=== PATIENT | male | born 1940 | race Caucasian/White ===

== ENCOUNTER 2023-03-20 14:28 | Outpatient (OUT) | payer MEDICARE, SELFPAY ==
[2023-03-20 14:46] LABS: Basophils Absolute Auto 0.1 10^3/uL (0.0-0.1); Basophils Percent Auto 0.7 % (0.2-2.0); Eosinophils Absolute Auto 0.4 10^3/uL (0.0-0.7); Eosinophils Percent Auto 5.5 % (0.9-7.0); Hematocrit 40.3 % (42.0-54.0); Hemoglobin 12.6 g/dL (14.0-18.0); Immature Granulocytes Abs Auto 0.02 10^3/uL (0.00-0.03); Immature Granulocytes Pct Auto 0.3 % (0.0-0.5); Lymphocytes Absolute Auto 2.4 10^3/uL (1.2-3.8); Lymphocytes Percent Auto 32.4 % (20.5-60.0); Mean Corpuscular HGB Conc 31.3 g/dL (29.9-35.2); Monocytes Absolute Auto 0.8 10^3/uL (0.3-0.8); Monocytes Percent Auto 11.2 % (1.7-12.0); Neutrophils Absolute Auto 3.7 10^3/uL (1.4-6.5); Neutrophils Percent Auto 49.9 % (43.0-75.0); Platelet Count 219 10^3/uL (150-450); Red Cell Distribution Width 14.2 % (11.0-15.0); White Blood Count 7.4 10^3/uL (4.0-11.0)
[2023-03-20 15:21] LABS: Alanine Aminotransferase 22 U/L (16-63); Alkaline Phosphatase 93 U/L (46-116); Aspartate Amino Transferase 12 U/L (15-37); BUN Creatinine Ratio 19.6; Bilirubin Total 0.3 mg/dL (0.2-1.0); Calcium 9.3 mg/dL (8.5-10.1); Chloride 105 mmol/L (98-107); Chol HDL Ratio 2.5; Cholesterol 154 mg/dL (<=200); Estimated GFR (African America 36 (>=60); Estimated GFR (Non-African Ame 30 (>=60); Globulin 4.1 g/dL; Glucose 93 mg/dL (74-106); HDL Cholesterol 61 mg/dL (40-60); Sodium 140 mmol/L (136-145); Thyroid Stimulating Hormone 2.141 uIU/mL (0.358-3.740); Total Protein 8.1 g/dL (6.4-8.2); Triglycerides 82 mg/dL (<=150); VLDL CHOLESTEROL 16.4 mg/dL
[2023-03-20 15:23] LABS: Free T4 1.01 ng/dL (0.76-1.46)
== END 2023-03-20 14:29 | disposition home or self-care (01) ==
PROVIDERS: PCP Family Medicine; Visit Provider Family Medicine
DX: K59.00 Constipation, unspecified (principal); Z91.81 History of falling; E78.5 Hyperlipidemia, unspecified; I50.30 Unspecified diastolic (congestive) heart failure; I11.0 Hypertensive heart disease with heart failure
CPT/HCPCS: 36415; 80053; 80061; 83880; 84439; 84443; 85025

== ENCOUNTER 2023-04-06 16:49 | Outpatient (OUT) | payer MEDICARE, SELFPAY ==
[2023-04-06 17:41] LABS: Anion Gap 12.9; BUN Creatinine Ratio 16.9; Calcium 9.2 mg/dL (8.5-10.1); Chloride 105 mmol/L (98-107); Estimated GFR (African America 29 (>=60); Estimated GFR (Non-African Ame 24 (>=60); Glucose 99 mg/dL (74-106); Potassium 4.9 mmol/L (3.5-5.1); Sodium 141 mmol/L (136-145)
== END 2023-04-06 16:50 | disposition home or self-care (01) ==
LOC: LAB 16:53
PROVIDERS: PCP Family Medicine; Visit Provider Family Medicine
DX: N28.9 Disorder of kidney and ureter, unspecified (principal)
CPT/HCPCS: 36415; 80048

== ENCOUNTER 2023-04-27 11:51 | Outpatient (OUT) | payer MEDICARE, SELFPAY ==
--- NOTE | 2023-04-27 12:22 | CT_ITS ---
The [address] [address] Patient Name: LEANNA NGUYỄN MRN: [id number] date: 1940 Sex: M Assigned Patient Location: LAB Current Patient Location: LAB Accession/Order Number: [id number] Exam Date: 04/27/2023 13:13 Report Date: 04/27/2023 14:56 At the request of: PIPE JEFFERS Procedure: CT abdomen wo con EXAMINATION: CT abdomen wo con HISTORY: Other Specific Disorder Of Kidney And Ureter N28.89 ; right renal mass COMPARISON: CT abdomen pelvis 07/03/2022, 06/17/2017 TECHNIQUE: Axial, Coronal, and Sagittal images were obtained without and/or with IV contrast as indicated by examination type. Dose reduction techniques were achieved by using automated exposure control and/or adjustment of mA and/or kV according to patient size and/or use of iterative reconstruction technique FINDINGS: LUNG BASES: No visible pulmonary or pleural disease. LIVER: Numerous calcifications throughout compatible with chronic granulomatous disease. BILIARY: No visible dilatation or calcification. PANCREAS: 2.3 cm mass versus complex cyst projecting from tip of tail of pancreas. SPLEEN: Numerous calcifications consistent with chronic granulomatous disease. ADRENALS: No mass or enlargement. KIDNEYS: No appreciable mass. No, obstruction or calcification. BOWEL/MESENTERY: No visible mass, obstruction, or bowel wall thickening. AORTA/VASCULAR: No aneurysm or dissection. RETROPERITONEUM: No mass or adenopathy. ABDOMINAL WALL: No mass or hernia. BONES: No bony lesion or fracture. OTHER: Negative. CT/CT abdomen wo con IMPRESSION: 1. Evaluation is limited by lack of IV contrast (patient had elevated creatinine). 2. No appreciable renal mass or urinary tract calculi. 3. Very slowly increasing size of a mass versus complex cyst arising from tip of tail of pancreas; nonspecific but this favors benign etiology (2.3 cm today, 2.2 cm 07/03/2022, 1.9 cm 06/17/2017). Electronically authenticated by: LEATHA GAVIRIA Date: 04/27/2023 14:56
[2023-04-27 12:47] LABS: Estimated GFR (African America 34 (>=60); Estimated GFR (Non-African Ame 28 (>=60)
== END 2023-04-27 11:52 | disposition home or self-care (01) ==
LOC: LAB 11:52
PROVIDERS: PCP Family Medicine; Visit Provider Family Medicine
DX: N28.89 Other specified disorders of kidney and ureter (principal); H90.41 Sensorineural hearing loss, unilateral, right ear, with unrestricted hearing on the contralateral side
CPT/HCPCS: 36415; 74150; 82565

== ENCOUNTER 2023-07-16 14:12 | Outpatient (OUT) | payer MEDICARE, SELFPAY ==
--- OUTSIDE RECORDS SUMMARY | 2023-07-16 14:19 | XMS_ITS | CCD ---
Author Name Unknown Address [address] [place] [address] Organization [facility] Care Team Providers Care Contract Negotiation Specialist Name Role Phone PHYSICIAN, DEFAULT Unavailable Unavailable PHYSICIAN, DEFAULT Unavailable Unavailable EVELIA, SUNJUK Unavailable Unavailable EVELIA, SUNJUK Unavailable Unavailable EVELIA, SUNJUK Unavailable Unavailable Pipe Hopkins~[phone] UNKNOWN Unavailable Unavailable Pipe Hopkins MD Primary Care Provider [phone] [place] Unavailable PIPE HOPKINS Primary Care Unavailable JODI BANERJEE Referring Unavailab DR PIPE Liang Consulting Unavailable FAWWAD, KAMARA H Admitting Unavailable FAWWAD, KAMARA H Attending Unavailable HODiana ., DR BETANCUR Primary Care Unavailable PAY ., DR HUDSON Consulting Unavailable MICHELLE BOO Consulting Unavailable STEPHEN ROUSE Consulting Unavailable ABIDA TOTH Consulting Unavailable KOKO ROMANO Consulting Unavailable FAWWAD, KAMARA H Consulting Unavailable BERNADETTE BEDOLLA Consulting Unavailable FAROOQ SIMPSON Consulting Unavailable AURY ., DR BETANCUR Attending Unavailable HOY ., DR BETANCUR Admitting Unavailable HOY ., DR BETANCUR Consulting Unavailable HOY ., DR BETANCUR Primary Care Unavailable ZILEONARD, DR LEATHA Workman Consulting Unavailable HOY ., DR BETANCUR Admitting Unavailable HOY ., DR BETANCUR Consulting Unavailable AURY ., DR BETANCUR Attending Unavailable HOY ., DR BETANCUR Primary Care Unavailable HOY ., DR BETANCUR Admitting Unavailable HOY ., DR BETANCUR Attending Unavailable HOY ., DR BETANCUR Consulting Unavailable AURY ., DR BETANCUR Primary Care Unavailable ZILEONARD, DR LEATHA Workman Consulting Unavailable HOY ., DR BETANCUR Attending Unavailable HOY ., DR BETANCUR Consulting Unavailable HOY ., DR BETANCUR Primary Care Unavailable HOY ., DR BETANCUR Admitting Unavailable HOY ., DR BETANCUR Attending Unavailable HOY ., DR BETANCUR Primary Care Unavailable HOY ., DR BETANCUR Admitting Unavailable HOY ., DR BETANCUR Attending Unavailable HOY ., DR BETANCUR Primary Care Unavailable HOY ., DR BETANCUR Admitting Unavailable HOY ., DR BETANCUR Attending Unavailable HOY ., DR BETANCUR Primary Care Unavailable HOY ., DR BETANCUR Admitting Unavailable Pipe Hopkins MD Primary Care Provider [phone] Gene[place] Lou Unavailable JODI BANERJEE Attending PIPE Rascon Primary Care Unavailable JODI BANERJEE Attending PIPE Rascon Primary Care Unavailable AYSE BARNES Attending Unavailable IRINEO BOSS Attending Unavailable AYSE BARNES Attending Unavailable Allergies Allergy Classification Reported Allergen(s) Allergy Type Date of Onset Reaction(s) Facility (2 sources) atorvastatin; Translations: [Lipitor] Drug Allergy [facility] Repository (5 sources) atorvastatin; Translations: [ATORVASTATIN CALCIUM] Drug Allergy 03-28-2014 [facility] (1 source) atorvastatin; Translations: [ATORVASTATIN] Drug Allergy 03-28-2014 [facility] Repository Medications Completed/Discontinued Medications Medication Drug Class(es) Dates Sig (Normalized) Sig (Original) Acetaminophen (3 sources) ACETAMINOPHEN (TYLENOL 8 HOUR ORAL) Take by mouth as needed. 0 Active Comment on above: Take by mouth as nee ded. aspirin 81 mg delayed release oral tablet (3 sources) Platelet Aggregation Inhibitor, Nonsteroidal Anti-inflammatory Drug Start: 06-02-2011 take 1 tablet by mouth once daily aspirin, enteric coated (ASPIRIN, ENTERIC COATED) 81 mg EC tablet Take 81 mg by mouth once daily. 0 06/02/2011 Active Comment on above: Take 81 mg by mouth once daily. celecoxib 100 mg oral capsule (2 sources) Nonsteroidal Anti-inflammatory Drug End: 03-23-2023 take 1 capsule by mouth once daily celecoxib (CELEBREX) 100 mg capsule Take 100 mg by mouth once daily. 0 03/23/2023 Discontinued Comment on above: Take 100 mg by mouth once daily. furosemide 20 mg oral tablet (3 sources) Loop Diuretic Start: 02-09-2019 take 1 tablet by mouth once daily furosemide (LASIX) 20 mg tablet Take 1 tablet by mouth once daily for 14 days. 14 tablet 0 02/09/2019 Active Comment on above: Take 1 tablet by shyla once daily for 14 days. levothyroxine sodium 0.1 mg oral tablet (3 sources) l-Thyroxine Start: 06-09-2011 take 1 tablet by mouth once daily levothyroxine (SYNTHROID) 100 mcg tablet Take 1 tablet by mouth once daily. 0 06/09/2011 Active Comment on above: Take 1 tablet by shyla once daily. liothyronine sodium 0.005 mg oral tablet (3 sources) l-Triiodothyronine take 1 tablet by mouth once daily liothyronine (CYTOMEL) 5 mcg tablet Take 5 mcg by mouth once daily. 0 Active Comment on above: Take 5 mcg by mouth once daily. multivitamin with minerals (MULTI-VIT 55 PLUS ORAL) (2 sources) take 1 tablet by mouth once daily multivitamin with minerals (MULTI-VIT 55 PLUS ORAL) Take 1 tablet by mouth once daily. 0 Active Comment on above: Take 1 tablet by shyla once daily. Problems Active Problems Problem Classification Problem Date Documented Da te Episodic/Chronic Cardiac dysrhythmias (4 sources) Ventricular premature depolarization; Translations: [Atrial premature depolarization] Onset: 09-22-2022 Chronic Cataract (1 source) Presence of intraocular lens; Translations: [PRESENCE OF INTRAOCULAR LENS] Onset: 07-14-2022 Chronic Chronic kidney disease (1 source) Chronic kidney disease, stage 4 (severe); Translations: [CKD STAGE 4 SEVERE] Onset: 07-14-2022 Chronic Chronic kidney disease (2 sources) Chronic kidney disease; Translations: [Chronic kidney disease, stage 3b] Onset: 12-25-2022 Congestive heart failure; nonhypertensive (5 sources) Unspecified diastolic (congestive) heart failure; Translations: [Chronic diastolic (congestive) heart failure] Onset: 06-07-2022 Chronic Coronary atherosclerosis and other heart disease (6 sources) Coronary arteriosclerosis; Translations: [Atherosclerotic heart disease of hughes coronary artery without angina pectoris] Onset: 05-27-2011 07-01-2021 Chronic Disorders of lipid metabolism (9 sources) Hyperlipidemia; Translations: [Hyperlipidemia, unspecified] Onset: 05-28-2011 Chronic Essential hypertension (9 sources) Hypertensive disorder; Translations: [Essential (primary) hypertension] Onset: 05-30-2011 Chronic Hypertension with complications and secondary hypertension (2 sources) Hypertensive chronic kidney disease with stage 1 through stage 4 chronic kidney disease, or unspecified chronic kidney disease; Translations: [Hypertensive heart disease with heart failure] Onset: 06-07-2022 Chronic Immunizations and screening for infectious disease (4 sources) Nonspecific reaction to cell mediated immunity measurement of gamma interferon antigen response without active tuberculosis; Translations: [NONSPC RXN C MED IMMU INF-G ANT RES] Onset: 10-27-2022 Episodic Nutritional deficiencies (3 sources) Vitamin D deficiency; Translations: [Vitamin D deficiency, unspecified] Onset: 06-07-2022 Chronic Occlusion or stenosis of precerebral arteries (2 sources) Occlusion and stenosis of bilateral carotid arteries; Translations: [Occlusion and stenosis of bilateral carotid arteries] Onset: 12-25-2022 Chronic Other nervous system disorders (1 source) Metabolic encephalopathy; Translations: [METABOLIC ENCEPHALOPATHY] Onset: 07-14-2022 Chronic Residual codes; unclassified (2 sources) Altered mental status; Translations: [Altered mental status, unspecified] Episodic Residual codes; unclassified (1 source) Amnesia; Translations: [Other amnesia] 03-23-2023 Episodic Thyroid disorders (4 sources) Hypothyroidism; Translations: [Hypothyroidism, unspecified] Onset: 05-28-2011 Chronic Unclassified (3 sources) SUMMARY Onset: 05-30-2011 Unclassified (1 source) CONTACT W/AND (SUSP) EXPOS COVID-19; Translations: [CONTACT W/AND (SUSP) EXPOS COVID-19] Onset: 07-14-2022 Past or Other Problems Problem Classification Problem Date Documented Date Episodic/Chronic Bacterial infection; unspecified site (2 sources) Bacteremia; Translations: [Other specified bacterial agents as the cause of diseases classified elsewhere] Onset: 07-14-2022 Episodic Coronary atherosclerosis and other heart disease (3 sources) Presence of aortocoronary bypass graft; Translations: [PRESENCE AORTOCORONARY BYPASS GRAFT] Onset: 07-14-2022 Episodic Deficiency and other anemia (1 source) Anemia, unspecified; Translations: [ANEMIA UNSPECIFIED] Onset: 06-07-2022 Episodic Diabetes mellitus without complication (1 source) Other abnormal glucose; Translations: [OTHER ABNORMAL GLUCOSE] Onset: 06-07-2022 Episodic E Codes: Fall (1 source) Unspecified fall, initial encounter; Translations: [UNSPECIFIED FALL INITIAL ENCOUNTER] Onset: 07-14-2022 Episodic E Codes: Place of occurrence (1 source) Unspecified place in unspecified non-institutional (private) residence as the place of occurrence of the external cause; Translations: [UNS PLAC UNS NON INST RES OCCUR EXT] Onset: 07-14-2022 Episodic Fluid and electrolyte disorders (1 source) Dehydration; Translations: [DEHYDRATION] Onset: 07-14-2022 Episodic Malaise and fatigue (4 sources) Weakness; Translations: [WEAKNESS] Onset: 07-08-2022 Episodic Menopausal disorders (1 source) Hormone replacement therapy; Translations: [HORMONE REPLACEMENT THERAPY] Onset: 07-14-2022 Episodic Noninfectious gastroenteritis (1 source) Noninfective gastroenteritis and colitis, unspecified; Translations: [NONINFECTIVE GE AND COLITIS UNS] Onset: 07-14-2022 Episodic Other aftercare (1 source) 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; Translations: [CORRECTION CURRENT USE OF ASPIRIN] Onset: 07-14-2022 Episodic Other aftercare (1 source) Other fdc (current) drug therapy; Translations: [OTH CORRECTION CURRENT DRUG THERAPY] Onset: 07-14-2022 Episodic Other connective tissue disease (3 sources) Rhabdomyolysis; Translations: [RHABDOMYOLYSIS] Onset: 07-01-2022 Episodic Other diseases of kidney and ureters (1 source) Disorder of kidney and ureter, unspecified; Translations: [DISORDER KIDNEY AND URETER UNS] Onset: 07-14-2022 Episodic Other eye disorders (1 source) Cataract extraction status, unspecified eye; Translations: [CATARACT EXTRACTION STATUS UNS EYE] Onset: 07-14-2022 Episodic Other injuries and conditions due to external causes (1 source) Hypothermia, initial encounter; Translations: [HYPOTHERMIA INITIAL ENCOUNTER] Onset: 07-14-2022 Episodic Other nervous system disorders (3 sources) Postoperative pain ; Translations: [Other acute postprocedural pain] Onset: 05-28-2011 Episodic Other screening for suspected conditions (not mental disorders or infectious disease) (5 sources) Cardiovascular stress test abnormal; Translations: [Abnormal result of other cardiovascular function study] Onset: 05-21-2011 07-01-2021 Episodic Residual codes; unclassified (5 sources) Altered mental status, unspecified; Translations: [Altered mental status, unspecified altered mental status type] Onset: 07-11-2022 Episodic Screening and history of mental health and substance abuse codes (1 source) Personal history of nicotine dependence; Translations: [PERSONAL HISTORY OF NICOTINE DEPEND] Onset: 07-14-2022 Episodic Results Test Name Value Interpretation Reference Range Facility Office Visiton 06-24-2023 Follow-up visit [id number] Leanna Nelson 1940 M Date Provider Department Center 06/24/2023 Jose-AYSE BARNES [facility] Family History Problem Relation Age of Onset Coronary artery disease Brother Heart attack Brother Heart failure Brother Other Brother Family Status - Relation Status Age at Brother Level of Service:47371 DE OFFICE/OUTPATIENT ESTABLISHED LOW MDM 20 MIN Normal [facility] CNOVon 03-23-2023 CNOV Office Visit (NEUSHF ) LEANNA NELSON ([id number]) 1940 M Date Time Provider Department 03/23/23 2:00 PM JODI BANERJEE During your visit today, we recorded the following information about you: Pulse Blood pressure 51/minute 151/68 Jodi Banerjee DO 03/23/2023 2:41 PM Signed [facility] [place] Follow-up visit March 23, 2023 HPI: Overall Mr. Nelson, who is accompanied by his brother and niece with his permission, states that he has been feeling I guess I'm feeling that I'm alive. He feels that his memory has better since our last encounter of 08/27/2022. He feels that this is secondary to his ability to state fact and answer questions. He notes easier time recalling older things. He still can have issues with being able to use his phone, checking messages, etc... He does not feel he has this issue. He may not answer his phone if he is doing something. He tends to flip questions back on the person asking them. Since our last encounter he has moved and low lives [facility]. He states he does not like it as he has limited input with family. His brother will come and take him out to dinner or to family events. Some of his other relatives do not come around that much. The activities they have at the facility he may take part in some things such as Bingo. They do no let him push the others in wheelchairs but he likes to help. He can play cards with some of the other residents. He himself does not feel he is forgetful. He does not feel he repeats himself, his brother states he does. He states he stays busy in some of the activities they have for him, in prayer, and some exercises. He states he is now out of therapy. He can watch traffic and others going by. His meals are provided to him and he states he eats regularly. He states he does not like the food. He has a refrigerator he can keep some things in. His protein intake. He feels he is sleeping well. He does not think he snores, gasps for air or stop breathing in his sleep he is aware of. His medications are given to him including his thyroid medication, needing to wait for them so can delay getting them until he eats. He states he is good about changing clothes on his own. He has been showering now on his own, at least twice a week. He feels he has his habit of doing things which others may think of in different ways. His niece and brother note he can be protective and likes his door locked. He has issues with security and privacy and issues with them coming in to get his garbage as he did not want to give it up. He was given money and they could not find it with question if he may have thrown out or not. They note he is very conscious of what he eats including not eating fried foods or food with sugar in them. He is dictating this to others worrying about other residents. There has been an issue with one of the resident's coming to his place and he locks the door. At times they may get in each other's faces if she did not want to do what he wants to when he wants to. They were called by management about this. He will argue much of the time with his brother with many things often thrown back at the person suggesting them, mainly his brother. He has seen by template checker in 01/2023 with suggestion that he get a hearing aide but he refuses. After his last encounter he has followed up with cardiology concerning his heart rate that was auscultated on last encounter. They checked his heart rhythm and thought it was appropriate. This was as via physician in [place]. They deny other changes to his health and/or medications except for the above since our last encounter. PAST MEDICAL HISTORY Diagnosis Date Arthritis Carotid stenosis Coronary artery disease Coronary atherosclerosis of unspecified type of vessel, hughes or graft 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 Dyslipidemia Hypertension Hypertension Hypothyroid Lumbar disc disease Unspecified hypothyroidism Hypothyroidism PAST SURGICAL HISTORY Procedure Laterality Date PAST SURGICAL HISTORY OF CABG times 6 left internal thoracic artery to the [id number] left anterior descending artery, reverse saphenous vein graft to the first diagonal artery, reverse saphenous vein graft to the first obtuse marginal artery, reverse saphenous vein graft to the second obtuse marginal artery, and inverted Y-graft to the posterolateral ventricular branch and the posterior descending artery. RMVL LENS MATERIAL PHACOFRAGMENTATION ASPIR Cataract Extraction Current Outpatient Medications on File Prior to Visit Medication Sig celecoxib (CELEBREX) 100 mg capsule Take 100 mg by mouth once daily. (Patient not taking: Reported on 08/27/2022) furosemide (LASIX) 20 mg tablet Take 1 tablet by mouth onc (more content not included)... Normal [facility] Fadia 03-23-2023 [facility] Telephone (NEUAV4) LEANNA NELSON ([id number]) 1940 [place] Date Time Provider Department 03/23/23 JODI BANERJEE4 During your visit today, we recorded the following information about you: Terri Santos 03/23/2023 3:31 PM Signed 03/23/2023 After visit Summary faxed to Dr Hopkins with confirmation received. PSS forgot to have pt complete release of information forms. This nurse has placed 2 copies in US mail for pt to complete and take to facility to release information to our office. POA was advised via voice message to send a ePrimeCarehart msg if he had any further question. Terri Santos Superintendent System Operation Allergies As of Date: 03/23/2023 Noted Allergy Reaction LIPITOR (ATORVASTATIN CALCIUM) 03/28/2014 4 - Hives Date Reviewed: 03/23/2023 Reviewed by: Terri Santos - Fully Assessed Prescriptions as of 03/23/2023 - multivitamin with minerals (MULTI-VIT 55 PLUS ORAL) Take 1 tablet by mouth once daily. - furosemide (LASIX) 20 mg tablet Take 1 tablet by mouth once daily for 14 days. - ACETAMINOPHEN (TYLENOL 8 HOUR ORAL) Take by mouth as needed. - aspirin, enteric coated (ASPIRIN, ENTERIC COATED) 81 mg EC tablet Take 81 mg by mouth once daily. - liothyronine (CYTOMEL) 5 mcg tablet Take 5 mcg by mouth once daily. - levothyroxine (SYNTHROID) 100 mcg tablet Take 1 tablet by mouth once daily. Meds Comments as of 05/27/2011: ASA LD 05/26 Problem List As Of Date 03/23/2023 Noted Resolved Abnormal cardiovascular stress test [R94.39] 05/21/2011 Pre-op testing [Z01.818] 05/27/2011 Coronary artery disease involving hughes heart *05/27/2011 Post-operative pain [G89.18] 05/28/2011 Stress hyperglycemia [R73.9] 05/28/2011 06/01/2011 Mechanically assisted ventilation [Z99.11] 05/28/2011 05/29/2011 Hypotension [I95.9] 05/28/2011 05/30/2011 Hypothyroid [E03.9] 05/28/2011 Hyperlipidemia [E78.5] 05/28/2011 SUMMARY [V999.95] 05/30/2011 Hypertension [I10] 05/30/2011 S/P CABG (coronary artery bypass graft), PARRA t*02/20/2020 Encounter Status:Closed by MARY JO SANTOSNE on 03/23/23 Normal [facility] Office Visiton 12-25-2022 Follow-up visit [id number] Leanna Nelson 1940 M Date Provider Department Center 12/25/2022 LucasAYSE BARNES [facility] Family History Problem Relation Age of Onset Coronary artery disease Brother Heart attack Brother Heart failure Brother Other Brother Family Status - Relation Status Age at Brother Level of Service:96438 DE OFFICE/OUTPATIENT ESTABLISHED MOD MDM 30-39 MIN Reason for Visit and Comments: Follow-up [584593] - 3 month follow up Normal [facility] CT CHEST WO CONon 10-27-2022 CT CHEST WO CON EXAMINATION: CT CHES T WO CON HISTORY: Cell-mediated immune reaction ; positive TB test COMPARISON: No relevant comparison available. TECHNIQUE: Axial, Coronal, and Sagittal images were created without the administration of IV contrast material. Dose reduction techniques were achieved by using automated exposure control and/or adjustment of mA and/or kV according to patient size and/or use of iterative reconstruction technique. FINDINGS: LUNGS: A few scattered calcified granulomas. No infiltrates or mass. Mild emphysematous changes. PLEURA: No mass, effusion, or pneumothorax. VASCULATURE: No abnormality. TITO: Calcified right hilar lymph nodes. MEDIASTINUM: No mass or adenopathy. CARDIAC: No enlargement or pericardial thickening. AORTA: No aneurysm or dissection. CHEST WALL: No mass or axillary adenopathy. BONES: No bone lesion or fracture. LIMITED ABDOMEN: Numerous tiny calcifications throughout the liver and spleen compatible with chronic granulomas. Limited images of the upper abdomen. OTHER: Negative. IMPRESSION: 1. No infiltrates, mass, or suspicious findings to suggest tuberculosis. 2. Chronic granulomatous disease. Electronically authenticated by: LEATHA GAVIRIA Date: 2022-10-27 10:00 Normal [facility] LIPID PROFILEon 09-24-2022 CHOL-HDL RATIO NORM SEE BELOW Normal [facility] Comment on above: Result Comment: 3.3 - 4.4 LOW RISK 4.4 - 7.1 AVERAGE RISK 7.1 - 11.0 MODERATE RISK >11.0 HIGH RISK Performed By: #### L IPID, CMP ####[facility] [id number] [place] [id number]. Aissatou Vásquez Cholesterol [Mass/Vol] 149 mg/dL Normal <=200 [facility] Comment on above: Performed By: #### L IPID, CMP ####[facility] [address] [place] [id number]. Aissatou Vásquez Cholesterol in HDL [Mass/Vol] 83 mg/dL Critically high 40-60 [facility] Comment on above: Performed By: #### L IPID, CMP ####[facility] [address] [place] [id number]. Aisstaou Vásquez Cholesterol in LDL [Mass/Vol] 58.6 mg/dL Normal [facility] Comment on above: Performed By: #### L IPID, CMP ####[facility] [address] [place] [address]Dr. Aissatou Vásquez Cholesterol.total/Cho lesterol in HDL [Mass ratio] 1.8 {ratio} Normal [facility] Comment on above: Performed By: #### L IPID, CMP ####[facility] [address] [place] [id number]. Aissatou Vásquez HDL NORMAL > or = 60 mg/dl - LO W CARDIOVASCULAR RISK <40 mg/dl - HIGH CARDIOVASCULAR RISK Normal [facility] Comment on above: Performed By: #### L IPID, CMP ####[facility] [address] [place] [address]Dr. Aissatou Vásquez LDL CALC NORMAL SEE BELOW Normal [facility] Comment on above: Result Comment: <100 mg/dl OPTIMAL 100 - 129 mg/dl NEAR OR ABOVE OPTIMAL 130 - 159 mg/dl BORDERLINE HIGH 160 - 189 mg/dl HIGH >190 mg/dl VERY HIGH Performed By: #### L IPID, CMP ####[facility] [address] [place], [place] [address]Dr. Aissatou Vásquez Triglyceride [Mass/Vol] 37 mg/dL Normal <=150 [facility] Comment on above: Performed By: #### L IPID, CMP ####[facility] [address] [place] [id number]. Aissatou Vásquez VLDL CALC 7.4 mg/dL Normal [facility] Comment on above: Performed By: #### L IPID, CMP ####[facility] [address] [place] [address]Dr. Aissatou Vásquez PROF 14(COMP METB)on 023 Albumin [Mass/Vol] 3.8 g/dL Normal 3.4-5.0 [facility] Comment on above: Performed By: #### L IPID, CMP ####[facility] [address] [place] [address]Dr. Aissatou Vásquez Albumin/Globulin [Mass ratio] 1.0 {ratio} Normal [facility] Comment on above: Performed By: #### L IPID, CMP ####[facility] [address] [place], [place] [address]Dr. Aissatou Vásquez ALP [Catalytic activity/Vol] 98 U/L Normal 46-116 [facility] Comment on above: Performed By: #### L IPID, CMP ####[facility] [address] [place], [place] [address]Dr. Aissatou Vásquez ALT [Catalytic activity/Vol] 25 U/L Normal 16-63 [facility] Comment on above: Performed By: #### L IPID, CMP ####[facility] [address] [place], [place] [address]Dr. Aissatou Vásquez Anion gap [Moles/Vol] 15.5 mmol/L Normal [facility] Comment on above: Performed By: #### L IPID, CMP ####[facility] [address] [place], [place] [address]Dr. Aissatou Vásquez AST [Catalytic activity/Vol] 21 U/L Normal 15-37 [facility] Comment on above: Performed By: #### L IPID, CMP ####[facility] [address] [place], [place] [address]Dr. Aissatou Vásquez Bilirubin [Mass/Vol] 0.5 mg/dL Normal 0.2-1.0 [facility] Comment on above: Performed By: #### L IPID, CMP ####[facility] [address] [place], [place] [address]Dr. Aissatou Vásquez Calcium [Mass/Vol] 9.5 mg/dL Normal 8.5-10.1 [facility] Comment on above: Performed By: #### L IPID, CMP ####[facility] [id number] [address]Dr. Aissatou Vásquez Chloride [Moles/Vol] 107 mmol/L Normal 98-107 [facility] Comment on above: Performed By: #### L IPID, CMP ####[facility] [id number] [address]Dr. Aissatou Vásquez CO2 [Moles/Vol] 23.0 mmol/L Normal 21.0-32.0 [facility] Comment on above: Performed By: #### L IPID, CMP ####[facility] [address] [place], [place] [address]Dr. Aissatou Vásquez Creatinine [Mass/Vol] 1.75 mg/dL Critically high 0.70-1.30 [facility] Comment on above: Performed By: #### L IPID, CMP ####[facility] [address] [place], [place] [address]Dr. Aissatou Vásquez EGFR-AF BURUNDIAN 45 mL/min/1.73m2 Critically low >=60 [facility] Comment on above: Performed By: #### L IPID, CMP ####[facility] [address] [place], [place] [address]Dr. Aissatou Vásquez EGFR-NON AF BURUNDIAN 37 mL/min/1.73m2 Critically low >=60 [facility] Comment on above: Performed By: #### L IPID, CMP ####[facility] [id number] [address]Dr. Aissatou Vásquez Globulin (S) [Mass/Vol] 3.7 g/dL Normal [facility] Comment on above: Performed By: #### L IPID, CMP ####[facility] [address] [address]Dr. Aissatou Vásquez Glucose [Mass/Vol] 83 mg/dL Normal 74-106 [facility] Comment on above: Performed By: #### L IPID, CMP ####[facility] [address] [address]Dr. Aissatou Vásquez Potassium [Moles/Vol] 4.5 mmol/L Normal 3.5-5.1 [facility] Comment on above: Performed By: #### L IPID, CMP ####[facility] [address] [address]Dr. Aissatou Vásquez Protein [Mass/Vol] 7.5 g/dL Normal 6.4-8.2 [facility] Comment on above: Performed By: #### L IPID, CMP ####[facility] [address] [address]Dr. Aissatou Vásquez Sodium [Moles/Vol] 141 mmol/L Normal 136-145 [facility] Comment on above: Performed By: #### L IPID, CMP ####[facility] [address] [address]Dr. Aissatou Vásquez Urea nitrogen [Mass/Vol] 46.0 mg/dL Critically high 7.0-18.0 [facility] Comment on above: Performed By: #### L IPID, CMP ####[facility] [address] [address]Dr. Aissatou Vásquez Urea nitrogen/Creatinine [Mass ratio] 26.3 mg/mg Normal [facility] Comment on above: Performed By: #### L IPID, CMP ####[facility] [address] [address]Dr. Aissatou Vásquez Office Visiton 09-22-2022 Follow-up visit [id number] Leanna Nelson 1940 M Date Provider Department Center 09/22/2022 Alexandrea-IRINEO BOSS [facility] No family history on file Level of Service:40767 DE OFFICE/OUTPATIENT ESTABLISHED MOD MDM 30-39 MIN Reason for Visit and Comments: office visit [Other] - brother made appt had appt with neuro thought they heard something when listening to heart. confirmed Normal [facility] 25(OH)D3 [facility]-ncon 2022 25-hydroxyvitamin D3 [Mass/Vol] 28.6 ng/mL Low 31.0-80.0 [facility] Comment on above: Order Comment: Speci men Type: BLOOD SPECIMEN Ordering Facility: [facility] Address: [address] [place] [address] Result Comment: Clas sification of 25 [place] Vitamin D status: Deficiency/Insufficiency: < or = 30 ng/ml. Sufficiency/Optimal Levels: 31-80 ng/mL Toxicity: > 100 ng/mL. Test performed by chemiluminescent immunoassay. Performed By: #### 1 989-3 #### [facility] CLIA [id number] [address] [id number] [address] [facility] CNOVon 08-27-2022 CNOV Office Visit (NEUAV4 ) LEANNA NELSON Torey ([id number]) 1940 M Date Time Provider Department 08/27/22 1:00 PM JODI BANERJEE4 During your visit today, we recorded the following information about you: Pulse Blood pressure 69/minute 156/70 Jodi Banerjee DO 08/27/2022 2:35 PM Addendum [facility] [place] New Patient Consultation August 27, 2022 HPI: Mr. Nelson, who is accompanied by his brother and niece, presents today secondary to issues of mental status changes. He states that he himself is unaware of why he is here. His brother and niece state the issue is more of forgetfulness. His birthday was last week and they told him ahead of time they would come to pick him up the next day but a few minutes after a phone call to tell him they'd get him the following day. He has had this issue over several months or longer, worse in the last few months. He calls his brother confusing replays of games versus actual games. He can have issues with being able to use his phone, checking messages, etc... He may not answer his phone if he is doing something. They note that at times it may take several hours to reach him. He himself does not feel forgetful. He does not feel he repeats himself, his brother states he does. He does not feel he has a hearing issues but has not had it tested. He lives in a care facility at the moment and they are looking at assisted living. Prior to a fall in 06/2022 he states he tripped but there was question of low heart rate and he was on the flood for several hours before they came over. They found him with his pants down in the hallway. There are no plans for him to go home. They note he was told that he could not drive after having evaluation that he failed. He continued to drive despite being told not to by his doctor. His brother would take him to the grocery store but would not get much on his own unless someone went around with him. He could call family stating he is hungry often as out of food. While he was at home on his own, last end of 06/2022. He was eating as via microwave or going out. He did not use the stove or burners. He feels he sleeps well. He does not think he snores or gasp for air or stop breathing in his sleep he is aware of. In regards to his medications he takes two tylenol twice a day. He was not taking other medications regularly but denies he was forgetting to take his thyroid medication correctly. His family question and think there was some confusion about taking his medications. He switched himself off of aspirin to Alero a fast acting aspirin. Family had concern over tylenol use and questioned he may have been taking multiple tylenol multiple times a day. He states he is good about changing clothes. He has not been showering on his own even though at the facility he is at they take him down, but he has only showered once on his own while there. They have been working with hospice social worker at the facility he is at but questioning level of care he needs. They are not aware of any memory issues they are aware of. He denies personal history of head injury, stroke, or seizures. He denies he has been on medication for memory before. He states the reason he fell in 06/2022 was that he was watching television he drank two small bottles of wine rather than one and was tipsy crossing his legs causing his fall. Afterwards he was not able to get back up on his own. PAST MEDICAL HISTORY Diagnosis Date Arthritis Carotid stenosis Coronary artery disease Coronary atherosclerosis of unspecified type of vessel, hughes or graft 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 Dyslipidemia Hypertension Hypertension Hypothyroid Lumbar disc disease Unspecified hypothyroidism Hypothyroidism PAST SURGICAL HISTORY Procedure Laterality Date PAST SURGICAL HISTORY OF CABG times 6 left internal thoracic artery to the [id number] left anterior descending artery, reverse saphenous vein graft to the first diagonal artery, reverse saphenous vein graft to the first obtuse marginal artery, reverse saphenous vein graft to the second obtuse marginal artery, and inverted Y-graft to the posterolateral ventricular branch and the posterior descending artery. RMVL LENS MATERIAL PHACOFRAGMENTATION ASPIR Cataract Extraction Current Outpatient Medications on File Prior to Visit Medication Sig ACETAMINOPHEN (TYLENOL 8 HOUR ORAL) Take by mouth as needed. aspirin, enteric coated (ASPIRIN, ENTERIC COATED) 81 mg EC tablet Take 81 mg by mouth once daily. liothyronine (CYTOMEL) 5 mcg tablet Take 5 mcg by mouth once daily. levothyroxine (SYNTHROID) 100 mcg tablet Take 1 tablet by mouth once daily. celecoxib (CELEBREX) 100 mg capsule Take 100 mg by mouth once daily. (Patient not taking: Reported on 08/07 (more content not included)... Normal [facility] Reagin and Treponema pallidu m IgG and IgM [Interp]on 08-27-2022 SYPHILIS INTERPRETATION Cannot exclude recent Treponemal infection if specimen collected within 7-10 days after appearance of suspect lesions or 2-3 weeks after an exposure. Clinical correlation is required. Normal [facility] Comment on above: Order Comment: Speci men Type: BLOOD SPECIMEN Ordering Facility: [facility] Address: [address] [place] [address] Performed By: #### 7 3752-8 #### [facility] CLIA [id number] [id number] [place] [address] [place] T. pallidum IgG+IgM IA Ql (S) Non-Reactive Normal Nonreactive [facility] Comment on above: Order Comment: Speci men Type: BLOOD SPECIMEN Ordering Facility: [facility] Address: [address] [place], [place] [id number] Performed By: #### 7 3752-8 #### [facility] CLIA [id number] [id number] [place] [address] [place] CREATININEon 07-11-2022 Creatinine [Mass/Vol] 2.09 mg/dL Critically high 0.70-1.30 [facility] Comment on above: Performed By: #### C ADAM #### [facility] [address] [address] [address] Aissatou Vásquez EGFR-AF BURUNDIAN 37 mL/min/1.73m2 Critically low >=60 [facility] Comment on above: Performed By: #### C ADAM #### [facility] [address] [address] [address] Aissatou Vásquez EGFR-NON AF BURUNDIAN 30 mL/min/1.73m2 Critically low >=60 [facility] Comment on above: Performed By: #### C ADAM #### [facility] [address] [address] [address] Aissatou Vásquez MRI BRAIN WO CONon MRI BRAIN WO CON EXAMINATION: MRI BRAIN WO CON, 07/11/2022 1:23 PM EST HISTORY: Altered mental status ; fell one week ago COMPARISON: MRI brain 04/18/2021, CT head without contrast 07/01/2022 TECHNIQUE: MRI of the brain was performed without IV contrast. FINDINGS: CEREBRUM: Increased T2 signal within the periventricular and subcortical deep white matter favoring chronic small vessel ischemic changes. No edema, hemorrhage, mass, acute infarction, or inappropriate atrophy. CEREBELLUM: No edema, hemorrhage, mass, acute infarction, or inappropriate atrophy. BRAINSTEM: No edema, hemorrhage, mass, acute infarction, or inappropriate atrophy. CSF SPACES: Ventricles, cisterns, and sulci are appropriate for age. No hydrocephalus, subarachnoid hemorrhage, or mass. SKULL: No mass or other significant visible lesion. SINUSES: Limited views demonstrate no significant mucosal thickening or fluid. ORBITS: Limited views are unremarkable. OTHER: Negative. IMPRESSION: 1. No intracranial hemorrhage, mass, or acute findings to account for patient's symptoms. 2. Age consistent atrophy and chronic small vessel ischemic changes; not significantly changed since prior MRI study. Electronically authenticated by: LEATHA GAVIRIA Date: 2022-07-11 15:11 Normal [facility] CULTURE BLOODon 07-10-2022 Microscopic examination of blood, culture Culture Observations: Pediatric bottle positive; Called BCID: Enterobacterales to Linda Flores RN Isolate 1 Pantoea agglomerans Growth of ORGANISM 1 Pantoea agglomerans ANTIBIOTIC M.I.C RX STATUS Amoxicillin/Clavulani c Acid S P Cefepime S P Ceftriaxone S P Cefuroxime I P Ciprofloxacin S P Gentamicin S P Levofloxacin S P Meropenem S P Tetracycline S P Tobramycin S P Normal [facility] Comment on above: Performed By: #### B LDCX2 ####[facility] [address] [address]Dr. Aissatou Vásquez CBC AUTO DIFFon 07-04-2022 BASO # 0.0 103/ul Normal 0.0-0.1 [facility] Comment on above: Performed By: #### L IVER, BMP, HSTROPN #### [facility] [address] [address] [address] Aissatou Vásquez Basophils/100 WBC (Bld) 0.3 % Normal 0.2-2.0 [facility] Comment on above: Performed By: #### L IVER, BMP, HSTROPN #### [facility] [address] [address] [address] Aissatou Vásquez EO # 0.0 103/ul Normal 0.0-0.7 [facility] Comment on above: Performed By: #### L IVER, BMP, HSTROPN #### [facility] [address] [address] [address] Aissatou Vásquez Eosinophils/100 WBC (Bld) 0.6 % Critically low 0.9-7.0 [facility] Comment on above: Performed By: #### L IVER, BMP, HSTROPN #### [facility] [address] [address] [address] Aissatou Vásquez Erythrocyte distribution width (RBC) [Ratio] 13.7 % Normal 11.0-15.0 [facility] Comment on above: Performed By: #### L IVER, BMP, HSTROPN #### [facility] [address] [place] [address] Dr. Aissatou Vásquez Hematocrit (Bld) [Volume fraction] 34.2 % Critically low 42.0-54.0 [facility] Comment on above: Performed By: #### L IVER, BMP, HSTROPN #### [facility] [address] [place] [address] Dr. Aissatou Vásquez Hemoglobin (Bld) [Mass/Vol] 10.7 g/dL Critically low 14.0-18.0 [facility] Comment on above: Performed By: #### L IVER, BMP, HSTROPN #### [facility] [address] [place] [address] Dr. Aissatou Vásquez IG # 0.02 10e3/ul Normal 0.00-0.03 [facility] Comment on above: Performed By: #### L IVER, BMP, HSTROPN #### [facility] [address] [place] [address] Dr. Aissatou Vásquez IG % 0.3 % Normal 0.0-0.5 [facility] Comment on above: Performed By: #### L IVER, BMP, HSTROPN #### [facility] [address] [place] [address] Dr. Aissatou Vásquez LYMPH # 1.7 103/ul Normal 1.2-3.8 [facility] Comment on above: Performed By: #### L IVER, BMP, HSTROPN #### [facility] [address] [place] [address] Dr. Aissatou Vásquez Lymphocytes/100 WBC (Bld) 25.6 % Normal 20.5-60.0 [facility] Comment on above: Performed By: #### L IVER, BMP, HSTROPN #### [facility] [address] [place] [address] Dr. Aissatou Vásquez MANUAL DIFF REQ NO Normal [facility] Comment on above: Performed By: #### L IVER, BMP, HSTROPN #### [facility] [address] [address] [address] Aissatou Vásquez MCH (RBC) [Entitic mass] 29.6 pg Normal 25.9-34.0 [facility] Comment on above: Performed By: #### L IVER, BMP, HSTROPN #### [facility] [address] [place] [address] Dr. Aissatou Vásquez MCHC (RBC) [Mass/Vol] 31.3 g/dL Normal 29.9-35.2 [facility] Comment on above: Performed By: #### L IVER, BMP, HSTROPN #### [facility] [address] [place] [address] Dr. Aissatou Vásquez MCV (RBC) [Entitic vol] 94.5 fL Critically high 80.0-94.0 [facility] Comment on above: Performed By: #### L IVER, BMP, HSTROPN #### [facility] [address] [place] [address] Dr. Aissatou Vásquez MONO # 0.7 103/ul Normal 0.3-0.8 [facility] Comment on above: Performed By: #### L IVER, BMP, HSTROPN #### [facility] [address] [place] [address] Dr. Aissatou Vásquez Monocytes/100 WBC (Bld) 11.2 % Normal 1.7-12.0 [facility] Comment on above: Performed By: #### L IVER, BMP, HSTROPN #### [facility] [address] [place] [address] Dr. Aissatou Vásquez NEUT # 4.0 103/ul Normal 1.4-6.5 [facility] Comment on above: Performed By: #### L IVER, BMP, HSTROPN #### [facility] [address] [place] [address] Dr. Aissatou Vásquez Neutrophils/100 WBC (Bld) 62.0 % Normal 43.0-75.0 [facility] Comment on above: Performed By: #### L IVER, BMP, HSTROPN #### [facility] [address] [place] [address] Dr. Aissatou Vásquez Platelet mean volume (Bld) [Entitic vol] 10.4 fL Normal 9.5-13.5 [facility] Comment on above: Performed By: #### L IVER, BMP, HSTROPN #### [facility] [address] [place] [address] Dr. Aissatou Vásquez PLT 134 103/ul Critically low 150-450 [facility] Comment on above: Performed By: #### L IVER, BMP, HSTROPN #### [facility] [address] [place] [address] Dr. Aissatou Vásquez RBC 3.62 106/ul Critically low 4.70-6.10 [facility] Comment on above: Performed By: #### L IVER, BMP, HSTROPN #### [facility] [address] [place] [address] Dr. Aissatou Vásquez WBC 6.5 103/ul Normal 4.0-11.0 [facility] Comment on above: Performed By: #### L IVFRANTZ, BMP, HSTROPN #### [facility] [address] [place] [address] Dr. Aissatou Vásquez CPKon 07-04-2022 CK [Catalytic activity/Vol] 149 U/L Normal 39-308 [facility] Comment on above: Performed By: #### L IVER, BMP, HSTROPN #### [facility] [address] [place] [address] Dr. Aissatou Vásquez MAGNESIUMon 07-04-2022 Magnesium [Mass/Vol] 1.7 mg/dL Critically low 1.8-2.4 [facility] Comment on above: Performed By: #### L IVER, BMP, HSTROPN #### [facility] [address] [place] [address] Dr. Aissatou Vásquez PHOSPHORUSon 07-04-2022 Phosphate [Mass/Vol] 3.6 mg/dL Normal 2.6-4.7 [facility] Comment on above: Performed By: #### L IVER, BMP, HSTROPN #### [facility] [address] [address] [address] Aissatou Vásquez PROF 14(COMP METB)on 022 Albumin [Mass/Vol] 2.8 g/dL Critically low 3.4-5.0 [facility] Comment on above: Performed By: #### L IVER, BMP, HSTROPN #### [facility] [address] [place] [address] Dr. Aissatou Vásquez Albumin/Globulin [Mass ratio] 0.9 {ratio} Normal [facility] Comment on above: Performed By: #### L IVER, BMP, HSTROPN #### [facility] [address] [place] [address] Dr. Aissatou Vásquez ALP [Catalytic activity/Vol] 86 U/L Normal 46-116 [facility] Comment on above: Performed By: #### L IVER, BMP, HSTROPN #### [facility] [address] [place] [address] Dr. Aissatou Vásquez ALT [Catalytic activity/Vol] 50 U/L Normal 16-63 [facility] Comment on above: Performed By: #### L IVER, BMP, HSTROPN #### [facility] [address] [place] [address] Dr. Aissatou Vásquez Anion gap [Moles/Vol] 11.6 mmol/L Normal [facility] Comment on above: Performed By: #### L IVER, BMP, HSTROPN #### [facility] [address] [place] [address] Dr. Aissatou Vásquez AST [Catalytic activity/Vol] 41 U/L Critically high 15-37 [facility] Comment on above: Performed By: #### L IVER, BMP, HSTROPN #### [facility] [address] [place] [address] Dr. Aissatou Vásquez Bilirubin [Mass/Vol] 0.4 mg/dL Normal 0.2-1.0 [facility] Comment on above: Performed By: #### L IVER, BMP, HSTROPN #### [facility] [address] [place] [address] Dr. Aissatou Vásquez Calcium [Mass/Vol] 8.7 mg/dL Normal 8.5-10.1 [facility] Comment on above: Performed By: #### L IVER, BMP, HSTROPN #### [facility] [address] [place] [address] Dr. Aissatou Vásquez Chloride [Moles/Vol] 106 mmol/L Normal 98-107 [facility] Comment on above: Performed By: #### L IVER, BMP, HSTROPN #### [facility] [address] [place] [address] Dr. Aissatou Vásquez CO2 [Moles/Vol] 27.0 mmol/L Normal 21.0-32.0 [facility] Comment on above: Performed By: #### L IVER, BMP, HSTROPN #### [facility] [address] [place] [address] Dr. Aissatou Vásquez Creatinine [Mass/Vol] 1.99 mg/dL Critically high 0.70-1.30 [facility] Comment on above: Performed By: #### L IVER, BMP, HSTROPN #### [facility] [address] [place] [address] Dr. Aissatou Vásquez EGFR-AF BURUNDIAN 39 mL/min/1.73m2 Critically low >=60 [facility] Comment on above: Performed By: #### L IVER, BMP, HSTROPN #### [facility] [address] [place] [address] Dr. Aissatou Vásquez EGFR-NON AF BURUNDIAN 32 mL/min/1.73m2 Critically low >=60 [facility] Comment on above: Performed By: #### L IVER, BMP, HSTROPN #### [facility] [address] [place] [address] Dr. Aissatou Vásquez Globulin (S) [Mass/Vol] 3.1 g/dL Normal [facility] Comment on above: Performed By: #### L IVER, BMP, HSTROPN #### [facility] [address] [address] [address] Aissatou Vásquez Glucose [Mass/Vol] 93 mg/dL Normal 74-106 [facility] Comment on above: Performed By: #### L IVER, BMP, HSTROPN #### [facility] [address] [address] [address] Aissatou Vásquez Potassium [Moles/Vol] 4.6 mmol/L Normal 3.5-5.1 [facility] Comment on above: Performed By: #### L IVER, BMP, HSTROPN #### [facility] [address] [address] [address] Aissatou Vásquez Protein [Mass/Vol] 5.9 g/dL Critically low 6.4-8.2 [facility] Comment on above: Performed By: #### L IVER, BMP, HSTROPN #### [facility] [address] [place] [address] Dr. Aissatou Vásquez Sodium [Moles/Vol] 140 mmol/L Normal 136-145 [facility] Comment on above: Performed By: #### L IVER, BMP, HSTROPN #### [facility] [address] [place] [address] Dr. Aissatou Vásquez Urea nitrogen [Mass/Vol] 50.0 mg/dL Critically high 7.0-18.0 [facility] Comment on above: Performed By: #### L IVER, BMP, HSTROPN #### [facility] [address] [address] [address] Aissatou Vásquez Urea nitrogen/Creatinine [Mass ratio] 25.1 mg/mg Normal [facility] Comment on above: Performed By: #### L IVER, BMP, HSTROPN #### [facility] [address] [place] [address] Dr. Aissatou Vásquez PROTIMEon 07-04-2022 INR Coag (PPP) [Relative time] 1.05 {INR} Normal [facility] Comment on above: Performed By: #### C ADAM #### [facility] [address] [place] [address] Dr. Aissatou Vásquez INR GUIDELINES SEE BELOW Normal [facility] [facility] Comment on above: Result Comment: ELISABETH RED INR: 2.0 - 3.0 CONDITIONS NOT LISTED BELOW 2.5 - 3.5 FOR PROSTHETIC HEART VALVE REPLACEMENT 2.5 - 3.5 RECURRENT THROMBOSIS Performed By: #### C ADAM #### [facility] [address] [place] [address] Dr. Aissatou Vásquez PT Coag (PPP) [Time] 11.3 s Normal 9.0-11.6 [facility] Comment on above: Performed By: #### C ADAM #### [facility] [address] [place] [address] Dr. Aissatou Vásquez CBC AUTO DIFFon 07-03-2022 BASO # 0.0 103/ul Normal 0.0-0.1 [facility] Comment on above: Performed By: #### L IVER, BMP, HSTROPN #### [facility] [address] [place] [address] Dr. Aissatou Vásquez Basophils/100 WBC (Bld) 0.3 % Normal 0.2-2.0 [facility] Comment on above: Performed By: #### L IVER, BMP, HSTROPN #### [facility] [address] [place] [address] Dr. Aissatou Vásquez EO # 0.0 103/ul Normal 0.0-0.7 [facility] Comment on above: Performed By: #### L IVER, BMP, HSTROPN #### [facility] [address] [place] [address] Dr. Aissatou Vásquez Eosinophils/100 WBC (Bld) 0.3 % Critically low 0.9-7.0 [facility] Comment on above: Performed By: #### L IVER, BMP, HSTROPN #### [facility] [address] [place] [address] Dr. Aissatou Vásquez Erythrocyte distribution width (RBC) [Ratio] 13.8 % Normal 11.0-15.0 [facility] Comment on above: Performed By: #### L IVER, BMP, HSTROPN #### [facility] [address] [place] [address] Dr. Aissatou Vásquez Hematocrit (Bld) [Volume fraction] 31.7 % Critically low 42.0-54.0 [facility] Comment on above: Performed By: #### L IVER, BMP, HSTROPN #### [facility] [address] [place] [address] Dr. Aissatou Vásquez Hemoglobin (Bld) [Mass/Vol] 10.2 g/dL Critically low 14.0-18.0 [facility] Comment on above: Performed By: #### L IVER, BMP, HSTROPN #### [facility] [address] [place] [address] Dr. Aissatou Vásquez IG # 0.02 10e3/ul Normal 0.00-0.03 [facility] Comment on above: Performed By: #### L IVER, BMP, HSTROPN #### [facility] [address] [place] [address] Dr. Aissatou Vásquez IG % 0.3 % Normal 0.0-0.5 [facility] Comment on above: Performed By: #### L IVER, BMP, HSTROPN #### [facility] [address] [place] [address] Dr. Aissatou Vásquez LYMPH # 1.5 103/ul Normal 1.2-3.8 [facility] Comment on above: Performed By: #### L IVER, BMP, HSTROPN #### [facility] [address] [place] [address] Dr. Aissatou Vásquez Lymphocytes/100 WBC (Bld) 20.3 % Critically low 20.5-60.0 [facility] Comment on above: Performed By: #### L IVER, BMP, HSTROPN #### [facility] [address] [place] [address] Dr. Aissatou Vásquez MANUAL DIFF REQ NO Normal [facility] Comment on above: Performed By: #### L IVER, BMP, HSTROPN #### [facility] [address] [place] [address] Dr. Aissatou Vásquez MCH (RBC) [Entitic mass] 30.3 pg Normal 25.9-34.0 [facility] Comment on above: Performed By: #### L IVER, BMP, HSTROPN #### [facility] [address] [place] [address] Dr. Aissatou Vásquez MCHC (RBC) [Mass/Vol] 32.2 g/dL Normal 29.9-35.2 [facility] Comment on above: Performed By: #### L IVER, BMP, HSTROPN #### [facility] [address] [place] [address] Dr. Aissatou Vásquez MCV (RBC) [Entitic vol] 94.1 fL Critically high 80.0-94.0 [facility] Comment on above: Performed By: #### L IVER, BMP, HSTROPN #### [facility] [address] [place] [address] Dr. Aissatou Vásquez MONO # 0.7 103/ul Normal 0.3-0.8 [facility] Comment on above: Performed By: #### L IVER, BMP, HSTROPN #### [facility] [address] [place] [address] Dr. Aissatou Vásquez Monocytes/100 WBC (Bld) 9.9 % Normal 1.7-12.0 [facility] Comment on above: Performed By: #### L IVER, BMP, HSTROPN #### [facility] [address] [place] [address] Dr. Aissatou Vásquez NEUT # 4.9 103/ul Normal 1.4-6.5 [facility] Comment on above: Performed By: #### L IVER, BMP, HSTROPN #### [facility] [address] [place] [address] Dr. Aissatou Vásquez Neutrophils/100 WBC (Bld) 68.9 % Normal 43.0-75.0 [facility] Comment on above: Performed By: #### L IVER, BMP, HSTROPN #### [facility] [address] [place] [address] Dr. Aissatou Vásquez Platelet mean volume (Bld) [Entitic vol] 10.7 fL Normal 9.5-13.5 [facility] Comment on above: Performed By: #### L IVDHARA LANDRY, HSTROPN #### [facility] [address] [address] [address] Aissatou Vásquez PLT 141 103/ul Critically low 150-450 [facility] Comment on above: Performed By: #### L IVER BMP, HSTROPN #### [facility] [address] [address] [address] Aissatou Vásquez RBC 3.37 106/ul Critically low 4.70-6.10 [facility] Comment on above: Performed By: #### L IVDHARA LANDRY, HSTROPN #### [facility] [address] [place] [address] Dr. Aissatou Vásquez WBC 7.1 103/ul Normal 4.0-11.0 [facility] Comment on above: Performed By: #### L DHARA WAITE, HSTROPN #### [facility] [address] [address] [address] Aissatou Vásquez CPKon 07-03-2022 CK [Catalytic activity/Vol] 331 U/L Critically high 39-308 [facility] Comment on above: Performed By: #### L IVDHARA LANDRY, HSTROPN #### [facility] [address] [place] [address]atou Vás[address] ABD/PELVIS WO CONon 07-03 CT ABD/PELVIS WO CON EXAMINATION: CT ABD/PELVIS WO CON, 07/03/2022, 7:00 AM EST. HISTORY: UNSPECIFIED ABDOMINAL PAIN. COMPARISON: Abdominal and pelvic CT 08/16/2021. TECHNIQUE: CT scan of the abdomen and pelvis was performed without IV contrast. CT dose reduction technique was used, including Automated Exposure Control. FINDINGS: The visualized lung bases demonstrate mild bibasilar subsegmental atelectasis. No pleural or pericardial fluid. No adrenal mass or retroperitoneal lymphadenopathy. No evidence of obstructive uropathy. There are scattered calcified granulomas throughout the liver and spleen. No evidence of biliary or pancreatic ductal dilatation. Severe aortic atherosclerosis without aneurysm. There is no evidence of bowel obstruction, pneumatosis, or pneumoperitoneum. Irregular wall thickening of the cecum extending to the level of the ileocecal valve is noted in the right lower quadrant. There is no pelvic adenopathy or ascites. Shell catheter is present in the bladder. The prostate is not significantly enlarged. IMPRESSION: 1. Irregular wall thickening of the cecum extending to the level of the ileocecal valve. CT is not a sensitive or specific modality for evaluation of bowel mucosal lesions. This could reflect artifact from stool, although more aggressive etiologies including colonic malignancy are on the differential and today's finding should be correlated with colonoscopy. There is no indication of bowel obstruction or pathologic lymphadenopathy. 2. Severe aortic atherosclerosis. 3. Bibasilar atelectasis. Electronically authenticated by: STEPHEN ROUSE Date: 2022-07-03 11:06 Normal [facility] CULTURE BLOODon 07-03-2022 Microscopic examination of blood, culture Culture Observations: NO GROWTH AT 5 DAYS. Normal [facility] Comment on above: Performed By: #### Uri [email or web address] ####[facility] [address] [address]DrBud Vásquez Microscopic examination of blood, culture Culture Observations: NO GROWTH AT 5 DAYS. Normal [facility] Comment on above: Performed By: #### Uri [email or web address] ####[facility] [address] [address]Dr. Aissatou Vásquez MAGNESIUMon 07-03-2022 Magnesium [Mass/Vol] 1.8 mg/dL Normal 1.8-2.4 [facility] Comment on above: Performed By: #### L DHARA WAITE, HSTROPN #### [facility] [address] [address] [address] Aisstaou Vásquez PHOSPHORUSon 07-03-2022 Phosphate [Mass/Vol] 4.0 mg/dL Normal 2.6-4.7 [facility] Comment on above: Performed By: #### DHARA KONG, HSTROPN #### [facility] [address] [address] [address] Aissatou Vásquez POINT OF CARE GLUCOSEon 06-06 Glucose [Mass/Vol] 77 mg/dL Normal 74-106 [facility] Comment on above: Performed By: #### C ADAM #### [facility] [address] [address] [address] Aissatou Vásuqez PROF 14(COMP METB)on 022 Albumin [Mass/Vol] 2.6 g/dL Critically low 3.4-5.0 [facility] Comment on above: Performed By: #### L IVER BMP, HSTROPN #### [facility] [address] [place] [address] Dr. Aissatou Vásquez Albumin/Globulin [Mass ratio] 0.9 {ratio} Normal [facility] Comment on above: Performed By: #### L IVFRANTZ BMP, HSTROPN #### [facility] [address] [place] [address] Dr. Aissatou Vásquez ALP [Catalytic activity/Vol] 81 U/L Normal 46-116 [facility] Comment on above: Performed By: #### L IVFRANTZ BMP, HSTROPN #### [facility] [address] [place] [address] Dr. Aissatou Vásquez ALT [Catalytic activity/Vol] 46 U/L Normal 16-63 [facility] Comment on above: Performed By: #### L IVFRANTZ BMP, HSTROPN #### [facility] [address] [place] [address] Dr. Aissatou Vásquez Anion gap [Moles/Vol] 11.9 mmol/L Normal [facility] Comment on above: Performed By: #### L IVER, BMP, HSTROPN #### [facility] [address] [place] [address] Dr. Aissatou Vásquez AST [Catalytic activity/Vol] 45 U/L Critically high 15-37 [facility] Comment on above: Performed By: #### L IVFRANTZ BMP, HSTROPN #### [facility] [address] [place] [address] Dr. Aissatou Vásquez Bilirubin [Mass/Vol] 0.2 mg/dL Normal 0.2-1.0 [facility] Comment on above: Performed By: #### L IVER, BMP, HSTROPN #### [facility] [address] [place] [address] Dr. Aissatou Vásquez Calcium [Mass/Vol] 8.5 mg/dL Normal 8.5-10.1 [facility] Comment on above: Performed By: #### L IVER, BMP, HSTROPN #### [facility] [address] [place] [address] Dr. Aissatou Vásquez Chloride [Moles/Vol] 108 mmol/L Critically high 98-107 [facility] Comment on above: Performed By: #### L IVER, BMP, HSTROPN #### [facility] [address] [place] [address] Dr. Aissatou Vásquez CO2 [Moles/Vol] 25.9 mmol/L Normal 21.0-32.0 [facility] Comment on above: Performed By: #### L IVER, BMP, HSTROPN #### [facility] [address] [place] [address] Dr. Aissatou Vásquez Creatinine [Mass/Vol] 2.34 mg/dL Critically high 0.70-1.30 [facility] Comment on above: Performed By: #### L IVER, BMP, HSTROPN #### [facility] [address] [place] [address] Dr. Aissatou Vásquez EGFR-AF BURUNDIAN 32 mL/min/1.73m2 Critically low >=60 [facility] Comment on above: Performed By: #### L IVER, BMP, HSTROPN #### [facility] [address] [place] [address] Dr. Aissatou Vásquez EGFR-NON AF BURUNDIAN 27 mL/min/1.73m2 Critically low >=60 [facility] Comment on above: Performed By: #### L IVER, BMP, HSTROPN #### [facility] [address] [place] [address] Dr. Aissatou Vásquez Globulin (S) [Mass/Vol] 3.0 g/dL Normal [facility] Comment on above: Performed By: #### L IVER, BMP, HSTROPN #### [facility] [address] [address] [address] Aissatou Vásquez Glucose [Mass/Vol] 93 mg/dL Normal 74-106 [facility] Comment on above: Performed By: #### L IVER, BMP, HSTROPN #### [facility] [address] [place] [address] Dr. Aissatou Vásquez Potassium [Moles/Vol] 4.8 mmol/L Normal 3.5-5.1 [facility] Comment on above: Performed By: #### L IVER, BMP, HSTROPN #### [facility] [address] [place] [address] Dr. Aissatou Vásquez Protein [Mass/Vol] 5.6 g/dL Critically low 6.4-8.2 [facility] Comment on above: Performed By: #### L IVER, BMP, HSTROPN #### [facility] [address] [place] [address] Dr. Aissatou Vásquez Sodium [Moles/Vol] 141 mmol/L Normal 136-145 [facility] Comment on above: Performed By: #### L IVER, BMP, HSTROPN #### [facility] [address] [place] [address] Dr. Aissatou Vásquez Urea nitrogen [Mass/Vol] 61.0 mg/dL Critically high 7.0-18.0 [facility] Comment on above: Performed By: #### L IVER, BMP, HSTROPN #### [facility] [address] [place] [address] Dr. Aissatou Vásquez Urea nitrogen/Creatinine [Mass ratio] 26.1 mg/mg Normal [facility] Comment on above: Performed By: #### L IVER, BMP, HSTROPN #### [facility] [address] [place] [address] Dr. Aissatou Vásquez PROTIMEon 07-03-2022 INR Coag (PPP) [Relative time] 1.12 {INR} Normal [facility] Comment on above: Performed By: #### C ADAM #### [facility] [address] [address] [address] Aissatou Vásquez INR GUIDELINES SEE BELOW Normal [facility] Comment on above: Result Comment: ELISABETH RED INR: 2.0 - 3.0 CONDITIONS NOT LISTED BELOW 2.5 - 3.5 FOR PROSTHETIC HEART VALVE REPLACEMENT 2.5 - 3.5 RECURRENT THROMBOSIS Performed By: #### C ADAM #### [facility] [address] [place] [address] Dr. Aissatou Vásquez PT Coag (PPP) [Time] 12.0 s Critically high 9.0-11.6 [facility] Comment on above: Performed By: #### C ADAM #### [facility] [address] [place] [address] Dr. Aissatou Vásquez CBC AUTO DIFFon 07-02-2022 BASO # 0.0 103/ul Normal 0.0-0.1 [facility] Comment on above: Performed By: #### C BC ####[facility] [address] [address]Dr. Aissatou Vásquez Basophils/100 WBC (Bld) 0.1 % Critically low 0.2-2.0 [facility] Comment on above: Performed By: #### C BC ####[facility] [address] [place], [place] [address]Dr. Aissatou Vásquez EO # 0.0 103/ul Normal 0.0-0.7 [facility] Comment on above: Performed By: #### C BC ####[facility] [address] [address]Dr. Aissatou Vásquez Eosinophils/100 WBC (Bld) 0.0 % Critically low 0.9-7.0 [facility] Comment on above: Performed By: #### C BC ####[facility] [address] [place], [place] [address]Dr. Aissatou Vásquez Erythrocyte distribution width (RBC) [Ratio] 13.4 % Normal 11.0-15.0 [facility] Comment on above: Performed By: #### C BC ####[facility] [address] [place], [place] [address]Dr. Aissatou Vásquez Hematocrit (Bld) [Volume fraction] 39.9 % Critically low 42.0-54.0 [facility] Comment on above: Performed By: #### C BC ####[facility] [address] [address]DrBud Vásquez Hemoglobin (Bld) [Mass/Vol] 12.8 g/dL Critically low 14.0-18.0 [facility] Comment on above: Performed By: #### C BC ####[facility] [address] [place], [place] [address]DrBud Vásquez IG # 0.05 10e3/ul Critically high 0.00-0.03 [facility] Comment on above: Performed By: #### C BC ####[facility] [address] [place], [place] [address]DrBud Vásquez IG % 0.4 % Normal 0.0-0.5 [facility] Comment on above: Performed By: #### C BC ####[facility] [address] [place], [place] [address]DrBud Vásquez LYMPH # 0.8 103/ul Critically low 1.2-3.8 [facility] Comment on above: Performed By: #### C BC ####[facility] [address] [place], [place] [address]DrBud Vásquez Lymphocytes/100 WBC (Bld) 7.2 % Critically low 20.5-60.0 [facility] Comment on above: Performed By: #### C BC ####[facility] [address] [place], [place] [address]DrBud Vásquez MANUAL DIFF REQ NO Normal [facility] Comment on above: Performed By: #### C BC ####[facility] [address] [place], [place] [address]DrBud Vásquez MCH (RBC) [Entitic mass] 30.0 pg Normal 25.9-34.0 [facility] Comment on above: Performed By: #### C BC ####[facility] [address] [place], [place] [address]DrBud Vásquez MCHC (RBC) [Mass/Vol] 32.1 g/dL Normal 29.9-35.2 [facility] Comment on above: Performed By: #### C BC ####[facility] [address] [address]DrBud Vásquez MCV (RBC) [Entitic vol] 93.7 fL Normal 80.0-94.0 [facility] Comment on above: Performed By: #### C BC ####[facility] [address] [place], [place] [address]DrBud Vásquez MONO # 0.8 103/ul Normal 0.3-0.8 [facility] Comment on above: Performed By: #### C BC ####[facility] [address] [place], [place] [address]DrBud Vásquez Monocytes/100 WBC (Bld) 6.8 % Normal 1.7-12.0 [facility] Comment on above: Performed By: #### C BC ####[facility] [address] [place], [place] [address]DrBud Vásquez NEUT # 9.8 103/ul Critically high 1.4-6.5 [facility] Comment on above: Performed By: #### C BC ####[facility] [address] [place], [place] [address]DrBud Vásquez Neutrophils/100 WBC (Bld) 85.5 % Critically high 43.0-75.0 [facility] Comment on above: Performed By: #### C BC ####[facility] [address] [place], [place] [address]DrBud Vásquez Platelet mean volume (Bld) [Entitic vol] 10.8 fL Normal 9.5-13.5 [facility] Comment on above: Performed By: #### C BC ####[facility] [address] [place], [place] [address]DrBud Vásquez PLT 170 103/ul Normal 150-450 [facility] Comment on above: Performed By: #### C BC ####[facility] [address] [place], [place] [address]DrBud Vásquez RBC 4.26 106/ul Critically low 4.70-6.10 [facility] Comment on above: Performed By: #### C BC ####[facility] [address] [place], [place] [address]HbBud Aissatou Fahad WBC 11.4 103/ul Critically high 4.0-11.0 [facility] Comment on above: Performed By: #### C BC ####[facility] [address] [place], [place] [address]BfBud Vásquez CKMBon 07-02-2022 CK.MB [Mass/Vol] 80.91 ng/mL Critically high <=3.60 [facility] Comment on above: Performed By: #### L IVDHARA LANDRY, HSTROPN #### [facility] [address] [place], [place] [address] Dr. Aissatou Vásquez CPKon 07-02-2022 CK [Catalytic activity/Vol] 915 U/L Critically high 39-308 [facility] Comment on above: Performed By: #### L IVER BMP, HSTROPN #### [facility] [address] [place], [place] [address] Dr. Aissatou Vásquez ECHOCARDIO M/2D COMPLETEon 1 09-02-2021 ECHOCARDIO M/2D COMPLETE Patient: LEANNA NELSON Exam Date: 07/02/2022 : 1940 Gender:M Ordering : SHAIKH Delphine RODRIGUEZ . Admission #: [id number] Family : DR PIPE HOPKINS . Order #: [id number] CLICK HERE TO VIEW EXAM ECHOCARDIOGRAM REPORT PROCEDURE: CARDIO PULMONARY ECHOCARDIO M/2D COMP INDICATIONS: Elevated CK, CKMB and TROP, hypothermia, CABG x 6, hypertension COMPARISON: None. DESCRIPTION: COMPLETE ECHOCARDIOGRAM Real-time transthoracic echocardiography with 2D, M-mode, spectral and color flow Doppler performed. QUALITY: Technical quality was good. 72 198# BP 125/57 LEFT VENTRICLE: Normal chamber size. Thickened septal wall. LV EF: Global left ventricular systolic function is normal; visually estimated ejection fraction is 55 to 60%. No significant wall motion abnormalities. DIASTOLIC: Diastolic function is indeterminate. ATRIAL SEPTUM: Visually appears intact. LEFT ATRIUM: Severe dilatation. RIGHT ATRIUM: Moderate dilatation. RIGHT VENTRICLE: Normal chamber size. Normal systolic function. TRICUSPID VALVE: Normal mobility and thickness. Mild to moderate regurgitation. Doppler studies reveal moderately (45-60) elevated right sided pressures. RVSP 54 mmHg MITRAL VALVE: Mildly thickened with normal mobility. No evidence of mitral valve stenosis. Mild mitral annular calcification. Trivial mitral regurgitation. AORTIC VALVE: Normal trileaflet appearance. Mildly calcified aortic valve. Normal leaflet mobility. No evidence of aortic valve stenosis. Trivial aortic regurgitation. AORTIC ROOT: Normal diameter and appearance. PULMONIC VALVE: Normal thickness and mobility. No stenosis. Trivial regurgitation. PERICARDIUM: No evidence of pericardial effusion. IVC: IVC is dilated (2.5 cm) with no collapse. CONCLUSION: Global left ventricular systolic function is normal; visually estimated ejection fraction is 55 to 60%. No significant wall motion abnormalities. Diastolic function is indeterminate. Biatrial enlargement. The right ventricle is normal in size and systolic function. Mild to moderate tricuspid regurgitation. Moderately elevated right-sided pressures. Adult Echocardiography Procedure Report Left Ventricle LVEDD (3.7 - 5.6 cm): 5.42 cm LVESD (2.2 - 4.0 cm): 3.83 cm LVIVS thickness (0.6 - 1.2 cm): 1.07 cm LVPW thickness (0.5 - 1.0 cm): 0.87 cm e': 0.11 m/s E - e': 6.02 LVOT Max Gradient: 4.46 mm[Hg] Peak Velocity (LVOT): 1.06 m/s Mean Velocity (LVOT): 0.72 m/s LVOT Diameter 2.30 cm Left Ventricular Ejection Fraction: 55.66 %, 55.66 % Left Atrium LA Volume Index (2D A2C): 107.37 ml, 107.37 ml Left Atrium Systolic Dimension: 3.76 cm Mitral Valve MV E to A Ratio: 0.70 Mitral Valve A-Wave Peak Velocity: 0.97 m/s Mitral Valve E-Wave Peak Velocity: 0.68 m/s Right Ventricle Aorta AO Root Diam: 3.59 cm Aortic Valve AoV Area (Peak Thien): 3.29 cm2, 3.29 cm2 AoV Area (VTI): 3.35 cm2, 3.35 cm2 Peak Velocity(Antegrade Flow): 1.34 m/s Peak Gradient(Antegrade Flow): 7.18 mm[Hg] Mean Velocity(Antegrade Flow): 0.86 m/s Mean Gradient(Antegrade Flow): 3.45 mm[Hg] Velocity Time Integral: 28.80 cm Tricuspid Valve Peak Velocity (Regurgitant Flow): 2.29 m/s, 3.11 m/s Peak Velocity: 0.37 m/s Pulmonic Valve Mean Gradient: 3.34 mm[Hg] Mean Velocity: 0.85 m/s Peak Velocity: 1.24 m/s, 1.41 m/s Peak Gradient: 7.92 mm[Hg], 6.15 mm[Hg] Right Atrium Right Atrium Systolic Pressure: 67.85 ml, 67.85 ml Dictated by: Karla Cameron M.D. on 07/08/2022 at 09:51 Approved by: Karla Cameron M.D. on 07/08/2022 at 09:55 Normal [facility] [facility] MAGNESIUMon 07-02-2022 Magnesium [Mass/Vol] 1.9 mg/dL Normal 1.8-2.4 [facility] Comment on above: Performed By: #### L DHARA WAITE, HSTROPN #### [facility] [address] [address] [address] Aissatou Vásquez MYOGLOBINon 07-02-2022 SARAH 1312 ng/mL Critically high 16-96 [facility] Comment on above: Performed By: #### L IVFRANTZ BMP, HSTROPN #### [facility] [address] [address] [address] Aissatou Vásquez PHOSPHORUSon 07-02-2022 Phosphate [Mass/Vol] 6.0 mg/dL Critically high 2.6-4.7 [facility] Comment on above: Performed By: #### L MARIANN BMP, HSTROPN #### [facility] [address] [address] [address] Aissatou Vásquez POINT OF CARE GLUCOSEon 06-06 Glucose [Mass/Vol] 78 mg/dL Normal 74-106 [facility] Comment on above: Performed By: #### C ADAM #### [facility] [address] [address] [address] Aissatou Vásquez Glucose [Mass/Vol] 104 mg/dL Normal 74-106 [facility] Comment on above: Performed By: #### P OCGLUC ####[facility] [address] [id number]. Aissatou Vásquez Glucose [Mass/Vol] 83 mg/dL Normal 74-106 [facility] Comment on above: Performed By: #### L IVER, BMP, HSTROPN #### [facility] [address] [address] [address] Aissatou Vásquez Glucose [Mass/Vol] 100 mg/dL Normal 74-106 [facility] Comment on above: Performed By: #### C ADAM #### [facility] [address] [address] [address] Aissatou Vásquez Glucose [Mass/Vol] 73 mg/dL Critically low 74-106 [facility] Comment on above: Performed By: #### P OCGLUC ####[facility] [address] [address]Dr. Aissatou Vásquez PROF 14(COMP METB)on 022 Albumin [Mass/Vol] 3.3 g/dL Critically low 3.4-5.0 [facility] Comment on above: Performed By: #### L IVER, BMP, HSTROPN #### [facility] [address] [address] [address] Aissatou Vásquez Albumin/Globulin [Mass ratio] 1.0 {ratio} Normal [facility] Comment on above: Performed By: #### L IVER, BMP, HSTROPN #### [facility] [address] [address] [address] Aissatou Vásquez ALP [Catalytic activity/Vol] 114 U/L Normal 46-116 [facility] Comment on above: Performed By: #### L IVER, BMP, HSTROPN #### [facility] [address] [address] [address] Aissatou Vásquez ALT [Catalytic activity/Vol] 48 U/L Normal 16-63 [facility] Comment on above: Performed By: #### L IVER, BMP, HSTROPN #### [facility] [address] [address] [address] Aissatou Vásquez Anion gap [Moles/Vol] 17.3 mmol/L Normal Th e [facility] Comment on above: Performed By: #### L IVER, BMP, HSTROPN #### [facility] [address] [place] [address] Dr. Aissatou Vásquez AST [Catalytic activity/Vol] 68 U/L Critically high 15-37 [facility] Comment on above: Performed By: #### L IVER, BMP, HSTROPN #### [facility] [address] [address] [address] Aissatou Vásquez Bilirubin [Mass/Vol] 0.5 mg/dL Normal 0.2-1.0 [facility] Comment on above: Performed By: #### L IVER, BMP, HSTROPN #### [facility] [address] [place] [address] Dr. Aissatou Vásquez Calcium [Mass/Vol] 8.9 mg/dL Normal 8.5-10.1 [facility] Comment on above: Performed By: #### L IVER, BMP, HSTROPN #### [facility] [address] [place] [address] Dr. Aissatou Vásquez Chloride [Moles/Vol] 109 mmol/L Critically high 98-107 [facility] Comment on above: Performed By: #### L IVER, BMP, HSTROPN #### [facility] [address] [place] [address] Dr. Aissatou Vásquez CO2 [Moles/Vol] 22.8 mmol/L Normal 21.0-32.0 [facility] Comment on above: Performed By: #### L IVER, BMP, HSTROPN #### [facility] [address] [place] [address] Dr. Aissatou Vásquez Creatinine [Mass/Vol] 1.89 mg/dL Critically high 0.70-1.30 [facility] Comment on above: Performed By: #### L IVER, BMP, HSTROPN #### [facility] [address] [address] [address] Aissatou Vásquez EGFR-AF BURUNDIAN 41 mL/min/1.73m2 Critically low >=60 [facility] Comment on above: Result Comment: Prev iously reported as: (blank) On 07/02/2022 05:50 By KD3 Performed By: #### L IVER, BMP, HSTROPN #### [facility] [address] [place] [address] Dr. Aissatou Vásquez EGFR-NON AF BURUNDIAN 34 mL/min/1.73m2 Critically low >=60 [facility] Comment on above: Result Comment: Prev iously reported as: (blank) On 07/02/2022 05:50 By KD3 Performed By: #### L IVER, BMP, HSTROPN #### [facility] [address] [place] [address] Dr. Aissatou Vásquez Globulin (S) [Mass/Vol] 3.4 g/dL Normal [facility] Comment on above: Performed By: #### L IVER, BMP, HSTROPN #### [facility] [address] [place] [address] Dr. Aissatou Vásquez Glucose [Mass/Vol] 86 mg/dL Normal 74-106 [facility] Comment on above: Performed By: #### L IVER, BMP, HSTROPN #### [facility] [address] [place] [address] Dr. Aissatou Vásquez Potassium [Moles/Vol] 5.1 mmol/L Normal 3.5-5.1 [facility] Comment on above: Performed By: #### L IVER, BMP, HSTROPN #### [facility] [address] [place] [address] Dr. Aissatou Vásquez Protein [Mass/Vol] 6.7 g/dL Normal 6.4-8.2 [facility] Comment on above: Performed By: #### L IVER, BMP, HSTROPN #### [facility] [address] [place] [address] Dr. Aissatou Vásquez Sodium [Moles/Vol] 144 mmol/L Normal 136-145 [facility] Comment on above: Performed By: #### L IVDHARA LANDRY, HSTROPN #### [facility] [address] [place] [address] Dr. Aissatou Vásquez Urea nitrogen [Mass/Vol] 55.0 mg/dL Critically high 7.0-18.0 [facility] Comment on above: Performed By: #### L IVFRANTZ BMP, HSTROPN #### [facility] [address] [place] [address] Dr. Aissatou Vásquez Urea nitrogen/Creatinine [Mass ratio] 29.1 mg/mg Normal [facility] Comment on above: Performed By: #### L DHARA WAITE, HSTROPN #### [facility] [address] [place] [address] Dr. Aissatou Vásquez PROTIMEon 07-02-2022 INR Coag (PPP) [Relative time] 1.13 {INR} Normal [facility] Comment on above: Performed By: #### L IVDHARA LANDRY, HSTROPN #### [facility] [address] [place] [address] Dr. Aissatou Vásquez INR GUIDELINES SEE BELOW Normal [facility] Comment on above: Result Comment: ELISABETH RED INR: 2.0 - 3.0 CONDITIONS NOT LISTED BELOW 2.5 - 3.5 FOR PROSTHETIC HEART VALVE REPLACEMENT 2.5 - 3.5 RECURRENT THROMBOSIS Performed By: #### L IVDHARA LANDRY, HSTROPN #### [facility] [address] [place] [address] Dr. Aissatou Vsáquez PT Coag (PPP) [Time] 12.1 s Critically high 9.0-11.6 [facility] Comment on above: Performed By: #### L IVDHARA LANDRY, HSTROPN #### [facility] [address] [place] [address] Dr. Aissaotu Vásquez BLOOD CULTURE ID PANELon A. baumannii Not detected Normal NOT DETECTED [facility] Comment on above: Performed By: #### C ADAM #### [facility] [address] [place] [address] Dr. Aissatou Vásquez Bacteriodes fragilis Not detected Normal NOT DETECTED [facility] Comment on above: Performed By: #### C ADAM #### [facility] [address] [place] [address] Dr. Aissatou PEREZD CONTROLS PASSED Normal [facility] Comment on above: Performed By: #### C ADAM #### [facility] [address] [place] [address] Dr. Aissatou PEREZDBTHD BLOOD CULTURE BOTTLE INFORMATION [facility] Comment on above: Performed By: #### C ADAM #### [facility] [address] [place] [address] Dr. Aissatou Vásquez BCIDHD1 ANTIMICROBIAL RESISTANCE GENES [facility] Comment on above: Performed By: #### C ADAM #### [facility] [address] [place] [address] Dr. Aissatou PEREZDHD2 SEE BELOW [facility] Comment on above: Result Comment: Note : Antimicrobial resitance can occur via multiple mechanisms. A Not Detected result for the [employer] antomicrobial resistance gene assays does not indicate antimicrobial susceptibility. Subculturing is required for species identification and susceptibility testing of isolates. Performed By: #### C ADAM #### [facility] [address] [place] [address] Dr. Aissatou Vásquez BCIDHD3 Positive [facility] Comment on above: Performed By: #### C ADAM #### [facility] [address] [place] [address] Dr. Aissatou Vásquez BCIDHD4 Negative [facility] Comment on above: Performed By: #### C ADAM #### [facility] [address] [place] [address] Dr. Aissatou PEREZDHD5 YEAST [facility] Comment on above: Performed By: #### C ADAM #### [facility] [address] [place] [address] Dr. Aissatou Vásquez Bottle Set: Set [address] [facility] Comment on above: Performed By: #### C ADAM #### [facility] [address] [place] [address] Dr. Aissatou Vásquez Bottle: Pediatric Normal [facility] Comment on above: Performed By: #### C ADAM #### [facility] [address] [place] [address] Dr. Aissatou Vásquez C. neoformans/gattii Not detected Normal NOT DETECTED [facility] Comment on above: Performed By: #### C ADAM #### [facility] [address] [place] [address] Dr. Aissatou Vásquez Soraya albicans Not detected Normal NOT DETECTED [facility] Comment on above: Performed By: #### C ADAM #### [facility] [address] [place] [address] Dr. Aissatou Vásquez Soraya auris Not detected Normal NOT DETECTED [facility] Comment on above: Performed By: #### C ADAM #### [facility] [address] [place] [address] Dr. Aissatou Vásquez Soraya glabrata Not detected Normal NOT DETECTED [facility] Comment on above: Performed By: #### C ADAM #### [facility] [address] [place] [address] Dr. Aissatou Vásquez Soraya Krusei Not detected Normal NOT DETECTED [facility] Comment on above: Performed By: #### C ADAM #### [facility] [address] [place] [address] Dr. Aissatou Vásquez Soraya Parapsilosis Not detected Normal NOT DETECTED [facility] Comment on above: Performed By: #### C ADAM #### [facility] [address] [place] [address] Dr. Aissatou Vásquez Soraya Tropicalis Not detected Normal NOT DETECTED [facility] Comment on above: Performed By: #### C ADAM #### [facility] [address] [place] [address] Dr. Aissatou Vásquez CTX-M Resistant Gene Not detected Normal NOT DETECTED [facility] Comment on above: Performed By: #### C ADAM #### [facility] [address] [place] [address] Dr. Aissatou Vásquez E. Cloacae complex Not detected Normal NOT DETECTED [facility] Comment on above: Performed By: #### C ADAM #### [facility] [address] [address] [address] Aissatou Vásquez E. faecalis Not detected Normal NOT DETECTED [facility] Comment on above: Performed By: #### C ADAM #### [facility] [address] [place] [address] Dr. Aissatou Vásquez E. faecium Not detected Normal NOT DETECTED [facility] Comment on above: Performed By: #### C ADAM #### [facility] [address] [place] [address] Dr. Aissatou Vásquez Enterobacteriaceae Detected Critically abnormal NOT DETECTED [facility] Comment on above: Performed By: #### C ADAM #### [facility] [address] [place] [address] Dr. Aissatou Vásquez Escherichia coli Not detected Normal NOT DETECTED [facility] Comment on above: Performed By: #### C ADAM #### [facility] [address] [place] [address] Dr. Aissatou Vásquez H. influenzae Not detected Normal NOT DETECTED [facility] Comment on above: Performed By: #### C ADAM #### [facility] [address] [place] [address] Dr. Aissatou Vásquez IMP Resistant Gene Not detected Normal NOT DETECTED [facility] Comment on above: Performed By: #### C ADAM #### [facility] [address] [place] [address] Dr. Aissatou Vásquez K. oxytoca Not detected Normal NOT DETECTED [facility] Comment on above: Performed By: #### C ADAM #### [facility] [address] [place] [address] Dr. Aissatou Vásquez K. pneumoniae Not detected Normal NOT DETECTED [facility] Comment on above: Performed By: #### C ADAM #### [facility] [address] [place] [address] Dr. Aissatou Vásquez Klebsiella aerogenes Not detected Normal NOT DETECTED [facility] Comment on above: Performed By: #### C ADAM #### [facility] [address] [place] [address] Dr. Aissatou Vásquez KPC Resistant Gene Not detected Normal NOT DETECTED [facility] Comment on above: Performed By: #### C ADAM #### [facility] [address] [place] [address] Dr. Aissatou Vásquez List. monocytogenes Not detected Normal NOT DETECTED [facility] Comment on above: Performed By: #### C ADAM #### [facility] [address] [place] [address] Dr. Aissatou Vásquez Mcr-1 Resistant Gene Not Applicable Normal NOT DETECTE D [facility] Comment on above: Performed By: #### C ADAM #### [facility] [address] [place] [address] Dr. Aissatou Vásquez mecA/C Not Applicable Normal NOT DETECTED [facility] Comment on above: Performed By: #### C ADAM #### [facility] [address] [place] [address] Dr. Aissatou Vásquez mecA/C MREJ Not Applicable Normal NOT DETECTED [facility] Comment on above: Performed By: #### C ADAM #### [facility] [address] [place] [address] Dr. Aissatou Vásquez N. meningitidis Not detected Normal NOT DETECTED [facility] Comment on above: Performed By: #### C ADAM #### [facility] [address] [place] [address] Dr. Aissatou Vásquez NDM Resistant Gene Not detected Normal NOT DETECTED [facility] Comment on above: Performed By: #### C ADAM #### [facility] [address] [place] [address] Dr. Aissatou Vásquez Oxa-48-like Not detected Normal NOT DETECTED [facility] Comment on above: Performed By: #### C ADAM #### [facility] [address] [place] [address] Dr. Aissatou Vásquez Proteus Not detected Normal NOT DETECTED [facility] Comment on above: Performed By: #### C ADAM #### [facility] [address] [place] [address] Dr. Aissatou Vásquez Pseud. aeruginosa Not detected Normal NOT DETECTED [facility] Comment on above: Performed By: #### C ADAM #### [facility] [address] [place] [address] Dr. Aissatou Vásquez S. maltophilia Not detected Normal NOT DETECTED [facility] Comment on above: Performed By: #### C ADAM #### [facility] [address] [place] [address] Dr. Aissatou Vsáquez Salmonella Not detected Normal NOT DETECTED [facility] Comment on above: Performed By: #### C ADAM #### [facility] [address] [place] [address] Dr. Aissatou Vásquez Seratia marcescens Not detected Normal NOT DETECTED [facility] Comment on above: Performed By: #### C ADAM #### [facility] [address] [place] [address] Dr. Aissatou Vásquez Site: IV Normal [facility] Comment on above: Performed By: #### C ADAM #### [facility] [address] [place] [address] Dr. Aissatou Vásquez Staph. aureus Not detected Normal NOT DETECTED [facility] Comment on above: Performed By: #### C ADAM #### [facility] [address] [place] [address] Dr. Aissatou Vásquez Staph. epidermidis Not detected Normal NOT DETECTED [facility] Comment on above: Performed By: #### C ADAM #### [facility] [address] [place] [address] Dr. Aissatou Vásquez Staph. lugdunensis Not detected Normal NOT DETECTED [facility] Comment on above: Performed By: #### C ADAM #### [facility] [address] [place] [address] Dr. Aissatou Vásquez Staphylococcus Not detected Normal NOT DETECTED [facility] Comment on above: Performed By: #### C ADAM #### [facility] [address] [place] [address] Dr. Aissatou Vásquez Strep. agalactiae Not detected Normal NOT DETECTED [facility] Comment on above: Performed By: #### C ADAM #### [facility] [address] [address] [address] Aissatou Vásquez Strep. pneumoniae Not detected Normal NOT DETECTED [facility] Comment on above: Performed By: #### C ADAM #### [facility] [address] [address] [address] Aissatou Vásquez Strep. pyogenes Not detected Normal NOT DETECTED [facility] Comment on above: Performed By: #### C ADAM #### [facility] [address] [place] [address] Dr. Aissatou Vásquez Streptococcus Not detected Normal NOT DETECTED [facility] Comment on above: Performed By: #### C ADAM #### [facility] [address] [place] [address] Dr. Aissatou Vásquez Akila/Uri Resist. Gene Not Applicable Normal NOT DETECTED [facility] Comment on above: Performed By: #### C ADAM #### [facility] [address] [address] [address] Aissatou Vásquez VIM Resistant Gene Not detected Normal NOT DETECTED [facility] Comment on above: Performed By: #### C ADAM #### [facility] [address] [place] [address] Dr. Aissatou Vásquez CBC W MANUAL DIFFon 07-01-20 22 ATYPICAL LYMPH # Normal [facility] Comment on above: Performed By: #### C BCMAN ####[facility] [address] [address]DrBud Vásquez ATYPICAL LYMPH % Normal [facility] Comment on above: Performed By: #### C BCMAN ####[facility] [address] [address]Dr. Aissatou Vásquez BAND # 0.4 103/ul Critically high 0.0-0.3 [facility] Comment on above: Performed By: #### C BCMAN ####[facility] [address] [address]Dr. Aissatou Vásquez BAND % 3 % Normal 0-5 [facility] Comment on above: Performed By: #### C BCMAN ####[facility] [address] [id number]. Aissatou Vásquez BASOM # 0.00 103/ul Normal 0.00-0.10 [facility] Comment on above: Performed By: #### C BCMAN ####[facility] [address] [id number]. Aissatou Vásquez BASOM % 0.0 % Critically low 0.2-2.0 [facility] Comment on above: Performed By: #### C BCMAN ####[facility] [address] [address]Dr. Aissatou Vásquez BLAST # Normal [facility] Comment on above: Performed By: #### C BCRITCHIE ####[facility] [address] [address]Dr. Aissatou Vásquez BLAST % Normal [facility] Comment on above: Performed By: #### C BCRITCHIE ####[facility] [address] [place], [place] [address]Dr. Aissatou Vásquez CORRECTED WBC Normal 4.0-11.0 [facility] Comment on above: Performed By: #### C BCRITCHIE ####[facility] [address] [place], [place] [address]Dr. Aissatou Vásquez EOS # 0.12 103/ul Normal 0.00-0.70 [facility] Comment on above: Performed By: #### C BCRITCHIE ####[facility] [address] [address]Dr. Aissatou Vásquez EOS% 1.0 % Normal 0.9-7.0 [facility] Comment on above: Performed By: #### C BCRITCHIE ####[facility] [address] [id number]. Aissatou Vásuqez HCT 46.0 % Normal 42.0-54.0 [facility] Comment on above: Performed By: #### C BCMAN ####[facility] [address] [place], [place] [address]Dr. Aissatou Vásquez HGB 14.6 g/dl Normal 14.0-18.0 [facility] Comment on above: Performed By: #### Soni DEL CASTILLO ####[facility] [address] [place], [place] [address]Rn. Aissatou Vásquez LYMPHM # 0.62 103/ul Critically low 1.20-3.80 [facility] Comment on above: Performed By: #### Soni DEL CASTILLO ####[facility] [address] [place], [place] [address]Rv. Aissatou Vásquez LYMPHM% 5.0 % Critically low 20.5-60.0 [facility] Comment on above: Performed By: #### Soni DEL CASTILLO ####[facility] [address] [id number]. Aissatou Vásquez MCH 29.9 pg Normal 25.9-34.0 [facility] Comment on above: Performed By: #### Soni DEL CASTILLO ####[facility] [address] [phone]. Aissatou Vásquez MCHC 31.7 g/dl Normal 29.9-35.2 [facility] Comment on above: Performed By: #### Soni DEL CASTILLO ####[facility] [address] [phone]. Aissatou Vásquez MCV 94.1 fL Critically high 80.0-94.0 [facility] Comment on above: Performed By: #### Soni DEL CASTILLO ####[facility] [address] [phone]. Aissatou Vásquez METAMYELOCYTE # Normal [facility] Comment on above: Performed By: #### Soni DEL CASTILLO ####[facility] [address] [phone]. Aissatou Vásquez METAMYELOCYTE % Normal [facility] Comment on above: Performed By: #### Soni DEL CASTILLO ####[facility] [address] [phone]. Aissatou Vásquez MONOM# 0.62 103/ul Normal 0.30-0.80 [facility] Comment on above: Performed By: #### Soni DEL CASTILLO ####[facility] [address] [phone]. Aissatou Vásquez MONOM% 5.0 % Normal 1.7-12.0 [facility] Comment on above: Performed By: #### C ABUNDIO ####[facility] [address] [phone]. Aissatou Vásquez MPV 10.4 fL Normal 9.5-13.5 [facility] Comment on above: Performed By: #### C ABUNDIO ####[facility] [address] [phone]. Aissatou Vásquez MYELOCYTE # Normal [facility] Comment on above: Performed By: #### C ABUNDIO ####[facility] [address] [phone]. Aissatou Vásquez MYELOCYTE % Normal [facility] [facility] Comment on above: Performed By: #### C ABUNDIO ####[facility] [id number] [place] [id number]. Aissatou Vásquez NRBC Normal [facility] Comment on above: Performed By: #### C ABUNDIO ####[facility] [id number] [place] [id number]. Aissatou Vásquez PLT 171 103/ul Normal 150-450 [facility] Comment on above: Performed By: #### C ABUNDIO ####[facility] [id number] [place] [id number]. Aissatou Vásquez RBC 4.89 106/ul Normal 4.70-6.10 [facility] Comment on above: Performed By: #### C ABUNDIO ####[facility] [address] [place] [id number]. Aissatou Vásquez RDW 13.4 % Normal 11.0-15.0 [facility] Comment on above: Performed By: #### C ABUNDIO ####[facility] [id number] [place] [id number]. Aissatou Vásquez SEG # 10.66 103/ul Critically high 1.40-6.50 [facility] Comment on above: Performed By: #### C ABUNDIO ####[facility] [id number] [place] [id number] Vásquez SEG % 86.0 % Critically high 43.0-75.0 [facility] Comment on above: Performed By: #### C ABUNDIO ####[facility] [id number] [place], [place] [address]Dr. Aissatou Vásquez WBC 12.4 103/ul Critically high 4.0-11.0 [facility] Comment on above: Performed By: #### C ABUNDIO ####[facility] [id number] [place], [place] [address]Dr. Aissatou Vásquez CPKon 07-01-2022 CK [Catalytic activity/Vol] 1646 U/L Critically high 39-308 [facility] Comment on above: Performed By: #### L DHARA WAITE, HSTROPN #### [facility] [address] [place], [place] [address] [address] V[address] CSPINE WO CONon 2 CT CSPINE WO CON EXAMINATION: CT CSPINE WO CON HISTORY: The patient is an 81-year-old male. Altered mental status COMPARISON: None. TECHNIQUE: CT Cervical spine without IV contrast. Coronal and sagittal reformations were performed. Dose reduction techniques were achieved by using automated exposure control and/or adjustment of mA and/or kV according to patient size and/or use of iterative reconstruction technique. FINDINGS: The axial images demonstrate no fractures or cortical discontinuities throughout the cervical spine. Incidentally noted are mural calcifications within both vertebral arteries. The coronal and sagittal reformatted images demonstrate no fractures or loss of vertebral body height throughout the cervical spine. The temporomandibular joints are maintained. There is severe disc space narrowing at all levels between C5 and T1, and there is moderate to severe narrowing of the upper cervical discs. There is bony fusion anteriorly and posteriorly across the C2-C3 level. There is advanced degenerative facet disease bilaterally within the upper cervical spine. The soft tissue images demonstrate disc osteophyte complexes at the C3-C4, C5-C6, and C6-C7 levels. These appear to contact the ventral spinal cord. If clinically necessary, the degree of central canal stenosis could be better evaluated with an MRI of the cervical spine. IMPRESSION: 1. No fractures or loss of vertebral body height throughout the cervical spine. 2. 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 Electronically authenticated by: KOKO ROMANO Date: 2022-07-01 19:22 Normal [facility] CT STROKE HEAD WOon 07-01-[address] STROKE HEAD WO NONCONTRAST CT SCAN OF THE HEAD CT STROKE HEAD WO HISTORY:: Unspecified fall in an 81-year-old male TECHNIQUE: Multiple axial images are taken from the level the vertex down to the base of the skull without the use of IV contrast. Images were then reconstructed in the sagittal and coronal planes. This exam was performed according to our departmental dose-optimization program which includes use of Automated Exposure Control, adjustment of the mA and/or kV according to patient size and/or use of iterative reconstruction technique. COMPARISON: None. FINDINGS: Brain Parenchyma: There is global, diffuse atrophy with periventricular decreased white matter attenuation. No intracranial mass. No intracranial hemorrhage. Punctate calcifications in the basal ganglia left greater than. Posterior fossa: Normal. Midline shift: None Extra-axial fluid collection: None Ventricles: Normal. Mastoid air cells: Normal. Sinuses: Minimal mucosal thickening. Cranium: No depressed skull fracture. Soft tissues: Normal. Orbits: Orbits demonstrate postoperative changes from prior cataract resection with prosthetic lens implant. IMPRESSION: 1. Chronic small vessel ischemic change. 2. Otherwise, no CT evidence for acute pathology. 3. If symptoms continue, MRI may help better delineate. Electronically authenticated by: BERNADETTE BEDOLLA Date: 2022-07-01 17:37 Normal [facility] CULTURE BLOODon 07-01-2022 Microscopic examination of blood, culture Culture Observations: NO GROWTH AT 5 DAYS. Normal [facility] Comment on above: Performed By: #### [facility] ####[facility] [id number] [place], [place] [address]Rb. Aissatou Vásquez Covid-19 PCR (CVDTB)on 06-06 SARS-CoV-2 (COVID-19) RNA HALLE+probe Ql (Unsp spec) Not detected Normal NOT DETECTED [facility] Comment on above: Result Comment: When diagnostic testing is negative, the possibility of a false negative should be considered in the context of a patient's recent exposures and the presence of clinical signs and symptoms consistent with SARS-CoV-2. This test is not yet approved or cleared by the [place] FDA. When there are no FDA-approved or cleared tests available, and other criteria are met, FDA can make tests available under an emergency access mechanism called an Emergency Use Authorization (EUA). The EUA for this test is supported by the [place] of Health and Human Service's declaration that circumstances exist to justify the emergency use of in vitro diagnostics for the detection and/or diagnosis of the virus that causes COVID-19. This EUA will remain in effect for the duration of the COVID-19 declaration justifying emergency of IVDs, unless it is terminated or revoked by the FDA (after which the test may no longer be used). Performed By: #### L IVER, BMP, HSTROPN #### [facility] [address] [place] [address] Dr. Aissatou Vásquez DRUG SCREEN RAPID (URINE)on 07-01-2022 AMP Negative Normal NEGATIVE [facility] [place] Comment on above: Performed By: #### C ADAM #### [facility] [address] [place] [address] Dr. Aissatou Vásquez BAR Negative Normal NEGATIVE [facility] Comment on above: Performed By: #### C ADAM #### [facility] [address] [place] [address] Dr. Aissatou Vásquez BUP Negative Normal NEGATIVE [facility] [place] Comment on above: Performed By: #### C ADAM #### [facility] [address] [place] [address] Dr. Aissatou Vásquez BZO Negative Normal NEGATIVE [facility] [place] Comment on above: Performed By: #### C ADAM #### [facility] [address] [place] [address] Dr. Aissatou Vásquez MARYJANE Negative Normal NEGATIVE [facility] [place] Comment on above: Performed By: #### C ADAM #### [facility] [address] [place] [address] Dr. Aissatou Vásquez CUT-OFFS SEE BELOW Normal [facility] Comment on above: Result Comment: AMP (Amphetamine): 500ng/mL, BAR (Barbituates): 200 ng/mL, BZO (Benzodiazepines): 150 ng/mL, BUP (Buprenorphine): 10 ng/mL, MARYJANE (Cocaine): 150 ng/mL, mAMP (Methamphetamine): 500 ng/mL, MTD (Methadone): 200 ng/mL, OPI (Opiates): 100 ng/mL, OXY (Oxycodone): 100 ng/mL, PCP (Phencyclidine): 25 ng/mL, PPX (Propoxyphene): 300 ng/mL, THC (Cannabinoids): 50 ng/mL, TCA (Trycyclic Antidepressants): 300 ng/mL Performed By: #### C ADAM #### [facility] [address] [place] [address] Dr. Aissatou Vásquez DRUG CUT HEADER DRUG CLASS TEST SYSTEM CUT-OFF CONCENTRATIONS ARE FOLLOWS: Normal [facility] [place] Comment on above: Performed By: #### C ADAM #### [facility] [address] [place] [address] Dr. Aissatou áVsquez mAMP Negative Normal NEGATIVE [facility] [place] Comment on above: Performed By: #### C ADAM #### [facility] [address] [place] [address] Dr. Aissatou Vásquez MTD Negative Normal NEGATIVE [facility] [place] Comment on above: Performed By: #### C ADAM #### [facility] [address] [place] [address] Dr. Aissatou Vásquez OPI Negative Normal NEGATIVE [facility] [place] Comment on above: Performed By: #### C ADAM #### [facility] [address] [place] [address] Dr. Aissatou Vásquez OXY Negative Normal NEGATIVE [facility] Comment on above: Performed By: #### C ADAM #### [facility] [address] [place] [address] Dr. Aissatou Vásquez PCP Negative Normal NEGATIVE [facility] Comment on above: Performed By: #### C ADAM #### [facility] [address] [place] [address] Dr. Aissatou Vásquez PPX Negative Normal NEGATIVE [facility] Comment on above: Performed By: #### C ADAM #### [facility] [address] [place] [address] Dr. Aissatou Vásquez TCA Negative Normal NEGATIVE [facility] Comment on above: Performed By: #### C ADAM #### [facility] [address] [place] [address] Dr. Aissatou Vásquez THC Negative Normal NEGATIVE [facility] Comment on above: Performed By: #### C ADAM #### [facility] [address] [place] [address] Dr. Aissatou Vásquez ER URINE PROFILEon 2 Bilirubin Ql (U) Negative Normal NEGATIVE [facility] Comment on above: Performed By: #### C ADAM #### [facility] [address] [place] [address] Dr. Aissatou Vásquez Clarity (U) CLEAR Normal CLEAR [facility] Comment on above: Performed By: #### C ADAM #### [facility] [address] [place] [address] Dr. Aissatou Vásquez Color (U) YELLOW Normal YELLOW [facility] Comment on above: Performed By: #### C ADAM #### [facility] [address] [place] [address] Dr. Aissatou Vásquez ERUAHD A micrscopic examination will be performed if indicated. Normal [facility] Comment on above: Performed By: #### C ADAM #### [facility] [address] [place] [address] Dr. Aissatou Vásquez Glucose Ql (U) Negative Normal NEGATIVE [facility] Comment on above: Performed By: #### C ADAM #### [facility] [address] [place] [address] Dr. Aissatou Vásquez Hemoglobin Ql (U) MODERATE Abnormal NEGATIVE [facility] Comment on above: Performed By: #### C ADAM #### [facility] [address] [place] [address] Dr. Aissatou Vásquez Ketones Ql (U) 15 mg/dl Abnormal NEGATIVE [facility] Comment on above: Performed By: #### C ADAM #### [facility] [address] [place] [address] Dr. Aissatou Vásquez LEUKOCYTES Negative Normal NEGATIVE [facility] Comment on above: Performed By: #### C ADAM #### [facility] [address] [place] [address] Dr. Aissatou Vásquez Nitrite Ql (U) Negative Normal NEGATIVE [facility] Comment on above: Performed By: #### C ADAM #### [facility] [address] [place] [address] Dr. Aissatou Vásquez pH (U) 5.0 [pH] Normal 5-9 [facility] Comment on above: Performed By: #### C ADAM #### [facility] [address] [place] [address] Dr. Aissatou Vásquez SPEC GRAVITY 1.025 Normal 1.005-<=1.025 [facility] Comment on above: Performed By: #### C ADAM #### [facility] [address] [place] [address] Dr. Aissatou Vásquez UA PROTEIN TRACE Normal NEGATIVE/ TRACE [facility] Comment on above: Performed By: #### C ADAM #### [facility] [address] [place] [address] Dr. Aissatou Vásquez UR MICRO IND INDICATED Normal [facility] Comment on above: Performed By: #### C ADAM #### [facility] [address] [place] [address] Dr. Aissatou Vásquez Urobilinogen Qn (U) 0.2 {Ilene'U}/dL Normal 0.2 - 1. 0 [facility] Comment on above: Performed By: #### C ADAM #### [facility] [address] [place] [address] Dr. Aissatou Vásquez LIVER PROFILEon 07-01-2022 Albumin [Mass/Vol] 3.7 g/dL Normal 3.4-5.0 [facility] Comment on above: Performed By: #### L IVER, BMP, HSTROPN #### [facility] [address] [place] [address] Dr. Aissatou Vásquez Albumin/Globulin [Mass ratio] 0.9 {ratio} Normal [facility] Comment on above: Performed By: #### L IVER BMP, HSTROPN #### [facility] [address] [place] [address] Dr. Aissatou Vásquez ALP [Catalytic activity/Vol] 143 U/L Critically high 46-116 [facility] Comment on above: Performed By: #### L IVER, BMP, HSTROPN #### [facility] [address] [place] [address] [address] Aissatou Vásquez ALT [Catalytic activity/Vol] 56 U/L Normal 16-63 [facility] Comment on above: Performed By: #### L IVER, BMP, HSTROPN #### [facility] [address] [place] [address] [address] Aissatou Vásquez AST [Catalytic activity/Vol] 87 U/L Critically high 15-37 [facility] Comment on above: Performed By: #### L IVER, BMP, HSTROPN #### [facility] [address] [place] [address] Dr. Aissatou Vásquez BILI, CONJUGATED 0.2 mg/dL Normal 0.0-0.2 [facility] Comment on above: Performed By: #### L IVER, BMP, HSTROPN #### [facility] [address] [place] [address] Dr. Aissatou Vásquez Bilirubin [Mass/Vol] 0.6 mg/dL Normal 0.2-1.0 [facility] Comment on above: Performed By: #### L IVER, BMP, HSTROPN #### [facility] [address] [place] [address] Dr. Aissatou Vásquez Globulin (S) [Mass/Vol] 3.9 g/dL Normal [facility] Comment on above: Performed By: #### L IVER, BMP, HSTROPN #### [facility] [address] [place] [address] Dr. Aissatou Vásquez Protein [Mass/Vol] 7.6 g/dL Normal 6.4-8.2 [facility] Comment on above: Performed By: #### L IVER, BMP, HSTROPN #### [facility] [address] [place] [address] Dr. Aissatou Vásquez MYOGLOBINon 07-01-2022 SARAH 2042 ng/mL Critically high 16-96 [facility] Comment on above: Performed By: #### L IVER, BMP, HSTROPN #### [facility] [address] [place] [address] [address] Aissatou Vásquez PROF CHEM 8 (BAS METB)on Anion gap [Moles/Vol] 18.5 mmol/L Normal [facility] Comment on above: Performed By: #### L IVER, BMP, HSTROPN #### [facility] [address] [place] [address] [address] Aissatou Vásquez Calcium [Mass/Vol] 9.8 mg/dL Normal 8.5-10.1 [facility] Comment on above: Performed By: #### L IVER, BMP, HSTROPN #### [facility] [address] [place] [address] [address] Aissatou Vásquez Chloride [Moles/Vol] 104 mmol/L Normal 98-107 [facility] Comment on above: Performed By: #### L IVER, BMP, HSTROPN #### [facility] [address] [place] [address] [address] Aissatou Vásquez CO2 [Moles/Vol] 24.3 mmol/L Normal 21.0-32.0 [facility] Comment on above: Performed By: #### L IVER, BMP, HSTROPN #### [facility] [address] [place] [address] [address] Aissatou Vásquez Creatinine [Mass/Vol] 1.74 mg/dL Critically high 0.70-1.30 [facility] Comment on above: Performed By: #### L IVER, BMP, HSTROPN #### [facility] [address] [place] [address] [address] Aissatou Vásquez EGFR-AF BURUNDIAN 46 mL/min/1.73m2 Critically low >=60 [facility] Comment on above: Performed By: #### L IVER, BMP, HSTROPN #### [facility] [address] [place] [address] [address] Aissatou Vásquez EGFR-NON AF BURUNDIAN 38 mL/min/1.73m2 Critically low >=60 [facility] Comment on above: Performed By: #### L IVER, BMP, HSTROPN #### [facility] [address] [place] [address] [address] Aissatou Vásquez Glucose [Mass/Vol] 115 mg/dL Critically high 74-106 [facility] Comment on above: Performed By: #### L IVER, BMP, HSTROPN #### [facility] [address] [place] [address] [address] Aissatou Vásquez Potassium [Moles/Vol] 4.8 mmol/L Normal 3.5-5.1 [facility] Comment on above: Performed By: #### L IVER, BMP, HSTROPN #### [facility] [address] [place] [address] Dr. Aissatou Vásquez Sodium [Moles/Vol] 142 mmol/L Normal 136-145 [facility] Comment on above: Performed By: #### L IVER, BMP, HSTROPN #### [facility] [address] [place] [address] Dr. Aissatou Vásquez Urea nitrogen [Mass/Vol] 54.0 mg/dL Critically high 7.0-18.0 [facility] Comment on above: Performed By: #### L IVER, BMP, HSTROPN #### [facility] [address] [place] [address] Dr. Aissatou Vásquez Urea nitrogen/Creatinine [Mass ratio] 31.0 mg/mg Normal [facility] Comment on above: Performed By: #### L IVER, BMP, HSTROPN #### [facility] [address] [place] [address] Dr. Aissatou Vásquez TROPONIN, HIGH SENSITIVITYon 07-01-2022 HSTROP 102.3 pg/mL Critically high 4.0-76.1 [facility] Comment on above: Result Comment: CUT- OFF POINTS HAVE BEEN ESTABLISHED BASED ON THE FOURTH UNIVERSAL DEFINITIONS OF MYOCARDIAL INFARCTION. THE UPPER REFERENCE LIMIT (URL) OF TROPONIN, DEFINED THE 99TH PERCENTILE OF cTnI DISTRIBUTION IN A REFERENCE POPULATION, HAS BEEN CONFIRMED THE DECISION THRESHOLD FOR IA DIAGNOSIS. Performed By: #### H STROPN ####[facility] [id number] [place] [address]Dr. Aissatou Vásquez HSTROP 132.4 pg/mL Critically high 4.0-76.1 [facility] Comment on above: Result Comment: CUT- OFF POINTS HAVE BEEN ESTABLISHED BASED ON THE FOURTH UNIVERSAL DEFINITIONS OF MYOCARDIAL INFARCTION. THE UPPER REFERENCE LIMIT (URL) OF TROPONIN, DEFINED THE 99TH PERCENTILE OF cTnI DISTRIBUTION IN A REFERENCE POPULATION, HAS BEEN CONFIRMED THE DECISION THRESHOLD FOR IA DIAGNOSIS. Performed By: #### L IVER, BMP, HSTROPN #### [facility] [address] [place] [address] [address] Aissatou Vásquez TSHon 07-01-2022 TSH 7.840 uIU/mL Critically high 0.358-3.740 [facility] Comment on above: Performed By: #### L IVER, BMP, HSTROPN #### [facility] [address] [place] [address] Dr. Aissatou Vásquez URINE MICROSCOPIC ONLYon BACTERIA NONE SEEN Normal NONE SEEN [facility] Comment on above: Performed By: #### C ADAM #### [facility] [address] [place] [address] Dr. Aissatou Vásquez Bacteria identified Cx Nom (U) NOT INDICATED Normal [facility] Comment on above: Performed By: #### C ADAM #### [facility] [address] [place] [address] Dr. Aissatou Vásquez CAST NONE SEEN Normal NONE SEEN [facility] Comment on above: Performed By: #### C ADAM #### [facility] [address] [place] [address] Dr. Aissatou Vásquez Crystals LM Nom (Urine sed) NONE SEEN Normal NONE SEEN [facility] Comment on above: Performed By: #### C ADAM #### [facility] [address] [place] [address] Dr. Aissatou Vásquez Epithelial cells LM Ql (Urine sed) RARE Normal NONE SEEN /RARE [facility] Comment on above: Performed By: #### C ADAM #### [facility] [address] [place] [address] Dr. Aissatou Vásquez MUCOUS TRACE Abnormal NONE SEEN [facility] Comment on above: Performed By: #### C ADAM #### [facility] [address] [place] [address] Dr. Aissatou Vásquez RBC 2-5 Abnormal 0-2 [facility] Comment on above: Performed By: #### C ADAM #### [facility] [address] [place] [address] Dr. Aissatou Vásquez WBC 2-5 Abnormal NONE SEEN [facility] Comment on above: Performed By: #### C ADAM #### [facility] [address] [place] [address] Dr. Aissatou Vásquez XR CHEST 1 Von 07-01-2022 XR CHEST 1 V ONE-VIEW CHEST RADIOGRAPH, 07/01/2022 5:31 PM EST COMPARISON: Chest, 08/09/2018. CLINICAL HISTORY: Altered mental status Findings and impression: 1. No acute pulmonary disease. 2. Evidence for old granulomatous disease with calcified granuloma in the right midlung zone and calcified right hilar lymph node redemonstrated. 3. Normal heart size with evidence of prior open heart surgery. 4. No acute osseous abnormality. Electronically authenticated by: Jhony TOTH Date: 2022-07-01 18:01 Normal [facility] AMMONIAon 06-05-2022 Ammonia (P) [Mass/Vol] ug/dL Critically low 11-32 [facility] Comment on above: Performed By: #### L IVER, BMP, HSTROPN #### [facility] [address] [place] [address] Dr. Aissatou Vásquez BNPon 06-05-2022 Natriuretic peptide B (Bld) [Mass/Vol] 672.0 pg/mL Normal <=1,800.0 [facility] Comment on above: Performed By: #### T SH, CMP, FT3, BNP, T4, LIPID #### [facility] [address] [place] [address] Dr. Aissatou Vásquez CBC AUTO DIFFon 06-05-2022 BASO # 0.0 103/ul Normal 0.0-0.1 [facility] Comment on above: Performed By: #### C ADAM #### [facility] [address] [place] [address] Dr. Aissatou Vásquez Basophils/100 WBC (Bld) 0.6 % Normal 0.2-2.0 [facility] Comment on above: Performed By: #### C ADAM #### [facility] [address] [place] [address] Dr. Aissatou Vásquez EO # 0.0 103/ul Normal 0.0-0.7 [facility] Comment on above: Performed By: #### C ADAM #### [facility] [address] [place] [address] Dr. Aissatou Vásquez Eosinophils/100 WBC (Bld) 0.6 % Critically low 0.9-7.0 [facility] Comment on above: Performed By: #### C ADAM #### [facility] [address] [place] [address] Dr. Aissatou Vásquez Erythrocyte distribution width (RBC) [Ratio] 13.7 % Normal 11.0-15.0 [facility] Comment on above: Performed By: #### C ADAM #### [facility] [address] [place] [address] Dr. Aissatou Vásquez Hematocrit (Bld) [Volume fraction] 40.7 % Critically low 42.0-54.0 [facility] Comment on above: Performed By: #### C ADAM #### [facility] [address] [place] [address] Dr. Aissatou Vásquez Hemoglobin (Bld) [Mass/Vol] 12.8 g/dL Critically low 14.0-18.0 [facility] Comment on above: Performed By: #### C ADAM #### [facility] [address] [place] [address] Dr. Aissatou Vásquez IG # 0.01 10e3/ul Normal 0.00-0.03 [facility] Comment on above: Performed By: #### C ADAM #### [facility] [address] [place] [address] Dr. Aissatou Vásquez IG % 0.2 % Normal 0.0-0.5 [facility] Comment on above: Performed By: #### C ADAM #### [facility] [address] [address] [address] Aissatou Vásquez LYMPH # 1.7 103/ul Normal 1.2-3.8 [facility] Comment on above: Performed By: #### C ADAM #### [facility] [address] [address] [address] Aissatou Vásquez Lymphocytes/100 WBC (Bld) 27.5 % Normal 20.5-60.0 [facility] Comment on above: Performed By: #### C ADAM #### [facility] [address] [address] [address] Aissatou Vásquez MANUAL DIFF REQ NO Normal [facility] Comment on above: Performed By: #### C ADAM #### [facility] [address] [place] [address] Dr. Aissatou Vásquez MCH (RBC) [Entitic mass] 30.3 pg Normal 25.9-34.0 [facility] Comment on above: Performed By: #### C ADAM #### [facility] [address] [place] [address] Dr. Aissatou Vásquez MCHC (RBC) [Mass/Vol] 31.4 g/dL Normal 29.9-35.2 [facility] Comment on above: Performed By: #### C ADAM #### [facility] [address] [address] [address] Aissatou Vásquez MCV (RBC) [Entitic vol] 96.2 fL Critically high 80.0-94.0 [facility] Comment on above: Performed By: #### C ADAM #### [facility] [address] [address] [address] Aissatou Vásquez MONO # 0.6 103/ul Normal 0.3-0.8 [facility] Comment on above: Performed By: #### C ADAM #### [facility] [address] [address] [address] Aissatou Vásquez Monocytes/100 WBC (Bld) 9.9 % Normal 1.7-12.0 [facility] Comment on above: Performed By: #### C ADAM #### [facility] [address] [address] [address] Aissatou Vásquez NEUT # 3.8 103/ul Normal 1.4-6.5 [facility] Comment on above: Performed By: #### C ADAM #### [facility] [address] [address] [address] Aissatou Vásquez Neutrophils/100 WBC (Bld) 61.2 % Normal 43.0-75.0 [facility] Comment on above: Performed By: #### C ADAM #### [facility] [address] [address] [address] Aissatou Vásquez Platelet mean volume (Bld) [Entitic vol] 9.3 fL Critically low 9.5-13.5 [facility] Comment on above: Performed By: #### C ADAM #### [facility] [address] [address] [address] Aissatou Vásquez PLT 218 103/ul Normal 150-450 [facility] Comment on above: Performed By: #### C ADAM #### [facility] [address] [address] [address] Aissatou Vásquez RBC 4.23 106/ul Critically low 4.70-6.10 [facility] Comment on above: Performed By: #### C ADAM #### [facility] [address] [address] [address] Aissatou Vásquez WBC 6.3 103/ul Normal 4.0-11.0 [facility] Comment on above: Performed By: #### C ADAM #### [facility] [address] [address] [address] Aissatou Vásquez FREE T3on 06-05-2022 FREE T3 1.80 pg/mlL Critically low 2.18-3.98 [facility] Comment on above: Performed By: #### T SH, CMP, FT3, BNP, T4, LIPID #### [facility] [address] [address] [address] Aissatou Vásquez GLYCOHEMOGLOBIN A1Con 2021 ADA RECOMMENDATION SEE BELOW Normal [facility] Comment on above: Result Comment: ADA RECOMMENDED LIMIT 4.0 - 6.0 ADA THERAPEUTIC TARGET < 7.0 ACTION SUGGESTED > 7.0 Performed By: #### L DHARA WAITE, HSTROPN #### [facility] [address] [place], [place] [address] Dr. Aissatou Vásquez Glucose [Mass/Vol] 117 mg/dL Normal [facility] Comment on above: Performed By: #### L DHARA WAITE, HSTROPN #### [facility] [address] [address] [address] Aissatou Vásquez HbA1c (Bld) [Mass fraction] 5.7 % Normal 4.5-6.2 [facility] Comment on above: Performed By: #### L DHARA WAITE, HSTROPN #### [facility] [address] [address] [address] Aissatou Vásquez IRONon 06-05-2022 Iron [Mass/Vol] 76.0 ug/dL Normal 65.0-175.0 [facility] Comment on above: Performed By: #### P SASC, VITAD, IRON, B12FOL ####[facility] [address] [address]DrBud Vásquez LIPID PROFILEon 06-05-2022 CHOL-HDL RATIO NORM SEE BELOW Normal [facility] Comment on above: Result Comment: 3.3 - 4.4 LOW RISK 4.4 - 7.1 AVERAGE RISK 7.1 - 11.0 MODERATE RISK >11.0 HIGH RISK Performed By: #### T SH, CMP, FT3, BNP, T4, LIPID ####[facility] [address] [id number] Vásquez Cholesterol [Mass/Vol] 133 mg/dL Normal <=200 [facility] Comment on above: Performed By: #### T SH, CMP, FT3, BNP, T4, LIPID ####[facility] [address] [id number] Vásquez Cholesterol in HDL [Mass/Vol] 79 mg/dL Critically high 40-60 [facility] Comment on above: Performed By: #### T SH, CMP, FT3, BNP, T4, LIPID ####[facility] [address] [address]Dr. Aissatou Vásquez Cholesterol in LDL [Mass/Vol] 43.6 mg/dL Normal [facility] Comment on above: Performed By: #### T SH, CMP, FT3, BNP, T4, LIPID ####[facility] [address] [address]Dr. Aissatou Vásquez Cholesterol.total/Cho lesterol in HDL [Mass ratio] 1.7 {ratio} Normal [facility] Comment on above: Performed By: #### T SH, CMP, FT3, BNP, T4, LIPID ####[facility] [address] [address]Dr. Aissatou Vásquez HDL NORMAL > or = 60 mg/dl - LO W CARDIOVASCULAR RISK <40 mg/dl - HIGH CARDIOVASCULAR RISK Normal [facility] Comment on above: Performed By: #### T SH, CMP, FT3, BNP, T4, LIPID ####[facility] [address] [address]Dr. Aissatou Vásquez LDL CALC NORMAL SEE BELOW Normal [facility] Comment on above: Result Comment: <100 mg/dl OPTIMAL 100 - 129 mg/dl NEAR OR ABOVE OPTIMAL 130 - 159 mg/dl BORDERLINE HIGH 160 - 189 mg/dl HIGH >190 mg/dl VERY HIGH Performed By: #### T SH, CMP, FT3, BNP, T4, LIPID ####[facility] [address] [address]Dr. Aissatou Vásquez Triglyceride [Mass/Vol] 52 mg/dL Normal <=150 [facility] Comment on above: Performed By: #### T SH, CMP, FT3, BNP, T4, LIPID ####[facility] [address] [address]Dr. Aissatou Vásquez VLDL CALC 10.4 mg/dL Normal [facility] Comment on above: Performed By: #### T SH, CMP, FT3, BNP, T4, LIPID ####[facility] [address] [address]Dr. Aissatou Vásquez PROF 14(COMP METB)on 022 Albumin [Mass/Vol] 4.0 g/dL Normal 3.4-5.0 [facility] Comment on above: Performed By: #### T SH, CMP, FT3, BNP, T4, LIPID ####[facility] [address] [address]Dr. Aissatou Vásquez Albumin/Globulin [Mass ratio] 1.1 {ratio} Normal [facility] Comment on above: Performed By: #### T SH, CMP, FT3, BNP, T4, LIPID ####[facility] [address] [address]Dr. Aissatou Vásquez ALP [Catalytic activity/Vol] 137 U/L Critically high 46-116 [facility] Comment on above: Performed By: #### T SH, CMP, FT3, BNP, T4, LIPID ####[facility] [address] [address]Dr. Aissatou Vásquez ALT [Catalytic activity/Vol] 18 U/L Normal 16-63 [facility] Comment on above: Performed By: #### T SH, CMP, FT3, BNP, T4, LIPID ####[facility] [address] [address]Dr. Aissatou Vásquez Anion gap [Moles/Vol] 11.1 mmol/L Normal [facility] Comment on above: Performed By: #### T SH, CMP, FT3, BNP, T4, LIPID ####[facility] [address] [address]Dr. Aissatou Vásquez AST [Catalytic activity/Vol] 9 U/L Critically low 15-37 [facility] Comment on above: Performed By: #### T SH, CMP, FT3, BNP, T4, LIPID ####[facility] [address] [address]Dr. Aissatou Vásquez Bilirubin [Mass/Vol] 0.3 mg/dL Normal 0.2-1.0 [facility] Comment on above: Performed By: #### T SH, CMP, FT3, BNP, T4, LIPID ####[facility] [address] [address]Dr. Aissatou Vásquez Calcium [Mass/Vol] 9.4 mg/dL Normal 8.5-10.1 [facility] Comment on above: Performed By: #### T SH, CMP, FT3, BNP, T4, LIPID ####[facility] [address] [address]Dr. Aissatou Vásquez Chloride [Moles/Vol] 102 mmol/L Normal 98-107 [facility] Comment on above: Performed By: #### T SH, CMP, FT3, BNP, T4, LIPID ####[facility] [address] [address]Dr. Aissatou Vásquez CO2 [Moles/Vol] 29.7 mmol/L Normal 21.0-32.0 [facility] Comment on above: Performed By: #### T SH, CMP, FT3, BNP, T4, LIPID ####[facility] [address] [place], [place] [address]Dr. Aissatou Vásquez Creatinine [Mass/Vol] 1.62 mg/dL Critically high 0.70-1.30 [facility] Comment on above: Performed By: #### T SH, CMP, FT3, BNP, T4, LIPID ####[facility] [address] [address]Dr. Aissatou Vásquez EGFR-AF BURUNDIAN 50 mL/min/1.73m2 Critically low >=60 [facility] Comment on above: Performed By: #### T SH, CMP, FT3, BNP, T4, LIPID ####[facility] [address] [place], [place] [address]Dr. Aissatou Vásquez EGFR-NON AF BURUNDIAN 41 mL/min/1.73m2 Critically low >=60 [facility] Comment on above: Performed By: #### T SH, CMP, FT3, BNP, T4, LIPID ####[facility] [address] [address]Dr. Aissatou Vásquez Globulin (S) [Mass/Vol] 3.8 g/dL Normal [facility] Comment on above: Performed By: #### T SH, CMP, FT3, BNP, T4, LIPID ####[facility] [address] [address]Dr. Aissatou Vásquez Glucose [Mass/Vol] 86 mg/dL Normal 74-106 [facility] Comment on above: Performed By: #### T SH, CMP, FT3, BNP, T4, LIPID ####[facility] [address] [address]Dr. Aissatou Vásquez Potassium [Moles/Vol] 4.8 mmol/L Normal 3.5-5.1 [facility] Comment on above: Performed By: #### T SH, CMP, FT3, BNP, T4, LIPID ####[facility] [address] [place], [place] [address]Dr. Aissatou Vásquez Protein [Mass/Vol] 7.8 g/dL Normal 6.4-8.2 [facility] Comment on above: Performed By: #### T SH, CMP, FT3, BNP, T4, LIPID ####[facility] [address] [place], [place] [address]Dr. Aissatou Vásquez Sodium [Moles/Vol] 138 mmol/L Normal 136-145 [facility] Comment on above: Performed By: #### T SH, CMP, FT3, BNP, T4, LIPID ####[facility] [address] [address]Dr. Aissatou Vásquez Urea nitrogen [Mass/Vol] 41.0 mg/dL Critically high 7.0-18.0 [facility] Comment on above: Performed By: #### T SH, CMP, FT3, BNP, T4, LIPID ####[facility] [address] [place], [place] [address]Dr. Aissatou Vásquez Urea nitrogen/Creatinine [Mass ratio] 25.3 mg/mg Normal [facility] Comment on above: Performed By: #### T SH, CMP, FT3, BNP, T4, LIPID ####[facility] [address] [place], [place] [address]Dr. Aissatou Vásquez T4on 06-05-2022 T4 [Mass/Vol] 9.70 ug/dL Normal 4.50-12.10 [facility] Comment on above: Performed By: #### T SH, CMP, FT3, BNP, T4, LIPID #### [facility] [address] [place], [place] [address] Dr. Aissatou Vásquez TSHon 06-05-2022 TSH 2.525 uIU/mL Normal 0.358-3.740 [facility] Comment on above: Performed By: #### T SH, CMP, FT3, BNP, T4, LIPID ####[facility] [address] [place], [place] [address]UvDr. Aissatou Vásquez VIT B12 AND FOLATEon 022 Cobalamin (Vitamin B12) [Mass/Vol] 1004.0 pg/mL Critically high 193.0-986.0 [facility] Comment on above: Performed By: #### P SASC, VITAD, IRON, B12FOL ####[facility] [address] [address]Dr. Aissatou Vásquez FOLATE 6.10 ng/mL Critically low 8.60-58.90 [facility] Comment on above: Performed By: #### P SASC, VITAD, IRON, B12FOL ####[facility] [address] [address]Dr. Aissatou Vásquez VITAMIN D 25 OHon 06-05-2022 VIT D 25-OH 31.8 ng/mL Normal [facility] Comment on above: Performed By: #### P SASC, VITAD, IRON, B12FOL ####[facility] [address] [id number]. Aissatou Vásquez VIT D RANGES SEE BELOW Normal [facility] Comment on above: Result Comment: <20 ng/mL Vit D deficient 20 - <30 ng/mL Vit D insufficient 30 - 100 ng/mL Vit D sufficient >100 ng/mL Potential Toxicity Performed By: #### P SASC, VITAD, IRON, B12FOL ####[facility] [address] [address]Dr. Aissatou Vásquez Coding Summary.on 01-23-2017 Coding Summary. CODING DATE: 01/23/2017 FINAL [facility] STATUS: Home (Routine DC) PAYOR: Medicare APC DESCRIPTION 5571 Level 1 Imaging with Contrast ADMIT DX: REASON FOR VISIT DX: K86.9 Disease of pancreas, unspecified FINAL DX: PRINCIPAL: K86.9 Disease of pancreas, unspecified SECONDARY: PYMT PROC APC STAT DESCRIPTION DOCTOR NAME DATE NOTE: The code number assigned matches the documented diagnosis and / or procedure in the patient's chart. However, the narrative phrase printed from the coding software may appear abbreviated, or result in slightly different terminology. Coded By: Gloria Blackburn Date Saved: 01/23/2017 10:07 am Normal [facility] Creatinineon 01-22-2017 Creatinine 1.0 mg/dL Normal 0.5-1.3 [facility] Comment on above: Performed By: #### 2 [id number], [id number] ####[facility] [address] [place] [address] eGFRon 01-22-2017 eGFR (black) mL/min/{1.73_m2} Normal >=59 [facility] Comment on above: Order Comment: Order added by Discern Expert. Result Comment: eGFR is race adjusted. AA=. Performed By: #### 2 [id number], [id number] ####[facility] [address] [place] [address] eGFR (non-black) mL/min/{1.73_m2} Normal >=59 [facility] Comment on above: Order Comment: Order added by Discern Expert. Result Comment: Hollock Maker matt kidney disease could be indicated at eGFR's of less than 60 mL/min/1.73m2. Kidney failure is indicated at less than 15 mL/min/1.73m2. Performed By: #### 2 [id number], [id number] ####[facility] [address] [place] [address] Vital Signs Date Time Vital Sign Value Performing Clinician Luci jacob 03-23-2023 13:55-0400 Diastolic blood pressure 68 mm[Hg] Jodi Banerjee DO Work Phone: [facility] 03-23-2023 13:55-0400 Heart rate 51 /min Jodi Banerjee DO Work Phone: [facility] 03-23-2023 13:55-0400 Systolic blood pressure 151 mm[Hg] Jodi Banerjee DO Work Phone: [facility] 08-27-2022 13:12-0500 Diastolic blood pressure 70 mm[Hg] Jodi Banerjee DO Work Phone: [facility] 08-27-2022 13:12-0500 Heart rate 69 /min Jodi Banerjee DO Work Phone: [facility] 08-27-2022 13:12-0500 Systolic blood pressure 156 mm[Hg] Jodi Banerjee DO Work Phone: [facility] Encounters Encounter Date Encounter Type Care Provider Facility Start: 06-24-2023 End: 06-24-2023 ambulatory [facility] Start: 03-23-2023 End: 03-23-2023 ambulatory JODI BANERJEE Facility:[facility] Start: 03-23-2023 End: 03-23-2023 Patient encounter procedure Jodi Banerjee DO Work Phone: Neurology Comment on above: Altered mental statu s, unspecified altered mental status type (Primary Dx); Memory loss Start: 03-23-2023 Telephone encounter uRdi Banerjee DO Work Phone: Neurology Start: 12-25-2022 End: 12-26-2022 ambulatory [facility] Start: 10-27-2022 End: 10-28-[address] PIPE HOPKINS . Facility:[facility] Start: 09-24-2022 End: 09-24-[address] PIPE HOPKINS . Facility:[facility] Start: 09-22-2022 End: 09-22-2022 ambulatory IRINEO [facility] Start: 08-27-2022 End: 08-28-2022 ambulatory PIPE HOPKINS Facility:[facility] Start: 08-27-2022 End: 08-27-2022 Patient encounter procedure Jodi Banerjee DO Work Phone: Neurology Comment on above: Altered mental statu s, unspecified altered mental status type (Primary Dx); Vitamin D deficiency, unspecified Start: 07-11-2022 End: 07-12-[address] PIPE HOPKINS . Facility: Start: 07-08-2022 End: 07-09-[address] PIPE HOPKINS . Facility: Start: 07-06-2022 End: 07-07-[address] PIPE HOPKINS . Facility: Start: 07-01-2022 End: 07-04-2022 Evaluation and management of inpatient DR PIPE HOPKINS . Facility: Start: 06-25-2022 End: 07-05-[address] PIPE HOPKINS . Facility: Start: 06-05-2022 End: 06-06-[address] PIPE HOPKINS . Facility: Start: 06-25-2017 End: 06-26-2017 Ambulatory DEFAULT PHYSICIAN Facility:[facility] Start: 01-22-2017 End: 01-23-2017 Ambulatory SHONDA ALTAMIRANO Facility[facility] Start: 05-27-2011 Patient encounter status Jodi Adameaure Work Phone: [facility] Work Phone: Procedures Date Procedure Procedure Detail Performing Clinician Start: 06-05-[address] ORTIZ HOPKINS . Comment on above: Performed By: #### P SASC, VITAD, IRON, B12FOL ####[facility] [address] [place], [place] [address]Mz. Sheysarah Vásquez Start: 02-20-2020 History of coronary artery bypass grafting S/P CABG (coronary artery bypass graft), PARRA to the LAD, SVG to D1, SVG to OM1, SVG to OM 2, inverted Y grafted PLV and posterior descending artery. Gonormanfrantz Deepaure ASHLEY Work Phone: Plan of Treatment Date Care Activity Detail Author Start: 03-06-2023 Influenza vaccination Influenza Vacc ine (#1) [facility] Start: 08-27-2022 End: 10-27-2022 25-hydroxyvitamin D3 [Mass/volume] in Serum or Plasma [facility] Work Phone: Comment on above: Expected: 08/27/2022 , Expires: 10/27/2022 Start: 08-27-2022 End: 10-27-2022 SYPHILIS TOTAL W/REFLEX [facility] Work Phone: Comment on above: Expected: 08/27/2022 , Expires: 10/27/2022 Start: 07-06-2022 ADVANCE DIRECTIVE DISCUSSION ADVANCE DIRECTIVE DISCUSSION [facility] Start: 07-06-2022 DEPRESSION ASSESSMENT DEPRESSION ASS ESSMENT [facility] Start: 03-06-2022 Influenza vaccination INFLUENZA (#1) [facility] Start: 12-17-2019 DIABETES SCREEN DIABETES SCREEN [facility] Start: 12-17-2019 Diabetes Screening Diabetes Screenin g [facility] Start: 05-21-2012 Hepatitis B surface antibody level LDL CHOLESTEROL [facility] Start: 2003 Pneumococcal Vaccine : 65+ (1 - PCV) Pneumococcal Vaccine: 65+ (1 - PCV) [facility] Start: 2003 PNEUMOCOCCAL: 65+ (1 - PCV) PNEUMOCOCCAL: 65+ (1 - PCV) [facility] Start: 1988 SHINGRIX VACCINE (1 of 2) SHINGRIX VACCINE (1 of 2) [facility] Start: 1957 Urine microalbumin profile [facility] Start: 02-18-1939 COVID-19 VACCINE (#1) COVID-19 VACCI NE (#1) [facility] Immunizations Immunization Date Immunization Notes Care Provider Jewell molina 06-18-2017 influenza virus vaccine, unspecified formulation Jodi Banerjee DO Work Phone: [facility] Payers Date Payer Category Payer Medicare [id number] 2016 Private Health Insurance [facility] AARP SUPPLEMENT [id number] 2016-Present [phone] [address] [place] [address] Indemnity [id number] 2003 Medicare MEDICARE MEDICAR E A AND B [id number] 2003-Present [phone] [place] [address] Medicare [id number] 1959 Medicaid [id number] 1959 Medicare [id number] 1959 Unknown [id number] 1938 Unknown [id number] 593 1938 Unknown [id number] 593 1938 Unknown [id number] 593 1938 Unknown [id number]. 593 1938 Unknown [id number] [id number]. 593 1938 Unknown [id number]. 593 1938 Unknown [id number] [id number]. 593 1938 Unknown [id number] 593 Unknown Social History Date Type Detail Facility Start: 08-27-2022 [facility] History of tobacco use Current smoker [facility] History of tobacco use Cigarette Smoker [facility] Start: 08-27-2022 End: 03-23-2023 Cigarettes smoked current (pack per day) - Reported 1 [facility] Start: 08-27-2022 Tobacco use and exposure Vincent workman smokeless tobacco user [facility] End: 06-02-1971 History of tobacco use User of smokeless tobacco [facility] Start: 08-27-2022 End: 03-23-2023 Alcohol intake Current drinker of alcohol (finding) [facility] Start: 08-27-2022 Tobacco Comment quit 40 yrs ago [facility] Start: 05-21-2011 Alcohol Comment He drinks 4 gl asses of red wine weekly [facility] Start: 1940 Sex Assigned At Not on file [facility] Start: 03-23-2023 Tobacco use panel [facility] National Score (1-10 0), lower number is lower risk 52 [facility] Clinical Notes 05-28-2011 to 06-24-2023 Telephone Encounter - Terri Santos - 03/23/2023 3:27 PM EDTPatient Jodi Vernon, - 03/23/2023 1:46 PM EDLynette Banerjee, DO - 08/27/2022 1:12 PM EST Note Date & Type Note Facility 06-24-2023 Note [place] [facility] Subjective Leanna Nelson is a 82 y.o. year old male patient being seen for 6 mo follow up CAD, hypertension, chronic diastolic heart failure, and carotid artery stenosis. Had routine labs in Mar 2023. Doing well from cardiac standpoint. No recurrent syncope. 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 (CMS/HCC) Chronic migraine without aura, intractable, without status migrainosus Difficulty in walking, not elsewhere classified Hallucinations, unspecified Muscle weakness (generalized) Unspecified lack of coordination Unspecified abdominal hernia without obstruction or gangrene Syncope and collapse Rhabdomyolysis Pulmonary fibrosis, unspecified (CMS/HCC) Other specified disorders of brain Other intervertebral disc degeneration, lumbosacral region CKD (chronic kidney disease) Family History Problem Relation Name Age of Onset Coronary artery disease Brother Heart attack Brother Heart failure Brother Other (mitral valve regurgitation) Brother Social History Tobacco Use Smoking status: Former Types: Cigarettes Passive exposure: Past Smokeless tobacco: Never Substance Use Topics Alcohol use: Never Drug use: Never JORDON Leanna is seen in follow-up. He is a 82-year-old man with prior history of coronary disease status post bypass surgery in 2010, hypertension, hyperlipidemia and carotid artery stenosis. He has history of chronic kidney disease stage IIIb. He was most recently seen in September 2022 in our clinic and was recommended addition of furosemide 40 mg daily due to significant lower extremity swelling. He previously was noted to have PACs on EKG. He takes aspirin 81 mg daily. He is not on statin therapy due to side effects previously. His lipid profile has been well controlled. Today he reports that he has been doing reasonably well. He denies angina. He has no shortness of breath. His leg swelling has responded to furosemide. Review of Systems Cardiovascular: Positive for leg swelling. All other systems reviewed and are negative. Objective Visit Vitals BP 124/60 (BP Location: Left arm, Patient Position: Sitting) Pulse 61 Ht 1.854 m (6' 1 ) Wt 86.2 kg (190 lb) SpO2 99% BMI 25.07 kg/m??? Smoking Status Former BSA 2.11 m??? Physical Exam Constitutional: Appearance: He is well-developed. He is not ill-appearing. HENT: Head: Normocephalic and atraumatic. Nose: Nose normal. Eyes: General: No scleral icterus. Pupils: Pupils are equal, round, and reactive to light. Neck: Thyroid: No thyromegaly. Vascular: No JVD. Cardiovascular: Rate and Rhythm: Normal rate and regular rhythm. Pulses: Radial pulses are 2+ on the right side and 2+ on the left side. Heart sounds: Normal heart sounds. No murmur heard. No friction rub. No gallop. Pulmonary: Effort: Pulmonary effort is normal. No respiratory distress. Breath sounds: Normal breath sounds. No wheezing or rales. Chest: Chest wall: No tenderness. Abdominal: General: Bowel sounds are normal. There is no distension. Palpations: Abdomen is soft. Tenderness: There is no abdominal tenderness. Musculoskeletal: General: No swelling. Cervical back: Neck supple. Right lower le+ Pitting Edema present. Left lower le+ Pitting Edema present. Skin: General: Skin is warm and dry. Neurological: General: No focal deficit present. Mental Status: He is alert and oriented to person, place, and time. Psychiatric: Mood and Affect: Mood normal. Behavior: Behavior is cooperative. Judgment: Judgment normal. Allergies Allergies Allergen Reactions Atorvastatin Hives Medications Current Outpatient Medications: acetaminophen (Tylenol) 500 mg tablet, Take 2 tablets by mouth in the morning and at bedtime., Disp: , Rfl: aspirin 81 mg EC tablet, Take 81 mg by mouth in the morning., Disp: , Rfl: b complex 0.4 mg tablet, Take 1 tablet by mouth in the morning., Disp: , Rfl: cholecalciferol (Vitamin D-3) 50 MCG (2000 UT) tablet, Take 2,000 Units by mouth., Disp: , Rfl: furosemide (Lasix) 40 mg tablet, Take 1 tablet (40 mg) by mouth in the morning., Disp: 30 tablet, Rfl: 11 levothyroxine (Synthroid, Levoxyl) 100 mcg tablet, Take 1 tablet by mouth in the morning., Disp: , Rfl: multivitamin (more content not included)... [facility] 03-23-2023 Note HNO ID: [id number] Author: Jodi Banerjee, DO Service: ? Author Type: Physician Type: Progress Notes Filed: 03/23/2023 2:41 PM Note Text: [facility] [place] Follow-up visit March 23, 2023 HPI: Overall Mr. Nelson, who is accompanied by his brother and niece with his permission, states that he has been feeling I guess I'm feeling that I'm alive. He feels that his memory has better since our last encounter of 08/27/2022. He feels that this is secondary to his ability to state fact and answer questions. He notes easier time recalling older things. He still can have issues with being able to use his phone, checking messages, etc... He does not feel he has this issue. He may not answer his phone if he is doing something. He tends to flip questions back on the person asking them. Since our last encounter he has moved and low lives [facility]. He states he does not like it as he has limited input with family. His brother will come and take him out to dinner or to family events. Some of his other relatives do not come around that much. The activities they have at the facility he may take part in some things such as Bingo. They do no let him push the others in wheelchairs but he likes to help. He can play cards with some of the other residents. He himself does not feel he is forgetful. He does not feel he repeats himself, his brother states he does. He states he stays busy in some of the activities they have for him, in prayer, and some exercises. He states he is now out of therapy. He can watch traffic and others going by. His meals are provided to him and he states he eats regularly. He states he does not like the food. He has a refrigerator he can keep some things in. His protein intake. He feels he is sleeping well. He does not think he snores, gasps for air or stop breathing in his sleep he is aware of. His medications are given to him including his thyroid medication, needing to wait for them so can delay getting them until he eats. He states he is good about changing clothes on his own. He has been showering now on his own, at least twice a week. He feels he has his habit of doing things which others may think of in different ways. His niece and brother note he can be protective and likes his door locked. He has issues with security and privacy and issues with them coming in to get his garbage as he did not want to give it up. He was given money and they could not find it with question if he may have thrown out or not. They note he is very conscious of what he eats including not eating fried foods or food with sugar in them. He is dictating this to others worrying about other residents. There has been an issue with one of the resident's coming to his place and he locks the door. At times they may get in each other's faces if she did not want to do what he wants to when he wants to. They were called by management about this. He will argue much of the time with his brother with many things often thrown back at the person suggesting them, mainly his brother. He has seen by template checker in 01/2023 with suggestion that he get a hearing aide but he refuses. After his last encounter he has followed up with cardiology concerning his heart rate that was auscultated on last encounter. They checked his heart rhythm and thought it was appropriate. This was as via physician in [place]. They deny other changes to his health and/or medications except for the above since our last encounter. PAST MEDICAL HISTORY Diagnosis Date Arthritis Carotid stenosis Coronary artery disease Coronary atherosclerosis of unspecified type of vessel, hughes or graft 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 Dyslipidemia Hypertension Hypertension Hypothyroid Lumbar disc disease Unspecified hypothyroidism Hypothyroidism PAST SURGICAL HISTORY Procedure Laterality Date PAST SURGICAL HISTORY OF CABG times 6 left internal thoracic artery to the [id number] left anterior descending artery, reverse saphenous vein graft to the first diagonal artery, reverse saphenous vein graft to the first obtuse marginal artery, reverse saphenous vein graft to the second obtuse marginal artery, and inverted Y-graft to the posterolateral ventricular branch and the posterior descending artery. RMVL LENS MATERIAL PHACOFRAGMENTATION ASPIR Cataract Extraction Current Outpatient Medications on File Prior to Visit Medication Sig celecoxib (CELEBREX) 100 mg capsule Take 100 mg by mouth once daily. (Patient not taking: Reported on 08/27/2022) furosemide (LASIX) 20 mg tablet Take 1 tablet by mouth once daily for 14 days. ACETAMINOPHEN (TYLENOL 8 HOUR ORAL) Take by mouth as needed. aspirin, enteric coated (ASPIRIN, ENTERIC COATED) 81 mg EC tablet Take 81 mg by mouth once daily. liothyronine (CYTOMEL) 5 mcg tablet Take 5 (more content not included)... [facility] 03-23-2023 Miscellaneous Notes 03/23/2023 After visit Summary faxed to Dr Hopkins with confirmation received. PSS forgot to have pt complete release of information forms. This nurse has placed 2 copies in [place] mail for pt to complete and take to facility to release information to our office. POA was advised via voice message to send a [employer] msg if he had any further question. Terri Santos Lpn documented in this encounter [facility] 03-23-2023 Instructions Jodi Banerjee DO - 03/23/2023 2:40 PM EDT Please sign records release for last blood test results. documented in this encounter [facility] 03-23-2023 History of Present illness Narrative [facility] [place] Follow-up visit March 23, 2023 HPI: Overall Mr. Nelson, who is accompanied by his brother and niece with his permission, states that he has been feeling I guess I'm feeling that I'm alive. He feels that his memory has better since our last encounter of 08/27/2022. He feels that this is secondary to his ability to state fact and answer questions. He notes easier time recalling older things. He still can have issues with being able to use his phone, checking messages, etc... He does not feel he has this issue. He may not answer his phone if he is doing something. He tends to flip questions back on the person asking them. Since our last encounter he has moved and low lives [facility]. He states he does not like it as he has limited input with family. His brother will come and take him out to dinner or to family events. Some of his other relatives do not come around that much. The activities they have at the facility he may take part in some things such as Bingo. They do no let him push the others in wheelchairs but he likes to help. He can play cards with some of the other residents. He himself does not feel he is forgetful. He does not feel he repeats himself, his brother states he does. He states he stays busy in some of the activities they have for him, in prayer, and some exercises. He states he is now out of therapy. He can watch traffic and others going by. His meals are provided to him and he states he eats regularly. He states he does not like the food. He has a refrigerator he can keep some things in. His protein intake. He feels he is sleeping well. He does not think he snores, gasps for air or stop breathing in his sleep he is aware of. His medications are given to him including his thyroid medication, needing to wait for them so can delay getting them until he eats. He states he is good about changing clothes on his own. He has been showering now on his own, at least twice a week. He feels he has his habit of doing things which others may think of in different ways. His niece and brother note he can be protective and likes his door locked. He has issues with security and privacy and issues with them coming in to get his garbage as he did not want to give it up. He was given money and they could not find it with question if he may have thrown out or not. They note he is very conscious of what he eats including not eating fried foods or food with sugar in them. He is dictating this to others worrying about other residents. There has been an issue with one of the resident's coming to his place and he locks the door. At times they may get in each other's faces if she did not want to do what he wants to when he wants to. They were called by management about this. He will argue much of the time with his brother with many things often thrown back at the person suggesting them, mainly his brother. He has seen by template checker in 01/2023 with suggestion that he get a hearing aide but he refuses. After his last encounter he has followed up with cardiology concerning his heart rate that was auscultated on last encounter. They checked his heart rhythm and thought it was appropriate. This was as via physician in [place]. They deny other changes to his health and/or medications except for the above since our last encounter. PAST MEDICAL HISTORY Diagnosis Date Arthritis Carotid stenosis Coronary artery disease Coronary atherosclerosis of unspecified type of vessel, hughes or graft 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 Dyslipidemia Hypertension Hypertension Hypothyroid Lumbar disc disease Unspecified hypothyroidism Hypothyroidism PAST SURGICAL HISTORY Procedure Laterality Date PAST SURGICAL HISTORY OF CABG times 6 left internal thoracic artery to the [id number] left anterior descending artery, reverse saphenous vein graft to the first diagonal artery, reverse saphenous vein graft to the first obtuse marginal artery, reverse saphenous vein graft to the second obtuse marginal artery, and inverted Y-graft to the posterolateral ventricular branch and the posterior descending artery. RMVL LENS MATERIAL PHACOFRAGMENTATION ASPIR Cataract Extraction Current Outpatient Medications on File Prior to Visit Medication Sig celecoxib (CELEBREX) 100 mg capsule Take 100 mg by mouth once daily. (Patient not taking: Reported on 08/27/2022) furosemide (LASIX) 20 mg tablet Take 1 tablet by mouth once daily for 14 days. ACETAMINOPHEN (TYLENOL 8 HOUR ORAL) Take by mouth as needed. aspirin, enteric coated (ASPIRIN, ENTERIC COATED) 81 mg EC tablet Take 81 mg by mouth once daily. liothyronine (CYTOMEL) 5 mcg tablet Take 5 mcg by mouth once daily. levothyroxine (SYNTHROID) 100 mcg tablet Take 1 tablet by mouth once daily. No current facility-administered medications on file prior to visit. Social History Tobacco Use Smoking status: Former Packs/day: 1.00 Years: 15.00 Additional pack years: 0.00 Total pack years: 15.00 Types: Cigarettes Smokeless tobacco: Former Quit date: 06/02/1971 Tobacco comments: quit 40 yrs ago Substance Use Topics Alcohol use: Yes Alcohol/week: 3.3 standard drinks of alcohol Types: 4 Glasses of wine per week Comment: He drinks 4 glasses of red wine weekly Drug use: No ALLERGIES Allergen Reactions Lipitor [Atorvastat* Hives Review of Systems: See HPI for pertinent positives. Physical Exam: 03/23/23 1355 BP: 151/68 BP Site: Right Arm BP Position: Sitting BP Cuff Size: Regular Adult Pulse: (!) 51 Patient is alert and in no distress. Dress is appropriate. Mood is appropriate Breathing appears regular and unstressed Neurologic examination: Cognitively intact. No deficits. CN: Pupils equal and reactive to light, extraocular movements intact with no nystagmus, face is symmetric with no facial droop, facial sensation intact bilaterally to light touch V1-3, hearing intact bilaterally, shoulder shrug is symmetric Motor exam shows 5/5 strength symmetric through the upper and lower extremities in all groups tested Sensory intact to light touch in all extremities. Deep tendon reflexes are symmetric at the biceps, brachioradialis, triceps, patella, and Achilles bilaterally Henderson's responses are both flexion. Coordination: No dysmetria on finger to nose. No tremors noted. No drift seen Gait narrow base with small short steps on left. MMSE= deferred today (last ) He is alert and oriented to person, month, year, state, season, and President. He is able to perform a complex math problem on the first attempt. +hard or hearing+ Labs/studies: Component Latest Ref Rng & Units 08/27/2022 Syphilis Screen Result Nonreactive Nonreactive Syphilis Interpretation Cannot exclude recent Treponemal infection if specimen collected within 7-10 days after appearance of suspect lesions or 2-3 weeks after an exposure. Clinical correlation is required. 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 R41.82 Altered mental status, unspecified altered mental status type Comment: See above, noting memory issues PLAN: Chart reviewed including interval progress notes, messages, recent imaging, and laboratory results. 2. Encouraged physical activity and exercise as regular exercise has been shown to help most when it comes to memory loss. Also encouraged daily activities to stimulate thought such as puzzles, games, word, searches, hobbies, etc... 3. Discussed memory and the treatments for such both medication and non-medication approaches. This discussion included the medications currently available for memory and that these medications do not improve memory but rather are meant to help slow the progression of memory loss over time. After discussion he/they elects to hold on medication for this issue at this time. Discussed option for medication such as depkote (divalproex) to help in mood- they will discuss and let me know if he elects to start this. 4. Further discussed that he have hearing evaluation noted poor hearing noted in office. 5. Reviewed blood test results from 08/27/2022 including for syphilis (negative) and vitamin D level (low at 28.6). 6. Suggested supplementation of vitamin D further and that he discuss further with his family practice/primary team. 7. There are noted plans for further change in living situation with change in floor where he is at currently is upcoming. 8. Request last blood test results. Thank you for allowing me to see this patient if there are any question or concerns please feel free to contact me at my clinic. Sincerely, Jodi Ennis I spent 38 minutes in the visit, with more than 50% of the total [id number] time of the visit in counseling / coordination of care. documented in this encounter [facility] 12-25-2022 Note [facility] Subjective Leanna Nelson is a 82 y.o. year old male patient being seen for Follow-up (3 month follow up ) 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 (CMS/HCC) Chronic migraine without aura, intractable, without status migrainosus Difficulty in walking, not elsewhere classified Hallucinations, unspecified Muscle weakness (generalized) Unspecified lack of coordination Unspecified abdominal hernia without obstruction or gangrene Syncope and collapse Rhabdomyolysis Pulmonary fibrosis, unspecified (CMS/HCC) Other specified disorders of brain Other intervertebral disc degeneration, lumbosacral region CKD (chronic kidney disease) Family History Problem Relation Name Age of Onset Coronary artery disease Brother Heart attack Brother Heart failure Brother Other (mitral valve regurgitation) Brother Social History Tobacco Use Smoking status: Former Types: Cigarettes Passive exposure: Past Smokeless tobacco: Never Substance Use Topics Alcohol use: Never Drug use: Never HPI Leanna is seen in follow-up. He is a 82-year-old man with prior history of coronary disease status post bypass surgery in 2010, hypertension, hyperlipidemia and carotid artery stenosis. He has history of chronic kidney disease stage IIIb. He was most recently seen in September 2022 in our clinic and was recommended addition of furosemide 40 mg daily due to significant lower extremity swelling. Today he reports that he has been doing reasonably well. He denies angina. He has no shortness of breath. His leg swelling has responded to furosemide. He takes aspirin 81 mg daily. He is not on statin therapy due to side effects previously. His lipid profile has been well controlled. His blood pressure is elevated today. He lives at an assisted living facility and his blood pressure readings from their are usually controlled. His blood pressure at PCP visits are controlled. He previously was noted to have PACs on EKG. Review of Systems Cardiovascular: Positive for leg swelling and near-syncope. Negative for chest pain, claudication, cyanosis, dyspnea on exertion, irregular heartbeat, orthopnea, palpitations, paroxysmal nocturnal dyspnea and syncope. Bilateral leg swelling Objective Visit Vitals BP 156/76 (BP Location: Left arm, Patient Position: Sitting, BP Cuff Size: Adult) Pulse 69 Ht 1.854 m (6' 1 ) Wt 89.5 kg (197 lb 6.4 oz) SpO2 99% BMI 26.04 kg/m??? Smoking Status Former BSA 2.15 m??? Physical Exam Constitutional: Appearance: He is well-developed. He is not ill-appearing. HENT: Head: Normocephalic and atraumatic. Nose: Nose normal. Eyes: General: No scleral icterus. Pupils: Pupils are equal, round, and reactive to light. Neck: Thyroid: No thyromegaly. Vascular: No JVD. Cardiovascular: Rate and Rhythm: Normal rate and regular rhythm. Pulses: Radial pulses are 2+ on the right side and 2+ on the left side. Heart sounds: Normal heart sounds. No murmur heard. No friction rub. No gallop. Pulmonary: Effort: Pulmonary effort is normal. No respiratory distress. Breath sounds: Normal breath sounds. No wheezing or rales. Chest: Chest wall: No tenderness. Abdominal: General: Bowel sounds are normal. There is no distension. Palpations: Abdomen is soft. Tenderness: There is no abdominal tenderness. Musculoskeletal: General: No swelling. Cervical back: Neck supple. Right lower le+ Pitting Edema present. Left lower le+ Pitting Edema present. Skin: General: Skin is warm and dry. Neurological: General: No focal deficit present. Mental Status: He is alert and oriented to person, place, and time. Psychiatric: Mood and Affect: Mood normal. Behavior: Behavior is cooperative. Judgment: Judgment normal. Allergies Allergies Allergen Reactions Atorvastatin Hives Medications Current Outpatient Medications: acetaminophen (Tylenol) 500 mg tablet, Take 2 tablets by mouth in the morning and at bedtime., Disp: , Rfl: aspirin 81 mg EC tablet, Take 81 mg by mouth in the morning., Disp: , Rfl: b complex 0.4 mg tablet, Take 1 tablet by mouth in the morning., Disp: , Rfl: cefdinir (Omnicef) 300 mg capsule, Take 2 capsules by mouth in the morning., Disp: , Rfl: choleca (more content not included)... [facility] 09-22-2022 Note Cardiovascular Medic ine [facility] SUBJECTIVE Chief Complaint Patient presents with office visit brother made appt had appt with neuro thought they heard something when listening to heart. confirmed Leanna Nelson is a 82 y.o. male here for follow-up. HPI PMHx: CAD s/p CABG 2010, HTN, HLD, former tobacco use, hypothyroidism, SAGAR (mild) FMHx: brother hx of IA/CAD and HFrEF 09/22/2022 He is accompanied by his brother. He was admitted back in 06/2022 d/t a fall, treated for rhabdo. He currently lives in a nursing home facility. [facility] His weight is up about 30# in the last 3 months. He has also had worsened leg swelling. They are wrapping his legs with CANDE bandage, attempting daily if he allows them. He was recently at a neurology appt where they noticed he had ectopic beats every third beat and recommended he follow-up with cardiology. He denies c/o CP, dyspnea, orthopnea, PND, dizziness/LH, palpitations, syncope/near syncope. He ambulates with a walker. 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 Social History Tobacco Use Smoking status: Former Types: Cigarettes Passive exposure: Past Smokeless tobacco: Never Substance Use Topics Alcohol use: Never Drug use: Never Allergies Allergen Reactions Atorvastatin Hives Review of Systems Constitutional: Positive for weight gain. Negative for chills, decreased appetite, fever and malaise/fatigue. Cardiovascular: Positive for leg swelling. Negative for chest pain, claudication, dyspnea on exertion, irregular heartbeat, near-syncope, orthopnea, palpitations, paroxysmal nocturnal dyspnea and syncope. Respiratory: Negative for cough. OBJECTIVE Visit Vitals BP 148/63 (BP Location: Right arm, Patient Position: Sitting, BP Cuff Size: Adult) Pulse 56 Resp 12 Wt 91.6 kg (202 lb) SpO2 98% BMI 26.65 kg/m??? Smoking Status Former BSA 2.17 m??? Medications: Current Outpatient Medications: acetaminophen (Tylenol) 500 mg tablet, Take 2 tablets by mouth in the morning and at bedtime., Disp: , Rfl: aspirin 81 mg EC tablet, Take 81 mg by mouth in the morning., Disp: , Rfl: b complex 0.4 mg tablet, Take 1 tablet by mouth in the morning., Disp: , Rfl: cholecalciferol (Vitamin D-3) 50 MCG (2000 UT) tablet, Take 2,000 Units by mouth., Disp: , Rfl: liothyronine (Cytomel) 5 mcg tablet, Take 1 tablet by mouth in the morning., Disp: , Rfl: multivitamin tablet, Take 1 tablet by mouth in the morning., Disp: , Rfl: cefdinir (Omnicef) 300 mg capsule, Take 2 capsules by mouth in the morning., Disp: , Rfl: furosemide (Lasix) 40 mg tablet, Take 1 tablet (40 mg) by mouth in the morning., Disp: 30 tablet, Rfl: 11 levothyroxine (Synthroid, Levoxyl) 100 mcg tablet, Take 1 tablet by mouth in the morning., Disp: , Rfl: Physical Exam Constitutional: Appearance: Normal appearance. He is normal weight. HENT: Head: Normocephalic and atraumatic. Right Ear: External ear normal. Left Ear: External ear normal. Eyes: Extraocular Movements: Extraocular movements intact. Pupils: Pupils are equal, round, and reactive to light. Neck: Vascular: No carotid bruit. Cardiovascular: Rate and Rhythm: Regular rhythm. Bradycardia present. Pulses: Normal pulses. Heart sounds: Normal heart sounds. Comments: Occasional premature beat Pulmonary: Effort: Pulmonary effort is normal. Breath sounds: Normal breath sounds. Abdominal: General: Bowel sounds are normal. Palpations: Abdomen is soft. Musculoskeletal: General: Normal range of motion. Cervical back: Neck supple. Right lower leg: Edema present. Left lower leg: Edema present. Comments: +2-3 BLE edema Skin: General: Skin is warm and dry. Neurological: General: No focal deficit present. Mental Status: He is alert and oriented to person, place, and time. Psychiatric: Mood and Affect: Mood normal. Behavior: Behavior normal. Thought Content: Thought content normal. Judgment: Judgment normal. Labs/Testing/Procedures: ECHO (07/02/2022) -RVSP 54, IVC dilated Labs 08/16/2021 CBC-unremarkable CMP-creatinine 1.72, BUN 33, K4.8, NA 140, GFR 38, ALT 23, AST 13 Carotid artery ultrasound 04/18/2021: 0 to 49% flow stenosis in the internal booker (more content not included)... [facility] 09-22-2022 Note Review of Systems Cardiovascular: Positive for leg swelling and near-syncope. Negative for chest pain, claudication, cyanosis, dyspnea on exertion, irregular heartbeat, orthopnea, palpitations, paroxysmal nocturnal dyspnea and syncope. Bilateral leg swelling [facility] 08-27-2022 Note HNO ID: [id number] Author: Jodi Banerjee, DO Service: ? Author Type: Physician Type: Progress Notes Filed: 08/27/2022 2:35 PM Note Text: [facility] [place] New Patient Consultation August 27, 2022 HPI: Mr. Nelson, who is accompanied by his brother and niece, presents today secondary to issues of mental status changes. He states that he himself is unaware of why he is here. His brother and niece state the issue is more of forgetfulness. His birthday was last week and they told him ahead of time they would come to pick him up the next day but a few minutes after a phone call to tell him they'd get him the following day. He has had this issue over several months or longer, worse in the last few months. He calls his brother confusing replays of games versus actual games. He can have issues with being able to use his phone, checking messages, etc... He may not answer his phone if he is doing something. They note that at times it may take several hours to reach him. He himself does not feel forgetful. He does not feel he repeats himself, his brother states he does. He does not feel he has a hearing issues but has not had it tested. He lives in a care facility at the moment and they are looking at assisted living. Prior to a fall in 06/2022 he states he tripped but there was question of low heart rate and he was on the flood for several hours before they came over. They found him with his pants down in the hallway. There are no plans for him to go home. They note he was told that he could not drive after having evaluation that he failed. He continued to drive despite being told not to by his doctor. His brother would take him to the grocery store but would not get much on his own unless someone went around with him. He could call family stating he is hungry often as out of food. While he was at home on his own, last end of 06/2022. He was eating as via microwave or going out. He did not use the stove or burners. He feels he sleeps well. He does not think he snores or gasp for air or stop breathing in his sleep he is aware of. In regards to his medications he takes two tylenol twice a day. He was not taking other medications regularly but denies he was forgetting to take his thyroid medication correctly. His family question and think there was some confusion about taking his medications. He switched himself off of aspirin to Alero a fast acting aspirin. Family had concern over tylenol use and questioned he may have been taking multiple tylenol multiple times a day. He states he is good about changing clothes. He has not been showering on his own even though at the facility he is at they take him down, but he has only showered once on his own while there. They have been working with hospice social worker at the facility he is at but questioning level of care he needs. They are not aware of any memory issues they are aware of. He denies personal history of head injury, stroke, or seizures. He denies he has been on medication for memory before. He states the reason he fell in 06/2022 was that he was watching television he drank two small bottles of wine rather than one and was tipsy crossing his legs causing his fall. Afterwards he was not able to get back up on his own. PAST MEDICAL HISTORY Diagnosis Date Arthritis Carotid stenosis Coronary artery disease Coronary atherosclerosis of unspecified type of vessel, hughes or graft 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 Dyslipidemia Hypertension Hypertension Hypothyroid Lumbar disc disease Unspecified hypothyroidism Hypothyroidism PAST SURGICAL HISTORY Procedure Laterality Date PAST SURGICAL HISTORY OF CABG times 6 left internal thoracic artery to the [id number] left anterior descending artery, reverse saphenous vein graft to the first diagonal artery, reverse saphenous vein graft to the first obtuse marginal artery, reverse saphenous vein graft to the second obtuse marginal artery, and inverted Y-graft to the posterolateral ventricular branch and the posterior descending artery. RMVL LENS MATERIAL PHACOFRAGMENTATION ASPIR Cataract Extraction Current Outpatient Medications on File Prior to Visit Medication Sig ACETAMINOPHEN (TYLENOL 8 HOUR ORAL) Take by mouth as needed. aspirin, enteric coated (ASPIRIN, ENTERIC COATED) 81 mg EC tablet Take 81 mg by mouth once daily. liothyronine (CYTOMEL) 5 mcg tablet Take 5 mcg by mouth once daily. levothyroxine (SYNTHROID) 100 mcg tablet Take 1 tablet by mouth once daily. celecoxib (CELEBREX) 100 mg capsule Take 100 mg by mouth once daily. (Patient not taking: Reported on 08/27/2022) furosemide (LASIX) 20 mg tablet Take 1 tablet by mouth once daily for 14 days. No current facility-administered medications on file prior to visit. Social History Tobacco Use Smoking status: Former Packs/day: 1.0 (more content not included)... [facility] 08-27-2022 History of Present illness Narrative [facility] [place] New Patient Consultation August 27, 2022 HPI: Mr. Nelson, who is accompanied by his brother and niece, presents today secondary to issues of mental status changes. He states that he himself is unaware of why he is here. His brother and niece state the issue is more of forgetfulness. His birthday was last week and they told him ahead of time they would come to pick him up the next day but a few minutes after a phone call to tell him they'd get him the following day. He has had this issue over several months or longer, worse in the last few months. He calls his brother confusing replays of games versus actual games. He can have issues with being able to use his phone, checking messages, etc... He may not answer his phone if he is doing something. They note that at times it may take several hours to reach him. He himself does not feel forgetful. He does not feel he repeats himself, his brother states he does. He does not feel he has a hearing issues but has not had it tested. He lives in a care facility at the moment and they are looking at assisted living. Prior to a fall in 06/2022 he states he tripped but there was question of low heart rate and he was on the flood for several hours before they came over. They found him with his pants down in the hallway. There are no plans for him to go home. They note he was told that he could not drive after having evaluation that he failed. He continued to drive despite being told not to by his doctor. His brother would take him to the grocery store but would not get much on his own unless someone went around with him. He could call family stating he is hungry often as out of food. While he was at home on his own, last end of 06/2022. He was eating as via microwave or going out. He did not use the stove or burners. He feels he sleeps well. He does not think he snores or gasp for air or stop breathing in his sleep he is aware of. In regards to his medications he takes two tylenol twice a day. He was not taking other medications regularly but denies he was forgetting to take his thyroid medication correctly. His family question and think there was some confusion about taking his medications. He switched himself off of aspirin to Alero a fast acting aspirin. Family had concern over tylenol use and questioned he may have been taking multiple tylenol multiple times a day. He states he is good about changing clothes. He has not been showering on his own even though at the facility he is at they take him down, but he has only showered once on his own while there. They have been working with hospice social worker at the facility he is at but questioning level of care he needs. They are not aware of any memory issues they are aware of. He denies personal history of head injury, stroke, or seizures. He denies he has been on medication for memory before. He states the reason he fell in 06/2022 was that he was watching television he drank two small bottles of wine rather than one and was tipsy crossing his legs causing his fall. Afterwards he was not able to get back up on his own. PAST MEDICAL HISTORY Diagnosis Date Arthritis Carotid stenosis Coronary artery disease Coronary atherosclerosis of unspecified type of vessel, hughes or graft 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 Dyslipidemia Hypertension Hypertension Hypothyroid Lumbar disc disease Unspecified hypothyroidism Hypothyroidism PAST SURGICAL HISTORY Procedure Laterality Date PAST SURGICAL HISTORY OF CABG times 6 left internal thoracic artery to the [id number] left anterior descending artery, reverse saphenous vein graft to the first diagonal artery, reverse saphenous vein graft to the first obtuse marginal artery, reverse saphenous vein graft to the second obtuse marginal artery, and inverted Y-graft to the posterolateral ventricular branch and the posterior descending artery. RMVL LENS MATERIAL PHACOFRAGMENTATION ASPIR Cataract Extraction Current Outpatient Medications on File Prior to Visit Medication Sig ACETAMINOPHEN (TYLENOL 8 HOUR ORAL) Take by mouth as needed. aspirin, enteric coated (ASPIRIN, ENTERIC COATED) 81 mg EC tablet Take 81 mg by mouth once daily. liothyronine (CYTOMEL) 5 mcg tablet Take 5 mcg by mouth once daily. levothyroxine (SYNTHROID) 100 mcg tablet Take 1 tablet by mouth once daily. celecoxib (CELEBREX) 100 mg capsule Take 100 mg by mouth once daily. (Patient not taking: Reported on 08/27/2022) furosemide (LASIX) 20 mg tablet Take 1 tablet by mouth once daily for 14 days. No current facility-administered medications on file prior to visit. Social History Tobacco Use Smoking status: Former Packs/day: 1.00 Years: 15.00 Pack years: 15.00 Types: Cigarettes Smokeless tobacco: Former Quit date: 06/02/1971 Tobacco comments: quit 40 yrs ago Substance Use Topics Alcohol use: Yes Alcohol/week: 3.3 standard drinks Types: 4 Glasses of wine per week Comment: He drinks 4 glasses of red wine weekly Drug use: No ALLERGIES Allergen Reactions Lipitor [Atorvastat* Hives Review of Systems: Constitutional: denies fever, weight loss, loss of appetite ENT: +loss of hearing, vertigo Vision: denies blurring vison, double vision/diplopia Dermatologic: denies rash Cardiopulmonary: denies chest pain, palpitations, or skipped heart beats Respiratory: denies shortness of breath GI: denies recent nausea, vomiting, diarrhea, constipation : denies incontinence Psych: denies depression, anxiety, or suicidal thoughts Sleep: denies issues with sleeping, pauses in breathing while asleep Heme: denies easy bruising/bleeding Musculoskeletal: denies weakness, muscle atrophy, +joint ache/pain Back/spine: +low back, -mid back, -cervical pains Neuro: denies tremors, weakness, loss of feeling, dizziness, seizure, blackout, paresthesia, facial paresthesia, facial weakness, difficulty in speech, slurring of words, dysarthria, dysphagia, memory loss, headache Physical Exam: 08/27/22 1312 BP: 156/70 BP Site: Left Arm BP Position: Sitting BP Cuff Size: Large Adult Pulse: 69 Patient is alert and in no distress. Dress is appropriate. Mood is appropriate Heart is regular rate and rhythm with early beat every third beat, no murmur or bruit auscultated Breathing appears regular and unstressed Neurologic examination: Cognitively intact. No deficits. CN: Pupils equal and reactive to light, extraocular movements intact with no nystagmus, face is symmetric with no facial droop, facial sensation intact bilaterally to light touch V1-3, hearing intact bilaterally, shoulder shrug is symmetric Motor exam shows 5/5 strength symmetric through the upper and lower extremities in all groups tested Sensory intact to light touch and temperature in all extremities. Vibratory sensation is decreased at the first toes bilaterally. Deep tendon reflexes are symmetric at the biceps, brachioradialis, triceps, patella, and Achilles bilaterally Henderson's responses are both flexion. Coordination: No dysmetria on finger to nose. No tremors noted. No drift seen Gait narrow base with small sharp steps on left. MMSE= 22/30 missed one for day of the week, date, town, one for naming, one for repetition, one for sentence writing, and two in delayed recall. +hard or hearing+ Labs/studies: MRI brain report 07/11/2022 noting 1. No intracranial hemorrhage, mass, or acute findings to account for patient's symptoms. 2. Age consistent atrophy and chronic small vessel ischemic changes; not significantly changed since prior MRI study. Outside blood test reviewed including 07/10/2022: blood cultures (+Pantoea agglomerans) 07/04/2022: CBC, CPK, Mg, Phos, albumin, CMP, PT/INR 07/03/2022: CBC, CPK (331), blood cult (-), Mg, CMP, PT/INR, 07/02/2022: CPK (915), CK-MB (81), 07/01/2022: blood culture panel. CPK (1646), COVID, UDS, UA, CMP, Myoglobin (2041), Trop/HSTROP (102.3), TSH, CBC 06/05/2022 Ammonia, BNP, CBC, T3, HbA1c, iron, lipid panel, CMP, vitamin B12 (1004), TSH, folate, vitamin D (32) CT abd/pelvis report 07/03/2022 noting 1. Irregular wall thickening of the cecum extending to the level of the ileocecal valve. CT is not a sensitive or specific modality for evaluation of bowel mucosal lesions. This could reflect artifact from stool, although more aggressive etiologies including colonic malignancy are on the differential and today's finding should be correlated with colonoscopy. There is no indication of bowel obstruction or pathologic lymphadenopathy. 2. Severe aortic atherosclerosis. 3. Bibasilar atelectasis. Echocardiogram 07/02/2022 report noting Global left ventricular systolic function is normal; visually estimated ejection fraction is 55 to 60%. No significant wall motion abnormalities. Diastolic function is indeterminate. Biatrial enlargement. The right ventricle is normal in size and systolic function. Mild to moderate tricuspid regurgitation. Moderately elevated right-sided pressures. CT cervical spine 07/01/2022 noting 1. No fractures or loss of vertebral body height throughout the cervical spine. 2. 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 CT brain 07/01/2022 report noting 1. Chronic small vessel ischemic change. 2. Otherwise, no CT evidence for acute pathology. 3. If symptoms continue, MRI may help better delineate. Chest x-ray report 07/01/2022 noting 1. No acute pulmonary disease. 2. Evidence for old granulomatous disease with calcified granuloma in the right midlung zone and calcified right hilar lymph node redemonstrated. 3. Normal heart size with evidence of prior open heart surgery. 4. No acute osseous abnormality. 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 PLAN: Chart reviewed including previous/interval progress notes, messages, recent imaging, and laboratory results. 2. Discussed his placement that is upcoming and recommend memory charles in assisted living when looking at placement. 3. Encouraged physical activity and exercise as regular exercise has been shown to help most when it comes to memory loss. Also encouraged daily activities to stimulate thought such as puzzles, games, word, searches, hobbies, etc... 4. Discussed memory and the treatments for such both medication and non-medication approaches. This discussion included the medications currently available for memory and that these medications do not improve memory but rather are meant to help slow the progression of memory loss over time. After discussion he/they elects to hold on medication at this time. 5. Discussed that he have hearing evaluation noted poor hearing noted in office. 6. Noting on ausculation that he is having early/ectopic beats in his heart rate (every third beat) recommend follow-up with cardiology. 7. Blood test for syphilis and recheck vitamin D. Thank you for allowing me to see this patient if there are any question or concerns please feel free to contact me at my clinic. Sincerely, Jodi Ennis I spent 85 minutes in the visit, with more than 50% of the total [id number] time of the visit in counseling / coordination of care. documented in this encounter [facility] 05-28-2011 History of Past i llness Narrative Problem Noted Date Resolved Date Stress hyperglycemia 05/28/2011 06/01/2011 Overview: RHI gtt per ICU protocol Mechanically assisted ventilation 05/28/2011 05/29/2011 Overview: Extubated 05/29/11 no increased work of breathing Hypotension 05/28/2011 05/30/2011 Overview: Levo off this morning, hemodynamically stable. documented as of this encounter (statuses as of 08/27/2022) [facility] History of Past illness Narrative* Problem Noted Date Diagnosed Date Resolved Date Stress hyperglycemia 05/28/2011 011 Overview: RHI gtt per ICU protocol Mechanically assisted ventilation 05/28/2011 05/29/2011 Overview: Extubated 05/29/11 no increased work of breathing Hypotension 05/28/2011 05/30/2011 Overview: Levo off this morning, hemodynamically stable. documented as of this encounter (statuses as of 03/24/2023) [facility] History of Past illness Narrative* Problem Noted Date Diagnosed Date Resolved Date Stress hyperglycemia 05/28/2011 011 Overview: RHI gtt per ICU protocol Mechanically assisted ventilation 05/28/2011 05/29/2011 Overview: Extubated 05/29/11 no increased work of breathing Hypotension 05/28/2011 05/30/2011 Overview: Levo off this morning, hemodynamically stable. documented as of this encounter (statuses as of 03/24/2023) [facility] Diagnosis Altered mental status, unspecified altered mental status type- Primary Vitamin D deficiency, unspecified [facility] Diagnosis Altered mental status, unspecified altered mental status type- Primary Memory loss documented in this encounter [facility] Summary Purpose Family History No Family History Records FoundNo Family History Records FoundNo Family History Records FoundNo Family History Records FoundNo Family History Records FoundNo Family History Records Found Advance Directives No Advanced Directives Records FoundDocuments on File Type Date 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 Advance Directive(s) 08/27/2022 1:25 PM Additional Source Comments (unrecognized sect ion and content) No Status Records FoundNo Status Records FoundNo Status Records FoundNo Status Records FoundNo Status Records FoundNo Status Records Found INFORMATION SOURCE (unrecogn ized section and content) DATE CREATED AUTHOR 12/29/2017 [facility] DATE CREATED AUTHOR AUTHOR'S ORGANIZ ATION 12/30/2017 [facility] DATE CREATED AUTHOR AUTHOR'S ORGANIZ ATION 08/28/2022 [facility] DATE CREATED AUTHOR AUTHOR'S ORGANIZ ATION 12/12/2022 [facility] DATE CREATED AUTHOR AUTHOR'S ORGANIZ ATION 03/25/2023 [facility] DATE CREATED AUTHOR AUTHOR'S ORGANIZ ATION 06/25/2023 [facility] Source Comments (unrecognize d section and content) In the event this informatio n is protected by the Federal Confidentiality of Alcohol and Drug Abuse Patient Records regulations: The Federal rules restrict any use of the information to criminally investigate or prosecute any alcohol or drug abuse patient.[facility] the event this information is protected by the Federal Confidentiality of Alcohol and Drug Abuse Patient Records regulations: The Federal rules restrict any use of the information to criminally investigate or prosecute any alcohol or drug abuse patient.[facility] the event this information is protected by the Federal Confidentiality of Alcohol and Drug Abuse Patient Records regulations: The Federal rules restrict any use of the information to criminally investigate or prosecute any alcohol or drug abuse patient.[facility] Reason for Visit (unrecogniz ed section and content) Reason Comments New Patient Reason Comments Follow Up Care Teams (unrecognized sec tion and content) Contract Negotiation Specialist Relationship Specialty Start Date End Date Pipe Hopkins MD [address] [id number] PCP - General 05/19/11 [facility] [address] [place] [address] Primary Staff Physician Cardiology 09/21/18 Contract Negotiation Specialist Relationship Specialty Start Date End Date Pipe Hopkins MD [address] [place] [address] PCP - General 05/19/11 [facility] [address] [place] [address] Primary Staff Physician Cardiology 09/21/18 Contract Negotiation Specialist Relationship Specialty Start Date End Date Pipe Hopkins MD [address] [place] [phone] PCP - General 05/19/11 [facility] [address] [facility] [place] [address] Primary Staff Physician Cardiology 09/21/18 FOR RECORDS PERTAINING TO PATIENTS WHO ARE OR HAVE BEEN ENROLLED IN A CHEMICAL DEPENDENCY/SUBSTANCEABUSE PROGRAM, SOME INFORMATION MAY BE OMITTED. This clinical summary was aggregated from multiple sources. Caution should be exercised in using it in the provision of clinical care. This summary normalizes information from multiple sources, and as a consequence, information in this document may materially change the coding, format and clinical context of patient data. In addition, data may be omitted in some cases. CLINICAL DECISIONS SHOULD BE BASED ON THE PRIMARY CLINICAL RECORDS. [facility] [employer] provides no warranty or guarantee of the accuracy or completeness of information in this document.
[2023-07-16 14:39] LABS: Basophils Absolute Auto 0.1 10^3/uL (0.0-0.1); Eosinophils Absolute Auto 0.8 10^3/uL (0.0-0.7); Eosinophils Percent Auto 9.2 % (0.9-7.0); Hematocrit 40.1 % (42.0-54.0); Hemoglobin 12.5 g/dL (14.0-18.0); Immature Granulocytes Abs Auto 0.02 10^3/uL (0.00-0.03); Immature Granulocytes Pct Auto 0.2 % (0.0-0.5); Lymphocytes Absolute Auto 2.6 10^3/uL (1.2-3.8); Lymphocytes Percent Auto 30.9 % (20.5-60.0); Mean Corpuscular HGB Conc 31.2 g/dL (29.9-35.2); Mean Corpuscular Hemoglobin 29.6 pg (25.9-34.0); Mean Platelet Volume 9.1 fL (9.5-13.5); Monocytes Absolute Auto 0.8 10^3/uL (0.3-0.8); Monocytes Percent Auto 9.5 % (1.7-12.0); Neutrophils Absolute Auto 4.1 10^3/uL (1.4-6.5); Neutrophils Percent Auto 49.2 % (43.0-75.0); Platelet Count 201 10^3/uL (150-450); Red Blood Count 4.22 10^6/uL (4.70-6.10); Red Cell Distribution Width 13.7 % (11.0-15.0); White Blood Count 8.3 10^3/uL (4.0-11.0)
[2023-07-16 15:03] LABS: Anion Gap 9.6; BUN Creatinine Ratio 22.8; Calcium 9.1 mg/dL (8.5-10.1); Chloride 107 mmol/L (98-107); Estimated GFR (African America 33 (>=60); Estimated GFR (Non-African Ame 28 (>=60); Glucose 89 mg/dL (74-106); Potassium 4.6 mmol/L (3.5-5.1); Sodium 142 mmol/L (136-145)
== END 2023-07-16 14:13 | disposition home or self-care (01) ==
PROVIDERS: PCP Family Medicine; Visit Provider Family Medicine
DX: R53.83 Other fatigue (principal); I10 Essential (primary) hypertension; I50.31 Acute diastolic (congestive) heart failure
CPT/HCPCS: 36415; 80048; 83880; 85025

== ENCOUNTER 2023-09-18 16:14 | Outpatient (OUT) | payer MEDICARE, SELFPAY ==
--- OUTSIDE RECORDS SUMMARY | 2023-09-18 16:26 | XMS_ITS | CCD ---
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 Role Phone PHYSICIAN, DEFAULT Unavailable Unavailable PHYSICIAN, DEFAULT Unavailable Unavailable EVELIA, SUNJUK Unavailable Unavailable EVELIA, SUNJUK Unavailable Unavailable EVELIA, SUNJUK Unavailable Unavailable Pipe Hopkins~[phone] UNKNOWN Unavailable Unavailable Pipe Hopkins MD Primary Care Provider [place] Unavailable PIPE HOPKINS Primary Care Unavailable JODI BANERJEE Referring Unavailab antoine Farrell, DR BETANCUR Consulting Unavailable FAWWAD, KAMARA H Admitting Unavailable FAWMARTHAD, KAMARA H Attending Unavailable AURY .DR BETANCUR Primary Care Unavailable PAY ., DR HUDSON Consulting Unavailable MICHELLE BOO Consulting Unavailable STEPHEN ROUSE Consulting Unavailable ABIDA TOTH Consulting Unavailable KOKO ROMANO Consulting Unavailable FAWWAD, KAMARA H Consulting Unavailable BERNADETTE BEDOLLA Consulting Unavailable FAROOQ SIMPSON Consulting Unavailable AURY Farrell, DR BETANCUR Attending Unavailable HOY ., DR BETANCUR Admitting Unavailable HOY ., DR BETANCUR Consulting Unavailable HOY ., DR BETANCUR Primary Care Unavailable ZILEONARD, DR LEATHA Workman Consulting Unavailable AURY ., DR BETANCUR Admitting Unavailable HOY ., DR BETANCUR Consulting Unavailable HOY ., DR BETANCUR Attending [...] BETANCUR Primary Care Unavailable HOY ., DR BTEANCUR Admitting Unavailable Alejandroy Pipe XIONG Primary Care Provider [phone] [place] Unavailable JODI BANERJEE Attending Unavailab PIPE Griffith Primary Care Unavailable JODI BANERJEE Attending Unavailab PIPE Griffith Primary Care Unavailable AYSE BARNES Attending Unavailable IRINEO BOSS Attending Unavailable AYSE BARNES Attending Unavailable AMANDA IRBY Attending Unavailable PIPE HOPKINS Referring Unavailable Allergies Allergy Classification Reported Allergen(s) Allergy Type Date of Onset Reaction(s) Facility (2 sources) atorvastatin; Translations: [Lipitor] Drug Allergy [facility] Repository (5 sources) atorvastatin; Translations: [ATORVASTATIN CALCIUM] Drug Allergy 03-28-2014 [facility] (1 source) atorvastatin; Translations: [ATORVASTATIN] Drug Allergy 03-28-2014 [facility] Repository Medications Completed/Discontinued Medications Medication Drug Class(es) [...] on above: Take 1 tablet by shyla th once daily for 14 days. levothyroxine sodium 0.1 mg oral tablet (3 sources) l-Thyroxine Start: 06-09-2011 take 1 tablet by mouth once daily levothyroxine (SYNTHROID) 100 mcg tablet Take 1 tablet by mouth once daily. 0 06/09/2011 Active Comment on above: Take 1 tablet by shyla th once daily. liothyronine sodium 0.005 mg oral [...] on above: Take 1 tablet by shyla th once daily. Problems Active Problems Problem Classification [...] Coronary arteriosclerosis; Translations: [Atherosclerotic heart disease of hopland coronary artery without angina pectoris] Onset: 05-27-2011 [...] mental status, unspecified] Episodic Residual codes; unclassified (6 sources) Altered mental status, unspecified; Translations: [Altered mental status, unspecified altered mental status type] Onset: 07-11-2022 Episodic Residual codes; unclassified (1 source) Amnesia; Translations: [Other amnesia] 03-23-2023 Episodic Thyroid disorders (4 sources) Hypothyroidism; Translations: [Hypothyroidism, unspecified] Onset: 05-28-2011 Chronic Unclassified (3 sources) SUMMARY Onset: 05-30-2011 Unclassified (1 source) CONTACT W/AND (SUSP) EXPOS COVID-19; Translations: [CONTACT W/AND (SUSP) EXPOS COVID-19] Onset: 07-14-2022 Urinary tract infections (1 source) Urinary tract infection, site not specified; Translations: [Urinary tract infection, site not specified] Onset: 08-11-2023 Episodic Past or Other Problems Problem Classification Problem [...] Onset: 07-14-2022 Episodic Other aftercare (1 source) nursing home (current) use of aspirin; Translations: [CORRECTION CURRENT USE OF ASPIRIN] Onset: 07-14-2022 Episodic Other aftercare (1 source) 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; Translations: [OTH CORRECTION CURRENT [...] cardiovascular function study] Onset: 05-21-2011 07-01-2021 Episodic Screening and history of mental health and substance abuse codes (1 source) Personal history of nicotine dependence; Translations: [PERSONAL HISTORY OF NICOTINE DEPEND] Onset: 07-14-2022 Episodic Results Test Name Value Interpretation Reference Range Facility URINALYSISon 08-11-2023 Bilirubin Ql (U) Negative Normal NEG [facility] Comment on above: Performed By: #### U A #### [facility] ([id number]) [address] [place] [address] [place] [address] BLOOD/HGB Negative Normal NEG [facility] Comment on above: Performed By: #### U A #### [facility] ([id number]) [address] [place] [address] [place] [address] Color (U) YELLOW Normal YELLOW [facility] Comment on above: Performed By: #### U A #### [facility] ([id number]) [address] [place] [address] [place] [address] Glucose Ql (U) Negative Normal NEG [facility] Comment on above: Performed By: #### U A #### [facility] ([id number]) [address] [place] [address] [place] [address] Ketones Ql (U) Negative Normal NEG [facility] Comment on above: Performed By: #### U A #### [facility] ([id number]) [address] [place] [address] [place] [address] Leukocyte esterase Test strip Ql (U) Negative Normal NEG [facility] Comment on above: Performed By: #### U A #### [facility] ([id number]) [address] [place] [address] Nitrite Ql (U) Negative Normal NEG [facility] Comment on above: Performed By: #### U A #### [facility] ([id number]) [address] [place] [address] pH (U) 6.0 [pH] Normal 5.0-8.5 [facility] Comment on above: Performed By: #### U A #### [facility] ([id number]) [address] [place] [address] Protein Ql (U) Negative Normal NEG [facility] Comment on above: Performed By: #### U A #### [facility] ([id number]) [address] [place] [address] Specific gravity (U) [Rel density] 1.025 Normal 1.003-1.035 [facility] Comment on above: Performed By: #### U A #### [facility] ([id number]) [address] [place] [address] TURBIDITY CLEAR Normal CLEAR [facility] Comment on above: Performed By: #### U A #### [facility] ([id number]) [address] [place] [address] Urobilinogen Qn (U) 0.2 {Ilene'U}/dL Normal <1.1 [facility] Comment on above: Performed By: #### U A #### [facility] ([id number]) [address] [place] [address] URINE CULTUREon 08-11-2023 Bacteria identified Cx Nom (U) CULTURE RESULTS <10,000 ORGANISMS/ML NORMAL URO GENITAL LOIS Normal [facility] Comment on above: Performed By: #### 6 30-4 #### [facility] ([id number]) [address] [facility], [address] [place] [address] Office Visiton 06-24-2023 Follow-up visit [id number] Leanna Nelson 1940 M Date Provider Department Center 06/24/2023 LucasKIARACHELSEAAYSE MOHR KADEEM Benitez Family History Problem Relation Age of Onset Coronary artery disease Brother Heart attack Brother Heart failure Brother Other Brother Family Status - Relation Status Age at Brother Level of Service:98013 [place] OFFICE/OUTPATIENT ESTABLISHED LOW MDM 20 MIN Normal [facility] CNOVon 03-23-2023 CNOV Office Visit (NEUSHF ) LEANNA NELSON ([id number]) 1940 M Date Time Provider Department 03/23/23 2:00 PM JODI BANERJEE During your visit today, we recorded the following information about you: Pulse Blood pressure 51/minute 151/68 Jodi Banerjee DO 03/23/2023 2:[address] [facility] Follow-up visit March 23, 2023 HPI: Overall [...] encounter he has moved and low lives [facility]. He states he does not [...] mainly his brother. He has seen by die cast supervisor in 01/2023 with suggestion that he get a hearing aide but he refuses. After his last encounter he has followed up with cardiology concerning his heart rate that was auscultated on last encounter. They checked his heart rhythm and thought it was appropriate. This was as via physician in [place]. They deny other changes to his health and/or medications except for the above since our last encounter. PAST MEDICAL HISTORY Diagnosis Date Arthritis Carotid stenosis Coronary artery disease Coronary atherosclerosis of unspecified type of vessel, hopland or graft 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 Dyslipidemia Hypertension Hypertension Hypothyroid Lumbar disc disease Unspecified hypothyroidism Hypothyroidism PAST SURGICAL HISTORY Procedure Laterality Date PAST SURGICAL HISTORY OF CABG times 6 left internal thoracic artery to the pkc-ev-qjvxvg left anterior descending artery, reverse saphenous vein [...] mouth onc (more content not included)... Normal [facility] 03-23-2023 [facility] Telephone (NEUAV4) LEANNA NELSON ([id number]) 1940 [place] Date Time Provider Department 03/23/23 [...] advised via voice message [facility] had any further question. 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/2020 Encounter Status:Closed by TERRI SANTOS on 03/23/23 [facility] Office Visiton 12-25-2022 Follow-up visit [id number] Leanna Nelson 1940 M Date Provider Department Center 12/25/2022 [facility]-AYSE BARNES [facility] Family History Problem Relation Age of Onset Coronary artery disease Brother Heart attack Brother Heart failure Brother Other Brother Family Status - Relation Status Age at Brother Level of Service:92958 [place] OFFICE/OUTPATIENT ESTABLISHED MOD [facility] 30-39 MIN Reason for Visit and Comments: Follow-up [345968] - 3 month follow up Normal [facility] CT CHEST WO CONon 10-27-2022 CT CHEST [...] by: LEATHA GAVIRIA Date: 2022-10-27 10:00 Normal [facility] LIPID PROFILEon 09-24-2022 CHOL-HDL RATIO NORM SEE BELOW Normal [facility] Comment on above: Result Comment: 3.3 - 4.4 LOW RISK 4.4 - 7.1 AVERAGE RISK 7.1 - 11.0 MODERATE RISK >11.0 HIGH RISK Performed By: #### L ERASTO CMP ####[facility] [address] [place] [address]Dr. Aissatou Vásquez Cholesterol [Mass/Vol] 149 mg/dL Normal <=200 [facility] Comment on above: Performed By: #### L ERASTO, CMP ####[facility] [address] [place] [id number]. Aissatou Vásquez Cholesterol in HDL [Mass/Vol] 83 mg/dL Critically high 40-60 [facility] Comment on above: Performed By: #### L IPID, CMP ####[facility] [address] [place] [address]Dr. Aissatou Vásquez Cholesterol in LDL [Mass/Vol] 58.6 mg/dL Normal [facility] Comment on above: Performed By: #### L IPID, CMP ####[facility] [address] [place] [address]Dr. Aissatou Vásquez Cholesterol.total/Cho lesterol in HDL [Mass ratio] 1.8 {ratio} Normal [facility] Comment on above: Performed By: #### L IPID, CMP ####[facility] [address] [place] [address]Dr. Aissatou Vásquez HDL NORMAL > or = 60 mg/dl - LO W CARDIOVASCULAR RISK <40 mg/dl - HIGH CARDIOVASCULAR RISK Normal [facility] Comment on above: Performed By: #### L IPID, CMP ####[facility] [address] [place] [address]Dr. Aissatou Vásquez LDL CALC NORMAL SEE BELOW Normal [facility] Comment on above: Result Comment: <100 mg/dl OPTIMAL 100 - 129 mg/dl NEAR OR ABOVE OPTIMAL 130 - 159 mg/dl BORDERLINE HIGH 160 - 189 mg/dl HIGH >190 mg/dl VERY HIGH Performed By: #### L IPID, CMP ####[facility] [address] [place] [address]Dr. Aissatou Vásquez Triglyceride [Mass/Vol] 37 mg/dL Normal <=150 [facility] Comment on above: Performed By: #### L IPID, CMP ####[facility] [address] [place] [address]Dr. Aissatou Vásquez VLDL CALC 7.4 mg/dL Normal [facility] Comment on above: Performed By: #### L IPID, CMP ####[facility] [address] [place] [address]Dr. Aissatou Vásquez PROF 14(COMP METB)on 023 Albumin [Mass/Vol] 3.8 g/dL Normal 3.4-5.0 [facility] Comment on above: Performed By: #### L IPID, CMP ####[facility] [address] [place] [address]Dr. Aissatou Vásquez Albumin/Globulin [Mass ratio] 1.0 {ratio} Normal [facility] Comment on above: Performed By: #### L IPID, CMP ####[facility] [address] [place] [address]Dr. Aissatou Vásquez ALP [Catalytic activity/Vol] 98 U/L Normal 46-116 [facility] Comment on above: Performed By: #### L IPID, CMP ####[facility] [address] [place], [place] [address]Dr. Aissatou Vásquez ALT [Catalytic activity/Vol] 25 U/L Normal 16-63 [facility] Comment on above: Performed By: #### L IPID, CMP ####[facility] [address] [place] [address]Dr. Aissatou Vásquez Anion gap [Moles/Vol] 15.5 mmol/L Normal [facility] Comment on above: Performed By: #### L IPID, CMP ####[facility] [address] [place], [place] [address]Dr. Aissatou Vásquez AST [Catalytic activity/Vol] 21 U/L Normal 15-37 [facility] Comment on above: Performed By: #### L IPID, CMP ####[facility] [address] [place] [address]Dr. Aissatou Vásquez Bilirubin [Mass/Vol] 0.5 mg/dL Normal 0.2-1.0 [facility] Comment on above: Performed By: #### L IPID, CMP ####[facility] [address] [place] [address]Dr. Aissatou Vásquez Calcium [Mass/Vol] 9.5 mg/dL Normal 8.5-10.1 [facility] Comment on above: Performed By: #### L IPID, CMP ####[facility] [address] [place] [address]Dr. Aissatou Vásquez Chloride [Moles/Vol] 107 mmol/L Normal 98-107 [facility] Comment on above: Performed By: #### L IPID, CMP ####[facility] [address] [place], [place] [address]Dr. Aissatou Vásquez CO2 [Moles/Vol] 23.0 mmol/L Normal 21.0-32.0 [facility] Comment on above: Performed By: #### L IPID, CMP ####[facility] [address] [place], [place] [address]Dr. Aissatou Vásquez Creatinine [Mass/Vol] 1.75 mg/dL Critically high 0.70-1.30 [facility] Comment on above: Performed By: #### L IPID, CMP ####[facility] [address] [place], [place] [address]Dr. Aissatou Vásquez EGFR-AF GUATEMALAN 45 mL/min/1.73m2 Critically low >=60 [facility] Comment on above: Performed By: #### L IPID, CMP ####[facility] [address] [place], [place] [address]Dr. Aissatou Vásquez EGFR-NON AF GUATEMALAN 37 mL/min/1.73m2 Critically low >=60 [facility] Comment on above: Performed By: #### L IPID, CMP ####[facility] [address] [place], [place] [address]Dr. Aissatou Vásquez Globulin (S) [Mass/Vol] 3.7 g/dL Normal [facility] Comment on above: Performed By: #### L IPID, CMP ####[facility] [address] [place] [address]Dr. Aissatou Vásquez Glucose [Mass/Vol] 83 mg/dL Normal 74-106 [facility] Comment on above: Performed By: #### L IPID, CMP ####[facility] [address] [place], [place] [address]Dr. Aissatou Vásquez Potassium [Moles/Vol] 4.5 mmol/L Normal 3.5-5.1 [facility] Comment on above: Performed By: #### L IPID, CMP ####[facility] [address] [place], [place] [address]Cc. Aissatou Vásquez Protein [Mass/Vol] 7.5 g/dL Normal 6.4-8.2 [facility] Comment on above: Performed By: #### L IPID, CMP ####[facility] [address] [place], [place] [address]Yx. Aissatou Vásquez Sodium [Moles/Vol] 141 mmol/L Normal 136-145 [facility] Comment on above: Performed By: #### L IPID, CMP ####[facility] [address] [place], [place] [address]Po. Aissatou Vásquez Urea nitrogen [Mass/Vol] 46.0 mg/dL Critically high 7.0-18.0 [facility] Comment on above: Performed By: #### L IPID, CMP ####[facility] [address] [place] [id number]. Aissatou Vásquez Urea nitrogen/Creatinine [Mass ratio] 26.3 mg/mg Normal [facility] Comment on above: Performed By: #### L IPID, CMP ####[facility] [address] [place] [id number]. Aissatou Vásquez Office Visiton 09-22-2022 Follow-up visit [id number] Leanna Nelson Torey 1940 M Date Provider Department Center 09/22/2022 Alexandrea-IRINEO BOSS CARD [facility] No family history on file Level of Service:99955 [place] OFFICE/OUTPATIENT ESTABLISHED MOD MDM 30-39 MIN Reason for Visit and Comments: office visit [Other] - brother made appt had appt with neuro thought they heard something when listening to heart. confirmed Normal [facility] 25([place])D3 [facility] 2022 25-hydroxyvitamin D3 [Mass/Vol] 28.6 ng/mL Low 31.0-80.0 [facility] Comment on above: Order Comment: Speci men Type: BLOOD SPECIMEN Ordering Facility: [facility] Address: [address] [place] [address] [place], [place] [address] Result Comment: Clas sification of 25 [place] Vitamin D status: Deficiency/Insufficiency: < or = 30 ng/ml. Sufficiency/Optimal Levels: 31-80 ng/mL Toxicity: > 100 ng/mL. Test performed by chemiluminescent immunoassay. Performed By: #### 1 989-3 #### [facility] CLIA [id number] [address] [place] [address] STATES OF [facility] CNOVon 08-27-2022 CNOV Office Visit (NEUAV4 ) GOPILEANNA DEGROOT Torey ([id number]) 1940 M Date Time Provider Department 08/27/22 1:00 PM JODI BANERJEE4 During your visit today, we recorded the following information about you: Pulse Blood pressure 69/minute 156/70 Jodi Banerjee DO 08/27/2022 2:35 PM Addendum [facility] [place] New Patient Consultation August 27, 2022 HPI: [...] while there. They have been working with clinical social work therapist at the facility he is at but [...] Coronary atherosclerosis of unspecified type of vessel, hopland or graft 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 Dyslipidemia Hypertension Hypertension Hypothyroid Lumbar disc disease Unspecified hypothyroidism Hypothyroidism PAST SURGICAL HISTORY Procedure Laterality Date PAST SURGICAL HISTORY OF CABG times 6 left internal thoracic artery to the taj-nu-psgoef left anterior descending artery, reverse saphenous vein [...] on 08/07 (more content not included)... Normal [facility] Reagin and Treponema pallidu m IgG and IgM [Interp]on 08-27-2022 SYPHILIS INTERPRETATION Cannot exclude recent Treponemal infection if specimen collected within 7-10 days after appearance of suspect lesions or 2-3 weeks after an exposure. Clinical correlation is required. Normal [facility] Comment on above: Order Comment: Speci men Type: BLOOD SPECIMEN Ordering Facility: [facility] Address: [address] [address] Performed By: #### 7 3752-8 #### [facility] CLIA [id number] [address] [place] [address] [place] T. pallidum IgG+IgM IA Ql (S) Non-Reactive Normal Nonreactive [facility] Comment on above: Order Comment: Speci men Type: BLOOD SPECIMEN Ordering Facility: [facility] Address: [address] [place] [address] Performed By: #### 7 3752-8 #### [facility] CLIA [id number] [address] [place] [address] [place] CREATININEon 07-11-2022 Creatinine [Mass/Vol] 2.09 mg/dL Critically high 0.70-1.30 [facility] Comment on above: Performed By: #### C ADAM #### [facility] [address] [address] [address] Aissatou Vásquez EGFR-AF GUATEMALAN 37 mL/min/1.73m2 Critically low >=60 [facility] Comment on above: Performed By: #### C ADAM #### [facility] [address] [place], [place] [address] Dr. Aissatou Vásquez EGFR-NON AF GUATEMALAN 30 mL/min/1.73m2 Critically low >=60 [facility] Comment on above: Performed By: #### C ADAM #### [facility] [address] [address] [address] Aissatou Vásquez MRI BRAIN WO CONon [...] LEATHA GAVIRIA Date: 2022-07-11 15:11 Normal [facility] CULTURE BLOODon 07-10-2022 Microscopic examination of blood, [...] Tetracycline S P Tobramycin S P Normal [facility] Comment on above: Performed By: #### B LDCX2 ####[facility] [address] [place] [address]Dr. Aissatou Vásquez CBC AUTO DIFFon 07-04-2022 BASO # 0.0 103/ul Normal 0.0-0.1 [facility] Comment on above: Performed By: #### L IVER, BMP, HSTROPN #### [facility] [address] [address] [address] Aissatou Vásquez Basophils/100 WBC (Bld) 0.3 % Normal 0.2-2.0 [facility] Comment on above: Performed By: #### L IVER, BMP, HSTROPN #### [facility] [address] [address] [address] Aissatou Vásquez EO # 0.0 103/ul Normal 0.0-0.7 [facility] Comment on above: Performed By: #### L IVER, BMP, HSTROPN #### [facility] [address] [address] [address] Aissatou Vásquez Eosinophils/100 WBC (Bld) 0.6 % Critically low 0.9-7.0 [facility] Comment on above: Performed By: #### L IVER, BMP, HSTROPN #### [facility] [address] [address] [address] Aissatou Vásquez Erythrocyte distribution width (RBC) [Ratio] 13.7 % Normal 11.0-15.0 [facility] Comment on above: Performed By: #### L IVER, BMP, HSTROPN #### [facility] [address] [address] [address] Aissatou Vásquez Hematocrit (Bld) [Volume fraction] 34.2 % Critically low 42.0-54.0 [facility] Comment on above: Performed By: #### L IVER, BMP, HSTROPN #### [facility] [address] [place] [address] Dr. Aissatou Vásquez Hemoglobin (Bld) [Mass/Vol] 10.7 g/dL Critically low 14.0-18.0 [facility] Comment on above: Performed By: #### L IVER, BMP, HSTROPN #### [facility] [address] [place] [address] Dr. Aissatou Vásquez IG # 0.02 10e3/ul Normal 0.00-0.03 [facility] Comment on above: Performed By: #### L IVER, BMP, HSTROPN #### [facility] [address] [place] [address] Dr. Aissatou Vásquez IG % 0.3 % Normal 0.0-0.5 [facility] Comment on above: Performed By: #### L IVER, BMP, HSTROPN #### [facility] [address] [place] [address] Dr. Aissatou Vásquez LYMPH # 1.7 103/ul Normal 1.2-3.8 [facility] Comment on above: Performed By: #### L IVER, BMP, HSTROPN #### [facility] [address] [place] [address] Dr. Aissatou Vásquez Lymphocytes/100 WBC (Bld) 25.6 % Normal 20.5-60.0 [facility] Comment on above: Performed By: #### L IVER, BMP, HSTROPN #### [facility] [address] [place] [address] Dr. Aissatou Vásquez MANUAL DIFF REQ NO Normal [facility] Comment on above: Performed By: #### L IVER, BMP, HSTROPN #### [facility] [address] [place] [address] Dr. Aissatou Vásquez MCH (RBC) [Entitic mass] 29.6 pg Normal 25.9-34.0 [facility] Comment on above: Performed By: #### L IVER, BMP, HSTROPN #### [facility] [address] [place] [address] Dr. Aissatou Vásquez MCHC (RBC) [Mass/Vol] 31.3 g/dL Normal 29.9-35.2 [facility] Comment on above: Performed By: #### L IVER, BMP, HSTROPN #### [facility] [address] [place] [address] Dr. Aissatou Vásquez MCV (RBC) [Entitic vol] 94.5 fL Critically high 80.0-94.0 [facility] Comment on above: Performed By: #### L IVER, BMP, HSTROPN #### [facility] [address] [place] [address] Dr. Aissatou Vásquez MONO # 0.7 103/ul Normal 0.3-0.8 [facility] Comment on above: Performed By: #### L IVER, BMP, HSTROPN #### [facility] [address] [place] [address] Dr. Aissatou Vásquez Monocytes/100 WBC (Bld) 11.2 % Normal 1.7-12.0 [facility] Comment on above: Performed By: #### L IVER, BMP, HSTROPN #### [facility] [address] [place] [address] Dr. Aissatou Vásquez NEUT # 4.0 103/ul Normal 1.4-6.5 [facility] Comment on above: Performed By: #### L IVER, BMP, HSTROPN #### [facility] [address] [place] [address] Dr. Aissatou Vásquez Neutrophils/100 WBC (Bld) 62.0 % Normal 43.0-75.0 [facility] Comment on above: Performed By: #### L IVER, BMP, HSTROPN #### [facility] [address] [place] [address] Dr. Aissatou Vásquez Platelet mean volume (Bld) [Entitic vol] 10.4 fL Normal 9.5-13.5 [facility] Comment on above: Performed By: #### L IVER, BMP, HSTROPN #### [facility] [address] [address] [address] Aissatou Vásquez PLT 134 103/ul Critically low 150-450 [facility] Comment on above: Performed By: #### L IVER, BMP, HSTROPN #### [facility] [address] [address] [address] Aissatou Vásquez RBC 3.62 106/ul Critically low 4.70-6.10 [facility] Comment on above: Performed By: #### L IVER, BMP, HSTROPN #### [facility] [address] [address] [address] Aissatou Vásquez WBC 6.5 103/ul Normal 4.0-11.0 [facility] Comment on above: Performed By: #### L IVER, BMP, HSTROPN #### [facility] [address] [place] [address] Dr. Aissatou Vásquez CPKon 07-04-2022 CK [Catalytic activity/Vol] 149 U/L Normal 39-308 [facility] Comment on above: Performed By: #### L IVER, BMP, HSTROPN #### [facility] [address] [address] [address] Aissatou Vásquez MAGNESIUMon 07-04-2022 Magnesium [Mass/Vol] 1.7 mg/dL Critically low 1.8-2.4 [facility] Comment on above: Performed By: #### L IVER, BMP, HSTROPN #### [facility] [address] [place] [address] Dr. Aissatou Vásquez PHOSPHORUSon 07-04-2022 Phosphate [Mass/Vol] 3.6 mg/dL Normal 2.6-4.7 [facility] Comment on above: Performed By: #### L IVER, BMP, HSTROPN #### [facility] [address] [place] [address] Dr. Aissatou Vásquez PROF 14(COMP METB)on 022 Albumin [Mass/Vol] 2.8 g/dL Critically low 3.4-5.0 [facility] Comment on above: Performed By: #### L IVFRANTZ BMP, HSTROPN #### [facility] [address] [place] [address] Dr. Aissatou Vásquez Albumin/Globulin [Mass ratio] 0.9 {ratio} Normal [facility] Comment on above: Performed By: #### L IVFRANTZ BMP, HSTROPN #### [facility] [address] [address] [address] Aissatou Vásquez ALP [Catalytic activity/Vol] 86 U/L Normal 46-116 [facility] Comment on above: Performed By: #### L IVFRANTZ BMP, HSTROPN #### [facility] [address] [place] [address] Dr. Aissatou Vásquez ALT [Catalytic activity/Vol] 50 U/L Normal 16-63 [facility] Comment on above: Performed By: #### L IVFRANTZ BMP, HSTROPN #### [facility] [address] [place] [address] Dr. Aissatou Vásquez Anion gap [Moles/Vol] 11.6 mmol/L Normal [facility] Comment on above: Performed By: #### L IVDHARA LANDRY, HSTROPN #### [facility] [address] [place] [address] Dr. Aissatou Vásquez AST [Catalytic activity/Vol] 41 U/L Critically high 15-37 [facility] Comment on above: Performed By: #### L IVFRANTZ BMP, HSTROPN #### [facility] [address] [place] [address] Dr. Aissatou Vásquez Bilirubin [Mass/Vol] 0.4 mg/dL Normal 0.2-1.0 [facility] Comment on above: Performed By: #### L IVFRANTZ BMP, HSTROPN #### [facility] [address] [place] [address] Dr. Aissatou Vásquez Calcium [Mass/Vol] 8.7 mg/dL Normal 8.5-10.1 [facility] Comment on above: Performed By: #### L MARIANN BMP, HSTROPN #### [facility] [address] [address] [address] Aissatou Vásquez Chloride [Moles/Vol] 106 mmol/L Normal 98-107 [facility] Comment on above: Performed By: #### L IVER, BMP, HSTROPN #### [facility] [address] [place] [address] Dr. Aissatou Vásquez CO2 [Moles/Vol] 27.0 mmol/L Normal 21.0-32.0 [facility] Comment on above: Performed By: #### L IVER, BMP, HSTROPN #### [facility] [address] [place] [address] Dr. Aissatou Vásquez Creatinine [Mass/Vol] 1.99 mg/dL Critically high 0.70-1.30 [facility] Comment on above: Performed By: #### L IVER, BMP, HSTROPN #### [facility] [address] [place] [address] Dr. Aissatou Vásquez EGFR-AF GUATEMALAN 39 mL/min/1.73m2 Critically low >=60 [facility] Comment on above: Performed By: #### L IVER, BMP, HSTROPN #### [facility] [address] [place] [address] Dr. Aissatou Vásquez EGFR-NON AF GUATEMALAN 32 mL/min/1.73m2 Critically low >=60 [facility] Comment on above: Performed By: #### L IVER, BMP, HSTROPN #### [facility] [address] [place] [address] Dr. Aissatou Vásquez Globulin (S) [Mass/Vol] 3.1 g/dL Normal [facility] Comment on above: Performed By: #### L IVER, BMP, HSTROPN #### [facility] [address] [place] [address] Dr. Aissatou Vásquez Glucose [Mass/Vol] 93 mg/dL Normal 74-106 [facility] Comment on above: Performed By: #### L IVER, BMP, HSTROPN #### [facility] [address] [address] [address] Aissatou Vásquez Potassium [Moles/Vol] 4.6 mmol/L Normal 3.5-5.1 [facility] Comment on above: Performed By: #### L IVER, BMP, HSTROPN #### [facility] [address] [address] [address] Aissatou Vásquez Protein [Mass/Vol] 5.9 g/dL Critically low 6.4-8.2 [facility] Comment on above: Performed By: #### L IVER, BMP, HSTROPN #### [facility] [address] [place] [address] Dr. Aissatou Vásquez Sodium [Moles/Vol] 140 mmol/L Normal 136-145 [facility] Comment on above: Performed By: #### L IVER, BMP, HSTROPN #### [facility] [address] [place] [address] Dr. Aissatou Vásquez Urea nitrogen [Mass/Vol] 50.0 mg/dL Critically high 7.0-18.0 [facility] Comment on above: Performed By: #### L IVER, BMP, HSTROPN #### [facility] [address] [place] [address] Dr. Aissatou Vásquez Urea nitrogen/Creatinine [Mass ratio] 25.1 mg/mg Normal [facility] Comment on above: Performed By: #### L IVER, BMP, HSTROPN #### [facility] [address] [place] [address] Dr. Aissatou Vásquez PROTIMEon 07-04-2022 INR Coag (PPP) [Relative time] 1.05 {INR} Normal [facility] Comment on above: Performed By: #### C ADAM #### [facility] [address] [place] [address] Dr. Aissatou Vásquez INR GUIDELINES SEE BELOW Normal [facility] Comment on above: Result Comment: ELISABETH RED INR: 2.0 - 3.0 CONDITIONS NOT LISTED BELOW 2.5 - 3.5 FOR PROSTHETIC HEART VALVE REPLACEMENT 2.5 - 3.5 RECURRENT THROMBOSIS Performed By: #### C ADAM #### [facility] [address] [place] [address] Dr. Aissatou Vásquez PT Coag (PPP) [Time] 11.3 s Normal 9.0-11.6 [facility] Comment on above: Performed By: #### C ADAM #### [facility] [address] [place] [address] Dr. Aissatou Vásquez CBC AUTO DIFFon 07-03-2022 BASO # 0.0 103/ul Normal 0.0-0.1 [facility] Comment on above: Performed By: #### L IVER, BMP, HSTROPN #### [facility] [address] [place] [address] Dr. Aissatou Vásquez Basophils/100 WBC (Bld) 0.3 % Normal 0.2-2.0 [facility] Comment on above: Performed By: #### L IVER, BMP, HSTROPN #### [facility] [address] [place] [address] Dr. Aissatou Vásquez EO # 0.0 103/ul Normal 0.0-0.7 [facility] Comment on above: Performed By: #### L IVER, BMP, HSTROPN #### [facility] [address] [place] [address] Dr. Aissatou Vásquez Eosinophils/100 WBC (Bld) 0.3 % Critically low 0.9-7.0 [facility] Comment on above: Performed By: #### L IVER, BMP, HSTROPN #### [facility] [address] [place] [address] Dr. Aissatou Vásquez Erythrocyte distribution width (RBC) [Ratio] 13.8 % Normal 11.0-15.0 [facility] Comment on above: Performed By: #### L IVER, BMP, HSTROPN #### [facility] [address] [place] [address] Dr. Aissatou Vásquez Hematocrit (Bld) [Volume fraction] 31.7 % Critically low 42.0-54.0 [facility] Comment on above: Performed By: #### L IVER, BMP, HSTROPN #### [facility] [address] [place] [address] Dr. Aissatou Vásquez Hemoglobin (Bld) [Mass/Vol] 10.2 g/dL Critically low 14.0-18.0 [facility] Comment on above: Performed By: #### L IVER, BMP, HSTROPN #### [facility] [address] [place] [address] Dr. Aissatou Vásquez IG # 0.02 10e3/ul Normal 0.00-0.03 [facility] Comment on above: Performed By: #### L IVER, BMP, HSTROPN #### [facility] [address] [place] [address] Dr. Aissatou Vásquez IG % 0.3 % Normal 0.0-0.5 [facility] Comment on above: Performed By: #### L IVER, BMP, HSTROPN #### [facility] [address] [place] [address] Dr. Aissatou Vásquez LYMPH # 1.5 103/ul Normal 1.2-3.8 [facility] Comment on above: Performed By: #### L IVER, BMP, HSTROPN #### [facility] [address] [place] [address] Dr. Aissatou Vásquez Lymphocytes/100 WBC (Bld) 20.3 % Critically low 20.5-60.0 [facility] Comment on above: Performed By: #### L IVER, BMP, HSTROPN #### [facility] [address] [place] [address] Dr. Aissatou Vásquez MANUAL DIFF REQ NO Normal [facility] Comment on above: Performed By: #### L IVER, BMP, HSTROPN #### [facility] [address] [place] [address] Dr. Aissatou Vásquez MCH (RBC) [Entitic mass] 30.3 pg Normal 25.9-34.0 [facility] Comment on above: Performed By: #### L IVER, BMP, HSTROPN #### [facility] [address] [place] [address] Dr. Aissatou Vásquez MCHC (RBC) [Mass/Vol] 32.2 g/dL Normal 29.9-35.2 [facility] Comment on above: Performed By: #### L IVER, BMP, HSTROPN #### [facility] [address] [place] [address] Dr. Aissatou Vásquez MCV (RBC) [Entitic vol] 94.1 fL Critically high 80.0-94.0 [facility] Comment on above: Performed By: #### L IVER, BMP, HSTROPN #### [facility] [address] [place] [address] Dr. Aissatou Vásquez MONO # 0.7 103/ul Normal 0.3-0.8 [facility] Comment on above: Performed By: #### L IVER, BMP, HSTROPN #### [facility] [address] [place] [address] Dr. Aissatou Vásquez Monocytes/100 WBC (Bld) 9.9 % Normal 1.7-12.0 [facility] Comment on above: Performed By: #### L IVER, BMP, HSTROPN #### [facility] [address] [place] [address] Dr. Aissatou Vásquez NEUT # 4.9 103/ul Normal 1.4-6.5 [facility] Comment on above: Performed By: #### L IVER, BMP, HSTROPN #### [facility] [address] [place] [address] Dr. Aissatou Vásquez Neutrophils/100 WBC (Bld) 68.9 % Normal 43.0-75.0 [facility] Comment on above: Performed By: #### L IVER, BMP, HSTROPN #### [facility] [address] [place] [address] Dr. Aissatou Vásquez Platelet mean volume (Bld) [Entitic vol] 10.7 fL Normal 9.5-13.5 [facility] Comment on above: Performed By: #### L IVER, BMP, HSTROPN #### [facility] [address] [place] [address] Dr. Aissatou Vásquez PLT 141 103/ul Critically low 150-450 [facility] Comment on above: Performed By: #### L IVER, BMP, HSTROPN #### [facility] [address] [address] [address] Aissatou Vásquez RBC 3.37 106/ul Critically low 4.70-6.10 [facility] Comment on above: Performed By: #### L IVER BMP, HSTROPN #### [facility] [address] [address] [address] Aissatou Vásquez WBC 7.1 103/ul Normal 4.0-11.0 [facility] Comment on above: Performed By: #### L IVERDHARA, HSTROPN #### [facility] [address] [address] [address] Aissatou Vásquez CPKon 07-03-2022 CK [Catalytic activity/Vol] 331 U/L Critically high 39-308 [facility] Comment on above: Performed By: #### L DHARA WAITE, HSTROPN #### [facility] [address] [address] [address] Aissatou Vásquez CT ABD/PELVIS WO CONon [...] STEPHEN ROUSE Date: 2022-07-03 11:06 Normal [facility] CULTURE BLOODon 07-03-2022 Microscopic examination of blood, culture Culture Observations: NO GROWTH AT 5 DAYS. Normal [facility] Comment on above: Performed By: #### B LDCX2 ####[facility] [id number] [address]Dr. Aissatou Vásquez Microscopic examination of blood, culture Culture Observations: NO GROWTH AT 5 DAYS. Normal [facility] Comment on above: Performed By: #### Uri LDCX1 ####[facility] [id number] [address]Dr. Aissatou Vásquez MAGNESIUMon 07-03-2022 Magnesium [Mass/Vol] 1.8 mg/dL Normal 1.8-2.4 [facility] Comment on above: Performed By: #### DHARA KONG, HSTROPN #### [facility] [address] [address] [address] Aissatou Vásquez PHOSPHORUSon 07-03-2022 Phosphate [Mass/Vol] 4.0 mg/dL Normal 2.6-4.7 [facility] Comment on above: Performed By: #### DHARA KONG, HSTROPN #### [facility] [address] [address] [address] Aissatou Vásquez POINT OF CARE GLUCOSEon 06-06 Glucose [Mass/Vol] 77 mg/dL Normal 74-106 [facility] Comment on above: Performed By: #### C ADAM #### [facility] [address] [address] [address] Aissatou Vásquez PROF 14(COMP METB)on 022 Albumin [Mass/Vol] 2.6 g/dL Critically low 3.4-5.0 [facility] Comment on above: Performed By: #### L IVFRANTZ BMP, HSTROPN #### [facility] [address] [place] [address] Dr. Aissatou Vásquez Albumin/Globulin [Mass ratio] 0.9 {ratio} Normal [facility] Comment on above: Performed By: #### L IVER BMP, HSTROPN #### [facility] [address] [place] [address] Dr. Aissatou Vásquez ALP [Catalytic activity/Vol] 81 U/L Normal 46-116 [facility] Comment on above: Performed By: #### L IVFRANTZ BMP, HSTROPN #### [facility] [address] [place] [address] Dr. Aissatou Vásquez ALT [Catalytic activity/Vol] 46 U/L Normal 16-63 [facility] Comment on above: Performed By: #### L IVFRANTZ BMP, HSTROPN #### [facility] [address] [place] [address] Dr. Aissatou Vásquez Anion gap [Moles/Vol] 11.9 mmol/L Normal [facility] Comment on above: Performed By: #### L IVFRANTZ BMP, HSTROPN #### [facility] [address] [place] [address] Dr. Aissatou Vásquez AST [Catalytic activity/Vol] 45 U/L Critically high 15-37 [facility] Comment on above: Performed By: #### L IVER, BMP, HSTROPN #### [facility] [address] [place] [address] Dr. Aissatou Vásquez Bilirubin [Mass/Vol] 0.2 mg/dL Normal 0.2-1.0 [facility] Comment on above: Performed By: #### L IVER, BMP, HSTROPN #### [facility] [address] [place] [address] Dr. Aissatou Vásquez Calcium [Mass/Vol] 8.5 mg/dL Normal 8.5-10.1 [facility] Comment on above: Performed By: #### L IVER, BMP, HSTROPN #### [facility] [address] [address] [address] Aissatou Vásquez Chloride [Moles/Vol] 108 mmol/L Critically high 98-107 [facility] Comment on above: Performed By: #### L IVER, BMP, HSTROPN #### [facility] [address] [place] [address] Dr. Aissatou Vásquez CO2 [Moles/Vol] 25.9 mmol/L Normal 21.0-32.0 [facility] Comment on above: Performed By: #### L IVER, BMP, HSTROPN #### [facility] [address] [place] [address] Dr. Aissatou Vásquez Creatinine [Mass/Vol] 2.34 mg/dL Critically high 0.70-1.30 [facility] Comment on above: Performed By: #### L IVER, BMP, HSTROPN #### [facility] [address] [place] [address] Dr. Aissatou Vásquez EGFR-AF GUATEMALAN 32 mL/min/1.73m2 Critically low >=60 [facility] Comment on above: Performed By: #### L IVER, BMP, HSTROPN #### [facility] [address] [place] [address] Dr. Aissatou Vásquez EGFR-NON AF GUATEMALAN 27 mL/min/1.73m2 Critically low >=60 [facility] Comment on above: Performed By: #### L IVER, BMP, HSTROPN #### [facility] [address] [place] [address] Dr. Aissatou Vásquez Globulin (S) [Mass/Vol] 3.0 g/dL Normal [facility] Comment on above: Performed By: #### L IVER, BMP, HSTROPN #### [facility] [address] [place] [address] Dr. Aissatou Vásquez Glucose [Mass/Vol] 93 mg/dL Normal 74-106 [facility] Comment on above: Performed By: #### L IVER, BMP, HSTROPN #### [facility] [address] [address] [address] Aissatou Vásquez Potassium [Moles/Vol] 4.8 mmol/L Normal 3.5-5.1 [facility] Comment on above: Performed By: #### L IVER, BMP, HSTROPN #### [facility] [address] [place] [address] Dr. Aissatou Vásquez Protein [Mass/Vol] 5.6 g/dL Critically low 6.4-8.2 [facility] Comment on above: Performed By: #### L IVER, BMP, HSTROPN #### [facility] [address] [place] [address] Dr. Aissatou Vásquez Sodium [Moles/Vol] 141 mmol/L Normal 136-145 [facility] Comment on above: Performed By: #### L IVER, BMP, HSTROPN #### [facility] [address] [place] [address] Dr. Aissatou Vásquez Urea nitrogen [Mass/Vol] 61.0 mg/dL Critically high 7.0-18.0 [facility] Comment on above: Performed By: #### L IVER, BMP, HSTROPN #### [facility] [address] [place] [address] Dr. Aissatou Vásquez Urea nitrogen/Creatinine [Mass ratio] 26.1 mg/mg Normal [facility] Comment on above: Performed By: #### L IVER, BMP, HSTROPN #### [facility] [address] [place] [address] Dr. Aissatou Vásquez PROTIMEon 07-03-2022 INR Coag (PPP) [Relative time] 1.12 {INR} Normal [facility] Comment on above: Performed By: #### C ADAM #### [facility] [address] [place] [address] Dr. Aissatou Vásquez INR GUIDELINES SEE BELOW Normal [facility] Comment on above: Result Comment: ELISABETH RED INR: 2.0 - 3.0 CONDITIONS NOT LISTED BELOW 2.5 - 3.5 FOR PROSTHETIC HEART VALVE REPLACEMENT 2.5 - 3.5 RECURRENT THROMBOSIS Performed By: #### C ADAM #### [facility] [address] [place], [place] [address] Dr. Aissatou Vásquez PT Coag (PPP) [Time] 12.0 s Critically high 9.0-11.6 [facility] Comment on above: Performed By: #### C ADAM #### [facility] [address] [place], [place] [address] Dr. Aissatou Vásquez CBC AUTO DIFFon 07-02-2022 BASO # 0.0 103/ul Normal 0.0-0.1 [facility] Comment on above: Performed By: #### C BC ####[facility] [id number] [id number]. Aissatou Vásquez Basophils/100 WBC (Bld) 0.1 % Critically low 0.2-2.0 [facility] Comment on above: Performed By: #### C BC ####[facility] [id number] [address]Dr. Aissatou Vásquez EO # 0.0 103/ul Normal 0.0-0.7 [facility] Comment on above: Performed By: #### C BC ####[facility] [id number] [address]Dr. Aissatou Vásquez Eosinophils/100 WBC (Bld) 0.0 % Critically low 0.9-7.0 [facility] Comment on above: Performed By: #### C BC ####[facility] [id number] [address]Dr. Aissatou Vásquez Erythrocyte distribution width (RBC) [Ratio] 13.4 % Normal 11.0-15.0 [facility] Comment on above: Performed By: #### C BC ####[facility] [id number] [id number]. Aissatou Vásquez Hematocrit (Bld) [Volume fraction] 39.9 % Critically low 42.0-54.0 [facility] Comment on above: Performed By: #### C BC ####[facility] [id number] [address]Dr. Aissatou Vásquez Hemoglobin (Bld) [Mass/Vol] 12.8 g/dL Critically low 14.0-18.0 [facility] Comment on above: Performed By: #### C BC ####[facility] [id number] [address]DrBud Vásquez IG # 0.05 10e3/ul Critically high 0.00-0.03 [facility] Comment on above: Performed By: #### C BC ####[facility] [id number] [address]DrBud Vásquez IG % 0.4 % Normal 0.0-0.5 [facility] Comment on above: Performed By: #### C BC ####[facility] [facility] [id number] [place] [address]DrBud Vásquez LYMPH # 0.8 103/ul Critically low 1.2-3.8 [facility] Comment on above: Performed By: #### C BC ####[facility] [address] [place] [address]DrBud Vásquez Lymphocytes/100 WBC (Bld) 7.2 % Critically low 20.5-60.0 [facility] Comment on above: Performed By: #### C BC ####[facility] [address] [place] [address]DrBud Vásquez MANUAL DIFF REQ NO Normal [facility] Comment on above: Performed By: #### C BC ####[facility] [address]mm[address] [place] [address]DrBud Vásquez MCH (RBC) [Entitic mass] 30.0 pg Normal 25.9-34.0 [facility] Comment on above: Performed By: #### C BC ####[facility] [address] [place] [address]DrBud Vásquez MCHC (RBC) [Mass/Vol] 32.1 g/dL Normal 29.9-35.2 [facility] Comment on above: Performed By: #### C BC ####[facility] [address]th[address] [place] [address]DrBud Vásquez MCV (RBC) [Entitic vol] 93.7 fL Normal 80.0-94.0 [facility] Comment on above: Performed By: #### C BC ####[facility] [address]cwxaq[address] [place] [address]DrBud Aissatou Vásquez MONO # 0.8 103/ul Normal 0.3-0.8 [facility] Comment on above: Performed By: #### C BC ####[facility] Acttfaxblq[address] [place] [address]DrBud Sheysarah Vásquez Monocytes/100 WBC (Bld) 6.8 % Normal 1.7-12.0 [facility] Comment on above: Performed By: #### C BC ####[facility] [address] [place], [place] [address]Dr. Aissatou Vásquez NEUT # 9.8 103/ul Critically high 1.4-6.5 [facility] Comment on above: Performed By: #### C BC ####[facility] [address] [place], [place] [address]Dr. Sheysarah Vásquez Neutrophils/100 WBC (Bld) 85.5 % Critically high 43.0-75.0 [facility] Comment on above: Performed By: #### C BC ####[facility] [address] [place], [place] [address]DrBud Aissatou Fahad Platelet mean volume (Bld) [Entitic vol] 10.8 fL Normal 9.5-13.5 [facility] Comment on above: Performed By: #### C BC ####[facility] [address] [place] [address]Dr. Aissatou Fahad PLT 170 103/ul Normal 150-450 [facility] Comment on above: Performed By: #### C BC ####[facility] [address]xt[address] [place], [place] [address]DrBud Vásquez RBC 4.26 106/ul Critically low 4.70-6.10 [facility] Comment on above: Performed By: #### C BC ####[facility] [address] [place] [id number] Vásquez WBC 11.4 103/ul Critically high 4.0-11.0 [facility] Comment on above: Performed By: #### C BC ####[facility] [address] [place], [place] [address]DuDr. Aissatou Vásquez CKMBon 07-02-2022 CK.MB [Mass/Vol] 80.91 ng/mL Critically high <=3.60 [facility] Comment on above: Performed By: #### L DHARA WAITE, HSTROPN #### [facility] [address] [place], [place] [address] Dr. Aissatou Vásquez CPKon 07-02-2022 CK [Catalytic activity/Vol] 915 U/L Critically high 39-308 [facility] Comment on above: Performed By: #### L DHARA WAITE, HSTROPN #### [facility] [address] [place], [place] [address] Dr. Aissatou Vásquez ECHOCARDIO M/2D COMPLETEon 1 09-02-2021 ECHOCARDIO M/2D COMPLETE Patient: LEANNA NELSON Exam Date: 07/02/2022 : 1940 Gender:M Ordering : SHAIKH Delphine RODRIGUEZ . Admission #: [id number] Family : DR PIPE HOPKINS . Order #: [id number] CLICK HERE TO VIEW EXAM ECHOCARDIOGRAM REPORT [...] Cameron M.D. on 07/08/2022 at 09:55 Normal [facility] MAGNESIUMon 07-02-2022 Magnesium [Mass/Vol] 1.9 mg/dL Normal 1.8-2.4 [facility] Comment on above: Performed By: #### L IVERDHARA, HSTROPN #### [facility] [address] [place] [address] [address] Aissatou Vásquez MYOGLOBINon 07-02-2022 SARAH 1312 ng/mL Critically high 16-96 [facility] Comment on above: Performed By: #### L DHARA WAITE, HSTROPN #### [facility] [address] [place] [address] [address] Aissatou Vásquez PHOSPHORUSon 07-02-2022 Phosphate [Mass/Vol] 6.0 mg/dL Critically high 2.6-4.7 [facility] Comment on above: Performed By: #### L IVDHARA LANDRY, HSTROPN #### [facility] [address] [place] [address] [address] Aissatou Vásquez POINT OF CARE GLUCOSEon 06-06 Glucose [Mass/Vol] 78 mg/dL Normal 74-106 [facility] Comment on above: Performed By: #### C ADAM #### [facility] [address] [place] [address] [address] Aissatou Vásquez Glucose [Mass/Vol] 104 mg/dL Normal 74-106 [facility] Comment on above: Performed By: #### P OCGLUC ####[facility] [address] [place] [address]Dr. Aissatou Vásquez Glucose [Mass/Vol] 83 mg/dL Normal 74-106 [facility] Comment on above: Performed By: #### L IVER, BMP, HSTROPN #### [facility] [address] [place] [address] [address] Aissatou Vásquez Glucose [Mass/Vol] 100 mg/dL Normal 74-106 [facility] Comment on above: Performed By: #### C ADAM #### [facility] [address] [place] [address] [address] Aissatou Vásquez Glucose [Mass/Vol] 73 mg/dL Critically low 74-106 [facility] Comment on above: Performed By: #### P OCGLUC ####[facility] [address] [place] [address]Dr. Aissatou Vásquez PROF 14(COMP METB)on 07-02- 022 Albumin [Mass/Vol] 3.3 g/dL Critically low 3.4-5.0 [facility] Comment on above: Performed By: #### L IVER, BMP, HSTROPN #### [facility] [address] [place] [address] [address] Aissatou Vásquez Albumin/Globulin [Mass ratio] 1.0 {ratio} Normal [facility] Comment on above: Performed By: #### L IVER, BMP, HSTROPN #### [facility] [address] [place] [address] [address] Aissatou Vásquez ALP [Catalytic activity/Vol] 114 U/L Normal 46-116 [facility] Comment on above: Performed By: #### L IVER, BMP, HSTROPN #### [facility] [address] [place] [address] [address] Aissatou Vásquez ALT [Catalytic activity/Vol] 48 U/L Normal 16-63 [facility] Comment on above: Performed By: #### L IVER, BMP, HSTROPN #### [facility] [address] [place] [address] [address] Aissatou Vásquez Anion gap [Moles/Vol] 17.3 mmol/L Normal [facility] Comment on above: Performed By: #### L IVER, BMP, HSTROPN #### [facility] [address] [place] [address] Dr. Aissatou Vásquez AST [Catalytic activity/Vol] 68 U/L Critically high 15-37 [facility] Comment on above: Performed By: #### L IVER, BMP, HSTROPN #### [facility] [address] [place] [address] Dr. Aissatou Vásquez Bilirubin [Mass/Vol] 0.5 mg/dL Normal 0.2-1.0 [facility] Comment on above: Performed By: #### L IVER, BMP, HSTROPN #### [facility] [address] [place] [address] Dr. Aissatou Vásquez Calcium [Mass/Vol] 8.9 mg/dL Normal 8.5-10.1 [facility] Comment on above: Performed By: #### L IVER, BMP, HSTROPN #### [facility] [address] [place] [address] Dr. Aissatou Vásquez Chloride [Moles/Vol] 109 mmol/L Critically high 98-107 [facility] Comment on above: Performed By: #### L IVER, BMP, HSTROPN #### [facility] [address] [place] [address] Dr. Aissatou Vásquez CO2 [Moles/Vol] 22.8 mmol/L Normal 21.0-32.0 [facility] Comment on above: Performed By: #### L IVER, BMP, HSTROPN #### [facility] [address] [place] [address] Dr. Aissatou Vásquez Creatinine [Mass/Vol] 1.89 mg/dL Critically high 0.70-1.30 [facility] Comment on above: Performed By: #### L IVER, BMP, HSTROPN #### [facility] [address] [place] [address] Dr. Aissatou Vásquez EGFR-AF GUATEMALAN 41 mL/min/1.73m2 Critically low >=60 [facility] Comment on above: Result Comment: Prev iously reported as: (blank) On 07/02/2022 05:50 By KD3 Performed By: #### L IVER, BMP, HSTROPN #### [facility] [address] [place] [address] Dr. Aissatou Vásquez EGFR-NON AF GUATEMALAN 34 mL/min/1.73m2 Critically low >=60 [facility] Comment on above: Result Comment: Prev iously reported as: (blank) On 07/02/2022 05:50 By KD3 Performed By: #### L IVER, BMP, HSTROPN #### [facility] [address] [place] [address] [address] Aissatou Vásquez Globulin (S) [Mass/Vol] 3.4 g/dL Normal [facility] Comment on above: Performed By: #### L IVER, BMP, HSTROPN #### [facility] [address] [place] [address] Dr. Aissatou Vásquez Glucose [Mass/Vol] 86 mg/dL Normal 74-106 [facility] Comment on above: Performed By: #### L IVER, BMP, HSTROPN #### [facility] [address] [place] [address] Dr. Aissatou Vásquez Potassium [Moles/Vol] 5.1 mmol/L Normal 3.5-5.1 [facility] Comment on above: Performed By: #### L IVER, BMP, HSTROPN #### [facility] [address] [place] [address] Dr. Aissatou Vásquez Protein [Mass/Vol] 6.7 g/dL Normal 6.4-8.2 [facility] Comment on above: Performed By: #### L IVER, BMP, HSTROPN #### [facility] [address] [place] [address] Dr. Aissatou Vásquez Sodium [Moles/Vol] 144 mmol/L Normal 136-145 [facility] Comment on above: Performed By: #### L IVER, BMP, HSTROPN #### [facility] [address] [place] [address] [address] Aissatou Vásquez Urea nitrogen [Mass/Vol] 55.0 mg/dL Critically high 7.0-18.0 [facility] Comment on above: Performed By: #### L DHARA WAITE, HSTROPN #### [facility] [address] [place] [address] Dr. Aissatou Vásquez Urea nitrogen/Creatinine [Mass ratio] 29.1 mg/mg Normal [facility] Comment on above: Performed By: #### L DHARA WAITE, HSTROPN #### [facility] [address] [place] [address] Dr. Aissatou Vásquez PROTIMEon 07-02-2022 INR Coag (PPP) [Relative time] 1.13 {INR} Normal [facility] Comment on above: Performed By: #### L DHARA WAITE, HSTROPN #### [facility] [address] [place] [address] Dr. Aissatou Vásquez INR GUIDELINES SEE BELOW Normal [facility] Comment on above: Result Comment: ELISABETH RED INR: 2.0 - 3.0 CONDITIONS NOT LISTED BELOW 2.5 - 3.5 FOR PROSTHETIC HEART VALVE REPLACEMENT 2.5 - 3.5 RECURRENT THROMBOSIS Performed By: #### L DHARA WAITE, HSTROPN #### [facility] [address] [place] [address] Dr. Aissatou Vásquez PT Coag (PPP) [Time] 12.1 s Critically high 9.0-11.6 [facility] Comment on above: Performed By: #### L DHARA WAITE, HSTROPN #### [facility] [address] [place] [address] Dr. Aissatou Vásquez BLOOD CULTURE ID PANELon A. baumannii Not detected Normal NOT DETECTED [facility] Comment on above: Performed By: #### C ADAM #### [facility] [address] [place] [address] Dr. Aissatou Vásquez Bacteriodes fragilis Not detected Normal NOT DETECTED [facility] Comment on above: Performed By: #### C ADAM #### [facility] [address] [place] [address] Dr. Aissatou Vásquez BCID CONTROLS PASSED Normal [facility] Comment on above: Performed By: #### C ADAM #### [facility] [address] [place] [address] [address] Aissatou PEREZDBTHD BLOOD CULTURE BOTTLE INFORMATION Normal [facility] Comment on above: Performed By: #### C ADAM #### [facility] [address] [place] [address] Dr. Aissatou Vásquez BCIDHD1 ANTIMICROBIAL RESISTANCE GENES [facility] Comment on above: Performed By: #### C ADAM #### [facility] [address] [place] [address] [address] Aissatou Vásquez BCIDHD2 SEE BELOW [facility] Comment on above: Result Comment: Note : Antimicrobial resitance can occur via multiple mechanisms. A Not Detected result for the [employer] antomicrobial resistance gene assays does not indicate antimicrobial susceptibility. Subculturing is required for species identification and susceptibility testing of isolates. Performed By: #### C ADAM #### [facility] [address] [place] [address] Dr. Aissatou Vásquez BCIDHD3 Positive [facility] Comment on above: Performed By: #### C ADAM #### [facility] [address] [place] [address] Dr. Aissatou Vásquez BCIDHD4 Negative [facility] Comment on above: Performed By: #### C ADAM #### [facility] [address] [place] [address] Dr. Aissatou Vásquez BCIDHD5 YEAST Normal [facility] Comment on above: Performed By: #### C ADAM #### [facility] [address] [place] [address] Dr. Aissatou Vásquez Bottle Set: Set [address] [facility] Comment on above: Performed By: #### C ADAM #### [facility] [address] [place] [address] Dr. Aissatou Vásquez Bottle: Pediatric Normal [facility] Comment on above: Performed By: #### C ADAM #### [facility] [address] [place] [address] Dr. Aissatou Vásquez C. neoformans/gattii Not detected Normal NOT DETECTED [facility] Comment on above: Performed By: #### C ADAM #### [facility] [address] [place] [address] Dr. Aissatou Vásquez Soraya albicans Not detected Normal NOT DETECTED [facility] Comment on above: Performed By: #### C ADAM #### [facility] [address] [place] [address] Dr. Aissatou Vásquez Soraya auris Not detected Normal NOT DETECTED [facility] Comment on above: Performed By: #### C ADAM #### [facility] [address] [place] [address] Dr. Aissatou Vásquez Soraya glabrata Not detected Normal NOT DETECTED [facility] Comment on above: Performed By: #### C ADAM #### [facility] [address] [place] [address] Dr. Aissatou Vásquez Soraya Krusei Not detected Normal NOT DETECTED [facility] Comment on above: Performed By: #### C ADAM #### [facility] [address] [place] [address] Dr. Aissatou Vásquez Soraya Parapsilosis Not detected Normal NOT DETECTED [facility] Comment on above: Performed By: #### C ADAM #### [facility] [address] [place] [address] Dr. Aissatou Vásquez Soraya Tropicalis Not detected Normal NOT DETECTED [facility] Comment on above: Performed By: #### C ADAM #### [facility] [address] [place] [address] Dr. Aissatou Vásquez CTX-M Resistant Gene Not detected Normal NOT DETECTED [facility] Comment on above: Performed By: #### C ADAM #### [facility] [address] [place] [address] Dr. Aissatou Vásquez E. Cloacae complex Not detected Normal NOT DETECTED [facility] Comment on above: Performed By: #### C ADAM #### [facility] [address] [place] [address] Dr. Aissatou Vásquez E. faecalis Not detected Normal NOT DETECTED [facility] Comment on above: Performed By: #### C ADAM #### [facility] [address] [place] [address] Dr. Aissatou Vásquez E. faecium Not detected Normal NOT DETECTED [facility] Comment on above: Performed By: #### C ADAM #### [facility] [address] [place] [address] Dr. Aissatou Vásquez Enterobacteriaceae Detected Critically abnormal NOT DETECTED [facility] Comment on above: Performed By: #### C ADAM #### [facility] [address] [place] [address] Dr. Aissatou Vásquez Escherichia coli Not detected Normal NOT DETECTED [facility] Comment on above: Performed By: #### C ADAM #### [facility] [address] [place] [address] Dr. Aissatou Vásquez H. influenzae Not detected Normal NOT DETECTED [facility] Comment on above: Performed By: #### C ADAM #### [facility] [address] [place] [address] Dr. Aissatou Vásquez IMP Resistant Gene Not detected Normal NOT DETECTED [facility] Comment on above: Performed By: #### C ADAM #### [facility] [address] [place] [address] Dr. Aissatou Vásquez K. oxytoca Not detected Normal NOT DETECTED [facility] Comment on above: Performed By: #### C ADAM #### [facility] [address] [place] [address] Dr. Aissatou Vásquez K. pneumoniae Not detected Normal NOT DETECTED [facility] Comment on above: Performed By: #### C ADAM #### [facility] [address] [place] [address] Dr. Aissatou Vásquez Klebsiella aerogenes Not detected Normal NOT DETECTED [facility] Comment on above: Performed By: #### C ADAM #### [facility] [address] [place] [address] Dr. Aissatou Vásquez KPC Resistant Gene Not detected Normal NOT DETECTED [facility] Comment on above: Performed By: #### C ADAM #### [facility] [address] [place] [address] Dr. Aissatou Vásquez List. monocytogenes Not detected Normal NOT DETECTED [facility] Comment on above: Performed By: #### C ADAM #### [facility] [address] [place] [address] Dr. Aissatou Vásquez Mcr-1 Resistant Gene Not Applicable Normal NOT DETECTE D [facility] Comment on above: Performed By: #### C ADAM #### [facility] [address] [place] [address] Dr. Aissatou Vásquez mecA/C Not Applicable Normal NOT DETECTED [facility] Comment on above: Performed By: #### C ADAM #### [facility] [address] [place] [address] Dr. Aissatou Vásquez mecA/C MREJ Not Applicable Normal NOT DETECTED [facility] Comment on above: Performed By: #### C ADAM #### [facility] [address] [place] [address] Dr. Aissatou Vásquez N. meningitidis Not detected Normal NOT DETECTED [facility] Comment on above: Performed By: #### C ADAM #### [facility] [address] [place] [address] Dr. Aissatou Vásquez NDM Resistant Gene Not detected Normal NOT DETECTED [facility] Comment on above: Performed By: #### C ADAM #### [facility] [address] [place] [address] Dr. Aissatou Vásquez Oxa-48-like Not detected Normal NOT DETECTED [facility] Comment on above: Performed By: #### C ADAM #### [facility] [address] [place] [address] Dr. Aissatou Vásquez Proteus Not detected Normal NOT DETECTED [facility] Comment on above: Performed By: #### C ADAM #### [facility] [address] [place] [address] Dr. Aissatou Vásquez Pseud. aeruginosa Not detected Normal NOT DETECTED [facility] Comment on above: Performed By: #### C ADAM #### [facility] [address] [place] [address] Dr. Aissatou Vásquez S. maltophilia Not detected Normal NOT DETECTED [facility] Comment on above: Performed By: #### C ADAM #### [facility] [address] [place] [address] [address] Aissatou Vásquez Salmonella Not detected Normal NOT DETECTED [facility] Comment on above: Performed By: #### C ADAM #### [facility] [address] [place] [address] Dr. Aissatou Vásquez Seratia marcescens Not detected Normal NOT DETECTED [facility] Comment on above: Performed By: #### C ADAM #### [facility] [address] [place] [address] Dr. Aissatou Vásquez Site: IV Normal [facility] Comment on above: Performed By: #### C ADAM #### [facility] [address] [place] [address] Dr. Aissatou Vásquez Stapace. aureus Not detected Normal NOT DETECTED [facility] Comment on above: Performed By: #### C ADAM #### [facility] [address] [place] [address] Dr. Aissatou Vásquez Staph. epidermidis Not detected Normal NOT DETECTED [facility] Comment on above: Performed By: #### C ADAM #### [facility] [address] [place] [address] Dr. Aissatou Vásquez Staph. lugdunensis Not detected Normal NOT DETECTED [facility] Comment on above: Performed By: #### C ADAM #### [facility] [address] [place] [address] Dr. Aissatou Vásquez Staphylococcus Not detected Normal NOT DETECTED [facility] Comment on above: Performed By: #### C ADAM #### [facility] [address] [place] [address] Dr. Aissatou Vásquez Strep. agalactiae Not detected Normal NOT DETECTED [facility] Comment on above: Performed By: #### C ADAM #### [facility] [address] [place] [address] Dr. Aissatou Vásquez Strep. pneumoniae Not detected Normal NOT DETECTED [facility] Comment on above: Performed By: #### C ADAM #### [facility] [address] [place] [address] [address] Aissatou Vásquez Strep. pyogenes Not detected Normal NOT DETECTED [facility] Comment on above: Performed By: #### C ADAM #### [facility] [address] [address] [address] Aissatou Vásquez Streptococcus Not detected Normal NOT DETECTED [facility] Comment on above: Performed By: #### C ADAM #### [facility] [address] [place] [address] Dr. Aissatou Vásquez Akila/B Resist. Gene Not Applicable Normal NOT DETECTED [facility] Comment on above: Performed By: #### C ADAM #### [facility] [address] [place] [address] Dr. Aissatou Vásquez VIM Resistant Gene Not detected Normal NOT DETECTED [facility] Comment on above: Performed By: #### C ADAM #### [facility] [address] [place] [address] Dr. Aissatou Vásquez CBC W MANUAL DIFFon 07-01-20 22 ATYPICAL LYMPH # Normal [facility] Comment on above: Performed By: #### C BCMAN ####[facility] [address] [place], [place] [address]Dr. Aissatou Vásquez ATYPICAL LYMPH % Normal [facility] Comment on above: Performed By: #### C BCMAN ####[facility] [address] [place] [address]Dr. Aissatou Vásquez BAND # 0.4 103/ul Critically high 0.0-0.3 [facility] Comment on above: Performed By: #### C BCMAN ####[facility] [address] [place] [address]Dr. Aissatou Vásquez BAND % 3 % Normal 0-5 [facility] Comment on above: Performed By: #### C BCMAN ####[facility] [address] [place] [address]Dr. Aissatou Vásquez BASOM # 0.00 103/ul Normal 0.00-0.10 [facility] Comment on above: Performed By: #### C BCMAN ####[facility] [address] [place] [id number]. Aissatou Vásquez BASOM % 0.0 % Critically low 0.2-2.0 [facility] Comment on above: Performed By: #### C BCMAN ####[facility] Drszdqzpzm[address] [place] [id number]. Aissatou Vásquez BLAST # Normal [facility] Comment on above: Performed By: #### C BCRITCHIE ####[facility] Fbzydmtmrb[address] [place] [id number]. Aissatou Vásquez BLAST % Normal [facility] Comment on above: Performed By: #### C BCRITCHIE ####[facility] Eyhmmuhmfk[address] [place] [id number]. Aissatou Vásquez CORRECTED WBC Normal 4.0-11.0 [facility] Comment on above: Performed By: #### C ABUNDIO ####[facility] [address]wtjosq[address] [place], [place] [address]Dr. Aissatou Vásquez EOS # 0.12 103/ul Normal 0.00-0.70 [facility] Comment on above: Performed By: #### C BCRITCHIE ####[facility] Etdfetdfct[address] [place] [phone]. Aissatou Vásquez EOS% 1.0 % Normal 0.9-7.0 [facility] Comment on above: Performed By: #### C ABUNDIO ####[facility] Tanrnyidtp[address] [place] [phone]. Aissatou Vásquez HCT 46.0 % Normal 42.0-54.0 [facility] Comment on above: Performed By: #### C BCRITCHIE ####[facility] Wsvstobrig[address] [place] [phone]. Aissatou Vásquez HGB 14.6 g/dl Normal 14.0-18.0 [facility] Comment on above: Performed By: #### C BCMAN ####[facility] Mdndgvltme8508 [place] [phone]. Aissatou Vásquez LYMPHM # 0.62 103/ul Critically low 1.20-3.80 [facility] Comment on above: Performed By: #### C ABUNDIO ####[facility] Zpubhcjjvx8347 [place] [phone]. Aissatou Vásquez LYMPHM% 5.0 % Critically low 20.5-60.0 [facility] Comment on above: Performed By: #### C ABUNDIO ####[facility] Bwzaowkkab[address] [place] [phone]. Aissatou Vásquez MCH 29.9 pg Normal 25.9-34.0 [facility] Comment on above: Performed By: #### C ABUNDIO ####[facility] Ovwtqkfdiq[address] [place] [phone]. Aissatou Vásquez MCHC 31.7 g/dl Normal 29.9-35.2 [facility] Comment on above: Performed By: #### C ABUNDIO ####[facility] Aboogheapr[address] [place] [phone]. Aissatou Vásquez MCV 94.1 fL Critically high 80.0-94.0 [facility] Comment on above: Performed By: #### C ABUNDIO ####[facility] Absosicger[address] [place], [place] [address]Dr. Aissatou Vásquez METAMYELOCYTE # Normal [facility] Comment on above: Performed By: #### C ABUNDIO ####[facility] Uruoykyiec[address] [place] [phone]. Aissatou Vásquez METAMYELOCYTE % Normal [facility] Comment on above: Performed By: #### C ABUNDIO ####[facility] Xiphfwwags[address] [place] [phone]. Aissatou Vásquez MONOM# 0.62 103/ul Normal 0.30-0.80 [facility] Comment on above: Performed By: #### C ABUNDIO ####[facility] Bgpmfiixbv4353 [place] [phone]. Aissatou Vásquez MONOM% 5.0 % Normal 1.7-12.0 [facility] Comment on above: Performed By: #### C ABUNDIO ####[facility] [address]hfvnqzfxv[address] [place], [place] [address]Dr. Aissatou Vásquez MPV 10.4 fL Normal 9.5-13.5 [facility] Comment on above: Performed By: #### C ABUNDIO ####[facility] Ewjyisgcvr[address] [place] [phone]. Aissatou Vásquez MYELOCYTE # Normal [facility] Comment on above: Performed By: #### C ABUNDIO ####[facility] Visjhxyrcg[address] [place] [phone]. Aissatou Vásquez MYELOCYTE % Normal [facility] Comment on above: Performed By: #### C BCRITCHIE ####[facility] Lttjqkqinl73[address] [place] [phone]. Aissatou Vásquez NRBC Normal [facility] Comment on above: Performed By: #### C ABUNDIO ####[facility] Ubeyipnxxs[address] [place] [phone]. Aissatou Vásquez PLT 171 103/ul Normal 150-450 [facility] Comment on above: Performed By: #### C ABUNDIO ####[facility] Mgpebugpqh2025 [place] [phone]. Aissatou Vásquez RBC 4.89 106/ul Normal 4.70-6.10 [facility] Comment on above: Performed By: #### C ABUNDIO ####[facility] Rqppyxgcam39[address] [place] [phone]. Aissatou Vásquez RDW 13.4 % Normal 11.0-15.0 [facility] Comment on above: Performed By: #### C ABUNDIO ####[facility] Isizvilbeg44[address] [place] [phone]. Aissatou Vásquez SEG # 10.66 103/ul Critically high 1.40-6.50 [facility] Comment on above: Performed By: #### C ABUNDIO ####[facility] Webgzbqpir9253 [place] [phone]. Aissatou Vásquez SEG % 86.0 % Critically high 43.0-75.0 [facility] Comment on above: Performed By: #### C ABUNDIO ####[facility] Espnpjrbib46[address] [place] [phone]. Aissatou Vásquez WBC 12.4 103/ul Critically high 4.0-11.0 [facility] Comment on above: Performed By: #### C LISAMAN ####[facility] Kfjmwwhytt50[address] [place], [place] [address]kDr. Aissatou Vásquez CPKon 07-01-2022 CK [Catalytic activity/Vol] 1646 U/L Critically high 39-308 [facility] Comment on above: Performed By: #### L IVER, BMP, HSTROPN #### [facility] [address] [place], [place] [address] [address] Vás[address] CSPINE WO CONon [...] KOKO ROMANO Date: 2022-07-01 19:22 Normal [facility] CT STROKE HEAD WOon 07-01-[address] [...] BERNADETTE BEDOLLA Date: 2022-07-01 17:37 Normal [facility] CULTURE BLOODon 07-01-2022 Microscopic examination of blood, culture Culture Observations: NO GROWTH AT 5 DAYS. Normal [facility] Comment on above: Performed By: #### B [facility] ####[facility] [address]lcyckwny[address] [place], [place] [address]Dh. Aissatou Vásquez Covid-19 PCR (CVDTB)on 06-06 SARS-CoV-2 (COVID-19) RNA HALLE+probe Ql (Unsp spec) Not detected Normal NOT DETECTED [facility] Comment on above: Result Comment: When diagnostic [...] for this test is supported by the [employer] of Health and Human Service's declaration that [...] By: #### L IVER, BMP, HSTROPN #### [facility] [address] [place] [address] Dr. Aissatou Vásquez DRUG SCREEN RAPID (URINE)on 07-01-2022 AMP Negative Normal NEGATIVE [facility] Comment on above: Performed By: #### C ADAM #### [facility] [address] [place] [address] Dr. Aissatou Vásquez BAR Negative Normal NEGATIVE [facility] Comment on above: Performed By: #### C ADAM #### [facility] [address] [place] [address] Dr. Aissatou Vásquez BUP Negative Normal NEGATIVE [facility] Comment on above: Performed By: #### C ADAM #### [facility] [address] [place] [address] Dr. Aissatou Vásquez BZO Negative Normal NEGATIVE [facility] Comment on above: Performed By: #### C ADAM #### [facility] [address] [place] [address] Dr. Aissatou Vásquez MARYJANE Negative Normal NEGATIVE [facility] Comment on above: Performed By: #### C ADAM #### [facility] [address] [place] [address] Dr. Aissatou Vásquez CUT-OFFS SEE BELOW Normal [facility] Comment on above: Result Comment: AMP (Amphetamine): 500ng/mL, BAR (Barbituates): 200 ng/mL, BZO (Benzodiazepines): 150 ng/mL, BUP (Buprenorphine): 10 ng/mL, MARYJANE (Cocaine): 150 ng/mL, mAMP (Methamphetamine): 500 ng/mL, MTD (Methadone): 200 ng/mL, OPI (Opiates): 100 ng/mL, OXY (Oxycodone): 100 ng/mL, PCP (Phencyclidine): 25 ng/mL, PPX (Propoxyphene): 300 ng/mL, THC (Cannabinoids): 50 ng/mL, TCA (Trycyclic Antidepressants): 300 ng/mL Performed By: #### C ADAM #### [facility] [address] [place] [address] Dr. Aissatou Vásquez DRUG CUT HEADER DRUG CLASS TEST SYSTEM CUT-OFF CONCENTRATIONS ARE FOLLOWS: Normal [facility] Comment on above: Performed By: #### C ADAM #### [facility] [address] [place] [address] Dr. Aissatou Vásquez mAMP Negative Normal NEGATIVE [facility] Comment on above: Performed By: #### C ADAM #### [facility] [address] [place] [address] Dr. Aissatou Vásquez MTD Negative Normal NEGATIVE [facility] Comment on above: Performed By: #### C ADAM #### [facility] [address] [place] [address] Dr. Aissatou Vásquez OPI Negative Normal NEGATIVE [facility] Comment on above: Performed By: #### C ADAM #### [facility] [address] [place] [address] Dr. Aissatou Vásquez OXY Negative Normal NEGATIVE [facility] Comment on above: Performed By: #### C ADAM #### [facility] [address] [place] [address] Dr. Aissatou Vásquez PCP Negative Normal NEGATIVE [facility] Comment on above: Performed By: #### C ADAM #### [facility] [address] [place] [address] Dr. Aissatou Vásquez PPX Negative Normal NEGATIVE [facility] Comment on above: Performed By: #### C ADAM #### [facility] [address] [place] [address] Dr. Aissatou Vásquez TCA Negative Normal NEGATIVE [facility] Comment on above: Performed By: #### C ADAM #### [facility] [address] [place] [address] Dr. Aissatou Vásquez THC Negative Normal NEGATIVE [facility] Comment on above: Performed By: #### C ADAM #### [facility] [address] [place] [address] Dr. Aissatou Vásquez ER URINE PROFILEon 2 Bilirubin Ql (U) Negative Normal NEGATIVE [facility] Comment on above: Performed By: #### C ADAM #### [facility] [address] [place] [address] Dr. Aissatou Vásquez Clarity (U) CLEAR Normal CLEAR [facility] Comment on above: Performed By: #### C ADAM #### [facility] [address] [place] [address] Dr. Aissatou Vásquez Color (U) YELLOW Normal YELLOW [facility] Comment on above: Performed By: #### C ADAM #### [facility] [address] [place] [address] Dr. Aissatou BECKWITH A micrscopic examination will be performed if indicated. Normal [facility] Comment on above: Performed By: #### C ADAM #### [facility] [address] [place] [address] Dr. Aissatou Vásquez Glucose Ql (U) Negative Normal NEGATIVE [facility] Comment on above: Performed By: #### C ADAM #### [facility] [address] [place] [address] Dr. Aissatou Vásquez Hemoglobin Ql (U) MODERATE Abnormal NEGATIVE [facility] Comment on above: Performed By: #### C ADAM #### [facility] [address] [place] [address] Dr. Aissatou Vásquez Ketones Ql (U) 15 mg/dl Abnormal NEGATIVE [facility] Comment on above: Performed By: #### C ADAM #### [facility] [address] [place] [address] Dr. Aissatou Vásquez LEUKOCYTES Negative Normal NEGATIVE [facility] Comment on above: Performed By: #### C ADAM #### [facility] [address] [place] [address] Dr. Aissatou Vásquez Nitrite Ql (U) Negative Normal NEGATIVE [facility] Comment on above: Performed By: #### C ADAM #### [facility] [address] [place] [address] Dr. Aissatou Vásquez pH (U) 5.0 [pH] Normal 5-9 [facility] Comment on above: Performed By: #### C ADAM #### [facility] [address] [place] [address] Dr. Aissatou Vásquez SPEC GRAVITY 1.025 Normal 1.005-<=1.025 [facility] Comment on above: Performed By: #### C ADAM #### [facility] [address] [place] [address] Dr. Aissatou Vásquez UA PROTEIN TRACE Normal NEGATIVE/ TRACE [facility] Comment on above: Performed By: #### C ADAM #### [facility] [address] [place] [address] Dr. Aissatou Vásquez UR MICRO IND INDICATED Normal [facility] Comment on above: Performed By: #### C ADAM #### [facility] [address] [place] [address] Dr. Aissatou Vásquez Urobilinogen Qn (U) 0.2 {Ilene'U}/dL Normal 0.2 - 1. 0 [facility] Comment on above: Performed By: #### C ADAM #### [facility] [address] [place] [address] Dr. Aissatou Vásquez LIVER PROFILEon 07-01-2022 Albumin [Mass/Vol] 3.7 g/dL Normal 3.4-5.0 [facility] Comment on above: Performed By: #### L IVER, BMP, HSTROPN #### [facility] [address] [place] [address] Dr. Aissatou Vásquez Albumin/Globulin [Mass ratio] 0.9 {ratio} Normal [facility] Comment on above: Performed By: #### L IVER, BMP, HSTROPN #### [facility] [address] [place] [address] Dr. Aissatou Vásquez ALP [Catalytic activity/Vol] 143 U/L Critically high 46-116 [facility] Comment on above: Performed By: #### L IVER, BMP, HSTROPN #### [facility] [address] [place] [address] Dr. Aissatou Vásquez ALT [Catalytic activity/Vol] 56 U/L Normal 16-63 [facility] Comment on above: Performed By: #### L IVER, BMP, HSTROPN #### [facility] [address] [place] [address] [address] Aissatou Vásquez AST [Catalytic activity/Vol] 87 U/L Critically high 15-37 [facility] Comment on above: Performed By: #### L IVER, BMP, HSTROPN #### [facility] [address] [place] [address] [address] Aissatou Vásquez BILI, CONJUGATED 0.2 mg/dL Normal 0.0-0.2 [facility] Comment on above: Performed By: #### L IVER, BMP, HSTROPN #### [facility] [address] [place] [address] Dr. Aissatou Vásquez Bilirubin [Mass/Vol] 0.6 mg/dL Normal 0.2-1.0 [facility] Comment on above: Performed By: #### L IVER, BMP, HSTROPN #### [facility] [address] [place] [address] Dr. Aissatou Vásquez Globulin (S) [Mass/Vol] 3.9 g/dL Normal [facility] Comment on above: Performed By: #### L IVER, BMP, HSTROPN #### [facility] [address] [place] [address] Dr. Aissatou Vásquez Protein [Mass/Vol] 7.6 g/dL Normal 6.4-8.2 [facility] Comment on above: Performed By: #### L IVER, BMP, HSTROPN #### [facility] [address] [place] [address] Dr. Aissatou Vásquez MYOGLOBINon 07-01-2022 SARAH 2042 ng/mL Critically high 16-96 [facility] Comment on above: Performed By: #### L IVER, BMP, HSTROPN #### [facility] [address] [place] [address] Dr. Aissatou Vásquez PROF CHEM 8 (BAS METB)on Anion gap [Moles/Vol] 18.5 mmol/L Normal Th [facility] Comment on above: Performed By: #### L IVER, BMP, HSTROPN #### [facility] [address] [place] [address] [address] Aissatou Vásquez Calcium [Mass/Vol] 9.8 mg/dL Normal 8.5-10.1 [facility] Comment on above: Performed By: #### L IVER, BMP, HSTROPN #### [facility] [address] [address] [address] Aissatou Vásquez Chloride [Moles/Vol] 104 mmol/L Normal 98-107 [facility] Comment on above: Performed By: #### L IVER, BMP, HSTROPN #### [facility] [address] [place] [address] Dr. Aissatou Vásquez CO2 [Moles/Vol] 24.3 mmol/L Normal 21.0-32.0 [facility] Comment on above: Performed By: #### L IVER, BMP, HSTROPN #### [facility] [address] [address] [address] Aissatou Vásquez Creatinine [Mass/Vol] 1.74 mg/dL Critically high 0.70-1.30 [facility] Comment on above: Performed By: #### L IVER, BMP, HSTROPN #### [facility] [address] [place] [address] Dr. Aissatou Vásquez EGFR-AF GUATEMALAN 46 mL/min/1.73m2 Critically low >=60 [facility] Comment on above: Performed By: #### L IVER, BMP, HSTROPN #### [facility] [address] [place] [address] Dr. Aissatou Vásquez EGFR-NON AF GUATEMALAN 38 mL/min/1.73m2 Critically low >=60 [facility] Comment on above: Performed By: #### L IVER, BMP, HSTROPN #### [facility] [address] [address] [address] Aissatou Vásquez Glucose [Mass/Vol] 115 mg/dL Critically high 74-106 [facility] Comment on above: Performed By: #### L IVER, BMP, HSTROPN #### [facility] [address] [address] [address] Aissatou Vásquez Potassium [Moles/Vol] 4.8 mmol/L Normal 3.5-5.1 [facility] Comment on above: Performed By: #### L IVER, BMP, HSTROPN #### [facility] [address] [place] [address] [address] Aissatou Vásquez Sodium [Moles/Vol] 142 mmol/L Normal 136-145 [facility] Comment on above: Performed By: #### L IVER, BMP, HSTROPN #### [facility] [address] [place] [address] [address] Aissatou Vásquez Urea nitrogen [Mass/Vol] 54.0 mg/dL Critically high 7.0-18.0 [facility] Comment on above: Performed By: #### L IVER, BMP, HSTROPN #### [facility] [address] [place] [address] [address] Aissatou Vásquez Urea nitrogen/Creatinine [Mass ratio] 31.0 mg/mg Normal [facility] Comment on above: Performed By: #### L IVER, BMP, HSTROPN #### [facility] [address] [place] [address] [address] Aissatou Vásquez TROPONIN, HIGH SENSITIVITYon 07-01-2022 HSTROP 102.3 pg/mL Critically high 4.0-76.1 [facility] Comment on above: Result Comment: CUT- OFF POINTS HAVE BEEN ESTABLISHED BASED ON THE FOURTH UNIVERSAL DEFINITIONS OF MYOCARDIAL INFARCTION. THE UPPER REFERENCE LIMIT (URL) OF TROPONIN, DEFINED THE 99TH PERCENTILE OF cTnI DISTRIBUTION IN A REFERENCE POPULATION, HAS BEEN CONFIRMED THE DECISION THRESHOLD FOR AL DIAGNOSIS. Performed By: #### H STROPN ####[facility] [address] [place] [address]Dr. Aissatou Vásquez HSTROP 132.4 pg/mL Critically high 4.0-76.1 [facility] Comment on above: Result Comment: CUT- OFF POINTS HAVE BEEN ESTABLISHED BASED ON THE FOURTH UNIVERSAL DEFINITIONS OF MYOCARDIAL INFARCTION. THE UPPER REFERENCE LIMIT (URL) OF TROPONIN, DEFINED THE 99TH PERCENTILE OF cTnI DISTRIBUTION IN A REFERENCE POPULATION, HAS BEEN CONFIRMED THE DECISION THRESHOLD FOR AL DIAGNOSIS. Performed By: #### L DHARA WAITE, HSTROPN #### [facility] [address] [place] [address] Dr. Aissatou Vásquez TSHon 07-01-2022 TSH 7.840 uIU/mL Critically high 0.358-3.740 [facility] Comment on above: Performed By: #### L DHARA WAITE, HSTROPN #### [facility] [address] [place] [address] Dr. Aissatou Vásquez URINE MICROSCOPIC ONLYon BACTERIA NONE SEEN Normal NONE SEEN [facility] Comment on above: Performed By: #### C ADAM #### [facility] [address] [place] [address] Dr. Aissatou Vásquez Bacteria identified Cx Nom (U) NOT INDICATED Normal [facility] Comment on above: Performed By: #### C ADAM #### [facility] [address] [place] [address] Dr. Aissatou Vásquez CAST NONE SEEN Normal NONE SEEN [facility] Comment on above: Performed By: #### C ADAM #### [facility] [address] [place] [address] Dr. Aissatou Vásquez Crystals LM Nom (Urine sed) NONE SEEN Normal NONE SEEN [facility] Comment on above: Performed By: #### C ADAM #### [facility] [address] [place] [address] Dr. Aissatou Vásquez Epithelial cells LM Ql (Urine sed) RARE Normal NONE SEEN /RARE [facility] Comment on above: Performed By: #### C ADAM #### [facility] [address] [place] [address] Dr. Aissatou Vásquez MUCOUS TRACE Abnormal NONE SEEN [facility] Comment on above: Performed By: #### C ADAM #### [facility] [address] [place] [address] Dr. Aissatou Vásquez RBC 2-5 Abnormal 0-2 [facility] Comment on above: Performed By: #### C ADAM #### [facility] [address] [place] [address] [address] Aissatou Vásquez WBC 2-5 Abnormal NONE SEEN [facility] Comment on above: Performed By: #### C ADAM #### [facility] [address] [place] [address] Dr. Aissatou Vásquez XR CHEST 1 Von [...] Jhony TOTH Date: 2022-07-01 18:01 Normal [facility] AMMONIAon 06-05-2022 Ammonia (P) [Mass/Vol] ug/dL Critically low -32 [facility] Comment on above: Performed By: #### L IVER, BMP, HSTROPN #### [facility] [address] [place] [address] Dr. Aissatou Vásquez BNPon 06-05-2022 Natriuretic peptide B (Bld) [Mass/Vol] 672.0 pg/mL Normal <=1,800.0 [facility] Comment on above: Performed By: #### T SH, CMP, FT3, BNP, T4, LIPID #### [facility] [address] [place] [address] Dr. Aissatou Vásquez CBC AUTO DIFFon 06-05-2022 BASO # 0.0 103/ul Normal 0.0-0.1 [facility] Comment on above: Performed By: #### C ADAM #### [facility] [address] [place] [address] Dr. Aissatou Vásquez Basophils/100 WBC (Bld) 0.6 % Normal 0.2-2.0 [facility] Comment on above: Performed By: #### C ADAM #### [facility] [address] [place] [address] Dr. Aissatou Vásquez EO # 0.0 103/ul Normal 0.0-0.7 [facility] Comment on above: Performed By: #### C ADAM #### [facility] [address] [place] [address] Dr. Aissatou Vásquez Eosinophils/100 WBC (Bld) 0.6 % Critically low 0.9-7.0 [facility] Comment on above: Performed By: #### C ADAM #### [facility] [address] [place] [address] Dr. Aissatou Vásquez Erythrocyte distribution width (RBC) [Ratio] 13.7 % Normal 11.0-15.0 [facility] Comment on above: Performed By: #### C ADAM #### [facility] [address] [place] [address] Dr. Aissatou Vásquez Hematocrit (Bld) [Volume fraction] 40.7 % Critically low 42.0-54.0 [facility] Comment on above: Performed By: #### C ADAM #### [facility] [address] [place] [address] Dr. Aissatou Vásquez Hemoglobin (Bld) [Mass/Vol] 12.8 g/dL Critically low 14.0-18.0 [facility] Comment on above: Performed By: #### C ADAM #### [facility] Laboratory [address] [place] [address] Dr. Aissatou Vásquez IG # 0.01 10e3/ul Normal 0.00-0.03 [facility] Comment on above: Performed By: #### C ADAM #### [facility] [address] [place] [address] Dr. Aissatou Vásquez IG % 0.2 % Normal 0.0-0.5 [facility] Comment on above: Performed By: #### C ADAM #### [facility] [address] [place] [address] Dr. Aissatou Vásquez LYMPH # 1.7 103/ul Normal 1.2-3.8 [facility] Comment on above: Performed By: #### C ADAM #### [facility] [address] [place] [address] Dr. Aissatou Vásquez Lymphocytes/100 WBC (Bld) 27.5 % Normal 20.5-60.0 [facility] Comment on above: Performed By: #### C ADAM #### [facility] [address] [place] [address] Dr. Aissatou Vásquez MANUAL DIFF REQ NO Normal [facility] Comment on above: Performed By: #### C ADAM #### [facility] [address] [place] [address] Dr. Aissatou Vásquez MCH (RBC) [Entitic mass] 30.3 pg Normal 25.9-34.0 [facility] Comment on above: Performed By: #### C ADAM #### [facility] [address] [place] [address] Dr. Aissatou Vásquez MCHC (RBC) [Mass/Vol] 31.4 g/dL Normal 29.9-35.2 [facility] Comment on above: Performed By: #### C ADAM #### [facility] [address] [place] [address] Dr. Aissatou Vásquez MCV (RBC) [Entitic vol] 96.2 fL Critically high 80.0-94.0 [facility] Comment on above: Performed By: #### C ADAM #### [facility] [address] [place] [address] Dr. Aissatou Vásquez MONO # 0.6 103/ul Normal 0.3-0.8 [facility] Comment on above: Performed By: #### C ADAM #### [facility] [address] [place] [address] Dr. Aissatou Vásquez Monocytes/100 WBC (Bld) 9.9 % Normal 1.7-12.0 [facility] Comment on above: Performed By: #### C ADAM #### [facility] [address] [place] [address] Dr. Aissatou Vásquez NEUT # 3.8 103/ul Normal 1.4-6.5 [facility] Comment on above: Performed By: #### C ADAM #### [facility] [address] [address] [address] Aissatou Vásquez Neutrophils/100 WBC (Bld) 61.2 % Normal 43.0-75.0 [facility] Comment on above: Performed By: #### C ADAM #### [facility] [address] [address] [address] Aissatou Vásquez Platelet mean volume (Bld) [Entitic vol] 9.3 fL Critically low 9.5-13.5 [facility] Comment on above: Performed By: #### C ADAM #### [facility] [address] [address] [address] Aissatou Vásquez PLT 218 103/ul Normal 150-450 [facility] Comment on above: Performed By: #### C ADAM #### [facility] [address] [place] [address] Dr. Aissatou Vásquez RBC 4.23 106/ul Critically low 4.70-6.10 [facility] Comment on above: Performed By: #### C ADAM #### [facility] [address] [place] [address] Dr. Aissatou Vásquez WBC 6.3 103/ul Normal 4.0-11.0 [facility] Comment on above: Performed By: #### C ADAM #### [facility] [address] [place] [address] Dr. Aissatou Vásquez FREE T3on 06-05-2022 FREE T3 1.80 pg/mlL Critically low 2.18-3.98 [facility] Comment on above: Performed By: #### T SH, CMP, FT3, BNP, T4, LIPID #### [facility] [address] [place] [address] Dr. Aissatou Vásquez GLYCOHEMOGLOBIN A1Con 2021 ADA RECOMMENDATION SEE BELOW Normal [facility] Comment on above: Result Comment: ADA RECOMMENDED LIMIT 4.0 - 6.0 ADA THERAPEUTIC TARGET < 7.0 ACTION SUGGESTED > 7.0 Performed By: #### L IVER, BMP, HSTROPN #### [facility] [address] [address] [address] Aissatou Vásquez Glucose [Mass/Vol] 117 mg/dL Normal [facility] Comment on above: Performed By: #### L DHARA WAITE, HSTROPN #### [facility] [address] [address] [address] Aissatou Vásquez HbA1c (Bld) [Mass fraction] 5.7 % Normal 4.5-6.2 [facility] Comment on above: Performed By: #### L DHARA WAITE, HSTROPN #### [facility] [address] [address] [address] Aissatou Vásquez IRONon 06-05-2022 Iron [Mass/Vol] 76.0 ug/dL Normal 65.0-175.0 [facility] Comment on above: Performed By: #### P SASC, VITAD, IRON, B12FOL ####[facility] [address] [address]DrBud Vásquez LIPID PROFILEon 06-05-2022 CHOL-HDL RATIO NORM SEE BELOW Normal [facility] Comment on above: Result Comment: 3.3 - 4.4 LOW RISK 4.4 - 7.1 AVERAGE RISK 7.1 - 11.0 MODERATE RISK >11.0 HIGH RISK Performed By: #### T SH, CMP, FT3, BNP, T4, LIPID ####[facility] [address] [address]DrBud Vásquez Cholesterol [Mass/Vol] 133 mg/dL Normal <=200 [facility] Comment on above: Performed By: #### T SH, CMP, FT3, BNP, T4, LIPID ####[facility] [address] [id number] Vásquez Cholesterol in HDL [Mass/Vol] 79 mg/dL Critically high 40-60 [facility] Comment on above: Performed By: #### T SH, CMP, FT3, BNP, T4, LIPID ####[facility] [address] [id number] Vásquez Cholesterol in LDL [Mass/Vol] 43.6 mg/dL Normal [facility] Comment on above: Performed By: #### T SH, CMP, FT3, BNP, T4, LIPID ####[facility] [address] [address]Dr. Aissatou Vásquez Cholesterol.total/Cho lesterol in HDL [Mass ratio] 1.7 {ratio} Normal [facility] Comment on above: Performed By: #### T SH, CMP, FT3, BNP, T4, LIPID ####[facility] [address] [address]Dr. Aissatou Vásquez HDL NORMAL > or = 60 mg/dl - LO W CARDIOVASCULAR RISK <40 mg/dl - HIGH CARDIOVASCULAR RISK Normal [facility] Comment on above: Performed By: #### T SH, CMP, FT3, BNP, T4, LIPID ####[facility] [address] [address]Dr. Aissatou Vásquez LDL CALC NORMAL SEE BELOW Normal [facility] Comment on above: Result Comment: <100 mg/dl OPTIMAL 100 - 129 mg/dl NEAR OR ABOVE OPTIMAL 130 - 159 mg/dl BORDERLINE HIGH 160 - 189 mg/dl HIGH >190 mg/dl VERY HIGH Performed By: #### T SH, CMP, FT3, BNP, T4, LIPID ####[facility] [address] [address]Dr. Aissatou Vásquez Triglyceride [Mass/Vol] 52 mg/dL Normal <=150 [facility] Comment on above: Performed By: #### T SH, CMP, FT3, BNP, T4, LIPID ####[facility] [address] [address]Dr. Aissatou Vásquez VLDL CALC 10.4 mg/dL Normal [facility] Comment on above: Performed By: #### T SH, CMP, FT3, BNP, T4, LIPID ####[facility] [address] [address]Dr. Aissatou Vásquez PROF 14(COMP METB)on 022 Albumin [Mass/Vol] 4.0 g/dL Normal 3.4-5.0 [facility] Comment on above: Performed By: #### T SH, CMP, FT3, BNP, T4, LIPID ####[facility] [address] [address]Dr. Aissatou Vásquez Albumin/Globulin [Mass ratio] 1.1 {ratio} Normal [facility] Comment on above: Performed By: #### T SH, CMP, FT3, BNP, T4, LIPID ####[facility] [address] [address]Dr. Aissatou Vásquez ALP [Catalytic activity/Vol] 137 U/L Critically high 46-116 [facility] Comment on above: Performed By: #### T SH, CMP, FT3, BNP, T4, LIPID ####[facility] [address] [address]Dr. Aissatou Vásquez ALT [Catalytic activity/Vol] 18 U/L Normal 16-63 [facility] Comment on above: Performed By: #### T SH, CMP, FT3, BNP, T4, LIPID ####[facility] [address] [address]Dr. Aissatou Vásquez Anion gap [Moles/Vol] 11.1 mmol/L Normal [facility] Comment on above: Performed By: #### T SH, CMP, FT3, BNP, T4, LIPID ####[facility] [address] [address]Dr. Aissatou Vásquez AST [Catalytic activity/Vol] 9 U/L Critically low 15-37 [facility] Comment on above: Performed By: #### T SH, CMP, FT3, BNP, T4, LIPID ####[facility] [address] [address]Dr. Aissatou Vásquez Bilirubin [Mass/Vol] 0.3 mg/dL Normal 0.2-1.0 [facility] Comment on above: Performed By: #### T SH, CMP, FT3, BNP, T4, LIPID ####[facility] [address] [address]Dr. Sheysarah Vásquez Calcium [Mass/Vol] 9.4 mg/dL Normal 8.5-10.1 [facility] Comment on above: Performed By: #### T SH, CMP, FT3, BNP, T4, LIPID ####[facility] [address] [address]Dr. Aissatou Vásquez Chloride [Moles/Vol] 102 mmol/L Normal 98-107 [facility] Comment on above: Performed By: #### T SH, CMP, FT3, BNP, T4, LIPID ####[facility] [address] [address]Dr. Aissatou Vásquez CO2 [Moles/Vol] 29.7 mmol/L Normal 21.0-32.0 [facility] Comment on above: Performed By: #### T SH, CMP, FT3, BNP, T4, LIPID ####[facility] [address] [address]Dr. Aissatou Vásquez Creatinine [Mass/Vol] 1.62 mg/dL Critically high 0.70-1.30 [facility] Comment on above: Performed By: #### T SH, CMP, FT3, BNP, T4, LIPID ####[facility] [address] [place], [place] [address]Dr. Aissatou Vásquez EGFR-AF GUATEMALAN 50 mL/min/1.73m2 Critically low >=60 [facility] Comment on above: Performed By: #### T SH, CMP, FT3, BNP, T4, LIPID ####[facility] [address] [address]Dr. Aissatou Vásquez EGFR-NON AF GUATEMALAN 41 mL/min/1.73m2 Critically low >=60 [facility] Comment on above: Performed By: #### T SH, CMP, FT3, BNP, T4, LIPID ####[facility] [address] [address]Dr. Aissatou Vásquez Globulin (S) [Mass/Vol] 3.8 g/dL Normal [facility] Comment on above: Performed By: #### T SH, CMP, FT3, BNP, T4, LIPID ####[facility] [address] [address]Dr. Aissatou Vásquez Glucose [Mass/Vol] 86 mg/dL Normal 74-106 [facility] Comment on above: Performed By: #### T SH, CMP, FT3, BNP, T4, LIPID ####[facility] [address] [address]Dr. Aissatou Vásquez Potassium [Moles/Vol] 4.8 mmol/L Normal 3.5-5.1 [facility] Comment on above: Performed By: #### T SH, CMP, FT3, BNP, T4, LIPID ####[facility] [address] [address]Dr. Aissatou Vásquez Protein [Mass/Vol] 7.8 g/dL Normal 6.4-8.2 [facility] Comment on above: Performed By: #### T SH, CMP, FT3, BNP, T4, LIPID ####[facility] [address] [address]Dr. Aissatou Vásquez Sodium [Moles/Vol] 138 mmol/L Normal 136-145 [facility] Comment on above: Performed By: #### T SH, CMP, FT3, BNP, T4, LIPID ####[facility] [address] [address]Dr. Aissatou Vásquez Urea nitrogen [Mass/Vol] 41.0 mg/dL Critically high 7.0-18.0 [facility] Comment on above: Performed By: #### T SH, CMP, FT3, BNP, T4, LIPID ####[facility] [address] [address]Dr. Aissatou Vásquez Urea nitrogen/Creatinine [Mass ratio] 25.3 mg/mg Normal [facility] Comment on above: Performed By: #### T SH, CMP, FT3, BNP, T4, LIPID ####[facility] [address] [address]DrBud Vásquez T4on 06-05-2022 T4 [Mass/Vol] 9.70 ug/dL Normal 4.50-12.10 [facility] Comment on above: Performed By: #### T SH, CMP, FT3, BNP, T4, LIPID #### [facility] [address] [address] [address] Aissatou Vásquez TSHon 06-05-2022 TSH 2.525 uIU/mL Normal 0.358-3.740 [facility] Comment on above: Performed By: #### T SH, CMP, FT3, BNP, T4, LIPID ####[facility] [address] [place], [place] [address]Zn. Aissatou Vásquez VIT B12 AND FOLATEon 022 Cobalamin (Vitamin B12) [Mass/Vol] 1004.0 pg/mL Critically high 193.0-986.0 [facility] Comment on above: Performed By: #### P SASC, VITAD, IRON, B12FOL ####[facility] [address] [id number]. Aissatou Vásquez FOLATE 6.10 ng/mL Critically low 8.60-58.90 [facility] Comment on above: Performed By: #### P SASC, VITAD, IRON, B12FOL ####[facility] [address] [id number]. Aissatou Vásquez VITAMIN D 25 OHon 06-05-2022 VIT D 25-OH 31.8 ng/mL Normal [facility] Comment on above: Performed By: #### P SASC, VITAD, IRON, B12FOL ####[facility] [address] [id number]. Aissatou Vásquez VIT D RANGES SEE BELOW Normal [facility] Comment on above: Result Comment: <20 ng/mL Vit D deficient 20 - <30 ng/mL Vit D insufficient 30 - 100 ng/mL Vit D sufficient >100 ng/mL Potential Toxicity Performed By: #### P SASC, VITAD, IRON, B12FOL ####[facility] [address] [id number]. Aissatou Vásquez Coding Summary.on 01-23-2017 Coding Summary. CODING DATE: 01/23/2017 FINAL [facility] STATUS: Home (Routine DC) PAYOR: Medicare APC [...] [place] Date Saved: 01/23/2017 10:07 am Normal [facility] Creatinineon 01-22-2017 Creatinine 1.0 mg/dL Normal 0.5-1.3 [facility] Comment on above: Performed By: #### 2 [id number], [id number] ####[facility] [address] [place] [address] eGFRon 01-22-2017 eGFR (black) mL/min/{1.73_m2} Normal >=59 [facility] Comment on above: Order Comment: Order added by Discern Expert. Result Comment: eGFR is race adjusted. AA=. Performed By: #### 2 [id number], [id number] ####[facility] [address] [place] [address] eGFR (non-black) mL/min/{1.73_m2} Normal >=59 [facility] Comment on above: Order Comment: Order added by Discern Expert. Result Comment: Mending Carrier matt kidney disease could be indicated at eGFR's of less than 60 mL/min/1.73m2. Kidney failure is indicated at less than 15 mL/min/1.73m2. Performed By: #### 2 [id number], [id number] ####[facility] [address] [place] [address] Vital Signs Date Time Vital Sign Value Performing Clinician Luci jacob 03-23-2023 13:55-0400 Diastolic blood pressure 68 mm[Hg] Gonormanfrantz Deepaure DO Work Phone: [facility] 03-23-2023 13:55-0400 Heart rate 51 /min Jodi Banerjee DO Work Phone: [facility] 03-23-2023 13:55-0400 Systolic blood pressure 151 mm[Hg] Jodi Banerjee DO Work Phone: [facility] 08-27-2022 13:12-0500 Diastolic blood pressure 70 mm[Hg] Jodi Banerjee DO Work Phone: [facility] 08-27-2022 13:12-0500 Heart rate 69 /min Jodi Banerjee DO Work Phone: [facility] 08-27-2022 13:12-0500 Systolic blood pressure 156 mm[Hg] Jodi Banerjee DO Work Phone: [facility] Encounters Encounter Date Encounter Type Care Provider Facility Start: 08-11-2023 End: 08-12-2023 ambulatory PIPE HOPKINS [facility] Start: 07-23-2023 End: 07-23-2023 ambulatory AMANDA IRBY Not Available Start: 06-24-2023 End: 06-24-2023 ambulatory [facility] Start: 03-23-2023 End: 03-23-2023 ambulatory JODI BANERJEE Facility:[facility] Start: 03-23-2023 End: 03-23-2023 Patient encounter procedure Jodi Banerjee DO Work Phone: Neurology Comment on above: Altered mental statu s, unspecified altered mental status type (Primary Dx); Memory loss Start: 03-23-2023 Telephone encounter Rudi Banerjee DO Work Phone: Neurology Start: 12-25-2022 End: 12-26-2022 ambulatory [facility] Start: 10-27-2022 End: 10-28-[address] PIPE HOPKINS . Facility:[facility] Start: 09-24-2022 End: 09-24-[address] PIPE HOPKINS . Facility:[facility] Start: 09-22-2022 End: 09-22-2022 ambulatory [facility] Start: 08-27-2022 End: 08-28-2022 ambulatory PIPE HOPKINS Facility:[facility] Start: 08-27-2022 End: 08-27-2022 Patient encounter procedure [...] Start: 06-25-2017 End: 06-26-2017 Ambulatory DEFAULT PHYSICIAN Facility:[facility] Start: 01-22-2017 End: 01-23-2017 Ambulatory SHONDA ALTAMIRANO [place] Start: 05-27-2011 Patient encounter status Jodi Banerjee DO Work Phone: [facility] Work Phone: Procedures Date Procedure Procedure Detail Performing Clinician Start: 06-05-[address] ORTIZ HOPKINS . Comment on above: Performed By: #### P SASC, VITAD, IRON, B12FOL ####[facility] [address] [place], [place] [address]VxBud Aissatou Fahad Start: 02-20-2020 History of coronary artery bypass grafting S/P CABG (coronary artery bypass graft), PARRA to the LAD, SVG to D1, SVG to OM1, SVG to OM 2, inverted Y grafted PLV and posterior descending artery. Jodi Banerjee DO Work Phone: Plan of Treatment Date Care Activity Detail Author Start: 03-06-2023 Influenza vaccination Influenza Vacc ine (#1) [facility] Start: 08-27-2022 End: 10-27-2022 25-hydroxyvitamin D3 [Mass/volume] in Serum or Plasma [facility] Work Phone: Comment on above: Expected: 08/27/2022 , Expires: 10/27/2022 Start: 08-27-2022 End: 10-27-2022 SYPHILIS TOTAL W/REFLEX [facility] Work Phone: Comment on above: Expected: 08/27/2022 , Expires: 10/27/2022 Start: 07-06-2022 ADVANCE DIRECTIVE DISCUSSION ADVANCE DIRECTIVE DISCUSSION [facility] Start: 07-06-2022 DEPRESSION ASSESSMENT DEPRESSION ASS ESSMENT [facility] Start: 03-06-2022 Influenza vaccination INFLUENZA (#1) [facility] Start: 12-17-2019 DIABETES SCREEN DIABETES SCREEN [facility] Start: 12-17-2019 Diabetes Screening Diabetes Screenin g [facility] Start: 05-21-2012 Hepatitis B surface antibody level LDL CHOLESTEROL [facility] Start: 2003 Pneumococcal Vaccine : 65+ (1 - PCV) Pneumococcal Vaccine: 65+ (1 - PCV) [facility] Start: 2003 PNEUMOCOCCAL: 65+ (1 - PCV) PNEUMOCOCCAL: 65+ (1 - PCV) [facility] Start: 1988 SHINGRIX VACCINE (1 of 2) SHINGRIX VACCINE (1 of 2) [facility] Start: 1957 Urine microalbumin profile [facility] Start: 02-18-1939 COVID-19 VACCINE (#1) COVID-19 VACCI NE (#1) [facility] [place] [facility] Immunizations Immunization Date Immunization Notes Care Provider Jewell molina 06-18-2017 influenza virus vaccine, unspecified formulation Jodi Banerjee DO Work Phone: [facility] Payers Date Payer Category Payer Medicare [id number] 2016 Private Health Insurance [facility] AARP SUPPLEMENT [id number] 2016-Present [phone] [address] [place] [address] Indemnity [id number] 2003 Medicare MEDICARE MEDICAR E A AND B [id number] 2003-Present [phone] [place] [address] Medicare [id number] 1959 Medicaid [id number] 1959 Medicare [id number] 1959 Unknown [id number] 1938 Unknown [id number]. 593 1938 Unknown [id number] [id number]. 593 1938 Unknown [id number] [id number]. 593 1938 Unknown [id number] [id number]. 593 1938 Unknown [id number] [id number]. 593 1938 Unknown [id number] [id number]. 593 1938 Unknown [id number] [id number]. 593 1938 Unknown [id number] [id number]. 593 1938 Unknown [id number] [id number]. 1259 1938 Unknown [id number]. 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 National Score (1-10 0), lower number is lower risk 52 [facility] Clinical Notes 05-28-2011 to 06-24-2023 Telephone Encounter - Terri Santos - 03/23/2023 3:27 PM EDTPatient Jodi Vernon, - 03/23/2023 1:46 PM Denver Banerjee, DO - 08/27/2022 1:12 PM EST Note Date & Type Note Facility 06-24-2023 Note [place] [facility] Subjective Leanna Nelson is a 82 y.o. year old male patient being seen for 6 mo follow up CAD, hypertension, chronic diastolic heart failure, and carotid artery stenosis. Had routine labs in Mar 2023. Doing well from cardiac standpoint. No recurrent syncope. Patient Active Problem List Diagnosis Chronic diastolic heart failure (CMS/HCC) PAC (premature atrial contraction) Coronary artery disease involving hopland coronary artery of hopland heart without angina pectoris Hx of CABG [...] , Rfl: multivitamin (more content not included)... [facility] 03-23-2023 Note HNO ID: [id number] Author: Jodi Banerjee, DO Service: ? Author Type: Physician Type: Progress Notes Filed: 03/23/2023 2:41 PM Note Text: [facility] [place] Follow-up visit March 23, 2023 HPI: Overall [...] encounter he has moved and low lives [facility]. He states he does not [...] mainly his brother. He has seen by die cast supervisor in 01/2023 with suggestion that he get a hearing aide but he refuses. After his last encounter he has followed up with cardiology concerning his heart rate that was auscultated on last encounter. They checked his heart rhythm and thought it was appropriate. This was as via physician in [place]. They deny other changes to his health and/or medications except for the above since our last encounter. PAST MEDICAL HISTORY Diagnosis Date Arthritis Carotid stenosis Coronary artery disease Coronary atherosclerosis of unspecified type of vessel, hopland or graft 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 Dyslipidemia Hypertension Hypertension Hypothyroid Lumbar disc disease Unspecified hypothyroidism Hypothyroidism PAST SURGICAL HISTORY Procedure Laterality Date PAST SURGICAL HISTORY OF CABG times 6 left internal thoracic artery to the [id number] left anterior descending artery, reverse saphenous vein [...] tablet Take 5 (more content not included)... [facility] 03-23-2023 Miscellaneous Notes 03/23/2023 After visit Summary faxed to Dr Hopkins with confirmation received. PSS forgot to have pt complete release of information forms. This nurse has placed 2 copies in [place] mail for pt to complete and take to facility to release information to our office. POA was advised via voice message to send a [employer] msg if he had any further question. Terri [facility] documented in this encounter [facility] 03-23-2023 Instructions Jodi Banerjee, DO - 03/23/2023 2:40 PM EDT Please sign records release for last blood test results. documented in this encounter [facility] 03-23-2023 History of Present illness Narrative [facility] [place] Follow-up visit March 23, 2023 HPI: Overall [...] encounter he has moved and low lives [facility]. He states he does not [...] mainly his brother. He has seen by die cast supervisor in 01/2023 with suggestion that he get a hearing aide but he refuses. After his last encounter he has followed up with cardiology concerning his heart rate that was auscultated on last encounter. They checked his heart rhythm and thought it was appropriate. This was as via physician in [place]. They deny other changes to his health and/or medications except for the above since our last encounter. PAST MEDICAL HISTORY Diagnosis Date Arthritis Carotid stenosis Coronary artery disease Coronary atherosclerosis of unspecified type of vessel, hopland or graft 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 Dyslipidemia Hypertension Hypertension Hypothyroid Lumbar disc disease Unspecified hypothyroidism Hypothyroidism PAST SURGICAL HISTORY Procedure Laterality Date PAST SURGICAL HISTORY OF CABG times 6 left internal thoracic artery to the btl-ic-yusqwd left anterior descending artery, reverse saphenous vein [...] with more than 50% of the total [id number]-nv-[id number] time of the visit in counseling / coordination of care. documented in this encounter [facility] 12-25-2022 Note [place] [facility] Subjective Leanna Nelson is a 82 y.o. year old male patient being seen for Follow-up (3 month follow up ) Patient Active Problem List Diagnosis Chronic diastolic heart failure (CMS/HCC) PAC (premature atrial contraction) Coronary artery disease involving hopland coronary artery of hopland heart without angina pectoris Hx of CABG [...] , Rfl: choleca (more content not included)... [facility] 09-22-2022 Note Cardiovascular Medic in[facility] SUBJECTIVE Chief Complaint Patient presents with office visit brother made appt had appt with neuro thought they heard something when listening to heart. confirmed Leanna Nelson is a 82 y.o. male here for follow-up. HPI PMHx: CAD s/p CABG 2010, HTN, HLD, former tobacco use, hypothyroidism, SAGAR (mild) FMHx: brother hx of AL/CAD and HFrEF 09/22/2022 He is accompanied by his brother. He was admitted back in 06/2022 d/t a fall, treated for rhabdo. He currently [facility] in [facility]. [facility] His weight is up about 30# [...] (premature atrial contraction) Coronary artery disease involving hopland coronary artery of hopland heart without angina pectoris Hx of CABG [...] the internal booker (more content not included)... [facility] 09-22-2022 Note Review of Systems Cardiovascular: Positive for leg swelling and near-syncope. Negative for chest pain, claudication, cyanosis, dyspnea on exertion, irregular heartbeat, orthopnea, palpitations, paroxysmal nocturnal dyspnea and syncope. Bilateral leg swelling [facility] 08-27-2022 Note HNO ID: [id number] Author: Jodi Banerjee, DO Service: ? Author Type: Physician Type: Progress Notes Filed: 08/27/2022 2:35 PM Note Text: [facility] [place] New Patient Consultation August 27, 2022 HPI: [...] while there. They have been working with clinical social work therapist at the facility he is at but [...] Coronary atherosclerosis of unspecified type of vessel, hopland or graft 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 Dyslipidemia Hypertension Hypertension Hypothyroid Lumbar disc disease Unspecified hypothyroidism Hypothyroidism PAST SURGICAL HISTORY Procedure Laterality Date PAST SURGICAL HISTORY OF CABG times 6 left internal thoracic artery to the hbn-co-tlmlys left anterior descending artery, reverse saphenous vein [...] Former Packs/day: 1.0 (more content not included)... [facility] 08-27-2022 History of Present illness Narrative [facility] [place] New Patient Consultation August 27, 2022 HPI: [...] while there. They have been working with clinical social work therapist at the facility he is at but [...] Coronary atherosclerosis of unspecified type of vessel, hopland or graft 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 Dyslipidemia Hypertension Hypertension Hypothyroid Lumbar disc disease Unspecified hypothyroidism Hypothyroidism PAST SURGICAL HISTORY Procedure Laterality Date PAST SURGICAL HISTORY OF CABG times 6 left internal thoracic artery to the apf-lj-bauvpl left anterior descending artery, reverse saphenous vein [...] with small sharp steps on left. MMSE= missed one for day of the week, [...] CPK (1646), COVID, UDS, UA, CMP, Myoglobin (204), Trop/HSTROP (102.3), TSH, CBC 06/05/2022 Ammonia, BNP, [...] with more than 50% of the total qsct-sl-jeha time of the visit in counseling / coordination of care. documented in this encounter [facility] 05-28-2011 History of Past i llness Narrative Problem Noted Date Resolved Date Stress hyperglycemia 05/28/2011 06/01/2011 Overview: RHI gtt per ICU protocol Mechanically assisted ventilation 05/28/2011 05/29/2011 Overview: Extubated 05/29/11 no increased work of breathing Hypotension 05/28/2011 05/30/2011 Overview: Levo off this morning, hemodynamically stable. documented as of this encounter (statuses as of 08/27/2022) [facility] History of Past illness Narrative* Problem Noted Date Diagnosed Date Resolved Date Stress hyperglycemia 05/28/2011 011 Overview: RHI gtt per ICU protocol Mechanically assisted ventilation 05/28/2011 05/29/2011 Overview: Extubated 05/29/11 no increased work of breathing Hypotension 05/28/2011 05/30/2011 Overview: Levo off this morning, hemodynamically stable. documented as of this encounter (statuses as of 03/24/2023) [facility] History of Past illness Narrative* Problem Noted Date Diagnosed Date Resolved Date Stress hyperglycemia 05/28/2011 011 Overview: RHI gtt per ICU protocol Mechanically assisted ventilation 05/28/2011 05/29/2011 Overview: Extubated 05/29/11 no increased work of breathing Hypotension 05/28/2011 05/30/2011 Overview: Levo off this morning, hemodynamically stable. documented as of this encounter (statuses as of 03/24/2023) [facility] Altered mental status, unspecified altered mental status type- Primary Vitamin D deficiency, unspecified [facility] Diagnosis Altered mental status, unspecified altered mental status type- Primary Memory loss documented in this encounter [facility] Summary Purpose Family History No Family History Records FoundNo Family History Records FoundNo Family History Records FoundNo Family History Records FoundNo Family History Records FoundNo Family History Records FoundNo Family History Records FoundNo Family History Records Found Advance Directives No Advanced Directives Records FoundDocuments on File Type Date 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 Advance Directive(s) 08/27/2022 1:25 PM Additional Source Comments (unrecognized sect ion and content) No Status Records FoundNo Status Records FoundNo Status Records FoundNo Status Records FoundNo Status Records FoundNo Status Records FoundNo Status Records FoundNo Status Records Found INFORMATION SOURCE (unrecogn ized section and content) DATE CREATED AUTHOR 12/29/2017 [facility] DATE CREATED AUTHOR AUTHOR'S ORGANIZ ATION 12/30/2017 Ramiro Tong [facility] DATE CREATED AUTHOR AUTHOR'S ORGANIZ ATION 08/28/2022 [facility] DATE CREATED AUTHOR AUTHOR'S ORGANIZ ATION 12/12/[address] [facility] DATE CREATED AUTHOR AUTHOR'S ORGANIZ ATION 03/25/2023 [facility] DATE CREATED AUTHOR AUTHOR'S ORGANIZ ATION 06/25/2023 [facility] DATE CREATED AUTHOR AUTHOR'S ORGANIZ ATION 07/24/2023 [facility] DATE CREATED AUTHOR AUTHOR'S ORGANIZ ATION 08/17/2023 [facility] Source Comments (unrecognize d section and content) In the event this informatio n is protected by the Federal Confidentiality of Alcohol and Drug Abuse Patient Records regulations: The Federal rules restrict any use of the information to criminally investigate or prosecute any alcohol or drug abuse patient.[facility] the event this information is protected by the Federal Confidentiality of Alcohol and Drug Abuse Patient Records regulations: The Federal rules restrict any use of the information to criminally investigate or prosecute any alcohol or drug abuse patient.[facility] the event this information is protected by the Federal Confidentiality of Alcohol and Drug Abuse Patient Records regulations: The Federal rules restrict any use of the information to criminally investigate or prosecute any alcohol or drug abuse patient.[facility] Reason for Visit (unrecogniz ed section and content) Reason Comments New Patient Reason Comments Follow Up Care Teams (unrecognized sec tion and content) Office Machines Teacher Relationship Specialty Start Date End Date Pipe Hopkins MD [address] [place] [address] PCP - General 05/19/11 [address] [place] [address] Primary Staff Physician Cardiology 09/21/18 Office Machines Teacher Relationship Specialty Start Date End Date Pipe Hopkins MD [address] [place] [address] PCP - General 05/19/11 [address] [place] [address] Primary Staff Physician Cardiology 09/21/18 Office Machines Teacher Relationship Specialty Start Date End Date Pipe Hopkins MD [address] [place] [address] PCP - General 05/19/11 [address] [place] [address] Primary Staff Physician Cardiology 09/21/18 FOR RECORDS [...] BE BASED ON THE PRIMARY CLINICAL RECORDS. [facility] [employer] [facility]. provides no warranty or guarantee of the accuracy or completeness of information in this document.
[2023-09-18 16:52] LABS: Estimated Average Glucose 123 mg/dL; Glycohemoglobin A1C 5.9 % (4.5-6.2)
[2023-09-18 16:56] LABS: Basophils Absolute Auto 0.1 10^3/uL (0.0-0.1); Basophils Percent Auto 0.7 % (0.2-2.0); Eosinophils Absolute Auto 0.4 10^3/uL (0.0-0.7); Hematocrit 41.9 % (42.0-54.0); Hemoglobin 13.1 g/dL (14.0-18.0); Immature Granulocytes Abs Auto 0.02 10^3/uL (0.00-0.03); Immature Granulocytes Pct Auto 0.2 % (0.0-0.5); Lymphocytes Absolute Auto 2.8 10^3/uL (1.2-3.8); Lymphocytes Percent Auto 31.6 % (20.5-60.0); Mean Corpuscular HGB Conc 31.3 g/dL (29.9-35.2); Mean Corpuscular Hemoglobin 29.2 pg (25.9-34.0); Mean Corpuscular Volume 93.3 fL (80.0-94.0); Mean Platelet Volume 9.3 fL (9.5-13.5); Monocytes Absolute Auto 0.7 10^3/uL (0.3-0.8); Monocytes Percent Auto 8.4 % (1.7-12.0); Neutrophils Absolute Auto 4.9 10^3/uL (1.4-6.5); Neutrophils Percent Auto 55.1 % (43.0-75.0); Platelet Count 238 10^3/uL (150-450); Red Blood Count 4.49 10^6/uL (4.70-6.10); Red Cell Distribution Width 13.1 % (11.0-15.0); White Blood Count 8.8 10^3/uL (4.0-11.0)
[2023-09-18 18:09] LABS: Alanine Aminotransferase 22 U/L (16-63); Albumin Globulin Ratio 0.8; Albumin Level 3.6 g/dL (3.4-5.0); Alkaline Phosphatase 104 U/L (46-116); Anion Gap 12.4; Aspartate Amino Transferase 15 U/L (15-37); BUN Creatinine Ratio 22.7; Bilirubin Total 0.3 mg/dL (0.2-1.0); Calcium 9.5 mg/dL (8.5-10.1); Carbon Dioxide 28.9 mmol/L (21.0-32.0); Chloride 99 mmol/L (98-107); Estimated GFR (African America 38 (>=60); Estimated GFR (Non-African Ame 31 (>=60); Free T3 2.62 pg/mL (2.18-3.98); Globulin 4.3 g/dL; Glucose 85 mg/dL (74-106); Potassium 4.3 mmol/L (3.5-5.1); Sodium 136 mmol/L (136-145); Thyroid Stimulating Hormone 1.453 uIU/mL (0.358-3.740); Total Protein 7.9 g/dL (6.4-8.2)
== END 2023-09-18 16:15 | disposition home or self-care (01) ==
LOC: LAB 16:16
PROVIDERS: PCP Family Medicine; Visit Provider Family Medicine
DX: F03.90 Unspecified dementia, unspecified severity, without behavioral disturbance, psychotic disturbance, mood disturbance, and anxiety (principal); I10 Essential (primary) hypertension; I25.10 Atherosclerotic heart disease of native coronary artery without angina pectoris; E03.9 Hypothyroidism, unspecified; R73.09 Other abnormal glucose
CPT/HCPCS: 36415; 80053; 82607; 82746; 83036; 84436; 84443; 84481; 85025

== ENCOUNTER 2024-01-01 06:48 | Outpatient (REF) | payer MEDICARE, SELFPAY ==
--- OUTSIDE RECORDS SUMMARY | 2023-12-30 00:53 | XMS_ITS | CCD ---
Author Organization [facility] Care Team Providers Care Tuber Helper Name Role Phone PHYSICIAN, DEFAULT Unavailable Unavailable PHYSICIAN, DEFAULT Unavailable Unavailable EVELIA, SUNJUK Unavailable Unavailable EVELIA, SUNJUK Unavailable Unavailable EVELIA, SUNJUK Unavailable Unavailable Pipe Hopkins~[phone] UNKNOWN Unavailable Unavailable Pipe Hopkins MD Primary Care Provider [phone] [place] Unavailable PIPE HOPKINS Primary Care Unavailable JODI BANERJEE Referring Unavailab DR PIPE Liang Consulting Unavailable FAWWAD, KAMARA H Admitting Unavailable FAWMARTHAD, KAMARA H Attending Unavailable HOY ., DR BETANCUR Primary Care Unavailable PAY ., DR HUDSON Consulting Unavailable MICHELLE BOO Consulting Unavailable STEPHEN ROUSE Consulting Unavailable ABIDA TOTH Consulting Unavailable KOKO ROMANO Consulting Unavailable FAWWAD, KAMARA H Consulting Unavailable BERNADETTE BEDOLLA Consulting Unavailable SIMPSON, FAROOQ Consulting Unavailable AURY ., DR BETANCUR Attending Unavailable HOY ., DR BETANCUR Admitting Unavailable HOY ., DR BETANCUR Consulting Unavailable HOY ., DR BETANCUR Primary Care Unavailable ZIEBFRANTZ, DR LEATHA Workman Consulting Unavailable HOY ., DR BETANCUR Admitting Unavailable HOY ., DR BETANCUR Consulting Unavailable AURY ., DR BETANCUR Attending Unavailable HOY ., DR BETANCUR Primary Care Unavailable HOY ., DR BETANCUR Admitting Unavailable HOY ., DR BETANCUR Attending Unavailable HOY ., DR BETANCUR Consulting Unavailable MONTYY ., DR BETANCUR Primary Care Unavailable ZIEBER, DR LEATHA Workman Consulting Unavailable MONTYY ., DR BETANCUR Attending Unavailable HOY ., [...] HOY ., DR BETANCUR Primary Care Unavailable AURY ., DR BETANCUR Admitting Unavailable Pipe Hopkins MD Primary Care Provider [phone] [place] Unavailable [phone] JODI BANERJEE Attending PIPE Rascon Primary Care Unavailable JODI BANERJEE Attending UnavailPIPE Jeong Primary Care Unavailable AYSE BARNES Attending Unavailable IRINEO BOSS Attending Unavailable AYSE BARNES Attending Unavailable AMANDA IRBY Attending Unavailable PIPE HOPKINS Referring Unavailable Allergies Allergy Classification Reported Allergen(s) Allergy Type Date of Onset Reaction(s) Facility (2 sources) atorvastatin; Translations: [Lipitor] Drug Allergy [facility] Repository (5 sources) atorvastatin; Translations: [ATORVASTATIN CALCIUM] Drug Allergy 03-28-2014 [facility] (1 source) atorvastatin; Translations: [ATORVASTATIN] Drug Allergy 03-28-2014 [facility] Repository Medications Completed/Discontinued Medications Medication Drug [...] Coronary arteriosclerosis; Translations: [Atherosclerotic heart disease of campo coronary artery without angina pectoris] Onset: 05-27-2011 [...] Onset: 07-14-2022 Episodic Other aftercare (1 source) retirement (current) use of aspirin; Translations: [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] Onset: 07-14-2022 Episodic Other aftercare (1 source) Other long term acute care registered nurse (current) drug therapy; Translations: [[facility] CURRENT DRUG THERAPY] Onset: 07-14-2022 Episodic Other [...] 08-11-2023 Bilirubin Ql (U) Negative Normal NEG [facility] Comment on above: Performed By: #### U A #### [facility] ([id number]) [address] [place] [address] [place] [address] BLOOD/HGB Negative Normal NEG [facility] Comment on above: Performed By: #### U A #### [facility] ([id number]) [address] [place] [address] [place] [address] Color (U) YELLOW Normal YELLOW [facility] Comment on above: Performed By: #### U A #### [facility] ([id number]) [address] [place] [address] [place] [address] Glucose Ql (U) Negative Normal NEG [facility] Comment on above: Performed By: #### U A #### [facility] ([id number]) [address] [place] [address] [place] [address] Ketones Ql (U) Negative Normal NEG [facility] Comment on above: Performed By: #### U A #### [facility] ([id number]) [address] [place] [address] [place] [address] Leukocyte esterase Test strip Ql (U) Negative Normal NEG [facility] Comment on above: Performed By: #### U A #### [facility] ([id number]) [address] [place] [address] Nitrite Ql (U) Negative Normal NEG [facility] Comment on above: Performed By: #### U A #### [facility] ([id number]) [address] [place] [address] pH (U) 6.0 [pH] Normal 5.0-8.5 [facility] Comment on above: Performed By: #### U A #### [facility] ([id number]) [address] [place] [address] Protein Ql (U) Negative Normal NEG [facility] Comment on above: Performed By: #### U A #### [facility] ([id number]) [address] [place] [address] Specific gravity (U) [Rel density] 1.025 Normal 1.003-1.035 [facility] Comment on above: Performed By: #### U A #### [facility] ([id number]) [address] [place] [address] TURBIDITY CLEAR Normal CLEAR [facility] Comment on above: Performed By: #### U A #### [facility] ([id number]) [address] [place] [address] Urobilinogen Qn (U) 0.2 {Ilene'U}/dL Normal <1.1 [facility] Comment on above: Performed By: #### U A #### [facility] ([id number]) [address] [place] [address] URINE CULTUREon 08-11-2023 Bacteria identified Cx Nom (U) CULTURE RESULTS <10,000 ORGANISMS/ML NORMAL URO GENITAL LOIS Normal [facility] Comment on above: Performed By: #### 6 30-4 #### [facility] ([id number]) [address] [place] [address], [address] [place] [address] Office Visiton 06-24-2023 Follow-up visit [id number] Leanna Nelson 1940 M Date Provider Department Center 06/24/2023 AYSE VIVAR Family History Problem Relation Age of Onset Coronary artery disease Brother Heart attack Brother Heart failure Brother Other Brother Family Status - Relation Status Age at Brother Level of Service:46167 ME OFFICE/OUTPATIENT ESTABLISHED LOW MDM 20 MIN Normal [facility] CNOVon 03-23-2023 CNOV Office Visit (NEUSHF ) LEANNA NELSON ([id number]) 1940 M Date Time Provider Department 03/23/23 2:00 PM JODI BANERJEE During your visit today, we recorded the following information about you: Pulse Blood pressure 51/minute 151/68 Jodi Banerjee, DO 03/23/2023 2:41 PM Signed [facility] Follow-up visit March 23, 2023 HPI: Overall [...] encounter he has moved and low lives [facility]. He states he does not [...] mainly his brother. He has seen by rn emergency room in 01/2023 with suggestion that he get a hearing aide but he refuses. After his last encounter he has followed up with cardiology concerning his heart rate that was auscultated on last encounter. They checked his heart rhythm and thought it was appropriate. This was as via physician in [place]. They deny other changes to his health and/or medications except for the above since our last encounter. PAST MEDICAL HISTORY Diagnosis Date Arthritis Carotid stenosis Coronary artery disease Coronary atherosclerosis of unspecified type of vessel, campo or graft 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 Dyslipidemia Hypertension Hypertension Hypothyroid Lumbar disc disease Unspecified hypothyroidism Hypothyroidism PAST SURGICAL HISTORY Procedure Laterality Date PAST SURGICAL HISTORY OF CABG times 6 left internal thoracic artery to the xcz-pu-jsjpgz left anterior descending artery, reverse saphenous vein [...] mouth onc (more content not included)... [facility] Tele[facility] (NEUAV4) LEANNA NELSON ([id number]) 1940 M Date Time Provider Department 03/23/23 JODI BANERJEEAV4 During your visit today, we recorded the following information about you: Terri Santos 03/23/2023 3:31 PM Signed 03/23/2023 After visit Summary faxed to Dr Hopkins with confirmation received. PSS forgot to have pt complete release of information forms. This nurse has placed 2 copies in US mail for pt to complete and take to facility to release information to our office. VIDHYA was advised via voice message to send a mychart msg if he had any further question. 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 Encounter Status:Closed by TERRI SANTOS on 03/23/23 Normal [facility] Office Visiton 12-25-2022 Follow-up visit [id number] Leanna Nelson 1940 M Date Provider Department Center 12/25/2022 367-AYSE BARNES [facility] Family History Problem Relation Age of Onset Coronary artery disease Brother Heart attack Brother Heart failure Brother Other Brother Family Status - Relation Status Age at Brother Level of Service:73716 ME OFFICE/OUTPATIENT ESTABLISHED MOD MDM 30-39 MIN Reason for Visit and Comments: Follow-up [840169] - 3 month follow up Normal [facility] CT CHEST WO CONon 10-27-2022 CT [...] by: LEATHA GAVIRIA Date: 2022-10-27 10:00 Normal [facility] LIPID PROFILEon 09-24-2022 CHOL-HDL RATIO NORM SEE BELOW Normal [facility] Comment on above: Result Comment: 3.3 - 4.4 LOW RISK 4.4 - 7.1 AVERAGE RISK 7.1 - 11.0 MODERATE RISK >11.0 HIGH RISK Performed By: #### L IPID, CMP ####[facility] [address] [place], [place] [address]KaBud Vásquez Cholesterol [Mass/Vol] 149 mg/dL Normal <=200 [facility] Comment on above: Performed By: #### L IPID, CMP ####[facility] [address] [place], [place] [address]DxBud Vásquez Cholesterol in HDL [Mass/Vol] 83 mg/dL Critically high 40-60 [facility] Comment on above: Performed By: #### L IPID, CMP ####[facility] [address] [place] [address]Dr. Aissatou Vásquez Cholesterol in LDL [Mass/Vol] 58.6 mg/dL Normal [facility] Comment on above: Performed By: #### L IPID, CMP ####[facility] [address] [place] [address]Dr. Aissatou Vásquez Cholesterol.total/Cho lesterol in HDL [Mass ratio] 1.8 {ratio} Normal [facility] Comment on above: Performed By: #### L IPID, CMP ####[facility] [address] [place] [address]Dr. Aissatou Vásquez HDL NORMAL > or = 60 mg/dl - LO W CARDIOVASCULAR RISK <40 mg/dl - HIGH CARDIOVASCULAR RISK Normal [facility] Comment on above: Performed By: #### L IPID, CMP ####[facility] [address] [place] [address]Dr. Aissatou Vásquez LDL CALC NORMAL SEE BELOW Normal [facility] Comment on above: Result Comment: <100 mg/dl OPTIMAL 100 - 129 mg/dl NEAR OR ABOVE OPTIMAL 130 - 159 mg/dl BORDERLINE HIGH 160 - 189 mg/dl HIGH >190 mg/dl VERY HIGH Performed By: #### L IPID, CMP ####[facility] [address] [place] [address]Dr. Aissatou Vásquez Triglyceride [Mass/Vol] 37 mg/dL Normal <=150 [facility] Comment on above: Performed By: #### L IPID, CMP ####[facility] [address] [place] [id number]. Aissatou Vásquez VLDL CALC 7.4 mg/dL Normal [facility] Comment on above: Performed By: #### L IPID, CMP ####[facility] [address] [place] [address]Dr. Aissatou Vásquez PROF 14(COMP METB)on 023 Albumin [Mass/Vol] 3.8 g/dL Normal 3.4-5.0 [facility] Comment on above: Performed By: #### L IPID, CMP ####[facility] [address] [place] [address]Dr. Aissatou Vásquez Albumin/Globulin [Mass ratio] 1.0 {ratio} Normal [facility] Comment on above: Performed By: #### L IPID, CMP ####[facility] [address] [place] [address]Dr. Aissatou Vásquez ALP [Catalytic activity/Vol] 98 U/L Normal 46-116 [facility] Comment on above: Performed By: #### L IPID, CMP ####[facility] [address] [place] [address]Dr. Aissatou Vásquez ALT [Catalytic activity/Vol] 25 U/L Normal 16-63 [facility] Comment on above: Performed By: #### L IPID, CMP ####[facility] [address] [place] [address]Dr. Aissatou Vásquez Anion gap [Moles/Vol] 15.5 mmol/L Normal [facility] Comment on above: Performed By: #### L IPID, CMP ####[facility] [address] [place] [address]Dr. Aissatou Vásquez AST [Catalytic activity/Vol] 21 U/L Normal 15-37 [facility] Comment on above: Performed By: #### L IPID, CMP ####[facility] [address] [place] [address]Dr. Aissatou Vásquez Bilirubin [Mass/Vol] 0.5 mg/dL Normal 0.2-1.0 [facility] Comment on above: Performed By: #### L IPID, CMP ####[facility] [address] [place] [address]Dr. Aissatou Vásquez Calcium [Mass/Vol] 9.5 mg/dL Normal 8.5-10.1 [facility] Comment on above: Performed By: #### L IPID, CMP ####[facility] [address] [place] [address]Dr. Aissatou Vásquez Chloride [Moles/Vol] 107 mmol/L Normal 98-107 [facility] Comment on above: Performed By: #### L IPID, CMP ####[facility] [address] [place], [place] [address]Dr. Aissatou Vásquez CO2 [Moles/Vol] 23.0 mmol/L Normal 21.0-32.0 [facility] Comment on above: Performed By: #### L IPID, CMP ####[facility] [address] [place], [place] [address]Dr. Aissatou Vásquez Creatinine [Mass/Vol] 1.75 mg/dL Critically high 0.70-1.30 [facility] Comment on above: Performed By: #### L IPID, CMP ####[facility] [address] [place], [place] [address]Dr. Aissatou Vásquez EGFR-AF MALDIVIAN 45 mL/min/1.73m2 Critically low >=60 [facility] Comment on above: Performed By: #### L IPID, CMP ####[facility] [address] [place], [place] [address]Dr. Aissatou Vásquez EGFR-NON AF MALDIVIAN 37 mL/min/1.73m2 Critically low >=60 [facility] Comment on above: Performed By: #### L IPID, CMP ####[facility] [address] [place], [place] [address]Dr. Aissatou Vásquez Globulin (S) [Mass/Vol] 3.7 g/dL Normal [facility] Comment on above: Performed By: #### L IPID, CMP ####[facility] [address] [place], [place] [address]Dr. Aissatou Vásquez Glucose [Mass/Vol] 83 mg/dL Normal 74-106 [facility] Comment on above: Performed By: #### L IPID, CMP ####[facility] [address] [place], [place] [address]Dr. Aissatou Vásquez Potassium [Moles/Vol] 4.5 mmol/L Normal 3.5-5.1 [facility] Comment on above: Performed By: #### L IPID, CMP ####[facility] [address] [place], [place] [address]Zx. Aissatou Vásquez Protein [Mass/Vol] 7.5 g/dL Normal 6.4-8.2 [facility] Comment on above: Performed By: #### L IPID, CMP ####[facility] [address] [place], [place] [address]Xj. Aissatou Vásquez Sodium [Moles/Vol] 141 mmol/L Normal 136-145 [facility] Comment on above: Performed By: #### L IPID, CMP ####[facility] [address] [place], [place] [address]Uw. Aissatou Vásquez Urea nitrogen [Mass/Vol] 46.0 mg/dL Critically high 7.0-18.0 [facility] Comment on above: Performed By: #### L IPID, CMP ####[facility] [address] [place], [place] [address]Bt. Aissatou Vásquez Urea nitrogen/Creatinine [Mass ratio] 26.3 mg/mg Normal [facility] Comment on above: Performed By: #### L IPID, CMP ####[facility] [address] [place], [place] [address]Ff. Aissatou Vásquez Office Visiton 09-22-2022 Follow-up visit [id number] Leanna Nelson 1940 M Date Provider Department Center 09/22/2022 Alexandrea-IRINEO BOSS [facility] No family history on file Level of Service:11881 ME OFFICE/OUTPATIENT ESTABLISHED MOD MDM 30-39 MIN Reason for Visit and Comments: office visit [Other] - brother made appt had appt with neuro thought they heard something when listening to heart. confirmed Normal [facility] 25([place])D3 [facility] 25-hydroxyvitamin D3 [Mass/Vol] 28.6 ng/mL Low 31.0-80.0 [facility] Comment on above: Order Comment: Speci men Type: BLOOD SPECIMEN Ordering Facility: [facility] Address: [address] [place] [id number] Result Comment: Clas sification of 25 [place] Vitamin D status: Deficiency/Insufficiency: < or = 30 ng/ml. Sufficiency/Optimal Levels: 31-80 ng/mL Toxicity: > 100 ng/mL. Test performed by chemiluminescent immunoassay. Performed By: #### 1 989-3 #### [facility] CLIA [id number] [address] [place] [address] [place] CNOVon 08-27-2022 CNOV Office Visit (NEUAV4 ) GOPILEANNA Torey ([id number]) 1940 M Date Time Provider Department 08/27/22 1:00 PM JODI BANERJEEAV4 During your visit today, we recorded the following information about you: Pulse Blood pressure 69/minute 156/70 Jodi Banerjee DO 08/27/2022 2:35 PM Addendum [facility] New Patient Consultation August 27, 2022 HPI: [...] while there. They have been working with addiction social worker at the facility he is [...] Coronary atherosclerosis of unspecified type of vessel, campo or graft 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 Dyslipidemia Hypertension Hypertension Hypothyroid Lumbar disc disease Unspecified hypothyroidism Hypothyroidism PAST SURGICAL HISTORY Procedure Laterality Date PAST SURGICAL HISTORY OF CABG times 6 left internal thoracic artery to the ryo-gq-prkjxg left anterior descending artery, reverse saphenous vein [...] on 08/07 (more content not included)... Normal [facility] Reagin and Treponema pallidu m IgG and IgM [Interp]on 08-27-2022 SYPHILIS INTERPRETATION Cannot exclude recent Treponemal infection if specimen collected within 7-10 days after appearance of suspect lesions or 2-3 weeks after an exposure. Clinical correlation is required. Normal [facility] Comment on above: Order Comment: Speci men Type: BLOOD SPECIMEN Ordering Facility: [facility] Address: [address] [place] [address] Performed By: #### 7 3752-8 #### [facility] CLIA [id number] [address] [place] [address] [place] T. pallidum IgG+IgM IA Ql (S) Non-Reactive Normal Nonreactive [facility] Comment on above: Order Comment: Speci men Type: BLOOD SPECIMEN Ordering Facility: [facility] Address: [address] [place] [address] Performed By: #### 7 3752-8 #### [facility] CLIA [id number] [facility] [place] [address] [place] CREATININEon 07-11-2022 Creatinine [Mass/Vol] 2.09 mg/dL Critically high 0.70-1.30 [facility] Comment on above: Performed By: #### C ADAM #### [facility] [address] [place] [address] [address] Aissatou Vásquez EGFR-AF MALDIVIAN 37 mL/min/1.73m2 Critically low >=60 [facility] Comment on above: Performed By: #### C ADAM #### [facility] [address] [place] [address] [address] Aissatou Vásquez EGFR-NON AF MALDIVIAN 30 mL/min/1.73m2 Critically low >=60 [facility] Comment on above: Performed By: #### C ADAM #### [facility] [address] [place] [address] [address] Aissatou Vásquez MRI BRAIN WO CONon [...] LEATHA GAVIRIA Date: 2022-07-11 15:11 Normal [facility] CULTURE BLOODon 07-10-2022 Microscopic examination of [...] Tetracycline S P Tobramycin S P Normal [facility] Comment on above: Performed By: #### B LDCX2 ####[facility] [address] [place] [address]Dr. Aissatou Vásquez CBC AUTO DIFFon 07-04-2022 BASO # 0.0 103/ul Normal 0.0-0.1 [facility] Comment on above: Performed By: #### L DHARA WAITE, HSTROPN #### [facility] [address] [place] [address] [address] Aissatou Vásquez Basophils/100 WBC (Bld) 0.3 % Normal 0.2-2.0 [facility] Comment on above: Performed By: #### L DHARA WAITE, HSTROPN #### [facility] [address] [place] [address] [address] Aissatou Vásquez EO # 0.0 103/ul Normal 0.0-0.7 [facility] Comment on above: Performed By: #### L DHARA WAITE, HSTROPN #### [facility] [address] [place] [address] [address] Aissatou Vásquez Eosinophils/100 WBC (Bld) 0.6 % Critically low 0.9-7.0 [facility] Comment on above: Performed By: #### L DHARA WAITE, HSTROPN #### [facility] [address] [place] [address] [address] Aissatou Vásquez Erythrocyte distribution width (RBC) [Ratio] 13.7 % Normal 11.0-15.0 [facility] Comment on above: Performed By: #### L DHARA WAITE, HSTROPN #### [facility] [address] [place] [address] [address] Aissatou Vásquez Hematocrit (Bld) [Volume fraction] 34.2 % Critically low 42.0-54.0 [facility] Comment on above: Performed By: #### L IVER, BMP, HSTROPN #### [facility] [address] [place] [address] Dr. Aissatou Vásquez Hemoglobin (Bld) [Mass/Vol] 10.7 g/dL Critically low 14.0-18.0 [facility] Comment on above: Performed By: #### L IVER, BMP, HSTROPN #### [facility] [address] [place] [address] Dr. Aissatou Vásquez IG # 0.02 10e3/ul Normal 0.00-0.03 [facility] Comment on above: Performed By: #### L IVER, BMP, HSTROPN #### [facility] [address] [place] [address] Dr. Aissatou Vásquez IG % 0.3 % Normal 0.0-0.5 [facility] Comment on above: Performed By: #### L IVER, BMP, HSTROPN #### [facility] [address] [place] [address] Dr. Aissatou Vásquez LYMPH # 1.7 103/ul Normal 1.2-3.8 [facility] Comment on above: Performed By: #### L IVER, BMP, HSTROPN #### [facility] [address] [place] [address] Dr. Aissatou Vásquez Lymphocytes/100 WBC (Bld) 25.6 % Normal 20.5-60.0 [facility] Comment on above: Performed By: #### L IVER, BMP, HSTROPN #### [facility] [address] [place] [address] Dr. Aissatou Vásquez MANUAL DIFF REQ NO Normal [facility] Comment on above: Performed By: #### L IVER, BMP, HSTROPN #### [facility] [address] [place] [address] Dr. Aissatou Vásquez MCH (RBC) [Entitic mass] 29.6 pg Normal 25.9-34.0 [facility] Comment on above: Performed By: #### L IVER, BMP, HSTROPN #### [facility] [facility] [address] [place] [address] Dr. Aissatou Vásquez MCHC (RBC) [Mass/Vol] 31.3 g/dL Normal 29.9-35.2 [facility] Comment on above: Performed By: #### L IVER, BMP, HSTROPN #### [facility] [address] [place] [address] Dr. Aissatou Vásquez MCV (RBC) [Entitic vol] 94.5 fL Critically high 80.0-94.0 [facility] Comment on above: Performed By: #### L IVER, BMP, HSTROPN #### [facility] [address] [place] [address] Dr. Aissatou Vásquez MONO # 0.7 103/ul Normal 0.3-0.8 [facility] Comment on above: Performed By: #### L IVER, BMP, HSTROPN #### [facility] [address] [place] [address] Dr. Aissatou Vásquez Monocytes/100 WBC (Bld) 11.2 % Normal 1.7-12.0 [facility] Comment on above: Performed By: #### L IVER, BMP, HSTROPN #### [facility] [address] [place] [address] Dr. Aissatou Vásquez NEUT # 4.0 103/ul Normal 1.4-6.5 [facility] Comment on above: Performed By: #### L IVER, BMP, HSTROPN #### [facility] [address] [place] [address] Dr. Aissatou Vásquez Neutrophils/100 WBC (Bld) 62.0 % Normal 43.0-75.0 [facility] Comment on above: Performed By: #### L IVER, BMP, HSTROPN #### [facility] [address] [place] [address] Dr. Aissatou Vásquez Platelet mean volume (Bld) [Entitic vol] 10.4 fL Normal 9.5-13.5 [facility] Comment on above: Performed By: #### L IVER, BMP, HSTROPN #### [facility] [address] [address] [address] Aissatou Vásquez PLT 134 103/ul Critically low 150-450 [facility] Comment on above: Performed By: #### L IVER, BMP, HSTROPN #### [facility] [address] [address] [address] Aissatou Vásquez RBC 3.62 106/ul Critically low 4.70-6.[address] [facility] Comment on above: Performed By: #### L IVER, BMP, HSTROPN #### [facility] [address] [address] [address] Aissatou Vásquez WBC 6.5 103/ul Normal 4.0-11.0 [facility] Comment on above: Performed By: #### L IVER, BMP, HSTROPN #### [facility] [address] [place] [address] Dr. Aissatou Vásquez CPKon 07-04-2022 CK [Catalytic activity/Vol] 149 U/L Normal 39-308 [facility] Comment on above: Performed By: #### L IVER, BMP, HSTROPN #### [facility] [address] [address] [address] Aissatou Vásquez MAGNESIUMon 07-04-2022 Magnesium [Mass/Vol] 1.7 mg/dL Critically low 1.8-2.4 [facility] Comment on above: Performed By: #### L IVER, BMP, HSTROPN #### [facility] [address] [address] [address] Aissatou Vásquez PHOSPHORUSon 07-04-2022 Phosphate [Mass/Vol] 3.6 mg/dL Normal 2.6-4.7 [facility] Comment on above: Performed By: #### L IVER, BMP, HSTROPN #### [facility] [address] [place] [address] Dr. Aissatou Vásquez PROF 14(COMP METB)on Albumin [Mass/Vol] 2.8 g/dL Critically low 3.4-5.0 [facility] Comment on above: Performed By: #### L IVER, BMP, HSTROPN #### [facility] [address] [address] [address] Aissatou Vásquez Albumin/Globulin [Mass ratio] 0.9 {ratio} Normal [facility] Comment on above: Performed By: #### L IVER, BMP, HSTROPN #### [facility] [address] [place] [address] Dr. Aissatou Vásquez ALP [Catalytic activity/Vol] 86 U/L Normal 46-116 [facility] Comment on above: Performed By: #### L IVER, BMP, HSTROPN #### [facility] [address] [place] [address] Dr. Aissatou Vásquez ALT [Catalytic activity/Vol] 50 U/L Normal 16-63 [facility] Comment on above: Performed By: #### L IVER, BMP, HSTROPN #### [facility] [address] [place] [address] Dr. Aissatou Vásquez Anion gap [Moles/Vol] 11.6 mmol/L Normal [facility] Comment on above: Performed By: #### L IVER, BMP, HSTROPN #### [facility] [address] [place] [address] Dr. Aissatou Vásquez AST [Catalytic activity/Vol] 41 U/L Critically high 15-37 [facility] Comment on above: Performed By: #### L IVER, BMP, HSTROPN #### [facility] [address] [place] [address] Dr. Aissatou Vásquez Bilirubin [Mass/Vol] 0.4 mg/dL Normal 0.2-1.0 [facility] Comment on above: Performed By: #### L IVER, BMP, HSTROPN #### [facility] [address] [place] [address] Dr. Aissatou Vásquez Calcium [Mass/Vol] 8.7 mg/dL Normal 8.5-10.1 [facility] Comment on above: Performed By: #### L IVER, BMP, HSTROPN #### [facility] [address] [place] [address] Dr. Aissatou Vásquez Chloride [Moles/Vol] 106 mmol/L Normal 98-107 [facility] Comment on above: Performed By: #### L IVER, BMP, HSTROPN #### [facility] [address] [place] [address] Dr. Aissatou Vásquez CO2 [Moles/Vol] 27.0 mmol/L Normal 21.0-32.0 [facility] Comment on above: Performed By: #### L IVER, BMP, HSTROPN #### [facility] [address] [place] [address] Dr. Aissatou Vásquez Creatinine [Mass/Vol] 1.99 mg/dL Critically high 0.70-1.30 [facility] Comment on above: Performed By: #### L IVER, BMP, HSTROPN #### [facility] [address] [place] [address] Dr. Aissatou Vásquez EGFR-AF MALDIVIAN 39 mL/min/1.73m2 Critically low >=60 [facility] Comment on above: Performed By: #### L IVER, BMP, HSTROPN #### [facility] [address] [place] [address] Dr. Aissatou Vásquez EGFR-NON AF MALDIVIAN 32 mL/min/1.73m2 Critically low >=60 [facility] Comment on above: Performed By: #### L IVER, BMP, HSTROPN #### [facility] [address] [place] [address] Dr. Aissatou Vásquez Globulin (S) [Mass/Vol] 3.1 g/dL Normal [facility] Comment on above: Performed By: #### L IVER, BMP, HSTROPN #### [facility] [address] [place] [address] Dr. Aissatou Vásquez Glucose [Mass/Vol] 93 mg/dL Normal 74-106 [facility] Comment on above: Performed By: #### L IVER, BMP, HSTROPN #### [facility] [address] [place] [address] Dr. Aissatou Vásquez Potassium [Moles/Vol] 4.6 mmol/L Normal 3.5-5.1 [facility] Comment on above: Performed By: #### L DHARA WAITE, HSTROPN #### [facility] [address] [address] [address] Aissatou Vásquez Protein [Mass/Vol] 5.9 g/dL Critically low 6.4-8.2 [facility] Comment on above: Performed By: #### L IVDHARA LANDRY, HSTROPN #### [facility] [address] [address] [address] Aissatou Vásquez Sodium [Moles/Vol] 140 mmol/L Normal 136-145 [facility] Comment on above: Performed By: #### L IVDHARA LANDRY, HSTROPN #### [facility] [address] [address] [address] Aissatou Vásquez Urea nitrogen [Mass/Vol] 50.0 mg/dL Critically high 7.0-18.0 [facility] Comment on above: Performed By: #### L IVDHARA LANDRY, HSTROPN #### [facility] [address] [address] [address] Aissatou Vásquez Urea nitrogen/Creatinine [Mass ratio] 25.1 mg/mg Normal [facility] Comment on above: Performed By: #### L DHARA WAITE, HSTROPN #### [facility] [address] [address] [address] Aissatou Vásquez PROTIMEon 07-04-2022 INR Coag (PPP) [Relative time] 1.05 {INR} Normal [facility] Comment on above: Performed By: #### C AADM #### [facility] [address] [address] [address] Aissatou Vásquez INR GUIDELINES SEE BELOW Normal [facility] Comment on above: Result Comment: ELISABETH RED INR: 2.0 - 3.0 CONDITIONS NOT LISTED BELOW 2.5 - 3.5 FOR PROSTHETIC HEART VALVE REPLACEMENT 2.5 - 3.5 RECURRENT THROMBOSIS Performed By: #### C ADAM #### [facility] [address] [place] [address] Dr. Aissatou Vásquez PT Coag (PPP) [Time] 11.3 s Normal 9.0-11.6 [facility] Comment on above: Performed By: #### C ADAM #### [facility] [address] [place] [address] Dr. Aissatou Vásquez CBC AUTO DIFFon 07-03-2022 BASO # 0.0 103/ul Normal 0.0-0.1 [facility] Comment on above: Performed By: #### L IVER, BMP, HSTROPN #### [facility] [address] [place] [address] Dr. Aissatou Vásquez Basophils/100 WBC (Bld) 0.3 % Normal 0.2-2.0 [facility] Comment on above: Performed By: #### L IVER, BMP, HSTROPN #### [facility] [address] [place] [address] Dr. Aissatou Vásquez EO # 0.0 103/ul Normal 0.0-0.7 [facility] Comment on above: Performed By: #### L IVER, BMP, HSTROPN #### [facility] [address] [place] [address] Dr. Aissatou Vásquez Eosinophils/100 WBC (Bld) 0.3 % Critically low 0.9-7.0 [facility] Comment on above: Performed By: #### L IVER, BMP, HSTROPN #### [facility] [address] [place] [address] Dr. Aissatou Vásquez Erythrocyte distribution width (RBC) [Ratio] 13.8 % Normal 11.0-15.0 [facility] Comment on above: Performed By: #### L IVER, BMP, HSTROPN #### [facility] [address] [place] [address] Dr. Aissatou Vásquez Hematocrit (Bld) [Volume fraction] 31.7 % Critically low 42.0-54.0 [facility] Comment on above: Performed By: #### L IVER, BMP, HSTROPN #### [facility] [address] [place] [address] Dr. Aissatou Vásquez Hemoglobin (Bld) [Mass/Vol] 10.2 g/dL Critically low 14.0-18.0 [facility] Comment on above: Performed By: #### L IVER, BMP, HSTROPN #### [facility] [address] [address] [address] Aissatou Vásquez IG # 0.02 10e3/ul Normal 0.00-0.03 [facility] Comment on above: Performed By: #### L IVER, BMP, HSTROPN #### [facility] [address] [place] [address] Dr. Aissatou Vásquez IG % 0.3 % Normal 0.0-0.5 [facility] Comment on above: Performed By: #### L IVER, BMP, HSTROPN #### [facility] [address] [place] [address] Dr. Aissatou Vásquez LYMPH # 1.5 103/ul Normal 1.2-3.8 [facility] Comment on above: Performed By: #### L IVER, BMP, HSTROPN #### [facility] [address] [place] [address] Dr. Aissatou Vásquez Lymphocytes/100 WBC (Bld) 20.3 % Critically low 20.5-60.0 [facility] Comment on above: Performed By: #### L IVER, BMP, HSTROPN #### [facility] [address] [place] [address] Dr. Aissatou Vásquez MANUAL DIFF REQ NO Normal [facility] Comment on above: Performed By: #### L IVER, BMP, HSTROPN #### [facility] [address] [place] [address] Dr. Aissatou Vásquez MCH (RBC) [Entitic mass] 30.3 pg Normal 25.9-34.0 [facility] Comment on above: Performed By: #### L IVER, BMP, HSTROPN #### [facility] [address] [place] [address] Dr. Aissatou Vásquez MCHC (RBC) [Mass/Vol] 32.2 g/dL Normal 29.9-35.2 [facility] Comment on above: Performed By: #### L IVER, BMP, HSTROPN #### [facility] [address] [place] [address] Dr. Aissatou Vásquez MCV (RBC) [Entitic vol] 94.1 fL Critically high 80.0-94.0 [facility] Comment on above: Performed By: #### L IVER, BMP, HSTROPN #### [facility] [address] [place] [address] Dr. Aissatou Vásquez MONO # 0.7 103/ul Normal 0.3-0.8 [facility] Comment on above: Performed By: #### L IVER, BMP, HSTROPN #### [facility] [address] [place] [address] Dr. Aissatou Vásquez Monocytes/100 WBC (Bld) 9.9 % Normal 1.7-12.0 [facility] Comment on above: Performed By: #### L IVER, BMP, HSTROPN #### [facility] [address] [place] [address] Dr. Aissatou Vásquez NEUT # 4.9 103/ul Normal 1.4-6.5 [facility] Comment on above: Performed By: #### L IVER, BMP, HSTROPN #### [facility] [address] [place] [address] Dr. Aissatou Vásquez Neutrophils/100 WBC (Bld) 68.9 % Normal 43.0-75.0 [facility] Comment on above: Performed By: #### L IVER, BMP, HSTROPN #### [facility] [address] [place] [address] Dr. Aissatou Vásquez Platelet mean volume (Bld) [Entitic vol] 10.7 fL Normal 9.5-13.5 [facility] Comment on above: Performed By: #### L IVER, BMP, HSTROPN #### [facility] [address] [place] [address] Dr. Aissatou Vásquez PLT 141 103/ul Critically low 150-450 [facility] Comment on above: Performed By: #### L IVER, BMP, HSTROPN #### [facility] [address] [address] [address] Aissatou Vásquez RBC 3.37 106/ul Critically low 4.70-6.[address] [facility] Comment on above: Performed By: #### L IVER, BMP, HSTROPN #### [facility] [address] [address] [address] Aissatou Vásquez WBC 7.1 103/ul Normal 4.0-11.0 [facility] Comment on above: Performed By: #### L IVER, BMP, HSTROPN #### [facility] [address] [address] [address] Aissatou Vásquez CPKon 07-03-2022 CK [Catalytic activity/Vol] 331 U/L Critically high 39-308 [facility] Comment on above: Performed By: #### L IVER, BMP, HSTROPN #### [facility] [address] [address] [address] Aissatou Vásquez CT ABD/PELVIS WO CONon [...] STEPHEN ROUSE Date: 2022-07-03 11:06 Normal [facility] CULTURE BLOODon 07-03-2022 Microscopic examination of blood, culture Culture Observations: NO GROWTH AT 5 DAYS. Normal [facility] Comment on above: Performed By: #### B LDCX2 ####[facility] [id number] [address]Dr. Aissatou Vásquez Microscopic examination of blood, culture Culture Observations: NO GROWTH AT 5 DAYS. Normal [facility] Comment on above: Performed By: #### B LDCX1 ####[facility] [address] [address]Dr. Aissatou Vásquez MAGNESIUMon 07-03-2022 Magnesium [Mass/Vol] 1.8 mg/dL Normal 1.8-2.4 [facility] Comment on above: Performed By: #### DHARA KONG HSTROPN #### [facility] [address] [address] [address] Aissatou Vásquez PHOSPHORUSon 07-03-2022 Phosphate [Mass/Vol] 4.0 mg/dL Normal 2.6-4.7 [facility] Comment on above: Performed By: #### DHARA KONG HSTROPN #### [facility] [address] [address] [address] Aissatou Vásquez POINT OF CARE GLUCOSEon 06-06 Glucose [Mass/Vol] 77 mg/dL Normal 74-106 [facility] Comment on above: Performed By: #### Soni ADAM #### [facility] [address] [address] [address] Aissatou Vásquez PROF 14(COMP METB)on 022 Albumin [Mass/Vol] 2.6 g/dL Critically low 3.4-5.0 [facility] Comment on above: Performed By: #### L IVER, BMP, HSTROPN #### [facility] [address] [address] [address] Aissatou Vásquez Albumin/Globulin [Mass ratio] 0.9 {ratio} Normal [facility] Comment on above: Performed By: #### L IVER, BMP, HSTROPN #### [facility] [address] [address] [address] Aissatou Vásquez ALP [Catalytic activity/Vol] 81 U/L Normal 46-116 [facility] Comment on above: Performed By: #### L IVER, BMP, HSTROPN #### [facility] [address] [place] [address] Dr. Aissatou Vásquez ALT [Catalytic activity/Vol] 46 U/L Normal 16-63 [facility] Comment on above: Performed By: #### L IVER, BMP, HSTROPN #### [facility] [address] [place] [address] Dr. Aissatou Vásquez Anion gap [Moles/Vol] 11.9 mmol/L Normal [facility] Comment on above: Performed By: #### L IVER, BMP, HSTROPN #### [facility] [address] [place] [address] Dr. Aissatou Vásquez AST [Catalytic activity/Vol] 45 U/L Critically high 15-37 [facility] Comment on above: Performed By: #### L IVER, BMP, HSTROPN #### [facility] [address] [address] [address] Aissatou Vásquez Bilirubin [Mass/Vol] 0.2 mg/dL Normal 0.2-1.0 [facility] Comment on above: Performed By: #### L IVER, BMP, HSTROPN #### [facility] [address] [place] [address] Dr. Aissatou Vásquez Calcium [Mass/Vol] 8.5 mg/dL Normal 8.5-10.1 [facility] Comment on above: Performed By: #### L IVER, BMP, HSTROPN #### [facility] [address] [address] [address] Aissatou Vásquez Chloride [Moles/Vol] 108 mmol/L Critically high 98-107 [facility] Comment on above: Performed By: #### L IVER, BMP, HSTROPN #### [facility] [address] [address] [address] Aissatou Vásquez CO2 [Moles/Vol] 25.9 mmol/L Normal 21.0-32.0 [facility] Comment on above: Performed By: #### L IVER, BMP, HSTROPN #### [facility] [address] [place] [address] Dr. Aissatou Vásquez Creatinine [Mass/Vol] 2.34 mg/dL Critically high 0.70-1.30 [facility] Comment on above: Performed By: #### L IVER, BMP, HSTROPN #### [facility] [address] [place] [address] Dr. Aissatou Vásquez EGFR-AF MALDIVIAN 32 mL/min/1.73m2 Critically low >=60 [facility] Comment on above: Performed By: #### L IVER, BMP, HSTROPN #### [facility] [address] [place] [address] Dr. Aissatou Vásquez EGFR-NON AF MALDIVIAN 27 mL/min/1.73m2 Critically low >=60 [facility] Comment on above: Performed By: #### L IVER, BMP, HSTROPN #### [facility] [address] [address] [address] Aissatou Vásquez Globulin (S) [Mass/Vol] 3.0 g/dL Normal [facility] Comment on above: Performed By: #### L IVER, BMP, HSTROPN #### [facility] [address] [place] [address] Dr. Aissatou Vásquez Glucose [Mass/Vol] 93 mg/dL Normal 74-106 [facility] Comment on above: Performed By: #### L IVER, BMP, HSTROPN #### [facility] [address] [place] [address] Dr. Aissatou Vásquez Potassium [Moles/Vol] 4.8 mmol/L Normal 3.5-5.1 [facility] Comment on above: Performed By: #### L IVDHARA LANDRY, HSTROPN #### [facility] [address] [address] [address] Aissatou Vásquez Protein [Mass/Vol] 5.6 g/dL Critically low 6.4-8.2 [facility] Comment on above: Performed By: #### L IVFRANTZ BMP, HSTROPN #### [facility] [address] [address] [address] Aissatou Vásquez Sodium [Moles/Vol] 141 mmol/L Normal 136-145 [facility] Comment on above: Performed By: #### L IVFRANTZ BMP, HSTROPN #### [facility] [address] [place] [address] Dr. Aissatou Vásquez Urea nitrogen [Mass/Vol] 61.0 mg/dL Critically high 7.0-18.0 [facility] Comment on above: Performed By: #### L IVDHARA LANDRY, HSTROPN #### [facility] [address] [place] [address] Dr. Aissatou Vásquez Urea nitrogen/Creatinine [Mass ratio] 26.1 mg/mg Normal [facility] Comment on above: Performed By: #### L IVDHARA LANDRY, HSTROPN #### [facility] [address] [place] [address] Dr. Aissatou Vásquez PROTIMEon 07-03-2022 INR Coag (PPP) [Relative time] 1.12 {INR} Normal [facility] Comment on above: Performed By: #### C ADAM #### [facility] [address] [place] [address] Dr. Aissatou Vásquez INR GUIDELINES SEE BELOW Normal [facility] Comment on above: Result Comment: ELISABETH RED INR: 2.0 - 3.0 CONDITIONS NOT LISTED BELOW 2.5 - 3.5 FOR PROSTHETIC HEART VALVE REPLACEMENT 2.5 - 3.5 RECURRENT THROMBOSIS Performed By: #### C ADAM #### [facility] [address] [address] [address] Aissatou Vásquez PT Coag (PPP) [Time] 12.0 s Critically high 9.0-11.6 [facility] Comment on above: Performed By: #### C ADAM #### [facility] [address] [address] [address] Aissatou Vásquez CBC AUTO DIFFon 07-02-2022 BASO # 0.0 103/ul Normal 0.0-0.1 [facility] Comment on above: Performed By: #### C BC ####[facility] [address] [address]DrBud Vásquez Basophils/100 WBC (Bld) 0.1 % Critically low 0.2-2.0 [facility] Comment on above: Performed By: #### C BC ####[facility] [id number] [place], [place] [address]Dr. Aissatou Vásquez EO # 0.0 103/ul Normal 0.0-0.7 [facility] Comment on above: Performed By: #### C BC ####[facility] [address] [address]Dr. Aissatou Vásquez Eosinophils/100 WBC (Bld) 0.0 % Critically low 0.9-7.0 [facility] Comment on above: Performed By: #### C BC ####[facility] [address] [place], [place] [address]DrBud Vásquez Erythrocyte distribution width (RBC) [Ratio] 13.4 % Normal 11.0-15.0 [facility] Comment on above: Performed By: #### C BC ####[facility] [id number] [place], [place] [address]Dr. Aissatou Vásquez Hematocrit (Bld) [Volume fraction] 39.9 % Critically low 42.0-54.0 [facility] Comment on above: Performed By: #### C BC ####[facility] [id number] [place], [place] [address]DrBud Vásquez Hemoglobin (Bld) [Mass/Vol] 12.8 g/dL Critically low 14.0-18.0 [facility] Comment on above: Performed By: #### C BC ####[facility] [id number] [id number] Sheysarah Vásquez IG # 0.05 10e3/ul Critically high 0.00-0.03 [facility] Comment on above: Performed By: #### C BC ####[facility] [address] [id number][address] Aissatou Vásquez IG % 0.4 % Normal 0.0-0.5 [facility] Comment on above: Performed By: #### C BC ####[facility] [address] [address]Dr. Aissatou Vásquez LYMPH # 0.8 103/ul Critically low 1.2-3.8 [facility] Comment on above: Performed By: #### C BC ####[facility] [address] [address]Dr. Aissatou Vásquez Lymphocytes/100 WBC (Bld) 7.2 % Critically low 20.5-60.0 [facility] Comment on above: Performed By: #### C BC ####[facility] [address] [address]Dr. Aissatou Vásquez MANUAL DIFF REQ NO Normal [facility] Comment on above: Performed By: #### C BC ####[facility] [id number] [place] [id number]. Aissatou Vásquez MCH (RBC) [Entitic mass] 30.0 pg Normal 25.9-34.0 [facility] Comment on above: Performed By: #### C BC ####[facility] [address] [place] [id number]. Aissatou Vásquez MCHC (RBC) [Mass/Vol] 32.1 g/dL Normal 29.9-35.2 [facility] Comment on above: Performed By: #### C BC ####[facility] [address] [place] [address]Dr. Aissatou Vásquez MCV (RBC) [Entitic vol] 93.7 fL Normal 80.0-94.0 [facility] Comment on above: Performed By: #### C BC ####[facility] Erhs[address] [place] [id number]. Aissatou Vásquez MONO # 0.8 103/ul Normal 0.3-0.8 [facility] Comment on above: Performed By: #### C BC ####[facility] Z[address]75 [place] [id number]. Aissatou Vásquez Monocytes/100 WBC (Bld) 6.8 % Normal 1.7-12.0 [facility] Comment on above: Performed By: #### C BC ####[facility] [address] [place] [id number]. Aissatou Vásquez NEUT # 9.8 103/ul Critically high 1.4-6.5 [facility] Comment on above: Performed By: #### C BC ####[facility] [address] [place] [address]Dr. Aissatou Vásquez Neutrophils/100 WBC (Bld) 85.5 % Critically high 43.0-75.0 [facility] Comment on above: Performed By: #### C BC ####[facility] [address] [place] [id number]. Aissatou Vásquez Platelet mean volume (Bld) [Entitic vol] 10.8 fL Normal 9.5-13.5 [facility] Comment on above: Performed By: #### C BC ####[facility] Rzhcl[address] [place] [id number]. Aissatou Vásquez PLT 170 103/ul Normal 150-450 [facility] Comment on above: Performed By: #### C BC ####[facility] [address] [place] [id number]. Aissatou Vásquez RBC 4.26 106/ul Critically low 4.70-6.10 [facility] Comment on above: Performed By: #### C BC ####[facility] Qktippcfva[address]70 [place] [id number]. Aissatou Vásquez WBC 11.4 103/ul Critically high 4.0-11.0 [facility] Comment on above: Performed By: #### C BC ####[facility] [address] [place], [place] [address]IcDr. Aissatou Vásquez CKMBon 07-02-2022 CK.MB [Mass/Vol] 80.91 ng/mL Critically high <=3.60 Th e [facility] Comment on above: Performed By: #### L IVER, BMP, HSTROPN #### [facility] [address] [place], [place] [address] Dr. Aissatou Vásquez CPKon 07-02-2022 CK [Catalytic activity/Vol] 915 U/L Critically high 39-308 [facility] Comment on above: Performed By: #### L IVER, BMP, HSTROPN #### [facility] [address] [place], [place] [address] Dr. Aissatou Vásquez ECHOCARDIO M/2D COMPLETEon 1 09-02-2021 ECHOCARDIO M/2D COMPLETE Patient: LEANNA NELSON Exam Date: 07/02/2022 : 1940 Gender:M Ordering : SHAIKH Delphine RODRIGUEZ . Admission #: [id number] Family : DR PIPE HOPKINS . Order #: [id number] CLICK HERE TO VIEW EXAM ECHOCARDIOGRAM REPORT [...] Cameron M.D. on 07/08/2022 at 09:55 Normal [facility] MAGNESIUMon 07-02-2022 Magnesium [Mass/Vol] 1.9 mg/dL Normal 1.8-2.4 [facility] Comment on above: Performed By: #### L DHARA WAITE, HSTROPN #### [facility] [address] [place] [address] [address] Aissatou Vásquez MYOGLOBINon 07-02-2022 SARAH 1312 ng/mL Critically high 16-[address] [facility] Comment on above: Performed By: #### L DHARA WAITE, HSTROPN #### [facility] [address] [place] [address] [address] Aissatou Vásquez PHOSPHORUSon 07-02-2022 Phosphate [Mass/Vol] 6.0 mg/dL Critically high 2.6-4.7 [facility] Comment on above: Performed By: #### L DHARA WAITE, HSTROPN #### [facility] [address] [place] [address] [address] Aissatou Vásquez POINT OF CARE GLUCOSEon 06-06 Glucose [Mass/Vol] 78 mg/dL Normal 74-106 [facility] Comment on above: Performed By: #### C ADAM #### [facility] [address] [place] [address] [address] Aissatou Vásquez Glucose [Mass/Vol] 104 mg/dL Normal 74-106 [facility] Comment on above: Performed By: #### P OCGLUC ####[facility] [address] [place] [address]Dr. Aissatou Vásquez Glucose [Mass/Vol] 83 mg/dL Normal 74-106 [facility] Comment on above: Performed By: #### L IVER, BMP, HSTROPN #### [facility] [address] [place] [address] [address] Aissatou Vásquez Glucose [Mass/Vol] 100 mg/dL Normal 74-106 [facility] Comment on above: Performed By: #### C ADAM #### [facility] [address] [place] [address] [address] Aissatou Vásquez Glucose [Mass/Vol] 73 mg/dL Critically low 74-106 [facility] Comment on above: Performed By: #### P OCGLUC ####[facility] Rpixwmrgcp[address] [place] [address]Dr. Aissatou Vásquez PROF 14(COMP METB)on 022 Albumin [Mass/Vol] 3.3 g/dL Critically low 3.4-5.0 [facility] Comment on above: Performed By: #### L IVER, BMP, HSTROPN #### [facility] [address] [place] [address] [address] Aissatou Vásquez Albumin/Globulin [Mass ratio] 1.0 {ratio} Normal [facility] Comment on above: Performed By: #### L IVER, BMP, HSTROPN #### [facility] [address] [place] [address] [address] Aissatou Vásquez ALP [Catalytic activity/Vol] 114 U/L Normal 46-116 [facility] Comment on above: Performed By: #### L IVER, BMP, HSTROPN #### [facility] [address] [place] [address] [address] Aissatou Vásquez ALT [Catalytic activity/Vol] 48 U/L Normal 16-63 [facility] Comment on above: Performed By: #### L IVER, BMP, HSTROPN #### [facility] [address] [place] [address] [address] Aissatou Vásquez Anion gap [Moles/Vol] 17.3 mmol/L Normal [facility] Comment on above: Performed By: #### L IVER, BMP, HSTROPN #### [facility] [address] [place] [address] Dr. Aissatou Vásquez AST [Catalytic activity/Vol] 68 U/L Critically high 15-37 [facility] Comment on above: Performed By: #### L IVER, BMP, HSTROPN #### [facility] [address] [place] [address] [address] Aissatou Vásquez Bilirubin [Mass/Vol] 0.5 mg/dL Normal 0.2-1.0 [facility] Comment on above: Performed By: #### L IVER, BMP, HSTROPN #### [facility] [address] [place] [address] Dr. Aissatou Vásquez Calcium [Mass/Vol] 8.9 mg/dL Normal 8.5-10.1 [facility] Comment on above: Performed By: #### L IVER, BMP, HSTROPN #### [facility] [address] [place] [address] Dr. Aissatou Vásquez Chloride [Moles/Vol] 109 mmol/L Critically high 98-107 [facility] Comment on above: Performed By: #### L IVER, BMP, HSTROPN #### [facility] [address] [place] [address] [address] Aissatou Vásquez CO2 [Moles/Vol] 22.8 mmol/L Normal 21.0-32.0 [facility] Comment on above: Performed By: #### L IVER, BMP, HSTROPN #### [facility] [address] [place] [address] Dr. Aissatou Vásquez Creatinine [Mass/Vol] 1.89 mg/dL Critically high 0.70-1.30 [facility] Comment on above: Performed By: #### L IVER, BMP, HSTROPN #### [facility] [address] [place] [address] Dr. Aissatou Vásquez EGFR-AF MALDIVIAN 41 mL/min/1.73m2 Critically low >=60 [facility] Comment on above: Result Comment: Prev iously reported as: (blank) On 07/02/2022 05:50 By KD3 Performed By: #### L IVER, BMP, HSTROPN #### [facility] [address] [place] [address] [address] Aissatou Vásquez EGFR-NON AF MALDIVIAN 34 mL/min/1.73m2 Critically low >=60 [facility] Comment on above: Result Comment: Prev iously reported as: (blank) On 07/02/2022 05:50 By KD3 Performed By: #### L IVER, BMP, HSTROPN #### [facility] [address] [place] [address] [address] Aissatou Vásquez Globulin (S) [Mass/Vol] 3.4 g/dL Normal [facility] Comment on above: Performed By: #### L IVER, BMP, HSTROPN #### [facility] [address] [place] [address] Dr. Aissatou Vásquez Glucose [Mass/Vol] 86 mg/dL Normal 74-106 [facility] Comment on above: Performed By: #### L IVER, BMP, HSTROPN #### [facility] [address] [place] [address] Dr. Aissatou Vásquez Potassium [Moles/Vol] 5.1 mmol/L Normal 3.5-5.1 [facility] Comment on above: Performed By: #### L IVER, BMP, HSTROPN #### [facility] [address] [place] [address] [address] Aissatou Vásquez Protein [Mass/Vol] 6.7 g/dL Normal 6.4-8.2 [facility] Comment on above: Performed By: #### L IVER, BMP, HSTROPN #### [facility] [address] [place] [address] [address] Aissatou Vásquez Sodium [Moles/Vol] 144 mmol/L Normal 136-145 [facility] Comment on above: Performed By: #### L IVER, BMP, HSTROPN #### [facility] [address] [place] [address] Dr. Aissatou Vásquez Urea nitrogen [Mass/Vol] 55.0 mg/dL Critically high 7.0-18.0 [facility] Comment on above: Performed By: #### L IVER, BMP, HSTROPN #### [facility] [address] [place] [address] [address] Aissatou Vásquez Urea nitrogen/Creatinine [Mass ratio] 29.1 mg/mg Normal [facility] Comment on above: Performed By: #### L IVER, BMP, HSTROPN #### [facility] [address] [place] [address] [address] Aissatou Vásquez PROTIMEon 07-02-2022 INR Coag (PPP) [Relative time] 1.13 {INR} Normal [facility] Comment on above: Performed By: #### L IVER, BMP, HSTROPN #### [facility] [address] [place] [address] Dr. Aissatou Vásquez INR GUIDELINES SEE BELOW Normal [facility] Comment on above: Result Comment: ELISABETH RED INR: 2.0 - 3.0 CONDITIONS NOT LISTED BELOW 2.5 - 3.5 FOR PROSTHETIC HEART VALVE REPLACEMENT 2.5 - 3.5 RECURRENT THROMBOSIS Performed By: #### L IVER, BMP, HSTROPN #### [facility] [address] [place] [address] Dr. Aissatou Vásquez PT Coag (PPP) [Time] 12.1 s Critically high 9.0-11.6 [facility] Comment on above: Performed By: #### L IVER, BMP, HSTROPN #### [facility] [address] [place] [address] Dr. Aissatou Vásquez BLOOD CULTURE ID PANELon A. baumannii Not detected Normal NOT DETECTED [facility] Comment on above: Performed By: #### C ADAM #### [facility] [address] [place] [address] Dr. Aissatou Vásquez Bacteriodes fragilis Not detected Normal NOT DETECTED [facility] Comment on above: Performed By: #### C ADAM #### [facility] [address] [place] [address] Dr. Aissatou Vásquez BCID CONTROLS PASSED Normal [facility] Comment on above: Performed By: #### C ADAM #### [facility] [address] [place] [address] Dr. Aissatou Vásquez BCIDBTHD BLOOD CULTURE BOTTLE INFORMATION [facility] Comment on above: Performed By: #### C ADAM #### [facility] [address] [place] [address] Dr. Aissatou Vásquez BCIDHD1 ANTIMICROBIAL RESISTANCE GENES [facility] Comment on above: Performed By: #### C ADAM #### [facility] [address] [place] [address] Dr. Aissatou Vásquez BCIDHD2 SEE BELOW [facility] Comment on above: Result Comment: Note : Antimicrobial resitance can occur via multiple mechanisms. A Not Detected result for the [employer] antomicrobial resistance gene assays does not indicate antimicrobial susceptibility. Subculturing is required for species identification and susceptibility testing of isolates. Performed By: #### C ADAM #### [facility] [address] [place] [address] Dr. Aissatou Vásquez BCIDHD3 Positive [facility] Comment on above: Performed By: #### C ADAM #### [facility] [address] [place] [address] Dr. Aissatou Vásquez BCIDHD4 Negative [facility] Comment on above: Performed By: #### C ADAM #### [facility] [address] [place] [address] Dr. Aissatou Vásquez BCIDHD5 YEAST Normal [facility] Comment on above: Performed By: #### C ADAM #### [facility] [address] [place] [address] Dr. Aissatou Vásquez Bottle Set: Set 2 [facility] Comment on above: Performed By: #### C ADAM #### [facility] [address] [place] [address] Dr. Aissatou Vásquez Bottle: Pediatric Normal [facility] Comment on above: Performed By: #### C ADAM #### [facility] [address] [place] [address] Dr. Aissatou Vásquez C. neoformans/gattii Not detected Normal NOT DETECTED [facility] Comment on above: Performed By: #### C ADAM #### [facility] [address] [place] [address] Dr. Aissatou Vásquez Soraya albicans Not detected Normal NOT DETECTED [facility] Comment on above: Performed By: #### C ADAM #### [facility] [address] [place] [address] [address] Aissatou Vásquez Soraya auris Not detected Normal NOT DETECTED [facility] Comment on above: Performed By: #### C ADAM #### [facility] [address] [place] [address] Dr. Aissatou Vásquez Soraya glabrata Not detected Normal NOT DETECTED [facility] Comment on above: Performed By: #### C ADAM #### [facility] [address] [place] [address] Dr. Aissatou Vásquez Soraya Krusei Not detected Normal NOT DETECTED [facility] Comment on above: Performed By: #### C ADAM #### [facility] [address] [place] [address] Dr. Aissatou Vásquez Soraya Parapsilosis Not detected Normal NOT DETECTED [facility] Comment on above: Performed By: #### C ADAM #### [facility] [address] [place] [address] Dr. Aissatou Vásquez Soraya Tropicalis Not detected Normal NOT DETECTED [facility] Comment on above: Performed By: #### C ADAM #### [facility] [address] [place] [address] Dr. Aissatou Vásquez CTX-M Resistant Gene Not detected Normal NOT DETECTED [facility] Comment on above: Performed By: #### C ADAM #### [facility] [address] [place] [address] Dr. Aissatou Vásquez E. Cloacae complex Not detected Normal NOT DETECTED [facility] Comment on above: Performed By: #### C ADAM #### [facility] [address] [place] [address] Dr. Aissatou Vásquez E. faecalis Not detected Normal NOT DETECTED [facility] Comment on above: Performed By: #### C ADAM #### [facility] [address] [place] [address] Dr. Aissatou Vásquez E. faecium Not detected Normal NOT DETECTED [facility] Comment on above: Performed By: #### C ADAM #### [facility] [address] [place] [address] Dr. Aissatou Vásquez Enterobacteriaceae Detected Critically abnormal NOT DETECTED [facility] Comment on above: Performed By: #### C ADAM #### [facility] [address] [place] [address] Dr. Aissatou Vásquez Escherichia coli Not detected Normal NOT DETECTED [facility] Comment on above: Performed By: #### C ADAM #### [facility] [address] [place] [address] Dr. Aissatou Váqsuez H. influenzae Not detected Normal NOT DETECTED [facility] Comment on above: Performed By: #### C ADAM #### [facility] [address] [place] [address] Dr. Aissatou Vásquez IMP Resistant Gene Not detected Normal NOT DETECTED [facility] Comment on above: Performed By: #### C ADAM #### [facility] [address] [place] [address] Dr. Aissatou Vásquez K. oxytoca Not detected Normal NOT DETECTED [facility] Comment on above: Performed By: #### C ADAM #### [facility] [address] [place] [address] Dr. Aissatou Vásquez K. pneumoniae Not detected Normal NOT DETECTED [facility] Comment on above: Performed By: #### C ADAM #### [facility] [address] [place] [address] Dr. Aissatou Vásquez Klebsiella aerogenes Not detected Normal NOT DETECTED [facility] Comment on above: Performed By: #### C ADAM #### [facility] [address] [place] [address] Dr. Aissatou Vásquez KPC Resistant Gene Not detected Normal NOT DETECTED [facility] Comment on above: Performed By: #### C ADAM #### [facility] [address] [place] [address] Dr. Aissatou Vásquez List. monocytogenes Not detected Normal NOT DETECTED [facility] Comment on above: Performed By: #### C ADAM #### [facility] [address] [place] [address] Dr. Aissatou Vásquez Mcr-1 Resistant Gene Not Applicable Normal NOT DETECTE D [facility] Comment on above: Performed By: #### C ADAM #### [facility] [address] [place] [address] Dr. Aissatou Vásquez mecA/C Not Applicable Normal NOT DETECTED [facility] Comment on above: Performed By: #### C ADAM #### [facility] [address] [place] [address] Dr. Aissatou Vásquez mecA/C MREJ Not Applicable Normal NOT DETECTED [facility] Comment on above: Performed By: #### C ADAM #### [facility] [address] [place] [address] Dr. Aissatou Vásquez N. meningitidis Not detected Normal NOT DETECTED [facility] Comment on above: Performed By: #### C ADAM #### [facility] [address] [place] [address] Dr. Aissatou Vásquez NDM Resistant Gene Not detected Normal NOT DETECTED [facility] Comment on above: Performed By: #### C ADAM #### [facility] [address] [place] [address] Dr. Aissatou Vásquez Oxa-48-like Not detected Normal NOT DETECTED [facility] Comment on above: Performed By: #### C ADAM #### [facility] [address] [place] [address] Dr. Aissatou Vásquez Proteus Not detected Normal NOT DETECTED [facility] Comment on above: Performed By: #### C ADAM #### [facility] [address] [place] [address] Dr. Aissatou Vásquez Pseud. aeruginosa Not detected Normal NOT DETECTED [facility] Comment on above: Performed By: #### C ADAM #### [facility] [address] [place] [address] Dr. Aissatou Vásquez S. maltophilia Not detected Normal NOT DETECTED [facility] Comment on above: Performed By: #### C ADAM #### [facility] [address] [place] [address] Dr. Aissatou Vásquez Salmonella Not detected Normal NOT DETECTED [facility] Comment on above: Performed By: #### C ADAM #### [facility] [address] [place] [address] [address] Aissatou Vásquez Seratia marcescens Not detected Normal NOT DETECTED [facility] Comment on above: Performed By: #### C ADAM #### [facility] [address] [place] [address] Dr. Aissatou Vásquez Site: IV Normal [facility] Comment on above: Performed By: #### C ADAM #### [facility] [address] [place] [address] Dr. Aissatou Vásquez Staph. aureus Not detected Normal NOT DETECTED [facility] Comment on above: Performed By: #### C ADAM #### [facility] [address] [place] [address] Dr. Aissatou Vásquez Staph. epidermidis Not detected Normal NOT DETECTED [facility] Comment on above: Performed By: #### C ADAM #### [facility] [address] [place] [address] Dr. Aissatou Vásquez Staph. lugdunensis Not detected Normal NOT DETECTED [facility] Comment on above: Performed By: #### C ADAM #### [facility] [address] [place] [address] Dr. Aissatou Vásquez Staphylococcus Not detected Normal NOT DETECTED [facility] Comment on above: Performed By: #### C ADAM #### [facility] [address] [place] [address] Dr. Aissatou Vásquez Strep. agalactiae Not detected Normal NOT DETECTED [facility] Comment on above: Performed By: #### C ADAM #### [facility] [address] [place] [address] Dr. Aissatou Vásquez Strep. pneumoniae Not detected Normal NOT DETECTED [facility] Comment on above: Performed By: #### C ADAM #### [facility] [address] [place] [address] Dr. Aissatou Vásquez Strep. pyogenes Not detected Normal NOT DETECTED [facility] Comment on above: Performed By: #### C ADAM #### [facility] [address] [place] [address] [address] Aissatou Vásquez Streptococcus Not detected Normal NOT DETECTED [facility] Comment on above: Performed By: #### C ADAM #### [facility] [address] [place] [address] [address] Aissatou Vásquez Akila/B Resist. Gene Not Applicable Normal NOT DETECTED [facility] Comment on above: Performed By: #### C ADAM #### [facility] [address] [place] [address] Dr. Aissatou Vásquez VIM Resistant Gene Not detected Normal NOT DETECTED [facility] Comment on above: Performed By: #### C ADAM #### [facility] [address] [place] [address] Dr. Aissatou Vásquez CBC W MANUAL DIFFon 07-01-20 22 ATYPICAL LYMPH # Normal [facility] Comment on above: Performed By: #### C BCMAN ####[facility] [id number] [place], [place] [address]Dr. Aissatou Vásquez ATYPICAL LYMPH % Normal [facility] Comment on above: Performed By: #### C BCMAN ####[facility] [address] [place], [place] [address]Dr. Aissatou Vásquez BAND # 0.4 103/ul Critically high 0.0-0.3 [facility] Comment on above: Performed By: #### C BCMAN ####[facility] [address] [place] [address]Dr. Sheylan Vásquez BAND % 3 % Normal 0-5 [facility] Comment on above: Performed By: #### C BCMAN ####[facility] [address] [place] [address]Dr. Aissatou Vásquez BASOM # 0.00 103/ul Normal 0.00-0.10 [facility] Comment on above: Performed By: #### C BCMAN ####[facility] Uaiogad[address] [place], [place] [address]Dr. Aissatou Vásquez BASOM % 0.0 % Critically low 0.2-2.0 The [facility] Comment on above: Performed By: #### C BCMAN ####[facility] [address] [place] [address]Dr. Aissatou Vásquez BLAST # Normal [facility] Comment on above: Performed By: #### C BCMAN ####[facility] [address] [place] [id number]. Aissatou Vásquez BLAST % Normal [facility] Comment on above: Performed By: #### C BCMAN ####[facility] Zwpbvdpxcn[address] [place] [id number]. Aissatou Vásquez CORRECTED WBC Normal 4.0-11.0 The [facility] Comment on above: Performed By: #### C BCMAN ####[facility] Tofgdxokvj[address] [place], [place] [address]Dr. Aissatou Vásquez EOS # 0.12 103/ul Normal 0.00-0.70 [facility] Comment on above: Performed By: #### C BCMAN ####[facility] [address]ab[address] [place] [address]Dr. Aissatou Vásquez EOS% 1.0 % Normal 0.9-7.0 The [facility] Comment on above: Performed By: #### C BCMAN ####[facility] Jlcct[address] [place], [place] [address]Dr. Aissatou Vásquez HCT 46.0 % Normal 42.0-54.0 The [facility] Comment on above: Performed By: #### C BCMAN ####[facility] [address]rsyew[address] [place] [address]Dr. Aissatou Vásquez HGB 14.6 g/dl Normal 14.0-18.0 The [facility] Comment on above: Performed By: #### C BCMAN ####[facility] Gmqjnq[address] [place], [place] [address]Dr. Aissatou Vásquez LYMPHM # 0.62 103/ul Critically low 1.20-3.80 The [facility] Comment on above: Performed By: #### C BCMAN ####[facility] [address] [place] [id number]. Aissatou Vásquez LYMPHM% 5.0 % Critically low 20.5-60.0 The [facility] Comment on above: Performed By: #### C ABUNDIO ####[facility] [address] [place] [id number]. Aissatou Vásquez MCH 29.9 pg Normal 25.9-34.0 The [facility] Comment on above: Performed By: #### C ABUNDIO ####[facility] Edwgfsgwso[address] [place] [address]Dr. Aissatou Vásquez MCHC 31.7 g/dl Normal 29.9-35.2 The [facility] Comment on above: Performed By: #### C ABUNDIO ####[facility] Icsie[address]osr[address] [place], [place] [address]Dr. Aissatou Vásquez MCV 94.1 fL Critically high 80.0-94.0 The [facility] Comment on above: Performed By: #### C ABUNDIO ####[facility] Nupxhe[address] [place], [place] [address]Dr. Aissatou Vásquez METAMYELOCYTE # Normal The [facility] Comment on above: Performed By: #### C ABUNDIO ####[facility] Nmdlnzyoix[address] [place], [place] [address]Dr. Aissatou Vásquez METAMYELOCYTE % Normal The [facility] Comment on above: Performed By: #### C ABUNDIO ####[facility] [address]knpkjntt[address] [place] [address]Dr. Aissatou Vásquez MONOM# 0.62 103/ul Normal 0.30-0.80 The [facility] Comment on above: Performed By: #### C ABUNDIO ####[facility] Rmlnmlsxjf[address] [place] [address]Dr. Aissatou Vásquez MONOM% 5.0 % Normal 1.7-12.0 The [facility] Comment on above: Performed By: #### C ABUNDIO ####[facility] [address]idewham[address] [place] [address]Dr. Aissatou Vásquez MPV 10.4 fL Normal 9.5-13.5 The [facility] Comment on above: Performed By: #### C BCRITCHIE ####[facility] [address]kpriwpo[address] [place], [place] [address]Pd. Aissatou Vásquez MYELOCYTE # Normal [facility] Comment on above: Performed By: #### C BCMAN ####[facility] Bugpebkkbl[address] [place], [place] [address]Tc. Aissatou Vásquez MYELOCYTE % Normal [facility] Comment on above: Performed By: #### C BCMAN ####[facility] [address]eof[address] [place], [place] [address]Gh. Aissatou Vásquez NRBC Normal [facility] Comment on above: Performed By: #### C ABUNDIO ####[facility] Zspiinxfoe[address] [place] [address]Dr. Aissatou Vásquez PLT 171 103/ul Normal 150-450 [facility] Comment on above: Performed By: #### C ABUNDIO ####[facility] Bnozte[address]ul[address] [place] [address]Dr. Aissatou Vásquez RBC 4.89 106/ul Normal 4.70-6.10 [facility] Comment on above: Performed By: #### C BCRITCHIE ####[facility] Wmcgvqiusq[address] [place] [address]Dr. Aissatou Vásquez RDW 13.4 % Normal 11.0-15.0 [facility] Comment on above: Performed By: #### C BCRITCHIE ####[facility] [address]jrcst[address]wh[address] [place] [address]Dr. Aissatou Vásquez SEG # 10.66 103/ul Critically high 1.40-6.50 [facility] Comment on above: Performed By: #### C BCRITCHIE ####[facility] Cnqbpflkcs[address] [place], [place] [address]Bo. Aissatou Vásquez SEG % 86.0 % Critically high 43.0-75.[address] [facility] Comment on above: Performed By: #### C BCRITCHIE ####[facility] Swi[address]dufvw[address] [place], [place] [address]In. Aissatou Vásquez WBC 12.4 103/ul Critically high 4.0-11.0 [facility] Comment on above: Performed By: #### C ABUNDIO ####[facility] Dgqidewlyb37[address] [place], [place] [address]OcDr. Aissatou Vásquez CPKon 07-01-2022 CK [Catalytic activity/Vol] 1646 U/L Critically high 39-308 The [facility] Comment on above: Performed By: #### L IVER, BMP, HSTROPN #### [facility] [address] [place], [place] [address] [address]ou Vásquez [address] CSPINE WO CONon [...] KOKO ROMANO Date: 2022-07-01 19:22 Normal The [facility] CT STROKE HEAD WOon 07-01-20 22 [...] BERNADETTE BEDOLLA Date: 2022-07-01 17:37 Normal [facility] CULTURE BLOODon 07-01-2022 Microscopic examination of blood, culture Culture Observations: NO GROWTH AT 5 DAYS. Normal The [facility] Comment on above: Performed By: #### B LDCX1 ####[facility] [address] [place] [address]Dr. Aissatou Fahad [facility]-06 SARS-CoV-2 (COVID-19) RNA HALLE+probe Ql (Unsp spec) Not detected Normal NOT DETECTED The [facility] Comment on above: Result Comment: When [...] for this test is supported by the [employer] of Health and Human Service's declaration that [...] longer be used). Performed By: #### L CHANNINGER, BMP, HSTROPN #### [facility] [address] [place] [address] Dr. Aissatou Vásquez DRUG SCREEN RAPID (URINE)on 07-01-2022 AMP Negative Normal NEGATIVE [facility] Comment on above: Performed By: #### C ADAM #### [facility] [address] [place] [address] [address] Aissatou Vásquez BAR Negative Normal NEGATIVE [facility] Comment on above: Performed By: #### C ADAM #### [facility] [address] [place] [address] Dr. Aissatou Vásquez BUP Negative Normal NEGATIVE [facility] Comment on above: Performed By: #### C ADAM #### [facility] [address] [place] [address] Dr. Aissatou Vásquez BZO Negative Normal NEGATIVE [facility] Comment on above: Performed By: #### C ADAM #### [facility] [address] [place] [address] [address] Aissatou Vásquez MARYJANE Negative Normal NEGATIVE [facility] Comment on above: Performed By: #### C ADAM #### [facility] [address] [place] [address] Dr. Aissatou Vásquez CUT-OFFS SEE BELOW Normal [facility] Comment on above: Result Comment: AMP [...] ng/mL Performed By: #### C ADAM #### [facility] [address] [place] [address] Dr. Aissatou Vásquez DRUG CUT HEADER DRUG CLASS TEST SYSTEM CUT-OFF CONCENTRATIONS ARE FOLLOWS: Normal [facility] Comment on above: Performed By: #### C ADAM #### [facility] [address] [place] [address] Dr. Aissatou Vásquez mAMP Negative Normal NEGATIVE [facility] Comment on above: Performed By: #### C ADAM #### [facility] [address] [place] [address] [address] Aissatou Vásquez MTD Negative Normal NEGATIVE [facility] Comment on above: Performed By: #### C ADAM #### [facility] [address] [place] [address] Dr. Aissatou Vásquez OPI Negative Normal NEGATIVE [facility] Comment on above: Performed By: #### C ADAM #### [facility] [address] [place] [address] Dr. Aissatou Vásquez OXY Negative Normal NEGATIVE [facility] Comment on above: Performed By: #### C ADAM #### [facility] [address] [place] [address] [address] Aissatou Vásquez PCP Negative Normal NEGATIVE [facility] Comment on above: Performed By: #### C ADAM #### [facility] [address] [place] [address] Dr. Aissatou Vásquez PPX Negative Normal NEGATIVE [facility] Comment on above: Performed By: #### C ADAM #### [facility] [address] [place] [address] Dr. Aissatou Vásquez TCA Negative Normal NEGATIVE [facility] Comment on above: Performed By: #### C ADAM #### [facility] [address] [place] [address] Dr. Aissatou Vásquez THC Negative Normal NEGATIVE [facility] Comment on above: Performed By: #### C ADAM #### [facility] [address] [place] [address] Dr. Aissatou Vásquez ER URINE PROFILEon 12-27-202 2 Bilirubin Ql (U) Negative Normal NEGATIVE [facility] Comment on above: Performed By: #### C ADAM #### [facility] [address] [place] [address] Dr. Aissatou Vásquez Clarity (U) CLEAR Normal CLEAR [facility] Comment on above: Performed By: #### C ADAM #### [facility] [address] [place] [address] Dr. Aissatou Vásquez Color (U) YELLOW Normal YELLOW [facility] Comment on above: Performed By: #### C ADAM #### [facility] [address] [place] [address] Dr. Aissatou BECKWITH A micrscopic examination will be performed if indicated. Normal [facility] Comment on above: Performed By: #### C ADAM #### [facility] [address] [place] [address] Dr. Aissatou Vásquez Glucose Ql (U) Negative Normal NEGATIVE [facility] Comment on above: Performed By: #### C ADAM #### [facility] [address] [place] [address] Dr. Aissatou Vásquez Hemoglobin Ql (U) MODERATE Abnormal NEGATIVE The [facility] Comment on above: Performed By: #### C ADAM #### [facility] [address] [place] [address] Dr. Aissatou Vásquez Ketones Ql (U) 15 mg/dl Abnormal NEGATIVE [facility] Comment on above: Performed By: #### C ADAM #### [facility] [address] [place] [address] Dr. Aissatou Vásquez LEUKOCYTES Negative Normal NEGATIVE [facility] Comment on above: Performed By: #### C ADAM #### [facility] [address] [place] [address] Dr. Aissatou Vásquez Nitrite Ql (U) Negative Normal NEGATIVE [facility] Comment on above: Performed By: #### C ADAM #### [facility] [address] [place] [address] Dr. Aissatou Vásquez pH (U) 5.0 [pH] Normal 5-9 [facility] Comment on above: Performed By: #### C ADAM #### [facility] [address] [place] [address] Dr. Aissatou Vásquez SPEC GRAVITY 1.025 Normal 1.005-<=1.[address] [facility] Comment on above: Performed By: #### C ADAM #### [facility] [address] [place] [address] Dr. Aissatou Vásquez UA PROTEIN TRACE Normal NEGATIVE/ TRACE [facility] Comment on above: Performed By: #### C ADAM #### [facility] [address] [place] [address] Dr. Aissatou Vásquez UR MICRO IND INDICATED Normal [facility] Comment on above: Performed By: #### C ADAM #### [facility] [address] [place] [address] Dr. Aissatou Vásquez Urobilinogen Qn (U) 0.2 {Ilene'U}/dL Normal 0.2 - 1. 0 [facility] Comment on above: Performed By: #### C ADAM #### [facility] [address] [place] [address] Dr. Aissatou Vásquez LIVER PROFILEon 07-01-2022 Albumin [Mass/Vol] 3.7 g/dL Normal 3.4-5.0 [facility] Comment on above: Performed By: #### L IVER, BMP, HSTROPN #### [facility] [address] [place] [address] Dr. Aissatou Vásquez Albumin/Globulin [Mass ratio] 0.9 {ratio} Normal [facility] Comment on above: Performed By: #### L IVER, BMP, HSTROPN #### [facility] [address] [place] [address] Dr. Aissatou Vásquez ALP [Catalytic activity/Vol] 143 U/L Critically high 46-116 [facility] Comment on above: Performed By: #### L IVER, BMP, HSTROPN #### [facility] [address] [place] [address] Dr. Aissatou Vásquez ALT [Catalytic activity/Vol] 56 U/L Normal 16-63 [facility] Comment on above: Performed By: #### L IVER, BMP, HSTROPN #### [facility] [address] [place] [address] [address] Aissatou Vásquez AST [Catalytic activity/Vol] 87 U/L Critically high 15-37 [facility] Comment on above: Performed By: #### L IVER, BMP, HSTROPN #### [facility] [address] [place] [address] Dr. Aissatou Vásquez BILI, CONJUGATED 0.2 mg/dL Normal 0.0-0.2 [facility] Comment on above: Performed By: #### L IVER, BMP, HSTROPN #### [facility] [address] [place] [address] Dr. Aissatou Vásquez Bilirubin [Mass/Vol] 0.6 mg/dL Normal 0.2-1.0 [facility] Comment on above: Performed By: #### L IVER, BMP, HSTROPN #### [facility] [address] [place] [address] Dr. Aissatou Vásquez Globulin (S) [Mass/Vol] 3.9 g/dL Normal [facility] Comment on above: Performed By: #### L IVER, BMP, HSTROPN #### [facility] [address] [place] [address] Dr. Aissatou Vásquez Protein [Mass/Vol] 7.6 g/dL Normal 6.4-8.2 [facility] Comment on above: Performed By: #### L IVER, BMP, HSTROPN #### [facility] [address] [place] [address] Dr. Aissatou Vásquez MYOGLOBINon 07-01-2022 SARAH 2042 ng/mL Critically high 16-[address] [facility] Comment on above: Performed By: #### L IVER, BMP, HSTROPN #### [facility] [address] [place] [address] Dr. Aissatou Vásquez PROF CHEM 8 (BAS METB)on Anion gap [Moles/Vol] 18.5 mmol/L Normal [facility] Comment on above: Performed By: #### L IVER, BMP, HSTROPN #### [facility] [address] [address] [address] Aissatou Vásquez Calcium [Mass/Vol] 9.8 mg/dL Normal 8.5-10.1 [facility] Comment on above: Performed By: #### L IVER, BMP, HSTROPN #### [facility] [address] [place] [address] [address] Aissatou Vásquez Chloride [Moles/Vol] 104 mmol/L Normal 98-107 [facility] Comment on above: Performed By: #### L IVER, BMP, HSTROPN #### [facility] [address] [place] [address] Dr. Aissatou Vásquez CO2 [Moles/Vol] 24.3 mmol/L Normal 21.0-32.0 [facility] Comment on above: Performed By: #### L IVER, BMP, HSTROPN #### [facility] [address] [address] [address] Aissatou Vásquez Creatinine [Mass/Vol] 1.74 mg/dL Critically high 0.70-1.30 [facility] Comment on above: Performed By: #### L IVER, BMP, HSTROPN #### [facility] [address] [place] [address] Dr. Aissatou Vásquez EGFR-AF MALDIVIAN 46 mL/min/1.73m2 Critically low >=60 [facility] Comment on above: Performed By: #### L IVER, BMP, HSTROPN #### [facility] [address] [place] [address] Dr. Aissatou Vásquez EGFR-NON AF MALDIVIAN 38 mL/min/1.73m2 Critically low >=60 [facility] Comment on above: Performed By: #### L IVER, BMP, HSTROPN #### [facility] [address] [place] [address] Dr. Aissatou Vásquez Glucose [Mass/Vol] 115 mg/dL Critically high 74-106 [facility] Comment on above: Performed By: #### L IVER, BMP, HSTROPN #### [facility] [address] [address] [address] Aissatou Vásquez Potassium [Moles/Vol] 4.8 mmol/L Normal 3.5-5.1 [facility] Comment on above: Performed By: #### L IVER, BMP, HSTROPN #### [facility] [address] [address] [address] Aissatou Vásquez Sodium [Moles/Vol] 142 mmol/L Normal 136-145 [facility] Comment on above: Performed By: #### L IVER, BMP, HSTROPN #### [facility] [address] [place] [address] [address] Aissatou Vásquez Urea nitrogen [Mass/Vol] 54.0 mg/dL Critically high 7.0-18.0 [facility] Comment on above: Performed By: #### L IVER, BMP, HSTROPN #### [facility] [address] [address] [address] Aissatou Vásquez Urea nitrogen/Creatinine [Mass ratio] 31.0 mg/mg Normal [facility] Comment on above: Performed By: #### L IVER, BMP, HSTROPN #### [facility] [address] [place] [address] [address] Aissatou Vásquez TROPONIN, HIGH SENSITIVITYon 07-01-2022 HSTROP 102.3 pg/mL Critically high 4.0-76.1 [facility] Comment on above: Result Comment: CUT- OFF POINTS HAVE BEEN ESTABLISHED BASED ON THE FOURTH UNIVERSAL DEFINITIONS OF MYOCARDIAL INFARCTION. THE UPPER REFERENCE LIMIT (URL) OF TROPONIN, DEFINED THE 99TH PERCENTILE OF cTnI DISTRIBUTION IN A REFERENCE POPULATION, HAS BEEN CONFIRMED THE DECISION THRESHOLD FOR CT DIAGNOSIS. Performed By: #### H STROPN ####[facility] [address] [place] [address]Dr. Aissatou Vásquez HSTROP 132.4 pg/mL Critically high 4.0-76.1 [facility] Comment on above: Result Comment: CUT- OFF POINTS HAVE BEEN ESTABLISHED BASED ON THE FOURTH UNIVERSAL DEFINITIONS OF MYOCARDIAL INFARCTION. THE UPPER REFERENCE LIMIT (URL) OF TROPONIN, DEFINED THE 99TH PERCENTILE OF cTnI DISTRIBUTION IN A REFERENCE POPULATION, HAS BEEN CONFIRMED THE DECISION THRESHOLD FOR CT DIAGNOSIS. Performed By: #### L DHARA WAITE, HSTROPN #### [facility] [address] [place] [address] Dr. Aissatou Vásquez TSHon 07-01-2022 TSH 7.840 uIU/mL Critically high 0.358-3.740 [facility] Comment on above: Performed By: #### L DHARA WAITE, HSTROPN #### [facility] [address] [place] [address] Dr. Aissatou Vásquez URINE MICROSCOPIC ONLYon BACTERIA NONE SEEN Normal NONE SEEN [facility] Comment on above: Performed By: #### C ADAM #### [facility] [address] [place] [address] Dr. Aissatou Vásquez Bacteria identified Cx Nom (U) NOT INDICATED Normal [facility] Comment on above: Performed By: #### C ADAM #### [facility] [address] [place] [address] Dr. Aissatou Vásquez CAST NONE SEEN Normal NONE SEEN [facility] Comment on above: Performed By: #### C ADAM #### [facility] [address] [place] [address] Dr. Aissatou Vásquez Crystals LM Nom (Urine sed) NONE SEEN Normal NONE SEEN [facility] Comment on above: Performed By: #### C ADAM #### [facility] [address] [place] [address] Dr. Aissatou Vásquez Epithelial cells LM Ql (Urine sed) RARE Normal NONE SEEN /RARE [facility] Comment on above: Performed By: #### C ADAM #### [facility] [address] [place] [address] Dr. Aissatou Vásquez MUCOUS TRACE Abnormal NONE SEEN [facility] Comment on above: Performed By: #### C ADAM #### [facility] [address] [place] [address] Dr. Aissatou Vásquez RBC 2-5 Abnormal 0-2 [facility] Comment on above: Performed By: #### C ADAM #### [facility] [address] [place] [address] Dr. Aissatou Vásquez WBC 2-5 Abnormal NONE SEEN [facility] Comment on above: Performed By: #### C ADAM #### [facility] [address] [place] [address] Dr. Aissatou Vásquez XR CHEST 1 Von [...] Jhony TOTH Date: 2022-07-01 18:01 Normal [facility] AMMONIAon 06-05-2022 Ammonia (P) [Mass/Vol] ug/dL Critically low [facility] Comment on above: Performed By: #### L IVER, BMP, HSTROPN #### [facility] [address] [place] [address] Dr. Aissatou Vásquez BNPon 06-05-2022 Natriuretic peptide B (Bld) [Mass/Vol] 672.0 pg/mL Normal <=1,800.0 [facility] Comment on above: Performed By: #### T SH, CMP, FT3, BNP, T4, LIPID #### [facility] [address] [address] [address] Aissatou Vásquez CBC AUTO DIFFon 06-05-2022 BASO # 0.0 103/ul Normal 0.0-0.1 [facility] Comment on above: Performed By: #### C ADAM #### [facility] [address] [place] [address] Dr. Aissatou Vásquez Basophils/100 WBC (Bld) 0.6 % Normal 0.2-2.0 [facility] Comment on above: Performed By: #### C ADAM #### [facility] [address] [place] [address] Dr. Aissatou Vásquez EO # 0.0 103/ul Normal 0.0-0.7 [facility] Comment on above: Performed By: #### C ADAM #### [facility] [address] [place] [address] Dr. Aissatou Vásquez Eosinophils/100 WBC (Bld) 0.6 % Critically low 0.9-7.0 [facility] Comment on above: Performed By: #### C ADAM #### [facility] [address] [place] [address] Dr. Aissatou Vásquez Erythrocyte distribution width (RBC) [Ratio] 13.7 % Normal 11.0-15.0 [facility] Comment on above: Performed By: #### C ADAM #### [facility] [address] [place] [address] Dr. Aissatou Vásquez Hematocrit (Bld) [Volume fraction] 40.7 % Critically low 42.0-54.0 [facility] Comment on above: Performed By: #### C ADAM #### [facility] [address] [place] [address] Dr. Aissatou Vásquez Hemoglobin (Bld) [Mass/Vol] 12.8 g/dL Critically low 14.0-18.0 [facility] Comment on above: Performed By: #### C ADAM #### [facility] [address] [place] [address] Dr. Aissatou Vásquez IG # 0.01 10e3/ul Normal 0.00-0.03 [facility] Comment on above: Performed By: #### C ADAM #### [facility] [address] [place] [address] Dr. Aissatou Vásquez IG % 0.2 % Normal 0.0-0.5 [facility] Comment on above: Performed By: #### C ADAM #### [facility] [address] [place] [address] Dr. Aissatou Vásquez LYMPH # 1.7 103/ul Normal 1.2-3.8 [facility] Comment on above: Performed By: #### C ADAM #### [facility] [address] [place] [address] Dr. Aissatou Vásquez Lymphocytes/100 WBC (Bld) 27.5 % Normal 20.5-60.0 [facility] Comment on above: Performed By: #### C ADAM #### [facility] [address] [place] [address] Dr. Aissatou Vásquez MANUAL DIFF REQ NO Normal [facility] Comment on above: Performed By: #### C ADAM #### [facility] [address] [place] [address] Dr. Aissatou Vásquez MCH (RBC) [Entitic mass] 30.3 pg Normal 25.9-34.0 [facility] Comment on above: Performed By: #### C ADAM #### [facility] [address] [place] [address] Dr. Aissatou Vásquez MCHC (RBC) [Mass/Vol] 31.4 g/dL Normal 29.9-35.2 [facility] Comment on above: Performed By: #### C ADAM #### [facility] [address] [place] [address] Dr. Aissatou Vásquez MCV (RBC) [Entitic vol] 96.2 fL Critically high 80.0-94.0 [facility] Comment on above: Performed By: #### C ADAM #### [facility] [address] [place] [address] Dr. Aissatou Vásquez MONO # 0.6 103/ul Normal 0.3-0.8 [facility] Comment on above: Performed By: #### C ADAM #### [facility] [address] [place] [address] Dr. Aissatou Vásquez Monocytes/100 WBC (Bld) 9.9 % Normal 1.7-12.0 [facility] Comment on above: Performed By: #### C ADAM #### [facility] [address] [place] [address] Dr. Aissatou Vásquez NEUT # 3.8 103/ul Normal 1.4-6.5 [facility] Comment on above: Performed By: #### C ADAM #### [facility] [address] [address] [address] Aissatou Vásquez Neutrophils/100 WBC (Bld) 61.2 % Normal 43.0-75.0 [facility] Comment on above: Performed By: #### C ADAM #### [facility] [address] [place] [address] Dr. Aissatou Vásquez Platelet mean volume (Bld) [Entitic vol] 9.3 fL Critically low 9.5-13.5 [facility] Comment on above: Performed By: #### C ADAM #### [facility] [address] [place] [address] Dr. Aissatou Vásquez PLT 218 103/ul Normal 150-450 [facility] Comment on above: Performed By: #### C ADAM #### [facility] [address] [place] [address] Dr. Aissatou Vásquez RBC 4.23 106/ul Critically low 4.70-6.[address] [facility] Comment on above: Performed By: #### C ADAM #### [facility] [address] [place] [address] Dr. Aissatou Vásquez WBC 6.3 103/ul Normal 4.0-11.0 [facility] Comment on above: Performed By: #### C ADAM #### [facility] [address] [place] [address] Dr. Aissatou Vásquez FREE T3on 06-05-2022 FREE T3 1.80 pg/mlL Critically low 2.18-3.[address] [facility] Comment on above: Performed By: #### T SH, CMP, FT3, BNP, T4, LIPID #### [facility] [address] [place] [address] Dr. Aissatou Vásquez GLYCOHEMOGLOBIN A1Con 2021 ADA RECOMMENDATION SEE BELOW Normal [facility] Comment on above: Result Comment: ADA RECOMMENDED LIMIT 4.0 - 6.0 ADA THERAPEUTIC TARGET < 7.0 ACTION SUGGESTED > 7.0 Performed By: #### L IVER, BMP, HSTROPN #### [facility] [address] [place] [address] Dr. Aissatou Vásquez Glucose [Mass/Vol] 117 mg/dL Normal [facility] Comment on above: Performed By: #### L IVER, BMP, HSTROPN #### [facility] [address] [address] [address] Aissatou Vásquez HbA1c (Bld) [Mass fraction] 5.7 % Normal 4.5-6.2 [facility] Comment on above: Performed By: #### L IVER, BMP, HSTROPN #### [facility] [address] [address] [address] Aissatou Vásquez IRONon 06-05-2022 Iron [Mass/Vol] 76.0 ug/dL Normal 65.0-175.[address] [facility] Comment on above: Performed By: #### P SASC, VITAD, IRON, B12FOL ####[facility] [address] [address]DrBud Vásquez LIPID PROFILEon 06-05-2022 CHOL-HDL RATIO NORM SEE BELOW Normal [facility] Comment on above: Result Comment: 3.3 - 4.4 LOW RISK 4.4 - 7.1 AVERAGE RISK 7.1 - 11.0 MODERATE RISK >11.0 HIGH RISK Performed By: #### T SH, CMP, FT3, BNP, T4, LIPID ####[facility] [address] [address]DrBud Vásquez Cholesterol [Mass/Vol] 133 mg/dL Normal <=200 [facility] Comment on above: Performed By: #### T SH, CMP, FT3, BNP, T4, LIPID ####[facility] [address] [address]Dr. Aissatou Vásquez Cholesterol in HDL [Mass/Vol] 79 mg/dL Critically high 40-60 [facility] Comment on above: Performed By: #### T SH, CMP, FT3, BNP, T4, LIPID ####[facility] [address] [address]DrBud Vásquez Cholesterol in LDL [Mass/Vol] 43.6 mg/dL Normal [facility] Comment on above: Performed By: #### T SH, CMP, FT3, BNP, T4, LIPID ####[facility] [address] [place], [place] [address]Vb. Aissatou Vásquez Cholesterol.total/Cho lesterol in HDL [Mass ratio] 1.7 {ratio} Normal [facility] Comment on above: Performed By: #### T SH, CMP, FT3, BNP, T4, LIPID ####[facility] [address] [place], [place] [address]Qv. Aissatou Vásquez HDL NORMAL > or = 60 mg/dl - LO W CARDIOVASCULAR RISK <40 mg/dl - HIGH CARDIOVASCULAR RISK Normal [facility] Comment on above: Performed By: #### T SH, CMP, FT3, BNP, T4, LIPID ####[facility] [address] [id number]. Aissatou Vásquez LDL CALC NORMAL SEE BELOW Normal [facility] Comment on above: Result Comment: <100 mg/dl OPTIMAL 100 - 129 mg/dl NEAR OR ABOVE OPTIMAL 130 - 159 mg/dl BORDERLINE HIGH 160 - 189 mg/dl HIGH >190 mg/dl VERY HIGH Performed By: #### T SH, CMP, FT3, BNP, T4, LIPID ####[facility] [address] [id number]. Aissatou Vásquez Triglyceride [Mass/Vol] 52 mg/dL Normal <=150 [facility] Comment on above: Performed By: #### T SH, CMP, FT3, BNP, T4, LIPID ####[facility] [address] [id number]. Aissatou Vásquez VLDL CALC 10.4 mg/dL Normal [facility] Comment on above: Performed By: #### T SH, CMP, FT3, BNP, T4, LIPID ####[facility] [address] [id number]. Aissatou Vásquez PROF 14(COMP METB)on 022 Albumin [Mass/Vol] 4.0 g/dL Normal 3.4-5.0 [facility] Comment on above: Performed By: #### T SH, CMP, FT3, BNP, T4, LIPID ####[facility] [address] [address]Dr. Aissatou Vásquez Albumin/Globulin [Mass ratio] 1.1 {ratio} Normal [facility] Comment on above: Performed By: #### T SH, CMP, FT3, BNP, T4, LIPID ####[facility] [address] [address]Dr. Aissatou Vásquez ALP [Catalytic activity/Vol] 137 U/L Critically high 46-116 [facility] Comment on above: Performed By: #### T SH, CMP, FT3, BNP, T4, LIPID ####[facility] [address] [address]Dr. Aissatou Vásquez ALT [Catalytic activity/Vol] 18 U/L Normal 16-63 [facility] Comment on above: Performed By: #### T SH, CMP, FT3, BNP, T4, LIPID ####[facility] [address] [address]Dr. Sheysarah Vásquez Anion gap [Moles/Vol] 11.1 mmol/L Normal [facility] Comment on above: Performed By: #### T SH, CMP, FT3, BNP, T4, LIPID ####[facility] [address] [address]Dr. Aissatou Vásquez AST [Catalytic activity/Vol] 9 U/L Critically low 15-37 [facility] Comment on above: Performed By: #### T SH, CMP, FT3, BNP, T4, LIPID ####[facility] [address] [address]Dr. Aissatou Vásquez Bilirubin [Mass/Vol] 0.3 mg/dL Normal 0.2-1.0 [facility] Comment on above: Performed By: #### T SH, CMP, FT3, BNP, T4, LIPID ####[facility] [address] [place], [place] [address]Dr. Sheysarah Vásquez Calcium [Mass/Vol] 9.4 mg/dL Normal 8.5-10.1 [facility] Comment on above: Performed By: #### T SH, CMP, FT3, BNP, T4, LIPID ####[facility] [address] [address]Dr. Aissatou Vásquez Chloride [Moles/Vol] 102 mmol/L Normal 98-107 [facility] Comment on above: Performed By: #### T SH, CMP, FT3, BNP, T4, LIPID ####[facility] [address] [address]Dr. Aissatou Vásquez CO2 [Moles/Vol] 29.7 mmol/L Normal 21.0-32.0 [facility] Comment on above: Performed By: #### T SH, CMP, FT3, BNP, T4, LIPID ####[facility] [address] [place], [place] [address]Dr. Aissatou Vásquez Creatinine [Mass/Vol] 1.62 mg/dL Critically high 0.70-1.30 [facility] Comment on above: Performed By: #### T SH, CMP, FT3, BNP, T4, LIPID ####[facility] [address] [place], [place] [address]Dr. Aissatou Vásquez EGFR-AF MALDIVIAN 50 mL/min/1.73m2 Critically low >=60 [facility] Comment on above: Performed By: #### T SH, CMP, FT3, BNP, T4, LIPID ####[facility] [address] [place], [place] [address]Dr. Aissatou Vásquez EGFR-NON AF MALDIVIAN 41 mL/min/1.73m2 Critically low >=60 [facility] Comment on above: Performed By: #### T SH, CMP, FT3, BNP, T4, LIPID ####[facility] [address] [place], [place] [address]Dr. Aissatou Vásquez Globulin (S) [Mass/Vol] 3.8 g/dL Normal [facility] Comment on above: Performed By: #### T SH, CMP, FT3, BNP, T4, LIPID ####[facility] [address] [place], [place] [address]Dr. Aissatou Vásquez Glucose [Mass/Vol] 86 mg/dL Normal 74-106 [facility] Comment on above: Performed By: #### T SH, CMP, FT3, BNP, T4, LIPID ####[facility] [address] [address]Dr. Aissatou Vásquez Potassium [Moles/Vol] 4.8 mmol/L Normal 3.5-5.1 [facility] Comment on above: Performed By: #### T SH, CMP, FT3, BNP, T4, LIPID ####[facility] [address] [address]Dr. Aissatou Vásquez Protein [Mass/Vol] 7.8 g/dL Normal 6.4-8.2 [facility] Comment on above: Performed By: #### T SH, CMP, FT3, BNP, T4, LIPID ####[facility] [address] [address]Dr. Aissatou Vásquez Sodium [Moles/Vol] 138 mmol/L Normal 136-145 [facility] Comment on above: Performed By: #### T SH, CMP, FT3, BNP, T4, LIPID ####[facility] [address] [address]Dr. Aissatou Vásquez Urea nitrogen [Mass/Vol] 41.0 mg/dL Critically high 7.0-18.0 [facility] Comment on above: Performed By: #### T SH, CMP, FT3, BNP, T4, LIPID ####[facility] [address] [address]Dr. Aissatou Vásquez Urea nitrogen/Creatinine [Mass ratio] 25.3 mg/mg Normal [facility] Comment on above: Performed By: #### T SH, CMP, FT3, BNP, T4, LIPID ####[facility] [address] [address]Dr. Aissatou Vásquez T4on 06-05-2022 T4 [Mass/Vol] 9.70 ug/dL Normal 4.50-12.10 [facility] Comment on above: Performed By: #### T SH, CMP, FT3, BNP, T4, LIPID #### [facility] [address] [address] [address] Aissatou Vásquez TSHon 06-05-2022 TSH 2.525 uIU/mL Normal 0.358-3.740 [facility] Comment on above: Performed By: #### T SH, CMP, FT3, BNP, T4, LIPID ####[facility] [address] [id number]. Aissatou Vásquez VIT B12 AND FOLATEon 022 Cobalamin (Vitamin B12) [Mass/Vol] 1004.0 pg/mL Critically high 193.0-986.0 [facility] Comment on above: Performed By: #### P SASC, VITAD, IRON, B12FOL ####[facility] [address] [id number]. Aissatou Vásquez FOLATE 6.10 ng/mL Critically low 8.60-58.90 [facility] Comment on above: Performed By: #### P SASC, VITAD, IRON, B12FOL ####[facility] [address] [address]Dr. Aissatou Vásquez VITAMIN D 25 OHon 06-05-2022 VIT D 25-OH 31.8 ng/mL Normal [facility] Comment on above: Performed By: #### P SASC, VITAD, IRON, B12FOL ####[facility] [address] [address]Dr. Aissatou Vásquez VIT D RANGES SEE BELOW Normal [facility] Comment on above: Result Comment: <20 ng/mL Vit D deficient 20 - <30 ng/mL Vit D insufficient 30 - 100 ng/mL Vit D sufficient >100 ng/mL Potential Toxicity Performed By: #### P SASC, VITAD, IRON, B12FOL ####[facility] [address] [id number]. Aissatou Vásquez Coding Summary.on 01-23-2017 Coding Summary. CODING DATE: 01/23/2017 FINAL [facility] STATUS: Home (Routine DC) PAYOR: Medicare [...] [place] Date Saved: 01/23/2017 10:07 am Normal [facility] Creatinineon 01-22-2017 Creatinine 1.0 mg/dL Normal 0.5-1.3 [facility] Comment on above: Performed By: #### 2 [id number], [id number] ####[facility] [address] [place] [address] eGFRon 01-22-2017 eGFR (black) mL/min/{1.73_m2} Normal >=59 [facility] Comment on above: Order Comment: Order added by Discern Expert. Result Comment: eGFR is race adjusted. AA=. Performed By: #### 2 [id number], [id number] ####[address] [place] [address] eGFR (non-black) mL/min/{1.73_m2} Normal >=59 [facility] Comment on above: Order Comment: Order added by Discern Expert. Result Comment: Client Services Coordinator matt kidney disease could be indicated at eGFR's of less than 60 mL/min/1.73m2. Kidney failure is indicated at less than 15 mL/min/1.73m2. Performed By: #### 2 [id number], [id number] ####[facility] [address] [place] [address] Vital Signs Date Time Vital Sign Value Performing Clinician Luci jacob 03-23-2023 13:55-0400 Diastolic blood pressure 68 mm[Hg] Jodi Banerjee DO Work Phone: [facility] 03-23-2023 13:55-0400 Heart rate 51 /min Jodi Banerjee DO Work Phone: [facility] 03-23-2023 13:55-0400 Systolic blood pressure 151 mm[Hg] Jodi Banerjee DO Work Phone: [facility] 08-27-2022 13:12-0500 Diastolic blood pressure 70 mm[Hg] Jodi Banerjee DO Work Phone: [facility] 08-27-2022 13:120500 Heart rate 69 /min Gonormanfrantz Adameaure DO Work Phone: [facility] 08-27-2022 13:12-0500 Systolic blood pressure 156 mm[Hg] Jodi Banerjee DO Work Phone: [facility] Encounters Encounter Date Encounter Type Care Provider Facility Start: 08-11-2023 End: 08-12-2023 ambulatory PIPE HOPKINS [facility] Start: 07-23-2023 End: 07-23-2023 ambulatory AMANDA IRBY Not Available Start: 06-24-2023 End: 06-24-2023 ambulatory [facility] Start: 03-23-2023 End: 03-23-2023 ambulatory JODI BANERJEE Facility:[facility] Start: 03-23-2023 End: 03-23-2023 Patient encounter procedure Jodi Banerjee DO Work Phone: Neurology Comment on above: Altered mental statu s, unspecified altered mental status type (Primary Dx); Memory loss Start: 03-23-2023 Telephone encounter Rudi Banerjee DO Work Phone: Neurology Start: 12-25-2022 End: 12-26-2022 ambulatory [facility] Start: 10-27-2022 End: 10-28-[address] PIPE HOPKINS . Facility:[facility] Start: 09-24-2022 End: 09-24-[address] PIPE HOPKINS . Facility: Start: 09-22-2022 End: 09-22-2022 ambulatory [facility] Start: 08-27-2022 End: 08-28-2022 ambulatory PIPE HOPKINS Facility:[facility] Start: 08-27-2022 End: 08-27-2022 Patient encounter procedure [...] Start: 06-25-2017 End: 06-26-2017 Ambulatory DEFAULT PHYSICIAN Facility:[facility] Start: 01-22-2017 End: 01-23-2017 Ambulatory SHONDA ALTAMIRANO Facility:[facility] Start: 05-27-2011 Patient encounter status Jodi Banerjee DO Work Phone: [facility] Work Phone: Procedures Date Procedure Procedure Detail Performing Clinician Start: 06-05-[address] ORTIZ HOPKINS . Comment on above: Performed By: #### P SASC, VITAD, IRON, B12FOL ####[facility] [address] [place], [place] [address]CtBud Vásquez Start: 02-20-2020 History of coronary artery bypass grafting S/P CABG (coronary artery bypass graft), PARRA to the LAD, SVG to D1, SVG to OM1, SVG to OM 2, inverted Y grafted PLV and posterior descending artery. Jodi Banerjee DO Work Phone: Plan of Treatment Date Care Activity Detail Author Start: 03-06-2023 Influenza vaccination Influenza Vacc ine (#1) [facility] Start: 08-27-2022 End: 10-27-2022 25-hydroxyvitamin D3 [Mass/volume] in Serum or Plasma [facility] Work Phone: Comment on above: Expected: 08/27/2022 , Expires: 10/27/2022 Start: 08-27-2022 End: 10-27-2022 SYPHILIS TOTAL W/REFLEX [facility] Work Phone: Comment on above: Expected: 08/27/2022 , Expires: 10/27/2022 Start: 07-06-2022 ADVANCE DIRECTIVE DISCUSSION ADVANCE DIRECTIVE DISCUSSION [facility] Start: 07-06-2022 DEPRESSION ASSESSMENT DEPRESSION ASS ESSMENT [facility] Start: 03-06-2022 Influenza vaccination INFLUENZA (#1) [facility] Start: 12-17-2019 DIABETES SCREEN [facility]CREEN [facility] Start: 12-17-2019 Diabetes Screening Diabetes Screenin g [facility] Start: 05-21-2012 Hepatitis B surface antibody level LDL CHOLESTEROL [facility] Start: 2003 Pneumococcal Vaccine : 65+ (1 - PCV) Pneumococcal Vaccine: 65+ (1 - PCV) [facility] Start: 2003 PNEUMOCOCCAL: 65+ (1 - PCV) PNEUMOCOCCAL: 65+ (1 - PCV) [facility] Start: 1988 SHINGRIX VACCINE (1 of 2) SHINGRIX VACCINE (1 of 2) [facility] Start: 1957 Urine microalbumin profile [facility] Start: 02-18-1939 COVID-19 VACCINE (#1) COVID-19 VACCI NE (#1) [facility] Immunizations Immunization Date Immunization Notes Care Provider Jewell molina 06-18-2017 influenza virus vaccine, unspecified formulation Jodi Banerjee DO Work Phone: [facility] Payers Date Payer Category Payer Medicare [id number] 2016 Private Health Insurance [facility] AARP SUPPLEMENT [id number] 2016-Present [phone] [address] [place] [address] Indemnity [id number] 2003 Medicare MEDICARE MEDICAR E A AND B [id number] 2003-Present [phone] [address] [address] [place] [address] Medicare [id number] 1959 Medicaid [id number] 1959 Medicare [id number] 1959 Unknown [id number] 1938 Unknown [id number] [id number]. 593 1938 Unknown [id number] [id number]. 593 1938 Unknown [id number] [id number]. 593 1938 Unknown [id number] [id number]. 593 1938 Unknown [id number] [id number]. 593 1938 Unknown [id number] [id number]. 593 1938 Unknown [id number] [id number]. 593 1938 Unknown [id number] [id number]. 593 1938 Unknown [id number] [id number]. 1259 1938 Unknown [id number]. 1286 Unknown Social History Date Type Detail Facility Start: 08-27-2022 Tobacco smoking stat us FLIS Ex-smoker [facility] History of tobacco use Current smoker [facility] History of tobacco use Cigarette Smoker C [facility] Start: 08-27-2022 End: 03-23-2023 Cigarettes smoked current (pack per day) - Reported 1 [facility] Start: 08-27-2022 Tobacco use and exposure Vincent workman smokeless tobacco user [facility] End: 06-02-1971 History of tobacco use User of smokeless tobacco [facility] Start: 08-27-2022 End: 03-23-2023 Alcohol intake Current drinker of alcohol (finding) [facility] Start: 08-27-2022 Tobacco Comment quit 40 yrs ago [facility] Start: 05-21-2011 Alcohol Comment He drinks 4 gl asses of red wine weekly [facility] Start: 1940 Sex Assigned At Not on file C [facility] Start: 03-23-2023 Tobacco use panel [facility] National Score (1-10 0), lower number is lower risk 52 [facility] Clinical Notes 05-28-2011 to 06-24-2023 Telephone Encounter - Terri Santos - 03/23/2023 3:27 PM EDTPatient Jodi Vernon, - 03/23/2023 1:46 PM EDTChgnio Banerjee, - 08/27/2022 1:12 PM EST Note Date & Type Note Facility 06-24-2023 Note [place] [facility] Subjective Leanna Nelson is a 82 y.o. year old male patient being seen for 6 mo follow up CAD, hypertension, chronic diastolic heart failure, and carotid artery stenosis. Had routine labs in Mar 2023. Doing well from cardiac standpoint. No recurrent syncope. Patient Active Problem List Diagnosis Chronic diastolic heart failure (CMS/HCC) PAC (premature atrial contraction) Coronary artery disease involving campo coronary artery of campo heart without angina pectoris Hx of CABG [...] , Rfl: multivitamin (more content not included)... [facility] 03-23-2023 Note HNO ID: [id number] Author: Jodi Banerjee, DO Service: ? Author Type: Physician Type: Progress Notes Filed: 03/23/2023 2:41 PM Note Text: [facility] Neurologic [place] Follow-up visit March 23, 2023 HPI: Overall [...] encounter he has moved and low lives [facility]. He states he does not [...] mainly his brother. He has seen by rn emergency room in 01/2023 with suggestion that he get a hearing aide but he refuses. After his last encounter he has followed up with cardiology concerning his heart rate that was auscultated on last encounter. They checked his heart rhythm and thought it was appropriate. This was as via physician in [place]. They deny other changes to his health and/or medications except for the above since our last encounter. PAST MEDICAL HISTORY Diagnosis Date Arthritis Carotid stenosis Coronary artery disease Coronary atherosclerosis of unspecified type of vessel, campo or graft 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 Dyslipidemia Hypertension Hypertension Hypothyroid Lumbar disc disease Unspecified hypothyroidism Hypothyroidism PAST SURGICAL HISTORY Procedure Laterality Date PAST SURGICAL HISTORY OF CABG times 6 left internal thoracic artery to the hac-fo-nrojzu left anterior descending artery, reverse saphenous vein [...] tablet Take 5 (more content not included)... [facility] 03-23-2023 Miscellaneous Notes 03/23/2023 After visit Summary faxed to Dr Hopkins with confirmation received. PSS forgot to have pt complete release of information forms. This nurse has placed 2 copies in [place] mail for pt to complete and take to facility to release information to our office. POA was advised via voice message to send a [employer] msg if he had any further question. Terri Santos Lpn documented in this encounter [facility] 03-23-2023 Jodi Madrigal DO - 03/23/2023 2:40 PM EDT Please sign records release for last blood test results. documented in this encounter [facility] [facility] History of Present illness Narrative [facility] Follow-up visit March 23, 2023 HPI: Overall [...] encounter he has moved and low lives [facility]. He states he does not [...] mainly his brother. He has seen by rn emergency room in 01/2023 with suggestion that he get a hearing aide but he refuses. After his last encounter he has followed up with cardiology concerning his heart rate that was auscultated on last encounter. They checked his heart rhythm and thought it was appropriate. This was as via physician in [place]. They deny other changes to his health and/or medications except for the above since our last encounter. PAST MEDICAL HISTORY Diagnosis Date Arthritis Carotid stenosis Coronary artery disease Coronary atherosclerosis of unspecified type of vessel, campo or graft 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 Dyslipidemia Hypertension Hypertension Hypothyroid Lumbar disc disease Unspecified hypothyroidism Hypothyroidism PAST SURGICAL HISTORY Procedure Laterality Date PAST SURGICAL HISTORY OF CABG times 6 left internal thoracic artery to the yes-zy-[id number] left anterior descending artery, reverse saphenous vein [...] with more than 50% of the total xbil-xs-[id number] time of the visit in counseling / coordination of care. documented in this encounter [facility] 12-25-2022 Note [place] [facility] Subjective Leanna Nelson is a 82 y.o. year old male patient being seen for Follow-up (3 month follow up ) Patient Active Problem List Diagnosis Chronic diastolic heart failure (CMS/HCC) PAC (premature atrial contraction) Coronary artery disease involving campo coronary artery of campo heart without angina pectoris Hx of CABG [...] , Rfl: choleca (more content not included)... [facility] 09-22-2022 Note Cardiovascular Medic ine [facility] SUBJECTIVE Chief Complaint Patient presents with office visit brother made appt had appt with neuro thought they heard something when listening to heart. confirmed Leanna Nelson is a 82 y.o. male here for follow-up. HPI PMHx: CAD s/p CABG 2010, HTN, HLD, former tobacco use, hypothyroidism, SAGAR (mild) FMHx: brother hx of CT/CAD and HFrEF 09/22/2022 He is accompanied by his brother. He was admitted back in 06/2022 d/t a fall, treated for rhabdo. 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 [facility] 09-22-2022 Note Review of Systems Cardiovascular: Positive for leg swelling and near-syncope. Negative for chest pain, claudication, cyanosis, dyspnea on exertion, irregular heartbeat, orthopnea, palpitations, paroxysmal nocturnal dyspnea and syncope. Bilateral leg swelling [facility] 08-27-2022 Note HNO ID: [id number] Author: Jodi Banerjee, DO Service: ? Author Type: Physician Type: Progress Notes Filed: 08/27/2022 2:35 PM Note Text: [facility] New Patient Consultation August 27, 2022 HPI: [...] while there. They have been working with addiction social worker at the facility he is [...] Coronary atherosclerosis of unspecified type of vessel, campo or graft 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 Dyslipidemia Hypertension Hypertension Hypothyroid Lumbar disc disease Unspecified hypothyroidism Hypothyroidism PAST SURGICAL HISTORY Procedure Laterality Date PAST SURGICAL HISTORY OF CABG times 6 left internal thoracic artery to the [id number]-dz-[id number] left anterior descending artery, reverse saphenous vein [...] Former Packs/day: 1.0 (more content not included)... [facility] 08-27-2022 History of Present illness Narrative [facility] New Patient Consultation August 27, 2022 HPI: [...] while there. They have been working with addiction social worker at the facility he is [...] Coronary atherosclerosis of unspecified type of vessel, campo or graft 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 Dyslipidemia Hypertension Hypertension Hypothyroid Lumbar disc disease Unspecified hypothyroidism Hypothyroidism PAST SURGICAL HISTORY Procedure Laterality Date PAST SURGICAL HISTORY OF CABG times 6 left internal thoracic artery to the vdc-of-[id number] left anterior descending artery, reverse saphenous vein [...] with more than 50% of the total vyii-io-ouxh time of the visit in counseling / coordination of care. documented in this encounter [facility] 05-28-2011 History of Past i llness Narrative Problem Noted Date Resolved Date Stress hyperglycemia 05/28/2011 06/01/2011 Overview: RHI gtt per ICU protocol Mechanically assisted ventilation 05/28/2011 05/29/2011 Overview: Extubated 05/29/11 no increased work of breathing Hypotension 05/28/2011 05/30/2011 Overview: Levo off this morning, hemodynamically stable. documented as of this encounter (statuses as of 08/27/2022) [facility] of Past illness Narrative* Problem Noted Date Diagnosed Date Resolved Date Stress hyperglycemia 05/28/2011 011 Overview: RHI gtt per ICU protocol Mechanically assisted ventilation 05/28/2011 05/29/2011 Overview: Extubated 05/29/11 no increased work of breathing Hypotension 05/28/2011 05/30/2011 Overview: Levo off this morning, hemodynamically stable. documented as of this encounter (statuses as of 03/24/2023) [facility] of [facility] illness Narrative* Problem Noted Date Diagnosed Date Resolved Date Stress hyperglycemia 05/28/2011 011 Overview: RHI gtt per ICU protocol Mechanically assisted ventilation 05/28/2011 05/29/2011 Overview: Extubated 05/29/11 no increased work of breathing Hypotension 05/28/2011 05/30/2011 Overview: Levo off this morning, hemodynamically stable. documented as of this encounter (statuses as of 03/24/2023) [facility] Diagnosis Altered mental status, unspecified altered mental status type- Primary Vitamin D deficiency, unspecified [facility] Diagnosis Altered mental status, unspecified altered mental status type- Primary Memory loss documented in this encounter [facility] Summary Purpose Family History No Family History Records FoundNo Family History Records FoundNo Family History Records FoundNo Family History Records FoundNo Family History Records FoundNo Family History Records FoundNo Family History Records FoundNo Family History Records Found Advance Directives No Advanced Directives Records FoundDocuments on File Type Date Recorded 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 Expl anation Advance Directive(s) 08/27/2022 1:25 PM Additional Source Comments (unrecognized sect ion and content) No Status Records FoundNo Status Records FoundNo Status Records FoundNo Status Records FoundNo Status Records FoundNo Status Records FoundNo Status Records FoundNo Status Records Found INFORMATION SOURCE (unrecogn ized section and content) DATE CREATED AUTHOR 12/29/2017 [facility] DATE CREATED AUTHOR AUTHOR'S ORGANIZ ATION 12/30/2017 [facility] DATE CREATED AUTHOR AUTHOR'S ORGANIZ ATION 08/28/2022 [facility] DATE CREATED AUTHOR AUTHOR'S ORGANIZ ATION 12/12/2022 [facility] DATE CREATED AUTHOR AUTHOR'S ORGANIZ ATION 03/25/2023 [facility] DATE CREATED AUTHOR AUTHOR'S ORGANIZ ATION 06/25/2023 [facility] DATE CREATED AUTHOR AUTHOR'S ORGANIZ ATION 07/24/2023 [facility] DATE CREATED AUTHOR AUTHOR'S ORGANIZ ATION 08/17/2023 [facility] Source Comments (unrecognize d section and content) In the event this informatio n is protected by the Federal Confidentiality of Alcohol and Drug Abuse Patient Records regulations: The Federal rules restrict any use of the information to criminally investigate or prosecute any alcohol or drug abuse patient.[facility] the event this information is protected by the Federal Confidentiality of Alcohol and Drug Abuse Patient Records regulations: The Federal rules restrict any use of the information to criminally investigate or prosecute any alcohol or drug abuse patient.[facility] the event this information is protected by the Federal Confidentiality of Alcohol and Drug Abuse Patient Records regulations: The Federal rules restrict any use of the information to criminally investigate or prosecute any alcohol or drug abuse patient.[facility] Reason for Visit (unrecogniz ed section and content) Reason Comments New Patient Reason Comments Follow Up Care Teams (unrecognized sec tion and content) Tuber Helper Relationship Specialty Start Date End Date Pipe Hopkins MD [address] [place] [address] PCP - General 05/19/11 [address] [place] [address] Primary Staff Physician Cardiology 09/21/18 Tuber Helper Relationship Specialty Start Date End Date Pipe Hopkins MD [address] [place] [address] PCP - General 05/19/11 [address] [place] [address] Primary Staff Physician Cardiology 09/21/18 Tuber Helper Relationship Specialty Start Date End Date Pipe Hopkins MD [address] [place] [address] PCP - General 05/19/11 [address] [place] [address] Primary Staff Physician Cardiology 09/21/18 FOR RECORDS [...] BE BASED ON THE PRIMARY CLINICAL RECORDS. [facility]. provides no warranty or guarantee of the accuracy or completeness of information in this document.
--- OUTSIDE RECORDS SUMMARY | 2023-12-30 01:04 | XMS_ITS | CCD ---
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 Name Role Phone PHYSICIAN, DEFAULT Unavailable Unavailable PHYSICIAN, DEFAULT Unavailable Unavailable EVELIA, SUNJUK Unavailable Unavailable EVELIA, SUNJUK Unavailable Unavailable EVELIA, SUNJUK Unavailable Unavailable Pipe Hopkins~[phone] UNKNOWN Unavailable Unavailable Pipe Hopkins MD Primary Care Provider [phone] [place] Unavailable [phone] PIPE HOPKINS Primary Care Unavailable JODI BANERJEE [...] DR BETANCUR Attending Unavailable HOY ., DR BETANCRU Consulting Unavailable HOY ., DR BETANCUR Primary [...] Unavailable Pipe Hopkins MD Primary Care Provider [phone] [place] Unavailable JODI BANERJEE Attending PIPE Rascon Primary Care Unavailable JODI BANERJEE Attending UnavailPIPE Jeong Primary Care Unavailable AYSE BARNES Attending Unavailable IRINEO BOSS Attending Unavailable AYSE BARNES Attending Unavailable AMANDA IRBY Attending Unavailable PIPE HOPKINS Referring Unavailable Allergies Allergy Classification Reported Allergen(s) Allergy Type Date of Onset Reaction(s) Facility (2 sources) atorvastatin; Translations: [Lipitor] Drug Allergy [facility] Repository (5 sources) atorvastatin; Translations: [ATORVASTATIN CALCIUM] Drug Allergy 03-28-2014 [facility] (1 source) atorvastatin; Translations: [ATORVASTATIN] Drug Allergy 03-28-2014 [facility] Repository Medications Completed/Discontinued Medications Medication Drug [...] Coronary arteriosclerosis; Translations: [Atherosclerotic heart disease of white earth coronary artery without angina pectoris] Onset: 05-27-2011 [...] Onset: 07-14-2022 Episodic Other aftercare (1 source) [facility] (current) use of aspirin; Translations: [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] Onset: 07-14-2022 Episodic Other aftercare (1 source) 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; Translations: [OTH [facility] CURRENT DRUG THERAPY] Onset: 07-14-2022 Episodic Other [...] 08-11-2023 Bilirubin Ql (U) Negative Normal NEG [facility] Comment on above: Performed By: #### U A #### [facility] ([id number]) [address] [place] [address] [place] [address] BLOOD/HGB Negative Normal NEG [facility] Comment on above: Performed By: #### U A #### [facility] ([id number]) [address] [place] [address] [place] [address] Color (U) YELLOW Normal YELLOW [facility] Comment on above: Performed By: #### U A #### [facility] ([id number]) [address] [place] [address] [place] [address] Glucose Ql (U) Negative Normal NEG [facility] Comment on above: Performed By: #### U A #### [facility] ([id number]) [address] [place] [address] [place] [address] Ketones Ql (U) Negative Normal NEG [facility] Comment on above: Performed By: #### U A #### [facility] ([id number]) [address] [place] [address] [place] [address] Leukocyte esterase Test strip Ql (U) Negative Normal NEG [facility] Comment on above: Performed By: #### U A #### [facility] ([id number]) [address] [place] [address] Nitrite Ql (U) Negative Normal NEG [facility] Comment on above: Performed By: #### U A #### [facility] ([id number]) [address] [place] [address] pH (U) 6.0 [pH] Normal 5.0-8.5 [facility] Comment on above: Performed By: #### U A #### [facility] ([id number]) [address] [place] [address] Protein Ql (U) Negative Normal NEG [facility] Comment on above: Performed By: #### U A #### [facility] ([id number]) [address] [place] [address] Specific gravity (U) [Rel density] 1.025 Normal 1.003-1.035 [facility] Comment on above: Performed By: #### U A #### [facility] ([id number]) [address] [place] [address] TURBIDITY CLEAR Normal CLEAR [facility] Comment on above: Performed By: #### U A #### [facility] ([id number]) [address] [place] [address] Urobilinogen Qn (U) 0.2 {Ilene'U}/dL Normal <1.1 [facility] Comment on above: Performed By: #### U A #### [facility] ([id number]) [address] [place] [address] URINE CULTUREon 08-11-2023 Bacteria identified Cx Nom (U) CULTURE RESULTS <10,000 ORGANISMS/ML NORMAL URO GENITAL LOIS Normal [facility] Comment on above: Performed By: #### 6 30-4 #### [facility] ([id number]) [address] [place] [address], [address] [place] [address] Office Visiton 06-24-2023 Follow-up visit [id number] Leanna Nelson 1940 M Date Provider Department Center 06/24/2023 AYSE VIVAR Family History Problem Relation Age of Onset Coronary artery disease Brother Heart attack Brother Heart failure Brother Other Brother Family Status - Relation Status Age at Brother Level of Service:72371 [place] OFFICE/OUTPATIENT ESTABLISHED LOW MDM 20 MIN Normal [facility] CNOVon 03-23-2023 CNOV Office Visit (NEUSHF ) LEANNA NELSON ([id number]) 1940 M Date Time Provider Department 03/23/23 2:00 PM JODI BANERJEE During your visit today, we recorded the following information about you: Pulse Blood pressure 51/minute 151/68 Jodi Banerjee, DO 03/23/2023 2:41 PM Signed [facility] [place] Follow-up visit March 23, 2023 HPI: Overall [...] encounter he has moved and low lives [facility]. He states he does not [...] mainly his brother. He has seen by cattyman in 01/2023 with suggestion that he get a hearing aide but he refuses. After his last encounter he has followed up with cardiology concerning his heart rate that was auscultated on last encounter. They checked his heart rhythm and thought it was appropriate. This was as via physician in [place]. They deny other changes to his health and/or medications except for the above since our last encounter. PAST MEDICAL HISTORY Diagnosis Date Arthritis Carotid stenosis Coronary artery disease Coronary atherosclerosis of unspecified type of vessel, white earth or graft 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 Dyslipidemia Hypertension Hypertension Hypothyroid Lumbar disc disease Unspecified hypothyroidism Hypothyroidism PAST SURGICAL HISTORY Procedure Laterality Date PAST SURGICAL HISTORY OF CABG times 6 left internal thoracic artery to the [id number]-ebfcfh left anterior descending artery, reverse saphenous vein [...] mouth onc (more content not included)... [facility] Telephone (NEUAV4) LEANNA NELSON ([id number]) 1940 M Date Time Provider Department 03/23/23 [...] he had any further question. 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 Encounter Status:Closed by TERRI SANTOS on 03/23/23 Normal [facility] Office Visiton 12-25-2022 Follow-up visit [id number] Leanna Nelson 1940 M Date Provider Department Center 12/25/2022 367-AYSE BARNES [facility] Lesli [facility] Family History Problem Relation Age of Onset Coronary artery disease Brother Heart attack Brother Heart failure Brother Other Brother Family Status - Relation Status Age at Brother Level of Service:30557 [place] OFFICE/OUTPATIENT ESTABLISHED MOD MDM 30-39 MIN Reason for Visit and Comments: Follow-up [551770] - 3 month follow up Normal [facility] CT CHEST WO CONon 10-27-2022 CT [...] by: LEATHA GAVIRIA Date: 2022-10-27 10:00 Normal [facility] LIPID PROFILEon 09-24-2022 CHOL-HDL RATIO NORM SEE BELOW Normal [facility] Comment on above: Result Comment: 3.3 - 4.4 LOW RISK 4.4 - 7.1 AVERAGE RISK 7.1 - 11.0 MODERATE RISK >11.0 HIGH RISK Performed By: #### L IPID, CMP ####[facility] [address] [place], [place] [address]WmBud Vásquez Cholesterol [Mass/Vol] 149 mg/dL Normal <=200 [facility] Comment on above: Performed By: #### L IPID, CMP ####[facility] [address] [place], [place] [address]QsBud Vásquez Cholesterol in HDL [Mass/Vol] 83 mg/dL Critically high 40-60 [facility] Comment on above: Performed By: #### L IPID, CMP ####[facility] [address] [place] [address]Dr. Aissatou Vásquez Cholesterol in LDL [Mass/Vol] 58.6 mg/dL Normal [facility] Comment on above: Performed By: #### L IPID, CMP ####[facility] [address] [place] [address]Dr. Aissatou Vásquez Cholesterol.total/Cho lesterol in HDL [Mass ratio] 1.8 {ratio} Normal [facility] Comment on above: Performed By: #### L IPID, CMP ####[facility] [address] [place] [address]Dr. Aissatou Vásquez HDL NORMAL > or = 60 mg/dl - LO W CARDIOVASCULAR RISK <40 mg/dl - HIGH CARDIOVASCULAR RISK Normal [facility] Comment on above: Performed By: #### L IPID, CMP ####[facility] [address] [place] [address]Dr. Aissatou Vásquez LDL CALC NORMAL SEE BELOW Normal [facility] Comment on above: Result Comment: <100 mg/dl OPTIMAL 100 - 129 mg/dl NEAR OR ABOVE OPTIMAL 130 - 159 mg/dl BORDERLINE HIGH 160 - 189 mg/dl HIGH >190 mg/dl VERY HIGH Performed By: #### L IPID, CMP ####[facility] [address] [place] [address]Dr. Aissatou Vásquez Triglyceride [Mass/Vol] 37 mg/dL Normal <=150 [facility] Comment on above: Performed By: #### L IPID, CMP ####[facility] [address] [place] [id number]. Aissatou Vásquez VLDL CALC 7.4 mg/dL Normal [facility] Comment on above: Performed By: #### L IPID, CMP ####[facility] [address] [place] [address]Dr. Aissatou Vásquez PROF 14(COMP METB)on 023 Albumin [Mass/Vol] 3.8 g/dL Normal 3.4-5.0 [facility] Comment on above: Performed By: #### L IPID, CMP ####[facility] [address] [place] [address]Dr. Aissatou Vásquez Albumin/Globulin [Mass ratio] 1.0 {ratio} Normal [facility] Comment on above: Performed By: #### L IPID, CMP ####[facility] [address] [place] [address]Dr. Aissatou Vásquez ALP [Catalytic activity/Vol] 98 U/L Normal 46-116 [facility] Comment on above: Performed By: #### L IPID, CMP ####[facility] [address] [place] [address]Dr. Aissatou Vásquez ALT [Catalytic activity/Vol] 25 U/L Normal 16-63 [facility] Comment on above: Performed By: #### L IPID, CMP ####[facility] [address] [place] [address]Dr. Aissatou Vásquez Anion gap [Moles/Vol] 15.5 mmol/L Normal [facility] Comment on above: Performed By: #### L IPID, CMP ####[facility] [address] [place] [address]Dr. Aissatou Vásquez AST [Catalytic activity/Vol] 21 U/L Normal 15-37 [facility] Comment on above: Performed By: #### L IPID, CMP ####[facility] [address] [place] [address]Dr. Aissatou Vásquez Bilirubin [Mass/Vol] 0.5 mg/dL Normal 0.2-1.0 [facility] Comment on above: Performed By: #### L IPID, CMP ####[facility] [address] [place] [address]Dr. Aissatou Vásquez Calcium [Mass/Vol] 9.5 mg/dL Normal 8.5-10.1 [facility] Comment on above: Performed By: #### L IPID, CMP ####[facility] [address] [place] [address]Dr. Aissatou Vásquez Chloride [Moles/Vol] 107 mmol/L Normal 98-107 [facility] Comment on above: Performed By: #### L IPID, CMP ####[facility] [address] [place], [place] [address]Dr. Aissatou Vásquez CO2 [Moles/Vol] 23.0 mmol/L Normal 21.0-32.0 [facility] Comment on above: Performed By: #### L IPID, CMP ####[facility] [address] [place], [place] [address]Dr. Aissatou Vásquez Creatinine [Mass/Vol] 1.75 mg/dL Critically high 0.70-1.30 [facility] Comment on above: Performed By: #### L IPID, CMP ####[facility] [address] [place], [place] [address]Dr. Aissatou Vásquez EGFR-AF SAMOAN 45 mL/min/1.73m2 Critically low >=60 [facility] Comment on above: Performed By: #### L IPID, CMP ####[facility] [address] [place], [place] [address]Dr. Aissatou Vásquez EGFR-NON AF SAMOAN 37 mL/min/1.73m2 Critically low >=60 [facility] Comment on above: Performed By: #### L IPID, CMP ####[facility] [address] [place], [place] [address]Dr. Aissatou Vásquez Globulin (S) [Mass/Vol] 3.7 g/dL Normal [facility] Comment on above: Performed By: #### L IPID, CMP ####[facility] [address] [place], [place] [address]Dr. Aissatou Vásquez Glucose [Mass/Vol] 83 mg/dL Normal 74-106 [facility] Comment on above: Performed By: #### L IPID, CMP ####[facility] [address] [place], [place] [address]Dr. Aissatou Vásquez Potassium [Moles/Vol] 4.5 mmol/L Normal 3.5-5.1 [facility] Comment on above: Performed By: #### L IPID, CMP ####[facility] [address] [place], [place] [address]Ct. Aissatou Vásquez Protein [Mass/Vol] 7.5 g/dL Normal 6.4-8.2 [facility] Comment on above: Performed By: #### L IPID, CMP ####[facility] [address] [place], [place] [address]Ns. Aissatou Vásquez Sodium [Moles/Vol] 141 mmol/L Normal 136-145 [facility] Comment on above: Performed By: #### L IPID, CMP ####[facility] [address] [place], [place] [address]Zd. Aissatou Vásquez Urea nitrogen [Mass/Vol] 46.0 mg/dL Critically high 7.0-18.0 [facility] Comment on above: Performed By: #### L IPID, CMP ####[facility] [address] [place], [place] [address]Uu. Aissatou Vásquez Urea nitrogen/Creatinine [Mass ratio] 26.3 mg/mg Normal [facility] Comment on above: Performed By: #### L IPID, CMP ####[facility] [address] [place], [place] [address]Lp. Aissatou Vásquez Office Visiton 09-22-2022 Follow-up visit [id number] Leanna Nelson 1940 M Date Provider Department Center 09/22/2022 Alexandrea-IRINEO BOSS [facility] No family history on file Level of Service:81043 [place] OFFICE/OUTPATIENT ESTABLISHED MOD MDM 30-39 MIN Reason for Visit and Comments: office visit [Other] - brother made appt had appt with neuro thought they heard something when listening to heart. confirmed Normal [facility] 25(OH)D3 [facility] 2022 25-hydroxyvitamin D3 [Mass/Vol] 28.6 ng/mL Low 31.0-80.0 [facility] Comment on above: Order Comment: Speci men Type: BLOOD SPECIMEN Ordering Facility: [facility] Address: [address] [place] [phone] Result Comment: Clas sification of 25 [place] Vitamin D status: Deficiency/Insufficiency: < or = 30 ng/ml. Sufficiency/Optimal Levels: 31-80 ng/mL Toxicity: > 100 ng/mL. Test performed by chemiluminescent immunoassay. Performed By: #### 1 989-3 #### [facility] CLIA [id number] [address] [place] [place] [address] [place] CNOVon 08-27-2022 CNOV Office Visit (NEUAV4 ) GOPILEANNA Torey ([id number]) 1940 M Date Time Provider Department 08/27/22 1:00 PM JODI BANERJEEAV4 During your visit today, we recorded the following information about you: Pulse Blood pressure 69/minute 156/70 Jodi Banerjee DO 08/27/2022 2:35 PM Addendum [facility] [place] New Patient Consultation August 27, 2022 HPI: [...] while there. They have been working with social services aide at the facility he is at but [...] Coronary atherosclerosis of unspecified type of vessel, white earth or graft 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 Dyslipidemia Hypertension Hypertension Hypothyroid Lumbar disc disease Unspecified hypothyroidism Hypothyroidism PAST SURGICAL HISTORY Procedure Laterality Date PAST SURGICAL HISTORY OF CABG times 6 left internal thoracic artery to the erm-hp-dwyjcw left anterior descending artery, reverse saphenous vein [...] on 08/07 (more content not included)... Normal [facility] Reagin and Treponema pallidu m IgG and IgM [Interp]on 08-27-2022 SYPHILIS INTERPRETATION Cannot exclude recent Treponemal infection if specimen collected within 7-10 days after appearance of suspect lesions or 2-3 weeks after an exposure. Clinical correlation is required. Normal [facility] Comment on above: Order Comment: Speci men Type: BLOOD SPECIMEN Ordering Facility: [facility] Address: [address] [place] [address] Performed By: #### 7 3752-8 #### [facility] CLIA [id number] [address] [place] [place] [address] [place] T. pallidum IgG+IgM IA Ql (S) Non-Reactive Normal Nonreactive [facility] Comment on above: Order Comment: Speci men Type: BLOOD SPECIMEN Ordering Facility: [facility] Address: [address] [address] Performed By: #### 7 3752-8 #### [facility] CLIA [id number] [facility] [place] [address] [place] CREATININEon 07-11-2022 Creatinine [Mass/Vol] 2.09 mg/dL Critically high 0.70-1.30 [facility] Comment on above: Performed By: #### C ADAM #### [facility] [address] [place] [address] [address] Aissatou Vásquez EGFR-AF SAMOAN 37 mL/min/1.73m2 Critically low >=60 [facility] Comment on above: Performed By: #### C ADAM #### [facility] [address] [place] [address] [address] Aissatou Vásquez EGFR-NON AF SAMOAN 30 mL/min/1.73m2 Critically low >=60 [facility] Comment on above: Performed By: #### C ADAM #### [facility] [address] [place] [address] [address] Aissatou Vásquez MRI BRAIN WO CONon [...] LEATHA GAVIRIA Date: 2022-07-11 15:11 Normal [facility] CULTURE BLOODon 07-10-2022 Microscopic examination of blood, [...] Tetracycline S P Tobramycin S P Normal [facility] Comment on above: Performed By: #### B LDCX2 ####[facility] [address] [place] [address]Dr. Aissatou Vásquez CBC AUTO DIFFon 07-04-2022 BASO # 0.0 103/ul Normal 0.0-0.1 [facility] Comment on above: Performed By: #### L DHARA WAITE, HSTROPN #### [facility] [address] [place] [address] [address] Aissatou Vásquez Basophils/100 WBC (Bld) 0.3 % Normal 0.2-2.0 [facility] Comment on above: Performed By: #### L DHARA WAITE, HSTROPN #### [facility] [address] [place] [address] [address] Aissatou Vásquez EO # 0.0 103/ul Normal 0.0-0.7 [facility] Comment on above: Performed By: #### L DHARA WAITE, HSTROPN #### [facility] [address] [place] [address] [address] Aissatou Vásquez Eosinophils/100 WBC (Bld) 0.6 % Critically low 0.9-7.0 [facility] Comment on above: Performed By: #### L DHARA WAITE, HSTROPN #### [facility] [address] [place] [address] [address] Aissatou Vásquez Erythrocyte distribution width (RBC) [Ratio] 13.7 % Normal 11.0-15.0 [facility] Comment on above: Performed By: #### L DHARA WAITE, HSTROPN #### [facility] [address] [place] [address] [address] Aissatou Vásquez Hematocrit (Bld) [Volume fraction] 34.2 % Critically low 42.0-54.0 [facility] Comment on above: Performed By: #### L IVER, BMP, HSTROPN #### [facility] [address] [place] [address] Dr. Aissatou Vásquez Hemoglobin (Bld) [Mass/Vol] 10.7 g/dL Critically low 14.0-18.0 [facility] Comment on above: Performed By: #### L IVER, BMP, HSTROPN #### [facility] [address] [place] [address] Dr. Aissatou Vásquez IG # 0.02 10e3/ul Normal 0.00-0.03 [facility] Comment on above: Performed By: #### L IVER, BMP, HSTROPN #### [facility] [address] [place] [address] Dr. Aissatou Vásquez IG % 0.3 % Normal 0.0-0.5 [facility] Comment on above: Performed By: #### L IVER, BMP, HSTROPN #### [facility] [address] [place] [address] Dr. Aissatou Vásquez LYMPH # 1.7 103/ul Normal 1.2-3.8 [facility] Comment on above: Performed By: #### L IVER, BMP, HSTROPN #### [facility] [address] [place] [address] Dr. Aissatou Vásquez Lymphocytes/100 WBC (Bld) 25.6 % Normal 20.5-60.0 [facility] Comment on above: Performed By: #### L IVER, BMP, HSTROPN #### [facility] [address] [place] [address] Dr. Aissatou Vásquez MANUAL DIFF REQ NO Normal [facility] Comment on above: Performed By: #### L IVER, BMP, HSTROPN #### [facility] [address] [place] [address] Dr. Aissatou Vásquez MCH (RBC) [Entitic mass] 29.6 pg Normal 25.9-34.0 [facility] Comment on above: Performed By: #### L IVER, BMP, HSTROPN #### [facility] [address] [place] [address] Dr. Aissatou Vásquez MCHC (RBC) [Mass/Vol] 31.3 g/dL Normal 29.9-35.2 [facility] Comment on above: Performed By: #### L IVER, BMP, HSTROPN #### [facility] [address] [place] [address] Dr. Aissatou Vásquez MCV (RBC) [Entitic vol] 94.5 fL Critically high 80.0-94.0 [facility] Comment on above: Performed By: #### L IVER, BMP, HSTROPN #### [facility] [address] [place] [address] Dr. Aissatou Vásquez MONO # 0.7 103/ul Normal 0.3-0.8 [facility] Comment on above: Performed By: #### L IVER, BMP, HSTROPN #### [facility] [address] [place] [address] Dr. Aissatou Vásquez Monocytes/100 WBC (Bld) 11.2 % Normal 1.7-12.0 [facility] Comment on above: Performed By: #### L IVER, BMP, HSTROPN #### [facility] [address] [place] [address] Dr. Aissatou Vásquez NEUT # 4.0 103/ul Normal 1.4-6.5 [facility] Comment on above: Performed By: #### L IVER, BMP, HSTROPN #### [facility] [address] [place] [address] Dr. Aissatou Vásquez Neutrophils/100 WBC (Bld) 62.0 % Normal 43.0-75.0 [facility] Comment on above: Performed By: #### L IVER, BMP, HSTROPN #### [facility] [address] [place] [address] Dr. Aissatou Vásquez Platelet mean volume (Bld) [Entitic vol] 10.4 fL Normal 9.5-13.5 [facility] Comment on above: Performed By: #### L IVER, BMP, HSTROPN #### [facility] [address] [place] [address] [address] Aissatou Vásquez PLT 134 103/ul Critically low 150-450 [facility] Comment on above: Performed By: #### L IVER, BMP, HSTROPN #### [facility] [address] [place] [address] [address] Aissatou Vásquez RBC 3.62 106/ul Critically low 4.70-6.10 [facility] Comment on above: Performed By: #### L IVER, BMP, HSTROPN #### [facility] [address] [address] [address] Aissatou Vásquez WBC 6.5 103/ul Normal 4.0-11.0 [facility] Comment on above: Performed By: #### L IVER, BMP, HSTROPN #### [facility] [address] [place] [address] Dr. Aissatou Vásquez CPKon 07-04-2022 CK [Catalytic activity/Vol] 149 U/L Normal 39-308 [facility] Comment on above: Performed By: #### L IVER, BMP, HSTROPN #### [facility] [address] [address] [address] Aissatou Vásquez MAGNESIUMon 07-04-2022 Magnesium [Mass/Vol] 1.7 mg/dL Critically low 1.8-2.4 [facility] Comment on above: Performed By: #### L IVER, BMP, HSTROPN #### [facility] [address] [address] [address] Aissatou Vásquez PHOSPHORUSon 07-04-2022 Phosphate [Mass/Vol] 3.6 mg/dL Normal 2.6-4.7 [facility] Comment on above: Performed By: #### L IVER, BMP, HSTROPN #### [facility] [address] [place] [address] Dr. Aissatou Vásquez PROF 14(COMP METB)on Albumin [Mass/Vol] 2.8 g/dL Critically low 3.4-5.0 [facility] Comment on above: Performed By: #### L IVER, BMP, HSTROPN #### [facility] [address] [address] [address] Aissatou Vásquez Albumin/Globulin [Mass ratio] 0.9 {ratio} Normal [facility] Comment on above: Performed By: #### L IVER, BMP, HSTROPN #### [facility] [address] [place] [address] Dr. Aissatou Vásquez ALP [Catalytic activity/Vol] 86 U/L Normal 46-116 [facility] Comment on above: Performed By: #### L IVER, BMP, HSTROPN #### [facility] [address] [place] [address] Dr. Aissatou Vásquez ALT [Catalytic activity/Vol] 50 U/L Normal 16-63 [facility] Comment on above: Performed By: #### L IVER, BMP, HSTROPN #### [facility] [address] [place] [address] Dr. Aissatou Vásquez Anion gap [Moles/Vol] 11.6 mmol/L Normal [facility] Comment on above: Performed By: #### L IVER, BMP, HSTROPN #### [facility] [address] [place] [address] Dr. Aissatou Vásquez AST [Catalytic activity/Vol] 41 U/L Critically high 15-37 [facility] Comment on above: Performed By: #### L IVER, BMP, HSTROPN #### [facility] [address] [place] [address] Dr. Aissatou Vásquez Bilirubin [Mass/Vol] 0.4 mg/dL Normal 0.2-1.0 [facility] Comment on above: Performed By: #### L IVER, BMP, HSTROPN #### [facility] [address] [place] [address] Dr. Aissatou Vásquez Calcium [Mass/Vol] 8.7 mg/dL Normal 8.5-10.1 [facility] Comment on above: Performed By: #### L IVER, BMP, HSTROPN #### [facility] [address] [place] [address] Dr. Aissatou Vásquez Chloride [Moles/Vol] 106 mmol/L Normal 98-107 [facility] Comment on above: Performed By: #### L IVER, BMP, HSTROPN #### [facility] [address] [place] [address] Dr. Aissatou Vásquez CO2 [Moles/Vol] 27.0 mmol/L Normal 21.0-32.0 [facility] Comment on above: Performed By: #### L IVER, BMP, HSTROPN #### [facility] [address] [place] [address] Dr. Aissatou Vásquez Creatinine [Mass/Vol] 1.99 mg/dL Critically high 0.70-1.30 [facility] Comment on above: Performed By: #### L IVER, BMP, HSTROPN #### [facility] [address] [place] [address] Dr. Aissatou Vásquez EGFR-AF SAMOAN 39 mL/min/1.73m2 Critically low >=60 [facility] Comment on above: Performed By: #### L IVER, BMP, HSTROPN #### [facility] [address] [place] [address] Dr. Aissatou Vásquez EGFR-NON AF SAMOAN 32 mL/min/1.73m2 Critically low >=60 [facility] Comment on above: Performed By: #### L IVER, BMP, HSTROPN #### [facility] [address] [place] [address] Dr. Aissatou Vásquez Globulin (S) [Mass/Vol] 3.1 g/dL Normal [facility] Comment on above: Performed By: #### L IVER, BMP, HSTROPN #### [facility] [address] [place] [address] Dr. Aissatou Vásquez Glucose [Mass/Vol] 93 mg/dL Normal 74-106 [facility] Comment on above: Performed By: #### L IVER, BMP, HSTROPN #### [facility] [address] [place] [address] Dr. Aissatou Vásquez Potassium [Moles/Vol] 4.6 mmol/L Normal 3.5-5.1 [facility] Comment on above: Performed By: #### L DHARA WAITE, HSTROPN #### [facility] [address] [address] [address] Aissatou Vásquez Protein [Mass/Vol] 5.9 g/dL Critically low 6.4-8.2 [facility] Comment on above: Performed By: #### L IVDHARA LANDRY, HSTROPN #### [facility] [address] [address] [address] Aissatou Vásquez Sodium [Moles/Vol] 140 mmol/L Normal 136-145 [facility] Comment on above: Performed By: #### L IVDHARA LANDRY, HSTROPN #### [facility] [address] [address] [address] Aissatou Vásquez Urea nitrogen [Mass/Vol] 50.0 mg/dL Critically high 7.0-18.0 [facility] Comment on above: Performed By: #### L IVDHARA LANDRY, HSTROPN #### [facility] [address] [address] [address] Aissatou Vásquez Urea nitrogen/Creatinine [Mass ratio] 25.1 mg/mg Normal [facility] Comment on above: Performed By: #### L DHARA WAITE, HSTROPN #### [facility] [address] [address] [address] Aissatou Vásquez PROTIMEon 07-04-2022 INR Coag (PPP) [Relative time] 1.05 {INR} Normal [facility] Comment on above: Performed By: #### C ADAM #### [facility] [address] [address] [address] Aissatou Vásquez INR GUIDELINES SEE BELOW Normal [facility] Comment on above: Result Comment: ELISABETH RED INR: 2.0 - 3.0 CONDITIONS NOT LISTED BELOW 2.5 - 3.5 FOR PROSTHETIC HEART VALVE REPLACEMENT 2.5 - 3.5 RECURRENT THROMBOSIS Performed By: #### C ADAM #### [facility] [address] [place] [address] Dr. Aissatou Vásquez PT Coag (PPP) [Time] 11.3 s Normal 9.0-11.6 [facility] Comment on above: Performed By: #### C ADAM #### [facility] [address] [place] [address] Dr. Aissatou Vásquez CBC AUTO DIFFon 07-03-2022 BASO # 0.0 103/ul Normal 0.0-0.1 [facility] Comment on above: Performed By: #### L IVER, BMP, HSTROPN #### [facility] [address] [place] [address] Dr. Aissatou Vásquez Basophils/100 WBC (Bld) 0.3 % Normal 0.2-2.0 [facility] Comment on above: Performed By: #### L IVER, BMP, HSTROPN #### [facility] [address] [place] [address] Dr. Aissatou Vásquez EO # 0.0 103/ul Normal 0.0-0.7 [facility] Comment on above: Performed By: #### L IVER, BMP, HSTROPN #### [facility] [address] [place] [address] Dr. Aissatou Vásquez Eosinophils/100 WBC (Bld) 0.3 % Critically low 0.9-7.0 [facility] Comment on above: Performed By: #### L IVER, BMP, HSTROPN #### [facility] [address] [place] [address] Dr. Aissatou Vásquez Erythrocyte distribution width (RBC) [Ratio] 13.8 % Normal 11.0-15.0 [facility] Comment on above: Performed By: #### L IVER, BMP, HSTROPN #### [facility] [address] [place] [address] Dr. Aissatou Vásquez Hematocrit (Bld) [Volume fraction] 31.7 % Critically low 42.0-54.0 [facility] Comment on above: Performed By: #### L IVER, BMP, HSTROPN #### [facility] [address] [place] [address] Dr. Aissatou Vásquez Hemoglobin (Bld) [Mass/Vol] 10.2 g/dL Critically low 14.0-18.0 [facility] Comment on above: Performed By: #### L IVER, BMP, HSTROPN #### [facility] [address] [address] [address] Aissatou Vásquez IG # 0.02 10e3/ul Normal 0.00-0.03 [facility] Comment on above: Performed By: #### L IVER, BMP, HSTROPN #### [facility] [address] [place] [address] Dr. Aissatou Vásquez IG % 0.3 % Normal 0.0-0.5 [facility] Comment on above: Performed By: #### L IVER, BMP, HSTROPN #### [facility] [address] [place] [address] Dr. Aissatou Vásquez LYMPH # 1.5 103/ul Normal 1.2-3.8 [facility] Comment on above: Performed By: #### L IVER, BMP, HSTROPN #### [facility] [address] [place] [address] Dr. Aissatou Vásquez Lymphocytes/100 WBC (Bld) 20.3 % Critically low 20.5-60.0 [facility] Comment on above: Performed By: #### L IVER, BMP, HSTROPN #### [facility] [address] [place] [address] Dr. Aissatou Vásquez MANUAL DIFF REQ NO Normal [facility] Comment on above: Performed By: #### L IVER, BMP, HSTROPN #### [facility] [address] [place] [address] Dr. Aissatou Vásquez MCH (RBC) [Entitic mass] 30.3 pg Normal 25.9-34.0 [facility] Comment on above: Performed By: #### L IVER, BMP, HSTROPN #### [facility] [address] [place] [address] Dr. Aissatou Vásquez MCHC (RBC) [Mass/Vol] 32.2 g/dL Normal 29.9-35.2 [facility] Comment on above: Performed By: #### L IVER, BMP, HSTROPN #### [facility] [address] [place] [address] Dr. Aissatou Vásquez MCV (RBC) [Entitic vol] 94.1 fL Critically high 80.0-94.0 [facility] Comment on above: Performed By: #### L IVER, BMP, HSTROPN #### [facility] [address] [place] [address] Dr. Aissatou Vásquez MONO # 0.7 103/ul Normal 0.3-0.8 [facility] Comment on above: Performed By: #### L IVER, BMP, HSTROPN #### [facility] [address] [place] [address] Dr. Aissatou Vásquez Monocytes/100 WBC (Bld) 9.9 % Normal 1.7-12.0 [facility] Comment on above: Performed By: #### L IVER, BMP, HSTROPN #### [facility] [address] [place] [address] Dr. Aissatou Vásquez NEUT # 4.9 103/ul Normal 1.4-6.5 [facility] Comment on above: Performed By: #### L IVER, BMP, HSTROPN #### [facility] [address] [place] [address] Dr. Aissatou Vásquez Neutrophils/100 WBC (Bld) 68.9 % Normal 43.0-75.0 [facility] Comment on above: Performed By: #### L IVER, BMP, HSTROPN #### [facility] [address] [place] [address] Dr. Aissatou Vásquez Platelet mean volume (Bld) [Entitic vol] 10.7 fL Normal 9.5-13.5 [facility] Comment on above: Performed By: #### L IVER, BMP, HSTROPN #### [facility] [address] [place] [address] Dr. Aissatou Vásquez PLT 141 103/ul Critically low 150-450 [facility] Comment on above: Performed By: #### L IVER, BMP, HSTROPN #### [facility] [address] [address] [address] Aissatou Vásquez RBC 3.37 106/ul Critically low 4.70-6.10 [facility] Comment on above: Performed By: #### L IVER, BMP, HSTROPN #### [facility] [address] [address] [address] Aissatou Vásquez WBC 7.1 103/ul Normal 4.0-11.0 [facility] Comment on above: Performed By: #### L IVER, BMP, HSTROPN #### [facility] [address] [address] [address] Aissatou Vásquez CPKon 07-03-2022 CK [Catalytic activity/Vol] 331 U/L Critically high 39-308 [facility] Comment on above: Performed By: #### L IVER, BMP, HSTROPN #### [facility] [address] [address] [address] Aissatou Vásquez CT ABD/PELVIS WO CONon [...] STEPHEN ROUSE Date: 2022-07-03 11:06 Normal [facility] CULTURE BLOODon 07-03-2022 Microscopic examination of blood, culture Culture Observations: NO GROWTH AT 5 DAYS. Normal [facility] Comment on above: Performed By: #### B LDCX2 ####[facility] [address] [address]Dr. Aissatou Vásquez Microscopic examination of blood, culture Culture Observations: NO GROWTH AT 5 DAYS. Normal [facility] Comment on above: Performed By: #### B LDCX1 ####[facility] [address] [address]Dr. Aissatou Vásquez MAGNESIUMon 07-03-2022 Magnesium [Mass/Vol] 1.8 mg/dL Normal 1.8-2.4 [facility] Comment on above: Performed By: #### DHARA KONG HSTROPN #### [facility] [address] [address] [address] Aissatou Vásquez PHOSPHORUSon 07-03-2022 Phosphate [Mass/Vol] 4.0 mg/dL Normal 2.6-4.7 [facility] Comment on above: Performed By: #### DHARA KONG HSTROPN #### [facility] [address] [address] [address] Aissatou Vásquez POINT OF CARE GLUCOSEon 06-06 Glucose [Mass/Vol] 77 mg/dL Normal 74-106 [facility] Comment on above: Performed By: #### Soni ADAM #### [facility] [address] [address] [address] Aissatou Vásquez PROF 14(COMP METB)on 022 Albumin [Mass/Vol] 2.6 g/dL Critically low 3.4-5.0 [facility] Comment on above: Performed By: #### L IVER, BMP, HSTROPN #### [facility] [address] [address] [address] Aissatou Vásquez Albumin/Globulin [Mass ratio] 0.9 {ratio} Normal [facility] Comment on above: Performed By: #### L IVER, BMP, HSTROPN #### [facility] [address] [address] [address] Aissatou Vásquez ALP [Catalytic activity/Vol] 81 U/L Normal 46-116 [facility] Comment on above: Performed By: #### L IVER, BMP, HSTROPN #### [facility] [address] [place] [address] Dr. Aissatou Vásquez ALT [Catalytic activity/Vol] 46 U/L Normal 16-63 [facility] Comment on above: Performed By: #### L IVER, BMP, HSTROPN #### [facility] [address] [place] [address] Dr. Aissatou Vásquez Anion gap [Moles/Vol] 11.9 mmol/L Normal [facility] Comment on above: Performed By: #### L IVER, BMP, HSTROPN #### [facility] [address] [place] [address] Dr. Aissatou Vásquez AST [Catalytic activity/Vol] 45 U/L Critically high 15-37 [facility] Comment on above: Performed By: #### L IVER, BMP, HSTROPN #### [facility] [address] [address] [address] Aissatou Vásquez Bilirubin [Mass/Vol] 0.2 mg/dL Normal 0.2-1.0 [facility] Comment on above: Performed By: #### L IVER, BMP, HSTROPN #### [facility] [address] [place] [address] Dr. Aissatou Vásquez Calcium [Mass/Vol] 8.5 mg/dL Normal 8.5-10.1 [facility] Comment on above: Performed By: #### L IVER, BMP, HSTROPN #### [facility] [address] [address] [address] Aissatou Vásquez Chloride [Moles/Vol] 108 mmol/L Critically high 98-107 [facility] Comment on above: Performed By: #### L IVER, BMP, HSTROPN #### [facility] [address] [address] [address] Aissatou Vásquez CO2 [Moles/Vol] 25.9 mmol/L Normal 21.0-32.0 [facility] Comment on above: Performed By: #### L IVER, BMP, HSTROPN #### [facility] [address] [place] [address] Dr. Aissatou Vásquez Creatinine [Mass/Vol] 2.34 mg/dL Critically high 0.70-1.30 [facility] Comment on above: Performed By: #### L IVER, BMP, HSTROPN #### [facility] [address] [place] [address] Dr. Aissatou Vásquez EGFR-AF SAMOAN 32 mL/min/1.73m2 Critically low >=60 [facility] Comment on above: Performed By: #### L IVER, BMP, HSTROPN #### [facility] [address] [place] [address] Dr. Aissatou Vásquez EGFR-NON AF SAMOAN 27 mL/min/1.73m2 Critically low >=60 [facility] Comment on above: Performed By: #### L IVER, BMP, HSTROPN #### [facility] [address] [address] [address] Aissatou Vásquez Globulin (S) [Mass/Vol] 3.0 g/dL Normal [facility] Comment on above: Performed By: #### L IVER, BMP, HSTROPN #### [facility] [address] [place] [address] Dr. Aissatuo Vásquez Glucose [Mass/Vol] 93 mg/dL Normal 74-106 [facility] Comment on above: Performed By: #### L IVER, BMP, HSTROPN #### [facility] [address] [place] [address] Dr. Aissatou Vásquez Potassium [Moles/Vol] 4.8 mmol/L Normal 3.5-5.1 [facility] Comment on above: Performed By: #### L IVDHARA LANDRY, HSTROPN #### [facility] [address] [address] [address] Aissatuo Vásquez Protein [Mass/Vol] 5.6 g/dL Critically low 6.4-8.2 [facility] Comment on above: Performed By: #### L IVFRANTZ BMP, HSTROPN #### [facility] [address] [address] [address] Aissatou Vásquez Sodium [Moles/Vol] 141 mmol/L Normal 136-145 [facility] Comment on above: Performed By: #### L IVFRANTZ BMP, HSTROPN #### [facility] [address] [place] [address] Dr. Aissatou Vásquez Urea nitrogen [Mass/Vol] 61.0 mg/dL Critically high 7.0-18.0 [facility] Comment on above: Performed By: #### L IVDHARA LANDRY, HSTROPN #### [facility] [address] [place] [address] Dr. Aissatou Vásquez Urea nitrogen/Creatinine [Mass ratio] 26.1 mg/mg Normal [facility] Comment on above: Performed By: #### L IVDHARA LANDRY, HSTROPN #### [facility] [address] [place] [address] Dr. Aissatou Vásquez PROTIMEon 07-03-2022 INR Coag (PPP) [Relative time] 1.12 {INR} Normal [facility] Comment on above: Performed By: #### C ADAM #### [facility] [address] [place] [address] Dr. Aissatou Vásquez INR GUIDELINES SEE BELOW Normal [facility] Comment on above: Result Comment: ELISABETH RED INR: 2.0 - 3.0 CONDITIONS NOT LISTED BELOW 2.5 - 3.5 FOR PROSTHETIC HEART VALVE REPLACEMENT 2.5 - 3.5 RECURRENT THROMBOSIS Performed By: #### C ADAM #### [facility] [address] [address] [address] Aissatou Vásquez PT Coag (PPP) [Time] 12.0 s Critically high 9.0-11.6 [facility] Comment on above: Performed By: #### C ADAM #### [facility] [address] [address] [address] Aissatou Vásquez CBC AUTO DIFFon 07-02-2022 BASO # 0.0 103/ul Normal 0.0-0.1 [facility] Comment on above: Performed By: #### C BC ####[facility] [address] [address]DrBud Vásquez Basophils/100 WBC (Bld) 0.1 % Critically low 0.2-2.0 [facility] Comment on above: Performed By: #### C BC ####[facility] [address] [place], [place] [address]Dr. Aissatou Vásquez EO # 0.0 103/ul Normal 0.0-0.7 [facility] Comment on above: Performed By: #### C BC ####[facility] [address] [address]Dr. Aissatou Vásquez Eosinophils/100 WBC (Bld) 0.0 % Critically low 0.9-7.0 [facility] Comment on above: Performed By: #### C BC ####[facility] [address] [place], [place] [address]DrBud Vásquez Erythrocyte distribution width (RBC) [Ratio] 13.4 % Normal 11.0-15.0 [facility] Comment on above: Performed By: #### C BC ####[facility] [address] [place], [place] [address]Dr. Aissatou Vásquez Hematocrit (Bld) [Volume fraction] 39.9 % Critically low 42.0-54.0 [facility] Comment on above: Performed By: #### C BC ####[facility] [address] [place], [place] [address]DrBud Vásquez Hemoglobin (Bld) [Mass/Vol] 12.8 g/dL Critically low 14.0-18.0 [facility] Comment on above: Performed By: #### C BC ####[facility] [address] [id number]. Sheysarah Vásquez IG # 0.05 10e3/ul Critically high 0.00-0.03 [facility] Comment on above: Performed By: #### C BC ####[facility] [address] [id number]. Aissatou Vásquez IG % 0.4 % Normal 0.0-0.5 [facility] Comment on above: Performed By: #### C BC ####[facility] [address] [address]Dr. Aissatou Vásquez LYMPH # 0.8 103/ul Critically low 1.2-3.8 [facility] Comment on above: Performed By: #### C BC ####[facility] [address] [address]Dr. Aissatou Vásquez Lymphocytes/100 WBC (Bld) 7.2 % Critically low 20.5-60.0 [facility] Comment on above: Performed By: #### C BC ####[facility] [address] [address]Dr. Aissatou Vásquez MANUAL DIFF REQ NO Normal [facility] Comment on above: Performed By: #### C BC ####[facility] [address] [id number]. Aissatou Vásquez MCH (RBC) [Entitic mass] 30.0 pg Normal 25.9-34.0 [facility] Comment on above: Performed By: #### C BC ####[facility] [address] [id number]. Aissatou Vásquez MCHC (RBC) [Mass/Vol] 32.1 g/dL Normal 29.9-35.2 [facility] Comment on above: Performed By: #### C BC ####[facility] [address] [address]Dr. Aissatou Vásquez MCV (RBC) [Entitic vol] 93.7 fL Normal 80.0-94.0 [facility] Comment on above: Performed By: #### C BC ####[facility] [address] [id number]. Aissatou Vásquez MONO # 0.8 103/ul Normal 0.3-0.8 [facility] Comment on above: Performed By: #### C BC ####[facility] [address] [id number]. Aissatou Vásquez Monocytes/100 WBC (Bld) 6.8 % Normal 1.7-12.0 [facility] Comment on above: Performed By: #### C BC ####[facility] [address] [id number]. Aissatou Vásquez NEUT # 9.8 103/ul Critically high 1.4-6.5 [facility] Comment on above: Performed By: #### C BC ####[facility] [address] [address]Dr. Aissatou Vásquez Neutrophils/100 WBC (Bld) 85.5 % Critically high 43.0-75.0 [facility] Comment on above: Performed By: #### C BC ####[facility] [address] [id number]. Aissatou Vásquez Platelet mean volume (Bld) [Entitic vol] 10.8 fL Normal 9.5-13.5 [facility] Comment on above: Performed By: #### C BC ####[facility] [address] [id number]. Aissatou Vásquez PLT 170 103/ul Normal 150-450 [facility] Comment on above: Performed By: #### C BC ####[facility] [address] [id number]. Aissatou Vásquez RBC 4.26 106/ul Critically low 4.70-6.10 [facility] Comment on above: Performed By: #### C BC ####[facility] [address] [id number]. Aissatou Vásquez WBC 11.4 103/ul Critically high 4.0-11.0 [facility] Comment on above: Performed By: #### C BC ####[facility] [address] [place], [place] [address]GfDr. Aissatou Vásquez CKMBon 07-02-2022 CK.MB [Mass/Vol] 80.91 ng/mL Critically high <=3.60 Th e [facility] Comment on above: Performed By: #### L IVER, BMP, HSTROPN #### [facility] [address] [place], [place] [address] Dr. Aissatou Vásquez CPKon 07-02-2022 CK [Catalytic activity/Vol] 915 U/L Critically high 39-308 [facility] Comment on above: Performed By: #### L IVER, BMP, HSTROPN #### [facility] [address] [place], [place] [address] Dr. Aissatou Vásquez ECHOCARDIO M/2D COMPLETEon 1 09-02-2021 ECHOCARDIO M/2D COMPLETE Patient: LEANNA NELSON Exam Date: 07/02/2022 : 1940 Gender:M Ordering : SHAIKH Delphine RODRIGUEZ . Admission #: [id number] Family : DR PIPE HOPKINS . Order #: [id number] CLICK HERE TO VIEW EXAM ECHOCARDIOGRAM REPORT [...] Cameron M.D. on 07/08/2022 at 09:55 Normal [facility] MAGNESIUMon 07-02-2022 Magnesium [Mass/Vol] 1.9 mg/dL Normal 1.8-2.4 [facility] Comment on above: Performed By: #### L DHARA WAITE, HSTROPN #### [facility] [address] [address] [address] Aissatou Vásquez MYOGLOBINon 07-02-2022 SARAH 1312 ng/mL Critically high 16-96 [facility] Comment on above: Performed By: #### L DHARA WAITE, HSTROPN #### [facility] [address] [address] [address] Aissatou Vásquez PHOSPHORUSon 07-02-2022 Phosphate [Mass/Vol] 6.0 mg/dL Critically high 2.6-4.7 [facility] Comment on above: Performed By: #### L DHARA WAITE, HSTROPN #### [facility] [address] [address] [address] Aissatou Vásquez POINT OF CARE GLUCOSEon 06-06 Glucose [Mass/Vol] 78 mg/dL Normal 74-106 [facility] Comment on above: Performed By: #### C ADAM #### [facility] [address] [address] [address] Aissatou Vásquez Glucose [Mass/Vol] 104 mg/dL Normal 74-106 [facility] Comment on above: Performed By: #### P OCGLUC ####[facility] [address] [address]Dr. Aissatou Vásquez Glucose [Mass/Vol] 83 mg/dL Normal 74-106 [facility] Comment on above: Performed By: #### L IVER, BMP, HSTROPN #### [facility] [address] [address] [address] Aissatou Vásquez Glucose [Mass/Vol] 100 mg/dL Normal 74-106 [facility] Comment on above: Performed By: #### C ADAM #### [facility] [address] [address] [address] Aissatou Vásquez Glucose [Mass/Vol] 73 mg/dL Critically low 74-106 [facility] Comment on above: Performed By: #### P OCGLUC ####[facility] [address] [address]Dr. Aissatou Vásquez PROF 14(COMP METB)on 022 Albumin [Mass/Vol] 3.3 g/dL Critically low 3.4-5.0 [facility] Comment on above: Performed By: #### L IVER, BMP, HSTROPN #### [facility] [address] [address] [address] Aissatou Vásquez Albumin/Globulin [Mass ratio] 1.0 {ratio} Normal [facility] Comment on above: Performed By: #### L IVER, BMP, HSTROPN #### [facility] [address] [address] [address] Aissatou Vásquez ALP [Catalytic activity/Vol] 114 U/L Normal 46-116 [facility] Comment on above: Performed By: #### L IVER, BMP, HSTROPN #### [facility] [address] [address] [address] Aissatou Vásquez ALT [Catalytic activity/Vol] 48 U/L Normal 16-63 [facility] Comment on above: Performed By: #### L IVER, BMP, HSTROPN #### [facility] [address] [address] [address] Aissatou Vásquez Anion gap [Moles/Vol] 17.3 mmol/L Normal [facility] Comment on above: Performed By: #### L IVER, BMP, HSTROPN #### [facility] [address] [place] [address] Dr. Aissatou Vásquez AST [Catalytic activity/Vol] 68 U/L Critically high 15-37 [facility] Comment on above: Performed By: #### L IVER, BMP, HSTROPN #### [facility] [address] [address] [address] Aissatou Vásquez Bilirubin [Mass/Vol] 0.5 mg/dL Normal 0.2-1.0 [facility] Comment on above: Performed By: #### L IVER, BMP, HSTROPN #### [facility] [address] [place] [address] Dr. Aissatou Vásquez Calcium [Mass/Vol] 8.9 mg/dL Normal 8.5-10.1 [facility] Comment on above: Performed By: #### L IVER, BMP, HSTROPN #### [facility] [address] [place] [address] Dr. Aissatou Vásquez Chloride [Moles/Vol] 109 mmol/L Critically high 98-107 [facility] Comment on above: Performed By: #### L IVER, BMP, HSTROPN #### [facility] [address] [address] [address] Aissatou Vásquez CO2 [Moles/Vol] 22.8 mmol/L Normal 21.0-32.0 [facility] Comment on above: Performed By: #### L IVER, BMP, HSTROPN #### [facility] [address] [place] [address] Dr. Aissatou Vásquez Creatinine [Mass/Vol] 1.89 mg/dL Critically high 0.70-1.30 [facility] Comment on above: Performed By: #### L IVER, BMP, HSTROPN #### [facility] [address] [place] [address] Dr. Aissatou Vásquez EGFR-AF SAMOAN 41 mL/min/1.73m2 Critically low >=60 [facility] Comment on above: Result Comment: Prev iously reported as: (blank) On 07/02/2022 05:50 By KD3 Performed By: #### L IVER, BMP, HSTROPN #### [facility] [address] [address] [address] Aissatou Vásquez EGFR-NON AF SAMOAN 34 mL/min/1.73m2 Critically low >=60 [facility] Comment on above: Result Comment: Prev iously reported as: (blank) On 07/02/2022 05:50 By KD3 Performed By: #### L IVER, BMP, HSTROPN #### [facility] [address] [address] [address] Aissatou Vásquez Globulin (S) [Mass/Vol] 3.4 g/dL Normal [facility] Comment on above: Performed By: #### L IVER, BMP, HSTROPN #### [facility] [address] [place] [address] Dr. Aissatou Vásquez Glucose [Mass/Vol] 86 mg/dL Normal 74-106 [facility] Comment on above: Performed By: #### L IVER, BMP, HSTROPN #### [facility] [address] [place] [address] Dr. Aissatou Vásquez Potassium [Moles/Vol] 5.1 mmol/L Normal 3.5-5.1 [facility] Comment on above: Performed By: #### L IVER, BMP, HSTROPN #### [facility] [address] [address] [address] Aissatou Vásquez Protein [Mass/Vol] 6.7 g/dL Normal 6.4-8.2 [facility] Comment on above: Performed By: #### L IVER, BMP, HSTROPN #### [facility] [address] [address] [address] Aissatou Vásquez Sodium [Moles/Vol] 144 mmol/L Normal 136-145 [facility] Comment on above: Performed By: #### L IVER, BMP, HSTROPN #### [facility] [address] [place] [address] Dr. Aissatou Vásquez Urea nitrogen [Mass/Vol] 55.0 mg/dL Critically high 7.0-18.0 [facility] Comment on above: Performed By: #### L IVER, BMP, HSTROPN #### [facility] [address] [address] [address] Aissatou Vásquez Urea nitrogen/Creatinine [Mass ratio] 29.1 mg/mg Normal [facility] Comment on above: Performed By: #### L IVER, BMP, HSTROPN #### [facility] [address] [address] [address] Aissatou Vásquez PROTIMEon 07-02-2022 INR Coag (PPP) [Relative time] 1.13 {INR} Normal [facility] Comment on above: Performed By: #### L IVER, BMP, HSTROPN #### [facility] [address] [place] [address] Dr. Aissatou Vásquez INR GUIDELINES SEE BELOW Normal [facility] Comment on above: Result Comment: ELISABETH RED INR: 2.0 - 3.0 CONDITIONS NOT LISTED BELOW 2.5 - 3.5 FOR PROSTHETIC HEART VALVE REPLACEMENT 2.5 - 3.5 RECURRENT THROMBOSIS Performed By: #### L IVER, BMP, HSTROPN #### [facility] [address] [place] [address] Dr. Aissatou Vásquez PT Coag (PPP) [Time] 12.1 s Critically high 9.0-11.6 [facility] Comment on above: Performed By: #### L IVER, BMP, HSTROPN #### [facility] [address] [place] [address] Dr. Aissatou Vásquez BLOOD CULTURE ID PANELon A. baumannii Not detected Normal NOT DETECTED [facility] Comment on above: Performed By: #### C ADAM #### [facility] [address] [place] [address] Dr. Aissatou Vásquez Bacteriodes fragilis Not detected Normal NOT DETECTED [facility] Comment on above: Performed By: #### C ADAM #### [facility] [address] [place] [address] Dr. Aissatou Vásquez BCID CONTROLS PASSED Normal [facility] Comment on above: Performed By: #### C ADAM #### [facility] [address] [place] [address] Dr. Aissatou Vásquez BCIDBTHD BLOOD CULTURE BOTTLE INFORMATION [facility] Comment on above: Performed By: #### C ADAM #### [facility] [address] [place] [address] Dr. Aissatou Vásquez BCIDHD1 ANTIMICROBIAL RESISTANCE GENES [facility] Comment on above: Performed By: #### C ADAM #### [facility] [address] [place] [address] Dr. Aissatou Vásquez BCIDHD2 SEE BELOW [facility] Comment on above: Result Comment: Note : Antimicrobial resitance can occur via multiple mechanisms. A Not Detected result for the [employer] antomicrobial resistance gene assays does not indicate antimicrobial susceptibility. Subculturing is required for species identification and susceptibility testing of isolates. Performed By: #### C ADAM #### [facility] [address] [place] [address] Dr. Aissatou Vásquez BCIDHD3 Positive [facility] Comment on above: Performed By: #### C ADAM #### [facility] [address] [place] [address] Dr. Aissatou Vásquez BCIDHD4 Negative [facility] Comment on above: Performed By: #### C ADAM #### [facility] [address] [place] [address] Dr. Aissatou Vásquez BCIDHD5 YEAST Normal [facility] Comment on above: Performed By: #### C ADAM #### [facility] [address] [place] [address] Dr. Aissatou Vásquez Bottle Set: Set 2 [facility] Comment on above: Performed By: #### C ADAM #### [facility] [address] [place] [address] Dr. Aissatou Vásquez Bottle: Pediatric Normal [facility] Comment on above: Performed By: #### C ADAM #### [facility] [address] [place] [address] Dr. Aissatou Vásquez C. neoformans/gattii Not detected Normal NOT DETECTED [facility] Comment on above: Performed By: #### C ADAM #### [facility] [address] [place] [address] Dr. Aissatou Vásquez Soraya albicans Not detected Normal NOT DETECTED [facility] Comment on above: Performed By: #### C ADAM #### [facility] [address] [address] [address] Aissatou Vásquez Soraya auris Not detected Normal NOT DETECTED [facility] Comment on above: Performed By: #### C ADAM #### [facility] [address] [place] [address] Dr. Aissatou Vásquez Soraya glabrata Not detected Normal NOT DETECTED [facility] Comment on above: Performed By: #### C ADAM #### [facility] [address] [place] [address] Dr. Aissatou Vásquez Soraya Krusei Not detected Normal NOT DETECTED [facility] Comment on above: Performed By: #### C ADAM #### [facility] [address] [place] [address] Dr. Aissatou Vásquez Soraya Parapsilosis Not detected Normal NOT DETECTED [facility] Comment on above: Performed By: #### C ADAM #### [facility] [address] [place] [address] Dr. Aissatou Vásquez Soraya Tropicalis Not detected Normal NOT DETECTED [facility] Comment on above: Performed By: #### C ADAM #### [facility] [address] [place] [address] Dr. Aissatou Vásquez CTX-M Resistant Gene Not detected Normal NOT DETECTED [facility] Comment on above: Performed By: #### C ADAM #### [facility] [address] [place] [address] Dr. Aissatou Vásquez E. Cloacae complex Not detected Normal NOT DETECTED [facility] Comment on above: Performed By: #### C ADAM #### [facility] [address] [place] [address] Dr. Aissatou Vásquez E. faecalis Not detected Normal NOT DETECTED [facility] Comment on above: Performed By: #### C ADAM #### [facility] [address] [place] [address] Dr. Aissatou Vásquez E. faecium Not detected Normal NOT DETECTED [facility] Comment on above: Performed By: #### C ADAM #### [facility] [address] [place] [address] Dr. Aissatou Vásquez Enterobacteriaceae Detected Critically abnormal NOT DETECTED [facility] Comment on above: Performed By: #### C ADAM #### [facility] [address] [place] [address] Dr. Aissatou Vásquez Escherichia coli Not detected Normal NOT DETECTED [facility] Comment on above: Performed By: #### C ADAM #### [facility] [address] [place] [address] Dr. Aissatou Vásquez H. influenzae Not detected Normal NOT DETECTED [facility] Comment on above: Performed By: #### C ADAM #### [facility] [address] [place] [address] Dr. Aissatou Vásquez IMP Resistant Gene Not detected Normal NOT DETECTED [facility] Comment on above: Performed By: #### C ADAM #### [facility] [address] [place] [address] Dr. Aissatou Vásquez K. oxytoca Not detected Normal NOT DETECTED [facility] Comment on above: Performed By: #### C ADAM #### [facility] [address] [place] [address] Dr. Aissatou Vásquez K. pneumoniae Not detected Normal NOT DETECTED [facility] Comment on above: Performed By: #### C ADAM #### [facility] [address] [place] [address] Dr. Aissatou Vásquez Klebsiella aerogenes Not detected Normal NOT DETECTED [facility] Comment on above: Performed By: #### C ADAM #### [facility] [address] [place] [address] Dr. Aissatou Vásquez KPC Resistant Gene Not detected Normal NOT DETECTED [facility] Comment on above: Performed By: #### C ADAM #### [facility] [address] [place] [address] Dr. Aissatou Vásquez List. monocytogenes Not detected Normal NOT DETECTED [facility] Comment on above: Performed By: #### C ADAM #### [facility] [address] [place] [address] Dr. Aissatou Vásquez Mcr-1 Resistant Gene Not Applicable Normal NOT DETECTE D [facility] Comment on above: Performed By: #### C ADAM #### [facility] [address] [place] [address] Dr. Aissatou Vásquez mecA/C Not Applicable Normal NOT DETECTED [facility] Comment on above: Performed By: #### C ADAM #### [facility] [address] [place] [address] Dr. Aissatou Vásquez mecA/C MREJ Not Applicable Normal NOT DETECTED [facility] Comment on above: Performed By: #### C ADAM #### [facility] [address] [place] [address] Dr. Aissatou Vásquez N. meningitidis Not detected Normal NOT DETECTED [facility] Comment on above: Performed By: #### C ADAM #### [facility] [address] [place] [address] Dr. Aissatou Vásquez NDM Resistant Gene Not detected Normal NOT DETECTED [facility] Comment on above: Performed By: #### C ADAM #### [facility] [address] [place] [address] Dr. Aissatou Vásquez Oxa-48-like Not detected Normal NOT DETECTED [facility] Comment on above: Performed By: #### C ADAM #### [facility] [address] [place] [address] Dr. Aissatou Vásquez Proteus Not detected Normal NOT DETECTED [facility] Comment on above: Performed By: #### C ADAM #### [facility] [address] [place] [address] Dr. Aissatou Vásquez Pseud. aeruginosa Not detected Normal NOT DETECTED [facility] Comment on above: Performed By: #### C ADAM #### [facility] [address] [place] [address] Dr. Aissatou Vásquez S. maltophilia Not detected Normal NOT DETECTED [facility] Comment on above: Performed By: #### C ADAM #### [facility] [address] [place] [address] Dr. Aissatou Vásquez Salmonella Not detected Normal NOT DETECTED [facility] Comment on above: Performed By: #### C ADAM #### [facility] [address] [address] [address] Aissatou Vásquez Seratia marcescens Not detected Normal NOT DETECTED [facility] Comment on above: Performed By: #### C ADAM #### [facility] [address] [place] [address] Dr. Aissatou Vásquez Site: IV Normal [facility] Comment on above: Performed By: #### C ADAM #### [facility] [address] [place] [address] Dr. Aissatou Vásquez Staph. aureus Not detected Normal NOT DETECTED [facility] Comment on above: Performed By: #### C ADAM #### [facility] [address] [place] [address] Dr. Aissatou Vásquez Staph. epidermidis Not detected Normal NOT DETECTED [facility] Comment on above: Performed By: #### C ADAM #### [facility] [address] [place] [address] Dr. Aissatou Vásquez Staph. lugdunensis Not detected Normal NOT DETECTED [facility] Comment on above: Performed By: #### C ADAM #### [facility] [address] [place] [address] Dr. Aissatou Vásquez Staphylococcus Not detected Normal NOT DETECTED [facility] Comment on above: Performed By: #### C ADAM #### [facility] [address] [place] [address] Dr. Aissatou Vásquez Strep. agalactiae Not detected Normal NOT DETECTED [facility] Comment on above: Performed By: #### C ADAM #### [facility] [address] [place] [address] Dr. Aissatou Vásquez Strep. pneumoniae Not detected Normal NOT DETECTED [facility] Comment on above: Performed By: #### C ADAM #### [facility] [address] [place] [address] Dr. Aissatou Vásquez Strep. pyogenes Not detected Normal NOT DETECTED [facility] Comment on above: Performed By: #### C ADAM #### [facility] [address] [address] [address] Aissatou Vásquez Streptococcus Not detected Normal NOT DETECTED [facility] Comment on above: Performed By: #### C ADAM #### [facility] [address] [address] [address] Aissatou Vásquez Akila/B Resist. Gene Not Applicable Normal NOT DETECTED [facility] Comment on above: Performed By: #### C ADAM #### [facility] [address] [place] [address] Dr. Aissatou Vásquez VIM Resistant Gene Not detected Normal NOT DETECTED [facility] Comment on above: Performed By: #### C ADAM #### [facility] [address] [place] [address] Dr. Aissatou Vásquez CBC W MANUAL DIFFon 07-01-20 22 ATYPICAL LYMPH # Normal [facility] Comment on above: Performed By: #### C BCMAN ####[facility] [address] [place], [place] [address]Dr. Aissatou Vásquez ATYPICAL LYMPH % Normal [facility] Comment on above: Performed By: #### C BCMAN ####[facility] [address] [place], [place] [address]Dr. Aissatou Vásquez BAND # 0.4 103/ul Critically high 0.0-0.3 [facility] Comment on above: Performed By: #### C BCMAN ####[facility] [address] [address]Dr. Sheylan Vásquez BAND % 3 % Normal 0-5 [facility] Comment on above: Performed By: #### C BCMAN ####[facility] [address] [address]Dr. Aissatou Vásquez BASOM # 0.00 103/ul Normal 0.00-0.10 [facility] Comment on above: Performed By: #### C BCMAN ####[facility] [address] [place], [place] [address]Dr. Aissatou Vásquez BASOM % 0.0 % Critically low 0.2-2.0 [facility] Comment on above: Performed By: #### C BCMAN ####[facility] [address] [address]Dr. Aissatou Vásquez BLAST # Normal [facility] Comment on above: Performed By: #### C BCMAN ####[facility] [address] [id number]. Aissatou Vásquez BLAST % Normal [facility] Comment on above: Performed By: #### C BCMAN ####[facility] [address] [id number]. Aissatou Vásquez CORRECTED WBC Normal 4.0-11.0 [facility] Comment on above: Performed By: #### C BCMAN ####[facility] [address] [place], [place] [address]Dr. Aissatou Vásquez EOS # 0.12 103/ul Normal 0.00-0.70 [facility] Comment on above: Performed By: #### C BCMAN ####[facility] [address] [address]Dr. Aissatou Vásquez EOS% 1.0 % Normal 0.9-7.0 [facility] Comment on above: Performed By: #### C BCMAN ####[facility] [address] [place], [place] [address]Dr. Aissatou Vásquez HCT 46.0 % Normal 42.0-54.0 [facility] Comment on above: Performed By: #### C BCMAN ####[facility] [address] [address]Dr. Aissatou Vásquez HGB 14.6 g/dl Normal 14.0-18.0 [facility] Comment on above: Performed By: #### C BCMAN ####[facility] [address] [place], [place] [address]Dr. Aissatou Vásquez LYMPHM # 0.62 103/ul Critically low 1.20-3.80 [facility] Comment on above: Performed By: #### C BCMAN ####[facility] [address] [id number]. Aissatou Vásquez LYMPHM% 5.0 % Critically low 20.5-60.0 [facility] Comment on above: Performed By: #### C ABUNDIO ####[facility] [address] [id number]. Aissatou Vásquez MCH 29.9 pg Normal 25.9-34.0 [facility] Comment on above: Performed By: #### C ABUNDIO ####[facility] [address] [id number]. Aissatou Vásquez MCHC 31.7 g/dl Normal 29.9-35.2 [facility] Comment on above: Performed By: #### C ABUNDIO ####[facility] [address] [place], [place] [address]Dr. Aissatou Vásquez MCV 94.1 fL Critically high 80.0-94.0 [facility] Comment on above: Performed By: #### C ABUNDIO ####[facility] [address] [place], [place] [address]Dr. Aissatou Vásquez METAMYELOCYTE # Normal [facility] Comment on above: Performed By: #### C ABUNDIO ####[facility] [address] [place], [place] [address]Dr. Aissatou Vásquez METAMYELOCYTE % Normal [facility] Comment on above: Performed By: #### C ABUNDIO ####[facility] [address] [address]Dr. Aissatou Vásquez MONOM# 0.62 103/ul Normal 0.30-0.80 [facility] Comment on above: Performed By: #### C ABUNDIO ####[facility] [address] [id number]. Aissatou Vásquez MONOM% 5.0 % Normal 1.7-12.0 [facility] [facility] Comment on above: Performed By: #### C ABUNDIO ####[facility] [id number] [place] [address]Dr. Aissatou Vásquez MPV 10.4 fL Normal 9.5-13.5 [facility] Comment on above: Performed By: #### C BCRITCHIE ####[facility] [id number] [place], [place] [address]Bp. Aissatou Vásquez MYELOCYTE # Normal [facility] Comment on above: Performed By: #### C BCMAN ####[facility] [id number] [place], [place] [address]Ci. Aissatou Vásquez MYELOCYTE % Normal [facility] Comment on above: Performed By: #### C BCMAN ####[facility] [id number] [place], [place] [address]Tt. Aissatou Vásquez NRBC Normal [facility] Comment on above: Performed By: #### C ABUNDIO ####[facility] [id number] [place] [id number]. Aissatou Vásquez PLT 171 103/ul Normal 150-450 [facility] Comment on above: Performed By: #### C ABUNDIO ####[facility] [id number] [place] [id number]. Aissatou Vásquez RBC 4.89 106/ul Normal 4.70-6.10 [facility] Comment on above: Performed By: #### C BCRITCHIE ####[facility] [id number] [place] [id number]. Aissatou Vásquez RDW 13.4 % Normal 11.0-15.0 [facility] Comment on above: Performed By: #### C BCRITCHIE ####[facility] [id number] [place] [id number]. Aissatou Vásquez SEG # 10.66 103/ul Critically high 1.40-6.50 [facility] Comment on above: Performed By: #### C BCIRTCHIE ####[facility] [address] [place], [place] [address]Mk. Aissatou Vásquez SEG % 86.0 % Critically high 43.0-75.0 [facility] Comment on above: Performed By: #### C BCRITCHIE ####[facility] [address] [place], [place] [address]Dh. Aissatou Vásquez WBC 12.4 103/ul Critically high 4.0-11.0 [facility] Comment on above: Performed By: #### C ABUNDIO ####[facility] [id number] [place], [place] [address]SaDr. Aissatou Vásquez CPKon 07-01-2022 CK [Catalytic activity/Vol] 1646 U/L Critically high 39-308 [facility] Comment on above: Performed By: #### L IVER, BMP, HSTROPN #### [facility] [address] [place], [place] [address] Dr[address] A[address] Vásquez [address] CSPINE WO CONon [...] KOKO ROMANO Date: 2022-07-01 19:22 Normal [facility] CT STROKE HEAD WOon 07-01-[address] [...] BERNADETTE BEDOLLA Date: 2022-07-01 17:37 Normal [facility] CULTURE BLOODon 07-01-2022 Microscopic examination of blood, culture Culture Observations: NO GROWTH AT 5 DAYS. Normal [facility] Comment on above: Performed By: #### B LDCX1 ####[facility] [id number] [place] [address]Dr. Aissatou Fahad [facility]on 06-06 SARS-CoV-2 (COVID-19) RNA HALLE+probe Ql (Unsp spec) Not detected Normal NOT DETECTED [facility] Comment on above: Result Comment: When diagnostic [...] for this test is supported by the Director Of [employer] of Health and Human Service's declaration that [...] By: #### L CHANNINGER, BMP, HSTROPN #### [facility] [address] [place] [address] Dr. Aissatou Vásquez DRUG SCREEN RAPID (URINE)on 07-01-2022 AMP Negative Normal NEGATIVE [facility] Comment on above: Performed By: #### C ADAM #### [facility] [address] [place] [address] [address] Aissatou Vásquez BAR Negative Normal NEGATIVE [facility] Comment on above: Performed By: #### C ADAM #### [facility] [address] [place] [address] Dr. Aissatou Vásquez BUP Negative Normal NEGATIVE [facility] Comment on above: Performed By: #### C ADAM #### [facility] [address] [place] [address] Dr. Aissatuo Vásquez BZO Negative Normal NEGATIVE [facility] Comment on above: Performed By: #### C ADAM #### [facility] [address] [place] [address] [address] Aissatou Vásquez MARYJANE Negative Normal NEGATIVE [facility] Comment on above: Performed By: #### C ADAM #### [facility] [address] [place] [address] Dr. Aissatou Vásquez CUT-OFFS SEE BELOW Normal [facility] Comment on above: Result Comment: AMP (Amphetamine): 500ng/mL, BAR (Barbituates): 200 ng/mL, BZO (Benzodiazepines): 150 ng/mL, BUP (Buprenorphine): 10 ng/mL, MARYJANE (Cocaine): 150 ng/mL, mAMP (Methamphetamine): 500 ng/mL, MTD (Methadone): 200 ng/mL, OPI (Opiates): 100 ng/mL, OXY (Oxycodone): 100 ng/mL, PCP (Phencyclidine): 25 ng/mL, PPX (Propoxyphene): 300 ng/mL, THC (Cannabinoids): 50 ng/mL, TCA (Trycyclic Antidepressants): 300 ng/mL Performed By: #### C ADAM #### [facility] [address] [place] [address] Dr. Aissatou Vásquez DRUG CUT HEADER DRUG CLASS TEST SYSTEM CUT-OFF CONCENTRATIONS ARE FOLLOWS: Normal [facility] Comment on above: Performed By: #### C ADAM #### [facility] [address] [place] [address] Dr. Aissatou Vásquez mAMP Negative Normal NEGATIVE [facility] Comment on above: Performed By: #### C ADAM #### [facility] [address] [place] [address] [address] Aissatou Vásquez MTD Negative Normal NEGATIVE [facility] Comment on above: Performed By: #### C ADAM #### [facility] [address] [place] [address] Dr. Aissatou Vásquez OPI Negative Normal NEGATIVE [facility] Comment on above: Performed By: #### C ADAM #### [facility] [address] [place] [address] Dr. Aissatou Vásquez OXY Negative Normal NEGATIVE [facility] Comment on above: Performed By: #### C ADAM #### [facility] [address] [place] [address] [address] Aissatou Vásquez PCP Negative Normal NEGATIVE [facility] Comment on above: Performed By: #### C ADAM #### [facility] [address] [place] [address] Dr. Aissatou Vásquez PPX Negative Normal NEGATIVE [facility] Comment on above: Performed By: #### C ADAM #### [facility] [address] [place] [address] Dr. Aissatou Vásquez TCA Negative Normal NEGATIVE [facility] Comment on above: Performed By: #### C ADAM #### [facility] [address] [place] [address] Dr. Aissatou Vásquez THC Negative Normal NEGATIVE [facility] Comment on above: Performed By: #### C ADAM #### [facility] [address] [place] [address] Dr. Aissatou Vásquez ER URINE PROFILEon 12-27-202 2 Bilirubin Ql (U) Negative Normal NEGATIVE [facility] Comment on above: Performed By: #### C ADAM #### [facility] [address] [place] [address] Dr. Aissatou Vásquez Clarity (U) CLEAR Normal CLEAR [facility] Comment on above: Performed By: #### C ADAM #### [facility] [address] [place] [address] Dr. Aissatou Vásquez Color (U) YELLOW Normal YELLOW [facility] Comment on above: Performed By: #### C ADAM #### [facility] [address] [place] [address] Dr. Aissatou BECKWITH A micrscopic examination will be performed if indicated. Normal [facility] Comment on above: Performed By: #### C ADAM #### [facility] [address] [place] [address] Dr. Aissatou Vásquez Glucose Ql (U) Negative Normal NEGATIVE [facility] Comment on above: Performed By: #### C ADAM #### [facility] [address] [place] [address] Dr. Aissatou Vásquez Hemoglobin Ql (U) MODERATE Abnormal NEGATIVE [facility] Comment on above: Performed By: #### C ADAM #### [facility] [address] [place] [address] Dr. Aissatou Vásquez Ketones Ql (U) 15 mg/dl Abnormal NEGATIVE [facility] Comment on above: Performed By: #### C ADAM #### [facility] [address] [place] [address] Dr. Aissatou Vásquez LEUKOCYTES Negative Normal NEGATIVE [facility] Comment on above: Performed By: #### C ADAM #### [facility] [address] [place] [address] Dr. Aissatou Vásquez Nitrite Ql (U) Negative Normal NEGATIVE [facility] Comment on above: Performed By: #### C ADAM #### [facility] [address] [place] [address] Dr. Aissatou Vásquez pH (U) 5.0 [pH] Normal 5-9 [facility] Comment on above: Performed By: #### C ADAM #### [facility] [address] [place] [address] Dr. Aissatou Vásquez SPEC GRAVITY 1.025 Normal 1.005-<=1.025 [facility] Comment on above: Performed By: #### C ADAM #### [facility] [address] [place] [address] Dr. Aissatou Vásquez UA PROTEIN TRACE Normal NEGATIVE/ TRACE [facility] Comment on above: Performed By: #### C ADAM #### [facility] [address] [place] [address] Dr. Aissatou Vásquez UR MICRO IND INDICATED Normal [facility] Comment on above: Performed By: #### C ADAM #### [facility] [address] [place] [address] Dr. Aissatou Vásquez Urobilinogen Qn (U) 0.2 {Ilene'U}/dL Normal 0.2 - 1. 0 [facility] Comment on above: Performed By: #### C ADAM #### [facility] [address] [place] [address] Dr. Aissatou Vásquez LIVER PROFILEon 07-01-2022 Albumin [Mass/Vol] 3.7 g/dL Normal 3.4-5.0 [facility] Comment on above: Performed By: #### L IVER, BMP, HSTROPN #### [facility] [address] [place] [address] Dr. Aissatou Vásquez Albumin/Globulin [Mass ratio] 0.9 {ratio} Normal [facility] Comment on above: Performed By: #### L IVER, BMP, HSTROPN #### [facility] [address] [place] [address] Dr. Aissatou Vásquez ALP [Catalytic activity/Vol] 143 U/L Critically high 46-116 [facility] Comment on above: Performed By: #### L IVER, BMP, HSTROPN #### [facility] [address] [place] [address] Dr. Aissatou Vásquez ALT [Catalytic activity/Vol] 56 U/L Normal 16-63 [facility] Comment on above: Performed By: #### L IVER, BMP, HSTROPN #### [facility] [address] [place] [address] [address] Aissatou Vásquez AST [Catalytic activity/Vol] 87 U/L Critically high 15-37 [facility] Comment on above: Performed By: #### L IVER, BMP, HSTROPN #### [facility] [address] [place] [address] Dr. Aissatou Vásquez BILI, CONJUGATED 0.2 mg/dL Normal 0.0-0.2 [facility] Comment on above: Performed By: #### L IVER, BMP, HSTROPN #### [facility] [address] [place] [address] Dr. Aissatou Vásquez Bilirubin [Mass/Vol] 0.6 mg/dL Normal 0.2-1.0 [facility] Comment on above: Performed By: #### L IVER, BMP, HSTROPN #### [facility] [address] [place] [address] Dr. Aissatou Vásquez Globulin (S) [Mass/Vol] 3.9 g/dL Normal [facility] Comment on above: Performed By: #### L IVER, BMP, HSTROPN #### [facility] [address] [place] [address] Dr. Aissatou Vásquez Protein [Mass/Vol] 7.6 g/dL Normal 6.4-8.2 [facility] Comment on above: Performed By: #### L IVER, BMP, HSTROPN #### [facility] [address] [place] [address] Dr. Aissatou Vásquez MYOGLOBINon 07-01-2022 SARAH 2042 ng/mL Critically high 16-96 [facility] Comment on above: Performed By: #### L IVER, BMP, HSTROPN #### [facility] [address] [place] [address] Dr. Aissatou Vásquez PROF CHEM 8 (BAS METB)on Anion gap [Moles/Vol] 18.5 mmol/L Normal [facility] Comment on above: Performed By: #### L IVER, BMP, HSTROPN #### [facility] [address] [place] [address] [address] Aissatou Vásquez Calcium [Mass/Vol] 9.8 mg/dL Normal 8.5-10.1 [facility] Comment on above: Performed By: #### L IVER, BMP, HSTROPN #### [facility] [address] [place] [address] [address] Aissatou Vásquez Chloride [Moles/Vol] 104 mmol/L Normal 98-107 [facility] Comment on above: Performed By: #### L IVER, BMP, HSTROPN #### [facility] [address] [place] [address] Dr. Aissatou Vásquez CO2 [Moles/Vol] 24.3 mmol/L Normal 21.0-32.0 [facility] Comment on above: Performed By: #### L IVER, BMP, HSTROPN #### [facility] [address] [place] [address] [address] Aissatou Vásquez Creatinine [Mass/Vol] 1.74 mg/dL Critically high 0.70-1.30 [facility] Comment on above: Performed By: #### L IVER, BMP, HSTROPN #### [facility] [address] [place] [address] Dr. Aissatou Vásquez EGFR-AF SAMOAN 46 mL/min/1.73m2 Critically low >=60 [facility] Comment on above: Performed By: #### L IVER, BMP, HSTROPN #### [facility] [address] [place] [address] Dr. Aissatou Vásquez EGFR-NON AF SAMOAN 38 mL/min/1.73m2 Critically low >=60 [facility] Comment on above: Performed By: #### L IVER, BMP, HSTROPN #### [facility] [address] [place] [address] Dr. Aissatou Vásquez Glucose [Mass/Vol] 115 mg/dL Critically high 74-106 [facility] Comment on above: Performed By: #### L IVER, BMP, HSTROPN #### [facility] [address] [place] [address] [address] Aissatou Vásquez Potassium [Moles/Vol] 4.8 mmol/L Normal 3.5-5.1 [facility] Comment on above: Performed By: #### L IVER, BMP, HSTROPN #### [facility] [address] [place] [address] [address] Aissatou Vásquez Sodium [Moles/Vol] 142 mmol/L Normal 136-145 [facility] Comment on above: Performed By: #### L IVER, BMP, HSTROPN #### [facility] [address] [place] [address] [address] Aissatou Vásquez Urea nitrogen [Mass/Vol] 54.0 mg/dL Critically high 7.0-18.0 [facility] Comment on above: Performed By: #### L IVER, BMP, HSTROPN #### [facility] [address] [place] [address] [address] Aissatou Vásquez Urea nitrogen/Creatinine [Mass ratio] 31.0 mg/mg Normal [facility] Comment on above: Performed By: #### L IVER, BMP, HSTROPN #### [facility] [address] [place] [address] [address] Aissatou Vásquez TROPONIN, HIGH SENSITIVITYon 07-01-2022 HSTROP 102.3 pg/mL Critically high 4.0-76.1 [facility] Comment on above: Result Comment: CUT- OFF POINTS HAVE BEEN ESTABLISHED BASED ON THE FOURTH UNIVERSAL DEFINITIONS OF MYOCARDIAL INFARCTION. THE UPPER REFERENCE LIMIT (URL) OF TROPONIN, DEFINED THE 99TH PERCENTILE OF cTnI DISTRIBUTION IN A REFERENCE POPULATION, HAS BEEN CONFIRMED THE DECISION THRESHOLD FOR MS DIAGNOSIS. Performed By: #### H STROPN ####[facility] [id number] [place] [address]Dr. Aissatou Vásquez HSTROP 132.4 pg/mL Critically high 4.0-76.1 [facility] Comment on above: Result Comment: CUT- OFF POINTS HAVE BEEN ESTABLISHED BASED ON THE FOURTH UNIVERSAL DEFINITIONS OF MYOCARDIAL INFARCTION. THE UPPER REFERENCE LIMIT (URL) OF TROPONIN, DEFINED THE 99TH PERCENTILE OF cTnI DISTRIBUTION IN A REFERENCE POPULATION, HAS BEEN CONFIRMED THE DECISION THRESHOLD FOR MS DIAGNOSIS. Performed By: #### L DHARA WAITE, HSTROPN #### [facility] [address] [place] [address] Dr. Aissatou Vásquez TSHon 07-01-2022 TSH 7.840 uIU/mL Critically high 0.358-3.740 [facility] Comment on above: Performed By: #### L DHARA WAITE, HSTROPN #### [facility] [address] [place] [address] Dr. Aissatou Vásquez URINE MICROSCOPIC ONLYon BACTERIA NONE SEEN Normal NONE SEEN [facility] Comment on above: Performed By: #### C ADAM #### [facility] [address] [place] [address] Dr. Aissatou Vásquez Bacteria identified Cx Nom (U) NOT INDICATED Normal [facility] Comment on above: Performed By: #### C ADAM #### [facility] [address] [place] [address] Dr. Aissatou Vásquez CAST NONE SEEN Normal NONE SEEN [facility] Comment on above: Performed By: #### C ADAM #### [facility] [address] [place] [address] Dr. Aissatou Vásquez Crystals LM Nom (Urine sed) NONE SEEN Normal NONE SEEN [facility] Comment on above: Performed By: #### C ADAM #### [facility] [address] [place] [address] Dr. Aissatou Vásquez Epithelial cells LM Ql (Urine sed) RARE Normal NONE SEEN /RARE [facility] Comment on above: Performed By: #### C ADAM #### [facility] [address] [place] [address] Dr. Aissatou Vásquez MUCOUS TRACE Abnormal NONE SEEN [facility] Comment on above: Performed By: #### C ADAM #### [facility] [address] [place] [address] Dr. Aissatou Vásquez RBC 2-5 Abnormal 0-2 [facility] Comment on above: Performed By: #### C ADAM #### [facility] [address] [place] [address] Dr. Aissatou Vásquez WBC 2-5 Abnormal NONE SEEN [facility] Comment on above: Performed By: #### C ADAM #### [facility] [address] [place] [address] Dr. Aissatou Vásquez XR CHEST 1 Von [...] Jhony TOTH Date: 2022-07-01 18:01 Normal [facility] AMMONIAon 06-05-2022 Ammonia (P) [Mass/Vol] ug/dL Critically low [facility] Comment on above: Performed By: #### L IVER, BMP, HSTROPN #### [facility] [address] [place] [address] Dr. Aissatou Vásquez BNPon 06-05-2022 Natriuretic peptide B (Bld) [Mass/Vol] 672.0 pg/mL Normal <=1,800.0 [facility] Comment on above: Performed By: #### T SH, CMP, FT3, BNP, T4, LIPID #### [facility] [address] [place] [address] [address] Aissatou Vásquez CBC AUTO DIFFon 06-05-2022 BASO # 0.0 103/ul Normal 0.0-0.1 [facility] Comment on above: Performed By: #### C ADAM #### [facility] [address] [place] [address] Dr. Aissatou Vásquez Basophils/100 WBC (Bld) 0.6 % Normal 0.2-2.0 [facility] Comment on above: Performed By: #### C ADAM #### [facility] [address] [place] [address] Dr. Aissatou Vásquez EO # 0.0 103/ul Normal 0.0-0.7 [facility] Comment on above: Performed By: #### C ADAM #### [facility] [address] [place] [address] Dr. Aissatou Vásquez Eosinophils/100 WBC (Bld) 0.6 % Critically low 0.9-7.0 [facility] Comment on above: Performed By: #### C ADAM #### [facility] [address] [place] [address] Dr. Aissatou Vásquez Erythrocyte distribution width (RBC) [Ratio] 13.7 % Normal 11.0-15.0 [facility] Comment on above: Performed By: #### C ADAM #### [facility] [address] [place] [address] Dr. Aissatou Vásquez Hematocrit (Bld) [Volume fraction] 40.7 % Critically low 42.0-54.0 [facility] Comment on above: Performed By: #### C ADAM #### [facility] [address] [place] [address] Dr. Aissatou Vásquez Hemoglobin (Bld) [Mass/Vol] 12.8 g/dL Critically low 14.0-18.0 [facility] Comment on above: Performed By: #### C ADAM #### [facility] [address] [place] [address] Dr. Aissatou Vásquez IG # 0.01 10e3/ul Normal 0.00-0.03 [facility] Comment on above: Performed By: #### C ADAM #### [facility] [address] [place] [address] Dr. Aissatou Vásquez IG % 0.2 % Normal 0.0-0.5 [facility] Comment on above: Performed By: #### C ADAM #### [facility] [address] [place] [address] Dr. Aissatou Vásquez LYMPH # 1.7 103/ul Normal 1.2-3.8 [facility] Comment on above: Performed By: #### C ADAM #### [facility] [address] [place] [address] Dr. Aissatou Vásquez Lymphocytes/100 WBC (Bld) 27.5 % Normal 20.5-60.0 [facility] Comment on above: Performed By: #### C ADAM #### [facility] [address] [place] [address] Dr. Aissatou Vásquez MANUAL DIFF REQ NO Normal [facility] Comment on above: Performed By: #### C ADAM #### [facility] [address] [place] [address] Dr. Aissatou Vásquez MCH (RBC) [Entitic mass] 30.3 pg Normal 25.9-34.0 [facility] Comment on above: Performed By: #### C ADAM #### [facility] [address] [place] [address] Dr. Aissatou Vásquez MCHC (RBC) [Mass/Vol] 31.4 g/dL Normal 29.9-35.2 [facility] Comment on above: Performed By: #### C ADAM #### [facility] [address] [place] [address] Dr. Aissatou Vásquez MCV (RBC) [Entitic vol] 96.2 fL Critically high 80.0-94.0 [facility] Comment on above: Performed By: #### C ADAM #### [facility] [address] [place] [address] Dr. Aissatou Vásquez MONO # 0.6 103/ul Normal 0.3-0.8 [facility] Comment on above: Performed By: #### C ADAM #### [facility] [address] [place] [address] Dr. Aissatou Vásquez Monocytes/100 WBC (Bld) 9.9 % Normal 1.7-12.0 [facility] Comment on above: Performed By: #### C ADAM #### [facility] [address] [place] [address] Dr. Aissatou Vásquez NEUT # 3.8 103/ul Normal 1.4-6.5 [facility] Comment on above: Performed By: #### C ADAM #### [facility] [address] [place] [address] [address] Aissatou Vásquez Neutrophils/100 WBC (Bld) 61.2 % Normal 43.0-75.0 [facility] Comment on above: Performed By: #### C ADAM #### [facility] [address] [place] [address] Dr. Aissatou Vásquez Platelet mean volume (Bld) [Entitic vol] 9.3 fL Critically low 9.5-13.5 [facility] Comment on above: Performed By: #### C ADAM #### [facility] [address] [place] [address] Dr. Aissatou Vásquez PLT 218 103/ul Normal 150-450 [facility] Comment on above: Performed By: #### C ADAM #### [facility] [address] [place] [address] Dr. Aissatou Vásquez RBC 4.23 106/ul Critically low 4.70-6.10 [facility] Comment on above: Performed By: #### C ADAM #### [facility] [address] [place] [address] Dr. Aissatou Vásquez WBC 6.3 103/ul Normal 4.0-11.0 [facility] Comment on above: Performed By: #### C ADAM #### [facility] [address] [place] [address] Dr. Aissatou Vásquez FREE T3on 06-05-2022 FREE T3 1.80 pg/mlL Critically low 2.18-3.98 [facility] Comment on above: Performed By: #### T SH, CMP, FT3, BNP, T4, LIPID #### [facility] [address] [place] [address] Dr. Aissatou Vásquez GLYCOHEMOGLOBIN A1Con 2021 ADA RECOMMENDATION SEE BELOW Normal [facility] Comment on above: Result Comment: ADA RECOMMENDED LIMIT 4.0 - 6.0 ADA THERAPEUTIC TARGET < 7.0 ACTION SUGGESTED > 7.0 Performed By: #### L IVER, BMP, HSTROPN #### [facility] [address] [place] [address] Dr. Aissatou Vásquez Glucose [Mass/Vol] 117 mg/dL Normal [facility] Comment on above: Performed By: #### L IVER, BMP, HSTROPN #### [facility] [address] [address] [address] Aissatou Vásquez HbA1c (Bld) [Mass fraction] 5.7 % Normal 4.5-6.2 [facility] Comment on above: Performed By: #### L IVER, BMP, HSTROPN #### [facility] [address] [address] [address] Aissatou Vásquez IRONon 06-05-2022 Iron [Mass/Vol] 76.0 ug/dL Normal 65.0-175.0 [facility] Comment on above: Performed By: #### P SASC, VITAD, IRON, B12FOL ####[facility] [address] [address]DrBud Vásquez LIPID PROFILEon 06-05-2022 CHOL-HDL RATIO NORM SEE BELOW Normal [facility] Comment on above: Result Comment: 3.3 - 4.4 LOW RISK 4.4 - 7.1 AVERAGE RISK 7.1 - 11.0 MODERATE RISK >11.0 HIGH RISK Performed By: #### T SH, CMP, FT3, BNP, T4, LIPID ####[facility] [address] [address]DrBud Vásquez Cholesterol [Mass/Vol] 133 mg/dL Normal <=200 [facility] Comment on above: Performed By: #### T SH, CMP, FT3, BNP, T4, LIPID ####[facility] [address] [address]Dr. Aissatou Vásquez Cholesterol in HDL [Mass/Vol] 79 mg/dL Critically high 40-60 [facility] Comment on above: Performed By: #### T SH, CMP, FT3, BNP, T4, LIPID ####[facility] [address] [address]DrBud Vásquez Cholesterol in LDL [Mass/Vol] 43.6 mg/dL Normal [facility] Comment on above: Performed By: #### T SH, CMP, FT3, BNP, T4, LIPID ####[facility] [address] [place], [place] [address]Oq. Aissatou Vásquez Cholesterol.total/Cho lesterol in HDL [Mass ratio] 1.7 {ratio} Normal [facility] Comment on above: Performed By: #### T SH, CMP, FT3, BNP, T4, LIPID ####[facility] [address] [place], [place] [address]Nl. Aissatou Vásquez HDL NORMAL > or = 60 mg/dl - LO W CARDIOVASCULAR RISK <40 mg/dl - HIGH CARDIOVASCULAR RISK Normal [facility] Comment on above: Performed By: #### T SH, CMP, FT3, BNP, T4, LIPID ####[facility] [address] [id number]. Aissatou Vásquez LDL CALC NORMAL SEE BELOW Normal [facility] Comment on above: Result Comment: <100 mg/dl OPTIMAL 100 - 129 mg/dl NEAR OR ABOVE OPTIMAL 130 - 159 mg/dl BORDERLINE HIGH 160 - 189 mg/dl HIGH >190 mg/dl VERY HIGH Performed By: #### T SH, CMP, FT3, BNP, T4, LIPID ####[facility] [address] [id number]. Aissatou Vásquez Triglyceride [Mass/Vol] 52 mg/dL Normal <=150 [facility] Comment on above: Performed By: #### T SH, CMP, FT3, BNP, T4, LIPID ####[facility] [address] [id number]. Aissatou Vásquez VLDL CALC 10.4 mg/dL Normal [facility] Comment on above: Performed By: #### T SH, CMP, FT3, BNP, T4, LIPID ####[facility] [address] [id number]. Aissatou Vásquez PROF 14(COMP METB)on 022 Albumin [Mass/Vol] 4.0 g/dL Normal 3.4-5.0 [facility] Comment on above: Performed By: #### T SH, CMP, FT3, BNP, T4, LIPID ####[facility] [address] [address]Dr. Aissatou Vásquez Albumin/Globulin [Mass ratio] 1.1 {ratio} Normal [facility] Comment on above: Performed By: #### T SH, CMP, FT3, BNP, T4, LIPID ####[facility] [address] [address]Dr. Aissatou Vásquez ALP [Catalytic activity/Vol] 137 U/L Critically high 46-116 [facility] Comment on above: Performed By: #### T SH, CMP, FT3, BNP, T4, LIPID ####[facility] [address] [address]Dr. Aissatou Vásquez ALT [Catalytic activity/Vol] 18 U/L Normal 16-63 [facility] Comment on above: Performed By: #### T SH, CMP, FT3, BNP, T4, LIPID ####[facility] [address] [address]Dr. Sheysarah Vásquez Anion gap [Moles/Vol] 11.1 mmol/L Normal [facility] Comment on above: Performed By: #### T SH, CMP, FT3, BNP, T4, LIPID ####[facility] [address] [address]Dr. Aissatou Vásquez AST [Catalytic activity/Vol] 9 U/L Critically low 15-37 [facility] Comment on above: Performed By: #### T SH, CMP, FT3, BNP, T4, LIPID ####[facility] [address] [address]Dr. Aissatou Vásquez Bilirubin [Mass/Vol] 0.3 mg/dL Normal 0.2-1.0 [facility] Comment on above: Performed By: #### T SH, CMP, FT3, BNP, T4, LIPID ####[facility] [address] [place], [place] [address]Dr. Sheysarah Vásquez Calcium [Mass/Vol] 9.4 mg/dL Normal 8.5-10.1 [facility] Comment on above: Performed By: #### T SH, CMP, FT3, BNP, T4, LIPID ####[facility] [address] [address]Dr. Aissatou Vásquez Chloride [Moles/Vol] 102 mmol/L Normal 98-107 [facility] Comment on above: Performed By: #### T SH, CMP, FT3, BNP, T4, LIPID ####[facility] [address] [address]Dr. Aissatou Vásquez CO2 [Moles/Vol] 29.7 mmol/L Normal 21.0-32.0 [facility] Comment on above: Performed By: #### T SH, CMP, FT3, BNP, T4, LIPID ####[facility] [address] [place], [place] [address]Dr. Aissatou Vásquez Creatinine [Mass/Vol] 1.62 mg/dL Critically high 0.70-1.30 [facility] Comment on above: Performed By: #### T SH, CMP, FT3, BNP, T4, LIPID ####[facility] [address] [place], [place] [address]Dr. Aissatou Vásquez EGFR-AF SAMOAN 50 mL/min/1.73m2 Critically low >=60 [facility] Comment on above: Performed By: #### T SH, CMP, FT3, BNP, T4, LIPID ####[facility] [address] [place], [place] [address]Dr. Aissatou Vásquez EGFR-NON AF SAMOAN 41 mL/min/1.73m2 Critically low >=60 [facility] Comment on above: Performed By: #### T SH, CMP, FT3, BNP, T4, LIPID ####[facility] [address] [place], [place] [address]Dr. Aissatou Vásquez Globulin (S) [Mass/Vol] 3.8 g/dL Normal [facility] Comment on above: Performed By: #### T SH, CMP, FT3, BNP, T4, LIPID ####[facility] [address] [place], [place] [address]Dr. Aissatou Vásquez Glucose [Mass/Vol] 86 mg/dL Normal 74-106 [facility] Comment on above: Performed By: #### T SH, CMP, FT3, BNP, T4, LIPID ####[facility] [address] [address]Dr. Aissatou Vásquez Potassium [Moles/Vol] 4.8 mmol/L Normal 3.5-5.1 [facility] Comment on above: Performed By: #### T SH, CMP, FT3, BNP, T4, LIPID ####[facility] [address] [address]Dr. Aissatou Vásquez Protein [Mass/Vol] 7.8 g/dL Normal 6.4-8.2 [facility] Comment on above: Performed By: #### T SH, CMP, FT3, BNP, T4, LIPID ####[facility] [address] [address]Dr. Aissatou Vásquez Sodium [Moles/Vol] 138 mmol/L Normal 136-145 [facility] Comment on above: Performed By: #### T SH, CMP, FT3, BNP, T4, LIPID ####[facility] [address] [address]Dr. Aissatou Vásquez Urea nitrogen [Mass/Vol] 41.0 mg/dL Critically high 7.0-18.0 [facility] Comment on above: Performed By: #### T SH, CMP, FT3, BNP, T4, LIPID ####[facility] [address] [address]Dr. Aissatou Vásquez Urea nitrogen/Creatinine [Mass ratio] 25.3 mg/mg Normal [facility] Comment on above: Performed By: #### T SH, CMP, FT3, BNP, T4, LIPID ####[facility] [address] [address]Dr. Aissatou Vásquez T4on 06-05-2022 T4 [Mass/Vol] 9.70 ug/dL Normal 4.50-12.10 [facility] Comment on above: Performed By: #### T SH, CMP, FT3, BNP, T4, LIPID #### [facility] [address] [address] [address] Aissatou Vásquez TSHon 06-05-2022 TSH 2.525 uIU/mL Normal 0.358-3.740 [facility] Comment on above: Performed By: #### T SH, CMP, FT3, BNP, T4, LIPID ####[facility] [address] [id number]. Aissatou Vásquez VIT B12 AND FOLATEon 022 Cobalamin (Vitamin B12) [Mass/Vol] 1004.0 pg/mL Critically high 193.0-986.0 [facility] Comment on above: Performed By: #### P SASC, VITAD, IRON, B12FOL ####[facility] [address] [id number]. Aissatou Vásquez FOLATE 6.10 ng/mL Critically low 8.60-58.90 [facility] Comment on above: Performed By: #### P SASC, VITAD, IRON, B12FOL ####[facility] [address] [address]Dr. Aissatou Vásquez VITAMIN D 25 OHon 06-05-2022 VIT D 25-OH 31.8 ng/mL Normal [facility] Comment on above: Performed By: #### P SASC, VITAD, IRON, B12FOL ####[facility] [address] [address]Dr. Aissatou Vásquez VIT D RANGES SEE BELOW Normal [facility] Comment on above: Result Comment: <20 ng/mL Vit D deficient 20 - <30 ng/mL Vit D insufficient 30 - 100 ng/mL Vit D sufficient >100 ng/mL Potential Toxicity Performed By: #### P SASC, VITAD, IRON, B12FOL ####[facility] [address] [id number]. Aissatou Vásquez Coding Summary.on 01-23-2017 Coding Summary. CODING DATE: 01/23/2017 FINAL [facility] STATUS: Home (Routine DC) PAYOR: Medicare [...] [place] Date Saved: 01/23/2017 10:07 am Normal [facility] Creatinineon 01-22-2017 Creatinine 1.0 mg/dL Normal 0.5-1.3 [facility] Comment on above: Performed By: #### 2 [id number], [id number] ####[facility] [address] [place] [address] eGFRon 01-22-2017 eGFR (black) mL/min/{1.73_m2} Normal >=59 [facility] Comment on above: Order Comment: Order added by Discern Expert. Result Comment: eGFR is race adjusted. AA=. Performed By: #### 2 [id number], [id number] ####[address] [place] [address] eGFR (non-black) mL/min/{1.73_m2} Normal >=59 [facility] Comment on above: Order Comment: Order added by Discern Expert. Result Comment: Motion Picture Printer matt kidney disease could be indicated at eGFR's of less than 60 mL/min/1.73m2. Kidney failure is indicated at less than 15 mL/min/1.73m2. Performed By: #### 2 [id number], [id number] ####[facility] [address] [place] [address] Vital Signs Date Time Vital Sign Value Performing Clinician Luci jacob 03-23-2023 13:55-0400 Diastolic blood pressure 68 mm[Hg] Jodi Banerjee DO Work Phone: [facility] 03-23-2023 13:55-0400 Heart rate 51 /min Jodi Banerjee DO Work Phone: [facility] 03-23-2023 13:55-0400 Systolic blood pressure 151 mm[Hg] Jdoi Banerjee DO Work Phone: [facility] 08-27-2022 13:12-0500 Diastolic blood pressure 70 mm[Hg] Jodi Banerjee DO Work Phone: [facility] 08-27-2022 13:120500 Heart rate 69 /min Gonormanfrantz Adameaure DO Work Phone: [facility] 08-27-2022 13:12-0500 Systolic blood pressure 156 mm[Hg] Jodi Banerjee DO Work Phone: [facility] Encounters Encounter Date Encounter Type Care Provider Facility Start: 08-11-2023 End: 08-12-2023 ambulatory PIPE HOPKINS [facility] Start: 07-23-2023 End: 07-23-2023 ambulatory AMANDA IRBY Not Available Start: 06-24-2023 End: 06-24-2023 ambulatory [facility] Start: 03-23-2023 End: 03-23-2023 ambulatory JODI BANERJEE Facility:[facility] Start: 03-23-2023 End: 03-23-2023 Patient encounter procedure Jodi Banerjee DO Work Phone: Neurology Comment on above: Altered mental statu s, unspecified altered mental status type (Primary Dx); Memory loss Start: 03-23-2023 Telephone encounter Rudi Banerjee DO Work Phone: Neurology Start: 12-25-2022 End: 12-26-2022 ambulatory [facility] Start: 10-27-2022 End: 10-28-[address] PIPE HOPKINS . Facility:[facility] Start: 09-24-2022 End: 09-24-[address] PIPE HOPKINS . Facility: Start: 09-22-2022 End: 09-22-2022 ambulatory [facility] Start: 08-27-2022 End: 08-28-2022 ambulatory PIPE HOPKINS Facility:[facility] Start: 08-27-2022 End: 08-27-2022 Patient encounter procedure [...] Start: 06-25-2017 End: 06-26-2017 Ambulatory DEFAULT PHYSICIAN Facility:[facility] Start: 01-22-2017 End: 01-23-2017 Ambulatory SHONDA ALATMIRANO Facility:[facility] Start: 05-27-2011 Patient encounter status Jodi Banerjee DO Work Phone: [facility] Work Phone: Procedures Date Procedure Procedure Detail Performing Clinician Start: 06-05-[address] ORTIZ HOPKINS . Comment on above: Performed By: #### P SASC, VITAD, IRON, B12FOL ####[facility] [address] [place], [place] [address]DgBud Vásquez Start: 02-20-2020 History of coronary artery bypass grafting S/P CABG (coronary artery bypass graft), PARRA to the LAD, SVG to D1, SVG to OM1, SVG to OM 2, inverted Y grafted PLV and posterior descending artery. Jodi Banerjee DO Work Phone: Plan of Treatment Date Care Activity Detail Author Start: 03-06-2023 Influenza vaccination Influenza Vacc ine (#1) [facility] Start: 08-27-2022 End: 10-27-2022 25-hydroxyvitamin D3 [Mass/volume] in Serum or Plasma [facility] Work Phone: Comment on above: Expected: 08/27/2022 , Expires: 10/27/2022 Start: 08-27-2022 End: 10-27-2022 SYPHILIS TOTAL W/REFLEX [facility] Work Phone: Comment on above: Expected: 08/27/2022 , Expires: 10/27/2022 Start: 07-06-2022 ADVANCE DIRECTIVE DISCUSSION ADVANCE DIRECTIVE DISCUSSION [facility] Start: 07-06-2022 DEPRESSION ASSESSMENT DEPRESSION ASS ESSMENT [facility] Start: 03-06-2022 Influenza vaccination INFLUENZA (#1) [facility] Start: 12-17-2019 DIABETES SCREEN [facility] Start: 12-17-2019 Diabetes Screening Diabetes Screenin g [facility] Start: 05-21-2012 Hepatitis B surface antibody level LDL CHOLESTEROL [facility] Start: 2003 Pneumococcal Vaccine : 65+ (1 - PCV) Pneumococcal Vaccine: 65+ (1 - PCV) [facility] Start: 2003 PNEUMOCOCCAL: 65+ (1 - PCV) PNEUMOCOCCAL: 65+ (1 - PCV) [facility] Start: 1988 SHINGRIX VACCINE (1 of 2) SHINGRIX VACCINE (1 of 2) [facility] Start: 1957 Urine microalbumin profile [facility] Start: 02-18-1939 COVID-19 VACCINE (#1) COVID-19 VACCI NE (#1) [facility] Immunizations Immunization Date Immunization Notes Care Provider Jewell molina 06-18-2017 influenza virus vaccine, unspecified formulation Jodi Banerjee DO Work Phone: [facility] Payers Date Payer Category Payer Medicare [id number] 2016 Private Health Insurance [facility] AARP SUPPLEMENT [id number] 2016-Present [phone] [address] [place] [address] Indemnity [id number] 2003 Medicare MEDICARE MEDICAR E A AND B [id number] 2003-Present [phone] [address] [address] [place] [address] Medicare [id number] 1959 Medicaid [id number] 1959 Medicare [id number] 1959 Unknown [id number] 1938 Unknown [id number]. 593 1938 Unknown [id number] [id number]. 593 1938 Unknown [id number] [id number]. 593 1938 Unknown [id number] [id number]. 593 1938 Unknown [id number] [id number]. 593 1938 Unknown [id number] [id number]. 593 1938 Unknown [id number] [id number]. 593 1938 Unknown [id number] [id number]. 593 1938 Unknown [id number] [id number]. 1259 1938 Unknown [id number]. 1286 Unknown Social History Date Type Detail Facility Start: 08-27-2022 Tobacco smoking stat us SCIS Ex-smoker [facility] History of tobacco use Current smoker [facility] History of tobacco use Cigarette Smoker [facility] Start: 08-27-2022 End: 03-23-2023 Cigarettes smoked current (pack per day) - Reported 1 [facility] Start: 08-27-2022 Tobacco use and exposure Vincent workman smokeless tobacco user [facility] End: 06-02-1971 History of tobacco use User of smokeless tobacco [facility] Start: 08-27-2022 End: 03-23-2023 Alcohol intake Current drinker of alcohol (finding) [facility] Start: 08-27-2022 Tobacco Comment quit 40 yrs ago [facility] Start: 05-21-2011 Alcohol Comment He drinks 4 gl asses of red wine weekly [facility] Start: 1940 Sex Assigned At Not on file [facility] Start: 03-23-2023 Tobacco use panel [facility] National Score (1-10 0), lower number is lower risk 52 [facility] Clinical Notes 05-28-2011 to 06-24-2023 Telephone Encounter - Terri Santos - 03/23/2023 3:27 PM EDTPatient Jodi Vernon, - 03/23/2023 1:46 PM EDTChgino Banerjee, - 08/27/2022 1:12 PM EST Note Date & Type Note Facility 06-24-2023 Note [place] Cardiology - [facility] Subjective Leanna Nelson is a 82 y.o. year old male patient being seen for 6 mo follow up CAD, hypertension, chronic diastolic heart failure, and carotid artery stenosis. Had routine labs in Mar 2023. Doing well from cardiac standpoint. No recurrent syncope. Patient Active Problem List Diagnosis Chronic diastolic heart failure (CMS/HCC) PAC (premature atrial contraction) Coronary artery disease involving white earth coronary artery of white earth heart without angina pectoris Hx of CABG [...] , Rfl: multivitamin (more content not included)... [facility] 03-23-2023 Note HNO ID: [id number] Author: Jodi Banerjee, DO Service: ? Author Type: Physician Type: Progress Notes Filed: 03/23/2023 2:41 PM Note Text: [facility] [place] Follow-up visit March 23, 2023 HPI: Overall [...] encounter he has moved and low lives [facility]. He states he does not [...] mainly his brother. He has seen by cattyman in 01/2023 with suggestion that he get a hearing aide but he refuses. After his last encounter he has followed up with cardiology concerning his heart rate that was auscultated on last encounter. They checked his heart rhythm and thought it was appropriate. This was as via physician in [place]. They deny other changes to his health and/or medications except for the above since our last encounter. PAST MEDICAL HISTORY Diagnosis Date Arthritis Carotid stenosis Coronary artery disease Coronary atherosclerosis of unspecified type of vessel, white earth or graft 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 Dyslipidemia Hypertension Hypertension Hypothyroid Lumbar disc disease Unspecified hypothyroidism Hypothyroidism PAST SURGICAL HISTORY Procedure Laterality Date PAST SURGICAL HISTORY OF CABG times 6 left internal thoracic artery to the wis-oi-ozxahq left anterior descending artery, reverse saphenous vein [...] tablet Take 5 (more content not included)... [facility] 03-23-2023 Miscellaneous Notes 03/23/2023 After visit Summary faxed to Dr Hopkins with confirmation received. PSS forgot to have pt complete release of information forms. This nurse has placed 2 copies in [place] mail for pt to complete and take to facility to release information to our office. POA was advised via voice message to send a [employer] msg if he had any further question. Terri Santos Lpn documented in this encounter [facility] 03-23-2023 Jodi Madrigal DO - 03/23/2023 2:40 PM EDT Please sign records release for last blood test results. documented in this encounter [facility] 03-23-2023 History of Present illness Narrative [facility] [place] Follow-up visit March 23, 2023 HPI: Overall [...] encounter he has moved and low lives [facility]. He states he does not [...] mainly his brother. He has seen by cattyman in 01/2023 with suggestion that he get a hearing aide but he refuses. After his last encounter he has followed up with cardiology concerning his heart rate that was auscultated on last encounter. They checked his heart rhythm and thought it was appropriate. This was as via physician in [place]. They deny other changes to his health and/or medications except for the above since our last encounter. PAST MEDICAL HISTORY Diagnosis Date Arthritis Carotid stenosis Coronary artery disease Coronary atherosclerosis of unspecified type of vessel, white earth or graft 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 Dyslipidemia Hypertension Hypertension Hypothyroid Lumbar disc disease Unspecified hypothyroidism Hypothyroidism PAST SURGICAL HISTORY Procedure Laterality Date PAST SURGICAL HISTORY OF CABG times 6 left internal thoracic artery to the sjl-zr-itvweh left anterior descending artery, reverse saphenous vein [...] with more than 50% of the total vyxh-ma-zkzu time of the visit in counseling / coordination of care. documented in this encounter [facility] 12-25-2022 Note [place] [facility] - [facility] Subjective Leanna Nelson is a 82 y.o. year old male patient being seen for Follow-up (3 month follow up ) Patient Active Problem List Diagnosis Chronic diastolic heart failure (CMS/HCC) PAC (premature atrial contraction) Coronary artery disease involving white earth coronary artery of white earth heart without angina pectoris Hx of CABG [...] , Rfl: choleca (more content not included)... [facility] 09-22-2022 Note Cardiovascular Medic ine [facility] SUBJECTIVE Chief Complaint Patient presents with office visit brother made appt had appt with neuro thought they heard something when listening to heart. confirmed Leanna Nelson is a 82 y.o. male here for follow-up. HPI PMHx: CAD s/p CABG 2010, HTN, HLD, former tobacco use, hypothyroidism, SAGAR (mild) FMHx: brother hx of MS/CAD and HFrEF 09/22/2022 He is accompanied by his brother. He was admitted back in 06/2022 d/t a fall, treated for rhabdo. 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 [facility] 09-22-2022 Note Review of Systems Cardiovascular: Positive for leg swelling and near-syncope. Negative for chest pain, claudication, cyanosis, dyspnea on exertion, irregular heartbeat, orthopnea, palpitations, paroxysmal nocturnal dyspnea and syncope. Bilateral leg swelling [facility] 08-27-2022 Note HNO ID: [id number] Author: Jodi Banerjee, DO Service: ? Author Type: Physician Type: Progress Notes Filed: 08/27/2022 2:35 PM Note Text: [facility] [place] New Patient Consultation August 27, 2022 HPI: [...] while there. They have been working with social services aide at the facility he is at but [...] Coronary atherosclerosis of unspecified type of vessel, white earth or graft 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 Dyslipidemia Hypertension Hypertension Hypothyroid Lumbar disc disease Unspecified hypothyroidism Hypothyroidism PAST SURGICAL HISTORY Procedure Laterality Date PAST SURGICAL HISTORY OF CABG times 6 left internal thoracic artery to the [id number] left anterior descending artery, reverse saphenous vein [...] Former Packs/day: 1.0 (more content not included)... [facility] 08-27-2022 History of Present illness Narrative [facility] [place] New Patient Consultation August 27, 2022 HPI: [...] while there. They have been working with social services aide at the facility he is at but [...] Coronary atherosclerosis of unspecified type of vessel, white earth or graft 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 Dyslipidemia Hypertension Hypertension Hypothyroid Lumbar disc disease Unspecified hypothyroidism Hypothyroidism PAST SURGICAL HISTORY Procedure Laterality Date PAST SURGICAL HISTORY OF CABG times 6 left internal thoracic artery to the [id number] left anterior descending artery, reverse saphenous vein [...] with more than 50% of the total ogog-tj-ivld time of the visit in counseling / coordination of care. documented in this encounter [facility] 05-28-2011 History of Past i llness Narrative Problem Noted Date Resolved Date Stress hyperglycemia 05/28/2011 06/01/2011 Overview: RHI gtt per ICU protocol Mechanically assisted ventilation 05/28/2011 05/29/2011 Overview: Extubated 05/29/11 no increased work of breathing Hypotension 05/28/2011 05/30/2011 Overview: Levo off this morning, hemodynamically stable. documented as of this encounter (statuses as of 08/27/2022) [facility] History of Past illness Narrative* Problem Noted Date Diagnosed Date Resolved Date Stress hyperglycemia 05/28/2011 011 Overview: RHI gtt per ICU protocol Mechanically assisted ventilation 05/28/2011 05/29/2011 Overview: Extubated 05/29/11 no increased work of breathing Hypotension 05/28/2011 05/30/2011 Overview: Levo off this morning, hemodynamically stable. documented as of this encounter (statuses as of 03/24/2023) [facility] History of Past illness Narrative* Problem Noted Date Diagnosed Date Resolved Date Stress hyperglycemia 05/28/2011 011 Overview: RHI gtt per ICU protocol Mechanically assisted ventilation 05/28/2011 05/29/2011 Overview: Extubated 05/29/11 no increased work of breathing Hypotension 05/28/2011 05/30/2011 Overview: Levo off this morning, hemodynamically stable. documented as of this encounter (statuses as of 03/24/2023) [facility] Diagnosis Altered mental status, unspecified altered mental status type- Primary Vitamin D deficiency, unspecified [facility]* Diagnosis Altered mental status, unspecified altered mental status type- Primary Memory loss documented in this encounter [facility] Summary Purpose Family History No Family History Records FoundNo Family History Records FoundNo Family History Records FoundNo Family History Records FoundNo Family History Records FoundNo Family History Records FoundNo Family History Records FoundNo Family History Records Found Advance Directives No Advanced Directives Records FoundDocuments on File Type Date Recorded Patient Hospitalist Physician Expl anation Advance Directive(s) 08/27/2022 1:25 PM Additional Source Comments (unrecognized sect ion and content) No Status Records FoundNo Status Records FoundNo Status Records FoundNo Status Records FoundNo Status Records FoundNo Status Records FoundNo Status Records FoundNo Status Records Found INFORMATION SOURCE (unrecogn ized section and content) DATE CREATED AUTHOR 12/29/2017 [facility] DATE CREATED AUTHOR AUTHOR'S ORGANIZ ATION 12/30/2017 [facility] DATE CREATED AUTHOR AUTHOR'S ORGANIZ ATION 08/28/2022 [facility] DATE CREATED AUTHOR AUTHOR'S ORGANIZ ATION [facility]/12/2022 [facility] DATE CREATED AUTHOR AUTHOR'S ORGANIZ ATION 03/25/2023 [facility] DATE CREATED AUTHOR AUTHOR'S ORGANIZ ATION 06/25/2023 [facility] DATE CREATED AUTHOR AUTHOR'S ORGANIZ ATION 07/24/2023 [facility] DATE CREATED AUTHOR AUTHOR'S ORGANIZ ATION 08/17/2023 [facility] [place] Source Comments (unrecognize d section and content) In the event this informatio n is protected by the Federal Confidentiality of Alcohol and Drug Abuse Patient Records regulations: The Federal rules restrict any use of the information to criminally investigate or prosecute any alcohol or drug abuse patient.[facility] the event this information is protected by the Federal Confidentiality of Alcohol and Drug Abuse Patient Records regulations: The Federal rules restrict any use of the information to criminally investigate or prosecute any alcohol or drug abuse patient.[facility] the event this information is protected by the Federal Confidentiality of Alcohol and Drug Abuse Patient Records regulations: The Federal rules restrict any use of the information to criminally investigate or prosecute any alcohol or drug abuse patient.[facility] Reason for Visit (unrecogniz ed section and content) Reason Comments New Patient Reason Comments Follow Up Care Teams (unrecognized sec tion and content) 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 Relationship Specialty Start Date End Date Pipe Hopkins MD [address] [place] [address] PCP - General 05/19/11 [facility] [address] [place] [address] Primary Staff Physician Cardiology 09/21/18 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 Relationship Specialty Start Date End Date Pipe Hopkins MD [address] [place] [address] PCP - General 05/19/11 [facility] [address] [place] [address] Primary Staff Physician Cardiology 09/21/18 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 [facility]. provides no warranty or guarantee of the accuracy or completeness of information in this document.
--- OUTSIDE RECORDS SUMMARY | 2024-01-01 06:50 | XMS_ITS | CCD ---
Author Organization [facility] Care Team Providers Care Explosion Welder Name Role Phone PHYSICIAN, DEFAULT Unavailable Unavailable PHYSICIAN, DEFAULT Unavailable Unavailable EVELIA, SUNJUK Unavailable Unavailable EVELIA, SUNJUK Unavailable Unavailable EVELIA, SUNJUK Unavailable Unavailable Pipe Hopkins~[phone] UNKNOWN Unavailable Unavailable Pipe Hopkins MD Primary Care Provider [phone] [place] Unavailable PIPE HOPKINS Primary Care [...] Unavailable Pipe Hopkins MD Primary Care Provider [phone] [place] Unavailable JODI BANERJEE Attending PIPE Rascon Primary Care Unavailable JODI BANERJEE Attending UnavailPIPE Jeong Primary Care Unavailable AYSE BARNES Attending Unavailable IRINEO BOSS Attending Unavailable AYSE BARNES Attending Unavailable AMANDA IRBY Attending Unavailable PIPE HOPKINS Referring Unavailable Allergies Allergy Classification Reported Allergen(s) Allergy Type Date of Onset Reaction(s) Facility (2 sources) atorvastatin; Translations: [Lipitor] Drug Allergy [facility] Repository (5 sources) atorvastatin; Translations: [ATORVASTATIN CALCIUM] Drug Allergy 03-28-2014 [facility] (1 source) atorvastatin; Translations: [ATORVASTATIN] Drug Allergy 03-28-2014 [facility] Repository Medications Completed/Discontinued Medications Medication Drug [...] Coronary arteriosclerosis; Translations: [Atherosclerotic heart disease of kake coronary artery without angina pectoris] Onset: 05-27-2011 [...] Onset: 07-14-2022 Episodic Other aftercare (1 source) half-way (current) use of aspirin; Translations: [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 ADMINISTRATIVE ASSISTANT CURRENT USE OF ASPIRIN] Onset: 07-14-2022 Episodic Other aftercare (1 source) Other extermination supervisor (current) drug therapy; Translations: [OTH ALF CURRENT DRUG THERAPY] Onset: 07-14-2022 Episodic Other [...] 08-11-2023 Bilirubin Ql (U) Negative Normal NEG [place] Comment on above: Performed By: #### U A #### [facility] ([id number]) [address] [place] [address] [place] [address] BLOOD/HGB Negative Normal NEG [facility] Comment on above: Performed By: #### U A #### [facility] ([id number]) [address] [place] [address] [place] [address] Color (U) YELLOW Normal YELLOW [facility] Comment on above: Performed By: #### U A #### [facility] ([id number]) [address] [place] [address] [place] [address] Glucose Ql (U) Negative Normal NEG [facility] Comment on above: Performed By: #### U A #### [facility] ([id number]) [address] [place] [address] [place] [address] Ketones Ql (U) Negative Normal NEG [facility] Comment on above: Performed By: #### U A #### [facility] ([id number]) [address] [place] [address] [place] [address] Leukocyte esterase Test strip Ql (U) Negative Normal NEG [facility] Comment on above: Performed By: #### U A #### [facility] ([id number]) [address] [place] [address] Nitrite Ql (U) Negative Normal NEG [facility] Comment on above: Performed By: #### U A #### [facility] ([id number]) [address] [place] [address] pH (U) 6.0 [pH] Normal 5.0-8.5 [facility] Comment on above: Performed By: #### U A #### [facility] ([id number]) [address] [place] [address] Protein Ql (U) Negative Normal NEG [facility] Comment on above: Performed By: #### U A #### [facility] ([id number]) [address] [place] [address] Specific gravity (U) [Rel density] 1.025 Normal 1.003-1.035 [facility] Comment on above: Performed By: #### U A #### [facility] ([id number]) [address] [place] [address] TURBIDITY CLEAR Normal CLEAR [facility] Comment on above: Performed By: #### U A #### [facility] ([id number]) [address] [place] [address] Urobilinogen Qn (U) 0.2 {Ilene'U}/dL Normal <1.1 [facility] Comment on above: Performed By: #### U A #### [facility] ([id number]) [address] [place] [address] URINE CULTUREon 08-11-2023 Bacteria identified Cx Nom (U) CULTURE RESULTS <10,000 ORGANISMS/ML NORMAL URO GENITAL LOIS Normal [facility] Comment on above: Performed By: #### 6 30-4 #### [facility] ([id number]) [address] [place] [address], [address] [place] [address] Office Visiton 06-24-2023 Follow-up visit [id number] Leanna Nelson 1940 M Date Provider Department Center 06/24/2023 AYSE VIVAR Family History Problem Relation Age of Onset Coronary artery disease Brother Heart attack Brother Heart failure Brother Other Brother Family Status - Relation Status Age at Brother Level of Service:04646 UT OFFICE/OUTPATIENT ESTABLISHED LOW MDM 20 MIN Normal [facility] CNOVon 03-23-2023 CNOV Office Visit (NEUSHF ) LEANNA NELSON ([id number]) 1940 M Date Time Provider Department 03/23/23 2:00 PM JODI BANERJEE During your visit today, we recorded the following information about you: Pulse Blood pressure 51/minute 151/68 Jodi Banerjee, DO 03/23/2023 2:41 PM Signed [facility] Follow-up visit March 23, 2023 HPI: Overall [...] encounter he has moved and low lives [facility]. He states he does not [...] mainly his brother. He has seen by botany professor in 01/2023 with suggestion that he get a hearing aide but he refuses. After his last encounter he has followed up with cardiology concerning his heart rate that was auscultated on last encounter. They checked his heart rhythm and thought it was appropriate. This was as via physician in [place]. They deny other changes to his health and/or medications except for the above since our last encounter. PAST MEDICAL HISTORY Diagnosis Date Arthritis Carotid stenosis Coronary artery disease Coronary atherosclerosis of unspecified type of vessel, kake or graft 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 Dyslipidemia Hypertension Hypertension Hypothyroid Lumbar disc disease Unspecified hypothyroidism Hypothyroidism PAST SURGICAL HISTORY Procedure Laterality Date PAST SURGICAL HISTORY OF CABG times 6 left internal thoracic artery to the [id number] left anterior descending artery, reverse saphenous vein [...] mouth onc (more content not included)... [facility] [place] [facility] Telephone (NEUAV4) LEANNA NELSON ([id number]) 1940 M Date Time Provider Department 03/23/23 [...] he had any further question. 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 Encounter Status:Closed by TERRI SANTOS on 03/23/23 Normal [facility] Office Visiton 12-25-2022 Follow-up visit [id number] Leanna Nelson 1940 M Date Provider Department Center 12/25/2022 367-AYSE BARNES [facility] Family History Problem Relation Age of Onset Coronary artery disease Brother Heart attack Brother Heart failure Brother Other Brother Family Status - Relation Status Age at Brother Level of Service:35617 UT OFFICE/OUTPATIENT ESTABLISHED MOD MDM 30-39 MIN Reason for Visit and Comments: Follow-up [656995] - 3 month follow up Normal [facility] CT CHEST WO CONon 10-27-2022 CT [...] by: LEATHA GAVIRIA Date: 2022-10-27 10:00 Normal [facility] LIPID PROFILEon 09-24-2022 CHOL-HDL RATIO NORM SEE BELOW Normal [facility] Comment on above: Result Comment: 3.3 - 4.4 LOW RISK 4.4 - 7.1 AVERAGE RISK 7.1 - 11.0 MODERATE RISK >11.0 HIGH RISK Performed By: #### L IPID, CMP ####[facility] [place] [facility] [address] [place], [place] [address]HxBud Vásquez Cholesterol [Mass/Vol] 149 mg/dL Normal <=200 [facility] Comment on above: Performed By: #### L IPID, CMP ####[facility] [place] [facility] [address] [place], [place] [address]GbBud Vásquez Cholesterol in HDL [Mass/Vol] 83 mg/dL Critically high 40-60 [facility] Comment on above: Performed By: #### L IPID, CMP ####[facility] [place] [facility] [address] [place] [address]Dr. Aissatou Vásquez Cholesterol in LDL [Mass/Vol] 58.6 mg/dL Normal [facility] Comment on above: Performed By: #### L IPID, CMP ####[facility] [place] [facility] [address] [place] [address]Dr. Aissatou Vásquez Cholesterol.total/Cho lesterol in HDL [Mass ratio] 1.8 {ratio} Normal [facility] Comment on above: Performed By: #### L IPID, CMP ####[facility] [place] [facility] [address] [place] [address]Dr. Aissatou Vásquez HDL NORMAL > or = 60 mg/dl - LO W CARDIOVASCULAR RISK <40 mg/dl - HIGH CARDIOVASCULAR RISK Normal [facility] Comment on above: Performed By: #### L IPID, CMP ####[facility] [place] [facility] [address] [place] [address]Dr. Aissatou Vásquez LDL CALC NORMAL SEE BELOW Normal [facility] Comment on above: Result Comment: <100 mg/dl OPTIMAL 100 - 129 mg/dl NEAR OR ABOVE OPTIMAL 130 - 159 mg/dl BORDERLINE HIGH 160 - 189 mg/dl HIGH >190 mg/dl VERY HIGH Performed By: #### L IPID, CMP ####[facility] [place] [facility] [address] [place] [address]Dr. Aissatou Vásquez Triglyceride [Mass/Vol] 37 mg/dL Normal <=150 [facility] [place] [facility] Comment on above: Performed By: #### L IPID, CMP ####[facility] [place] [facility] [address] [place] [id number]. Aissatou Vásquez VLDL CALC 7.4 mg/dL Normal [facility] Comment on above: Performed By: #### L IPID, CMP ####[facility] [place] [facility] [address] [place] [address]Dr. Aissatou Vásquez PROF 14(COMP METB)on 023 Albumin [Mass/Vol] 3.8 g/dL Normal 3.4-5.0 [facility] Comment on above: Performed By: #### L IPID, CMP ####[facility] [place] [facility] [address] [place] [address]Dr. Aissatou Vásquez Albumin/Globulin [Mass ratio] 1.0 {ratio} Normal [facility] Comment on above: Performed By: #### L IPID, CMP ####[facility] [place] [facility] [address] [place] [address]Dr. Aissatou Vásquez ALP [Catalytic activity/Vol] 98 U/L Normal 46-116 [facility] Comment on above: Performed By: #### L IPID, CMP ####[facility] [place] [facility] [address] [place] [address]Dr. Aissatou Vásquez ALT [Catalytic activity/Vol] 25 U/L Normal 16-63 [facility] Comment on above: Performed By: #### L IPID, CMP ####[facility] [place] [facility] [address] [place] [address]Dr. Aissatou Vásquez Anion gap [Moles/Vol] 15.5 mmol/L Normal [facility] Comment on above: Performed By: #### L IPID, CMP ####[facility] [place] [facility] [address] [place] [address]Dr. Aissatou Vásquez AST [Catalytic activity/Vol] 21 U/L Normal 15-37 [facility] Comment on above: Performed By: #### L IPID, CMP ####[facility] [place] [facility] [address] [place] [address]Dr. Aissatou Vásquez Bilirubin [Mass/Vol] 0.5 mg/dL Normal 0.2-1.0 [facility] Comment on above: Performed By: #### L IPID, CMP ####[facility] [place] [facility] [address] [place] [address]Dr. Aissatou Vásquez Calcium [Mass/Vol] 9.5 mg/dL Normal 8.5-10.1 [facility] Comment on above: Performed By: #### L IPID, CMP ####[facility] [place] [facility] [address] [place] [address]Dr. Aissatou Vásquez Chloride [Moles/Vol] 107 mmol/L Normal 98-107 [facility] Comment on above: Performed By: #### L IPID, CMP ####[facility] [place] [facility] [address] [place], [place] [address]Dr. Aissatou Vásquez CO2 [Moles/Vol] 23.0 mmol/L Normal 21.0-32.0 [facility] Comment on above: Performed By: #### L IPID, CMP ####[facility] [place] [facility] [address] [place], [place] [address]Dr. Aissatou Vásquez Creatinine [Mass/Vol] 1.75 mg/dL Critically high 0.70-1.30 [facility] Comment on above: Performed By: #### L IPID, CMP ####[facility] [place] [facility] [address] [place], [place] [address]Dr. Aissatou Vásquez EGFR-AF STATELESS 45 mL/min/1.73m2 Critically low >=60 [facility] Comment on above: Performed By: #### L IPID, CMP ####[facility] [place] [facility] [address] [place], [place] [address]Dr. Aissatou Vásquez EGFR-NON AF STATELESS 37 mL/min/1.73m2 Critically low >=60 [facility] Comment on above: Performed By: #### L IPID, CMP ####[facility] [place] [facility] [address] [place], [place] [address]Dr. Aissatou Vásquez Globulin (S) [Mass/Vol] 3.7 g/dL Normal [facility] Comment on above: Performed By: #### L IPID, CMP ####[facility] [place] [facility] [address] [place], [place] [address]Dr. Aissatou Vásquez Glucose [Mass/Vol] 83 mg/dL Normal 74-106 [facility] Comment on above: Performed By: #### L IPID, CMP ####[facility] [place] [facility] [address] [place], [place] [address]Dr. Aissatou Vásquez Potassium [Moles/Vol] 4.5 mmol/L Normal 3.5-5.1 [facility] [place] [facility] Comment on above: Performed By: #### L IPID, CMP ####[facility] [place] [facility] [address] [place], [place] [address]Li. Aissatou Vásquez Protein [Mass/Vol] 7.5 g/dL Normal 6.4-8.2 [facility] Comment on above: Performed By: #### L IPID, CMP ####[facility] [place] [facility] [address] [place], [place] [address]Ab. Aissatou Vásquez Sodium [Moles/Vol] 141 mmol/L Normal 136-145 [facility] Comment on above: Performed By: #### L IPID, CMP ####[facility] [place] [facility] [address] [place], [place] [address]Ew. Aissatou Vásquez Urea nitrogen [Mass/Vol] 46.0 mg/dL Critically high 7.0-18.0 [facility] Comment on above: Performed By: #### L IPID, CMP ####[facility] [place] [facility] [address] [place], [place] [address]Jm. Aissatou Vásquez Urea nitrogen/Creatinine [Mass ratio] 26.3 mg/mg Normal [facility] Comment on above: Performed By: #### L IPID, CMP ####[facility] [place] [facility] [address] [place], [place] [address]Zb. Aissatou Vásquez Office Visiton 09-22-2022 Follow-up visit [id number] Leanna Nelson 1940 M Date Provider Department Center 09/22/2022 Alexandrea-IRINEO BOSS [facility] No family history on file Level of Service:29424 UT OFFICE/OUTPATIENT ESTABLISHED MOD MDM 30-39 MIN Reason for Visit and Comments: office visit [Other] - brother made appt had appt with neuro thought they heard something when listening to heart. confirmed Normal [facility] 25([place])D3 [facility] 25-hydroxyvitamin D3 [Mass/Vol] 28.6 ng/mL Low 31.0-80.0 [facility] Comment on above: Order Comment: Speci men Type: BLOOD SPECIMEN Ordering Facility: [facility] Address: [address] [place] [id number] Result Comment: Clas sification of 25 [place] Vitamin D status: Deficiency/Insufficiency: < or = 30 ng/ml. Sufficiency/Optimal Levels: 31-80 ng/mL Toxicity: > 100 ng/mL. Test performed by chemiluminescent immunoassay. Performed By: #### 1 989-3 #### [facility] CLIA [id number] [address] [place] [address] [place] CNOVon 08-27-2022 CNOV Office Visit (NEUAV4 ) GOPILEANNA Torey ([id number]) 1940 M Date Time Provider Department 08/27/22 1:00 PM JODI BANERJEEAV4 During your visit today, we recorded the following information about you: Pulse Blood pressure 69/minute 156/70 Jodi Banerjee DO 08/27/2022 2:35 PM Addendum [facility] [place] New Patient Consultation August 27, 2022 HPI: [...] there. 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 Normal [facility] Reagin and Treponema pallidu m IgG and IgM [Interp]on 08-27-2022 SYPHILIS INTERPRETATION Cannot exclude recent Treponemal infection if specimen collected within 7-10 days after appearance of suspect lesions or 2-3 weeks after an exposure. Clinical correlation is required. Normal [facility] Comment on above: Order Comment: Speci men Type: BLOOD SPECIMEN Ordering Facility: [facility] Address: [address] [place] [address] Performed By: #### 7 3752-8 #### [facility] CLIA [id number] [address] [place] [address] [place] T. pallidum IgG+IgM IA Ql (S) Non-Reactive Normal Nonreactive [facility] Comment on above: Order Comment: Speci men Type: BLOOD SPECIMEN Ordering Facility: [facility] Address: [address] [address] Performed By: #### 7 3752-8 #### [facility] CLIA [id number] [facility] [place] [address] [place] CREATININEon 07-11-2022 Creatinine [Mass/Vol] 2.09 mg/dL Critically high 0.70-1.30 [facility] [place] [facility] Comment on above: Performed By: #### C ADAM #### [facility] [place] [facility] [address] [place] [address] [address] Aissaotu Vásquez EGFR-AF STATELESS 37 mL/min/1.73m2 Critically low >=60 [facility] [place] [facility] Comment on above: Performed By: #### C ADAM #### [facility] [place] [facility] [address] [place] [address] [address] Aissatou Vásquez EGFR-NON AF STATELESS 30 mL/min/1.73m2 Critically low >=60 [facility] [place] [facility] Comment on above: Performed By: #### C ADAM #### [facility] [place] [facility] [address] [place] [address] [address] Aissatou Vásquez MRI BRAIN WO CONon [...] LEATHA GAVIRIA Date: 2022-07-11 15:11 Normal [facility] [place] [facility] CULTURE BLOODon 07-10-2022 Microscopic examination of [...] Tetracycline S P Tobramycin S P Normal [facility] Comment on above: Performed By: #### B LDCX2 ####[facility] [place] [facility] [address] [place] [address]Dr. Aissatou Vásquez CBC AUTO DIFFon 07-04-2022 BASO # 0.0 103/ul Normal 0.0-0.1 [facility] [place] [facility] Comment on above: Performed By: #### L DHARA WAITE, HSTROPN #### [facility] [place] [facility] [address] [address] [address] Aissatou Vásquez Basophils/100 WBC (Bld) 0.3 % Normal 0.2-2.0 [facility] Comment on above: Performed By: #### L DHARA WAITE, HSTROPN #### [facility] [place] [facility] [address] [address] [address] Aissatou Vásquez EO # 0.0 103/ul Normal 0.0-0.7 [facility] [place] [facility] Comment on above: Performed By: #### L DHARA WAITE, HSTROPN #### [facility] [place] [facility] [address] [place] [address] [address] Aissatou Vásquez Eosinophils/100 WBC (Bld) 0.6 % Critically low 0.9-7.0 [facility] [place] [facility] Comment on above: Performed By: #### L DHARA WAITE, HSTROPN #### [facility] [place] [facility] [address] [address] [address] Aissatou Vásquez Erythrocyte distribution width (RBC) [Ratio] 13.7 % Normal 11.0-15.0 [facility] [place] [facility] Comment on above: Performed By: #### L DHARA WAITE, HSTROPN #### [facility] [place] [facility] [address] [place] [address] [address] Aissatou Vásquez Hematocrit (Bld) [Volume fraction] 34.2 % Critically low 42.0-54.0 [facility] [place] [facility] Comment on above: Performed By: #### L IVER, BMP, HSTROPN #### [facility] [place] [facility] [address] [place] [address] Dr. Aissatou Vásquez Hemoglobin (Bld) [Mass/Vol] 10.7 g/dL Critically low 14.0-18.0 [facility] Comment on above: Performed By: #### L IVER, BMP, HSTROPN #### [facility] [place] [facility] [address] [place] [address] Dr. Aissatou Vásquez IG # 0.02 10e3/ul Normal 0.00-0.03 [facility] [place] [facility] Comment on above: Performed By: #### L IVER, BMP, HSTROPN #### [facility] [place] [facility] [address] [place] [address] Dr. Aissatou Vásquez IG % 0.3 % Normal 0.0-0.5 [facility] Comment on above: Performed By: #### L IVER, BMP, HSTROPN #### [facility] [place] [facility] [address] [place] [address] Dr. Aissatou Vásquez LYMPH # 1.7 103/ul Normal 1.2-3.8 [facility] [place] [facility] Comment on above: Performed By: #### L IVER, BMP, HSTROPN #### [facility] [place] [facility] [address] [place] [address] Dr. Aissatou Vásquez Lymphocytes/100 WBC (Bld) 25.6 % Normal 20.5-60.0 [facility] [place] [facility] Comment on above: Performed By: #### L IVER, BMP, HSTROPN #### [facility] [place] [facility] [address] [place] [address] Dr. Aissatou Vásquez MANUAL DIFF REQ NO Normal [facility] Comment on above: Performed By: #### L IVER, BMP, HSTROPN #### [facility] [place] [facility] [address] [place] [address] Dr. Aissatou Vásquez MCH (RBC) [Entitic mass] 29.6 pg Normal 25.9-34.0 [facility] [place] [facility] Comment on above: Performed By: #### L IVER, BMP, HSTROPN #### [facility] [place] [facility] [address] [place] [address] Dr. Aissatou Vásquez MCHC (RBC) [Mass/Vol] 31.3 g/dL Normal 29.9-35.2 [facility] [place] [facility] Comment on above: Performed By: #### L IVER, BMP, HSTROPN #### [facility] [place] [facility] [address] [place] [address] Dr. Aissatou Vásquez MCV (RBC) [Entitic vol] 94.5 fL Critically high 80.0-94.0 [facility] [place] [facility] Comment on above: Performed By: #### L IVER, BMP, HSTROPN #### [facility] [place] [facility] [address] [place] [address] Dr. Aissatou Vásquez MONO # 0.7 103/ul Normal 0.3-0.8 [facility] [place] [facility] Comment on above: Performed By: #### L IVER, BMP, HSTROPN #### [facility] [place] [facility] [address] [place] [address] Dr. Aissatou Vásquez Monocytes/100 WBC (Bld) 11.2 % Normal 1.7-12.0 [facility] [place] [facility] Comment on above: Performed By: #### L IVER, BMP, HSTROPN #### [facility] [place] [facility] [address] [place] [address] Dr. Aissatou Vásquez NEUT # 4.0 103/ul Normal 1.4-6.5 [facility] [place] [facility] Comment on above: Performed By: #### L IVER, BMP, HSTROPN #### [facility] [place] [facility] [address] [place] [address] Dr. Aissatou Vásquez Neutrophils/100 WBC (Bld) 62.0 % Normal 43.0-75.0 [facility] [place] [facility] Comment on above: Performed By: #### L IVER, BMP, HSTROPN #### [facility] [place] [facility] [address] [place] [address] Dr. Aissatou Vásquez Platelet mean volume (Bld) [Entitic vol] 10.4 fL Normal 9.5-13.5 [facility] [place] [facility] Comment on above: Performed By: #### L IVER, BMP, HSTROPN #### [facility] [place] [facility] [address] [address] [address] Aissatou Vásquez PLT 134 103/ul Critically low 150-450 [facility] Comment on above: Performed By: #### L IVER, BMP, HSTROPN #### [facility] [place] [facility] [address] [address] Dr. Aissatou Vásquez RBC 3.62 106/ul Critically low 4.70-6.10 [facility] Comment on above: Performed By: #### L IVER, BMP, HSTROPN #### [facility] [place] [facility] [address] [address] [address] Aissatou Vásquez WBC 6.5 103/ul Normal 4.0-11.0 [facility] Comment on above: Performed By: #### L IVER, BMP, HSTROPN #### [facility] [place] [facility] [address] [place] [address] Dr. Aissatou Vásquez CPKon 07-04-2022 CK [Catalytic activity/Vol] 149 U/L Normal 39-308 [facility] Comment on above: Performed By: #### L IVER, BMP, HSTROPN #### [facility] [address] [address] [address] Aissatou Vásquez MAGNESIUMon 07-04-2022 Magnesium [Mass/Vol] 1.7 mg/dL Critically low 1.8-2.4 [facility] Comment on above: Performed By: #### L IVER, BMP, HSTROPN #### [facility] [address] [address] [address] Aissatou Vásquez PHOSPHORUSon 07-04-2022 Phosphate [Mass/Vol] 3.6 mg/dL Normal 2.6-4.7 [facility] Comment on above: Performed By: #### L IVER, BMP, HSTROPN #### [facility] [address] [place] [address] Dr. Aissatou Vásquez PROF 14(COMP METB)on Albumin [Mass/Vol] 2.8 g/dL Critically low 3.4-5.0 [facility] Comment on above: Performed By: #### L IVER, BMP, HSTROPN #### [facility] [address] [address] [address] Aissatou Vásquez Albumin/Globulin [Mass ratio] 0.9 {ratio} Normal [facility] Comment on above: Performed By: #### L IVER, BMP, HSTROPN #### [facility] [address] [place] [address] Dr. Aissatou Vásquez ALP [Catalytic activity/Vol] 86 U/L Normal 46-116 [facility] Comment on above: Performed By: #### L IVER, BMP, HSTROPN #### [facility] [address] [place] [address] Dr. Aissatou Vásquez ALT [Catalytic activity/Vol] 50 U/L Normal 16-63 [facility] Comment on above: Performed By: #### L IVER, BMP, HSTROPN #### [facility] [address] [place] [address] Dr. Aissatou Vásquez Anion gap [Moles/Vol] 11.6 mmol/L Normal [facility] Comment on above: Performed By: #### L IVER, BMP, HSTROPN #### [facility] [address] [place] [address] Dr. Aissatou Vásquez AST [Catalytic activity/Vol] 41 U/L Critically high 15-37 [facility] Comment on above: Performed By: #### L IVER, BMP, HSTROPN #### [facility] [address] [place] [address] Dr. Aissatou Vásquez Bilirubin [Mass/Vol] 0.4 mg/dL Normal 0.2-1.0 [facility] Comment on above: Performed By: #### L IVER, BMP, HSTROPN #### [facility] [address] [place] [address] Dr. Aissatou Vásquez Calcium [Mass/Vol] 8.7 mg/dL Normal 8.5-10.1 [facility] Comment on above: Performed By: #### L IVER, BMP, HSTROPN #### [facility] [address] [place] [address] Dr. Aissatou Vásquez Chloride [Moles/Vol] 106 mmol/L Normal 98-107 [facility] Comment on above: Performed By: #### L IVER, BMP, HSTROPN #### [facility] [address] [place] [address] Dr. Aissatou Vásquez CO2 [Moles/Vol] 27.0 mmol/L Normal 21.0-32.0 [facility] Comment on above: Performed By: #### L IVER, BMP, HSTROPN #### [facility] [place] [facility] [address] [place] [address] Dr. Aissatou Vásquez Creatinine [Mass/Vol] 1.99 mg/dL Critically high 0.70-1.30 [facility] Comment on above: Performed By: #### L IVER, BMP, HSTROPN #### [facility] [address] [place] [address] Dr. Aissatou Vásquez EGFR-AF STATELESS 39 mL/min/1.73m2 Critically low >=60 [facility] Comment on above: Performed By: #### L IVER, BMP, HSTROPN #### [facility] [place] [facility] [address] [place] [address] Dr. Aissatou Vásquez EGFR-NON AF STATELESS 32 mL/min/1.73m2 Critically low >=60 [facility] Comment on above: Performed By: #### L IVER, BMP, HSTROPN #### [facility] [place] [facility] [address] [place] [address] Dr. Aissatou Vásquez Globulin (S) [Mass/Vol] 3.1 g/dL Normal [facility] Comment on above: Performed By: #### L IVER, BMP, HSTROPN #### [facility] [place] [facility] [address] [place] [address] Dr. Aissatou Vásquez Glucose [Mass/Vol] 93 mg/dL Normal 74-106 [facility] Comment on above: Performed By: #### L IVER, BMP, HSTROPN #### [facility] [place] [facility] [address] [place] [address] Dr. Aissatou Vásquez Potassium [Moles/Vol] 4.6 mmol/L Normal 3.5-5.1 [facility] Comment on above: Performed By: #### L DHARA WAITE, HSTROPN #### [facility] [place] [facility] [address] [address] [address] Aissatou Vásquez Protein [Mass/Vol] 5.9 g/dL Critically low 6.4-8.2 [facility] Comment on above: Performed By: #### L IVDHARA LANDRY, HSTROPN #### [facility] [place] [facility] [address] [address] [address] Aissatou Vásquez Sodium [Moles/Vol] 140 mmol/L Normal 136-145 [facility] Comment on above: Performed By: #### L IVDHARA LANDRY, HSTROPN #### [facility] [place] [facility] [address] [address] [address] Aissatou Vásquez Urea nitrogen [Mass/Vol] 50.0 mg/dL Critically high 7.0-18.0 [facility] Comment on above: Performed By: #### L IVDHARA LANDRY, HSTROPN #### [facility] [place] [facility] [address] [address] [address] Aissatou Vásquez Urea nitrogen/Creatinine [Mass ratio] 25.1 mg/mg Normal [facility] Comment on above: Performed By: #### L DHARA WAITE, HSTROPN #### [facility] [place] [facility] [address] [address] [address] Aissatou Vásquez PROTIMEon 07-04-2022 INR Coag (PPP) [Relative time] 1.05 {INR} Normal [facility] Comment on above: Performed By: #### C ADAM #### [facility] [place] [facility] [address] [address] [address] Aissatou Vásquez INR GUIDELINES SEE BELOW Normal [facility] Comment on above: Result Comment: ELISABETH RED INR: 2.0 - 3.0 CONDITIONS NOT LISTED BELOW 2.5 - 3.5 FOR PROSTHETIC HEART VALVE REPLACEMENT 2.5 - 3.5 RECURRENT THROMBOSIS Performed By: #### C ADAM #### [facility] [place] [facility] [address] [place] [address] Dr. Aissatou Vásquez PT Coag (PPP) [Time] 11.3 s Normal 9.0-11.6 [facility] Comment on above: Performed By: #### C AADM #### [facility] [place] [facility] [address] [place] [address] Dr. Aissatou Vásquez CBC AUTO DIFFon 07-03-2022 BASO # 0.0 103/ul Normal 0.0-0.1 [facility] [place] [facility] Comment on above: Performed By: #### L IVER, BMP, HSTROPN #### [facility] [place] [facility] [address] [place] [address] Dr. Aissatou Vásquez Basophils/100 WBC (Bld) 0.3 % Normal 0.2-2.0 [facility] Comment on above: Performed By: #### L IVER, BMP, HSTROPN #### [facility] [place] [facility] [address] [place] [address] Dr. Aissatou Vásquez EO # 0.0 103/ul Normal 0.0-0.7 [facility] [place] [facility] Comment on above: Performed By: #### L IVER, BMP, HSTROPN #### [facility] [place] [facility] [address] [place] [address] Dr. Aissatou Vásquez Eosinophils/100 WBC (Bld) 0.3 % Critically low 0.9-7.0 [facility] Comment on above: Performed By: #### L IVER, BMP, HSTROPN #### [facility] [place] [facility] [address] [place] [address] Dr. Aissatou Vásquez Erythrocyte distribution width (RBC) [Ratio] 13.8 % Normal 11.0-15.0 [facility] Comment on above: Performed By: #### L IVER, BMP, HSTROPN #### [facility] [place] [facility] [address] [place] [address] Dr. Aissatou Vásquez Hematocrit (Bld) [Volume fraction] 31.7 % Critically low 42.0-54.0 [facility] Comment on above: Performed By: #### L IVER, BMP, HSTROPN #### [facility] [place] [facility] [address] [place] [address] Dr. Aissatou Vásquez Hemoglobin (Bld) [Mass/Vol] 10.2 g/dL Critically low 14.0-18.0 [facility] Comment on above: Performed By: #### L IVER, BMP, HSTROPN #### [facility] [place] [facility] [address] [address] [address] Aissatou Vásquez IG # 0.02 10e3/ul Normal 0.00-0.03 [facility] Comment on above: Performed By: #### L IVER, BMP, HSTROPN #### [facility] [place] [facility] [address] [place] [address] Dr. Aissatou Vásquez IG % 0.3 % Normal 0.0-0.5 [facility] Comment on above: Performed By: #### L IVER, BMP, HSTROPN #### [facility] [place] [facility] [address] [place] [address] Dr. Aissatou Vásquez LYMPH # 1.5 103/ul Normal 1.2-3.8 [facility] Comment on above: Performed By: #### L IVER, BMP, HSTROPN #### [facility] [address] [place] [address] Dr. Aissatou Vásquez Lymphocytes/100 WBC (Bld) 20.3 % Critically low 20.5-60.0 [facility] Comment on above: Performed By: #### L IVER, BMP, HSTROPN #### [facility] [place] [facility] [address] [place] [address] Dr. Aissatou Vásquez MANUAL DIFF REQ NO Normal [facility] Comment on above: Performed By: #### L IVER, BMP, HSTROPN #### [facility] [place] [facility] [address] [place] [address] Dr. Aissatou Vásquez MCH (RBC) [Entitic mass] 30.3 pg Normal 25.9-34.0 [facility] Comment on above: Performed By: #### L IVER, BMP, HSTROPN #### [facility] [place] [facility] [address] [place] [address] Dr. Aissatou Vásquez MCHC (RBC) [Mass/Vol] 32.2 g/dL Normal 29.9-35.2 [facility] Comment on above: Performed By: #### L IVER, BMP, HSTROPN #### [facility] [place] [facility] [address] [place] [address] Dr. Aissatou Vásquez MCV (RBC) [Entitic vol] 94.1 fL Critically high 80.0-94.0 [facility] Comment on above: Performed By: #### L IVER, BMP, HSTROPN #### [facility] [place] [facility] [address] [place] [address] Dr. Aissatou Vásquez MONO # 0.7 103/ul Normal 0.3-0.8 [facility] [place] [facility] Comment on above: Performed By: #### L IVER, BMP, HSTROPN #### [facility] [place] [facility] [address] [place] [address] Dr. Aissatou Vásquez Monocytes/100 WBC (Bld) 9.9 % Normal 1.7-12.0 [facility] Comment on above: Performed By: #### L IVER, BMP, HSTROPN #### [facility] [place] [facility] [address] [place] [address] Dr. Aissatou Vásquez NEUT # 4.9 103/ul Normal 1.4-6.5 [facility] [place] [facility] Comment on above: Performed By: #### L IVER, BMP, HSTROPN #### [facility] [place] [facility] [address] [place] [address] Dr. Aissatou Vásquez Neutrophils/100 WBC (Bld) 68.9 % Normal 43.0-75.0 [facility] [place] [facility] Comment on above: Performed By: #### L IVER, BMP, HSTROPN #### [facility] [place] [facility] [address] [place] [address] Dr. Aissatou Vásquez Platelet mean volume (Bld) [Entitic vol] 10.7 fL Normal 9.5-13.5 [facility] [place] [facility] Comment on above: Performed By: #### L IVER, BMP, HSTROPN #### [facility] [place] [facility] [address] [place] [address] Dr. Aissatou Vásquez PLT 141 103/ul Critically low 150-450 [facility] Comment on above: Performed By: #### L IVER, BMP, HSTROPN #### [facility] [place] [facility] [address] [address] [address] Aissatou Vásquez RBC 3.37 106/ul Critically low 4.70-6.10 [facility] Comment on above: Performed By: #### L IVER, BMP, HSTROPN #### [facility] [place] [facility] [address] [address] [address] Aissatou Vásquez WBC 7.1 103/ul Normal 4.0-11.0 [facility] Comment on above: Performed By: #### L IVER, BMP, HSTROPN #### [facility] [place] [facility] [address] [address] [address] Aissatou Vásquez CPKon 07-03-2022 CK [Catalytic activity/Vol] 331 U/L Critically high 39-308 [facility] Comment on above: Performed By: #### L IVER, BMP, HSTROPN #### [facility] [place] [facility] [address] [address] [address] Aissatou Vásquez CT ABD/PELVIS WO CONon [...] STEPHEN ROUSE Date: 2022-07-03 11:06 Normal [facility] [place] [facility] CULTURE BLOODon 07-03-2022 Microscopic examination of blood, culture Culture Observations: NO GROWTH AT 5 DAYS. Normal [facility] Comment on above: Performed By: #### B LDCX2 ####[facility] [place] [facility] [address] [address]Dr. Aissatou Vásquez Microscopic examination of blood, culture Culture Observations: NO GROWTH AT 5 DAYS. Normal [facility] Comment on above: Performed By: #### B LDCX1 ####[facility] [place] [facility] [address] [address]Dr. Aissatou Vásquez MAGNESIUMon 07-03-2022 Magnesium [Mass/Vol] 1.8 mg/dL Normal 1.8-2.4 [facility] Comment on above: Performed By: #### DHARA KONG HSTROPN #### [facility] [place] [facility] [address] [address] [address] Aissatou Vásquez PHOSPHORUSon 07-03-2022 Phosphate [Mass/Vol] 4.0 mg/dL Normal 2.6-4.7 [facility] Comment on above: Performed By: #### DHARA KONG HSTROPN #### [facility] [place] [facility] [address] [address] [address] Aissatou Vásquez POINT OF CARE GLUCOSEon 06-06 Glucose [Mass/Vol] 77 mg/dL Normal 74-106 [facility] Comment on above: Performed By: #### Soni ADAM #### [facility] [place] [facility] [address] [address] [address] Aissatou Vásquez PROF 14(COMP METB)on 022 Albumin [Mass/Vol] 2.6 g/dL Critically low 3.4-5.0 [facility] Comment on above: Performed By: #### L IVER, BMP, HSTROPN #### [facility] [place] [facility] [address] [address] [address] Aissatou Vásquez Albumin/Globulin [Mass ratio] 0.9 {ratio} Normal [facility] Comment on above: Performed By: #### L IVER, BMP, HSTROPN #### [facility] [place] [facility] [address] [address] [address] Aissatou Vásquez ALP [Catalytic activity/Vol] 81 U/L Normal 46-116 [facility] Comment on above: Performed By: #### L IVER, BMP, HSTROPN #### [facility] [place] [facility] [address] [place] [address] Dr. Aissatou Vásquez ALT [Catalytic activity/Vol] 46 U/L Normal 16-63 [facility] Comment on above: Performed By: #### L IVER, BMP, HSTROPN #### [facility] [place] [facility] [address] [place] [address] Dr. Aissatou Vásquez Anion gap [Moles/Vol] 11.9 mmol/L Normal [facility] Comment on above: Performed By: #### L IVER, BMP, HSTROPN #### [facility] [place] [facility] [address] [place] [address] Dr. Aissatou Vásquez AST [Catalytic activity/Vol] 45 U/L Critically high 15-37 [facility] Comment on above: Performed By: #### L IVER, BMP, HSTROPN #### [facility] [place] [facility] [address] [address] [address] Aissatou Vásquez Bilirubin [Mass/Vol] 0.2 mg/dL Normal 0.2-1.0 [facility] Comment on above: Performed By: #### L IVER, BMP, HSTROPN #### [facility] [place] [facility] [address] [place] [address] Dr. Aissatou Vásquez Calcium [Mass/Vol] 8.5 mg/dL Normal 8.5-10.1 [facility] Comment on above: Performed By: #### L IVER, BMP, HSTROPN #### [facility] [place] [facility] [address] [address] [address] Aissatou Vásquez Chloride [Moles/Vol] 108 mmol/L Critically high 98-107 [facility] [place] [facility] Comment on above: Performed By: #### L IVER, BMP, HSTROPN #### [facility] [place] [facility] [address] [address] [address] Aissatou Vásquez CO2 [Moles/Vol] 25.9 mmol/L Normal 21.0-32.0 [facility] Comment on above: Performed By: #### L IVER, BMP, HSTROPN #### [facility] [place] [facility] [address] [place] [address] Dr. Aissatou Vásquez Creatinine [Mass/Vol] 2.34 mg/dL Critically high 0.70-1.30 [facility] Comment on above: Performed By: #### L IVER, BMP, HSTROPN #### [facility] [place] [facility] [address] [place] [address] Dr. Aissatou Vásquez EGFR-AF STATELESS 32 mL/min/1.73m2 Critically low >=60 [facility] Comment on above: Performed By: #### L IVER, BMP, HSTROPN #### [facility] [place] [facility] [address] [place] [address] Dr. Aissatou Vásquez EGFR-NON AF STATELESS 27 mL/min/1.73m2 Critically low >=60 [facility] Comment on above: Performed By: #### L IVER, BMP, HSTROPN #### [facility] [place] [facility] [address] [address] [address] Aissatou Vásquez Globulin (S) [Mass/Vol] 3.0 g/dL Normal [facility] [place] [facility] Comment on above: Performed By: #### L IVER, BMP, HSTROPN #### [facility] [place] [facility] [address] [place] [address] Dr. Aissatou Vásquez Glucose [Mass/Vol] 93 mg/dL Normal 74-106 [facility] Comment on above: Performed By: #### L IVER, BMP, HSTROPN #### [facility] [place] [facility] [address] [place] [address] Dr. Aissatou Vásquez Potassium [Moles/Vol] 4.8 mmol/L Normal 3.5-5.1 [facility] Comment on above: Performed By: #### L IVDHARA LANDRY, HSTROPN #### [facility] [place] [facility] [address] [address] [address] Aissatou Vásquez Protein [Mass/Vol] 5.6 g/dL Critically low 6.4-8.2 [facility] Comment on above: Performed By: #### L IVFRANTZ BMP, HSTROPN #### [facility] [place] [facility] [address] [address] [address] Aissatou Vásquez Sodium [Moles/Vol] 141 mmol/L Normal 136-145 [facility] Comment on above: Performed By: #### L IVFRANTZ BMP, HSTROPN #### [facility] [place] [facility] [address] [place] [address] Dr. Aissatou Vásquez Urea nitrogen [Mass/Vol] 61.0 mg/dL Critically high 7.0-18.0 [facility] Comment on above: Performed By: #### L IVDHARA LANDRY, HSTROPN #### [facility] [place] [facility] [address] [place] [address] Dr. Aissatou Vásquez Urea nitrogen/Creatinine [Mass ratio] 26.1 mg/mg Normal [facility] Comment on above: Performed By: #### L IVDHARA LANDRY, HSTROPN #### [facility] [place] [facility] [address] [place] [address] Dr. Aissatou Vásquez PROTIMEon 07-03-2022 INR Coag (PPP) [Relative time] 1.12 {INR} Normal [facility] Comment on above: Performed By: #### C ADAM #### [facility] [place] [facility] [address] [place] [address] Dr. Aissatou Vásquez INR GUIDELINES SEE BELOW Normal [facility] Comment on above: Result Comment: ELISABETH RED INR: 2.0 - 3.0 CONDITIONS NOT LISTED BELOW 2.5 - 3.5 FOR PROSTHETIC HEART VALVE REPLACEMENT 2.5 - 3.5 RECURRENT THROMBOSIS Performed By: #### C ADAM #### [facility] [place] [facility] [address] [address] [address] Aissatou Vásquez PT Coag (PPP) [Time] 12.0 s Critically high 9.0-11.6 [facility] [place] [facility] Comment on above: Performed By: #### C ADAM #### [facility] [address] [address] [address] Aissatou Vásquez CBC AUTO DIFFon 07-02-2022 BASO # 0.0 103/ul Normal 0.0-0.1 [facility] [place] [facility] Comment on above: Performed By: #### C BC ####[facility] [place] [facility] [address] [address]DrBud Vásquez Basophils/100 WBC (Bld) 0.1 % Critically low 0.2-2.0 [facility] [place] [facility] Comment on above: Performed By: #### C BC ####[facility] [place] [facility] [address] [place], [place] [address]Dr. Aissatou Vásquez EO # 0.0 103/ul Normal 0.0-0.7 [facility] [place] [facility] Comment on above: Performed By: #### C BC ####[facility] [place] [facility] [address] [address]Dr. Aissatou Vásquez Eosinophils/100 WBC (Bld) 0.0 % Critically low 0.9-7.0 [facility] [place] [facility] Comment on above: Performed By: #### C BC ####[facility] [place] [facility] [address] [place], [place] [address]DrBud Vásquez Erythrocyte distribution width (RBC) [Ratio] 13.4 % Normal 11.0-15.0 [facility] [place] [facility] Comment on above: Performed By: #### C BC ####[facility] [place] [facility] [address] [place], [place] [address]Dr. Aissatou Vásquez Hematocrit (Bld) [Volume fraction] 39.9 % Critically low 42.0-54.0 [facility] Comment on above: Performed By: #### C BC ####[facility] [address] [place], [place] [address]DrBud Vásquez Hemoglobin (Bld) [Mass/Vol] 12.8 g/dL Critically low 14.0-18.0 [facility] [place] [facility] Comment on above: Performed By: #### C BC ####[facility] [place] [facility] [address] [id number]. Sheysarah Vásquez IG # 0.05 10e3/ul Critically high 0.00-0.03 [facility] Comment on above: Performed By: #### C BC ####[facility] [place] [facility] [address] [id number]. Aissatou Vásquez IG % 0.4 % Normal 0.0-0.5 [facility] Comment on above: Performed By: #### C BC ####[facility] [place] [facility] [address] [address]Dr. Aissatou Vásquez LYMPH # 0.8 103/ul Critically low 1.2-3.8 [facility] Comment on above: Performed By: #### C BC ####[facility] [place] [facility] [address] [address]Dr. Aissatou Vásquez Lymphocytes/100 WBC (Bld) 7.2 % Critically low 20.5-60.0 [facility] Comment on above: Performed By: #### C BC ####[facility] [place] [facility] [address] [address]Dr. Aissatou Vásquez MANUAL DIFF REQ NO Normal [facility] Comment on above: Performed By: #### C BC ####[facility] [place] [facility] [address] [id number]. Aissatou Vásquez MCH (RBC) [Entitic mass] 30.0 pg Normal 25.9-34.0 [facility] Comment on above: Performed By: #### C BC ####[facility] [place] [facility] [address] [id number]. Aissatou Vásquez MCHC (RBC) [Mass/Vol] 32.1 g/dL Normal 29.9-35.2 [facility] [place] [facility] Comment on above: Performed By: #### C BC ####[facility] [address] [address]Dr. Aissatou Vásquez MCV (RBC) [Entitic vol] 93.7 fL Normal 80.0-94.0 [facility] Comment on above: Performed By: #### C BC ####[facility] [place] [facility] [address] [id number]. Aissatou Vásquez MONO # 0.8 103/ul Normal 0.3-0.8 [facility] [place] [facility] Comment on above: Performed By: #### C BC ####[facility] [address] [id number]. Aissatou Vásquez Monocytes/100 WBC (Bld) 6.8 % Normal 1.7-12.0 [facility] [place] [facility] Comment on above: Performed By: #### C BC ####[facility] [place] [facility] [address] [id number]. Aissatou Vásquez NEUT # 9.8 103/ul Critically high 1.4-6.5 [facility] Comment on above: Performed By: #### C BC ####[facility] [address] [address]Dr. Aissatou Vásquez Neutrophils/100 WBC (Bld) 85.5 % Critically high 43.0-75.0 [facility] [place] [facility] Comment on above: Performed By: #### C BC ####[facility] [address] [id number]. Aissatou Vásquez Platelet mean volume (Bld) [Entitic vol] 10.8 fL Normal 9.5-13.5 [facility] [place] [facility] Comment on above: Performed By: #### C BC ####[facility] [address] [id number]. Aissatou Vásquez PLT 170 103/ul Normal 150-450 [facility] Comment on above: Performed By: #### C BC ####[facility] [address] [id number]. Aissatou Vásquez RBC 4.26 106/ul Critically low 4.70-6.10 [facility] Comment on above: Performed By: #### C BC ####[facility] [address] [id number]. Aissatou Vásquez WBC 11.4 103/ul Critically high 4.0-11.0 [facility] Comment on above: Performed By: #### C BC ####[facility] [address] [place], [place] [address]QwDr. Aissatou Vásquez CKMBon 07-02-2022 CK.MB [Mass/Vol] 80.91 ng/mL Critically high <=3.60 Th [facility] Comment on above: Performed By: #### L IVER, BMP, HSTROPN #### [facility] [place] [facility] [address], [place] [address] Dr. Aissatou Vásquez CPKon 07-02-2022 CK [Catalytic activity/Vol] 915 U/L Critically high 39-308 [facility] Comment on above: Performed By: #### L IVER, BMP, HSTROPN #### [facility] [place] [facility] [address], [place] [address] Dr. Aissatou Vásquez ECHOCARDIO M/2D COMPLETEon 1 09-02-2021 ECHOCARDIO M/2D COMPLETE Patient: LEANNA NELSON Exam Date: 07/02/2022 : 1940 Gender:M Ordering : SHAIKH Delphine RODRIGUEZ . Admission #: [id number] Family : DR PIPE HOPKINS . Order #: [id number] CLICK HERE TO VIEW EXAM ECHOCARDIOGRAM REPORT [...] Cameron M.D. on 07/08/2022 at 09:55 Normal [facility] MAGNESIUMon 07-02-2022 Magnesium [Mass/Vol] 1.9 mg/dL Normal 1.8-2.4 [facility] Comment on above: Performed By: #### L DHARA WAITE, HSTROPN #### [facility] [place] [facility] [address] [address] [address] Aissatou Vásquez MYOGLOBINon 07-02-2022 SARAH 1312 ng/mL Critically high 16-96 [facility] Comment on above: Performed By: #### L DHARA WAITE, HSTROPN #### [facility] [place] [facility] [address] [address] [address] Aissatou Vásquez PHOSPHORUSon 07-02-2022 Phosphate [Mass/Vol] 6.0 mg/dL Critically high 2.6-4.7 [facility] Comment on above: Performed By: #### L DHARA WAITE, HSTROPN #### [facility] [place] [facility] [address] [address] [address] Aissatou Vásquez POINT OF CARE GLUCOSEon 06-06 Glucose [Mass/Vol] 78 mg/dL Normal 74-106 [facility] Comment on above: Performed By: #### C ADAM #### [facility] [place] [facility] [address] [address] [address] Aissatou Vásquez Glucose [Mass/Vol] 104 mg/dL Normal 74-106 [facility] Comment on above: Performed By: #### P OCGLUC ####[facility] [place] [facility] [address] [address]Dr. Aissatou Vásquez Glucose [Mass/Vol] 83 mg/dL Normal 74-106 [facility] Comment on above: Performed By: #### L IVER, BMP, HSTROPN #### [facility] [place] [facility] [address] [address] [address] Aissatou Vásquez Glucose [Mass/Vol] 100 mg/dL Normal 74-106 [facility] Comment on above: Performed By: #### C ADAM #### [facility] [place] [facility] [address] [address] [address] Aissatou Vásquez Glucose [Mass/Vol] 73 mg/dL Critically low 74-106 [facility] Comment on above: Performed By: #### P OCGLUC ####[facility] [place] [facility] [address] [address]Dr. Aissatou Vásquez PROF 14(COMP METB)on 022 Albumin [Mass/Vol] 3.3 g/dL Critically low 3.4-5.0 [facility] Comment on above: Performed By: #### L IVER, BMP, HSTROPN #### [facility] [place] [facility] [address] [address] [address] Aissatou Vásquez Albumin/Globulin [Mass ratio] 1.0 {ratio} Normal [facility] Comment on above: Performed By: #### L IVER, BMP, HSTROPN #### [facility] [place] [facility] [address] [address] [address] Aissatou Vásquez ALP [Catalytic activity/Vol] 114 U/L Normal 46-116 [facility] Comment on above: Performed By: #### L IVER, BMP, HSTROPN #### [facility] [place] [facility] [address] [address] [address] Aissatou Vásquez ALT [Catalytic activity/Vol] 48 U/L Normal 16-63 [facility] Comment on above: Performed By: #### L IVER, BMP, HSTROPN #### [facility] [place] [facility] [address] [address] [address] Aissatou Vásquez Anion gap [Moles/Vol] 17.3 mmol/L Normal [facility] Comment on above: Performed By: #### L IVER, BMP, HSTROPN #### [facility] [place] [facility] [address] [place] [address] Dr. Aissatuo Vásquez AST [Catalytic activity/Vol] 68 U/L Critically high 15-37 [facility] Comment on above: Performed By: #### L IVER, BMP, HSTROPN #### [facility] [place] [facility] [address] [address] [address] Aissatou Vásquez Bilirubin [Mass/Vol] 0.5 mg/dL Normal 0.2-1.0 [facility] Comment on above: Performed By: #### L IVER, BMP, HSTROPN #### [facility] [place] [facility] [address] [place] [address] Dr. Aissatou Vásquez Calcium [Mass/Vol] 8.9 mg/dL Normal 8.5-10.1 [facility] Comment on above: Performed By: #### L IVER, BMP, HSTROPN #### [facility] [place] [facility] [address] [place] [address] Dr. Aissatou Vásquez Chloride [Moles/Vol] 109 mmol/L Critically high 98-107 [facility] [place] [facility] Comment on above: Performed By: #### L IVER, BMP, HSTROPN #### [facility] [place] [facility] [address] [address] [address] Aissatou Vásquez CO2 [Moles/Vol] 22.8 mmol/L Normal 21.0-32.0 [facility] Comment on above: Performed By: #### L IVER, BMP, HSTROPN #### [facility] [place] [facility] [address] [place] [address] Dr. Aissatou Vásquez Creatinine [Mass/Vol] 1.89 mg/dL Critically high 0.70-1.30 [facility] Comment on above: Performed By: #### L IVER, BMP, HSTROPN #### [facility] [place] [facility] [address] [place] [address] Dr. Aissatou Vásquez EGFR-AF STATELESS 41 mL/min/1.73m2 Critically low >=60 [facility] Comment on above: Result Comment: Prev iously reported as: (blank) On 07/02/2022 05:50 By KD3 Performed By: #### L IVER, BMP, HSTROPN #### [facility] [place] [facility] [address] [address] [address] Aissatou Vásquez EGFR-NON AF STATELESS 34 mL/min/1.73m2 Critically low >=60 [facility] Comment on above: Result Comment: Prev iously reported as: (blank) On 07/02/2022 05:50 By KD3 Performed By: #### L IVER, BMP, HSTROPN #### [facility] [place] [facility] [address] [address] [address] Aissatou Vásquez Globulin (S) [Mass/Vol] 3.4 g/dL Normal [facility] Comment on above: Performed By: #### L IVER, BMP, HSTROPN #### [facility] [place] [facility] [address] [place] [address] Dr. Aissatou Vásquez Glucose [Mass/Vol] 86 mg/dL Normal 74-106 [facility] Comment on above: Performed By: #### L IVER, BMP, HSTROPN #### [facility] [place] [facility] [address] [place] [address] Dr. Aissatou Vásquez Potassium [Moles/Vol] 5.1 mmol/L Normal 3.5-5.1 [facility] [place] [facility] Comment on above: Performed By: #### L IVER, BMP, HSTROPN #### [facility] [place] [facility] [address] [address] [address] Aissatou Vásquez Protein [Mass/Vol] 6.7 g/dL Normal 6.4-8.2 [facility] Comment on above: Performed By: #### L IVER, BMP, HSTROPN #### [facility] [place] [facility] [address] [address] [address] Aissatou Vásquez Sodium [Moles/Vol] 144 mmol/L Normal 136-145 [facility] Comment on above: Performed By: #### L IVER, BMP, HSTROPN #### [facility] [place] [facility] [address] [place] [address] Dr. Aissatou Vásquez Urea nitrogen [Mass/Vol] 55.0 mg/dL Critically high 7.0-18.0 [facility] Comment on above: Performed By: #### L IVER, BMP, HSTROPN #### [facility] [place] [facility] [address] [address] [address] Aissatou Vásquez Urea nitrogen/Creatinine [Mass ratio] 29.1 mg/mg Normal [facility] [place] [facility] Comment on above: Performed By: #### L IVER, BMP, HSTROPN #### [facility] [place] [facility] [address] [address] [address] Aissatou Vásquez PROTIMEon 07-02-2022 INR Coag (PPP) [Relative time] 1.13 {INR} Normal [facility] Comment on above: Performed By: #### L IVER, BMP, HSTROPN #### [facility] [place] [facility] [address] [place] [address] Dr. Aissatou Vásquez INR GUIDELINES SEE BELOW Normal [facility] Comment on above: Result Comment: ELISABETH RED INR: 2.0 - 3.0 CONDITIONS NOT LISTED BELOW 2.5 - 3.5 FOR PROSTHETIC HEART VALVE REPLACEMENT 2.5 - 3.5 RECURRENT THROMBOSIS Performed By: #### L IVER, BMP, HSTROPN #### [facility] [place] [facility] [address] [place] [address] Dr. Aissatou Vásquez PT Coag (PPP) [Time] 12.1 s Critically high 9.0-11.6 [facility] [place] [facility] Comment on above: Performed By: #### L IVER, BMP, HSTROPN #### [facility] [place] [facility] [address] [place] [address] Dr. Aissatou Vásquez BLOOD CULTURE ID PANELon A. baumannii Not detected Normal NOT DETECTED [facility] Comment on above: Performed By: #### C ADAM #### [facility] [place] [facility] [address] [place] [address] Dr. Aissatou Vásquez Bacteriodes fragilis Not detected Normal NOT DETECTED [facility] [place] [facility] Comment on above: Performed By: #### C ADAM #### [facility] [place] [facility] [address] [place] [address] Dr. Aissatou Vásquez BCID CONTROLS PASSED Normal [facility] Comment on above: Performed By: #### C ADAM #### [facility] [place] [facility] [address] [place] [address] Dr. Aissatou Vásquez BCIDBTHD BLOOD CULTURE BOTTLE INFORMATION [facility] Comment on above: Performed By: #### C ADAM #### [facility] [place] [facility] [address] [place] [address] Dr. Aissatou Vásquez BCIDHD1 ANTIMICROBIAL RESISTANCE GENES [facility] Comment on above: Performed By: #### C ADAM #### [facility] [place] [facility] [address] [place] [address] Dr. Aissatou Vásquez BCIDHD2 SEE BELOW [facility] Comment on above: Result Comment: Note : Antimicrobial resitance can occur via multiple mechanisms. A Not Detected result for the [employer] antomicrobial resistance gene assays does not indicate antimicrobial susceptibility. Subculturing is required for species identification and susceptibility testing of isolates. Performed By: #### C ADAM #### [facility] [place] [facility] [address] [place] [address] Dr. Aissatou Vásquez BCIDHD3 Positive [facility] Comment on above: Performed By: #### C ADAM #### [facility] [place] [facility] [address] [place] [address] Dr. Aissatou Vásquez BCIDHD4 Negative [facility] Comment on above: Performed By: #### C ADAM #### [facility] [place] [facility] [address] [place] [address] Dr. Aissatou Vásquez BCIDHD5 YEAST Normal [facility] Comment on above: Performed By: #### C ADAM #### [facility] [place] [facility] [address] [place] [address] Dr. Aissatou Vásquez Bottle Set: Set 2 [facility] Comment on above: Performed By: #### C ADAM #### [facility] [place] [facility] [address] [place] [address] Dr. Aissatou Vásquez Bottle: Pediatric Normal [facility] Comment on above: Performed By: #### C ADAM #### [facility] [place] [facility] [address] [place] [address] Dr. Aissatou Vásquez C. neoformans/gattii Not detected Normal NOT DETECTED [facility] Comment on above: Performed By: #### C ADAM #### [facility] [place] [facility] [address] [place] [address] Dr. Aissatou Vásquez Soraya albicans Not detected Normal NOT DETECTED [facility] [place] [facility] Comment on above: Performed By: #### C ADAM #### [facility] [place] [facility] [address] [address] [address] Aissatou Vásquez Soraya auris Not detected Normal NOT DETECTED [facility] Comment on above: Performed By: #### C ADAM #### [facility] [place] [facility] [address] [place] [address] Dr. Aissatou Vásquez Soraya glabrata Not detected Normal NOT DETECTED [facility] [place] [facility] Comment on above: Performed By: #### C ADAM #### [facility] [place] [facility] [address] [place] [address] Dr. Aissatou Vásquez Soraya Krusei Not detected Normal NOT DETECTED [facility] Comment on above: Performed By: #### C ADAM #### [facility] [place] [facility] [address] [place] [address] Dr. Aissatou Vásquez Soraya Parapsilosis Not detected Normal NOT DETECTED [facility] [place] [facility] Comment on above: Performed By: #### C ADAM #### [facility] [place] [facility] [address] [place] [address] Dr. Aissatou Vásquez Soraya Tropicalis Not detected Normal NOT DETECTED [facility] Comment on above: Performed By: #### C ADAM #### [facility] [place] [facility] [address] [place] [address] Dr. Aissatou Vásquez CTX-M Resistant Gene Not detected Normal NOT DETECTED [facility] [place] [facility] Comment on above: Performed By: #### C ADAM #### [facility] [place] [facility] [address] [place] [address] Dr. Aissatou Vásquez E. Cloacae complex Not detected Normal NOT DETECTED [facility] Comment on above: Performed By: #### C ADAM #### [facility] [place] [facility] [address] [place] [address] Dr. Aissatou Vásquez E. faecalis Not detected Normal NOT DETECTED [facility] Comment on above: Performed By: #### C ADAM #### [facility] [place] [facility] [address] [place] [address] Dr. Aissatou Vásquez E. faecium Not detected Normal NOT DETECTED [facility] Comment on above: Performed By: #### C ADAM #### [facility] [place] [facility] [address] [place] [address] Dr. Aissatou Vásquez Enterobacteriaceae Detected Critically abnormal NOT DETECTED [facility] [place] [facility] Comment on above: Performed By: #### C ADAM #### [facility] [place] [facility] [address] [place] [address] Dr. Aissatou Vásquez Escherichia coli Not detected Normal NOT DETECTED [facility] [place] [facility] Comment on above: Performed By: #### C ADAM #### [facility] [place] [facility] [address] [place] [address] Dr. Aissatou Vásquez H. influenzae Not detected Normal NOT DETECTED [facility] Comment on above: Performed By: #### C ADAM #### [facility] [place] [facility] [address] [place] [address] Dr. Aissatou Vásquez IMP Resistant Gene Not detected Normal NOT DETECTED [facility] Comment on above: Performed By: #### C ADAM #### [facility] [place] [facility] [address] [place] [address] Dr. Aissatou Vásquez K. oxytoca Not detected Normal NOT DETECTED [facility] Comment on above: Performed By: #### C ADAM #### [facility] [place] [facility] [address] [place] [address] Dr. Aissatou Vásquez K. pneumoniae Not detected Normal NOT DETECTED [facility] Comment on above: Performed By: #### C ADAM #### [facility] [place] [facility] [address] [place] [address] Dr. Aissatou Vásquez Klebsiella aerogenes Not detected Normal NOT DETECTED [facility] [place] [facility] Comment on above: Performed By: #### C ADAM #### [facility] [place] [facility] [address] [place] [address] Dr. Aissatou Vásquez KPC Resistant Gene Not detected Normal NOT DETECTED [facility] Comment on above: Performed By: #### C ADAM #### [facility] [place] [facility] [address] [place] [address] Dr. Aissatou Vásquez List. monocytogenes Not detected Normal NOT DETECTED [facility] Comment on above: Performed By: #### C ADAM #### [facility] [place] [facility] [address] [place] [address] Dr. Aissatou Vásquez Mcr-1 Resistant Gene Not Applicable Normal NOT DETECTE D [facility] Comment on above: Performed By: #### C ADAM #### [facility] [place] [facility] [address] [place] [address] Dr. Aissatou Vásquez mecA/C Not Applicable Normal NOT DETECTED [facility] Comment on above: Performed By: #### C ADAM #### [facility] [place] [facility] [address] [place] [address] Dr. Aissatou Vásquez mecA/C MREJ Not Applicable Normal NOT DETECTED [facility] Comment on above: Performed By: #### C ADAM #### [facility] [place] [facility] [address] [place] [address] Dr. Aissatou Vásquez N. meningitidis Not detected Normal NOT DETECTED [facility] Comment on above: Performed By: #### C ADAM #### [facility] [place] [facility] [address] [place] [address] Dr. Aissatou Vásquez NDM Resistant Gene Not detected Normal NOT DETECTED [facility] Comment on above: Performed By: #### C ADAM #### [facility] [place] [facility] [address] [place] [address] Dr. Aissatou Vásquez Oxa-48-like Not detected Normal NOT DETECTED [facility] Comment on above: Performed By: #### C ADAM #### [facility] [place] [facility] [address] [place] [address] Dr. Aissatou Vásquez Proteus Not detected Normal NOT DETECTED [facility] Comment on above: Performed By: #### C ADAM #### [facility] [place] [facility] [address] [place] [address] Dr. Aissatou Vásquez Pseud. aeruginosa Not detected Normal NOT DETECTED [facility] [place] [facility] Comment on above: Performed By: #### C ADAM #### [facility] [place] [facility] [address] [place] [address] Dr. Aissatou Vásquez S. maltophilia Not detected Normal NOT DETECTED [facility] Comment on above: Performed By: #### C ADAM #### [facility] [place] [facility] [address] [place] [address] Dr. Aissatou Vásquez Salmonella Not detected Normal NOT DETECTED [facility] Comment on above: Performed By: #### C ADAM #### [facility] [place] [facility] [address] [address] [address] Aissatou Vásquez Seratia marcescens Not detected Normal NOT DETECTED [facility] Comment on above: Performed By: #### C ADAM #### [facility] [place] [facility] [address] [place] [address] Dr. Aissatou Vásquez Site: IV Normal [facility] Comment on above: Performed By: #### C ADAM #### [facility] [place] [facility] [address] [place] [address] Dr. Aissatou Vásquez Staph. aureus Not detected Normal NOT DETECTED [facility] Comment on above: Performed By: #### C ADAM #### [facility] [place] [facility] [address] [place] [address] Dr. Aissatou Vásquez Staph. epidermidis Not detected Normal NOT DETECTED [facility] Comment on above: Performed By: #### C ADAM #### [facility] [place] [facility] [address] [place] [address] Dr. Aissatou Vásquez Staph. lugdunensis Not detected Normal NOT DETECTED [facility] Comment on above: Performed By: #### C ADAM #### [facility] [place] [facility] [address] [place] [address] Dr. Aissatou Vásquez Staphylococcus Not detected Normal NOT DETECTED [facility] Comment on above: Performed By: #### C ADAM #### [facility] [place] [facility] [address] [place] [address] Dr. Aissatou Vásquez Strep. agalactiae Not detected Normal NOT DETECTED [facility] [place] [facility] Comment on above: Performed By: #### C ADAM #### [facility] [place] [facility] [address] [place] [address] Dr. Aissatou Vásquez Strep. pneumoniae Not detected Normal NOT DETECTED [facility] Comment on above: Performed By: #### C ADAM #### [facility] [place] [facility] [address] [place] [address] Dr. Aissatou Vásquez Strep. pyogenes Not detected Normal NOT DETECTED [facility] Comment on above: Performed By: #### C ADAM #### [facility] [place] [facility] [address] [address] [address] Aissatou Vásquez Streptococcus Not detected Normal NOT DETECTED [facility] Comment on above: Performed By: #### C ADAM #### [facility] [place] [facility] [address] [address] [address] Aissatou Vásquez Akila/B Resist. Gene Not Applicable Normal NOT DETECTED [facility] Comment on above: Performed By: #### C ADAM #### [facility] [place] [facility] [address] [place] [address] Dr. Aissatou Vásquez VIM Resistant Gene Not detected Normal NOT DETECTED [facility] Comment on above: Performed By: #### C ADAM #### [facility] [place] [facility] [address] [place] [address] Dr. Aissatou Vásquez CBC W MANUAL DIFFon 07-01-20 22 ATYPICAL LYMPH # Normal [facility] Comment on above: Performed By: #### C BCMAN ####[facility] [place] [facility] [address] [place], [place] [address]Dr. Aissatou Vásquez ATYPICAL LYMPH % Normal [facility] Comment on above: Performed By: #### C BCMAN ####[facility] [place] [facility] [address] [place], [place] [address]Dr. Aissatou Vásquez BAND # 0.4 103/ul Critically high 0.0-0.3 [facility] Comment on above: Performed By: #### C BCMAN ####[facility] [place] [facility] [address] [address]Dr. Sheylan Vásquez BAND % 3 % Normal 0-5 [facility] [place] [facility] Comment on above: Performed By: #### C BCMAN ####[facility] [place] [facility] [address] [address]Dr. Aissatou Vásquez BASOM # 0.00 103/ul Normal 0.00-0.10 [facility] [place] [facility] Comment on above: Performed By: #### C BCMAN ####[facility] [place] [facility] [address] [place], [place] [address]Dr. Aissatou Vásquez BASOM % 0.0 % Critically low 0.2-2.0 [facility] Comment on above: Performed By: #### C BCMAN ####[facility] [place] [facility] [address] [address]Dr. Aissatou Vásquez BLAST # Normal [facility] Comment on above: Performed By: #### C BCMAN ####[facility] [place] [facility] [address] [id number]. Aissatou Vásquez BLAST % Normal [facility] [place] [facility] Comment on above: Performed By: #### C BCMAN ####[facility] [place] [facility] [address] [id number]. Aissatou Vásquez CORRECTED WBC Normal 4.0-11.0 [facility] Comment on above: Performed By: #### C BCMAN ####[facility] [place] [facility] [address] [place], [place] [address]Dr. Aissatou Vásquez EOS # 0.12 103/ul Normal 0.00-0.70 [facility] [place] [facility] Comment on above: Performed By: #### C BCMAN ####[facility] [place] [facility] [address] [address]Dr. Aissatou Vásquez EOS% 1.0 % Normal 0.9-7.0 [facility] [place] [facility] Comment on above: Performed By: #### C BCMAN ####[facility] [place] [facility] [address] [place], [place] [address]Dr. Aissatou Vásquez HCT 46.0 % Normal 42.0-54.0 [facility] [place] [facility] Comment on above: Performed By: #### C BCMAN ####[facility] [place] [facility] [address] [address]Dr. Aissatou Vásquez HGB 14.6 g/dl Normal 14.0-18.0 [facility] [place] [facility] Comment on above: Performed By: #### C BCMAN ####[facility] [place] [facility] [address] [place], [place] [address]Dr. Aissatou Vásquez LYMPHM # 0.62 103/ul Critically low 1.20-3.80 [facility] Comment on above: Performed By: #### C BCMAN ####[facility] [place] [facility] [address] [id number]. Aissatou Vásquez LYMPHM% 5.0 % Critically low 20.5-60.0 [facility] Comment on above: Performed By: #### C ABUNDIO ####[facility] [place] [facility] [address] [id number]. Aissatou Vásquez MCH 29.9 pg Normal 25.9-34.0 [facility] [place] [facility] Comment on above: Performed By: #### C ABUNDIO ####[facility] [place] [facility] [address] [id number]. Aissatou Vásquez MCHC 31.7 g/dl Normal 29.9-35.2 [facility] [place] [facility] Comment on above: Performed By: #### C ABUNDIO ####[facility] [place] [facility] [address] [place], [place] [address]Dr. Aissatou Vásquez MCV 94.1 fL Critically high 80.0-94.0 [facility] Comment on above: Performed By: #### C ABUNDIO ####[facility] [place] [facility] [address] [place], [place] [address]Dr. Aissatou Vásquez METAMYELOCYTE # Normal [facility] Comment on above: Performed By: #### C ABUNDIO ####[facility] [place] [facility] [address] [place], [place] [address]Dr. Aissatou Vásquez METAMYELOCYTE % Normal [facility] Comment on above: Performed By: #### C ABUNDIO ####[facility] [place] [facility] [id number] [place] [address]Dr. Aissatou Vásquez MONOM# 0.62 103/ul Normal 0.30-0.80 [facility] [place] [facility] Comment on above: Performed By: #### C ABUNDIO ####[facility] [place] [facility] [address] [place] [id number]. Aissatou Vásquez MONOM% 5.0 % Normal 1.7-12.0 [facility] [place] [facility] Comment on above: Performed By: #### C ABUNDIO ####[facility] [place] [facility] [address] [place] [address]Dr. Aissatou Vásquez MPV 10.4 fL Normal 9.5-13.5 [facility] [place] [facility] Comment on above: Performed By: #### C BCRITCHIE ####[facility] [place] [facility] [address] [place], [place] [address]Ln. Aissatou Vásquez MYELOCYTE # Normal [facility] Comment on above: Performed By: #### C BCMAN ####[facility] [place] [facility] [address] [place], [place] [address]Dx. Aissatou Vásquez MYELOCYTE % Normal [facility] Comment on above: Performed By: #### C BCMAN ####[facility] [place] [facility] [address] [place], [place] [address]Xl. Aissatou Vásquez NRBC Normal [facility] Comment on above: Performed By: #### C ABUNDIO ####[facility] [place] [facility] [address] [place] [id number]. Aissatou Vásquez PLT 171 103/ul Normal 150-450 [facility] Comment on above: Performed By: #### C ABUNDIO ####[facility] [place] [facility] [address] [place] [id number]. Aissatou Vásquez RBC 4.89 106/ul Normal 4.70-6.10 [facility] Comment on above: Performed By: #### C BCRITCHIE ####[facility] [place] [facility] [address] [place] [id number]. Aissatou Vásquez RDW 13.4 % Normal 11.0-15.0 [facility] Comment on above: Performed By: #### C BCRITCHIE ####[facility] [place] [facility] [address] [place] [id number]. Aissatou Vásquez SEG # 10.66 103/ul Critically high 1.40-6.50 [facility] Comment on above: Performed By: #### C BCRITCHIE ####[facility] [place] [facility] [address] [place], [place] [address]Hr. Aissatou Vásquez SEG % 86.0 % Critically high 43.0-75.0 [facility] Comment on above: Performed By: #### C BCRITCHIE ####[facility] [place] [facility] [address] [place], [place] [address]Zy. Aissatou Vásquez WBC 12.4 103/ul Critically high 4.0-11.0 [facility] Comment on above: Performed By: #### C ABUNDIO ####[facility] [place] [facility] [address] [place], [place] [address]VzDr. Aissatou Vásquez CPKon 07-01-2022 CK [Catalytic activity/Vol] 1646 U/L Critically high 39-308 [facility] [place] [facility] Comment on above: Performed By: #### L IVER, BMP, HSTROPN #### [facility] [place] [facility] [address] [place], [place] [address] Dr[address] Aissatou Vásquez [address] CSPINE WO CONon [...] KOKO ROMANO Date: 2022-07-01 19:22 Normal [facility] [place] [facility] CT STROKE HEAD WOon 07-01-20 22 [...] BERNADETTE BEDOLLA Date: 2022-07-01 17:37 Normal [facility] [place] [facility] CULTURE BLOODon 07-01-2022 Microscopic examination of blood, culture Culture Observations: NO GROWTH AT 5 DAYS. Normal [facility] [place] [facility] Comment on above: Performed By: #### B LDCX1 ####[facility] [place] [facility] [address] [place] [address]Dr. Aissatou Fahad Covid-19 PCR ([facility]on 06-06 SARS-CoV-2 (COVID-19) RNA HALLE+probe Ql (Unsp spec) Not detected Normal NOT DETECTED [facility] [place] [facility] Comment on above: Result Comment: When [...] for this test is supported by the Bank Compliance Officer of Health and Human Service's declaration that [...] By: #### L CHANNINGER, BMP, HSTROPN #### [facility] [place] [facility] [address] [place] [address] Dr. Aissatou Vásquez DRUG SCREEN RAPID (URINE)on 07-01-2022 AMP Negative Normal NEGATIVE [facility] Comment on above: Performed By: #### C ADAM #### [facility] [place] [facility] [address] [place] [address] [address] Aissatou Vásquez BAR Negative Normal NEGATIVE [facility] Comment on above: Performed By: #### C ADAM #### [facility] [place] [facility] [address] [place] [address] Dr. Aissatou Vásquez BUP Negative Normal NEGATIVE [facility] Comment on above: Performed By: #### C ADAM #### [facility] [place] [facility] [address] [place] [address] Dr. Aissatou Vásquez BZO Negative Normal NEGATIVE [facility] Comment on above: Performed By: #### C ADAM #### [facility] [place] [facility] [address] [address] [address] Aissatou Vásquez MARYJANE Negative Normal NEGATIVE [facility] Comment on above: Performed By: #### C ADAM #### [facility] [place] [facility] [address] [place] [address] Dr. Aissatou Vásquez CUT-OFFS SEE BELOW Normal [facility] [place] [facility] Comment on above: Result Comment: AMP [...] ng/mL Performed By: #### C ADAM #### [facility] [place] [facility] [address] [place] [address] Dr. Aissatou Vásquez DRUG CUT HEADER DRUG CLASS TEST SYSTEM CUT-OFF CONCENTRATIONS ARE FOLLOWS: Normal [facility] Comment on above: Performed By: #### C ADAM #### [facility] [place] [facility] [address] [place] [address] Dr. Aissatou Vásquez mAMP Negative Normal NEGATIVE [facility] Comment on above: Performed By: #### C ADAM #### [facility] [place] [facility] [address] [address] [address] Aissatou Vásquez MTD Negative Normal NEGATIVE [facility] Comment on above: Performed By: #### C ADAM #### [facility] [place] [facility] [address] [place] [address] Dr. Aissatou Vásquez OPI Negative Normal NEGATIVE [facility] Comment on above: Performed By: #### C ADAM #### [facility] [place] [facility] [address] [place] [address] Dr. Aissatou Vásquez OXY Negative Normal NEGATIVE [facility] Comment on above: Performed By: #### C ADAM #### [facility] [place] [facility] [address] [address] [address] Aissatou Vásquez PCP Negative Normal NEGATIVE [facility] Comment on above: Performed By: #### C ADAM #### [facility] [place] [facility] [address] [place] [address] Dr. Aissatou Vásquez PPX Negative Normal NEGATIVE [facility] Comment on above: Performed By: #### C ADAM #### [facility] [place] [facility] [address] [place] [address] Dr. Aissatou Vásquez TCA Negative Normal NEGATIVE [facility] Comment on above: Performed By: #### C ADAM #### [facility] [place] [facility] [address] [place] [address] Dr. Aissatou Vásquez THC Negative Normal NEGATIVE [facility] Comment on above: Performed By: #### C ADAM #### [facility] [place] [facility] [address] [place] [address] Dr. Aissatou Vásquez ER URINE PROFILEon 12-27-202 2 Bilirubin Ql (U) Negative Normal NEGATIVE [facility] Comment on above: Performed By: #### C ADAM #### [facility] [place] [facility] [address] [place] [address] Dr. Aissatou Vásquez Clarity (U) CLEAR Normal CLEAR [facility] Comment on above: Performed By: #### C ADAM #### [facility] [place] [facility] [address] [place] [address] Dr. Aissatou Vásquez Color (U) YELLOW Normal YELLOW [facility] Comment on above: Performed By: #### C ADAM #### [facility] [place] [facility] [address] [place] [address] Dr. Aissatou BECKWITH A micrscopic examination will be performed if indicated. Normal [facility] Comment on above: Performed By: #### C ADAM #### [facility] [place] [facility] [address] [place] [address] Dr. Aissatou Vásquez Glucose Ql (U) Negative Normal NEGATIVE [facility] Comment on above: Performed By: #### C ADAM #### [facility] [place] [facility] [address] [place] [address] Dr. Aissatou Vásquez Hemoglobin Ql (U) MODERATE Abnormal NEGATIVE [facility] Comment on above: Performed By: #### C ADAM #### [facility] [place] [facility] [address] [place] [address] Dr. Aissatou Vásquez Ketones Ql (U) 15 mg/dl Abnormal NEGATIVE [facility] Comment on above: Performed By: #### C ADAM #### [facility] [place] [facility] [address] [place] [address] Dr. Aissatou Vásquez LEUKOCYTES Negative Normal NEGATIVE [facility] Comment on above: Performed By: #### C ADAM #### [facility] [place] [facility] [address] [place] [address] Dr. Aissatou Vásquez Nitrite Ql (U) Negative Normal NEGATIVE [facility] Comment on above: Performed By: #### C ADAM #### [facility] [place] [facility] [address] [place] [address] Dr. Aissatou Vásquez pH (U) 5.0 [pH] Normal 5-9 [facility] [place] [facility] Comment on above: Performed By: #### C ADAM #### [facility] [place] [facility] [address] [place] [address] Dr. Aissatou Vásquez SPEC GRAVITY 1.025 Normal 1.005-<=1.025 [facility] Comment on above: Performed By: #### C ADAM #### [facility] [place] [facility] [address] [place] [address] Dr. Aissatou Vásquez UA PROTEIN TRACE Normal NEGATIVE/ TRACE [facility] Comment on above: Performed By: #### C ADAM #### [facility] [place] [facility] [address] [place] [address] Dr. Aissatou Vásquez UR MICRO IND INDICATED Normal [facility] Comment on above: Performed By: #### C ADAM #### [facility] [place] [facility] [address] [place] [address] Dr. Aissatou Vásquez Urobilinogen Qn (U) 0.2 {Ilene'U}/dL Normal 0.2 - 1. 0 [facility] Comment on above: Performed By: #### C ADAM #### [facility] [place] [facility] [address] [place] [address] Dr. Aissatou Vásquez LIVER PROFILEon 07-01-2022 Albumin [Mass/Vol] 3.7 g/dL Normal 3.4-5.0 [facility] Comment on above: Performed By: #### L IVER, BMP, HSTROPN #### [facility] [place] [facility] [address] [place] [address] Dr. Aissatou Vásquez Albumin/Globulin [Mass ratio] 0.9 {ratio} Normal [facility] Comment on above: Performed By: #### L IVER, BMP, HSTROPN #### [facility] [place] [facility] [address] [place] [address] Dr. Aissatou Vásquez ALP [Catalytic activity/Vol] 143 U/L Critically high 46-116 [facility] Comment on above: Performed By: #### L IVER, BMP, HSTROPN #### [facility] [place] [facility] [address] [place] [address] Dr. Aissatou Vásquez ALT [Catalytic activity/Vol] 56 U/L Normal 16-63 [facility] Comment on above: Performed By: #### L IVER, BMP, HSTROPN #### [facility] [place] [facility] [address] [address] [address] Aissatou Vásquez AST [Catalytic activity/Vol] 87 U/L Critically high 15-37 [facility] Comment on above: Performed By: #### L IVER, BMP, HSTROPN #### [facility] [place] [facility] [address] [place] [address] Dr. Aissatou Vásquez BILI, CONJUGATED 0.2 mg/dL Normal 0.0-0.2 [facility] Comment on above: Performed By: #### L IVER, BMP, HSTROPN #### [facility] [place] [facility] [address] [place] [address] Dr. Aissatou Vásquez Bilirubin [Mass/Vol] 0.6 mg/dL Normal 0.2-1.0 [facility] Comment on above: Performed By: #### L IVER, BMP, HSTROPN #### [facility] [place] [facility] [address] [place] [address] Dr. Aissatou Vásquez Globulin (S) [Mass/Vol] 3.9 g/dL Normal [facility] Comment on above: Performed By: #### L IVER, BMP, HSTROPN #### [facility] [place] [facility] [address] [place] [address] Dr. Aissatou Vásquez Protein [Mass/Vol] 7.6 g/dL Normal 6.4-8.2 [facility] Comment on above: Performed By: #### L IVER, BMP, HSTROPN #### [facility] [place] [facility] [address] [place] [address] Dr. Aissatou Vásquez MYOGLOBINon 07-01-2022 SARAH 2042 ng/mL Critically high 16-96 [facility] Comment on above: Performed By: #### L IVER, BMP, HSTROPN #### [facility] [place] [facility] [address] [place] [address] Dr. Aissatou Vásquez PROF CHEM 8 (BAS METB)on Anion gap [Moles/Vol] 18.5 mmol/L Normal [facility] Comment on above: Performed By: #### L IVER, BMP, HSTROPN #### [facility] [place] [facility] [address] [place] [address] [address] Aissatou Vásquez Calcium [Mass/Vol] 9.8 mg/dL Normal 8.5-10.1 [facility] Comment on above: Performed By: #### L IVER, BMP, HSTROPN #### [facility] [place] [facility] [address] [place] [address] [address] Aissatou Vásquez Chloride [Moles/Vol] 104 mmol/L Normal 98-107 [facility] Comment on above: Performed By: #### L IVER, BMP, HSTROPN #### [facility] [place] [facility] [address] [place] [address] Dr. Aissatou Vásquez CO2 [Moles/Vol] 24.3 mmol/L Normal 21.0-32.0 [facility] Comment on above: Performed By: #### L IVER, BMP, HSTROPN #### [facility] [place] [facility] [address] [place] [address] [address] Aissatou Vásquez Creatinine [Mass/Vol] 1.74 mg/dL Critically high 0.70-1.30 [facility] Comment on above: Performed By: #### L IVER, BMP, HSTROPN #### [facility] [place] [facility] [address] [place] [address] Dr. Aissatou Vásquez EGFR-AF STATELESS 46 mL/min/1.73m2 Critically low >=60 [facility] Comment on above: Performed By: #### L IVER, BMP, HSTROPN #### [facility] [place] [facility] [address] [place] [address] Dr. Aissatou Vásquez EGFR-NON AF STATELESS 38 mL/min/1.73m2 Critically low >=60 [facility] Comment on above: Performed By: #### L IVER, BMP, HSTROPN #### [facility] [place] [facility] [address] [place] [address] Dr. Aissatou Vásquez Glucose [Mass/Vol] 115 mg/dL Critically high 74-106 [facility] Comment on above: Performed By: #### L IVER, BMP, HSTROPN #### [facility] [place] [facility] [address] [place] [address] [address] Aissatou Vásquez Potassium [Moles/Vol] 4.8 mmol/L Normal 3.5-5.1 [facility] Comment on above: Performed By: #### L IVER, BMP, HSTROPN #### [facility] [place] [facility] [address] [address] [address] Aissatou Vásquez Sodium [Moles/Vol] 142 mmol/L Normal 136-145 [facility] Comment on above: Performed By: #### L IVER, BMP, HSTROPN #### [facility] [place] [facility] [address] [address] [address] Aissatou Vásquez Urea nitrogen [Mass/Vol] 54.0 mg/dL Critically high 7.0-18.0 [facility] Comment on above: Performed By: #### L IVER, BMP, HSTROPN #### [facility] [place] [facility] [address] [place] [address] [address] Aissatou Vásquez Urea nitrogen/Creatinine [Mass ratio] 31.0 mg/mg Normal [facility] Comment on above: Performed By: #### L IVER, BMP, HSTROPN #### [facility] [place] [facility] [address] [place] [address] [address] Aissatou Vásquez TROPONIN, HIGH SENSITIVITYon 07-01-2022 HSTROP 102.3 pg/mL Critically high 4.0-76.1 [facility] Comment on above: Result Comment: CUT- OFF POINTS HAVE BEEN ESTABLISHED BASED ON THE FOURTH UNIVERSAL DEFINITIONS OF MYOCARDIAL INFARCTION. THE UPPER REFERENCE LIMIT (URL) OF TROPONIN, DEFINED THE 99TH PERCENTILE OF cTnI DISTRIBUTION IN A REFERENCE POPULATION, HAS BEEN CONFIRMED THE DECISION THRESHOLD FOR [place] DIAGNOSIS. Performed By: #### H STROPN ####[facility] [place] [facility] [address] [place] [address]Dr. Aissatou Vásquez HSTROP 132.4 pg/mL Critically high 4.0-76.1 [facility] Comment on above: Result Comment: CUT- OFF POINTS HAVE BEEN ESTABLISHED BASED ON THE FOURTH UNIVERSAL DEFINITIONS OF MYOCARDIAL INFARCTION. THE UPPER REFERENCE LIMIT (URL) OF TROPONIN, DEFINED THE 99TH PERCENTILE OF cTnI DISTRIBUTION IN A REFERENCE POPULATION, HAS BEEN CONFIRMED THE DECISION THRESHOLD FOR TN DIAGNOSIS. Performed By: #### L DHARA WAITE, HSTROPN #### [facility] [place] [facility] [address] [place] [address] Dr. Aissatou Vásquez TSHon 07-01-2022 TSH 7.840 uIU/mL Critically high 0.358-3.740 [facility] Comment on above: Performed By: #### L DHARA WAITE, HSTROPN #### [facility] [place] [facility] [address] [place] [address] Dr. Aissatou Vásquez URINE MICROSCOPIC ONLYon BACTERIA NONE SEEN Normal NONE SEEN [facility] Comment on above: Performed By: #### C ADAM #### [facility] [place] [facility] [address] [place] [address] Dr. Aissatou Vásquez Bacteria identified Cx Nom (U) NOT INDICATED Normal [facility] [place] [facility] Comment on above: Performed By: #### C ADAM #### [facility] [place] [facility] [address] [place] [address] Dr. Aissatou Vásquez CAST NONE SEEN Normal NONE SEEN [facility] Comment on above: Performed By: #### C ADAM #### [facility] [place] [facility] [address] [place] [address] Dr. Aissatou Vásquez Crystals LM Nom (Urine sed) NONE SEEN Normal NONE SEEN [facility] Comment on above: Performed By: #### C ADAM #### [facility] [place] [facility] [address] [place] [address] Dr. Aissatou Vásquez Epithelial cells LM Ql (Urine sed) RARE Normal NONE SEEN /RARE [facility] [place] [facility] Comment on above: Performed By: #### C ADAM #### [facility] [place] [facility] [address] [place] [address] Dr. Aissatou Vásquez MUCOUS TRACE Abnormal NONE SEEN [facility] [place] [facility] Comment on above: Performed By: #### C ADAM #### [facility] [place] [facility] [address] [place] [address] Dr. Aissatou Vásquez RBC 2-5 Abnormal 0-2 [facility] [place] [facility] Comment on above: Performed By: #### C ADAM #### [facility] [place] [facility] [address] [place] [address] Dr. Aissatou Vásquez WBC 2-5 Abnormal NONE SEEN [facility] [place] [facility] Comment on above: Performed By: #### C ADAM #### [facility] [place] [facility] [address] [place] [address] Dr. Aissatou Vásquez XR CHEST 1 Von [...] Jhony TOTH Date: 2022-07-01 18:01 Normal [facility] [place] [facility] AMMONIAon 06-05-2022 Ammonia (P) [Mass/Vol] ug/dL Critically low [facility] [place] [facility] Comment on above: Performed By: #### L IVER, BMP, HSTROPN #### [facility] [place] [facility] [address] [place] [address] Dr. Aissatou Vásquez BNPon 06-05-2022 Natriuretic peptide B (Bld) [Mass/Vol] 672.0 pg/mL Normal <=1,800.0 [facility] [place] [facility] Comment on above: Performed By: #### T SH, CMP, FT3, BNP, T4, LIPID #### [facility] [place] [facility] [address] [address] [address] Aissatou Vásquez CBC AUTO DIFFon 06-05-2022 BASO # 0.0 103/ul Normal 0.0-0.1 [facility] [place] [facility] Comment on above: Performed By: #### C ADAM #### [facility] [place] [facility] [address] [place] [address] Dr. Aissatou Vásquez Basophils/100 WBC (Bld) 0.6 % Normal 0.2-2.0 [facility] [place] [facility] Comment on above: Performed By: #### C ADAM #### [facility] [place] [facility] [address] [place] [address] Dr. Aissatou Vásquez EO # 0.0 103/ul Normal 0.0-0.7 [facility] [place] [facility] Comment on above: Performed By: #### C ADAM #### [facility] [place] [facility] [address] [place] [address] Dr. Aissatou Vásquez Eosinophils/100 WBC (Bld) 0.6 % Critically low 0.9-7.0 [facility] Comment on above: Performed By: #### C ADAM #### [facility] [place] [facility] [address] [place] [address] Dr. Aissatou Vásquez Erythrocyte distribution width (RBC) [Ratio] 13.7 % Normal 11.0-15.0 [facility] Comment on above: Performed By: #### C AADM #### [facility] [place] [facility] [address] [place] [address] Dr. Aissatou Vásquez Hematocrit (Bld) [Volume fraction] 40.7 % Critically low 42.0-54.0 [facility] Comment on above: Performed By: #### C ADAM #### [facility] [place] [facility] [address] [place] [address] Dr. Aissatou Vásquez Hemoglobin (Bld) [Mass/Vol] 12.8 g/dL Critically low 14.0-18.0 [facility] Comment on above: Performed By: #### C ADAM #### [facility] [place] [facility] [address] [place] [address] Dr. Aissatou Vásquez IG # 0.01 10e3/ul Normal 0.00-0.03 [facility] [place] [facility] Comment on above: Performed By: #### C ADAM #### [facility] [place] [facility] [address] [place] [address] Dr. Aissatou Vásquez IG % 0.2 % Normal 0.0-0.5 [facility] [place] [facility] Comment on above: Performed By: #### C ADAM #### [facility] [place] [facility] [address] [place] [address] Dr. Aissatou Vásquez LYMPH # 1.7 103/ul Normal 1.2-3.8 [facility] [place] [facility] Comment on above: Performed By: #### C ADAM #### [facility] [place] [facility] [address] [place] [address] Dr. Aissatou Vásquez Lymphocytes/100 WBC (Bld) 27.5 % Normal 20.5-60.0 [facility] [place] [facility] Comment on above: Performed By: #### C ADAM #### [facility] [place] [facility] [address] [place] [address] Dr. Aissatou Vásquez MANUAL DIFF REQ NO Normal [facility] Comment on above: Performed By: #### C ADAM #### [facility] [place] [facility] [address] [place] [address] Dr. Aissatou Vásquez MCH (RBC) [Entitic mass] 30.3 pg Normal 25.9-34.0 [facility] [place] [facility] Comment on above: Performed By: #### C ADAM #### [facility] [place] [facility] [address] [place] [address] Dr. Aissatou Vásquez MCHC (RBC) [Mass/Vol] 31.4 g/dL Normal 29.9-35.2 [facility] [place] [facility] Comment on above: Performed By: #### C ADAM #### [facility] [place] [facility] [address] [place] [address] Dr. Aissatou Vásquez MCV (RBC) [Entitic vol] 96.2 fL Critically high 80.0-94.0 [facility] [place] [facility] Comment on above: Performed By: #### C ADAM #### [facility] [place] [facility] [address] [place] [address] Dr. Aissatou Vásquez MONO # 0.6 103/ul Normal 0.3-0.8 [facility] [place] [facility] Comment on above: Performed By: #### C ADAM #### [facility] [place] [facility] [address] [place] [address] Dr. Aissatou Vásquez Monocytes/100 WBC (Bld) 9.9 % Normal 1.7-12.0 [facility] [place] [facility] Comment on above: Performed By: #### C ADAM #### [facility] [place] [facility] [address] [place] [address] Dr. Aissatou Vásquez NEUT # 3.8 103/ul Normal 1.4-6.5 [facility] [place] [facility] Comment on above: Performed By: #### C ADAM #### [facility] [place] [facility] [address] [address] [address] Aissatou Vásquez Neutrophils/100 WBC (Bld) 61.2 % Normal 43.0-75.0 [facility] Comment on above: Performed By: #### C ADAM #### [facility] [place] [facility] [address] [place] [address] Dr. Aissatou Vásquez Platelet mean volume (Bld) [Entitic vol] 9.3 fL Critically low 9.5-13.5 [facility] Comment on above: Performed By: #### C ADAM #### [facility] [place] [facility] [address] [place] [address] Dr. Aissatou Vásquez PLT 218 103/ul Normal 150-450 [facility] Comment on above: Performed By: #### C ADAM #### [facility] [place] [facility] [address] [place] [address] Dr. Aissatou Vásquez RBC 4.23 106/ul Critically low 4.70-6.10 [facility] Comment on above: Performed By: #### C ADAM #### [facility] [place] [facility] [address] [place] [address] Dr. Aissatou Vásquez WBC 6.3 103/ul Normal 4.0-11.0 [facility] Comment on above: Performed By: #### C ADAM #### [facility] [place] [facility] [address] [place] [address] Dr. Aissatou Vásquez FREE T3on 06-05-2022 FREE T3 1.80 pg/mlL Critically low 2.18-3.98 [facility] Comment on above: Performed By: #### T SH, CMP, FT3, BNP, T4, LIPID #### [facility] [place] [facility] [address] [place] [address] Dr. Aissatou Vásquez GLYCOHEMOGLOBIN A1Con 2021 ADA RECOMMENDATION SEE BELOW Normal [facility] Comment on above: Result Comment: ADA RECOMMENDED LIMIT 4.0 - 6.0 ADA THERAPEUTIC TARGET < 7.0 ACTION SUGGESTED > 7.0 Performed By: #### L IVER, BMP, HSTROPN #### [facility] [place] [facility] [address] [place] [address] Dr. Aissatou Vásquez Glucose [Mass/Vol] 117 mg/dL Normal [facility] Comment on above: Performed By: #### L IVER, BMP, HSTROPN #### [facility] [place] [facility] [address] [address] [address] Aissatou Vásquez HbA1c (Bld) [Mass fraction] 5.7 % Normal 4.5-6.2 [facility] Comment on above: Performed By: #### L IVER, BMP, HSTROPN #### [facility] [place] [facility] [address] [address] [address] Aissatou Vásquez IRONon 06-05-2022 Iron [Mass/Vol] 76.0 ug/dL Normal 65.0-175.0 [facility] Comment on above: Performed By: #### P SASC, VITAD, IRON, B12FOL ####[facility] [place] [facility] [address] [address]DrBud Vásquez LIPID PROFILEon 06-05-2022 CHOL-HDL RATIO NORM SEE BELOW Normal [facility] Comment on above: Result Comment: 3.3 - 4.4 LOW RISK 4.4 - 7.1 AVERAGE RISK 7.1 - 11.0 MODERATE RISK >11.0 HIGH RISK Performed By: #### T SH, CMP, FT3, BNP, T4, LIPID ####[facility] [place] [facility] [address] [address]DrBud Vásquez Cholesterol [Mass/Vol] 133 mg/dL Normal <=200 [facility] Comment on above: Performed By: #### T SH, CMP, FT3, BNP, T4, LIPID ####[facility] [place] [facility] [address] [address]Dr. Aissatou Vásquez Cholesterol in HDL [Mass/Vol] 79 mg/dL Critically high 40-60 [facility] Comment on above: Performed By: #### T SH, CMP, FT3, BNP, T4, LIPID ####[facility] [place] [facility] [address] [address]DrBud Vásquez Cholesterol in LDL [Mass/Vol] 43.6 mg/dL Normal [facility] Comment on above: Performed By: #### T SH, CMP, FT3, BNP, T4, LIPID ####[facility] [place] [facility] [address] [place], [place] [address]Nk. Aissatou Vásquez Cholesterol.total/Cho lesterol in HDL [Mass ratio] 1.7 {ratio} Normal [facility] Comment on above: Performed By: #### T SH, CMP, FT3, BNP, T4, LIPID ####[facility] [place] [facility] [address] [place], [place] [address]Bd. Aissatou Vásquez HDL NORMAL > or = 60 mg/dl - LO W CARDIOVASCULAR RISK <40 mg/dl - HIGH CARDIOVASCULAR RISK Normal [facility] Comment on above: Performed By: #### T SH, CMP, FT3, BNP, T4, LIPID ####[facility] [place] [facility] [address] [id number]. Aissatou Vásquez LDL CALC NORMAL SEE BELOW Normal [facility] Comment on above: Result Comment: <100 mg/dl OPTIMAL 100 - 129 mg/dl NEAR OR ABOVE OPTIMAL 130 - 159 mg/dl BORDERLINE HIGH 160 - 189 mg/dl HIGH >190 mg/dl VERY HIGH Performed By: #### T SH, CMP, FT3, BNP, T4, LIPID ####[facility] [place] [facility] [address] [id number]. Aissatou Vásquez Triglyceride [Mass/Vol] 52 mg/dL Normal <=150 [facility] Comment on above: Performed By: #### T SH, CMP, FT3, BNP, T4, LIPID ####[facility] [place] [facility] [address] [id number]. Aissatou Vásquez VLDL CALC 10.4 mg/dL Normal [facility] [place] [facility] Comment on above: Performed By: #### T SH, CMP, FT3, BNP, T4, LIPID ####[facility] [place] [facility] [address] [id number]. Aissatou Vásquez PROF 14(COMP METB)on 022 Albumin [Mass/Vol] 4.0 g/dL Normal 3.4-5.0 [facility] Comment on above: Performed By: #### T SH, CMP, FT3, BNP, T4, LIPID ####[facility] [place] [facility] [address] [address]Dr. Aissatou Vásquez Albumin/Globulin [Mass ratio] 1.1 {ratio} Normal [facility] Comment on above: Performed By: #### T SH, CMP, FT3, BNP, T4, LIPID ####[facility] [place] [facility] [address] [address]Dr. Aissatou Vásquez ALP [Catalytic activity/Vol] 137 U/L Critically high 46-116 [facility] [place] [facility] Comment on above: Performed By: #### T SH, CMP, FT3, BNP, T4, LIPID ####[facility] [place] [facility] [address] [address]Dr. Aissatou Vásquez ALT [Catalytic activity/Vol] 18 U/L Normal 16-63 [facility] Comment on above: Performed By: #### T SH, CMP, FT3, BNP, T4, LIPID ####[facility] [place] [facility] [address] [address]Dr. Sheysarah Vásquez Anion gap [Moles/Vol] 11.1 mmol/L Normal [facility] Comment on above: Performed By: #### T SH, CMP, FT3, BNP, T4, LIPID ####[facility] [place] [facility] [address] [address]Dr. Aissatou Vásquez AST [Catalytic activity/Vol] 9 U/L Critically low 15-37 [facility] Comment on above: Performed By: #### T SH, CMP, FT3, BNP, T4, LIPID ####[facility] [place] [facility] [address] [address]Dr. Aissatou Vásquez Bilirubin [Mass/Vol] 0.3 mg/dL Normal 0.2-1.0 [facility] Comment on above: Performed By: #### T SH, CMP, FT3, BNP, T4, LIPID ####[facility] [place] [facility] [address] [place], [place] [address]Dr. Sheysarah Vásquez Calcium [Mass/Vol] 9.4 mg/dL Normal 8.5-10.1 [facility] Comment on above: Performed By: #### T SH, CMP, FT3, BNP, T4, LIPID ####[facility] [place] [facility] [address] [address]Dr. Aissatou Vásquez Chloride [Moles/Vol] 102 mmol/L Normal 98-107 [facility] [place] [facility] Comment on above: Performed By: #### T SH, CMP, FT3, BNP, T4, LIPID ####[facility] [place] [facility] [address] [address]Dr. Aissatou Vásquez CO2 [Moles/Vol] 29.7 mmol/L Normal 21.0-32.0 [facility] Comment on above: Performed By: #### T SH, CMP, FT3, BNP, T4, LIPID ####[facility] [place] [facility] [address] [place], [place] [address]Dr. Aissatou Vásquez Creatinine [Mass/Vol] 1.62 mg/dL Critically high 0.70-1.30 [facility] [place] [facility] Comment on above: Performed By: #### T SH, CMP, FT3, BNP, T4, LIPID ####[facility] [place] [facility] [address] [place], [place] [address]Dr. Aissatou Vásquez EGFR-AF STATELESS 50 mL/min/1.73m2 Critically low >=60 [facility] Comment on above: Performed By: #### T SH, CMP, FT3, BNP, T4, LIPID ####[facility] [place] [facility] [address] [place], [place] [address]Dr. Aissatou Vásquez EGFR-NON AF STATELESS 41 mL/min/1.73m2 Critically low >=60 [facility] [place] [facility] Comment on above: Performed By: #### T SH, CMP, FT3, BNP, T4, LIPID ####[facility] [place] [facility] [address] [place], [place] [address]Dr. Aissatou Vásquez Globulin (S) [Mass/Vol] 3.8 g/dL Normal [facility] [place] [facility] Comment on above: Performed By: #### T SH, CMP, FT3, BNP, T4, LIPID ####[facility] [place] [facility] [address] [place], [place] [address]Dr. Aissatou Vásquez Glucose [Mass/Vol] 86 mg/dL Normal 74-106 [facility] Comment on above: Performed By: #### T SH, CMP, FT3, BNP, T4, LIPID ####[facility] [place] [facility] [address] [address]Dr. Aissatou Vásquez Potassium [Moles/Vol] 4.8 mmol/L Normal 3.5-5.1 [facility] [place] [facility] Comment on above: Performed By: #### T SH, CMP, FT3, BNP, T4, LIPID ####[facility] [place] [facility] [address] [address]Dr. Aissatou Vásquez Protein [Mass/Vol] 7.8 g/dL Normal 6.4-8.2 [facility] Comment on above: Performed By: #### T SH, CMP, FT3, BNP, T4, LIPID ####[facility] [place] [facility] [address] [address]Dr. Aissatou Vásquez Sodium [Moles/Vol] 138 mmol/L Normal 136-145 [facility] Comment on above: Performed By: #### T SH, CMP, FT3, BNP, T4, LIPID ####[facility] [place] [facility] [address] [address]Dr. Aissatou Vásquez Urea nitrogen [Mass/Vol] 41.0 mg/dL Critically high 7.0-18.0 [facility] [place] [facility] Comment on above: Performed By: #### T SH, CMP, FT3, BNP, T4, LIPID ####[facility] [place] [facility] [address] [address]Dr. Aissatou Vásquez Urea nitrogen/Creatinine [Mass ratio] 25.3 mg/mg Normal [facility] [place] [facility] Comment on above: Performed By: #### T SH, CMP, FT3, BNP, T4, LIPID ####[facility] [place] [facility] [address] [address]Dr. Aissatou Vásquez T4on 06-05-2022 T4 [Mass/Vol] 9.70 ug/dL Normal 4.50-12.10 [facility] Comment on above: Performed By: #### T SH, CMP, FT3, BNP, T4, LIPID #### [facility] [place] [facility] [address] [address] [address] Aissatou Vásquez TSHon 06-05-2022 TSH 2.525 uIU/mL Normal 0.358-3.740 [facility] Comment on above: Performed By: #### T SH, CMP, FT3, BNP, T4, LIPID ####[facility] [place] [facility] [address] [id number]. Aissatou Vásquez VIT B12 AND FOLATEon 022 Cobalamin (Vitamin B12) [Mass/Vol] 1004.0 pg/mL Critically high 193.0-986.0 [facility] Comment on above: Performed By: #### P SASC, VITAD, IRON, B12FOL ####[facility] [place] [facility] [address] [id number]. Aissatou Vásquez FOLATE 6.10 ng/mL Critically low 8.60-58.90 [facility] Comment on above: Performed By: #### P SASC, VITAD, IRON, B12FOL ####[facility] [place] [facility] [address] [address]Dr. Aissatou Vásquez VITAMIN D 25 OHon 06-05-2022 VIT D 25-OH 31.8 ng/mL Normal [facility] Comment on above: Performed By: #### P SASC, VITAD, IRON, B12FOL ####[facility] [place] [facility] [address] [address]Dr. Aissatou Vásquez VIT D RANGES SEE BELOW Normal [facility] Comment on above: Result Comment: <20 ng/mL Vit D deficient 20 - <30 ng/mL Vit D insufficient 30 - 100 ng/mL Vit D sufficient >100 ng/mL Potential Toxicity Performed By: #### P SASC, VITAD, IRON, B12FOL ####[facility] [place] [facility] [address] [id number]. Aissatou Vásquez Coding Summary.on 01-23-2017 Coding Summary. CODING DATE: 01/23/2017 FINAL [facility] STATUS: Home (Routine DC) PAYOR: Medicare [...] [place] Date Saved: 01/23/2017 10:07 am Normal [facility] Creatinineon 01-22-2017 Creatinine 1.0 mg/dL Normal 0.5-1.3 [facility] Comment on above: Performed By: #### 2 [id number], [id number] ####[facility] [address] [place] [address] eGFRon 01-22-2017 eGFR (black) mL/min/{1.73_m2} Normal >=59 [facility] Comment on above: Order Comment: Order added by Discern Expert. Result Comment: eGFR is race adjusted. AA=. Performed By: #### 2 [id number], [id number] ####[address] [place] [address] eGFR (non-black) mL/min/{1.73_m2} Normal >=59 [facility] Comment on above: Order Comment: Order added by Discern Expert. 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 Kidney failure is indicated at less than 15 mL/min/1.73m2. Performed By: #### 2 [id number], [id number] ####[facility] [address] [place] [address] Vital Signs Date Time Vital Sign Value Performing Clinician Luci jacob 03-23-2023 13:55-0400 Diastolic blood pressure 68 mm[Hg] Jodi Banerjee DO Work Phone: [facility] 03-23-2023 13:55-0400 Heart rate 51 /min Jodi Banerjee DO Work Phone: [facility] 03-23-2023 13:55-0400 Systolic blood pressure 151 mm[Hg] Jodi Banerjee DO Work Phone: [facility] 08-27-2022 13:12-0500 Diastolic blood pressure 70 mm[Hg] Jodi Banerjee DO Work Phone: [facility] 08-27-2022 13:120500 Heart rate 69 /min Gonormanfrantz Adameaure DO Work Phone: [facility] 08-27-2022 13:12-0500 Systolic blood pressure 156 mm[Hg] Jodi Banerjee DO Work Phone: [facility] Encounters Encounter Date Encounter Type Care Provider Facility Start: 08-11-2023 End: 08-12-2023 ambulatory PIPE HOPKINS [facility] Start: 07-23-2023 End: 07-23-2023 ambulatory AMANDA IRBY Not Available Start: 06-24-2023 End: 06-24-2023 ambulatory [facility] Start: 03-23-2023 End: 03-23-2023 ambulatory JODI BANERJEE Facility:[facility] Start: 03-23-2023 End: 03-23-2023 Patient encounter procedure Jodi Banerjee DO Work Phone: Neurology Comment on above: Altered mental statu s, unspecified altered mental status type (Primary Dx); Memory loss Start: 03-23-2023 Telephone encounter Rudi Banerjee DO Work Phone: Neurology Start: 12-25-2022 End: 12-26-2022 ambulatory [facility] Start: 10-27-2022 End: 10-28-[address] PIPE HOPKINS . Facility:[facility] Start: 09-24-2022 End: 09-24-[address] PIPE HOPKINS . Facility: Start: 09-22-2022 End: 09-22-2022 ambulatory [facility] Start: 08-27-2022 End: 08-28-2022 ambulatory PIPE HOPKINS Facility:[facility] Start: 08-27-2022 End: 08-27-2022 Patient encounter procedure [...] Start: 06-25-2017 End: 06-26-2017 Ambulatory DEFAULT PHYSICIAN Facility:[facility] Start: 01-22-2017 End: 01-23-2017 Ambulatory SHONDA ALTAMIRANO Facility[place] Start: 05-27-2011 Patient encounter status Jodi Banerjee DO Work Phone: [facility] Work Phone: Procedures Date Procedure Procedure Detail Performing Clinician Start: 06-05-[address] ORTIZ HOPKINS . Comment on above: Performed By: #### P SASC, VITAD, IRON, B12FOL ####[facility] [place] [facility] [address] [place], [place] [address]UnBud Vásquez Start: 02-20-2020 History of coronary artery bypass grafting S/P CABG (coronary artery bypass graft), PARRA to the LAD, SVG to D1, SVG to OM1, SVG to OM 2, inverted Y grafted PLV and posterior descending artery. Jodi Banerjee DO Work Phone: Plan of Treatment Date Care Activity Detail Author Start: 03-06-2023 Influenza vaccination Influenza Vacc ine (#1) [facility] Start: 08-27-2022 End: 10-27-2022 25-hydroxyvitamin D3 [Mass/volume] in Serum or Plasma [facility] Work Phone: Comment on above: Expected: 08/27/2022 , Expires: 10/27/2022 Start: 08-27-2022 End: 10-27-2022 SYPHILIS TOTAL W/REFLEX [facility] Work Phone: Comment on above: Expected: 08/27/2022 , Expires: 10/27/2022 Start: 07-06-2022 ADVANCE DIRECTIVE DISCUSSION ADVANCE DIRECTIVE DISCUSSION [facility] Start: 07-06-2022 DEPRESSION ASSESSMENT DEPRESSION ASS ESSMENT [facility] Start: 03-06-2022 Influenza vaccination INFLUENZA (#1) [facility] Start: 12-17-2019 DIABETES SCREEN [facility] Start: 12-17-2019 Diabetes Screening Diabetes Screenin g [facility] Start: 05-21-2012 Hepatitis B surface antibody level LDL CHOLESTEROL [facility] Start: 2003 Pneumococcal Vaccine : 65+ (1 - PCV) Pneumococcal Vaccine: 65+ (1 - PCV) [facility] Start: 2003 PNEUMOCOCCAL: 65+ (1 - PCV) PNEUMOCOCCAL: 65+ (1 - PCV) [facility] Start: 1988 SHINGRIX VACCINE (1 of 2) SHINGRIX VACCINE (1 of 2) [facility] Start: 1957 Urine microalbumin profile [facility] Start: 02-18-1939 COVID-19 VACCINE (#1) COVID-19 VACCI NE (#1) [facility] Immunizations Immunization Date Immunization Notes Care Provider Jewell molina 06-18-2017 influenza virus vaccine, unspecified formulation Jodi Banerjee DO Work Phone: [facility] Payers Date Payer Category Payer Medicare [id number] 2016 Private Health Insurance [facility] AARP SUPPLEMENT [id number] 2016-Present [phone] [address] [facility] [place] [address] Indemnity [id number] 2003 Medicare MEDICARE MEDICAR E A AND B [id number] 2003-Present [phone] [address] [address] [place] [address] Medicare [id number] 1959 Medicaid [id number] 1959 Medicare [id number] 1959 Unknown [id number] 1938 Unknown [id number]. 593 1938 Unknown [id number] [id number]. 593 1938 Unknown [id number] [id number]. 593 1938 Unknown [id number] [id number]. 593 1938 Unknown [id number] [id number]. 593 1938 Unknown [id number] [id number]. 593 1938 Unknown [id number] [id number]. 593 1938 Unknown [id number] [id number]. 593 1938 Unknown [id number] [id number]. 1259 1938 Unknown [id number]. 1286 Unknown Social History Date Type Detail Facility Start: 08-27-2022 Tobacco smoking stat us [facility] Ex-smoker [facility] History of tobacco use Current smoker [facility] History of tobacco use Cigarette Smoker [facility] Start: 08-27-2022 End: 03-23-2023 Cigarettes smoked current (pack per day) - Reported 1 [facility] Start: 08-27-2022 Tobacco use and exposure Vincent workman smokeless tobacco user [facility] End: 06-02-1971 History of tobacco use User of smokeless tobacco [facility] Start: 08-27-2022 End: 03-23-2023 Alcohol intake Current drinker of alcohol (finding) [facility] Start: 08-27-2022 Tobacco Comment quit 40 yrs ago [facility] Start: 05-21-2011 Alcohol Comment He drinks 4 gl asses of red wine weekly [facility] Start: 1940 Sex Assigned At Not on file [facility] Start: 03-23-2023 Tobacco use panel [facility] National Score (1-10 0), lower number is lower risk 52 [facility] Clinical Notes 05-28-2011 to 06-24-2023 Telephone Encounter - Terri Santos - 03/23/2023 3:27 PM EDTPatient Jodi Vernon, - 03/23/2023 1:46 PM EDTChgino Banerjee, - 08/27/2022 1:12 PM EST Note Date & Type Note Facility 06-24-2023 Note [place] [facility] Subjective Leanna Nelson is a 82 y.o. year old male patient being seen for 6 mo follow up CAD, hypertension, chronic diastolic heart failure, and carotid artery stenosis. Had routine labs in Mar 2023. Doing well from cardiac standpoint. No recurrent syncope. Patient Active Problem List Diagnosis Chronic diastolic heart failure (CMS/HCC) PAC (premature atrial contraction) Coronary artery disease involving kake coronary artery of kake heart without angina pectoris Hx of CABG [...] , Rfl: multivitamin (more content not included)... [facility] 03-23-2023 Note HNO ID: [id number] Author: Jodi Banerjee, DO Service: ? Author Type: Physician Type: Progress Notes Filed: 03/23/2023 2:41 PM Note Text: [facility] [place] Follow-up visit March 23, 2023 HPI: Overall [...] encounter he has moved and low lives [facility]. He states he does not [...] mainly his brother. He has seen by botany professor in 01/2023 with suggestion that he get a hearing aide but he refuses. After his last encounter he has followed up with cardiology concerning his heart rate that was auscultated on last encounter. They checked his heart rhythm and thought it was appropriate. This was as via physician in [place]. They deny other changes to his health and/or medications except for the above since our last encounter. PAST MEDICAL HISTORY Diagnosis Date Arthritis Carotid stenosis Coronary artery disease Coronary atherosclerosis of unspecified type of vessel, kake or graft 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 Dyslipidemia Hypertension Hypertension Hypothyroid Lumbar disc disease Unspecified hypothyroidism Hypothyroidism PAST SURGICAL HISTORY Procedure Laterality Date PAST SURGICAL HISTORY OF CABG times 6 left internal thoracic artery to the lbp-nf-qbkcem left anterior descending artery, reverse saphenous vein [...] tablet Take 5 (more content not included)... [facility] 03-23-2023 Miscellaneous Notes 03/23/2023 After visit Summary faxed to Dr Hopkins with confirmation received. PSS forgot to have pt complete release of information forms. This nurse has placed 2 copies in [place] mail for pt to complete and take to facility to release information to our office. POA was advised via voice message to send a [employer] msg if he had any further question. Terri Santos Lpn documented in this encounter [facility] 03-23-2023 Jodi Madrigal DO - 03/23/2023 2:40 PM EDT Please sign records release for last blood test results. documented in this encounter [facility] 03-23-2023 History of Present illness Narrative [facility] [place] Follow-up visit March 23, 2023 HPI: Overall [...] encounter he has moved and low lives [facility]. He states he does not [...] mainly his brother. He has seen by botany professor in 01/2023 with suggestion that he get a hearing aide but he refuses. After his last encounter he has followed up with cardiology concerning his heart rate that was auscultated on last encounter. They checked his heart rhythm and thought it was appropriate. This was as via physician in [place]. They deny other changes to his health and/or medications except for the above since our last encounter. PAST MEDICAL HISTORY Diagnosis Date Arthritis Carotid stenosis Coronary artery disease Coronary atherosclerosis of unspecified type of vessel, kake or graft 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 Dyslipidemia Hypertension Hypertension Hypothyroid Lumbar disc disease Unspecified hypothyroidism Hypothyroidism PAST SURGICAL HISTORY Procedure Laterality Date PAST SURGICAL HISTORY OF CABG times 6 left internal thoracic artery to the tdk-ep-zqpmfa left anterior descending artery, reverse saphenous vein [...] with more than 50% of the total [id number] time of the visit in counseling / coordination of care. documented in this encounter [facility] 12-25-2022 Note [place] [facility] Subjective Leanna Nelson is a 82 y.o. year old male patient being seen for Follow-up (3 month follow up ) Patient Active Problem List Diagnosis Chronic diastolic heart failure (CMS/HCC) PAC (premature atrial contraction) Coronary artery disease involving kake coronary artery of kake heart without angina pectoris Hx of CABG [...] , Rfl: choleca (more content not included)... [facility] 09-22-2022 Note Cardi[facility] SUBJECTIVE Chief Complaint Patient presents with office visit brother made appt had appt with neuro thought they heard something when listening to heart. confirmed Leanna Nelson is a 82 y.o. male here for follow-up. HPI PMHx: CAD s/p CABG 2010, HTN, HLD, former tobacco use, hypothyroidism, SAGAR (mild) FMHx: brother hx of [place]/CAD and HFrEF 09/22/2022 He is accompanied by his brother. He was admitted back in 06/2022 d/t a fall, treated for rhabdo. He currently lives in a care home facility. [facility] His weight is up about 30# [...] (premature atrial contraction) Coronary artery disease involving kake coronary artery of kake heart without angina pectoris Hx of CABG [...] the internal booker (more content not included)... [facility] 09-22-2022 Note Review of Systems Cardiovascular: Positive for leg swelling and near-syncope. Negative for chest pain, claudication, cyanosis, dyspnea on exertion, irregular heartbeat, orthopnea, palpitations, paroxysmal nocturnal dyspnea and syncope. Bilateral leg swelling [facility] 08-27-2022 Note HNO ID: [id number] Author: Jodi Banerjee, DO Service: ? Author Type: Physician Type: Progress Notes Filed: 08/27/2022 2:35 PM Note Text: [facility] [place] New Patient Consultation August 27, 2022 HPI: [...] there. They have been working with social human services assistants at the facility he is at but [...] Coronary atherosclerosis of unspecified type of vessel, kake or graft 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 Dyslipidemia Hypertension Hypertension Hypothyroid Lumbar disc disease Unspecified hypothyroidism Hypothyroidism PAST SURGICAL HISTORY Procedure Laterality Date PAST SURGICAL HISTORY OF CABG times 6 left internal thoracic artery to the lsj-hx-gkjavk left anterior descending artery, reverse saphenous vein [...] Former Packs/day: 1.0 (more content not included)... [facility] 08-27-2022 History of Present illness Narrative [facility] [place] New Patient Consultation August 27, 2022 HPI: [...] there. They have been working with social human services assistants at the facility he is at but [...] Coronary atherosclerosis of unspecified type of vessel, kake or graft 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 Dyslipidemia Hypertension Hypertension Hypothyroid Lumbar disc disease Unspecified hypothyroidism Hypothyroidism PAST SURGICAL HISTORY Procedure Laterality Date PAST SURGICAL HISTORY OF CABG times 6 left internal thoracic artery to the [id number] left anterior descending artery, reverse saphenous vein [...] with more than 50% of the total [id number] time of the visit in counseling / coordination of care. documented in this encounter [facility] 05-28-2011 History of Past i llness Narrative Problem Noted Date Resolved Date Stress hyperglycemia 05/28/2011 06/01/2011 Overview: RHI gtt per ICU protocol Mechanically assisted ventilation 05/28/2011 05/29/2011 Overview: Extubated 05/29/11 no increased work of breathing Hypotension 05/28/2011 05/30/2011 Overview: Levo off this morning, hemodynamically stable. documented as of this encounter (statuses as of 08/27/2022) [facility] History of Past illness Narrative* Problem Noted Date Diagnosed Date Resolved Date Stress hyperglycemia 05/28/2011 011 Overview: RHI gtt per ICU protocol Mechanically assisted ventilation 05/28/2011 05/29/2011 Overview: Extubated 05/29/11 no increased work of breathing Hypotension 05/28/2011 05/30/2011 Overview: Levo off this morning, hemodynamically stable. documented as of this encounter (statuses as of 03/24/2023) [facility] History of Past illness Narrative* Problem Noted Date Diagnosed Date Resolved Date Stress hyperglycemia 05/28/2011 011 Overview: RHI gtt per ICU protocol Mechanically assisted ventilation 05/28/2011 05/29/2011 Overview: Extubated 05/29/11 no increased work of breathing Hypotension 05/28/2011 05/30/2011 Overview: Levo off this morning, hemodynamically stable. documented as of this encounter (statuses as of 03/24/2023) [facility] Altered mental status, unspecified altered mental status type- Primary Vitamin D deficiency, unspecified [facility] Diagnosis Altered mental status, unspecified altered mental status type- Primary Memory loss documented in this encounter [facility] Summary Purpose Family History No Family History Records FoundNo Family History Records FoundNo Family History Records FoundNo Family History Records FoundNo Family History Records FoundNo Family History Records FoundNo Family History Records FoundNo Family History Records Found Advance Directives No Advanced Directives Records FoundDocuments on File Type Date Recorded 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 Advance Directive(s) 08/27/2022 1:25 PM Additional Source Comments (unrecognized sect ion and content) No Status Records FoundNo Status Records FoundNo Status Records FoundNo Status Records FoundNo Status Records FoundNo Status Records FoundNo Status Records FoundNo Status Records Found INFORMATION SOURCE (unrecogn ized section and content) DATE CREATED AUTHOR 12/29/2017 [facility] DATE CREATED AUTHOR AUTHOR'S ORGANIZ ATION 12/30/2017 [facility] DATE CREATED AUTHOR AUTHOR'S ORGANIZ ATION 08/28/2022 [facility] DATE CREATED AUTHOR AUTHOR'S ORGANIZ ATION [facility]/12/2022 [facility] DATE CREATED AUTHOR AUTHOR'S ORGANIZ ATION 03/25/2023 [facility] DATE CREATED AUTHOR AUTHOR'S ORGANIZ ATION 06/25/[address] [facility] DATE CREATED AUTHOR AUTHOR'S ORGANIZ ATION 07/24/2023 [facility] DATE CREATED AUTHOR AUTHOR'S ORGANIZ ATION 08/17/2023 [facility] Source Comments (unrecognize d section and content) In the event this informatio n is protected by the Federal Confidentiality of Alcohol and Drug Abuse Patient Records regulations: The Federal rules restrict any use of the information to criminally investigate or prosecute any alcohol or drug abuse patient.[facility] event this information is protected by the Federal Confidentiality of Alcohol and Drug Abuse Patient Records regulations: The Federal rules restrict any use of the information to criminally investigate or prosecute any alcohol or drug abuse patient.[facility] event this information is protected by the Federal Confidentiality of Alcohol and Drug Abuse Patient Records regulations: The Federal rules restrict any use of the information to criminally investigate or prosecute any alcohol or drug abuse patient.[facility] Reason for Visit (unrecogniz ed section and content) Reason Comments New Patient Reason Comments Follow Up Care Teams (unrecognized sec tion and content) Explosion Welder Relationship Specialty Start Date End Date Pipe Hopkins MD [address] [place] [address] PCP - General 05/19/11 [address] [place] [address] Primary Staff Physician Cardiology 09/21/18 Explosion Welder Relationship Specialty Start Date End Date Pipe Hopkins MD [address] [place] [address] PCP - General 05/19/11 [address] [place] [address] Primary Staff Physician Cardiology 09/21/18 Explosion Welder Relationship Specialty Start Date End Date Pipe Hopkins MD [address] [place] [address] PCP - General 05/19/11 [address] [place] [address] Primary Staff Physician Cardiology 09/21/18 FOR RECORDS [...] BE BASED ON THE PRIMARY CLINICAL RECORDS. [facility] provides no warranty or guarantee of the accuracy or completeness of information in this document.
[2024-01-01 06:59] LABS: Basophils Absolute Auto 0.1 10^3/uL (0.0-0.1); Basophils Percent Auto 1.1 % (0.2-2.0); Eosinophils Absolute Auto 0.8 10^3/uL (0.0-0.7); Eosinophils Percent Auto 11.7 % (0.9-7.0); Hematocrit 42.4 % (42.0-54.0); Hemoglobin 13.5 g/dL (14.0-18.0); Immature Granulocytes Abs Auto 0.01 10^3/uL (0.00-0.03); Immature Granulocytes Pct Auto 0.1 % (0.0-0.5); Lymphocytes Percent Auto 41.7 % (20.5-60.0); Mean Corpuscular HGB Conc 31.8 g/dL (29.9-35.2); Monocytes Absolute Auto 0.8 10^3/uL (0.3-0.8); Monocytes Percent Auto 10.6 % (1.7-12.0); Neutrophils Absolute Auto 2.5 10^3/uL (1.4-6.5); Neutrophils Percent Auto 34.8 % (43.0-75.0); Platelet Count 181 10^3/uL (150-450); Red Blood Count 4.66 10^6/uL (4.70-6.10); Red Cell Distribution Width 13.1 % (11.0-15.0); White Blood Count 7.1 10^3/uL (4.0-11.0)
[2024-01-01 07:18] LABS: Free T4 1.05 ng/dL (0.76-1.46)
[2024-01-01 07:24] LABS: Alanine Aminotransferase 18 U/L (16-63); Albumin Globulin Ratio 0.9; Albumin Level 3.6 g/dL (3.4-5.0); Alkaline Phosphatase 82 U/L (46-116); Anion Gap 16.5; Aspartate Amino Transferase 19 U/L (15-37); BUN Creatinine Ratio 23.7; Bilirubin Total 0.4 mg/dL (0.2-1.0); Calcium 9.1 mg/dL (8.5-10.1); Carbon Dioxide 23.6 mmol/L (21.0-32.0); Chloride 104 mmol/L (98-107); Estimated GFR (African America 42 (>=60); Estimated GFR (Non-African Ame 35 (>=60); Free T3 2.41 pg/mL (2.18-3.98); Globulin 3.9 g/dL; Glucose 96 mg/dL (74-106); Potassium 4.1 mmol/L (3.5-5.1); Sodium 140 mmol/L (136-145); Thyroid Stimulating Hormone 1.521 uIU/mL (0.358-3.740); Total Protein 7.5 g/dL (6.4-8.2)
== END 2024-01-01 06:49 | disposition home or self-care (01) ==
LOC: LAB 06:48
PROVIDERS: PCP Family Medicine; Visit Provider Family Medicine
DX: I10 Essential (primary) hypertension (principal); E78.5 Hyperlipidemia, unspecified; E03.9 Hypothyroidism, unspecified
CPT/HCPCS: 36415; 80053; 84439; 84443; 84481; 85025

== ENCOUNTER 2024-02-05 08:55 | Emergency (ER) | payer MEDICARE, SELFPAY ==
[2024-02-05 08:58] VITALS: BP 142/85; PULSE 69; TEMP 36.8; O2SAT 99; BMI 24.7
--- NOTE | 2024-02-05 09:11 | ED_ITS ---
HPI HPI - General Adult General Chief complaint: Back Pain/Injury Stated complaint: FALL/BACK PAIN Time Seen by Provider: 02/05/24 09:06 Source: patient Mode of arrival: ambulance Limitations: no limitations History of Present Illness HPI narrative: Patient here awake alert complains of falling earlier today. He lives at [facility] living in [facility]. He was getting ready to shower and he says he lost his balance and fell. He thinks he hit his head on the floor. He does not have a headache. He is sure he had no loss of consciousness. This is his first fall that he can. 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 He does not have any neck pain. He has chronic low back pain but does not have any exacerbation. To his knowledge he is not on any new medications. He has not had vomiting or confusion since the event occurred. He is not on any anticoagulants although he does take aspirin. He did not have any palpitations or lightheadedness or clamminess before during or after the event. He says the only thing insert now is his pride and he is embarrassed with the fall. Related Data Home Medications ?Medication ?Instructions ?Recorded ?Confirmed acetaminophen 500 mg tablet 500 mg PO DAILY 02/05/24 02/05/24 aspirin 81 mg tablet,delayed 81 mg PO DAILY 02/05/24 02/05/24 release hydrochlorothiazide 25 mg tablet 25 mg PO DAILY 02/05/24 02/05/24 levothyroxine 100 mcg tablet 100 mcg PO DAILY 02/05/24 02/05/24 liothyronine 5 mcg tablet 5 mcg PO DAILY 02/05/24 02/05/24 Allergies Allergy/AdvReac Type Severity Reaction Status Date / Time atorvastatin [From Lipitor] Allergy Severe Muscle Pain Verified 02/05/24 08:58 Opioid HPI Opioid Management Most Recent Opioid Data: No Data to Display Exam Narrative Exam Narrative: Awake alert GCS 15 excellent historian cognition is intact no impairment on the clinical exam. HEENT is cervical range of motion is unrestricted and nontender he has no pain with palpation over the neck or the posterior cranium. Craniofacial structures are atraumatic with no CSF otorrhea or rhinorrhea. There is no bruises contusions abrasions or tenderness to palpation of the craniofacial structures. The lungs are clear with no wheeze rales or rhonchi heart sounds are normal. Vital signs are stable. Skin and integument is warm and dry. He has good pulses the upper extremities he has spontaneous movement of the limbs. He has no pain in his chest ribs abdomen or lower extremities. Constitutional Vital Signs, click to edit/add: Last Vital Signs Temp 98.2 F 02/05/24 08:58 Pulse 63 02/05/24 09:48 Resp 18 02/05/24 09:48 BP 140/78 02/05/24 09:48 Pulse Ox 97 02/05/24 09:48 O2 Del Method Room Air 02/05/24 08:58 Course Vital Signs Vital signs: Vital Signs Temperature 98.2 F 02/05/24 08:58 Pulse Rate 69 02/05/24 08:58 Respiratory Rate 18 02/05/24 08:58 Blood Pressure 142/85 H 02/05/24 08:58 Pulse Oximetry 99 02/05/24 08:58 Oxygen Delivery Method Room Air 02/05/24 08:58 Temperature 98.2 F 02/05/24 08:58 Pulse Rate 63 02/05/24 09:48 Respiratory Rate 18 02/05/24 09:48 Blood Pressure 140/78 02/05/24 09:48 Pulse Oximetry 97 02/05/24 09:48 Oxygen Delivery Method Room Air 02/05/24 08:58 Medical Decision Making [facility] Narrative Medical decision making narrative: This patient lives in assisted living. We did perform orthostatic vital signs and ambulate him in the hallway. We actually waited for his brother to come them so his brother could evaluate him to see if there is any change in his cognition mentation ambulation speech and everything is baseline status quo. I see no indication to perform any further diagnostic testing. He is in agreement with that would like to return to his home Discharge Plan Discharge Stand Alone Forms: Portal Instructions Chief Complaint: Back Pain/Injury Clinical Impression: Encounter for post fall examination Patient Disposition: Home, Self-Care Time of Disposition Decision: 10:15 Mode of Transportation: Private Vehicle Prescriptions / Home Meds: No Action acetaminophen 500 mg tablet 500 mg PO DAILY aspirin 81 mg tablet,delayed release (DR/EC) 81 mg PO DAILY hydrochlorothiazide 25 mg tablet 25 mg PO DAILY levothyroxine 100 mcg tablet 100 mcg PO DAILY liothyronine 5 mcg tablet 5 mcg PO DAILY Print Language: Brazilian Additional Instructions: Continue present medications and activities Referrals: Marcelo Hopkins MD [Primary Care Provider] - 1 week
--- OUTSIDE RECORDS SUMMARY | 2024-02-05 09:15 | XMS_ITS | CCD ---
Author Organization [facility] Care Team Providers Care Room Service Associate Name Role Phone PHYSICIAN, DEFAULT Unavailable Unavailable PHYSICIAN, DEFAULT Unavailable Unavailable VEELIA, SUNJUK Unavailable Unavailable EVELIA, SUNJUK Unavailable Unavailable EVEILA, SUNJUK Unavailable Unavailable Pipe Hopkins~[phone] UNKNOWN Unavailable Unavailable Pipe Hopkins MD Primary Care Provider [phone] [place] Unavailable PIPE HOPKINS Primary Care [...] BETANCUR Primary Care Unavailable ZIEBFRANTZ, DR LEATHA [employer] Unavailable HOY ., DR BETANCUR Admitting [...] Unavailable Pipe Hopkins MD Primary Care Provider [phone] [place] Unavailable JODI BANERJEE Attending PIPE Rascon Primary Care Unavailable JODI BANERJEE Attending UnavailPIPE Jeong Primary Care Unavailable AYSE BARNES Attending Unavailable IRINEO BOSS Attending Unavailable AYSE BARNES Attending Unavailable AMANDA IRBY Attending Unavailable PIPE HOPKINS Referring Unavailable Allergies Allergy Classification Reported Allergen(s) Allergy Type Date of Onset Reaction(s) Facility (2 sources) atorvastatin; Translations: [Lipitor] Drug Allergy [facility] Repository (5 sources) atorvastatin; Translations: [ATORVASTATIN CALCIUM] Drug Allergy 03-28-2014 [facility] (1 source) atorvastatin; Translations: [ATORVASTATIN] Drug Allergy 03-28-2014 [facility] Repository Medications Completed/Discontinued Medications Medication [...] Coronary arteriosclerosis; Translations: [Atherosclerotic heart disease of 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 CURRENT DRUG THERAPY] Onset: 07-14-2022 Episodic Other [...] 08-11-2023 Bilirubin Ql (U) Negative Normal NEG [facility] Comment on above: Performed By: #### U A #### [facility] ([id number]) [address] [place] [address] [place] [address] BLOOD/HGB Negative Normal NEG [facility] Comment on above: Performed By: #### U A #### [facility] ([id number]) [address] [place] [address] [place] [address] Color (U) YELLOW Normal YELLOW [facility] Comment on above: Performed By: #### U A #### [facility] ([id number]) [address] [place] [address] [place] [address] Glucose Ql (U) Negative Normal NEG [facility] Comment on above: Performed By: #### U A #### [facility] ([id number]) [address] [place] [address] [place] [address] Ketones Ql (U) Negative Normal NEG [facility] Comment on above: Performed By: #### U A #### [facility] ([id number]) [address] [place] [address] [place] [address] Leukocyte esterase Test strip Ql (U) Negative Normal NEG [facility] Comment on above: Performed By: #### U A #### [facility] ([id number]) [address] [place] [address] Nitrite Ql (U) Negative Normal NEG [facility] Comment on above: Performed By: #### U A #### [facility] ([id number]) [address] [place] [address] pH (U) 6.0 [pH] Normal 5.0-8.5 [facility] Comment on above: Performed By: #### U A #### [facility] ([id number]) [address] [place] [address] Protein Ql (U) Negative Normal NEG [facility] Comment on above: Performed By: #### U A #### [facility] ([id number]) [address] [place] [address] Specific gravity (U) [Rel density] 1.025 Normal 1.003-1.035 [facility] Comment on above: Performed By: #### U A #### [facility] ([id number]) [address] [place] [address] TURBIDITY CLEAR Normal CLEAR [facility] Comment on above: Performed By: #### U A #### [facility] ([id number]) [address] [place] [address] Urobilinogen Qn (U) 0.2 {Ilene'U}/dL Normal <1.1 [facility] Comment on above: Performed By: #### U A #### [facility] ([id number]) [address] [place] [address] URINE CULTUREon 08-11-2023 Bacteria identified Cx Nom (U) CULTURE RESULTS <10,000 ORGANISMS/ML NORMAL URO GENITAL LOIS Normal [facility] Comment on above: Performed By: #### 6 30-4 #### [facility] ([id number]) [address] [place] [address], [address] [place] [address] Office Visiton 06-24-2023 Follow-up visit [id number] Leanna Nelson 1940 M Date Provider Department Center 06/24/2023 AYSE VIVAR Family History Problem Relation Age of Onset Coronary artery disease Brother Heart attack Brother Heart failure Brother Other Brother Family Status - Relation Status Age at Brother Level of Service:82101 UT OFFICE/OUTPATIENT ESTABLISHED LOW MDM 20 MIN Normal [facility] CNOVon 03-23-2023 CNOV Office Visit (NEUSHF ) LEANNA NELSON ([id number]) 1940 M Date Time Provider Department 03/23/23 2:00 PM JODI BANERJEE During your visit today, we recorded the following information about you: Pulse Blood pressure 51/minute 151/68 Jodi Banerjee, DO 03/23/2023 2:41 PM Signed [facility] [place] Follow-up visit March 23, 2023 HPI: Overall [...] encounter he has moved and low lives [facility]. He states he does not [...] mainly his brother. He has seen by silk blocker in 01/2023 with suggestion that he get a hearing aide but he refuses. After his last encounter he has followed up with cardiology concerning his heart rate that was auscultated on last encounter. They checked his heart rhythm and thought it was appropriate. This was as via physician in [place]. They deny other changes to his health and/or medications except for the above since our last encounter. PAST MEDICAL HISTORY Diagnosis Date Arthritis Carotid stenosis Coronary artery disease Coronary atherosclerosis of unspecified type of vessel, [place] or graft 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 Dyslipidemia Hypertension Hypertension Hypothyroid Lumbar disc disease Unspecified hypothyroidism Hypothyroidism PAST SURGICAL HISTORY Procedure Laterality Date PAST SURGICAL HISTORY OF CABG times 6 left internal thoracic artery to the olf-ny-zknwxr left anterior descending artery, reverse saphenous vein [...] mouth onc (more content not included)... [facility] Telephone (NEUAV4) LEANNA NELSON ([id number]) 1940 M Date Time Provider Department 03/23/23 [...] he had any further question. Terri Santos [place] [employer] Allergies As of Date: 03/23/2023 Noted Allergy [...] testing [Z01.818] 05/27/2011 Coronary artery disease involving 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 Encounter Status:Closed by TERRI SANTOS on 03/23/23 Normal [facility] Office Visiton 12-25-2022 Follow-up visit [id number] Leanna Nelson 1940 M Date Provider Department Center 12/25/2022 367-AYSE BARNES [facility] [place] [employer] Family History Problem Relation Age of Onset Coronary artery disease Brother Heart attack Brother Heart failure Brother Other Brother Family Status - Relation Status Age at Brother Level of Service:39430 UT OFFICE/OUTPATIENT ESTABLISHED MOD MDM 30-39 MIN Reason for Visit and Comments: Follow-up [318467] - 3 month follow up Normal [facility] CT CHEST WO CONon 10-27-2022 [...] by: LEATHA GAVIRIA Date: 2022-10-27 10:00 Normal [facility] LIPID PROFILEon 09-24-2022 CHOL-HDL RATIO NORM SEE BELOW Normal [facility] Comment on above: Result Comment: 3.3 - 4.4 LOW RISK 4.4 - 7.1 AVERAGE RISK 7.1 - 11.0 MODERATE RISK >11.0 HIGH RISK Performed By: #### L IPID, CMP ####[facility] [address] [place], [place] [address]XbBud Vásquez Cholesterol [Mass/Vol] 149 mg/dL Normal <=200 [facility] Comment on above: Performed By: #### L IPID, CMP ####[facility] [address] [place], [place] [address]JuBud Vásquez Cholesterol in HDL [Mass/Vol] 83 mg/dL Critically high 40-60 [facility] Comment on above: Performed By: #### L IPID, CMP ####[facility] [address] [place] [address]Dr. Aissatou Vásquez Cholesterol in LDL [Mass/Vol] 58.6 mg/dL Normal [facility] Comment on above: Performed By: #### L IPID, CMP ####[facility] [address] [place] [address]Dr. Aissatou Vásquez Cholesterol.total/Cho lesterol in HDL [Mass ratio] 1.8 {ratio} Normal [facility] Comment on above: Performed By: #### L IPID, CMP ####[facility] [address] [place] [address]Dr. Aissatou Vásquez HDL NORMAL > or = 60 mg/dl - LO W CARDIOVASCULAR RISK <40 mg/dl - HIGH CARDIOVASCULAR RISK Normal [facility] Comment on above: Performed By: #### L IPID, CMP ####[facility] [address] [place] [address]Dr. Aissatou Vásquez LDL CALC NORMAL SEE BELOW Normal [facility] Comment on above: Result Comment: <100 mg/dl OPTIMAL 100 - 129 mg/dl NEAR OR ABOVE OPTIMAL 130 - 159 mg/dl BORDERLINE HIGH 160 - 189 mg/dl HIGH >190 mg/dl VERY HIGH Performed By: #### L IPID, CMP ####[facility] [address] [place] [address]Dr. Aissatou Vásquez Triglyceride [Mass/Vol] 37 mg/dL Normal <=150 [facility] Comment on above: Performed By: #### L IPID, CMP ####[facility] [address] [place] [id number]. Aissatou Vásquez VLDL CALC 7.4 mg/dL Normal [facility] Comment on above: Performed By: #### L IPID, CMP ####[facility] [address] [place] [address]Dr. Aissatou Vásquez PROF 14(COMP METB)on 023 Albumin [Mass/Vol] 3.8 g/dL Normal 3.4-5.0 [facility] Comment on above: Performed By: #### L IPID, CMP ####[facility] [address] [place] [address]Dr. Aissatou Vásquez Albumin/Globulin [Mass ratio] 1.0 {ratio} Normal [facility] Comment on above: Performed By: #### L IPID, CMP ####[facility] [address] [place] [address]Dr. Aissatou Vásquez ALP [Catalytic activity/Vol] 98 U/L Normal 46-116 [facility] Comment on above: Performed By: #### L IPID, CMP ####[facility] [address] [place] [address]Dr. Aissatou Vásquez ALT [Catalytic activity/Vol] 25 U/L Normal 16-63 [facility] Comment on above: Performed By: #### L IPID, CMP ####[facility] [address] [place] [address]Dr. Aissatou Vásquez Anion gap [Moles/Vol] 15.5 mmol/L Normal [facility] Comment on above: Performed By: #### L IPID, CMP ####[facility] [address] [place] [address]Dr. Aissatou áVsquez AST [Catalytic activity/Vol] 21 U/L Normal 15-37 [facility] Comment on above: Performed By: #### L IPID, CMP ####[facility] [address] [place] [address]Dr. Aissatou Vásquez Bilirubin [Mass/Vol] 0.5 mg/dL Normal 0.2-1.0 [facility] Comment on above: Performed By: #### L IPID, CMP ####[facility] [address] [place] [address]Dr. Aissatou Vásquez Calcium [Mass/Vol] 9.5 mg/dL Normal 8.5-10.1 [facility] Comment on above: Performed By: #### L IPID, CMP ####[facility] [address] [place] [address]Dr. Aissatou Vásquez Chloride [Moles/Vol] 107 mmol/L Normal 98-107 [facility] Comment on above: Performed By: #### L IPID, CMP ####[facility] [address] [place], [place] [address]Dr. Aissatou Vásquez CO2 [Moles/Vol] 23.0 mmol/L Normal 21.0-32.0 [facility] Comment on above: Performed By: #### L IPID, CMP ####[facility] [address] [place], [place] [address]Dr. Aissatou Vásquez Creatinine [Mass/Vol] 1.75 mg/dL Critically high 0.70-1.30 [facility] Comment on above: Performed By: #### L IPID, CMP ####[facility] [address] [place], [place] [address]Dr. Aissatou Vásquez EGFR-AF BOTSWANAN 45 mL/min/1.73m2 Critically low >=60 [facility] Comment on above: Performed By: #### L IPID, CMP ####[facility] [address] [place], [place] [address]Dr. Aissatou Vásquez EGFR-NON AF BOTSWANAN 37 mL/min/1.73m2 Critically low >=60 [facility] Comment on above: Performed By: #### L IPID, CMP ####[facility] [address] [place], [place] [address]Dr. Aissatou Vásquez Globulin (S) [Mass/Vol] 3.7 g/dL Normal [facility] Comment on above: Performed By: #### L IPID, CMP ####[facility] [address] [place], [place] [address]Dr. Aissatou Vásquez Glucose [Mass/Vol] 83 mg/dL Normal 74-106 [facility] Comment on above: Performed By: #### L IPID, CMP ####[facility] [address] [place], [place] [address]Dr. Aissatou Vásquez Potassium [Moles/Vol] 4.5 mmol/L Normal 3.5-5.1 [facility] Comment on above: Performed By: #### L IPID, CMP ####[facility] [address] [place], [place] [address]Ob. Aissatou Vásquez Protein [Mass/Vol] 7.5 g/dL Normal 6.4-8.2 [facility] Comment on above: Performed By: #### L IPID, CMP ####[facility] [address] [place], [place] [address]Gj. Aissatou Vásquez Sodium [Moles/Vol] 141 mmol/L Normal 136-145 [facility] Comment on above: Performed By: #### L IPID, CMP ####[facility] [address] [place], [place] [address]Rm. Aissatou Vásquez Urea nitrogen [Mass/Vol] 46.0 mg/dL Critically high 7.0-18.0 [facility] Comment on above: Performed By: #### L IPID, CMP ####[facility] [address] [place], [place] [address]Tp. Aissatou Vásquez Urea nitrogen/Creatinine [Mass ratio] 26.3 mg/mg Normal [facility] Comment on above: Performed By: #### L IPID, CMP ####[facility] [address] [place], [place] [address]Zw. Aissatou Vásquez Office Visiton 09-22-2022 Follow-up visit [id number] Leanna Nelson 1940 M Date Provider Department Center 09/22/2022 Alexandrea-IRINEO BOSS [facility] [place] No family history on file Level of Service:39289 UT OFFICE/OUTPATIENT ESTABLISHED MOD MDM 30-39 MIN Reason for Visit and Comments: office visit [Other] - brother made appt had appt with neuro thought they heard something when listening to heart. confirmed Normal [facility] 25([place])D3 [facility] 25-hydroxyvitamin D3 [Mass/Vol] 28.6 ng/mL Low 31.0-80.0 [facility] Comment on above: Order Comment: Speci men Type: BLOOD SPECIMEN Ordering Facility: [facility] Address: [address] [place] [id number] Result Comment: Clas sification of 25 [place] Vitamin D status: Deficiency/Insufficiency: < or = 30 ng/ml. Sufficiency/Optimal Levels: 31-80 ng/mL Toxicity: > 100 ng/mL. Test performed by chemiluminescent immunoassay. Performed By: #### 1 989-3 #### [facility] CLIA [id number] [address] [place] [address] [place] CNOVon 08-27-2022 CNOV Office Visit (NEUAV4 ) GOPILEANNA Torey ([id number]) 1940 M Date Time Provider Department 08/27/22 1:00 PM JODI BANERJEEAV4 During your visit today, we recorded the following information about you: Pulse Blood pressure 69/minute 156/70 Jodi Banerjee DO 08/27/2022 2:35 PM Addendum [facility] [place] New Patient Consultation August 27, 2022 HPI: [...] there. They have been working with social work nurse at the facility he is at but [...] Coronary atherosclerosis of unspecified type of vessel, [place] or graft 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 Dyslipidemia Hypertension Hypertension Hypothyroid Lumbar disc disease Unspecified hypothyroidism Hypothyroidism PAST SURGICAL HISTORY Procedure Laterality Date PAST SURGICAL HISTORY OF CABG times 6 left internal thoracic artery to the kog-kz-dsznhs left anterior descending artery, reverse saphenous vein [...] on 08/07 (more content not included)... Normal [facility] Reagin and Treponema pallidu m IgG and IgM [Interp]on 08-27-2022 SYPHILIS INTERPRETATION Cannot exclude recent Treponemal infection if specimen collected within 7-10 days after appearance of suspect lesions or 2-3 weeks after an exposure. Clinical correlation is required. Normal [facility] Comment on above: Order Comment: Speci men Type: BLOOD SPECIMEN Ordering Facility: [facility] Address: [address] [place] [address] Performed By: #### 7 3752-8 #### [facility] CLIA [id number] [address] [place] [address] [place] T. pallidum IgG+IgM IA Ql (S) Non-Reactive Normal Nonreactive [facility] Comment on above: Order Comment: Speci men Type: BLOOD SPECIMEN Ordering Facility: [facility] Address: [address] [address] Performed By: #### 7 3752-8 #### [facility] CLIA [id number] [facility] [place] [address] [place] CREATININEon 07-11-2022 Creatinine [Mass/Vol] 2.09 mg/dL Critically high 0.70-1.30 [facility] Comment on above: Performed By: #### C ADAM #### [facility] [address] [place] [address] [address] Aissatou Vásquez EGFR-AF BOTSWANAN 37 mL/min/1.73m2 Critically low >=60 [facility] Comment on above: Performed By: #### C ADAM #### [facility] [address] [place] [address] [address] Aissatou Vásquez EGFR-NON AF BOTSWANAN 30 mL/min/1.73m2 Critically low >=60 [facility] Comment on above: Performed By: #### C ADAM #### [facility] [address] [place] [address] [address] Aissatou Vásquez MRI BRAIN WO CONon [...] LEATHA GAVIRIA Date: 2022-07-11 15:11 Normal [facility] CULTURE BLOODon 07-10-2022 Microscopic examination of [...] Tetracycline S P Tobramycin S P Normal [facility] Comment on above: Performed By: #### B LDCX2 ####[facility] [address] [place] [address]Dr. Aissatou Vásquez CBC AUTO DIFFon 07-04-2022 BASO # 0.0 103/ul Normal 0.0-0.1 [facility] Comment on above: Performed By: #### L DHARA WAITE, HSTROPN #### [facility] [address] [address] [address] Aissatou Vásquez Basophils/100 WBC (Bld) 0.3 % Normal 0.2-2.0 [facility] Comment on above: Performed By: #### L DHARA WAITE, HSTROPN #### [facility] [address] [address] [address] Aissatou Vásquez EO # 0.0 103/ul Normal 0.0-0.7 [facility] Comment on above: Performed By: #### L DHARA WAITE, HSTROPN #### [facility] [address] [address] [address] Aissatou Vásquez Eosinophils/100 WBC (Bld) 0.6 % Critically low 0.9-7.0 [facility] Comment on above: Performed By: #### L DHARA WAITE, HSTROPN #### [facility] [address] [address] [address] Aissatou Vásquez Erythrocyte distribution width (RBC) [Ratio] 13.7 % Normal 11.0-15.0 [facility] Comment on above: Performed By: #### L DHARA WAITE, HSTROPN #### [facility] [address] [place] [address] [address] Aissatou Vásquez Hematocrit (Bld) [Volume fraction] 34.2 % Critically low 42.0-54.0 [facility] Comment on above: Performed By: #### L IVER, BMP, HSTROPN #### [facility] [address] [place] [address] Dr. Aissatou Vásquez Hemoglobin (Bld) [Mass/Vol] 10.7 g/dL Critically low 14.0-18.0 [facility] Comment on above: Performed By: #### L IVER, BMP, HSTROPN #### [facility] [address] [place] [address] Dr. iAssatou Vásquez IG # 0.02 10e3/ul Normal 0.00-0.03 [facility] Comment on above: Performed By: #### L IVER, BMP, HSTROPN #### [facility] [address] [place] [address] Dr. Aissatou Vásquez IG % 0.3 % Normal 0.0-0.5 [facility] Comment on above: Performed By: #### L IVER, BMP, HSTROPN #### [facility] [address] [place] [address] Dr. Aissatou Vásquez LYMPH # 1.7 103/ul Normal 1.2-3.8 [facility] Comment on above: Performed By: #### L IVER, BMP, HSTROPN #### [facility] [address] [place] [address] Dr. Aissatou Vásquez Lymphocytes/100 WBC (Bld) 25.6 % Normal 20.5-60.0 [facility] Comment on above: Performed By: #### L IVER, BMP, HSTROPN #### [facility] [address] [place] [address] Dr. Aissatou Vásquez MANUAL DIFF REQ NO Normal [facility] Comment on above: Performed By: #### L IVER, BMP, HSTROPN #### [facility] [address] [place] [address] Dr. Aissatou Vásquez MCH (RBC) [Entitic mass] 29.6 pg Normal 25.9-34.0 [facility] Comment on above: Performed By: #### L IVER, BMP, HSTROPN #### [facility] [address] [place] [address] Dr. Aissatou Vásquez MCHC (RBC) [Mass/Vol] 31.3 g/dL Normal 29.9-35.2 [facility] Comment on above: Performed By: #### L IVER, BMP, HSTROPN #### [facility] [address] [place] [address] Dr. Aissatou Vásquez MCV (RBC) [Entitic vol] 94.5 fL Critically high 80.0-94.0 [facility] Comment on above: Performed By: #### L IVER, BMP, HSTROPN #### [facility] [address] [place] [address] Dr. Aissatou Vásquez MONO # 0.7 103/ul Normal 0.3-0.8 [facility] Comment on above: Performed By: #### L IVER, BMP, HSTROPN #### [facility] [address] [place] [address] Dr. Aissatou Vásquez Monocytes/100 WBC (Bld) 11.2 % Normal 1.7-12.0 [facility] Comment on above: Performed By: #### L IVER, BMP, HSTROPN #### [facility] [address] [place] [address] Dr. Aissatou Vásquez NEUT # 4.0 103/ul Normal 1.4-6.5 [facility] Comment on above: Performed By: #### L IVER, BMP, HSTROPN #### [facility] [address] [place] [address] Dr. Aissatou Vásquez Neutrophils/100 WBC (Bld) 62.0 % Normal 43.0-75.0 [facility] Comment on above: Performed By: #### L IVER, BMP, HSTROPN #### [facility] [address] [place] [address] Dr. Aissatou Vásquez Platelet mean volume (Bld) [Entitic vol] 10.4 fL Normal 9.5-13.5 [facility] Comment on above: Performed By: #### L IVER, BMP, HSTROPN #### [facility] [address] [address] [address] Aissatou Vásquez PLT 134 103/ul Critically low 150-450 [facility] Comment on above: Performed By: #### L IVER, BMP, HSTROPN #### [facility] [address] [address] [address] Aissatou Vásquez RBC 3.62 106/ul Critically low 4.70-6.10 [facility] Comment on above: Performed By: #### L IVER, BMP, HSTROPN #### [facility] [address] [address] [address] Aissatou Vásquez WBC 6.5 103/ul Normal 4.0-11.0 [facility] Comment on above: Performed By: #### L IVER, BMP, HSTROPN #### [facility] [address] [place] [address] Dr. Aissatou Vásquez CPKon 07-04-2022 CK [Catalytic activity/Vol] 149 U/L Normal 39-308 [facility] Comment on above: Performed By: #### L IVER, BMP, HSTROPN #### [facility] [address] [address] [address] Aissatou Vásquez MAGNESIUMon 07-04-2022 Magnesium [Mass/Vol] 1.7 mg/dL Critically low 1.8-2.4 [facility] Comment on above: Performed By: #### L IVER, BMP, HSTROPN #### [facility] [address] [address] [address] Aissatou Vásquez PHOSPHORUSon 07-04-2022 Phosphate [Mass/Vol] 3.6 mg/dL Normal 2.6-4.7 [facility] Comment on above: Performed By: #### L IVER, BMP, HSTROPN #### [facility] [address] [place] [address] Dr. Aissatou Vásquez PROF 14(COMP METB)on Albumin [Mass/Vol] 2.8 g/dL Critically low 3.4-5.0 [facility] Comment on above: Performed By: #### L IVER, BMP, HSTROPN #### [facility] [address] [address] [address] Aissatou Vásquez Albumin/Globulin [Mass ratio] 0.9 {ratio} Normal [facility] Comment on above: Performed By: #### L IVER, BMP, HSTROPN #### [facility] [address] [place] [address] Dr. Aissatou Vásquez ALP [Catalytic activity/Vol] 86 U/L Normal 46-116 [facility] Comment on above: Performed By: #### L IVER, BMP, HSTROPN #### [facility] [address] [place] [address] Dr. Aissatou Vásquez ALT [Catalytic activity/Vol] 50 U/L Normal 16-63 [facility] Comment on above: Performed By: #### L IVER, BMP, HSTROPN #### [facility] [address] [place] [address] Dr. Aissatou Vásquez Anion gap [Moles/Vol] 11.6 mmol/L Normal [facility] Comment on above: Performed By: #### L IVER, BMP, HSTROPN #### [facility] [address] [place] [address] Dr. Aissatou Vásquez AST [Catalytic activity/Vol] 41 U/L Critically high 15-37 [facility] Comment on above: Performed By: #### L IVER, BMP, HSTROPN #### [facility] [address] [place] [address] Dr. Aissatou Vásquez Bilirubin [Mass/Vol] 0.4 mg/dL Normal 0.2-1.0 [facility] Comment on above: Performed By: #### L IVER, BMP, HSTROPN #### [facility] [address] [place] [address] Dr. Aissatou Vásquez Calcium [Mass/Vol] 8.7 mg/dL Normal 8.5-10.1 [facility] Comment on above: Performed By: #### L IVER, BMP, HSTROPN #### [facility] [address] [place] [address] Dr. Aissatou Vásquez Chloride [Moles/Vol] 106 mmol/L Normal 98-107 [facility] Comment on above: Performed By: #### L IVER, BMP, HSTROPN #### [facility] [address] [place] [address] Dr. Aissatou Vásquez CO2 [Moles/Vol] 27.0 mmol/L Normal 21.0-32.0 [facility] Comment on above: Performed By: #### L IVER, BMP, HSTROPN #### [facility] [address] [place] [address] Dr. Aissatou Vásquez Creatinine [Mass/Vol] 1.99 mg/dL Critically high 0.70-1.30 [facility] Comment on above: Performed By: #### L IVER, BMP, HSTROPN #### [facility] [address] [place] [address] Dr. Aissatou Vásquez EGFR-AF BOTSWANAN 39 mL/min/1.73m2 Critically low >=60 [facility] Comment on above: Performed By: #### L IVER, BMP, HSTROPN #### [facility] [address] [place] [address] Dr. Aissatou Vásquez EGFR-NON AF BOTSWANAN 32 mL/min/1.73m2 Critically low >=60 [facility] Comment on above: Performed By: #### L IVER, BMP, HSTROPN #### [facility] [address] [place] [address] Dr. Aissatou Vásquez Globulin (S) [Mass/Vol] 3.1 g/dL Normal [facility] Comment on above: Performed By: #### L IVER, BMP, HSTROPN #### [facility] [address] [place] [address] Dr. Aissatou Vásquez Glucose [Mass/Vol] 93 mg/dL Normal 74-106 [facility] Comment on above: Performed By: #### L IVER, BMP, HSTROPN #### [facility] [address] [place] [address] Dr. Aissatou Vásquez Potassium [Moles/Vol] 4.6 mmol/L Normal 3.5-5.1 [facility] Comment on above: Performed By: #### L DHARA WAITE, HSTROPN #### [facility] [address] [address] [address] Aissatou Vásquez Protein [Mass/Vol] 5.9 g/dL Critically low 6.4-8.2 [facility] Comment on above: Performed By: #### L IVDHARA LANDRY, HSTROPN #### [facility] [address] [address] [address] Aissatou Vásquez Sodium [Moles/Vol] 140 mmol/L Normal 136-145 The [facility] Comment on above: Performed By: #### L IVDHARA LANDRY, HSTROPN #### [facility] [address] [address] [address] Aissatou Vásquez Urea nitrogen [Mass/Vol] 50.0 mg/dL Critically high 7.0-18.0 [facility] Comment on above: Performed By: #### L IVDHARA LANDRY, HSTROPN #### [facility] [address] [address] [address] Aissatou Vásquez Urea nitrogen/Creatinine [Mass ratio] 25.1 mg/mg Normal [facility] Comment on above: Performed By: #### L DHARA WAITE, HSTROPN #### [facility] [address] [address] [address] Aissatou Vásquez PROTIMEon 07-04-2022 INR Coag (PPP) [Relative time] 1.05 {INR} Normal [facility] Comment on above: Performed By: #### C ADAM #### [facility] [address] [address] [address] Aissatou Vásquez INR GUIDELINES SEE BELOW Normal [facility] Comment on above: Result Comment: ELISABETH RED INR: 2.0 - 3.0 CONDITIONS NOT LISTED BELOW 2.5 - 3.5 FOR PROSTHETIC HEART VALVE REPLACEMENT 2.5 - 3.5 RECURRENT THROMBOSIS Performed By: #### C ADAM #### [facility] [address] [place] [address] Dr. Aissatou Vásquez PT Coag (PPP) [Time] 11.3 s Normal 9.0-11.6 [facility] Comment on above: Performed By: #### C ADAM #### [facility] [address] [place] [address] Dr. Aissatou Vásquez CBC AUTO DIFFon 07-03-2022 BASO # 0.0 103/ul Normal 0.0-0.1 [facility] Comment on above: Performed By: #### L IVER, BMP, HSTROPN #### [facility] [address] [place] [address] Dr. Aissatou Vásquez Basophils/100 WBC (Bld) 0.3 % Normal 0.2-2.0 [facility] Comment on above: Performed By: #### L IVER, BMP, HSTROPN #### [facility] [address] [place] [address] Dr. Aissatou Vásquez EO # 0.0 103/ul Normal 0.0-0.7 [facility] Comment on above: Performed By: #### L IVER, BMP, HSTROPN #### [facility] [address] [place] [address] Dr. Aissatou Vásquez Eosinophils/100 WBC (Bld) 0.3 % Critically low 0.9-7.0 [facility] Comment on above: Performed By: #### L IVER, BMP, HSTROPN #### [facility] [address] [place] [address] Dr. Aissatou Vásquez Erythrocyte distribution width (RBC) [Ratio] 13.8 % Normal 11.0-15.0 [facility] Comment on above: Performed By: #### L IVER, BMP, HSTROPN #### [facility] [address] [place] [address] Dr. Aissatou Vásquez Hematocrit (Bld) [Volume fraction] 31.7 % Critically low 42.0-54.0 [facility] Comment on above: Performed By: #### L IVER, BMP, HSTROPN #### [facility] [address] [place] [address] Dr. Aissatou Vásquez Hemoglobin (Bld) [Mass/Vol] 10.2 g/dL Critically low 14.0-18.0 [facility] Comment on above: Performed By: #### L IVER, BMP, HSTROPN #### [facility] [address] [address] [address] Aissatou Vásquez IG # 0.02 10e3/ul Normal 0.00-0.03 [facility] Comment on above: Performed By: #### L IVER, BMP, HSTROPN #### [facility] [address] [place] [address] Dr. Aissatou Vásquez IG % 0.3 % Normal 0.0-0.5 [facility] Comment on above: Performed By: #### L IVER, BMP, HSTROPN #### [facility] [address] [place] [address] Dr. Asisatou Vásquez LYMPH # 1.5 103/ul Normal 1.2-3.8 [facility] Comment on above: Performed By: #### L IVER, BMP, HSTROPN #### [facility] [address] [place] [address] Dr. Aissatou Vásquez Lymphocytes/100 WBC (Bld) 20.3 % Critically low 20.5-60.0 [facility] Comment on above: Performed By: #### L IVER, BMP, HSTROPN #### [facility] [address] [place] [address] Dr. Aissatou Vásquez MANUAL DIFF REQ NO Normal [facility] Comment on above: Performed By: #### L IVER, BMP, HSTROPN #### [facility] [address] [place] [address] Dr. Aissatou Vásquez MCH (RBC) [Entitic mass] 30.3 pg Normal 25.9-34.0 [facility] Comment on above: Performed By: #### L IVER, BMP, HSTROPN #### [facility] [address] [place] [address] Dr. Aissatou Vásquez MCHC (RBC) [Mass/Vol] 32.2 g/dL Normal 29.9-35.2 [facility] Comment on above: Performed By: #### L IVER, BMP, HSTROPN #### [facility] [address] [place] [address] Dr. Aissatou Vásquez MCV (RBC) [Entitic vol] 94.1 fL Critically high 80.0-94.0 [facility] Comment on above: Performed By: #### L IVER, BMP, HSTROPN #### [facility] [address] [place] [address] Dr. Aissatou Vásquez MONO # 0.7 103/ul Normal 0.3-0.8 [facility] Comment on above: Performed By: #### L IVER, BMP, HSTROPN #### [facility] [address] [place] [address] Dr. Aissatou Vásquez Monocytes/100 WBC (Bld) 9.9 % Normal 1.7-12.0 [facility] Comment on above: Performed By: #### L IVER, BMP, HSTROPN #### [facility] [address] [place] [address] Dr. Aissatou Vásquez NEUT # 4.9 103/ul Normal 1.4-6.5 [facility] Comment on above: Performed By: #### L IVER, BMP, HSTROPN #### [facility] [address] [place] [address] Dr. Aissatou Vásquez Neutrophils/100 WBC (Bld) 68.9 % Normal 43.0-75.0 [facility] Comment on above: Performed By: #### L IVER, BMP, HSTROPN #### [facility] [address] [place] [address] Dr. Aissatou Vásquez Platelet mean volume (Bld) [Entitic vol] 10.7 fL Normal 9.5-13.5 [facility] Comment on above: Performed By: #### L IVER, BMP, HSTROPN #### [facility] [address] [place] [address] Dr. Aissatou Vásquez PLT 141 103/ul Critically low 150-450 [facility] Comment on above: Performed By: #### L IVER, BMP, HSTROPN #### [facility] [address] [address] [address] Aissatou Vásquez RBC 3.37 106/ul Critically low 4.70-6.10 [facility] Comment on above: Performed By: #### L IVER, BMP, HSTROPN #### [facility] [address] [address] [address] Aissatou Vásquez WBC 7.1 103/ul Normal 4.0-11.0 [facility] Comment on above: Performed By: #### L IVER, BMP, HSTROPN #### [facility] [address] [address] [address] Aissatou Vásquez CPKon 07-03-2022 CK [Catalytic activity/Vol] 331 U/L Critically high 39-308 [facility] Comment on above: Performed By: #### L IVER, BMP, HSTROPN #### [facility] [address] [address] [address] Aissatou Vásquez CT ABD/PELVIS WO CONon [...] STEPHEN ROUSE Date: 2022-07-03 11:06 Normal [facility] CULTURE BLOODon 07-03-2022 Microscopic examination of blood, culture Culture Observations: NO GROWTH AT 5 DAYS. Normal [facility] Comment on above: Performed By: #### B LDCX2 ####[facility] [address] [address]Dr. Aissatou Vásquez Microscopic examination of blood, culture Culture Observations: NO GROWTH AT 5 DAYS. Normal [facility] Comment on above: Performed By: #### B LDCX1 ####[facility] [address] [address]Dr. Aissatou Vsáquez MAGNESIUMon 07-03-2022 Magnesium [Mass/Vol] 1.8 mg/dL Normal 1.8-2.4 [facility] Comment on above: Performed By: #### DHARA KONG HSTROPN #### [facility] [address] [address] [address] Aissatou Vásquez PHOSPHORUSon 07-03-2022 Phosphate [Mass/Vol] 4.0 mg/dL Normal 2.6-4.7 [facility] Comment on above: Performed By: #### DHARA KONG HSTROPN #### [facility] [address] [address] [address] Aissatou Vásquez POINT OF CARE GLUCOSEon 06-06 Glucose [Mass/Vol] 77 mg/dL Normal 74-106 [facility] Comment on above: Performed By: #### Soni ADAM #### [facility] [address] [address] [address] Aissatou Vásquez PROF 14(COMP METB)on 022 Albumin [Mass/Vol] 2.6 g/dL Critically low 3.4-5.0 Th [facility] Comment on above: Performed By: #### L IVER, BMP, HSTROPN #### [facility] [address] [address] [address] Aissatou Vásquez Albumin/Globulin [Mass ratio] 0.9 {ratio} Normal [facility] Comment on above: Performed By: #### L IVER, BMP, HSTROPN #### [facility] [address] [address] [address] Aissatou Vásquez ALP [Catalytic activity/Vol] 81 U/L Normal 46-116 [facility] Comment on above: Performed By: #### L IVER, BMP, HSTROPN #### [facility] [address] [place] [address] Dr. Aissatou Vásquez ALT [Catalytic activity/Vol] 46 U/L Normal 16-63 [facility] Comment on above: Performed By: #### L IVER, BMP, HSTROPN #### [facility] [address] [place] [address] Dr. Aissatou Vásquez Anion gap [Moles/Vol] 11.9 mmol/L Normal [facility] Comment on above: Performed By: #### L IVER, BMP, HSTROPN #### [facility] [address] [place] [address] Dr. Aissatou Vásquez AST [Catalytic activity/Vol] 45 U/L Critically high 15-37 [facility] Comment on above: Performed By: #### L IVER, BMP, HSTROPN #### [facility] [address] [address] [address] Aissatou Vásquez Bilirubin [Mass/Vol] 0.2 mg/dL Normal 0.2-1.0 [facility] Comment on above: Performed By: #### L IVER, BMP, HSTROPN #### [facility] [address] [place] [address] Dr. Aissatou Vásquez Calcium [Mass/Vol] 8.5 mg/dL Normal 8.5-10.1 [facility] Comment on above: Performed By: #### L IVER, BMP, HSTROPN #### [facility] [address] [address] [address] Aissatou Vásquez Chloride [Moles/Vol] 108 mmol/L Critically high 98-107 [facility] Comment on above: Performed By: #### L IVER, BMP, HSTROPN #### [facility] [address] [address] [address] Aissatou Vásquez CO2 [Moles/Vol] 25.9 mmol/L Normal 21.0-32.0 [facility] Comment on above: Performed By: #### L IVER, BMP, HSTROPN #### [facility] [address] [place] [address] Dr. Aissatou Vásquez Creatinine [Mass/Vol] 2.34 mg/dL Critically high 0.70-1.30 [facility] Comment on above: Performed By: #### L IVER, BMP, HSTROPN #### [facility] [address] [place] [address] Dr. Aissatou Vásquez EGFR-AF BOTSWANAN 32 mL/min/1.73m2 Critically low >=60 [facility] Comment on above: Performed By: #### L IVER, BMP, HSTROPN #### [facility] [address] [place] [address] Dr. Aissatou Vásquez EGFR-NON AF BOTSWANAN 27 mL/min/1.73m2 Critically low >=60 [facility] Comment on above: Performed By: #### L IVER, BMP, HSTROPN #### [facility] [address] [address] [address] Aissatou Vásquez Globulin (S) [Mass/Vol] 3.0 g/dL Normal [facility] Comment on above: Performed By: #### L IVER, BMP, HSTROPN #### [facility] [address] [place] [address] Dr. Aissatou Vásquez Glucose [Mass/Vol] 93 mg/dL Normal 74-106 [facility] Comment on above: Performed By: #### L IVER, BMP, HSTROPN #### [facility] [address] [place] [address] Dr. Aissatou Vásquez Potassium [Moles/Vol] 4.8 mmol/L Normal 3.5-5.1 [facility] Comment on above: Performed By: #### L IVDHARA LANDRY, HSTROPN #### [facility] [address] [address] [address] Aissatou Vásquez Protein [Mass/Vol] 5.6 g/dL Critically low 6.4-8.2 [facility] Comment on above: Performed By: #### L IVFRANTZ BMP, HSTROPN #### [facility] [address] [address] [address] Aissatou Vásquez Sodium [Moles/Vol] 141 mmol/L Normal 136-145 [facility] Comment on above: Performed By: #### L IVFRANTZ BMP, HSTROPN #### [facility] [address] [place] [address] Dr. Aissatou Vásquez Urea nitrogen [Mass/Vol] 61.0 mg/dL Critically high 7.0-18.0 [facility] Comment on above: Performed By: #### L IVDHARA LANDRY, HSTROPN #### [facility] [address] [place] [address] Dr. Aissatou Vásquez Urea nitrogen/Creatinine [Mass ratio] 26.1 mg/mg Normal [facility] Comment on above: Performed By: #### L IVDHARA LANDRY, HSTROPN #### [facility] [address] [place] [address] Dr. Aissatou Vásquez PROTIMEon 07-03-2022 INR Coag (PPP) [Relative time] 1.12 {INR} Normal [facility] Comment on above: Performed By: #### C ADAM #### [facility] [address] [place] [address] Dr. Aissatou Vásquez INR GUIDELINES SEE BELOW Normal [facility] Comment on above: Result Comment: ELISABETH RED INR: 2.0 - 3.0 CONDITIONS NOT LISTED BELOW 2.5 - 3.5 FOR PROSTHETIC HEART VALVE REPLACEMENT 2.5 - 3.5 RECURRENT THROMBOSIS Performed By: #### C ADAM #### [facility] [address] [address] [address] Aissatou Vásquez PT Coag (PPP) [Time] 12.0 s Critically high 9.0-11.6 [facility] Comment on above: Performed By: #### C ADAM #### [facility] [address] [address] [address] Aissatou Vásquez CBC AUTO DIFFon 07-02-2022 BASO # 0.0 103/ul Normal 0.0-0.1 [facility] Comment on above: Performed By: #### C BC ####[facility] [address] [address]DrBud Vásquez Basophils/100 WBC (Bld) 0.1 % Critically low 0.2-2.0 [facility] Comment on above: Performed By: #### C BC ####[facility] [address] [place], [place] [address]Dr. Aissatou Vásquez EO # 0.0 103/ul Normal 0.0-0.7 [facility] Comment on above: Performed By: #### C BC ####[facility] [address] [address]Dr. Aissatou Vásquez Eosinophils/100 WBC (Bld) 0.0 % Critically low 0.9-7.0 [facility] Comment on above: Performed By: #### C BC ####[facility] [address] [place], [place] [address]DrBud Vásquez Erythrocyte distribution width (RBC) [Ratio] 13.4 % Normal 11.0-15.0 [facility] Comment on above: Performed By: #### C BC ####[facility] [address] [place], [place] [address]Dr. Aissatou Vásquez Hematocrit (Bld) [Volume fraction] 39.9 % Critically low 42.0-54.0 [facility] Comment on above: Performed By: #### C BC ####[facility] [address] [place], [place] [address]DrBud Vásquez Hemoglobin (Bld) [Mass/Vol] 12.8 g/dL Critically low 14.0-18.0 [facility] Comment on above: Performed By: #### C BC ####[facility] [address] [id number]. Sheysarah Vásquez IG # 0.05 10e3/ul Critically high 0.00-0.03 [facility] Comment on above: Performed By: #### C BC ####[facility] [address] [id number]. Aissatou Vásquez IG % 0.4 % Normal 0.0-0.5 [facility] Comment on above: Performed By: #### C BC ####[facility] [address] [address]Dr. Aissatou Vásquez LYMPH # 0.8 103/ul Critically low 1.2-3.8 [facility] Comment on above: Performed By: #### C BC ####[facility] [address] [address]Dr. Aissatou Vásquez Lymphocytes/100 WBC (Bld) 7.2 % Critically low 20.5-60.0 [facility] Comment on above: Performed By: #### C BC ####[facility] [address] [address]Dr. Aissatou Vásquez MANUAL DIFF REQ NO Normal [facility] Comment on above: Performed By: #### C BC ####[facility] [address] [id number]. Aissatou Vásquez MCH (RBC) [Entitic mass] 30.0 pg Normal 25.9-34.0 [facility] Comment on above: Performed By: #### C BC ####[facility] [address] [id number]. Aissatou Vásquez MCHC (RBC) [Mass/Vol] 32.1 g/dL Normal 29.9-35.2 [facility] Comment on above: Performed By: #### C BC ####[facility] [address] [address]Dr. Aissatou Vásquez MCV (RBC) [Entitic vol] 93.7 fL Normal 80.0-94.0 [facility] Comment on above: Performed By: #### C BC ####[facility] [address] [id number]. Aissatou Vásquez MONO # 0.8 103/ul Normal 0.3-0.8 [facility] Comment on above: Performed By: #### C BC ####[facility] [address] [id number]. Aissatou Vásquez Monocytes/100 WBC (Bld) 6.8 % Normal 1.7-12.0 [facility] Comment on above: Performed By: #### C BC ####[facility] [address] [id number]. Aissatou Vásquez NEUT # 9.8 103/ul Critically high 1.4-6.5 [facility] Comment on above: Performed By: #### C BC ####[facility] [address] [address]Dr. Aissatou Vásquez Neutrophils/100 WBC (Bld) 85.5 % Critically high 43.0-75.0 [facility] Comment on above: Performed By: #### C BC ####[facility] [address] [id number]. Aissatou Vásquez Platelet mean volume (Bld) [Entitic vol] 10.8 fL Normal 9.5-13.5 [facility] Comment on above: Performed By: #### C BC ####[facility] [address] [id number]. Aissatou Vásquez PLT 170 103/ul Normal 150-450 [facility] Comment on above: Performed By: #### C BC ####[facility] [address] [id number]. Aissatou Vásquez RBC 4.26 106/ul Critically low 4.70-6.10 [facility] Comment on above: Performed By: #### C BC ####[facility] [address] [id number]. Aissatou Vásquez WBC 11.4 103/ul Critically high 4.0-11.0 The [facility] Comment on above: Performed By: #### C BC ####[facility] [address] [place], [place] [address]OgDr. Aissatou Vásquez CKMBon 07-02-2022 CK.MB [Mass/Vol] 80.91 ng/mL Critically high <=3.60 Th [facility] Comment on above: Performed By: #### L IVER, BMP, HSTROPN #### [facility] [address] [place], [place] [address] Dr. Aissatou Vásquez CPKon 07-02-2022 CK [Catalytic activity/Vol] 915 U/L Critically high 39-308 [facility] Comment on above: Performed By: #### L IVER, BMP, HSTROPN #### [facility] [address] [place], [place] [address] Dr. Aissatou Vásquez ECHOCARDIO M/2D COMPLETEon 1 09-02-2021 ECHOCARDIO M/2D COMPLETE Patient: LEANNA NELSON Exam Date: 07/02/2022 : 1940 Gender:M Ordering : SHAIKH Delphine RODRIGUEZ . Admission #: [id number] Family : DR PIPE HOPKINS . Order #: [id number] CLICK HERE TO VIEW EXAM ECHOCARDIOGRAM REPORT [...] Cameron M.D. on 07/08/2022 at 09:55 Normal [facility] MAGNESIUMon 07-02-2022 Magnesium [Mass/Vol] 1.9 mg/dL Normal 1.8-2.4 [facility] Comment on above: Performed By: #### L DHARA WAITE, HSTROPN #### [facility] [address] [address] [address] Aissatou Vásquez MYOGLOBINon 07-02-2022 SARAH 1312 ng/mL Critically high 16-96 [facility] Comment on above: Performed By: #### L DHARA WAITE, HSTROPN #### [facility] [address] [address] [address] Aissatou Vásquez PHOSPHORUSon 07-02-2022 Phosphate [Mass/Vol] 6.0 mg/dL Critically high 2.6-4.7 [facility] Comment on above: Performed By: #### L DHARA WAITE, HSTROPN #### [facility] [address] [address] [address] Aissatou Vásquez POINT OF CARE GLUCOSEon 06-06 Glucose [Mass/Vol] 78 mg/dL Normal 74-106 [facility] Comment on above: Performed By: #### C ADAM #### [facility] [address] [address] [address] Aissatou Vásquez Glucose [Mass/Vol] 104 mg/dL Normal 74-106 [facility] Comment on above: Performed By: #### P OCGLUC ####[facility] [address] [address]Dr. Aissatou Vásquez Glucose [Mass/Vol] 83 mg/dL Normal 74-106 [facility] Comment on above: Performed By: #### L IVER, BMP, HSTROPN #### [facility] [address] [address] [address] Aissatou Vásquez Glucose [Mass/Vol] 100 mg/dL Normal 74-106 [facility] Comment on above: Performed By: #### C ADAM #### [facility] [address] [address] [address] Aissatou Vásquez Glucose [Mass/Vol] 73 mg/dL Critically low 74-106 [facility] Comment on above: Performed By: #### P OCGLUC ####[facility] [address] [address]Dr. Aissatou Vásquez PROF 14(COMP METB)on 022 Albumin [Mass/Vol] 3.3 g/dL Critically low 3.4-5.0 [facility] Comment on above: Performed By: #### L IVER, BMP, HSTROPN #### [facility] [address] [address] [address] Aissatou Vásquez Albumin/Globulin [Mass ratio] 1.0 {ratio} Normal [facility] Comment on above: Performed By: #### L IVER, BMP, HSTROPN #### [facility] [address] [address] [address] Aissatou Vásquez ALP [Catalytic activity/Vol] 114 U/L Normal 46-116 [facility] Comment on above: Performed By: #### L IVER, BMP, HSTROPN #### [facility] [address] [address] [address] Aissatou Vásquez ALT [Catalytic activity/Vol] 48 U/L Normal 16-63 [facility] Comment on above: Performed By: #### L IVER, BMP, HSTROPN #### [facility] [address] [address] [address] Aissatou Vásquez Anion gap [Moles/Vol] 17.3 mmol/L Normal [facility] Comment on above: Performed By: #### L IVER, BMP, HSTROPN #### [facility] [address] [place] [address] Dr. Aissatou Vásquez AST [Catalytic activity/Vol] 68 U/L Critically high 15-37 [facility] Comment on above: Performed By: #### L IVER, BMP, HSTROPN #### [facility] [address] [address] [address] Aissatou Vásquez Bilirubin [Mass/Vol] 0.5 mg/dL Normal 0.2-1.0 [facility] Comment on above: Performed By: #### L IVER, BMP, HSTROPN #### [facility] [address] [place] [address] Dr. Aissatou Vásquez Calcium [Mass/Vol] 8.9 mg/dL Normal 8.5-10.1 [facility] Comment on above: Performed By: #### L IVER, BMP, HSTROPN #### [facility] [address] [place] [address] Dr. Aissatou Vásquez Chloride [Moles/Vol] 109 mmol/L Critically high 98-107 [facility] Comment on above: Performed By: #### L IVER, BMP, HSTROPN #### [facility] [address] [address] [address] Aissatou Vásquez CO2 [Moles/Vol] 22.8 mmol/L Normal 21.0-32.0 [facility] Comment on above: Performed By: #### L IVER, BMP, HSTROPN #### [facility] [address] [place] [address] Dr. Aissatou Vásquez Creatinine [Mass/Vol] 1.89 mg/dL Critically high 0.70-1.30 [facility] Comment on above: Performed By: #### L IVER, BMP, HSTROPN #### [facility] [address] [place] [address] Dr. Aissatou Vásquez EGFR-AF BOTSWANAN 41 mL/min/1.73m2 Critically low >=60 [facility] Comment on above: Result Comment: Prev iously reported as: (blank) On 07/02/2022 05:50 By KD3 Performed By: #### L IVER, BMP, HSTROPN #### [facility] [address] [address] [address] Aissatou Vásquez EGFR-NON AF BOTSWANAN 34 mL/min/1.73m2 Critically low >=60 [facility] Comment on above: Result Comment: Prev iously reported as: (blank) On 07/02/2022 05:50 By KD3 Performed By: #### L IVER, BMP, HSTROPN #### [facility] [address] [address] [address] Aissatou Vásquez Globulin (S) [Mass/Vol] 3.4 g/dL Normal [facility] Comment on above: Performed By: #### L IVER, BMP, HSTROPN #### [facility] [address] [place] [address] Dr. Aissatou Vásquez Glucose [Mass/Vol] 86 mg/dL Normal 74-106 [facility] Comment on above: Performed By: #### L IVER, BMP, HSTROPN #### [facility] [address] [place] [address] Dr. Aissatou Vásquez Potassium [Moles/Vol] 5.1 mmol/L Normal 3.5-5.1 [facility] Comment on above: Performed By: #### L IVER, BMP, HSTROPN #### [facility] [address] [address] [address] Aissatou Vásquez Protein [Mass/Vol] 6.7 g/dL Normal 6.4-8.2 [facility] Comment on above: Performed By: #### L IVER, BMP, HSTROPN #### [facility] [address] [address] [address] Aissatou Vásquez Sodium [Moles/Vol] 144 mmol/L Normal 136-145 [facility] Comment on above: Performed By: #### L IVER, BMP, HSTROPN #### [facility] [address] [place] [address] Dr. Aissatou Vásquez Urea nitrogen [Mass/Vol] 55.0 mg/dL Critically high 7.0-18.0 [facility] Comment on above: Performed By: #### L IVER, BMP, HSTROPN #### [facility] [address] [address] [address] Aissatou Vásquez Urea nitrogen/Creatinine [Mass ratio] 29.1 mg/mg Normal [facility] Comment on above: Performed By: #### L IVER, BMP, HSTROPN #### [facility] [address] [address] [address] Aissatou Vásquez PROTIMEon 07-02-2022 INR Coag (PPP) [Relative time] 1.13 {INR} Normal [facility] Comment on above: Performed By: #### L IVER, BMP, HSTROPN #### [facility] [address] [place] [address] Dr. Aissatou Vásquez INR GUIDELINES SEE BELOW Normal The [facility] Comment on above: Result Comment: ELISABETH RED INR: 2.0 - 3.0 CONDITIONS NOT LISTED BELOW 2.5 - 3.5 FOR PROSTHETIC HEART VALVE REPLACEMENT 2.5 - 3.5 RECURRENT THROMBOSIS Performed By: #### L IVER, BMP, HSTROPN #### [facility] [address] [place] [address] Dr. Aissatou Vásquez PT Coag (PPP) [Time] 12.1 s Critically high 9.0-11.6 [facility] Comment on above: Performed By: #### L IVER, BMP, HSTROPN #### [facility] [address] [place] [address] Dr. Aissatou Vásquez BLOOD CULTURE ID PANELon A. baumannii Not detected Normal NOT DETECTED The [facility] Comment on above: Performed By: #### C ADAM #### [facility] [address] [place] [address] Dr. Aissatou Vásquez Bacteriodes fragilis Not detected Normal NOT DETECTED [facility] Comment on above: Performed By: #### C ADAM #### [facility] [address] [place] [address] Dr. Aissatou Vásquez BCID CONTROLS PASSED Normal The [facility] Comment on above: Performed By: #### C ADAM #### [facility] [address] [place] [address] Dr. Aissatou Vásquez BCIDBTHD BLOOD CULTURE BOTTLE INFORMATION [facility] Comment on above: Performed By: #### C ADAM #### [facility] [address] [place] [address] Dr. Aissatou Vásquez BCIDHD1 ANTIMICROBIAL RESISTANCE GENES [facility] Comment on above: Performed By: #### C ADAM #### [facility] [address] [place] [address] Dr. Aissatou Vásquez BCIDHD2 SEE BELOW [facility] Comment on above: Result Comment: Note : Antimicrobial resitance can occur via multiple mechanisms. A Not Detected result for the [employer] antomicrobial resistance gene assays does not indicate antimicrobial susceptibility. Subculturing is required for species identification and susceptibility testing of isolates. Performed By: #### C ADAM #### [facility] [address] [place] [address] Dr. Aissatou Vásquez BCIDHD3 Positive [facility] Comment on above: Performed By: #### C ADAM #### [facility] [address] [place] [address] Dr. Aissatou Vásquez BCIDHD4 Negative [facility] Comment on above: Performed By: #### C ADAM #### [facility] [address] [place] [address] Dr. Aissatou Vásquez BCIDHD5 YEAST Normal [facility] Comment on above: Performed By: #### C ADAM #### [facility] [address] [place] [address] Dr. Aissatou Vásquez Bottle Set: Set 2 [facility] Comment on above: Performed By: #### C ADAM #### [facility] [address] [place] [address] Dr. Aissatou Vásquez Bottle: Pediatric Normal [facility] Comment on above: Performed By: #### C ADAM #### [facility] [address] [place] [address] Dr. Aissatou Vásquez C. neoformans/gattii Not detected Normal NOT DETECTED [facility] Comment on above: Performed By: #### C ADAM #### [facility] [address] [place] [address] Dr. Aissatou Vásquez Soraya albicans Not detected Normal NOT DETECTED [facility] Comment on above: Performed By: #### C ADAM #### [facility] [address] [address] [address] Aissatou Vásquez Soraya auris Not detected Normal NOT DETECTED [facility] Comment on above: Performed By: #### C ADAM #### [facility] [address] [place] [address] Dr. Aissatou Vásquez Soraya glabrata Not detected Normal NOT DETECTED [facility] Comment on above: Performed By: #### C ADAM #### [facility] [address] [place] [address] Dr. Aissatou Vásquez Soraya Krusei Not detected Normal NOT DETECTED The [facility] Comment on above: Performed By: #### C ADAM #### [facility] [address] [place] [address] Dr. Aissatou Vásquez Soraya Parapsilosis Not detected Normal NOT DETECTED [facility] Comment on above: Performed By: #### C ADAM #### [facility] [address] [place] [address] Dr. Aissatou Vásquez Soraya Tropicalis Not detected Normal NOT DETECTED [facility] Comment on above: Performed By: #### C ADAM #### [facility] [address] [place] [address] Dr. Aissatou Vásquez CTX-M Resistant Gene Not detected Normal NOT DETECTED [facility] Comment on above: Performed By: #### C ADAM #### [facility] [address] [place] [address] Dr. Aissatou Vásquez E. Cloacae complex Not detected Normal NOT DETECTED [facility] Comment on above: Performed By: #### C ADAM #### [facility] [address] [place] [address] Dr. Aissatou Vásquez E. faecalis Not detected Normal NOT DETECTED The [facility] Comment on above: Performed By: #### C ADAM #### [facility] [address] [place] [address] Dr. Aissatou Vásquez E. faecium Not detected Normal NOT DETECTED The [facility] Comment on above: Performed By: #### C ADAM #### [facility] [address] [place] [address] Dr. Aissatou Vásquez Enterobacteriaceae Detected Critically abnormal NOT DETECTED [facility] Comment on above: Performed By: #### C ADAM #### [facility] [address] [place] [address] Dr. Aissatou Vásquez Escherichia coli Not detected Normal NOT DETECTED [facility] Comment on above: Performed By: #### C ADAM #### [facility] [address] [place] [address] Dr. Aissatou Vásquez H. influenzae Not detected Normal NOT DETECTED [facility] Comment on above: Performed By: #### C ADAM #### [facility] [address] [place] [address] Dr. Aissatou Vásquez IMP Resistant Gene Not detected Normal NOT DETECTED [facility] Comment on above: Performed By: #### C ADAM #### [facility] [address] [place] [address] Dr. Aissatou Vásquez K. oxytoca Not detected Normal NOT DETECTED [facility] Comment on above: Performed By: #### C ADAM #### [facility] [address] [place] [address] Dr. Aissatou Vásquez K. pneumoniae Not detected Normal NOT DETECTED [facility] Comment on above: Performed By: #### C ADAM #### [facility] [address] [place] [address] Dr. Aissatou Vásquez Klebsiella aerogenes Not detected Normal NOT DETECTED [facility] Comment on above: Performed By: #### C ADAM #### [facility] [address] [place] [address] Dr. Aissatou Vásquez KPC Resistant Gene Not detected Normal NOT DETECTED [facility] Comment on above: Performed By: #### C ADAM #### [facility] [address] [place] [address] Dr. Aissatou Vásquez List. monocytogenes Not detected Normal NOT DETECTED [facility] Comment on above: Performed By: #### C ADAM #### [facility] [address] [place] [address] Dr. Aissatou Vásquez Mcr-1 Resistant Gene Not Applicable Normal NOT DETECTE D [facility] Comment on above: Performed By: #### C ADAM #### [facility] [address] [place] [address] Dr. Aissatou Vásquez mecA/C Not Applicable Normal NOT DETECTED The [facility] Comment on above: Performed By: #### C ADAM #### [facility] [address] [place] [address] Dr. Aissatou Vásquez mecA/C MREJ Not Applicable Normal NOT DETECTED [facility] Comment on above: Performed By: #### C ADAM #### [facility] [address] [place] [address] Dr. Aissatou Vásquez N. meningitidis Not detected Normal NOT DETECTED [facility] Comment on above: Performed By: #### C ADAM #### [facility] [address] [place] [address] Dr. Aissatou Vásquez NDM Resistant Gene Not detected Normal NOT DETECTED [facility] Comment on above: Performed By: #### C ADAM #### [facility] [address] [place] [address] Dr. Aissatou Vásquez Oxa-48-like Not detected Normal NOT DETECTED [facility] Comment on above: Performed By: #### C ADAM #### [facility] [address] [place] [address] Dr. Aissatou Vásquez Proteus Not detected Normal NOT DETECTED [facility] Comment on above: Performed By: #### C ADAM #### [facility] [address] [place] [address] Dr. Aissatou Vásquez Pseud. aeruginosa Not detected Normal NOT DETECTED [facility] Comment on above: Performed By: #### C ADAM #### [facility] [address] [place] [address] Dr. Aissatou Vásquez S. maltophilia Not detected Normal NOT DETECTED The [facility] Comment on above: Performed By: #### C ADAM #### [facility] [address] [place] [address] Dr. Aissatou Vásquez Salmonella Not detected Normal NOT DETECTED [facility] Comment on above: Performed By: #### C ADAM #### [facility] [address] [address] [address] Aissatou Vásquez Seratia marcescens Not detected Normal NOT DETECTED [facility] Comment on above: Performed By: #### C ADAM #### [facility] [address] [place] [address] Dr. Aissatou Vásquez Site: IV Normal [facility] Comment on above: Performed By: #### C ADAM #### [facility] [address] [place] [address] Dr. Aissatou Vásquez Staph. aureus Not detected Normal NOT DETECTED [facility] Comment on above: Performed By: #### C ADAM #### [facility] [address] [place] [address] Dr. Aissatou Vásquez Staph. epidermidis Not detected Normal NOT DETECTED [facility] Comment on above: Performed By: #### C ADAM #### [facility] [address] [place] [address] Dr. Aissatou Vásquez Staph. lugdunensis Not detected Normal NOT DETECTED [facility] Comment on above: Performed By: #### C ADAM #### [facility] [address] [place] [address] Dr. Aissatou Vásquez Staphylococcus Not detected Normal NOT DETECTED The [facility] Comment on above: Performed By: #### C ADAM #### [facility] [address] [place] [address] Dr. Aissatou Vásquez Strep. agalactiae Not detected Normal NOT DETECTED [facility] Comment on above: Performed By: #### C ADAM #### [facility] [address] [place] [address] Dr. Aissatou Vásquez Strep. pneumoniae Not detected Normal NOT DETECTED [facility] Comment on above: Performed By: #### C ADAM #### [facility] [address] [place] [address] Dr. Aissatou Vásquez Strep. pyogenes Not detected Normal NOT DETECTED [facility] Comment on above: Performed By: #### C ADAM #### [facility] [address] [address] [address] Aissatou Vásquez Streptococcus Not detected Normal NOT DETECTED [facility] Comment on above: Performed By: #### C ADAM #### [facility] [address] [address] [address] Aissatou Vásquez Akila/B Resist. Gene Not Applicable Normal NOT DETECTED [facility] Comment on above: Performed By: #### C ADAM #### [facility] [address] [place] [address] Dr. Aissatou Vásquez VIM Resistant Gene Not detected Normal NOT DETECTED [facility] Comment on above: Performed By: #### C ADAM #### [facility] [address] [place] [address] Dr. Aissatou Vásquez CBC W MANUAL DIFFon 07-01-20 22 ATYPICAL LYMPH # Normal [facility] Comment on above: Performed By: #### C BCMAN ####[facility] [address] [place], [place] [address]Dr. Aissatou Vásquez ATYPICAL LYMPH % Normal [facility] Comment on above: Performed By: #### C BCMAN ####[facility] [address] [place], [place] [address]Dr. Aissatou Vásquez BAND # 0.4 103/ul Critically high 0.0-0.3 The [facility] Comment on above: Performed By: #### C BCMAN ####[facility] [address] [address]Dr. Sheylan Vásquez BAND % 3 % Normal 0-5 [facility] Comment on above: Performed By: #### C BCMAN ####[facility] [address] [address]Dr. Aissatou Vásquez BASOM # 0.00 103/ul Normal 0.00-0.10 [facility] Comment on above: Performed By: #### C BCMAN ####[facility] [address] [place], [place] [address]Dr. Aissatou Vásquez BASOM % 0.0 % Critically low 0.2-2.0 The [facility] Comment on above: Performed By: #### C BCMAN ####[facility] [address] [address]Dr. Aissatou Vásquez BLAST # Normal [facility] Comment on above: Performed By: #### C BCMAN ####[facility] [address] [id number]. Aissatou Vásquez BLAST % Normal [facility] Comment on above: Performed By: #### C BCMAN ####[facility] [address] [id number]. Aissatou Vásquez CORRECTED WBC Normal 4.0-11.0 The [facility] Comment on above: Performed By: #### C BCMAN ####[facility] [address] [place], [place] [address]Dr. Aissatou Vásquez EOS # 0.12 103/ul Normal 0.00-0.70 [facility] Comment on above: Performed By: #### C BCMAN ####[facility] [address] [address]Dr. Aissatou Vásquez EOS% 1.0 % Normal 0.9-7.0 [facility] Comment on above: Performed By: #### C BCMAN ####[facility] [address] [place], [place] [address]Dr. Aissatou Vásquez HCT 46.0 % Normal 42.0-54.0 [facility] Comment on above: Performed By: #### C BCMAN ####[facility] [address] [address]Dr. Aissatou Vásquez HGB 14.6 g/dl Normal 14.0-18.0 [facility] Comment on above: Performed By: #### C BCMAN ####[facility] [address] [place], [place] [address]Dr. Aissatou Vásquez LYMPHM # 0.62 103/ul Critically low 1.20-3.80 The [facility] Comment on above: Performed By: #### C BCMAN ####[facility] [address] [id number]. Aissatou Vásquez LYMPHM% 5.0 % Critically low 20.5-60.0 The [facility] Comment on above: Performed By: #### C ABUNDIO ####[facility] [address] [id number]. Aissatou Vásquez MCH 29.9 pg Normal 25.9-34.0 [facility] Comment on above: Performed By: #### C ABUNDIO ####[facility] [address] [id number]. Aissatou Vásquez MCHC 31.7 g/dl Normal 29.9-35.2 [facility] Comment on above: Performed By: #### C ABUNDIO ####[facility] [address] [place], [place] [address]Dr. Aissatou Vásquez MCV 94.1 fL Critically high 80.0-94.0 The [facility] Comment on above: Performed By: #### C ABUNDIO ####[facility] [address] [place], [place] [address]Dr. Aissatou Vásquez METAMYELOCYTE # Normal [facility] Comment on above: Performed By: #### C ABUNDIO ####[facility] [address] [place], [place] [address]Dr. Aissatou Vásquez METAMYELOCYTE % Normal [facility] Comment on above: Performed By: #### C ABUNDIO ####[facility] [address] [address]Dr. Aissatou Vásquez MONOM# 0.62 103/ul Normal 0.30-0.80 [facility] Comment on above: Performed By: #### C ABUNDIO ####[facility] [address] [id number]. Aissatou Vásquez MONOM% 5.0 % Normal 1.7-12.0 [facility] [facility] Comment on above: Performed By: #### C ABUNDIO ####[facility] [address] [place] [address]Dr. Aissatou Vásquez MPV 10.4 fL Normal 9.5-13.5 [facility] Comment on above: Performed By: #### C BCRITCHIE ####[facility] [address] [place], [place] [address]Tf. Aissatou Vásquez MYELOCYTE # Normal [facility] Comment on above: Performed By: #### C BCMAN ####[facility] [address] [place], [place] [address]Ac. Aissatou Vásquez MYELOCYTE % Normal [facility] Comment on above: Performed By: #### C BCMAN ####[facility] [address] [place], [place] [address]Gr. Aissatou Vásquez NRBC Normal [facility] Comment on above: Performed By: #### C ABUNDIO ####[facility] [address] [place] [id number]. Aissatou Vásquez PLT 171 103/ul Normal 150-450 [facility] Comment on above: Performed By: #### C ABUNDIO ####[facility] [address] [place] [id number]. Aissatou Vásquez RBC 4.89 106/ul Normal 4.70-6.10 [facility] Comment on above: Performed By: #### C BCRITCHIE ####[facility] [address] [place] [id number]. Aissatou Vásquez RDW 13.4 % Normal 11.0-15.0 [facility] Comment on above: Performed By: #### C BCRITCHIE ####[facility] [address] [place] [id number]. Aissatou Vásquez SEG # 10.66 103/ul Critically high 1.40-6.50 [facility] Comment on above: Performed By: #### C BCRITCHIE ####[facility] [address] [place], [place] [address]Ci. Aissatou Vásquez SEG % 86.0 % Critically high 43.0-75.0 [facility] Comment on above: Performed By: #### C BCRITCHIE ####[facility] [address] [place], [place] [address]Uw. Aissatou Vásquez WBC 12.4 103/ul Critically high 4.0-11.0 [facility] Comment on above: Performed By: #### C ABUNDIO ####[facility] [address] [place], [place] [address]WvDr. Aissatou Vásquez CPKon 07-01-2022 CK [Catalytic activity/Vol] 1646 U/L Critically high 39-308 [facility] Comment on above: Performed By: #### L IVER, BMP, HSTROPN #### [facility] [address] [place], [place] [address] [address] Vásquez [address] CSPINE WO CONon [...] KOKO ROMANO Date: 2022-07-01 19:22 Normal [facility] CT STROKE HEAD WOon 07-01-20 22 [...] BERNADETTE BEDOLLA Date: 2022-07-01 17:37 Normal [facility] CULTURE BLOODon 07-01-2022 Microscopic examination of blood, culture Culture Observations: NO GROWTH AT 5 DAYS. Normal [facility] Comment on above: Performed By: #### B LDCX1 ####[facility] [address] [place] [address]Dr. Aissatou Fahad Covid-[address])on 06-06 SARS-CoV-2 (COVID-19) RNA HALLE+probe Ql (Unsp spec) Not detected Normal NOT DETECTED [facility] Comment on above: Result Comment: When [...] for this test is supported by the [place] of Health and Human Service's declaration that [...] By: #### L CHANNINGER, BMP, HSTROPN #### [facility] [address] [place] [address] Dr. Aissatou Vásquez DRUG SCREEN RAPID (URINE)on 07-01-2022 AMP Negative Normal NEGATIVE [facility] Comment on above: Performed By: #### C ADAM #### [facility] [address] [place] [address] [address] Aissatou Vásquez BAR Negative Normal NEGATIVE [facility] Comment on above: Performed By: #### C ADAM #### [facility] [address] [place] [address] Dr. Aissatou Vásquez BUP Negative Normal NEGATIVE [facility] Comment on above: Performed By: #### C ADAM #### [facility] [address] [place] [address] Dr. Aissatou Vásquez BZO Negative Normal NEGATIVE [facility] Comment on above: Performed By: #### C ADAM #### [facility] [address] [place] [address] [address] Aissatou Vásquez MARYJANE Negative Normal NEGATIVE [facility] Comment on above: Performed By: #### C ADAM #### [facility] [address] [place] [address] Dr. Aissatou Vásquez CUT-OFFS SEE BELOW Normal [facility] Comment on above: Result Comment: AMP [...] ng/mL Performed By: #### C ADAM #### [facility] [address] [place] [address] Dr. Aissatou Vásquez DRUG CUT HEADER DRUG CLASS TEST SYSTEM CUT-OFF CONCENTRATIONS ARE FOLLOWS: Normal [facility] Comment on above: Performed By: #### C ADAM #### [facility] [address] [place] [address] Dr. Aissatou Vásquez mAMP Negative Normal NEGATIVE [facility] Comment on above: Performed By: #### C ADAM #### [facility] [address] [place] [address] [address] Aissatou Vásquez MTD Negative Normal NEGATIVE [facility] Comment on above: Performed By: #### C ADAM #### [facility] [address] [place] [address] Dr. Aissatou Vásquez OPI Negative Normal NEGATIVE [facility] Comment on above: Performed By: #### C ADAM #### [facility] [address] [place] [address] Dr. Aissatou Vásquez OXY Negative Normal NEGATIVE [facility] Comment on above: Performed By: #### C ADAM #### [facility] [address] [place] [address] [address] Aissatou Vásquez PCP Negative Normal NEGATIVE [facility] Comment on above: Performed By: #### C ADAM #### [facility] [address] [place] [address] Dr. Aissatou Vásquez PPX Negative Normal NEGATIVE [facility] Comment on above: Performed By: #### C ADAM #### [facility] [address] [place] [address] Dr. Aissatou Vásquez TCA Negative Normal NEGATIVE [facility] Comment on above: Performed By: #### C ADAM #### [facility] [address] [place] [address] Dr. Aissatou Vásquez THC Negative Normal NEGATIVE [facility] Comment on above: Performed By: #### C ADAM #### [facility] [address] [place] [address] Dr. Aissatou Vásquez ER URINE PROFILEon 12-27-202 2 Bilirubin Ql (U) Negative Normal NEGATIVE [facility] Comment on above: Performed By: #### C ADAM #### [facility] [address] [place] [address] Dr. Aissatou Vásquez Clarity (U) CLEAR Normal CLEAR [facility] Comment on above: Performed By: #### C ADAM #### [facility] [address] [place] [address] Dr. Aissatou Vásquez Color (U) YELLOW Normal YELLOW [facility] Comment on above: Performed By: #### C ADAM #### [facility] [address] [place] [address] Dr. Aissatou BECKWITH A micrscopic examination will be performed if indicated. Normal [facility] Comment on above: Performed By: #### C ADAM #### [facility] [address] [place] [address] Dr. Aissatou Vásquez Glucose Ql (U) Negative Normal NEGATIVE [facility] Comment on above: Performed By: #### C ADAM #### [facility] [address] [place] [address] Dr. Aissatou Vásquez Hemoglobin Ql (U) MODERATE Abnormal NEGATIVE [facility] Comment on above: Performed By: #### C ADAM #### [facility] [address] [place] [address] Dr. Aissatou Vásquez Ketones Ql (U) 15 mg/dl Abnormal NEGATIVE [facility] [place] Comment on above: Performed By: #### C ADAM #### [facility] [address] [place] [address] Dr. Aissatou Vásquez LEUKOCYTES Negative Normal NEGATIVE [facility] Comment on above: Performed By: #### C ADAM #### [facility] [address] [place] [address] Dr. Aissatou Vásquez Nitrite Ql (U) Negative Normal NEGATIVE [facility] Comment on above: Performed By: #### C ADAM #### [facility] [address] [place] [address] Dr. Aissatou Vásquez pH (U) 5.0 [pH] Normal 5-9 [facility] Comment on above: Performed By: #### C ADAM #### [facility] [address] [place] [address] Dr. Aissatou Vásquez SPEC GRAVITY 1.025 Normal 1.005-<=1.025 [facility] Comment on above: Performed By: #### C ADAM #### [facility] [address] [place] [address] Dr. Aissatou Vásquez UA PROTEIN TRACE Normal NEGATIVE/ TRACE [facility] Comment on above: Performed By: #### C ADAM #### [facility] [address] [place] [address] Dr. Aissatou Vásquez UR MICRO IND INDICATED Normal [facility] Comment on above: Performed By: #### C ADAM #### [facility] [address] [place] [address] Dr. Aissatou Vásquez Urobilinogen Qn (U) 0.2 {Ilene'U}/dL Normal 0.2 - 1. 0 [facility] Comment on above: Performed By: #### C ADAM #### [facility] [address] [place] [address] Dr. Aissatou Vásquez LIVER PROFILEon 07-01-2022 Albumin [Mass/Vol] 3.7 g/dL Normal 3.4-5.0 [facility] Comment on above: Performed By: #### L IVER, BMP, HSTROPN #### [facility] [address] [place] [address] Dr. Aissatou Vásquez Albumin/Globulin [Mass ratio] 0.9 {ratio} Normal [facility] Comment on above: Performed By: #### L IVER, BMP, HSTROPN #### [facility] [address] [place] [address] Dr. Aissatou Vásquez ALP [Catalytic activity/Vol] 143 U/L Critically high 46-116 [facility] Comment on above: Performed By: #### L IVER, BMP, HSTROPN #### [facility] [address] [place] [address] Dr. Aissatou Vásquez ALT [Catalytic activity/Vol] 56 U/L Normal 16-63 [facility] Comment on above: Performed By: #### L IVER, BMP, HSTROPN #### [facility] [address] [place] [address] [address] Aissatou Vásquez AST [Catalytic activity/Vol] 87 U/L Critically high 15-37 [facility] Comment on above: Performed By: #### L IVER, BMP, HSTROPN #### [facility] [address] [place] [address] Dr. Aissatou Vásquez BILI, CONJUGATED 0.2 mg/dL Normal 0.0-0.2 [facility] Comment on above: Performed By: #### L IVER, BMP, HSTROPN #### [facility] [address] [place] [address] Dr. Aissatou Vásquez Bilirubin [Mass/Vol] 0.6 mg/dL Normal 0.2-1.0 [facility] Comment on above: Performed By: #### L IVER, BMP, HSTROPN #### [facility] [address] [place] [address] Dr. Aissatou Vásquez Globulin (S) [Mass/Vol] 3.9 g/dL Normal [facility] Comment on above: Performed By: #### L IVER, BMP, HSTROPN #### [facility] [address] [place] [address] Dr. Aissatou Vásquez Protein [Mass/Vol] 7.6 g/dL Normal 6.4-8.2 [facility] Comment on above: Performed By: #### L IVER, BMP, HSTROPN #### [facility] [address] [place] [address] Dr. Aissatou Vásquez MYOGLOBINon 07-01-2022 SARAH 2042 ng/mL Critically high 16-96 [facility] Comment on above: Performed By: #### L IVER, BMP, HSTROPN #### [facility] [address] [place] [address] Dr. Aissatou Vásquez PROF CHEM 8 (BAS METB)on Anion gap [Moles/Vol] 18.5 mmol/L Normal [facility] Comment on above: Performed By: #### L IVER, BMP, HSTROPN #### [facility] [address] [place] [address] [address] Aissatou Vásquez Calcium [Mass/Vol] 9.8 mg/dL Normal 8.5-10.1 [facility] Comment on above: Performed By: #### L IVER, BMP, HSTROPN #### [facility] [address] [place] [address] [address] Aissatou Vásquez Chloride [Moles/Vol] 104 mmol/L Normal 98-107 [facility] Comment on above: Performed By: #### L IVER, BMP, HSTROPN #### [facility] [address] [place] [address] Dr. Aissatou Vásquez CO2 [Moles/Vol] 24.3 mmol/L Normal 21.0-32.0 [facility] Comment on above: Performed By: #### L IVER, BMP, HSTROPN #### [facility] [address] [place] [address] [address] Aissatou Vásquez Creatinine [Mass/Vol] 1.74 mg/dL Critically high 0.70-1.30 [facility] Comment on above: Performed By: #### L IVER, BMP, HSTROPN #### [facility] [address] [place] [address] Dr. Aissatou Vásquez EGFR-AF BOTSWANAN 46 mL/min/1.73m2 Critically low >=60 [facility] Comment on above: Performed By: #### L IVER, BMP, HSTROPN #### [facility] [address] [place] [address] Dr. Aissatou Vásquez EGFR-NON AF BOTSWANAN 38 mL/min/1.73m2 Critically low >=60 [facility] Comment on above: Performed By: #### L IVER, BMP, HSTROPN #### [facility] [address] [place] [address] Dr. Aissatou Vásquez Glucose [Mass/Vol] 115 mg/dL Critically high 74-106 [facility] Comment on above: Performed By: #### L IVER, BMP, HSTROPN #### [facility] [address] [place] [address] [address] Aissatou Vásquez Potassium [Moles/Vol] 4.8 mmol/L Normal 3.5-5.1 [facility] Comment on above: Performed By: #### L IVER, BMP, HSTROPN #### [facility] [address] [place] [address] [address] Aissatou Vásquez Sodium [Moles/Vol] 142 mmol/L Normal 136-145 [facility] Comment on above: Performed By: #### L IVER, BMP, HSTROPN #### [facility] [address] [place] [address] [address] Aissatou Vásquez Urea nitrogen [Mass/Vol] 54.0 mg/dL Critically high 7.0-18.0 [facility] Comment on above: Performed By: #### L IVER, BMP, HSTROPN #### [facility] [address] [place] [address] [address] Aissatou Vásquez Urea nitrogen/Creatinine [Mass ratio] 31.0 mg/mg Normal [facility] Comment on above: Performed By: #### L IVER, BMP, HSTROPN #### [facility] [address] [place] [address] [address] Aissatou Vásquez TROPONIN, HIGH SENSITIVITYon 07-01-2022 HSTROP 102.3 pg/mL Critically high 4.0-76.1 [facility] Comment on above: Result Comment: CUT- OFF POINTS HAVE BEEN ESTABLISHED BASED ON THE FOURTH UNIVERSAL DEFINITIONS OF MYOCARDIAL INFARCTION. THE UPPER REFERENCE LIMIT (URL) OF TROPONIN, DEFINED THE 99TH PERCENTILE OF cTnI DISTRIBUTION IN A REFERENCE POPULATION, HAS BEEN CONFIRMED THE DECISION THRESHOLD FOR RI DIAGNOSIS. Performed By: #### H STROPN ####[facility] [address] [place] [address]Dr. Aissatou Vásquez HSTROP 132.4 pg/mL Critically high 4.0-76.1 [facility] Comment on above: Result Comment: CUT- OFF POINTS HAVE BEEN ESTABLISHED BASED ON THE FOURTH UNIVERSAL DEFINITIONS OF MYOCARDIAL INFARCTION. THE UPPER REFERENCE LIMIT (URL) OF TROPONIN, DEFINED THE 99TH PERCENTILE OF cTnI DISTRIBUTION IN A REFERENCE POPULATION, HAS BEEN CONFIRMED THE DECISION THRESHOLD FOR RI DIAGNOSIS. Performed By: #### L DHARA WAITE, HSTROPN #### [facility] [address] [place] [address] Dr. Aissatou Vásquez TSHon 07-01-2022 TSH 7.840 uIU/mL Critically high 0.358-3.740 The [facility] Comment on above: Performed By: #### L DHARA WAITE, HSTROPN #### [facility] [address] [place] [address] Dr. Aissatou Vásquez URINE MICROSCOPIC ONLYon BACTERIA NONE SEEN Normal NONE SEEN [facility] Comment on above: Performed By: #### C ADAM #### [facility] [address] [place] [address] Dr. Aissatou Vásquez Bacteria identified Cx Nom (U) NOT INDICATED Normal [facility] Comment on above: Performed By: #### C ADAM #### [facility] [address] [place] [address] Dr. Aissatou Vásquez CAST NONE SEEN Normal NONE SEEN [facility] Comment on above: Performed By: #### C ADAM #### [facility] [address] [place] [address] Dr. Aissatou Vásquez Crystals LM Nom (Urine sed) NONE SEEN Normal NONE SEEN [facility] Comment on above: Performed By: #### C ADAM #### [facility] [address] [place] [address] Dr. Aissatou Vásquez Epithelial cells LM Ql (Urine sed) RARE Normal NONE SEEN /RARE [facility] Comment on above: Performed By: #### C ADAM #### [facility] [address] [place] [address] Dr. Aissatou Vásquez MUCOUS TRACE Abnormal NONE SEEN [facility] Comment on above: Performed By: #### C ADAM #### [facility] [address] [place] [address] Dr. Aissatou Vásquez RBC 2-5 Abnormal 0-2 [facility] Comment on above: Performed By: #### C ADAM #### [facility] [address] [place] [address] Dr. Aissatou Vásquez WBC 2-5 Abnormal NONE SEEN [facility] Comment on above: Performed By: #### C ADAM #### [facility] [address] [place] [address] Dr. Aissatou Vásquez XR CHEST 1 Von [...] Jhony TOTH Date: 2022-07-01 18:01 Normal [facility] AMMONIAon 06-05-2022 Ammonia (P) [Mass/Vol] ug/dL Critically low [facility] Comment on above: Performed By: #### L IVER, BMP, HSTROPN #### [facility] [address] [place] [address] Dr. Aissatou Vásquez BNPon 06-05-2022 Natriuretic peptide B (Bld) [Mass/Vol] 672.0 pg/mL Normal <=1,800.0 [facility] Comment on above: Performed By: #### T SH, CMP, FT3, BNP, T4, LIPID #### [facility] [address] [place] [address] [address] Aissatou Vásquez CBC AUTO DIFFon 06-05-2022 BASO # 0.0 103/ul Normal 0.0-0.1 [facility] Comment on above: Performed By: #### C ADAM #### [facility] [address] [place] [address] Dr. Aissatou Vásquez Basophils/100 WBC (Bld) 0.6 % Normal 0.2-2.0 [facility] Comment on above: Performed By: #### C ADAM #### [facility] [address] [place] [address] Dr. Aissatou Vásquez EO # 0.0 103/ul Normal 0.0-0.7 [facility] Comment on above: Performed By: #### C ADAM #### [facility] [address] [place] [address] Dr. Aissatou Vásquez Eosinophils/100 WBC (Bld) 0.6 % Critically low 0.9-7.0 [facility] Comment on above: Performed By: #### C ADAM #### [facility] [address] [place] [address] Dr. Aissatou Vásquez Erythrocyte distribution width (RBC) [Ratio] 13.7 % Normal 11.0-15.0 [facility] Comment on above: Performed By: #### C ADAM #### [facility] [address] [place] [address] Dr. Aissatou Vásquez Hematocrit (Bld) [Volume fraction] 40.7 % Critically low 42.0-54.0 [facility] Comment on above: Performed By: #### C ADAM #### [facility] [address] [place] [address] Dr. Aissatou Vásquez Hemoglobin (Bld) [Mass/Vol] 12.8 g/dL Critically low 14.0-18.0 [facility] Comment on above: Performed By: #### C ADAM #### [facility] [address] [place] [address] Dr. Aissatou Vásquez IG # 0.01 10e3/ul Normal 0.00-0.03 [facility] Comment on above: Performed By: #### C ADAM #### [facility] [address] [place] [address] Dr. Aissatou Vásquez IG % 0.2 % Normal 0.0-0.5 [facility] Comment on above: Performed By: #### C ADAM #### [facility] [address] [place] [address] Dr. Aissatou Vásquez LYMPH # 1.7 103/ul Normal 1.2-3.8 [facility] Comment on above: Performed By: #### C ADAM #### [facility] [address] [place] [address] Dr. Aissatou Vásquez Lymphocytes/100 WBC (Bld) 27.5 % Normal 20.5-60.0 [facility] Comment on above: Performed By: #### C ADAM #### [facility] [address] [place] [address] Dr. Aissatou Vásquez MANUAL DIFF REQ NO Normal [facility] Comment on above: Performed By: #### C ADAM #### [facility] [address] [place] [address] Dr. Aissatou Vásquez MCH (RBC) [Entitic mass] 30.3 pg Normal 25.9-34.0 [facility] Comment on above: Performed By: #### C ADAM #### [facility] [address] [place] [address] Dr. Aissatou Vásquez MCHC (RBC) [Mass/Vol] 31.4 g/dL Normal 29.9-35.2 [facility] Comment on above: Performed By: #### C ADAM #### [facility] [address] [place] [address] Dr. Aissatou Vásquez MCV (RBC) [Entitic vol] 96.2 fL Critically high 80.0-94.0 [facility] Comment on above: Performed By: #### C ADAM #### [facility] [address] [place] [address] Dr. Aissatou Vásquez MONO # 0.6 103/ul Normal 0.3-0.8 [facility] Comment on above: Performed By: #### C ADAM #### [facility] [address] [place] [address] Dr. Aissatou Vásquez Monocytes/100 WBC (Bld) 9.9 % Normal 1.7-12.0 [facility] Comment on above: Performed By: #### C ADAM #### [facility] [address] [place] [address] Dr. Aissatou Vásquez NEUT # 3.8 103/ul Normal 1.4-6.5 [facility] Comment on above: Performed By: #### C ADAM #### [facility] [address] [place] [address] [address] Aissatou Vásquze Neutrophils/100 WBC (Bld) 61.2 % Normal 43.0-75.0 [facility] Comment on above: Performed By: #### C ADAM #### [facility] [address] [place] [address] Dr. Aissatou Vásquez Platelet mean volume (Bld) [Entitic vol] 9.3 fL Critically low 9.5-13.5 [facility] Comment on above: Performed By: #### C ADAM #### [facility] [address] [place] [address] Dr. Aissatou Vásquez PLT 218 103/ul Normal 150-450 [facility] Comment on above: Performed By: #### C ADAM #### [facility] [address] [place] [address] Dr. Aissatou Vásquez RBC 4.23 106/ul Critically low 4.70-6.10 [facility] Comment on above: Performed By: #### C ADAM #### [facility] [address] [place] [address] Dr. Aissatou Vásquez WBC 6.3 103/ul Normal 4.0-11.0 [facility] Comment on above: Performed By: #### C ADAM #### [facility] [address] [place] [address] Dr. Aissatou Vásquez FREE T3on 06-05-2022 FREE T3 1.80 pg/mlL Critically low 2.18-3.98 [facility] Comment on above: Performed By: #### T SH, CMP, FT3, BNP, T4, LIPID #### [facility] [address] [place] [address] Dr. Aissatou Vásquez GLYCOHEMOGLOBIN A1Con 2021 ADA RECOMMENDATION SEE BELOW Normal The [facility] Comment on above: Result Comment: ADA RECOMMENDED LIMIT 4.0 - 6.0 ADA THERAPEUTIC TARGET < 7.0 ACTION SUGGESTED > 7.0 Performed By: #### L IVER, BMP, HSTROPN #### [facility] [address] [place] [address] Dr. Aissatou Vásquez Glucose [Mass/Vol] 117 mg/dL Normal [facility] Comment on above: Performed By: #### L IVER, BMP, HSTROPN #### [facility] [address] [address] [address] Aissatou Vásquez HbA1c (Bld) [Mass fraction] 5.7 % Normal 4.5-6.2 [facility] Comment on above: Performed By: #### L IVER, BMP, HSTROPN #### [facility] [address] [address] [address] Aissatou Vásquez IRONon 06-05-2022 Iron [Mass/Vol] 76.0 ug/dL Normal 65.0-175.0 [facility] Comment on above: Performed By: #### P SASC, VITAD, IRON, B12FOL ####[facility] [address] [address]DrBud Vásquez LIPID PROFILEon 06-05-2022 CHOL-HDL RATIO NORM SEE BELOW Normal [facility] Comment on above: Result Comment: 3.3 - 4.4 LOW RISK 4.4 - 7.1 AVERAGE RISK 7.1 - 11.0 MODERATE RISK >11.0 HIGH RISK Performed By: #### T SH, CMP, FT3, BNP, T4, LIPID ####[facility] [address] [address]DrBud Vásquez Cholesterol [Mass/Vol] 133 mg/dL Normal <=200 [facility] Comment on above: Performed By: #### T SH, CMP, FT3, BNP, T4, LIPID ####[facility] [address] [address]Dr. Aissatou Vásquez Cholesterol in HDL [Mass/Vol] 79 mg/dL Critically high 40-60 [facility] Comment on above: Performed By: #### T SH, CMP, FT3, BNP, T4, LIPID ####[facility] [address] [address]DrBud Vásquez Cholesterol in LDL [Mass/Vol] 43.6 mg/dL Normal [facility] Comment on above: Performed By: #### T SH, CMP, FT3, BNP, T4, LIPID ####[facility] [address] [place], [place] [address]Hl. Aissatou Vásquez Cholesterol.total/Cho lesterol in HDL [Mass ratio] 1.7 {ratio} Normal [facility] Comment on above: Performed By: #### T SH, CMP, FT3, BNP, T4, LIPID ####[facility] [address] [place], [place] [address]Jm. Aissatou Vásquez HDL NORMAL > or = 60 mg/dl - LO W CARDIOVASCULAR RISK <40 mg/dl - HIGH CARDIOVASCULAR RISK Normal [facility] Comment on above: Performed By: #### T SH, CMP, FT3, BNP, T4, LIPID ####[facility] [address] [id number]. Aissatou Vásquez LDL CALC NORMAL SEE BELOW Normal [facility] Comment on above: Result Comment: <100 mg/dl OPTIMAL 100 - 129 mg/dl NEAR OR ABOVE OPTIMAL 130 - 159 mg/dl BORDERLINE HIGH 160 - 189 mg/dl HIGH >190 mg/dl VERY HIGH Performed By: #### T SH, CMP, FT3, BNP, T4, LIPID ####[facility] [address] [id number]. Aissatou Vásquez Triglyceride [Mass/Vol] 52 mg/dL Normal <=150 [facility] Comment on above: Performed By: #### T SH, CMP, FT3, BNP, T4, LIPID ####[facility] [address] [id number]. Aissatou Vásquez VLDL CALC 10.4 mg/dL Normal [facility] Comment on above: Performed By: #### T SH, CMP, FT3, BNP, T4, LIPID ####[facility] [address] [id number]. Aissatou Vásquez PROF 14(COMP METB)on 022 Albumin [Mass/Vol] 4.0 g/dL Normal 3.4-5.0 [facility] Comment on above: Performed By: #### T SH, CMP, FT3, BNP, T4, LIPID ####[facility] [address] [address]Dr. Aissatou Vásquez Albumin/Globulin [Mass ratio] 1.1 {ratio} Normal [facility] Comment on above: Performed By: #### T SH, CMP, FT3, BNP, T4, LIPID ####[facility] [address] [address]Dr. Aissatou Vásquez ALP [Catalytic activity/Vol] 137 U/L Critically high 46-116 [facility] Comment on above: Performed By: #### T SH, CMP, FT3, BNP, T4, LIPID ####[facility] [address] [address]Dr. Aissatou Vásquez ALT [Catalytic activity/Vol] 18 U/L Normal 16-63 [facility] Comment on above: Performed By: #### T SH, CMP, FT3, BNP, T4, LIPID ####[facility] [address] [address]Dr. Sheysarah Vásquez Anion gap [Moles/Vol] 11.1 mmol/L Normal [facility] Comment on above: Performed By: #### T SH, CMP, FT3, BNP, T4, LIPID ####[facility] [address] [address]Dr. Aissatou Vásquez AST [Catalytic activity/Vol] 9 U/L Critically low 15-37 [facility] Comment on above: Performed By: #### T SH, CMP, FT3, BNP, T4, LIPID ####[facility] [address] [address]Dr. Aissatou Vásquez Bilirubin [Mass/Vol] 0.3 mg/dL Normal 0.2-1.0 [facility] Comment on above: Performed By: #### T SH, CMP, FT3, BNP, T4, LIPID ####[facility] [address] [place], [place] [address]Dr. Sheysarah Vásquez Calcium [Mass/Vol] 9.4 mg/dL Normal 8.5-10.1 [facility] Comment on above: Performed By: #### T SH, CMP, FT3, BNP, T4, LIPID ####[facility] [address] [address]Dr. Aissatou Vásquez Chloride [Moles/Vol] 102 mmol/L Normal 98-107 [facility] Comment on above: Performed By: #### T SH, CMP, FT3, BNP, T4, LIPID ####[facility] [address] [address]Dr. Aissatou Vásquez CO2 [Moles/Vol] 29.7 mmol/L Normal 21.0-32.0 [facility] Comment on above: Performed By: #### T SH, CMP, FT3, BNP, T4, LIPID ####[facility] [address] [place], [place] [address]Dr. Aissatou Vásquez Creatinine [Mass/Vol] 1.62 mg/dL Critically high 0.70-1.30 [facility] Comment on above: Performed By: #### T SH, CMP, FT3, BNP, T4, LIPID ####[facility] [address] [place], [place] [address]Dr. Aissatou Vásquez EGFR-AF BOTSWANAN 50 mL/min/1.73m2 Critically low >=60 [facility] Comment on above: Performed By: #### T SH, CMP, FT3, BNP, T4, LIPID ####[facility] [address] [place], [place] [address]Dr. Aissatou Vásquez EGFR-NON AF BOTSWANAN 41 mL/min/1.73m2 Critically low >=60 [facility] Comment on above: Performed By: #### T SH, CMP, FT3, BNP, T4, LIPID ####[facility] [address] [place], [place] [address]Dr. Aissatou Vásquez Globulin (S) [Mass/Vol] 3.8 g/dL Normal [facility] Comment on above: Performed By: #### T SH, CMP, FT3, BNP, T4, LIPID ####[facility] [address] [place], [place] [address]Dr. Aissatou Vásquez Glucose [Mass/Vol] 86 mg/dL Normal 74-106 The [facility] Comment on above: Performed By: #### T SH, CMP, FT3, BNP, T4, LIPID ####[facility] [address] [address]Dr. Aissatou Vásquez Potassium [Moles/Vol] 4.8 mmol/L Normal 3.5-5.1 [facility] Comment on above: Performed By: #### T SH, CMP, FT3, BNP, T4, LIPID ####[facility] [address] [address]Dr. Aissatou Vásquez Protein [Mass/Vol] 7.8 g/dL Normal 6.4-8.2 The [facility] Comment on above: Performed By: #### T SH, CMP, FT3, BNP, T4, LIPID ####[facility] [address] [address]Dr. Aissatou Vásquez Sodium [Moles/Vol] 138 mmol/L Normal 136-145 The [facility] Comment on above: Performed By: #### T SH, CMP, FT3, BNP, T4, LIPID ####[facility] [address] [address]Dr. Aissatou Vásquez Urea nitrogen [Mass/Vol] 41.0 mg/dL Critically high 7.0-18.0 [facility] Comment on above: Performed By: #### T SH, CMP, FT3, BNP, T4, LIPID ####[facility] [address] [address]Dr. Aissatou Vásquez Urea nitrogen/Creatinine [Mass ratio] 25.3 mg/mg Normal [facility] Comment on above: Performed By: #### T SH, CMP, FT3, BNP, T4, LIPID ####[facility] [address] [address]Dr. Aissatou Vásquez T4on 06-05-2022 T4 [Mass/Vol] 9.70 ug/dL Normal 4.50-12.10 [facility] Comment on above: Performed By: #### T SH, CMP, FT3, BNP, T4, LIPID #### [facility] [address] [address] [address] Aissatou Vásquez TSHon 06-05-2022 TSH 2.525 uIU/mL Normal 0.358-3.740 [facility] Comment on above: Performed By: #### T SH, CMP, FT3, BNP, T4, LIPID ####[facility] [address] [id number]. Aissatou Vásquez VIT B12 AND FOLATEon 022 Cobalamin (Vitamin B12) [Mass/Vol] 1004.0 pg/mL Critically high 193.0-986.0 [facility] Comment on above: Performed By: #### P SASC, VITAD, IRON, B12FOL ####[facility] [address] [id number]. Aissatou Vásquez FOLATE 6.10 ng/mL Critically low 8.60-58.90 [facility] Comment on above: Performed By: #### P SASC, VITAD, IRON, B12FOL ####[facility] [address] [address]Dr. Aissatou Vásquez VITAMIN D 25 OHon 06-05-2022 VIT D 25-OH 31.8 ng/mL Normal [facility] Comment on above: Performed By: #### P SASC, VITAD, IRON, B12FOL ####[facility] [address] [address]Dr. Aissatou Vásquez VIT D RANGES SEE BELOW Normal [facility] Comment on above: Result Comment: <20 ng/mL Vit D deficient 20 - <30 ng/mL Vit D insufficient 30 - 100 ng/mL Vit D sufficient >100 ng/mL Potential Toxicity Performed By: #### P SASC, VITAD, IRON, B12FOL ####[facility] [address] [id number]. Aissatou Vásquez Coding Summary.on 01-23-2017 Coding Summary. CODING DATE: 01/23/[address] [facility] STATUS: Home (Routine DC) PAYOR: Medicare [...] [place] Date Saved: 01/23/2017 10:07 am Normal [facility] Creatinineon 01-22-2017 Creatinine 1.0 mg/dL Normal 0.5-1.3 [facility] Comment on above: Performed By: #### 2 [id number], [id number] ####[facility] [address] [place] [address] eGFRon 01-22-2017 eGFR (black) mL/min/{1.73_m2} Normal >=59 [facility] Comment on above: Order Comment: Order added by Discern Expert. Result Comment: eGFR is race adjusted. AA=. Performed By: #### 2 [id number], [id number] ####[address] [place] [address] eGFR (non-black) mL/min/{1.73_m2} Normal >=59 [facility] Comment on above: Order Comment: Order added by Discern Expert. Result Comment: Camera Storage Clerk matt kidney disease could be indicated at eGFR's of less than 60 mL/min/1.73m2. Kidney failure is indicated at less than 15 mL/min/1.73m2. Performed By: #### 2 [id number], [id number] ####[facility] [address] [place] [address] Vital Signs Date Time Vital Sign Value Performing Clinician Luci jacob 03-23-2023 13:55-0400 Diastolic blood pressure 68 mm[Hg] Jodi Banerjee DO Work Phone: [facility] 03-23-2023 13:55-0400 Heart rate 51 /min Jodi Banerjee DO Work Phone: [facility] 03-23-2023 13:55-0400 Systolic blood pressure 151 mm[Hg] Jodi Banerjee DO Work Phone: [facility] 08-27-2022 13:12-0500 Diastolic blood pressure 70 mm[Hg] Jodi Banerjee DO Work Phone: [facility] 08-27-2022 13:120500 Heart rate 69 /min Gonormanfrantz Adameaure DO Work Phone: [facility] 08-27-2022 13:12-0500 Systolic blood pressure 156 mm[Hg] Jodi Banerjee DO Work Phone: [facility] Encounters Encounter Date Encounter Type Care Provider Facility Start: 08-11-2023 End: 08-12-2023 ambulatory PIPE HOPKINS [facility] Start: 07-23-2023 End: 07-23-2023 ambulatory AMANDA IRBY Not Available Start: 06-24-2023 End: 06-24-2023 ambulatory [facility] Start: 03-23-2023 End: 03-23-2023 ambulatory JODI BANERJEE Facility:[facility] Start: 03-23-2023 End: 03-23-2023 Patient encounter procedure Jodi Banerjee DO Work Phone: Neurology Comment on above: Altered mental statu s, unspecified altered mental status type (Primary Dx); Memory loss Start: 03-23-2023 Telephone encounter Rudi Banerjee DO Work Phone: Neurology Start: 12-25-2022 End: 12-26-2022 ambulatory [facility] Start: 10-27-2022 End: 10-28-[address] PIPE HOPKINS . Facility:[facility] Start: 09-24-2022 End: 09-24-[address] PIPE HOPKINS . Facility: Start: 09-22-2022 End: 09-22-2022 ambulatory [facility] Start: 08-27-2022 End: 08-28-2022 ambulatory PIPE HOPKINS Facility:[facility] Start: 08-27-2022 End: 08-27-2022 Patient encounter [...] Start: 06-25-2017 End: 06-26-2017 Ambulatory DEFAULT PHYSICIAN Facility:[facility] Start: 01-22-2017 End: 01-23-2017 Ambulatory SHONDA ALTAMIRANO [facility] Start: 05-27-2011 Patient encounter status Jodi Banerjee DO Work Phone: [facility] Work Phone: Procedures Date Procedure Procedure Detail Performing Clinician Start: 06-05-[address] ORTIZ HOPKINS . Comment on above: Performed By: #### P SASC, VITAD, IRON, B12FOL ####[facility] [address] [place], [place] [address]RqBud Vásquez Start: 02-20-2020 History of coronary artery bypass grafting S/P CABG (coronary artery bypass graft), PARRA to the LAD, SVG to D1, SVG to OM1, SVG to OM 2, inverted Y grafted PLV and posterior descending artery. Jodi Banerjee DO Work Phone: Plan of Treatment Date Care Activity Detail Author Start: 03-06-2023 Influenza vaccination Influenza Vacc ine (#1) [facility] Start: 08-27-2022 End: 10-27-2022 25-hydroxyvitamin D3 [Mass/volume] in Serum or Plasma [facility] Work Phone: Comment on above: Expected: 08/27/2022 , Expires: 10/27/2022 Start: 08-27-2022 End: 10-27-2022 SYPHILIS TOTAL W/REFLEX [facility] Work Phone: Comment on above: Expected: 08/27/2022 , Expires: 10/27/2022 Start: 07-06-2022 ADVANCE DIRECTIVE DISCUSSION ADVANCE DIRECTIVE DISCUSSION [facility] Start: 07-06-2022 DEPRESSION ASSESSMENT DEPRESSION ASS ESSMENT [facility] Start: 03-06-2022 Influenza vaccination INFLUENZA (#1) [facility] Start: 12-17-2019 DIABETES SCREEN [facility] Start: 12-17-2019 Diabetes Screening Diabetes Screenin g [facility] Start: 05-21-2012 Hepatitis B surface antibody level LDL CHOLESTEROL [facility] Start: 2003 Pneumococcal Vaccine : 65+ (1 - PCV) Pneumococcal Vaccine: 65+ (1 - PCV) [facility] Start: 2003 PNEUMOCOCCAL: 65+ (1 - PCV) PNEUMOCOCCAL: 65+ (1 - PCV) [facility] Start: 1988 SHINGRIX VACCINE (1 of 2) SHINGRIX VACCINE (1 of 2) [facility] Start: 1957 Urine microalbumin profile [facility] Start: 02-18-1939 COVID-19 VACCINE (#1) COVID-19 VACCI NE (#1) [facility] [place] Immunizations Immunization Date Immunization Notes Care Provider Jewell molina 06-18-2017 influenza virus vaccine, unspecified formulation Jodi Banerjee DO Work Phone: [facility] Payers Date Payer Category Payer Medicare [id number] 2016 Private Health Insurance [facility] AARP SUPPLEMENT [id number] 2016-Present [phone] [address] [place] [address] Indemnity [id number] 2003 Medicare MEDICARE MEDICAR E A AND B [id number] 2003-Present [phone] [address] [address] [place] [address] Medicare [id number] 1959 Medicaid [id number] 1959 Medicare [id number] 1959 Unknown [id number] 1938 Unknown [id number]. 593 1938 Unknown [id number] [id number]. 593 1938 Unknown [id number] [id number]. 593 1938 Unknown [id number] [id number]. 593 1938 Unknown [id number] [id number]. 593 1938 Unknown [id number] [id number]. 593 1938 Unknown [id number] [id number]. 593 1938 Unknown [id number] [id number]. 593 1938 Unknown [id number] [id number]. 1259 1938 Unknown [id number]. 1286 Unknown Social History Date Type Detail Facility Start: 08-27-2022 Tobacco smoking stat us [facility] Ex-smoker [facility] History of tobacco use Current smoker [facility] History of tobacco use Cigarette Smoker [facility] Start: 08-27-2022 End: 03-23-2023 Cigarettes smoked current (pack per day) - Reported 1 [facility] Start: 08-27-2022 Tobacco use and exposure Vincent workman smokeless tobacco user [facility] End: 06-02-1971 History of tobacco use User of smokeless tobacco [facility] Start: 08-27-2022 End: 03-23-2023 Alcohol intake Current drinker of alcohol (finding) [facility] Start: 08-27-2022 Tobacco Comment quit 40 yrs ago [facility] Start: 05-21-2011 Alcohol Comment He drinks 4 gl asses of red wine weekly [facility] Start: 1940 Sex Assigned At Not on file C [facility] Start: 03-23-2023 Tobacco use panel [facility] National Score (1-10 0), lower number is lower risk 52 [facility] Clinical Notes 05-28-2011 to 06-24-2023 Telephone Encounter - Terri Santos - 03/23/2023 3:27 PM EDTPatient Jodi Vernon, - 03/23/2023 1:46 PM EDTChgino Banerjee, - 08/27/2022 1:12 PM EST Note Date & Type Note Facility 06-24-2023 Note [place] Cardiology - [facility] Subjective Leanna Nelson is a 82 y.o. year old male patient being seen for 6 mo follow up CAD, hypertension, chronic diastolic heart failure, and carotid artery stenosis. Had routine labs in Mar 2023. Doing well from cardiac standpoint. No recurrent syncope. Patient Active Problem List Diagnosis Chronic diastolic heart failure (CMS/HCC) PAC (premature atrial contraction) Coronary artery disease involving [facility] coronary artery of [facility] heart without angina pectoris Hx of CABG [...] , Rfl: multivitamin (more content not included)... [facility] 03-23-2023 Note HNO ID: [id number] Author: Jodi Banerjee, DO Service: ? Author Type: Physician Type: Progress Notes Filed: 03/23/2023 2:41 PM Note Text: [facility] [place] Follow-up visit March 23, 2023 HPI: Overall [...] encounter he has moved and low lives [facility]. He states he does not [...] mainly his brother. He has seen by silk blocker in 01/2023 with suggestion that he get a hearing aide but he refuses. After his last encounter he has followed up with cardiology concerning his heart rate that was auscultated on last encounter. They checked his heart rhythm and thought it was appropriate. This was as via physician in [place]. They deny other changes to his health and/or medications except for the above since our last encounter. PAST MEDICAL HISTORY Diagnosis Date Arthritis Carotid stenosis Coronary artery disease Coronary atherosclerosis of unspecified type of vessel, [facility] or graft 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 Dyslipidemia Hypertension Hypertension Hypothyroid Lumbar disc disease Unspecified hypothyroidism Hypothyroidism PAST SURGICAL HISTORY Procedure Laterality Date PAST SURGICAL HISTORY OF CABG times 6 left internal thoracic artery to the gvn-us-xdxhox left anterior descending artery, reverse saphenous vein [...] tablet Take 5 (more content not included)... [facility] 03-23-2023 Miscellaneous Notes 03/23/2023 After visit Summary faxed to Dr Hopkins with confirmation received. PSS forgot to have pt complete release of information forms. This nurse has placed 2 copies in [place] mail for pt to complete and take to facility to release information to our office. POA was advised via voice message to send a [employer] msg if he had any further question. Terri Santos Lpn documented in this encounter [facility] 03-23-2023 Jodi Madrigal DO - 03/23/2023 2:40 PM EDT Please sign records release for last blood test results. documented in this encounter [facility] 03-23-2023 History of Present illness Narrative [facility] [place] Follow-up visit March 23, 2023 HPI: Overall [...] encounter he has moved and low lives [facility]. He states he does not [...] mainly his brother. He has seen by silk blocker in 01/2023 with suggestion that he get a hearing aide but he refuses. After his last encounter he has followed up with cardiology concerning his heart rate that was auscultated on last encounter. They checked his heart rhythm and thought it was appropriate. This was as via physician in [place]. They deny other changes to his health and/or medications except for the above since our last encounter. PAST MEDICAL HISTORY Diagnosis Date Arthritis Carotid stenosis Coronary artery disease Coronary atherosclerosis of unspecified type of vessel, [facility] or graft 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 Dyslipidemia Hypertension Hypertension Hypothyroid Lumbar disc disease Unspecified hypothyroidism Hypothyroidism PAST SURGICAL HISTORY Procedure Laterality Date PAST SURGICAL HISTORY OF CABG times 6 left internal thoracic artery to the ywc-pe-zasvya left anterior descending artery, reverse saphenous vein [...] with more than 50% of the total gnol-zi-kggg time of the visit in counseling / coordination of care. documented in this encounter [facility] 12-25-2022 Note [place] Cardiology - [facility] Subjective Leanna Nelson is a 82 y.o. year old male patient being seen for Follow-up (3 month follow up ) Patient Active Problem List Diagnosis Chronic diastolic heart failure (CMS/HCC) PAC (premature atrial contraction) Coronary artery disease involving [facility] coronary artery of [facility] george heart without angina pectoris Hx of CABG [...] , Rfl: choleca (more content not included)... [facility] 09-22-2022 Note Cardiovascular Medic ine [facility] SUBJECTIVE Chief Complaint Patient presents with office visit brother made appt had appt with neuro thought they heard something when listening to heart. confirmed Leanna Nelson is a 82 y.o. male here for follow-up. HPI PMHx: CAD s/p CABG 2010, HTN, HLD, former tobacco use, hypothyroidism, SAGAR (mild) FMHx: brother hx of RI/CAD and HFrEF 09/22/2022 He is accompanied by his brother. He was admitted back in 06/2022 d/t a fall, treated for rhabdo. He currently lives in a fpc facility. [facility] His weight is up about 30# in the last 3 months. He has also had worsened leg swelling. They are wrapping his legs with ACNDE bandage, attempting daily if he allows them. [...] (premature atrial contraction) Coronary artery disease involving [facility] coronary artery of [facility] 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 [facility] 09-22-2022 Note Review of Systems Cardiovascular: Positive for leg swelling and near-syncope. Negative for chest pain, claudication, cyanosis, dyspnea on exertion, irregular heartbeat, orthopnea, palpitations, paroxysmal nocturnal dyspnea and syncope. Bilateral leg swelling [facility] 08-27-2022 Note HNO ID: [id number] Author: Jodi Banerjee, DO Service: ? Author Type: Physician Type: Progress Notes Filed: 08/27/2022 2:35 PM Note Text: [facility] [place] New Patient Consultation August 27, 2022 HPI: [...] there. They have been working with social work nurse at the facility he is at but [...] Coronary atherosclerosis of unspecified type of vessel, [facility] or graft 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 Dyslipidemia Hypertension Hypertension Hypothyroid Lumbar disc disease Unspecified hypothyroidism Hypothyroidism PAST SURGICAL HISTORY Procedure Laterality Date PAST SURGICAL HISTORY OF CABG times 6 left internal thoracic artery to the cbo-zj-fvgfnm left anterior descending artery, reverse saphenous vein [...] Former Packs/day: 1.0 (more content not included)... [facility] 08-27-2022 History of Present illness Narrative [facility] [place] New Patient Consultation August 27, 2022 HPI: [...] there. They have been working with social work nurse at the facility he is at but [...] Coronary atherosclerosis of unspecified type of vessel, [place] or graft 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 Dyslipidemia Hypertension Hypertension Hypothyroid Lumbar disc disease Unspecified hypothyroidism Hypothyroidism PAST SURGICAL HISTORY Procedure Laterality Date PAST SURGICAL HISTORY OF CABG times 6 left internal thoracic artery to the [id number] left anterior descending artery, reverse saphenous vein [...] with more than 50% of the total [id number] time of the visit in counseling / coordination of care. documented in this encounter [facility] 05-28-2011 History of Past i llness Narrative Problem Noted Date Resolved Date Stress hyperglycemia 05/28/2011 06/01/2011 Overview: RHI gtt per ICU protocol Mechanically assisted ventilation 05/28/2011 05/29/2011 Overview: Extubated 05/29/11 no increased work of breathing Hypotension 05/28/2011 05/30/2011 Overview: Levo off this morning, hemodynamically stable. documented as of this encounter (statuses as of 08/27/2022) [facility] History of Past illness Narrative* Problem Noted Date Diagnosed Date Resolved Date Stress hyperglycemia 05/28/2011 011 Overview: RHI gtt per ICU protocol Mechanically assisted ventilation 05/28/2011 05/29/2011 Overview: Extubated 05/29/11 no increased work of breathing Hypotension 05/28/2011 05/30/2011 Overview: Levo off this morning, hemodynamically stable. documented as of this encounter (statuses as of 03/24/2023) [facility] History of Past illness Narrative* Problem Noted Date Diagnosed Date Resolved Date Stress hyperglycemia 05/28/2011 011 Overview: RHI gtt per ICU protocol Mechanically assisted ventilation 05/28/2011 05/29/2011 Overview: Extubated 05/29/11 no increased work of breathing Hypotension 05/28/2011 05/30/2011 Overview: Levo off this morning, hemodynamically stable. documented as of this encounter (statuses as of 03/24/2023) [facility] Altered mental status, unspecified altered mental status type- Primary Vitamin D deficiency, unspecified [facility] Diagnosis Altered mental status, unspecified altered mental status type- Primary Memory loss documented in this encounter [facility] Summary Purpose Family History No Family History Records FoundNo Family History Records FoundNo Family History Records FoundNo Family History Records FoundNo Family History Records FoundNo Family History Records FoundNo Family History Records FoundNo Family History Records Found Advance Directives No Advanced Directives Records FoundDocuments on File Type Date 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 Advance Directive(s) 08/27/2022 1:25 PM Additional Source Comments (unrecognized sect ion and content) No Status Records FoundNo Status Records FoundNo Status Records FoundNo Status Records FoundNo Status Records FoundNo Status Records FoundNo Status Records FoundNo Status Records Found INFORMATION SOURCE (unrecogn ized section and content) DATE CREATED AUTHOR 12/29/2017 [facility] DATE CREATED AUTHOR AUTHOR'S ORGANIZ ATION 12/30/2017 [facility] DATE CREATED AUTHOR AUTHOR'S ORGANIZ ATION 08/28/2022 [facility] DATE CREATED AUTHOR AUTHOR'S ORGANIZ ATION [facility]/12/2022 [facility] DATE CREATED AUTHOR AUTHOR'S ORGANIZ ATION 03/25/2023 [facility] DATE CREATED AUTHOR AUTHOR'S ORGANIZ ATION 06/25/2023 [facility] DATE CREATED AUTHOR AUTHOR'S ORGANIZ ATION 07/24/2023 [facility] DATE CREATED AUTHOR AUTHOR'S ORGANIZ ATION 08/17/2023 [facility] Source Comments (unrecognize d section and content) In the event this informatio n is protected by the Federal Confidentiality of Alcohol and Drug Abuse Patient Records regulations: The Federal rules restrict any use of the information to criminally investigate or prosecute any alcohol or drug abuse patient.[facility] the event this information is protected by the Federal Confidentiality of Alcohol and Drug Abuse Patient Records regulations: The Federal rules restrict any use of the information to criminally investigate or prosecute any alcohol or drug abuse patient.[facility] the event this information is protected by the Federal Confidentiality of Alcohol and Drug Abuse Patient Records regulations: The Federal rules restrict any use of the information to criminally investigate or prosecute any alcohol or drug abuse patient.[facility] Reason for Visit (unrecogniz ed section and content) Reason Comments New Patient Reason Comments Follow Up Care Teams (unrecognized sec tion and content) Room Service Associate Relationship Specialty Start Date End Date Pipe Hopkins MD [address] [place] [address] PCP - General 05/19/11 [facility] [address] [place] [address] Primary Staff Physician Cardiology 09/21/18 Room Service Associate Relationship Specialty Start Date End Date Pipe Hopkins MD [address] [place] [address] PCP - General 05/19/11 [address] [place] [address] Primary Staff Physician Cardiology 09/21/18 Room Service Associate Relationship Specialty Start Date End Date Pipe Hopkins MD [address] [place] [address] PCP - General 05/19/11 [address] [address] [place] [address] Primary Staff Physician Cardiology 09/21/18 FOR RECORDS [...] BE BASED ON THE PRIMARY CLINICAL RECORDS. [facility] [facility]. provides no warranty or guarantee of the accuracy or completeness of information in this document.
[2024-02-05 09:20] VITALS: BP 150/74; BP 153/79; BP 167/68; PULSE 64; PULSE 70; PULSE 72
--- NOTE | 2024-02-05 09:46 | PC.NURSE ---
Contacted patients brother about getting a ride back to the facility. He stated he is already on his way here and will be here in about 20 min.
[2024-02-05 09:48] VITALS: BP 140/78; PULSE 63; O2SAT 97
== END 2024-02-05 10:31 | disposition home or self-care (01) ==
PROVIDERS: Emergency Provider Emergency Medicine Emergency Medical Services; PCP Family Medicine
DX: Z04.3 Encounter for examination and observation following other accident (principal)
CPT/HCPCS: 99283

== ENCOUNTER 2024-05-23 08:56 | Outpatient (REF) | payer OTHER, MEDICAID, SELFPAY ==
--- OUTSIDE RECORDS SUMMARY | 2024-05-23 09:08 | XMS_ITS | CCD ---
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 Name Role Phone PHYSICIAN, DEFAULT Unavailable Unavailable PHYSICIAN, DEFAULT Unavailable Unavailable EVELIA, SUNJUK Unavailable Unavailable EVELIA, SUNJUK Unavailable Unavailable EVELIA, SUNJUK Unavailable Unavailable Pipe [phone] UNKNOWN Unavailable Unavailable Pipe Hopkins MD Primary Care Provider [phone] [place] Unavailable [phone] PIEP HOPKINS Primary Care Unavailable JODI BANERJEE Referring [...] Unavailable Pipe Hopkins MD Primary Care Provider [phone] [place] Unavailable JODI BANERJEE Attending PIPE Rascon Primary Care Unavailable JODI BANERJEE Attending UnavailPIPE Jeong Primary Care Unavailable AYSE BARNES Attending Unavailable IRINEO BOSS Attending Unavailable AYSE BARNES Attending Unavailable AMANDA IRBY Attending Unavailable PIPE HOPKINS Referring Unavailable Allergies Allergy Classification Reported Allergen(s) Allergy Type Date of Onset Reaction(s) Facility (2 sources) atorvastatin; Translations: [Lipitor] Drug Allergy [facility] Repository (5 sources) atorvastatin; Translations: [ATORVASTATIN CALCIUM] Drug Allergy 03-28-2014 [facility] (1 source) atorvastatin; Translations: [ATORVASTATIN] Drug Allergy 03-28-[address] 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; Translations: [OTH [facility] CURRENT DRUG THERAPY] Onset: 07-14-2022 Episodic Other [...] 08-11-2023 Bilirubin Ql (U) Negative Normal NEG [facility] Comment on above: Performed By: #### U A #### [facility] ([id number]) [address] [place] [address] [place] [address] BLOOD/HGB Negative Normal NEG [facility] Comment on above: Performed By: #### U A #### [facility] ([id number]) [address] [place] [address] [place] [address] Color (U) YELLOW Normal YELLOW [facility] Comment on above: Performed By: #### U A #### [facility] ([id number]) [address] [place] [address] [place] [address] Glucose Ql (U) Negative Normal NEG [facility] Comment on above: Performed By: #### U A #### [facility] ([id number]) [address] [place] [address] [place] [address] Ketones Ql (U) Negative Normal NEG [facility] Comment on above: Performed By: #### U A #### [facility] ([id number]) [address] [place] [address] [place] [address] Leukocyte esterase Test strip Ql (U) Negative Normal NEG [facility] Comment on above: Performed By: #### U A #### [facility] ([id number]) [address] [place] [address] Nitrite Ql (U) Negative Normal NEG [facility] Comment on above: Performed By: #### U A #### [facility] ([id number]) [address] [place] [address] pH (U) 6.0 [pH] Normal 5.0-8.5 [facility] Comment on above: Performed By: #### U A #### [facility] ([id number]) [address] [place] [address] Protein Ql (U) Negative Normal NEG [facility] Comment on above: Performed By: #### U A #### [facility] ([id number]) [address] [place] [address] Specific gravity (U) [Rel density] 1.025 Normal 1.003-1.035 [facility] Comment on above: Performed By: #### U A #### [facility] ([id number]) [address] [place] [address] TURBIDITY CLEAR Normal CLEAR [facility] Comment on above: Performed By: #### U A #### [facility] ([id number]) [address] [place] [address] Urobilinogen Qn (U) 0.2 {Ilene'U}/dL Normal <1.1 [facility] Comment on above: Performed By: #### U A #### [facility] ([id number]) [address] [place] [address] URINE CULTUREon 08-11-2023 Bacteria identified Cx Nom (U) CULTURE RESULTS <10,000 ORGANISMS/ML NORMAL URO GENITAL LOIS Normal [facility] Comment on above: Performed By: #### 6 30-4 #### [facility] ([id number]) [address] [place] [address], [address] [place] [address] Office Visiton 06-24-2023 Follow-up visit [id number] Leanna Nelson 1940 M Date Provider Department Center 06/24/2023 AYSE VIVAR Family History Problem Relation Age of Onset Coronary artery disease Brother Heart attack Brother Heart failure Brother Other Brother Family Status - Relation Status Age at Brother Level of Service:88365 ID OFFICE/OUTPATIENT ESTABLISHED LOW MDM 20 MIN Normal [facility] CNOVon 03-23-2023 CNOV Office Visit (NEUSHF ) LEANNA NELSON ([id number]) 1940 M Date Time Provider Department 03/23/23 2:00 PM JODI BANERJEE During your visit today, we recorded the following information about you: Pulse Blood pressure 51/minute 151/68 Jodi Banerjee, DO 03/23/2023 2:41 PM Signed [facility] Neurologic Rea Follow-up visit March 23, 2023 HPI: Overall [...] encounter he has moved and low lives [facility]. He states he does not [...] mainly his brother. He has seen by manager interventional in 01/2023 with suggestion that he get a hearing aide but he refuses. After his last encounter he has followed up with cardiology concerning his heart rate that was auscultated on last encounter. They checked his heart rhythm and thought it was appropriate. This was as via physician in [place]. They deny other changes to his health and/or medications except for the above since our last encounter. PAST MEDICAL HISTORY Diagnosis Date Arthritis Carotid stenosis Coronary artery disease Coronary atherosclerosis of unspecified type of vessel, [place] or graft 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 Dyslipidemia Hypertension Hypertension Hypothyroid Lumbar disc disease Unspecified hypothyroidism Hypothyroidism PAST SURGICAL HISTORY Procedure Laterality Date PAST SURGICAL HISTORY OF CABG times 6 left internal thoracic artery to the tgi-pt-yeogoe left anterior descending artery, reverse saphenous vein [...] mouth onc (more content not included)... [facility] Telephone (NEUAV4) LEANNA NELSON ([id number]) 1940 M Date Time Provider Department 03/23/23 [...] he had any further question. 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 Family History Problem Relation Age of Onset Coronary artery disease Brother Heart attack Brother Heart failure Brother Other Brother Family Status - Relation Status Age at Brother Level of Service:47973 ID OFFICE/OUTPATIENT ESTABLISHED MOD MDM 30-39 MIN Reason for Visit and Comments: Follow-up [313034] - 3 month follow up Normal [facility] CT CHEST WO CONon 10-27-2022 CT [...] by: LEATHA GAVIRIA Date: 2022-10-27 10:00 Normal [facility] LIPID PROFILEon 09-24-2022 CHOL-HDL RATIO NORM SEE BELOW Normal [facility] Comment on above: Result Comment: 3.3 - 4.4 LOW RISK 4.4 - 7.1 AVERAGE RISK 7.1 - 11.0 MODERATE RISK >11.0 HIGH RISK Performed By: #### L IPID, CMP ####[facility] [address] [place], [place] [address]ZeBud Vásquez Cholesterol [Mass/Vol] 149 mg/dL Normal <=200 [facility] Comment on above: Performed By: #### L IPID, CMP ####[facility] [address] [place], [place] [address]MzBud Vásquez Cholesterol in HDL [Mass/Vol] 83 mg/dL Critically high 40-60 [facility] Comment on above: Performed By: #### L IPID, CMP ####[facility] [address] [place] [address]Dr. Aissatou Vásquez Cholesterol in LDL [Mass/Vol] 58.6 mg/dL Normal [facility] Comment on above: Performed By: #### L IPID, CMP ####[facility] [address] [place] [address]Dr. iAssatou Vásquez Cholesterol.total/Cho lesterol in HDL [Mass ratio] 1.8 {ratio} Normal [facility] Comment on above: Performed By: #### L IPID, CMP ####[facility] [address] [place] [address]Dr. Aissatou Vásquez HDL NORMAL > or = 60 mg/dl - LO W CARDIOVASCULAR RISK <40 mg/dl - HIGH CARDIOVASCULAR RISK Normal [facility] Comment on above: Performed By: #### L IPID, CMP ####[facility] [address] [place] [address]Dr. Aissatou Vásquez LDL CALC NORMAL SEE BELOW Normal [facility] Comment on above: Result Comment: <100 mg/dl OPTIMAL 100 - 129 mg/dl NEAR OR ABOVE OPTIMAL 130 - 159 mg/dl BORDERLINE HIGH 160 - 189 mg/dl HIGH >190 mg/dl VERY HIGH Performed By: #### L IPID, CMP ####[facility] [address] [place] [address]Dr. Aissatou Vásquez Triglyceride [Mass/Vol] 37 mg/dL Normal <=150 [facility] Comment on above: Performed By: #### L IPID, CMP ####[facility] [address] [place] [id number]. Aissatou Vásquez VLDL CALC 7.4 mg/dL Normal [facility] Comment on above: Performed By: #### L IPID, CMP ####[facility] [address] [place] [address]Dr. Aissatou Vásquez PROF 14(COMP METB)on 023 Albumin [Mass/Vol] 3.8 g/dL Normal 3.4-5.0 [facility] Comment on above: Performed By: #### L IPID, CMP ####[facility] [address] [place] [address]Dr. Aissatou Vásquez Albumin/Globulin [Mass ratio] 1.0 {ratio} Normal [facility] Comment on above: Performed By: #### L IPID, CMP ####[facility] [address] [place] [address]Dr. Aissatou Vásquez ALP [Catalytic activity/Vol] 98 U/L Normal 46-116 [facility] Comment on above: Performed By: #### L IPID, CMP ####[facility] [address] [place] [address]Dr. Aissatou Vásquez ALT [Catalytic activity/Vol] 25 U/L Normal 16-63 [facility] Comment on above: Performed By: #### L IPID, CMP ####[facility] [address] [place] [address]Dr. Aissatou Vásquez Anion gap [Moles/Vol] 15.5 mmol/L Normal [facility] Comment on above: Performed By: #### L IPID, CMP ####[facility] [address] [place] [address]Dr. Aissatou Vásquez AST [Catalytic activity/Vol] 21 U/L Normal 15-37 [facility] Comment on above: Performed By: #### L IPID, CMP ####[facility] [address] [place] [address]Dr. Aissatou Vásquez Bilirubin [Mass/Vol] 0.5 mg/dL Normal 0.2-1.0 [facility] Comment on above: Performed By: #### L IPID, CMP ####[facility] [address] [place] [address]Dr. Aissatou Vásquez Calcium [Mass/Vol] 9.5 mg/dL Normal 8.5-10.1 [facility] Comment on above: Performed By: #### L IPID, CMP ####[facility] [address] [place] [address]Dr. Aissatou Vásquez Chloride [Moles/Vol] 107 mmol/L Normal 98-107 [facility] Comment on above: Performed By: #### L IPID, CMP ####[facility] [address] [place], [place] [address]Dr. Aissatou Vásquez CO2 [Moles/Vol] 23.0 mmol/L Normal 21.0-32.0 [facility] Comment on above: Performed By: #### L IPID, CMP ####[facility] [address] [place], [place] [address]Dr. Aissatou Vásquez Creatinine [Mass/Vol] 1.75 mg/dL Critically high 0.70-1.30 [facility] Comment on above: Performed By: #### L IPID, CMP ####[facility] [address] [place], [place] [address]Dr. Aissatou Vásquez EGFR-AF SYRIAN 45 mL/min/1.73m2 Critically low >=60 [facility] Comment on above: Performed By: #### L IPID, CMP ####[facility] [address] [place], [place] [address]Dr. Aissatou Vásquez EGFR-NON AF SYRIAN 37 mL/min/1.73m2 Critically low >=60 [facility] Comment on above: Performed By: #### L IPID, CMP ####[facility] [address] [place], [place] [address]Dr. Aissatou Vásquez Globulin (S) [Mass/Vol] 3.7 g/dL Normal [facility] Comment on above: Performed By: #### L IPID, CMP ####[facility] [address] [place], [place] [address]Dr. Aissatou Vásquez Glucose [Mass/Vol] 83 mg/dL Normal 74-106 [facility] Comment on above: Performed By: #### L IPID, CMP ####[facility] [address] [place], [place] [address]Dr. Aissatou Vásquez Potassium [Moles/Vol] 4.5 mmol/L Normal 3.5-5.1 [facility] Comment on above: Performed By: #### L IPID, CMP ####[facility] [address] [place], [place] [address]Lm. Aissatou Vásquez Protein [Mass/Vol] 7.5 g/dL Normal 6.4-8.2 [facility] Comment on above: Performed By: #### L IPID, CMP ####[facility] [address] [place], [place] [address]On. Aissatou Vásquez Sodium [Moles/Vol] 141 mmol/L Normal 136-145 [facility] Comment on above: Performed By: #### L IPID, CMP ####[facility] [address] [place], [place] [address]Bo. Aissatou Vásquez Urea nitrogen [Mass/Vol] 46.0 mg/dL Critically high 7.0-18.0 [facility] Comment on above: Performed By: #### L IPID, CMP ####[facility] [address] [place], [place] [address]Mm. Aissatou Vásquez Urea nitrogen/Creatinine [Mass ratio] 26.3 mg/mg Normal [facility] Comment on above: Performed By: #### L IPID, CMP ####[facility] [address] [place], [place] [address]Wh. Aissatou Vásquez Office Visiton 09-22-2022 Follow-up visit [id number] Leanna Nelson 1940 M Date Provider Department Center 09/22/2022 Alexandrea-IRINEO BOSS [facility] No family history on file Level of Service:99199 ID OFFICE/OUTPATIENT ESTABLISHED MOD MDM 30-39 MIN Reason for Visit and Comments: office visit [Other] - brother made appt had appt with neuro thought they heard something when listening to heart. confirmed Normal [facility] 25([place])D3 [facility] 25-hydroxyvitamin D3 [Mass/Vol] 28.6 ng/mL Low 31.0-80.0 [facility] Comment on above: Order Comment: Speci men Type: BLOOD SPECIMEN Ordering Facility: [facility] Address: [address] [place] [phone] Result Comment: Clas sification of 25 [place] Vitamin D status: Deficiency/Insufficiency: < or = 30 ng/ml. Sufficiency/Optimal Levels: 31-80 ng/mL Toxicity: > 100 ng/mL. Test performed by chemiluminescent immunoassay. Performed By: #### 1 989-3 #### [facility] CLIA [id number] [address] [place] [address] [place] CNOVon 08-27-2022 CNOV Office Visit (NEUAV4 ) GOPILEANNA Torey ([id number]) 1940 M Date Time Provider Department 08/27/22 1:00 PM JODI BANERJEEAV4 During your visit today, we recorded the following information about you: Pulse Blood pressure 69/minute 156/70 Jodi Banerjee DO 08/27/2022 2:35 PM Addendum [facility] Neurologic Rea New Patient Consultation August 27, 2022 HPI: [...] there. 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 Normal [facility] Reagin and Treponema pallidu m IgG and IgM [Interp]on 08-27-2022 SYPHILIS INTERPRETATION Cannot exclude recent Treponemal infection if specimen collected within 7-10 days after appearance of suspect lesions or 2-3 weeks after an exposure. Clinical correlation is required. Normal [facility] Comment on above: Order Comment: Speci men Type: BLOOD SPECIMEN Ordering Facility: [facility] Address: [address] [place] [place] [address] Performed By: #### 7 3752-8 #### [facility] CLIA [id number] [address] [place] [address] [place] T. pallidum IgG+IgM IA Ql (S) Non-Reactive Normal Nonreactive [facility] Comment on above: Order Comment: Speci men Type: BLOOD SPECIMEN Ordering Facility: [facility] Address: [address] [address] Performed By: #### 7 3752-8 #### [facility] CLIA [id number] [facility] [place] [address] [place] CREATININEon 07-11-2022 Creatinine [Mass/Vol] 2.09 mg/dL Critically high 0.70-1.30 [facility] Comment on above: Performed By: #### C ADAM #### [facility] [address] [place] [address] [address] Aissatou Vásquez EGFR-AF SYRIAN 37 mL/min/1.73m2 Critically low >=60 [facility] Comment on above: Performed By: #### C ADAM #### [facility] [address] [place] [address] [address] Aissatou Vásquez EGFR-NON AF SYRIAN 30 mL/min/1.73m2 Critically low >=60 [facility] Comment on above: Performed By: #### C ADAM #### [facility] [address] [place] [address] [address] Aissatou Vásquez MRI BRAIN WO CONon [...] LEATHA GAVIRIA Date: 2022-07-11 15:11 Normal [facility] CULTURE BLOODon 07-10-2022 Microscopic examination of [...] Tetracycline S P Tobramycin S P Normal [facility] Comment on above: Performed By: #### B LDCX2 ####[facility] [address] [place] [address]Dr. Aissatou Vásquez CBC AUTO DIFFon 07-04-2022 BASO # 0.0 103/ul Normal 0.0-0.1 [facility] Comment on above: Performed By: #### L DHARA WAITE, HSTROPN #### [facility] [address] [place] [address] [address] Aissatou Vásquez Basophils/100 WBC (Bld) 0.3 % Normal 0.2-2.0 [facility] Comment on above: Performed By: #### L DHARA WAITE, HSTROPN #### [facility] [address] [address] [address] Aissatou Vásquez EO # 0.0 103/ul Normal 0.0-0.7 [facility] Comment on above: Performed By: #### L DHARA WAITE, HSTROPN #### [facility] [address] [place] [address] [address] Aissatou Vásquez Eosinophils/100 WBC (Bld) 0.6 % Critically low 0.9-7.0 [facility] Comment on above: Performed By: #### L DHARA WAITE, HSTROPN #### [facility] [address] [place] [address] [address] Aissatou Vásquez Erythrocyte distribution width (RBC) [Ratio] 13.7 % Normal 11.0-15.0 [facility] Comment on above: Performed By: #### L DHARA WAITE, HSTROPN #### [facility] [address] [place] [address] [address] Aissatou Vásquez Hematocrit (Bld) [Volume fraction] 34.2 % Critically low 42.0-54.0 [facility] Comment on above: Performed By: #### L IVER, BMP, HSTROPN #### [facility] [address] [place] [address] Dr. Aissatou Vásquez Hemoglobin (Bld) [Mass/Vol] 10.7 g/dL Critically low 14.0-18.0 [facility] Comment on above: Performed By: #### L IVER, BMP, HSTROPN #### [facility] [address] [place] [address] Dr. Aissatou Vásquez IG # 0.02 10e3/ul Normal 0.00-0.03 [facility] Comment on above: Performed By: #### L IVER, BMP, HSTROPN #### [facility] [address] [place] [address] Dr. Aissatou Vásquez IG % 0.3 % Normal 0.0-0.5 [facility] Comment on above: Performed By: #### L IVER, BMP, HSTROPN #### [facility] [address] [place] [address] Dr. Aissatou Vásquez LYMPH # 1.7 103/ul Normal 1.2-3.8 [facility] Comment on above: Performed By: #### L IVER, BMP, HSTROPN #### [facility] [address] [place] [address] Dr. Aissatou Vásquez Lymphocytes/100 WBC (Bld) 25.6 % Normal 20.5-60.0 [facility] Comment on above: Performed By: #### L IVER, BMP, HSTROPN #### [facility] [address] [place] [address] Dr. Aissatou Vásquez MANUAL DIFF REQ NO Normal [facility] Comment on above: Performed By: #### L IVER, BMP, HSTROPN #### [facility] [address] [place] [address] Dr. Aissatou Vásquez MCH (RBC) [Entitic mass] 29.6 pg Normal 25.9-34.0 [facility] Comment on above: Performed By: #### L IVER, BMP, HSTROPN #### [facility] [address] [place] [address] Dr. Aissatou Vásquez MCHC (RBC) [Mass/Vol] 31.3 g/dL Normal 29.9-35.2 [facility] Comment on above: Performed By: #### L IVER, BMP, HSTROPN #### [facility] [address] [place] [address] Dr. Aissatou Vásquez MCV (RBC) [Entitic vol] 94.5 fL Critically high 80.0-94.0 [facility] Comment on above: Performed By: #### L IVER, BMP, HSTROPN #### [facility] [address] [place] [address] Dr. Aissatou Vásquez MONO # 0.7 103/ul Normal 0.3-0.8 [facility] Comment on above: Performed By: #### L IVER, BMP, HSTROPN #### [facility] [address] [place] [address] Dr. Aissatou Vásquez Monocytes/100 WBC (Bld) 11.2 % Normal 1.7-12.0 [facility] Comment on above: Performed By: #### L IVER, BMP, HSTROPN #### [facility] [address] [place] [address] Dr. Aissatou Vásquez NEUT # 4.0 103/ul Normal 1.4-6.5 [facility] Comment on above: Performed By: #### L IVER, BMP, HSTROPN #### [facility] [address] [place] [address] Dr. Aissatou Vásquez Neutrophils/100 WBC (Bld) 62.0 % Normal 43.0-75.0 [facility] Comment on above: Performed By: #### L IVER, BMP, HSTROPN #### [facility] [address] [place] [address] Dr. Aissatou Vásquez Platelet mean volume (Bld) [Entitic vol] 10.4 fL Normal 9.5-13.5 [facility] Comment on above: Performed By: #### L IVER, BMP, HSTROPN #### [facility] [address] [address] [address] Aissatou Vásquez PLT 134 103/ul Critically low 150-450 [facility] Comment on above: Performed By: #### L IVER, BMP, HSTROPN #### [facility] [address] [address] [address] Aissatou Vásquez RBC 3.62 106/ul Critically low 4.70-6.10 [facility] Comment on above: Performed By: #### L IVER, BMP, HSTROPN #### [facility] [address] [address] [address] Aissatou Vásquez WBC 6.5 103/ul Normal 4.0-11.0 [facility] Comment on above: Performed By: #### L IVER, BMP, HSTROPN #### [facility] [address] [place] [address] Dr. Aissatou Vásquez CPKon 07-04-2022 CK [Catalytic activity/Vol] 149 U/L Normal 39-308 [facility] Comment on above: Performed By: #### L IVER, BMP, HSTROPN #### [facility] [address] [address] [address] Aissatou Vásquez MAGNESIUMon 07-04-2022 Magnesium [Mass/Vol] 1.7 mg/dL Critically low 1.8-2.4 [facility] Comment on above: Performed By: #### L IVER, BMP, HSTROPN #### [facility] [address] [address] [address] Aissatou Vásquez PHOSPHORUSon 07-04-2022 Phosphate [Mass/Vol] 3.6 mg/dL Normal 2.6-4.7 [facility] Comment on above: Performed By: #### L IVER, BMP, HSTROPN #### [facility] [address] [place] [address] Dr. Aissatou Vásquez PROF 14(COMP METB)on Albumin [Mass/Vol] 2.8 g/dL Critically low 3.4-5.0 [facility] Comment on above: Performed By: #### L IVER, BMP, HSTROPN #### [facility] [address] [address] [address] Aissatou Vásquez Albumin/Globulin [Mass ratio] 0.9 {ratio} Normal [facility] Comment on above: Performed By: #### L IVER, BMP, HSTROPN #### [facility] [address] [place] [address] Dr. Aissatou Vásquez ALP [Catalytic activity/Vol] 86 U/L Normal 46-116 [facility] Comment on above: Performed By: #### L IVER, BMP, HSTROPN #### [facility] [address] [place] [address] Dr. Aissatou Vásquez ALT [Catalytic activity/Vol] 50 U/L Normal 16-63 [facility] Comment on above: Performed By: #### L IVER, BMP, HSTROPN #### [facility] [address] [place] [address] Dr. Aissatou Vásquez Anion gap [Moles/Vol] 11.6 mmol/L Normal [facility] Comment on above: Performed By: #### L IVER, BMP, HSTROPN #### [facility] [address] [place] [address] Dr. Aissatou Vásquez AST [Catalytic activity/Vol] 41 U/L Critically high 15-37 [facility] Comment on above: Performed By: #### L IVER, BMP, HSTROPN #### [facility] [address] [place] [address] Dr. Aissatou Vásquez Bilirubin [Mass/Vol] 0.4 mg/dL Normal 0.2-1.0 [facility] Comment on above: Performed By: #### L IVER, BMP, HSTROPN #### [facility] [address] [place] [address] Dr. Aissatou Vásquez Calcium [Mass/Vol] 8.7 mg/dL Normal 8.5-10.1 [facility] Comment on above: Performed By: #### L IVER, BMP, HSTROPN #### [facility] [address] [place] [address] Dr. Aissatou Vásquez Chloride [Moles/Vol] 106 mmol/L Normal 98-107 [facility] Comment on above: Performed By: #### L IVER, BMP, HSTROPN #### [facility] [address] [place] [address] Dr. Aissatou Vásquez CO2 [Moles/Vol] 27.0 mmol/L Normal 21.0-32.0 [facility] Comment on above: Performed By: #### L IVER, BMP, HSTROPN #### [facility] [address] [place] [address] Dr. iAssatou Vásquez Creatinine [Mass/Vol] 1.99 mg/dL Critically high 0.70-1.30 [facility] Comment on above: Performed By: #### L IVER, BMP, HSTROPN #### [facility] [address] [place] [address] Dr. Aissatou Vásquez EGFR-AF SYRIAN 39 mL/min/1.73m2 Critically low >=60 [facility] Comment on above: Performed By: #### L IVER, BMP, HSTROPN #### [facility] [address] [place] [address] Dr. Aissatou Vásquez EGFR-NON AF SYRIAN 32 mL/min/1.73m2 Critically low >=60 [facility] Comment on above: Performed By: #### L IVER, BMP, HSTROPN #### [facility] [address] [place] [address] Dr. Aissatou Vásquez Globulin (S) [Mass/Vol] 3.1 g/dL Normal [facility] Comment on above: Performed By: #### L IVER, BMP, HSTROPN #### [facility] [address] [place] [address] Dr. Aissatou Vásquez Glucose [Mass/Vol] 93 mg/dL Normal 74-106 [facility] Comment on above: Performed By: #### L IVER, BMP, HSTROPN #### [facility] [address] [place] [address] Dr. Aissatou Vásquez Potassium [Moles/Vol] 4.6 mmol/L Normal 3.5-5.1 [facility] Comment on above: Performed By: #### L DHARA WAITE, HSTROPN #### [facility] [address] [address] [address] Aissatou Vásquez Protein [Mass/Vol] 5.9 g/dL Critically low 6.4-8.2 [facility] Comment on above: Performed By: #### L IVDHARA LANDRY, HSTROPN #### [facility] [address] [address] [address] Aissatou Vásquez Sodium [Moles/Vol] 140 mmol/L Normal 136-145 [facility] Comment on above: Performed By: #### L IVDHARA LANDRY, HSTROPN #### [facility] [address] [address] [address] Aissatou Vásquez Urea nitrogen [Mass/Vol] 50.0 mg/dL Critically high 7.0-18.0 [facility] Comment on above: Performed By: #### L IVDHARA LANDRY, HSTROPN #### [facility] [address] [address] [address] Aissatou Vásquez Urea nitrogen/Creatinine [Mass ratio] 25.1 mg/mg Normal [facility] Comment on above: Performed By: #### L DHARA WAITE, HSTROPN #### [facility] [address] [address] [address] Aissatou Vásquez PROTIMEon 07-04-2022 INR Coag (PPP) [Relative time] 1.05 {INR} Normal [facility] Comment on above: Performed By: #### C ADAM #### [facility] [address] [address] [address] Aissatou Vásquez INR GUIDELINES SEE BELOW Normal [facility] Comment on above: Result Comment: ELISABETH RED INR: 2.0 - 3.0 CONDITIONS NOT LISTED BELOW 2.5 - 3.5 FOR PROSTHETIC HEART VALVE REPLACEMENT 2.5 - 3.5 RECURRENT THROMBOSIS Performed By: #### C ADAM #### [facility] [address] [place] [address] Dr. Aissatou Vásquez PT Coag (PPP) [Time] 11.3 s Normal 9.0-11.6 [facility] Comment on above: Performed By: #### C ADAM #### [facility] [address] [place] [address] Dr. Aissatou Vásquez CBC AUTO DIFFon 07-03-2022 BASO # 0.0 103/ul Normal 0.0-0.1 [facility] Comment on above: Performed By: #### L IVER, BMP, HSTROPN #### [facility] [address] [place] [address] Dr. Aissatou Vásquez Basophils/100 WBC (Bld) 0.3 % Normal 0.2-2.0 [facility] Comment on above: Performed By: #### L IVER, BMP, HSTROPN #### [facility] [address] [place] [address] Dr. Aissatou Vásquez EO # 0.0 103/ul Normal 0.0-0.7 [facility] Comment on above: Performed By: #### L IVER, BMP, HSTROPN #### [facility] [address] [place] [address] Dr. Aissatou Vásquez Eosinophils/100 WBC (Bld) 0.3 % Critically low 0.9-7.0 [facility] Comment on above: Performed By: #### L IVER, BMP, HSTROPN #### [facility] [address] [place] [address] Dr. Aissatou Vásquez Erythrocyte distribution width (RBC) [Ratio] 13.8 % Normal 11.0-15.0 [facility] Comment on above: Performed By: #### L IVER, BMP, HSTROPN #### [facility] [address] [place] [address] Dr. Aissatou Vásquez Hematocrit (Bld) [Volume fraction] 31.7 % Critically low 42.0-54.0 [facility] Comment on above: Performed By: #### L IVER, BMP, HSTROPN #### [facility] [address] [place] [address] Dr. Aissatou Vásquez Hemoglobin (Bld) [Mass/Vol] 10.2 g/dL Critically low 14.0-18.0 [facility] Comment on above: Performed By: #### L IVER, BMP, HSTROPN #### [facility] [address] [address] [address] Aissatou Vásquez IG # 0.02 10e3/ul Normal 0.00-0.03 [facility] Comment on above: Performed By: #### L IVER, BMP, HSTROPN #### [facility] [address] [place] [address] Dr. Aissatou Vásquez IG % 0.3 % Normal 0.0-0.5 [facility] Comment on above: Performed By: #### L IVER, BMP, HSTROPN #### [facility] [address] [place] [address] Dr. Aissatou Vásquez LYMPH # 1.5 103/ul Normal 1.2-3.8 [facility] Comment on above: Performed By: #### L IVER, BMP, HSTROPN #### [facility] [address] [place] [address] Dr. Aissatou Vásquez Lymphocytes/100 WBC (Bld) 20.3 % Critically low 20.5-60.0 [facility] Comment on above: Performed By: #### L IVER, BMP, HSTROPN #### [facility] [address] [place] [address] Dr. Aissatou Vásquez MANUAL DIFF REQ NO Normal [facility] Comment on above: Performed By: #### L IVER, BMP, HSTROPN #### [facility] [address] [place] [address] Dr. Aissatou Vásquez MCH (RBC) [Entitic mass] 30.3 pg Normal 25.9-34.0 [facility] Comment on above: Performed By: #### L IVER, BMP, HSTROPN #### [facility] [address] [place] [address] Dr. Aissatou Vásquez MCHC (RBC) [Mass/Vol] 32.2 g/dL Normal 29.9-35.2 [facility] Comment on above: Performed By: #### L IVER, BMP, HSTROPN #### [facility] [address] [place] [address] Dr. Aissatou Vásquez MCV (RBC) [Entitic vol] 94.1 fL Critically high 80.0-94.0 [facility] Comment on above: Performed By: #### L IVER, BMP, HSTROPN #### [facility] [address] [place] [address] Dr. Aissatou Vásquez MONO # 0.7 103/ul Normal 0.3-0.8 [facility] Comment on above: Performed By: #### L IVER, BMP, HSTROPN #### [facility] [address] [place] [address] Dr. Aissatou Vásquez Monocytes/100 WBC (Bld) 9.9 % Normal 1.7-12.0 [facility] Comment on above: Performed By: #### L IVER, BMP, HSTROPN #### [facility] [address] [place] [address] Dr. Aissatou Vásquez NEUT # 4.9 103/ul Normal 1.4-6.5 [facility] Comment on above: Performed By: #### L IVER, BMP, HSTROPN #### [facility] [address] [place] [address] Dr. Aissatou Vásquez Neutrophils/100 WBC (Bld) 68.9 % Normal 43.0-75.0 [facility] Comment on above: Performed By: #### L IVER, BMP, HSTROPN #### [facility] [address] [place] [address] Dr. Aissatou Vásquez Platelet mean volume (Bld) [Entitic vol] 10.7 fL Normal 9.5-13.5 [facility] Comment on above: Performed By: #### L IVER, BMP, HSTROPN #### [facility] [address] [place] [address] Dr. Aissatou Vásquez PLT 141 103/ul Critically low 150-450 [facility] Comment on above: Performed By: #### L IVER, BMP, HSTROPN #### [facility] [address] [address] [address] Aissatou Vásquez RBC 3.37 106/ul Critically low 4.70-6.10 [facility] Comment on above: Performed By: #### L IVER, BMP, HSTROPN #### [facility] [address] [address] [address] Aissatou Vásquez WBC 7.1 103/ul Normal 4.0-11.0 [facility] Comment on above: Performed By: #### L IVER, BMP, HSTROPN #### [facility] [address] [address] [address] Aissatou Vásquez CPKon 07-03-2022 CK [Catalytic activity/Vol] 331 U/L Critically high 39-308 [facility] Comment on above: Performed By: #### L IVER, BMP, HSTROPN #### [facility] [address] [address] [address] Aissatou Vásquez CT ABD/PELVIS WO CONon [...] STEPHEN ROUSE Date: 2022-07-03 11:06 Normal [facility] CULTURE BLOODon 07-03-2022 Microscopic examination of blood, culture Culture Observations: NO GROWTH AT 5 DAYS. Normal [facility] Comment on above: Performed By: #### B LDCX2 ####[facility] [id number] [address]Dr. Aissatou Vásquez Microscopic examination of blood, culture Culture Observations: NO GROWTH AT 5 DAYS. Normal [facility] Comment on above: Performed By: #### B LDCX1 ####[facility] [id number] [address]Dr. Aissatou Vásquez MAGNESIUMon 07-03-2022 Magnesium [Mass/Vol] 1.8 mg/dL Normal 1.8-2.4 [facility] Comment on above: Performed By: #### DHARA KONG HSTROPN #### [facility] [address] [address] [address] Aissatou Vásquez PHOSPHORUSon 07-03-2022 Phosphate [Mass/Vol] 4.0 mg/dL Normal 2.6-4.7 [facility] Comment on above: Performed By: #### DHARA KONG HSTROPN #### [facility] [address] [address] [address] Aissatou Vásquez POINT OF CARE GLUCOSEon 06-06 Glucose [Mass/Vol] 77 mg/dL Normal 74-106 [facility] Comment on above: Performed By: #### Soni ADAM #### [facility] [address] [address] [address] Aissatou Vásquez PROF 14(COMP METB)on 022 Albumin [Mass/Vol] 2.6 g/dL Critically low 3.4-5.0 [facility] Comment on above: Performed By: #### L IVER, BMP, HSTROPN #### [facility] [address] [address] [address] Aissatou Vásquez Albumin/Globulin [Mass ratio] 0.9 {ratio} Normal [facility] Comment on above: Performed By: #### L IVER, BMP, HSTROPN #### [facility] [address] [address] [address] Aissatou Vásquez ALP [Catalytic activity/Vol] 81 U/L Normal 46-116 [facility] Comment on above: Performed By: #### L IVER, BMP, HSTROPN #### [facility] [address] [place] [address] Dr. Aissatou Vásquez ALT [Catalytic activity/Vol] 46 U/L Normal 16-63 [facility] Comment on above: Performed By: #### L IVER, BMP, HSTROPN #### [facility] [address] [place] [address] Dr. Aissatou Vásquez Anion gap [Moles/Vol] 11.9 mmol/L Normal [facility] Comment on above: Performed By: #### L IVER, BMP, HSTROPN #### [facility] [address] [place] [address] Dr. Aissatou Vásquez AST [Catalytic activity/Vol] 45 U/L Critically high 15-37 [facility] Comment on above: Performed By: #### L IVER, BMP, HSTROPN #### [facility] [address] [address] [address] Aissatou Vásquez Bilirubin [Mass/Vol] 0.2 mg/dL Normal 0.2-1.0 [facility] Comment on above: Performed By: #### L IVER, BMP, HSTROPN #### [facility] [address] [place] [address] Dr. Aissatou Vásquez Calcium [Mass/Vol] 8.5 mg/dL Normal 8.5-10.1 [facility] Comment on above: Performed By: #### L IVER, BMP, HSTROPN #### [facility] [address] [address] [address] Aissatou Vásquez Chloride [Moles/Vol] 108 mmol/L Critically high 98-107 [facility] Comment on above: Performed By: #### L IVER, BMP, HSTROPN #### [facility] [address] [address] [address] Aissatou Vásquez CO2 [Moles/Vol] 25.9 mmol/L Normal 21.0-32.0 [facility] Comment on above: Performed By: #### L IVER, BMP, HSTROPN #### [facility] [address] [place] [address] Dr. Aissatou Vásquez Creatinine [Mass/Vol] 2.34 mg/dL Critically high 0.70-1.30 [facility] Comment on above: Performed By: #### L IVER, BMP, HSTROPN #### [facility] [address] [place] [address] Dr. Aissatou Vásquez EGFR-AF SYRIAN 32 mL/min/1.73m2 Critically low >=60 [facility] Comment on above: Performed By: #### L IVER, BMP, HSTROPN #### [facility] [address] [place] [address] Dr. Aissatou Vásquez EGFR-NON AF SYRIAN 27 mL/min/1.73m2 Critically low >=60 [facility] Comment on above: Performed By: #### L IVER, BMP, HSTROPN #### [facility] [address] [address] [address] Aissatou Vásquez Globulin (S) [Mass/Vol] 3.0 g/dL Normal [facility] Comment on above: Performed By: #### L IVER, BMP, HSTROPN #### [facility] [address] [place] [address] Dr. Aissatou Vásquez Glucose [Mass/Vol] 93 mg/dL Normal 74-106 [facility] Comment on above: Performed By: #### L IVER, BMP, HSTROPN #### [facility] [address] [place] [address] Dr. Aissatou Vásquez Potassium [Moles/Vol] 4.8 mmol/L Normal 3.5-5.1 [facility] Comment on above: Performed By: #### L IVDHARA LANDRY, HSTROPN #### [facility] [address] [address] [address] Aissatou Vásquez Protein [Mass/Vol] 5.6 g/dL Critically low 6.4-8.2 [facility] Comment on above: Performed By: #### L IVFRANTZ BMP, HSTROPN #### [facility] [address] [address] [address] Aissatou Vásquez Sodium [Moles/Vol] 141 mmol/L Normal 136-145 [facility] Comment on above: Performed By: #### L IVFRANTZ BMP, HSTROPN #### [facility] [address] [place] [address] Dr. Aissatou Vásquez Urea nitrogen [Mass/Vol] 61.0 mg/dL Critically high 7.0-18.0 [facility] Comment on above: Performed By: #### L IVDHARA LANDRY, HSTROPN #### [facility] [address] [place] [address] Dr. Aissatou Vásquez Urea nitrogen/Creatinine [Mass ratio] 26.1 mg/mg Normal [facility] Comment on above: Performed By: #### L IVDHARA LANDRY, HSTROPN #### [facility] [address] [place] [address] Dr. Aissatou Vásquez PROTIMEon 07-03-2022 INR Coag (PPP) [Relative time] 1.12 {INR} Normal [facility] Comment on above: Performed By: #### C ADAM #### [facility] [address] [place] [address] Dr. Aissatou Vásquez INR GUIDELINES SEE BELOW Normal [facility] Comment on above: Result Comment: ELISABETH RED INR: 2.0 - 3.0 CONDITIONS NOT LISTED BELOW 2.5 - 3.5 FOR PROSTHETIC HEART VALVE REPLACEMENT 2.5 - 3.5 RECURRENT THROMBOSIS Performed By: #### C ADAM #### [facility] [address] [address] [address] Aissatou Vásquez PT Coag (PPP) [Time] 12.0 s Critically high 9.0-11.6 [facility] Comment on above: Performed By: #### C ADAM #### [facility] [address] [address] [address] Aissatou Vásquez CBC AUTO DIFFon 07-02-2022 BASO # 0.0 103/ul Normal 0.0-0.1 [facility] Comment on above: Performed By: #### C BC ####[facility] [address] [address]DrBud Vásquez Basophils/100 WBC (Bld) 0.1 % Critically low 0.2-2.0 [facility] Comment on above: Performed By: #### C BC ####[facility] [address] [place], [place] [address]Dr. Aissatou Vásquez EO # 0.0 103/ul Normal 0.0-0.7 [facility] Comment on above: Performed By: #### C BC ####[facility] [id number] [address]Dr. Aissatou Vásquez Eosinophils/100 WBC (Bld) 0.0 % Critically low 0.9-7.0 [facility] Comment on above: Performed By: #### C BC ####[facility] [address] [place], [place] [address]DrBud Vásquez Erythrocyte distribution width (RBC) [Ratio] 13.4 % Normal 11.0-15.0 [facility] Comment on above: Performed By: #### C BC ####[facility] [address] [place], [place] [address]Dr. Aissatou Vásquez Hematocrit (Bld) [Volume fraction] 39.9 % Critically low 42.0-54.0 [facility] Comment on above: Performed By: #### C BC ####[facility] [address] [place], [place] [address]DrBud Vásquez Hemoglobin (Bld) [Mass/Vol] 12.8 g/dL Critically low 14.0-18.0 [facility] Comment on above: Performed By: #### C BC ####[facility] [address] [id number]. Sheysarah Vásquez IG # 0.05 10e3/ul Critically high 0.00-0.03 [facility] Comment on above: Performed By: #### C BC ####[facility] [address] [id number]. Aissatou Vásquez IG % 0.4 % Normal 0.0-0.5 [facility] Comment on above: Performed By: #### C BC ####[facility] [address] [address]Dr. Aissatou Vásquez LYMPH # 0.8 103/ul Critically low 1.2-3.8 [facility] Comment on above: Performed By: #### C BC ####[facility] [address] [address]Dr. Aissatou Vásquez Lymphocytes/100 WBC (Bld) 7.2 % Critically low 20.5-60.0 [facility] Comment on above: Performed By: #### C BC ####[facility] [address] [address]Dr. Aissatou Vásquez MANUAL DIFF REQ NO Normal [facility] Comment on above: Performed By: #### C BC ####[facility] [address] [id number]. Aissatou Vásquez MCH (RBC) [Entitic mass] 30.0 pg Normal 25.9-34.0 [facility] Comment on above: Performed By: #### C BC ####[facility] [address] [id number]. Aissatou Vásquez MCHC (RBC) [Mass/Vol] 32.1 g/dL Normal 29.9-35.2 [facility] Comment on above: Performed By: #### C BC ####[facility] [address] [address]Dr. Aissatou Vásquez MCV (RBC) [Entitic vol] 93.7 fL Normal 80.0-94.0 [facility] Comment on above: Performed By: #### C BC ####[facility] [address] [id number]. Aissatou Vásquez MONO # 0.8 103/ul Normal 0.3-0.8 [facility] Comment on above: Performed By: #### C BC ####[facility] [id number] [place] [id number]. Aissatou Vásquez Monocytes/100 WBC (Bld) 6.8 % Normal 1.7-12.0 [facility] Comment on above: Performed By: #### C BC ####[facility] [address] [place] [id number]. Aissatou Vásquez NEUT # 9.8 103/ul Critically high 1.4-6.5 [facility] Comment on above: Performed By: #### C BC ####[facility] [address] [place] [address]Dr. Aissatou Vásquez Neutrophils/100 WBC (Bld) 85.5 % Critically high 43.0-75.0 [facility] Comment on above: Performed By: #### C BC ####[facility] [id number] [place] [id number]. Aissatou Vásquez Platelet mean volume (Bld) [Entitic vol] 10.8 fL Normal 9.5-13.5 [facility] Comment on above: Performed By: #### C BC ####[facility] [address] [place] [id number]. Aissatou Vásquez PLT 170 103/ul Normal 150-450 [facility] Comment on above: Performed By: #### C BC ####[facility] [address] [place] [id number]. Aissatou Vásquez RBC 4.26 106/ul Critically low 4.70-6.10 [facility] Comment on above: Performed By: #### C BC ####[facility] [address] [place] [id number]. Aissatou Vásquez WBC 11.4 103/ul Critically high 4.0-11.0 [facility] Comment on above: Performed By: #### C BC ####[facility] [address] [place], [place] [address]Dr. Aissatou Vásquez CKMBon 07-02-2022 CK.MB [Mass/Vol] 80.91 ng/mL Critically high <=3.60 Th e [facility] Comment on above: Performed By: #### L IVER, BMP, HSTROPN #### [facility] [address] [place], [place] [address] Dr. Aissatou Vásquez CPKon 07-02-2022 CK [Catalytic activity/Vol] 915 U/L Critically high 39-308 [facility] Comment on above: Performed By: #### L IVER, BMP, HSTROPN #### [facility] [address] [place], [place] [address] Dr. Aissatou Vásquez ECHOCARDIO M/2D COMPLETEon 1 09-02-2021 ECHOCARDIO M/2D COMPLETE Patient: LEANNA NELSON Exam Date: 07/02/2022 : 1940 Gender:M Ordering : SHAIKH Delphine RODRIGUEZ . Admission #: [id number] Family : DR PIPE HOPKINS . Order #: [id number] CLICK HERE TO VIEW EXAM ECHOCARDIOGRAM REPORT [...] Cameron M.D. on 07/08/2022 at 09:55 Normal [facility] MAGNESIUMon 07-02-2022 Magnesium [Mass/Vol] 1.9 mg/dL Normal 1.8-2.4 [facility] Comment on above: Performed By: #### L DHARA WAITE, HSTROPN #### [facility] [address] [place] [address] [address] Aissatou Vásquez MYOGLOBINon 07-02-2022 SARAH 1312 ng/mL Critically high 16-96 [facility] Comment on above: Performed By: #### L DHARA WAITE, HSTROPN #### [facility] [address] [place] [address] [address] Aissatou áVsquez PHOSPHORUSon 07-02-2022 Phosphate [Mass/Vol] 6.0 mg/dL Critically high 2.6-4.7 [facility] Comment on above: Performed By: #### L DHARA WAITE, HSTROPN #### [facility] [address] [place] [address] [address] Aissatou Vásquez POINT OF CARE GLUCOSEon 06-06 Glucose [Mass/Vol] 78 mg/dL Normal 74-106 [facility] Comment on above: Performed By: #### C ADAM #### [facility] [address] [place] [address] [address] Aissatou Vásquez Glucose [Mass/Vol] 104 mg/dL Normal 74-106 [facility] Comment on above: Performed By: #### P OCGLUC ####[facility] [address] [place] [address]Dr. Aissatou Vásquez Glucose [Mass/Vol] 83 mg/dL Normal 74-106 [facility] Comment on above: Performed By: #### L IVER, BMP, HSTROPN #### [facility] [address] [place] [address] [address] Aissatou Vásquez Glucose [Mass/Vol] 100 mg/dL Normal 74-106 [facility] Comment on above: Performed By: #### C ADAM #### [facility] [address] [place] [address] [address] Aissatou Vásquez Glucose [Mass/Vol] 73 mg/dL Critically low 74-106 [facility] Comment on above: Performed By: #### P OCGLUC ####[facility] [id number] [place] [address]Dr. Aissatou Vásquez PROF 14(COMP METB)on 022 Albumin [Mass/Vol] 3.3 g/dL Critically low 3.4-5.0 [facility] Comment on above: Performed By: #### L IVER, BMP, HSTROPN #### [facility] [address] [place] [address] [address] Aissatou Vásquez Albumin/Globulin [Mass ratio] 1.0 {ratio} Normal [facility] Comment on above: Performed By: #### L IVER, BMP, HSTROPN #### [facility] [address] [place] [address] [address] Aissatou Vásquez ALP [Catalytic activity/Vol] 114 U/L Normal 46-116 [facility] Comment on above: Performed By: #### L IVER, BMP, HSTROPN #### [facility] [address] [place] [address] [address] Aissatou Vásquez ALT [Catalytic activity/Vol] 48 U/L Normal 16-63 [facility] Comment on above: Performed By: #### L IVER, BMP, HSTROPN #### [facility] [address] [place] [address] [address] Aissatou Vásquez Anion gap [Moles/Vol] 17.3 mmol/L Normal [facility] Comment on above: Performed By: #### L IVER, BMP, HSTROPN #### [facility] [address] [place] [address] Dr. Aissatou Vásquez AST [Catalytic activity/Vol] 68 U/L Critically high 15-37 [facility] Comment on above: Performed By: #### L IVER, BMP, HSTROPN #### [facility] [address] [place] [address] [address] Aissatou Vásquez Bilirubin [Mass/Vol] 0.5 mg/dL Normal 0.2-1.0 [facility] Comment on above: Performed By: #### L IVER, BMP, HSTROPN #### [facility] [address] [place] [address] Dr. Aissatou Vásquez Calcium [Mass/Vol] 8.9 mg/dL Normal 8.5-10.1 [facility] Comment on above: Performed By: #### L IVER, BMP, HSTROPN #### [facility] [address] [place] [address] Dr. Aissatou Vásquez Chloride [Moles/Vol] 109 mmol/L Critically high 98-107 [facility] Comment on above: Performed By: #### L IVER, BMP, HSTROPN #### [facility] [address] [place] [address] [address] Aissatou Vásquez CO2 [Moles/Vol] 22.8 mmol/L Normal 21.0-32.0 [facility] Comment on above: Performed By: #### L IVER, BMP, HSTROPN #### [facility] [address] [place] [address] Dr. Aissatou Vásquez Creatinine [Mass/Vol] 1.89 mg/dL Critically high 0.70-1.30 [facility] Comment on above: Performed By: #### L IVER, BMP, HSTROPN #### [facility] [address] [place] [address] Dr. Aissatou Vásquez EGFR-AF SYRIAN 41 mL/min/1.73m2 Critically low >=60 [facility] Comment on above: Result Comment: Prev iously reported as: (blank) On 07/02/2022 05:50 By KD3 Performed By: #### L IVER, BMP, HSTROPN #### [facility] [address] [place] [address] [address] Aissatou Vásquez EGFR-NON AF SYRIAN 34 mL/min/1.73m2 Critically low >=60 [facility] Comment on above: Result Comment: Prev iously reported as: (blank) On 07/02/2022 05:50 By KD3 Performed By: #### L IVER, BMP, HSTROPN #### [facility] [address] [place] [address] [address] Aissatou Vásquez Globulin (S) [Mass/Vol] 3.4 g/dL Normal [facility] Comment on above: Performed By: #### L IVER, BMP, HSTROPN #### [facility] [address] [place] [address] Dr. Aissatou Vásquez Glucose [Mass/Vol] 86 mg/dL Normal 74-106 [facility] Comment on above: Performed By: #### L IVER, BMP, HSTROPN #### [facility] [address] [place] [address] Dr. Aissatou Vásquez Potassium [Moles/Vol] 5.1 mmol/L Normal 3.5-5.1 [facility] Comment on above: Performed By: #### L IVER, BMP, HSTROPN #### [facility] [address] [place] [address] [address] Aissatou Vásquez Protein [Mass/Vol] 6.7 g/dL Normal 6.4-8.2 [facility] Comment on above: Performed By: #### L IVER, BMP, HSTROPN #### [facility] [address] [place] [address] [address] Aissatou Vásquez Sodium [Moles/Vol] 144 mmol/L Normal 136-145 [facility] Comment on above: Performed By: #### L IVER, BMP, HSTROPN #### [facility] [address] [place] [address] Dr. Aissatou Vásquez Urea nitrogen [Mass/Vol] 55.0 mg/dL Critically high 7.0-18.0 [facility] Comment on above: Performed By: #### L IVER, BMP, HSTROPN #### [facility] [address] [place] [address] [address] Aissatou Vásquez Urea nitrogen/Creatinine [Mass ratio] 29.1 mg/mg Normal [facility] Comment on above: Performed By: #### L IVER, BMP, HSTROPN #### [facility] [address] [place] [address] [address] Aissatou Vásquez PROTIMEon 07-02-2022 INR Coag (PPP) [Relative time] 1.13 {INR} Normal [facility] Comment on above: Performed By: #### L IVER, BMP, HSTROPN #### [facility] [address] [place] [address] Dr. Aissatou Vásquez INR GUIDELINES SEE BELOW Normal [facility] Comment on above: Result Comment: ELISABETH RED INR: 2.0 - 3.0 CONDITIONS NOT LISTED BELOW 2.5 - 3.5 FOR PROSTHETIC HEART VALVE REPLACEMENT 2.5 - 3.5 RECURRENT THROMBOSIS Performed By: #### L IVER, BMP, HSTROPN #### [facility] [address] [place] [address] Dr. Aissatou Vásquez PT Coag (PPP) [Time] 12.1 s Critically high 9.0-11.6 [facility] Comment on above: Performed By: #### L IVER, BMP, HSTROPN #### [facility] [address] [place] [address] Dr. Aissatou Vásquez BLOOD CULTURE ID PANELon A. baumannii Not detected Normal NOT DETECTED [facility] Comment on above: Performed By: #### C ADAM #### [facility] [address] [place] [address] Dr. Aissatou Vásquez Bacteriodes fragilis Not detected Normal NOT DETECTED [facility] Comment on above: Performed By: #### C ADAM #### [facility] [address] [place] [address] Dr. Aissatou Vásquez BCID CONTROLS PASSED Normal [facility] Comment on above: Performed By: #### C ADAM #### [facility] [address] [place] [address] Dr. Aissatou Vásquez BCIDBTHD BLOOD CULTURE BOTTLE INFORMATION [facility] Comment on above: Performed By: #### C ADAM #### [facility] [address] [place] [address] Dr. Aissatou Vásquez BCIDHD1 ANTIMICROBIAL RESISTANCE GENES [facility] Comment on above: Performed By: #### C ADAM #### [facility] [address] [place] [address] Dr. Aissatou Vásquez BCIDHD2 SEE BELOW [facility] Comment on above: Result Comment: Note : Antimicrobial resitance can occur via multiple mechanisms. A Not Detected result for the [employer] antomicrobial resistance gene assays does not indicate antimicrobial susceptibility. Subculturing is required for species identification and susceptibility testing of isolates. Performed By: #### C ADAM #### [facility] [address] [place] [address] Dr. Aissatou Vásquez BCIDHD3 Positive [facility] Comment on above: Performed By: #### C ADAM #### [facility] [address] [place] [address] Dr. Aissatou Vásquez BCIDHD4 Negative [facility] Comment on above: Performed By: #### C ADAM #### [facility] [address] [place] [address] Dr. Aissatou Vásquez BCIDHD5 YEAST Normal [facility] Comment on above: Performed By: #### C ADAM #### [facility] [address] [place] [address] Dr. Aissatou Vásquez Bottle Set: Set 2 [facility] Comment on above: Performed By: #### C ADAM #### [facility] [address] [place] [address] Dr. Aissatou Vásquez Bottle: Pediatric Normal [facility] Comment on above: Performed By: #### C ADAM #### [facility] [address] [place] [address] Dr. Aissatou Vásquez C. neoformans/gattii Not detected Normal NOT DETECTED [facility] Comment on above: Performed By: #### C ADAM #### [facility] [address] [place] [address] Dr. Aissatou Vásquez Soraya albicans Not detected Normal NOT DETECTED [facility] Comment on above: Performed By: #### C ADAM #### [facility] [address] [place] [address] [address] Aissatou Vásquez Soraya auris Not detected Normal NOT DETECTED [facility] Comment on above: Performed By: #### C ADAM #### [facility] [address] [place] [address] Dr. Aissatou Vásquez Soraya glabrata Not detected Normal NOT DETECTED [facility] Comment on above: Performed By: #### C ADAM #### [facility] [address] [place] [address] Dr. Aissatou Vásquez Soraya Krusei Not detected Normal NOT DETECTED [facility] Comment on above: Performed By: #### C ADAM #### [facility] [address] [place] [address] Dr. Aissatou Vásquez Soraya Parapsilosis Not detected Normal NOT DETECTED [facility] Comment on above: Performed By: #### C ADAM #### [facility] [address] [place] [address] Dr. Aissatou Vásquez Soraya Tropicalis Not detected Normal NOT DETECTED [facility] Comment on above: Performed By: #### C ADAM #### [facility] [address] [place] [address] Dr. Aissatou Vásquez CTX-M Resistant Gene Not detected Normal NOT DETECTED [facility] Comment on above: Performed By: #### C ADAM #### [facility] [address] [place] [address] Dr. Aissatou Vásquez E. Cloacae complex Not detected Normal NOT DETECTED [facility] Comment on above: Performed By: #### C ADAM #### [facility] [address] [place] [address] Dr. Aissatou Vásquez E. faecalis Not detected Normal NOT DETECTED [facility] Comment on above: Performed By: #### C ADAM #### [facility] [address] [place] [address] Dr. Aissatou Vásquez E. faecium Not detected Normal NOT DETECTED [facility] Comment on above: Performed By: #### C ADAM #### [facility] [address] [place] [address] Dr. Aissatou Vásquez Enterobacteriaceae Detected Critically abnormal NOT DETECTED [facility] Comment on above: Performed By: #### C ADAM #### [facility] [address] [place] [address] Dr. Aissatou Vásquez Escherichia coli Not detected Normal NOT DETECTED [facility] Comment on above: Performed By: #### C ADAM #### [facility] [address] [place] [address] Dr. Aissatou Vásquez H. influenzae Not detected Normal NOT DETECTED [facility] Comment on above: Performed By: #### C ADAM #### [facility] [address] [place] [address] Dr. Aissatou Vásquez IMP Resistant Gene Not detected Normal NOT DETECTED [facility] Comment on above: Performed By: #### C ADAM #### [facility] [address] [place] [address] Dr. Aissatou Vásquez K. oxytoca Not detected Normal NOT DETECTED [facility] Comment on above: Performed By: #### C ADAM #### [facility] [address] [place] [address] Dr. Aissatou Vásquez K. pneumoniae Not detected Normal NOT DETECTED [facility] Comment on above: Performed By: #### C ADAM #### [facility] [address] [place] [address] Dr. Aissatou Vásquez Klebsiella aerogenes Not detected Normal NOT DETECTED [facility] Comment on above: Performed By: #### C ADAM #### [facility] [address] [place] [address] Dr. Aissatou Vásquez KPC Resistant Gene Not detected Normal NOT DETECTED [facility] Comment on above: Performed By: #### C ADAM #### [facility] [address] [place] [address] Dr. Aissatou Vásquez List. monocytogenes Not detected Normal NOT DETECTED [facility] Comment on above: Performed By: #### C ADAM #### [facility] [address] [place] [address] Dr. Aissatou Vásquez Mcr-1 Resistant Gene Not Applicable Normal NOT DETECTE D [facility] Comment on above: Performed By: #### C ADAM #### [facility] [address] [place] [address] Dr. Aissatou Vásquez mecA/C Not Applicable Normal NOT DETECTED [facility] Comment on above: Performed By: #### C ADAM #### [facility] [address] [place] [address] Dr. Aissatou Vásquez mecA/C MREJ Not Applicable Normal NOT DETECTED [facility] Comment on above: Performed By: #### C ADAM #### [facility] [address] [place] [address] Dr. Aissatou Vásquez N. meningitidis Not detected Normal NOT DETECTED [facility] Comment on above: Performed By: #### C ADAM #### [facility] [address] [place] [address] Dr. Aissatou Vásquez NDM Resistant Gene Not detected Normal NOT DETECTED [facility] Comment on above: Performed By: #### C ADAM #### [facility] [address] [place] [address] Dr. Aissatou Vásquez Oxa-48-like Not detected Normal NOT DETECTED [facility] Comment on above: Performed By: #### C ADAM #### [facility] [address] [place] [address] Dr. Aissatou Vásquez Proteus Not detected Normal NOT DETECTED [facility] Comment on above: Performed By: #### C ADAM #### [facility] [address] [place] [address] Dr. Aissatou Vásquez Pseud. aeruginosa Not detected Normal NOT DETECTED [facility] Comment on above: Performed By: #### C ADAM #### [facility] [address] [place] [address] Dr. Aissatou Vásquez S. maltophilia Not detected Normal NOT DETECTED [facility] Comment on above: Performed By: #### C ADAM #### [facility] [address] [place] [address] Dr. Aissatou Vásquez Salmonella Not detected Normal NOT DETECTED [facility] Comment on above: Performed By: #### C ADAM #### [facility] [address] [place] [address] [address] Aissatou Vásquez Seratia marcescens Not detected Normal NOT DETECTED [facility] Comment on above: Performed By: #### C ADAM #### [facility] [address] [place] [address] Dr. Aissatou Vásquez Site: IV Normal [facility] Comment on above: Performed By: #### C ADAM #### [facility] [address] [place] [address] Dr. Aissatou Vásquez Staph. aureus Not detected Normal NOT DETECTED [facility] Comment on above: Performed By: #### C ADAM #### [facility] [address] [place] [address] Dr. Aissatou Vásquez Staph. epidermidis Not detected Normal NOT DETECTED [facility] Comment on above: Performed By: #### C ADAM #### [facility] [address] [place] [address] Dr. Aissatou Vásquez Staph. lugdunensis Not detected Normal NOT DETECTED [facility] Comment on above: Performed By: #### C ADAM #### [facility] [address] [place] [address] Dr. Aissatou Vásquez Staphylococcus Not detected Normal NOT DETECTED [facility] Comment on above: Performed By: #### C ADAM #### [facility] [address] [place] [address] Dr. Aissatou Vásquez Strep. agalactiae Not detected Normal NOT DETECTED [facility] Comment on above: Performed By: #### C ADAM #### [facility] [address] [place] [address] Dr. Aissatou Vásquez Strep. pneumoniae Not detected Normal NOT DETECTED [facility] Comment on above: Performed By: #### C ADAM #### [facility] [address] [place] [address] Dr. Aissatou Vásquez Strep. pyogenes Not detected Normal NOT DETECTED [facility] Comment on above: Performed By: #### C ADAM #### [facility] [address] [place] [address] [address] Aissatou Vásquez Streptococcus Not detected Normal NOT DETECTED [facility] Comment on above: Performed By: #### C ADAM #### [facility] [address] [place] [address] [address] Aissatou Vásquez Akila/B Resist. Gene Not Applicable Normal NOT DETECTED [facility] Comment on above: Performed By: #### C ADAM #### [facility] [address] [place] [address] Dr. Aissatou Vásquez VIM Resistant Gene Not detected Normal NOT DETECTED [facility] Comment on above: Performed By: #### C ADAM #### [facility] [address] [place] [address] Dr. Aissatou Vásquez CBC W MANUAL DIFFon 07-01-20 22 ATYPICAL LYMPH # Normal [facility] Comment on above: Performed By: #### C BCMAN ####[facility] [address] [place], [place] [address]Dr. Aissatou Vásquez ATYPICAL LYMPH % Normal [facility] Comment on above: Performed By: #### C BCMAN ####[facility] [address] [place], [place] [address]Dr. Aissatou Vásquez BAND # 0.4 103/ul Critically high 0.0-0.3 [facility] Comment on above: Performed By: #### C BCMAN ####[facility] [address] [place] [address]Dr. Sheylan Vásquez BAND % 3 % Normal 0-5 [facility] Comment on above: Performed By: #### C BCMAN ####[facility] [address] [place] [address]Dr. Aissatou Vásquez BASOM # 0.00 103/ul Normal 0.00-0.10 [facility] Comment on above: Performed By: #### C BCMAN ####[facility] [address] [place], [place] [address]Dr. Aissatou Vásquez BASOM % 0.0 % Critically low 0.2-2.0 [facility] Comment on above: Performed By: #### C BCMAN ####[facility] [address] [place] [address]Dr. Aissatou Vásquez BLAST # Normal [facility] Comment on above: Performed By: #### C BCMAN ####[facility] [id number] [place] [id number]. Aissatou Vásquez BLAST % Normal [facility] Comment on above: Performed By: #### C BCMAN ####[facility] [id number] [place] [id number]. Aissatou Vásquez CORRECTED WBC Normal 4.0-11.0 [facility] Comment on above: Performed By: #### C BCMAN ####[facility] [address] [place], [place] [address]Dr. Aissatou Vásquez EOS # 0.12 103/ul Normal 0.00-0.70 [facility] Comment on above: Performed By: #### C BCMAN ####[facility] [address] [place] [address]Dr. Aissatou Vásquez EOS% 1.0 % Normal 0.9-7.0 [facility] Comment on above: Performed By: #### C BCMAN ####[facility] [address] [place], [place] [address]Dr. Aissatou Vásquez HCT 46.0 % Normal 42.0-54.0 [facility] Comment on above: Performed By: #### C BCMAN ####[facility] [address] [place] [address]Dr. Aissatou Vásquez HGB 14.6 g/dl Normal 14.0-18.0 [facility] Comment on above: Performed By: #### C BCMAN ####[facility] [address] [place], [place] [address]Dr. Aissatou Vásquez LYMPHM # 0.62 103/ul Critically low 1.20-3.80 The [facility] Comment on above: Performed By: #### C BCMAN ####[facility] [address] [place] [id number]. Aissatou Vásquez LYMPHM% 5.0 % Critically low 20.5-60.0 The [facility] Comment on above: Performed By: #### C ABUNDIO ####[facility] [address] [place] [id number]. Aissatou Vásquez MCH 29.9 pg Normal 25.9-34.0 [facility] Comment on above: Performed By: #### C ABUNDIO ####[facility] [address] [place] [id number]. Aissatou Vásquez MCHC 31.7 g/dl Normal 29.9-35.2 [facility] Comment on above: Performed By: #### C ABUNDIO ####[facility] [address] [place], [place] [address]Dr. Aissatou Vásquez MCV 94.1 fL Critically high 80.0-94.0 [facility] Comment on above: Performed By: #### C ABUNDIO ####[facility] [address] [place], [place] [address]Dr. Aissaotu Vásquez METAMYELOCYTE # Normal [facility] Comment on above: Performed By: #### C ABUNDIO ####[facility] [address] [place], [place] [address]Dr. Aissatou Vásquez METAMYELOCYTE % Normal [facility] Comment on above: Performed By: #### C ABUNDIO ####[facility] [address] [place] [address]Dr. Aissatou Vásquez MONOM# 0.62 103/ul Normal 0.30-0.80 [facility] Comment on above: Performed By: #### C ABUNDIO ####[facility] [address] [place] [id number]. Aissatou Vásquez MONOM% 5.0 % Normal 1.7-12.0 [facility] Comment on above: Performed By: #### C ABUNDIO ####[facility] [address] [place] [address]Dr. Aissatou Vásquez MPV 10.4 fL Normal 9.5-13.5 [facility] Comment on above: Performed By: #### C BCRITCHIE ####[facility] [address] [place], [place] [address]Dt. Aissatou Vásquez MYELOCYTE # Normal [facility] Comment on above: Performed By: #### C BCMAN ####[facility] [address] [place], [place] [address]Fd. Aissatou Vásquez MYELOCYTE % Normal [facility] Comment on above: Performed By: #### C BCMAN ####[facility] [address] [place], [place] [address]Hh. Aissatou Vásquez NRBC Normal [facility] Comment on above: Performed By: #### C ABUNDIO ####[facility] [address] [place] [id number]. Aissatou Vásquez PLT 171 103/ul Normal 150-450 [facility] Comment on above: Performed By: #### C ABUNDIO ####[facility] [address] [place] [id number]. Aissatou Vásquez RBC 4.89 106/ul Normal 4.70-6.10 [facility] Comment on above: Performed By: #### C BCRITCHIE ####[facility] [address] [place] [id number]. Aissatou Vásquez RDW 13.4 % Normal 11.0-15.0 [facility] Comment on above: Performed By: #### C BCRITCHIE ####[facility] [address] [place] [id number]. Aissatou Vásquez SEG # 10.66 103/ul Critically high 1.40-6.50 [facility] Comment on above: Performed By: #### C BCRITCHIE ####[facility] [address] [place], [place] [address]Xa. Aissatou Vásquez SEG % 86.0 % Critically high 43.0-75.0 [facility] Comment on above: Performed By: #### C BCRITCHIE ####[facility] [address] [place], [place] [address]Je. Aissatou Vásquez WBC 12.4 103/ul Critically high 4.0-11.0 [facility] Comment on above: Performed By: #### C ABUNDIO ####[facility] [address] [place], [place] [address]Dr. Aissatou Vásquez CPKon 07-01-2022 CK [Catalytic activity/Vol] 1646 U/L Critically high 39-308 [facility] Comment on above: Performed By: #### L IVER, BMP, HSTROPN #### [facility] [address] [place], [place] [address] [address] Vás[address] CSPINE WO CONon [...] KOKO ROMANO Date: 2022-07-01 19:22 Normal [facility] CT STROKE HEAD WOon 07-01-20 22 [...] BERNADETTE BEDOLLA Date: 2022-07-01 17:37 Normal [facility] CULTURE BLOODon 07-01-2022 Microscopic examination of blood, culture Culture Observations: NO GROWTH AT 5 DAYS. Normal [facility] Comment on above: Performed By: #### B LDCX1 ####[facility] [address] [place] [address]Dr. Aissatou Fahad [facility]on 06-06 SARS-CoV-2 (COVID-19) RNA HALLE+probe Ql (Unsp spec) Not detected Normal NOT DETECTED [facility] Comment on above: Result Comment: When [...] for this test is supported by the [place] of Health and Human Service's declaration that [...] By: #### L CHANNINGER, BMP, HSTROPN #### [facility] [address] [place] [address] Dr. Aissatou Vásquez DRUG SCREEN RAPID (URINE)on 07-01-2022 AMP Negative Normal NEGATIVE [facility] Comment on above: Performed By: #### C ADAM #### [facility] [address] [place] [address] [address] Aissatou Vásquez BAR Negative Normal NEGATIVE [facility] Comment on above: Performed By: #### C ADAM #### [facility] [address] [place] [address] Dr. Aissatou Vásquez BUP Negative Normal NEGATIVE [facility] Comment on above: Performed By: #### C ADAM #### [facility] [address] [place] [address] Dr. Aissatou Vásquez BZO Negative Normal NEGATIVE [facility] Comment on above: Performed By: #### C ADAM #### [facility] [address] [place] [address] [address] Aissatou Vásquez MARYJANE Negative Normal NEGATIVE [facility] Comment on above: Performed By: #### C ADAM #### [facility] [address] [place] [address] Dr. Aissatou Vásquez CUT-OFFS SEE BELOW Normal [facility] Comment on above: Result Comment: AMP [...] ng/mL Performed By: #### C ADAM #### [facility] [address] [place] [address] Dr. Aissatou Vásquez DRUG CUT HEADER DRUG CLASS TEST SYSTEM CUT-OFF CONCENTRATIONS ARE FOLLOWS: Normal [facility] Comment on above: Performed By: #### C ADAM #### [facility] [address] [place] [address] Dr. Aissatou Vásquez mAMP Negative Normal NEGATIVE [facility] Comment on above: Performed By: #### C ADAM #### [facility] [address] [place] [address] [address] Aissatou Vásquez MTD Negative Normal NEGATIVE [facility] Comment on above: Performed By: #### C ADAM #### [facility] [address] [place] [address] Dr. Aissatou Vásquez OPI Negative Normal NEGATIVE [facility] Comment on above: Performed By: #### C ADAM #### [facility] [address] [place] [address] Dr. Aissatou Vásquez OXY Negative Normal NEGATIVE [facility] Comment on above: Performed By: #### C ADAM #### [facility] [address] [place] [address] [address] Aissatou Vásquez PCP Negative Normal NEGATIVE [facility] Comment on above: Performed By: #### C ADAM #### [facility] [address] [place] [address] Dr. Aissatou Vásquez PPX Negative Normal NEGATIVE [facility] Comment on above: Performed By: #### C ADAM #### [facility] [address] [place] [address] Dr. Aissatou Vásquez TCA Negative Normal NEGATIVE [facility] Comment on above: Performed By: #### C ADAM #### [facility] [address] [place] [address] Dr. Aissatou Vásquez THC Negative Normal NEGATIVE [facility] Comment on above: Performed By: #### C ADAM #### [facility] [address] [place] [address] Dr. Aissatou Vásquez ER URINE PROFILEon 12-27-202 2 Bilirubin Ql (U) Negative Normal NEGATIVE [facility] Comment on above: Performed By: #### C ADAM #### [facility] [address] [place] [address] Dr. Aissatou Vásquez Clarity (U) CLEAR Normal CLEAR [facility] Comment on above: Performed By: #### C ADAM #### [facility] [address] [place] [address] Dr. Aissatou Vásquez Color (U) YELLOW Normal YELLOW [facility] Comment on above: Performed By: #### C ADAM #### [facility] [address] [place] [address] Dr. Aissatou BECKWITH A micrscopic examination will be performed if indicated. Normal [facility] Comment on above: Performed By: #### C ADAM #### [facility] [address] [place] [address] Dr. Aissatou Vásquez Glucose Ql (U) Negative Normal NEGATIVE [facility] Comment on above: Performed By: #### C ADAM #### [facility] [address] [place] [address] Dr. Aissatou Vásquez Hemoglobin Ql (U) MODERATE Abnormal NEGATIVE [facility] Comment on above: Performed By: #### C ADAM #### [facility] [address] [place] [address] Dr. Aissatou Vásquez Ketones Ql (U) 15 mg/dl Abnormal NEGATIVE [facility] Comment on above: Performed By: #### C ADAM #### [facility] [address] [place] [address] Dr. Aissatou Vásquez LEUKOCYTES Negative Normal NEGATIVE [facility] Comment on above: Performed By: #### C ADAM #### [facility] [address] [place] [address] Dr. Aissatou Vásquez Nitrite Ql (U) Negative Normal NEGATIVE [facility] Comment on above: Performed By: #### C ADMA #### [facility] [address] [place] [address] Dr. Aissatou Vásquez pH (U) 5.0 [pH] Normal 5-9 [facility] Comment on above: Performed By: #### C ADAM #### [facility] [address] [place] [address] Dr. Aissatou Vásquez SPEC GRAVITY 1.025 Normal 1.005-<=1.025 [facility] Comment on above: Performed By: #### C ADAM #### [facility] [address] [place] [address] Dr. Aissatou Vásquez UA PROTEIN TRACE Normal NEGATIVE/ TRACE [facility] Comment on above: Performed By: #### C ADAM #### [facility] [address] [place] [address] Dr. Aissatou Vásquez UR MICRO IND INDICATED Normal [facility] Comment on above: Performed By: #### C ADAM #### [facility] [address] [place] [address] Dr. Aissatou Vásquez Urobilinogen Qn (U) 0.2 {Ilene'U}/dL Normal 0.2 - 1. 0 [facility] Comment on above: Performed By: #### C ADAM #### [facility] [address] [place] [address] Dr. Aissatou Vásquez LIVER PROFILEon 07-01-2022 Albumin [Mass/Vol] 3.7 g/dL Normal 3.4-5.0 [facility] Comment on above: Performed By: #### L IVER, BMP, HSTROPN #### [facility] [address] [place] [address] Dr. Aissatou Vásquez Albumin/Globulin [Mass ratio] 0.9 {ratio} Normal [facility] Comment on above: Performed By: #### L IVER, BMP, HSTROPN #### [facility] [address] [place] [address] Dr. Aissatou Vásquez ALP [Catalytic activity/Vol] 143 U/L Critically high 46-116 [facility] Comment on above: Performed By: #### L IVER, BMP, HSTROPN #### [facility] [address] [place] [address] Dr. Aissatou Vásquez ALT [Catalytic activity/Vol] 56 U/L Normal 16-63 [facility] Comment on above: Performed By: #### L IVER, BMP, HSTROPN #### [facility] [address] [place] [address] [address] Aissatou Vásquez AST [Catalytic activity/Vol] 87 U/L Critically high 15-37 [facility] Comment on above: Performed By: #### L IVER, BMP, HSTROPN #### [facility] [address] [place] [address] Dr. Aissatou Vásquez BILI, CONJUGATED 0.2 mg/dL Normal 0.0-0.2 [facility] Comment on above: Performed By: #### L IVER, BMP, HSTROPN #### [facility] [address] [place] [address] Dr. Aissatou Vásquez Bilirubin [Mass/Vol] 0.6 mg/dL Normal 0.2-1.0 [facility] Comment on above: Performed By: #### L IVER, BMP, HSTROPN #### [facility] [address] [place] [address] Dr. Aissatou Vásquez Globulin (S) [Mass/Vol] 3.9 g/dL Normal [facility] Comment on above: Performed By: #### L IVER, BMP, HSTROPN #### [facility] [address] [place] [address] Dr. Aissatou Vásquez Protein [Mass/Vol] 7.6 g/dL Normal 6.4-8.2 [facility] Comment on above: Performed By: #### L IVER, BMP, HSTROPN #### [facility] [address] [place] [address] Dr. Aissatou Vásquez MYOGLOBINon 07-01-2022 SARAH 2042 ng/mL Critically high 16-96 [facility] Comment on above: Performed By: #### L IVER, BMP, HSTROPN #### [facility] [address] [place] [address] Dr. Aissatou Vásquez PROF CHEM 8 (BAS METB)on Anion gap [Moles/Vol] 18.5 mmol/L Normal [facility] Comment on above: Performed By: #### L IVER, BMP, HSTROPN #### [facility] [address] [place] [address] [address] Aissatou Vásquez Calcium [Mass/Vol] 9.8 mg/dL Normal 8.5-10.1 [facility] Comment on above: Performed By: #### L IVER, BMP, HSTROPN #### [facility] [address] [place] [address] [address] Aissatou Vásquez Chloride [Moles/Vol] 104 mmol/L Normal 98-107 [facility] Comment on above: Performed By: #### L IVER, BMP, HSTROPN #### [facility] [address] [place] [address] Dr. Aissatou Vásquez CO2 [Moles/Vol] 24.3 mmol/L Normal 21.0-32.0 [facility] Comment on above: Performed By: #### L IVER, BMP, HSTROPN #### [facility] [address] [place] [address] [address] Aissatou Vásquez Creatinine [Mass/Vol] 1.74 mg/dL Critically high 0.70-1.30 [facility] Comment on above: Performed By: #### L IVER, BMP, HSTROPN #### [facility] [address] [place] [address] Dr. Aissatou Vásquez EGFR-AF SYRIAN 46 mL/min/1.73m2 Critically low >=60 [facility] Comment on above: Performed By: #### L IVER, BMP, HSTROPN #### [facility] [address] [place] [address] Dr. Aissatou Vásquez EGFR-NON AF SYRIAN 38 mL/min/1.73m2 Critically low >=60 [facility] Comment on above: Performed By: #### L IVER, BMP, HSTROPN #### [facility] [address] [place] [address] Dr. Aissatou Vásquez Glucose [Mass/Vol] 115 mg/dL Critically high 74-106 [facility] Comment on above: Performed By: #### L IVER, BMP, HSTROPN #### [facility] [address] [place] [address] [address] Aissatou Vásquez Potassium [Moles/Vol] 4.8 mmol/L Normal 3.5-5.1 [facility] Comment on above: Performed By: #### L IVER, BMP, HSTROPN #### [facility] [address] [place] [address] [address] Aissatou Vásquez Sodium [Moles/Vol] 142 mmol/L Normal 136-145 [facility] Comment on above: Performed By: #### L IVER, BMP, HSTROPN #### [facility] [address] [place] [address] [address] Aissatou Vásquez Urea nitrogen [Mass/Vol] 54.0 mg/dL Critically high 7.0-18.0 [facility] Comment on above: Performed By: #### L IVER, BMP, HSTROPN #### [facility] [address] [place] [address] [address] Aissatou Vásquez Urea nitrogen/Creatinine [Mass ratio] 31.0 mg/mg Normal [facility] Comment on above: Performed By: #### L IVER, BMP, HSTROPN #### [facility] [address] [place] [address] [address] Aissatou Vásquez TROPONIN, HIGH SENSITIVITYon 07-01-2022 HSTROP 102.3 pg/mL Critically high 4.0-76.1 [facility] Comment on above: Result Comment: CUT- OFF POINTS HAVE BEEN ESTABLISHED BASED ON THE FOURTH UNIVERSAL DEFINITIONS OF MYOCARDIAL INFARCTION. THE UPPER REFERENCE LIMIT (URL) OF TROPONIN, DEFINED THE 99TH PERCENTILE OF cTnI DISTRIBUTION IN A REFERENCE POPULATION, HAS BEEN CONFIRMED THE DECISION THRESHOLD FOR [place] DIAGNOSIS. Performed By: #### H STROPN ####[facility] [address] [place] [address]Dr. Aissatou Vásquez HSTROP 132.4 pg/mL Critically high 4.0-76.1 [facility] Comment on above: Result Comment: CUT- OFF POINTS HAVE BEEN ESTABLISHED BASED ON THE FOURTH UNIVERSAL DEFINITIONS OF MYOCARDIAL INFARCTION. THE UPPER REFERENCE LIMIT (URL) OF TROPONIN, DEFINED THE 99TH PERCENTILE OF cTnI DISTRIBUTION IN A REFERENCE POPULATION, HAS BEEN CONFIRMED THE DECISION THRESHOLD FOR [place] DIAGNOSIS. Performed By: #### L DHARA WAITE, HSTROPN #### [facility] [address] [place] [address] Dr. Aissatou Vásquez TSHon 07-01-2022 TSH 7.840 uIU/mL Critically high 0.358-3.740 [facility] Comment on above: Performed By: #### L DHARA WAITE, HSTROPN #### [facility] [address] [place] [address] Dr. Aissatou Vásquez URINE MICROSCOPIC ONLYon BACTERIA NONE SEEN Normal NONE SEEN [facility] Comment on above: Performed By: #### C ADAM #### [facility] [address] [place] [address] Dr. Aissatou Vásquez Bacteria identified Cx Nom (U) NOT INDICATED Normal [facility] Comment on above: Performed By: #### C ADAM #### [facility] [address] [place] [address] Dr. Aissatou Vásquez CAST NONE SEEN Normal NONE SEEN [facility] Comment on above: Performed By: #### C ADAM #### [facility] [address] [place] [address] Dr. Aissatou Vásquez Crystals LM Nom (Urine sed) NONE SEEN Normal NONE SEEN [facility] Comment on above: Performed By: #### C ADAM #### [facility] [address] [place] [address] Dr. Aissatou Vásquez Epithelial cells LM Ql (Urine sed) RARE Normal NONE SEEN /RARE [facility] Comment on above: Performed By: #### C ADAM #### [facility] [address] [place] [address] Dr. Aissatou Vásquez MUCOUS TRACE Abnormal NONE SEEN [facility] Comment on above: Performed By: #### C ADAM #### [facility] [address] [place] [address] Dr. Aissatou Vásquez RBC 2-5 Abnormal 0-2 [facility] Comment on above: Performed By: #### C ADAM #### [facility] [address] [place] [address] Dr. Aissatou Vásquez WBC 2-5 Abnormal NONE SEEN [facility] Comment on above: Performed By: #### C ADAM #### [facility] [address] [place] [address] Dr. Aissatou Vásquez XR CHEST 1 Von [...] Jhony TOTH Date: 2022-07-01 18:01 Normal [facility] AMMONIAon 06-05-2022 Ammonia (P) [Mass/Vol] ug/dL Critically low [facility] Comment on above: Performed By: #### L IVER, BMP, HSTROPN #### [facility] [address] [place] [address] Dr. Aissatou Vásquez BNPon 06-05-2022 Natriuretic peptide B (Bld) [Mass/Vol] 672.0 pg/mL Normal <=1,800.0 [facility] Comment on above: Performed By: #### T SH, CMP, FT3, BNP, T4, LIPID #### [facility] [address] [place] [address] [address] Aissatou Vásquez CBC AUTO DIFFon 06-05-2022 BASO # 0.0 103/ul Normal 0.0-0.1 [facility] Comment on above: Performed By: #### C ADAM #### [facility] [address] [place] [address] Dr. Aissatou Vásquez Basophils/100 WBC (Bld) 0.6 % Normal 0.2-2.0 [facility] Comment on above: Performed By: #### C ADAM #### [facility] [address] [place] [address] Dr. Aissatou Vásquez EO # 0.0 103/ul Normal 0.0-0.7 [facility] Comment on above: Performed By: #### C ADAM #### [facility] [address] [place] [address] Dr. Aissatou Vásquez Eosinophils/100 WBC (Bld) 0.6 % Critically low 0.9-7.0 [facility] Comment on above: Performed By: #### C ADAM #### [facility] [address] [place] [address] Dr. Aissatou Vásquez Erythrocyte distribution width (RBC) [Ratio] 13.7 % Normal 11.0-15.0 [facility] Comment on above: Performed By: #### C ADAM #### [facility] [address] [place] [address] Dr. Aissatou Vásquez Hematocrit (Bld) [Volume fraction] 40.7 % Critically low 42.0-54.0 [facility] Comment on above: Performed By: #### C ADAM #### [facility] [address] [place] [address] Dr. Aissatou Vásquez Hemoglobin (Bld) [Mass/Vol] 12.8 g/dL Critically low 14.0-18.0 [facility] Comment on above: Performed By: #### C ADAM #### [facility] [address] [place] [address] Dr. Aissatou Vásquez IG # 0.01 10e3/ul Normal 0.00-0.03 [facility] Comment on above: Performed By: #### C ADAM #### [facility] [address] [place] [address] Dr. Aissatou Vásquez IG % 0.2 % Normal 0.0-0.5 [facility] Comment on above: Performed By: #### C ADAM #### [facility] [address] [place] [address] Dr. Aissatou Vásquez LYMPH # 1.7 103/ul Normal 1.2-3.8 [facility] Comment on above: Performed By: #### C ADAM #### [facility] [address] [place] [address] Dr. Aissatou Vásquez Lymphocytes/100 WBC (Bld) 27.5 % Normal 20.5-60.0 [facility] Comment on above: Performed By: #### C ADAM #### [facility] [address] [place] [address] Dr. Aissatou Vásquez MANUAL DIFF REQ NO Normal [facility] Comment on above: Performed By: #### C ADAM #### [facility] [address] [place] [address] Dr. Aissatou Vásquez MCH (RBC) [Entitic mass] 30.3 pg Normal 25.9-34.0 [facility] Comment on above: Performed By: #### C ADAM #### [facility] [address] [place] [address] Dr. Aissatou Vásquez MCHC (RBC) [Mass/Vol] 31.4 g/dL Normal 29.9-35.2 [facility] Comment on above: Performed By: #### C ADAM #### [facility] [address] [place] [address] Dr. Aissatou Vásquez MCV (RBC) [Entitic vol] 96.2 fL Critically high 80.0-94.0 [facility] Comment on above: Performed By: #### C ADAM #### [facility] [address] [place] [address] Dr. Aissatou Vásquez MONO # 0.6 103/ul Normal 0.3-0.8 [facility] Comment on above: Performed By: #### C ADAM #### [facility] [address] [place] [address] Dr. Aissatou Vásquez Monocytes/100 WBC (Bld) 9.9 % Normal 1.7-12.0 [facility] Comment on above: Performed By: #### C ADAM #### [facility] [address] [place] [address] Dr. Aissatou Vásquez NEUT # 3.8 103/ul Normal 1.4-6.5 [facility] Comment on above: Performed By: #### C ADAM #### [facility] [address] [address] [address] Aissatou Vásquez Neutrophils/100 WBC (Bld) 61.2 % Normal 43.0-75.0 [facility] Comment on above: Performed By: #### C ADAM #### [facility] [address] [place] [address] Dr. Aissatou Vásquez Platelet mean volume (Bld) [Entitic vol] 9.3 fL Critically low 9.5-13.5 [facility] Comment on above: Performed By: #### C ADAM #### [facility] [address] [place] [address] Dr. Aissatou Vásquez PLT 218 103/ul Normal 150-450 [facility] Comment on above: Performed By: #### C ADAM #### [facility] [address] [place] [address] Dr. Aissatou Vásquez RBC 4.23 106/ul Critically low 4.70-6.10 [facility] Comment on above: Performed By: #### C ADAM #### [facility] [address] [place] [address] Dr. Aissatou Vásquez WBC 6.3 103/ul Normal 4.0-11.0 [facility] Comment on above: Performed By: #### C ADAM #### [facility] [address] [place] [address] Dr. Aissatou Vásquez FREE T3on 06-05-2022 FREE T3 1.80 pg/mlL Critically low 2.18-3.98 [facility] Comment on above: Performed By: #### T SH, CMP, FT3, BNP, T4, LIPID #### [facility] [address] [place] [address] Dr. Aissatou Vásquez GLYCOHEMOGLOBIN A1Con 2021 ADA RECOMMENDATION SEE BELOW Normal [facility] Comment on above: Result Comment: ADA RECOMMENDED LIMIT 4.0 - 6.0 ADA THERAPEUTIC TARGET < 7.0 ACTION SUGGESTED > 7.0 Performed By: #### L IVER, BMP, HSTROPN #### [facility] [address] [place] [address] Dr. Aissatou Vásquez Glucose [Mass/Vol] 117 mg/dL Normal [facility] Comment on above: Performed By: #### L IVER, BMP, HSTROPN #### [facility] [address] [address] [address] Aissatou Vásquez HbA1c (Bld) [Mass fraction] 5.7 % Normal 4.5-6.2 [facility] Comment on above: Performed By: #### L IVER, BMP, HSTROPN #### [facility] [address] [address] [address] Aissatou Vásquez IRONon 06-05-2022 Iron [Mass/Vol] 76.0 ug/dL Normal 65.0-175.0 [facility] Comment on above: Performed By: #### P SASC, VITAD, IRON, B12FOL ####[facility] [address] [address]DrBud Vásquez LIPID PROFILEon 06-05-2022 CHOL-HDL RATIO NORM SEE BELOW Normal [facility] Comment on above: Result Comment: 3.3 - 4.4 LOW RISK 4.4 - 7.1 AVERAGE RISK 7.1 - 11.0 MODERATE RISK >11.0 HIGH RISK Performed By: #### T SH, CMP, FT3, BNP, T4, LIPID ####[facility] [address] [address]DrBud Vásquez Cholesterol [Mass/Vol] 133 mg/dL Normal <=200 [facility] Comment on above: Performed By: #### T SH, CMP, FT3, BNP, T4, LIPID ####[facility] [address] [address]Dr. Aissatou Vásquez Cholesterol in HDL [Mass/Vol] 79 mg/dL Critically high 40-60 [facility] Comment on above: Performed By: #### T SH, CMP, FT3, BNP, T4, LIPID ####[facility] [address] [address]DrBud Vásquez Cholesterol in LDL [Mass/Vol] 43.6 mg/dL Normal [facility] Comment on above: Performed By: #### T SH, CMP, FT3, BNP, T4, LIPID ####[facility] [address] [place], [place] [address]Hx. Aissatou Vásquez Cholesterol.total/Cho lesterol in HDL [Mass ratio] 1.7 {ratio} Normal [facility] Comment on above: Performed By: #### T SH, CMP, FT3, BNP, T4, LIPID ####[facility] [address] [place], [place] [address]Lc. Aissatou Vásquez HDL NORMAL > or = 60 mg/dl - LO W CARDIOVASCULAR RISK <40 mg/dl - HIGH CARDIOVASCULAR RISK Normal [facility] Comment on above: Performed By: #### T SH, CMP, FT3, BNP, T4, LIPID ####[facility] [address] [id number]. Aissatou Vásquez LDL CALC NORMAL SEE BELOW Normal [facility] Comment on above: Result Comment: <100 mg/dl OPTIMAL 100 - 129 mg/dl NEAR OR ABOVE OPTIMAL 130 - 159 mg/dl BORDERLINE HIGH 160 - 189 mg/dl HIGH >190 mg/dl VERY HIGH Performed By: #### T SH, CMP, FT3, BNP, T4, LIPID ####[facility] [address] [id number]. Aissatou Vásquez Triglyceride [Mass/Vol] 52 mg/dL Normal <=150 [facility] Comment on above: Performed By: #### T SH, CMP, FT3, BNP, T4, LIPID ####[facility] [address] [id number]. Aissatou Vásquez VLDL CALC 10.4 mg/dL Normal [facility] Comment on above: Performed By: #### T SH, CMP, FT3, BNP, T4, LIPID ####[facility] [address] [id number]. Aissatou Vásquez PROF 14(COMP METB)on 022 Albumin [Mass/Vol] 4.0 g/dL Normal 3.4-5.0 [facility] Comment on above: Performed By: #### T SH, CMP, FT3, BNP, T4, LIPID ####[facility] [address] [address]Dr. Aissatou Vásquez Albumin/Globulin [Mass ratio] 1.1 {ratio} Normal [facility] Comment on above: Performed By: #### T SH, CMP, FT3, BNP, T4, LIPID ####[facility] [address] [address]Dr. Aissatou Vásquez ALP [Catalytic activity/Vol] 137 U/L Critically high 46-116 [facility] Comment on above: Performed By: #### T SH, CMP, FT3, BNP, T4, LIPID ####[facility] [address] [address]Dr. Aissatou Vásquez ALT [Catalytic activity/Vol] 18 U/L Normal 16-63 [facility] Comment on above: Performed By: #### T SH, CMP, FT3, BNP, T4, LIPID ####[facility] [address] [address]Dr. Sheysarah Vásquez Anion gap [Moles/Vol] 11.1 mmol/L Normal [facility] Comment on above: Performed By: #### T SH, CMP, FT3, BNP, T4, LIPID ####[facility] [address] [address]Dr. Aissatou Vásquez AST [Catalytic activity/Vol] 9 U/L Critically low 15-37 [facility] Comment on above: Performed By: #### T SH, CMP, FT3, BNP, T4, LIPID ####[facility] [address] [address]Dr. Aissatou Vásquez Bilirubin [Mass/Vol] 0.3 mg/dL Normal 0.2-1.0 [facility] Comment on above: Performed By: #### T SH, CMP, FT3, BNP, T4, LIPID ####[facility] [address] [place], [place] [address]Dr. Sheysarah Vásquez Calcium [Mass/Vol] 9.4 mg/dL Normal 8.5-10.1 [facility] Comment on above: Performed By: #### T SH, CMP, FT3, BNP, T4, LIPID ####[facility] [address] [address]Dr. Aissatou Vásquez Chloride [Moles/Vol] 102 mmol/L Normal 98-107 [facility] Comment on above: Performed By: #### T SH, CMP, FT3, BNP, T4, LIPID ####[facility] [address] [address]Dr. Aissatou Vásquez CO2 [Moles/Vol] 29.7 mmol/L Normal 21.0-32.0 [facility] Comment on above: Performed By: #### T SH, CMP, FT3, BNP, T4, LIPID ####[facility] [address] [place], [place] [address]Dr. Aissatou Vásquez Creatinine [Mass/Vol] 1.62 mg/dL Critically high 0.70-1.30 [facility] Comment on above: Performed By: #### T SH, CMP, FT3, BNP, T4, LIPID ####[facility] [address] [place], [place] [address]Dr. Aissatou Vásquez EGFR-AF SYRIAN 50 mL/min/1.73m2 Critically low >=60 [facility] Comment on above: Performed By: #### T SH, CMP, FT3, BNP, T4, LIPID ####[facility] [address] [place], [place] [address]Dr. Aissatou Vásquez EGFR-NON AF SYRIAN 41 mL/min/1.73m2 Critically low >=60 [facility] Comment on above: Performed By: #### T SH, CMP, FT3, BNP, T4, LIPID ####[facility] [address] [place], [place] [address]Dr. Aissatou Vásquez Globulin (S) [Mass/Vol] 3.8 g/dL Normal [facility] Comment on above: Performed By: #### T SH, CMP, FT3, BNP, T4, LIPID ####[facility] [address] [place], [place] [address]Dr. Aissatou Vásquez Glucose [Mass/Vol] 86 mg/dL Normal 74-106 [facility] Comment on above: Performed By: #### T SH, CMP, FT3, BNP, T4, LIPID ####[facility] [address] [address]Dr. Aissatou Vásquez Potassium [Moles/Vol] 4.8 mmol/L Normal 3.5-5.1 [facility] Comment on above: Performed By: #### T SH, CMP, FT3, BNP, T4, LIPID ####[facility] [address] [address]Dr. Aissatou Vásquez Protein [Mass/Vol] 7.8 g/dL Normal 6.4-8.2 [facility] Comment on above: Performed By: #### T SH, CMP, FT3, BNP, T4, LIPID ####[facility] [address] [address]Dr. Aissatou Vásquez Sodium [Moles/Vol] 138 mmol/L Normal 136-145 [facility] Comment on above: Performed By: #### T SH, CMP, FT3, BNP, T4, LIPID ####[facility] [address] [address]Dr. Aissatou Vásquez Urea nitrogen [Mass/Vol] 41.0 mg/dL Critically high 7.0-18.0 [facility] Comment on above: Performed By: #### T SH, CMP, FT3, BNP, T4, LIPID ####[facility] [address] [address]Dr. Aissatou Vásquez Urea nitrogen/Creatinine [Mass ratio] 25.3 mg/mg Normal [facility] Comment on above: Performed By: #### T SH, CMP, FT3, BNP, T4, LIPID ####[facility] [address] [address]Dr. Aissatou Vásquez T4on 06-05-2022 T4 [Mass/Vol] 9.70 ug/dL Normal 4.50-12.10 [facility] Comment on above: Performed By: #### T SH, CMP, FT3, BNP, T4, LIPID #### [facility] [address] [address] [address] Aissatou Vásquez TSHon 06-05-2022 TSH 2.525 uIU/mL Normal 0.358-3.740 [facility] Comment on above: Performed By: #### T SH, CMP, FT3, BNP, T4, LIPID ####[facility] [address] [id number]. Aissatou Vásquez VIT B12 AND FOLATEon 022 Cobalamin (Vitamin B12) [Mass/Vol] 1004.0 pg/mL Critically high 193.0-986.0 [facility] Comment on above: Performed By: #### P SASC, VITAD, IRON, B12FOL ####[facility] [address] [id number]. Aissatou Vásquez FOLATE 6.10 ng/mL Critically low 8.60-58.90 [facility] Comment on above: Performed By: #### P SASC, VITAD, IRON, B12FOL ####[facility] [address] [address]Dr. Aissatou Vásquez VITAMIN D 25 OHon 06-05-2022 VIT D 25-OH 31.8 ng/mL Normal [facility] Comment on above: Performed By: #### P SASC, VITAD, IRON, B12FOL ####[facility] [address] [address]Dr. Aissatou Vásquez VIT D RANGES SEE BELOW Normal [facility] Comment on above: Result Comment: <20 ng/mL Vit D deficient 20 - <30 ng/mL Vit D insufficient 30 - 100 ng/mL Vit D sufficient >100 ng/mL Potential Toxicity Performed By: #### P SASC, VITAD, IRON, B12FOL ####[facility] [address] [id number]. Aissatou Vásquez Coding Summary.on 01-23-2017 Coding Summary. CODING DATE: 01/23/2017 FINAL [facility] STATUS: Home (Routine DC) PAYOR: [...] [place] Date Saved: 01/23/2017 10:07 am Normal [facility] Creatinineon 01-22-2017 Creatinine 1.0 mg/dL Normal 0.5-1.3 [facility] Comment on above: Performed By: #### 2 [id number], [id number] ####[facility] [address] [place] [address] eGFRon 01-22-2017 eGFR (black) mL/min/{1.73_m2} Normal >=59 [facility] Comment on above: Order Comment: Order added by Discern Expert. Result Comment: eGFR is race adjusted. AA=. Performed By: #### 2 [id number], [id number] ####[id number] [place] [address] eGFR (non-black) mL/min/{1.73_m2} Normal >=59 [facility] Comment on above: Order Comment: Order added by Discern Expert. Result Comment: Race Relations Professor matt kidney disease could be indicated at eGFR's of less than 60 mL/min/1.73m2. Kidney failure is indicated at less than 15 mL/min/1.73m2. Performed By: #### 2 [id number], [id number] ####[facility] [address] [place] [address] Vital Signs Date Time Vital Sign Value Performing Clinician Luci jacob 03-23-2023 13:55-0400 Diastolic blood pressure 68 mm[Hg] Jodi Banerjee DO Work Phone: [facility] 03-23-2023 13:55-0400 Heart rate 51 /min Jodi Banerjee DO Work Phone: [facility] 03-23-2023 13:55-0400 Systolic blood pressure 151 mm[Hg] Jodi Banerjee DO Work Phone: [facility] 08-27-2022 13:12-0500 Diastolic blood pressure 70 mm[Hg] Jodi Banerjee DO Work Phone: [facility] 08-27-2022 13:120500 Heart rate 69 /min Gonormanfrantz Adameaure DO Work Phone: [facility] 08-27-2022 13:12-0500 Systolic blood pressure 156 mm[Hg] Jodi Banerjee DO Work Phone: [facility] Encounters Encounter Date Encounter Type Care Provider Facility Start: 08-11-2023 End: 08-12-2023 ambulatory PIPE HOPKINS [facility] Start: 07-23-2023 End: 07-23-2023 ambulatory AMANDA IRBY Not Available Start: 06-24-2023 End: 06-24-2023 ambulatory [facility] Start: 03-23-2023 End: 03-23-2023 ambulatory JODI BANERJEE Facility:[facility] Start: 03-23-2023 End: 03-23-2023 Patient encounter procedure Jodi Banerjee DO Work Phone: Neurology Comment on above: Altered mental statu s, unspecified altered mental status type (Primary Dx); Memory loss Start: 03-23-2023 Telephone encounter Rudi Bnaerjee DO Work Phone: Neurology Start: 12-25-2022 End: 12-26-2022 ambulatory [facility] Start: 10-27-2022 End: 10-28-[address] PIPE HOPKINS . Facility:[facility] Start: 09-24-2022 End: 09-24-[address] PIPE HOPKINS . Facility: Start: 09-22-2022 End: 09-22-2022 ambulatory [facility] Start: 08-27-2022 End: 08-28-2022 ambulatory PIPE HOPKINS Facility:[facility] Start: 08-27-2022 End: 08-27-2022 Patient encounter [...] Start: 06-25-2017 End: 06-26-2017 Ambulatory DEFAULT PHYSICIAN Facility[facility] Start: 01-22-2017 End: 01-23-2017 Ambulatory SHONDA ALTAMIRANO Facility:[facility] Start: 05-27-2011 Patient encounter status Jodi Banerjee DO Work Phone: [facility] Work Phone: Procedures Date Procedure Procedure Detail Performing Clinician Start: 06-05-[address] ORTIZ HOPKINS . Comment on above: Performed By: #### P SASC, VITAD, IRON, B12FOL ####[facility] [address] [place], [place] [address]CkBud Vásquez Start: 02-20-2020 History of coronary artery bypass grafting S/P CABG (coronary artery bypass graft), PARRA to the LAD, SVG to D1, SVG to OM1, SVG to OM 2, inverted Y grafted PLV and posterior descending artery. Jodi Banerjee DO Work Phone: Plan of Treatment Date Care Activity Detail Author Start: 03-06-2023 Influenza vaccination Influenza Vacc ine (#1) [facility] Start: 08-27-2022 End: 10-27-2022 25-hydroxyvitamin D3 [Mass/volume] in Serum or Plasma [facility] Work Phone: Comment on above: Expected: 08/27/2022 , Expires: 10/27/2022 Start: 08-27-2022 End: 10-27-2022 SYPHILIS TOTAL W/REFLEX [facility] Work Phone: Comment on above: Expected: 08/27/2022 , Expires: 10/27/2022 Start: 07-06-2022 ADVANCE DIRECTIVE DISCUSSION ADVANCE DIRECTIVE DISCUSSION [facility] Start: 07-06-2022 DEPRESSION ASSESSMENT DEPRESSION ASS ESSMENT [facility] Start: 03-06-2022 Influenza vaccination INFLUENZA (#1) [facility] Start: 12-17-2019 [facility]ABET[facility]CREEN [facility] Start: 12-17-2019 Diabetes Screening Diabetes Screenin g [facility] Start: 05-21-2012 Hepatitis B surface antibody level LDL CHOLESTEROL [facility] Start: 2003 Pneumococcal Vaccine : 65+ (1 - PCV) Pneumococcal Vaccine: 65+ (1 - PCV) [facility] Start: 2003 PNEUMOCOCCAL: 65+ (1 - PCV) PNEUMOCOCCAL: 65+ (1 - PCV) [facility] Start: 1988 SHINGRIX VACCINE (1 of 2) SHINGRIX VACCINE (1 of 2) [facility] Start: 1957 Urine microalbumin profile [facility] Start: 02-18-1939 COVID-19 VACCINE (#1) COVID-19 VACCI NE (#1) [facility] Immunizations Immunization Date Immunization Notes Care Provider Jewell molina 06-18-2017 influenza virus vaccine, unspecified formulation Jodi Banerjee DO Work Phone: [facility] Payers Date Payer Category Payer Medicare [id number] 2016 Private Health Insurance [facility] AARP SUPPLEMENT [id number] 2016-Present [phone] [address] [facility] [place] [address] Indemnity [id number] 2003 Medicare MEDICARE MEDICAR E A AND B [id number] 2003-Present [phone] [address] [address] [place] [address] Medicare [id number] 1959 Medicaid [id number] 1959 Medicare [id number] 1959 Unknown [id number] 1938 Unknown [id number]. 593 1938 Unknown [id number] [id number]. 593 1938 Unknown [id number] [id number]. 593 1938 Unknown [id number] [id number]. 593 1938 Unknown [id number] [id number]. 593 1938 Unknown [id number] [id number]. 593 1938 Unknown [id number] [id number]. 593 1938 Unknown [id number] [id number]. 593 1938 Unknown [id number] [id number]. 1259 1938 Unknown [id number] [id number]. 1286 Unknown Social History Date Type Detail Facility Start: 08-27-2022 Tobacco smoking stat us IDIS Ex-smoker [facility] History of tobacco use Current smoker 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 [facility] End: 06-02-1971 History of tobacco use User of smokeless tobacco [facility] Start: 08-27-2022 End: 03-23-2023 Alcohol intake Current drinker of alcohol (finding) [facility] Start: 08-27-2022 Tobacco Comment quit 40 yrs ago [facility] Start: 05-21-2011 Alcohol Comment He drinks 4 gl asses of red wine weekly [facility] Start: 1940 Sex Assigned At Not on file [facility] Start: 03-23-2023 Tobacco use panel [facility] National Score (1-10 0), lower number is lower risk 52 [facility] Clinical Notes 05-28-2011 to 06-24-2023 Telephone Encounter - Terri Santos - 03/23/2023 3:27 PM EDTPatient Jodi Vernon, - 03/23/2023 1:46 PM EDTChgino Banerjee, - 08/27/2022 1:12 PM EST Note Date & Type Note Facility 06-24-2023 Note [place] [facility] Subjective Leanna Nelson is a 82 y.o. year old male patient being seen for 6 mo follow up CAD, hypertension, chronic diastolic heart failure, and carotid artery stenosis. Had routine labs in Mar 2023. Doing well from cardiac standpoint. No recurrent syncope. Patient Active Problem List Diagnosis Chronic diastolic heart failure (CMS/HCC) PAC (premature atrial contraction) Coronary artery disease involving [place] coronary artery of [place] heart without angina pectoris Hx of CABG [...] , Rfl: multivitamin (more content not included)... [facility] 03-23-2023 Note HNO ID: [id number] Author: Jodi Banerjee, DO Service: ? Author Type: Physician Type: Progress Notes Filed: 03/23/2023 2:41 PM Note Text: [facility] Neurologic Rea Follow-up visit March 23, 2023 HPI: Overall [...] encounter he has moved and low lives [facility]. He states he does not [...] mainly his brother. He has seen by manager interventional in 01/2023 with suggestion that he get a hearing aide but he refuses. After his last encounter he has followed up with cardiology concerning his heart rate that was auscultated on last encounter. They checked his heart rhythm and thought it was appropriate. This was as via physician in [place]. They deny other changes to his health and/or medications except for the above since our last encounter. PAST MEDICAL HISTORY Diagnosis Date Arthritis Carotid stenosis Coronary artery disease Coronary atherosclerosis of unspecified type of vessel, [place] or graft 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 Dyslipidemia Hypertension Hypertension Hypothyroid Lumbar disc disease Unspecified hypothyroidism Hypothyroidism PAST SURGICAL HISTORY Procedure Laterality Date PAST SURGICAL HISTORY OF CABG times 6 left internal thoracic artery to the [id number] left anterior descending artery, reverse saphenous vein [...] Take 5 (more content not included)... [facility] 03-23-2023 Miscellaneous Notes 03/23/2023 After visit Summary faxed to Dr Hopkins with confirmation received. PSS forgot to have pt complete release of information forms. This nurse has placed 2 copies in [place] mail for pt to complete and take to facility to release information to our office. POA was advised via voice message to send a [employer] msg if he had any further question. Terri Santos Lpn documented in this encounter [facility] 03-23-2023 Jodi Madrigal DO - 03/23/2023 2:40 PM EDT Please sign records release for last blood test results. documented in this encounter [facility] 03-23-2023 History of Present illness Narrative [facility] Neurologic Rea Follow-up visit March 23, 2023 HPI: Overall [...] encounter he has moved and low lives [facility]. He states he does not [...] mainly his brother. He has seen by manager interventional in 01/2023 with suggestion that he get a hearing aide but he refuses. After his last encounter he has followed up with cardiology concerning his heart rate that was auscultated on last encounter. They checked his heart rhythm and thought it was appropriate. This was as via physician in [place]. They deny other changes to his health and/or medications except for the above since our last encounter. PAST MEDICAL HISTORY Diagnosis Date Arthritis Carotid stenosis Coronary artery disease Coronary atherosclerosis of unspecified type of vessel, crooked creek or graft 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 Dyslipidemia Hypertension Hypertension Hypothyroid Lumbar disc disease Unspecified hypothyroidism Hypothyroidism PAST SURGICAL HISTORY Procedure Laterality Date PAST SURGICAL HISTORY OF CABG times 6 left internal thoracic artery to the fda-et-aptbgm left anterior descending artery, reverse saphenous vein [...] with more than 50% of the total fcuh-ve-jeky time of the visit in counseling / coordination of care. documented in this encounter [facility] 12-25-2022 Note [place] [facility] - [facility] Subjective Leanna Nelson is a 82 y.o. year old male patient being seen for Follow-up (3 month follow up ) Patient Active Problem List Diagnosis Chronic diastolic heart failure (CMS/HCC) PAC (premature atrial contraction) Coronary artery disease involving crooked creek coronary artery of cro[place] creek heart without angina pectoris Hx of CABG [...] , Rfl: choleca (more content not included)... [facility] 09-22-2022 Note Cardiovascular Medic ine [facility] SUBJECTIVE Chief Complaint Patient presents with office visit brother made appt had appt with neuro thought they heard something when listening to heart. confirmed Leanna Nelson is a 82 y.o. male here for follow-up. HPI PMHx: CAD s/p CABG 2010, HTN, HLD, former tobacco use, hypothyroidism, SAGAR (mild) FMHx: brother hx of [place]/CAD and HFrEF 09/22/2022 He is accompanied by his brother. He was admitted back in 06/2022 d/t a fall, treated for rhabdo. He currently lives in a [facility] facility. 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 [facility] 09-22-2022 Note Review of Systems Cardiovascular: Positive for leg swelling and near-syncope. Negative for chest pain, claudication, cyanosis, dyspnea on exertion, irregular heartbeat, orthopnea, palpitations, paroxysmal nocturnal dyspnea and syncope. Bilateral leg swelling [facility] 08-27-2022 Note HNO ID: [id number] Author: Jodi Banerjee, DO Service: ? Author Type: Physician Type: Progress Notes Filed: 08/27/2022 2:35 PM Note Text: [facility] Neurologic Rea New Patient Consultation August 27, 2022 HPI: [...] there. 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 [facility] 08-27-2022 History of Present illness Narrative [facility] Neurologic Rea New Patient Consultation August 27, 2022 HPI: [...] there. 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 documented in this encounter [facility] 05-28-2011 History of Past i llness Narrative Problem Noted Date Resolved Date Stress hyperglycemia 05/28/2011 06/01/2011 Overview: RHI gtt per ICU protocol Mechanically assisted ventilation 05/28/2011 05/29/2011 Overview: Extubated 05/29/11 no increased work of breathing Hypotension 05/28/2011 05/30/2011 Overview: Levo off this morning, hemodynamically stable. documented as of this encounter (statuses as of 08/27/2022) [facility] History of Past illness Narrative* Problem Noted Date Diagnosed Date Resolved Date Stress hyperglycemia 05/28/2011 011 Overview: RHI gtt per ICU protocol Mechanically assisted ventilation 05/28/2011 05/29/2011 Overview: Extubated 05/29/11 no increased work of breathing Hypotension 05/28/2011 05/30/2011 Overview: Levo off this morning, hemodynamically stable. documented as of this encounter (statuses as of 03/24/2023) [facility] History of Past illness Narrative* Problem Noted Date Diagnosed Date Resolved Date Stress hyperglycemia 05/28/2011 011 Overview: RHI gtt per ICU protocol Mechanically assisted ventilation 05/28/2011 05/29/2011 Overview: Extubated 05/29/11 no increased work of breathing Hypotension 05/28/2011 05/30/2011 Overview: Levo off this morning, hemodynamically stable. documented as of this encounter (statuses as of 03/24/2023) [facility] Diagnosis Altered mental status, unspecified altered mental status type- Primary Vitamin D deficiency, unspecified [facility] Diagnosis Altered mental status, unspecified altered mental status type- Primary Memory loss documented in this encounter [facility] Summary Purpose Family History No Family History Records FoundNo Family History Records FoundNo Family History Records FoundNo Family History Records FoundNo Family History Records FoundNo Family History Records FoundNo Family History Records FoundNo Family History Records Found Advance Directives No Advanced Directives Records FoundDocuments on File Type Date Recorded Patient Stator Winder Expl anation Advance Directive(s) 08/27/2022 1:25 PM Additional Source Comments (unrecognized sect ion and content) No Status Records FoundNo Status Records FoundNo Status Records FoundNo Status Records FoundNo Status Records FoundNo Status Records FoundNo Status Records FoundNo Status Records Found INFORMATION SOURCE (unrecogn ized section and content) DATE CREATED AUTHOR 12/29/2017 [facility] DATE CREATED AUTHOR AUTHOR'S ORGANIZ ATION 12/30/2017 [facility] DATE CREATED AUTHOR AUTHOR'S ORGANIZ ATION 08/28/2022 [facility] DATE CREATED AUTHOR AUTHOR'S ORGANIZ ATION 12/12/2022 [facility] DATE CREATED AUTHOR AUTHOR'S ORGANIZ ATION 03/25/2023 [facility] DATE CREATED AUTHOR AUTHOR'S ORGANIZ ATION 06/25/2023 [facility] DATE CREATED AUTHOR AUTHOR'S ORGANIZ ATION 07/24/2023 [facility] DATE CREATED AUTHOR AUTHOR'S ORGANIZ ATION 08/17/2023 [facility] Source Comments (unrecognize d section and content) In the event this informatio n is protected by the Federal Confidentiality of Alcohol and Drug Abuse Patient Records regulations: The Federal rules restrict any use of the information to criminally investigate or prosecute any alcohol or drug abuse patient.[facility] the event this information is protected by the Federal Confidentiality of Alcohol and Drug Abuse Patient Records regulations: The Federal rules restrict any use of the information to criminally investigate or prosecute any alcohol or drug abuse patient.[facility] the event this information is protected by the Federal Confidentiality of Alcohol and Drug Abuse Patient Records regulations: The Federal rules restrict any use of the information to criminally investigate or prosecute any alcohol or drug abuse patient.[facility] Reason for Visit (unrecogniz ed section and content) Reason Comments New Patient Reason Comments Follow Up Care Teams (unrecognized sec tion and content) [employer] V[employer] Maker Relationship Specialty Start Date End Date Pipe Hopkins MD [address] [place] [address] PCP - General 05/19/11 [facility] [address] [place] [address] Primary Staff Physician Cardiology 09/21/18 [employer] Maker Relationship Specialty Start Date End Date Pipe Hopkins MD [address] [place] [address] PCP - General 05/19/11 [facility] [address] [place] [address] Primary Staff Physician Cardiology 09/21/18 Brick Veneer Maker Relationship Specialty Start Date End Date Pipe Hopkins MD [address] [place] [address] PCP - General 05/19/11 [facility] [address] [place] [address] Primary Staff Physician Cardiology 09/21/18 FOR RECORDS [...] BE BASED ON THE PRIMARY CLINICAL RECORDS. [facility]. provides no warranty or guarantee of the accuracy or completeness of information in this document.
[2024-05-23 09:39] LABS: Basophils Absolute Auto 0.1 10^3/uL (0.0-0.1); Basophils Percent Auto 0.8 % (0.2-2.0); Eosinophils Absolute Auto 0.8 10^3/uL (0.0-0.7); Eosinophils Percent Auto 8.6 % (0.9-7.0); Hematocrit 45.6 % (42.0-54.0); Hemoglobin 14.5 g/dL (14.0-18.0); Immature Granulocytes Abs Auto 0.02 10^3/uL (0.00-0.03); Immature Granulocytes Pct Auto 0.2 % (0.0-0.5); Lymphocytes Absolute Auto 4.2 10^3/uL (1.2-3.8); Mean Corpuscular HGB Conc 31.8 g/dL (29.9-35.2); Mean Corpuscular Volume 94.2 fL (80.0-94.0); Mean Platelet Volume 10.1 fL (9.5-13.5); Monocytes Absolute Auto 0.8 10^3/uL (0.3-0.8); Monocytes Percent Auto 8.1 % (1.7-12.0); Neutrophils Absolute Auto 3.5 10^3/uL (1.4-6.5); Neutrophils Percent Auto 37.3 % (43.0-75.0); Platelet Count 168 10^3/uL (150-450); Red Blood Count 4.84 10^6/uL (4.70-6.10); Red Cell Distribution Width 13.3 % (11.0-15.0); White Blood Count 9.4 10^3/uL (4.0-11.0)
[2024-05-23 09:57] LABS: Free T4 0.91 ng/dL (0.76-1.46)
[2024-05-23 10:01] LABS: Anion Gap 15.1; BUN Creatinine Ratio 16.9; Calcium 9.3 mg/dL (8.5-10.1); Chloride 104 mmol/L (98-107); Estimated GFR (African America 37 (>=60 mL/min/1.73m^2); Estimated GFR (Non-African Ame 31 (>=60 mL/min/1.73m^2); Free T3 2.77 pg/mL (2.18-3.98); Glucose 106 mg/dL (74-106); Potassium 4.1 mmol/L (3.5-5.1); Sodium 141 mmol/L (136-145); Thyroid Stimulating Hormone 3.693 uIU/mL (0.358-3.740)
== END 2024-05-23 08:57 | disposition home or self-care (01) ==
LOC: LAB 08:56
PROVIDERS: PCP Family Medicine; Visit Provider Family Medicine
DX: E78.5 Hyperlipidemia, unspecified (principal); E03.9 Hypothyroidism, unspecified; I10 Essential (primary) hypertension
CPT/HCPCS: 36415; 80048; 84439; 84443; 84481; 85025

== ENCOUNTER 2024-06-02 09:11 | Emergency (ER) | payer OTHER, MEDICAID, SELFPAY ==
[2024-06-02 09:14] VITALS: BP 145/77; PULSE 83; TEMP 36.6; O2SAT 100; BMI 24.1
--- NOTE | 2024-06-02 09:21 | CT_ITS ---
The [address] [address] Patient Name: LEANNA NGUYỄN MRN: [id number] date: 1940 Sex: M Assigned Patient Location: ER Current Patient Location: ED.MAIN Accession/Order Number: [id number] Exam Date: 06/02/2024 10:20 Report Date: 06/02/2024 11:36 At the request of: MICHELLE BOO Procedure: CT cervical spine wo con CT CERVICAL SPINE WITHOUT CONTRAST, 06/02/2024 HISTORY: Trauma. Fall. Neck pain. COMPARISON: CTA cervical spine without contrast, 07/01/2022. TECHNIQUE: Noncontrast axial CT images obtained through the cervical spine. Reconstructions obtained in the sagittal and coronal planes. Dose reduction techniques were achieved by using automated exposure control and/or adjustment of mA and/or kV according to patient size and/or use of iterative reconstruction technique. FINDINGS: Alignment normal. Odontoid process is intact. Facet joints are intact. No acute cervical spine fracture. Severe multilevel degenerative disc disease and facet arthropathy. No paraspinal soft tissue swelling. No paraspinal mass. CT/CT cervical spine wo con IMPRESSION: Stable CT of the cervical spine. No acute cervical spine fracture or traumatic subluxation. Degenerative changes in the cervical spine appear stable. Electronically authenticated by: QUINCY SCWHARTZ Date: 06/02/2024 11:36
--- NOTE | 2024-06-02 09:21 | CT_ITS ---
The [address] [address] Patient Name: LEANNA NGUYỄN MRN: [id number] date: 1940 Sex: M Assigned Patient Location: ER Current Patient Location: ED.MAIN Accession/Order Number: [id number] Exam Date: 06/02/2024 10:20 Report Date: 06/02/2024 11:35 At the request of: MICHELLE BOO Procedure: CT head/brain wo con CT HEAD WITHOUT CONTRAST, 06/02/2024 HISTORY: Fall. Head injury. COMPARISON: None. TECHNIQUE: Noncontrast axial CT images obtained through the head. Dose reduction techniques were achieved by using automated exposure control and/or adjustment of mA and/or kV according to patient size and/or use of iterative reconstruction technique. FINDINGS: Paranasal sinuses clear. Mastoid air cells are clear. No skull fracture. Extracranial soft tissue structures are unremarkable. Moderate brain atrophy. No hydrocephalus. No extra-axial fluid collection. No acute intracranial hemorrhage. No masses. CT/CT head/brain wo con IMPRESSION: 1. No acute findings. No intracranial hemorrhage. No skull fracture. 2. Brain atrophy. No obstructive hydrocephalus. Electronically authenticated by: QUINCY SCHWARTZ Date: 06/02/2024 11:35
--- NOTE | 2024-06-02 09:22 | ED_ITS ---
HPI HPI - General Adult General Chief complaint: Fall Stated complaint: FALL Time Seen by Provider: 06/02/24 09:12 Source: patient Mode of arrival: ambulance Limitations: no limitations History of Present Illness HPI narrative: 83-year-old male presents because he fell. He fell this morning at home when he was attempting to water his plants and he turned and he fell in the appears to have hit his head. He has bruising at the medial aspect of his right eye and an abrasion on his right forearm. He does not complain of neck pain or injury to his legs. He was transported here by paramedics with a c-collar in place. Related Data Home Medications ?Medication ?Instructions ?Recorded ?Confirmed acetaminophen 500 mg tablet 500 mg PO DAILY 02/05/24 02/05/24 aspirin 81 mg tablet,delayed 81 mg PO DAILY 02/05/24 02/05/24 release hydrochlorothiazide 25 mg tablet 25 mg PO DAILY 02/05/24 02/05/24 levothyroxine 100 mcg tablet 100 mcg PO DAILY 02/05/24 02/05/24 liothyronine 5 mcg tablet 5 mcg PO DAILY 02/05/24 02/05/24 Allergies Allergy/AdvReac Type Severity Reaction Status Date / Time atorvastatin (From Lipitor) Allergy Severe Muscle Pain Verified 02/05/24 08:58 Opioid HPI Opioid Management Most Recent Opioid Data: Last Pain Scale 0 06/02/24 09:22 06/02/24 Review of Systems ROS Narrative A ten point review of systems is negative except as noted above. PFSH PFSH Medical History (Updated 06/02/24 @ 11:25 by Leonardo Lala MD) Hx of angina pectoris ?Z86.79 - Personal history of other diseases of the circulatory system (ICD- 10) Hx of migraine headaches ?Z86.69 - Personal history of other diseases of the nervous system and sense organs (ICD-10) Hx of pulmonary fibrosis ?Z87.09 - Personal history of other diseases of the respiratory system (ICD- 10) History of intervertebral disc disorder ?Z87.39 - Personal history of other diseases of the musculoskeletal system and connective tissue (ICD-10) Hx of essential hypertension ?Z86.79 - Personal history of other diseases of the circulatory system (ICD- 10) History of hypothyroidism ?Z86.39 - Personal history of other endocrine, nutritional and metabolic disease (ICD-10) Surgical History (Updated 06/02/24 @ 10:18 by Kaiser Guillen) Hx of coronary artery bypass graft ?Z95.1 - Presence of aortocoronary bypass graft (ICD-10) Hx of hernia repair ?Z98.890 - Other specified postprocedural states (ICD-10) ?Z87.19 - Personal history of other diseases of the digestive system (ICD-10) Exam Narrative Exam Narrative: Nurses note and vital signs reviewed and patient is not hypoxic. General: The patient appears in no apparent distress. Patient is resting comfortably on cart. C-collar is in place Skin: Warm, dry, no pallor noted. There is no rash noted. Head: Normocephalic Eye: Normal conjunctiva, no drainage, small bruising present at the medial a spect of the right eye. Ears, Nose, Mouth, and Throat: oral mucosa is moist. Nares patent. Cardiovascular: Regular Rate and Rhythm Respiratory: Patient is in no distress, no accessory muscle use, lungs are clear to auscultation, no wheezing, rales or rhonchi GI: Soft and nontender Musculoskeletal: Superficial abrasion present on the right forearm. All joints in all 4 extremities have full range of motion. No hip tenderness. Neurological: A&O x4, normal speech Psychiatric: Cooperative Constitutional Vital Signs, click to edit/add: Last Vital Signs Temp 97.8 F 06/02/24 09:14 Pulse 76 06/02/24 11:15 Resp 18 06/02/24 11:15 BP 139/70 06/02/24 11:15 Pulse Ox 99 06/02/24 11:15 O2 Del Method Room Air 06/02/24 09:27 Course Vital Signs Vital signs: Vital Signs Temperature 97.8 F 06/02/24 09:14 Pulse Rate 83 06/02/24 09:14 Respiratory Rate 18 06/02/24 09:14 Blood Pressure 145/77 H 06/02/24 09:14 Pulse Oximetry 100 06/02/24 09:14 Oxygen Delivery Method Room Air 06/02/24 09:14 Temperature 97.8 F 06/02/24 09:14 Pulse Rate 76 06/02/24 11:15 Respiratory Rate 18 06/02/24 11:15 Blood Pressure 139/70 06/02/24 11:15 Pulse Oximetry 99 06/02/24 11:15 Oxygen Delivery Method Room Air 06/02/24 09:27 Medical Decision Making MDM Narrative Medical decision making narrative: CT brain and CT C-spine are negative. He had a tetanus shot 2 years ago and does not require another 1 today. He is released in the care of his brother. Findings were discussed thoroughly. Differential Diagnosis Differential Diagnosis: Fall, contusion, intracranial hemorrhage Imaging Data CT scan - head: Radiologist's impression: ITS Impressions Cervical Spine CT 06/02/24 09:21 IMPRESSION: Stable CT of the cervical spine. No acute cervical spine fracture or traumatic subluxation. Changes in the cervical spine appear stable. Electronically authenticated by: QUINCY SCHWARTZ Date: 06/02/2024 11:[address] 06/02/24 09:21 IMPRESSION: 1. No acute findings. No intracranial hemorrhage. No skull fracture. 2. Brain atrophy. No obstructive hydrocephalus. Electronically authenticated by: QUINCY SCHWARTZ Date: 06/02/2024 11:19 Discharge Plan Discharge Chief Complaint: Fall Clinical Impression: Fall, Facial contusion Patient Disposition: Home, Self-Care Time of Disposition Decision: 11:25 Condition: Good Mode of Transportation: Private Vehicle Prescriptions / Home Meds: No Action acetaminophen 500 mg tablet 500 mg PO DAILY aspirin 81 mg tablet,delayed release (DR/EC) 81 mg PO DAILY hydrochlorothiazide 25 mg tablet 25 mg PO DAILY levothyroxine 100 mcg tablet 100 mcg PO DAILY liothyronine 5 mcg tablet 5 mcg PO DAILY Print Language: Mauritian Instructions: Fall Prevention for Older Adults (ED), Facial Contusion (ED) Referrals: Marcelo Hopkins MD [Primary Care Provider] - 1 week
[2024-06-02 09:27] VITALS: O2SAT 98
--- OUTSIDE RECORDS SUMMARY | 2024-06-02 10:00 | XMS_ITS | CCD ---
Author Organization [facility] Care Team Providers Care Targeteer Name Role Phone PHYSICIAN, DEFAULT Unavailable Unavailable PHYSICIAN, DEFAULT Unavailable Unavailable EVELIA, SUNJUK Unavailable Unavailable EVELIA, SUNJUK Unavailable Unavailable EVELIA, SUNJUK Unavailable Unavailable Pipe [phone] UNKNOWN Unavailable Unavailable Pipe Hopkins MD Primary Care Provider [phone] [place] Unavailable [phone] PIPE HOPKINS Primary Care Unavailable JODI BANERJEE Referring Unavailab antoine Farrell, DR BETANCUR Consulting Unavailable FAWWAD, KAMARA H Admitting Unavailable FAWMARTHAD, KAMARA H Attending Unavailable HOY .DR BETANCUR Primary Care Unavailable PAY ., [...] HOY ., DR BETANCUR Primary Care Unavailable ZIEBER, [...] Unavailable Pipe Hopkins MD Primary Care Provider [phone] RonaldFarooq unger Lou Unavailable JODI BANERJEE Attending Unavailab PIPE Griffith Primary Care Unavailable JODI BANERJEE Attending Unavailab PIPE Griffith Primary Care Unavailable AMANDA IRBY Attending Unavailable PIPE HOPKINS Referring Unavailable AYSE BARNES Attending Unavailable AYSE BARNES Attending Unavailable Allergies Allergy Classification Reported Allergen(s) Allergy Type Date of Onset Reaction(s) Facility (2 sources) atorvastatin; Translations: [Lipitor] Drug Allergy [facility] Repository (5 sources) atorvastatin; Translations: [ATORVASTATIN CALCIUM] Drug Allergy 03-28-2014 [facility] (1 source) atorvastatin; Translations: [ATORVASTATIN] Drug Allergy 03-28-2014 [facility] Repository Medications Completed/Discontinued Medications Medication Drug Class(es) [...] Classification Problem Date Documented Da te Episodic/Chronic Cataract (1 source) Presence of intraocular lens; Translations: [PRESENCE OF INTRAOCULAR LENS] Onset: 07-14-2022 Chronic Chronic kidney disease (1 source) Chronic kidney disease, stage 4 (severe); Translations: [CKD STAGE 4 SEVERE] Onset: 07-14-2022 Chronic Chronic kidney disease (2 sources) Chronic kidney disease; Translations: [Chronic kidney disease, stage 3b] Onset: 12-25-2022 Congestive heart failure; nonhypertensive (3 sources) Unspecified diastolic (congestive) heart failure; Translations: [Chronic diastolic (congestive) heart failure] Onset: 06-07-2022 Chronic Coronary atherosclerosis and other heart disease (6 sources) Coronary arteriosclerosis; Translations: [Atherosclerotic heart disease of king salmon coronary artery without angina pectoris] Onset: 05-27-2011 [...] and stenosis of bilateral carotid arteries] Onset: 06-24-2023 Chronic Other nervous system disorders (1 source) [...] Onset: 07-14-2022 Episodic Other aftercare (1 source) 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; Translations: [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 MANAGER CURRENT USE OF ASPIRIN] Onset: 07-14-2022 Episodic Other aftercare (1 source) Other terminal worker (current) drug therapy; Translations: [OTH FDC CURRENT DRUG THERAPY] Onset: 07-14-2022 Episodic Other [...] Value Interpretation Reference Range Facility Office Visiton 05-30-2024 Follow-up visit [id number] GopiLeanna Torey 1940 M Date Provider Department Center 05/30/2024 AYSE VIVAR KADEEM [facility] Family History Problem Relation Age of Onset Coronary artery disease Brother Heart attack Brother Heart failure Brother Other Brother Family Status - Relation Status Age at Brother Level of Service:57836 [place] OFFICE/OUTPATIENT ESTABLISHED MOD MDM 30 MIN Normal [facility] URINALYSISon 08-11-2023 Bilirubin Ql (U) Negative Normal NEG [facility] Comment on above: Performed By: #### U A #### [facility] ([id number]) [address] [place] [address] BLOOD/HGB Negative Normal NEG [facility] Comment on above: Performed By: #### U A #### [facility] ([id number]) [address] [place] [address] Color (U) YELLOW Normal YELLOW [facility] Comment on above: Performed By: #### U A #### [facility] ([id number]) [address] [place] [address]63 Glucose Ql (U) Negative Normal NEG [facility] Comment on above: Performed By: #### U A #### [facility] ([id number]) [address] [place] [address] 31138 Ketones Ql (U) Negative Normal NEG [facility] Comment on above: Performed By: #### U A #### [facility] ([id number]) [address] [place] [address]18 Leukocyte esterase Test strip Ql (U) Negative Normal NEG [facility] Comment on above: Performed By: #### U A #### [facility] ([id number]) [address] [place] [address]49 Nitrite Ql (U) Negative Normal NEG [facility] Comment on above: Performed By: #### U A #### [facility] ([id number]) [address] [place] [address]98 pH (U) 6.0 [pH] Normal 5.0-8.5 [facility] Comment on above: Performed By: #### U A #### [facility] ([id number]) [address] [place] [address]06 Protein Ql (U) Negative Normal NEG [facility] Comment on above: Performed By: #### U A #### [facility] ([id number]) [address] [place] [address] [place] [address] Specific gravity (U) [Rel density] 1.025 Normal 1.003-1.035 [facility] Comment on above: Performed By: #### U A #### [facility] ([id number]) [address] [place] [address] [place] [address] TURBIDITY CLEAR Normal CLEAR [facility] Comment on above: Performed By: #### U A #### [facility] ([id number]) [address] [place] [address] [place] [address] Urobilinogen Qn (U) 0.2 {Ilene'U}/dL Normal <1.1 [facility] Comment on above: Performed By: #### U A #### [facility] ([id number]) [address] [place] [address] URINE CULTUREon 08-11-2023 Bacteria identified Cx Nom (U) CULTURE RESULTS <10,000 ORGANISMS/ML NORMAL URO GENITAL LOIS Normal [facility] Comment on above: Performed By: #### 6 30-4 #### [facility] ([id number]) [address], [address] [place] [address] Office Visiton 06-24-2023 Follow-up visit [id number] Leanna Nelson 1940 M Date Provider Department Center 06/24/2023 AYSE VIVAR KADEEM Benitez Family History Problem Relation Age of Onset Coronary artery disease Brother Heart attack Brother Heart failure Brother Other Brother Family Status - Relation Status Age at Brother Level of Service:16016 [place] OFFICE/OUTPATIENT ESTABLISHED LOW MDM 20 MIN Normal [facility] CNOVon 03-23-2023 CNOV Office Visit (NEUSHF ) LEANNA NELSON ([id number]) 1940 M Date Time Provider Department 03/23/23 2:00 PM JODI BANERJEE During your visit today, we recorded the following information about you: Pulse Blood pressure 51/minute 151/68 Jodi Banerjee, 03/23/2023 2:41 PM [address] [facility] [place] Follow-up visit March 23, 2023 HPI: Overall [...] encounter he has moved and low lives [facility]. He states he does not [...] mainly his brother. He has seen by credentialing manager in 01/2023 with suggestion that he get a hearing aide but he refuses. After his last encounter he has followed up with cardiology concerning his heart rate that was auscultated on last encounter. They checked his heart rhythm and thought it was appropriate. This was as via physician in [place]. They deny other changes to his health and/or medications except for the above since our last encounter. PAST MEDICAL HISTORY Diagnosis Date Arthritis Carotid stenosis Coronary artery disease Coronary atherosclerosis of unspecified type of vessel, king salmon or graft 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 Dyslipidemia Hypertension Hypertension Hypothyroid Lumbar disc disease Unspecified hypothyroidism Hypothyroidism PAST SURGICAL HISTORY Procedure Laterality Date PAST SURGICAL HISTORY OF CABG times 6 left internal thoracic artery to the [id number] left anterior descending artery, reverse saphenous vein [...] mouth onc (more content not included)... [facility] Tele[facility] (NEUAV4) LEANNA NELSON ([id number]) 1940 [place] Date Time Provider Department 03/23/23 [...] facility to release information to our office. POWillian was advised via voice message to send a LOOKSIMAhart msg if he had any further question. 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 Aissatou Vásquez Cholesterol [Mass/Vol] 149 mg/dL Normal <=200 [facility] Comment on above: Performed By: #### L IPID, CMP ####[facility] [address] [place], [place] [address]Tm. Aissatou Vásquez Cholesterol in HDL [Mass/Vol] 83 mg/dL Critically high 40-60 [facility] Comment on above: Performed By: #### L IPID, CMP ####[facility] [address] [place], [place] [address]Rt. Aissatou Vásquez Cholesterol in LDL [Mass/Vol] 58.6 mg/dL Normal [facility] Comment on above: Performed By: #### L IPID, CMP ####[facility] [address] [place] [address]Dr. Aissatou Vásquez Cholesterol.total/Cho lesterol in HDL [Mass ratio] 1.8 {ratio} Normal [facility] Comment on above: Performed By: #### L IPID, CMP ####[facility] [address] [place] [address]Dr. Aissatou Vásquez HDL NORMAL > or = 60 mg/dl - LO W CARDIOVASCULAR RISK <40 mg/dl - HIGH CARDIOVASCULAR RISK Normal [facility] Comment on above: Performed By: #### L IPID, CMP ####[facility] [address] [place], [place] [address]Dr. Aissatou Vásquez LDL CALC NORMAL SEE BELOW Normal [facility] Comment on above: Result Comment: <100 mg/dl OPTIMAL 100 - 129 mg/dl NEAR OR ABOVE OPTIMAL 130 - 159 mg/dl BORDERLINE HIGH 160 - 189 mg/dl HIGH >190 mg/dl VERY HIGH Performed By: #### L IPID, CMP ####[facility] [address] [place] [address]Dr. Aissatou Vásquez Triglyceride [Mass/Vol] 37 mg/dL Normal <=150 [facility] Comment on above: Performed By: #### L IPID, CMP ####[facility] [address] [place] [address]Dr. Aissatou Vásquez VLDL CALC 7.4 mg/dL Normal [facility] Comment on above: Performed By: #### L IPID, CMP ####[facility] [address] [place] [address]Dr. Aissatou Vásquez PROF 14(COMP METB)on 023 Albumin [Mass/Vol] 3.8 g/dL Normal 3.4-5.0 [facility] Comment on above: Performed By: #### L IPID, CMP ####[facility] [address] [place] [address]Dr. Aissatou Vásquez Albumin/Globulin [Mass ratio] 1.0 {ratio} Normal [facility] Comment on above: Performed By: #### L IPID, CMP ####[facility] [address] [place] [address]Dr. Aissatou Vásquez ALP [Catalytic activity/Vol] 98 U/L Normal 46-116 [facility] Comment on above: Performed By: #### L IPID, CMP ####[facility] [address] [place] [address]Dr. Aissatou Fahad ALT [Catalytic activity/Vol] 25 U/L Normal 16-63 [facility] Comment on above: Performed By: #### L IPID, CMP ####[facility] [address] [place] [address]Dr. Aissatou Vásquez Anion gap [Moles/Vol] 15.5 mmol/L Normal [facility] Comment on above: Performed By: #### L IPID, CMP ####[facility] [address] [place], [place] [address]Dr. Aissatou Vásquez AST [Catalytic activity/Vol] 21 U/L Normal 15-37 [facility] Comment on above: Performed By: #### L IPID, CMP ####[facility] [address] [place], [place] [address]Dr. Aissatou Vásquez Bilirubin [Mass/Vol] 0.5 mg/dL Normal 0.2-1.0 [facility] Comment on above: Performed By: #### L IPID, CMP ####[facility] [address] [place], [place] [address]Dr. Aissatou Vásquez Calcium [Mass/Vol] 9.5 mg/dL Normal 8.5-10.1 [facility] Comment on above: Performed By: #### L IPID, CMP ####[facility] [address] [place] [address]Dr. Aissatou Vásquez Chloride [Moles/Vol] 107 mmol/L Normal 98-107 [facility] Comment on above: Performed By: #### L IPID, CMP ####[facility] [address] [place], [place] [address]Dr. Aissatou Vásquez CO2 [Moles/Vol] 23.0 mmol/L Normal 21.0-32.0 [facility] Comment on above: Performed By: #### L IPID, CMP ####[facility] [address] [place], [place] [address]Dr. Sheysarah Fahad Creatinine [Mass/Vol] 1.75 mg/dL Critically high 0.70-1.30 [facility] Comment on above: Performed By: #### L IPID, CMP ####[facility] [address] [place], [place] [address]Dr. Aissatou Vásquez EGFR-AF VINCENTIAN 45 mL/min/1.73m2 Critically low >=60 [facility] Comment on above: Performed By: #### L IPID, CMP ####[facility] [address] [place], [place] [address]Dr. Aissatou Vásquez EGFR-NON AF VINCENTIAN 37 mL/min/1.73m2 Critically low >=60 [facility] Comment on above: Performed By: #### L IPID, CMP ####[facility] [address] [place], [place] [address]Dr. Aissatou Vásquez Globulin (S) [Mass/Vol] 3.7 g/dL Normal [facility] Comment on above: Performed By: #### L IPID, CMP ####[facility] [address] [place], [place] [address]Dr. Aissatou Vásquez Glucose [Mass/Vol] 83 mg/dL Normal 74-106 [facility] Comment on above: Performed By: #### L IPID, CMP ####[facility] [address] [place], [place] [address]Dr. Aissatou Vásquez Potassium [Moles/Vol] 4.5 mmol/L Normal 3.5-5.1 [facility] Comment on above: Performed By: #### L IPID, CMP ####[facility] [address] [place], [place] [address]Dr. Aissatou Vásquez Protein [Mass/Vol] 7.5 g/dL Normal 6.4-8.2 [facility] Comment on above: Performed By: #### L IPID, CMP ####[facility] [address] [place] [id number]. Aissatou Vásquez Sodium [Moles/Vol] 141 mmol/L Normal 136-145 [facility] Comment on above: Performed By: #### L IPID, CMP ####[facility] [address] [place] [id number]. Aissatou Vásquez Urea nitrogen [Mass/Vol] 46.0 mg/dL Critically high 7.0-18.0 [facility] Comment on above: Performed By: #### L IPID, CMP ####[facility] [address] [place], [place] [address]Ua. Aissatou Vásquez Urea nitrogen/Creatinine [Mass ratio] 26.3 mg/mg Normal [facility] Comment on above: Performed By: #### L IPID, CMP ####[facility] [address] [place] [id number]. Aissatou Vásquez 25(OH)D3 [facility] 2022 25-hydroxyvitamin D3 [Mass/Vol] 28.6 ng/mL Low 31.0-80.0 [facility] Comment on above: Order Comment: Speci men Type: BLOOD SPECIMEN Ordering Facility: [facility] Address: [address] [place], [place] [id number] Result Comment: Clas sification of 25 [place] Vitamin D status: Deficiency/Insufficiency: < or = 30 ng/ml. Sufficiency/Optimal Levels: 31-80 ng/mL Toxicity: > 100 ng/mL. Test performed by chemiluminescent immunoassay. Performed By: #### 1 989-3 #### [facility] CLIA [id number] [address] [place] [address] OF [facility] CNOVon 08-27-2022 CNOV Office Visit (NEUAV4 ) LEANNA NELSON ([id number]) 1940 M Date Time Provider Department 08/27/22 1:00 PM JODI BANERJEEAV4 During your visit today, we recorded the following information about you: Pulse Blood pressure 69/minute 156/70 Gokatelyn Jasso Deepaure, 08/27/2022 2:35 PM Addendum [facility] New Patient Consultation August 27, 2022 HPI: [...] They have been working with social services designee at the facility he is at but [...] Coronary atherosclerosis of unspecified type of vessel, king salmon or graft 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 Dyslipidemia Hypertension Hypertension Hypothyroid Lumbar disc disease Unspecified hypothyroidism Hypothyroidism PAST SURGICAL HISTORY Procedure Laterality Date PAST SURGICAL HISTORY OF CABG times 6 left internal thoracic artery to the wms-lk-xjiuoe left anterior descending artery, reverse saphenous vein [...] on 08/07 (more content not included)... Normal [facility] Reagin and Treponema pallidu m IgG and IgM [Interp]on 08-27-2022 SYPHILIS INTERPRETATION Cannot exclude recent Treponemal infection if specimen collected within 7-10 days after appearance of suspect lesions or 2-3 weeks after an exposure. Clinical correlation is required. Normal [facility] Comment on above: Order Comment: Speci men Type: BLOOD SPECIMEN Ordering Facility: [facility] Address: [address] [place] [address] Performed By: #### 7 3752-8 #### [facility] CLIA [id number] [address] [place] [address] [place] T. pallidum IgG+IgM IA Ql (S) Non-Reactive Normal Nonreactive [facility] Comment on above: Order Comment: Speci men Type: BLOOD SPECIMEN Ordering Facility: [facility] Address: [address] [place] [address] Performed By: #### 7 3752-8 #### [facility] CLIA [id number] [address] [place] [address] [place] CREATININEon 07-11-2022 Creatinine [Mass/Vol] 2.09 mg/dL Critically high 0.70-1.30 [facility] Comment on above: Performed By: #### C ADAM #### [facility] [address] [place] [address] Dr. Aissatou Vásquez EGFR-AF VINCENTIAN 37 mL/min/1.73m2 Critically low >=60 [facility] Comment on above: Performed By: #### C ADAM #### [facility] [address] [place] [address] Dr. Aissatou Vásquez EGFR-NON AF VINCENTIAN 30 mL/min/1.73m2 Critically low >=60 [facility] Comment on above: Performed By: #### C ADAM #### [facility] [address] [place] [address] Dr. Aissatou Vásquez MRI BRAIN WO CONon [...] LEATHA GAVIRIA Date: 2022-07-11 15:11 Normal [facility] CULTURE BLOODon 07-10-2022 Microscopic examination of blood, [...] S P Tobramycin S P Normal [facility] Comment on above: Performed By: #### B LDCX2 ####[facility] [address] [place] [address]Dr. Aissatou Vásquez CBC AUTO DIFFon 07-04-2022 BASO # 0.0 103/ul Normal 0.0-0.1 [facility] Comment on above: Performed By: #### L MARIANN, BMP, HSTROPN #### [facility] [address] [place] [address] Dr. Aissatou Vásquez Basophils/100 WBC (Bld) 0.3 % Normal 0.2-2.0 [facility] Comment on above: Performed By: #### L IVER, BMP, HSTROPN #### [facility] [address] [place] [address] Dr. Aissatou Vásquez EO # 0.0 103/ul Normal 0.0-0.7 [facility] Comment on above: Performed By: #### L IVER, BMP, HSTROPN #### [facility] [address] [place] [address] Dr. Aissatou Vásquez Eosinophils/100 WBC (Bld) 0.6 % Critically low 0.9-7.0 [facility] Comment on above: Performed By: #### L IVER, BMP, HSTROPN #### [facility] [address] [place] [address] Dr. Aissatou Vásquez Erythrocyte distribution width (RBC) [Ratio] 13.7 % Normal 11.0-15.0 [facility] Comment on above: Performed By: #### L IVER, BMP, HSTROPN #### [facility] [address] [place] [address] Dr. Aissatou Vásquez Hematocrit (Bld) [Volume fraction] 34.2 % Critically low 42.0-54.0 [facility] Comment on above: Performed By: #### L IVER, BMP, HSTROPN #### [facility] [address] [place] [address] Dr. Aissatou Vásquez Hemoglobin (Bld) [Mass/Vol] 10.7 g/dL Critically low 14.0-18.0 [facility] Comment on above: Performed By: #### L IVER, BMP, HSTROPN #### [facility] [address] [place] [address] Dr. Aissatou Vásquez IG # 0.02 10e3/ul Normal 0.00-0.03 [facility] Comment on above: Performed By: #### L IVER, BMP, HSTROPN #### [facility] [address] [place] [address] Dr. Aissatou Vásquez IG % 0.3 % Normal 0.0-0.5 [facility] Comment on above: Performed By: #### L IVER, BMP, HSTROPN #### [facility] [address] [place] [address] Dr. Aissatou Vásquez LYMPH # 1.7 103/ul Normal 1.2-3.8 [facility] Comment on above: Performed By: #### L IVER, BMP, HSTROPN #### [facility] [address] [place] [address] Dr. Aissatou Vásquez Lymphocytes/100 WBC (Bld) 25.6 % Normal 20.5-60.0 [facility] Comment on above: Performed By: #### L IVER, BMP, HSTROPN #### [facility] [address] [place] [address] Dr. Aissatou Vásquez MANUAL DIFF REQ NO Normal [facility] Comment on above: Performed By: #### L IVER, BMP, HSTROPN #### [facility] [address] [place] [address] Dr. Aissatou Vásquez MCH (RBC) [Entitic mass] 29.6 pg Normal 25.9-34.0 [facility] Comment on above: Performed By: #### L IVER, BMP, HSTROPN #### [facility] [address] [place] [address] Dr. Aissatou Vásquez MCHC (RBC) [Mass/Vol] 31.3 g/dL Normal 29.9-35.2 [facility] Comment on above: Performed By: #### L IVER, BMP, HSTROPN #### [facility] [address] [place] [address] Dr. Aissatou Vásquez MCV (RBC) [Entitic vol] 94.5 fL Critically high 80.0-94.0 [facility] Comment on above: Performed By: #### L IVER, BMP, HSTROPN #### [facility] [address] [place] [address] Dr. Aissatou Vásquez MONO # 0.7 103/ul Normal 0.3-0.8 [facility] Comment on above: Performed By: #### L IVER, BMP, HSTROPN #### [facility] [address] [place] [address] Dr. Aissatou Vásquez Monocytes/100 WBC (Bld) 11.2 % Normal 1.7-12.0 [facility] Comment on above: Performed By: #### L IVER, BMP, HSTROPN #### [facility] [address] [place] [address] Dr. Aissatou Vásquez NEUT # 4.0 103/ul Normal 1.4-6.5 [facility] Comment on above: Performed By: #### L IVER, BMP, HSTROPN #### [facility] [address] [place] [address] Dr. Aissatou Vásquez Neutrophils/100 WBC (Bld) 62.0 % Normal 43.0-75.0 [facility] Comment on above: Performed By: #### L IVER, BMP, HSTROPN #### [facility] [address] [place] [address] Dr. Aissatou Vásquez Platelet mean volume (Bld) [Entitic vol] 10.4 fL Normal 9.5-13.5 [facility] Comment on above: Performed By: #### L IVER, BMP, HSTROPN #### [facility] [address] [place] [address] Dr. Aissatou Vásquez PLT 134 103/ul Critically low 150-450 [facility] Comment on above: Performed By: #### L IVER, BMP, HSTROPN #### [facility] [address] [place] [address] Dr. Aissatou Vásquez RBC 3.62 106/ul Critically low 4.70-6.10 [facility] Comment on above: Performed By: #### L IVER, BMP, HSTROPN #### [facility] [address] [place] [address] Dr. Aissatou Vásquez WBC 6.5 103/ul Normal 4.0-11.0 [facility] Comment on above: Performed By: #### L IVER, BMP, HSTROPN #### [facility] [address] [place] [address] Dr. Aissatou Vásquez CPKon 07-04-2022 CK [Catalytic activity/Vol] 149 U/L Normal 39-308 [facility] Comment on above: Performed By: #### L IVER, BMP, HSTROPN #### [facility] [address] [place] [address] Dr. Aissatou Vásquez MAGNESIUMon 07-04-2022 Magnesium [Mass/Vol] 1.7 mg/dL Critically low 1.8-2.4 [facility] Comment on above: Performed By: #### L IVER, BMP, HSTROPN #### [facility] [address] [place] [address] Dr. Aissatou Vásquez PHOSPHORUSon 07-04-2022 Phosphate [Mass/Vol] 3.6 mg/dL Normal 2.6-4.7 [facility] Comment on above: Performed By: #### L IVER, BMP, HSTROPN #### [facility] [address] [place] [address] Dr. Aissatou Vásquez PROF 14(COMP METB)on 022 Albumin [Mass/Vol] 2.8 g/dL Critically low 3.4-5.0 [facility] Comment on above: Performed By: #### L IVER, BMP, HSTROPN #### [facility] [address] [place] [address] Dr. Aissatou Vásquez Albumin/Globulin [Mass ratio] 0.9 {ratio} Normal [facility] Comment on above: Performed By: #### L IVER, BMP, HSTROPN #### [facility] [address] [place] [address] Dr. Aissatou Vásquez ALP [Catalytic activity/Vol] 86 U/L Normal 46-116 [facility] Comment on above: Performed By: #### L IVER, BMP, HSTROPN #### [facility] [address] [place] [address] Dr. Aissatou Vásquez ALT [Catalytic activity/Vol] 50 U/L Normal 16-63 [facility] Comment on above: Performed By: #### L IVER, BMP, HSTROPN #### [facility] [address] [address] [address] Aissatou Vásquez Anion gap [Moles/Vol] 11.6 mmol/L Normal Th [facility] Comment on above: Performed By: #### L IVER, BMP, HSTROPN #### [facility] [address] [address] [address] Aissatou Vásquez AST [Catalytic activity/Vol] 41 U/L Critically high 15-37 [facility] Comment on above: Performed By: #### L IVER, BMP, HSTROPN #### [facility] [address] [place] [address] Dr. Aissatou Vásquez Bilirubin [Mass/Vol] 0.4 mg/dL Normal 0.2-1.0 [facility] Comment on above: Performed By: #### L IVER, BMP, HSTROPN #### [facility] [address] [place] [address] Dr. Aissatou Vásquez Calcium [Mass/Vol] 8.7 mg/dL Normal 8.5-10.1 [facility] Comment on above: Performed By: #### L IVER, BMP, HSTROPN #### [facility] [address] [place] [address] Dr. Aissatou Vásquez Chloride [Moles/Vol] 106 mmol/L Normal 98-107 [facility] Comment on above: Performed By: #### L IVER, BMP, HSTROPN #### [facility] [address] [place] [address] Dr. Aissatou Vásquez CO2 [Moles/Vol] 27.0 mmol/L Normal 21.0-32.0 [facility] [place] Comment on above: Performed By: #### L IVER, BMP, HSTROPN #### [facility] [address] [place] [address] Dr. Aissatou Vásquez Creatinine [Mass/Vol] 1.99 mg/dL Critically high 0.70-1.30 [facility] Comment on above: Performed By: #### L IVER, BMP, HSTROPN #### [facility] [address] [address] [address] Aissatou Vásquez EGFR-AF VINCENTIAN 39 mL/min/1.73m2 Critically low >=60 [facility] Comment on above: Performed By: #### L IVER, BMP, HSTROPN #### [facility] [address] [place] [address] Dr. Aissatou Vásquez EGFR-NON AF VINCENTIAN 32 mL/min/1.73m2 Critically low >=60 [facility] Comment on above: Performed By: #### L IVER, BMP, HSTROPN #### [facility] [address] [place] [address] Dr. Aissatou Vásquez Globulin (S) [Mass/Vol] 3.1 g/dL Normal [facility] Comment on above: Performed By: #### L IVER, BMP, HSTROPN #### [facility] [address] [place] [address] Dr. Aissatou Vásquez Glucose [Mass/Vol] 93 mg/dL Normal 74-106 [facility] Comment on above: Performed By: #### L IVER, BMP, HSTROPN #### [facility] [address] [place] [address] Dr. Aissatou Vásquez Potassium [Moles/Vol] 4.6 mmol/L Normal 3.5-5.1 [facility] Comment on above: Performed By: #### L IVER, BMP, HSTROPN #### [facility] [address] [place] [address] Dr. Aissatou Vásquez Protein [Mass/Vol] 5.9 g/dL Critically low 6.4-8.2 [facility] Comment on above: Performed By: #### L IVER, BMP, HSTROPN #### [facility] [address] [place] [address] Dr. Aissatou Vásquez Sodium [Moles/Vol] 140 mmol/L Normal 136-145 [facility] Comment on above: Performed By: #### L IVER, BMP, HSTROPN #### [facility] [address] [place] [address] Dr. Aissatou Vásquez Urea nitrogen [Mass/Vol] 50.0 mg/dL Critically high 7.0-18.0 [facility] Comment on above: Performed By: #### L DHARA WAITE, HSTROPN #### [facility] [address] [place] [address] Dr. Aissatou Vásquez Urea nitrogen/Creatinine [Mass ratio] 25.1 mg/mg Normal [facility] Comment on above: Performed By: #### L DHARA WAITE, HSTROPN #### [facility] [address] [place] [address] Dr. Aissatou Vásquez PROTIMEon 07-04-2022 INR Coag (PPP) [Relative time] 1.05 {INR} Normal [facility] Comment on above: Performed By: #### C ADAM #### [facility] [address] [place] [address] Dr. Aissatou Vásquez INR GUIDELINES SEE BELOW Normal [facility] Comment on above: Result Comment: ELISABETH RED INR: 2.0 - 3.0 CONDITIONS NOT LISTED BELOW 2.5 - 3.5 FOR PROSTHETIC HEART VALVE REPLACEMENT 2.5 - 3.5 RECURRENT THROMBOSIS Performed By: #### C ADAM #### [facility] [address] [place] [address] Dr. Aissatou Vásquez PT Coag (PPP) [Time] 11.3 s Normal 9.0-11.6 [facility] Comment on above: Performed By: #### C ADAM #### [facility] [address] [place] [address] Dr. Aissatou Vásquez CBC AUTO DIFFon 07-03-2022 BASO # 0.0 103/ul Normal 0.0-0.1 [facility] Comment on above: Performed By: #### L DHARA WAITE, HSTROPN #### [facility] [address] [place] [address] Dr. Aissatou Vásquez Basophils/100 WBC (Bld) 0.3 % Normal 0.2-2.0 [facility] Comment on above: Performed By: #### L IVER, BMP, HSTROPN #### [facility] [address] [address] [address] Aissatou Vásquez EO # 0.0 103/ul Normal 0.0-0.7 [facility] Comment on above: Performed By: #### L IVER, BMP, HSTROPN #### [facility] [address] [place] [address] Dr. Aissatou Vásquez Eosinophils/100 WBC (Bld) 0.3 % Critically low 0.9-7.0 [facility] Comment on above: Performed By: #### L IVER, BMP, HSTROPN #### [facility] [address] [place] [address] Dr. Aissatou Vásquez Erythrocyte distribution width (RBC) [Ratio] 13.8 % Normal 11.0-15.0 [facility] Comment on above: Performed By: #### L IVER, BMP, HSTROPN #### [facility] [address] [place] [address] Dr. Aissatou Vásquez Hematocrit (Bld) [Volume fraction] 31.7 % Critically low 42.0-54.0 [facility] Comment on above: Performed By: #### L IVER, BMP, HSTROPN #### [facility] [address] [place] [address] Dr. Aissatou Vásquez Hemoglobin (Bld) [Mass/Vol] 10.2 g/dL Critically low 14.0-18.0 [facility] Comment on above: Performed By: #### L IVER, BMP, HSTROPN #### [facility] [address] [place] [address] Dr. Aissatou Vásquez IG # 0.02 10e3/ul Normal 0.00-0.03 [facility] Comment on above: Performed By: #### L IVER, BMP, HSTROPN #### [facility] [address] [place] [address] Dr. Aissatou Vásquez IG % 0.3 % Normal 0.0-0.5 [facility] Comment on above: Performed By: #### L IVER, BMP, HSTROPN #### [facility] [address] [place] [address] Dr. Aissatou Vásquez LYMPH # 1.5 103/ul Normal 1.2-3.8 [facility] Comment on above: Performed By: #### L IVER, BMP, HSTROPN #### [facility] [address] [place] [address] Dr. Aissatou Vásquez Lymphocytes/100 WBC (Bld) 20.3 % Critically low 20.5-60.0 [facility] Comment on above: Performed By: #### L IVER, BMP, HSTROPN #### [facility] [address] [place] [address] Dr. Aissatou Vásquez MANUAL DIFF REQ NO Normal [facility] Comment on above: Performed By: #### L IVER, BMP, HSTROPN #### [facility] [address] [place] [address] Dr. Aissatou Vásquez MCH (RBC) [Entitic mass] 30.3 pg Normal 25.9-34.0 [facility] Comment on above: Performed By: #### L IVER, BMP, HSTROPN #### [facility] [address] [place] [address] Dr. Aissatou Vásquez MCHC (RBC) [Mass/Vol] 32.2 g/dL Normal 29.9-35.2 [facility] Comment on above: Performed By: #### L IVER, BMP, HSTROPN #### [facility] [address] [place] [address] Dr. Aissatou Vásquez MCV (RBC) [Entitic vol] 94.1 fL Critically high 80.0-94.0 [facility] Comment on above: Performed By: #### L IVER, BMP, HSTROPN #### [facility] [address] [place] [address] Dr. Aissatou Vásquez MONO # 0.7 103/ul Normal 0.3-0.8 [facility] Comment on above: Performed By: #### L IVER, BMP, HSTROPN #### [facility] [address] [place] [address] Dr. Aissatou Vásquez Monocytes/100 WBC (Bld) 9.9 % Normal 1.7-12.0 [facility] Comment on above: Performed By: #### L IVER, BMP, HSTROPN #### [facility] [address] [place] [address] Dr. Aissatou Vásquez NEUT # 4.9 103/ul Normal 1.4-6.5 [facility] Comment on above: Performed By: #### L IVER, BMP, HSTROPN #### [facility] [address] [place] [address] Dr. Aissatou Vásquez Neutrophils/100 WBC (Bld) 68.9 % Normal 43.0-75.0 [facility] Comment on above: Performed By: #### L IVER, BMP, HSTROPN #### [facility] [address] [place] [address] Dr. Aissatou Vásquez Platelet mean volume (Bld) [Entitic vol] 10.7 fL Normal 9.5-13.5 [facility] Comment on above: Performed By: #### L IVER, BMP, HSTROPN #### [facility] [address] [place] [address] Dr. Aissatou Vásquez PLT 141 103/ul Critically low 150-450 [facility] Comment on above: Performed By: #### L IVER, BMP, HSTROPN #### [facility] [address] [place] [address] Dr. Aissatou Vásquez RBC 3.37 106/ul Critically low 4.70-6.10 [facility] Comment on above: Performed By: #### L IVER, BMP, HSTROPN #### [facility] [address] [place] [address] Dr. Aissatou Vásquez WBC 7.1 103/ul Normal 4.0-11.0 [facility] Comment on above: Performed By: #### L IVER, BMP, HSTROPN #### [facility] [address] [place] [address] Dr. Aissatou Vásquez CPKon 07-03-2022 CK [Catalytic activity/Vol] 331 U/L Critically high 39-308 [facility] Comment on above: Performed By: #### L DHARA WAITE HSTROPN #### [facility] [address] [place], [place] [address] Vás[address] ABD/PELVIS WO CONon [...] STEPHEN ROUSE Date: 2022-07-03 11:06 Normal [facility] CULTURE BLOODon 07-03-2022 Microscopic examination of blood, culture Culture Observations: NO GROWTH AT 5 DAYS. Normal [facility] Comment on above: Performed By: #### B LDCX2 ####[facility] [address] [id number]. Aissatou Vásquez Microscopic examination of blood, culture Culture Observations: NO GROWTH AT 5 DAYS. Normal [facility] Comment on above: Performed By: #### B LDCX1 ####[facility] [address] [address]Dr. Aissatou Vásquez MAGNESIUMon 07-03-2022 Magnesium [Mass/Vol] 1.8 mg/dL Normal 1.8-2.4 [facility] Comment on above: Performed By: #### L IVER, BMP, HSTROPN #### [facility] [address] [address] [address] Aissatou Vásquez PHOSPHORUSon 07-03-2022 Phosphate [Mass/Vol] 4.0 mg/dL Normal 2.6-4.7 [facility] Comment on above: Performed By: #### L IVDHARA LANDRY, HSTROPN #### [facility] [address] [address] [address] Aissatou Vásquez POINT OF CARE GLUCOSEon 06-06 Glucose [Mass/Vol] 77 mg/dL Normal 74-106 [facility] Comment on above: Performed By: #### C ADAM #### [facility] [address] [place] [address] Dr. Aissatou Vásquez PROF 14(COMP METB)on 022 Albumin [Mass/Vol] 2.6 g/dL Critically low 3.4-5.0 [facility] Comment on above: Performed By: #### L IVER BMP, HSTROPN #### [facility] [address] [place] [address] Dr. Aissatou Vásquez Albumin/Globulin [Mass ratio] 0.9 {ratio} Normal [facility] Comment on above: Performed By: #### L IVER, BMP, HSTROPN #### [facility] [address] [place] [address] Dr. Aissatou Vásquez ALP [Catalytic activity/Vol] 81 U/L Normal 46-116 [facility] Comment on above: Performed By: #### L IVER, BMP, HSTROPN #### [facility] [address] [place] [address] Dr. Aissatou Vásquez ALT [Catalytic activity/Vol] 46 U/L Normal 16-63 [facility] Comment on above: Performed By: #### L IVER, BMP, HSTROPN #### [facility] [address] [address] [address] Aissatou Vásquez Anion gap [Moles/Vol] 11.9 mmol/L Normal Th [facility] Comment on above: Performed By: #### L IVER, BMP, HSTROPN #### [facility] [address] [address] [address] Aissatou Vásquez AST [Catalytic activity/Vol] 45 U/L Critically high 15-37 [facility] Comment on above: Performed By: #### L IVER, BMP, HSTROPN #### [facility] [address] [place] [address] Dr. Aissatou Vásquez Bilirubin [Mass/Vol] 0.2 mg/dL Normal 0.2-1.0 [facility] Comment on above: Performed By: #### L IVER, BMP, HSTROPN #### [facility] [address] [place] [address] Dr. Aissatou Vásquez Calcium [Mass/Vol] 8.5 mg/dL Normal 8.5-10.1 [facility] Comment on above: Performed By: #### L IVER, BMP, HSTROPN #### [facility] [address] [place] [address] Dr. Aissatou Vásquez Chloride [Moles/Vol] 108 mmol/L Critically high 98-107 [facility] Comment on above: Performed By: #### L IVER, BMP, HSTROPN #### [facility] [address] [place] [address] Dr. Aissatou Vásquez CO2 [Moles/Vol] 25.9 mmol/L Normal 21.0-32.0 [facility] Comment on above: Performed By: #### L IVER, BMP, HSTROPN #### [facility] [address] [place] [address] Dr. Aissatou Vásquez Creatinine [Mass/Vol] 2.34 mg/dL Critically high 0.70-1.30 [facility] Comment on above: Performed By: #### L IVER, BMP, HSTROPN #### [facility] [address] [place] [address] Dr. Aissatou Vásquez EGFR-AF VINCENTIAN 32 mL/min/1.73m2 Critically low >=60 [facility] Comment on above: Performed By: #### L IVER, BMP, HSTROPN #### [facility] [address] [place] [address] Dr. Aissatou Vásquez EGFR-NON AF VINCENTIAN 27 mL/min/1.73m2 Critically low >=60 [facility] Comment on above: Performed By: #### L IVER, BMP, HSTROPN #### [facility] [address] [place] [address] Dr. Aissatou Vásquez Globulin (S) [Mass/Vol] 3.0 g/dL Normal [facility] Comment on above: Performed By: #### L IVER, BMP, HSTROPN #### [facility] [address] [place] [address] Dr. Aissatou Vásquez Glucose [Mass/Vol] 93 mg/dL Normal 74-106 [facility] Comment on above: Performed By: #### L IVER, BMP, HSTROPN #### [facility] [address] [place] [address] Dr. Aissatou Vásquez Potassium [Moles/Vol] 4.8 mmol/L Normal 3.5-5.1 [facility] Comment on above: Performed By: #### L IVER, BMP, HSTROPN #### [facility] [address] [place] [address] Dr. Aissatou Vásquez Protein [Mass/Vol] 5.6 g/dL Critically low 6.4-8.2 [facility] Comment on above: Performed By: #### L IVER, BMP, HSTROPN #### [facility] [address] [place] [address] Dr. Aissatou Vásquez Sodium [Moles/Vol] 141 mmol/L Normal 136-145 [facility] Comment on above: Performed By: #### L IVER, BMP, HSTROPN #### [facility] [address] [address] [address] Aissatou Vásquez Urea nitrogen [Mass/Vol] 61.0 mg/dL Critically high 7.0-18.0 [facility] Comment on above: Performed By: #### L IVER, BMP, HSTROPN #### [facility] [address] [address] [address] Aissatou Vásquez Urea nitrogen/Creatinine [Mass ratio] 26.1 mg/mg Normal [facility] Comment on above: Performed By: #### L IVERDHARA, HSTROPN #### [facility] [address] [address] [address] Aissatou Vásquez PROTIMEon 07-03-2022 INR Coag (PPP) [Relative time] 1.12 {INR} Normal [facility] Comment on above: Performed By: #### C ADAM #### [facility] [address] [place] [address] Dr. Aissatou Vásquez INR GUIDELINES SEE BELOW Normal [facility] Comment on above: Result Comment: ELISABETH RED INR: 2.0 - 3.0 CONDITIONS NOT LISTED BELOW 2.5 - 3.5 FOR PROSTHETIC HEART VALVE REPLACEMENT 2.5 - 3.5 RECURRENT THROMBOSIS Performed By: #### C ADAM #### [facility] [address] [place] [address] Dr. Aissatou Vásquez PT Coag (PPP) [Time] 12.0 s Critically high 9.0-11.6 [facility] Comment on above: Performed By: #### C ADAM #### [facility] [address] [place] [address] Dr. Aissatou Vásquez CBC AUTO DIFFon 07-02-2022 BASO # 0.0 103/ul Normal 0.0-0.1 [facility] Comment on above: Performed By: #### C BC ####[facility] [address] [address]Dr. Aissatou Vásquez Basophils/100 WBC (Bld) 0.1 % Critically low 0.2-2.0 [facility] Comment on above: Performed By: #### C BC ####[facility] [address] [id number]. Aissatou Vásquez EO # 0.0 103/ul Normal 0.0-0.7 [facility] Comment on above: Performed By: #### C BC ####[facility] [address] [id number]. Aissatou Vásquez Eosinophils/100 WBC (Bld) 0.0 % Critically low 0.9-7.0 [facility] Comment on above: Performed By: #### C BC ####[facility] [address] [address]Dr. Aissatou Vásquez Erythrocyte distribution width (RBC) [Ratio] 13.4 % Normal 11.0-15.0 [facility] Comment on above: Performed By: #### C BC ####[facility] [address] [place], [place] [address]Dr. Aissatou Vásquez Hematocrit (Bld) [Volume fraction] 39.9 % Critically low 42.0-54.0 [facility] Comment on above: Performed By: #### C BC ####[facility] [address] [place], [place] [address]Dr. Aissatou Vásquez Hemoglobin (Bld) [Mass/Vol] 12.8 g/dL Critically low 14.0-18.0 [facility] Comment on above: Performed By: #### C BC ####[facility] [address] [place], [place] [address]Dr. Aissatou Vásquez IG # 0.05 10e3/ul Critically high 0.00-0.03 [facility] Comment on above: Performed By: #### C BC ####[facility] [address] [place], [place] [address]Dr. Aissatou Vásquez IG % 0.4 % Normal 0.0-0.5 [facility] Comment on above: Performed By: #### C BC ####[facility] [address] [place], [place] [address]Dr. Aissatou Vásquez LYMPH # 0.8 103/ul Critically low 1.2-3.8 [facility] Comment on above: Performed By: #### C BC ####[facility] [address] [id number]. Aissatou Vásquez Lymphocytes/100 WBC (Bld) 7.2 % Critically low 20.5-60.0 [facility] Comment on above: Performed By: #### C BC ####[facility] [address] [id number]. Aissatou Vásquez MANUAL DIFF REQ NO Normal [facility] Comment on above: Performed By: #### C BC ####[facility] [address] [id number]. Aissatou Vásquez MCH (RBC) [Entitic mass] 30.0 pg Normal 25.9-34.0 [facility] Comment on above: Performed By: #### C BC ####[facility] [address] [id number]. Aissatou Vásquez MCHC (RBC) [Mass/Vol] 32.1 g/dL Normal 29.9-35.2 [facility] Comment on above: Performed By: #### C BC ####[facility] [address] [id number]. Aissatou Vásquez MCV (RBC) [Entitic vol] 93.7 fL Normal 80.0-94.0 [facility] Comment on above: Performed By: #### C BC ####[facility] [address] [id number]. Aissatou Vásquez MONO # 0.8 103/ul Normal 0.3-0.8 [facility] Comment on above: Performed By: #### C BC ####[facility] [address] [id number]. Aissatou Vásquez Monocytes/100 WBC (Bld) 6.8 % Normal 1.7-12.0 [facility] Comment on above: Performed By: #### C BC ####[facility] [address] [id number]. Aissatou Vásquez NEUT # 9.8 103/ul Critically high 1.4-6.5 [facility] Comment on above: Performed By: #### C BC ####[facility] [address] [id number]. Aissatou Vásquez Neutrophils/100 WBC (Bld) 85.5 % Critically high 43.0-75.0 [facility] Comment on above: Performed By: #### C BC ####[facility] [address] [id number]. Aissatou Vásquez Platelet mean volume (Bld) [Entitic vol] 10.8 fL Normal 9.5-13.5 [facility] Comment on above: Performed By: #### C BC ####[facility] [address] [id number]. Aissatou Vásquez PLT 170 103/ul Normal 150-450 [facility] Comment on above: Performed By: #### C BC ####[facility] [id number] [place] [id number]. Aissatou Vásquez RBC 4.26 106/ul Critically low 4.70-6.10 [facility] Comment on above: Performed By: #### C BC ####[facility] [address] [place] [id number]. Aissatou Vásquez WBC 11.4 103/ul Critically high 4.0-11.0 [facility] [place] Comment on above: Performed By: #### C BC ####[facility] [address] [place] [id number]. Aissatou Vásquez CKMBon 07-02-2022 CK.MB [Mass/Vol] 80.91 ng/mL Critically high <=3.60 [facility] Comment on above: Performed By: #### L DHARA WAITE, HSTROPN #### [facility] [address] [address] [address] Aissatou Vásquez CPKon 07-02-2022 CK [Catalytic activity/Vol] 915 U/L Critically high 39-308 [facility] Comment on above: Performed By: #### L DHARA WAITE, HSTROPN #### [facility] [address] [address] [address] Aissatou Vásquez ECHOCARDIO M/2D COMPLETEon 1 09-02-2021 ECHOCARDIO M/2D COMPLETE Patient: LEANNA NELSON Exam Date: 07/02/2022 : 1940 Gender:M Ordering : SHAIKH Delphine RODRIGUEZ . Admission #: [id number] Family : PIPE HOPKINS . Order #: [id number] CLICK HERE TO VIEW EXAM ECHOCARDIOGRAM REPORT [...] Cameron M.D. on 07/08/2022 at 09:55 Normal [facility] MAGNESIUMon 07-02-2022 Magnesium [Mass/Vol] 1.9 mg/dL Normal 1.8-2.4 [facility] Comment on above: Performed By: #### L DHARA WAITE, HSVALDEMAROPRadha #### [facility] [address] [address] [address] Aissatou Vásquez MYOGLOBINon 07-02-2022 SARAH 1312 ng/mL Critically high 16-96 [facility] Comment on above: Performed By: #### L IVDHARA LANDRY, HSTROPN #### [facility] [address] [address] [address] Aissatou Vásquez PHOSPHORUSon 07-02-2022 Phosphate [Mass/Vol] 6.0 mg/dL Critically high 2.6-4.7 [facility] Comment on above: Performed By: #### L IVDHARA LANDRY, HSTROPN #### [facility] [address] [address] [address] Aissatou Vásquez POINT OF CARE GLUCOSEon 06-06 Glucose [Mass/Vol] 78 mg/dL Normal 74-106 [facility] Comment on above: Performed By: #### C ADAM #### [facility] [address] [address] [address] Aissatou Vásquez Glucose [Mass/Vol] 104 mg/dL Normal 74-106 [facility] Comment on above: Performed By: #### P OCGLUC ####[facility] [address] [place] [address]Dr. Aissatou Vásquez Glucose [Mass/Vol] 83 mg/dL Normal 74-106 [facility] Comment on above: Performed By: #### L DHARA WAITE, HSTROPN #### [facility] [address] [address] [address] Aissatou Vásquez Glucose [Mass/Vol] 100 mg/dL Normal 74-106 [facility] Comment on above: Performed By: #### C ADAM #### [facility] [address] [address] [address] Aissatou Vásquez Glucose [Mass/Vol] 73 mg/dL Critically low 74-106 [facility] Comment on above: Performed By: #### P OCGLUC ####[facility] [address] [place] [address]Dr. Aissatou Vásquez PROF 14(COMP METB)on 022 Albumin [Mass/Vol] 3.3 g/dL Critically low 3.4-5.0 [facility] Comment on above: Performed By: #### L IVER, BMP, HSTROPN #### [facility] [address] [place] [address] Dr. Aissatou Vásquez Albumin/Globulin [Mass ratio] 1.0 {ratio} Normal [facility] Comment on above: Performed By: #### L IVER, BMP, HSTROPN #### [facility] [address] [place] [address] Dr. Aissatou Vásquez ALP [Catalytic activity/Vol] 114 U/L Normal 46-116 [facility] Comment on above: Performed By: #### L IVER, BMP, HSTROPN #### [facility] [address] [place] [address] Dr. Aissatou Vásquez ALT [Catalytic activity/Vol] 48 U/L Normal 16-63 [facility] Comment on above: Performed By: #### L IVER, BMP, HSTROPN #### [facility] [address] [place] [address] Dr. Aissatou Vásquez Anion gap [Moles/Vol] 17.3 mmol/L Normal [facility] Comment on above: Performed By: #### L IVER, BMP, HSTROPN #### [facility] [address] [place] [address] Dr. Aissatou Vásquez AST [Catalytic activity/Vol] 68 U/L Critically high 15-37 [facility] Comment on above: Performed By: #### L IVER, BMP, HSTROPN #### [facility] [address] [place] [address] Dr. Aissatou Vásquez Bilirubin [Mass/Vol] 0.5 mg/dL Normal 0.2-1.0 [facility] Comment on above: Performed By: #### L IVER, BMP, HSTROPN #### [facility] [address] [place] [address] Dr. Aissatou Vásquez Calcium [Mass/Vol] 8.9 mg/dL Normal 8.5-10.1 [facility] Comment on above: Performed By: #### L IVER, BMP, HSTROPN #### [facility] [address] [address] [address] Aissatou Vásquez Chloride [Moles/Vol] 109 mmol/L Critically high 98-107 [facility] Comment on above: Performed By: #### L IVER, BMP, HSTROPN #### [facility] [address] [place] [address] Dr. Aissatou Vásquez CO2 [Moles/Vol] 22.8 mmol/L Normal 21.0-32.0 [facility] [place] Comment on above: Performed By: #### L IVER, BMP, HSTROPN #### [facility] [address] [place] [address] Dr. Aissatou Vásquez Creatinine [Mass/Vol] 1.89 mg/dL Critically high 0.70-1.30 [facility] Comment on above: Performed By: #### L IVER, BMP, HSTROPN #### [facility] [address] [place] [address] Dr. Aissatou Vásquez EGFR-AF VINCENTIAN 41 mL/min/1.73m2 Critically low >=60 [facility] Comment on above: Result Comment: Prev iously reported as: (blank) On 07/02/2022 05:50 By KD3 Performed By: #### L IVER, BMP, HSTROPN #### [facility] [address] [place] [address] Dr. Aissatou Vásquez EGFR-NON AF VINCENTIAN 34 mL/min/1.73m2 Critically low >=60 [facility] Comment on above: Result Comment: Prev iously reported as: (blank) On 07/02/2022 05:50 By KD3 Performed By: #### L IVER, BMP, HSTROPN #### [facility] [address] [place] [address] Dr. Aissatou Vásquez Globulin (S) [Mass/Vol] 3.4 g/dL Normal [facility] Comment on above: Performed By: #### L IVER, BMP, HSTROPN #### [facility] [address] [address] [address] Aissatou Vásquez Glucose [Mass/Vol] 86 mg/dL Normal 74-106 [facility] Comment on above: Performed By: #### L IVER, BMP, HSTROPN #### [facility] [address] [address] [address] Aissatou Vásquez Potassium [Moles/Vol] 5.1 mmol/L Normal 3.5-5.1 [facility] Comment on above: Performed By: #### L IVER, BMP, HSTROPN #### [facility] [address] [address] [address] Aissatou Vásquez Protein [Mass/Vol] 6.7 g/dL Normal 6.4-8.2 [facility] Comment on above: Performed By: #### L IVER, BMP, HSTROPN #### [facility] [address] [place] [address] Dr. Aissatou Vásquez Sodium [Moles/Vol] 144 mmol/L Normal 136-145 [facility] Comment on above: Performed By: #### L IVER, BMP, HSTROPN #### [facility] [address] [address] [address] Aissatou Vásquez Urea nitrogen [Mass/Vol] 55.0 mg/dL Critically high 7.0-18.0 [facility] Comment on above: Performed By: #### L IVER, BMP, HSTROPN #### [facility] [address] [address] [address] Aissatou Vásquez Urea nitrogen/Creatinine [Mass ratio] 29.1 mg/mg Normal [facility] Comment on above: Performed By: #### L IVER, BMP, HSTROPN #### [facility] [address] [place] [address] Dr. Aissatou Vásquez PROTIMEon 07-02-2022 INR Coag (PPP) [Relative time] 1.13 {INR} Normal [facility] Comment on above: Performed By: #### L IVER, BMP, HSTROPN #### [facility] [address] [place] [address] Dr. Aissatou Vásquez INR GUIDELINES SEE BELOW Normal [facility] Comment on above: Result Comment: ELISABETH RED INR: 2.0 - 3.0 CONDITIONS NOT LISTED BELOW 2.5 - 3.5 FOR PROSTHETIC HEART VALVE REPLACEMENT 2.5 - 3.5 RECURRENT THROMBOSIS Performed By: #### L IVER, BMP, HSTROPN #### [facility] [address] [place] [address] Dr. Aissatou Vásquez PT Coag (PPP) [Time] 12.1 s Critically high 9.0-11.6 [facility] Comment on above: Performed By: #### L IVER, BMP, HSTROPN #### [facility] [address] [place] [address] Dr. Aissatou Vásquez BLOOD CULTURE ID PANELon A. baumannii Not detected Normal NOT DETECTED [facility] Comment on above: Performed By: #### C ADAM #### [facility] [address] [place] [address] Dr. Aissatou Vásquez Bacteriodes fragilis Not detected Normal NOT DETECTED [facility] Comment on above: Performed By: #### C ADAM #### [facility] [address] [place] [address] Dr. Aissatou Vásquez BCID CONTROLS PASSED Normal [facility] Comment on above: Performed By: #### C ADAM #### [facility] [address] [place] [address] Dr. Aissatou Vásquez BCIDBTHD BLOOD CULTURE BOTTLE INFORMATION Normal [facility] Comment on above: Performed By: #### C ADAM #### [facility] [address] [place] [address] Dr. Aissatou Vásquez BCIDHD1 ANTIMICROBIAL RESISTANCE GENES Normal [facility] Comment on above: Performed By: #### C ADAM #### [facility] [address] [place] [address] Dr. Aissatou Vásquez BCIDHD2 SEE BELOW Normal [facility] Comment on above: Result Comment: Note : Antimicrobial resitance can occur via multiple mechanisms. A Not Detected result for the [employer] antomicrobial resistance gene assays does not indicate antimicrobial susceptibility. Subculturing is required for species identification and susceptibility testing of isolates. Performed By: #### C ADAM #### [facility] [address] [place] [address] Dr. Aissatou Vásquez BCIDHD3 Positive Normal [facility] Comment on above: Performed By: #### C ADAM #### [facility] [address] [place] [address] Dr. Aissatou Vásquez BCIDHD4 Negative Normal [facility] Comment on above: Performed By: #### C ADAM #### [facility] [address] [place] [address] Dr. Aissatou Vásquez BCIDHD5 YEAST Normal [facility] Comment on above: Performed By: #### C ADAM #### [facility] [address] [place] [address] Dr. Aissatou Ruiz Set: Set 2 [facility] Comment on above: Performed By: #### C ADAM #### [facility] [address] [place] [address] Dr. Aissatou Vásquez Bottle: Pediatric Normal [facility] Comment on above: Performed By: #### C ADAM #### [facility] [address] [place] [address] Dr. Aissatou Vásquez C. neoformans/gattii Not detected Normal NOT DETECTED [facility] Comment on above: Performed By: #### C ADAM #### [facility] [address] [place] [address] Dr. Aissatou Vásquez Soraya albicans Not detected Normal NOT DETECTED [facility] Comment on above: Performed By: #### C ADAM #### [facility] [address] [place] [address] Dr. Aissatou Vásquez Soraya auris Not detected Normal NOT DETECTED [facility] Comment on above: Performed By: #### C ADAM #### [facility] [address] [place] [address] Dr. Aissatou Vásquez Soraya glabrata Not detected Normal NOT DETECTED [facility] Comment on above: Performed By: #### C ADAM #### [facility] [address] [place] [address] Dr. Yilan Vásquez Soraya Krusei Not detected Normal NOT DETECTED [facility] Comment on above: Performed By: #### C ADAM #### [facility] [address] [place] [address] Dr. Aissatou Vásquez Soraya Parapsilosis Not detected Normal NOT DETECTED [facility] Comment on above: Performed By: #### C ADAM #### [facility] [address] [place] [address] Dr. Aissatou Vásquez Soraya Tropicalis Not detected Normal NOT DETECTED [facility] Comment on above: Performed By: #### C ADAM #### [facility] [address] [place] [address] Dr. Aissatou Vásquez CTX-M Resistant Gene Not detected Normal NOT DETECTED [facility] Comment on above: Performed By: #### C ADAM #### [facility] [address] [place] [address] Dr. Aissatou Vásquez E. Cloacae complex Not detected Normal NOT DETECTED [facility] Comment on above: Performed By: #### C ADAM #### [facility] [address] [place] [address] Dr. Aissatou Vásquez E. faecalis Not detected Normal NOT DETECTED [facility] Comment on above: Performed By: #### C ADAM #### [facility] [address] [place] [address] Dr. Aissatou Vásquez E. faecium Not detected Normal NOT DETECTED [facility] Comment on above: Performed By: #### C ADAM #### [facility] [address] [place] [address] Dr. Aissatou Vásquez Enterobacteriaceae Detected Critically abnormal NOT DETECTED [facility] Comment on above: Performed By: #### C ADAM #### [facility] [address] [place] [address] Dr. Aissatou Vásquez Escherichia coli Not detected Normal NOT DETECTED [facility] Comment on above: Performed By: #### C ADAM #### [facility] [address] [place] [address] Dr. Aissatou Vásquez H. influenzae Not detected Normal NOT DETECTED [facility] Comment on above: Performed By: #### C ADAM #### [facility] [address] [place] [address] Dr. Aissatou Vásquez IMP Resistant Gene Not detected Normal NOT DETECTED [facility] Comment on above: Performed By: #### C ADAM #### [facility] [address] [place] [address] Dr. Aissatou Vásquez K. oxytoca Not detected Normal NOT DETECTED [facility] Comment on above: Performed By: #### C ADAM #### [facility] [address] [place] [address] Dr. Aissatou áVsquez K. pneumoniae Not detected Normal NOT DETECTED [facility] Comment on above: Performed By: #### C ADAM #### [facility] [address] [place] [address] Dr. Aissatou Vásquez Klebsiella aerogenes Not detected Normal NOT DETECTED [facility] Comment on above: Performed By: #### C ADAM #### [facility] [address] [place] [address] Dr. Aissatou Vásquez KPC Resistant Gene Not detected Normal NOT DETECTED [facility] Comment on above: Performed By: #### C ADAM #### [facility] [address] [place] [address] Dr. Aissatou Vásquez List. monocytogenes Not detected Normal NOT DETECTED [facility] Comment on above: Performed By: #### C ADAM #### [facility] [address] [place] [address] Dr. Aissatou Vásquez Mcr-1 Resistant Gene Not Applicable Normal NOT DETECTE D [facility] Comment on above: Performed By: #### C ADAM #### [facility] [address] [place] [address] Dr. Aissatou Vásquez mecA/C Not Applicable Normal NOT DETECTED [facility] Comment on above: Performed By: #### C ADAM #### [facility] [address] [place] [address] Dr. Aissatou Vásquez mecA/C MREJ Not Applicable Normal NOT DETECTED [facility] Comment on above: Performed By: #### C ADAM #### [facility] [address] [place] [address] Dr. Aissatou Vásquez N. meningitidis Not detected Normal NOT DETECTED [facility] Comment on above: Performed By: #### C ADAM #### [facility] [address] [address] [address] Aissatou Vásquez NDM Resistant Gene Not detected Normal NOT DETECTED [facility] Comment on above: Performed By: #### C ADAM #### [facility] [address] [place] [address] Dr. Aissatou Vásquez Oxa-48-like Not detected Normal NOT DETECTED [facility] Comment on above: Performed By: #### C ADAM #### [facility] [address] [place] [address] Dr. Aissatou Vásquez Proteus Not detected Normal NOT DETECTED [facility] Comment on above: Performed By: #### C ADAM #### [facility] [address] [place] [address] Dr. Aissatou Vásquez Pseud. aeruginosa Not detected Normal NOT DETECTED [facility] Comment on above: Performed By: #### C ADAM #### [facility] [address] [place] [address] Dr. Aissatou Vásquez S. maltophilia Not detected Normal NOT DETECTED [facility] Comment on above: Performed By: #### C ADAM #### [facility] [address] [place] [address] Dr. Aissatou Vásquez Salmonella Not detected Normal NOT DETECTED [facility] Comment on above: Performed By: #### C ADAM #### [facility] [address] [place] [address] Dr. Aissatou Vásquez Seratia marcescens Not detected Normal NOT DETECTED [facility] Comment on above: Performed By: #### C ADAM #### [facility] [address] [place] [address] Dr. Aissatou Vásquez Site: IV Normal [facility] Comment on above: Performed By: #### C ADAM #### [facility] [address] [place] [address] Dr. Aissatou Vásquez Staph. aureus Not detected Normal NOT DETECTED [facility] Comment on above: Performed By: #### C ADAM #### [facility] [address] [place] [address] Dr. Aissatou Vásquez Staph. epidermidis Not detected Normal NOT DETECTED [facility] Comment on above: Performed By: #### C ADAM #### [facility] [address] [place] [address] Dr. Aissatou Vásquez Staph. lugdunensis Not detected Normal NOT DETECTED [facility] Comment on above: Performed By: #### C ADAM #### [facility] [address] [place] [address] Dr. Aissatou Vásquez Staphylococcus Not detected Normal NOT DETECTED [facility] Comment on above: Performed By: #### C ADAM #### [facility] [address] [place] [address] Dr. Aissatou Vásquez Strep. agalactiae Not detected Normal NOT DETECTED [facility] Comment on above: Performed By: #### C ADAM #### [facility] [address] [place] [address] Dr. Aissatou Vásquez Strep. pneumoniae Not detected Normal NOT DETECTED [facility] Comment on above: Performed By: #### C ADAM #### [facility] [address] [place] [address] Dr. Aissatou Vásquez Strep. pyogenes Not detected Normal NOT DETECTED [facility] Comment on above: Performed By: #### C ADAM #### [facility] [address] [place] [address] Dr. Aissatou Vásquez Streptococcus Not detected Normal NOT DETECTED [facility] Comment on above: Performed By: #### C ADAM #### [facility] [address] [place] [address] Dr. Aissatou Vásquez Akila/B Resist. Gene Not Applicable Normal NOT DETECTED [facility] Comment on above: Performed By: #### C ADAM #### [facility] [address] [place] [address] Dr. Aissatou Vásquez VIM Resistant Gene Not detected Normal NOT DETECTED [facility] Comment on above: Performed By: #### C ADAM #### [facility] [address] [address] [address] Aissatou Vásquez CBC W MANUAL DIFFon 07-01-20 22 ATYPICAL LYMPH # Normal [facility] Comment on above: Performed By: #### C ABUNDIO ####[facility] [address] [place] [id number]. Aissatou Vásquez ATYPICAL LYMPH % Normal [facility] Comment on above: Performed By: #### C ABUNDIO ####[facility] [address] [place] [address]Dr. Aissatou Vásquez BAND # 0.4 103/ul Critically high 0.0-0.3 [facility] Comment on above: Performed By: #### C ABUNDIO ####[facility] [address] [place] [address]Dr. Aissatou Vásquez BAND % 3 % Normal 0-5 [facility] Comment on above: Performed By: #### C ABUNDIO ####[facility] [address] [place], [place] [address]Dr. Aissatou Vásquez BASOM # 0.00 103/ul Normal 0.00-0.10 [facility] Comment on above: Performed By: #### C ABUNDIO ####[facility] [address] [place] [address]Dr. Aissatou Vásquez BASOM % 0.0 % Critically low 0.2-2.0 [facility] Comment on above: Performed By: #### C ABUNDIO ####[facility] [address] [place] [address]Dr. Sheysarah Vásquez BLAST # Normal [facility] Comment on above: Performed By: #### C ABUNDIO ####[facility] [address] [place] [address]Dr. Aissatou Vásquez BLAST % Normal [facility] Comment on above: Performed By: #### C ABUNDIO ####[facility] [address] [place] [address]Dr. Aissatou Vásquez CORRECTED WBC Normal 4.0-11.0 [facility] Comment on above: Performed By: #### C ABUNDIO ####[facility] [address] [place], [place] [address]Nb. Aissatou Vásquez EOS # 0.12 103/ul Normal 0.00-0.70 [facility] Comment on above: Performed By: #### C ABUNDIO ####[facility] [address] [place], [place] [address]Ln. Aissatou Vásquez EOS% 1.0 % Normal 0.9-7.0 [facility] Comment on above: Performed By: #### C ABUNDIO ####[facility] [address] [place], [place] [address]Zx. Aissatou Vásquez HCT 46.0 % Normal 42.0-54.0 [facility] Comment on above: Performed By: #### C ABUNDIO ####[facility] [address] [place] [id number]. Aissatou Vásquez HGB 14.6 g/dl Normal 14.0-18.0 [facility] Comment on above: Performed By: #### C ABUNDIO ####[facility] [address] [place], [place] [address]Bn. Aissatou Vásquez LYMPHM # 0.62 103/ul Critically low 1.20-3.80 [facility] Comment on above: Performed By: #### C ABUNDIO ####[facility] [address] [place], [place] [address]Mi. Aissatou Vásquez LYMPHM% 5.0 % Critically low 20.5-60.0 [facility] Comment on above: Performed By: #### C ABUNDIO ####[facility] [address] [place], [place] [address]Pc. Aissatou Vásquez MCH 29.9 pg Normal 25.9-34.0 [facility] Comment on above: Performed By: #### C ABUNDIO ####[facility] [address] [place] [id number]. Aissatou Vásquez MCHC 31.7 g/dl Normal 29.9-35.2 [facility] Comment on above: Performed By: #### C ABUNDIO ####[facility] [address] [place] [id number]. Aissatou Vásquez MCV 94.1 fL Critically high 80.0-94.0 [facility] Comment on above: Performed By: #### C BCMAN ####[facility] [address] [place] [id number]. Aissatou Vásquez METAMYELOCYTE # Normal [facility] Comment on above: Performed By: #### C ABUNDIO ####[facility] [address] [place] [id number]. Aissatou Vásquez METAMYELOCYTE % Normal [facility] Comment on above: Performed By: #### C ABUNDIO ####[facility] [address] [place], [place] [address]Dr. Aissatou Vásquez MONOM# 0.62 103/ul Normal 0.30-0.80 [facility] Comment on above: Performed By: #### C ABUNDIO ####[facility] [address] [place], [place] [address]Dr. Aissatou Vásquez MONOM% 5.0 % Normal 1.7-12.0 [facility] Comment on above: Performed By: #### C ABUNDIO ####[facility] [address] [place], [place] [address]Dr. Aissatou Vásquez MPV 10.4 fL Normal 9.5-13.5 [facility] Comment on above: Performed By: #### C ABUNDIO ####[facility] [address] [place], [place] [address]Dr. Aissatou Vásquez MYELOCYTE # Normal [facility] Comment on above: Performed By: #### C ABUNDIO ####[facility] [address] [place] [id number]. Aissatou Vásquez MYELOCYTE % Normal [facility] Comment on above: Performed By: #### C ABUNDIO ####[facility] [address] [place], [place] [address]Dr. Aissatou Vásquez NRBC Normal [facility] Comment on above: Performed By: #### C ABUNDIO ####[facility] [address] [place], [place] [address]DrBud Vásquez PLT 171 103/ul Normal 150-450 [facility] Comment on above: Performed By: #### C ABUNDIO ####[facility] [address] [place], [place] [address]DoBud Vásquez RBC 4.89 106/ul Normal 4.70-6.10 [facility] Comment on above: Performed By: #### C ABUNDIO ####[facility] [address] [place], [place] [address]RkBud Vásquez RDW 13.4 % Normal 11.0-15.0 [facility] Comment on above: Performed By: #### C ABUNDIO ####[facility] [address] [place], [place] [address]ScBud Vásquez SEG # 10.66 103/ul Critically high 1.40-6.50 [facility] Comment on above: Performed By: #### Soni DEL CASTILLO ####[facility] [address] [place], [place] [address]JaBud Vásquez SEG % 86.0 % Critically high 43.0-75.0 [facility] Comment on above: Performed By: #### C ABUNDIO ####[facility] [address] [place], [place] [address]YdBud Vásquez WBC 12.4 103/ul Critically high 4.0-11.0 [facility] [place] Comment on above: Performed By: #### C ABUNDIO ####[facility] [address] [place], [place] [address]CiDr. Aissatou Vásquez CPKon 07-01-2022 CK [Catalytic activity/Vol] 1646 U/L Critically high 39-308 [facility] Comment on above: Performed By: #### L IVER, BMP, HSTROPN #### [facility] [address] [place], [place] [address] Dr[address] Aissatou Vásquez [address] CSPINE WO CONon [...] KOKO ROMANO Date: 2022-07-01 19:22 Normal [facility] CT STROKE HEAD WOon 07-01-[address] [...] BERNADETTE BEDOLLA Date: 2022-07-01 17:37 Normal [facility] CULTURE BLOODon 07-01-2022 Microscopic examination of blood, culture Culture Observations: NO GROWTH AT 5 DAYS. Normal [facility] Comment on above: Performed By: #### B LDCX1 ####[facility] [address] [place], [place] [address]ZyDr. Aissatou Vásquez Covid-19 PCR ([facility])on 06-06 SARS-CoV-2 (COVID-19) RNA HALLE+probe Ql (Unsp spec) Not detected Normal NOT DETECTED [facility] Comment on above: Result Comment: When diagnostic [...] for this test is supported by the [place] of Health and Human Service's declaration that [...] By: #### L IVER, BMP, HSTROPN #### [facility] [address] [place], [place] [address] Dr. Aissatou Vásquez DRUG SCREEN RAPID (URINE)on 07-01-2022 AMP Negative Normal NEGATIVE [facility] Comment on above: Performed By: #### C ADAM #### [facility] [address] [place], [place] [address] Dr. Aissatou Vásquez BAR Negative Normal NEGATIVE [facility] Comment on above: Performed By: #### C ADAM #### [facility] [address] [place] [address] Dr. Aissatou Vásquez BUP Negative Normal NEGATIVE [facility] Comment on above: Performed By: #### C ADAM #### [facility] [address] [place] [address] Dr. Aissatou Vásquez BZO Negative Normal NEGATIVE [facility] Comment on above: Performed By: #### C ADAM #### [facility] [address] [place] [address] Dr. Aissatou Vásquez MARYJANE Negative Normal NEGATIVE [facility] Comment on above: Performed By: #### C ADAM #### [facility] [address] [place] [address] Dr. Aissatou Vásquez CUT-OFFS SEE BELOW Normal [facility] Comment on above: Result Comment: AMP (Amphetamine): 500ng/mL, BAR (Barbituates): 200 ng/mL, BZO (Benzodiazepines): 150 ng/mL, BUP (Buprenorphine): 10 ng/mL, MARYJANE (Cocaine): 150 ng/mL, mAMP (Methamphetamine): 500 ng/mL, MTD (Methadone): 200 ng/mL, OPI (Opiates): 100 ng/mL, OXY (Oxycodone): 100 ng/mL, PCP (Phencyclidine): 25 ng/mL, PPX (Propoxyphene): 300 ng/mL, THC (Cannabinoids): 50 ng/mL, TCA (Trycyclic Antidepressants): 300 ng/mL Performed By: #### C ADAM #### [facility] [address] [place] [address] Dr. Aissatou Vásquez DRUG CUT HEADER DRUG CLASS TEST SYSTEM CUT-OFF CONCENTRATIONS ARE FOLLOWS: Normal [facility] Comment on above: Performed By: #### C ADAM #### [facility] [address] [place] [address] Dr. Aissatou Vásquez mAMP Negative Normal NEGATIVE [facility] Comment on above: Performed By: #### C ADAM #### [facility] [address] [place] [address] Dr. Aissatou Vásquez MTD Negative Normal NEGATIVE [facility] Comment on above: Performed By: #### C ADAM #### [facility] [address] [place] [address] Dr. Aissatou Vásquez OPI Negative Normal NEGATIVE [facility] Comment on above: Performed By: #### C ADAM #### [facility] [address] [place] [address] Dr. Aissatou Vásquez OXY Negative Normal NEGATIVE [facility] Comment on above: Performed By: #### C ADAM #### [facility] [address] [place] [address] Dr. Aissatou Vásquez PCP Negative Normal NEGATIVE [facility] Comment on above: Performed By: #### C ADAM #### [facility] [address] [place] [address] Dr. Aissatou Vásquez PPX Negative Normal NEGATIVE [facility] Comment on above: Performed By: #### C ADAM #### [facility] [address] [place] [address] Dr. Aissatou Vásquez TCA Negative Normal NEGATIVE [facility] Comment on above: Performed By: #### C ADAM #### [facility] [address] [place] [address] Dr. Aissatou Vásquez THC Negative Normal NEGATIVE [facility] Comment on above: Performed By: #### C ADAM #### [facility] [address] [place] [address] Dr. Aissatou Vásquez ER URINE PROFILEon 2 Bilirubin Ql (U) Negative Normal NEGATIVE [facility] [place] Comment on above: Performed By: #### C ADAM #### [facility] [address] [place] [address] Dr. Aissatou Vásquez Clarity (U) CLEAR Normal CLEAR [facility] Comment on above: Performed By: #### C ADAM #### [facility] [address] [place] [address] Dr. Aissatou Vásquez Color (U) YELLOW Normal YELLOW [facility] Comment on above: Performed By: #### C ADAM #### [facility] [address] [place] [address] Dr. Aissatou Vásquez ERUELIECER A micrscopic examination will be performed if indicated. Normal [facility] Comment on above: Performed By: #### C ADAM #### [facility] [address] [place] [address] [address] Aissatou Vásquez Glucose Ql (U) Negative Normal NEGATIVE [facility] Comment on above: Performed By: #### C ADAM #### [facility] [address] [place] [address] [address] Aissatou Vásquez Hemoglobin Ql (U) MODERATE Abnormal NEGATIVE [facility] Comment on above: Performed By: #### C ADAM #### [facility] [address] [place] [address] [address] Aissatou Vásquez Ketones Ql (U) 15 mg/dl Abnormal NEGATIVE [facility] Comment on above: Performed By: #### C ADAM #### [facility] [address] [place] [address] Dr. Aissatou Vásquez LEUKOCYTES Negative Normal NEGATIVE [facility] Comment on above: Performed By: #### C ADAM #### [facility] [address] [place] [address] Dr. Aissatou Vásquez Nitrite Ql (U) Negative Normal NEGATIVE [facility] Comment on above: Performed By: #### C ADAM #### [facility] [address] [place] [address] Dr. Aissatou Vásquez pH (U) 5.0 [pH] Normal 5-9 [facility] Comment on above: Performed By: #### C ADAM #### [facility] [address] [place] [address] Dr. Aissatou Vásquez SPEC GRAVITY 1.025 Normal 1.005-<=1.025 [facility] Comment on above: Performed By: #### C ADAM #### [facility] [address] [place] [address] Dr. Aissatou Vásquez UA PROTEIN TRACE Normal NEGATIVE/ TRACE [facility] Comment on above: Performed By: #### C ADAM #### [facility] [address] [place] [address] Dr. Aissatou Vásquez UR MICRO IND INDICATED Normal [facility] Comment on above: Performed By: #### C ADAM #### [facility] [address] [place] [address] Dr. Aissatou Vásquez Urobilinogen Qn (U) 0.2 {Ilene'U}/dL Normal 0.2 - 1. 0 [facility] Comment on above: Performed By: #### C ADAM #### [facility] [address] [address] [address] Aissatou Vásquez LIVER PROFILEon 07-01-2022 Albumin [Mass/Vol] 3.7 g/dL Normal 3.4-5.0 [facility] Comment on above: Performed By: #### L IVER, BMP, HSTROPN #### [facility] [address] [address] [address] Aissatou Vásquez Albumin/Globulin [Mass ratio] 0.9 {ratio} Normal [facility] Comment on above: Performed By: #### L IVER, BMP, HSTROPN #### [facility] [address] [place] [address] Dr. Aissatou Vásquez ALP [Catalytic activity/Vol] 143 U/L Critically high 46-116 [facility] Comment on above: Performed By: #### L IVER, BMP, HSTROPN #### [facility] [address] [place] [address] [address] Aissatou Vásquez ALT [Catalytic activity/Vol] 56 U/L Normal 16-63 [facility] Comment on above: Performed By: #### L IVER, BMP, HSTROPN #### [facility] [address] [address] [address] Aissatou Vásquez AST [Catalytic activity/Vol] 87 U/L Critically high 15-37 [facility] Comment on above: Performed By: #### L IVER, BMP, HSTROPN #### [facility] [address] [address] [address] Aissatou Vásquez BILI, CONJUGATED 0.2 mg/dL Normal 0.0-0.2 [facility] [place] Comment on above: Performed By: #### L IVER, BMP, HSTROPN #### [facility] [address] [address] [address] Aissatou Vásquez Bilirubin [Mass/Vol] 0.6 mg/dL Normal 0.2-1.0 [facility] Comment on above: Performed By: #### L IVER, BMP, HSTROPN #### [facility] [address] [place] [address] Dr. Aissatou Vásquez Globulin (S) [Mass/Vol] 3.9 g/dL Normal [facility] Comment on above: Performed By: #### L IVER, BMP, HSTROPN #### [facility] [address] [place] [address] Dr. Aissatou Vásquez Protein [Mass/Vol] 7.6 g/dL Normal 6.4-8.2 [facility] Comment on above: Performed By: #### L IVER, BMP, HSTROPN #### [facility] [address] [place] [address] Dr. Aissatou Vásquez MYOGLOBINon 07-01-2022 SARAH 2042 ng/mL Critically high 16-96 [facility] Comment on above: Performed By: #### L IVER, BMP, HSTROPN #### [facility] [address] [place] [address] Dr. Aissatou Vásquez PROF CHEM 8 (BAS METB)on Anion gap [Moles/Vol] 18.5 mmol/L Normal [facility] Comment on above: Performed By: #### L IVER, BMP, HSTROPN #### [facility] [address] [place] [address] Dr. Aissatou Vásquez Calcium [Mass/Vol] 9.8 mg/dL Normal 8.5-10.1 [facility] Comment on above: Performed By: #### L IVER, BMP, HSTROPN #### [facility] [address] [place] [address] Dr. Aissatou Vásquez Chloride [Moles/Vol] 104 mmol/L Normal 98-107 [facility] Comment on above: Performed By: #### L IVER, BMP, HSTROPN #### [facility] [address] [place] [address] Dr. Aissatou Vásquez CO2 [Moles/Vol] 24.3 mmol/L Normal 21.0-32.0 [facility] [place] Comment on above: Performed By: #### L IVER, BMP, HSTROPN #### [facility] [address] [address] [address] Aissatou Vásquez Creatinine [Mass/Vol] 1.74 mg/dL Critically high 0.70-1.30 [facility] Comment on above: Performed By: #### L IVER, BMP, HSTROPN #### [facility] [address] [address] [address] Aissatou Vásquez EGFR-AF VINCENTIAN 46 mL/min/1.73m2 Critically low >=60 [facility] Comment on above: Performed By: #### L IVER, BMP, HSTROPN #### [facility] [address] [place] [address] [address] Aissatou Vásquez EGFR-NON AF VINCENTIAN 38 mL/min/1.73m2 Critically low >=60 [facility] Comment on above: Performed By: #### L IVER, BMP, HSTROPN #### [facility] [address] [address] [address] Aissatou Vásquez Glucose [Mass/Vol] 115 mg/dL Critically high 74-106 [facility] Comment on above: Performed By: #### L IVER, BMP, HSTROPN #### [facility] [address] [address] [address] Aissatou Vásquez Potassium [Moles/Vol] 4.8 mmol/L Normal 3.5-5.1 [facility] Comment on above: Performed By: #### L IVER, BMP, HSTROPN #### [facility] [address] [address] [address] Aissatou Vásquez Sodium [Moles/Vol] 142 mmol/L Normal 136-145 [facility] Comment on above: Performed By: #### L IVER, BMP, HSTROPN #### [facility] [address] [address] [address] Aissatou Vásquez Urea nitrogen [Mass/Vol] 54.0 mg/dL Critically high 7.0-18.0 [facility] Comment on above: Performed By: #### L IVER BMP, HSTROPN #### [facility] [address] [place] [address] [address] Aissatou Vásquez Urea nitrogen/Creatinine [Mass ratio] 31.0 mg/mg Normal [facility] Comment on above: Performed By: #### L IVER BMP, HSTROPN #### [facility] [address] [address] [address] Aissatou Vásquez TROPONIN, HIGH SENSITIVITYon 07-01-2022 HSTROP 102.3 pg/mL Critically high 4.0-76.1 [facility] [place] Comment on above: Result Comment: CUT- OFF POINTS HAVE BEEN ESTABLISHED BASED ON THE FOURTH UNIVERSAL DEFINITIONS OF MYOCARDIAL INFARCTION. THE UPPER REFERENCE LIMIT (URL) OF TROPONIN, DEFINED THE 99TH PERCENTILE OF cTnI DISTRIBUTION IN A REFERENCE POPULATION, HAS BEEN CONFIRMED THE DECISION THRESHOLD FOR PA DIAGNOSIS. Performed By: #### H STROPN ####[facility] [address] [place] [address]Dr. Aissatou Vásquez HSTROP 132.4 pg/mL Critically high 4.0-76.1 [facility] Comment on above: Result Comment: CUT- OFF POINTS HAVE BEEN ESTABLISHED BASED ON THE FOURTH UNIVERSAL DEFINITIONS OF MYOCARDIAL INFARCTION. THE UPPER REFERENCE LIMIT (URL) OF TROPONIN, DEFINED THE 99TH PERCENTILE OF cTnI DISTRIBUTION IN A REFERENCE POPULATION, HAS BEEN CONFIRMED THE DECISION THRESHOLD FOR PA DIAGNOSIS. Performed By: #### L IVER, BMP, HSTROPN #### [facility] [address] [address] [address] Aissatou Vásquez TSHon 07-01-2022 TSH 7.840 uIU/mL Critically high 0.358-3.740 [facility] Comment on above: Performed By: #### L IVER BMP, HSTROPN #### [facility] [address] [address] [address] Aissatou Vásquez URINE MICROSCOPIC ONLYon BACTERIA NONE SEEN Normal NONE SEEN [facility] Comment on above: Performed By: #### C ADAM #### [facility] [address] [place] [address] Dr. Aissatou Vásquez Bacteria identified Cx Nom (U) NOT INDICATED Normal [facility] Comment on above: Performed By: #### C ADAM #### [facility] [address] [place] [address] Dr. Aissatou Vásquez CAST NONE SEEN Normal NONE SEEN [facility] Comment on above: Performed By: #### C ADAM #### [facility] [address] [place] [address] Dr. Aissatou Vásquez Crystals LM Nom (Urine sed) NONE SEEN Normal NONE SEEN [facility] Comment on above: Performed By: #### C ADAM #### [facility] [address] [place] [address] Dr. Aissatou Vásquez Epithelial cells LM Ql (Urine sed) RARE Normal NONE SEEN /RARE [facility] Comment on above: Performed By: #### C ADAM #### [facility] [address] [place] [address] Dr. Aissatou Vásquez MUCOUS TRACE Abnormal NONE SEEN [facility] Comment on above: Performed By: #### C ADAM #### [facility] [address] [place] [address] Dr. Aissatou Vásquez RBC 2-5 Abnormal 0-2 [facility] Comment on above: Performed By: #### C ADAM #### [facility] [address] [place] [address] Dr. Aissatou Vásquez WBC 2-5 Abnormal NONE SEEN [facility] Comment on above: Performed By: #### C ADAM #### [facility] [address] [place] [address] Dr. Aissatou Vásquez XR CHEST 1 Von [...] Jhony TOTH Date: 2022-07-01 18:01 Normal [facility] AMMONIAon 06-05-2022 Ammonia (P) [Mass/Vol] ug/dL Critically low 11-32 [facility] Comment on above: Performed By: #### L IVER, BMP, HSTROPN #### [facility] [address] [place] [address] Dr. Aissatou Vásquez BNPon 06-05-2022 Natriuretic peptide B (Bld) [Mass/Vol] 672.0 pg/mL Normal <=1,800.0 [facility] Comment on above: Performed By: #### T SH, CMP, FT3, BNP, T4, LIPID #### [facility] [address] [place] [address] Dr. Aissatou Vásquez CBC AUTO DIFFon 06-05-2022 BASO # 0.0 103/ul Normal 0.0-0.1 [facility] Comment on above: Performed By: #### C ADAM #### [facility] [address] [place] [address] Dr. Aissatou Vásquez Basophils/100 WBC (Bld) 0.6 % Normal 0.2-2.0 [facility] Comment on above: Performed By: #### C ADAM #### [facility] [address] [place] [address] Dr. Aissatou Vásquez EO # 0.0 103/ul Normal 0.0-0.7 [facility] Comment on above: Performed By: #### C ADAM #### [facility] [address] [place] [address] Dr. Aissatou Vásquez Eosinophils/100 WBC (Bld) 0.6 % Critically low 0.9-7.0 [facility] Comment on above: Performed By: #### C ADAM #### [facility] [address] [place] [address] Dr. Aissatou Vásquez Erythrocyte distribution width (RBC) [Ratio] 13.7 % Normal 11.0-15.0 [facility] Comment on above: Performed By: #### C ADAM #### [facility] [address] [place] [address] Dr. Aissatou Vásquez Hematocrit (Bld) [Volume fraction] 40.7 % Critically low 42.0-54.0 [facility] Comment on above: Performed By: #### C ADAM #### [facility] [address] [place] [address] Dr. Aissatou Vásquez Hemoglobin (Bld) [Mass/Vol] 12.8 g/dL Critically low 14.0-18.0 [facility] Comment on above: Performed By: #### C ADAM #### [facility] [address] [place] [address] Dr. Aissatou Vásquez IG # 0.01 10e3/ul Normal 0.00-0.03 [facility] Comment on above: Performed By: #### C ADAM #### [facility] [address] [place] [address] Dr. Aissatou Vásquez IG % 0.2 % Normal 0.0-0.5 [facility] Comment on above: Performed By: #### C ADAM #### [facility] [address] [place] [address] Dr. Aissatou Vásquez LYMPH # 1.7 103/ul Normal 1.2-3.8 [facility] Comment on above: Performed By: #### C ADAM #### [facility] [address] [place] [address] Dr. Aissatou Vásquez Lymphocytes/100 WBC (Bld) 27.5 % Normal 20.5-60.0 [facility] Comment on above: Performed By: #### C ADAM #### [facility] [address] [place] [address] Dr. Aissatou Vásquez MANUAL DIFF REQ NO Normal [facility] Comment on above: Performed By: #### C ADAM #### [facility] [address] [place] [address] Dr. Aissatou Vásquez MCH (RBC) [Entitic mass] 30.3 pg Normal 25.9-34.0 [facility] Comment on above: Performed By: #### C ADAM #### [facility] [address] [place] [address] [address] Aissatou Vásquez MCHC (RBC) [Mass/Vol] 31.4 g/dL Normal 29.9-35.2 [facility] Comment on above: Performed By: #### C ADAM #### [facility] [address] [place] [address] Dr. Aissatou Vásquez MCV (RBC) [Entitic vol] 96.2 fL Critically high 80.0-94.0 [facility] Comment on above: Performed By: #### C ADAM #### [facility] [address] [place] [address] Dr. Aissatou Vásquez MONO # 0.6 103/ul Normal 0.3-0.8 [facility] Comment on above: Performed By: #### C ADAM #### [facility] [address] [place] [address] Dr. Aissatou Vásquez Monocytes/100 WBC (Bld) 9.9 % Normal 1.7-12.0 [facility] Comment on above: Performed By: #### C ADAM #### [facility] [address] [place] [address] Dr. Aissatou Vásquez NEUT # 3.8 103/ul Normal 1.4-6.5 [facility] Comment on above: Performed By: #### C ADAM #### [facility] [address] [place] [address] Dr. Aissatou Vásquez Neutrophils/100 WBC (Bld) 61.2 % Normal 43.0-75.0 [facility] Comment on above: Performed By: #### C ADAM #### [facility] [address] [place] [address] Dr. Aissatou Vásquez Platelet mean volume (Bld) [Entitic vol] 9.3 fL Critically low 9.5-13.5 [facility] Comment on above: Performed By: #### C ADAM #### [facility] [address] [place] [address] Dr. Aissatou Vásquez PLT 218 103/ul Normal 150-450 [facility] Comment on above: Performed By: #### C ADAM #### [facility] [address] [place] [address] Dr. Aissatou Vásquez RBC 4.23 106/ul Critically low 4.70-6.10 [facility] Comment on above: Performed By: #### C ADAM #### [facility] [address] [place] [address] Dr. Aissatou Vásquez WBC 6.3 103/ul Normal 4.0-11.0 [facility] Comment on above: Performed By: #### C ADAM #### [facility] [address] [place] [address] Dr. Aissatou Vásquez FREE T3on 06-05-2022 FREE T3 1.80 pg/mlL Critically low 2.18-3.98 [facility] Comment on above: Performed By: #### T SH, CMP, FT3, BNP, T4, LIPID #### [facility] [address] [place] [address] Dr. Aissatou Vásquez GLYCOHEMOGLOBIN A1Con 2021 ADA RECOMMENDATION SEE BELOW Normal [facility] Comment on above: Result Comment: ADA RECOMMENDED LIMIT 4.0 - 6.0 ADA THERAPEUTIC TARGET < 7.0 ACTION SUGGESTED > 7.0 Performed By: #### L DHARA WAITE, HSTROPN #### [facility] [address] [place] [address] Dr. Aissatou Vásquez Glucose [Mass/Vol] 117 mg/dL Normal [facility] Comment on above: Performed By: #### L DHARA WAITE, HSTROPN #### [facility] [address] [place] [address] Dr. Aissatou Vásquez HbA1c (Bld) [Mass fraction] 5.7 % Normal 4.5-6.2 [facility] Comment on above: Performed By: #### L DHARA WAITE, HSTROPN #### [facility] [address] [place] [address] Dr. Aissatou Vásquez IRONon 06-05-2022 Iron [Mass/Vol] 76.0 ug/dL Normal 65.0-175.0 [facility] Comment on above: Performed By: #### P SASC, VITAD, IRON, B12FOL ####[facility] [address] [place] [id number]. Asisatou Vásquez LIPID PROFILEon 06-05-2022 CHOL-HDL RATIO NORM SEE BELOW Normal [facility] Comment on above: Result Comment: 3.3 - 4.4 LOW RISK 4.4 - 7.1 AVERAGE RISK 7.1 - 11.0 MODERATE RISK >11.0 HIGH RISK Performed By: #### T SH, CMP, FT3, BNP, T4, LIPID ####[facility] [address] [place] [id number]. Aissatou Vásquez Cholesterol [Mass/Vol] 133 mg/dL Normal <=200 [facility] Comment on above: Performed By: #### T SH, CMP, FT3, BNP, T4, LIPID ####[facility] [address] [place] [address]Dr. Aissatou Vásquez Cholesterol in HDL [Mass/Vol] 79 mg/dL Critically high 40-60 [facility] Comment on above: Performed By: #### T SH, CMP, FT3, BNP, T4, LIPID ####[facility] [address] [place] [address]Dr. Aissatou Vásquez Cholesterol in LDL [Mass/Vol] 43.6 mg/dL Normal [facility] Comment on above: Performed By: #### T SH, CMP, FT3, BNP, T4, LIPID ####[facility] [address] [place] [id number]. Aissatou Vásquez Cholesterol.total/Cho lesterol in HDL [Mass ratio] 1.7 {ratio} Normal [facility] Comment on above: Performed By: #### T SH, CMP, FT3, BNP, T4, LIPID ####[facility] [address] [place] [address]Dr. Aissatou Vásquez HDL NORMAL > or = 60 mg/dl - LO W CARDIOVASCULAR RISK <40 mg/dl - HIGH CARDIOVASCULAR RISK Normal [facility] Comment on above: Performed By: #### T SH, CMP, FT3, BNP, T4, LIPID ####[facility] [address] [place] [address]Dr. Aissatou Vásquez LDL CALC NORMAL SEE BELOW Normal [facility] Comment on above: Result Comment: <100 mg/dl OPTIMAL 100 - 129 mg/dl NEAR OR ABOVE OPTIMAL 130 - 159 mg/dl BORDERLINE HIGH 160 - 189 mg/dl HIGH >190 mg/dl VERY HIGH Performed By: #### T SH, CMP, FT3, BNP, T4, LIPID ####[facility] [address] [place] [address]Dr. Aissatou Vásquez Triglyceride [Mass/Vol] 52 mg/dL Normal <=150 [facility] Comment on above: Performed By: #### T SH, CMP, FT3, BNP, T4, LIPID ####[facility] [address] [place] [address]Dr. Aissatou Vásquez VLDL CALC 10.4 mg/dL Normal [facility] Comment on above: Performed By: #### T SH, CMP, FT3, BNP, T4, LIPID ####[facility] [address] [place] [address]Dr. Aissatou Vásquez PROF 14(COMP METB)on 022 Albumin [Mass/Vol] 4.0 g/dL Normal 3.4-5.0 [facility] Comment on above: Performed By: #### T SH, CMP, FT3, BNP, T4, LIPID ####[facility] [address] [place] [address]Dr. Aissatou Vásquez Albumin/Globulin [Mass ratio] 1.1 {ratio} Normal [facility] Comment on above: Performed By: #### T SH, CMP, FT3, BNP, T4, LIPID ####[facility] [address] [place] [address]Dr. Aissatou Vásquez ALP [Catalytic activity/Vol] 137 U/L Critically high 46-116 [facility] Comment on above: Performed By: #### T SH, CMP, FT3, BNP, T4, LIPID ####[facility] [address] [place] [address]Dr. Aissatou Vásquez ALT [Catalytic activity/Vol] 18 U/L Normal 16-63 [facility] Comment on above: Performed By: #### T SH, CMP, FT3, BNP, T4, LIPID ####[facility] [address] [place] [address]Dr. Aissatou Vásquez Anion gap [Moles/Vol] 11.1 mmol/L Normal [facility] Comment on above: Performed By: #### T SH, CMP, FT3, BNP, T4, LIPID ####[facility] [address] [place] [address]Dr. Aissatou Vásquez AST [Catalytic activity/Vol] 9 U/L Critically low 15-37 [facility] Comment on above: Performed By: #### T SH, CMP, FT3, BNP, T4, LIPID ####[facility] [address] [place], [place] [address]Dr. Aissatou Vásquez Bilirubin [Mass/Vol] 0.3 mg/dL Normal 0.2-1.0 [facility] Comment on above: Performed By: #### T SH, CMP, FT3, BNP, T4, LIPID ####[facility] [address] [place], [place] [address]Dr. Aissatou Vásquez Calcium [Mass/Vol] 9.4 mg/dL Normal 8.5-10.1 [facility] Comment on above: Performed By: #### T SH, CMP, FT3, BNP, T4, LIPID ####[facility] [address] [place], [place] [address]Dr. Aissatou Vásquez Chloride [Moles/Vol] 102 mmol/L Normal 98-107 [facility] Comment on above: Performed By: #### T SH, CMP, FT3, BNP, T4, LIPID ####[facility] [address] [place] [address]Dr. Aissatou Vásquez CO2 [Moles/Vol] 29.7 mmol/L Normal 21.0-32.0 [facility] Comment on above: Performed By: #### T SH, CMP, FT3, BNP, T4, LIPID ####[facility] [address] [place], [place] [address]Dr. Aissatou Vásquez Creatinine [Mass/Vol] 1.62 mg/dL Critically high 0.70-1.30 [facility] Comment on above: Performed By: #### T SH, CMP, FT3, BNP, T4, LIPID ####[facility] [address] [place] [address]Dr. Aissatou Vásquez EGFR-AF VINCENTIAN 50 mL/min/1.73m2 Critically low >=60 [facility] Comment on above: Performed By: #### T SH, CMP, FT3, BNP, T4, LIPID ####[facility] [address] [place], [place] [address]Dr. Aissatou Vásquez EGFR-NON AF VINCENTIAN 41 mL/min/1.73m2 Critically low >=60 [facility] Comment on above: Performed By: #### T SH, CMP, FT3, BNP, T4, LIPID ####[facility] [address] [place], [place] [address]Dr. Aissatou Vásquez Globulin (S) [Mass/Vol] 3.8 g/dL Normal [facility] Comment on above: Performed By: #### T SH, CMP, FT3, BNP, T4, LIPID ####[facility] [address] [place], [place] [address]Dr. Aissatou Vásquez Glucose [Mass/Vol] 86 mg/dL Normal 74-106 [facility] Comment on above: Performed By: #### T SH, CMP, FT3, BNP, T4, LIPID ####[facility] [address] [place] [address]Dr. Aissatou Vásquez Potassium [Moles/Vol] 4.8 mmol/L Normal 3.5-5.1 [facility] Comment on above: Performed By: #### T SH, CMP, FT3, BNP, T4, LIPID ####[facility] [address] [place] [address]Dr. Aissatou Vásquez Protein [Mass/Vol] 7.8 g/dL Normal 6.4-8.2 [facility] Comment on above: Performed By: #### T SH, CMP, FT3, BNP, T4, LIPID ####[facility] [address] [place], [place] [address]Dr. Aissatou Vásquez Sodium [Moles/Vol] 138 mmol/L Normal 136-145 [facility] Comment on above: Performed By: #### T SH, CMP, FT3, BNP, T4, LIPID ####[facility] [address] [place] [address]DrBud Vásquez Urea nitrogen [Mass/Vol] 41.0 mg/dL Critically high 7.0-18.0 [facility] Comment on above: Performed By: #### T SH, CMP, FT3, BNP, T4, LIPID ####[facility] [address] [place] [address]DrBud Vásquez Urea nitrogen/Creatinine [Mass ratio] 25.3 mg/mg Normal [facility] Comment on above: Performed By: #### T SH, CMP, FT3, BNP, T4, LIPID ####[facility] [address] [place] [address]DrBud Vásquez T4on 06-05-2022 T4 [Mass/Vol] 9.70 ug/dL Normal 4.50-12.10 [facility] Comment on above: Performed By: #### T SH, CMP, FT3, BNP, T4, LIPID #### [facility] [address] [address] [address] Aissatou Vásquez TSHon 06-05-2022 TSH 2.525 uIU/mL Normal 0.358-3.740 [facility] Comment on above: Performed By: #### T SH, CMP, FT3, BNP, T4, LIPID ####[facility] [address] [place] [address]DrBud Vásquez VIT B12 AND FOLATEon 022 Cobalamin (Vitamin B12) [Mass/Vol] 1004.0 pg/mL Critically high 193.0-986.0 [facility] Comment on above: Performed By: #### P SASC, VITAD, IRON, B12FOL ####[facility] [address] [place] [address]DrBud Vásquez FOLATE 6.10 ng/mL Critically low 8.60-58.90 [facility] Comment on above: Performed By: #### P SASC, VITAD, IRON, B12FOL ####[facility] [address] [place], [place] [address]Ee. Aissatou Vásquez VITAMIN D 25 OHon 06-05-2022 VIT D 25-OH 31.8 ng/mL Normal [facility] Comment on above: Performed By: #### P SASC, VITAD, IRON, B12FOL ####[facility] [address] [place], [place] [address]Il. Aissatou Vásquez VIT D RANGES SEE BELOW Normal [facility] Comment on above: Result Comment: <20 ng/mL Vit D deficient 20 - <30 ng/mL Vit D insufficient 30 - 100 ng/mL Vit D sufficient >100 ng/mL Potential Toxicity Performed By: #### P SASC, VITAD, IRON, B12FOL ####[facility] [address] [place], [place] [address]An. Aissatou Vásquez Coding Summary.on 01-23-2017 Coding Summary. CODING DATE: 01/23/2017 FINAL [facility] STATUS: Home (Routine DC) PAYOR: [...] [place] Date Saved: 01/23/2017 10:07 am Normal [facility] Creatinineon 01-22-2017 Creatinine 1.0 mg/dL Normal 0.5-1.3 [facility] Comment on above: Performed By: #### 2 [id number], [id number] ####[facility] [address] [place] [address] eGFRon 01-22-2017 eGFR (black) mL/min/{1.73_m2} Normal >=59 [facility] Comment on above: Order Comment: Order added by Discern Expert. Result Comment: eGFR is race adjusted. AA=. Performed By: #### 2 [id number], [id number] ####[facility] [address] [place] [address] eGFR (non-black) mL/min/{1.73_m2} Normal >=59 [facility] Comment on above: Order Comment: Order added by Discern Expert. Result Comment: Model Maker Apprentice matt kidney disease could be indicated at eGFR's of less than 60 mL/min/1.73m2. Kidney failure is indicated at less than 15 mL/min/1.73m2. Performed By: #### 2 [id number], [id number] ####[facility] [address] [place] [address] Vital Signs Date Time Vital Sign Value Performing Clinician Luci jacob 03-23-2023 13:55-0400 Diastolic blood pressure 68 mm[Hg] ChristQuinnova Pharmaceuticalser [employer] DO Work Phone: [facility] 03-23-2023 13:55-0400 Heart rate 51 /min Christopher Kleen Ext[employer] DO Work Phone: [facility] 03-23-2023 13:55-0400 Systolic blood pressure 151 mm[Hg] Christopher Vincent DO Work Phone: [facility] 08-27-2022 13:12-0500 Diastolic blood pressure 70 mm[Hg] Christopher Vincent DO Work Phone: [facility] 08-27-2022 13:12-0500 Heart rate 69 /min Christopher Vincent DO Work Phone: [facility] 08-27-2022 13:12-0500 Systolic blood pressure 156 mm[Hg] Christopher Vincent DO Work Phone: [facility] Encounters Encounter Date Encounter Type Care Provider Facility Start: 05-30-2024 End: 05-30-2024 ambulatory [facility] Start: 08-11-2023 End: 08-12-2023 ambulatory PIPE Jasso Diana [facility] Start: 07-23-2023 End: 07-23-2023 ambulatory AMANDA IRBY Not Available Start: 06-24-2023 End: 06-24-2023 ambulatory [facility] Start: 03-23-2023 End: 03-23-2023 ambulatory JODI BANERJEE Facility:[facility] Start: 03-23-2023 End: 03-23-2023 Patient encounter procedure Jodi Jasso Chriss DO Work Phone: Neurology Comment on above: Altered mental statu s, unspecified altered mental status type (Primary Dx); Memory loss Start: 03-23-2023 Telephone encounter Rudi r M Chriss DO Work Phone: Neurology Start: 10-27-2022 End: 10-28-[address] PIPE HOPKINS . Facility:[facility] Start: 09-24-2022 End: 09-24-[address] PIPE HOPKINS . Facility:[facility] Start: 08-27-2022 End: 08-28-2022 ambulatory PIPE HOPKINS Facility:[facility] Start: 08-27-2022 End: 08-27-2022 Patient encounter procedure Jodi Jasso Chriss DO Work Phone: Neurology Comment on above: Altered mental statu s, unspecified altered mental status type (Primary Dx); Vitamin D deficiency, unspecified Start: 07-11-2022 End: 07-12-[address] PIPE HOPKINS . Facility: Start: 07-08-2022 End: 07-09-[address] PIPE HOPKINS . Facility:[facility] Start: 07-06-2022 End: 07-07-[address] PIPE HOPKINS . Facility:[facility] Start: 07-01-2022 End: 07-04-2022 Evaluation and management of inpatient DR PIPE HOPKINS . Facility:[facility] Start: 06-25-2022 End: 07-05-[address] PIPE HOPKINS . Facility:[facility] Start: 06-05-2022 End: 06-06-[address] PIPE HOPKINS . Facility: Start: 06-25-2017 End: 06-26-2017 Ambulatory DEFAULT PHYSICIAN Facility:[facility] Start: 01-22-2017 End: 01-23-2017 Ambulatory SHONDA ALTAMIRANO [place] Start: 05-27-2011 Patient encounter status Jodi Banerjee DO Work Phone: [facility] Work Phone: Procedures Date Procedure Procedure Detail Performing Clinician Start: 06-05-[address] ORTIZ HOPKINS . Comment on above: Performed By: #### P SASC, VITAD, IRON, B12FOL ####[facility] [address] [place] [address]DrBud Vásquez Start: 02-20-2020 History of coronary artery bypass grafting S/P CABG (coronary artery bypass graft), PARRA to the LAD, SVG to D1, SVG to OM1, SVG to OM 2, inverted Y grafted PLV and posterior descending artery. Jodi Banerjee DO Work Phone: Plan of Treatment Date Care Activity Detail Author Start: 03-06-2023 Influenza vaccination Influenza Vacc ine (#1) [facility] Start: 08-27-2022 End: 10-27-2022 25-hydroxyvitamin D3 [Mass/volume] in Serum or Plasma [facility] Work Phone: Comment on above: Expected: 08/27/2022 , Expires: 10/27/2022 Start: 08-27-2022 End: 10-27-2022 SYPHILIS TOTAL W/REFLEX [facility] Work Phone: Comment on above: Expected: 08/27/2022 , Expires: 10/27/2022 Start: 07-06-2022 ADVANCE DIRECTIVE DISCUSSION ADVANCE DIRECTIVE DISCUSSION [facility] Start: 07-06-2022 DEPRESSION ASSESSMENT DEPRESSION ASS ESSMENT [facility] Start: 03-06-2022 Influenza vaccination INFLUENZA (#1) [facility] Start: 12-17-2019 [facility]ET[facility]CREEN [facility] Start: 12-17-2019 Diabetes Screening Diabetes Screenin g [facility] Start: 05-21-2012 Hepatitis B surface antibody level LDL CHOLESTEROL [facility] Start: 2003 Pneumococcal Vaccine : 65+ (1 - PCV) Pneumococcal Vaccine: 65+ (1 - PCV) [facility] Start: 2003 PNEUMOCOCCAL: 65+ (1 - PCV) PNEUMOCOCCAL: 65+ (1 - PCV) [facility] Start: 1988 SHINGRIX VACCINE (1 of 2) SHINGRIX VACCINE (1 of 2) [facility] Start: 1957 Urine microalbumin profile [facility] Start: 02-18-1939 COVID-19 VACCINE (#1) COVID-19 VACCI NE (#1) [facility] Immunizations Immunization Date Immunization Notes Care Provider Fa cility 06-18-2017 influenza virus vaccine, unspecified formulation Jodi Banerjee DO Work Phone: [facility] Payers Date Payer Category Payer Medicare [id number] 2017 Medicare [id number] 2016 Private Health Insurance [facility] AARP SUPPLEMENT [id number] 2016-Present [phone] [address] [place] [address] Indemnity [id number] 2003 Medicare MEDICARE MEDICAR E A AND B [id number] 2003-Present [phone] [address] [address] [place] [address] Medicare [id number] 1959 Medicaid [id number] 1959 Medicare [id number] 1959 Unknown [id number] 1938 Unknown [id number]. 593 1938 Unknown [id number]. 593 1938 Unknown [id number] [id number]. 593 1938 Unknown [id number] [id number]. 593 1938 Unknown [id number]. 593 1938 Unknown [id number] [id number]. 593 1938 Unknown [id number] [id number]. 593 1938 Unknown [id number] [id number]. 593 1938 Unknown [id number]. 1259 1938 Unknown [id number] 1286 Unknown Social History Date Type Detail Facility Start: [facility]2022 [facility] History of tobacco use Current smoker [facility] History of tobacco use Cigarette Smoker C [facility] Start: 08-27-2022 End: 03-23-2023 Cigarettes smoked current (pack per day) - Reported [address] [facility] Start: 08-27-2022 Tobacco use and exposure Formnanette r smokeless tobacco user [facility] End: 06-02-1971 History of tobacco use User of smokeless tobacco [facility] Start: 08-27-2022 End: 03-23-2023 Alcohol intake Current drinker of alcohol (finding) [facility] Start: 08-27-2022 Tobacco Comment quit 40 yrs ago [facility] Start: 05-21-2011 Alcohol Comment He drinks 4 gl asses of red wine weekly [facility] Start: 1940 Sex Assigned At Not on file C [facility] Start: 03-23-2023 Tobacco use panel [facility] National Score (1-10 0), lower number is lower risk [address] [facility] Clinical Notes 05-28-2011 to 05-30-2024 Telephone Encounter - Terri Santos - 03/23/2023 3:27 PM EDTPatiJodi Lawrence DO - 03/23/2023 1:46 PM Denver Banerjee DO - 08/27/2022 1:12 PM EST Note Date & Type Note Facility 05-30-2024 Note [place] [facility] Subjective Leanna Nelson is a 83 y.o. year old male patient being seen for 1 year follow up CAD, chronic diastolic heart failure, and carotid artery stenosis. Had labs last week. He is no longer taking lasix, and is now on hydrochlorothiazide. He denies chest pain, SOB, palpitations, and lightheadedness/syncope. Patient Active Problem List Diagnosis Chronic diastolic heart failure (CMS/HCC) PAC (premature atrial contraction) Coronary artery disease involving king salmon coronary artery of king salmon heart without angina pectoris Hx of CABG [...] is seen in follow-up. He is a 83-year-old man with prior history of coronary disease status post bypass surgery in 2010, hypertension, hyperlipidemia and carotid artery stenosis. He has history of chronic kidney disease stage IIIb. In September 2022 he was recommended addition of furosemide 40 mg daily due to significant lower extremity swelling. Recently he has not been taking the furosemide. He has been having issues with incontinence and will be seeing urology soon. He previously was noted to have PACs on EKG. He takes aspirin 81 mg daily. He is not on statin therapy due to side effects previously. His lipid profile has been well controlled. Today he reports that he has been doing reasonably well. He denies angina. He has no shortness of breath. He lives in a detention. His blood pressure is elevated today. Review of Systems Musculoskeletal: Positive for muscle weakness. Neurological: Positive for weakness. All other systems reviewed and are negative. Objective Visit Vitals BP 152/62 (BP Location: Right arm, Patient Position: Sitting) Pulse 62 Ht 1.854 m (6' 1 ) Wt 83 kg (183 lb) SpO2 97% BMI 24.14 kg/m??? Smoking Status Former BSA 2.07 m??? Physical Exam Constitutional: Appearance: He is [...] 2+ on the left side. Heart sounds: Murmur heard. Systolic (RUSB) murmur is present with a grade of 2/6. No friction rub. No gallop. Pulmonary: Effort: [...] Reactions Atorvastatin Hives Medications Current Outpatient Medications: aspirin 81 mg EC tablet, Take 81 mg by mouth in the morning., Disp: , Rfl: b complex 0.4 mg tablet, Take 1 tablet by mouth in the morning., Disp: , Rfl: cholecalciferol (Vitamin D-3) 50 MCG (2000 UT) tablet, Take 2,000 Units by mouth., Disp: , Rfl: hydroCHLOROthiazide (HYDRODiuril) 25 mg tablet, Take 25 mg by mouth in the morning., Disp: , Rfl: lev (more content not included)... [facility] 06-24-2023 Note [place] [facility] Subjective Leanna Nelson is a 82 y.o. year old male patient being seen for 6 mo follow up CAD, hypertension, chronic diastolic heart failure, and carotid artery stenosis. Had routine labs in Mar 2023. Doing well from cardiac standpoint. No recurrent syncope. Patient Active Problem List Diagnosis Chronic diastolic heart failure (CMS/HCC) PAC (premature atrial contraction) Coronary artery disease involving king salmon coronary artery of king salmon heart without angina pectoris Hx of CABG [...] , Rfl: multivitamin (more content not included)... [facility] 03-23-2023 Note HNO ID: [id number] Author: Jodi Banerjee, DO Service: ? Author Type: Physician Type: Progress Notes Filed: 03/23/2023 2:41 PM Note Text: [facility] Neu[facility] [place] Follow-up visit March 23, 2023 HPI: Overall [...] encounter he has moved and low lives [facility]. He states he does not [...] mainly his brother. He has seen by credentialing manager in 01/2023 with suggestion that he get a hearing aide but he refuses. After his last encounter he has followed up with cardiology concerning his heart rate that was auscultated on last encounter. They checked his heart rhythm and thought it was appropriate. This was as via physician in [place]. They deny other changes to his health and/or medications except for the above since our last encounter. PAST MEDICAL HISTORY Diagnosis Date Arthritis Carotid stenosis Coronary artery disease Coronary atherosclerosis of unspecified type of vessel, king salmon or graft 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 Dyslipidemia Hypertension Hypertension Hypothyroid Lumbar disc disease Unspecified hypothyroidism Hypothyroidism PAST SURGICAL HISTORY Procedure Laterality Date PAST SURGICAL HISTORY OF CABG times 6 left internal thoracic artery to the [id number] left anterior descending artery, reverse saphenous vein [...] tablet Take 5 (more content not included)... [facility] 03-23-2023 Miscellaneous Notes 03/23/2023 After visit Summary faxed to Dr Hopkins with confirmation received. PSS forgot to have pt complete release of information forms. This nurse has placed 2 copies in [place] mail for pt to complete and take to facility to release information to our office. POA was advised via voice message to send a [employer] msg if he had any further question. Terri Santos Lpn documented in this encounter [facility] 03-23-2023 Instructions Jodi Banerjee DO - 03/23/2023 2:40 PM EDT Please sign records release for last blood test results. documented in this encounter [facility] 03-23-2023 History of Present illness Narrative [facility] [place] Follow-up visit March 23, 2023 HPI: Overall [...] encounter he has moved and low lives [facility]. He states he does not [...] mainly his brother. He has seen by credentialing manager in 01/2023 with suggestion that he get a hearing aide but he refuses. After his last encounter he has followed up with cardiology concerning his heart rate that was auscultated on last encounter. They checked his heart rhythm and thought it was appropriate. This was as via physician in [place]. They deny other changes to his health and/or medications except for the above since our last encounter. PAST MEDICAL HISTORY Diagnosis Date Arthritis Carotid stenosis Coronary artery disease Coronary atherosclerosis of unspecified type of vessel, king salmon or graft 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 Dyslipidemia Hypertension Hypertension Hypothyroid Lumbar disc disease Unspecified hypothyroidism Hypothyroidism PAST SURGICAL HISTORY Procedure Laterality Date PAST SURGICAL HISTORY OF CABG times 6 left internal thoracic artery to the [id number] left anterior descending artery, reverse saphenous vein [...] with more than 50% of the total edkd-ol-toea time of the visit in counseling / coordination of care. documented in this encounter [facility] 08-27-2022 Note HNO ID: [id number] Author: Jodi Banerjee DO Service: ? Author Type: Physician Type: Progress Notes Filed: 08/27/2022 2:35 PM Note Text: [facility] [place] New Patient Consultation August 27, 2022 HPI: [...] They have been working with social services designee at the facility he is at but [...] Coronary atherosclerosis of unspecified type of vessel, king salmon or graft 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 Dyslipidemia Hypertension Hypertension Hypothyroid Lumbar disc disease Unspecified hypothyroidism Hypothyroidism PAST SURGICAL HISTORY Procedure Laterality Date PAST SURGICAL HISTORY OF CABG times 6 left internal thoracic artery to the [id number]-dj-qhjvxy left anterior descending artery, reverse saphenous vein [...] Former Packs/day: 1.0 (more content not included)... [facility] 08-27-2022 History of Present illness Narrative [facility] [place] New Patient Consultation August 27, 2022 HPI: [...] They have been working with social services designee at the facility he is at but [...] Coronary atherosclerosis of unspecified type of vessel, king salmon or graft 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 Dyslipidemia Hypertension Hypertension Hypothyroid Lumbar disc disease Unspecified hypothyroidism Hypothyroidism PAST SURGICAL HISTORY Procedure Laterality Date PAST SURGICAL HISTORY OF CABG times 6 left internal thoracic artery to the ptz-wg-ftetbf left anterior descending artery, reverse saphenous vein [...] CPK (1646), COVID, UDS, UA, CMP, Myoglobin (2042), Trop/HSTROP (102.3), TSH, CBC 06/05/2022 Ammonia, BNP, [...] with more than 50% of the total jqrl-vk-tuxg time of the visit in counseling / coordination of care. documented in this encounter [facility] 05-28-2011 History of Past i llness Narrative Problem Noted Date Resolved Date Stress hyperglycemia 05/28/2011 06/01/2011 Overview: RHI gtt per ICU protocol Mechanically assisted ventilation 05/28/2011 05/29/2011 Overview: Extubated 05/29/11 no increased work of breathing Hypotension 05/28/2011 05/30/2011 Overview: Levo off this morning, hemodynamically stable. documented as of this encounter (statuses as of 08/27/2022) [facility] History of Past illness Narrative* Problem Noted Date Diagnosed Date Resolved Date Stress hyperglycemia 05/28/2011 011 Overview: RHI gtt per ICU protocol Mechanically assisted ventilation 05/28/2011 05/29/2011 Overview: Extubated 05/29/11 no increased work of breathing Hypotension 05/28/2011 05/30/2011 Overview: Levo off this morning, hemodynamically stable. documented as of this encounter (statuses as of 03/24/2023) [facility] History of Past illness Narrative* Problem Noted Date Diagnosed Date Resolved Date Stress hyperglycemia 05/28/2011 011 Overview: RHI gtt per ICU protocol Mechanically assisted ventilation 05/28/2011 05/29/2011 Overview: Extubated 05/29/11 no increased work of breathing Hypotension 05/28/2011 05/30/2011 Overview: Levo off this morning, hemodynamically stable. documented as of this encounter (statuses as of 03/24/2023) [facility] Altered mental status, unspecified altered mental status type- Primary Vitamin D deficiency, unspecified [facility] Altered mental status, unspecified altered mental status type- Primary Memory loss documented in this encounter 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 Advance Directive(s) 08/27/2022 1:25 PM Additional Source Comments (unrecognized sect ion and content) No Status Records FoundNo Status Records FoundNo Status Records FoundNo Status Records FoundNo Status Records FoundNo Status Records FoundNo Status Records FoundNo Status Records Found INFORMATION SOURCE (unrecogn ized section and content) DATE CREATED AUTHOR 12/29/2017 [facility] DATE CREATED AUTHOR AUTHOR'S ORGANIZ ATION 12/30/2017 [facility] DATE CREATED AUTHOR AUTHOR'S ORGANIZ ATION 08/28/2022 [facility] DATE CREATED AUTHOR AUTHOR'S ORGANIZ ATION 12/12/2022 [facility] DATE CREATED AUTHOR AUTHOR'S ORGANIZ ATION 03/25/2023 [facility] DATE CREATED AUTHOR AUTHOR'S ORGANIZ ATION 07/24/2023 [facility] dical [facility] DATE CREATED AUTHOR AUTHOR'S ORGANIZ ATION 08/17/2023 [facility] DATE CREATED AUTHOR AUTHOR'S ORGANIZ ATION 06/02/2024 [facility] Source Comments (unrecognize d section and content) In the event this informatio n is protected by the Federal Confidentiality of Alcohol and Drug Abuse Patient Records regulations: The Federal rules restrict any use of the information to criminally investigate or prosecute any alcohol or drug abuse patient.[facility] the event this information is protected by the Federal Confidentiality of Alcohol and Drug Abuse Patient Records regulations: The Federal rules restrict any use of the information to criminally investigate or prosecute any alcohol or drug abuse patient.[facility] the event this information is protected by the Federal Confidentiality of Alcohol and Drug Abuse Patient Records regulations: The Federal rules restrict any use of the information to criminally investigate or prosecute any alcohol or drug abuse patient.[facility] Reason for Visit (unrecogniz ed section and content) Reason Comments New Patient Reason Comments Follow Up Care Teams (unrecognized sec tion and content) Targeteer Relationship Specialty Start Date End Date Pipe Hopkins MD [address] [place] [address] PCP - General 05/19/11 [facility] [address] [place] [address] Primary Staff Physician Cardiology 09/21/18 Targeteer Relationship Specialty Start Date End Date Pipe Hopkins MD [address] [place] [address] PCP - General 05/19/11 [facility] [address] [place] [id number] Primary Staff Physician Cardiology 09/21/18 Targeteer Relationship Specialty Start Date End Date Pipe Hopkins MD [address] [place] [address] PCP - General 05/19/11 [facility] [address] [place] [phone] (work) Primary Staff Physician Cardiology 09/21/18 FOR RECORDS [...] BE BASED ON THE PRIMARY CLINICAL RECORDS. [employer] To Get Approved For [facility]. provides no warranty or guarantee of the accuracy or completeness of information in this document.
[2024-06-02 11:15] VITALS: BP 139/70; PULSE 76; O2SAT 99
== END 2024-06-02 11:49 | disposition home or self-care (01) ==
PROVIDERS: Emergency Provider Emergency Medicine; PCP Family Medicine
DX: S00.83XA Contusion of other part of head, initial encounter (principal); S50.811A Abrasion of right forearm, initial encounter; W18.39XA Other fall on same level, initial encounter; Z95.1 Presence of aortocoronary bypass graft
CPT/HCPCS: 70450; 72125; 99285

== ENCOUNTER 2024-09-06 09:29 | Outpatient (OUT) | payer OTHER, MEDICAID, SELFPAY ==
--- OUTSIDE RECORDS SUMMARY | 2024-09-06 09:35 | XMS_ITS | CCD ---
Author Organization [facility] Care Team Providers Care Welding Specialist Name Role Phone PHYSICIAN, DEFAULT Unavailable Unavailable PHYSICIAN, DEFAULT Unavailable Unavailable EVELIA, SUNJUK Unavailable Unavailable EVELIA, SUNJUK Unavailable Unavailable EVELIA, SUNJUK Unavailable Unavailable Pipe Hopkins~[phone] UNKNOWN Unavailable Unavailable Pipe Hopkins MD Primary Care Provider [phone] [place] Unavailable PIPE HOPKINS Primary Care Unavailable JODI BANERJEE Referring Unavailab DR PIPE Liang Consulting Unavailable FAWWAD, KAMARA H Admitting Unavailable FAWWAD, KAMARA H Attending Unavailable AURY ., DR BETANCUR Primary Care Unavailable PAY [...] Unavailable HOY ., DR BETANCUR Consulting Unavailable ALEJANDROY ., DR BETANCUR Attending Unavailable HOY ., DR BETANCUR Primary Care Unavailable HOY ., DR BETANCUR Admitting Unavailable HOY ., DR BETANCUR Attending Unavailable HOY ., DR BETANCUR Consulting Unavailable ALEJANDROY ., DR BETANCUR Primary Care Unavailable ZILEONARD, [...] Unavailable HOY ., DR BETANCUR Admitting Unavailable Alejandroy Pipe XIONG Primary Care Provider [phone] Gene Farooqcelena Blake Unavailable [phone] JODI BANERJEE Attending Unavailab PIPE Griffith Primary Care Unavailable JODI BANERJEE Attending Unavailab PIPE Griffith Primary Care Unavailable AYSE BARNES Attending Unavailable AYSE BARNES Attending Unavailable Unavailable Primary Care Provider Unavailbryan e AMANDA IRBY Attending Unavailable LYDIA VALLE Attending Unavailable PIPE HOPKINS Referring Unavailable PIPE HOPKINS Referring Unavailable Unavailable Primary Care Provider Unavailabl e Allergies Allergy Classification Reported Allergen(s) Allergy Type Date of Onset Reaction(s) Facility (2 sources) atorvastatin; Translations: [Lipitor] Drug Allergy [facility] Repository (8 sources) atorvastatin; Translations: [ATORVASTATIN CALCIUM] Drug Allergy 4 Hives, Rash [facility] (5 sources) atorvastatin; Translations: [ATORVASTATIN] Drug Allergy 4 Hives, Other (See Comments), Rash, Itching [facility] Repository Medications Current Medications Medication Drug Class(es) Dates Sig (Normalized) Sig (Original) acetaminophen 500 mg oral tablet (9 sources) take 2 tablets by mouth in the morning acetaminophen (Tylenol) 500 MG tablet Take 2 tablets by mouth in the morning and 2 tablets in the evening. Active acetaminophen 50 0 mg capsule Take by mouth every 4 (four) hours as needed for pain. Active ACETAMINOPHEN (T YLENOL 8 HOUR ORAL) Take by mouth as needed. 0 Active Comment on above: Take by mouth as nee ded. amLODIPine 2.5 mg oral tablet (6 sources) Dihydropyridine Calcium Channel Ann [place] Start: 2023 End: 2024 take 1 tablet by mouth in the morning amLODIPine (NORVASC) 2.5 mg tablet Take 1 tablet (2.5 mg total) by mouth in the morning. 05/30/2024 05/30/2025 Active B Complex Vitamins (vitamin B complex) tablet (3 sources) Start: 2022 B Complex Vitamins (vitamin B complex) tablet 05/19/2023 Active b complex vitamins capsule (3 sources) take 1 capsule by mouth in the morning b complex vitamins capsule Take 1 capsule by mouth in the morning. Active b complex-folic acid tablet (3 sources) take 1 tablet by mouth in the morning b complex-folic acid tablet Take 1 tablet by mouth in the morning. Active cefdinir 300 mg oral capsule (3 sources) Cephalosporin Antibacterial Start: 2022 take 2 capsules by mouth in the morning cefdinir (Omnicef) 300 MG capsule Take 2 capsules by mouth in the morning. 09/10/2022 Active celecoxib 100 mg oral capsule (5 sources) Nonsteroidal Anti-inflammatory Drug End: 2022 take 1 capsule by mouth in the morning celecoxib (CeleBREX) 100 MG capsule Take 100 mg by mouth in the morning. Active Comment on above: Take 100 mg by mouth once daily. cholecalciferol 0.05 mg oral tablet (9 sources) Vitamin D take 1 tablet by mouth in the morning cholecalciferol (Vitamin D-3) 50 MCG (2000 UT) tablet Take 2,000 Units by mouth in the morning. Active Cholecalciferol (Vitamin D) 50 MCG (2000 UT) capsule 1 capsule 1 (one) time each day at the same time. Active hydroCHLOROthiazide 25 mg oral tablet (3 sources) Thiazide Diuretic take 1 tablet by mouth once daily hydroCHLOROthiazide (HYDRODIURIL) 25 mg tablet Take 1 tablet (25 mg total) by mouth daily. Active liothyronine sodium 0.005 mg oral tablet (6 sources) l-Triiodothyronin e take 1 tablet by mouth in the morning liothyronine (CYTOMEL) 5 MCG tablet Take 1 tablet (5 mcg total) by mouth in the morning. Active Comment on above: Take 5 mcg by mouth once daily. tolterodine tartrate 2 mg oral tablet (3 sources) Cholinergic Muscarinic Antagonist Start: 2023 take 1 tablet by mouth in the morning, then take 1 tablet by mouth at bedtime tolterodine (DETROL) 2 mg tablet Take 1 tablet (2 mg total) by mouth in the morning and 1 tablet (2 mg total) before bedtime. 06/06/2024 Active Completed/Discontinued Medications Medication Drug Class(es) Dates Sig (Normalized) Sig (Original) aspirin 81 mg delayed release oral tablet (6 sources) Platelet Aggregation Inhibitor, Nonsteroidal Anti-inflammatory Drug Start: 06-02-2011 take 1 tablet by mouth once daily aspirin, enteric coated (ASPIRIN, ENTERIC COATED) 81 mg EC tablet Take 81 mg by mouth once daily. 0 06/02/2011 Active Comment on above: Take 81 mg by mouth once daily. furosemide 20 mg oral tablet (3 sources) Loop Diuretic Start: 02-09-2019 take 1 tablet by mouth once daily furosemide (LASIX) 20 mg tablet Take 1 tablet by mouth once daily for 14 days. 14 tablet 0 02/09/2019 Active Comment on above: Take 1 tablet by shyla th once daily for 14 days. levothyroxine sodium 0.1 mg oral tablet (6 sources) l-Thyroxine Start: 06-09-2011 take 1 tablet by mouth once daily levothyroxine (SYNTHROID) 100 mcg tablet Take 1 tablet by mouth once daily. 0 06/09/2011 Active Comment on above: Take 1 tablet by shyla th once daily. multivitamin with minerals (MULTI-VIT 55 [...] Coronary arteriosclerosis; Translations: [Atherosclerotic heart disease of [place] coronary artery without angina pectoris] Onset: 05-27-2011 07-01-2021 Chronic Deficiency and other anemia (2 sources) Anemia, unspecified; Translations: [ANEMIA UNSPECIFIED] Onset: 06-07-2022 Episodic Disorders of lipid metabolism (9 sources) Hyperlipidemia; Translations: [Hyperlipidemia, unspecified] Onset: 05-28-2011 Chronic Essential hypertension (10 sources) Hypertensive disorder; Translations: [Essential (primary) hypertension] Onset: 05-30-2011 Chronic Genitourinary symptoms and ill-defined conditions (5 sources) Functional urinary incontinence; 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] Onset: 06-08-2024 06-08-2024 Chronic Hypertension with complications and secondary hypertension [...] bilateral carotid arteries] Onset: 06-24-2023 Chronic Other diseases of kidney and ureters (1 source) Disorder of kidney and/or ureter; Translations: [Other specified disorders of kidney and ureter] 06-08-2024 Chronic Other nervous system disorders (1 source) Metabolic encephalopathy; Translations: [METABOLIC ENCEPHALOPATHY] Onset: 07-14-2022 Chronic Other nervous system disorders (4 sources) Polyneuropathy; Translations: [Polyneuropathy, unspecified] Onset: 07-19-2024 07-19-2024 Chronic Other nervous system disorders (4 sources) Impaired cognition; Translations: [Other symptoms and signs involving cognitive functions and awareness] Onset: 07-19-2024 07-19-2024 Episodic Residual codes; unclassified (2 sources) Altered mental status; Translations: [Altered mental status, unspecified] Episodic Residual codes; unclassified (1 source) Amnesia; Translations: [Other amnesia] 03-23-2023 Episodic Thyroid disorders (5 sources) Hypothyroidism; Translations: [Hypothyroidism, unspecified] Onset: 05-28-2011 Chronic Unclassified (4 sources) Parkinson's disease; Translations: [Parkinson's disease without dyskinesia or fluctuating manifestations (CMS/HCC)] Onset: 07-19-2024 07-19-2024 Chronic Unclassified (3 sources) SUMMARY Onset: 05-30-2011 [...] [PRESENCE AORTOCORONARY BYPASS GRAFT] Onset: 07-14-2022 Episodic Diabetes mellitus without complication (1 source) [...] Onset: 07-14-2022 Episodic Other aftercare (1 source) 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; Translations: [ATOMIC PROCESS ENGINEER CURRENT USE OF ASPIRIN] Onset: 07-14-2022 Episodic Other aftercare (1 source) Other terminal makeup operator (current) drug therapy; Translations: [OTH MCC CURRENT DRUG THERAPY] Onset: 07-14-2022 Episodic Other [...] Onset: 05-21-2011 07-01-2021 Episodic Residual codes; unclassified (6 sources) Altered mental status, unspecified; Translations: [Altered mental status, unspecified altered mental status type] Onset: 07-11-2022 Episodic Screening and history of mental health and substance abuse codes (1 source) Personal history of nicotine dependence; Translations: [PERSONAL HISTORY OF NICOTINE DEPEND] Onset: 07-14-2022 Episodic Urinary tract infections (1 source) Urinary tract infection, site not specified; Translations: [Urinary tract infection, site not specified] Onset: 08-11-2023 Episodic Results Test Name Value Interpretation Reference Range Facility CBC AND AUTO DIFFon 07-22-19 25 ABSOLUTE BASOPHIL 0.1 X10E9/L Normal 0.0-0.2 [facility] Comment on above: Performed By: #### C BCA, THYR, 3051-0 #### [facility] ([id number]) [address], [address] [place] [address] ABSOLUTE NEUTROPHIL 4.9 X10E9/L Normal 1.5-6.6 [facility] Comment on above: Performed By: #### C BCA, THYR, #### [facility] ([id number]) [address], [address] [place] [address] Basophils/100 WBC (Bld) 1.3 % Normal [facility] Comment on above: Performed By: #### C BCA, THYR, 0 #### [facility] ([id number]) [address], [address] [place] [address] Eosinophils (Bld) [#/Vol] 0.3 10*3/uL Normal 0.0-0.4 [facility] Comment on above: Performed By: #### Soni BCA, THYR, #### [facility] ([id number]) [address], [address] [place] [address] Eosinophils/100 WBC (Bld) 3.5 % Normal [facility] Comment on above: Performed By: #### Soni BCA, THYR, #### [facility] ([id number]) [address], [address] [place] [address] Erythrocyte distribution width (RBC) [Ratio] 13.5 % Normal 11.5-15.0 [facility] Comment on above: Performed By: #### C MYAH, THYR, #### [facility] ([id number]) [address], [address] [place] [address] Hematocrit (Bld) [Volume fraction] 41.0 % Normal 39-49 [facility] Comment on above: Performed By: #### C BCA, THYR, 0 #### [facility] ([id number]) [address], [address] [place] [address] Hemoglobin (Bld) [Mass/Vol] 13.3 g/dL Normal 13.0-17.0 [facility] Comment on above: Performed By: #### C BCA, THYR, #### [facility] ([id number]) [address], [address] [place] [address] Lymphocytes (Bld) [#/Vol] 2.6 10*3/uL Normal 1.0-3.5 [facility] Comment on above: Performed By: #### Soni BCA, THYR, 0 #### [facility] ([id number]) [address], [facility] [address] [place] [address] Lymphocytes/100 WBC (Bld) 30.3 % Normal [facility] Comment on above: Performed By: #### Soni BCA, THYR, #### [facility] ([id number]) [address], [facility] [address] [place] [address] MCH (RBC) [Entitic mass] 29.5 pg Normal 27-34 [facility] Comment on above: Performed By: #### Soni BCA, THYR, 0 #### [facility] ([id number]) [address], [facility] [address] [place] [address] MCHC (RBC) [Mass/Vol] 32.3 g/dL Normal 32-36 [facility] Comment on above: Performed By: #### Soni BCA, THYR, 0 #### [facility] ([id number]) [address], [facility] [address] [place] [address] MCV (RBC) [Entitic vol] 91 fL Normal 80-100 [facility] Comment on above: Performed By: #### Soni BCA, THYR, 0 #### [facility] ([id number]) [address] [address] [place] [address] Monocytes (Bld) [#/Vol] 0.8 10*3/uL Normal 0-0.9 [facility] Comment on above: Performed By: #### Soni BCA, THYR, 0 #### [facility] ([id number]) [address], [address] [place] [address] Monocytes/100 WBC (Bld) 9.4 % Normal [facility] Comment on above: Performed By: #### Soni BCA, THYR, 0 #### [facility] ([id number]) [address], [facility] [address] [place] [address] Neutrophils/100 WBC (Bld) 55.5 % Normal [facility] Comment on above: Performed By: #### C BCA, THYR, 0 #### [facility] ([id number]) [address], [facility] [address] [place] [address] Platelet mean volume (Bld) [Entitic vol] 8.0 fL Normal 7-12 [facility] Comment on above: Performed By: #### Soni BCA, THYR, 0 #### [facility] ([id number]) [address], [address] [place] [address] Platelets (Bld) [#/Vol] 231 10*3/uL Normal 150-450 [facility] Comment on above: Performed By: #### Soni BCA, THYR, 0 #### [facility] ([id number]) [address] [address] [place] [address] RBC COUNT 4.49 X10E12/L Normal 4.10-5.70 [facility] Comment on above: Performed By: #### Soni BCA, THYR, 0 #### [facility] ([id number]) [address], [address] [place] [address] WBC (Bld) [#/Vol] 8.8 10*3/uL Normal 4.0-11.0 [facility] Comment on above: Performed By: #### Soni BCA, THYR, 3050-0 #### [facility] ([id number]) [address], [address] [place] [address] FREE T3on 07-22-2024 Free T3 [Mass/Vol] 2.89 pg/mL Normal 2.50-3.90 [facility] Comment on above: Performed By: #### C BCA, THYR, 305-0 #### [facility] ([id number]) [address] [facility], [address] [place] [address] THYROID PROFILEon 07-22-2024 Free T4 [Mass/Vol] 1.02 ng/dL Normal 0.61-1.60 [facility] Comment on above: Performed By: #### C BCA, THYR, 3051-0 #### [facility] ([id number]) [address] [facility], [facility] [address] [place] [address] TSH 1.50 uIU/mL Normal 0.49-4.67 [facility] Comment on above: Performed By: #### Soni BCA, THYR, 305-0 #### [facility] ([id number]) [address] [facility], [address] [place] [address] Office Visiton 05-30-2024 Follow-up visit [id number] Leanna Nelson 1940 M Date Provider Department Center 05/30/2024 AYSE VIVAR KADEEM Benitez Family History Problem Relation Age of Onset Coronary artery disease Brother Heart attack Brother Heart failure Brother Other Brother Family Status - Relation Status Age at Brother Level of Service:18835 UT OFFICE/OUTPATIENT ESTABLISHED MOD MDM 30 MIN Normal [facility] URINALYSISon 08-11-2023 Bilirubin Ql (U) Negative Normal NEG [facility] Comment on above: Performed By: #### U A #### [facility] ([id number]) [address] [place] [address], [place] [address] BLOOD/HGB Negative Normal NEG [facility] Comment on above: Performed By: #### U A #### [facility] ([id number]) [address] [place] [address] Color (U) YELLOW Normal YELLOW [facility] Comment on above: Performed By: #### U A #### [facility] ([id number]) [address] [place] [address] Glucose Ql (U) Negative Normal NEG [facility] Comment on above: Performed By: #### U A #### [facility] ([id number]) [address] [place] [address] [place] [address] Ketones Ql (U) Negative Normal NEG [facility] Comment on above: Performed By: #### U A #### [facility] ([id number]) [address] [place] [address] Leukocyte esterase Test strip Ql (U) Negative Normal NEG [facility] Comment on above: Performed By: #### U A #### [facility] ([id number]) [address] [place] [address] Nitrite Ql (U) Negative Normal NEG [facility] Comment on above: Performed By: #### U A #### [facility] ([id number]) [address] [place] [address] pH (U) 6.0 [pH] Normal 5.0-8.5 [facility] Comment on above: Performed By: #### U A #### [facility] ([id number]) [address] [place] [address] Protein Ql (U) Negative Normal NEG [facility] Comment on above: Performed By: #### U A #### [facility] ([id number]) [address] [place] [address] [place] [address] Specific gravity (U) [Rel density] 1.025 Normal 1.003-1.035 [facility] Comment on above: Performed By: #### U A #### [facility] ([id number]) [address] [facility], [place] [address] TURBIDITY CLEAR Normal CLEAR [facility] Comment on above: Performed By: #### U A #### [facility] ([id number]) [address] [facility], [place] [address] Urobilinogen Qn (U) 0.2 {Ilene'U}/dL Normal <1.1 [facility] Comment on above: Performed By: #### U A #### [facility] ([id number]) [address] [place] [address], [place] [address] URINE CULTUREon 08-11-2023 Bacteria identified Cx Nom (U) CULTURE RESULTS <10,000 ORGANISMS/ML NORMAL URO GENITAL LOIS Normal [facility] Comment on above: Performed By: #### 6 30-4 #### [facility] ([id number]) [address] [place] [address], [address] [place] [address] Office Visiton 06-24-2023 Follow-up visit [id number] Leanna Nelson 1940 M Date Provider Department Center 06/24/2023 AYSE VIVAR Family History Problem Relation Age of Onset Coronary artery disease Brother Heart attack Brother Heart failure Brother Other Brother Family Status - Relation Status Age at Brother Level of Service:43566 UT OFFICE/OUTPATIENT ESTABLISHED LOW MDM 20 MIN Normal [facility] CNOVon 03-23-2023 CNOV Office Visit (JUJUF ) LEANNA NELSON ([id number]) 1940 M Date Time Provider Department 03/23/23 2:00 PM JODI BANERJEE During your visit today, we recorded the following information about you: Pulse Blood pressure 51/minute 151/68 Jodi Banerjee, DO 03/23/2023 2:41 PM Signed [facility] Neurologic [place] Follow-up visit March 23, 2023 HPI: Overall [...] encounter he has moved and low lives [facility]. He states he does not [...] mainly his brother. He has seen by planning specialist in 01/2023 with suggestion that he get a hearing aide but he refuses. After his last encounter he has followed up with cardiology concerning his heart rate that was auscultated on last encounter. They checked his heart rhythm and thought it was appropriate. This was as via physician in [place]. They deny other changes to his health and/or medications except for the above since our last encounter. PAST MEDICAL HISTORY Diagnosis Date Arthritis Carotid stenosis Coronary artery disease Coronary atherosclerosis of unspecified type of vessel, [place] or graft 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 Dyslipidemia Hypertension Hypertension Hypothyroid Lumbar disc disease Unspecified hypothyroidism Hypothyroidism PAST SURGICAL HISTORY Procedure Laterality Date PAST SURGICAL HISTORY OF CABG times 6 left internal thoracic artery to the [id number] left anterior descending artery, reverse saphenous vein [...] mouth onc (more content not included)... [facility] LEANNA NELSON ([id number]) 1940 M Date Time Provider Department 03/23/23 JODI BANERJEE NEUAV4 During your visit today, we recorded the [...] advised via voice message to send a [employer] msg if he had any further question. Terri Santos Radio Host Allergies As of Date: 03/23/2023 Noted Allergy [...] testing [Z01.818] 05/27/2011 Coronary artery disease involving [place] heart *05/27/2011 Post-operative pain [G89.18] 05/28/2011 Stress hyperglycemia [R73.9] 05/28/2011 06/01/2011 Mechanically assisted ventilation [Z99.11] 05/28/2011 05/29/2011 Hypotension [I95.9] 05/28/2011 05/30/2011 Hypothyroid [E03.9] 05/28/2011 Hyperlipidemia [E78.5] 05/28/2011 SUMMARY [V999.95] 05/30/2011 Hypertension [I10] 05/30/2011 S/P CABG (coronary artery bypass graft), PARRA t*02/20/2020 Encounter Status:Closed by TERRI SANTOS on 03/23/23 Normal [facility] CT CHEST WO CONon 10-27-2022 [...] by: LEATHA GAVIRIA Date: 2022-10-27 10:00 Normal [facility] LIPID PROFILEon 09-24-2022 CHOL-HDL RATIO NORM SEE BELOW Normal [facility] Comment on above: Result Comment: 3.3 - 4.4 LOW RISK 4.4 - 7.1 AVERAGE RISK 7.1 - 11.0 MODERATE RISK >11.0 HIGH RISK Performed By: #### L IPID, CMP ####[facility] [id number] [place] [id number]. Aissatou Vásquez Cholesterol [Mass/Vol] 149 mg/dL Normal <=200 [facility] Comment on above: Performed By: #### L IPID, CMP ####[facility] [id number] [place] [id number]. Aissatou Vásquez Cholesterol in HDL [Mass/Vol] 83 mg/dL Critically high 40-60 [facility] Comment on above: Performed By: #### L IPID, CMP ####[facility] [id number] [place] [id number]. Aissatou Fahad Cholesterol in LDL [Mass/Vol] 58.6 mg/dL Normal [facility] Comment on above: Performed By: #### L IPID, CMP ####[facility] [id number] [place] [address]Dr. Aissatou Fahad Cholesterol.total/Cho lesterol in HDL [Mass ratio] 1.8 {ratio} Normal [facility] Comment on above: Performed By: #### L IPID, CMP ####[facility] [id number] [place] [id number]. Aissatou Vásquez HDL NORMAL > or = 60 mg/dl - LO W CARDIOVASCULAR RISK <40 mg/dl - HIGH CARDIOVASCULAR RISK Normal [facility] Comment on above: Performed By: #### L IPID, CMP ####[facility] [id number] [place] [id number]. Aissatou Vásquez LDL CALC NORMAL SEE BELOW Normal [facility] Comment on above: Result Comment: <100 mg/dl OPTIMAL 100 - 129 mg/dl NEAR OR ABOVE OPTIMAL 130 - 159 mg/dl BORDERLINE HIGH 160 - 189 mg/dl HIGH >190 mg/dl VERY HIGH Performed By: #### L IPID, CMP ####[facility] [id number] [place] [id number]. Sheysarah Vásquez Triglyceride [Mass/Vol] 37 mg/dL Normal <=150 [facility] Comment on above: Performed By: #### L IPID, CMP ####[facility] [id number] [place] [address]Dr. Aissatou Vásquez VLDL CALC 7.4 mg/dL Normal [facility] Comment on above: Performed By: #### L IPID, CMP ####[facility] [id number] [place] [address]Dr. Aissatou Vásquez PROF 14(COMP METB)on 023 Albumin [Mass/Vol] 3.8 g/dL Normal 3.4-5.0 [facility] Comment on above: Performed By: #### L IPID, CMP ####[facility] [id number] [place] [address]Dr. Aissatou Vásquez Albumin/Globulin [Mass ratio] 1.0 {ratio} Normal [facility] Comment on above: Performed By: #### L IPID, CMP ####[facility] [id number] [place], [place] [address]Dr. Aissatou Vásquez ALP [Catalytic activity/Vol] 98 U/L Normal 46-116 [facility] Comment on above: Performed By: #### L IPID, CMP ####[facility] [id number] [place] [address]Dr. Aissatou Vásquez ALT [Catalytic activity/Vol] 25 U/L Normal 16-63 [facility] Comment on above: Performed By: #### L IPID, CMP ####[facility] [id number] [address]Dr. Aissatou Vásquez Anion gap [Moles/Vol] 15.5 mmol/L Normal [facility] Comment on above: Performed By: #### L IPID, CMP ####[facility] [address] [address]Dr. Aissatou Vásquez AST [Catalytic activity/Vol] 21 U/L Normal 15-37 [facility] Comment on above: Performed By: #### L IPID, CMP ####[facility] [address] [address]Dr. Aissatou Vásquez Bilirubin [Mass/Vol] 0.5 mg/dL Normal 0.2-1.0 [facility] Comment on above: Performed By: #### L IPID, CMP ####[facility] [address] [address]Dr. Aissatou Vásquez Calcium [Mass/Vol] 9.5 mg/dL Normal 8.5-10.1 [facility] Comment on above: Performed By: #### L IPID, CMP ####[facility] [address] [address]Dr. Aissatou Vásquez Chloride [Moles/Vol] 107 mmol/L Normal 98-107 [facility] Comment on above: Performed By: #### L IPID, CMP ####[facility] [address] [place], [place] [address]Dr. Aissatou Vásquez CO2 [Moles/Vol] 23.0 mmol/L Normal 21.0-32.0 [facility] Comment on above: Performed By: #### L IPID, CMP ####[facility] [address] [place], [place] [address]Dr. Aissatou Vásquez Creatinine [Mass/Vol] 1.75 mg/dL Critically high 0.70-1.30 [facility] Comment on above: Performed By: #### L IPID, CMP ####[facility] [address] [place], [place] [address]Dr. Aissatou Vásquez EGFR-AF MALAGASY 45 mL/min/1.73m2 Critically low >=60 [facility] Comment on above: Performed By: #### L IPID, CMP ####[facility] [address] [place], [place] [address]Dr. Aissatou Vásquez EGFR-NON AF MALAGASY 37 mL/min/1.73m2 Critically low >=60 [facility] Comment on above: Performed By: #### L IPID, CMP ####[facility] [address] [place], [place] [address]Dr. Aissatou Vásquez Globulin (S) [Mass/Vol] 3.7 g/dL Normal [facility] Comment on above: Performed By: #### L IPID, CMP ####[facility] [address] [place], [place] [address]Dr. Aissatou Vásquez Glucose [Mass/Vol] 83 mg/dL Normal 74-[address] [facility] Comment on above: Performed By: #### L IPID, CMP ####[facility] [address] [id number]. Aissatou Vásquez Potassium [Moles/Vol] 4.5 mmol/L Normal 3.5-5.1 [facility] Comment on above: Performed By: #### L IPID, CMP ####[facility] [address] [id number]. Aissatou Vásquez Protein [Mass/Vol] 7.5 g/dL Normal 6.4-8.[address] [facility] Comment on above: Performed By: #### L IPID, CMP ####[facility] [address] [id number]. Aissatou Vásquez Sodium [Moles/Vol] 141 mmol/L Normal 136-[address] [facility] Comment on above: Performed By: #### L IPID, CMP ####[facility] [address] [place] [id number]. Aissatou Vásquez Urea nitrogen [Mass/Vol] 46.0 mg/dL Critically high 7.0-18.0 [facility] Comment on above: Performed By: #### L IPID, CMP ####[facility] [address] [place] [id number]. Aissatou Vásquez Urea nitrogen/Creatinine [Mass ratio] 26.3 mg/mg Normal [facility] Comment on above: Performed By: #### L IPID, CMP ####[facility] [address] [id number]. Aissatou Vásquez 25(OH)D3 [facility] 2022 25-hydroxyvitamin D3 [Mass/Vol] 28.6 ng/mL Low 31.0-80.0 [facility] Comment on above: Order Comment: Speci men Type: BLOOD SPECIMEN Ordering Facility: [facility] Address: [address] [place] [id number] Result Comment: Clas sification of 25 [place] Vitamin D status: Deficiency/Insufficiency: < or = 30 ng/ml. Sufficiency/Optimal Levels: 31-80 ng/mL Toxicity: > 100 ng/mL. Test performed by chemiluminescent immunoassay. 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 Normal [facility] Reagin and Treponema pallidu m IgG and IgM [Interp]on 08-27-2022 SYPHILIS INTERPRETATION Cannot exclude recent Treponemal infection if specimen collected within 7-10 days after appearance of suspect lesions or 2-3 weeks after an exposure. Clinical correlation is required. Normal [facility] Comment on above: Order Comment: Speci men Type: BLOOD SPECIMEN Ordering Facility: [facility] Address: [address] [address] Performed By: #### 7 3752-8 #### [facility] CLIA [id number] [address] [place] [address] [place] T. pallidum IgG+IgM IA Ql (S) Non-Reactive Normal Nonreactive [facility] Comment on above: Order Comment: Speci men Type: BLOOD SPECIMEN Ordering Facility: [facility] Address: [address] [address] Performed By: #### 7 3752-8 #### [facility] CLIA [id number] [facility] [place] [address] [place] CREATININEon 07-11-2022 Creatinine [Mass/Vol] 2.09 mg/dL Critically high 0.70-1.30 [facility] Comment on above: Performed By: #### C ADAM #### [facility] [address] [address] [address] Aissatou Vásquez EGFR-AF MALAGASY 37 mL/min/1.73m2 Critically low >=60 [facility] Comment on above: Performed By: #### C ADAM #### [facility] [address] [address] [address] Aissatou Vásquez EGFR-NON AF MALAGASY 30 mL/min/1.73m2 Critically low >=60 [facility] Comment on above: Performed By: #### C ADAM #### [facility] [address] [address] [address] Aissatou Vásquez MRI BRAIN WO CONon [...] LEATHA GAVIRIA Date: 2022-07-11 15:11 Normal [facility] CULTURE BLOODon 07-10-2022 Microscopic examination of [...] Tetracycline S P Tobramycin S P Normal [facility] Comment on above: Performed By: #### B LDCX2 ####[facility] [address] [address]Dr. Aissatou Vásquez CBC AUTO DIFFon 07-04-2022 BASO # 0.0 103/ul Normal 0.0-0.1 [facility] Comment on above: Performed By: #### L DHARA WAITE, HSTROPN #### [facility] [address] [address] [address] Aissatou Vásquez Basophils/100 WBC (Bld) 0.3 % Normal 0.2-2.0 [facility] Comment on above: Performed By: #### L DHARA WAITE, HSTROPN #### [facility] [address] [address] [address] Aissatou Vásquez EO # 0.0 103/ul Normal 0.0-0.7 [facility] Comment on above: Performed By: #### L DHARA WAITE, HSTROPN #### [facility] [address] [address] [address] Aissatou Vásquez Eosinophils/100 WBC (Bld) 0.6 % Critically low 0.9-7.0 [facility] Comment on above: Performed By: #### L DHARA WAITE, HSTROPN #### [facility] [address] [address] [address] Aissatou Vásquez Erythrocyte distribution width (RBC) [Ratio] 13.7 % Normal 11.0-15.0 [facility] Comment on above: Performed By: #### L DHARA WAITE, HSTROPN #### [facility] [address] [address] [address] Aissatou Vásquez Hematocrit (Bld) [Volume fraction] 34.2 % Critically low 42.0-54.0 [facility] Comment on above: Performed By: #### L IVER, BMP, HSTROPN #### [facility] [address] [place] [address] Dr. Aissatou Vásquez Hemoglobin (Bld) [Mass/Vol] 10.7 g/dL Critically low 14.0-18.0 [facility] Comment on above: Performed By: #### L IVER, BMP, HSTROPN #### [facility] [address] [place] [address] Dr. Aissatou Vásquez IG # 0.02 10e3/ul Normal 0.00-0.03 [facility] Comment on above: Performed By: #### L IVER, BMP, HSTROPN #### [facility] [address] [place] [address] Dr. Aissatou Vásquez IG % 0.3 % Normal 0.0-0.5 [facility] Comment on above: Performed By: #### L IVER, BMP, HSTROPN #### [facility] [address] [place] [address] Dr. Aissatou Vásquez LYMPH # 1.7 103/ul Normal 1.2-3.8 [facility] Comment on above: Performed By: #### L IVER, BMP, HSTROPN #### [facility] [address] [place] [address] Dr. Aissatou Vásquez Lymphocytes/100 WBC (Bld) 25.6 % Normal 20.5-60.0 [facility] Comment on above: Performed By: #### L IVER, BMP, HSTROPN #### [facility] [address] [place] [address] Dr. Aissatou Vásquez MANUAL DIFF REQ NO Normal [facility] Comment on above: Performed By: #### L IVER, BMP, HSTROPN #### [facility] [address] [place] [address] Dr. Aissatou Vásquez MCH (RBC) [Entitic mass] 29.6 pg Normal 25.9-34.0 [facility] Comment on above: Performed By: #### L IVER, BMP, HSTROPN #### [facility] [address] [place] [address] Dr. Aissatou Vásquez MCHC (RBC) [Mass/Vol] 31.3 g/dL Normal 29.9-35.2 [facility] Comment on above: Performed By: #### L IVER, BMP, HSTROPN #### [facility] [address] [place] [address] Dr. Aissatou Vásquez MCV (RBC) [Entitic vol] 94.5 fL Critically high 80.0-94.0 [facility] Comment on above: Performed By: #### L IVER, BMP, HSTROPN #### [facility] [address] [place] [address] Dr. Aissatou Vásquez MONO # 0.7 103/ul Normal 0.3-0.8 [facility] Comment on above: Performed By: #### L IVER, BMP, HSTROPN #### [facility] [address] [place] [address] Dr. Aissatou Vásquez Monocytes/100 WBC (Bld) 11.2 % Normal 1.7-12.0 [facility] Comment on above: Performed By: #### L IVER, BMP, HSTROPN #### [facility] [address] [place] [address] Dr. Aissatou Vásquez NEUT # 4.0 103/ul Normal 1.4-6.5 [facility] Comment on above: Performed By: #### L IVER, BMP, HSTROPN #### [facility] [address] [place] [address] Dr. Aissatou Vásquez Neutrophils/100 WBC (Bld) 62.0 % Normal 43.0-75.0 [facility] Comment on above: Performed By: #### L IVER, BMP, HSTROPN #### [facility] [address] [place] [address] Dr. Aissatou Vásquez Platelet mean volume (Bld) [Entitic vol] 10.4 fL Normal 9.5-13.5 [facility] Comment on above: Performed By: #### L IVER, BMP, HSTROPN #### [facility] [address] [address] [address] Aissatou Vásquez PLT 134 103/ul Critically low 150-450 [facility] Comment on above: Performed By: #### L IVER, BMP, HSTROPN #### [facility] [address] [address] [address] Aissatou Vásquez RBC 3.62 106/ul Critically low 4.70-6.10 [facility] Comment on above: Performed By: #### L IVER, BMP, HSTROPN #### [facility] [address] [address] [address] Aissatou Vásquez WBC 6.5 103/ul Normal 4.0-11.0 [facility] Comment on above: Performed By: #### L IVER, BMP, HSTROPN #### [facility] [address] [place] [address] Dr. Aissatou Vásquez CPKon 07-04-2022 CK [Catalytic activity/Vol] 149 U/L Normal 39-308 [facility] Comment on above: Performed By: #### L IVER, BMP, HSTROPN #### [facility] [address] [address] [address] Aissatou Vásquez MAGNESIUMon 07-04-2022 Magnesium [Mass/Vol] 1.7 mg/dL Critically low 1.8-2.4 [facility] Comment on above: Performed By: #### L IVER, BMP, HSTROPN #### [facility] [address] [address] [address] Aissatou Vásquez PHOSPHORUSon 07-04-2022 Phosphate [Mass/Vol] 3.6 mg/dL Normal 2.6-4.7 [facility] Comment on above: Performed By: #### L IVER, BMP, HSTROPN #### [facility] [address] [place] [address] Dr. Aissatou Vásquez PROF 14(COMP METB)on Albumin [Mass/Vol] 2.8 g/dL Critically low 3.4-5.0 [facility] Comment on above: Performed By: #### L IVER, BMP, HSTROPN #### [facility] [address] [address] [address] Aissatou Vásquez Albumin/Globulin [Mass ratio] 0.9 {ratio} Normal [facility] Comment on above: Performed By: #### L IVER, BMP, HSTROPN #### [facility] [address] [place] [address] Dr. Aissatou Vásquez ALP [Catalytic activity/Vol] 86 U/L Normal 46-116 [facility] Comment on above: Performed By: #### L IVER, BMP, HSTROPN #### [facility] [address] [place] [address] Dr. Aissatou Vásquez ALT [Catalytic activity/Vol] 50 U/L Normal 16-63 [facility] Comment on above: Performed By: #### L IVER, BMP, HSTROPN #### [facility] [address] [place] [address] Dr. Aissatou Vásquez Anion gap [Moles/Vol] 11.6 mmol/L Normal [facility] Comment on above: Performed By: #### L IVER, BMP, HSTROPN #### [facility] [address] [place] [address] Dr. Aissatou Vásquez AST [Catalytic activity/Vol] 41 U/L Critically high 15-37 [facility] Comment on above: Performed By: #### L IVER, BMP, HSTROPN #### [facility] [address] [place] [address] Dr. Aissatou Vásquez Bilirubin [Mass/Vol] 0.4 mg/dL Normal 0.2-1.0 [facility] Comment on above: Performed By: #### L IVER, BMP, HSTROPN #### [facility] [address] [place] [address] Dr. Aissatou Vásquez Calcium [Mass/Vol] 8.7 mg/dL Normal 8.5-10.1 [facility] Comment on above: Performed By: #### L IVER, BMP, HSTROPN #### [facility] [address] [place] [address] Dr. Aissatou Vásquez Chloride [Moles/Vol] 106 mmol/L Normal 98-107 [facility] Comment on above: Performed By: #### L IVER, BMP, HSTROPN #### [facility] [address] [place] [address] Dr. Aissatou Vásquez CO2 [Moles/Vol] 27.0 mmol/L Normal 21.0-32.0 [facility] Comment on above: Performed By: #### L IVER, BMP, HSTROPN #### [facility] [address] [place] [address] Dr. Aissatou Vásquez Creatinine [Mass/Vol] 1.99 mg/dL Critically high 0.70-1.30 [facility] Comment on above: Performed By: #### L IVER, BMP, HSTROPN #### [facility] [address] [place] [address] Dr. Aissatou Vásquez EGFR-AF MALAGASY 39 mL/min/1.73m2 Critically low >=60 [facility] Comment on above: Performed By: #### L IVER, BMP, HSTROPN #### [facility] [address] [place] [address] Dr. Aissatou Vásquez EGFR-NON AF MALAGASY 32 mL/min/1.73m2 Critically low >=60 [facility] Comment on above: Performed By: #### L IVER, BMP, HSTROPN #### [facility] [address] [place] [address] Dr. Aissatou Vásquez Globulin (S) [Mass/Vol] 3.1 g/dL Normal [facility] Comment on above: Performed By: #### L IVER, BMP, HSTROPN #### [facility] [address] [place] [address] Dr. Aissatou Vásquez Glucose [Mass/Vol] 93 mg/dL Normal 74-106 [facility] Comment on above: Performed By: #### L IVER, BMP, HSTROPN #### [facility] [address] [place] [address] Dr. Aissatou Vásquez Potassium [Moles/Vol] 4.6 mmol/L Normal 3.5-5.1 [facility] Comment on above: Performed By: #### L DHARA WAITE, HSTROPN #### [facility] [address] [address] [address] Aissatou Vásquez Protein [Mass/Vol] 5.9 g/dL Critically low 6.4-8.2 [facility] Comment on above: Performed By: #### L IVDHARA LANDRY, HSTROPN #### [facility] [address] [address] [address] Aissatou Vásquez Sodium [Moles/Vol] 140 mmol/L Normal 136-[address] [facility] Comment on above: Performed By: #### L IVDHARA LANDRY, HSTROPN #### [facility] [address] [address] [address] Aissatou Vásquez Urea nitrogen [Mass/Vol] 50.0 mg/dL Critically high 7.0-18.0 [facility] Comment on above: Performed By: #### L IVDHARA LANDRY, HSTROPN #### [facility] [address] [address] [address] Aissatou Vásquez Urea nitrogen/Creatinine [Mass ratio] 25.1 mg/mg Normal [facility] Comment on above: Performed By: #### L DHARA WAITE, HSTROPN #### [facility] [address] [address] [address] Aissatou Vásquez PROTIMEon 07-04-2022 INR Coag (PPP) [Relative time] 1.05 {INR} Normal [facility] Comment on above: Performed By: #### C ADAM #### [facility] [address] [address] [address] Aissatou Vásquez INR GUIDELINES SEE BELOW Normal [facility] Comment on above: Result Comment: ELISABETH RED INR: 2.0 - 3.0 CONDITIONS NOT LISTED BELOW 2.5 - 3.5 FOR PROSTHETIC HEART VALVE REPLACEMENT 2.5 - 3.5 RECURRENT THROMBOSIS Performed By: #### C ADAM #### [facility] [address] [place] [address] Dr. Aissatou Vásquez PT Coag (PPP) [Time] 11.3 s Normal 9.0-11.6 [facility] Comment on above: Performed By: #### C ADAM #### [facility] [address] [place] [address] Dr. Aissatou Vásquez CBC AUTO DIFFon 07-03-2022 BASO # 0.0 103/ul Normal 0.0-0.1 [facility] Comment on above: Performed By: #### L IVER, BMP, HSTROPN #### [facility] [address] [place] [address] Dr. Aissatou Vásquez Basophils/100 WBC (Bld) 0.3 % Normal 0.2-2.0 [facility] Comment on above: Performed By: #### L IVER, BMP, HSTROPN #### [facility] [address] [place] [address] Dr. Aissatou Vásquez EO # 0.0 103/ul Normal 0.0-0.7 [facility] Comment on above: Performed By: #### L IVER, BMP, HSTROPN #### [facility] [address] [place] [address] Dr. Aissatou Vásquez Eosinophils/100 WBC (Bld) 0.3 % Critically low 0.9-7.0 [facility] Comment on above: Performed By: #### L IVER, BMP, HSTROPN #### [facility] [address] [place] [address] Dr. Aissatou Vásquez Erythrocyte distribution width (RBC) [Ratio] 13.8 % Normal 11.0-15.0 [facility] Comment on above: Performed By: #### L IVER, BMP, HSTROPN #### [facility] [address] [place] [address] Dr. Aissatou Vásquez Hematocrit (Bld) [Volume fraction] 31.7 % Critically low 42.0-54.0 [facility] Comment on above: Performed By: #### L IVER, BMP, HSTROPN #### [facility] [address] [place] [address] Dr. Aissatou Vásquez Hemoglobin (Bld) [Mass/Vol] 10.2 g/dL Critically low 14.0-18.0 [facility] Comment on above: Performed By: #### L IVER, BMP, HSTROPN #### [facility] [address] [address] [address] Aissatou Vásquez IG # 0.02 10e3/ul Normal 0.00-0.03 [facility] Comment on above: Performed By: #### L IVER, BMP, HSTROPN #### [facility] [address] [place] [address] Dr. Aissatou Vásquez IG % 0.3 % Normal 0.0-0.5 [facility] Comment on above: Performed By: #### L IVER, BMP, HSTROPN #### [facility] [address] [place] [address] Dr. Aissatou Vásquez LYMPH # 1.5 103/ul Normal 1.2-3.8 [facility] Comment on above: Performed By: #### L IVER, BMP, HSTROPN #### [facility] [address] [place] [address] Dr. Aissatou Vásquez Lymphocytes/100 WBC (Bld) 20.3 % Critically low 20.5-60.0 [facility] Comment on above: Performed By: #### L IVER, BMP, HSTROPN #### [facility] [address] [place] [address] Dr. Aissatou Vásquez MANUAL DIFF REQ NO Normal [facility] Comment on above: Performed By: #### L IVER, BMP, HSTROPN #### [facility] [address] [place] [address] Dr. Aissatou Vásquez MCH (RBC) [Entitic mass] 30.3 pg Normal 25.9-34.0 [facility] Comment on above: Performed By: #### L IVER, BMP, HSTROPN #### [facility] [address] [place] [address] Dr. Aissatou Vásquez MCHC (RBC) [Mass/Vol] 32.2 g/dL Normal 29.9-35.2 [facility] Comment on above: Performed By: #### L IVER, BMP, HSTROPN #### [facility] [address] [place] [address] Dr. Aissatou Vásquez MCV (RBC) [Entitic vol] 94.1 fL Critically high 80.0-94.0 [facility] Comment on above: Performed By: #### L IVER, BMP, HSTROPN #### [facility] [address] [place] [address] Dr. Aissatou Vásquez MONO # 0.7 103/ul Normal 0.3-0.8 [facility] Comment on above: Performed By: #### L IVER, BMP, HSTROPN #### [facility] [address] [place] [address] Dr. Aissatou Vásquez Monocytes/100 WBC (Bld) 9.9 % Normal 1.7-12.0 [facility] Comment on above: Performed By: #### L IVER, BMP, HSTROPN #### [facility] [address] [place] [address] Dr. Aissatou Vásquez NEUT # 4.9 103/ul Normal 1.4-6.5 [facility] Comment on above: Performed By: #### L IVER, BMP, HSTROPN #### [facility] [address] [place] [address] Dr. Aissatou Vásquez Neutrophils/100 WBC (Bld) 68.9 % Normal 43.0-75.0 [facility] Comment on above: Performed By: #### L IVER, BMP, HSTROPN #### [facility] [address] [place] [address] Dr. Aissatou Vásquez Platelet mean volume (Bld) [Entitic vol] 10.7 fL Normal 9.5-13.5 [facility] Comment on above: Performed By: #### L IVER, BMP, HSTROPN #### [facility] [address] [place] [address] Dr. Aissatou Vásquez PLT 141 103/ul Critically low 150-450 [facility] Comment on above: Performed By: #### L IVER, BMP, HSTROPN #### [facility] [address] [address] [address] Aissatou Vásquez RBC 3.37 106/ul Critically low 4.70-6.10 [facility] Comment on above: Performed By: #### L IVER, BMP, HSTROPN #### [facility] [address] [address] [address] Aissatou Vásquez WBC 7.1 103/ul Normal 4.0-11.0 [facility] Comment on above: Performed By: #### L IVER, BMP, HSTROPN #### [facility] [address] [address] [address] Aissatou Vásquez CPKon 07-03-2022 CK [Catalytic activity/Vol] 331 U/L Critically high 39-308 [facility] Comment on above: Performed By: #### L IVER, BMP, HSTROPN #### [facility] [address] [address] [address] Vásquez [address] ABD/PELVIS WO CONon [...] STEPHEN ROUSE Date: 2022-07-03 11:06 Normal [facility] CULTURE BLOODon 07-03-2022 Microscopic examination of blood, culture Culture Observations: NO GROWTH AT 5 DAYS. Normal [facility] Comment on above: Performed By: #### B LDCX2 ####[facility] [address] [address]Dr. Aissatou Vásquez Microscopic examination of blood, culture Culture Observations: NO GROWTH AT 5 DAYS. Normal [facility] Comment on above: Performed By: #### B LDCX1 ####[facility] [address] [address]Dr. Aissatou Vásquez MAGNESIUMon 07-03-2022 Magnesium [Mass/Vol] 1.8 mg/dL Normal 1.8-2.4 [facility] Comment on above: Performed By: #### DHARA KONG HSTROPN #### [facility] [address] [address] [address] Aissatou Vásquez PHOSPHORUSon 07-03-2022 Phosphate [Mass/Vol] 4.0 mg/dL Normal 2.6-4.7 [facility] Comment on above: Performed By: #### DHARA KONG HSTROPN #### [facility] [address] [address] [address] Aissatou Vásquez POINT OF CARE GLUCOSEon 06-06 Glucose [Mass/Vol] 77 mg/dL Normal 74-106 [facility] Comment on above: Performed By: #### Soni ADAM #### [facility] [address] [address] [address] Aissatou Vásquez PROF 14(COMP METB)on 022 Albumin [Mass/Vol] 2.6 g/dL Critically low 3.4-5.0 Th [facility] Comment on above: Performed By: #### L IVER, BMP, HSTROPN #### [facility] [address] [address] [address] Aissatou Vásquez Albumin/Globulin [Mass ratio] 0.9 {ratio} Normal [facility] Comment on above: Performed By: #### L IVER, BMP, HSTROPN #### [facility] [address] [address] [address] Aissatou Vásquez ALP [Catalytic activity/Vol] 81 U/L Normal 46-116 [facility] Comment on above: Performed By: #### L IVER, BMP, HSTROPN #### [facility] [address] [place] [address] Dr. Aissatou Vásquez ALT [Catalytic activity/Vol] 46 U/L Normal 16-63 [facility] Comment on above: Performed By: #### L IVER, BMP, HSTROPN #### [facility] [address] [place] [address] Dr. Aissatou Vásquez Anion gap [Moles/Vol] 11.9 mmol/L Normal [facility] Comment on above: Performed By: #### L IVER, BMP, HSTROPN #### [facility] [address] [place] [address] Dr. Aissatou Vásquez AST [Catalytic activity/Vol] 45 U/L Critically high 15-37 [facility] Comment on above: Performed By: #### L IVER, BMP, HSTROPN #### [facility] [address] [address] [address] Aissatou Vásquez Bilirubin [Mass/Vol] 0.2 mg/dL Normal 0.2-1.0 [facility] Comment on above: Performed By: #### L IVER, BMP, HSTROPN #### [facility] [address] [place] [address] Dr. Aissatou Vásquez Calcium [Mass/Vol] 8.5 mg/dL Normal 8.5-10.1 [facility] Comment on above: Performed By: #### L IVER, BMP, HSTROPN #### [facility] [address] [address] [address] Aissatou Vásquez Chloride [Moles/Vol] 108 mmol/L Critically high 98-107 [facility] Comment on above: Performed By: #### L IVER, BMP, HSTROPN #### [facility] [address] [address] [address] Aissatou Vásquez CO2 [Moles/Vol] 25.9 mmol/L Normal 21.0-32.0 [facility] Comment on above: Performed By: #### L IVER, BMP, HSTROPN #### [facility] [address] [place] [address] Dr. Aissatou Vásquez Creatinine [Mass/Vol] 2.34 mg/dL Critically high 0.70-1.30 [facility] Comment on above: Performed By: #### L IVER, BMP, HSTROPN #### [facility] [address] [place] [address] Dr. Aissatou Vásquez EGFR-AF MALAGASY 32 mL/min/1.73m2 Critically low >=60 [facility] Comment on above: Performed By: #### L IVER, BMP, HSTROPN #### [facility] [address] [place] [address] Dr. Aissatou Vásquez EGFR-NON AF MALAGASY 27 mL/min/1.73m2 Critically low >=60 [facility] Comment on above: Performed By: #### L IVER, BMP, HSTROPN #### [facility] [address] [address] [address] Aissatou Vásquez Globulin (S) [Mass/Vol] 3.0 g/dL Normal [facility] Comment on above: Performed By: #### L IVER, BMP, HSTROPN #### [facility] [address] [place] [address] Dr. Aissatou Vásquez Glucose [Mass/Vol] 93 mg/dL Normal 74-106 [facility] Comment on above: Performed By: #### L IVER, BMP, HSTROPN #### [facility] [address] [place] [address] Dr. Aissatou Vásquez Potassium [Moles/Vol] 4.8 mmol/L Normal 3.5-5.1 [facility] Comment on above: Performed By: #### L IVDHARA LANDRY, HSTROPN #### [facility] [address] [address] [address] Aissatou Vásquez Protein [Mass/Vol] 5.6 g/dL Critically low 6.4-8.2 Th [facility] Comment on above: Performed By: #### L IVFRANTZ BMP, HSTROPN #### [facility] [address] [address] [address] Aissatou Vásquez Sodium [Moles/Vol] 141 mmol/L Normal 136-145 [facility] Comment on above: Performed By: #### L IVFRANTZ BMP, HSTROPN #### [facility] [address] [place] [address] Dr. Aissatou Vásquez Urea nitrogen [Mass/Vol] 61.0 mg/dL Critically high 7.0-18.0 [facility] Comment on above: Performed By: #### L IVDHARA LANDRY, HSTROPN #### [facility] [address] [place] [address] Dr. Aissatou Vásquez Urea nitrogen/Creatinine [Mass ratio] 26.1 mg/mg Normal [facility] Comment on above: Performed By: #### L IVDHARA LANDRY, HSTROPN #### [facility] [address] [place] [address] Dr. Aissatou Vásquez PROTIMEon 07-03-2022 INR Coag (PPP) [Relative time] 1.12 {INR} Normal [facility] Comment on above: Performed By: #### C ADAM #### [facility] [address] [place] [address] Dr. Aissatou Vásquez INR GUIDELINES SEE BELOW Normal [facility] Comment on above: Result Comment: ELISABETH RED INR: 2.0 - 3.0 CONDITIONS NOT LISTED BELOW 2.5 - 3.5 FOR PROSTHETIC HEART VALVE REPLACEMENT 2.5 - 3.5 RECURRENT THROMBOSIS Performed By: #### C ADAM #### [facility] [address] [address] [address] Aissatou Vásquez PT Coag (PPP) [Time] 12.0 s Critically high 9.0-11.6 [facility] Comment on above: Performed By: #### C ADAM #### [facility] [address] [address] [address] Aissatou Vásquez CBC AUTO DIFFon 07-02-2022 BASO # 0.0 103/ul Normal 0.0-0.1 [facility] Comment on above: Performed By: #### C BC ####[facility] [address] [address]DrBud Vásquez Basophils/100 WBC (Bld) 0.1 % Critically low 0.2-2.0 [facility] Comment on above: Performed By: #### C BC ####[facility] [address] [place], [place] [address]Dr. Aissatou Vásquez EO # 0.0 103/ul Normal 0.0-0.7 [facility] Comment on above: Performed By: #### C BC ####[facility] [address] [address]Dr. Aissatou Vásquez Eosinophils/100 WBC (Bld) 0.0 % Critically low 0.9-7.0 [facility] Comment on above: Performed By: #### C BC ####[facility] [address] [place], [place] [address]DrBud Vásquez Erythrocyte distribution width (RBC) [Ratio] 13.4 % Normal 11.0-15.0 [facility] Comment on above: Performed By: #### C BC ####[facility] [address] [place], [place] [address]Dr. Aissatou Vásquez Hematocrit (Bld) [Volume fraction] 39.9 % Critically low 42.0-54.0 [facility] Comment on above: Performed By: #### C BC ####[facility] [address] [place], [place] [address]DrBdu Vásquez Hemoglobin (Bld) [Mass/Vol] 12.8 g/dL Critically low 14.0-18.0 [facility] Comment on above: Performed By: #### C BC ####[facility] [address] [id number]. Sheysarah Vásquez IG # 0.05 10e3/ul Critically high 0.00-0.03 [facility] Comment on above: Performed By: #### C BC ####[facility] [address] [id number]. Aissatou Vásquez IG % 0.4 % Normal 0.0-0.5 [facility] Comment on above: Performed By: #### C BC ####[facility] [address] [address]Dr. Aissatou Vásquez LYMPH # 0.8 103/ul Critically low 1.2-3.8 [facility] Comment on above: Performed By: #### C BC ####[facility] [address] [address]Dr. Aissatou Vásquez Lymphocytes/100 WBC (Bld) 7.2 % Critically low 20.5-60.0 [facility] Comment on above: Performed By: #### C BC ####[facility] [address] [address]Dr. Aissatou Vásquez MANUAL DIFF REQ NO Normal [facility] Comment on above: Performed By: #### C BC ####[facility] [address] [id number]. Aissatou Vásquez MCH (RBC) [Entitic mass] 30.0 pg Normal 25.9-34.0 [facility] Comment on above: Performed By: #### C BC ####[facility] [address] [id number]. Aissatou Vásquez MCHC (RBC) [Mass/Vol] 32.1 g/dL Normal 29.9-35.2 [facility] Comment on above: Performed By: #### C BC ####[facility] [address] [address]Dr. Aissatou Vásquez MCV (RBC) [Entitic vol] 93.7 fL Normal 80.0-94.0 [facility] Comment on above: Performed By: #### C BC ####[facility] [address] [id number]. Aissatou Vásquez MONO # 0.8 103/ul Normal 0.3-0.8 [facility] Comment on above: Performed By: #### C BC ####[facility] [address] [place] [id number]. Aissatou Vásquez Monocytes/100 WBC (Bld) 6.8 % Normal 1.7-12.0 [facility] Comment on above: Performed By: #### C BC ####[facility] [address] [place] [id number]. Aissatou Vásquez NEUT # 9.8 103/ul Critically high 1.4-6.5 [facility] Comment on above: Performed By: #### C BC ####[facility] [address] [address]Dr. Aissatou Vásquez Neutrophils/100 WBC (Bld) 85.5 % Critically high 43.0-75.0 [facility] Comment on above: Performed By: #### C BC ####[facility] [address] [place] [id number]. Aissatou Vásquez Platelet mean volume (Bld) [Entitic vol] 10.8 fL Normal 9.5-13.5 [facility] Comment on above: Performed By: #### C BC ####[facility] [address] [place] [id number]. Aissatou Vásquez PLT 170 103/ul Normal 150-450 [facility] Comment on above: Performed By: #### C BC ####[facility] [address] [place] [id number]. Aissatou Vásquez RBC 4.26 106/ul Critically low 4.70-6.10 [facility] Comment on above: Performed By: #### C BC ####[facility] [address] [place] [id number]. Aissatou Vásquez WBC 11.4 103/ul Critically high 4.0-11.0 [facility] Comment on above: Performed By: #### C BC ####[facility] [address] [place], [place] [address]QjDr. Aissatou Vásquez CKMBon 07-02-2022 CK.MB [Mass/Vol] 80.91 ng/mL Critically high <=3.60 Th e [facility] Comment on above: Performed By: #### L IVER, BMP, HSTROPN #### [facility] [address] [place], [place] [address] Dr. Aissatou Vásquez CPKon 07-02-2022 CK [Catalytic activity/Vol] 915 U/L Critically high 39-308 [facility] Comment on above: Performed By: #### L IVER, BMP, HSTROPN #### [facility] [address] [place], [place] [address] Dr. Aissatou Vásquez ECHOCARDIO M/2D COMPLETEon 1 09-02-2021 ECHOCARDIO M/2D COMPLETE Patient: LEANNA NELSON Exam Date: 07/02/2022 : 1940 Gender:M Ordering : SHAIKH Delphine RODRIGUEZ . Admission #: [id number] Family : DR PIPE HOPKINS . Order #: [id number] CLICK HERE TO VIEW EXAM ECHOCARDIOGRAM REPORT [...] Cameron M.D. on 07/08/2022 at 09:55 Normal [facility] MAGNESIUMon 07-02-2022 Magnesium [Mass/Vol] 1.9 mg/dL Normal 1.8-2.4 [facility] Comment on above: Performed By: #### L DHARA WAITE, HSTROPN #### [facility] [address] [address] [address] Aissatou Vásquez MYOGLOBINon 07-02-2022 SARAH 1312 ng/mL Critically high 16-96 [facility] Comment on above: Performed By: #### L DHARA WAITE, HSTROPN #### [facility] [address] [address] [address] Aissatou Vásquez PHOSPHORUSon 07-02-2022 Phosphate [Mass/Vol] 6.0 mg/dL Critically high 2.6-4.7 [facility] Comment on above: Performed By: #### L DHARA WAITE, HSTROPN #### [facility] [address] [address] [address] Aissatou Vásquez POINT OF CARE GLUCOSEon 06-06 Glucose [Mass/Vol] 78 mg/dL Normal 74-[address] [facility] Comment on above: Performed By: #### C ADAM #### [facility] [address] [address] [address] Aissatou Vásquez Glucose [Mass/Vol] 104 mg/dL Normal 74-[address] [facility] Comment on above: Performed By: #### P OCGLUC ####[facility] [address] [address]Dr. Aissatou Vásquez Glucose [Mass/Vol] 83 mg/dL Normal 74-[address] [facility] Comment on above: Performed By: #### L IVER, BMP, HSTROPN #### [facility] [address] [address] [address] Aissatou Vásquez Glucose [Mass/Vol] 100 mg/dL Normal 74-106 [facility] Comment on above: Performed By: #### C ADAM #### [facility] [address] [address] [address] Aissatou Vásquez Glucose [Mass/Vol] 73 mg/dL Critically low 74-106 [facility] Comment on above: Performed By: #### P OCGLUC ####[facility] [address] [address]Dr. Aissatou Vásquez PROF 14(COMP METB)on 022 Albumin [Mass/Vol] 3.3 g/dL Critically low 3.4-5.0 [facility] Comment on above: Performed By: #### L IVER, BMP, HSTROPN #### [facility] [address] [address] [address] Aissatou Vásquez Albumin/Globulin [Mass ratio] 1.0 {ratio} Normal [facility] Comment on above: Performed By: #### L IVER, BMP, HSTROPN #### [facility] [address] [address] [address] Aissatou Vásquez ALP [Catalytic activity/Vol] 114 U/L Normal 46-116 [facility] Comment on above: Performed By: #### L IVER, BMP, HSTROPN #### [facility] [address] [address] [address] Aissatou Vásquez ALT [Catalytic activity/Vol] 48 U/L Normal 16-63 [facility] Comment on above: Performed By: #### L IVER, BMP, HSTROPN #### [facility] [address] [address] [address] Aissatou Vásquez Anion gap [Moles/Vol] 17.3 mmol/L Normal [facility] Comment on above: Performed By: #### L IVER, BMP, HSTROPN #### [facility] [address] [place] [address] Dr. Aissatou Vásquez AST [Catalytic activity/Vol] 68 U/L Critically high 15-37 [facility] Comment on above: Performed By: #### L IVER, BMP, HSTROPN #### [facility] [address] [address] [address] Aissatou Vásquez Bilirubin [Mass/Vol] 0.5 mg/dL Normal 0.2-1.0 [facility] Comment on above: Performed By: #### L IVER, BMP, HSTROPN #### [facility] [address] [place] [address] Dr. Aissatou Vásquez Calcium [Mass/Vol] 8.9 mg/dL Normal 8.5-10.1 [facility] Comment on above: Performed By: #### L IVER, BMP, HSTROPN #### [facility] [address] [place] [address] Dr. Aissatou Vásquez Chloride [Moles/Vol] 109 mmol/L Critically high 98-107 [facility] Comment on above: Performed By: #### L IVER, BMP, HSTROPN #### [facility] [address] [address] [address] Aissatou Vásquez CO2 [Moles/Vol] 22.8 mmol/L Normal 21.0-32.0 [facility] Comment on above: Performed By: #### L IVER, BMP, HSTROPN #### [facility] [address] [place] [address] Dr. Aissatou Vásquez Creatinine [Mass/Vol] 1.89 mg/dL Critically high 0.70-1.30 [facility] Comment on above: Performed By: #### L IVER, BMP, HSTROPN #### [facility] [address] [place] [address] Dr. Aissatou Vásquez EGFR-AF MALAGASY 41 mL/min/1.73m2 Critically low >=60 [facility] Comment on above: Result Comment: Prev iously reported as: (blank) On 07/02/2022 05:50 By KD3 Performed By: #### L IVER, BMP, HSTROPN #### [facility] [address] [address] [address] Aissatou Vásquez EGFR-NON AF MALAGASY 34 mL/min/1.73m2 Critically low >=60 [facility] Comment on above: Result Comment: Prev iously reported as: (blank) On 07/02/2022 05:50 By KD3 Performed By: #### L IVER, BMP, HSTROPN #### [facility] [address] [address] [address] Aissatou Vásquez Globulin (S) [Mass/Vol] 3.4 g/dL Normal [facility] Comment on above: Performed By: #### L IVER, BMP, HSTROPN #### [facility] [address] [place] [address] Dr. Aissatou Vásquez Glucose [Mass/Vol] 86 mg/dL Normal 74-[address] [facility] Comment on above: Performed By: #### L IVER, BMP, HSTROPN #### [facility] [address] [place] [address] Dr. Aissatou Vásquez Potassium [Moles/Vol] 5.1 mmol/L Normal 3.5-5.1 [facility] Comment on above: Performed By: #### L IVER, BMP, HSTROPN #### [facility] [address] [address] [address] Aissatou Vásquez Protein [Mass/Vol] 6.7 g/dL Normal 6.4-8.[address] [facility] Comment on above: Performed By: #### L IVER, BMP, HSTROPN #### [facility] [address] [address] [address] Aissatou Vásquez Sodium [Moles/Vol] 144 mmol/L Normal 136-[address] [facility] Comment on above: Performed By: #### L IVER, BMP, HSTROPN #### [facility] [address] [place] [address] Dr. Aissatou Vásquez Urea nitrogen [Mass/Vol] 55.0 mg/dL Critically high 7.0-18.0 [facility] Comment on above: Performed By: #### L IVER, BMP, HSTROPN #### [facility] [address] [address] [address] Aissatou Vásquez Urea nitrogen/Creatinine [Mass ratio] 29.1 mg/mg Normal [facility] Comment on above: Performed By: #### L IVER, BMP, HSTROPN #### [facility] [address] [address] [address] Aissatou Vásquez PROTIMEon 07-02-2022 INR Coag (PPP) [Relative time] 1.13 {INR} Normal [facility] Comment on above: Performed By: #### L IVER, BMP, HSTROPN #### [facility] [address] [place] [address] Dr. Aissatou Vásquez INR GUIDELINES SEE BELOW Normal [facility] Comment on above: Result Comment: ELISABETH RED INR: 2.0 - 3.0 CONDITIONS NOT LISTED BELOW 2.5 - 3.5 FOR PROSTHETIC HEART VALVE REPLACEMENT 2.5 - 3.5 RECURRENT THROMBOSIS Performed By: #### L IVER, BMP, HSTROPN #### [facility] [address] [place] [address] Dr. Aissatou Vásquez PT Coag (PPP) [Time] 12.1 s Critically high 9.0-11.6 [facility] Comment on above: Performed By: #### L IVER, BMP, HSTROPN #### [facility] [address] [place] [address] Dr. Aissatou Vásquez BLOOD CULTURE ID PANELon A. baumannii Not detected Normal NOT DETECTED [facility] Comment on above: Performed By: #### C ADAM #### [facility] [address] [place] [address] Dr. Aissatou Vásquez Bacteriodes fragilis Not detected Normal NOT DETECTED [facility] Comment on above: Performed By: #### C ADAM #### [facility] [address] [place] [address] Dr. Aissatou Vásquez BCID CONTROLS PASSED Normal [facility] Comment on above: Performed By: #### C ADAM #### [facility] [address] [place] [address] Dr. Aissatou Vásquez BCIDBTHD BLOOD CULTURE BOTTLE INFORMATION [facility] Comment on above: Performed By: #### C ADAM #### [facility] [address] [place] [address] Dr. Aissatou Vásquez BCIDHD1 ANTIMICROBIAL RESISTANCE GENES [facility] Comment on above: Performed By: #### C ADAM #### [facility] [address] [place] [address] Dr. Aissatou Vásquez BCIDHD2 SEE BELOW [facility] Comment on above: Result Comment: Note : Antimicrobial resitance can occur via multiple mechanisms. A Not Detected result for the [employer] antomicrobial resistance gene assays does not indicate antimicrobial susceptibility. Subculturing is required for species identification and susceptibility testing of isolates. Performed By: #### C ADAM #### [facility] [address] [place] [address] Dr. Aissatou Vásquez BCIDHD3 Positive [facility] Comment on above: Performed By: #### C ADAM #### [facility] [address] [place] [address] Dr. Aissatou Vásquez BCIDHD4 Negative [facility] Comment on above: Performed By: #### C ADAM #### [facility] [address] [place] [address] Dr. Aissatou Vásquez BCIDHD5 YEAST Normal [facility] Comment on above: Performed By: #### C ADAM #### [facility] [address] [place] [address] Dr. Aissatou Vásquez Bottle Set: Set 2 [facility] Comment on above: Performed By: #### C ADAM #### [facility] [address] [place] [address] Dr. Aissatou Vásquez Bottle: Pediatric Normal [facility] Comment on above: Performed By: #### C ADAM #### [facility] [address] [place] [address] Dr. Aissatou Vásquez C. neoformans/gattii Not detected Normal NOT DETECTED [facility] Comment on above: Performed By: #### C ADAM #### [facility] [address] [place] [address] Dr. Aissatou Vásquez Soraya albicans Not detected Normal NOT DETECTED [facility] Comment on above: Performed By: #### C ADAM #### [facility] [address] [address] [address] Aissatou Vásquez Soraya auris Not detected Normal NOT DETECTED [facility] Comment on above: Performed By: #### C ADAM #### [facility] [address] [place] [address] Dr. Aissatou Vásquez Soraya glabrata Not detected Normal NOT DETECTED [facility] Comment on above: Performed By: #### C ADAM #### [facility] [address] [place] [address] Dr. Aissatou Vásquez Soraya Krusei Not detected Normal NOT DETECTED [facility] Comment on above: Performed By: #### C ADAM #### [facility] [address] [place] [address] Dr. Aissatou Vásquez Soraya Parapsilosis Not detected Normal NOT DETECTED [facility] Comment on above: Performed By: #### C ADAM #### [facility] [address] [place] [address] Dr. Aissatou Vásquez Soraya Tropicalis Not detected Normal NOT DETECTED [facility] Comment on above: Performed By: #### C ADAM #### [facility] [address] [place] [address] Dr. Aissatou Vásquez CTX-M Resistant Gene Not detected Normal NOT DETECTED [facility] Comment on above: Performed By: #### C ADAM #### [facility] [address] [place] [address] Dr. Aissatou Vásquez E. Cloacae complex Not detected Normal NOT DETECTED [facility] Comment on above: Performed By: #### C ADAM #### [facility] [address] [place] [address] Dr. Aissatou Vásquez E. faecalis Not detected Normal NOT DETECTED [facility] Comment on above: Performed By: #### C ADAM #### [facility] [address] [place] [address] Dr. Aissatou Vásquez E. faecium Not detected Normal NOT DETECTED [facility] Comment on above: Performed By: #### C ADAM #### [facility] [address] [place] [address] Dr. Aissatou Vásquez Enterobacteriaceae Detected Critically abnormal NOT DETECTED [facility] Comment on above: Performed By: #### C ADAM #### [facility] [address] [place] [address] Dr. Aissatou Vásquez Escherichia coli Not detected Normal NOT DETECTED [facility] Comment on above: Performed By: #### C ADAM #### [facility] [address] [place] [address] Dr. Aissatou Vásquez H. influenzae Not detected Normal NOT DETECTED [facility] Comment on above: Performed By: #### C ADAM #### [facility] [address] [place] [address] Dr. Aissatou Vásquez IMP Resistant Gene Not detected Normal NOT DETECTED [facility] Comment on above: Performed By: #### C ADAM #### [facility] [address] [place] [address] Dr. Aissatou Vásquez K. oxytoca Not detected Normal NOT DETECTED [facility] Comment on above: Performed By: #### C ADAM #### [facility] [address] [place] [address] Dr. Aissatou Vásquez K. pneumoniae Not detected Normal NOT DETECTED [facility] Comment on above: Performed By: #### C ADAM #### [facility] [address] [place] [address] Dr. Aissatou Vásquez Klebsiella aerogenes Not detected Normal NOT DETECTED [facility] Comment on above: Performed By: #### C ADAM #### [facility] [address] [place] [address] Dr. Aissatou Vásquez KPC Resistant Gene Not detected Normal NOT DETECTED [facility] Comment on above: Performed By: #### C ADAM #### [facility] [address] [place] [address] Dr. Aissatou Vásquez List. monocytogenes Not detected Normal NOT DETECTED [facility] Comment on above: Performed By: #### C ADAM #### [facility] [address] [place] [address] Dr. Aissatou Vásquez Mcr-1 Resistant Gene Not Applicable Normal NOT DETECTE D [facility] Comment on above: Performed By: #### C ADAM #### [facility] [address] [place] [address] Dr. Aissatou Vásquez mecA/C Not Applicable Normal NOT DETECTED [facility] Comment on above: Performed By: #### C ADAM #### [facility] [address] [place] [address] Dr. Aissatou Vásquez mecA/C MREJ Not Applicable Normal NOT DETECTED [facility] Comment on above: Performed By: #### C ADAM #### [facility] [address] [place] [address] Dr. Aissatou Vásquez N. meningitidis Not detected Normal NOT DETECTED [facility] Comment on above: Performed By: #### C ADAM #### [facility] [address] [place] [address] Dr. Aissatou Vásquez NDM Resistant Gene Not detected Normal NOT DETECTED [facility] Comment on above: Performed By: #### C ADAM #### [facility] [address] [place] [address] Dr. Aissatou Vásquez Oxa-48-like Not detected Normal NOT DETECTED [facility] Comment on above: Performed By: #### C ADAM #### [facility] [address] [place] [address] Dr. Aissatou Vásquez Proteus Not detected Normal NOT DETECTED [facility] Comment on above: Performed By: #### C ADAM #### [facility] [address] [place] [address] Dr. Aissatou Vásquez Pseud. aeruginosa Not detected Normal NOT DETECTED [facility] Comment on above: Performed By: #### C ADAM #### [facility] [address] [place] [address] Dr. Aissatou Vásquez S. maltophilia Not detected Normal NOT DETECTED [facility] Comment on above: Performed By: #### C ADAM #### [facility] [address] [place] [address] Dr. Aissatou Vásquez Salmonella Not detected Normal NOT DETECTED [facility] Comment on above: Performed By: #### C ADAM #### [facility] [address] [address] [address] Aissatou Vásquez Seratia marcescens Not detected Normal NOT DETECTED [facility] Comment on above: Performed By: #### C ADAM #### [facility] [address] [place] [address] Dr. Aissatou Vásquez Site: IV Normal [facility] Comment on above: Performed By: #### C ADAM #### [facility] [address] [place] [address] Dr. iAssatou Vásquez Staph. aureus Not detected Normal NOT DETECTED [facility] Comment on above: Performed By: #### C ADAM #### [facility] [address] [place] [address] Dr. Aissatou Vásquez Staph. epidermidis Not detected Normal NOT DETECTED [facility] Comment on above: Performed By: #### C ADAM #### [facility] [address] [place] [address] Dr. Aissatou Vásquez Staph. lugdunensis Not detected Normal NOT DETECTED [facility] Comment on above: Performed By: #### C ADAM #### [facility] [address] [place] [address] Dr. Aissatou Vásquez Staphylococcus Not detected Normal NOT DETECTED [facility] Comment on above: Performed By: #### C ADAM #### [facility] [address] [place] [address] Dr. Aissatou Vásquez Strep. agalactiae Not detected Normal NOT DETECTED [facility] Comment on above: Performed By: #### C ADAM #### [facility] [address] [place] [address] Dr. Aissatou Vásquez Strep. pneumoniae Not detected Normal NOT DETECTED [facility] Comment on above: Performed By: #### C ADAM #### [facility] [address] [place] [address] Dr. Aissatou Vásquez Strep. pyogenes Not detected Normal NOT DETECTED [facility] Comment on above: Performed By: #### C ADAM #### [facility] [address] [address] [address] Aissatou Vásquez Streptococcus Not detected Normal NOT DETECTED [facility] Comment on above: Performed By: #### C ADAM #### [facility] [address] [address] [address] Aissatou Vásquez Akila/B Resist. Gene Not Applicable Normal NOT DETECTED [facility] Comment on above: Performed By: #### C ADAM #### [facility] [address] [place] [address] Dr. Aissatou Vásquez VIM Resistant Gene Not detected Normal NOT DETECTED [facility] Comment on above: Performed By: #### C ADAM #### [facility] [address] [place] [address] Dr. Aissatou Vásquez CBC W MANUAL DIFFon 07-01-20 22 ATYPICAL LYMPH # Normal [facility] Comment on above: Performed By: #### C BCMAN ####[facility] [address] [place], [place] [address]Dr. Aissatou Vásquez ATYPICAL LYMPH % Normal [facility] Comment on above: Performed By: #### C BCMAN ####[facility] [address] [place], [place] [address]Dr. Aissatou Vásquez BAND # 0.4 103/ul Critically high 0.0-0.3 [facility] Comment on above: Performed By: #### C BCMAN ####[facility] [address] [address]Dr. Sheylan Vásquez BAND % 3 % Normal 0-5 [facility] Comment on above: Performed By: #### C BCMAN ####[facility] [address] [address]Dr. Aissatou Vásquez BASOM # 0.00 103/ul Normal 0.00-0.10 [facility] Comment on above: Performed By: #### C BCMAN ####[facility] [address] [place], [place] [address]Dr. Aissatou Vásquez BASOM % 0.0 % Critically low 0.2-2.0 [facility] Comment on above: Performed By: #### C BCMAN ####[facility] [address] [address]Dr. Aissatou Vásquez BLAST # Normal [facility] Comment on above: Performed By: #### C BCMAN ####[facility] [address] [id number]. Aissatou Vásquez BLAST % Normal [facility] Comment on above: Performed By: #### C BCMAN ####[facility] [address] [id number]. Aissatou Vásquez CORRECTED WBC Normal 4.0-11.0 [facility] Comment on above: Performed By: #### C BCMAN ####[facility] [address] [place], [place] [address]Dr. Aissatou Vásquez EOS # 0.12 103/ul Normal 0.00-0.70 [facility] Comment on above: Performed By: #### C BCMAN ####[facility] [address] [address]Dr. Aissatou Vásquez EOS% 1.0 % Normal 0.9-7.0 [facility] Comment on above: Performed By: #### C BCMAN ####[facility] [address] [place], [place] [address]Dr. Aissatou Vásquez HCT 46.0 % Normal 42.0-54.0 [facility] Comment on above: Performed By: #### C BCMAN ####[facility] [address] [address]Dr. Aissatou Vásquez HGB 14.6 g/dl Normal 14.0-18.0 [facility] Comment on above: Performed By: #### C BCMAN ####[facility] [address] [place], [place] [address]Dr. Aissatou Vásquez LYMPHM # 0.62 103/ul Critically low 1.20-3.80 [facility] Comment on above: Performed By: #### C BCMAN ####[facility] [address] [id number]. Aissatou Vásquez LYMPHM% 5.0 % Critically low 20.5-60.0 [facility] Comment on above: Performed By: #### C ABUNDIO ####[facility] [address] [id number]. Aissatou Vásquez MCH 29.9 pg Normal 25.9-34.0 [facility] Comment on above: Performed By: #### C ABUNDIO ####[facility] [address] [id number]. Aissatou Vásquez MCHC 31.7 g/dl Normal 29.9-35.2 [facility] Comment on above: Performed By: #### C ABUNDIO ####[facility] [address] [place], [place] [address]Dr. Aissatou Vásquez MCV 94.1 fL Critically high 80.0-94.0 [facility] Comment on above: Performed By: #### C ABUNDIO ####[facility] [address] [place], [place] [address]Dr. Aissatou Vásquez METAMYELOCYTE # Normal [facility] Comment on above: Performed By: #### C ABUNDIO ####[facility] [address] [place], [place] [address]Dr. Aissatou Vásquez METAMYELOCYTE % Normal [facility] Comment on above: Performed By: #### C ABUNDIO ####[facility] [address] [address]Dr. Aissatou Vásquez MONOM# 0.62 103/ul Normal 0.30-0.80 [facility] Comment on above: Performed By: #### C ABUNDIO ####[facility] [address] [id number]. Aissatou Vásquez MONOM% 5.0 % Normal 1.7-12.0 [facility] Comment on above: Performed By: #### C ABUNDIO ####[facility] [address] [address]Dr. Aissatou Vásquez MPV 10.4 fL Normal 9.5-13.5 [facility] Comment on above: Performed By: #### C BCRITCHIE ####[facility] [address] [place], [place] [address]Cy. Aissatou Vásquez MYELOCYTE # Normal [facility] Comment on above: Performed By: #### C BCMAN ####[facility] [address] [place], [place] [address]Ar. Aissatou Vásquez MYELOCYTE % Normal [facility] Comment on above: Performed By: #### C BCMAN ####[facility] [address] [place], [place] [address]Vg. Aissatou Vásquez NRBC Normal [facility] Comment on above: Performed By: #### C ABUNDIO ####[facility] [address] [id number]. Aissatou Vásquez PLT 171 103/ul Normal 150-450 [facility] Comment on above: Performed By: #### C ABUNDIO ####[facility] [address] [id number]. Aissatou Vásquez RBC 4.89 106/ul Normal 4.70-6.10 [facility] Comment on above: Performed By: #### C BCRITCHIE ####[facility] [address] [id number]. Aissatou Vásquez RDW 13.4 % Normal 11.0-15.0 [facility] Comment on above: Performed By: #### C BCRITCHIE ####[facility] [address] [id number]. Aissatou Vásquez SEG # 10.66 103/ul Critically high 1.40-6.50 [facility] Comment on above: Performed By: #### C BCRITCHIE ####[facility] [address] [place], [place] [address]Uv. Aissatou Vásquez SEG % 86.0 % Critically high 43.0-75.0 [facility] Comment on above: Performed By: #### C BCRITCHIE ####[facility] [address] [place], [place] [address]Vo. Aissatou Vásquez WBC 12.4 103/ul Critically high 4.0-11.0 [facility] Comment on above: Performed By: #### C ABUNDIO ####[facility] [address] [place], [place] [address]ZoDr. Aissatou Vásquez CPKon 07-01-2022 CK [Catalytic activity/Vol] 1646 U/L Critically high 39-308 [facility] Comment on above: Performed By: #### L IVER, BMP, HSTROPN #### [facility] [address] [place], [place] [address] [address] Vás[address] CSPINE WO CONon [...] KOKO ROMANO Date: 2022-07-01 19:22 Normal [facility] CT STROKE HEAD WOon 07-01-20 22 [...] BERNADETTE BEDOLLA Date: 2022-07-01 17:37 Normal [facility] CULTURE BLOODon 07-01-2022 Microscopic examination of blood, culture Culture Observations: NO GROWTH AT 5 DAYS. Normal [facility] Comment on above: Performed By: #### B LDCX1 ####[facility] [address] [address]Dr. Aissatou Fahad [facility]06 SARS-CoV-2 (COVID-19) RNA HALLE+probe Ql (Unsp spec) Not detected Normal NOT DETECTED [facility] Comment on above: Result Comment: When [...] for this test is supported by the Audio Visual Specialist of Health and Human Service's declaration that [...] By: #### L CHANNINGER, BMP, HSTROPN #### [facility] [address] [place] [address] Dr. Aissatou Vásquez DRUG SCREEN RAPID (URINE)on 07-01-2022 AMP Negative Normal NEGATIVE [facility] Comment on above: Performed By: #### C ADAM #### [facility] [address] [address] [address] Aissatou Vásquez BAR Negative Normal NEGATIVE [facility] Comment on above: Performed By: #### C ADAM #### [facility] [address] [place] [address] Dr. Aissatou Vásquez BUP Negative Normal NEGATIVE [facility] Comment on above: Performed By: #### C ADAM #### [facility] [address] [place] [address] Dr. Aissatou Vásquez BZO Negative Normal NEGATIVE [facility] Comment on above: Performed By: #### C ADAM #### [facility] [address] [address] [address] Aissatou Vásquez MARYJANE Negative Normal NEGATIVE [facility] Comment on above: Performed By: #### C ADAM #### [facility] [address] [place] [address] Dr. Aissatou Vásquez CUT-OFFS SEE BELOW Normal [facility] Comment on above: Result Comment: AMP [...] ng/mL Performed By: #### C ADAM #### [facility] [address] [place] [address] Dr. Aissatou Vásquez DRUG CUT HEADER DRUG CLASS TEST SYSTEM CUT-OFF CONCENTRATIONS ARE FOLLOWS: Normal [facility] Comment on above: Performed By: #### C ADAM #### [facility] [address] [place] [address] Dr. Aissatou Vásquez mAMP Negative Normal NEGATIVE [facility] Comment on above: Performed By: #### C ADAM #### [facility] [address] [address] [address] Aissatou Vásquez MTD Negative Normal NEGATIVE [facility] Comment on above: Performed By: #### C ADAM #### [facility] [address] [place] [address] Dr. Aissatou Vásquez OPI Negative Normal NEGATIVE [facility] Comment on above: Performed By: #### C ADAM #### [facility] [address] [place] [address] Dr. Aissatou Vásquez OXY Negative Normal NEGATIVE [facility] Comment on above: Performed By: #### C ADAM #### [facility] [address] [address] [address] Aissatou Vásquez PCP Negative Normal NEGATIVE [facility] Comment on above: Performed By: #### C ADAM #### [facility] [address] [place] [address] Dr. Aissatou Vásquez PPX Negative Normal NEGATIVE [facility] Comment on above: Performed By: #### C ADAM #### [facility] [address] [place] [address] Dr. Aissatou Vásquez TCA Negative Normal NEGATIVE [facility] Comment on above: Performed By: #### C ADAM #### [facility] [address] [place] [address] Dr. Aissatou Vásquez THC Negative Normal NEGATIVE [facility] Comment on above: Performed By: #### C ADAM #### [facility] [address] [place] [address] Dr. Aissatou Vásquez ER URINE PROFILEon 12-27-202 2 Bilirubin Ql (U) Negative Normal NEGATIVE [facility] Comment on above: Performed By: #### C ADAM #### [facility] [address] [place] [address] Dr. Aissatou Vásquez Clarity (U) CLEAR Normal CLEAR [facility] Comment on above: Performed By: #### C ADAM #### [facility] [address] [place] [address] Dr. Aissatou Vásquez Color (U) YELLOW Normal YELLOW [facility] Comment on above: Performed By: #### C ADAM #### [facility] [address] [place] [address] Dr. Aissatou BECKWITH A micrscopic examination will be performed if indicated. Normal [facility] Comment on above: Performed By: #### C ADAM #### [facility] [address] [place] [address] Dr. Aissatou Vásquez Glucose Ql (U) Negative Normal NEGATIVE [facility] Comment on above: Performed By: #### C ADAM #### [facility] [address] [place] [address] Dr. Aissatou Vsáquez Hemoglobin Ql (U) MODERATE Abnormal NEGATIVE [facility] Comment on above: Performed By: #### C ADAM #### [facility] [address] [place] [address] Dr. Aissatou Vásquez Ketones Ql (U) 15 mg/dl Abnormal NEGATIVE [facility] Comment on above: Performed By: #### C ADAM #### [facility] [address] [place] [address] Dr. Aissatou Vásquez LEUKOCYTES Negative Normal NEGATIVE [facility] Comment on above: Performed By: #### C ADAM #### [facility] [address] [place] [address] Dr. Aissatou Vásquez Nitrite Ql (U) Negative Normal NEGATIVE [facility] Comment on above: Performed By: #### C ADAM #### [facility] [address] [place] [address] Dr. Aissatou Vásquez pH (U) 5.0 [pH] Normal 5-9 [facility] Comment on above: Performed By: #### C ADAM #### [facility] [address] [place] [address] Dr. Aissatou Vásquez SPEC GRAVITY 1.025 Normal 1.005-<=1.025 [facility] Comment on above: Performed By: #### C ADAM #### [facility] [address] [place] [address] Dr. Aissatou Vásquez UA PROTEIN TRACE Normal NEGATIVE/ TRACE [facility] Comment on above: Performed By: #### C ADAM #### [facility] [address] [place] [address] Dr. Aissatou Vásquez UR MICRO IND INDICATED Normal [facility] Comment on above: Performed By: #### C ADAM #### [facility] [address] [place] [address] Dr. Aissatou Vásquez Urobilinogen Qn (U) 0.2 {Ilene'U}/dL Normal 0.2 - 1. 0 [facility] Comment on above: Performed By: #### C ADAM #### [facility] [address] [place] [address] Dr. Aissatou Vásquez LIVER PROFILEon 07-01-2022 Albumin [Mass/Vol] 3.7 g/dL Normal 3.4-5.0 [facility] Comment on above: Performed By: #### L IVER, BMP, HSTROPN #### [facility] [address] [place] [address] Dr. Aissatou Vásquez Albumin/Globulin [Mass ratio] 0.9 {ratio} Normal [facility] Comment on above: Performed By: #### L IVER, BMP, HSTROPN #### [facility] [address] [place] [address] Dr. Aissatou Vásquez ALP [Catalytic activity/Vol] 143 U/L Critically high 46-116 [facility] Comment on above: Performed By: #### L IVER, BMP, HSTROPN #### [facility] [address] [place] [address] Dr. Aissatou Vásquez ALT [Catalytic activity/Vol] 56 U/L Normal 16-63 [facility] Comment on above: Performed By: #### L IVER, BMP, HSTROPN #### [facility] [address] [address] [address] Aissatou Vásquez AST [Catalytic activity/Vol] 87 U/L Critically high 15-37 [facility] Comment on above: Performed By: #### L IVER, BMP, HSTROPN #### [facility] [address] [place] [address] Dr. Aissatou Vásquez BILI, CONJUGATED 0.2 mg/dL Normal 0.0-0.2 [facility] Comment on above: Performed By: #### L IVER, BMP, HSTROPN #### [facility] [address] [place] [address] Dr. Aissatou Vásquez Bilirubin [Mass/Vol] 0.6 mg/dL Normal 0.2-1.0 [facility] Comment on above: Performed By: #### L IVER, BMP, HSTROPN #### [facility] [address] [place] [address] Dr. Aissatou Vásquez Globulin (S) [Mass/Vol] 3.9 g/dL Normal [facility] Comment on above: Performed By: #### L IVER, BMP, HSTROPN #### [facility] [address] [place] [address] Dr. Aissatou Vásquez Protein [Mass/Vol] 7.6 g/dL Normal 6.4-8.2 [facility] Comment on above: Performed By: #### L IVER, BMP, HSTROPN #### [facility] [address] [place] [address] Dr. Aissatou Vásquez MYOGLOBINon 07-01-2022 SARAH 2042 ng/mL Critically high 16-96 [facility] Comment on above: Performed By: #### L IVER, BMP, HSTROPN #### [facility] [address] [place] [address] Dr. Aissatou Vásquez PROF CHEM 8 (BAS METB)on Anion gap [Moles/Vol] 18.5 mmol/L Normal [facility] Comment on above: Performed By: #### L IVER, BMP, HSTROPN #### [facility] [address] [address] [address] Aissatou Vásquez Calcium [Mass/Vol] 9.8 mg/dL Normal 8.5-10.1 [facility] Comment on above: Performed By: #### L IVER, BMP, HSTROPN #### [facility] [address] [address] [address] Aissatou Vásquez Chloride [Moles/Vol] 104 mmol/L Normal 98-107 [facility] Comment on above: Performed By: #### L IVER, BMP, HSTROPN #### [facility] [address] [place] [address] Dr. Aissatou Vásquez CO2 [Moles/Vol] 24.3 mmol/L Normal 21.0-32.0 [facility] Comment on above: Performed By: #### L IVER, BMP, HSTROPN #### [facility] [address] [address] [address] Aissatou Vásquez Creatinine [Mass/Vol] 1.74 mg/dL Critically high 0.70-1.30 [facility] Comment on above: Performed By: #### L IVER, BMP, HSTROPN #### [facility] [address] [place] [address] Dr. Aissatou Vásquez EGFR-AF MALAGASY 46 mL/min/1.73m2 Critically low >=60 [facility] Comment on above: Performed By: #### L IVER, BMP, HSTROPN #### [facility] [address] [place] [address] Dr. Aissatou Vásquez EGFR-NON AF MALAGASY 38 mL/min/1.73m2 Critically low >=60 [facility] [facility] Comment on above: Performed By: #### L IVER, BMP, HSTROPN #### [facility] [address] [place] [address] Dr. Aissatou Vásquez Glucose [Mass/Vol] 115 mg/dL Critically high 74-106 [facility] Comment on above: Performed By: #### L IVER, BMP, HSTROPN #### [facility] [address] [address] [address] Aissatou Vásquez Potassium [Moles/Vol] 4.8 mmol/L Normal 3.5-5.1 [facility] Comment on above: Performed By: #### L IVER, BMP, HSTROPN #### [facility] [address] [address] [address] Aissatou Vásquez Sodium [Moles/Vol] 142 mmol/L Normal 136-145 [facility] Comment on above: Performed By: #### L IVER, BMP, HSTROPN #### [facility] [address] [address] [address] Aissatou Vásquez Urea nitrogen [Mass/Vol] 54.0 mg/dL Critically high 7.0-18.0 [facility] Comment on above: Performed By: #### L IVER, BMP, HSTROPN #### [facility] [address] [address] [address] Aissatou Vásquez Urea nitrogen/Creatinine [Mass ratio] 31.0 mg/mg Normal [facility] Comment on above: Performed By: #### L IVER, BMP, HSTROPN #### [facility] [address] [address] [address] Aissatou Vásquez TROPONIN, HIGH SENSITIVITYon 07-01-2022 HSTROP 102.3 pg/mL Critically high 4.0-76.1 [facility] Comment on above: Result Comment: CUT- OFF POINTS HAVE BEEN ESTABLISHED BASED ON THE FOURTH UNIVERSAL DEFINITIONS OF MYOCARDIAL INFARCTION. THE UPPER REFERENCE LIMIT (URL) OF TROPONIN, DEFINED THE 99TH PERCENTILE OF cTnI DISTRIBUTION IN A REFERENCE POPULATION, HAS BEEN CONFIRMED THE DECISION THRESHOLD FOR [place] DIAGNOSIS. Performed By: #### H STROPN ####[facility] [address] [address]Dr. Aissatou Vásquez HSTROP 132.4 pg/mL Critically high 4.0-76.1 [facility] Comment on above: Result Comment: CUT- OFF POINTS HAVE BEEN ESTABLISHED BASED ON THE FOURTH UNIVERSAL DEFINITIONS OF MYOCARDIAL INFARCTION. THE UPPER REFERENCE LIMIT (URL) OF TROPONIN, DEFINED THE 99TH PERCENTILE OF cTnI DISTRIBUTION IN A REFERENCE POPULATION, HAS BEEN CONFIRMED THE DECISION THRESHOLD FOR [place] DIAGNOSIS. Performed By: #### L DHARA WAITE, HSTROPN #### [facility] [address] [place] [address] Dr. Aissatou Vásquez TSHon 07-01-2022 TSH 7.840 uIU/mL Critically high 0.358-3.[address] [facility] Comment on above: Performed By: #### L DHARA WAITE, HSTROPN #### [facility] [address] [place] [address] Dr. Aissatou Vásquez URINE MICROSCOPIC ONLYon BACTERIA NONE SEEN Normal NONE SEEN [facility] Comment on above: Performed By: #### C ADAM #### [facility] [address] [place] [address] Dr. Aissatou Vásquez Bacteria identified Cx Nom (U) NOT INDICATED Normal [facility] Comment on above: Performed By: #### C ADAM #### [facility] [address] [place] [address] Dr. Aissatou Vásquez CAST NONE SEEN Normal NONE SEEN [facility] Comment on above: Performed By: #### C ADAM #### [facility] [address] [place] [address] Dr. Aissatou Vásquez Crystals LM Nom (Urine sed) NONE SEEN Normal NONE SEEN [facility] Comment on above: Performed By: #### C ADAM #### [facility] [address] [place] [address] Dr. Aissatou Vásquez Epithelial cells LM Ql (Urine sed) RARE Normal NONE SEEN /RARE [facility] Comment on above: Performed By: #### C ADAM #### [facility] [address] [place] [address] Dr. Aissatou Vásquez MUCOUS TRACE Abnormal NONE SEEN [facility] Comment on above: Performed By: #### C ADAM #### [facility] [address] [place] [address] Dr. Aissatou Vásquez RBC 2-5 Abnormal 0-2 [facility] Comment on above: Performed By: #### C ADAM #### [facility] [address] [place] [address] Dr. Aissatou Vásquez WBC 2-5 Abnormal NONE SEEN [facility] Comment on above: Performed By: #### C ADAM #### [facility] [address] [place] [address] Dr. Aissatou Vásquez XR CHEST 1 Von [...] Jhony TOTH Date: 2022-07-01 18:01 Normal [facility] AMMONIAon 06-05-2022 Ammonia (P) [Mass/Vol] ug/dL Critically low [facility] Comment on above: Performed By: #### L IVER, BMP, HSTROPN #### [facility] [address] [place] [address] Dr. Aissatou Vásquez BNPon 06-05-2022 Natriuretic peptide B (Bld) [Mass/Vol] 672.0 pg/mL Normal <=1,800.0 [facility] Comment on above: Performed By: #### T SH, CMP, FT3, BNP, T4, LIPID #### [facility] [address] [address] [address] Aissatou Vásquez CBC AUTO DIFFon 06-05-2022 BASO # 0.0 103/ul Normal 0.0-0.1 [facility] Comment on above: Performed By: #### C ADAM #### [facility] [address] [place] [address] Dr. Aissatou Vásquez Basophils/100 WBC (Bld) 0.6 % Normal 0.2-2.0 [facility] Comment on above: Performed By: #### C ADAM #### [facility] [address] [place] [address] Dr. Aissatou Vásquez EO # 0.0 103/ul Normal 0.0-0.7 [facility] Comment on above: Performed By: #### C ADAM #### [facility] [address] [place] [address] Dr. Aissatou Vásquez Eosinophils/100 WBC (Bld) 0.6 % Critically low 0.9-7.0 [facility] Comment on above: Performed By: #### C ADAM #### [facility] [address] [place] [address] Dr. Aissatou Vásquez Erythrocyte distribution width (RBC) [Ratio] 13.7 % Normal 11.0-15.0 [facility] Comment on above: Performed By: #### C ADAM #### [facility] [address] [place] [address] Dr. Aissatou Vásquez Hematocrit (Bld) [Volume fraction] 40.7 % Critically low 42.0-54.0 [facility] Comment on above: Performed By: #### C ADAM #### [facility] [address] [place] [address] Dr. Aissatou Vásquez Hemoglobin (Bld) [Mass/Vol] 12.8 g/dL Critically low 14.0-18.0 [facility] Comment on above: Performed By: #### C ADAM #### [facility] [address] [place] [address] Dr. Aissatou Vásquez IG # 0.01 10e3/ul Normal 0.00-0.03 [facility] Comment on above: Performed By: #### C ADAM #### [facility] [address] [place] [address] Dr. Aissatou Vásquez IG % 0.2 % Normal 0.0-0.5 [facility] Comment on above: Performed By: #### C ADAM #### [facility] [address] [place] [address] Dr. Aissatou Vásquez LYMPH # 1.7 103/ul Normal 1.2-3.8 [facility] Comment on above: Performed By: #### C ADAM #### [facility] [address] [place] [address] Dr. Aissatou Vásquez Lymphocytes/100 WBC (Bld) 27.5 % Normal 20.5-60.0 [facility] Comment on above: Performed By: #### C ADAM #### [facility] [address] [place] [address] Dr. Aissatou Vásquez MANUAL DIFF REQ NO Normal [facility] Comment on above: Performed By: #### C ADAM #### [facility] [address] [place] [address] Dr. Aissatou Vásquez MCH (RBC) [Entitic mass] 30.3 pg Normal 25.9-34.0 [facility] Comment on above: Performed By: #### C ADAM #### [facility] [address] [place] [address] Dr. Aissatou Vásquez MCHC (RBC) [Mass/Vol] 31.4 g/dL Normal 29.9-35.2 [facility] Comment on above: Performed By: #### C ADAM #### [facility] [address] [place] [address] Dr. Aissatou Vásquez MCV (RBC) [Entitic vol] 96.2 fL Critically high 80.0-94.0 [facility] Comment on above: Performed By: #### C ADAM #### [facility] [address] [place] [address] Dr. Aissatou Vásquez MONO # 0.6 103/ul Normal 0.3-0.8 [facility] Comment on above: Performed By: #### C ADAM #### [facility] [address] [place] [address] Dr. Aissatou Vásquez Monocytes/100 WBC (Bld) 9.9 % Normal 1.7-12.0 [facility] Comment on above: Performed By: #### C ADAM #### [facility] [address] [place] [address] Dr. Aissatou Vásquez NEUT # 3.8 103/ul Normal 1.4-6.5 [facility] Comment on above: Performed By: #### C ADAM #### [facility] [address] [address] [address] Aissatou Vásquez Neutrophils/100 WBC (Bld) 61.2 % Normal 43.0-75.0 [facility] Comment on above: Performed By: #### C ADAM #### [facility] [address] [place] [address] Dr. Aissatou Vásquez Platelet mean volume (Bld) [Entitic vol] 9.3 fL Critically low 9.5-13.5 [facility] Comment on above: Performed By: #### C ADAM #### [facility] [address] [place] [address] Dr. Aissatou Vásquez PLT 218 103/ul Normal 150-450 [facility] Comment on above: Performed By: #### C ADAM #### [facility] [address] [place] [address] Dr. Aissatou Vásquez RBC 4.23 106/ul Critically low 4.70-6.10 [facility] Comment on above: Performed By: #### C ADAM #### [facility] [address] [place] [address] Dr. Aissatou Vásquez WBC 6.3 103/ul Normal 4.0-11.0 [facility] Comment on above: Performed By: #### C ADAM #### [facility] [address] [place] [address] Dr. Aissatou Vásquez FREE T3on 06-05-2022 FREE T3 1.80 pg/mlL Critically low 2.18-3.98 [facility] Comment on above: Performed By: #### T SH, CMP, FT3, BNP, T4, LIPID #### [facility] [address] [place] [address] Dr. Aissatou Vásquez GLYCOHEMOGLOBIN A1Con 2021 ADA RECOMMENDATION SEE BELOW Normal [facility] Comment on above: Result Comment: ADA RECOMMENDED LIMIT 4.0 - 6.0 ADA THERAPEUTIC TARGET < 7.0 ACTION SUGGESTED > 7.0 Performed By: #### L IVER, BMP, HSTROPN #### [facility] [address] [place] [address] Dr. Aissatou Vásquez Glucose [Mass/Vol] 117 mg/dL Normal [facility] Comment on above: Performed By: #### L IVER, BMP, HSTROPN #### [facility] [address] [address] [address] Aissatou Vásquez HbA1c (Bld) [Mass fraction] 5.7 % Normal 4.5-6.2 [facility] Comment on above: Performed By: #### L IVER, BMP, HSTROPN #### [facility] [address] [address] [address] Aissatou Vásquez IRONon 06-05-2022 Iron [Mass/Vol] 76.0 ug/dL Normal 65.0-175.0 [facility] Comment on above: Performed By: #### P SASC, VITAD, IRON, B12FOL ####[facility] [address] [address]DrBud Vásquez LIPID PROFILEon 06-05-2022 CHOL-HDL RATIO NORM SEE BELOW Normal [facility] Comment on above: Result Comment: 3.3 - 4.4 LOW RISK 4.4 - 7.1 AVERAGE RISK 7.1 - 11.0 MODERATE RISK >11.0 HIGH RISK Performed By: #### T SH, CMP, FT3, BNP, T4, LIPID ####[facility] [address] [address]DrBud Vásquez Cholesterol [Mass/Vol] 133 mg/dL Normal <=200 [facility] Comment on above: Performed By: #### T SH, CMP, FT3, BNP, T4, LIPID ####[facility] [address] [address]Dr. Aissatou Vásquez Cholesterol in HDL [Mass/Vol] 79 mg/dL Critically high 40-60 [facility] Comment on above: Performed By: #### T SH, CMP, FT3, BNP, T4, LIPID ####[facility] [address] [address]DrBud Vásquez Cholesterol in LDL [Mass/Vol] 43.6 mg/dL Normal [facility] Comment on above: Performed By: #### T SH, CMP, FT3, BNP, T4, LIPID ####[facility] [address] [place], [place] [address]Em. Aissatou Vásquez Cholesterol.total/Cho lesterol in HDL [Mass ratio] 1.7 {ratio} Normal [facility] Comment on above: Performed By: #### T SH, CMP, FT3, BNP, T4, LIPID ####[facility] [address] [place], [place] [address]Ws. Aissatou Vásquez HDL NORMAL > or = 60 mg/dl - LO W CARDIOVASCULAR RISK <40 mg/dl - HIGH CARDIOVASCULAR RISK Normal [facility] Comment on above: Performed By: #### T SH, CMP, FT3, BNP, T4, LIPID ####[facility] [address] [id number]. Aissatou Vásquez LDL CALC NORMAL SEE BELOW Normal [facility] Comment on above: Result Comment: <100 mg/dl OPTIMAL 100 - 129 mg/dl NEAR OR ABOVE OPTIMAL 130 - 159 mg/dl BORDERLINE HIGH 160 - 189 mg/dl HIGH >190 mg/dl VERY HIGH Performed By: #### T SH, CMP, FT3, BNP, T4, LIPID ####[facility] [address] [id number]. Aissatou Vásquez Triglyceride [Mass/Vol] 52 mg/dL Normal <=150 [facility] Comment on above: Performed By: #### T SH, CMP, FT3, BNP, T4, LIPID ####[facility] [address] [id number]. Aissatou Vásquez VLDL CALC 10.4 mg/dL Normal [facility] Comment on above: Performed By: #### T SH, CMP, FT3, BNP, T4, LIPID ####[facility] [address] [id number]. Aissatou Vásquez PROF 14(COMP METB)on 022 Albumin [Mass/Vol] 4.0 g/dL Normal 3.4-5.0 [facility] Comment on above: Performed By: #### T SH, CMP, FT3, BNP, T4, LIPID ####[facility] [address] [address]Dr. Aissatou Vásquez Albumin/Globulin [Mass ratio] 1.1 {ratio} Normal [facility] Comment on above: Performed By: #### T SH, CMP, FT3, BNP, T4, LIPID ####[facility] [address] [address]Dr. Aissatou Vásquez ALP [Catalytic activity/Vol] 137 U/L Critically high 46-116 [facility] Comment on above: Performed By: #### T SH, CMP, FT3, BNP, T4, LIPID ####[facility] [address] [address]Dr. Aissatou Vásquez ALT [Catalytic activity/Vol] 18 U/L Normal 16-63 [facility] Comment on above: Performed By: #### T SH, CMP, FT3, BNP, T4, LIPID ####[facility] [address] [address]Dr. Sheysarah Vásquez Anion gap [Moles/Vol] 11.1 mmol/L Normal [facility] Comment on above: Performed By: #### T SH, CMP, FT3, BNP, T4, LIPID ####[facility] [address] [address]Dr. Aissatou Vásquez AST [Catalytic activity/Vol] 9 U/L Critically low 15-37 [facility] Comment on above: Performed By: #### T SH, CMP, FT3, BNP, T4, LIPID ####[facility] [address] [address]Dr. Aissatou Vásquez Bilirubin [Mass/Vol] 0.3 mg/dL Normal 0.2-1.0 [facility] Comment on above: Performed By: #### T SH, CMP, FT3, BNP, T4, LIPID ####[facility] [address] [place], [place] [address]Dr. Sheysarah Vásquez Calcium [Mass/Vol] 9.4 mg/dL Normal 8.5-10.1 [facility] Comment on above: Performed By: #### T SH, CMP, FT3, BNP, T4, LIPID ####[facility] [address] [address]Dr. Aissatou Vásquez Chloride [Moles/Vol] 102 mmol/L Normal 98-107 [facility] Comment on above: Performed By: #### T SH, CMP, FT3, BNP, T4, LIPID ####[facility] [address] [address]Dr. Aissatou Vásquez CO2 [Moles/Vol] 29.7 mmol/L Normal 21.0-32.0 [facility] Comment on above: Performed By: #### T SH, CMP, FT3, BNP, T4, LIPID ####[facility] [address] [place], [place] [address]Dr. Aissatou Vásquez Creatinine [Mass/Vol] 1.62 mg/dL Critically high 0.70-1.30 [facility] Comment on above: Performed By: #### T SH, CMP, FT3, BNP, T4, LIPID ####[facility] [address] [place], [place] [address]Dr. Aissatou Vásquez EGFR-AF MALAGASY 50 mL/min/1.73m2 Critically low >=60 [facility] Comment on above: Performed By: #### T SH, CMP, FT3, BNP, T4, LIPID ####[facility] [address] [place], [place] [address]Dr. Aissatou Vásquez EGFR-NON AF MALAGASY 41 mL/min/1.73m2 Critically low >=60 [facility] Comment on above: Performed By: #### T SH, CMP, FT3, BNP, T4, LIPID ####[facility] [address] [place], [place] [address]Dr. Aissatou Vásquez Globulin (S) [Mass/Vol] 3.8 g/dL Normal [facility] Comment on above: Performed By: #### T SH, CMP, FT3, BNP, T4, LIPID ####[facility] [address] [place], [place] [address]Dr. Aissatou Vásquez Glucose [Mass/Vol] 86 mg/dL Normal 74-[address] [facility] Comment on above: Performed By: #### T SH, CMP, FT3, BNP, T4, LIPID ####[facility] [address] [address]Dr. Aissatou Vásquez Potassium [Moles/Vol] 4.8 mmol/L Normal 3.5-5.1 [facility] Comment on above: Performed By: #### T SH, CMP, FT3, BNP, T4, LIPID ####[facility] [address] [address]Dr. Aissatou Vásquez Protein [Mass/Vol] 7.8 g/dL Normal 6.4-8.[address] [facility] Comment on above: Performed By: #### T SH, CMP, FT3, BNP, T4, LIPID ####[facility] [address] [address]Dr. Aissatou Vásquez Sodium [Moles/Vol] 138 mmol/L Normal 136-[address] [facility] Comment on above: Performed By: #### T SH, CMP, FT3, BNP, T4, LIPID ####[facility] [address] [address]Dr. Aissatou Vásquez Urea nitrogen [Mass/Vol] 41.0 mg/dL Critically high 7.0-18.0 [facility] Comment on above: Performed By: #### T SH, CMP, FT3, BNP, T4, LIPID ####[facility] [address] [address]Dr. Aissatou Vásquez Urea nitrogen/Creatinine [Mass ratio] 25.3 mg/mg Normal [facility] Comment on above: Performed By: #### T SH, CMP, FT3, BNP, T4, LIPID ####[facility] [address] [address]Dr. Aissatou Vásquez T4on 06-05-2022 T4 [Mass/Vol] 9.70 ug/dL Normal 4.50-12.10 [facility] Comment on above: Performed By: #### T SH, CMP, FT3, BNP, T4, LIPID #### [facility] [address] [address] [address] Aissatou Vásquez TSHon 06-05-2022 TSH 2.525 uIU/mL Normal 0.358-3.740 [facility] Comment on above: Performed By: #### T SH, CMP, FT3, BNP, T4, LIPID ####[facility] [address] [id number]. Aissatou Vásquez VIT B12 AND FOLATEon 022 Cobalamin (Vitamin B12) [Mass/Vol] 1004.0 pg/mL Critically high 193.0-986.0 [facility] Comment on above: Performed By: #### P SASC, VITAD, IRON, B12FOL ####[facility] [address] [id number]. Aissatou Vásquez FOLATE 6.10 ng/mL Critically low 8.60-58.90 [facility] Comment on above: Performed By: #### P SASC, VITAD, IRON, B12FOL ####[facility] [address] [address]Dr. iAssatou Vsáquez VITAMIN D 25 OHon 06-05-2022 VIT D 25-OH 31.8 ng/mL Normal [facility] Comment on above: Performed By: #### P SASC, VITAD, IRON, B12FOL ####[facility] [address] [address]Dr. Aissatou Vásquez VIT D RANGES SEE BELOW Normal [facility] Comment on above: Result Comment: <20 ng/mL Vit D deficient 20 - <30 ng/mL Vit D insufficient 30 - 100 ng/mL Vit D sufficient >100 ng/mL Potential Toxicity Performed By: #### P SASC, VITAD, IRON, B12FOL ####[facility] [address] [id number]. Aissatou Vásquez Coding Summary.on 01-23-2017 Coding Summary. CODING DATE: 01/23/2017 FINAL [facility] STATUS: Home (Routine DC) PAYOR: Medicare [...] [place] Date Saved: 01/23/2017 10:07 am Normal [facility] Creatinineon 01-22-2017 Creatinine 1.0 mg/dL Normal 0.5-1.3 [facility] Comment on above: Performed By: #### 2 [id number], [id number] ####[facility] [address] [place] [address] eGFRon 01-22-2017 eGFR (black) mL/min/{1.73_m2} Normal >=59 [facility] Comment on above: Order Comment: Order added by Discern Expert. Result Comment: eGFR is race adjusted. AA=. Performed By: #### 2 [id number], [id number] ####[id number] [place] [address] eGFR (non-black) mL/min/{1.73_m2} Normal >=59 [facility] Comment on above: Order Comment: Order added by Discern Expert. 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 to generate a timely document that accurately reflects the content of the visit, no guarantee can be provided that every grammatical or spelling mistake has been or will be identified or corrected. Thank you for your understanding. documented in this encounter [facility] 05-30-2024 Note [place] [facility] [...] (premature atrial contraction) Coronary artery disease involving [place] coronary artery of [place] heart without angina pectoris Hx of CABG [...] shortness of breath. He lives in a [facility]. His blood pressure is elevated today. Review [...] , Rfl: cholecalciferol (Vitamin D-3) 50 MCG (1999) tablet, Take 2,000 Units by mouth., Disp: , Rfl: hydroCHLOROthiazide (HYDRODiuril) 25 mg tablet, Take 25 mg by mouth in the morning., Disp: , Rfl: lev (more content not included)... [facility] 06-24-2023 Note [place] [facility] - [facility] Dov Nelson is a 82 y.o. year old male patient being seen for 6 mo follow up CAD, hypertension, chronic diastolic heart failure, and carotid artery stenosis. Had routine labs in Mar 2023. Doing well from cardiac standpoint. No recurrent syncope. Patient Active Problem List Diagnosis Chronic diastolic heart failure (CMS/HCC) PAC (premature atrial contraction) Coronary artery disease involving [place] coronary artery of [place] heart without angina pectoris Hx of CABG [...] multivitamin (more content not included)... [facility] 03-23-2023 Note HNO ID: [id number] Author: Jodi Banerjee, DO Service: ? Author Type: Physician Type: Progress Notes Filed: 03/23/2023 2:41 PM Note Text: [facility] [place] Follow-up visit March 23, 2023 HPI: Overall [...] encounter he has moved and low lives [facility]. He states he does not [...] mainly his brother. He has seen by planning specialist in 01/2023 with suggestion that he get a hearing aide but he refuses. After his last encounter he has followed up with cardiology concerning his heart rate that was auscultated on last encounter. They checked his heart rhythm and thought it was appropriate. This was as via physician in [place]. They deny other changes to his health and/or medications except for the above since our last encounter. PAST MEDICAL HISTORY Diagnosis Date Arthritis Carotid stenosis Coronary artery disease Coronary atherosclerosis of unspecified type of vessel, [place] or graft 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 Dyslipidemia Hypertension Hypertension Hypothyroid Lumbar disc disease Unspecified hypothyroidism Hypothyroidism PAST SURGICAL HISTORY Procedure Laterality Date PAST SURGICAL HISTORY OF CABG times 6 left internal thoracic artery to the eej-ov-qjpcng left anterior descending artery, reverse saphenous vein [...] Take 5 (more content not included)... [facility] 03-23-2023 Miscellaneous Notes 03/23/2023 After visit Summary faxed to Dr Hopkins with confirmation received. PSS forgot to have pt complete release of information forms. This nurse has placed 2 copies in [place] mail for pt to complete and take to facility to release information to our office. POA was advised via voice message to send a [employer] msg if he had any further question. Terri Santos Lpn documented in this encounter [facility] 03-23-2023 Instructions Jodi Banerjee DO - 03/23/2023 2:40 PM EDT Please sign records release for last blood test results. documented in this encounter [facility] 03-23-2023 History of Present illness Narrative [facility] Follow-up visit March 23, 2023 HPI: Overall [...] encounter he has moved and low lives [facility]. He states he does not [...] mainly his brother. He has seen by planning specialist in 01/2023 with suggestion that he get a hearing aide but he refuses. After his last encounter he has followed up with cardiology concerning his heart rate that was auscultated on last encounter. They checked his heart rhythm and thought it was appropriate. This was as via physician in [place]. They deny other changes to his health and/or medications except for the above since our last encounter. PAST MEDICAL HISTORY Diagnosis Date Arthritis Carotid stenosis Coronary artery disease Coronary atherosclerosis of unspecified type of vessel, [place] or graft 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 Dyslipidemia Hypertension Hypertension Hypothyroid Lumbar disc disease Unspecified hypothyroidism Hypothyroidism PAST SURGICAL HISTORY Procedure Laterality Date PAST SURGICAL HISTORY OF CABG times 6 left internal thoracic artery to the lyx-xh-mjckws left anterior descending artery, reverse saphenous vein [...] with more than 50% of the total rjgg-pq-cdcs time of the visit in counseling / coordination of care. documented in this encounter [facility] 08-27-2022 Note HNO ID: [id number] Author: Jodi Banerjee, DO Service: ? 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 documented in this encounter [facility] 05-28-2011 History of Past i llness Narrative Problem Noted Date Resolved Date Stress hyperglycemia 05/28/2011 06/01/2011 Overview: RHI gtt per ICU protocol Mechanically assisted ventilation 05/28/2011 05/29/2011 Overview: Extubated 05/29/11 no increased work of breathing Hypotension 05/28/2011 05/30/2011 Overview: Levo off this morning, hemodynamically stable. documented as of this encounter (statuses as of 08/27/2022) [facility] of Past illness Narrative* Problem Noted Date Diagnosed Date Resolved Date Stress hyperglycemia 05/28/2011 011 Overview: RHI gtt per ICU protocol Mechanically assisted ventilation 05/28/2011 05/29/2011 Overview: Extubated 05/29/11 no increased work of breathing Hypotension 05/28/2011 05/30/2011 Overview: Levo off this morning, hemodynamically stable. documented as of this encounter (statuses as of 03/24/2023) [facility] History of Past illness Narrative* Problem Noted Date Diagnosed Date Resolved Date Stress hyperglycemia 05/28/2011 011 Overview: RHI gtt per ICU protocol Mechanically assisted ventilation 05/28/2011 05/29/2011 Overview: Extubated 05/29/11 no increased work of breathing Hypotension 05/28/2011 05/30/2011 Overview: Levo off this morning, hemodynamically stable. 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 (CMS/HCC) Polyneuropathy Unspecified hereditary and idiopathic peripheral neuropathy documented in this encounter [facility]* Diagnosis Functional urinary incontinence- Primary Other specified disorders of kidney and ureter Urinary incontinence, unspecified type [facility] filed[facility] filedocumented in this encounter [facility] filedocumented in this encounter [facility] Summary Purpose Family History No Family History Records FoundNo Family History Records FoundNo Family History Records FoundNo Family History Records FoundNo Family History Records FoundNo Family History Records FoundNo Family History Records FoundNo Family History Records Found Advance Directives Documents on File Type Date 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 DATE CREATED AUTHOR AUTHOR'S ORGANIZ ATION 08/28/2022 [facility] DATE CREATED AUTHOR AUTHOR'S ORGANIZ ATION 12/12/2022 [facility] DATE CREATED AUTHOR AUTHOR'S ORGANIZ ATION 03/25/2023 [facility] DATE CREATED AUTHOR AUTHOR'S ORGANIZ ATION 06/02/2024 [facility] DATE CREATED AUTHOR AUTHOR'S ORGANIZ ATION 07/23/2024 [facility] DATE CREATED AUTHOR AUTHOR'S ORGANIZ ATION 07/25/2024 [facility] Source Comments (unrecognize d section and content) In the event this informatio n is protected by the Federal Confidentiality of Alcohol and Drug Abuse Patient Records regulations: The Federal rules restrict any use of the information to criminally investigate or prosecute any alcohol or drug abuse patient.[facility] the event this information is protected by the Federal Confidentiality of Alcohol and Drug Abuse Patient Records regulations: The Federal rules restrict any use of the information to criminally investigate or prosecute any alcohol or drug abuse patient.[facility] the event this information is protected by the Federal Confidentiality of Alcohol and Drug Abuse Patient Records regulations: The Federal rules restrict any use of the information to criminally investigate or prosecute any alcohol or drug abuse patient.[facility] Reason for Visit (unrecogniz ed section and content) Reason Comments New Patient Reason Comments Follow Up Reason Comments Memory Loss Reason Comments Urinary Incontinence Specialty Diagnoses / Procedures Referred By Sandip t Referred To Contact Urology Diagnoses Other specified disorders of kidney and ureter Urinary incontinence, unspecified type Pipe Hopkins MD [address] [place] [address] Phone: tel: fax: [facility] [address] [place] [address] [place] [address] [address] [place] [address] Phone: tel: fax: Referral ID Status Reason Start Date Expiration Date Visits Requested Visits Authorized [id number] Pending Review Specialty Services Required 04/12/2024 04/12/2025 1 1 Care Teams (unrecognized sec tion and content) Welding Specialist Relationship Specialty Start Date End Date Pipe Hopkins MD [address] [place] [address] PCP - General 05/19/11 [facility] [address] [place] [address] Primary Staff Physician Cardiology 09/21/18 Welding Specialist Relationship Specialty Start Date End Date Pipe Hopkins MD [address] [place] [address] PCP - General 05/19/11 [facility] [place] [address] [place] [address] Primary Staff Physician Cardiology 09/21/18 Welding Specialist Relationship Specialty Start Date End Date Pipe Hopkins MD [address] [place] [address] PCP - General 05/19/11 [address] [address] [place] [address] Primary Staff Physician Cardiology 09/21/18 FOR RECORDS [...] BE BASED ON THE PRIMARY CLINICAL RECORDS. [employer] [facility]. provides no warranty or guarantee of the accuracy or completeness of information in this document.
--- NOTE | 2024-09-06 10:46 | MR_ITS ---
The [address] [address] Patient Name: LEANNA NGUYỄN MRN: [id number] date: 1940 Sex: M Assigned Patient Location: CARD Current Patient Location: CARD Accession/Order Number: [id number] Exam Date: 09/06/2024 15:57 Report Date: 09/06/2024 15:58 At the request of: LYDIA VALLE Procedure: MR head/brain wo con EXAMINATION: MRI OF THE BRAIN WITHOUT CONTRAST CLINICAL HISTORY: Cognitive Decline COMPARISON: None TECHNIQUE: Multiecho, multiplanar imaging of the brain was performed without enhancement. FINDINGS: No evidence of restriction diffusion is seen on diffusion-weighted imaging. No evidence of blood products are seen on T2 Star imaging. Cortical atrophy with moderately severe chronic microvascular ischemic changes are noted. Posterior fossa demonstrates no focal abnormality. Intraorbital contents demonstrate no focal abnormality. No significant paranasal sinus disease. MR/MR head/brain wo con IMPRESSION: NO ACUTE INTRACRANIAL ABNORMALITY. CORTICAL ATROPHY WITH MODERATELY SEVERE CHRONIC MICROVASCULAR ISCHEMIC CHANGES. Impression dictated by: Chau Estevez Jr., D.O.09/06/2024 3:58 PM Dictation Location: [place] [address] Electronically authenticated by: [id number] Y Date: 09/06/2024 15:58
[2024-09-06 11:15] LABS: Erythrocyte Sedimentation Rate 19 mm/hr (<=20)
[2024-09-06 11:41] LABS: Thyroid Stimulating Hormone 4.135 uIU/mL (0.358-3.740)
[2024-09-06 11:49] LABS: Free T4 1.12 ng/dL (0.76-1.46)
[2024-09-06 12:34] LABS: Estimated Average Glucose 114 mg/dL; Glycohemoglobin A1C 5.6 % (4.5-6.2)
[2024-09-07 02:08] LABS: Vitamin B12 871 pg/mL (232-1245)
[2024-09-07 06:08] LABS: C-Reactive Protein, Cardiac 0.84 mg/L (0.00-3.00); Homocyst(e)ine 18.6 umol/L (0.0-21.3); Rheumatoid Factor (RF) <10.0 IU/mL (<14.0)
[2024-09-07 12:09] LABS: Rapid Plasma Reagin, Quant Non Reactive titer (NonRea<1:1)
[2024-09-07 17:08] LABS: ANA Direct Positive (Negative); Anti-DNA (DS) Ab Qn 13 IU/mL (0-9); Lyme Total Antibody CIA Negative (Negative); RNP Antibodies <0.2 AI (0.0-0.9); Sjogren's Anti-SS-A <0.2 AI (0.0-0.9); Sjogren's Anti-SS-B <0.2 AI (0.0-0.9)
[2024-09-08 11:08] LABS: Alpha-1-Globulin 0.2 g/dL (0.0-0.4); Alpha-2-Globulin 0.7 g/dL (0.4-1.0); Gamma Globulin 1.2 g/dL (0.4-1.8); Immunofixation Result, Serum Comment: (.); Immunoglobulin A, Qn, Serum 286 mg/dL (61-437); Immunoglobulin G, Qn, Serum 1309 mg/dL (603-1613); Immunoglobulin M, Qn, Serum 45 mg/dL (15-143); Protein, Total 7.2 g/dL (6.0-8.5)
[2024-09-08 15:09] LABS: Beta Globulin, U 29.1 % (.); M-Spike, % Not Observed % (Not Observed); Protein,Total,Urine 19.8 mg/dL (Not Estab.)
[2024-09-08 16:10] LABS: West Nile Virus, IgG Negative (Negative); West Nile Virus, IgM Negative (Negative)
[2024-09-10 05:10] LABS: Copper Level 74 ug/dL (69-132); Zinc Level 74 ug/dL (44-115)
[2024-09-11 11:07] LABS: Vitamin B6, Plasma 23.9 ug/L (3.4-65.2)
[2024-09-11 23:10] LABS: Methylmalonic Acid, Serum 364 nmol/L (0-378)
== END 2024-09-06 09:30 | disposition home or self-care (01) ==
LOC: CARD 09:29
PROVIDERS: PCP Family Medicine; Visit Provider Psychiatry & Neurology Neurology
DX: R41.89 Other symptoms and signs involving cognitive functions and awareness (principal); G62.9 Polyneuropathy, unspecified; R79.89 Other specified abnormal findings of blood chemistry; G60.9 Hereditary and idiopathic neuropathy, unspecified; Z11.3 Encounter for screening for infections with a predominantly sexual mode of transmission; E53.1 Pyridoxine deficiency; I70.91 Generalized atherosclerosis; D51.3 Other dietary vitamin B12 deficiency anemia; M79.10 Myalgia, unspecified site; E78.5 Hyperlipidemia, unspecified; R51.9 Headache, unspecified; G40.909 Epilepsy, unspecified, not intractable, without status epilepticus
CPT/HCPCS: 36415; 70551; 82390; 82525; 82607; 82746; 82784; 83036; 83090; 83921; 84155; 84156; 84165; 84166; 84207; 84439; 84443; 84630; 85652; 86038; 86140; 86225; 86235; 86334; 86335; 86431; 86592; 86618; 86788; 86789; 95819

== ENCOUNTER 2025-02-21 18:11 | Inpatient (IN) | payer OTHER, MEDICAID, SELFPAY ==
[2025-02-21] VITALS (15 sets, daily range): BP systolic 140–152; BP diastolic 59–84; PULSE 48–71; TEMP 36.4–36.8; O2SAT 99; BMI 26.4
--- NOTE | 2025-02-21 18:35 | XR_ITS ---
The [address] [address] Patient Name: LEANNA NGUYỄN MRN: [id number] date: 1940 Sex: M Assigned Patient Location: ED.MAIN Current Patient Location: ED.MAIN Accession/Order Number: [id number] Exam Date: 02/21/2025 20:00 Report Date: 02/21/2025 20:02 At the request of: CRISTAL FISHMAN MD Procedure: XR foot RT min 3V 3 views right foot plain film COMPARISON:None HISTORY: Right foot swelling and redness. Wound involving the fourth and fifth toes ACUTE FINDINGS: None DEGENERATIVE CHANGE: Moderate degeneration SOFT TISSUE FINDINGS: Soft tissue swelling. No subcutaneous air. Atherosclerosis JOINT EFFUSION: None POSTOP CHANGES: None BONE MINERALIZATION: Decreased XR/XR foot RT min 3V IMPRESSION: Extensive degeneration and decrease bony mineralization limiting bony detail. No acute bony destruction or fracture. Soft tissue swelling. No subcutaneous air. Impression dictated by: Nguyễn Cagel M.D. 02/21/2025 8:02 PM Dictation Location[facility] Electronically authenticated by: [id number] Y Date: 02/21/2025 20:02
--- NOTE | 2025-02-21 18:36 | XR_ITS ---
The [address] [address] Patient Name: LEANNA NGUYỄN MRN: [id number] date: 1940 Sex: M Assigned Patient Location: ED.MAIN Current Patient Location: ED.MAIN Accession/Order Number: [id number] Exam Date: 02/21/2025 19:58 Report Date: 02/21/2025 20:00 At the request of: CRISTAL FISHMAN MD Procedure: XR tibia fibula RT 2V 2 views right tibia and fibula plain film HISTORY: Increased swelling and redness of right foot with and wound involving the fourth and fifth toe COMPARISON: None ACUTE FINDINGS: None DEGENERATIVE CHANGE: Calcaneal spurring SOFT TISSUE FINDINGS: Soft tissue swelling. No subcutaneous air. JOINT EFFUSION: None POSTOP CHANGES: Surgical clips. Atherosclerosis BONE MINERALIZATION: Adequate XR/XR tibia fibula RT 2V IMPRESSION: Soft tissue swelling. No subcutaneous air. Impression dictated by: Nguyễn Cagle M.D. 02/21/2025 8:00 PM Dictation Location: [place] Electronically authenticated by: [id number] Y Date: 02/21/2025 20:00
--- OUTSIDE RECORDS SUMMARY | 2025-02-21 18:50 | XMS_ITS | CCD ---
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 Name Role Phone PHYSICIAN, DEFAULT Unavailable Unavailable PHYSICIAN, DEFAULT Unavailable Unavailable EVELIA, SUNJUK Unavailable Unavailable EVELIA, SUNJUK Unavailable Unavailable EVELIA, SUNJUK Unavailable Unavailable Pipe [phone] UNKNOWN Unavailable Unavailable Pipe Hopkins MD Primary Care Provider [phone] [place] Unavailable PIPE HOPKINS Primary Care [...] BEDOLLA Consulting Unavailable FAROOQ SIMPSON Consulting Unavailable DR PIPE RIOS Attending Unavailable HOY ., DR BETANCUR Admitting Unavailable HOY ., DR BETANCUR Consulting Unavailable MONTYY ., DR BETANCUR Primary Care Unavailable ZILEONARD, [...] Unavailable HOY ., DR BETANCUR Admitting Unavailable Hoy Pipe XIONG Primary Care Provider [phone] GeneFarooq Lou Unavailable JODI BANERJEE Attending Unavailab PIPE Griffith Primary Care Unavailable JODI BANERJEE Attending Unavailab PIPE Griffith Primary Care Unavailable AYSE BARNES Attending Unavailable AYSE BRANES Attending Unavailable Unavailable Primary Care Provider Unavailbryan e Unavailable Primary Care Provider Unavailbryan e LYDIA BURRIS Attending Unavailable LYDIA BURRIS Attending PIPE Gann Referring Unavailable Allergies Allergy Classification Reported Allergen(s) Allergy Type Date of Onset Reaction(s) Facility (2 sources) atorvastatin; Translations: [Lipitor] Drug Allergy [facility] Repository (10 sources) atorvastatin; Translations: [ATORVASTATIN CALCIUM] Drug Allergy 4 Hives, Rash [facility] (5 sources) atorvastatin; Translations: [ATORVASTATIN] Drug Allergy 4 Hives, Other (See Comments), Rash, Itching [facility] Repository Medications Current Medications Medication Drug Class(es) Dates Sig (Normalized) Sig (Original) acetaminophen 500 mg oral tablet (11 sources) take 2 tablets by mouth in [...] nee ded. amLODIPine 2.5 mg oral tablet (8 sources) Dihydropyridine Calcium Channel [place] Start: 2023 End: 2024 take 1 tablet by mouth in the morning amLODIPine (NORVASC) 2.5 mg tablet Take 1 tablet (2.5 mg total) by mouth in the morning. 05/30/2024 05/30/2025 Active B Complex Vitamins (vitamin B complex) tablet (5 sources) Start: 2022 B Complex Vitamins (vitamin B complex) tablet 05/19/2023 Active b complex vitamins capsule (3 sources) take 1 capsule by mouth in the morning b complex vitamins capsule Take 1 capsule by mouth in the morning. Active b complex-folic acid tablet (5 sources) take 1 tablet by mouth in the morning b complex-folic acid tablet Take 1 tablet by mouth in the morning. Active carbidopa 25 mg / levodopa 100 mg oral tablet (2 sources) Aromatic Amino Acid Decarboxylation Inhibitor, Aromatic Amino Acid Start: 2024 carbidopa-levodopa (Sinemet) 25-100 MG tablet 09/06/2024 Active cefdinir 300 mg oral capsule (5 sources) Cephalosporin Antibacterial Start: 2022 take 2 capsules by mouth in the morning cefdinir (Omnicef) 300 MG capsule Take 2 capsules by mouth in the morning. 09/10/2022 Active celecoxib 100 mg oral capsule (7 sources) Nonsteroidal Anti-inflammatory Drug End: 2022 take 1 capsule by mouth in the morning celecoxib (CeleBREX) 100 MG capsule Take 100 mg by mouth in the morning. Active Comment on above: Take 100 mg by mouth once daily. cholecalciferol 0.05 mg oral tablet (13 sources) Vitamin D take 1 tablet by mouth in the morning cholecalciferol (Vitamin D-3) 50 MCG (2000 UT) tablet Take 2,000 Units by mouth in the morning. Active End: 09-13-2024 Cholecalciferol (Vitamin D) 50 MCG (2000 UT) capsule 1 capsule 1 (one) time each day at the same time. 09/13/2024 Discontinued hydroCHLOROthiazide 25 mg oral tablet (3 sources) Thiazide Diuretic take 1 tablet by mouth once daily hydroCHLOROthiazide (HYDRODIURIL) 25 mg tablet Take 1 tablet (25 mg total) by mouth daily. Active levothyroxine sodium 0.1 mg oral tablet (8 sources) l-Thyroxine Start: levothyroxine (Synthroid, Levoxyl) 100 MCG tablet 08/29/2024 Active Start: 06-09-2011 take 1 tablet by shyla th once daily levothyroxine (SYNTHROID) 100 mcg tablet Take 1 tablet by mouth once daily. 0 06/09/2011 Active Comment on above: Take 1 tablet by shyla th once daily. liothyronine sodium 0.005 mg oral tablet (8 sources) l-Triiodothyronine Start: 09-05-2024 liothyronine (Cytomel) 5 MCG tablet 09/05/2024 Active take 1 tablet by mouth in the mo rning liothyronine (CYTOMEL) 5 MCG tablet Take 1 tablet (5 mcg total) by mouth in the morning. Active Comment on above: Take 5 mcg by mouth once daily. memantine hydrochloride 10 mg oral tablet (2 sources) N-plmlhk-X-aspartate Receptor Antagonist Start: 08-16-2024 memantine (Namenda) 10 MG tablet 08/16/2024 Active tolterodine tartrate 1 mg oral tablet (5 sources) Cholinergic Muscarinic Antagonist Start: 09-07-2024 tolterodine (Detrol) 1 MG tablet 09/07/2024 Active Start: 06-06-2024 take 1 tablet by shyla th in the morning, then take 1 tablet by mouth at bedtime tolterodine (DETROL) 2 mg tablet Take 1 tablet (2 mg total) by mouth in the morning and 1 tablet (2 mg total) before bedtime. 06/06/2024 Active Completed/Discontinued Medications Medication Drug Class(es) Dates Sig (Normalized) Sig (Original) aspirin 81 mg delayed release oral tablet (8 sources) Platelet Aggregation Inhibitor, Nonsteroidal Anti-inflammatory Drug [...] shyla th once daily for 14 days. multivitamin with minerals (MULTI-VIT 55 PLUS ORAL) [...] Coronary arteriosclerosis; Translations: [Atherosclerotic heart disease of [place] coronary artery without angina pectoris] Onset: 05-27-2011 [...] Onset: 07-14-2022 Chronic Other nervous system disorders (8 sources) Polyneuropathy; Translations: [Polyneuropathy, unspecified] Onset: 07-19-2024 07-19-2024 Chronic Other nervous system disorders (8 sources) Impaired cognition; Translations: [Other symptoms and signs involving cognitive functions and awareness] Onset: 07-19-2024 07-19-2024 Episodic Residual codes; unclassified (2 sources) Altered mental status; Translations: [Altered mental status, unspecified] Episodic Residual codes; unclassified (1 source) Amnesia; Translations: [Other amnesia] 03-23-2023 Episodic Thyroid disorders (5 sources) Hypothyroidism; Translations: [Hypothyroidism, unspecified] Onset: 05-28-2011 Chronic Unclassified (8 sources) Parkinson's disease; Translations: [Parkinson's disease without [...] Onset: 07-14-2022 Episodic Deficiency and other anemia (2 sources) Anemia, [...] Onset: 07-14-2022 Episodic Other aftercare (1 source) long term care administrator (current) use of aspirin; Translations: [[facility] CURRENT USE OF ASPIRIN] Onset: 07-14-2022 Episodic Other aftercare (1 source) Other halfway (current) drug therapy; Translations: [OTH HEAT TREATING BLUER CURRENT DRUG THERAPY] Onset: 07-14-2022 Episodic Other [...] Name Value Interpretation Reference Range Facility CBC (NO DIFF)on 12-19-2024 Erythrocyte distribution width (RBC) [Ratio] 14.0 % Normal 11.5-15 [place] Comment on above: Performed By: #### C BC #### [facility] ([address] [address] VIR Hematocrit (Bld) [Volume fraction] 42.4 % Normal 39-50 [place] Comment on above: Performed By: #### C BC #### [facility] ([address] [address] VIR Hemoglobin (Bld) [Mass/Vol] 13.9 g/dL Normal 13-17 [place] Comment on above: Performed By: #### C BC #### [facility] ([address] [address] VIR MCH (RBC) [Entitic mass] 29.8 pg Normal 27-34 [place] Comment on above: Performed By: #### C BC #### [facility] ([address] [address] VIR MCHC (RBC) [Mass/Vol] 32.8 g/dL Normal 32-36 [facility] Comment on above: Performed By: #### C BC #### [facility] ([address] [address] VIR MCV (RBC) [Entitic vol] 91 fL Normal 80-100 [place] Comment on above: Performed By: #### C BC #### [facility] ([address] [address] VIR Platelet mean volume (Bld) [Entitic vol] 8.1 fL Normal 7-12 [place] Comment on above: Performed By: #### C BC #### [facility] ([address] [place] [address] VIR Platelets (Bld) [#/Vol] 244 10*3/uL Normal 150-450 [place] Comment on above: Performed By: #### C BC #### [facility] ([address] [place] [address] VIR RBC COUNT 4.67 X10E12/L Normal 4.1-5.7 [place] Comment on above: Performed By: #### C BC #### [facility] ([address] [place] [address] VIR WBC (Bld) [#/Vol] 8.5 10*3/uL Normal 4-11 [facility] Comment on above: Performed By: #### C BC #### [facility] ([address] [place] [address] VIR ELECTROLYTE PANELon 16-20 25 Anion gap [Moles/Vol] 8 mmol/L Normal 5-15 [facility] Comment on above: Performed By: #### E LEC #### [facility] ([address] [place] [address] VIR Chloride [Moles/Vol] 102 mmol/L Normal 98-109 [facility] Comment on above: Performed By: #### E LEC #### [facility] ([address] [place] [address] VIR CO2 [Moles/Vol] 25 mmol/L Normal 22-32 [place] Comment on above: Performed By: #### E LEC #### [facility] ([address] [place] [address] VIR Potassium [Moles/Vol] 3.9 mmol/L Normal 3.5-5.0 [facility] Comment on above: Performed By: #### E LEC #### [facility] ([facility]) [address] [place] [address] VIR Sodium [Moles/Vol] 135 mmol/L Normal 134-146 [facility] Comment on above: Performed By: #### E LEC #### [facility] ([facility]) [address] [place] [address] VIR LIPID PROFILEon 12-19-2024 Cholesterol [Mass/Vol] 150 mg/dL Normal 150-200 [place] Comment on above: Performed By: #### L IPR #### [facility] ([facility]) [address] [place] [address] VIR Cholesterol in HDL [Mass/Vol] 61 mg/dL Normal >39 [place] Comment on above: Result Comment: HDL <40 mg/dL - High Risk HDL > or = 40mg/dL- Desirable HDL >60 mg/dL - Negative Risk Performed By: #### L IPR #### [facility] ([facility]) [address] [place] [address] VIR Cholesterol in LDL [Mass/Vol] 63 mg/dL Normal <130 [place] Comment on above: Result Comment: LDL <100 mg/dL - Desirable LDL >160 mg/dL - High Risk Performed By: #### L IPR #### [facility] ([facility]) [address] [place] [address] VIR CHOLESTEROL:HDL 2.5 Normal 1.0-5.0 [place] Comment on above: Performed By: #### L IPR #### [facility] ([facility]) [address] [place] [address] VIR Triglyceride [Mass/Vol] 130 mg/dL Normal 27-150 [place] Comment on above: Performed By: #### L IPR #### [facility] ([facility]) [address] [place] [address] VIR VERY LOW LIPOPROTEIN 26 mg/dL Normal 0-30 [facility] Comment on above: Performed By: #### L IPR #### [facility] ([facility]) [address] [place] [address] VIR TSHon 12-19-2024 TSH 1.16 uIU/mL Normal 0.49-4.67 [place] Comment on above: Performed By: #### T SH #### [facility] ([facility]) [address] [place] [address] VIR VITAMIN D 25 HYDROXYon 12-19 VITAMIN D 25 HYD TOT 39.0 ng/mL Normal 30.0-100.0 [facility] Comment on above: Order Comment: Vitam in D status 25 [place] Vitamin D Deficiency <20 ng/mL Insufficiency 20-29 ng/mL Sufficiency 30-100 ng/mL Toxicity >100 ng/mL NOTE: A pediatric reference range has not been established by the boiler assistant operator of this kit. The [place] [employer] recommends a Vitamin D level of = or >20ng/mL in infants and children. Performed By: #### V ITD #### [facility] ([facility]) [address] [place] [address] VIR CBC AND AUTO DIFFon 07-22-19 25 ABSOLUTE BASOPHIL 0.1 X10E9/L Normal 0.0-0.2 [facility] Comment on above: Performed By: #### C BCA, THYR, 3051-0 #### [facility] ([id number]) [address] [place] [address] ABSOLUTE NEUTROPHIL 4.9 X10E9/L Normal 1.5-6.6 [facility] Comment on above: Performed By: #### C BCA, THYR, 3051-0 #### [facility] ([id number]) [address] [place] [address] Basophils/100 WBC (Bld) 1.3 % Normal [place] Comment on above: Performed By: #### C MYAH, THYR, 0 #### [facility] ([id number]) [address], [facility] [address] [place] [address] Eosinophils (Bld) [#/Vol] 0.3 10*3/uL Normal 0.0-0.4 [place] Comment on above: Performed By: #### C BCA, THYR, 0 #### [facility] ([id number]) [address], [facility] [address] [place] [address] Eosinophils/100 WBC (Bld) 3.5 % Normal [place] Comment on above: Performed By: #### Soni GLASGOW, THYR, #### [facility] ([id number]) [address] [facility] [address] [place] [address] Erythrocyte distribution width (RBC) [Ratio] 13.5 % Normal 11.5-15.0 [place] Comment on above: Performed By: #### Soni GLASGOW, THYR, #### [facility] ([id number]) [address] [address] [place] [address] Hematocrit (Bld) [Volume fraction] 41.0 % Normal 39-49 [place] Comment on above: Performed By: #### Soni GLASGOW, THYR, 0 #### [facility] ([id number]) [address], [facility] [address] [place] [address] Hemoglobin (Bld) [Mass/Vol] 13.3 g/dL Normal 13.0-17.0 [place] Comment on above: Performed By: #### Soni BCA, THYR, 0 #### [facility] ([id number]) [address] [place] [address] Lymphocytes (Bld) [#/Vol] 2.6 10*3/uL Normal 1.0-3.5 [place] Comment on above: Performed By: #### Soni GLASGOW THYR, #### [facility] ([id number]) [address] [place] [address] Lymphocytes/100 WBC (Bld) 30.3 % Normal [place] Comment on above: Performed By: #### Soni GLASGOW THYR, 0 #### [facility] ([id number]) [address] [place] [address] MCH (RBC) [Entitic mass] 29.5 pg Normal 27-34 [place] Comment on above: Performed By: #### Soni GLASGOW THYR, #### [facility] ([id number]) [address] [place] [address] MCHC (RBC) [Mass/Vol] 32.3 g/dL Normal 32-36 [facility] Comment on above: Performed By: #### Soni GLASGOW THYR, #### [facility] ([id number]) [address] [place] [address] MCV (RBC) [Entitic vol] 91 fL Normal 80-100 [place] Comment on above: Performed By: #### Soni GLASGOW THYR, #### [facility] ([id number]) [address] [place] [address] Monocytes (Bld) [#/Vol] 0.8 10*3/uL Normal 0-0.9 [place] Comment on above: Performed By: #### Soni GLASGOW THYR, #### [facility] ([id number]) [address], [address] [place] [address] Monocytes/100 WBC (Bld) 9.4 % Normal [place] Comment on above: Performed By: #### Soni GLASGOW, THYR, 0 #### [facility] ([id number]) [address], [address] [place] [address] Neutrophils/100 WBC (Bld) 55.5 % Normal [place] Comment on above: Performed By: #### Soni GLASGOW, THYR, 3050-0 #### [facility] ([id number]) [address] [place] [address] Platelet mean volume (Bld) [Entitic vol] 8.0 fL Normal 7-12 [place] Comment on above: Performed By: #### Soni GLASGOW, THYR, 0 #### [facility] ([id number]) [address] [address] [place] [address] Platelets (Bld) [#/Vol] 231 10*3/uL Normal 150-450 [place] Comment on above: Performed By: #### Soni GLASGOW, THYR, 0 #### [facility] ([id number]) [address], [facility] [address] [place] [address] RBC COUNT 4.49 X10E12/L Normal 4.10-5.70 [place] Comment on above: Performed By: #### Soni GLASGOW, THYR, 0 #### [facility] ([id number]) [address] [address] [place] [address] WBC (Bld) [#/Vol] 8.8 10*3/uL Normal 4.0-11.0 [facility] Comment on above: Performed By: #### Soni GLASGOW, THYR, 0 #### [facility] ([id number]) [address] [place] [address] FREE T3on 07-22-2024 Free T3 [Mass/Vol] 2.89 pg/mL Normal 2.50-3.90 [facility] Comment on above: Performed By: #### C BCA, THYR, 305-0 #### [facility] ([id number]) [address] [place] [address] THYROID PROFILEon 07-22-2024 Free T4 [Mass/Vol] 1.02 ng/dL Normal 0.61-1.60 [facility] Comment on above: Performed By: #### C BCA, THYR, 305-0 #### [facility] ([id number]) [address] [place] [address] TSH 1.50 uIU/mL Normal 0.49-4.67 [place] Comment on above: Performed By: #### Soni BCA, THYR, 305-0 #### [facility] ([id number]) [address] [place] [address] Office Visiton 05-30-2024 Follow-up visit [id number] Leanna Nelson 1940 M [facility] Provider Department [place] 05/30/2024 AYSE VIVAR KADEEM Benitez Family History Problem Relation Age of Onset Coronary artery disease Brother Heart attack Brother Heart failure Brother Other Brother Family Status - Relation Status Age at Brother Level of Service:40766 MO OFFICE/OUTPATIENT ESTABLISHED MOD MDM 30 MIN Normal [facility] Office Visiton 06-24-2023 Follow-up visit [id number] Leanna Nelson 1940 M Date Provider Department Center 06/24/2023 AYSE VIVAR KADEEM Benitez Family History Problem Relation Age of Onset Coronary artery disease Brother Heart attack Brother Heart failure Brother Other Brother Family Status - Relation Status Age at Brother Level of Service:75999 MO OFFICE/OUTPATIENT ESTABLISHED LOW MDM 20 MIN Normal [facility] CNOVon 03-23-2023 [facility] LEANNA NELSON ([id number]) 1940 M Date Time Provider Department 03/23/23 2:00 PM JODI BANERJEE During your visit today, we recorded the following information about you: Pulse Blood pressure 51/minute 151/68 Jodi Banerjee, DO 03/23/2023 2:41 PM Signed [facility] [place] Follow-up visit March 23, 2023 HPI: Overall [...] encounter he has moved and low lives [facility]. He states he does not [...] mainly his brother. He has seen by cylinder grinder in 01/2023 with suggestion that he get a hearing aide but he refuses. After his last encounter he has followed up with cardiology concerning his heart rate that was auscultated on last encounter. They checked his heart rhythm and thought it was appropriate. This was as via physician in [place]. They deny other changes to his health and/or medications except for the above since our last encounter. PAST MEDICAL HISTORY Diagnosis Date Arthritis Carotid stenosis Coronary artery disease Coronary atherosclerosis of unspecified type of vessel, [place] or graft 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 Dyslipidemia Hypertension Hypertension Hypothyroid Lumbar disc disease Unspecified hypothyroidism Hypothyroidism PAST SURGICAL HISTORY Procedure Laterality Date PAST SURGICAL HISTORY OF CABG times 6 left internal thoracic artery to the [id number] left anterior descending artery, reverse saphenous vein [...] onc (more content not included)... [facility] (NEUAV4) LEANNA NELSON ([id number]) 1940 M Date Time Provider Department 03/23/23 [...] advised via voice message to send a Giving Assistant msg if he had any further question. Terri Santos Quick Mixer Operator Allergies As of Date: 03/23/2023 Noted Allergy [...] testing [Z01.818] 05/27/2011 Coronary artery disease involving [place] heart *05/27/2011 Post-operative pain [G89.18] 05/28/2011 Stress hyperglycemia [R73.9] 05/28/2011 06/01/2011 Mechanically assisted ventilation [Z99.11] 05/28/2011 05/29/2011 Hypotension [I95.9] 05/28/2011 05/30/2011 Hypothyroid [E03.9] 05/28/2011 Hyperlipidemia [E78.5] 05/28/2011 SUMMARY [V999.95] 05/30/2011 Hypertension [I10] 05/30/2011 S/P CABG (coronary artery bypass graft), [place] t*02/20/2020 Encounter Status:Closed by TERRI SANTOS on 03/23/23 Normal [facility] CT CHEST WO CONon 10-27-2022 [...] GAVIRIA Date: 2022-10-27 10:00 Normal [facility] LIPID PROFILEon 09-24-2022 CHOL-HDL RATIO NORM SEE BELOW Normal [facility] Comment on above: Result Comment: 3.3 - 4.4 LOW RISK 4.4 - 7.1 AVERAGE RISK 7.1 - 11.0 MODERATE RISK >11.0 HIGH RISK Performed By: #### L IPID, CMP ####[facility] [id number] [place] [id number]. Sheysarah Vásquez Cholesterol [Mass/Vol] 149 mg/dL Normal <=200 [facility] Comment on above: Performed By: #### L IPID, CMP ####[facility] [address] [place] [address]Dr. Aissatou Vásquez Cholesterol in HDL [Mass/Vol] 83 mg/dL Critically high 40-60 [facility] Comment on above: Performed By: #### L IPID, CMP ####[facility] [address] [place] [address]Dr. Aissatou Vásquez Cholesterol in LDL [Mass/Vol] 58.6 mg/dL Normal [facility] Comment on above: Performed By: #### L IPID, CMP ####[facility] [address] [place] [address]Dr. Aissatou Vásquez Cholesterol.total/Cho lesterol in HDL [Mass ratio] 1.8 {ratio} Normal [facility] Comment on above: Performed By: #### L IPID, CMP ####[facility] [address] [place] [address]Dr. Sheylan Vásquez HDL NORMAL > or = 60 mg/dl - LO W CARDIOVASCULAR RISK <40 mg/dl - HIGH CARDIOVASCULAR RISK Normal [facility] Comment on above: Performed By: #### L IPID, CMP ####[facility] [address] [place] [address]Dr. Sheysarah Vásquez LDL CALC NORMAL SEE BELOW Normal [facility] Comment on above: Result Comment: <100 mg/dl OPTIMAL 100 - 129 mg/dl NEAR OR ABOVE OPTIMAL 130 - 159 mg/dl BORDERLINE HIGH 160 - 189 mg/dl HIGH >190 mg/dl VERY HIGH Performed By: #### L IPID, CMP ####[facility] [address] [place] [address]Dr. Aissatou Vásquez Triglyceride [Mass/Vol] 37 mg/dL Normal <=150 [facility] Comment on above: Performed By: #### L IPID, CMP ####[facility] [address] [place] [address]Dr. Aissatou Vásquez VLDL CALC 7.4 mg/dL Normal [facility] Comment on above: Performed By: #### L IPID, CMP ####[facility] [address] [place], [place] [address]Dr. Aissatou Vásquez PROF 14(COMP METB)on 023 Albumin [Mass/Vol] 3.8 g/dL Normal 3.4-5.0 [facility] Comment on above: Performed By: #### L IPID, CMP ####[facility] [address] [place], [place] [address]Dr. Aissatou Vásquez Albumin/Globulin [Mass ratio] 1.0 {ratio} Normal [facility] Comment on above: Performed By: #### L IPID, CMP ####[facility] [address] [place], [place] [address]Dr. Aissatou Vásquez ALP [Catalytic activity/Vol] 98 U/L Normal 46-116 [facility] Comment on above: Performed By: #### L IPID, CMP ####[facility] [address] [place], [place] [address]Dr. Aissatou Vásquez ALT [Catalytic activity/Vol] 25 U/L Normal 16-63 [facility] Comment on above: Performed By: #### L IPID, CMP ####[facility] [address] [place], [place] [address]Dr. Aissatou Vásquez Anion gap [Moles/Vol] 15.5 mmol/L Normal [facility] Comment on above: Performed By: #### L IPID, CMP ####[facility] [address] [place], [place] [address]Dr. Aissatou Vásquez AST [Catalytic activity/Vol] 21 U/L Normal 15-37 [facility] Comment on above: Performed By: #### L IPID, CMP ####[facility] [id number] [place], [place] [address]Dr. Aissatou Vásquez Bilirubin [Mass/Vol] 0.5 mg/dL Normal 0.2-1.0 [facility] Comment on above: Performed By: #### L IPID, CMP ####[facility] Q[address] [place], [place] [address]Dr. Aissatou Vásquez Calcium [Mass/Vol] 9.5 mg/dL Normal 8.5-10.1 [facility] Comment on above: Performed By: #### L IPID, CMP ####[facility] [address] [place], [place] [address]Dr. Aissatou Vásquez Chloride [Moles/Vol] 107 mmol/L Normal 98-107 [facility] Comment on above: Performed By: #### L IPID, CMP ####[facility] F[address] [place], [place] [address]Dr. Aissatou Vásquez CO2 [Moles/Vol] 23.0 mmol/L Normal 21.0-32.0 [facility] Comment on above: Performed By: #### L IPID, CMP ####[facility] [address] [place], [place] [address]Dr. Aissatou Vásquez Creatinine [Mass/Vol] 1.75 mg/dL Critically high 0.70-1.30 [facility] Comment on above: Performed By: #### L IPID, CMP ####[facility] [address] [place], [place] [address]Dr. Aissatou Vásquez EGFR-AF UGANDAN 45 mL/min/1.73m2 Critically low >=60 [facility] Comment on above: Performed By: #### L IPID, CMP ####[facility] [address]npt[address] [place], [place] [address]Dr. Aissatou Vásquez EGFR-NON AF UGANDAN 37 mL/min/1.73m2 Critically low >=60 [facility] Comment on above: Performed By: #### L IPID, CMP ####[facility] [address] [address]Dr. Aissatou Vásquez Globulin (S) [Mass/Vol] 3.7 g/dL Normal [facility] Comment on above: Performed By: #### L IPID, CMP ####[facility] [address] [address]Dr. Aissatou Vásquez Glucose [Mass/Vol] 83 mg/dL Normal 74-106 [facility] Comment on above: Performed By: #### L IPID, CMP ####[facility] [address] [place], [place] [address]Dr. Aissatou Vásquez Potassium [Moles/Vol] 4.5 mmol/L Normal 3.5-5.1 [facility] Comment on above: Performed By: #### L IPID, CMP ####[facility] [address] [place], [place] [address]Dr. Aissatou Vásquez Protein [Mass/Vol] 7.5 g/dL Normal 6.4-8.2 [facility] Comment on above: Performed By: #### L IPID, CMP ####[facility] [address] [place], [place] [address]Dr. Aissatou Vásquez Sodium [Moles/Vol] 141 mmol/L Normal 136-145 [facility] Comment on above: Performed By: #### L IPID, CMP ####[facility] [address] [place], [place] [address]Dr. Aissatou Vásquez Urea nitrogen [Mass/Vol] 46.0 mg/dL Critically high 7.0-18.0 [facility] Comment on above: Performed By: #### L IPID, CMP ####[facility] [address] [place], [place] [address]Dr. Aissatou Vásquez Urea nitrogen/Creatinine [Mass ratio] 26.3 mg/mg Normal [facility] Comment on above: Performed By: #### L IPID, CMP ####[facility] [address] [place], [place] [address]Dr. Aissatou Vásquez 25(OH)D3 [facility] 02-22- 2023 25-hydroxyvitamin D3 [Mass/Vol] 28.6 ng/mL Low 31.0-80.0 [facility] Comment on above: Order Comment: Speci men Type: BLOOD SPECIMEN Ordering Facility: [facility] Address: [address] [place] [address] Result Comment: Clas sification of 25 [place] Vitamin D status: Deficiency/Insufficiency: < or = 30 ng/ml. Sufficiency/Optimal Levels: 31-80 ng/mL Toxicity: > 100 ng/mL. Test performed by chemiluminescent immunoassay. Performed By: #### 1 989-3 #### [facility] CLIA [id number] [address] [facility] [id number] [address] [facility] CNOVon 08-27-2022 CNOV Office Visit (NEUAV4 ) LEANNA NELSON Torey ([id number]) 1940 M Date Time Provider Department 08/27/22 1:00 PM JODI BANERJEE4 During your visit today, we recorded the following information about you: Pulse Blood pressure 69/minute 156/70 Jodi Banerjee DO 08/27/2022 2:35 PM Addendum [facility] [place] New Patient Consultation August 27, 2022 HPI: [...] while there. 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 Normal [facility] Reagin and Treponema pallidu m IgG and IgM [Interp]on 08-27-2022 SYPHILIS INTERPRETATION Cannot exclude recent Treponemal infection if specimen collected within 7-10 days after appearance of suspect lesions or 2-3 weeks after an exposure. Clinical correlation is required. Normal [facility] Comment on above: Order Comment: Speci men Type: BLOOD SPECIMEN Ordering Facility: [facility] Address: [address] [place] [address] Performed By: #### 7 3752-8 #### [facility] CLIA [id number] [address] [facility] [facility] [id number] [place] [address] [place] T. pallidum IgG+IgM IA Ql (S) Non-Reactive Normal Nonreactive [facility] Comment on above: Order Comment: Speci men Type: BLOOD SPECIMEN Ordering Facility: [facility] Address: [address] [place], [place] [address] Performed By: #### 7 3752-8 #### [facility] CLIA [id number] [address] [facility] [facility] [id number] [place], [place] [id number] [place] CREATININEon 07-11-2022 Creatinine [Mass/Vol] 2.09 mg/dL Critically high 0.70-1.30 [facility] Comment on above: Performed By: #### C ADAM #### [facility] [address] [address] [address] Aissatou Vásquez EGFR-AF UGANDAN 37 mL/min/1.73m2 Critically low >=60 [facility] Comment on above: Performed By: #### C ADAM #### [facility] [address] [address] [address] Aissatou Vásquez EGFR-NON AF UGANDAN 30 mL/min/1.73m2 Critically low >=60 [facility] Comment on above: Performed By: #### C ADAM #### [facility] [address] [address] [address] Aissatou Vásquez MRI BRAIN WO CONon [...] LEATHA GAVIRIA Date: 2022-07-11 15:11 Normal [facility] CULTURE BLOODon 07-10-2022 Microscopic examination [...] S P Tobramycin S P Normal [facility] Comment on above: Performed By: #### B LDCX2 ####[facility] [address] [address]Dr. Aissatou Vásquez CBC AUTO DIFFon 07-04-2022 BASO # 0.0 103/ul Normal 0.0-0.1 [facility] Comment on above: Performed By: #### L IVER, BMP, HSTROPN #### [facility] [address] [address] [address] Aissatou Vásquez Basophils/100 WBC (Bld) 0.3 % Normal 0.2-2.0 [facility] Comment on above: Performed By: #### L IVER, BMP, HSTROPN #### [facility] [address] [address] [address] Aissatou Vásquez EO # 0.0 103/ul Normal 0.0-0.7 [facility] Comment on above: Performed By: #### L IVER, BMP, HSTROPN #### [facility] [address] [address] [address] Aissatou Vásquez Eosinophils/100 WBC (Bld) 0.6 % Critically low 0.9-7.0 [facility] Comment on above: Performed By: #### L IVER, BMP, HSTROPN #### [facility] [address] [address] [address] Aissatou Vásquez Erythrocyte distribution width (RBC) [Ratio] 13.7 % Normal 11.0-15.0 [facility] Comment on above: Performed By: #### L IVER, BMP, HSTROPN #### [facility] [address] [place] [address] Dr. Aissatou Vásquez Hematocrit (Bld) [Volume fraction] 34.2 % Critically low 42.0-54.0 [facility] Comment on above: Performed By: #### L IVER, BMP, HSTROPN #### [facility] [address] [place] [address] Dr. Aissatou Vásquez Hemoglobin (Bld) [Mass/Vol] 10.7 g/dL Critically low 14.0-18.0 [facility] Comment on above: Performed By: #### L IVER, BMP, HSTROPN #### [facility] [address] [place] [address] Dr. Aissatou Vásquez IG # 0.02 10e3/ul Normal 0.00-0.03 [facility] Comment on above: Performed By: #### L IVER, BMP, HSTROPN #### [facility] [address] [place] [address] Dr. Aissatou Vásquez IG % 0.3 % Normal 0.0-0.5 [facility] Comment on above: Performed By: #### L IVER, BMP, HSTROPN #### [facility] [address] [place] [address] Dr. Aissatou Vásquez LYMPH # 1.7 103/ul Normal 1.2-3.8 [facility] Comment on above: Performed By: #### L IVER, BMP, HSTROPN #### [facility] [address] [place] [address] Dr. Aissatou Vásquez Lymphocytes/100 WBC (Bld) 25.6 % Normal 20.5-60.0 [facility] Comment on above: Performed By: #### L IVER, BMP, HSTROPN #### [facility] [address] [place] [address] Dr. Aissatou Vásquez MANUAL DIFF REQ NO Normal [facility] Comment on above: Performed By: #### L IVER, BMP, HSTROPN #### [facility] [address] [place] [address] Dr. Aissatou Vásquez MCH (RBC) [Entitic mass] 29.6 pg Normal 25.9-34.0 [facility] Comment on above: Performed By: #### L IVER, BMP, HSTROPN #### [facility] [address] [place] [address] Dr. Aissatou Vásquez MCHC (RBC) [Mass/Vol] 31.3 g/dL Normal 29.9-35.2 [facility] Comment on above: Performed By: #### L IVER, BMP, HSTROPN #### [facility] [address] [place] [address] Dr. Aissatou Vásquez MCV (RBC) [Entitic vol] 94.5 fL Critically high 80.0-94.0 [facility] Comment on above: Performed By: #### L IVER, BMP, HSTROPN #### [facility] [address] [place] [address] Dr. Aissatou Vásquez MONO # 0.7 103/ul Normal 0.3-0.8 [facility] Comment on above: Performed By: #### L IVER, BMP, HSTROPN #### [facility] [address] [place] [address] Dr. Aissatou Vásquez Monocytes/100 WBC (Bld) 11.2 % Normal 1.7-12.0 [facility] Comment on above: Performed By: #### L IVER, BMP, HSTROPN #### [facility] [address] [place] [address] Dr. Aissatou Vásquez NEUT # 4.0 103/ul Normal 1.4-6.5 [facility] Comment on above: Performed By: #### L IVER, BMP, HSTROPN #### [facility] [address] [place] [address] Dr. Aissatou Vásquez Neutrophils/100 WBC (Bld) 62.0 % Normal 43.0-75.0 [facility] Comment on above: Performed By: #### L IVER, BMP, HSTROPN #### [facility] [address] [place] [address] Dr. Aissatou Vásquez Platelet mean volume (Bld) [Entitic vol] 10.4 fL Normal 9.5-13.5 [facility] Comment on above: Performed By: #### L IVER, BMP, HSTROPN #### [facility] [address] [place] [address] Dr. Aissatou Vásquez PLT 134 103/ul Critically low 150-450 [facility] Comment on above: Performed By: #### L IVER, BMP, HSTROPN #### [facility] [address] [place] [address] Dr. Aissatou Vásquez RBC 3.62 106/ul Critically low 4.70-6.10 [facility] Comment on above: Performed By: #### L IVER, BMP, HSTROPN #### [facility] [address] [place] [address] Dr. Aissatou Vásquez WBC 6.5 103/ul Normal 4.0-11.0 [facility] Comment on above: Performed By: #### L IVFRANTZ, BMP, HSTROPN #### [facility] [address] [place] [address] Dr. Aissatou Váqsuez CPKon 07-04-2022 CK [Catalytic activity/Vol] 149 U/L Normal 39-308 [facility] Comment on above: Performed By: #### L IVER, BMP, HSTROPN #### [facility] [address] [place] [address] Dr. Aissatou Vásquez MAGNESIUMon 07-04-2022 Magnesium [Mass/Vol] 1.7 mg/dL Critically low 1.8-2.4 [facility] Comment on above: Performed By: #### L IVER, BMP, HSTROPN #### [facility] [address] [place] [address] Dr. Aissatou Vásquez PHOSPHORUSon 07-04-2022 Phosphate [Mass/Vol] 3.6 mg/dL Normal 2.6-4.7 [facility] Comment on above: Performed By: #### L IVER, BMP, HSTROPN #### [facility] [address] [address] [address] Aissatou Vásquez PROF 14(COMP METB)on 022 Albumin [Mass/Vol] 2.8 g/dL Critically low 3.4-5.0 [facility] Comment on above: Performed By: #### L IVER, BMP, HSTROPN #### [facility] [address] [place] [address] Dr. Aissatou Vásquez Albumin/Globulin [Mass ratio] 0.9 {ratio} Normal [facility] Comment on above: Performed By: #### L IVER, BMP, HSTROPN #### [facility] [address] [place] [address] Dr. Aissatou Vásquez ALP [Catalytic activity/Vol] 86 U/L Normal 46-116 [facility] Comment on above: Performed By: #### L IVER, BMP, HSTROPN #### [facility] [address] [place] [address] Dr. Aissatou Vásquez ALT [Catalytic activity/Vol] 50 U/L Normal 16-63 [facility] Comment on above: Performed By: #### L IVER, BMP, HSTROPN #### [facility] [address] [place] [address] Dr. Aissatou Vásquez Anion gap [Moles/Vol] 11.6 mmol/L Normal [facility] Comment on above: Performed By: #### L IVER, BMP, HSTROPN #### [facility] [address] [place] [address] Dr. Aissatou Vásquez AST [Catalytic activity/Vol] 41 U/L Critically high 15-37 [facility] Comment on above: Performed By: #### L IVER, BMP, HSTROPN #### [facility] [address] [place] [address] Dr. Aissatou Vásquez Bilirubin [Mass/Vol] 0.4 mg/dL Normal 0.2-1.0 [facility] Comment on above: Performed By: #### L IVER, BMP, HSTROPN #### [facility] [address] [address] [address] Aissatou Vásquez Calcium [Mass/Vol] 8.7 mg/dL Normal 8.5-10.1 [facility] Comment on above: Performed By: #### L IVER, BMP, HSTROPN #### [facility] [address] [place] [address] Dr. Aissatou Vásquez Chloride [Moles/Vol] 106 mmol/L Normal 98-107 [facility] Comment on above: Performed By: #### L IVER, BMP, HSTROPN #### [facility] [address] [place] [address] Dr. Aissatou Vásquez CO2 [Moles/Vol] 27.0 mmol/L Normal 21.0-32.0 [facility] Comment on above: Performed By: #### L IVER, BMP, HSTROPN #### [facility] [address] [place] [address] Dr. Aissatou Vásquez Creatinine [Mass/Vol] 1.99 mg/dL Critically high 0.70-1.30 [facility] Comment on above: Performed By: #### L IVER, BMP, HSTROPN #### [facility] [address] [place] [address] Dr. Aissatou Vásquez EGFR-AF UGANDAN 39 mL/min/1.73m2 Critically low >=60 [facility] Comment on above: Performed By: #### L IVER, BMP, HSTROPN #### [facility] [address] [place] [address] Dr. Aissatou Vásquez EGFR-NON AF UGANDAN 32 mL/min/1.73m2 Critically low >=60 [facility] Comment on above: Performed By: #### L IVER, BMP, HSTROPN #### [facility] [address] [place] [address] Dr. Aissatou Vásquez Globulin (S) [Mass/Vol] 3.1 g/dL Normal [facility] Comment on above: Performed By: #### L IVER, BMP, HSTROPN #### [facility] [address] [address] [address] Aissatou Vásquez Glucose [Mass/Vol] 93 mg/dL Normal 74-106 [facility] Comment on above: Performed By: #### L IVER, BMP, HSTROPN #### [facility] [address] [place] [address] Dr. Aissatou Vásquez Potassium [Moles/Vol] 4.6 mmol/L Normal 3.5-5.1 [facility] Comment on above: Performed By: #### L IVER, BMP, HSTROPN #### [facility] [address] [place] [address] Dr. Aissatou Vásquez Protein [Mass/Vol] 5.9 g/dL Critically low 6.4-8.2 [facility] Comment on above: Performed By: #### L IVER, BMP, HSTROPN #### [facility] [address] [place] [address] Dr. Aissatou Vásquez Sodium [Moles/Vol] 140 mmol/L Normal 136-145 [facility] Comment on above: Performed By: #### L IVER, BMP, HSTROPN #### [facility] [address] [place] [address] Dr. Aissatou Vásquez Urea nitrogen [Mass/Vol] 50.0 mg/dL Critically high 7.0-18.0 [facility] Comment on above: Performed By: #### L IVER, BMP, HSTROPN #### [facility] [address] [place] [address] Dr. Aissatou Vásquez Urea nitrogen/Creatinine [Mass ratio] 25.1 mg/mg Normal [facility] Comment on above: Performed By: #### L IVER, BMP, HSTROPN #### [facility] [address] [place] [address] Dr. Aissatou Vásquez PROTIMEon 07-04-2022 INR Coag (PPP) [Relative time] 1.05 {INR} Normal [facility] Comment on above: Performed By: #### C ADAM #### [facility] [address] [place] [address] Dr. Aissatou Vásqeuz INR GUIDELINES SEE BELOW Normal [facility] Comment on above: Result Comment: ELISABETH RED INR: 2.0 - 3.0 CONDITIONS NOT LISTED BELOW 2.5 - 3.5 FOR PROSTHETIC HEART VALVE REPLACEMENT 2.5 - 3.5 RECURRENT THROMBOSIS Performed By: #### C ADAM #### [facility] [address] [place] [address] Dr. Aissatou Vásquez PT Coag (PPP) [Time] 11.3 s Normal 9.0-11.6 [facility] Comment on above: Performed By: #### C ADAM #### [facility] [address] [place] [address] Dr. Aissatou Vásquez CBC AUTO DIFFon 07-03-2022 BASO # 0.0 103/ul Normal 0.0-0.1 [facility] Comment on above: Performed By: #### L IVER, BMP, HSTROPN #### [facility] [address] [place] [address] Dr. Aissatou Vásquez Basophils/100 WBC (Bld) 0.3 % Normal 0.2-2.0 [facility] Comment on above: Performed By: #### L IVER, BMP, HSTROPN #### [facility] [address] [place] [address] Dr. Aissatou Vásquez EO # 0.0 103/ul Normal 0.0-0.7 [facility] Comment on above: Performed By: #### L IVER, BMP, HSTROPN #### [facility] [address] [place] [address] Dr. Aissatou Vásquez Eosinophils/100 WBC (Bld) 0.3 % Critically low 0.9-7.0 [facility] Comment on above: Performed By: #### L IVER, BMP, HSTROPN #### [facility] [address] [place] [address] Dr. Aissatou Vásquez Erythrocyte distribution width (RBC) [Ratio] 13.8 % Normal 11.0-15.0 [facility] Comment on above: Performed By: #### L IVER, BMP, HSTROPN #### [facility] [address] [place] [address] Dr. Aissatou Vásquez Hematocrit (Bld) [Volume fraction] 31.7 % Critically low 42.0-54.0 [facility] Comment on above: Performed By: #### L IVER, BMP, HSTROPN #### [facility] [address] [place] [address] Dr. Aissatou Vásquez Hemoglobin (Bld) [Mass/Vol] 10.2 g/dL Critically low 14.0-18.0 [facility] Comment on above: Performed By: #### L IVER, BMP, HSTROPN #### [facility] [address] [place] [address] Dr. Aissatou Vásquez IG # 0.02 10e3/ul Normal 0.00-0.03 [facility] Comment on above: Performed By: #### L IVER, BMP, HSTROPN #### [facility] [address] [place] [address] Dr. Aissatou Vásquez IG % 0.3 % Normal 0.0-0.5 [facility] Comment on above: Performed By: #### L IVER, BMP, HSTROPN #### [facility] [address] [place] [address] Dr. Aissatou Vásquez LYMPH # 1.5 103/ul Normal 1.2-3.8 [facility] Comment on above: Performed By: #### L IVER, BMP, HSTROPN #### [facility] [address] [place] [address] Dr. Aissatou Vásquez Lymphocytes/100 WBC (Bld) 20.3 % Critically low 20.5-60.0 [facility] Comment on above: Performed By: #### L IVER, BMP, HSTROPN #### [facility] [address] [place] [address] Dr. Aissatou Vásquez MANUAL DIFF REQ NO Normal [facility] Comment on above: Performed By: #### L IVER, BMP, HSTROPN #### [facility] [address] [place] [address] Dr. Aissatou Vásquez MCH (RBC) [Entitic mass] 30.3 pg Normal 25.9-34.0 [facility] Comment on above: Performed By: #### L IVER, BMP, HSTROPN #### [facility] [address] [place] [address] Dr. Aissatou Vásquez MCHC (RBC) [Mass/Vol] 32.2 g/dL Normal 29.9-35.2 [facility] Comment on above: Performed By: #### L IVER, BMP, HSTROPN #### [facility] [address] [place] [address] Dr. Aissatou Vásquez MCV (RBC) [Entitic vol] 94.1 fL Critically high 80.0-94.0 [facility] Comment on above: Performed By: #### L IVER, BMP, HSTROPN #### [facility] [address] [place] [address] Dr. Aissatou Vásquez MONO # 0.7 103/ul Normal 0.3-0.8 [facility] Comment on above: Performed By: #### L IVER, BMP, HSTROPN #### [facility] [address] [place] [address] Dr. Aissatou Vásquez Monocytes/100 WBC (Bld) 9.9 % Normal 1.7-12.0 [facility] Comment on above: Performed By: #### L IVER, BMP, HSTROPN #### [facility] [address] [place] [address] Dr. Aissatou Vásquez NEUT # 4.9 103/ul Normal 1.4-6.5 [facility] Comment on above: Performed By: #### L IVER, BMP, HSTROPN #### [facility] [address] [place] [address] Dr. Aissatou Vásquez Neutrophils/100 WBC (Bld) 68.9 % Normal 43.0-75.0 [facility] Comment on above: Performed By: #### L IVER, BMP, HSTROPN #### [facility] [address] [place] [address] Dr. Aissatou Vásquez Platelet mean volume (Bld) [Entitic vol] 10.7 fL Normal 9.5-13.5 [facility] Comment on above: Performed By: #### L IVDHARA LANDRY, HSTROPN #### [facility] [address] [address] [address] Aissatou Vásquez PLT 141 103/ul Critically low 150-450 [facility] Comment on above: Performed By: #### L IVDHARA LANDRY, HSTROPN #### [facility] [address] [address] [address] Aissatou Vásquez RBC 3.37 106/ul Critically low 4.70-6.10 [facility] Comment on above: Performed By: #### L IVDHARA LANDRY, HSTROPN #### [facility] [address] [place] [address] Dr. Aissatou Vásquez WBC 7.1 103/ul Normal 4.0-11.0 [facility] Comment on above: Performed By: #### L DHARA WAITE, HSTROPN #### [facility] [address] [address] [address] Aissatou Vásquez CPKon 07-03-2022 CK [Catalytic activity/Vol] 331 U/L Critically high 39-308 [facility] Comment on above: Performed By: #### L DHARA WAITE, HSTROPN #### [facility] [address] [place] [address] [address] Vás[address] ABD/PELVIS WO CONon [...] STEPHEN ROUSE Date: 2022-07-03 11:06 Normal [facility] CULTURE BLOODon 07-03-2022 Microscopic examination of blood, culture Culture Observations: NO GROWTH AT 5 DAYS. Normal [facility] Comment on above: Performed By: ###Landon Grewal LDCX2 ####[facility] [address] [address]Dr. Aissatou Vásquez Microscopic examination of blood, culture Culture Observations: NO GROWTH AT 5 DAYS. Normal [facility] Comment on above: Performed By: #### Uri [id number] ####[facility] [address] [address]Dr. Aissatou Vásquez MAGNESIUMon 07-03-2022 Magnesium [Mass/Vol] 1.8 mg/dL Normal 1.8-2.4 [facility] Comment on above: Performed By: #### L DHARA WAITE, HSTROPN #### [facility] [address] [address] [address] Aissatou Vásquez PHOSPHORUSon 07-03-2022 Phosphate [Mass/Vol] 4.0 mg/dL Normal 2.6-4.7 [facility] Comment on above: Performed By: #### DHARA KONG, HSTROPN #### [facility] [address] [address] [address] Aissatou Vásquez POINT OF CARE GLUCOSEon 06-06 Glucose [Mass/Vol] 77 mg/dL Normal 74-106 [facility] Comment on above: Performed By: #### C ADAM #### [facility] [address] [address] [address] Aissatou Vásquez PROF 14(COMP METB)on 022 Albumin [Mass/Vol] 2.6 g/dL Critically low 3.4-5.0 [facility] Comment on above: Performed By: #### L IVDHARA LANDRY, HSTROPN #### [facility] [address] [place] [address] Dr. Aissatou Vásquez Albumin/Globulin [Mass ratio] 0.9 {ratio} Normal [facility] Comment on above: Performed By: #### L IVDHARA LANDRY, HSTROPN #### [facility] [address] [place] [address] Dr. Aissatou Vásquez ALP [Catalytic activity/Vol] 81 U/L Normal 46-116 [facility] Comment on above: Performed By: #### L DHARA WAITE, HSTROPN #### [facility] [address] [place] [address] Dr. Aissatou Vásquez ALT [Catalytic activity/Vol] 46 U/L Normal 16-63 [facility] Comment on above: Performed By: #### L DHARA WAITE, HSTROPN #### [facility] [address] [place] [address] Dr. Aissatou Vásquez Anion gap [Moles/Vol] 11.9 mmol/L Normal [facility] Comment on above: Performed By: #### L IVFRATNZ BMP, HSTROPN #### [facility] [address] [place] [address] Dr. Aissatou Vásquez AST [Catalytic activity/Vol] 45 U/L Critically high 15-37 [facility] Comment on above: Performed By: #### L IVDHARA LANDRY, HSTROPN #### [facility] [address] [place] [address] Dr. Aissatou Vásquez Bilirubin [Mass/Vol] 0.2 mg/dL Normal 0.2-1.0 [facility] Comment on above: Performed By: #### L MARIANN BMP, HSTROPN #### [facility] [address] [place] [address] Dr. Aissatou Vásquez Calcium [Mass/Vol] 8.5 mg/dL Normal 8.5-10.1 [facility] Comment on above: Performed By: #### L IVER, BMP, HSTROPN #### [facility] [address] [place] [address] Dr. Aissatou Vásquez Chloride [Moles/Vol] 108 mmol/L Critically high 98-107 [facility] Comment on above: Performed By: #### L IVER, BMP, HSTROPN #### [facility] [address] [place] [address] Dr. Aissatou Vásquez CO2 [Moles/Vol] 25.9 mmol/L Normal 21.0-32.0 [facility] Comment on above: Performed By: #### L IVER, BMP, HSTROPN #### [facility] [address] [place] [address] Dr. Aissatou Vásquez Creatinine [Mass/Vol] 2.34 mg/dL Critically high 0.70-1.30 [facility] Comment on above: Performed By: #### L IVER, BMP, HSTROPN #### [facility] [address] [place] [address] Dr. Aissatou Vásquez EGFR-AF UGANDAN 32 mL/min/1.73m2 Critically low >=60 [facility] Comment on above: Performed By: #### L IVER, BMP, HSTROPN #### [facility] [address] [place] [address] Dr. Aissatou Vásquez EGFR-NON AF UGANDAN 27 mL/min/1.73m2 Critically low >=60 [facility] Comment on above: Performed By: #### L IVER, BMP, HSTROPN #### [facility] [address] [place] [address] Dr. Aissatou Vásquez Globulin (S) [Mass/Vol] 3.0 g/dL Normal [facility] Comment on above: Performed By: #### L IVER, BMP, HSTROPN #### [facility] [address] [address] [address] Aissatou Vásquez Glucose [Mass/Vol] 93 mg/dL Normal 74-106 [facility] Comment on above: Performed By: #### L IVER, BMP, HSTROPN #### [facility] [address] [address] [address] Aissatou Vásquez Potassium [Moles/Vol] 4.8 mmol/L Normal 3.5-5.1 [facility] Comment on above: Performed By: #### L IVER, BMP, HSTROPN #### [facility] [address] [place] [address] Dr. Aissatou Vásquez Protein [Mass/Vol] 5.6 g/dL Critically low 6.4-8.2 [facility] Comment on above: Performed By: #### L IVER, BMP, HSTROPN #### [facility] [address] [place] [address] Dr. Aissatou Vásquez Sodium [Moles/Vol] 141 mmol/L Normal 136-145 [facility] Comment on above: Performed By: #### L IVER, BMP, HSTROPN #### [facility] [address] [place] [address] Dr. Aissatou Vásquez Urea nitrogen [Mass/Vol] 61.0 mg/dL Critically high 7.0-18.0 [facility] Comment on above: Performed By: #### L IVER, BMP, HSTROPN #### [facility] [address] [place] [address] Dr. Aissatou Vásquez Urea nitrogen/Creatinine [Mass ratio] 26.1 mg/mg Normal [facility] Comment on above: Performed By: #### L IVER, BMP, HSTROPN #### [facility] [address] [place] [address] Dr. Aissatou Vásquez PROTIMEon 07-03-2022 INR Coag (PPP) [Relative time] 1.12 {INR} Normal [facility] Comment on above: Performed By: #### C ADAM #### [facility] [address] [address] [address] Aissatou Vásquez INR GUIDELINES SEE BELOW Normal [facility] Comment on above: Result Comment: ELISABETH RED INR: 2.0 - 3.0 CONDITIONS NOT LISTED BELOW 2.5 - 3.5 FOR PROSTHETIC HEART VALVE REPLACEMENT 2.5 - 3.5 RECURRENT THROMBOSIS Performed By: #### C ADAM #### [facility] [address] [address] [address] Aissatou Vásquez PT Coag (PPP) [Time] 12.0 s Critically high 9.0-11.6 [facility] Comment on above: Performed By: #### C ADAM #### [facility] [address] [address] [address] Aissatou Vásquez CBC AUTO DIFFon 07-02-2022 BASO # 0.0 103/ul Normal 0.0-0.1 [facility] Comment on above: Performed By: #### C BC ####[facility] [address] [address]Dr. Aissatou Vásquez Basophils/100 WBC (Bld) 0.1 % Critically low 0.2-2.0 [facility] Comment on above: Performed By: #### C BC ####[facility] [address] [place], [place] [address]Dr. Aissatou Vásquez EO # 0.0 103/ul Normal 0.0-0.7 [facility] Comment on above: Performed By: #### C BC ####[facility] [address] [address]Dr. Aissatou Vásquez Eosinophils/100 WBC (Bld) 0.0 % Critically low 0.9-7.0 [facility] Comment on above: Performed By: #### C BC ####[facility] [address] [place], [place] [address]Dr. Aissatou Vásquez Erythrocyte distribution width (RBC) [Ratio] 13.4 % Normal 11.0-15.0 [facility] Comment on above: Performed By: #### C BC ####[facility] [address] [place], [place] [address]Dr. Aissatou Vásquez Hematocrit (Bld) [Volume fraction] 39.9 % Critically low 42.0-54.0 [facility] Comment on above: Performed By: #### C BC ####[facility] [address] [address]DrBud Vásquez Hemoglobin (Bld) [Mass/Vol] 12.8 g/dL Critically low 14.0-18.0 [facility] Comment on above: Performed By: #### C BC ####[facility] [address] [place], [place] [address]DrBud Vásquez IG # 0.05 10e3/ul Critically high 0.00-0.03 [facility] Comment on above: Performed By: #### C BC ####[facility] [address] [place], [place] [address]DrBud Vásquez IG % 0.4 % Normal 0.0-0.5 [facility] Comment on above: Performed By: #### C BC ####[facility] [address] [place], [place] [address]DrBud Vásquez LYMPH # 0.8 103/ul Critically low 1.2-3.8 [facility] Comment on above: Performed By: #### C BC ####[facility] [address] [place], [place] [address]DrBud Vásquez Lymphocytes/100 WBC (Bld) 7.2 % Critically low 20.5-60.0 [facility] Comment on above: Performed By: #### C BC ####[facility] [address] [place], [place] [address]DrBud Vásquez MANUAL DIFF REQ NO Normal [facility] Comment on above: Performed By: #### C BC ####[facility] [address] [place], [place] [address]DrBud Vásquez MCH (RBC) [Entitic mass] 30.0 pg Normal 25.9-34.0 [facility] Comment on above: Performed By: #### C BC ####[facility] [address] [place], [place] [address]DrBud Vásquez MCHC (RBC) [Mass/Vol] 32.1 g/dL Normal 29.9-35.2 [facility] Comment on above: Performed By: #### C BC ####[facility] [address] [address]DrBud Vásquez MCV (RBC) [Entitic vol] 93.7 fL Normal 80.0-94.0 [facility] Comment on above: Performed By: #### C BC ####[facility] [address] [place], [place] [address]DrBud Vásquez MONO # 0.8 103/ul Normal 0.3-0.8 [facility] Comment on above: Performed By: #### C BC ####[facility] [address] [place], [place] [address]DrBud Vásquez Monocytes/100 WBC (Bld) 6.8 % Normal 1.7-12.0 [facility] Comment on above: Performed By: #### C BC ####[facility] [address] [place], [place] [address]Dr. Aissatou Vásquez NEUT # 9.8 103/ul Critically high 1.4-6.5 [facility] Comment on above: Performed By: #### C BC ####[facility] [address] [place], [place] [address]DrBud Vásquez Neutrophils/100 WBC (Bld) 85.5 % Critically high 43.0-75.0 [facility] Comment on above: Performed By: #### C BC ####[facility] [address] [place], [place] [address]DrBud Vásquez Platelet mean volume (Bld) [Entitic vol] 10.8 fL Normal 9.5-13.5 [facility] Comment on above: Performed By: #### C BC ####[facility] [address] [place], [place] [address]DrBud Vásquez PLT 170 103/ul Normal 150-450 [facility] Comment on above: Performed By: #### C BC ####[facility] [address] [place], [place] [address]DrBud Vásquez RBC 4.26 106/ul Critically low 4.70-6.10 [facility] Comment on above: Performed By: #### C BC ####[facility] [address] [place], [place] [address]KsBud Katsarah Fahad WBC 11.4 103/ul Critically high 4.0-11.0 [facility] Comment on above: Performed By: #### C BC ####[facility] [address] [place], [place] [address]MlBud Vásquez CKMBon 07-02-2022 CK.MB [Mass/Vol] 80.91 ng/mL Critically high <=3.60 [facility] Comment on above: Performed By: #### L DHARA WAITE, HSTROPN #### [facility] [address] [address] [address] Aissatou Vásquez CPKon 07-02-2022 CK [Catalytic activity/Vol] 915 U/L Critically high 39-308 [facility] Comment on above: Performed By: #### L IVFRANTZ BMP, HSTROPN #### [facility] [address] [address] [address] Aissatou Vásquez ECHOCARDIO M/2D COMPLETEon 1 09-02-2021 ECHOCARDIO M/2D COMPLETE Patient: LEANNA NELSON Exam Date: 07/02/2022 : 1940 Gender:M Ordering : SHAIKH Delphine RODRIGUEZ . Admission #: [id number] Family : DR PIPE HOPKINS . Order #: [id number] CLICK HERE TO VIEW EXAM ECHOCARDIOGRAM REPORT [...] on 07/08/2022 at 09:55 Normal [facility] MAGNESIUMon 07-02-2022 Magnesium [Mass/Vol] 1.9 mg/dL Normal 1.8-2.4 [facility] Comment on above: Performed By: #### L DHARA WAITE, HSTROPN #### [facility] [address] [place] [address] Dr. Aissatou Vásquez MYOGLOBINon 07-02-2022 SARAH 1312 ng/mL Critically high 16-96 [facility] Comment on above: Performed By: #### Adriana WAITE BMP, HSTROPN #### [facility] [address] [address] [address] Aissatou Vásquez PHOSPHORUSon 07-02-2022 Phosphate [Mass/Vol] 6.0 mg/dL Critically high 2.6-4.7 [facility] Comment on above: Performed By: #### L DHARA WAITE, HSTROPN #### [facility] [address] [place] [address] Dr. Aissatou Vásquez POINT OF CARE GLUCOSEon 06-06 Glucose [Mass/Vol] 78 mg/dL Normal 74-106 [facility] Comment on above: Performed By: #### C ADAM #### [facility] [address] [address] [address] Aissatou Vásquez Glucose [Mass/Vol] 104 mg/dL Normal 74-106 [facility] Comment on above: Performed By: #### P OCGLUC ####[facility] [address] [id number]. Aissatou Vásquez Glucose [Mass/Vol] 83 mg/dL Normal 74-106 [facility] Comment on above: Performed By: #### L IVER, BMP, HSTROPN #### [facility] [address] [address] [address] Aissatou Vásquez Glucose [Mass/Vol] 100 mg/dL Normal 74-106 [facility] Comment on above: Performed By: #### C ADAM #### [facility] [address] [address] [address] Aissatou Vásquez Glucose [Mass/Vol] 73 mg/dL Critically low 74-106 [facility] Comment on above: Performed By: #### P OCGLUC ####[facility] [address] [address]Dr. Aissatou Vásquez PROF 14(COMP METB)on 022 Albumin [Mass/Vol] 3.3 g/dL Critically low 3.4-5.0 [facility] Comment on above: Performed By: #### L IVER, BMP, HSTROPN #### [facility] [address] [address] [address] Aissatou Vásquez Albumin/Globulin [Mass ratio] 1.0 {ratio} Normal [facility] Comment on above: Performed By: #### L IVER, BMP, HSTROPN #### [facility] [address] [address] [address] Aissatou Vásquez ALP [Catalytic activity/Vol] 114 U/L Normal 46-116 [facility] Comment on above: Performed By: #### L IVER, BMP, HSTROPN #### [facility] [address] [address] [address] Aissatou Vásquez ALT [Catalytic activity/Vol] 48 U/L Normal 16-63 [facility] Comment on above: Performed By: #### L IVER, BMP, HSTROPN #### [facility] [address] [address] [address] Aissatou Vásquez Anion gap [Moles/Vol] 17.3 mmol/L Normal [facility] Comment on above: Performed By: #### L IVER, BMP, HSTROPN #### [facility] [address] [place] [address] Dr. Aissatou Vásquez AST [Catalytic activity/Vol] 68 U/L Critically high 15-37 [facility] Comment on above: Performed By: #### L IVER, BMP, HSTROPN #### [facility] [address] [address] [address] Aissatou Vásquez Bilirubin [Mass/Vol] 0.5 mg/dL Normal 0.2-1.0 [facility] Comment on above: Performed By: #### L IVER, BMP, HSTROPN #### [facility] [address] [place] [address] Dr. Aissatou Vásquez Calcium [Mass/Vol] 8.9 mg/dL Normal 8.5-10.1 [facility] Comment on above: Performed By: #### L IVER, BMP, HSTROPN #### [facility] [address] [place] [address] Dr. Aissatou Vásquez Chloride [Moles/Vol] 109 mmol/L Critically high 98-107 [facility] Comment on above: Performed By: #### L IVER, BMP, HSTROPN #### [facility] [address] [place] [address] Dr. Aissatou Vásquez CO2 [Moles/Vol] 22.8 mmol/L Normal 21.0-32.0 [facility] Comment on above: Performed By: #### L IVER, BMP, HSTROPN #### [facility] [address] [place] [address] Dr. Aissatou Vásquez Creatinine [Mass/Vol] 1.89 mg/dL Critically high 0.70-1.30 [facility] Comment on above: Performed By: #### L IVER, BMP, HSTROPN #### [facility] [address] [address] [address] Aissatou Vásquez EGFR-AF UGANDAN 41 mL/min/1.73m2 Critically low >=60 [facility] Comment on above: Result Comment: Prev iously reported as: (blank) On 07/02/2022 05:50 By KD3 Performed By: #### L IVER, BMP, HSTROPN #### [facility] [address] [place] [address] Dr. Aissatou Vásquez EGFR-NON AF UGANDAN 34 mL/min/1.73m2 Critically low >=60 [facility] Comment on above: Result Comment: Prev iously reported as: (blank) On 07/02/2022 05:50 By KD3 Performed By: #### L IVER, BMP, HSTROPN #### [facility] [address] [place] [address] Dr. Aissatou Vásquez Globulin (S) [Mass/Vol] 3.4 g/dL Normal [facility] Comment on above: Performed By: #### L IVER, BMP, HSTROPN #### [facility] [address] [place] [address] Dr. Aissatou Vásquez Glucose [Mass/Vol] 86 mg/dL Normal 74-106 [facility] Comment on above: Performed By: #### L IVER, BMP, HSTROPN #### [facility] [address] [place] [address] Dr. Aissatou Vásquez Potassium [Moles/Vol] 5.1 mmol/L Normal 3.5-5.1 [facility] Comment on above: Performed By: #### L IVER, BMP, HSTROPN #### [facility] [address] [address] [address] Aissatou Vásquez Protein [Mass/Vol] 6.7 g/dL Normal 6.4-8.2 [facility] Comment on above: Performed By: #### L IVER, BMP, HSTROPN #### [facility] [address] [place] [address] Dr. Aissatou Vásquez Sodium [Moles/Vol] 144 mmol/L Normal 136-145 [facility] Comment on above: Performed By: #### L IVDHARA LANDRY, HSTROPN #### [facility] [address] [place] [address] Dr. Aissatou Vásquez Urea nitrogen [Mass/Vol] 55.0 mg/dL Critically high 7.0-18.0 [facility] Comment on above: Performed By: #### L IVFRANTZ BMP, HSTROPN #### [facility] [address] [place] [address] Dr. Aissatou Vásquez Urea nitrogen/Creatinine [Mass ratio] 29.1 mg/mg Normal [facility] Comment on above: Performed By: #### L IVDHARA LANDRY, HSTROPN #### [facility] [address] [place] [address] Dr. Aissatou Vásquez PROTIMEon 07-02-2022 INR Coag (PPP) [Relative time] 1.13 {INR} Normal [facility] Comment on above: Performed By: #### L IVDHARA LANDRY, HSTROPN #### [facility] [address] [place] [address] Dr. Aissatou Vásquez INR GUIDELINES SEE BELOW Normal [facility] Comment on above: Result Comment: ELISABETH RED INR: 2.0 - 3.0 CONDITIONS NOT LISTED BELOW 2.5 - 3.5 FOR PROSTHETIC HEART VALVE REPLACEMENT 2.5 - 3.5 RECURRENT THROMBOSIS Performed By: #### L IVDHARA LANDRY, HSTROPN #### [facility] [address] [place] [address] Dr. Aissatou Vásquez PT Coag (PPP) [Time] 12.1 s Critically high 9.0-11.6 [facility] Comment on above: Performed By: #### L IVDHARA LANDRY, HSTROPN #### [facility] [address] [place] [address] Dr. Aissatou Vásquez BLOOD CULTURE ID PANELon A. baumannii Not detected Normal NOT DETECTED [facility] Comment on above: Performed By: #### C ADAM #### [facility] [address] [place] [address] Dr. Aissatou Vásquez Bacteriodes fragilis Not detected Normal NOT DETECTED [facility] Comment on above: Performed By: #### C ADAM #### [facility] [address] [place] [address] Dr. Aissatou PEREZD CONTROLS PASSED Normal [facility] Comment on above: Performed By: #### C ADAM #### [facility] [address] [place] [address] Dr. Aissatou PEREZDBTHD BLOOD CULTURE BOTTLE INFORMATION [facility] Comment on above: Performed By: #### C ADAM #### [facility] [address] [place] [address] Dr. Aissatou Vásquez BCIDHD1 ANTIMICROBIAL RESISTANCE GENES [facility] Comment on above: Performed By: #### C ADAM #### [facility] [address] [place] [address] Dr. Aissatou PEREZDHD2 SEE BELOW [facility] Comment on above: Result Comment: Note : Antimicrobial resitance can occur via multiple mechanisms. A Not Detected result for the [employer] antomicrobial resistance gene assays does not indicate antimicrobial susceptibility. Subculturing is required for species identification and susceptibility testing of isolates. Performed By: #### C ADAM #### [facility] [address] [place] [address] Dr. Aissatou Vásquez BCIDHD3 Positive [facility] Comment on above: Performed By: #### C ADAM #### [facility] [address] [place] [address] Dr. Aissatou Vásquez BCIDHD4 Negative [facility] Comment on above: Performed By: #### C ADAM #### [facility] [address] [place] [address] Dr. Aissatou PEREZDHD5 YEAST [facility] Comment on above: Performed By: #### C ADAM #### [facility] [address] [place] [address] Dr. Aissatou Vásquze Bottle Set: Set 2 [facility] Comment on above: Performed By: #### C ADAM #### [facility] [address] [place] [address] Dr. Aissatou Vásquez Bottle: Pediatric Normal [facility] Comment on above: Performed By: #### C ADAM #### [facility] [address] [place] [address] Dr. Aissatou Vásquez C. neoformans/gattii Not detected Normal NOT DETECTED [facility] Comment on above: Performed By: #### C ADAM #### [facility] [address] [place] [address] Dr. Aissatou Vásquez Soraya albicans Not detected Normal NOT DETECTED [facility] Comment on above: Performed By: #### C ADAM #### [facility] [address] [place] [address] Dr. Aissatou Vásquez Soraya auris Not detected Normal NOT DETECTED [facility] Comment on above: Performed By: #### C ADAM #### [facility] [address] [place] [address] Dr. Aissatou Vásquez Soraya glabrata Not detected Normal NOT DETECTED [facility] Comment on above: Performed By: #### C ADAM #### [facility] [address] [place] [address] Dr. Aissatou Vásquez Soraya Krusei Not detected Normal NOT DETECTED [facility] Comment on above: Performed By: #### C ADAM #### [facility] [address] [place] [address] Dr. Aissatou Vásquez Soraya Parapsilosis Not detected Normal NOT DETECTED [facility] Comment on above: Performed By: #### C ADAM #### [facility] [address] [place] [address] Dr. Aissatou Vásquez Soraya Tropicalis Not detected Normal NOT DETECTED [facility] Comment on above: Performed By: #### C ADAM #### [facility] [address] [place] [address] Dr. Aissatou Vásquez CTX-M Resistant Gene Not detected Normal NOT DETECTED [facility] Comment on above: Performed By: #### C ADAM #### [facility] [address] [place] [address] Dr. Aissatou Vásquez E. Cloacae complex Not detected Normal NOT DETECTED [facility] Comment on above: Performed By: #### C ADAM #### [facility] [address] [place] [address] Dr. Aissatou Vásquez E. faecalis Not detected Normal NOT DETECTED [facility] Comment on above: Performed By: #### C ADAM #### [facility] [address] [place] [address] Dr. Aissatou Vásquez E. faecium Not detected Normal NOT DETECTED [facility] [facility] Comment on above: Performed By: #### C ADAM #### [facility] [address] [place] [address] Dr. Aissatou Vásquez Enterobacteriaceae Detected Critically abnormal NOT DETECTED [facility] Comment on above: Performed By: #### C ADAM #### [facility] [address] [place] [address] Dr. iAssatou Vásquez Escherichia coli Not detected Normal NOT DETECTED [facility] Comment on above: Performed By: #### C ADAM #### [facility] [address] [place] [address] Dr. Aissatou Vásquez H. influenzae Not detected Normal NOT DETECTED [facility] Comment on above: Performed By: #### C ADAM #### [facility] [address] [place] [address] Dr. Aissatou Vásquez IMP Resistant Gene Not detected Normal NOT DETECTED [facility] Comment on above: Performed By: #### C ADAM #### [facility] [address] [place] [address] Dr. Aissatou Vásquez K. oxytoca Not detected Normal NOT DETECTED [facility] Comment on above: Performed By: #### C ADAM #### [facility] [address] [place] [address] Dr. Aissatou Vásquez K. pneumoniae Not detected Normal NOT DETECTED [facility] Comment on above: Performed By: #### C AADM #### [facility] [address] [place] [address] Dr. Aissatou Vásquez Klebsiella aerogenes Not detected Normal NOT DETECTED [facility] Comment on above: Performed By: #### C ADAM #### [facility] [address] [place] [address] Dr. Aissatou Vásquez KPC Resistant Gene Not detected Normal NOT DETECTED [facility] Comment on above: Performed By: #### C ADAM #### [facility] [address] [place] [address] Dr. Aissatou Vásquez List. monocytogenes Not detected Normal NOT DETECTED [facility] Comment on above: Performed By: #### C ADAM #### [facility] [address] [place] [address] Dr. Aissatou Vásquez Mcr-1 Resistant Gene Not Applicable Normal NOT DETECTE D [facility] Comment on above: Performed By: #### C ADAM #### [facility] [address] [place] [address] Dr. Aissatou Vásquez mecA/C Not Applicable Normal NOT DETECTED [facility] Comment on above: Performed By: #### C ADAM #### [facility] [address] [place] [address] Dr. Aissatou Vásquez mecA/C MREJ Not Applicable Normal NOT DETECTED [facility] Comment on above: Performed By: #### C ADAM #### [facility] [address] [place] [address] Dr. Aissatou Vásquez N. meningitidis Not detected Normal NOT DETECTED [facility] Comment on above: Performed By: #### C ADAM #### [facility] [address] [place] [address] Dr. Aissatou Vásquez NDM Resistant Gene Not detected Normal NOT DETECTED [facility] Comment on above: Performed By: #### C ADAM #### [facility] [address] [place] [address] Dr. Aissatou Vásquez Oxa-48-like Not detected Normal NOT DETECTED [facility] Comment on above: Performed By: #### C ADAM #### [facility] [address] [place] [address] Dr. Aissatou Vásquez Proteus Not detected Normal NOT DETECTED [facility] Comment on above: Performed By: #### C ADAM #### [facility] [address] [place] [address] Dr. Aissatou Vásquez Pseud. aeruginosa Not detected Normal NOT DETECTED [facility] Comment on above: Performed By: #### C ADAM #### [facility] [address] [place] [address] Dr. Aissatou Vásquez S. maltophilia Not detected Normal NOT DETECTED [facility] Comment on above: Performed By: #### C ADAM #### [facility] [address] [place] [address] Dr. Aissatou Vásquez Salmonella Not detected Normal NOT DETECTED [facility] Comment on above: Performed By: #### C ADAM #### [facility] [address] [place] [address] Dr. Aissatou Vásquez Seratia marcescens Not detected Normal NOT DETECTED [facility] Comment on above: Performed By: #### C ADAM #### [facility] [address] [place] [address] Dr. Aissatou Vásquez Site: IV Normal [facility] Comment on above: Performed By: #### C ADAM #### [facility] [address] [place] [address] Dr. Aissatou Vásquez Staph. aureus Not detected Normal NOT DETECTED [facility] Comment on above: Performed By: #### C ADAM #### [facility] [address] [place] [address] Dr. Aissatou Vásquez Staph. epidermidis Not detected Normal NOT DETECTED [facility] Comment on above: Performed By: #### C ADAM #### [facility] [address] [place] [address] Dr. Aissatou Vásquez Staph. lugdunensis Not detected Normal NOT DETECTED [facility] Comment on above: Performed By: #### C ADAM #### [facility] [address] [place] [address] Dr. Aissatou Vásquez Staphylococcus Not detected Normal NOT DETECTED [facility] Comment on above: Performed By: #### C ADAM #### [facility] [address] [place] [address] Dr. Aissatou Vásquez Strep. agalactiae Not detected Normal NOT DETECTED [facility] Comment on above: Performed By: #### C ADAM #### [facility] [address] [address] [address] Aissatou Vásquez Strep. pneumoniae Not detected Normal NOT DETECTED [facility] Comment on above: Performed By: #### C ADAM #### [facility] [address] [address] [address] Aissatou Vásquez Strep. pyogenes Not detected Normal NOT DETECTED [facility] Comment on above: Performed By: #### C ADAM #### [facility] [address] [address] [address] Aissatou Vásquez Streptococcus Not detected Normal NOT DETECTED [facility] Comment on above: Performed By: #### C ADAM #### [facility] [address] [place] [address] Dr. Aissatou Vásquez Akila/Uri Resist. Gene Not Applicable Normal NOT DETECTED [facility] Comment on above: Performed By: #### C ADAM #### [facility] [address] [address] [address] Aissatou Vásquez VIM Resistant Gene Not detected Normal NOT DETECTED [facility] Comment on above: Performed By: #### C ADAM #### [facility] [address] [address] [address] Aissatou Vásquez CBC W MANUAL DIFFon 07-01-20 22 ATYPICAL LYMPH # Normal [facility] Comment on above: Performed By: #### C BCMAN ####[facility] [address] [address]DrBud Vásquez ATYPICAL LYMPH % Normal [facility] Comment on above: Performed By: #### C BCMAN ####[facility] [address] [place] [address]DrBud Vásquez BAND # 0.4 103/ul Critically high 0.0-0.3 [facility] Comment on above: Performed By: #### C BCMAN ####[facility] [address] [place] [address]Dr. Aissatou Vásquez BAND % 3 % Normal 0-5 [facility] Comment on above: Performed By: #### C BCMAN ####[facility] [address] [address]Dr. Aissatou Vásquez BASOM # 0.00 103/ul Normal 0.00-0.10 [facility] Comment on above: Performed By: #### C BCMAN ####[facility] [address] [place] [address]Dr. Aissatou Vásquez BASOM % 0.0 % Critically low 0.2-2.0 [facility] Comment on above: Performed By: #### C BCMAN ####[facility] [address] [place] [address]Dr. Aissatou Vásquez BLAST # Normal [facility] Comment on above: Performed By: #### C BCRITCHIE ####[facility] [address] [place] [address]Dr. Aissatou Vásquez BLAST % Normal [facility] Comment on above: Performed By: #### C BCRITCHIE ####[facility] [address] [place], [place] [address]Dr. Aissatou Vásquez CORRECTED WBC Normal 4.0-11.0 [facility] Comment on above: Performed By: #### C BCRITCHIE ####[facility] [address] [place], [place] [address]Dr. Aissatou Vásquez EOS # 0.12 103/ul Normal 0.00-0.70 [facility] Comment on above: Performed By: #### C BCRITCHIE ####[facility] [address] [place] [address]Dr. Aissatou Vásquez EOS% 1.0 % Normal 0.9-7.0 [facility] Comment on above: Performed By: #### C BCRITCHIE ####[facility] [address] [place] [address]Dr. Aissatou Vásquez HCT 46.0 % Normal 42.0-54.0 [facility] Comment on above: Performed By: #### C BCMAN ####[facility] [address] [place], [place] [address]Dr. Aissatou Vásquez HGB 14.6 g/dl Normal 14.0-18.0 [facility] Comment on above: Performed By: #### Soni DEL CASTILLO ####[facility] [address] [place], [place] [address]Xy. Aissatou Vásquez LYMPHM # 0.62 103/ul Critically low 1.20-3.80 [facility] Comment on above: Performed By: #### Soni DEL CASTILLO ####[facility] [address] [place], [place] [address]Ch. Aissatou Vásquez LYMPHM% 5.0 % Critically low 20.5-60.0 [facility] Comment on above: Performed By: #### Soni DEL CASTILLO ####[facility] [address] [place] [address]Dr. Aissatou Vásquez MCH 29.9 pg Normal 25.9-34.0 [facility] Comment on above: Performed By: #### Soni DEL CASTILLO ####[facility] [address] [place] [address]Dr. Aissatou Vásquez MCHC 31.7 g/dl Normal 29.9-35.2 [facility] Comment on above: Performed By: #### Soni DEL CASTILLO ####[facility] [address] [place] [address]Dr. Aissatou Vásquez MCV 94.1 fL Critically high 80.0-94.0 [facility] Comment on above: Performed By: #### Soni DEL CASTILLO ####[facility] [address] [place] [address]Dr. Aissatou Vásquez METAMYELOCYTE # Normal [facility] Comment on above: Performed By: #### Soni DEL CASTILLO ####[facility] [address] [place] [address]Dr. Aissatou Vásquez METAMYELOCYTE % Normal [facility] Comment on above: Performed By: #### Soni DEL CASTILLO ####[facility] [address] [place] [address]Dr. Aissatou Vásquez MONOM# 0.62 103/ul Normal 0.30-0.80 [facility] Comment on above: Performed By: #### Soni DEL CASTILLO ####[facility] [address] [place] [address]Dr. Aissatou Vásquez MONOM% 5.0 % Normal 1.7-12.0 [facility] Comment on above: Performed By: #### C ABUNDIO ####[facility] [address] [place] [address]Dr. Aissatou Vásquez MPV 10.4 fL Normal 9.5-13.5 [facility] Comment on above: Performed By: #### C ABUNDIO ####[facility] [address] [place] [address]Dr. Aissatou Vásquez MYELOCYTE # Normal [facility] Comment on above: Performed By: #### C ABUNDIO ####[facility] [address] [place] [address]Dr. Aissatou Vásquez MYELOCYTE % Normal [facility] Comment on above: Performed By: #### C ABUNDIO ####[facility] [address] [place] [address]Dr. Aissatou Vásquez NRBC Normal [facility] Comment on above: Performed By: #### C ABUNDIO ####[facility] [address] [place] [address]Dr. Aissatou Vásquez PLT 171 103/ul Normal 150-450 [facility] Comment on above: Performed By: #### C ABNUDIO ####[facility] [address] [place] [address]Dr. Aissatou Vásquez RBC 4.89 106/ul Normal 4.70-6.10 [facility] Comment on above: Performed By: #### C ABUNDIO ####[facility] [address] [place] [address]Dr. Aissatou Vásquez RDW 13.4 % Normal 11.0-15.0 [facility] Comment on above: Performed By: #### C ABUNDIO ####[facility] [address] [place] [address]Dr. Aissatou Vásquez SEG # 10.66 103/ul Critically high 1.40-6.50 [facility] Comment on above: Performed By: #### C ABUNDIO ####[facility] [address] [place] [address]DrBud Vásquez SEG % 86.0 % Critically high 43.0-75.0 [facility] Comment on above: Performed By: #### C ABUNDIO ####[facility] [address] [place], [place] [address]BjDr. Aissatou Vásquez WBC 12.4 103/ul Critically high 4.0-11.0 [facility] Comment on above: Performed By: #### C ABUNDIO ####[facility] [address] [place], [place] [address]FyDr. Aissatou Vásquez CPKon 07-01-2022 CK [Catalytic activity/Vol] 1646 U/L Critically high 39-308 [facility] Comment on above: Performed By: #### L IVER, BMP, HSTROPN #### [facility] [address] [place], [place] [address] Dr[address] Aissatou Vásquez CT CSPINE WO CONon [...] KOKO ROMANO Date: 2022-07-01 19:22 Normal [facility] CT STROKE HEAD WOon 07-01-20 [...] BERNADETTE BEDOLLA Date: 2022-07-01 17:37 Normal [facility] CULTURE BLOODon 07-01-2022 Microscopic examination of blood, culture Culture Observations: NO GROWTH AT 5 DAYS. Normal [facility] Comment on above: Performed By: #### [facility] ####[facility] [address] [place], [place] [address]Hz. Aissatou Vásquez Covid-19 PCR ([facility])on 06-06 SARS-CoV-2 (COVID-19) RNA HALLE+probe Ql (Unsp spec) Not detected Normal NOT DETECTED [facility] Comment on above: Result Comment: [...] for this test is supported by the [employer] of Health and Human Service's declaration that [...] By: #### L IVER, BMP, HSTROPN #### [facility] [address] [place] [address] Dr. Aissatou Vásquez DRUG SCREEN RAPID (URINE)on 07-01-2022 AMP Negative Normal NEGATIVE [facility] Comment on above: Performed By: #### C ADAM #### [facility] [address] [place] [address] Dr. Aissatou Vásquez BAR Negative Normal NEGATIVE [facility] Comment on above: Performed By: #### C ADAM #### [facility] [address] [place] [address] Dr. Aissatou Vásquez BUP Negative Normal NEGATIVE [facility] Comment on above: Performed By: #### C ADAM #### [facility] [address] [place] [address] Dr. Aissatou Vásquez BZO Negative Normal NEGATIVE [facility] Comment on above: Performed By: #### C ADAM #### [facility] [address] [place] [address] Dr. Aissatou Vásquez MARYJANE Negative Normal NEGATIVE [facility] Comment on above: Performed By: #### C ADAM #### [facility] [address] [place] [address] Dr. Aissatou Vásquez CUT-OFFS SEE BELOW Normal [facility] Comment on above: Result Comment: [...] ng/mL Performed By: #### C ADAM #### [facility] [address] [place] [address] Dr. Aissatou Vásquez DRUG CUT HEADER DRUG CLASS TEST SYSTEM CUT-OFF CONCENTRATIONS ARE FOLLOWS: Normal [facility] Comment on above: Performed By: #### C ADAM #### [facility] [address] [place] [address] Dr. Aissatou Vásquez mAMP Negative Normal NEGATIVE [facility] Comment on above: Performed By: #### C ADAM #### [facility] [address] [place] [address] Dr. Aissatou Vásquez MTD Negative Normal NEGATIVE [facility] Comment on above: Performed By: #### C ADAM #### [facility] [address] [place] [address] Dr. Aissatou Vásquez OPI Negative Normal NEGATIVE [facility] Comment on above: Performed By: #### C ADAM #### [facility] [address] [place] [address] Dr. Aissatou Vásquez OXY Negative Normal NEGATIVE [facility] Comment on above: Performed By: #### C ADAM #### [facility] [address] [place] [address] Dr. Aissatou Vásquez PCP Negative Normal NEGATIVE [facility] Comment on above: Performed By: #### C ADAM #### [facility] [address] [place] [address] Dr. Aissatou Vásquez PPX Negative Normal NEGATIVE [facility] Comment on above: Performed By: #### C ADAM #### [facility] [address] [place] [address] Dr. Aissatou Vásquez TCA Negative Normal NEGATIVE [facility] Comment on above: Performed By: #### C ADAM #### [facility] [address] [place] [address] Dr. Aissatou Vásquez THC Negative Normal NEGATIVE [facility] Comment on above: Performed By: #### C ADAM #### [facility] [address] [place] [address] Dr. Aissatou Vásquez ER URINE PROFILEon 2 Bilirubin Ql (U) Negative Normal NEGATIVE [facility] Comment on above: Performed By: #### C ADAM #### [facility] [address] [place] [address] Dr. Aissatou Vásquez Clarity (U) CLEAR Normal CLEAR [facility] Comment on above: Performed By: #### C ADAM #### [facility] [address] [place] [address] Dr. Aissatou Vásquez Color (U) YELLOW Normal YELLOW [facility] Comment on above: Performed By: #### C ADAM #### [facility] [address] [place] [address] Dr. Aissatou Vásquez ERUAHD A micrscopic examination will be performed if indicated. Normal [facility] Comment on above: Performed By: #### C ADAM #### [facility] [address] [place] [address] Dr. Aissatou Vásquez Glucose Ql (U) Negative Normal NEGATIVE [facility] Comment on above: Performed By: #### C ADAM #### [facility] [address] [place] [address] Dr. Aissatou Vásquez Hemoglobin Ql (U) MODERATE Abnormal NEGATIVE [facility] Comment on above: Performed By: #### C ADAM #### [facility] [address] [place] [address] Dr. Aissatou Vásquez Ketones Ql (U) 15 mg/dl Abnormal NEGATIVE [facility] Comment on above: Performed By: #### C ADAM #### [facility] [address] [place] [address] Dr. Aissatou Vásquez LEUKOCYTES Negative Normal NEGATIVE [facility] Comment on above: Performed By: #### C ADAM #### [facility] [address] [place] [address] Dr. Aissatou Vásquez Nitrite Ql (U) Negative Normal NEGATIVE [facility] Comment on above: Performed By: #### C ADAM #### [facility] [address] [place] [address] Dr. Aissatou Vásquez pH (U) 5.0 [pH] Normal 5-9 [facility] Comment on above: Performed By: #### C ADAM #### [facility] [address] [place] [address] Dr. Aissatou Vásquez SPEC GRAVITY 1.025 Normal 1.005-<=1.025 [facility] Comment on above: Performed By: #### C ADAM #### [facility] [address] [place] [address] Dr. Aissatou Vásquez UA PROTEIN TRACE Normal NEGATIVE/ TRACE [facility] Comment on above: Performed By: #### C ADAM #### [facility] [address] [place] [address] Dr. Aissatou Vásquez UR MICRO IND INDICATED Normal [facility] Comment on above: Performed By: #### C ADAM #### [facility] [address] [place] [address] Dr. Aissatou Vásquez Urobilinogen Qn (U) 0.2 {Ilene'U}/dL Normal 0.2 - 1. 0 [facility] Comment on above: Performed By: #### C ADAM #### [facility] [address] [place] [address] Dr. Aissatou Vásquez LIVER PROFILEon 07-01-2022 Albumin [Mass/Vol] 3.7 g/dL Normal 3.4-5.0 [facility] Comment on above: Performed By: #### L IVER BMP, HSTROPN #### [facility] [address] [place] [address] Dr. Aissatou Vásquez Albumin/Globulin [Mass ratio] 0.9 {ratio} Normal [facility] Comment on above: Performed By: #### L IVER BMP, HSTROPN #### [facility] [address] [place] [address] Dr. Aissatou Vásquez ALP [Catalytic activity/Vol] 143 U/L Critically high 46-116 [facility] Comment on above: Performed By: #### L IVER, BMP, HSTROPN #### [facility] [address] [address] [address] Aissatou Vásquez ALT [Catalytic activity/Vol] 56 U/L Normal 16-63 [facility] Comment on above: Performed By: #### L IVER, BMP, HSTROPN #### [facility] [address] [address] [address] Aissatou Vásquez AST [Catalytic activity/Vol] 87 U/L Critically high 15-37 [facility] Comment on above: Performed By: #### L IVER, BMP, HSTROPN #### [facility] [address] [place] [address] Dr. Aissatou Vásquez BILI, CONJUGATED 0.2 mg/dL Normal 0.0-0.2 [facility] Comment on above: Performed By: #### L IVER, BMP, HSTROPN #### [facility] [address] [place] [address] Dr. Aissatou Vásquez Bilirubin [Mass/Vol] 0.6 mg/dL Normal 0.2-1.0 [facility] Comment on above: Performed By: #### L IVER, BMP, HSTROPN #### [facility] [address] [place] [address] Dr. Aissatou Vásquez Globulin (S) [Mass/Vol] 3.9 g/dL Normal [facility] Comment on above: Performed By: #### L IVER, BMP, HSTROPN #### [facility] [address] [place] [address] Dr. Aissatou Vásquez Protein [Mass/Vol] 7.6 g/dL Normal 6.4-8.2 [facility] Comment on above: Performed By: #### L IVER, BMP, HSTROPN #### [facility] [address] [place] [address] Dr. Aissatou Vásquez MYOGLOBINon 07-01-2022 SARAH 2042 ng/mL Critically high 16-96 [facility] Comment on above: Performed By: #### L IVER, BMP, HSTROPN #### [facility] [address] [address] [address] Aissatou Vásquez PROF CHEM 8 (BAS METB)on Anion gap [Moles/Vol] 18.5 mmol/L Normal [facility] Comment on above: Performed By: #### L IVER, BMP, HSTROPN #### [facility] [address] [address] [address] Aissatou Vásquez Calcium [Mass/Vol] 9.8 mg/dL Normal 8.5-10.1 [facility] Comment on above: Performed By: #### L IVER, BMP, HSTROPN #### [facility] [address] [address] [address] Aissatou Vásquez Chloride [Moles/Vol] 104 mmol/L Normal 98-107 [facility] Comment on above: Performed By: #### L IVER, BMP, HSTROPN #### [facility] [address] [address] [address] Aissatou Vásquez CO2 [Moles/Vol] 24.3 mmol/L Normal 21.0-32.0 [facility] Comment on above: Performed By: #### L IVER, BMP, HSTROPN #### [facility] [address] [address] [address] Aissatou Vásquez Creatinine [Mass/Vol] 1.74 mg/dL Critically high 0.70-1.30 [facility] Comment on above: Performed By: #### L IVER, BMP, HSTROPN #### [facility] [address] [address] [address] Aissatou Vásquez EGFR-AF UGANDAN 46 mL/min/1.73m2 Critically low >=60 [facility] Comment on above: Performed By: #### L IVER, BMP, HSTROPN #### [facility] [address] [address] [address] Aissatou Vásquez EGFR-NON AF UGANDAN 38 mL/min/1.73m2 Critically low >=60 [facility] Comment on above: Performed By: #### L IVER, BMP, HSTROPN #### [facility] [address] [address] [address] Aissatou Vásquez Glucose [Mass/Vol] 115 mg/dL Critically high 74-106 T [facility] Comment on above: Performed By: #### L IVER, BMP, HSTROPN #### [facility] [address] [address] [address] Aissatou Vásquez Potassium [Moles/Vol] 4.8 mmol/L Normal 3.5-5.1 [facility] Comment on above: Performed By: #### L IVER, BMP, HSTROPN #### [facility] [address] [place] [address] Dr. Aissatou Vásquez Sodium [Moles/Vol] 142 mmol/L Normal 136-145 [facility] Comment on above: Performed By: #### L IVER, BMP, HSTROPN #### [facility] [address] [address] [address] Aissatou Vásquez Urea nitrogen [Mass/Vol] 54.0 mg/dL Critically high 7.0-18.0 [facility] Comment on above: Performed By: #### L IVER, BMP, HSTROPN #### [facility] [address] [place] [address] Dr. Aissatou Vásquez Urea nitrogen/Creatinine [Mass ratio] 31.0 mg/mg Normal [facility] Comment on above: Performed By: #### L IVER, BMP, HSTROPN #### [facility] [address] [place] [address] Dr. Aissatou Vásquez TROPONIN, HIGH SENSITIVITYon 07-01-2022 HSTROP 102.3 pg/mL Critically high 4.0-76.1 [facility] Comment on above: Result Comment: CUT- OFF POINTS HAVE BEEN ESTABLISHED BASED ON THE FOURTH UNIVERSAL DEFINITIONS OF MYOCARDIAL INFARCTION. THE UPPER REFERENCE LIMIT (URL) OF TROPONIN, DEFINED THE 99TH PERCENTILE OF cTnI DISTRIBUTION IN A REFERENCE POPULATION, HAS BEEN CONFIRMED THE DECISION THRESHOLD FOR MO DIAGNOSIS. Performed By: #### H STROPN ####[facility] [address] [address]Dr. Aissatou Vásquez HSTROP 132.4 pg/mL Critically high 4.0-76.1 [facility] Comment on above: Result Comment: CUT- OFF POINTS HAVE BEEN ESTABLISHED BASED ON THE FOURTH UNIVERSAL DEFINITIONS OF MYOCARDIAL INFARCTION. THE UPPER REFERENCE LIMIT (URL) OF TROPONIN, DEFINED THE 99TH PERCENTILE OF cTnI DISTRIBUTION IN A REFERENCE POPULATION, HAS BEEN CONFIRMED THE DECISION THRESHOLD FOR MO DIAGNOSIS. Performed By: #### L IVER, BMP, HSTROPN #### [facility] [address] [address] [address] Aissatou Vásquez TSHon 07-01-2022 TSH 7.840 uIU/mL Critically high 0.358-3.740 [facility] Comment on above: Performed By: #### L IVER BMP, HSTROPN #### [facility] [address] [place] [address] Dr. Aissatou Vásquez URINE MICROSCOPIC ONLYon BACTERIA NONE SEEN Normal NONE SEEN [facility] Comment on above: Performed By: #### C ADAM #### [facility] [address] [place] [address] Dr. Aissatou Vásquez Bacteria identified Cx Nom (U) NOT INDICATED Normal [facility] Comment on above: Performed By: #### C ADAM #### [facility] [address] [place] [address] Dr. Aissatou Vásquez CAST NONE SEEN Normal NONE SEEN [facility] Comment on above: Performed By: #### C ADAM #### [facility] [address] [place] [address] Dr. Aissatou Vásquez Crystals LM Nom (Urine sed) NONE SEEN Normal NONE SEEN [facility] Comment on above: Performed By: #### C ADAM #### [facility] [address] [place] [address] Dr. Aissatou Vásquez Epithelial cells LM Ql (Urine sed) RARE Normal NONE SEEN /RARE [facility] Comment on above: Performed By: #### C ADAM #### [facility] [address] [place] [address] Dr. Aissatou Vásquez MUCOUS TRACE Abnormal NONE SEEN [facility] Comment on above: Performed By: #### C ADAM #### [facility] [address] [place] [address] Dr. Aissatou Vásquez RBC 2-5 Abnormal 0-2 [facility] Comment on above: Performed By: #### C ADAM #### [facility] [address] [place] [address] Dr. Aissatou Vásquez WBC 2-5 Abnormal NONE SEEN [facility] Comment on above: Performed By: #### C ADAM #### [facility] [address] [place] [address] Dr. Aissatou Vásquez XR CHEST 1 Von [...] Jhony TOTH Date: 2022-07-01 18:01 Normal [facility] AMMONIAon 06-05-2022 Ammonia (P) [Mass/Vol] ug/dL Critically low 11-32 [facility] Comment on above: Performed By: #### L IVER, BMP, HSTROPN #### [facility] [address] [place] [address] Dr. Aissatou Vásquez BNPon 06-05-2022 Natriuretic peptide B (Bld) [Mass/Vol] 672.0 pg/mL Normal <=1,800.0 [facility] Comment on above: Performed By: #### T SH, CMP, FT3, BNP, T4, LIPID #### [facility] [address] [place] [address] Dr. Aissatou Vásquez CBC AUTO DIFFon 06-05-2022 BASO # 0.0 103/ul Normal 0.0-0.1 [facility] Comment on above: Performed By: #### C ADAM #### [facility] [address] [place] [address] Dr. Aissatou Vásquez Basophils/100 WBC (Bld) 0.6 % Normal 0.2-2.0 [facility] Comment on above: Performed By: #### C ADAM #### [facility] [address] [place] [address] Dr. Aissatou Vásquez EO # 0.0 103/ul Normal 0.0-0.7 [facility] Comment on above: Performed By: #### C ADAM #### [facility] [address] [place] [address] Dr. Aissatou Vásquez Eosinophils/100 WBC (Bld) 0.6 % Critically low 0.9-7.0 [facility] Comment on above: Performed By: #### C ADAM #### [facility] [address] [place] [address] Dr. Aissatou Vásquez Erythrocyte distribution width (RBC) [Ratio] 13.7 % Normal 11.0-15.0 [facility] Comment on above: Performed By: #### C ADAM #### [facility] [address] [place] [address] Dr. Aissatou Vásquez Hematocrit (Bld) [Volume fraction] 40.7 % Critically low 42.0-54.0 [facility] Comment on above: Performed By: #### C ADAM #### [facility] [address] [place] [address] Dr. Aissatou Vásquez Hemoglobin (Bld) [Mass/Vol] 12.8 g/dL Critically low 14.0-18.0 [facility] Comment on above: Performed By: #### C ADAM #### [facility] [address] [place] [address] Dr. Aissatou Vásquez IG # 0.01 10e3/ul Normal 0.00-0.03 [facility] Comment on above: Performed By: #### C ADAM #### [facility] [address] [place] [address] Dr. Aissatou Vásquez IG % 0.2 % Normal 0.0-0.5 [facility] Comment on above: Performed By: #### C ADAM #### [facility] [address] [address] [address] Aissatou Vásquez LYMPH # 1.7 103/ul Normal 1.2-3.8 [facility] Comment on above: Performed By: #### C ADAM #### [facility] [address] [address] [address] Aissatou Vásquez Lymphocytes/100 WBC (Bld) 27.5 % Normal 20.5-60.0 [facility] Comment on above: Performed By: #### C ADAM #### [facility] [address] [place] [address] Dr. Aissatou Vásquez MANUAL DIFF REQ NO Normal [facility] Comment on above: Performed By: #### C ADAM #### [facility] [address] [place] [address] Dr. Aissatou Vásquez MCH (RBC) [Entitic mass] 30.3 pg Normal 25.9-34.0 [facility] Comment on above: Performed By: #### C ADAM #### [facility] [address] [place] [address] Dr. Aissatou Vásquez MCHC (RBC) [Mass/Vol] 31.4 g/dL Normal 29.9-35.2 [facility] Comment on above: Performed By: #### C ADAM #### [facility] [address] [place] [address] Dr. Aissatou Vásquez MCV (RBC) [Entitic vol] 96.2 fL Critically high 80.0-94.0 [facility] Comment on above: Performed By: #### C ADAM #### [facility] [address] [place] [address] Dr. Aissatou Vásquez MONO # 0.6 103/ul Normal 0.3-0.8 [facility] Comment on above: Performed By: #### C ADAM #### [facility] [address] [place] [address] Dr. Aissatou Vásquez Monocytes/100 WBC (Bld) 9.9 % Normal 1.7-12.0 [facility] Comment on above: Performed By: #### C ADAM #### [facility] [address] [address] [address] Aissatou Vásquez NEUT # 3.8 103/ul Normal 1.4-6.5 [facility] Comment on above: Performed By: #### C ADAM #### [facility] [address] [address] [address] Aissatou Vásquez Neutrophils/100 WBC (Bld) 61.2 % Normal 43.0-75.0 [facility] Comment on above: Performed By: #### C ADAM #### [facility] [address] [address] [address] Aissatou Vásquez Platelet mean volume (Bld) [Entitic vol] 9.3 fL Critically low 9.5-13.5 [facility] Comment on above: Performed By: #### C ADAM #### [facility] [address] [address] [address] Aissatou Vásquez PLT 218 103/ul Normal 150-450 [facility] Comment on above: Performed By: #### C ADAM #### [facility] [address] [address] [address] Aissatou Vásquez RBC 4.23 106/ul Critically low 4.70-6.10 [facility] Comment on above: Performed By: #### C ADAM #### [facility] [address] [address] [address] Aissatou Vásquez WBC 6.3 103/ul Normal 4.0-11.0 [facility] Comment on above: Performed By: #### C ADAM #### [facility] [address] [address] [address] Aissatou Vásquez FREE T3on 06-05-2022 FREE T3 1.80 pg/mlL Critically low 2.18-3.98 [facility] Comment on above: Performed By: #### T SH, CMP, FT3, BNP, T4, LIPID #### [facility] [address] [address] [address] Aissatou Vásquez GLYCOHEMOGLOBIN A1Con 2021 ADA RECOMMENDATION SEE BELOW Normal [facility] Comment on above: Result Comment: ADA RECOMMENDED LIMIT 4.0 - 6.0 ADA THERAPEUTIC TARGET < 7.0 ACTION SUGGESTED > 7.0 Performed By: #### L DHARA WAITE, HSTROPN #### [facility] [address] [address] [address] Aissatou Vásquez Glucose [Mass/Vol] 117 mg/dL Normal [facility] Comment on above: Performed By: #### L DHARA WAITE, HSTROPN #### [facility] [address] [address] [address] Aissatou Vásquez HbA1c (Bld) [Mass fraction] 5.7 % Normal 4.5-6.2 [facility] Comment on above: Performed By: #### L DHARA WAITE, HSTROPN #### [facility] [address] [address] [address] Aissatou Vásquez IRONon 06-05-2022 Iron [Mass/Vol] 76.0 ug/dL Normal 65.0-175.0 [facility] Comment on above: Performed By: #### P SASC, VITAD, IRON, B12FOL ####[facility] [address] [address]DrBud Vásquez LIPID PROFILEon 06-05-2022 CHOL-HDL RATIO NORM SEE BELOW Normal [facility] Comment on above: Result Comment: 3.3 - 4.4 LOW RISK 4.4 - 7.1 AVERAGE RISK 7.1 - 11.0 MODERATE RISK >11.0 HIGH RISK Performed By: #### T SH, CMP, FT3, BNP, T4, LIPID ####[facility] [address] [id number] Vásquez Cholesterol [Mass/Vol] 133 mg/dL Normal <=200 [facility] Comment on above: Performed By: #### T SH, CMP, FT3, BNP, T4, LIPID ####[facility] [address] [id number] Vásquez Cholesterol in HDL [Mass/Vol] 79 mg/dL Critically high 40-60 [facility] Comment on above: Performed By: #### T SH, CMP, FT3, BNP, T4, LIPID ####[facility] [address] [address]Dr. Aissatou Vásquez Cholesterol in LDL [Mass/Vol] 43.6 mg/dL Normal [facility] Comment on above: Performed By: #### T SH, CMP, FT3, BNP, T4, LIPID ####[facility] [address] [address]Dr. Aissatou Vásquez Cholesterol.total/Cho lesterol in HDL [Mass ratio] 1.7 {ratio} Normal [facility] Comment on above: Performed By: #### T SH, CMP, FT3, BNP, T4, LIPID ####[facility] [address] [address]Dr. Aissatou Vásquez HDL NORMAL > or = 60 mg/dl - LO W CARDIOVASCULAR RISK <40 mg/dl - HIGH CARDIOVASCULAR RISK Normal [facility] Comment on above: Performed By: #### T SH, CMP, FT3, BNP, T4, LIPID ####[facility] [address] [address]Dr. Aissatou Vásquez LDL CALC NORMAL SEE BELOW Normal [facility] Comment on above: Result Comment: <100 mg/dl OPTIMAL 100 - 129 mg/dl NEAR OR ABOVE OPTIMAL 130 - 159 mg/dl BORDERLINE HIGH 160 - 189 mg/dl HIGH >190 mg/dl VERY HIGH Performed By: #### T SH, CMP, FT3, BNP, T4, LIPID ####[facility] [address] [address]Dr. Aissatou Vásquez Triglyceride [Mass/Vol] 52 mg/dL Normal <=150 [facility] Comment on above: Performed By: #### T SH, CMP, FT3, BNP, T4, LIPID ####[facility] [address] [address]Dr. Aissatou Vásquez VLDL CALC 10.4 mg/dL Normal [facility] Comment on above: Performed By: #### T SH, CMP, FT3, BNP, T4, LIPID ####[facility] [address] [address]Dr. Aissatou Vásquez PROF 14(COMP METB)on 022 Albumin [Mass/Vol] 4.0 g/dL Normal 3.4-5.0 [facility] Comment on above: Performed By: #### T SH, CMP, FT3, BNP, T4, LIPID ####[facility] [address] [address]Dr. Aissatou Vásquez Albumin/Globulin [Mass ratio] 1.1 {ratio} Normal [facility] Comment on above: Performed By: #### T SH, CMP, FT3, BNP, T4, LIPID ####[facility] [address] [address]Dr. Aissatou Vásquez ALP [Catalytic activity/Vol] 137 U/L Critically high 46-116 [facility] Comment on above: Performed By: #### T SH, CMP, FT3, BNP, T4, LIPID ####[facility] [address] [address]Dr. Aissatou Vásquez ALT [Catalytic activity/Vol] 18 U/L Normal 16-63 [facility] Comment on above: Performed By: #### T SH, CMP, FT3, BNP, T4, LIPID ####[facility] [address] [address]Dr. Aissatou Vásquez Anion gap [Moles/Vol] 11.1 mmol/L Normal [facility] Comment on above: Performed By: #### T SH, CMP, FT3, BNP, T4, LIPID ####[facility] [address] [address]Dr. Aissatou Vásquez AST [Catalytic activity/Vol] 9 U/L Critically low 15-37 [facility] Comment on above: Performed By: #### T SH, CMP, FT3, BNP, T4, LIPID ####[facility] [address] [address]Dr. Aissatou Vásquez Bilirubin [Mass/Vol] 0.3 mg/dL Normal 0.2-1.0 [facility] Comment on above: Performed By: #### T SH, CMP, FT3, BNP, T4, LIPID ####[facility] [address] [address]Dr. Aissatou Vásquez Calcium [Mass/Vol] 9.4 mg/dL Normal 8.5-10.1 [facility] Comment on above: Performed By: #### T SH, CMP, FT3, BNP, T4, LIPID ####[facility] [address] [address]Dr. Aissatou Vásquez Chloride [Moles/Vol] 102 mmol/L Normal 98-107 [facility] Comment on above: Performed By: #### T SH, CMP, FT3, BNP, T4, LIPID ####[facility] [address] [address]Dr. Aissatou Vásquez CO2 [Moles/Vol] 29.7 mmol/L Normal 21.0-32.0 [facility] Comment on above: Performed By: #### T SH, CMP, FT3, BNP, T4, LIPID ####[facility] [address] [place], [place] [address]Dr. Aissatou Vásquez Creatinine [Mass/Vol] 1.62 mg/dL Critically high 0.70-1.30 [facility] Comment on above: Performed By: #### T SH, CMP, FT3, BNP, T4, LIPID ####[facility] [address] [address]Dr. Aissatou Vásquez EGFR-AF UGANDAN 50 mL/min/1.73m2 Critically low >=60 [facility] Comment on above: Performed By: #### T SH, CMP, FT3, BNP, T4, LIPID ####[facility] [address] [place], [place] [address]Dr. Aissatou Vásquez EGFR-NON AF UGANDAN 41 mL/min/1.73m2 Critically low >=60 [facility] Comment on above: Performed By: #### T SH, CMP, FT3, BNP, T4, LIPID ####[facility] [address] [address]Dr. Aissatou Vásquez Globulin (S) [Mass/Vol] 3.8 g/dL Normal [facility] Comment on above: Performed By: #### T SH, CMP, FT3, BNP, T4, LIPID ####[facility] [address] [address]Dr. Aissatou Vásquez Glucose [Mass/Vol] 86 mg/dL Normal 74-106 [facility] Comment on above: Performed By: #### T SH, CMP, FT3, BNP, T4, LIPID ####[facility] [address] [address]Dr. Aissatou Vásquez Potassium [Moles/Vol] 4.8 mmol/L Normal 3.5-5.1 [facility] Comment on above: Performed By: #### T SH, CMP, FT3, BNP, T4, LIPID ####[facility] [address] [address]Dr. Aissatou Vásquez Protein [Mass/Vol] 7.8 g/dL Normal 6.4-8.2 [facility] Comment on above: Performed By: #### T SH, CMP, FT3, BNP, T4, LIPID ####[facility] [address] [place], [place] [address]Dr. Aissatou Vásquez Sodium [Moles/Vol] 138 mmol/L Normal 136-145 [facility] Comment on above: Performed By: #### T SH, CMP, FT3, BNP, T4, LIPID ####[facility] [address] [address]Dr. Aissatou Vásquez Urea nitrogen [Mass/Vol] 41.0 mg/dL Critically high 7.0-18.0 [facility] Comment on above: Performed By: #### T SH, CMP, FT3, BNP, T4, LIPID ####[facility] [address] [address]Dr. Aissatou Vásquez Urea nitrogen/Creatinine [Mass ratio] 25.3 mg/mg Normal [facility] Comment on above: Performed By: #### T SH, CMP, FT3, BNP, T4, LIPID ####[facility] [address] [address]Dr. Aissatou Vásquez T4on 06-05-2022 T4 [Mass/Vol] 9.70 ug/dL Normal 4.50-12.10 [facility] Comment on above: Performed By: #### T SH, CMP, FT3, BNP, T4, LIPID #### [facility] [address] [place], [place] [address] Dr. Aissatou Vásquez TSHon 06-05-2022 TSH 2.525 uIU/mL Normal 0.358-3.740 [facility] Comment on above: Performed By: #### T SH, CMP, FT3, BNP, T4, LIPID ####[facility] [address] [id number]. Aissatou Vásquez VIT B12 AND FOLATEon 022 Cobalamin (Vitamin B12) [Mass/Vol] 1004.0 pg/mL Critically high 193.0-986.0 [facility] Comment on above: Performed By: #### P SASC, VITAD, IRON, B12FOL ####[facility] [address] [address]Dr. Aissatou Vásquez FOLATE 6.10 ng/mL Critically low 8.60-58.90 [facility] Comment on above: Performed By: #### P SASC, VITAD, IRON, B12FOL ####[facility] [address] [address]Dr. Aissatou Vásquez VITAMIN D 25 OHon 06-05-2022 VIT D 25-OH 31.8 ng/mL Normal [facility] Comment on above: Performed By: #### P SASC, VITAD, IRON, B12FOL ####[facility] [address] [address]Dr. Aissatou Vásquez VIT D RANGES SEE BELOW Normal [facility] Comment on above: Result Comment: <20 ng/mL Vit D deficient 20 - <30 ng/mL Vit D insufficient 30 - 100 ng/mL Vit D sufficient >100 ng/mL Potential Toxicity Performed By: #### P SASC, VITAD, IRON, B12FOL ####[facility] [address] [address]Dr. Aissatou Vásquez Coding Summary.on 01-23-2017 Coding Summary. CODING DATE: 01/23/2017 FINAL [facility] STATUS: Home (Routine DC) PAYOR: [...] [place] Date Saved: 01/23/2017 10:07 am Normal [facility] Creatinineon 01-22-2017 Creatinine 1.0 mg/dL Normal 0.5-1.3 [facility] Comment on above: Performed By: #### 2 [id number], [id number] ####[facility] [address] [place] [address] eGFRon 01-22-2017 eGFR (black) mL/min/{1.73_m2} Normal >=59 [facility] Comment on above: Order Comment: Order added by Discern Expert. Result Comment: eGFR is race adjusted. AA=. Performed By: #### 2 [id number], [id number] ####[facility] [address] [place] [address] eGFR (non-black) mL/min/{1.73_m2} Normal >=59 [facility] Comment on above: Order Comment: Order added by Discern Expert. Result Comment: [employer] Table matt kidney disease could be indicated at eGFR's of less than 60 mL/min/1.73m2. Kidney failure is indicated at less than 15 mL/min/1.73m2. Performed By: #### 2 [id number], [id number] ####[facility] [address] [place] [address] Vital Signs Date Time Vital Sign Value Performing Clinician Luci jacob 07-19-2024 16:05-0500 Body mass index (BMI) [Ratio] 24.59 kg/m2 Lydia Burris MD Work Phone: [facility] 07-19-2024 16:05-0500 Body weight 84.55 kg Lydia Burris MD Work Phone: [facility] 07-19-2024 16:05-0500 Diastolic blood pressure 70 mm[Hg] Lydia Burris MD Work Phone: [facility] 07-19-2024 16:05-0500 Systolic blood pressure 134 mm[Hg] Lydia Burris MD Work Phone: [facility] 06-08-2024 15:53-0500 Body height 185.4 cm Chadd Gonzalez MD Work Phone: [facility] 06-08-2024 15:53-0500 Body mass index (BMI) [Ratio] 24.14 kg/m2 Chadd Gonzalez MD Work Phone: [facility] 06-08-2024 15:53-0500 Body weight 83.01 kg Chadd Gonzalez MD Work Phone: [facility] 06-08-2024 15:53-0500 Diastolic blood pressure 60 mm[Hg] Chadd Gonzalez MD Work Phone: [facility] 06-08-2024 15:53-0500 Heart rate 72 /min Chadd Gonzalez MD Work Phone: [facility] 06-08-2024 15:53-0500 Systolic blood pressure 118 mm[Hg] Chadd Gonzalez MD Work Phone: [facility] 03-23-2023 13:55-0400 Diastolic blood pressure 68 mm[Hg] Jodi Banerjee DO Work Phone: [facility] 03-23-2023 13:55-0400 Heart rate 51 /min Jodi Banerjee DO Work Phone: [facility] 03-23-2023 13:55-0400 Systolic blood pressure 151 mm[Hg] Jodi Banerjee DO Work Phone: [facility] 08-27-2022 13:12-0500 Diastolic blood pressure 70 mm[Hg] Jodi Banerjee DO Work Phone: [facility] 08-27-2022 13:12-0500 Heart rate 69 /min Jodi Banerjee DO Work Phone: [facility] 08-27-2022 13:12-0500 Systolic blood pressure 156 mm[Hg] Jodi Banerjee DO Work Phone: [facility] Encounters Encounter Date Encounter Type Care Provider Facility Start: 09-13-2024 End: 09-13-2024 ambulatory LYDIA Oli BEJ Not Available Start: 09-13-2024 End: 09-13-2024 Office outpatient visit 15 minutes Lydia Burris MD Work Phone: [facility] Comment on above: Cognitive decline (P rimary Dx); Parkinson's disease without dyskinesia or fluctuating manifestations (CMS/HCC); Polyneuropathy Start: 07-22-2024 End: 07-22-2024 ambulatory [facility] Start: 07-19-2024 End: 07-19-2024 ambulatory LYDIA D BEJ Not Available Start: 07-19-2024 End: 07-19-2024 Office outpatient new 60 minutes Lydia Burris MD Work Phone: [facility] Comment on above: Cognitive decline (P rimary Dx); Parkinson's disease without dyskinesia or fluctuating manifestations (CMS/HCC); Polyneuropathy Start: 07-19-2024 End: 07-19-2024 Maria De Jesus Burris MD Work Phone: [facility] Start: 07-19-2024 End: 07-19-2024 Maria De Jesus Burris MD Work Phone: [facility] Start: 06-16-2024 End: 06-16-2024 Telephone encounter Soniya Shay LPN [facility] Start: 06-08-2024 End: 06-08-2024 [...] 05-30-2024 End: 05-30-2024 ambulatory [facility] Start: 06-24-2023 End: 06-24-2023 ambulatory [facility] Start: 03-23-2023 End: 03-23-2023 ambulatory JODI BANERJEE Facility:[facility] Start: 03-23-2023 End: 03-23-2023 Patient encounter procedure Jodi Banerjee DO Work Phone: Neurology Comment on above: Altered mental statu s, unspecified altered mental status type (Primary Dx); Memory loss Start: 03-23-2023 Telephone encounter Rudi Banerjee DO Work Phone: Neurology Start: 10-27-2022 End: 10-28-[address] PIPE HOPKINS . Facility:[facility] Start: 09-24-2022 End: 09-24-[address] PIPE HOPKINS . Facility:[facility] Start: 08-27-2022 End: 08-28-2022 ambulatory PIPE HOPKINS Facility:[facility] Start: 08-27-2022 End: 08-27-2022 Patient encounter procedure [...] Start: 06-25-2017 End: 06-26-2017 Ambulatory DEFAULT PHYSICIAN Facility:[facility] Start: 01-22-2017 End: 01-23-2017 Ambulatory SHONDA ALTAMIRANO [place] Start: 05-27-2011 Patient encounter status Johann Banerjee Work Phone: [facility] Work Phone: Procedures Date Procedure Procedure Detail Performing Clinician Start: 06-05-[address] ORTIZ HOPKINS . Comment on above: Performed By: #### P SASC, VITAD, IRON, [id number] ####[facility] [id number] [place], [place] [address]Sp. Aissatou Vásquez Start: 02-20-2020 History of coronary artery bypass grafting S/P CABG (coronary artery bypass graft), PARRA to the LAD, SVG to D1, SVG to OM1, SVG to OM 2, inverted Y grafted PLV and posterior descending artery. Gokatelyn Chriss ASHLEY Work Phone: Plan of Treatment Date Care Activity Detail Author Start: 03-28-2025 End: 03-28-2025 Patient encounter procedure 03/28/2025 2:15 PM EDT Office Visit [facility] [address] [id number] Lydia Burris MD [address] [address] [facility] Start: 09-06-2024 End: 09-06-2024 Patient encounter procedure 09/06/2024 1:45 PM EST Office Visit [facility] [address] [place] [id number] Lydia Burris MD [address] [id number] [facility] Start: 06-08-2024 End: 06-08-2025 US Retroperitoneum Ultrasound retroperitoneal complete Imaging Routine Urinary incontinence, unspecified type Expected: 06/08/2024, Expires: 06/08/2025 [facility] Work Phone: Comment on above: Expected: 06/08/2024 , Expires: 06/08/2025 Start: 03-06-2024 Influenza vaccination Influenza Vacc ine [facility] Start: 03-06-2023 Influenza vaccination Influenza Vacc ine (#1) [facility] Start: 08-27-2022 End: 10-27-2022 25-hydroxyvitamin D3 [Mass/volume] in Serum or Plasma [facility] Work Phone: Comment on above: Expected: 08/27/2022 , Expires: 10/27/2022 Start: 08-27-2022 End: 10-27-2022 SYPHILIS TOTAL W/REFLEX [facility] Work Phone: Comment on above: Expected: 08/27/2022 , Expires: 10/27/2022 Start: 07-06-2022 ADVANCE DIRECTIVE DISCUSSION ADVANCE DIRECTIVE DISCUSSION [facility] Start: 07-06-2022 DEPRESSION ASSESSMENT DEPRESSION ASS ESSMENT [facility] Start: 03-06-2022 Influenza vaccination INFLUENZA (#1) [facility] Start: 12-17-2019 DIABETES SCREEN DIABETES SCREEN [facility] Start: 12-17-2019 Diabetes Screening Diabetes Screenin g [facility] Start: 05-21-2012 Hepatitis B surface antibody level LDL CHOLESTEROL [facility] Start: 2003 Fall Risk Screening Fall Risk Screen ing [facility] Start: 2003 Pneumococcal Vaccine : 65+ (1 - PCV) Pneumococcal Vaccine: 65+ (1 - PCV) [facility] Start: 2003 PNEUMOCOCCAL: 65+ (1 - PCV) PNEUMOCOCCAL: 65+ (1 - PCV) [facility] Start: 1988 Administration of varicella zoster vaccine Zoster (Shingles) Vaccine (1 of 2) [facility] Start: 1988 SHINGRIX VACCINE (1 of 2) GRIFFIN GRIX VACCINE (1 of 2) [facility] Start: 1957 DTaP,Tdap and Td Vac cines (1 - Tdap) DTaP,Tdap and Td Vaccines (1 - Tdap) [facility] Start: 1957 Urine microalbumin profile [facility] Start: 1950 Depression Screening Depression Scre ening [facility] Start: 1950 Tobacco Screening Tobacco Screening [facility] Start: 02-18-1939 COVID-19 VACCINE (#1) COVID-19 VACCI NE (#1) [facility] End: 06-08-2025 Bacteria identified in Urine by Culture Urine Culture Microbiology Routine Urinary incontinence, unspecified type 1 Occurrences starting 06/08/2024 until 06/08/2025 [facility] Comment on above: 1 Occurrences starti ng 06/08/2024 until 06/08/2025 [facility] Immunizations Immunization Date Immunization Notes Care Provider Jewell molina 06-18-2017 influenza virus vaccine, unspecified formulation Jodi Banerjee DO Work Phone: [facility] Payers Date Payer Category Payer Medicare (Managed Care) [facility] MEDICARE [id number] 2024 Medicare HMO [employer]IC[employer] [id number] 2024 Medicare [id number] 2022 [place] [id number] 2017 Medicare [id number] 2016 Private Health Insurance [id number] 2003 Medicare [id number] 1959 Medicaid [id number] 1959 Medicare [id number] 1959 Unknown [id number] 1938 Unknown [id number] [id number]. 593 1938 Unknown [id number]. 593 1938 Unknown [id number] [id number]. 593 1938 Unknown [id number] [id number]. 593 1938 Unknown [id number] 2.16.840.1.038215.3.579.2. 593 1938 Unknown [id number] 2.16.840.1.551949.3.579.2. 593 1938 Unknown [id number] [id number]. 593 1938 Unknown [id number] 2.16.840.1.449084.3.579.2. 593 1938 Unknown [id number] 2.16.840.1.284677.3.579.2. 1259 1938 Unknown [id number] [id number]. 1259 1938 Unknown [id number]. 1286 Unknown Social History Date Type Detail Facility Start: 08-27-2022 End: 03-05-2023 Tobacco smoking status NHIS Ex-smoker [facility] History of tobacco use Current smoker [facility] History of tobacco use Cigarette Smoker [facility] Start: 08-27-2022 End: 07-23-2023 Cigarettes smoked current (pack per day) - Reported 1 [facility] Start: 08-27-2022 Tobacco use and exposure Former smokeless tobacco user [facility] End: 06-02-1971 History of tobacco use User of smokeless tobacco [facility] Start: 08-27-2022 End: 03-23-2023 Alcohol intake Current drinker of alcohol (finding) [facility] Start: 08-27-2022 Tobacco Comment quit 40 yrs ago [facility] Start: 05-21-2011 Alcohol Comment He drinks 4 gl asses of red wine weekly [facility] Start: 1940 Sex Assigned At Not on file C [facility] Start: 03-23-2023 End: 07-23-2023 Tobacco use panel [facility] National Score (1-100), lower number is lower risk 52 [facility] Start: 03-05-2023 Tobacco use and exposure Smokeless tobacco non-user [facility] Start: 07-23-2023 Alcoholic beverage intake Lifetime non-drinker (finding) [facility] Tobacco smoking status IAIS Tobacco smoking consumption unknown [facility] Start: 1940 Sex assigned at Male P [facility] Start: 08-06-2015 Sex Male (finding) [facility] NEGATED: Highlighted rowStart: NINF History of tobacco use Passive smoker [facility] Clinical Notes 05-28-2011 to 09-13-2024 Lydia Burris MD - 09/13/2024 3:15 PM EDFlorian Burris MD - 09/13/2024 3:15 PM EDFlorian Burris MD - 09/13/2024 3:15 PM EDTMpedro pablo Burris MD - 09/13/2024 3:15 PM EDTMpedro pablo Burris MD - 07/19/2024 4:00 PM EST Note Date & Type Note Facility 09-13-2024 History of Present illness Narrative Associated Problem(s): Cognitive decline (Continue current regimen.) Associated Problem(s): Parkinson disease (CMS/HCC) Incr Sinemet to tid. Note that protein in stomach will decrease absorption (therefore, give at least 45 min before or 2 h after food). Associated Problem(s): Polyneuropathy Continue B-complex. Minimally high B12 is NOT problematic. Images from the original note were not included. Outpatient Progress Note Patient: Leanna Nelson Dept: Neurology : 1940 Appt Date: 09/13/2024 Prev Appt: 07/19/2024 Chief Complaint Patient presents with cognitive decline Appointment Note -- 8 wk f/u (MRI, EEG Lesli 09/06) Assessment and Plan - Assessment & Plan Cognitive decline (Continue current regimen.) Parkinson's disease without dyskinesia or fluctuating manifestations (CMS/HCC) Incr Sinemet to tid. Note that protein in stomach will decrease absorption (therefore, give at least 45 min before or 2 h after food). Polyneuropathy Continue B-complex. Minimally high B12 is NOT problematic. No orders of the defined types were placed in this encounter. Follow-Up - Follow up in about 6 months (around 03/16/2025), or DIRECTOR OF RECRUITING. Lab Frequency Next Occurrence History of Present Illness, Associated Treatments and Results - Dx COGNITION . WMD . (TSH . B12) Tx memantine 10 bid + donepezil 20 qam ASA 81 (+ no statin due to AEs) (B-complex) AEs Hx Lost to follow-up since 2020. [...] or poor (2021). Imaging MR brain (07/2022, Lesli) - atrophy & UBOs age-consistent , unchanged; 09/13 rev'd with pt and family, atrophy mod-marked, WMD mild-mod, ventricles proportionate to atrophy Testing EEG (09/2024, Lesli/Randal) - gen slow Labs - [id number]/[id number]/_ Surgery Failed Dx PD Tx Sinemet 25/100 bid AEs Hx Somewhat improved. Onset Semeiology Imaging Testing Surgery Failed Physical Exam - General [...] Proverb - utterly unable ... Memory - 09/05 but only with prompting. (2020) CNN - ___, unchanged: ___, orig: ___ Motor - ___, unchanged: Signature smaller, orig: ___ Sens - ___, unchanged: ___, orig: Temp loss distal LEs mild Reflex - ___, unchanged: KJ 0B ... AJ 0B, ori+UEs ... AJ 0B Coord - Rigidity improved, unchanged: Rigidity, orig: Romberg 1+ Gait - Some shuffling remains, 8 steps to turn and approach chair to sit down, unchanged: Gait shuffling, orig: Somewhat unsteady, knees slightly bent, does not cross the exam room in a straight line ... NOT magnetic . Vestib - ___, unchanged: ___, orig: ___ MSK - ___, unchanged: ___, orig: ___ Other - ___, unchanged: ___, orig: ___ Vital Signs - Visit Vitals Smoking Status Former Review of Systems - . Const: Denies [...] disease Sibling Outpatient Encounter Medications as of 09/13/2024 Medication Sig Dispense Refill carbidopa-levodopa (Sinemet) 25-100 MG tablet levothyroxine (Synthroid, Levoxyl) 100 MCG tablet liothyronine (Cytomel) 5 MCG tablet memantine (Namenda) 10 MG tablet tolterodine (Detrol) 1 MG tablet acetaminophen (Tylenol) 500 MG tablet Take 2 [...] 100 mg by mouth in the morning. cholecalciferol (Vitamin D-3) 50 MCG (2000 UT) tablet Take 2,000 Units by mouth in the morning. [DISCONTINUED] Cholecalciferol (Vitamin D) 50 MCG (2000 UT) capsule 1 capsule 1 (one) time each day at the same time. No facility-administered encounter medications on file as of 09/13/2024. Lydia Burris M.D. [facility] Neurology ? [address] ? [place], [place] [address] ? ? fax Neurology ? Clinical Neurophysiology ? Epilepsy ? Sleep Disorders ? Clinical Informatics documented in this encounter [facility] 07-19-2024 History of Present illness Narrative Associated Problem(s): Cognitive decline Add memantine 10 -> bid. Then donepezil 10, titrate to 15 then 20 if tolerated (i.e. no GI issues), may split doses to bid to improve tolerance, remain at highest tolerated dose. MR brain, eval for disproportion of ventricles vs atrophy. Compare vs 2020 study. *Transfer images to [facility].* EEG 1 hour ([place]). Associated Problem(s): Parkinson disease (CMS/HCC) Add Sinemet [...] *Transfer images to [facility].* EEG 1 hour ([place]). Parkinson's disease without dyskinesia or fluctuating manifestations [...] Proverb - utterly unable ... Memory - 3 but only with prompting. (2020) CNN - [...] medications on file as of 07/19/2024. Lydia Burris M.D. [facility] Neurology ? [address] ? [place], [place] [address] ? ? fax Neurology ? Clinical Neurophysiology ? Epilepsy ? Sleep Disorders ? Clinical Informatics documented in this encounter [facility] 06-16-2024 Miscellaneous Notes Received the ordered urine culture results and US report from Noris Pinon RN from [facility] where the Pt. Resides. Culture results were [...] BID x 7 days. Order faxed to [place] at [phone] as well. Nothing further at this time. documented in this encounter [facility] 06-16-2024 Telephone encounter Note Received the ordered urine culture results and US report from Noris Pinon RN from [facility] where the Pt. Resides. Culture results were very dark and hard to read. This nurse contacted the facility to see if there was any way to email a copy of this to see if it was easier to read. She stated she would try to email it to this nurse. Email was given. Awaiting the results. [facility] 06-16-2024 Telephone encounter Note Received emailed culture results. Culture results and US report sent to Dr Edmund MD. Received new orders for Pt. For ATB. New order was called into Noris Bolaños RN. New order for ATB per Dr Edmund MD: If sensitive to Amoxicillin/Ampicillin 500 mg PO BID x 7 days. Order faxed to [place] at [phone] as well. Nothing further at this time. [facility] 06-08-2024 Miscellaneous Notes [facility] bladder solution. Shalini. Diagnosis urinary incontinence documented in this encounter [facility] 06-08-2024 Telephone encounter Note [facility] bladder solution. Shalini. Diagnosis urinary incontinence [facility] 06-08-2024 History of Present illness Narrative Images from the original note were not included. [address] [place] [address] A [facility] [phone] Patient: Leanna Nelson Date of : 1940 [...] weakness Hallucinations, unspecified Hyperlipidemia Hypothyroidism Pulmonary fibrosis (CMS-HCC) Unspecified thoracic, thoracolumbar and lumbosacral intervertebral disc [...] ureter - [facility] [place] Urinary incontinence, unspecified type - [facility] [place] - Ultrasound retroperitoneal complete; Future - Urine [...] without great benefit. Plan: Renal bladder ultrasound. [facility] bladder solution. Digital rectal exam at the time of cystoscopy. Follow-up: Urine culture was ordered for his nursing care facility. Patient should have a renal bladder ultrasound through [facility]. Setup OR. Chadd Gonzalez MD I, Chadd [...] for your understanding. documented in this encounter [facility] 05-30-2024 Note [place] [facility] Subjective Leanna Nelson is [...] (premature atrial contraction) Coronary artery disease involving akiak coronary artery of akiak heart without angina pectoris Hx of CABG [...] shortness of breath. He lives in a alf. His blood pressure is elevated today. Review [...] , Rfl: lev (more content not included)... [facility] 06-24-2023 Note [place] [facility] Subjective Leanna Nelson is a 82 y.o. year old male patient being seen for 6 mo follow up CAD, hypertension, chronic diastolic heart failure, and carotid artery stenosis. Had routine labs in Mar 2023. Doing well from cardiac standpoint. No recurrent syncope. Patient Active Problem List Diagnosis Chronic diastolic heart failure (CMS/HCC) PAC (premature atrial contraction) Coronary artery disease involving akiak coronary artery of akiak heart without angina pectoris Hx of CABG [...] multivitamin (more content not included)... [facility] 03-23-2023 Note HNO ID: [id number] Author: Jodi Banerjee, DO Service: ? Author Type: Physician Type: Progress Notes Filed: 03/23/2023 2:41 PM Note Text: [facility] [place] Follow-up visit March 23, 2023 HPI: Overall [...] encounter he has moved and low lives [place] [facility]. He states he does not [...] mainly his brother. He has seen by cylinder grinder in 01/2023 with suggestion that he get a hearing aide but he refuses. After his last encounter he has followed up with cardiology concerning his heart rate that was auscultated on last encounter. They checked his heart rhythm and thought it was appropriate. This was as via physician in [place]. They deny other changes to his health and/or medications except for the above since our last encounter. PAST MEDICAL HISTORY Diagnosis Date Arthritis Carotid stenosis Coronary artery disease Coronary atherosclerosis of unspecified type of vessel, akiak or graft 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 Dyslipidemia Hypertension Hypertension Hypothyroid Lumbar disc disease Unspecified hypothyroidism Hypothyroidism PAST SURGICAL HISTORY Procedure Laterality Date PAST SURGICAL HISTORY OF CABG times 6 left internal thoracic artery to the [id number]-kh-[id number] left anterior descending artery, reverse saphenous vein [...] tablet Take 5 (more content not included)... [facility] 03-23-2023 Miscellaneous Notes 03/23/2023 After visit Summary faxed to Dr Hopkins with confirmation received. PSS forgot to have pt complete release of information forms. This nurse has placed 2 copies in [place] mail for pt to complete and take to facility to release information to our office. VIDHYA was advised via voice message to send a [employer] msg if he had any further question. Terri Santos Lpn documented in this encounter [facility] 03-23-2023 Instructions Jodi Banerjee DO - 03/23/2023 2:40 PM EDT Please sign records release for last blood test results. documented in this encounter [facility] 03-23-2023 History of Present illness Narrative [facility] [place] Follow-up visit March 23, 2023 HPI: Overall [...] encounter he has moved and low lives [place] [facility]. He states he does not [...] mainly his brother. He has seen by cylinder grinder in 01/2023 with suggestion that he get a hearing aide but he refuses. After his last encounter he has followed up with cardiology concerning his heart rate that was auscultated on last encounter. They checked his heart rhythm and thought it was appropriate. This was as via physician in [place]. They deny other changes to his health and/or medications except for the above since our last encounter. PAST MEDICAL HISTORY Diagnosis Date Arthritis Carotid stenosis Coronary artery disease Coronary atherosclerosis of unspecified type of vessel, akiak or graft 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 Dyslipidemia Hypertension Hypertension Hypothyroid Lumbar disc disease Unspecified hypothyroidism Hypothyroidism PAST SURGICAL HISTORY Procedure Laterality Date PAST SURGICAL HISTORY OF CABG times 6 left internal thoracic artery to the lal-cz-zdmigm left anterior descending artery, reverse saphenous vein [...] with more than 50% of the total pygr-xo-ysiq time of the visit in counseling / coordination of care. documented in this encounter [facility] 08-27-2022 Note HNO ID: [id number] Author: Jodi Banerjee DO Service: ? Author Type: Physician Type: Progress Notes Filed: 08/27/2022 2:35 PM Note Text: [facility] [place] New Patient Consultation August 27, 2022 HPI: [...] while there. They have been working with licensed master social worker at the facility he is [...] Coronary atherosclerosis of unspecified type of vessel, akiak or graft 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 Dyslipidemia Hypertension Hypertension Hypothyroid Lumbar disc disease Unspecified hypothyroidism Hypothyroidism PAST SURGICAL HISTORY Procedure Laterality Date PAST SURGICAL HISTORY OF CABG times 6 left internal thoracic artery to the ssb-mn-xbswyy left anterior descending artery, reverse saphenous vein [...] Former Packs/day: 1.0 (more content not included)... [facility] 08-27-2022 History of Present illness Narrative [facility] [place] New Patient Consultation August 27, 2022 HPI: [...] while there. They have been working with licensed master social worker at the facility he is [...] Coronary atherosclerosis of unspecified type of vessel, akiak or graft 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 Dyslipidemia Hypertension Hypertension Hypothyroid Lumbar disc disease Unspecified hypothyroidism Hypothyroidism PAST SURGICAL HISTORY Procedure Laterality Date PAST SURGICAL HISTORY OF CABG times 6 left internal thoracic artery to the rfo-di-mzihma left anterior descending artery, reverse saphenous vein [...] with more than 50% of the total fcla-mj-gsdl time of the visit in counseling / coordination of care. documented in this encounter [facility] 05-28-2011 History of Past i llness Narrative Problem Noted Date Resolved Date Stress hyperglycemia 05/28/2011 06/01/2011 Overview: RHI gtt per ICU protocol Mechanically assisted ventilation 05/28/2011 05/29/2011 Overview: Extubated 05/29/11 no increased work of breathing Hypotension 05/28/2011 05/30/2011 Overview: Levo off this morning, hemodynamically stable. documented as of this encounter (statuses as of 08/27/2022) [facility] History of Past illness Narrative* Problem Noted Date Diagnosed Date Resolved Date Stress hyperglycemia 05/28/2011 011 Overview: RHI gtt per ICU protocol Mechanically assisted ventilation 05/28/2011 05/29/2011 Overview: Extubated 05/29/11 no increased work of breathing Hypotension 05/28/2011 05/30/2011 Overview: Levo off this morning, hemodynamically stable. documented as of this encounter (statuses as of 03/24/2023) [facility] History of Past illness Narrative* Problem Noted Date Diagnosed Date Resolved Date Stress hyperglycemia 05/28/2011 011 Overview: RHI gtt per ICU protocol Mechanically assisted ventilation 05/28/2011 05/29/2011 Overview: Extubated 05/29/11 no increased work of breathing Hypotension 05/28/2011 05/30/2011 Overview: Levo off this morning, hemodynamically stable. documented as of this encounter (statuses as of 03/24/2023) [facility] Altered mental status, unspecified altered mental status type- Primary Vitamin D deficiency, unspecified [facility] Diagnosis Altered mental status, unspecified altered mental status type- Primary Memory loss [facility] Diagnosis Cognitive decline- Primary Parkinson's disease without dyskinesia or fluctuating manifestations (CMS/HCC) Polyneuropathy Unspecified hereditary and idiopathic peripheral neuropathy documented in this encounter [facility]* Diagnosis Functional urinary incontinence- Primary Other specified disorders of kidney and ureter Urinary incontinence, unspecified type [facility] Diagnosis Cognitive decline- Primary 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 Advance Directive(s) 08/27/2022 1:25 PM Additional Source Comments (unrecognized sect ion and content) No Status Records FoundNo Status Records FoundNo Status Records FoundNo Status Records FoundNo Status Records FoundNo Status Records FoundNo Status Records FoundNo Status Records Found INFORMATION SOURCE (unrecogn ized section and content) DATE CREATED AUTHOR 12/29/2017 [facility] DATE CREATED AUTHOR AUTHOR'S ORGANIZ ATION 12/30/2017 [facility] DATE CREATED AUTHOR AUTHOR'S ORGANIZ ATION 08/28/2022 [facility] DATE CREATED AUTHOR AUTHOR'S ORGANIZ ATION 12/12/2022 [facility] DATE CREATED AUTHOR AUTHOR'S ORGANIZ ATION 03/25/2023 [facility] DATE CREATED AUTHOR AUTHOR'S ORGANIZ ATION 06/02/2024 [facility] DATE CREATED AUTHOR AUTHOR'S ORGANIZ ATION 09/16/2024 [facility] DATE CREATED AUTHOR AUTHOR'S ORGANIZ ATION 12/21/2024 [facility] Source Comments (unrecognize d section and content) In the event this informatio n is protected by the Federal Confidentiality of Alcohol and Drug Abuse Patient Records regulations: The Federal rules restrict any use of the information to criminally investigate or prosecute any alcohol or drug abuse patient.[facility] the event this information is protected by the Federal Confidentiality of Alcohol and Drug Abuse Patient Records regulations: The Federal rules restrict any use of the information to criminally investigate or prosecute any alcohol or drug abuse patient.[facility] the event this information is protected by the Federal Confidentiality of Alcohol and Drug Abuse Patient Records regulations: The Federal rules restrict any use of the information to criminally investigate or prosecute any alcohol or drug abuse patient.[facility] Reason for Visit (unrecogniz ed section and content) Reason Comments New Patient Reason Comments Follow Up Reason Comments Memory Loss Reason Comments Urinary Incontinence Specialty Diagnoses / Procedures Referred By Sandip luciano Referred To Contact Urology Diagnoses Other specified disorders of kidney and ureter Urinary incontinence, unspecified type Pipe Hopkins MD [address] [place] [id number] Phone: tel:[phone] fax: [facility] [address] [place] [phone] Phone: tel: fax: Referral ID Status Reason Start Date Expiration Date Visits Requested Visits Authorized [id number] Pending Review Specialty Services Required 04/12/2024 04/12/2025 1 1 Reason Comments cognitive decline Care Teams (unrecognized sec tion and content) 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 Start Date End Date Pipe Hopkins MD [address] [place] [id number] PCP - General 05/19/11 [facility] [address] [address] Primary Staff Physician Cardiology 09/21/18 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 [employer] provides no warranty or guarantee of the accuracy or completeness of information in this document.
--- NOTE | 2025-02-21 18:52 | ECG_ITS ---
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 Measurements Intervals Allons Rate: 60 P: 43 NE: 246 QRS: -5 QRSD: 98 T: 76 QT: 434 QTc: 435 Interpretive Statements 1100 Sinus rhythm 2231 First degree AV block 9150 abnormal ECG Compared to ECG 07/01/2022 18:32:37 Sinus bradycardia no longer present Electronically Signed On 02-22-2025 18:19:25 EDT by AYSE BARNES M.D.
--- NOTE | 2025-02-21 19:00 | ED.GENADUL1 ---
HPI HPI - General Adult General Chief complaint: Wound/Laceration Stated complaint: FOOT ABCESS Time Seen by Provider: 02/21/25 18:35 Source: patient Mode of arrival: ambulance Limitations: no limitations History of Present Illness HPI narrative: The patient is coming to the ER with a right foot swelling and pain that been going on at least for the last few months, the [facility]. He does have a history of show in as hypothyroid and he denies any fever or chills or any nausea or vomiting He mentioned that he had a history of cellulitis in the right leg Related Data Home Medications ?Medication ?Instructions ?Recorded ?Confirmed acetaminophen 500 mg tablet 500 mg PO DAILY 02/05/24 02/21/25 aspirin 81 mg tablet,delayed 81 mg PO DAILY 02/05/24 02/21/25 release hydrochlorothiazide 25 mg tablet 25 mg PO DAILY 02/05/24 02/05/24 levothyroxine 100 mcg tablet 100 mcg PO DAILY 02/05/24 02/21/25 liothyronine 5 mcg tablet 5 mcg PO DAILY 02/05/24 02/21/25 B-complex with vitamin C 1 cap PO DAILY 02/21/25 02/21/25 acetaminophen 500 mg tablet 1,000 mg PO Q6H PRN fever or pain 02/21/25 02/21/25 (Tylenol Extra Strength) amlodipine 2.5 mg tablet 2.5 mg PO DAILY 02/21/25 02/21/25 bisacodyl 10 mg rectal suppository 10 mg [place] DAILY PRN constipation 02/21/25 02/21/25 carbidopa 25 mg-levodopa 100 mg 1 tab PO TID 02/21/25 02/21/25 tablet cholecalciferol (vitamin D3) 50 2,000 unit PO DAILY 02/21/25 02/21/25 mcg (2,000 unit) capsule donepezil 10 mg tablet 15 mg PO DAILY 02/21/25 02/21/25 folic acid 400 mcg tablet 400 mcg PO DAILY 02/21/25 02/21/25 hydrochlorothiazide 50 mg tablet 50 mg PO DAILY 02/21/25 02/21/25 memantine 10 mg tablet 10 mg PO BID 02/21/25 02/21/25 multivitamin 1 tab PO DAILY 02/21/25 02/21/25 polyvinyl alcohol 2 drp ophthalmic (eye) .Q2 PRN dry 02/21/25 02/21/25 eyes sertraline 25 mg tablet 25 mg PO BEDTIME 02/21/25 02/21/25 tolterodine 1 mg tablet 1 mg PO Q12H 02/21/25 02/21/25 Allergies Allergy/AdvReac Type Severity Reaction Status Date / Time atorvastatin (From Lipitor) Allergy Severe Muscle Pain Verified 02/21/25 18:19 Opioid HPI Opioid Management Most Recent Opioid Data: Last Pain Scale 0 Today, 18:24 Review of Systems ROS Status of ROS 10 or more systems reviewed and unremarkable except as noted in history and below [facility] Medical History (Updated 02/21/25 @ 18:43 by Meenu Lord) 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 ?I25.10 - Atherosclerotic heart disease of tribal coronary artery without angina pectoris (ICD-10) ?I25.84 - Coronary atherosclerosis due to calcified coronary lesion (ICD-10) Abnormality of gait and mobility ?R26.9 - Unspecified abnormalities of gait and mobility (ICD-10) Overactive bladder ?N32.81 - Overactive bladder (ICD-10) Syncope and collapse ?R55 - Syncope and collapse (ICD-10) Rhabdomyolysis ?M62.82 - Rhabdomyolysis (ICD-10) Hallucination ?R44.3 - Hallucinations, unspecified (ICD-10) Altered mental status ?R41.82 - Altered mental status, unspecified (ICD-10) Muscle weakness (generalized) ?M62.81 - Muscle weakness (generalized) (ICD-10) Hyperlipemia ?E78.5 - Hyperlipidemia, unspecified (ICD-10) Hx of angina pectoris ?Z86.79 - Personal history of other diseases of the circulatory system (ICD-10) Hx of migraine headaches ?Z86.69 - Personal history of other diseases of the nervous system and sense organs (ICD-10) Hx of pulmonary fibrosis ?Z87.09 - Personal history of other diseases of the respiratory system (ICD-10) History of intervertebral disc disorder ?Z87.39 - Personal history of other diseases of the musculoskeletal system and connective tissue (ICD-10) Hx of essential hypertension ?Z86.79 - Personal history of other diseases of the circulatory system (ICD-10) History of hypothyroidism ?Z86.39 - Personal history of other endocrine, nutritional and metabolic disease (ICD-10) Surgical History (Updated 11/28/24 @ 10:18 by Kaiser Guillen) Hx of coronary artery bypass graft ?Z95.1 - Presence of aortocoronary bypass graft (ICD-10) Hx of hernia repair ?Z98.890 - Other specified postprocedural states (ICD-10) ?Z87.19 - Personal history of other diseases of the digestive system (ICD-10) Social History Little interest or pleasure in doing things: not at all Feeling down, depressed, or hopeless: not at all Exam Narrative Exam Narrative: Nurses notes and vital signs reviewed and patient is not hypoxic. General: Well-appearing and in no apparent distress. Skin: Warm, dry, no pallor noted. No rash. Head: Normocephalic, atraumatic. Neck: Supple, non-tender. Eye: Pupils are equal, round and EOMI. No scleral icterus Cardiovascular: Regular Rate and Rhythm without murmur, gallop or rub. Respiratory: No accessory muscle use or respiratory distress. Lungs are clear to auscultation, no wheezing, rales or rhonchi Chest Wall: no tenderness Back: No midline thoracic or lumbar vertebral tenderness. No CVA tenderness Musculoskeletal: Patient have a right leg extensive edema and swelling to the mid right tibia with no ulcer although the patient have some abrasion in the foot there is no abscess that was appreciated and the patient have cellulitis of the dorsum of the right foot with redness hotness and tenderness and the patient have a good anterior tibial pulse bilaterally GI: Abdomen is soft, non-distended. Normal bowel sounds. No masses appreciated. No tenderness to palpation. No rebound, guarding, or rigidity noted. Neurological: A&O x4. No cranial nerve dysfunction observed. Constitutional Vital Signs, click to edit/add: Last Vital Signs Temp 97.6 F 02/21/25 18:15 Pulse 71 02/21/25 18:15 Resp 16 02/21/25 18:15 BP 152/84 H 02/21/25 18:15 Pulse Ox 99 02/21/25 18:15 Course Vital Signs Vital signs: Vital Signs Temperature 97.6 F 02/21/25 18:15 Pulse Rate 71 02/21/25 18:15 Respiratory Rate 16 02/21/25 18:15 Blood Pressure 152/84 H 02/21/25 18:15 Pulse Oximetry 99 02/21/25 18:15 Temperature 97.6 F 02/21/25 18:15 Pulse Rate 71 02/21/25 18:15 Respiratory Rate 16 02/21/25 18:15 Blood Pressure 152/84 H 02/21/25 18:15 Pulse Oximetry 99 02/21/25 18:15 Discharge Plan Discharge Patient Disposition: Still a Patient
[2025-02-21 19:50] LABS: Hematocrit 42.6 % (42.0-54.0); Hemoglobin 13.5 g/dL (14.0-18.0); Immature Granulocytes Abs Auto 0.02 10^3/uL (0.00-0.03); Immature Granulocytes Pct Auto 0.3 % (0.0-0.5); Lymphocytes Absolute Auto 2.1 10^3/uL (1.2-3.8); Mean Corpuscular HGB Conc 31.7 g/dL (29.9-35.2); Mean Corpuscular Hemoglobin 29.2 pg (25.9-34.0); Mean Corpuscular Volume 92.0 fL (80.0-94.0); Platelet Count 189 10^3/uL (150-450); Red Blood Count 4.63 10^6/uL (4.70-6.10); White Blood Count 7.2 10^3/uL (4.0-11.0)
[2025-02-21 20:08] LABS: Alanine Aminotransferase 12 U/L (16-63); Albumin Globulin Ratio 0.9; Albumin Level 3.8 g/dL (3.4-5.0); Alkaline Phosphatase 107 U/L (46-116); Anion Gap 11.6; Aspartate Amino Transferase 17 U/L (15-37); Blood Urea Nitrogen 60.0 mg/dL (7.0-18.0); Calcium 9.1 mg/dL (8.5-10.1); Carbon Dioxide 27.1 mmol/L (21.0-32.0); Chloride 106 mmol/L (98-107); Estimated GFR (African America 30 (>=60 mL/min/1.73m^2); Estimated GFR (Non-African Ame 25 (>=60 mL/min/1.73m^2); Globulin 4.1 g/dL; Glucose 106 mg/dL (74-106); Potassium 3.7 mmol/L (3.5-5.1); Sodium 141 mmol/L (136-145); Total Protein 7.9 g/dL (6.4-8.2)
[2025-02-21 20:12] LABS: Lactate/Lactic Acid 1.0 mmol/L (0.4-2.0)
--- NOTE | 2025-02-21 22:04 | ED.GENADUL1 ---
HPI HPI - General Adult General Chief complaint: Wound/Laceration Stated complaint: FOOT ABCESS Time Seen by Provider: 02/21/25 18:35 Source: patient Mode of arrival: ambulance Limitations: no limitations History of Present Illness HPI narrative: The patient was initially seen by Dr. Nicole and signed out to me after discussing the case with her thoroughly. Please see her full history and physical exam. Related Data Home Medications ?Medication ?Instructions ?Recorded ?Confirmed acetaminophen 500 mg tablet 500 mg PO DAILY 02/05/24 02/21/25 aspirin 81 mg tablet,delayed 81 mg PO DAILY 02/05/24 02/21/25 release hydrochlorothiazide 25 mg tablet 25 mg PO DAILY 02/05/24 02/05/24 levothyroxine 100 mcg tablet 100 mcg PO DAILY 02/05/24 02/21/25 liothyronine 5 mcg tablet 5 mcg PO DAILY 02/05/24 02/21/25 B-complex with vitamin C 1 cap PO DAILY 02/21/25 02/21/25 acetaminophen 500 mg tablet 1,000 mg PO Q6H PRN fever or pain 02/21/25 02/21/25 (Tylenol Extra Strength) amlodipine 2.5 mg tablet 2.5 mg PO DAILY 02/21/25 02/21/25 bisacodyl 10 mg rectal suppository 10 mg [place] DAILY PRN constipation 02/21/25 02/21/25 carbidopa 25 mg-levodopa 100 mg 1 tab PO TID 02/21/25 02/21/25 tablet cholecalciferol (vitamin D3) 50 2,000 unit PO DAILY 02/21/25 02/21/25 mcg (2,000 unit) capsule donepezil 10 mg tablet 15 mg PO DAILY 02/21/25 02/21/25 folic acid 400 mcg tablet 400 mcg PO DAILY 02/21/25 02/21/25 hydrochlorothiazide 50 mg tablet 50 mg PO DAILY 02/21/25 02/21/25 memantine 10 mg tablet 10 mg PO BID 02/21/25 02/21/25 multivitamin 1 tab PO DAILY 02/21/25 02/21/25 polyvinyl alcohol 2 drp ophthalmic (eye) .Q2 PRN dry 02/21/25 02/21/25 eyes sertraline 25 mg tablet 25 mg PO BEDTIME 02/21/25 02/21/25 tolterodine 1 mg tablet 1 mg PO Q12H 02/21/25 02/21/25 Allergies Allergy/AdvReac Type Severity Reaction Status Date / Time atorvastatin (From Lipitor) Allergy Severe Muscle Pain Verified 02/21/25 18:19 Opioid HPI Opioid Management Most Recent Opioid Data: Last Pain Scale 0 Today, 18:24 [facility] Medical History (Updated 02/21/25 @ 22:04 by Leonardo Lala MD) Coronary atherosclerosis due to calcified coronary lesion of [place] artery ?I25.10 - Atherosclerotic heart disease of [place] coronary artery without angina pectoris (ICD-10) ?I25.84 - Coronary atherosclerosis due to calcified coronary lesion (ICD-10) Abnormality of gait and mobility ?R26.9 - Unspecified abnormalities of gait and mobility (ICD-10) Overactive bladder ?N32.81 - Overactive bladder (ICD-10) Syncope and collapse ?R55 - Syncope and collapse (ICD-10) Rhabdomyolysis ?M62.82 - Rhabdomyolysis (ICD-10) Hallucination ?R44.3 - Hallucinations, unspecified (ICD-10) Altered mental status ?R41.82 - Altered mental status, unspecified (ICD-10) Muscle weakness (generalized) ?M62.81 - Muscle weakness (generalized) (ICD-10) Hyperlipemia ?E78.5 - Hyperlipidemia, unspecified (ICD-10) Hx of angina pectoris ?Z86.79 - Personal history of other diseases of the circulatory system (ICD-10) Hx of migraine headaches ?Z86.69 - Personal history of other diseases of the nervous system and sense organs (ICD-10) Hx of pulmonary fibrosis ?Z87.09 - Personal history of other diseases of the respiratory system (ICD-10) History of intervertebral disc disorder ?Z87.39 - Personal history of other diseases of the musculoskeletal system and connective tissue (ICD-10) Hx of essential hypertension ?Z86.79 - Personal history of other diseases of the circulatory system (ICD-10) History of hypothyroidism ?Z86.39 - Personal history of other endocrine, nutritional and metabolic disease (ICD-10) Surgical History (Updated 06/02/24 @ 10:18 by [facility] Guillen) Hx of coronary artery bypass graft ?Z95.1 - Presence of aortocoronary bypass graft (ICD-10) Hx of hernia repair ?Z98.890 - Other specified postprocedural states (ICD-10) ?Z87.19 - Personal history of other diseases of the digestive system (ICD-10) Social History Little interest or pleasure in doing things: not at all Feeling down, depressed, or hopeless: not at all Exam Constitutional Vital Signs, click to edit/add: Last Vital Signs Temp 97.6 F 02/21/25 18:15 Pulse 63 02/21/25 20:50 Resp 17 02/21/25 20:50 BP 152/84 H 02/21/25 18:15 Pulse Ox 99 02/21/25 18:15 Course Vital Signs Vital signs: Vital Signs Temperature 97.6 F 02/21/25 18:15 Pulse Rate 71 02/21/25 18:15 Respiratory Rate 16 02/21/25 18:15 Blood Pressure 152/84 H 02/21/25 18:15 Pulse Oximetry 99 02/21/25 18:15 Temperature 97.6 F 02/21/25 18:15 Pulse Rate 63 02/21/25 20:50 Respiratory Rate 17 02/21/25 20:50 Blood Pressure 152/84 H 02/21/25 18:15 Pulse Oximetry 99 02/21/25 18:15 Medical Decision Making MDM Narrative Medical decision making narrative: My clinical impression is that he has right leg cellulitis. Dopplers pending at the time of this dictation. Blood cultures are obtained and he is being given antibiotics and will be admitted. Findings were discussed with the patient. Differential Diagnosis Differential Diagnosis: Cellulitis, DVT, abscess Lab Data Lab results reviewed: Yes I reviewed the patient's lab results Labs: Lab Results 02/21/25 Range/Units 19:35 WBC 7.2 (4.0-11.0) 10^3/uL RBC 4.63 L (4.70-6.10) 10^6/uL Hgb 13.5 L (14.0-18.0) g/dL Hct 42.6 (42.0-54.0) % MCV 92.0 (80.0-94.0) fL MCH 29.2 (25.9-34.0) pg MCHC 31.7 (29.9-35.2) g/dL RDW 13.9 (11.0-15.0) % Plt Count 189 (150-450) 10^3/uL MPV 9.1 L (9.5-13.5) fL Neut % (Auto) 56.0 (43.0-75.0) % Lymph % (Auto) 28.6 (20.5-60.0) % Barnwell % (Auto) 11.3 (1.7-12.0) % Eos % (Auto) 3.1 (0.9-7.0) % Baso % (Auto) 0.7 (0.2-2.0) % Neut # (Auto) 4.0 (1.4-6.5) 10^3/uL Lymph # (Auto) 2.1 (1.2-3.8) 10^3/uL [place] # (Auto) 0.8 (0.3-0.8) 10^3/uL Eos # (Auto) 0.2 (0.0-0.7) 10^3/uL Baso # (Auto) 0.1 (0.0-0.1) 10^3/uL Abs Immat Gran (auto) 0.02 (0.00-0.03) 10^3/uL Imm/Tot Granulo (auto) 0.3 (0.0-0.5) % ESR 50 H (<=20) mm/hr Sodium 141 (136-145) mmol/L Potassium 3.7 (3.5-5.1) mmol/L Chloride 106 (98-107) mmol/L Carbon Dioxide 27.1 (21.0-32.0) mmol/L Anion Gap 11.6 BUN 60.0 H (7.0-18.0) mg/dL Creatinine 2.47 H (0.70-1.30) mg/dL Est GFR ( Amer) 30 L (>=60 mL/min/1.73m^2) Est GFR (Non-Af Amer) 25 L (>=60 mL/min/1.73m^2) BUN/Creatinine Ratio 24.3 Glucose 106 (74-106) mg/dL Lactate 1.0 (0.4-2.0) mmol/L Calcium 9.1 (8.5-10.1) mg/dL Total Bilirubin 0.5 (0.2-1.0) mg/dL AST 17 (15-37) U/L ALT 12 L (16-63) U/L Alkaline Phosphatase 107 (46-116) U/L C-Reactive Protein <0.50 (<=0.50) mg/dL Total Protein 7.9 (6.4-8.2) g/dL Albumin 3.8 (3.4-5.0) g/dL Globulin 4.1 g/dL Albumin/Globulin Ratio 0.9 Imaging Data Tibia: Radiologist's impression: ITS Impressions Foot X-Ray 02/21/25 18:35 IMPRESSION: Extensive degeneration and decrease bony mineralization limiting bony detail. No acute bony destruction or fracture. Soft tissue swelling. No subcutaneous air. Impression dictated by: Nguyễn Cagle M.D. 02/21/2025 8:02 PM Dictation Location: [email or web address] Electronically authenticated by: [id number] Y Date: 02/21/2025 20:02 Tibia/Fibula X-Ray 02/21/25 18:36 IMPRESSION: Soft tissue swelling. No subcutaneous air. Impression dictated by: Nguyễn Cagle M.D. 02/21/2025 8:00 PM Dictation Location: [email or web address] Electronically authenticated by: [id number] Y Date: 02/21/2025 20:00 Discharge Plan Discharge Chief Complaint: Wound/Laceration Clinical Impression: Cellulitis of right leg Patient Disposition: Admitted As Inpatient Time of Disposition Decision: 22:03 Condition: Fair
[2025-02-21] MEDS: CEFAZOLIN SODIUM/DEXTROSE,ISO 1 GM/50 ML PREMIX IV (22:55)
[2025-02-22] VITALS (7 sets, daily range): BP systolic 120–180; BP diastolic 60–76; PULSE 49–59; TEMP 36.3–36.6; O2SAT 94–98; BMI 24.1
--- OUTSIDE RECORDS SUMMARY | 2025-02-22 | XMS_ITS | CCD ---
Author Organization [facility] Care Team Providers Care Bedspread Inspector Name Role Phone PHYSICIAN, DEFAULT Unavailable Unavailable PHYSICIAN, DEFAULT Unavailable Unavailable EVELIA, SUNJUK Unavailable Unavailable EVELIA, SUNJUK Unavailable Unavailable EVELIA, SUNJUK Unavailable Unavailable Pipe Hopkins~[phone] UNKNOWN Unavailable Unavailable Pipe Hopkins MD Primary Care Provider [phone] [place] Unavailable PIPE HOPKINS Primary Care [...] Unavailable Hoy Pipe XIONG Primary Care Provider [phone] GeneFarooq Lou Unavailable [phone] JODI BANERJEE Attending Unavailab PIPE Griffith Primary [...] (2 sources) atorvastatin; Translations: [Lipitor] Drug Allergy [facility] Repository (10 sources) atorvastatin; Translations: [ATORVASTATIN CALCIUM] Drug Allergy 4 Hives, Rash [facility] (5 sources) atorvastatin; Translations: [ATORVASTATIN] Drug Allergy 4 Hives, Other (See Comments), Rash, Itching [facility] Repository Medications Current Medications Medication Drug [...] hydrochloride 10 mg oral tablet (2 sources) K-cquxdn-R-aspartate Receptor Antagonist Start: 08-16-2024 memantine (Namenda) 10 [...] Coronary arteriosclerosis; Translations: [Atherosclerotic heart disease of [place] coronary artery without angina pectoris] Onset: 05-27-2011 [...] 07-14-2022 Episodic Other aftercare (1 source) termite helper (current) use of aspirin; Translations: [HALF-WAY CURRENT USE OF ASPIRIN] Onset: 07-14-2022 Episodic Other aftercare (1 source) Other alf (current) drug therapy; Translations: [OTH MEDICAL SCIENCE LIAISON CURRENT DRUG THERAPY] Onset: 07-14-2022 Episodic Other [...] width (RBC) [Ratio] 14.0 % Normal 11.5-15 [facility] Comment on above: Performed By: #### C BC #### [facility] ([address] [address] VIR Hematocrit (Bld) [Volume fraction] 42.4 % Normal 39-50 [facility] Comment on above: Performed By: #### C BC #### [facility] ([address] [address] VIR Hemoglobin (Bld) [Mass/Vol] 13.9 g/dL Normal 13-17 [facility] Comment on above: Performed By: #### C BC #### [facility] ([address] [address] VIR MCH (RBC) [Entitic mass] 29.8 pg Normal 27-34 [facility] Comment on above: Performed By: #### C BC #### [facility] ([address] [address] VIR MCHC (RBC) [Mass/Vol] 32.8 g/dL Normal 32-36 [facility] Comment on above: Performed By: #### C BC #### [facility] ([address] [address] VIR MCV (RBC) [Entitic vol] 91 fL Normal 80-100 [facility] Comment on above: Performed By: #### C BC #### [facility] ([address] [address] VIR Platelet mean volume (Bld) [Entitic vol] 8.1 fL Normal 7-12 [facility] Comment on above: Performed By: #### C BC #### [facility] ([address] [place] [address] VIR Platelets (Bld) [#/Vol] 244 10*3/uL Normal 150-450 [facility] Comment on above: Performed By: #### C BC #### [facility] ([address] [place] [address] VIR RBC COUNT 4.67 X10E12/L Normal 4.1-5.7 [facility] Comment on above: Performed By: #### C BC #### [facility] ([address] [place] [address] VIR WBC (Bld) [#/Vol] 8.5 10*3/uL Normal 4-11 [facility] Comment on above: Performed By: #### C BC #### [facility] ([address] [place] [address] VIR ELECTROLYTE PANELon 16-20 25 Anion gap [Moles/Vol] 8 mmol/L Normal 5-15 [facility] Comment on above: Performed By: #### E LEC #### [facility] ([address] [place] [address] VIR Chloride [Moles/Vol] 102 mmol/L Normal 98-109 [facility] Comment on above: Performed By: #### E LEC #### [facility] ([address] [place] [address] VIR CO2 [Moles/Vol] 25 mmol/L Normal 22-32 [facility] Comment on above: Performed By: #### E LEC #### [facility] ([address] [place] [address] VIR Potassium [Moles/Vol] 3.9 mmol/L Normal 3.5-5.0 [facility] Comment on above: Performed By: #### E LEC #### [facility] ([facility]) [address] [place] [address] VIR Sodium [Moles/Vol] 135 mmol/L Normal 134-146 [facility] Comment on above: Performed By: #### E LEC #### [facility] ([facility]) [address] [place] [address] VIR LIPID PROFILEon 12-19-2024 Cholesterol [Mass/Vol] 150 mg/dL Normal 150-200 [facility] Comment on above: Performed By: #### L IPR #### [facility] ([facility]) [address] [place] [address] VIR Cholesterol in HDL [Mass/Vol] 61 mg/dL Normal >39 [facility] Comment on above: Result Comment: HDL <40 mg/dL - High Risk HDL > or = 40mg/dL- Desirable HDL >60 mg/dL - Negative Risk Performed By: #### L IPR #### [facility] ([facility]) [address] [place] [address] VIR Cholesterol in LDL [Mass/Vol] 63 mg/dL Normal <130 [facility] Comment on above: Result Comment: LDL <100 mg/dL - Desirable LDL >160 mg/dL - High Risk Performed By: #### L IPR #### [facility] ([facility]) [address] [place] [address] VIR CHOLESTEROL:HDL 2.5 Normal 1.0-5.0 [facility] Comment on above: Performed By: #### L IPR #### [facility] ([facility]) [address] [place] [address] VIR Triglyceride [Mass/Vol] 130 mg/dL Normal 27-150 [facility] Comment on above: Performed By: #### L IPR #### [facility] ([facility]) [address] [place] [address] VIR VERY LOW LIPOPROTEIN 26 mg/dL Normal 0-30 [facility] Comment on above: Performed By: #### L IPR #### [facility] ([facility]) [address] [place] [address] VIR TSHon 12-19-2024 TSH 1.16 uIU/mL Normal 0.49-4.67 [facility] Comment on above: Performed By: #### T SH #### [facility] ([facility]) [address] [address] VIR VITAMIN D 25 HYDROXYon 12-19 VITAMIN D 25 HYD TOT 39.0 ng/mL Normal 30.0-100.0 [facility] Comment on above: Order Comment: Vitam in D status 25 [place] Vitamin D Deficiency <20 ng/mL Insufficiency 20-29 ng/mL Sufficiency 30-100 ng/mL Toxicity >100 ng/mL NOTE: A pediatric reference range has not been established by the clean room assembler of this kit. The [place] [employer] recommends a Vitamin D level of = or >20ng/mL in infants and children. Performed By: #### V ITD #### [facility] ([facility]) [address] [place] [address] VIR CBC AND AUTO DIFFon 07-22-19 25 ABSOLUTE BASOPHIL 0.1 X10E9/L Normal 0.0-0.2 [facility] Comment on above: Performed By: #### C BCA, THYR, 3051-0 #### [facility] ([id number]) [address] [place] [address] ABSOLUTE NEUTROPHIL 4.9 X10E9/L Normal 1.5-6.6 [facility] Comment on above: Performed By: #### C BCA, THYR, 3051-0 #### [facility] ([id number]) [address] [place] [address] Basophils/100 WBC (Bld) 1.3 % Normal [facility] Comment on above: Performed By: #### C MYAH, THYR, 0 #### [facility] ([id number]) [address], [facility] [address] [place] [address] Eosinophils (Bld) [#/Vol] 0.3 10*3/uL Normal 0.0-0.4 [facility] Comment on above: Performed By: #### C BCA, THYR, 0 #### [facility] ([id number]) [address], [facility] [address] [place] [address] Eosinophils/100 WBC (Bld) 3.5 % Normal [facility] Comment on above: Performed By: #### Soni GLASGOW, THYR, #### [facility] ([id number]) [address], [facility] [address] [place] [address] Erythrocyte distribution width (RBC) [Ratio] 13.5 % Normal 11.5-15.0 [facility] Comment on above: Performed By: #### Soni GLASGOW, THYR, #### [facility] ([id number]) [address] [address] [place] [address] Hematocrit (Bld) [Volume fraction] 41.0 % Normal 39-49 [facility] Comment on above: Performed By: #### Soni GLASGOW, THYR, 0 #### [facility] ([id number]) [address], [facility] [address] [place] [address] Hemoglobin (Bld) [Mass/Vol] 13.3 g/dL Normal 13.0-17.0 [facility] Comment on above: Performed By: #### Soni BCA, THYR, 0 #### [facility] ([id number]) [address] [place] [address] Lymphocytes (Bld) [#/Vol] 2.6 10*3/uL Normal 1.0-3.5 [facility] Comment on above: Performed By: #### Soni GLASGOW THYR, #### [facility] ([id number]) [address] [place] [address] Lymphocytes/100 WBC (Bld) 30.3 % Normal [facility] Comment on above: Performed By: #### Soni GLASGOW THYR, 0 #### [facility] ([id number]) [address] [place] [address] MCH (RBC) [Entitic mass] 29.5 pg Normal 27-34 [facility] Comment on above: Performed By: #### Soni GLASGOW THYR, #### [facility] ([id number]) [address] [place] [address] MCHC (RBC) [Mass/Vol] 32.3 g/dL Normal 32-36 [facility] Comment on above: Performed By: #### Soni GLASGOW THYR, #### [facility] ([id number]) [address] [place] [address] MCV (RBC) [Entitic vol] 91 fL Normal 80-100 [facility] Comment on above: Performed By: #### Soni GLASGOW THYR, #### [facility] ([id number]) [address], [address] [place] [address] Monocytes (Bld) [#/Vol] 0.8 10*3/uL Normal 0-0.9 [facility] Comment on above: Performed By: #### Soni GLASGOW THYR, #### [facility] ([id number]) [address], [address] [place] [address] Monocytes/100 WBC (Bld) 9.4 % Normal [facility] Comment on above: Performed By: #### Soni GLASGOW, THYR, 0 #### [facility] ([id number]) [address], [address] [place] [address] Neutrophils/100 WBC (Bld) 55.5 % Normal [facility] Comment on above: Performed By: #### Soni GLASGOW, THYR, 3050-0 #### [facility] ([id number]) [address] [place] [address] Platelet mean volume (Bld) [Entitic vol] 8.0 fL Normal 7-12 [facility] Comment on above: Performed By: #### Soni GLASGOW, THYR, 0 #### [facility] ([id number]) [address] [address] [place] [address] Platelets (Bld) [#/Vol] 231 10*3/uL Normal 150-450 [facility] Comment on above: Performed By: #### Soni GLASGOW, THYR, 0 #### [facility] ([id number]) [address], [facility] [address] [place] [address] RBC COUNT 4.49 X10E12/L Normal 4.10-5.70 [facility] Comment on above: Performed By: #### Soni GLASGOW, THYR, 0 #### [facility] ([id number]) [address] [address] [place] [address] WBC (Bld) [#/Vol] 8.8 10*3/uL Normal 4.0-11.0 [facility] Comment on above: Performed By: #### Soni GLASGOW, THYR, 0 #### [facility] ([id number]) [address] [place] [address] FREE T3on 07-22-2024 Free T3 [Mass/Vol] 2.89 pg/mL Normal 2.50-3.90 [facility] Comment on above: Performed By: #### C BCA, THYR, 305-0 #### [facility] ([id number]) [address] [place] [address] THYROID PROFILEon 07-22-2024 Free T4 [Mass/Vol] 1.02 ng/dL Normal 0.61-1.60 [facility] Comment on above: Performed By: #### C BCA, THYR, 305-0 #### [facility] ([id number]) [address] [place] [address] TSH 1.50 uIU/mL Normal 0.49-4.67 [facility] Comment on above: Performed By: #### Soni BCA, THYR, 305-0 #### [facility] ([id number]) [address] [place] [address] Office Visiton 05-30-2024 Follow-up visit [id number] Leanna Nelson 1940 M [facility] Provider Department [place] 05/30/2024 AYSE VIVAR KADEEM Benitez Family History Problem Relation Age of Onset Coronary artery disease Brother Heart attack Brother Heart failure Brother Other Brother Family Status - Relation Status Age at Brother Level of Service:64186 [place] OFFICE/OUTPATIENT ESTABLISHED MOD MDM 30 MIN Normal [facility] Office Visiton 06-24-2023 Follow-up visit [id number] Leanna Nelson 1940 M Date Provider Department Center 06/24/2023 AYSE VIVAR KADEEM Benitez Family History Problem Relation Age of Onset Coronary artery disease Brother Heart attack Brother Heart failure Brother Other Brother Family Status - Relation Status Age at Brother Level of Service:01633 [place] OFFICE/OUTPATIENT ESTABLISHED LOW MDM 20 MIN Normal [facility] CNOVon 03-23-2023 CNOV Office Visit ([facility] ) LEANNA NELSON ([id number]) 1940 M Date Time Provider Department 03/23/23 2:00 PM JODI BANERJEE During your visit today, we recorded the following information about you: Pulse Blood pressure 51/minute 151/68 Jodi Banerjee, DO 03/23/2023 2:41 PM Signed [facility] [place] Follow-up visit March 23, 2023 HPI: Overall [...] encounter he has moved and low lives [facility]. He states he does not [...] mainly his brother. He has seen by it systems engineer in 01/2023 with suggestion that he get a hearing aide but he refuses. After his last encounter he has followed up with cardiology concerning his heart rate that was auscultated on last encounter. They checked his heart rhythm and thought it was appropriate. This was as via physician in [place]. They deny other changes to his health and/or medications except for the above since our last encounter. PAST MEDICAL HISTORY Diagnosis Date Arthritis Carotid stenosis Coronary artery disease Coronary atherosclerosis of unspecified type of vessel, [place] or graft 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 Dyslipidemia Hypertension Hypertension Hypothyroid Lumbar disc disease Unspecified hypothyroidism Hypothyroidism PAST SURGICAL HISTORY Procedure Laterality Date PAST SURGICAL HISTORY OF CABG times 6 left internal thoracic artery to the [id number] left anterior descending artery, reverse saphenous vein [...] mouth onc (more content not included)... [facility] Telephone (NEUAV4) LEANNA NELSON ([id number]) 1940 M Date Time Provider Department 03/23/23 [...] advised via voice message to send a Contraqer msg if he had any further question. 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 Sheysarah Vásquez Cholesterol [Mass/Vol] 149 mg/dL Normal <=200 [facility] Comment on above: Performed By: #### L IPID, CMP ####[facility] [address] [place] [address]Dr. Aissatuo Vásquez Cholesterol in HDL [Mass/Vol] 83 mg/dL Critically high 40-60 [facility] Comment on above: Performed By: #### L IPID, CMP ####[facility] [address] [place] [address]Dr. Aissatou Vásquez Cholesterol in LDL [Mass/Vol] 58.6 mg/dL Normal [facility] Comment on above: Performed By: #### L IPID, CMP ####[facility] [address] [place] [address]Dr. Aissatou Vásquez Cholesterol.total/Cho lesterol in HDL [Mass ratio] 1.8 {ratio} Normal [facility] Comment on above: Performed By: #### L IPID, CMP ####[facility] [address] [place] [address]Dr. Sheylan Vásquez HDL NORMAL > or = 60 mg/dl - LO W CARDIOVASCULAR RISK <40 mg/dl - HIGH CARDIOVASCULAR RISK Normal [facility] Comment on above: Performed By: #### L IPID, CMP ####[facility] [address] [place] [address]Dr. Sheysarah Vásquez LDL CALC NORMAL SEE BELOW Normal [facility] Comment on above: Result Comment: <100 mg/dl OPTIMAL 100 - 129 mg/dl NEAR OR ABOVE OPTIMAL 130 - 159 mg/dl BORDERLINE HIGH 160 - 189 mg/dl HIGH >190 mg/dl VERY HIGH Performed By: #### L IPID, CMP ####[facility] [address] [place] [address]Dr. Aissatou Vásquez Triglyceride [Mass/Vol] 37 mg/dL Normal <=150 [facility] Comment on above: Performed By: #### L IPID, CMP ####[facility] [address] [place] [address]Dr. Aissatou Vásquez VLDL CALC 7.4 mg/dL Normal [facility] Comment on above: Performed By: #### L IPID, CMP ####[facility] [address] [place], [place] [address]Dr. Aissatou Vásquez PROF 14(COMP METB)on 023 Albumin [Mass/Vol] 3.8 g/dL Normal 3.4-5.0 [facility] Comment on above: Performed By: #### L IPID, CMP ####[facility] [address] [place], [place] [address]Dr. Aissatou Vásquez Albumin/Globulin [Mass ratio] 1.0 {ratio} Normal [facility] Comment on above: Performed By: #### L IPID, CMP ####[facility] [address] [place], [place] [address]Dr. Aissatou Vásquez ALP [Catalytic activity/Vol] 98 U/L Normal 46-116 [facility] Comment on above: Performed By: #### L IPID, CMP ####[facility] [address] [place], [place] [address]Dr. Aissatou Vásquez ALT [Catalytic activity/Vol] 25 U/L Normal 16-63 [facility] Comment on above: Performed By: #### L IPID, CMP ####[facility] [address] [place], [place] [address]Dr. Aissatou Vásquez Anion gap [Moles/Vol] 15.5 mmol/L Normal [facility] Comment on above: Performed By: #### L IPID, CMP ####[facility] [address] [place], [place] [address]Dr. Aissatou Vásquez AST [Catalytic activity/Vol] 21 U/L Normal 15-37 [facility] Comment on above: Performed By: #### L IPID, CMP ####[facility] [address] [place], [place] [address]Dr. Aissatou Vásquez Bilirubin [Mass/Vol] 0.5 mg/dL Normal 0.2-1.0 [facility] Comment on above: Performed By: #### L IPID, CMP ####[facility] [address] [place], [place] [address]Dr. Aisstaou Vásquez Calcium [Mass/Vol] 9.5 mg/dL Normal 8.5-10.1 [facility] Comment on above: Performed By: #### L IPID, CMP ####[facility] [address] [place], [place] [address]Dr. Aissatou Vásquez Chloride [Moles/Vol] 107 mmol/L Normal 98-107 [facility] Comment on above: Performed By: #### L IPID, CMP ####[facility] [address] [place], [place] [address]Dr. Aissatou Vásquez CO2 [Moles/Vol] 23.0 mmol/L Normal 21.0-32.0 [facility] Comment on above: Performed By: #### L IPID, CMP ####[facility] [address] [place], [place] [address]Dr. Aissatou Vásquez Creatinine [Mass/Vol] 1.75 mg/dL Critically high 0.70-1.30 [facility] Comment on above: Performed By: #### L IPID, CMP ####[facility] [address] [place], [place] [address]Dr. Aissatou Vásquez EGFR-AF JORDANIAN 45 mL/min/1.73m2 Critically low >=60 [facility] Comment on above: Performed By: #### L IPID, CMP ####[facility] [address] [place], [place] [address]Dr. Aissatou Vásquez EGFR-NON AF JORDANIAN 37 mL/min/1.73m2 Critically low >=60 [facility] Comment on above: Performed By: #### L IPID, CMP ####[facility] [address] [place] [address]Dr. Aissatou Vásquez Globulin (S) [Mass/Vol] 3.7 g/dL Normal [facility] Comment on above: Performed By: #### L IPID, CMP ####[facility] [address] [place] [address]Dr. Aissatou Vásquez Glucose [Mass/Vol] 83 mg/dL Normal 74-106 [facility] Comment on above: Performed By: #### L IPID, CMP ####[facility] [address] [place], [place] [address]Dr. Aissatou Vásquez Potassium [Moles/Vol] 4.5 mmol/L Normal 3.5-5.1 [facility] Comment on above: Performed By: #### L IPID, CMP ####[facility] [address] [place], [place] [address]Dr. Aissatou Vásquez Protein [Mass/Vol] 7.5 g/dL Normal 6.4-8.2 [facility] Comment on above: Performed By: #### L IPID, CMP ####[facility] [address] [place], [place] [address]Dr. Aissatou Vásquez Sodium [Moles/Vol] 141 mmol/L Normal 136-145 [facility] Comment on above: Performed By: #### L IPID, CMP ####[facility] [address] [place], [place] [address]Dr. Aissatou Vásquez Urea nitrogen [Mass/Vol] 46.0 mg/dL Critically high 7.0-18.0 [facility] Comment on above: Performed By: #### L IPID, CMP ####[facility] [address] [place], [place] [address]Dr. Aissatou Vásquez Urea nitrogen/Creatinine [Mass ratio] 26.3 mg/mg Normal [facility] Comment on above: Performed By: #### L IPID, CMP ####[facility] [address] [place], [place] [address]Dr. Aissatou Vásquez 25(OH)D3 [facility] 02-22- 2023 25-hydroxyvitamin D3 [Mass/Vol] 28.6 ng/mL Low 31.0-80.0 [facility] Comment on above: Order Comment: Speci men Type: BLOOD SPECIMEN Ordering Facility: [facility] Address: [address] [place] [address] Result Comment: Clas sification of 25 [place] Vitamin D status: Deficiency/Insufficiency: < or = 30 ng/ml. Sufficiency/Optimal Levels: 31-80 ng/mL Toxicity: > 100 ng/mL. Test performed by chemiluminescent immunoassay. Performed By: #### 1 989-3 #### [facility] CLIA [id number] [address] [facility] [id number] [address] [facility] CNOVon 08-27-2022 CNOV Office Visit (NEUAV4 ) LEANNA NELSON Torey ([id number]) 1940 M Date Time Provider Department 08/27/22 1:00 PM JODI BANERJEE4 During your visit today, we recorded the following information about you: Pulse Blood pressure 69/minute 156/70 Jodi Banerjee DO 08/27/2022 2:35 PM Addendum [facility] [place] New Patient Consultation August 27, 2022 HPI: Mr. Nelsno, who is accompanied by his brother and [...] while there. They have been working with web content & social media manager at the facility he [...] Coronary atherosclerosis of unspecified type of vessel, [place] or graft 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 Dyslipidemia Hypertension Hypertension Hypothyroid Lumbar disc disease Unspecified hypothyroidism Hypothyroidism PAST SURGICAL HISTORY Procedure Laterality Date PAST SURGICAL HISTORY OF CABG times 6 left internal thoracic artery to the [id number] left anterior descending artery, reverse saphenous vein [...] on 08/07 (more content not included)... Normal [facility] Reagin and Treponema pallidu m IgG and IgM [Interp]on 08-27-2022 SYPHILIS INTERPRETATION Cannot exclude recent Treponemal infection if specimen collected within 7-10 days after appearance of suspect lesions or 2-3 weeks after an exposure. Clinical correlation is required. Normal [facility] Comment on above: Order Comment: Speci men Type: BLOOD SPECIMEN Ordering Facility: [facility] Address: [address] [place] [address] Performed By: #### 7 3752-8 #### [facility] CLIA [id number] [address] [facility] [id number] [place] [address] [place] T. pallidum IgG+IgM IA Ql (S) Non-Reactive Normal Nonreactive [facility] Comment on above: Order Comment: Speci men Type: BLOOD SPECIMEN Ordering Facility: [facility] Address: [address] [place], [place] [id number] Performed By: #### 7 3752-8 #### [facility] CLIA [id number] [address] [facility] [id number] [place], [place] [id number] [place] CREATININEon 07-11-2022 Creatinine [Mass/Vol] 2.09 mg/dL Critically high 0.70-1.30 [facility] Comment on above: Performed By: #### C ADAM #### [facility] [address] [address] [address] Aissatou Vásquez EGFR-AF JORDANIAN 37 mL/min/1.73m2 Critically low >=60 [facility] Comment on above: Performed By: #### C ADAM #### [facility] [address] [address] [address] Aissatou Vásquez EGFR-NON AF JORDANIAN 30 mL/min/1.73m2 Critically low >=60 [facility] Comment on above: Performed By: #### C ADAM #### [facility] [address] [address] [address] Aissatou Vásquez MRI BRAIN WO CONon [...] LEATHA GAVIRIA Date: 2022-07-11 15:11 Normal [facility] CULTURE BLOODon 07-10-2022 Microscopic examination [...] S P Tobramycin S P Normal [facility] Comment on above: Performed By: #### B LDCX2 ####[facility] [id number] [address]Dr. Aissatou Vásquez CBC AUTO DIFFon 07-04-2022 BASO # 0.0 103/ul Normal 0.0-0.1 [facility] Comment on above: Performed By: #### L IVER, BMP, HSTROPN #### [facility] [address] [address] [address] Aissatou Vásquez Basophils/100 WBC (Bld) 0.3 % Normal 0.2-2.0 [facility] Comment on above: Performed By: #### L IVER, BMP, HSTROPN #### [facility] [address] [address] [address] Aissatou Vásquez EO # 0.0 103/ul Normal 0.0-0.7 [facility] Comment on above: Performed By: #### L IVER, BMP, HSTROPN #### [facility] [address] [address] [address] Aissatou Vásquez Eosinophils/100 WBC (Bld) 0.6 % Critically low 0.9-7.0 [facility] Comment on above: Performed By: #### L IVER, BMP, HSTROPN #### [facility] [address] [address] [address] Aissatou Vásquez Erythrocyte distribution width (RBC) [Ratio] 13.7 % Normal 11.0-15.0 [facility] Comment on above: Performed By: #### L IVER, BMP, HSTROPN #### [facility] [address] [place] [address] Dr. Aissatou Vásquez Hematocrit (Bld) [Volume fraction] 34.2 % Critically low 42.0-54.0 [facility] Comment on above: Performed By: #### L IVER, BMP, HSTROPN #### [facility] [address] [place] [address] Dr. Aissatou Vásquez Hemoglobin (Bld) [Mass/Vol] 10.7 g/dL Critically low 14.0-18.0 [facility] Comment on above: Performed By: #### L IVER, BMP, HSTROPN #### [facility] [address] [place] [address] Dr. Aissatou Vásquez IG # 0.02 10e3/ul Normal 0.00-0.03 [facility] Comment on above: Performed By: #### L IVER, BMP, HSTROPN #### [facility] [address] [place] [address] Dr. Aissatou Vásquez IG % 0.3 % Normal 0.0-0.5 [facility] Comment on above: Performed By: #### L IVER, BMP, HSTROPN #### [facility] [address] [place] [address] Dr. Aissatou Vásquez LYMPH # 1.7 103/ul Normal 1.2-3.8 [facility] Comment on above: Performed By: #### L IVER, BMP, HSTROPN #### [facility] [address] [place] [address] Dr. Aissatou Vásquez Lymphocytes/100 WBC (Bld) 25.6 % Normal 20.5-60.0 [facility] Comment on above: Performed By: #### L IVER, BMP, HSTROPN #### [facility] [address] [place] [address] Dr. Aissatou Vásquez MANUAL DIFF REQ NO Normal [facility] Comment on above: Performed By: #### L IVER, BMP, HSTROPN #### [facility] [address] [place] [address] Dr. Aissatou Vásquez MCH (RBC) [Entitic mass] 29.6 pg Normal 25.9-34.0 [facility] Comment on above: Performed By: #### L IVER, BMP, HSTROPN #### [facility] [address] [place] [address] Dr. Aissatou Vásquez MCHC (RBC) [Mass/Vol] 31.3 g/dL Normal 29.9-35.2 [facility] Comment on above: Performed By: #### L IVER, BMP, HSTROPN #### [facility] [address] [place] [address] Dr. Aissatou Vásquez MCV (RBC) [Entitic vol] 94.5 fL Critically high 80.0-94.0 [facility] Comment on above: Performed By: #### L IVER, BMP, HSTROPN #### [facility] [address] [place] [address] Dr. Aissatou Vásquez MONO # 0.7 103/ul Normal 0.3-0.8 [facility] Comment on above: Performed By: #### L IVER, BMP, HSTROPN #### [facility] [address] [place] [address] Dr. Aissatou Vásquez Monocytes/100 WBC (Bld) 11.2 % Normal 1.7-12.0 [facility] Comment on above: Performed By: #### L IVER, BMP, HSTROPN #### [facility] [address] [place] [address] Dr. Aissatou Vásquez NEUT # 4.0 103/ul Normal 1.4-6.5 [facility] Comment on above: Performed By: #### L IVER, BMP, HSTROPN #### [facility] [address] [place] [address] Dr. Aissatou Vásquez Neutrophils/100 WBC (Bld) 62.0 % Normal 43.0-75.0 [facility] Comment on above: Performed By: #### L IVER, BMP, HSTROPN #### [facility] [address] [place] [address] Dr. Aissatou Vásquez Platelet mean volume (Bld) [Entitic vol] 10.4 fL Normal 9.5-13.5 [facility] Comment on above: Performed By: #### L IVER, BMP, HSTROPN #### [facility] [address] [place] [address] Dr. Aissatou Vásquez PLT 134 103/ul Critically low 150-450 [facility] Comment on above: Performed By: #### L IVER, BMP, HSTROPN #### [facility] [address] [place] [address] Dr. Aissatou Vásquez RBC 3.62 106/ul Critically low 4.70-6.10 [facility] Comment on above: Performed By: #### L IVER, BMP, HSTROPN #### [facility] [address] [place] [address] Dr. Aissatou Vásquez WBC 6.5 103/ul Normal 4.0-11.0 [facility] Comment on above: Performed By: #### L IVFRANTZ, BMP, HSTROPN #### [facility] [address] [place] [address] Dr. Aissatou Vásquez CPKon 07-04-2022 CK [Catalytic activity/Vol] 149 U/L Normal 39-308 [facility] Comment on above: Performed By: #### L IVER, BMP, HSTROPN #### [facility] [address] [place] [address] Dr. Aissatou Vásquez MAGNESIUMon 07-04-2022 Magnesium [Mass/Vol] 1.7 mg/dL Critically low 1.8-2.4 [facility] Comment on above: Performed By: #### L IVER, BMP, HSTROPN #### [facility] [address] [place] [address] Dr. Aissatou Vásquez PHOSPHORUSon 07-04-2022 Phosphate [Mass/Vol] 3.6 mg/dL Normal 2.6-4.7 [facility] Comment on above: Performed By: #### L IVER, BMP, HSTROPN #### [facility] [address] [address] [address] Aissatou Vásquez PROF 14(COMP METB)on 022 Albumin [Mass/Vol] 2.8 g/dL Critically low 3.4-5.0 [facility] Comment on above: Performed By: #### L IVER, BMP, HSTROPN #### [facility] [address] [place] [address] Dr. Aissatou Vásquez Albumin/Globulin [Mass ratio] 0.9 {ratio} Normal [facility] Comment on above: Performed By: #### L IVER, BMP, HSTROPN #### [facility] [address] [place] [address] Dr. Aissatou Vásquez ALP [Catalytic activity/Vol] 86 U/L Normal 46-116 [facility] Comment on above: Performed By: #### L IVER, BMP, HSTROPN #### [facility] [address] [place] [address] Dr. Aissatou Vásquez ALT [Catalytic activity/Vol] 50 U/L Normal 16-63 [facility] Comment on above: Performed By: #### L IVER, BMP, HSTROPN #### [facility] [address] [place] [address] Dr. Aissatou Vásquez Anion gap [Moles/Vol] 11.6 mmol/L Normal [facility] Comment on above: Performed By: #### L IVER, BMP, HSTROPN #### [facility] [address] [place] [address] Dr. Aissatou Vásquez AST [Catalytic activity/Vol] 41 U/L Critically high 15-37 [facility] Comment on above: Performed By: #### L IVER, BMP, HSTROPN #### [facility] [address] [place] [address] Dr. Aissatou Vásquez Bilirubin [Mass/Vol] 0.4 mg/dL Normal 0.2-1.0 [facility] Comment on above: Performed By: #### L IVER, BMP, HSTROPN #### [facility] [address] [address] [address] Aissatou Vásquez Calcium [Mass/Vol] 8.7 mg/dL Normal 8.5-10.1 [facility] Comment on above: Performed By: #### L IVER, BMP, HSTROPN #### [facility] [address] [place] [address] Dr. Aissatou Vásquez Chloride [Moles/Vol] 106 mmol/L Normal 98-107 [facility] Comment on above: Performed By: #### L IVER, BMP, HSTROPN #### [facility] [address] [place] [address] Dr. Aissatou Vásquez CO2 [Moles/Vol] 27.0 mmol/L Normal 21.0-32.0 [facility] Comment on above: Performed By: #### L IVER, BMP, HSTROPN #### [facility] [address] [place] [address] Dr. Aissatou Vásquez Creatinine [Mass/Vol] 1.99 mg/dL Critically high 0.70-1.30 [facility] Comment on above: Performed By: #### L IVER, BMP, HSTROPN #### [facility] [address] [place] [address] Dr. Aissatou Vásquez EGFR-AF JORDANIAN 39 mL/min/1.73m2 Critically low >=60 [facility] Comment on above: Performed By: #### L IVER, BMP, HSTROPN #### [facility] [address] [place] [address] Dr. Aissatou Vásquez EGFR-NON AF JORDANIAN 32 mL/min/1.73m2 Critically low >=60 [facility] Comment on above: Performed By: #### L IVER, BMP, HSTROPN #### [facility] [address] [place] [address] Dr. Aissatou Vásquez Globulin (S) [Mass/Vol] 3.1 g/dL Normal [facility] Comment on above: Performed By: #### L IVER, BMP, HSTROPN #### [facility] [address] [address] [address] Aissatou Vásquez Glucose [Mass/Vol] 93 mg/dL Normal 74-106 [facility] Comment on above: Performed By: #### L IVER, BMP, HSTROPN #### [facility] [address] [place] [address] Dr. Aissatou Vásquez Potassium [Moles/Vol] 4.6 mmol/L Normal 3.5-5.1 [facility] Comment on above: Performed By: #### L IVER, BMP, HSTROPN #### [facility] [address] [place] [address] Dr. Aissatou Vásquez Protein [Mass/Vol] 5.9 g/dL Critically low 6.4-8.2 [facility] Comment on above: Performed By: #### L IVER, BMP, HSTROPN #### [facility] [address] [place] [address] Dr. Aissatou Vásquez Sodium [Moles/Vol] 140 mmol/L Normal 136-145 [facility] Comment on above: Performed By: #### L IVER, BMP, HSTROPN #### [facility] [address] [place] [address] Dr. Aissatou Vásquez Urea nitrogen [Mass/Vol] 50.0 mg/dL Critically high 7.0-18.0 [facility] Comment on above: Performed By: #### L IVER, BMP, HSTROPN #### [facility] [address] [place] [address] Dr. Aissatou Vásquez Urea nitrogen/Creatinine [Mass ratio] 25.1 mg/mg Normal [facility] Comment on above: Performed By: #### L IVER, BMP, HSTROPN #### [facility] [address] [place] [address] Dr. Aissatou Vásquez PROTIMEon 07-04-2022 INR Coag (PPP) [Relative time] 1.05 {INR} Normal [facility] Comment on above: Performed By: #### C ADAM #### [facility] [address] [place] [address] Dr. Aissatou Vásquez INR GUIDELINES SEE BELOW Normal [facility] Comment on above: Result Comment: ELISABETH RED INR: 2.0 - 3.0 CONDITIONS NOT LISTED BELOW 2.5 - 3.5 FOR PROSTHETIC HEART VALVE REPLACEMENT 2.5 - 3.5 RECURRENT THROMBOSIS Performed By: #### C ADAM #### [facility] [address] [place] [address] Dr. Aissatou Vásquez PT Coag (PPP) [Time] 11.3 s Normal 9.0-11.6 [facility] Comment on above: Performed By: #### C ADAM #### [facility] [address] [place] [address] Dr. Aissatou Vásquez CBC AUTO DIFFon 07-03-2022 BASO # 0.0 103/ul Normal 0.0-0.1 [facility] Comment on above: Performed By: #### L IVER, BMP, HSTROPN #### [facility] [address] [place] [address] Dr. Aissatou Vásquez Basophils/100 WBC (Bld) 0.3 % Normal 0.2-2.0 [facility] Comment on above: Performed By: #### L IVER, BMP, HSTROPN #### [facility] [address] [place] [address] Dr. Aissatou Vásquez EO # 0.0 103/ul Normal 0.0-0.7 [facility] Comment on above: Performed By: #### L IVER, BMP, HSTROPN #### [facility] [address] [place] [address] Dr. Aissatou Vásquez Eosinophils/100 WBC (Bld) 0.3 % Critically low 0.9-7.0 [facility] Comment on above: Performed By: #### L IVER, BMP, HSTROPN #### [facility] [address] [place] [address] Dr. Aissatou Vásquez Erythrocyte distribution width (RBC) [Ratio] 13.8 % Normal 11.0-15.0 [facility] Comment on above: Performed By: #### L IVER, BMP, HSTROPN #### [facility] [address] [place] [address] Dr. Aissatou Vásquez Hematocrit (Bld) [Volume fraction] 31.7 % Critically low 42.0-54.0 [facility] Comment on above: Performed By: #### L IVER, BMP, HSTROPN #### [facility] [address] [place] [address] Dr. Aissatou Vásquez Hemoglobin (Bld) [Mass/Vol] 10.2 g/dL Critically low 14.0-18.0 [facility] Comment on above: Performed By: #### L IVER, BMP, HSTROPN #### [facility] [address] [place] [address] Dr. Aissatou Vásquez IG # 0.02 10e3/ul Normal 0.00-0.03 [facility] Comment on above: Performed By: #### L IVER, BMP, HSTROPN #### [facility] [address] [place] [address] Dr. Aissatou Vásquez IG % 0.3 % Normal 0.0-0.5 [facility] Comment on above: Performed By: #### L IVER, BMP, HSTROPN #### [facility] [address] [place] [address] Dr. Aissatou Vásquez LYMPH # 1.5 103/ul Normal 1.2-3.8 [facility] Comment on above: Performed By: #### L IVER, BMP, HSTROPN #### [facility] [address] [place] [address] Dr. Aissatou Vásquez Lymphocytes/100 WBC (Bld) 20.3 % Critically low 20.5-60.0 [facility] Comment on above: Performed By: #### L IVER, BMP, HSTROPN #### [facility] [address] [place] [address] Dr. Aissatou Vásquez MANUAL DIFF REQ NO Normal [facility] Comment on above: Performed By: #### L IVER, BMP, HSTROPN #### [facility] [address] [place] [address] Dr. Aissatou Vásquez MCH (RBC) [Entitic mass] 30.3 pg Normal 25.9-34.0 [facility] Comment on above: Performed By: #### L IVER, BMP, HSTROPN #### [facility] [address] [place] [address] Dr. Aissatou Vásquez MCHC (RBC) [Mass/Vol] 32.2 g/dL Normal 29.9-35.2 [facility] Comment on above: Performed By: #### L IVER, BMP, HSTROPN #### [facility] [address] [place] [address] Dr. Aissatou Vásquez MCV (RBC) [Entitic vol] 94.1 fL Critically high 80.0-94.0 [facility] Comment on above: Performed By: #### L IVER, BMP, HSTROPN #### [facility] [address] [place] [address] Dr. Aissatou Vásquez MONO # 0.7 103/ul Normal 0.3-0.8 [facility] Comment on above: Performed By: #### L IVER, BMP, HSTROPN #### [facility] [address] [place] [address] Dr. Aissatou Vásquez Monocytes/100 WBC (Bld) 9.9 % Normal 1.7-12.0 [facility] Comment on above: Performed By: #### L IVER, BMP, HSTROPN #### [facility] [address] [place] [address] Dr. Aissatou Vásquez NEUT # 4.9 103/ul Normal 1.4-6.5 [facility] Comment on above: Performed By: #### L IVER, BMP, HSTROPN #### [facility] [address] [place] [address] Dr. Aissatou Vásquez Neutrophils/100 WBC (Bld) 68.9 % Normal 43.0-75.0 [facility] Comment on above: Performed By: #### L IVER, BMP, HSTROPN #### [facility] [address] [place] [address] Dr. Aissatou Vásquez Platelet mean volume (Bld) [Entitic vol] 10.7 fL Normal 9.5-13.5 [facility] Comment on above: Performed By: #### L IVDHARA LANDRY, HSTROPN #### [facility] [address] [address] [address] Aissatou Vásquez PLT 141 103/ul Critically low 150-450 [facility] Comment on above: Performed By: #### L IVDHARA LANDRY, HSTROPN #### [facility] [address] [address] [address] Aissatou Vásquez RBC 3.37 106/ul Critically low 4.70-6.10 [facility] Comment on above: Performed By: #### L IVDHARA LANDRY, HSTROPN #### [facility] [address] [place] [address] Dr. Aissatou Vásquez WBC 7.1 103/ul Normal 4.0-11.0 [facility] Comment on above: Performed By: #### L DHARA WAITE, HSTROPN #### [facility] [address] [address] [address] Aissatou Vásquez CPKon 07-03-2022 CK [Catalytic activity/Vol] 331 U/L Critically high 39-308 [facility] Comment on above: Performed By: #### L DHARA WAITE, HSTROPN #### [facility] [address] [place] [address] Dr[address] Vásquez [address] ABD/PELVIS WO CONon [...] STEPHEN ROUSE Date: 2022-07-03 11:06 Normal [facility] CULTURE BLOODon 07-03-2022 Microscopic examination of blood, culture Culture Observations: NO GROWTH AT 5 DAYS. Normal [facility] Comment on above: Performed By: ###Landon Grewal LDCX2 ####[facility] [id number] [address]Dr. Aissatou Vásquez Microscopic examination of blood, culture Culture Observations: NO GROWTH AT 5 DAYS. Normal [facility] Comment on above: Performed By: #### Uri LDCX1 ####[facility] [id number] [address]Dr. Aissatou Vásquez MAGNESIUMon 07-03-2022 Magnesium [Mass/Vol] 1.8 mg/dL Normal 1.8-2.4 [facility] Comment on above: Performed By: #### L DHARA WAITE, HSTROPN #### [facility] [address] [address] [address] Aissatou Vásquez PHOSPHORUSon 07-03-2022 Phosphate [Mass/Vol] 4.0 mg/dL Normal 2.6-4.7 [facility] Comment on above: Performed By: #### DHARA KONG, HSTROPN #### [facility] [address] [address] [address] Aissatou Vásquez POINT OF CARE GLUCOSEon 06-06 Glucose [Mass/Vol] 77 mg/dL Normal 74-106 [facility] Comment on above: Performed By: #### C ADAM #### [facility] [address] [address] [address] Aissatou Vásquez PROF 14(COMP METB)on 022 Albumin [Mass/Vol] 2.6 g/dL Critically low 3.4-5.0 [facility] Comment on above: Performed By: #### L IVDHARA LANDRY, HSTROPN #### [facility] [address] [place] [address] Dr. Aissatou Vásquez Albumin/Globulin [Mass ratio] 0.9 {ratio} Normal [facility] Comment on above: Performed By: #### L IVDHARA LANDRY, HSTROPN #### [facility] [address] [place] [address] Dr. Aissatou Vásquez ALP [Catalytic activity/Vol] 81 U/L Normal 46-116 [facility] Comment on above: Performed By: #### L DHARA WAITE, HSTROPN #### [facility] [address] [place] [address] Dr. Aissatou Vásquez ALT [Catalytic activity/Vol] 46 U/L Normal 16-63 [facility] Comment on above: Performed By: #### L DHARA WAITE, HSTROPN #### [facility] [address] [place] [address] Dr. Aissatou Vásquez Anion gap [Moles/Vol] 11.9 mmol/L Normal [facility] Comment on above: Performed By: #### L IVFRANTZ BMP, HSTROPN #### [facility] [address] [place] [address] Dr. Aissatou Vásquez AST [Catalytic activity/Vol] 45 U/L Critically high 15-37 [facility] Comment on above: Performed By: #### L IVDHARA LANDRY, HSTROPN #### [facility] [address] [place] [address] Dr. Aissatou Vásquez Bilirubin [Mass/Vol] 0.2 mg/dL Normal 0.2-1.0 [facility] Comment on above: Performed By: #### L MARIANN BMP, HSTROPN #### [facility] [address] [place] [address] Dr. Aissatou Vásquez Calcium [Mass/Vol] 8.5 mg/dL Normal 8.5-10.1 [facility] Comment on above: Performed By: #### L IVER, BMP, HSTROPN #### [facility] [address] [place] [address] Dr. Aissatou Vásquez Chloride [Moles/Vol] 108 mmol/L Critically high 98-107 [facility] Comment on above: Performed By: #### L IVER, BMP, HSTROPN #### [facility] [address] [place] [address] Dr. Aissatou Vásuqez CO2 [Moles/Vol] 25.9 mmol/L Normal 21.0-32.0 [facility] Comment on above: Performed By: #### L IVER, BMP, HSTROPN #### [facility] [address] [place] [address] Dr. Aissatou Vásquez Creatinine [Mass/Vol] 2.34 mg/dL Critically high 0.70-1.30 [facility] Comment on above: Performed By: #### L IVER, BMP, HSTROPN #### [facility] [address] [place] [address] Dr. Aissatou Vásquez EGFR-AF JORDANIAN 32 mL/min/1.73m2 Critically low >=60 [facility] Comment on above: Performed By: #### L IVER, BMP, HSTROPN #### [facility] [address] [place] [address] Dr. Aissatou Vásquez EGFR-NON AF JORDANIAN 27 mL/min/1.73m2 Critically low >=60 [facility] Comment on above: Performed By: #### L IVER, BMP, HSTROPN #### [facility] [address] [place] [address] Dr. Aissatou Vásquez Globulin (S) [Mass/Vol] 3.0 g/dL Normal [facility] Comment on above: Performed By: #### L IVER, BMP, HSTROPN #### [facility] [address] [address] [address] Aissatou Vásquez Glucose [Mass/Vol] 93 mg/dL Normal 74-106 [facility] Comment on above: Performed By: #### L IVER, BMP, HSTROPN #### [facility] [address] [address] [address] Aissatou Vásquez Potassium [Moles/Vol] 4.8 mmol/L Normal 3.5-5.1 [facility] Comment on above: Performed By: #### L IVER, BMP, HSTROPN #### [facility] [address] [place] [address] Dr. Aissatou Vásquez Protein [Mass/Vol] 5.6 g/dL Critically low 6.4-8.2 Th [facility] Comment on above: Performed By: #### L IVER, BMP, HSTROPN #### [facility] [address] [place] [address] Dr. Aissatou Vásquez Sodium [Moles/Vol] 141 mmol/L Normal 136-145 [facility] Comment on above: Performed By: #### L IVER, BMP, HSTROPN #### [facility] [address] [place] [address] Dr. Aissatou Vásquez Urea nitrogen [Mass/Vol] 61.0 mg/dL Critically high 7.0-18.0 [facility] Comment on above: Performed By: #### L IVER, BMP, HSTROPN #### [facility] [address] [place] [address] Dr. Aissatou Vásquez Urea nitrogen/Creatinine [Mass ratio] 26.1 mg/mg Normal [facility] Comment on above: Performed By: #### L IVER, BMP, HSTROPN #### [facility] [address] [place] [address] Dr. Aissatou Vásquez PROTIMEon 07-03-2022 INR Coag (PPP) [Relative time] 1.12 {INR} Normal [facility] Comment on above: Performed By: #### C ADAM #### [facility] [address] [address] [address] Aissatou Vásquez INR GUIDELINES SEE BELOW Normal [facility] Comment on above: Result Comment: ELISABETH RED INR: 2.0 - 3.0 CONDITIONS NOT LISTED BELOW 2.5 - 3.5 FOR PROSTHETIC HEART VALVE REPLACEMENT 2.5 - 3.5 RECURRENT THROMBOSIS Performed By: #### C ADAM #### [facility] [address] [address] [address] Aissatou Vásquez PT Coag (PPP) [Time] 12.0 s Critically high 9.0-11.6 [facility] Comment on above: Performed By: #### C ADAM #### [facility] [address] [address] [address] Aissatou Vásquez CBC AUTO DIFFon 07-02-2022 BASO # 0.0 103/ul Normal 0.0-0.1 [facility] Comment on above: Performed By: #### C BC ####[facility] [address] [address]Dr. Aissatou Vásquez Basophils/100 WBC (Bld) 0.1 % Critically low 0.2-2.0 [facility] Comment on above: Performed By: #### C BC ####[facility] [address] [place], [place] [address]Dr. Aissatou Vásquez EO # 0.0 103/ul Normal 0.0-0.7 [facility] Comment on above: Performed By: #### C BC ####[facility] [address] [address]Dr. Aissatou Vásquez Eosinophils/100 WBC (Bld) 0.0 % Critically low 0.9-7.0 [facility] Comment on above: Performed By: #### C BC ####[facility] [address] [place], [place] [address]Dr. Aissatou Vásquez Erythrocyte distribution width (RBC) [Ratio] 13.4 % Normal 11.0-15.0 [facility] Comment on above: Performed By: #### C BC ####[facility] [address] [place], [place] [address]Dr. Aissatou Vásquez Hematocrit (Bld) [Volume fraction] 39.9 % Critically low 42.0-54.0 [facility] Comment on above: Performed By: #### C BC ####[facility] [address] [address]DrBud Vásquez Hemoglobin (Bld) [Mass/Vol] 12.8 g/dL Critically low 14.0-18.0 [facility] Comment on above: Performed By: #### C BC ####[facility] [address] [place], [place] [address]DrBud Vásquez IG # 0.05 10e3/ul Critically high 0.00-0.03 [facility] Comment on above: Performed By: #### C BC ####[facility] [address] [place], [place] [address]DrBud Vásquez IG % 0.4 % Normal 0.0-0.5 [facility] Comment on above: Performed By: #### C BC ####[facility] [address] [place], [place] [address]DrBud Vásquez LYMPH # 0.8 103/ul Critically low 1.2-3.8 [facility] Comment on above: Performed By: #### C BC ####[facility] [address] [place], [place] [address]DrBud Vásquez Lymphocytes/100 WBC (Bld) 7.2 % Critically low 20.5-60.0 [facility] Comment on above: Performed By: #### C BC ####[facility] [address] [place], [place] [address]DrBud Vásquez MANUAL DIFF REQ NO Normal [facility] Comment on above: Performed By: #### C BC ####[facility] [address] [place], [place] [address]DrBud Vásquez MCH (RBC) [Entitic mass] 30.0 pg Normal 25.9-34.0 [facility] Comment on above: Performed By: #### C BC ####[facility] [address] [place], [place] [address]DrBud Vásquez MCHC (RBC) [Mass/Vol] 32.1 g/dL Normal 29.9-35.2 [facility] Comment on above: Performed By: #### C BC ####[facility] [address] [address]DrBud Vásquez MCV (RBC) [Entitic vol] 93.7 fL Normal 80.0-94.0 [facility] Comment on above: Performed By: #### C BC ####[facility] [address] [place], [place] [address]DrBud Vásquez MONO # 0.8 103/ul Normal 0.3-0.8 [facility] Comment on above: Performed By: #### C BC ####[facility] [address] [place], [place] [address]DrBud Vásquez Monocytes/100 WBC (Bld) 6.8 % Normal 1.7-12.0 [facility] Comment on above: Performed By: #### C BC ####[facility] [address] [place], [place] [address]Dr. Aissatou Vásquez NEUT # 9.8 103/ul Critically high 1.4-6.5 [facility] Comment on above: Performed By: #### C BC ####[facility] [address] [place], [place] [address]DrBud Vásquez Neutrophils/100 WBC (Bld) 85.5 % Critically high 43.0-75.0 [facility] Comment on above: Performed By: #### C BC ####[facility] [address] [place], [place] [address]DrBud Vásquez Platelet mean volume (Bld) [Entitic vol] 10.8 fL Normal 9.5-13.5 [facility] Comment on above: Performed By: #### C BC ####[facility] [address] [place], [place] [address]DrBud Vásquez PLT 170 103/ul Normal 150-450 [facility] Comment on above: Performed By: #### C BC ####[facility] [address] [place], [place] [address]DrBud Vásquez RBC 4.26 106/ul Critically low 4.70-6.10 [facility] Comment on above: Performed By: #### C BC ####[facility] [address] [place], [place] [address]AoBud Katsarah Fahad WBC 11.4 103/ul Critically high 4.0-11.0 [facility] Comment on above: Performed By: #### C BC ####[facility] [address] [place], [place] [address]RiBud Vásquez CKMBon 07-02-2022 CK.MB [Mass/Vol] 80.91 ng/mL Critically high <=3.60 [facility] Comment on above: Performed By: #### L DHARA WAITE, HSTROPN #### [facility] [address] [address] [address] Aissatou Vásquez CPKon 07-02-2022 CK [Catalytic activity/Vol] 915 U/L Critically high 39-308 [facility] Comment on above: Performed By: #### L IVFRANTZ BMP, HSTROPN #### [facility] [address] [address] [address] Aissatou Vásquez ECHOCARDIO M/2D COMPLETEon 1 09-02-2021 ECHOCARDIO M/2D COMPLETE Patient: LEANNA NELSON Exam Date: 07/02/2022 : 1940 Gender:M Ordering : SHAIKH Delphine RODRIGUEZ . Admission #: [id number] Family : DR PIPE HOPKINS . Order #: [id number] CLICK HERE TO VIEW EXAM ECHOCARDIOGRAM REPORT [...] Cameron M.D. on 07/08/2022 at 09:55 Normal [facility] MAGNESIUMon 07-02-2022 Magnesium [Mass/Vol] 1.9 mg/dL Normal 1.8-2.4 [facility] Comment on above: Performed By: #### L DHARA WAITE, HSTROPN #### [facility] [address] [place] [address] Dr. Aissatou Vásquez MYOGLOBINon 07-02-2022 SARAH 1312 ng/mL Critically high 16-96 [facility] Comment on above: Performed By: #### Adriana WAITE BMP, HSTROPN #### [facility] [address] [address] [address] Aissatou Vásquez PHOSPHORUSon 07-02-2022 Phosphate [Mass/Vol] 6.0 mg/dL Critically high 2.6-4.7 [facility] Comment on above: Performed By: #### L DHARA WAITE, HSTROPN #### [facility] [address] [place] [address] Dr. Aissatou Vásquez POINT OF CARE GLUCOSEon 06-06 Glucose [Mass/Vol] 78 mg/dL Normal 74-106 [facility] Comment on above: Performed By: #### C ADAM #### [facility] [address] [address] [address] Aissatou Vásquez Glucose [Mass/Vol] 104 mg/dL Normal 74-106 [facility] Comment on above: Performed By: #### P OCGLUC ####[facility] [address] [id number]. Aissatou Vásquez Glucose [Mass/Vol] 83 mg/dL Normal 74-106 [facility] Comment on above: Performed By: #### L IVER, BMP, HSTROPN #### [facility] [address] [address] [address] Aissatou Vásquez Glucose [Mass/Vol] 100 mg/dL Normal 74-106 [facility] Comment on above: Performed By: #### C ADAM #### [facility] [address] [address] [address] Aissatou Vásquez Glucose [Mass/Vol] 73 mg/dL Critically low 74-106 [facility] Comment on above: Performed By: #### P OCGLUC ####[facility] [address] [address]Dr. Aissatou Vásquez PROF 14(COMP METB)on 022 Albumin [Mass/Vol] 3.3 g/dL Critically low 3.4-5.0 [facility] Comment on above: Performed By: #### L IVER, BMP, HSTROPN #### [facility] [address] [address] [address] Aissatou Vásquez Albumin/Globulin [Mass ratio] 1.0 {ratio} Normal [facility] Comment on above: Performed By: #### L IVER, BMP, HSTROPN #### [facility] [address] [address] [address] Aissatou Vásquez ALP [Catalytic activity/Vol] 114 U/L Normal 46-116 [facility] Comment on above: Performed By: #### L IVER, BMP, HSTROPN #### [facility] [address] [address] [address] Aissatou Vásquez ALT [Catalytic activity/Vol] 48 U/L Normal 16-63 [facility] Comment on above: Performed By: #### L IVER, BMP, HSTROPN #### [facility] [address] [address] [address] Aissatou Vásquez Anion gap [Moles/Vol] 17.3 mmol/L Normal [facility] Comment on above: Performed By: #### L IVER, BMP, HSTROPN #### [facility] [address] [place] [address] Dr. Aissatou Vásquez AST [Catalytic activity/Vol] 68 U/L Critically high 15-37 [facility] Comment on above: Performed By: #### L IVER, BMP, HSTROPN #### [facility] [address] [address] [address] Aissatou Vásquez Bilirubin [Mass/Vol] 0.5 mg/dL Normal 0.2-1.0 [facility] Comment on above: Performed By: #### L IVER, BMP, HSTROPN #### [facility] [address] [place] [address] Dr. Aissatou Vásquez Calcium [Mass/Vol] 8.9 mg/dL Normal 8.5-10.1 [facility] Comment on above: Performed By: #### L IVER, BMP, HSTROPN #### [facility] [address] [place] [address] Dr. Aissatou Vásquez Chloride [Moles/Vol] 109 mmol/L Critically high 98-107 [facility] Comment on above: Performed By: #### L IVER, BMP, HSTROPN #### [facility] [address] [place] [address] Dr. Aissatou Vásquez CO2 [Moles/Vol] 22.8 mmol/L Normal 21.0-32.0 [facility] Comment on above: Performed By: #### L IVER, BMP, HSTROPN #### [facility] [address] [place] [address] Dr. Aissatou Vásquez Creatinine [Mass/Vol] 1.89 mg/dL Critically high 0.70-1.30 [facility] Comment on above: Performed By: #### L IVER, BMP, HSTROPN #### [facility] [address] [address] [address] Aissatou Vásquez EGFR-AF JORDANIAN 41 mL/min/1.73m2 Critically low >=60 [facility] Comment on above: Result Comment: Prev iously reported as: (blank) On 07/02/2022 05:50 By KD3 Performed By: #### L IVER, BMP, HSTROPN #### [facility] [address] [place] [address] Dr. Aissatou Vásquez EGFR-NON AF JORDANIAN 34 mL/min/1.73m2 Critically low >=60 [facility] Comment on above: Result Comment: Prev iously reported as: (blank) On 07/02/2022 05:50 By KD3 Performed By: #### L IVER, BMP, HSTROPN #### [facility] [address] [place] [address] Dr. Aissatou Vásquez Globulin (S) [Mass/Vol] 3.4 g/dL Normal [facility] Comment on above: Performed By: #### L IVER, BMP, HSTROPN #### [facility] [address] [place] [address] Dr. Aissatou Vásquez Glucose [Mass/Vol] 86 mg/dL Normal 74-106 [facility] Comment on above: Performed By: #### L IVER, BMP, HSTROPN #### [facility] [address] [place] [address] Dr. Aissatou Vásquez Potassium [Moles/Vol] 5.1 mmol/L Normal 3.5-5.1 [facility] Comment on above: Performed By: #### L IVER, BMP, HSTROPN #### [facility] [address] [address] [address] Aissatou Vásquez Protein [Mass/Vol] 6.7 g/dL Normal 6.4-8.2 [facility] Comment on above: Performed By: #### L IVER, BMP, HSTROPN #### [facility] [address] [place] [address] Dr. Aissatou Vásquez Sodium [Moles/Vol] 144 mmol/L Normal 136-145 [facility] Comment on above: Performed By: #### L IVDHARA LANDRY, HSTROPN #### [facility] [address] [place] [address] Dr. Aissatou Vásquez Urea nitrogen [Mass/Vol] 55.0 mg/dL Critically high 7.0-18.0 [facility] Comment on above: Performed By: #### L IVFRANTZ BMP, HSTROPN #### [facility] [address] [place] [address] Dr. Aissatou Vásquez Urea nitrogen/Creatinine [Mass ratio] 29.1 mg/mg Normal [facility] Comment on above: Performed By: #### L IVDHARA LANDRY, HSTROPN #### [facility] [address] [place] [address] Dr. Aissatou Vásquez PROTIMEon 07-02-2022 INR Coag (PPP) [Relative time] 1.13 {INR} Normal [facility] Comment on above: Performed By: #### L IVDHARA LANDRY, HSTROPN #### [facility] [address] [place] [address] Dr. Aissatou Vásquez INR GUIDELINES SEE BELOW Normal [facility] Comment on above: Result Comment: ELISABETH RED INR: 2.0 - 3.0 CONDITIONS NOT LISTED BELOW 2.5 - 3.5 FOR PROSTHETIC HEART VALVE REPLACEMENT 2.5 - 3.5 RECURRENT THROMBOSIS Performed By: #### L IVDHARA LANDRY, HSTROPN #### [facility] [address] [place] [address] Dr. Aissatou Vásquez PT Coag (PPP) [Time] 12.1 s Critically high 9.0-11.6 [facility] Comment on above: Performed By: #### L IVDHARA LANDRY, HSTROPN #### [facility] [address] [place] [address] Dr. Aissatou Vásquez BLOOD CULTURE ID PANELon A. baumannii Not detected Normal NOT DETECTED [facility] Comment on above: Performed By: #### C ADAM #### [facility] [address] [place] [address] Dr. Aissatou Vásquez Bacteriodes fragilis Not detected Normal NOT DETECTED [facility] Comment on above: Performed By: #### C ADAM #### [facility] [address] [place] [address] Dr. Aissatou PEREZD CONTROLS PASSED Normal [facility] Comment on above: Performed By: #### C ADAM #### [facility] [address] [place] [address] Dr. Aissatou PEREZDBTHD BLOOD CULTURE BOTTLE INFORMATION [facility] Comment on above: Performed By: #### C ADAM #### [facility] [address] [place] [address] Dr. Aissatou Vásquez BCIDHD1 ANTIMICROBIAL RESISTANCE GENES [facility] Comment on above: Performed By: #### C ADAM #### [facility] [address] [place] [address] Dr. Aissatou PEREZDHD2 SEE BELOW [facility] Comment on above: Result Comment: Note : Antimicrobial resitance can occur via multiple mechanisms. A Not Detected result for the [employer] antomicrobial resistance gene assays does not indicate antimicrobial susceptibility. Subculturing is required for species identification and susceptibility testing of isolates. Performed By: #### C ADAM #### [facility] [address] [place] [address] Dr. Aissatou Vásquez BCIDHD3 Positive [facility] Comment on above: Performed By: #### C ADAM #### [facility] [address] [place] [address] Dr. Aissatou Vásquez BCIDHD4 Negative [facility] Comment on above: Performed By: #### C ADAM #### [facility] [address] [place] [address] Dr. Aissatou PEREZDHD5 YEAST [facility] Comment on above: Performed By: #### C ADAM #### [facility] [address] [place] [address] Dr. Aissatou Vásquez Bottle Set: Set [address] [facility] Comment on above: Performed By: #### C ADAM #### [facility] [address] [place] [address] Dr. Aissatou Vásquez Bottle: Pediatric Normal [facility] Comment on above: Performed By: #### C ADAM #### [facility] [address] [place] [address] Dr. Aissatou Vásquez C. neoformans/gattii Not detected Normal NOT DETECTED [facility] Comment on above: Performed By: #### C ADAM #### [facility] [address] [place] [address] Dr. Aissatou Vásquez Soraya albicans Not detected Normal NOT DETECTED [facility] Comment on above: Performed By: #### C ADAM #### [facility] [address] [place] [address] Dr. Aissatou Vásquez Soraya auris Not detected Normal NOT DETECTED [facility] Comment on above: Performed By: #### C ADAM #### [facility] [address] [place] [address] Dr. Aissatou Vásquez Soraya glabrata Not detected Normal NOT DETECTED [facility] Comment on above: Performed By: #### C ADAM #### [facility] [address] [place] [address] Dr. Aissatou Vásquez Soraya Krusei Not detected Normal NOT DETECTED [facility] Comment on above: Performed By: #### C ADAM #### [facility] [address] [place] [address] Dr. Aissatou Vásquez Soraya Parapsilosis Not detected Normal NOT DETECTED [facility] Comment on above: Performed By: #### C ADAM #### [facility] [address] [place] [address] Dr. Aissatou Vásquez Soraya Tropicalis Not detected Normal NOT DETECTED [facility] Comment on above: Performed By: #### C ADAM #### [facility] [address] [place] [address] Dr. Aissatou Vásquez CTX-M Resistant Gene Not detected Normal NOT DETECTED [facility] Comment on above: Performed By: #### C ADAM #### [facility] [address] [place] [address] Dr. Aissatou Vásquez E. Cloacae complex Not detected Normal NOT DETECTED [facility] Comment on above: Performed By: #### C ADAM #### [facility] [address] [place] [address] Dr. Aissatou Vásquez E. faecalis Not detected Normal NOT DETECTED [facility] Comment on above: Performed By: #### C ADAM #### [facility] [address] [place] [address] Dr. Aissatou Vásquez E. faecium Not detected Normal NOT DETECTED [facility] Comment on above: Performed By: #### C ADAM #### [facility] [address] [place] [address] Dr. Aissatou Vásquez Enterobacteriaceae Detected Critically abnormal NOT DETECTED [facility] Comment on above: Performed By: #### C ADAM #### [facility] [address] [place] [address] Dr. Aissatou Vásquez Escherichia coli Not detected Normal NOT DETECTED [facility] Comment on above: Performed By: #### C ADAM #### [facility] [address] [place] [address] Dr. Aissatou Vásquez H. influenzae Not detected Normal NOT DETECTED [facility] Comment on above: Performed By: #### C ADAM #### [facility] [address] [place] [address] Dr. Aissatou Vásquez IMP Resistant Gene Not detected Normal NOT DETECTED [facility] Comment on above: Performed By: #### C ADAM #### [facility] [address] [place] [address] Dr. Aissatou Vásquez K. oxytoca Not detected Normal NOT DETECTED [facility] Comment on above: Performed By: #### C ADAM #### [facility] [address] [place] [address] Dr. Aissatou Vásquez K. pneumoniae Not detected Normal NOT DETECTED [facility] Comment on above: Performed By: #### C ADAM #### [facility] [address] [place] [address] Dr. Aissatou Vásquez Klebsiella aerogenes Not detected Normal NOT DETECTED [facility] Comment on above: Performed By: #### C ADAM #### [facility] [address] [place] [address] Dr. Aissatou Vásquez KPC Resistant Gene Not detected Normal NOT DETECTED [facility] Comment on above: Performed By: #### C ADAM #### [facility] [address] [place] [address] Dr. Aissatou Vásquez List. monocytogenes Not detected Normal NOT DETECTED [facility] Comment on above: Performed By: #### C ADAM #### [facility] [address] [place] [address] Dr. Aissatou Vásquez Mcr-1 Resistant Gene Not Applicable Normal NOT DETECTE D [facility] Comment on above: Performed By: #### C ADAM #### [facility] [address] [place] [address] Dr. Aissatou Vásquez mecA/C Not Applicable Normal NOT DETECTED [facility] Comment on above: Performed By: #### C ADAM #### [facility] [address] [place] [address] Dr. Aissatou Vásquez mecA/C MREJ Not Applicable Normal NOT DETECTED [facility] Comment on above: Performed By: #### C ADAM #### [facility] [address] [place] [address] Dr. Aissatou Vásquez N. meningitidis Not detected Normal NOT DETECTED [facility] Comment on above: Performed By: #### C ADAM #### [facility] [address] [place] [address] Dr. Aissatou Vásquez NDM Resistant Gene Not detected Normal NOT DETECTED [facility] Comment on above: Performed By: #### C ADAM #### [facility] [address] [place] [address] Dr. Aissatou Vásquez Oxa-48-like Not detected Normal NOT DETECTED [facility] Comment on above: Performed By: #### C ADAM #### [facility] [address] [place] [address] Dr. Aissatou Vásquez Proteus Not detected Normal NOT DETECTED [facility] Comment on above: Performed By: #### C ADAM #### [facility] [address] [place] [address] Dr. Aissatou Vásquez Pseud. aeruginosa Not detected Normal NOT DETECTED [facility] Comment on above: Performed By: #### C ADAM #### [facility] [address] [place] [address] Dr. Aissatou Vásquez S. maltophilia Not detected Normal NOT DETECTED [facility] Comment on above: Performed By: #### C ADAM #### [facility] [address] [place] [address] Dr. Aissatou Vásquez Salmonella Not detected Normal NOT DETECTED [facility] Comment on above: Performed By: #### C ADAM #### [facility] [address] [place] [address] Dr. Aissatou Vásquez Seratia marcescens Not detected Normal NOT DETECTED [facility] Comment on above: Performed By: #### C ADAM #### [facility] [address] [place] [address] Dr. Aissatou Vásquez Site: IV Normal [facility] Comment on above: Performed By: #### C ADAM #### [facility] [address] [place] [address] Dr. Aissatou Vásquez Staph. aureus Not detected Normal NOT DETECTED [facility] Comment on above: Performed By: #### C ADAM #### [facility] [address] [place] [address] Dr. Aissatou Vásquez Staph. epidermidis Not detected Normal NOT DETECTED [facility] Comment on above: Performed By: #### C ADAM #### [facility] [address] [place] [address] Dr. Aissatou Vásquez Staph. lugdunensis Not detected Normal NOT DETECTED [facility] Comment on above: Performed By: #### C ADAM #### [facility] [address] [place] [address] Dr. Aissatou Vásquez Staphylococcus Not detected Normal NOT DETECTED [facility] Comment on above: Performed By: #### C ADAM #### [facility] [address] [place] [address] Dr. Aissatou Vásquez Strep. agalactiae Not detected Normal NOT DETECTED [facility] Comment on above: Performed By: #### C ADAM #### [facility] [address] [address] [address] Aissatou Vásquez Strep. pneumoniae Not detected Normal NOT DETECTED [facility] Comment on above: Performed By: #### C ADAM #### [facility] [address] [address] [address] Aissatou Vásquez Strep. pyogenes Not detected Normal NOT DETECTED [facility] Comment on above: Performed By: #### C ADAM #### [facility] [address] [address] [address] Aissatou Vásquez Streptococcus Not detected Normal NOT DETECTED [facility] Comment on above: Performed By: #### C ADAM #### [facility] [address] [place] [address] Dr. Aissatou Vásquez Akila/Uri Resist. Gene Not Applicable Normal NOT DETECTED [facility] Comment on above: Performed By: #### C ADAM #### [facility] [address] [address] [address] Aissatou Vásquez VIM Resistant Gene Not detected Normal NOT DETECTED [facility] Comment on above: Performed By: #### C ADAM #### [facility] [address] [address] [address] Aissatou Vásquez CBC W MANUAL DIFFon 07-01-20 22 ATYPICAL LYMPH # Normal [facility] Comment on above: Performed By: #### C BCMAN ####[facility] [address] [address]DrBud Vásquez ATYPICAL LYMPH % Normal [facility] Comment on above: Performed By: #### C BCMAN ####[facility] [address] [address]DrBud Vásquez BAND # 0.4 103/ul Critically high 0.0-0.3 [facility] Comment on above: Performed By: #### C BCMAN ####[facility] [address] [address]Dr. Aissatou Vásquez BAND % 3 % Normal 0-5 [facility] Comment on above: Performed By: #### C BCMAN ####[facility] [address] [id number]. Aissatou Vásquez BASOM # 0.00 103/ul Normal 0.00-0.10 [facility] Comment on above: Performed By: #### C BCMAN ####[facility] [address] [address]Dr. Aissatou Vásquez BASOM % 0.0 % Critically low 0.2-2.0 [facility] Comment on above: Performed By: #### C BCMAN ####[facility] [address] [address]Dr. Aissatou Vásquez BLAST # Normal [facility] Comment on above: Performed By: #### C BCRITCHIE ####[facility] [address] [address]Dr. Aissatou Vásquez BLAST % Normal [facility] Comment on above: Performed By: #### C BCRITCHIE ####[facility] [address] [place], [place] [address]Dr. Aissatou Vásquez CORRECTED WBC Normal 4.0-11.0 The [facility] Comment on above: Performed By: #### C BCRITCHIE ####[facility] [address] [place], [place] [address]Dr. Aissatou Vásquez EOS # 0.12 103/ul Normal 0.00-0.70 [facility] Comment on above: Performed By: #### C BCRITCHIE ####[facility] [address] [address]Dr. Aissatou Vásquez EOS% 1.0 % Normal 0.9-7.0 [facility] Comment on above: Performed By: #### C BCRITCHIE ####[facility] [address] [address]Dr. Aissatou Vásquez HCT 46.0 % Normal 42.0-54.0 [facility] Comment on above: Performed By: #### C BCMAN ####[facility] [address] [place], [place] [address]Dr. Aissatou Vásquez HGB 14.6 g/dl Normal 14.0-18.0 [facility] Comment on above: Performed By: #### Soni DEL CASTILLO ####[facility] [address] [place], [place] [address]Dh. Aissatou Vásquez LYMPHM # 0.62 103/ul Critically low 1.20-3.80 [facility] Comment on above: Performed By: #### Soni DEL CASTILLO ####[facility] [address] [place], [place] [address]Ui. Aissatou Vásquez LYMPHM% 5.0 % Critically low 20.5-60.0 [facility] Comment on above: Performed By: #### Soni DEL CASTILLO ####[facility] [address] [id number]. Aissatou Vásquez MCH 29.9 pg Normal 25.9-34.0 [facility] Comment on above: Performed By: #### Soni DEL CASTILLO ####[facility] [address] [id number]. Aissatou Vásquez MCHC 31.7 g/dl Normal 29.9-35.2 [facility] Comment on above: Performed By: #### Soni DEL CASTILLO ####[facility] [address] [id number]. Aissatou Vásquez MCV 94.1 fL Critically high 80.0-94.0 [facility] Comment on above: Performed By: #### Soni DEL CASTILLO ####[facility] [address] [id number]. Aissatou Vásquez METAMYELOCYTE # Normal [facility] Comment on above: Performed By: #### Soni DEL CASTILLO ####[facility] [address] [id number]. Aissatou Vásquez METAMYELOCYTE % Normal [facility] Comment on above: Performed By: #### Soni DEL CASTILLO ####[facility] [address] [id number]. Aissatou Vásquez MONOM# 0.62 103/ul Normal 0.30-0.80 [facility] Comment on above: Performed By: #### Soni DEL CASTILLO ####[facility] [address] [place] [id number]. Aissatou Vásquez MONOM% 5.0 % Normal 1.7-12.0 [facility] Comment on above: Performed By: #### C ABUNDIO ####[facility] [address] [place] [id number]. Aissatou Vásquez MPV 10.4 fL Normal 9.5-13.5 [facility] Comment on above: Performed By: #### C ABUNDIO ####[facility] [address] [place] [id number]. Aissatou Vásquez MYELOCYTE # Normal [facility] Comment on above: Performed By: #### C ABUNDIO ####[facility] [address] [id number]. Aissatou Vásquez MYELOCYTE % Normal [facility] Comment on above: Performed By: #### C ABUNDIO ####[facility] [address] [place] [id number]. Aissatou Vásquez NRBC Normal [facility] Comment on above: Performed By: #### C ABUNDIO ####[facility] [address] [id number]. Aissatou Vásquez PLT 171 103/ul Normal 150-450 [facility] Comment on above: Performed By: #### C ABUNDIO ####[facility] [address] [id number]. Aissatou Vásquez RBC 4.89 106/ul Normal 4.70-6.10 [facility] Comment on above: Performed By: #### C ABUNDIO ####[facility] [address] [id number]. Aissatou Vásquez RDW 13.4 % Normal 11.0-15.0 [facility] Comment on above: Performed By: #### C ABUNDIO ####[facility] [address] [id number]. Aissatou Vásquez SEG # 10.66 103/ul Critically high 1.40-6.50 [facility] Comment on above: Performed By: #### C ABUNDIO ####[facility] [address] [id number] Vásquez SEG % 86.0 % Critically high 43.0-75.0 [facility] Comment on above: Performed By: #### C ABUNDIO ####[facility] [address] [place], [place] [address]EoDr. Aissatou Vásquez WBC 12.4 103/ul Critically high 4.0-11.0 [facility] Comment on above: Performed By: #### C ABUNDIO ####[facility] [address] [place], [place] [address]ZqDr. Aissatou Vásquez CPKon 07-01-2022 CK [Catalytic activity/Vol] 1646 U/L Critically high 39-308 [facility] Comment on above: Performed By: #### L IVER, BMP, HSTROPN #### [facility] [address] [place], [place] [address] [address] Vásquez [address] CSPINE WO CONon [...] KOKO ROMANO Date: 2022-07-01 19:22 Normal [facility] [address] STROKE HEAD WOon 07-01-20 [...] BERNADETTE BEDOLLA Date: 2022-07-01 17:37 Normal [facility] CULTURE BLOODon 07-01-2022 Microscopic examination of blood, culture Culture Observations: NO GROWTH AT 5 DAYS. Normal [facility] Comment on above: Performed By: #### B [facility] ####[facility] [address] [place], [place] [address]Lh. Aissatou Vásquez Covid-19 PCR ([facility])on 06-06 SARS-CoV-2 (COVID-19) RNA HALLE+probe Ql (Unsp spec) Not detected Normal NOT DETECTED [facility] Comment on above: Result Comment: [...] for this test is supported by the [employer] District Law Clerk of Health and Human Service's declaration that [...] By: #### L IVER, BMP, HSTROPN #### [facility] [address] [place] [address] Dr. Aissatou Vásquez DRUG SCREEN RAPID (URINE)on 07-01-2022 AMP Negative Normal NEGATIVE [facility] Comment on above: Performed By: #### C ADAM #### [facility] [address] [place] [address] Dr. Aissatou Vásquez BAR Negative Normal NEGATIVE [facility] Comment on above: Performed By: #### C ADAM #### [facility] [address] [place] [address] Dr. Aissatou Vásquez BUP Negative Normal NEGATIVE [facility] Comment on above: Performed By: #### C ADAM #### [facility] [address] [place] [address] Dr. Aissatou Vásquez BZO Negative Normal NEGATIVE [facility] Comment on above: Performed By: #### C ADAM #### [facility] [address] [place] [address] Dr. Aissatou Vásquez MARYJANE Negative Normal NEGATIVE [facility] Comment on above: Performed By: #### C ADAM #### [facility] [address] [place] [address] Dr. Aissatou Vásquez CUT-OFFS SEE BELOW Normal [facility] Comment on above: Result Comment: [...] ng/mL Performed By: #### C ADAM #### [facility] [address] [place] [address] Dr. Aissatou Vásquez DRUG CUT HEADER DRUG CLASS TEST SYSTEM CUT-OFF CONCENTRATIONS ARE FOLLOWS: Normal [facility] Comment on above: Performed By: #### C ADAM #### [facility] [address] [place] [address] Dr. Aissatou Vásquez mAMP Negative Normal NEGATIVE [facility] Comment on above: Performed By: #### C ADAM #### [facility] [address] [place] [address] Dr. Aissatou Vásquez MTD Negative Normal NEGATIVE [facility] Comment on above: Performed By: #### C ADAM #### [facility] [address] [place] [address] Dr. Aissatou Vásquez OPI Negative Normal NEGATIVE [facility] Comment on above: Performed By: #### C ADAM #### [facility] [address] [place] [address] Dr. Aissatou Vásquez OXY Negative Normal NEGATIVE [facility] Comment on above: Performed By: #### C ADAM #### [facility] [address] [place] [address] Dr. Aissatou Vásquez PCP Negative Normal NEGATIVE [facility] Comment on above: Performed By: #### C ADAM #### [facility] [address] [place] [address] Dr. Aissatou Vásquez PPX Negative Normal NEGATIVE [facility] Comment on above: Performed By: #### C ADAM #### [facility] [address] [place] [address] Dr. Aissatou Vásquez TCA Negative Normal NEGATIVE [facility] Comment on above: Performed By: #### C ADAM #### [facility] [address] [place] [address] Dr. Aissatou Vásquez THC Negative Normal NEGATIVE [facility] Comment on above: Performed By: #### C ADAM #### [facility] [address] [place] [address] Dr. Aissatou Vásquez ER URINE PROFILEon 2 Bilirubin Ql (U) Negative Normal NEGATIVE [facility] Comment on above: Performed By: #### C ADAM #### [facility] [address] [place] [address] Dr. Aissatou Vásquez Clarity (U) CLEAR Normal CLEAR [facility] Comment on above: Performed By: #### C ADAM #### [facility] [address] [place] [address] Dr. Aissatou Vásquez Color (U) YELLOW Normal YELLOW [facility] Comment on above: Performed By: #### C ADAM #### [facility] [address] [place] [address] Dr. Aissatou Vásquez ERUAHD A micrscopic examination will be performed if indicated. Normal [facility] Comment on above: Performed By: #### C ADAM #### [facility] [address] [place] [address] Dr. Aissatou Vásquez Glucose Ql (U) Negative Normal NEGATIVE [facility] Comment on above: Performed By: #### C ADAM #### [facility] [address] [place] [address] Dr. Aissatou Vásquez Hemoglobin Ql (U) MODERATE Abnormal NEGATIVE [facility] Comment on above: Performed By: #### C ADAM #### [facility] [address] [place] [address] Dr. Aissatou Vásquez Ketones Ql (U) 15 mg/dl Abnormal NEGATIVE [facility] Comment on above: Performed By: #### C ADAM #### [facility] [address] [place] [address] Dr. Aissatou Vásquez LEUKOCYTES Negative Normal NEGATIVE [facility] Comment on above: Performed By: #### C ADAM #### [facility] [address] [place] [address] Dr. Aissatou Vásquez Nitrite Ql (U) Negative Normal NEGATIVE [facility] Comment on above: Performed By: #### C ADAM #### [facility] [address] [place] [address] Dr. Aissatou Vásquez pH (U) 5.0 [pH] Normal 5-9 [facility] Comment on above: Performed By: #### C ADAM #### [facility] [address] [place] [address] Dr. Aissatou Vásquez SPEC GRAVITY 1.025 Normal 1.005-<=1.025 [facility] Comment on above: Performed By: #### C ADAM #### [facility] [address] [place] [address] Dr. Aissatou Vásquez UA PROTEIN TRACE Normal NEGATIVE/ TRACE [facility] Comment on above: Performed By: #### C ADAM #### [facility] [address] [place] [address] Dr. Aissatou Vásquez UR MICRO IND INDICATED Normal [facility] Comment on above: Performed By: #### C ADAM #### [facility] [address] [place] [address] Dr. Aissatou Vásquez Urobilinogen Qn (U) 0.2 {Ilene'U}/dL Normal 0.2 - 1. 0 [facility] Comment on above: Performed By: #### C ADAM #### [facility] [address] [place] [address] Dr. Aissatou Vásquez LIVER PROFILEon 07-01-2022 Albumin [Mass/Vol] 3.7 g/dL Normal 3.4-5.0 [facility] Comment on above: Performed By: #### L IVER BMP, HSTROPN #### [facility] [address] [place] [address] Dr. Aissatou Vásquez Albumin/Globulin [Mass ratio] 0.9 {ratio} Normal [facility] Comment on above: Performed By: #### L IVER BMP, HSTROPN #### [facility] [address] [place] [address] Dr. Aissatou Vásquez ALP [Catalytic activity/Vol] 143 U/L Critically high 46-116 [facility] Comment on above: Performed By: #### L IVER, BMP, HSTROPN #### [facility] [address] [address] [address] Aissatou Vásquez ALT [Catalytic activity/Vol] 56 U/L Normal 16-63 [facility] Comment on above: Performed By: #### L IVER, BMP, HSTROPN #### [facility] [address] [address] [address] Aissatou Vásquez AST [Catalytic activity/Vol] 87 U/L Critically high 15-37 [facility] Comment on above: Performed By: #### L IVER, BMP, HSTROPN #### [facility] [address] [place] [address] Dr. Aissatou Vásquez BILI, CONJUGATED 0.2 mg/dL Normal 0.0-0.2 [facility] Comment on above: Performed By: #### L IVER, BMP, HSTROPN #### [facility] [address] [place] [address] Dr. Aissatou Vásquez Bilirubin [Mass/Vol] 0.6 mg/dL Normal 0.2-1.0 [facility] Comment on above: Performed By: #### L IVER, BMP, HSTROPN #### [facility] [address] [place] [address] Dr. Aissatou Vásquez Globulin (S) [Mass/Vol] 3.9 g/dL Normal [facility] Comment on above: Performed By: #### L IVER, BMP, HSTROPN #### [facility] [address] [place] [address] Dr. Aissatou Vásquez Protein [Mass/Vol] 7.6 g/dL Normal 6.4-8.2 [facility] Comment on above: Performed By: #### L IVER, BMP, HSTROPN #### [facility] [address] [place] [address] Dr. Aissatou Vásquez MYOGLOBINon 07-01-2022 SARAH 2042 ng/mL Critically high 16-96 [facility] Comment on above: Performed By: #### L IVER, BMP, HSTROPN #### [facility] [address] [address] [address] Aissatou Vásquez PROF CHEM 8 (BAS METB)on Anion gap [Moles/Vol] 18.5 mmol/L Normal [facility] Comment on above: Performed By: #### L IVER, BMP, HSTROPN #### [facility] [address] [address] [address] Aissatou Vásquez Calcium [Mass/Vol] 9.8 mg/dL Normal 8.5-10.1 [facility] Comment on above: Performed By: #### L IVER, BMP, HSTROPN #### [facility] [address] [address] [address] Aissatou Vásquez Chloride [Moles/Vol] 104 mmol/L Normal 98-107 [facility] Comment on above: Performed By: #### L IVER, BMP, HSTROPN #### [facility] [address] [address] [address] Aissatou Vásquez CO2 [Moles/Vol] 24.3 mmol/L Normal 21.0-32.0 [facility] Comment on above: Performed By: #### L IVER, BMP, HSTROPN #### [facility] [address] [address] [address] Aissatou Vásquez Creatinine [Mass/Vol] 1.74 mg/dL Critically high 0.70-1.30 [facility] Comment on above: Performed By: #### L IVER, BMP, HSTROPN #### [facility] [address] [address] [address] Aissatou Vásquez EGFR-AF JORDANIAN 46 mL/min/1.73m2 Critically low >=60 [facility] Comment on above: Performed By: #### L IVER, BMP, HSTROPN #### [facility] [address] [address] [address] Aissatou Vásquez EGFR-NON AF JORDANIAN 38 mL/min/1.73m2 Critically low >=60 [facility] Comment on above: Performed By: #### L IVER, BMP, HSTROPN #### [facility] [address] [address] [address] Aissatou Vásquez Glucose [Mass/Vol] 115 mg/dL Critically high 74-106 [facility] Comment on above: Performed By: #### L IVER, BMP, HSTROPN #### [facility] [address] [address] [address] Aissatou Vásquez Potassium [Moles/Vol] 4.8 mmol/L Normal 3.5-5.1 [facility] Comment on above: Performed By: #### L IVER, BMP, HSTROPN #### [facility] [address] [place] [address] Dr. Aissatou Vásquez Sodium [Moles/Vol] 142 mmol/L Normal 136-145 [facility] Comment on above: Performed By: #### L IVER, BMP, HSTROPN #### [facility] [address] [address] [address] Aissatou Vásquez Urea nitrogen [Mass/Vol] 54.0 mg/dL Critically high 7.0-18.0 [facility] Comment on above: Performed By: #### L IVER, BMP, HSTROPN #### [facility] [address] [place] [address] Dr. Aissatou Vásquez Urea nitrogen/Creatinine [Mass ratio] 31.0 mg/mg Normal [facility] Comment on above: Performed By: #### L IVER, BMP, HSTROPN #### [facility] [address] [place] [address] Dr. Aissatou Vásquez TROPONIN, HIGH SENSITIVITYon 07-01-2022 HSTROP 102.3 pg/mL Critically high 4.0-76.1 [facility] Comment on above: Result Comment: CUT- OFF POINTS HAVE BEEN ESTABLISHED BASED ON THE FOURTH UNIVERSAL DEFINITIONS OF MYOCARDIAL INFARCTION. THE UPPER REFERENCE LIMIT (URL) OF TROPONIN, DEFINED THE 99TH PERCENTILE OF cTnI DISTRIBUTION IN A REFERENCE POPULATION, HAS BEEN CONFIRMED THE DECISION THRESHOLD FOR [place] DIAGNOSIS. Performed By: #### H STROPN ####[facility] [address] [place] [address]Dr. Aissatou Vásquez HSTROP 132.4 pg/mL Critically high 4.0-76.1 [facility] Comment on above: Result Comment: CUT- OFF POINTS HAVE BEEN ESTABLISHED BASED ON THE FOURTH UNIVERSAL DEFINITIONS OF MYOCARDIAL INFARCTION. THE UPPER REFERENCE LIMIT (URL) OF TROPONIN, DEFINED THE 99TH PERCENTILE OF cTnI DISTRIBUTION IN A REFERENCE POPULATION, HAS BEEN CONFIRMED THE DECISION THRESHOLD FOR [place] DIAGNOSIS. Performed By: #### L IVER, BMP, HSTROPN #### [facility] [address] [address] [address] Aissatou Vásquez TSHon 07-01-2022 TSH 7.840 uIU/mL Critically high 0.358-3.740 [facility] Comment on above: Performed By: #### L IVER BMP, HSTROPN #### [facility] [address] [place] [address] Dr. Aissatou Vásquez URINE MICROSCOPIC ONLYon BACTERIA NONE SEEN Normal NONE SEEN [facility] Comment on above: Performed By: #### C ADAM #### [facility] [address] [place] [address] Dr. Aissatou Vásquez Bacteria identified Cx Nom (U) NOT INDICATED Normal [facility] Comment on above: Performed By: #### C ADAM #### [facility] [address] [place] [address] Dr. Aissatou Vásquez CAST NONE SEEN Normal NONE SEEN [facility] Comment on above: Performed By: #### C ADAM #### [facility] [address] [place] [address] Dr. Aissatou Vásquez Crystals LM Nom (Urine sed) NONE SEEN Normal NONE SEEN [facility] Comment on above: Performed By: #### C ADAM #### [facility] [address] [place] [address] Dr. Aissatou Vásquez Epithelial cells LM Ql (Urine sed) RARE Normal NONE SEEN /RARE [facility] Comment on above: Performed By: #### C ADAM #### [facility] [address] [place] [address] Dr. Aissatou Vásquez MUCOUS TRACE Abnormal NONE SEEN [facility] Comment on above: Performed By: #### C ADAM #### [facility] [address] [place] [address] Dr. Aissatou Vásquez RBC 2-5 Abnormal 0-2 [facility] Comment on above: Performed By: #### C ADAM #### [facility] [address] [place] [address] Dr. Aissatou Vásquez WBC 2-5 Abnormal NONE SEEN [facility] Comment on above: Performed By: #### C ADAM #### [facility] [address] [place] [address] Dr. Aissatou Vásquez XR CHEST 1 Von [...] Jhony TOTH Date: 2022-07-01 18:01 Normal [facility] AMMONIAon 06-05-2022 Ammonia (P) [Mass/Vol] ug/dL Critically low 11-32 [facility] Comment on above: Performed By: #### L IVER, BMP, HSTROPN #### [facility] [address] [place] [address] Dr. Aissatou Vásquez BNPon 06-05-2022 Natriuretic peptide B (Bld) [Mass/Vol] 672.0 pg/mL Normal <=1,800.0 [facility] Comment on above: Performed By: #### T SH, CMP, FT3, BNP, T4, LIPID #### [facility] [address] [place] [address] Dr. Aissatou Vásquez CBC AUTO DIFFon 06-05-2022 BASO # 0.0 103/ul Normal 0.0-0.1 [facility] Comment on above: Performed By: #### C ADAM #### [facility] [address] [place] [address] Dr. Aissatou Vásquez Basophils/100 WBC (Bld) 0.6 % Normal 0.2-2.0 [facility] Comment on above: Performed By: #### C ADAM #### [facility] [address] [place] [address] Dr. Aissatou Vásquez EO # 0.0 103/ul Normal 0.0-0.7 [facility] Comment on above: Performed By: #### C ADAM #### [facility] [address] [place] [address] Dr. Aissatou Vásquez Eosinophils/100 WBC (Bld) 0.6 % Critically low 0.9-7.0 [facility] Comment on above: Performed By: #### C ADAM #### [facility] [address] [place] [address] Dr. Aissatou Vásquez Erythrocyte distribution width (RBC) [Ratio] 13.7 % Normal 11.0-15.0 [facility] Comment on above: Performed By: #### C ADAM #### [facility] [address] [place] [address] Dr. Aissatou Vásquez Hematocrit (Bld) [Volume fraction] 40.7 % Critically low 42.0-54.0 [facility] Comment on above: Performed By: #### C ADAM #### [facility] [address] [place] [address] Dr. Aissatou Vásquez Hemoglobin (Bld) [Mass/Vol] 12.8 g/dL Critically low 14.0-18.0 [facility] Comment on above: Performed By: #### C ADAM #### [facility] [address] [place] [address] Dr. Aissatou Vásquez IG # 0.01 10e3/ul Normal 0.00-0.03 [facility] Comment on above: Performed By: #### C ADAM #### [facility] [address] [place] [address] Dr. Aissatou Vásquez IG % 0.2 % Normal 0.0-0.5 [facility] Comment on above: Performed By: #### C ADAM #### [facility] [address] [address] [address] Aissatou Vásquez LYMPH # 1.7 103/ul Normal 1.2-3.8 [facility] Comment on above: Performed By: #### C ADAM #### [facility] [address] [address] [address] Aissatou Vásquez Lymphocytes/100 WBC (Bld) 27.5 % Normal 20.5-60.0 [facility] Comment on above: Performed By: #### C ADAM #### [facility] [address] [place] [address] Dr. Aissatou Vásquez MANUAL DIFF REQ NO Normal [facility] Comment on above: Performed By: #### C ADAM #### [facility] [address] [place] [address] Dr. Aissatou Vásquez MCH (RBC) [Entitic mass] 30.3 pg Normal 25.9-34.0 [facility] Comment on above: Performed By: #### C ADAM #### [facility] [address] [place] [address] Dr. Aissatou Vásquez MCHC (RBC) [Mass/Vol] 31.4 g/dL Normal 29.9-35.2 [facility] Comment on above: Performed By: #### C ADAM #### [facility] [address] [place] [address] Dr. Aissatou Vásquez MCV (RBC) [Entitic vol] 96.2 fL Critically high 80.0-94.0 [facility] Comment on above: Performed By: #### C ADAM #### [facility] [address] [place] [address] Dr. Aissatou Vásquez MONO # 0.6 103/ul Normal 0.3-0.8 [facility] Comment on above: Performed By: #### C ADAM #### [facility] [address] [place] [address] Dr. Aissatou Vásquez Monocytes/100 WBC (Bld) 9.9 % Normal 1.7-12.0 [facility] Comment on above: Performed By: #### C ADAM #### [facility] [address] [address] [address] Aissatou Vásquez NEUT # 3.8 103/ul Normal 1.4-6.5 [facility] Comment on above: Performed By: #### C ADAM #### [facility] [address] [address] [address] Aissatou Vásquez Neutrophils/100 WBC (Bld) 61.2 % Normal 43.0-75.0 [facility] Comment on above: Performed By: #### C ADAM #### [facility] [address] [address] [address] Aissatou Vásquez Platelet mean volume (Bld) [Entitic vol] 9.3 fL Critically low 9.5-13.5 [facility] Comment on above: Performed By: #### C ADAM #### [facility] [address] [address] [address] Aissatou Vásquez PLT 218 103/ul Normal 150-450 [facility] Comment on above: Performed By: #### C ADAM #### [facility] [address] [address] [address] Aissatou Vásquez RBC 4.23 106/ul Critically low 4.70-6.10 [facility] Comment on above: Performed By: #### C ADAM #### [facility] [address] [address] [address] Aissatou Vásquez WBC 6.3 103/ul Normal 4.0-11.0 [facility] Comment on above: Performed By: #### C ADAM #### [facility] [address] [address] [address] Aissatou Vásquez FREE T3on 06-05-2022 FREE T3 1.80 pg/mlL Critically low 2.18-3.98 [facility] Comment on above: Performed By: #### T SH, CMP, FT3, BNP, T4, LIPID #### [facility] [address] [address] [address] Aissatou Vásquez GLYCOHEMOGLOBIN A1Con 2021 ADA RECOMMENDATION SEE BELOW Normal [facility] Comment on above: Result Comment: ADA RECOMMENDED LIMIT 4.0 - 6.0 ADA THERAPEUTIC TARGET < 7.0 ACTION SUGGESTED > 7.0 Performed By: #### L DHARA WAITE, HSTROPN #### [facility] [address] [address] [address] Aissatou Vásquez Glucose [Mass/Vol] 117 mg/dL Normal [facility] Comment on above: Performed By: #### L DHARA WAITE, HSTROPN #### [facility] [address] [address] [address] Aissatou Vásquez HbA1c (Bld) [Mass fraction] 5.7 % Normal 4.5-6.2 [facility] Comment on above: Performed By: #### L DHARA WAITE, HSTROPN #### [facility] [address] [address] [address] Aissatou Vásquez IRONon 06-05-2022 Iron [Mass/Vol] 76.0 ug/dL Normal 65.0-175.0 [facility] Comment on above: Performed By: #### P SASC, VITAD, IRON, B12FOL ####[facility] [address] [address]DrBud Vásquez LIPID PROFILEon 06-05-2022 CHOL-HDL RATIO NORM SEE BELOW Normal [facility] Comment on above: Result Comment: 3.3 - 4.4 LOW RISK 4.4 - 7.1 AVERAGE RISK 7.1 - 11.0 MODERATE RISK >11.0 HIGH RISK Performed By: #### T SH, CMP, FT3, BNP, T4, LIPID ####[facility] [address] [id number] Vásquez Cholesterol [Mass/Vol] 133 mg/dL Normal <=200 [facility] Comment on above: Performed By: #### T SH, CMP, FT3, BNP, T4, LIPID ####[facility] [address] [id number] Vásquez Cholesterol in HDL [Mass/Vol] 79 mg/dL Critically high 40-60 [facility] Comment on above: Performed By: #### T SH, CMP, FT3, BNP, T4, LIPID ####[facility] [address] [address]Dr. Aissatou Vásquez Cholesterol in LDL [Mass/Vol] 43.6 mg/dL Normal [facility] Comment on above: Performed By: #### T SH, CMP, FT3, BNP, T4, LIPID ####[facility] [address] [address]Dr. Aissatou Vásquez Cholesterol.total/Cho lesterol in HDL [Mass ratio] 1.7 {ratio} Normal [facility] Comment on above: Performed By: #### T SH, CMP, FT3, BNP, T4, LIPID ####[facility] [address] [address]Dr. Aissatou Vásquez HDL NORMAL > or = 60 mg/dl - LO W CARDIOVASCULAR RISK <40 mg/dl - HIGH CARDIOVASCULAR RISK Normal [facility] Comment on above: Performed By: #### T SH, CMP, FT3, BNP, T4, LIPID ####[facility] [address] [address]Dr. Aissatou Vásquez LDL CALC NORMAL SEE BELOW Normal [facility] Comment on above: Result Comment: <100 mg/dl OPTIMAL 100 - 129 mg/dl NEAR OR ABOVE OPTIMAL 130 - 159 mg/dl BORDERLINE HIGH 160 - 189 mg/dl HIGH >190 mg/dl VERY HIGH Performed By: #### T SH, CMP, FT3, BNP, T4, LIPID ####[facility] [address] [address]Dr. Aissatou Vásquez Triglyceride [Mass/Vol] 52 mg/dL Normal <=150 [facility] Comment on above: Performed By: #### T SH, CMP, FT3, BNP, T4, LIPID ####[facility] [address] [address]Dr. Aissatou Vásquez VLDL CALC 10.4 mg/dL Normal [facility] Comment on above: Performed By: #### T SH, CMP, FT3, BNP, T4, LIPID ####[facility] [address] [address]Dr. Aissatou Vásquez PROF 14(COMP METB)on 022 Albumin [Mass/Vol] 4.0 g/dL Normal 3.4-5.0 [facility] Comment on above: Performed By: #### T SH, CMP, FT3, BNP, T4, LIPID ####[facility] [address] [address]Dr. Aissatou Vásquez Albumin/Globulin [Mass ratio] 1.1 {ratio} Normal [facility] Comment on above: Performed By: #### T SH, CMP, FT3, BNP, T4, LIPID ####[facility] [address] [address]Dr. Aissatou Vásquez ALP [Catalytic activity/Vol] 137 U/L Critically high 46-116 [facility] Comment on above: Performed By: #### T SH, CMP, FT3, BNP, T4, LIPID ####[facility] [address] [address]Dr. Aissatou Vásquez ALT [Catalytic activity/Vol] 18 U/L Normal 16-63 [facility] Comment on above: Performed By: #### T SH, CMP, FT3, BNP, T4, LIPID ####[facility] [address] [address]Dr. Aissatou Vásquez Anion gap [Moles/Vol] 11.1 mmol/L Normal [facility] Comment on above: Performed By: #### T SH, CMP, FT3, BNP, T4, LIPID ####[facility] [address] [address]Dr. Aissatou Vásquez AST [Catalytic activity/Vol] 9 U/L Critically low 15-37 [facility] Comment on above: Performed By: #### T SH, CMP, FT3, BNP, T4, LIPID ####[facility] [address] [address]Dr. Aissatou Vásquez Bilirubin [Mass/Vol] 0.3 mg/dL Normal 0.2-1.0 [facility] Comment on above: Performed By: #### T SH, CMP, FT3, BNP, T4, LIPID ####[facility] [address] [address]Dr. Aissatou Vásquez Calcium [Mass/Vol] 9.4 mg/dL Normal 8.5-10.1 [facility] Comment on above: Performed By: #### T SH, CMP, FT3, BNP, T4, LIPID ####[facility] [address] [address]Dr. Aissatou Vásquez Chloride [Moles/Vol] 102 mmol/L Normal 98-107 [facility] Comment on above: Performed By: #### T SH, CMP, FT3, BNP, T4, LIPID ####[facility] [address] [address]Dr. Aissatou Vásquez CO2 [Moles/Vol] 29.7 mmol/L Normal 21.0-32.0 [facility] Comment on above: Performed By: #### T SH, CMP, FT3, BNP, T4, LIPID ####[facility] [address] [place], [place] [address]Dr. Aissatou Vásquez Creatinine [Mass/Vol] 1.62 mg/dL Critically high 0.70-1.30 [facility] Comment on above: Performed By: #### T SH, CMP, FT3, BNP, T4, LIPID ####[facility] [address] [address]Dr. Aissatou Vásquez EGFR-AF JORDANIAN 50 mL/min/1.73m2 Critically low >=60 [facility] Comment on above: Performed By: #### T SH, CMP, FT3, BNP, T4, LIPID ####[facility] [address] [place], [place] [address]Dr. Aissatou Vásquez EGFR-NON AF JORDANIAN 41 mL/min/1.73m2 Critically low >=60 [facility] Comment on above: Performed By: #### T SH, CMP, FT3, BNP, T4, LIPID ####[facility] [address] [address]Dr. Aissatou Vásquez Globulin (S) [Mass/Vol] 3.8 g/dL Normal [facility] Comment on above: Performed By: #### T SH, CMP, FT3, BNP, T4, LIPID ####[facility] [address] [address]Dr. Aissatou Vásquez Glucose [Mass/Vol] 86 mg/dL Normal 74-106 [facility] Comment on above: Performed By: #### T SH, CMP, FT3, BNP, T4, LIPID ####[facility] [address] [address]Dr. Aissatou Vásquez Potassium [Moles/Vol] 4.8 mmol/L Normal 3.5-5.1 [facility] Comment on above: Performed By: #### T SH, CMP, FT3, BNP, T4, LIPID ####[facility] [address] [address]Dr. Aissatou Vásquez Protein [Mass/Vol] 7.8 g/dL Normal 6.4-8.2 [facility] Comment on above: Performed By: #### T SH, CMP, FT3, BNP, T4, LIPID ####[facility] [address] [place], [place] [address]Dr. Aissatou Vásquez Sodium [Moles/Vol] 138 mmol/L Normal 136-145 [facility] Comment on above: Performed By: #### T SH, CMP, FT3, BNP, T4, LIPID ####[facility] [address] [address]Dr. Aissatou Vásquez Urea nitrogen [Mass/Vol] 41.0 mg/dL Critically high 7.0-18.0 [facility] Comment on above: Performed By: #### T SH, CMP, FT3, BNP, T4, LIPID ####[facility] [address] [address]Dr. Aissatou Vásquez Urea nitrogen/Creatinine [Mass ratio] 25.3 mg/mg Normal [facility] Comment on above: Performed By: #### T SH, CMP, FT3, BNP, T4, LIPID ####[facility] [address] [address]Dr. Aissatou Vásquez T4on 06-05-2022 T4 [Mass/Vol] 9.70 ug/dL Normal 4.50-12.10 [facility] Comment on above: Performed By: #### T SH, CMP, FT3, BNP, T4, LIPID #### [facility] [address] [place], [place] [address] Dr. Aissatou Vásquez TSHon 06-05-2022 TSH 2.525 uIU/mL Normal 0.358-3.740 [facility] Comment on above: Performed By: #### T SH, CMP, FT3, BNP, T4, LIPID ####[facility] [address] [id number]. Aissatou Vásquez VIT B12 AND FOLATEon 022 Cobalamin (Vitamin B12) [Mass/Vol] 1004.0 pg/mL Critically high 193.0-986.0 [facility] Comment on above: Performed By: #### P SASC, VITAD, IRON, B12FOL ####[facility] [address] [address]Dr. Aissatou Vásquez FOLATE 6.10 ng/mL Critically low 8.60-58.90 [facility] Comment on above: Performed By: #### P SASC, VITAD, IRON, B12FOL ####[facility] [address] [address]Dr. Aissatou Vásquez VITAMIN D 25 OHon 06-05-2022 VIT D 25-OH 31.8 ng/mL Normal [facility] Comment on above: Performed By: #### P SASC, VITAD, IRON, B12FOL ####[facility] [address] [address]Dr. Aissatou Vásquez VIT D RANGES SEE BELOW Normal [facility] Comment on above: Result Comment: <20 ng/mL Vit D deficient 20 - <30 ng/mL Vit D insufficient 30 - 100 ng/mL Vit D sufficient >100 ng/mL Potential Toxicity Performed By: #### P SASC, VITAD, IRON, B12FOL ####[facility] [address] [address]Dr. Aissatou Vásquez Coding Summary.on 01-23-2017 Coding Summary. CODING DATE: 01/23/2017 FINAL [facility] STATUS: Home (Routine DC) PAYOR: Medicare [...] [place] Date Saved: 01/23/2017 10:07 am Normal [facility] Creatinineon 01-22-2017 Creatinine 1.0 mg/dL Normal 0.5-1.3 [facility] Comment on above: Performed By: #### 2 [id number], [id number] ####[facility] [address] [place] [address] eGFRon 01-22-2017 eGFR (black) mL/min/{1.73_m2} Normal >=59 [facility] Comment on above: Order Comment: Order added by Discern Expert. Result Comment: eGFR is race adjusted. AA=. Performed By: #### 2 [id number], [id number] ####[facility] [address] [place] [address] eGFR (non-black) mL/min/{1.73_m2} Normal >=59 [facility] Comment on above: Order Comment: Order added by Discern Expert. Result Comment: Superintendent Institution matt kidney disease could be indicated at eGFR's of less than 60 mL/min/1.73m2. Kidney failure is indicated at less than 15 mL/min/1.73m2. Performed By: #### 2 [id number], [id number] ####[facility] [address] [place] [address] Vital Signs Date Time Vital Sign Value Performing Clinician Luci jacob 07-19-2024 16:05-0500 Body mass index (BMI) [Ratio] 24.59 kg/m2 Lydia Burris MD Work Phone: [facility] 07-19-2024 16:05-0500 Body weight 84.55 kg Lydia Burris MD Work Phone: [facility] 07-19-2024 16:05-0500 Diastolic blood pressure 70 mm[Hg] Lydia Burris MD Work Phone: [facility] 07-19-2024 16:05-0500 Systolic blood pressure 134 mm[Hg] Lydia Burris MD Work Phone: [facility] 06-08-2024 15:53-0500 Body height 185.4 cm Chadd Gonzalez MD Work Phone: [facility] 06-08-2024 15:53-0500 Body mass index (BMI) [Ratio] 24.14 kg/m2 Chadd Gonzalez MD Work Phone: [facility] 06-08-2024 15:53-0500 Body weight 83.01 kg Chadd Gonzalez MD Work Phone: [facility] 06-08-2024 15:53-0500 Diastolic blood pressure 60 mm[Hg] Chadd Gonzalez MD Work Phone: [facility] 06-08-2024 15:53-0500 Heart rate 72 /min Chadd Gonzalez MD Work Phone: [facility] 06-08-2024 15:53-0500 Systolic blood pressure 118 mm[Hg] Chadd Gonzalez MD Work Phone: [facility] 03-23-2023 13:55-0400 Diastolic blood pressure [...] [facility] 08-27-2022 13:12-0500 Heart rate 69 /min Jodi Banerjee DO Work Phone: [facility] 08-27-2022 13:12-0500 Systolic blood pressure 156 mm[Hg] Jodi Banerjee DO Work Phone: [facility] Encounters Encounter Date Encounter Type Care Provider Facility Start: 09-13-2024 End: 09-13-2024 ambulatory LYDIA Oli BEJ Not Available Start: 09-13-2024 End: 09-13-2024 Office outpatient visit 15 minutes Lydia Burris MD Work Phone: [facility] Comment on above: Cognitive decline (P rimary Dx); Parkinson's disease without dyskinesia or fluctuating manifestations (CMS/HCC); Polyneuropathy Start: 07-22-2024 End: 07-22-2024 ambulatory [facility] Start: 07-19-2024 End: 07-19-2024 ambulatory LYDIA D BEJ Not Available Start: 07-19-2024 End: 07-19-2024 Office outpatient new 60 minutes Lydia Burris MD Work Phone: [facility] Comment on above: Cognitive decline (P rimary Dx); Parkinson's disease without dyskinesia or fluctuating manifestations (CMS/HCC); Polyneuropathy Start: 07-19-2024 End: 07-19-2024 Maria De Jesus Burris MD Work Phone: [facility] Start: 07-19-2024 End: 07-19-2024 Maria De Jesus Burris MD Work Phone: [facility] Start: 06-16-2024 End: 06-16-2024 Telephone [...] [facility] Start: 05-30-2024 End: 05-30-2024 ambulatory [facility] Start: 06-24-2023 End: 06-24-2023 ambulatory [facility] Start: 03-23-2023 End: 03-23-2023 ambulatory JODI BANERJEE Facility:[facility] Start: 03-23-2023 End: 03-23-2023 Patient encounter [...] Start: 08-27-2022 End: 08-28-2022 ambulatory PIPE HOPKINS Facility:[facility] Start: 08-27-2022 End: 08-27-2022 Patient encounter [...] Start: 06-25-2017 End: 06-26-2017 Ambulatory DEFAULT PHYSICIAN Facility:[facility] Start: 01-22-2017 End: 01-23-2017 Ambulatory SHONDA ALTAMIRANO Facility:[facility] Start: 05-27-2011 Patient encounter status Johann Banerjee Work Phone: [facility] Work Phone: Procedures Date Procedure Procedure Detail Performing Clinician Start: 06-05-[address] ORTIZ HOPKINS . Comment on above: Performed By: #### P SASC, VITAD, IRON, B12FOL ####[facility] [address] [place], [place] [address]Va. Aissatou Vásquez Start: 02-20-2020 History of coronary [...] [facility] [address] [address] Lydia Burris MD [address] [address] [facility] Start: 09-06-2024 End: 09-06-2024 Patient encounter procedure 09/06/2024 1:45 PM EST Office Visit [facility] [address] [place] [id number] Lydia Burris MD [address] [id number] [facility] Start: 06-08-2024 End: 06-08-2025 US Retroperitoneum Ultrasound retroperitoneal complete Imaging Routine Urinary incontinence, unspecified type Expected: 06/08/2024, Expires: 06/08/2025 [facility] Work Phone: Comment on above: Expected: 06/08/2024 , Expires: 06/08/2025 Start: 03-06-2024 Influenza vaccination Influenza Vacc ine [facility] Start: 03-06-2023 Influenza vaccination Influenza Vacc ine (#1) [facility] Start: 08-27-2022 End: 10-27-2022 25-hydroxyvitamin D3 [Mass/volume] in Serum or Plasma [facility] Work Phone: Comment on above: Expected: 08/27/2022 , Expires: 10/27/2022 Start: 08-27-2022 End: 10-27-2022 SYPHILIS TOTAL W/REFLEX [facility] Work Phone: Comment on above: Expected: 08/27/2022 , Expires: 10/27/2022 Start: 07-06-2022 ADVANCE DIRECTIVE DISCUSSION ADVANCE DIRECTIVE DISCUSSION [facility] Start: 07-06-2022 DEPRESSION ASSESSMENT DEPRESSION ASS ESSMENT [facility] Start: 03-06-2022 Influenza vaccination INFLUENZA (#1) [facility] Start: 12-17-2019 DIABETES SCREEN DIABETES SCREEN [facility] [place] Start: 12-17-2019 Diabetes Screening Diabetes Screenin g [facility] Start: 05-21-2012 Hepatitis B surface antibody level LDL CHOLESTEROL [facility] Start: 2003 Fall Risk Screening Fall Risk Screen ing [facility] Start: 2003 Pneumococcal Vaccine : 65+ (1 - PCV) Pneumococcal Vaccine: 65+ (1 - PCV) [facility] Start: 2003 PNEUMOCOCCAL: 65+ (1 - PCV) PNEUMOCOCCAL: 65+ (1 - PCV) [facility] Start: 1988 Administration of varicella zoster vaccine Zoster (Shingles) Vaccine (1 of 2) [facility] Start: 1988 SHINGRIX VACCINE (1 of 2) GRIFFIN GRIX VACCINE (1 of 2) [facility] Start: 1957 DTaP,Tdap and Td Vac cines (1 - Tdap) DTaP,Tdap and Td Vaccines (1 - Tdap) [facility] Start: 1957 Urine microalbumin profile [facility] Start: 1950 Depression Screening Depression Scre ening [facility] Start: 1950 Tobacco Screening Tobacco Screening [facility] Start: 02-18-1939 COVID-19 VACCINE (#1) COVID-19 VACCI NE (#1) [facility] End: 06-08-2025 Bacteria identified in Urine by Culture Urine Culture Microbiology Routine Urinary incontinence, unspecified type 1 Occurrences starting 06/08/2024 until 06/08/2025 [facility] Comment on above: 1 Occurrences starti ng 06/08/2024 until 06/08/2025 [facility] Immunizations Immunization Date Immunization Notes Care Provider Jewell molina 06-18-2017 influenza virus vaccine, unspecified formulation Jodi Banerjee DO Work Phone: [facility] Payers Date Payer Category Payer Medicare (Managed Care) [facility] [id number] 2024 Medicare HMO [employer] [id number] 2024 Medicare [id number] 2022 [place] [id number] 2017 Medicare [id number] 2016 Private Health Insurance [id number] 2003 Medicare [id number] 1959 Medicaid [id number] 1959 Medicare [id number] 1959 Unknown [id number] 1938 Unknown [id number] [id number]. 593 1938 Unknown [id number] .[id number]. 593 1938 Unknown [id number] 2.16.840.1.910308.3.579.2. 593 1938 Unknown [id number] 2.16.840.1.720270.3.579.2. 593 1938 Unknown [id number] 2.16.840.1.779505.3.579.2. 593 1938 Unknown [id number] 2.16.840.1.302638.3.579.2. 593 1938 Unknown [id number] 2.16.840.1.820500.3.579.2. 593 1938 Unknown [id number] 2.16.840.1.579199.3.579.2. 593 1938 Unknown [id number] 2.16.840.1.799572.3.579.2. 1259 1938 Unknown [id number] [id number]. 1259 1938 Unknown [id number] [id number]. 1286 Unknown Social History Date Type Detail Facility Start: 08-27-2022 End: 03-05-2023 Tobacco smoking status NHIS Ex-smoker [facility] History of tobacco use Current smoker [facility] History of tobacco use Cigarette Smoker [facility] Start: 08-27-2022 End: 07-23-2023 Cigarettes smoked current (pack per day) - Reported 1 [facility] Start: 08-27-2022 Tobacco use and exposure Former smokeless tobacco user [facility] End: 06-02-1971 History of tobacco use User of smokeless tobacco [facility] Start: 08-27-2022 End: 03-23-2023 Alcohol intake Current drinker of alcohol (finding) [facility] Start: 08-27-2022 Tobacco Comment quit 40 yrs ago [facility] [place] Start: 05-21-2011 Alcohol Comment He drinks 4 gl asses of red wine weekly [facility] Start: 1940 Sex Assigned At Not on file [facility] Start: 03-23-2023 End: 07-23-2023 Tobacco use panel [facility] National Score (1-100), lower number is lower risk 52 [facility] Start: 03-05-2023 Tobacco use and exposure Smokeless tobacco non-user [facility] Start: 07-23-2023 Alcoholic beverage intake Lifetime non-drinker (finding) [facility] Tobacco smoking status AZIS Tobacco smoking consumption unknown [facility] Start: 1940 Sex assigned at Male P [facility] [place] Start: 08-06-2015 Sex Male (finding) [facility] NEGATED: Highlighted rowStart: NINF History of tobacco use Passive smoker [facility] Clinical Notes 05-28-2011 to 09-13-2024 Lydia Burris [...] in about 6 months (around 03/16/2025), 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 Lab Frequency Next Occurrence History of Present [...] (09/2024, Lesli/Randal) - gen slow Labs - [id number]/521H/_ Surgery Failed Dx PD Tx Sinemet 25/100 [...] file as of 09/13/2024. Lydia Burris M.D. [facility] Neurology ? [address] ? [place], [place] [address] ? ? fax Neurology ? Clinical Neurophysiology ? Epilepsy ? Sleep Disorders ? Clinical Informatics documented in this encounter [facility] 07-19-2024 History of Present illness Narrative Associated Problem(s): Cognitive decline Add memantine 10 -> bid. Then donepezil 10, titrate to 15 then 20 if tolerated (i.e. no GI issues), may split doses to bid to improve tolerance, remain at highest tolerated dose. MR brain, eval for disproportion of ventricles vs atrophy. Compare vs 2020 study. *Transfer images to [facility].* EEG 1 hour ([place]). Associated Problem(s): Parkinson disease (CMS/HCC) Add Sinemet [...] file as of 07/19/2024. Lydia Burris M.D. [facility] Neurology ? [address] ? [place], [place] [address] ? ? fax Neurology ? Clinical Neurophysiology ? Epilepsy ? Sleep Disorders ? Clinical Informatics documented in this encounter [facility] 06-16-2024 Miscellaneous Notes Received the ordered urine culture results and US report from Noris Pinon RN from [facility] where the Pt. Resides. Culture results [...] BID x 7 days. Order faxed to [facility] at [phone] as well. Nothing further at this time. documented in this encounter [facility] 06-16-2024 Telephone encounter Note Received the ordered urine culture results and US report from Noris Pinon RN from [facility] where the Pt. Resides. Culture results were very dark and hard to read. This nurse contacted the facility to see if there was any way to email a copy of this to see if it was easier to read. She stated she would try to email it to this nurse. Email was given. Awaiting the results. [facility] 06-16-2024 Telephone encounter Note Received emailed culture results. Culture results and US report sent to Dr Edmund MD. Received new orders for Pt. For ATB. New order was called into Noris Bolaños RN. New order for ATB per Dr Edmund MD: If sensitive to Amoxicillin/Ampicillin 500 mg PO BID x 7 days. Order faxed to [place] at [phone] as well. Nothing further at this time. [facility] 06-08-2024 Miscellaneous Notes [facility] [employer] bladder solution. Shalini. Diagnosis urinary incontinence documented in this encounter [facility] 06-08-2024 Telephone encounter Note [facility] bladder solution. Shalini. Diagnosis urinary incontinence [facility] 06-08-2024 History of Present illness Narrative Images from the original note were not included. [address] [place] [address] A [facility] [id number] Patient: Leanna Nelson Date of : 1940 [...] without great benefit. Plan: Renal bladder ultrasound. [facility] bladder solution. Digital rectal exam at the time of cystoscopy. Follow-up: Urine culture was ordered for his nursing care facility. Patient should have a renal bladder ultrasound through [facility]. Setup OR. Chadd Gonzalez MD I, Chadd [...] for your understanding. documented in this encounter [facility] 05-30-2024 Note [place] [facility] - [facility] Subjective Leanna Nelson is a 83 [...] (premature atrial contraction) Coronary artery disease involving [place] mills coronary artery of bay mills heart without angina pectoris Hx of CABG [...] shortness of breath. He lives in a skilled nursing. His blood pressure is elevated today. Review [...] , Rfl: lev (more content not included)... [facility] 06-24-2023 Note [place] [facility] - [facility] Subjective Leanna Nelson is a 82 y.o. year old male patient being seen for 6 mo follow up CAD, hypertension, chronic diastolic heart failure, and carotid artery stenosis. Had routine labs in Mar 2023. Doing well from cardiac standpoint. No recurrent syncope. Patient Active Problem List Diagnosis Chronic diastolic heart failure (CMS/HCC) PAC (premature atrial contraction) Coronary artery disease involving [place] coronary artery of [place] heart without angina pectoris Hx of CABG [...] , Rfl: multivitamin (more content not included)... [facility] 03-23-2023 Note HNO ID: [id number] Author: Jodi Banerjee, DO Service: ? Author Type: Physician Type: Progress Notes Filed: 03/23/2023 2:41 PM Note Text: [facility] Neurolog[facility] [place] Follow-up visit March 23, 2023 HPI: Overall [...] encounter he has moved and low lives [facility]. He states he does not [...] mainly his brother. He has seen by it systems engineer in 01/2023 with suggestion that he get a hearing aide but he refuses. After his last encounter he has followed up with cardiology concerning his heart rate that was auscultated on last encounter. They checked his heart rhythm and thought it was appropriate. This was as via physician in [place]. They deny other changes to his health and/or medications except for the above since our last encounter. PAST MEDICAL HISTORY Diagnosis Date Arthritis Carotid stenosis Coronary artery disease Coronary atherosclerosis of unspecified type of vessel, bay [place] or graft 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 Dyslipidemia Hypertension Hypertension Hypothyroid Lumbar disc disease Unspecified hypothyroidism Hypothyroidism PAST SURGICAL HISTORY Procedure Laterality Date PAST SURGICAL HISTORY OF CABG times 6 left internal thoracic artery to the ndn-ul-uocbih left anterior descending artery, reverse saphenous vein [...] tablet Take 5 (more content not included)... [facility] 03-23-2023 Miscellaneous Notes 03/23/2023 After visit Summary faxed to Dr Hopkins with confirmation received. PSS forgot to have pt complete release of information forms. This nurse has placed 2 copies in [place] mail for pt to complete and take to facility to release information to our office. VIDHYA was advised via voice message to send a [employer] msg if he had any further question. Terri Santos Lpn documented in this encounter [facility] 03-23-2023 Instructions Jodi Banerjee DO - 03/23/2023 2:40 PM EDT Please sign records release for last blood test results. documented in this encounter [facility] 03-23-2023 History of Present illness Narrative [facility] [place] Follow-up visit March 23, 2023 HPI: Overall [...] encounter he has moved and low lives [facility]. He states he does not [...] mainly his brother. He has seen by it systems engineer in 01/2023 with suggestion that he get a hearing aide but he refuses. After his last encounter he has followed up with cardiology concerning his heart rate that was auscultated on last encounter. They checked his heart rhythm and thought it was appropriate. This was as via physician in [place]. They deny other changes to his health and/or medications except for the above since our last encounter. PAST MEDICAL HISTORY Diagnosis Date Arthritis Carotid stenosis Coronary artery disease Coronary atherosclerosis of unspecified type of vessel, [place] or graft 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 Dyslipidemia Hypertension Hypertension Hypothyroid Lumbar disc disease Unspecified hypothyroidism Hypothyroidism PAST SURGICAL HISTORY Procedure Laterality Date PAST SURGICAL HISTORY OF CABG times 6 left internal thoracic artery to the bnn-rk-enlgwj left anterior descending artery, reverse saphenous vein [...] with more than 50% of the total vvxh-ks-gepp time of the visit in counseling / coordination of care. documented in this encounter [facility] 08-27-2022 Note HNO ID: [id number] Author: Jodi Banerjee DO Service: ? Author Type: Physician Type: Progress Notes Filed: 08/27/2022 2:35 PM Note Text: [facility] [place] New Patient Consultation August 27, 2022 HPI: [...] while there. They have been working with web content & social media manager at the facility he [...] Coronary atherosclerosis of unspecified type of vessel, [place] or graft 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 Dyslipidemia Hypertension Hypertension Hypothyroid Lumbar disc disease Unspecified hypothyroidism Hypothyroidism PAST SURGICAL HISTORY Procedure Laterality Date PAST SURGICAL HISTORY OF CABG times 6 left internal thoracic artery to the mwb-in-ldapow left anterior descending artery, reverse saphenous vein [...] Former Packs/day: 1.0 (more content not included)... [facility] 08-27-2022 History of Present illness Narrative [facility] [place] New Patient Consultation August 27, 2022 HPI: [...] while there. They have been working with web content & social media manager at the facility he [...] Coronary atherosclerosis of unspecified type of vessel, [place] or graft 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 Dyslipidemia Hypertension Hypertension Hypothyroid Lumbar disc disease Unspecified hypothyroidism Hypothyroidism PAST SURGICAL HISTORY Procedure Laterality Date PAST SURGICAL HISTORY OF CABG times 6 left internal thoracic artery to the rpn-wi-qfklnq left anterior descending artery, reverse saphenous vein [...] with more than 50% of the total gkpp-bw-kufs time of the visit in counseling / [...] [facility] Diagnosis Altered mental status, unspecified altered mental status type- Primary Memory loss [facility] Diagnosis Cognitive decline- Primary Parkinson's disease without dyskinesia or fluctuating manifestations (CMS/HCC) Polyneuropathy Unspecified hereditary and idiopathic peripheral neuropathy documented in this encounter [facility] HealthcareEvaluation note* Diagnosis Functional urinary incontinence- [...] idiopathic peripheral neuropathy documented in this encounter [facility] HealthcareInstructionsNot on filedocumented in this encounterProMedimn Health SystemInstructionsNot on filedocumented in this encounterProMediBarn[facility] SystemInstructionsNot on filedocumented in this encounterProMetro[facility] Summary Purpose Family History No Family History Records FoundNo Family History Records FoundNo Family History Records FoundNo Family History Records FoundNo Family History Records FoundNo Family History Records FoundNo Family History Records FoundNo Family History Records Found Advance Directives No Advanced Directives Records FoundDocuments on File Type Date Recorded 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 Advance Directive(s) 08/27/2022 1:25 PM Additional Source Comments (unrecognized sect ion and content) No Status Records FoundNo Status Records FoundNo Status Records FoundNo Status Records FoundNo Status Records FoundNo Status Records FoundNo Status Records FoundNo Status Records Found INFORMATION SOURCE (unrecogn ized section and content) DATE CREATED AUTHOR 12/29/2017 [facility] DATE CREATED AUTHOR AUTHOR'S ORGANIZ ATION 12/30/2017 [facility] DATE CREATED AUTHOR AUTHOR'S ORGANIZ ATION 08/28/2022 [facility] DATE CREATED AUTHOR AUTHOR'S ORGANIZ ATION 12/12/2022 [facility] DATE CREATED AUTHOR AUTHOR'S ORGANIZ ATION 03/25/2023 [facility] DATE CREATED AUTHOR AUTHOR'S ORGANIZ ATION 06/02/2024 [facility] DATE CREATED AUTHOR AUTHOR'S ORGANIZ ATION 09/16/2024 [facility] DATE CREATED AUTHOR AUTHOR'S ORGANIZ ATION 12/21/2024 [facility] Source Comments (unrecognize d section and [...] Urinary incontinence, unspecified type Pipe Hopkins MD [address] [place] [address] Phone: tel:[phone] fax: [facility] [address] [place] [phone] Phone: tel: fax: Referral ID Status Reason Start Date Expiration Date Visits Requested Visits Authorized [id number] Pending Review Specialty Services Required 04/12/2024 04/12/2025 1 1 Reason Comments cognitive decline Care Teams (unrecognized sec tion and content) Bedspread Inspector Relationship Specialty Start Date End Date Pipe Hopkins MD [address] [place] [id number] PCP - General 05/19/11 [facility] [address] [address] Primary Staff Physician Cardiology 09/21/18 Bedspread Inspector Relationship Specialty Start Date End Date Pipe Hopkins MD [address] [place] [id number] PCP - General 05/19/11 [facility] [address] [place] [address] Primary Staff Physician Cardiology 09/21/18 Bedspread Inspector Relationship Specialty Start Date End Date Pipe Hopkins MD [address] [place] [address] PCP - General 05/19/11 [facility] [address] [place] [address] Primary Staff Physician Cardiology 09/21/18 FOR RECORDS [...] BE BASED ON THE PRIMARY CLINICAL RECORDS. [employer] provides no warranty or guarantee of the accuracy or completeness of information in this document.
[2025-02-22] MEDS: LEVOTHYROXINE SODIUM 100 MCG TABLET PO (06:03)
[2025-02-22] MEDS: CARBIDOPA/LEVODOPA 25 MG-100 MG TABLET 1 TAB PO ×3 (06:03→21:18)
[2025-02-22] MEDS: CEFAZOLIN SODIUM/DEXTROSE,ISO 1 GM/50 ML PREMIX IV ×3 (06:07→21:21)
[2025-02-22 07:06] LABS: Anion Gap 10.9; Blood Urea Nitrogen 51.0 mg/dL (7.0-18.0); Calcium 9.2 mg/dL (8.5-10.1); Carbon Dioxide 28.6 mmol/L (21.0-32.0); Chloride 104 mmol/L (98-107); Estimated GFR (African America 35 (>=60 mL/min/1.73m^2); Estimated GFR (Non-African Ame 29 (>=60 mL/min/1.73m^2); Glucose 108 mg/dL (74-106); Potassium 3.5 mmol/L (3.5-5.1); Sodium 140 mmol/L (136-145)
--- NOTE | 2025-02-22 07:57 | PC.NURSE ---
Dressing d/i to R foot. BILE LE discolored, juju. ppp palp paco, feet warm
--- NOTE | 2025-02-22 08:37 | SWNOTE1 ---
SW received a message from Case Management that pt is from [facility]. SW called over to [facility] in [place] and they did confirm pt is from there facility.
[2025-02-22] MEDS: LIOTHYRONINE SODIUM 5 MCG TABLET PO (08:42)
[2025-02-22] MEDS: SOLIFENACIN SUCCINATE 5 MG TABLET PO (08:42)
[2025-02-22] MEDS: ASPIRIN 81 MG TABLET.DR PO (08:42)
[2025-02-22] MEDS: AMLODIPINE BESYLATE 5 MG TABLET 2.5 MG PO (08:42)
[2025-02-22] MEDS: MEMANTINE HCL 28 MG CAP XR PO (08:42)
[2025-02-22] MEDS: HYDROCHLOROTHIAZIDE 25 MG TABLET 50 MG PO (08:43)
--- NOTE | 2025-02-22 09:15 | CM.NOTE ---
Rounds made with Dr. Ross, discussed with pt reason for admission and plan of care. Pt will be inpatient status for IV antibiotics.
--- NOTE | 2025-02-22 09:48 | SWNOTE1 ---
[facility] spoke to the nurse in pt's hallway. She voiced he is very active over to [place]. She stated he does not use a device to walk and he walks hunched over and has a shuffling gait. 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 She did voiced he can be stubborn at times as well. KIERA to let nursing know.
--- NOTE | 2025-02-22 09:57 | SWNOTE1 ---
SW also called and spoke with Krunal in physical therapy to updated on pt's baseline.
--- NOTE | 2025-02-22 11:42 | PM.HP ---
HPI H&P: HPI History of Present Illness Chief complaint: LEG CELLULITIS Narrative: Mr. Nelson is an 84-year-old gentleman who came in with progressive pain, swelling and redness involving his right leg. No cough or congestion. No fever or chills. No chest pain or palpitation. Opioid HPI Opioid Management Most Recent Pain and Opioid Data: Last Pain Scale 0 Today, 05:00 Last Pain Assessment Today, 01:00 Last ORT Total Score 0 Today, 00:44 Last ORT Risk Category Low Risk Today, 00:44 Review of Systems ROS Status of ROS 10 or more systems reviewed and unremarkable except as noted in history and below [facility] Medical History (Updated 02/22/25 @ 11:45 by Elida Ross MD) Infection of left foot ?L08.9 - Local infection of the skin and subcutaneous tissue, unspecified (ICD-10) Left leg cellulitis ?L03.116 - Cellulitis of left lower limb (ICD-10) Coronary atherosclerosis due to calcified coronary lesion of [place] artery ?I25.10 - Atherosclerotic heart disease of [place] coronary artery without angina pectoris (ICD-10) ?I25.84 - Coronary atherosclerosis due to calcified coronary lesion (ICD-10) Abnormality of gait and mobility ?R26.9 - Unspecified abnormalities of gait and mobility (ICD-10) Overactive bladder ?N32.81 - Overactive bladder (ICD-10) Syncope and collapse ?R55 - Syncope and collapse (ICD-10) Rhabdomyolysis ?M62.82 - Rhabdomyolysis (ICD-10) Hallucination ?R44.3 - Hallucinations, unspecified (ICD-10) Altered mental status ?R41.82 - Altered mental status, unspecified (ICD-10) Muscle weakness (generalized) ?M62.81 - Muscle weakness (generalized) (ICD-10) Hyperlipemia ?E78.5 - Hyperlipidemia, unspecified (ICD-10) Hx of angina pectoris ?Z86.79 - Personal history of other diseases of the circulatory system (ICD-10) Hx of migraine headaches ?Z86.69 - Personal history of other diseases of the nervous system and sense organs (ICD-10) Hx of pulmonary fibrosis ?Z87.09 - Personal history of other diseases of the respiratory system (ICD-10) History of intervertebral disc disorder ?Z87.39 - Personal history of other diseases of the musculoskeletal system and connective tissue (ICD-10) Hx of essential hypertension ?Z86.79 - Personal history of other diseases of the circulatory system (ICD-10) History of hypothyroidism ?Z86.39 - Personal history of other endocrine, nutritional and metabolic disease (ICD-10) Surgical History (Updated 02/22/25 @ 04:04 by Alison Moore) Hx of coronary artery bypass graft ?Z95.1 - Presence of aortocoronary bypass graft (ICD-10) Hx of hernia repair ?Z98.890 - Other specified postprocedural states (ICD-10) ?Z87.19 - Personal history of other diseases of the digestive system (ICD-10) Family History (Updated 02/22/25 @ 01:19 by Alison Moore) Brother Family history of myocardial infarction Family history of stroke Father Family history of myocardial infarction Other Family history of CHF (congestive heart failure) Social History (Updated 02/22/25 @ 01:17 by Alison Moore) Within the past year, how often did you have a drink containing alcohol: never Score interpretation: A score less than 4 is consistent with normal alcohol consumption. Smoking status: Former smoker Non-prescribed substance use: denies use Highest level of school completed/degree received: 12th grade, no diploma Are you now , , , , never or living with a partner: never Little interest or pleasure in doing things: not at all Feeling down, depressed, or hopeless: not at all Feel stressed/tense/nervous/anxious/difficulty sleeping: not at all Do you think of yourself as: straight/heterosexual Gender Identity: male Meds Home Medications and Allergies Home Medications ?Medication ?Instructions ?Recorded ?Confirmed ?Type acetaminophen 500 mg tablet 500 mg PO BID 02/05/24 02/22/25 History aspirin 81 mg tablet,delayed 81 mg PO DAILY 02/05/24 02/21/25 History release levothyroxine 100 mcg tablet 100 mcg PO DAILY 02/05/24 02/21/25 History liothyronine 5 mcg tablet 5 mcg PO DAILY 02/05/24 02/21/25 History B-complex with vitamin C 1 cap PO DAILY 02/21/25 02/21/25 History acetaminophen 500 mg tablet 1,000 mg PO Q6H PRN fever or pain 02/21/25 02/21/25 History (Tylenol Extra Strength) amlodipine 2.5 mg tablet 2.5 mg PO DAILY 02/21/25 02/21/25 History bisacodyl 10 mg rectal suppository 10 mg AR DAILY PRN constipation 02/21/25 02/21/25 History carbidopa 25 mg-levodopa 100 mg 1 tab PO TID 02/21/25 02/21/25 History tablet cholecalciferol (vitamin D3) 50 2,000 unit PO DAILY 02/21/25 02/21/25 History mcg (2,000 unit) capsule donepezil 10 mg tablet 10 mg PO DAILY 02/21/25 02/22/25 History folic acid 400 mcg tablet 400 mcg PO DAILY 02/21/25 02/21/25 History hydrochlorothiazide 50 mg tablet 50 mg PO DAILY 02/21/25 02/21/25 History memantine 10 mg tablet 10 mg PO BID 02/21/25 02/21/25 History multivitamin 1 tab PO DAILY 02/21/25 02/21/25 History polyvinyl alcohol 2 drp ophthalmic (eye) .Q2 PRN dry 02/21/25 02/21/25 History eyes sertraline 25 mg tablet 25 mg PO BEDTIME 02/21/25 02/21/25 History tolterodine 1 mg tablet 1 mg PO Q12H 02/21/25 02/21/25 History donepezil 5 mg tablet 5 mg PO DAILY 02/22/25 02/22/25 History Allergies Allergy/AdvReac Type Severity Reaction Status Date / Time atorvastatin (From Lipitor) Allergy Severe Muscle Pain Verified 02/21/25 18:19 Exam Narrative Exam Narrative: [pt is awake and alert. oriented to place, time and person HEENT: [place] conjunctiva and NL buccal mucosa Neck: Supple, no tenderness Endocrine: No Thyromegaly. Vascular: No JVD or carotid bruit. Lymphatic: No cervical lymphadenopathy. Chest: CTA no DTP. Heart RRR, no extra sound or murmur. Abd: Soft, no tenderness, no rebound and no rigidity. Increase abd girth therefore clinically I could not exclude the possibility of intra abd mass or organomegaly. LE: No cyanosis or clubbing, erythema, induration and tenderness involving the medial, anterior and lateral aspect of the right dixon. From the mid dixon down to the ankle. Erythema, induration and tenderness involving the dorsal aspect of the foot. Superficial ulceration involving his 4th and 5th toe. Palpable dorsalis pedis pulse. Neuro: Mild cognitive loss. Patient is able to provide information but not details. Some confabulation []] Constitutional Vital Signs, click to edit/add: Last Vital Signs Temp 97.9 F 02/22/25 07:52 Pulse 55 L 02/22/25 07:52 Resp 18 02/22/25 07:52 BP 120/60 02/22/25 07:52 Pulse Ox 94 L 02/22/25 07:52 O2 Del Method Room Air 02/22/25 07:52 Results Labs Labs: Short CBC 02/21/25 Range/Units 19:35 WBC 7.2 (4.0-11.0) 10^3/uL Hgb 13.5 L (14.0-18.0) g/dL Hct 42.6 (42.0-54.0) % Plt Count 189 (150-450) 10^3/uL BMP 02/21/25 02/22/25 19:35 06:30 Sodium 141 140 Potassium 3.7 3.5 Chloride 106 104 Carbon Dioxide 27.1 28.6 BUN 60.0 H 51.0 H Creatinine 2.47 H 2.16 H Glucose 106 108 H Calcium 9.1 9.2 Liver Function 02/21/25 Range/Units 19:35 Total Bilirubin 0.5 (0.2-1.0) mg/dL AST 17 (15-37) U/L ALT 12 L (16-63) U/L Alkaline Phosphatase 107 (46-116) U/L Albumin 3.8 (3.4-5.0) g/dL Assessment and Plan Assessment and Plan (1) Cellulitis of right leg: (2) CKD (chronic kidney disease), stage IV: (3) Hypertension: (4) Dementia: (5) Bradycardia: Plan Right leg cellulitis from the mid dixon down to the toes Ultrasound is negative for DVT. Palpable dorsalis pedis pulse; possibility of significant peripheral vascular disease less likely I started patient on intravenous Ancef. Monitor recovery over the next 48 to 96 hours. CKD stage IV, near baseline. Keep patient in euvolemic state. Avoid nephrotoxic drugs. Monitor BUN and creatinine. Dementia with cognitive loss, Parkinson disease Unknown type of dementia. Suspect vascular dementia. Could not exclude other possible type of dementia such as Lewy body given his Parkinson disease and parkinsonism. To be addressed by PCP and or neurology in the outpatient setting. Not sure if patient had comprehensive neurological investigation for his dementia Bradycardia. Sinus Suspect related to Aricept side effect. Hold Aricept. Blood pressure is stable. Consider resumption of Aricept at lower dose Check TSH rule out undertreated hypothyroidism as a cause of his bradycardia Hypothyroidism Continue Synthroid, check TSH to assess adequacy of treatment. Hypertension Fair control. Continue amlodipine Chronic medical conditions not listed above, incidental findings seen on labs and imaging. These would need to be addressed. Could be addressed when time and condition are appropriate. Could be addressed in the outpatient setting by PCP collaboration with other needed outpatient providers.
[2025-02-22] MEDS: MULTIVITAMIN TABLET 1 TAB PO (13:07)
--- NOTE | 2025-02-22 13:20 | SWNOTE1 ---
KIERA called [facility] and requested to speak with pt's nurse, who is Kimberly. Kimberly was not available at this time. KIERA did ask if they knew if pt had wound care being done at NH. They could not see any wound care orders in his chart. They are going to take KIERA phone number down to Kimberly and have Kimberly call KIERA back.
--- NOTE | 2025-02-22 13:32 | SWNOTE1 ---
KIERA did receive call back from Kimberly the nurse at [facility]. They are not currently doing any specific wound care. She voiced he is pretty independent and he usually kicks them out of his room when he gets ready to bathe himself. They do not really get to see his skin too often. They have been strongly encouraging him to let them assist so they can see if he has skin breakdown or wounds. She stated he does pee on himself and they are aware. She stated he has several deepak of shoes at [facility] and they wash them frequently. She stated if something does start bothering him on his leg or foot, he does let the nurse know. KIERA did advise Kimberly that we may have HH services come in and there may be wound care, she stated they can do the wound care there and he will likely refuse any HH services at this time. KIERA to keep Kimberly up to date in regards to pt's care. KIERA updated case management.
--- NOTE | 2025-02-22 14:55 | SWNOTE1 ---
Important Message from [employer] reviewed and discussed with patient. Pt. verbalized understanding and signed the form. Original given to patient and copy placed in patient?s chart.
--- NOTE | 2025-02-22 14:55 | SWNOTE1 ---
SW met with pt to discuss dc needs. Pt lives at [facility]. Pt spoke with SW for nearly 20 minutes and spoke about [facility] and the good and the bad at [facility]. He voiced he tries to help other residents there and he also attends meetings at [facility] to help better the care of the residents. Pt did know he was at [facility] and that [facility] was recently sold to [facility]. Pt plans on returning to [facility] at discharge and voiced he has been there for a year and half. Pt has no concerns about discharge at this time. SW to follow as needed.
[2025-02-22] MEDS: SERTRALINE HCL 50 MG TABLET 25 MG PO (21:18)
[2025-02-23 04:00] VITALS: BP 153/71; PULSE 44; TEMP 36.4; O2SAT 94
[2025-02-23] MEDS: CEFAZOLIN SODIUM/DEXTROSE,ISO 1 GM/50 ML PREMIX IV ×3 (05:41→21:17)
[2025-02-23] MEDS: CARBIDOPA/LEVODOPA 25 MG-100 MG TABLET 1 TAB PO ×3 (05:41→21:15)
[2025-02-23] MEDS: LEVOTHYROXINE SODIUM 100 MCG TABLET PO (05:41)
[2025-02-23 08:00] VITALS: BP 151/68; PULSE 65; TEMP 36.2; O2SAT 94
--- NOTE | 2025-02-23 08:40 | CM.NOTE ---
Rounds made with Dr. Ross, leg swelling and redness showing improvement. No discharge today, potential discharge tomorrow and plan is to return to [facility]
[2025-02-23] MEDS: MEMANTINE HCL 28 MG CAP XR PO (08:41)
[2025-02-23] MEDS: HYDROCHLOROTHIAZIDE 25 MG TABLET 50 MG PO (08:41)
[2025-02-23] MEDS: SOLIFENACIN SUCCINATE 5 MG TABLET PO (08:41)
[2025-02-23] MEDS: AMLODIPINE BESYLATE 5 MG TABLET 2.5 MG PO (08:42)
[2025-02-23] MEDS: LIOTHYRONINE SODIUM 5 MCG TABLET PO (08:42)
[2025-02-23] MEDS: ASPIRIN 81 MG TABLET.DR PO (08:42)
[2025-02-23] MEDS: MULTIVITAMIN TABLET 1 TAB PO (08:42)
--- NOTE | 2025-02-23 09:57 | P.PN_ITS ---
Progress Note: Subjective Subjective Interval history: Patient is feeling better and requesting to be discharged home. Less pain and discomfort in the foot. Exam Narrative Exam Narrative: [pt is awake and alert. oriented to place, time and person HEENT: [place] conjunctiva and NL buccal mucosa Neck: Supple, no tenderness Endocrine: No Thyromegaly. Vascular: No JVD or carotid bruit. Lymphatic: No cervical lymphadenopathy. Chest: CTA no DTP. Heart RRR, no extra sound or murmur. Abd: Soft, no tenderness, no rebound and no rigidity. Increase abd girth therefore clinically I could not exclude the possibility of intra abd mass or organomegaly. LE: No cyanosis or clubbing, noticeable improvement in the resolution of the erythema, induration and tenderness involving the medial, anterior and lateral aspect of the right dixon. From the mid dixon down to the ankle. Noticeable improvement and resolution of erythema, induration and tenderness involving the dorsal aspect of the foot. Superficial ulceration involving his 4th and 5th toe. Palpable dorsalis pedis pulse. Neuro: Mild cognitive loss. Patient is able to provide information but not details. Some confabulation []] Constitutional Vital Signs, click to edit/add: Last Vital Signs Temp 97.2 F L 02/23/25 08:00 Pulse 65 02/23/25 08:00 Resp 18 02/23/25 08:00 BP 151/68 H 02/23/25 08:00 Pulse Ox 94 L 02/23/25 08:00 O2 Del Method Room Air 02/23/25 08:00 Progress Note: A&P Assessment and Plan (1) Cellulitis of right leg: (2) CKD (chronic kidney disease), stage IV: (3) Hypertension: (4) Dementia: (5) Bradycardia: Plan Right leg cellulitis from the mid dixon down to the toes Noticeable improvement of the erythema, tenderness and induration since yesterday Ultrasound is negative for DVT. Palpable dorsalis pedis pulse; possibility of significant peripheral vascular disease less likely Continue patient on intravenous Ancef. Monitor recovery over the next 48 CKD stage IV, near baseline. Keep patient in euvolemic state. Avoid nephrotoxic drugs. Monitor BUN and creatinine. Dementia with cognitive loss, Parkinson disease Unknown type of dementia. Suspect vascular dementia. Could not exclude other possible type of dementia such as Lewy body given his Parkinson disease and parkinsonism. To be addressed by PCP and or neurology in the outpatient setting. Not sure if patient had comprehensive neurological investigation for his dementia Bradycardia. Sinus Suspect related to Aricept side effect. Hold Aricept. Blood pressure is stable. Consider resumption of Aricept at lower dose Check TSH rule out undertreated hypothyroidism as a cause of his bradycardia. TSH is slightly elevated. Patient is on levothyroxine already. Hypothyroidism Continue Synthroid. Hypertension Fair control. Continue amlodipine Chronic medical conditions not listed above, incidental findings seen on labs and imaging. These would need to be addressed. Could be addressed when time and condition are appropriate. Could be addressed in the outpatient setting by PCP collaboration with other needed outpatient providers.
[2025-02-23] MEDS: TORSEMIDE 20 MG TABLET PO (10:40)
[2025-02-23] MEDS: SENNOSIDES/DOCUSATE SODIUM 1 TAB TABLET PO (10:40)
[2025-02-23 11:37] VITALS: BP 144/74; PULSE 57; TEMP 36.4; O2SAT 94
--- NOTE | 2025-02-23 11:48 | SWNOTE1 ---
KIERA attempted to call pt's nurse, Kimberly, at [facility]. No answer. SW to call back later today. SW to see if they have a walker at [facility] for pt and if pt is able to do outpt therapy if order is given.
--- NOTE | 2025-02-23 11:56 | PC.NURSE ---
Patient gets argumentative with assistance with daily ADL's such as putting on a clean brief after he had an accident. He is very unsteady and is increased risk for falling over getting his foot stuck in the pull up then gets angry when we try to help.
--- NOTE | 2025-02-23 13:40 | SWNOTE1 ---
SW attempted to call nurse at [facility] again to check on walker and outpt PT order, no answer and not able to leave a message.
[2025-02-23 15:42] VITALS: BP 135/45; PULSE 64; TEMP 36.3; O2SAT 94
--- NOTE | 2025-02-23 15:54 | SWNOTE1 ---
KIERA spoke to nurse, Kimberly at [facility]. She voiced they can get therapy in with an outpt order. They will look for walker, if not he will need a script for one.
[2025-02-23 19:57] VITALS: BP 154/70; PULSE 56; TEMP 36.4; O2SAT 100
[2025-02-23] MEDS: DOCUSATE SODIUM 100 MG CAPSULE PO (21:16)
[2025-02-23] MEDS: SERTRALINE HCL 50 MG TABLET 25 MG PO (21:16)
[2025-02-23] MEDS: DONEPEZIL HCL 5 MG TABLET PO (21:22)
[2025-02-24 03:45] VITALS: BP 123/65; PULSE 59; TEMP 36.6; O2SAT 92
[2025-02-24] MEDS: LEVOTHYROXINE SODIUM 100 MCG TABLET PO (05:39)
[2025-02-24] MEDS: CARBIDOPA/LEVODOPA 25 MG-100 MG TABLET 1 TAB PO ×2 (05:39→13:12)
[2025-02-24] MEDS: CEFAZOLIN SODIUM/DEXTROSE,ISO 1 GM/50 ML PREMIX IV ×2 (05:39→13:13)
--- NOTE | 2025-02-24 09:00 | CM.NOTE ---
Rounds made with Dr. Ross, pt will discharge back to [facility] today with outpatient order for PT. Pt verbalizes understanding. Pt will have f/u scheduled with Dr. Hopkins.
[2025-02-24 09:38] VITALS: BP 106/56
[2025-02-24] MEDS: MULTIVITAMIN TABLET 1 TAB PO (09:40)
[2025-02-24] MEDS: TORSEMIDE 20 MG TABLET PO (09:40)
[2025-02-24] MEDS: MEMANTINE HCL 28 MG CAP XR PO (09:40)
[2025-02-24] MEDS: SOLIFENACIN SUCCINATE 5 MG TABLET PO (09:40)
[2025-02-24] MEDS: ASPIRIN 81 MG TABLET.DR PO (09:41)
[2025-02-24] MEDS: LIOTHYRONINE SODIUM 5 MCG TABLET PO (09:41)
--- NOTE | 2025-02-24 10:10 | SWNOTE1 ---
KIERA called and spoke with nurse at [place] and advised that pt is returning today. SW to send dc orders once they are complete. KIERA let her know we will be sending him back with outpatient PT orders as well. [place] does not have transportation available, SW to set up trips.
--- NOTE | 2025-02-24 13:46 | PM.DS1 ---
DS: Providers Provider Date of admission: 02/21/25 23:55 Primary care physician: Marcelo Hopkins MD Consults: 02/22/25 Occupational Therapy Eval and Treat Routine Reason for consultation: weakness Physical Therapy Eval and Treat Routine Reason for consultation: weakness DS: Diagnosis Discharge Diagnosis (1) Cellulitis of right leg: (2) CKD (chronic kidney disease), stage IV: (3) Hypertension: (4) Dementia: (5) Bradycardia: Plan As listed above and others that are not listed DS: Summary Hospital Course Hospital Course: Mr. Nelson is an 84-year-old gentleman who came in with pain, swelling and redness involving his right leg and foot. Right leg cellulitis from the mid dixon down to the toes Noticeable and improvement of the erythema, tenderness and induration since admission Ultrasound is negative for DVT. Palpable dorsalis pedis pulse; possibility of significant peripheral vascular disease less likely Continue patient on intravenous Ancef. Discharging patient on oral cephalexin, dose adjusted for kidney CKD stage IV, near baseline. Keep patient in euvolemic state. Avoid nephrotoxic drugs. Monitored BUN and creatinine. Patient was on 50 mg of hydrochlorothiazide. I switched this to torsemide 80 mg daily Dementia with cognitive loss, Parkinson disease Unknown type of dementia. Suspect vascular dementia. Could not exclude other possible type of dementia such as Lewy body given his Parkinson disease and parkinsonism. To be addressed by PCP and or neurology in the outpatient setting. Not sure if patient had comprehensive neurological investigation for his dementia Bradycardia. Sinus Suspect related to Aricept side effect. Hold Aricept. Blood pressure is stable. I resumed Aricept at 5 mg daily only. His heart rate stays above 55. Check TSH rule out undertreated hypothyroidism as a cause of his bradycardia. TSH is slightly elevated. Patient is on levothyroxine already. Hypothyroidism Continue Synthroid. Hypertension Fair control. Continue amlodipine Chronic medical conditions not listed above, incidental findings seen on labs and imaging. These would need to be addressed. Could be addressed when time and condition are appropriate. Could be addressed in the outpatient setting by PCP collaboration with other needed outpatient providers. Patient has multiple complex medical issues as listed above and others that are not listed. All appear to be stable. I do not have any clear or strong clinical justification to extend inpatient hospitalization. Patient however will require close and frequent monitoring as well as additional work-up, investigation and therapeutic intervention that could take place from this point on post discharge. That is to prevent relapse, decompensation, rehospitalization and other medical implications. I instructed patient to ask her primary care doctor to obtain [facility] record entirely to address abnormalities seen on labs and imaging that I have and have not addressed during this hospitalization, follow-up on pending blood work, imaging and pathology is if available and to follow-up on needed medical care in the outpatient setting. Time Spent with Patient Time attestation: Total time spent providing and/or coordinating discharge services: Exam Narrative Exam Narrative: [pt is awake and alert. oriented to place, time and person HEENT: [place] conjunctiva and NL buccal mucosa Neck: Supple, no tenderness Endocrine: No Thyromegaly. Vascular: No JVD or carotid bruit. Lymphatic: No cervical lymphadenopathy. Chest: CTA no DTP. Heart RRR, no extra sound or murmur. Abd: Soft, no tenderness, no rebound and no rigidity. Increase abd girth therefore clinically I could not exclude the possibility of intra abd mass or organomegaly. LE: No cyanosis or clubbing, noticeable and significant improvement in the resolution of the erythema, induration and tenderness involving the medial, anterior and lateral aspect of the right dixon. From the mid dixon down to the ankle. Noticeable and improvement and resolution of erythema, induration and tenderness involving the dorsal aspect of the foot. Superficial ulceration involving his 4th and 5th toe. Palpable dorsalis pedis pulse. Neuro: Mild cognitive loss. Patient is able to provide information but not details. Some confabulation []] Constitutional Vital Signs, click to edit/add: Last Vital Signs Temp 97.8 F 02/24/25 03:45 Pulse 59 L 02/24/25 03:45 Resp 18 02/24/25 08:00 BP 106/56 02/24/25 09:38 Pulse Ox 92 L 02/24/25 03:45 O2 Del Method Room Air 02/24/25 03:45 DS: Data Data Completed and Pending Labs on day of discharge: Preliminary micro results at discharge 02/21/25 22:43 Blood Culture Result 2 - Preliminary Blood - Left Forearm NO GROWTH AT 36-48 HOURS. FINAL TO FOLLOW. 02/21/25 22:38 Blood Culture Result 1 - Preliminary Blood - Right Antecubital NO GROWTH AT 36-48 HOURS. FINAL TO FOLLOW. Discharge Plan Discharge Disposition: Home, Self-Care Condition: Fair Discharge Medications: New sennosides-docusate sodium [Senna Plus] 8.6-50 mg Tablet 1 tab PO QD Qty: 30 1RF torsemide 10 mg tablet 10 mg PO QAM Qty: 60 2RF cephalexin 500 mg tablet 500 mg PO BID Qty: 20 0RF potassium chloride 10 mEq tablet extended release 10 meq PO DAILY Qty: 30 0RF Continued amlodipine 2.5 mg tablet 2.5 mg PO DAILY carbidopa-levodopa 25-100 mg tablet 1 tab PO TID folic acid 400 mcg tablet 400 mcg PO DAILY memantine 10 mg tablet 10 mg PO BID multivitamin Tablet 1 tab PO DAILY sertraline 25 mg tablet 25 mg PO BEDTIME tolterodine 1 mg tablet 1 mg PO Q12H B-complex with vitamin C Capsule 1 cap PO DAILY cholecalciferol (vitamin D3) 50 mcg (2,000 unit) capsule 2,000 unit PO DAILY polyvinyl alcohol [Artificial Tears Plus] 2 drp ophthalmic (eye) .Q2 PRN (Reason: dry eyes) bisacodyl 10 mg suppository 10 mg CO DAILY PRN (Reason: constipation) donepezil 5 mg tablet 5 mg PO DAILY aspirin 81 mg tablet,delayed release (DR/EC) 81 mg PO DAILY levothyroxine 100 mcg tablet 100 mcg PO DAILY liothyronine 5 mcg tablet 5 mcg PO DAILY Changed acetaminophen [Tylenol Extra Strength] 500 mg tablet 500 mg PO Q6H PRN (Reason: fever or pain) Qty: 0 0RF Discontinued donepezil 10 mg tablet 10 mg PO DAILY hydrochlorothiazide 50 mg tablet 50 mg PO DAILY acetaminophen 500 mg tablet 500 mg PO BID Print Language: Peruvian Activity Restrictions/Additional Instructions: I may not have addressed or treated all of your medical illnesses or the abnormal blood work or imaging studies during this hospitalization. Please ask your primary care provider to obtain [facility] records entirely to follow up on all of the abnormal physical, laboratory, and imaging findings that I have not addressed. Please return back to the emergency room or seek medical attention if your symptoms worsen or return. Discharging you from [facility] does not mean that your medical care ends here and now. You may still need additional monitoring, work up, investigation, and treatment plan to be handled from this point on by out patient providers including your primary care provider and specialists. For any medication question, please contact your retail pharmacist or your primary care provider. Thank you. [employer] Instructions: Discharge to [place] with outpt PT order Forms: Portal Instructions Follow Up Appointments: Dr.Hoy Casiano. Mar 02, 2025 @1:15 #[phone]
--- NOTE | 2025-02-24 14:15 | SWNOTE1 ---
KIERA attempted to fax dc information to [facility], but the fax did not go through. KIERA called over to [facility] and informed nurse that SW has attempted to fax but no success. KIERA informed them that KIERA has put together packet with all updates from pt's stay and his dc med rec and outpt PT order is included in packet. She voiced understanding and appreciation.
--- NOTE | 2025-02-28 13:57 | CM.DCFOLLOWU ---
From [facility]
== END 2025-02-24 14:13 | disposition home or self-care (01) | DRG 603 ==
LOC: ER 22:03 → MS 23:57
PROVIDERS: Emergency Medicine; Admitting Provider Internal Medicine; Emergency Provider Emergency Medicine; PCP Family Medicine; Visit Provider Internal Medicine
DX: L03.115 Cellulitis of right lower limb (principal); N18.4 Chronic kidney disease, stage 4 (severe); E03.9 Hypothyroidism, unspecified; Z79.82 Long term (current) use of aspirin; Z79.899 Other long term (current) drug therapy; I25.10 Atherosclerotic heart disease of native coronary artery without angina pectoris; I25.84 Coronary atherosclerosis due to calcified coronary lesion; Z95.1 Presence of aortocoronary bypass graft; E78.5 Hyperlipidemia, unspecified; Z87.891 Personal history of nicotine dependence; I12.9 Hypertensive chronic kidney disease with stage 1 through stage 4 chronic kidney disease, or unspecified chronic kidney disease; R00.1 Bradycardia, unspecified; G20.A1 Parkinson's disease without dyskinesia, without mention of fluctuations; F02.80 Dementia in other diseases classified elsewhere, unspecified severity, without behavioral disturbance, psychotic disturbance, mood disturbance, and anxiety; Z79.890 Hormone replacement therapy; F01.50 Vascular dementia, unspecified severity, without behavioral disturbance, psychotic disturbance, mood disturbance, and anxiety; T44.1X5A Adverse effect of other parasympathomimetics [cholinergics], initial encounter
CPT/HCPCS: 36415; 73590; 73630; 80048; 80053; 83605; 85025; 85652; 86140; 87040; 93005; 93971; 96365; 97110; 97162; 97165; 97530; 97535; 99285; J0690; J1650

== ENCOUNTER 2025-05-25 13:01 | Outpatient (OUT) | payer OTHER, MEDICAID, SELFPAY ==
--- NOTE | 2025-05-25 13:00 | CA_ITS ---
Patient Name: LEANNA NGUYỄN MR#: [id number] : 1940 Exam Date: 05/25/2025 Ordering Doctor: DR AYSE LI M.D. ECHOCARDIOGRAM REPORT PROCEDURE: CA ECHO DOPPLER COMPLETE INDICATIONS: Congestive heart failure, CABG COMPARISON: None. DESCRIPTION: COMPLETE ECHOCARDIOGRAM Real-time transthoracic echocardiography with 2D, M-mode, spectral and color flow Doppler performed. QUALITY: Technical quality was good. LEFT VENTRICLE: Normal chamber size. Thickened septal wall. Estimated left ventricular ejection fraction is 55-60%. LV EF: Normal left ventricular ejection fraction, (>55%). DIASTOLIC: Normal diastolic function. ATRIAL SEPTUM: LEFT ATRIUM: Normal chamber size. RIGHT ATRIUM: Mild dilatation. RIGHT VENTRICLE: Normal chamber size. Normal right ventricular systolic function. TRICUSPID VALVE: Normal mobility and thickness. No stenosis with trivial regurgitation. No evidence of pulmonary hypertension. RVSP 31 mmHg MITRAL VALVE: Normal mobility and thickness. No evidence of mitral valve stenosis. There is no mitral annular calcification. Trivial mitral regurgitation. AORTIC VALVE: Normal trileaflet appearance. No visible sclerosis. Normal leaflet mobility. No evidence of aortic valve stenosis. Trivial aortic regurgitation. AORTIC ROOT: Normal diameter and appearance, measuring 3.3 cm. Ascending aorta is upper normal in size (3.7 cm). PULMONIC VALVE: Normal thickness and mobility. No stenosis. No regurgitation. PERICARDIUM: No evidence of pericardial effusion. IVC: Collapses with inspirations. IVC is normal in size. PLEURA: CONCLUSION: 1. Normal ventricular size and systolic function. Estimated LVEF is 55 to 60%. 2. Normal diastolic function. 3. No significant valvular dysfunction. 4. Normal right-sided pressures. Adult Echocardiography Procedure Report Left Ventricle LVEDD (3.7 - 5.6 cm): 5.03 cm LVESD (2.2 - 4.0 cm): 3.18 cm LVIVS thickness (0.6 - 1.2 cm): 1.15 cm LVPW thickness (0.5 - 1.0 cm): 1.05 cm e': 0.11 m/s E - e': 4.85 LVOT Max Gradient: 2.63 mm[Hg] LVOT Area (cm2): 0.81 m/s Peak Velocity (LVOT): 0.81 m/s Mean Velocity (LVOT): 0.58 m/s LVOT Diameter 2.24 cm Left Ventricular Ejection Fraction: 55-60 % Left Atrium LA Volume Index (2D A2C): 33.21 ml/m2 Left Atrium Systolic Dimension: 3.02 cm Mitral Valve MV E to A Ratio: 0.70 Mitral Valve A-Wave Peak Velocity: 0.75 m/s Mitral Valve E-Wave Peak Velocity: 0.52 m/s Right Ventricle Aorta AO Root Diam: 3.33 cm Ascending Ao Diam: 3.60 cm, 3.62 cm Aortic Valve AoV Area (Peak Thien): 2.64 cm2, 2.64 cm2 AoV Area (VTI): 2.35 cm2, 2.35 cm2 Peak Velocity(Antegrade Flow): 1.22 m/s Peak Gradient(Antegrade Flow): 5.93 mm[Hg] Mean Velocity(Antegrade Flow): 0.85 m/s Mean Gradient(Antegrade Flow): 3.36 mm[Hg] Velocity Time Integral: 28.29 cm Tricuspid Valve Peak Velocity (Regurgitant Flow): 2.64 m/s Pulmonic Valve Mean Gradient: 3.14 mm[Hg] Mean Velocity: 0.81 m/s Peak Velocity: 1.35 m/s Peak Gradient: 7.30 mm[Hg] Right Atrium Right Atrium Systolic Pressure: 58.14 ml, 58.14 ml Dictated by: Ayse Li M.D. on 05/26/2025 at 17:18 Approved by: Ayse Li M.D. on 05/26/2025 at 17:21
--- OUTSIDE RECORDS SUMMARY | 2025-05-25 13:13 | XMS_ITS | CCD ---
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 Name Role Phone PHYSICIAN, DEFAULT Unavailable Unavailable PHYSICIAN, DEFAULT Unavailable Unavailable EVELIA, SUNJUK Unavailable Unavailable EVELIA, SUNJUK Unavailable Unavailable EVELIA, SUNJUK Unavailable Unavailable Pipe [phone] UNKNOWN Unavailable Unavailable Pipe Jeffers MD Primary Care Provider [phone] [place] Unavailable [phone] PIPE JEFFERS Primary Care Unavailable JODI BANERJEE Referring Unavailab antoine Farrell, DR BETANCUR Consulting Unavailable SHAIKH RODRIGUEZ H Admitting Unavailable SHAIKH Светлана RODRIGUEZ Attending Unavailable HODiana ., DR BETANCUR Primary Care Unavailable PAY ., DR HUDSON Consulting Unavailable MICHELLE BOO Consulting Unavailable STEPHEN ROUSE Consulting Unavailable ABIDA TOTH Consulting Unavailable KOKO ROMANO Consulting Unavailable JENNIFER, KAMARA H Consulting Unavailable BERNADETTE BEDOLLA Consulting [...] Unavailable ZIEBER, DR LEATHA Workman Consulting Unavailable HOY ., [...] HOY ., DR BETANCUR Admitting Unavailable Pipe Jeffers MD Primary Care Provider [phone] [place] Unavailable JODI BANERJEE Attending Unavailab PIPE Griffith Primary Care Unavailable JODI BANERJEE Attending Unavailab PIPE Griffith Primary Care Unavailable AYSE BARNES Attending Unavailable AYSE BARNES Attending Unavailable Unavailable Primary Care Provider Unavailabl e Unavailable Primary Care Provider Unavailabl e PIPE JEFFERS Referring Unavailable Pipe Jeffers MD Primary Care Provider [phone] Esteban Neely DO Attending Provider PIPE JEFFERS Primary Care Unavailable MARCIA, ROXANNE Consulting Unavailable NIC, JUAN RAMON Admitting Unavailable JUAN RAMON LUCERO Attending Unavailable ELIO, ZHENG S Consulting Unavailable IMAM, SAUL SHAFFER Consulting Unavailabl e PIPE JEFFERS Primary Care Unavailable ELIO, ZHENG S Admitting Unavailable ANA DOWNING Consulting Unavailable MARCIA, ROXANNE Attending Unavailable CARLOS MILLER Consulting Unavailable IMAM, SAUL SHAFFER Consulting Unavailabl e JULIANNA HELLER Consulting Unavailable ALEX AZAR Consulting Unavailable Pipe Jeffers MD Primary Care Provider [phone] LYDIA BURRIS Attending Unavailable LYDIA BURRIS Attending Unavailable LYDIA BURRIS Attending Unavailable NON STAFF Primary Care Provider Unavailabl e Bunting, Esteban R Admitting Unavailable Bunting, Esteban R Attending Unavailable NON STAFF Primary Care Unavailable Bunting, Esteban R Attending Unavailable Bunting, Esteban R Admitting Unavailable Allergies Allergy ClassificationReported Allergen(s)Allergy TypeDate of OnsetReaction(s) Facility (2 sources)atorvastatin; Translations: [Lipitor][facility] (13 sources)atorvastatin; Translations: [ATORVASTATIN CALCIUM]Drug Allergy 16-48-0949Hmiyb, [facility] (5 sources)atorvastatin; Translations: [ATORVASTATIN]Drug Qxinywm48-46-3940 Hives, Other (See Comments), Rash, [facility] Medications Current Medications MedicationDrug Class(es)DatesSig (Normalized)Sig (Original)acetaminophen 325 mg oral tablet (17 sources)Start: 90-98-3931phfh 2 tablets by mouth every six hours as needed for painacetaminophen (TYLENOL) 325 MG tablet Take 2 tablets by mouth every 6 hours as needed for Pain 03/16/2025 ActiveStart: 39-02-9384vwam 4000 mg by mouth every twenty-four hours as fkonzm233 mg, Oral, EVERY 6 HOURS PRN, Starting on Thu02/28/25 at 1544, Until Discontinued, Pain Mild (1-3) OR per patient request for pain score (4-10), Fever, For temp greater than 100.4 F (38 C), Maximum dose of acetaminophen is 4000 mg from all sources in 24 hours.Start: 02-25-2025 acetaminophen (TYLENOL) tablet 650 mgtake 2 tablets by mouth in the morning acetaminophen (Tylenol) 500 MG tablet Take 2 tablets by mouth in the morning and 2 tablets in the evening. Activeacetaminophen 500 mg capsule Take by mouth every 4 (four) hours as needed for pain. ActiveACETAMINOPHEN (TYLENOL 8 HOUR ORAL) Take by mouth as needed. 0 ActiveComment on above:Take by mouth as needed. amLODIPine 5 mg oral tablet (16 sources)Dihydropyridine Calcium Channel BlockerStart: 19-29-9762lfwh 1 tablet by mouth once dailyamLODIPine (NORVASC) 5 MG tablet Take 1 tablet by mouth daily 30 tablet 3 03/17/2025 ActiveStart: 41-92-5800ynyf 5 mg by mouth once daily5 mg, Oral, DAILY, First dose (after last modification) on Thu03/15/25 at 0900, Until DiscontinuedStart: 05-30-2024 End: 57-75-5622gyip 2.5 mg by mouth once daily2.5 mg, Oral, DAILY, First dose on Thu03/12/25 at 1000, Until DiscontinuedB Complex Vitamins (vitamin B complex) tablet (8 sources)Start: 05-19-2023 Complex Vitamins (vitamin B complex) tablet 05/19/2023 Activeb complex vitamins capsule (3 sources)take 1 capsule by mouth in the morningb complex vitamins capsule Take 1 capsule by mouth in the morning. Activeb complex-folic acid tablet (8 sources)take 1 tablet by mouth in the morningb complex-folic acid tablet Take 1 tablet by mouth in the morning. Activebisacodyl 10 mg rectal suppository (1 source)Stimulant LaxativeStart: 48-62-0594lluw 10 mg rectal route once daily as mg, Rectal, DAILY PRN, Starting on Thu02/28/25 at 1544, Until Discontinued, Constipation, TO BE GIVEN AFTER THERAPY COMPLETED FOR THE DAY carbidopa 25 mg / levodopa 100 mg oral tablet (10 sources)Aromatic Amino Acid Decarboxylation Inhibitor, Aromatic Amino Acid Start: 42-05-4764mswb 1 tablet by mouth three times dailycarbidopa-levodopa (SINEMET) 25-100 MG per tablet Take 1 tablet by mouth 3 times daily 03/16/2025 ActiveStart: 48-99-7696xogr 1 tablet by mouth three times daily1 tablet, Oral, 3 TIMES DAILY, First dose (after last modification) on Thu02/28/25 at 2100, Until DiscontinuedStart: 60-29-0282gocr 1 tablet by mouth in the morning, then take 1 tablet by mouth in the evening, then take 1 tablet by mouth at bedtime carbidopa-levodopa (Sinemet) 25-100 MG tablet Take 1 tablet by mouth in the morning and 1 tablet inthe evening and 1 tablet before bedtime. 09/06/2024 Active End: 79-71-7961fnce 1 tablet by mouth three times dailycarbidopa-levodopa (SINEMET) 10-100 MG per tablet Take 1 tablet by mouth 3 times daily 03/16/2025 Discontinued (Stop Taking at Discharge)cefdinir 300 mg oral capsule (8 sources)Cephalosporin AntibacterialStart: 02-38-3291cfne 2 capsules by mouth in the morningcefdinir (Omnicef) 300 MG capsule Take 2 capsules by mouth in the morning. 09/10/2022 Activecelecoxib 100 mg oral capsule (10 sources)Nonsteroidal Anti-inflammatory Drug End: 01-55-8407zewy 1 capsule by mouth in the morningcelecoxib (CeleBREX) 100 MG capsule Take 100 mg by mouth in the morning. ActiveComment on above:Take 100 mg by mouth once daily.cephalexin 500 mg oral capsule (2 sources)Cephalosporin Antibacterial End: 96-59-7604akka 1 capsule by mouth twice dailycephALEXin (KEFLEX) 500 MG capsule Take 1 capsule by mouth 2 times daily 03/16/2025 Discontinued (Stop Taking at Discharge)cholecalciferol 0.05 mg oral tablet (18 sources)Vitamin Dtake 1 tablet by mouth in the morningcholecalciferol (Vitamin D-3) 50 MCG (1999 UT) tablet Take 2,000 Units by mouth in the morning. Active End: 19-33-4087sein 1 capsule by mouth once dailyvitamin D 50 MCG (1999 UT) CAPS capsule Take 1 capsule by mouth daily Suspendeddocusate sodium 50 mg / sennosides, intermediate 8.6 mg oral tablet (2 sources) End: 43-15-5257zfzv 1 tablet by mouth once dailysennosides-docusate sodium (SENOKOT-S) 8.6-50 MG tablet Take 1 tablet by mouth daily 03/16/2025 Disc ontinued (Stop Taking at Discharge)hydroCHLOROthiazide 25 mg oral tablet (3 sources)Thiazide Diuretictake 1 tablet by mouth once dailyhydroCHLOROthiazide (HYDRODIURIL) 25 mg tablet Take 1 tablet (25 mg total) by mouth daily. Active levothyroxine sodium 0.1 mg oral tablet (15 sources)l-ThyroxineStart: 95-90-2310jihfhemmiaugi (Synthroid, Levoxyl) 100 MCG tablet 08/29/2024 ActiveComment on above:Take 1 tablet by mouth once daily. liothyronine sodium 0.005 mg oral tablet (15 sources)l-TriiodothyronineStart: 78-45-8413zqkiozzkymgq (Cytomel) 5 MCG tablet 09/05/2024 ActiveComment on above:Take 5 mcg by mouth once daily. melatonin 3 mg oral tablet (3 sources)Start: 36-43-5756bbod 1 tablet by mouth once daily as needed for sleepmelatonin 3 MG TABS tablet Take 1 tablet by mouth nightly as needed (sleep) 03/16/2025 ActiveStart: 86-20-3451slww 3 mg by mouth once daily as needed3 mg, Oral, NIGHTLY PRN, Starting on Thu02/28/25 at 1544, Until Discontinued, Sleep memantine hydrochloride 10 mg oral tablet (9 sources)Z-gfcvuc-N-aspartate Receptor AntagonistStart: 00-00-6092luvl 1 tablet by mouth in the morningmemantine (Namenda) 10 MG tablet Take 10 mg by mouth in the morning and 10 mg in the evening. 08/16/2024 Activemethocarbamol 500 mg oral tablet (2 sources)Muscle RelaxantStart: 25-49-2760pruo 1 tablet by mouth four times dailymethocarbamol (ROBAXIN) 500 MG tablet Take 1 tablet by mouth 4 times daily 03/16/2025 ActiveStart: 41-74-1742owpr 500 mg by mouth four times mg, Oral, 4 TIMES DAILY, First dose on Thu03/05/25 at 1300, Until Discontinued miconazole nitrate 0.02 mg/mg topical powder (2 sources)Azole AntifungalStart: 22-59-9625kljqcitksy (MICOTIN) 2 % powder Apply topically 2 times daily. Apply to groin. 03/16/2025 ActiveStart: 33-63-5093dpbjx 1 dose topically twice dailyTopical, 2 TIMES DAILY, First dose on Thu03/03/25 at 0900, Apply to groin .Multiple Vitamin (multivitamin) tablet (2 sources)take 1 tablet by mouth once dailyMultiple Vitamin (multivitamin) tablet Take 1 tablet by mouth Daily Activeondansetron 4 mg disintegrating oral tablet (1 source)Serotonin-3 Receptor AntagonistStart: 17-63-6901dagmmvmpqmw (ZOFRAN- ODT) disintegrating tablet 4 mg (1 source)Start: 25-37-9591agshqosynwk (ZOFRAN-ODT) disintegrating tablet 4 mg oxyCODONE hydrochloride 10 mg oral tablet (3 sources)Opioid AgonistStart: 03-16-2025 End: 70-34-8609fros 1 tablet by mouth once daily at bedtimeoxyCODONE HCl (OXY- IR) 10 MG immediate release tablet Indications: S/P hip hemiarthroplasty , Left displaced femoral neck fracture (HCC) , Hip fracture, left, sequela Take 1 tablet by mouth in the morning and at bedtime for 7 days. Max Daily Amount: 20 mg 14 tablet 03/16/2025 03/23/2025 ActiveStart: 13-44-5265eazBAZHUE HCl (OXY-IR) immediate release tablet 10 mgStart: 86-52-2492xxjLQKVTP (ROXICODONE) immediate release tablet 5 mgpolyethylene glycol 3350 18969 mg powder for oral solution (2 sources)Osmotic LaxativeStart: 52-27-4334pcbh 1 dose by mouth once daily as needed for constipationpolyethylene glycol (GLYCOLAX) 17 g packet Take 1 packet by mouth daily as needed for Constipation 03/16/2025 ActiveStart: 37-33-606933 g, Oral, DAILY, First dose on Tu02/28/25 at 1600, Until Rbczefaiibnh901 ml potassium chloride 0.1 meq/ml injection (4 sources)Start: 15-94-880986 mEq, IntraVENous, ONCE, 1 dose, On 02/25/25 at 1115, at 100 mL/hr, Potassium chloride doses are limited to a maximum of six consecutive doses before reassessment of laboratory values is needed.Start: 02-25-2025 End: 76-13-336506 mEq, Oral, ONCE, 1 dose, On 02/25/25 at 1030, Do not crush, chew, or suck on tablet. Tablet may also be broken in half and each half swallowed separately. End: 00-18-0419mctx 10 mEq by mouth once dailypotassium chloride (KLOR-CON) 20 MEQ packet Take 10 mEq by mouth daily 03/16/2025 Discontinued (Stop Taking at Discharge)tolterodine tartrate 1 mg oral tablet (10 sources)Cholinergic Muscarinic AntagonistStart: 09-07-2024 End: 77-28-4301tkirsjayegs (Detrol) 1 MG tablet 09/07/2024 ActiveStart: 75-71-2926gmfh 1 tablet by mouth in the morning, then take 1 tablet by mouth at bedtimetolterodine (DETROL) 2 mg tablet Take 1 tablet (2 mg total) by mouth in the morning and 1 tablet (2mg total) before bedtime. 06/06/2024 Active Completed/Discontinued Medications MedicationDrug Class(es)DatesSig (Normalized)Sig (Original)aspirin 81 mg delayed release oral tablet (16 sources)Platelet Aggregation Inhibitor, Nonsteroidal Anti-inflammatory Drug Start: 02-25-2025 End: 22-10-2724bntd 81 mg by mouth twice daily81 mg, Oral, 2 times daily, First dose (after last modification) on Thu02/28/25 at 2100, Until Discontinued, Do not crush or break., Post-opStart: 88-27-1833fudr 81 mg by mouth once daily81 mg, Oral, DAILY, First dose (after last modification) on Thu03/08/25 at 0900, Until Discontinued,Do not crush or break., Post-optake 1 tablet by mouth once dailyaspirin 81 MG chewable tablet Take 1 tablet by mouth daily SuspendedComment on above:Take 81 mg by mouth once daily.ceFAZolin (ANCEF) 2000 mg in sterile water 20 mL IV syringe (1 source)Start: 02-25-2025 End: 52,000 mg, IntraVENous, EVERY 8 HOURS, 2 doses, First dose on 02/25/25 at 2000, Last dose on Thu02/26/25 at 0400, Antimicrobial Indications: Surgical Prophylaxis, Administer over 5 mins., Post-op1 ml fentaNYL 0.05 mg/ml injection (1 source)Opioid AgonistStart: 02-25-2025 End: 67-29-8924krih 1 dose by mouth every hour25 mcg, IntraVENous, ONCE, 1 dose, On 02/25/25 at 0230, If oral and IV narcotics ordered, use oral first and only use IV if oral is ineffective or cannot take oral. Do Not give oral and IV within 1 hour of each other unless specifically ordered.folic acid 0.4 mg oral tablet (2 sources)take 1 tablet by mouth once dailyfolic acid (FOLVITE) 400 MCG tablet Take 1 tablet by mouth daily Suspendedfurosemide 20 mg oral tablet (3 sources)Loop DiureticStart: 40-74-4375pfec 1 tablet by mouth once daily furosemide (LASIX) 20 mg tablet Take 1 tablet by mouth once daily for 14 days. 14 tablet 0 02/09/2019 ActiveComment on above:Take 1 tablet by mouth once daily for 14 days.1 ml heparin sodium, porcine 5000 unt/ml prefilled syringe (1 source)Unfractionated Heparin, Anti-coagulantStart: 83-60-1523bfxpgm 1 dose by subcutaneous injection three times daily5,000 Units, SubCUTAneous, EVERY 8 HOURS SCHEDULED (3 times per day), First dose on Thu03/01/25 at 1515, Until Discontinued1 ml morphine sulfate 2 mg/ml injection (1 source)Opioid AgonistStart: mg, IntraVENous, EVERY 4 HOURS PRN, Starting on Thu02/25/25 at 0925, Until Discontinued, Pain Moderate (4-6) OR per patient request for pain score (7-10), If oral and IV narcotics ordered, use oralfirst and only use IV if oral is ineffective or cannot take oral. Do Not give oral and IV within 1 hour of each other unless specifically ordered. Multiple Vitamins-Minerals (THERAPEUTIC MULTIVITAMIN-MINERALS) tablet (2 sources)take 1 tablet by mouth once dailyMultiple Vitamins-Minerals (THERAPEUTIC MULTIVITAMIN-MINERALS) tablet Take 1 tablet by mouth daily S uspendedtake 1 tablet by mouth once dailyMultiple Vitamins-Minerals (THERAPEUTIC MULTIVITAMIN-MINERALS) tablet Take 1 tablet by mouth daily Activemultivitamin with minerals (MULTI-VIT 55 PLUS ORAL) (2 sources)take 1 tablet by mouth once dailymultivitamin with minerals (MULTI- VIT 55 PLUS ORAL) Take 1 tablet by mouth once daily. 0 ActiveComment on above: Take 1 tablet by mouth once daily.sennosides, intermediate 8.6 mg oral tablet (1 source)Start: 89-43-9113dehd 1 tablet by mouth once daily as needed for odbkkxwehyes50.2 mg (2 tablet), Oral, DAILY PRN, Starting on Thu02/28/25 at 1544, Until Discontinued, Constipation, First line therapy for constipation sertraline 25 mg oral tablet (4 sources)Serotonin Reuptake InhibitorStart: 74-12-8110qgga 25 mg by mouth once daily25 mg, Oral, DAILY, First dose (after last modification) on Thu03/01/25 at 0900, Until DiscontinuedStart: 12-54-3608dbxx 25 mg by mouth once daily25 mg, Oral, DAILY, First dose on Thu02/25/25 at 1000, Until Discontinuedsodium bicarbonate 650 mg oral tablet (1 source)Start: 03-13-2025 End: 60-88-7861ftnj 650 mg by mouth twice fibma088 mg, Oral, 2 TIMES DAILY, First dose on Thu03/13/25 at 2100, Until Discontinued5 ml sodium chloride 9 mg/ml injection (7 sources)Start: -40 mL, IntraVENous, EVERY 12 HOURS SCHEDULED (2 times per day), First dose on Thu02/25/25 at 2100, Until Discontinued, For Line Patency: Peripheral IV = 5 mL; Midline or Central Line = 10 mL/lumen.If following IV push medication, administer flush at same rate as the IV push. Flush volume is determined by type of infusion therapy being given. For non- viscous solutions use: Peripheral IV = 5 mL Midline or Central Line = 10 mL/lumen For viscous solutions (i.e. blood components, parenteral nutrition, contrast media, or after obtaining blood sample) use: Peripheral IV = 10 mL Midline or CentralLine = 20 mL/lumen, Post-opStart: 54-07-4365Ysbuq: 02-25-2025 take 20 mL intravenously every hourIntraVENous, at 5-250 mL/hr, PRN, if patient receiving piggyback infusions and maintenance fluids are not ordered OR KVO fluids to protect IV site / prevent frequent line interruptions/ long duration, Starting on 02/25/25 at 0413, For piggyback infusion, administer at same rate as piggyback for a total of 25 mL. Enter 25 mL into dose field and piggyback rate into rate field of order. If piggyback is infusing at a rate less than 100 mL/hr, enter 25 mL into dose field and 100 mL/hr into rate field of order. For KVO fluids, enter rate of 20 mL/hr or less into rate field of order.Start: 70-85-8633xhwjauehb 20 mg oral tablet (4 sources)Loop DiureticStart: 03-14-2025 End: 58-92-7887sbug 10 mg by mouth every other day10 mg, Oral, EVERY OTHER DAY, First dose on Thu03/14/25 at 1415, Until DiscontinuedStart: 03-03-2025 End: 49-67-7743bkep 10 mg by mouth once daily10 mg, Oral, DAILY, First dose on Thu03/03/25 at 1845, Until Discontinued End: 33-11-8497iudl 1 tablet by mouth once dailytorsemide (DEMADEX) 10 MG tablet Take 1 tablet by mouth daily 03/16/2025 Discontinued (Stop Taking at Discharge) vitamin b12 0.5 mg oral tablet (2 sources)Vitamin W01mqpb 1 tablet by mouth once dailyvitamin B-12 (CYANOCOBALAMIN) 500 MCG tablet Take 1 tablet by mouth daily Suspended Problems Active Problems Problem ClassificationProblemDateDocumented DateEpisodic/ChronicAcute and unspecified renal failure (5 sources)Acute renal failure syndrome; Translations: [Acute kidney failure, unspecified]Onset: 392283-19-4923QsufasebKwnoqgrn (1 source)Presence of intraocular lens; Translations: [PRESENCE OF INTRAOCULAR LENS]Onset: 11-06-2356HhfivizVvhsohx kidney disease (1 source)Chronic kidney disease, stage 4 (severe); Translations: [CKD STAGE 4 SEVERE]Onset: 65-64-8199UapajedYpalzaw kidney disease (2 sources)Chronic kidney disease; Translations: [Chronic kidney disease, stage 3b]Onset: 09-81-9872Vhssrlnxwn heart failure; nonhypertensive (3 sources)Unspecified diastolic (congestive) heart failure; Translations: [Chronic diastolic (congestive) heart failure]Onset: 87-65-7910VkezfdrLqgijrxa atherosclerosis and other heart disease (9 sources)Coronary arteriosclerosis; Translations: [Atherosclerotic heart disease of [place] coronary artery without angina pectoris]Onset: 05-27-2011 58-20-0253SyfzfrkZkxrrrrk, dementia, and amnestic and other cognitive disorders (4 sources)Primary degenerative dementia of the Alzheimer type, senile onset; Translations: [Alzheimer's disease with late onset]Onset: ChronicDisorders of lipid metabolism (9 sources)Hyperlipidemia; Translations: [Hyperlipidemia, unspecified]Onset: 14-80-9801NcyirorD Codes: Fall (6 sources)Unspecified fall, initial encounter; Translations: [Fall]Onset: 357589-22-7749LqenpsdaObvpsqjsp hypertension (11 sources)Hypertensive disorder; Translations: [Essential (primary) hypertension]Onset: 01-66-8965MmjmqimEopawqbt of lower limb (2 sources)Closed fracture of femur; Translations: [Unspecified fracture of unspecified femur, initial encounter for closed fracture]Onset: 02-25-2025 95-62-8479GjgbcopgLlkcaewl of neck of femur (hip) (11 sources)Fracture of unspecified part of neck of left femur, initial encounter for closed fracture; Translations: [Closed fracture of unspecified part of neck of femur]Onset: 266104-73-0643OyraqmuvOhuslrogpfced symptoms and ill-defined conditions (5 sources)Functional urinary incontinence; 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]Onset: 163085-68-4396SrzklemTnummhvacqig with complications and secondary hypertension (3 sources)Hypertensive chronic kidney disease with stage 1 through stage 4 chronic kidney disease, or unspecified chronic kidney disease; Translations: [Hypertensive heart disease with heart failure]Onset: 61-34-9353Grtlcda Immunizations and screening for infectious disease (4 sources)Nonspecific reaction to cell mediated immunity measurement of gamma interferon antigen response without active tuberculosis; Translations: [NONSPC RXN C MED IMMU INF-G ANT RES]Onset: 26-64-3975XtlrgjswZlasljxahbj deficiencies (3 sources)Vitamin D deficiency; Translations: [Vitamin D deficiency, unspecified]Onset: 22-84-5647PqhsrisPpjicjfcd or stenosis of precerebral arteries (2 sources)Occlusion and stenosis of bilateral carotid arteries; Translations: [Occlusion and stenosis of bilateral carotid arteries]Onset: 32-51-5047Dymujlq Other connective tissue disease (3 sources)History of repair of hip joint; Translations: [Presence of unspecified artificial hip joint]Onset: 178798-69-2308NmpuxddVgqhw connective tissue disease (1 source)Presence of unspecified artificial hip joint; Translations: [Presence of unspecified artificial hipjoint]Onset: 99-53-8564IgzaylwPpjio diseases of kidney and ureters (1 source)Disorder of kidney and/or ureter; Translations: [Other specified disorders of kidney and ureter]40-99-9504QmqeujoQxtlz nervous system disorders (1 source)Metabolic encephalopathy; Translations: [METABOLIC ENCEPHALOPATHY] Onset: 79-76-8246UvuzezpRlcrc nervous system disorders (13 sources)Polyneuropathy; Translations: [Polyneuropathy, unspecified]Onset: 021650-69-1909CaquwyrBuaff nervous system disorders (13 sources)Impaired cognition; Translations: [Other symptoms and signs involving cognitive functions and awareness]Onset: 293986-33-2589Migunafe Other screening for suspected conditions (not mental disorders or infectious disease) (2 sources)Abnormal findings on diagnostic imaging of other specified body structures; Translations: [Nonspecific (abnormal) findings on radiological and other examination of other intrathoracic organs]Onset: ChronicResidual codes; unclassified (4 sources)Restlessness and agitation; Translations: [Restlessness and agitation]Onset: 496782-29-1131JxccoqsLvmenifw codes; unclassified (2 sources)Altered mental status; Translations: [Altered mental status, unspecified]EpisodicResidual codes; unclassified (1 source)Amnesia; Translations: [Other amnesia]56-62-2293OusovfbeZjfkayq disorders (5 sources)Hypothyroidism; Translations: [Hypothyroidism, unspecified]Onset: 92-83-3713MroryxuHrimnrgwgngd (16 sources)Parkinson's disease; Translations: [Parkinson's disease without dyskinesia or fluctuating manifestations (CMS/HCC)]Onset: ChronicUnclassified (3 sources)SUMMARYOnset: 17-72-0763Nslzvxyqaqdh (1 source)CONTACT W/AND (SUSP) EXPOS COVID-19; Translations: [CONTACT W/AND (SUSP) EXPOS COVID-19]Onset: 07-14-2022 Past or Other Problems Problem ClassificationProblemDateDocumented DateEpisodic/ChronicBacterial infection; unspecified site (2 sources)Bacteremia; Translations: [Other specified bacterial agents as the cause of diseases classified elsewhere]Onset: 87-46-8584VohrhxdcHpqqefoz atherosclerosis and other heart disease (3 sources)Presence of aortocoronary bypass graft; Translations: [PRESENCE AORTOCORONARY BYPASS GRAFT]Onset: 57-63-6672QumiyzwoJwihfppbar and other anemia (2 sources)Anemia, unspecified; Translations: [ANEMIA UNSPECIFIED]Onset: 13-73-3593BtybwigrHhnirymy mellitus without complication (1 source)Other abnormal glucose; Translations: [OTHER ABNORMAL GLUCOSE]Onset: 75-32-0100QizirrhdQ Codes: Place of occurrence (1 source)Unspecified place in unspecified non-institutional (private) residence as the place of occurrence of the external cause; Translations: [UNS PLAC UNS NON INST RES OCCUR EXT]Onset: 69-15-2263EgvpspnrOguxk and electrolyte disorders (1 source)Dehydration; Translations: [DEHYDRATION]Onset: 55-15-7755Jqkuisja Fracture of neck of femur (hip) (3 sources)Closed fracture of hip; Translations: [Fracture of unspecified part of neck of right femur, initialencounter for closed fracture]Onset: 02-25-2025 Resolved: [id number] and fatigue (4 sources)Weakness; Translations: [WEAKNESS]Onset: 92-62-3221YtqmqsqmVqbjwgubok disorders (1 source)Hormone replacement therapy; Translations: [HORMONE REPLACEMENT THERAPY]Onset: 41-75-6800BqkmalugXnrhxgfeqehpd gastroenteritis (1 source)Noninfective gastroenteritis and colitis, unspecified; Translations: [NONINFECTIVE GE AND COLITIS UNS]Onset: 47-87-7258PunsgujyJuurs aftercare (1 source)intermediate (current) use of aspirin; Translations: [FPC CURRENT USE OF ASPIRIN]Onset: 56-99-1127QgmjiuvoQbmrr aftercare (1 source)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; Translations: [OTH RN DISCHARGE CURRENT DRUG THERAPY]Onset: 12-48-4013IfjotrgmRozde connective tissue disease (3 sources)Rhabdomyolysis; Translations: [RHABDOMYOLYSIS]Onset: 07-01-2022 EpisodicOther diseases of kidney and ureters (1 source)Disorder of kidney and ureter, unspecified; Translations: [DISORDER KIDNEY AND URETER UNS]Onset: 39-29-8235QusimfwcRamnv eye disorders (1 source)Cataract extraction status, unspecified eye; Translations: [CATARACT EXTRACTION STATUS UNS EYE]Onset: 67-43-5466SrjspemlYupzz injuries and conditions due to external causes (1 source)Hypothermia, initial encounter; Translations: [HYPOTHERMIA INITIAL ENCOUNTER]Onset: 08-88-5163MhofcbraVtoom nervous system disorders (3 sources)Postoperative pain ; Translations: [Other acute postprocedural pain] Onset: 56-35-2945SyqxmavtRkfcs screening for suspected conditions (not mental disorders or infectious disease) (5 sources)Cardiovascular stress test abnormal; Translations: [Abnormal result of other cardiovascular function study]Onset: [id number] Residual codes; unclassified (5 sources)Altered mental status, unspecified; Translations: [Altered mental status, unspecified altered mental status type]Onset: 36-45-2613Vhoivrch Screening and history of mental health and substance abuse codes (1 source)Personal history of nicotine dependence; Translations: [PERSONAL HISTORY OF NICOTINE DEPEND]Onset: 04-07-2532Mhqsuhmb Results Test NameValueInterpretationReference RangeFacilityBasophils [#/volume] in Blood by Automated countOrdered By: Esteban Neely on 48-89-8256Jnnaxugzk (Bld) [#/Vol]0.1 10*3/uLNormal0.0-0.2FSamaritan North Health CenterComment on above:Result Comment: PERFORMED BY: [place] [address] PATHOLOGIST GENERAL ACTIVITIES THERAPIST OLGA BLANTON M.D.Performed By: #### CBC #### [place] [address] USABasophils/100 leukocytes in Blood by Automated count Ordered By: Esteban Neely on 93-92-7892Sgprkopxe/100 WBC (Bld)0.9 %Normal. [facility] HospitalComment on above:Performed By: #### CBC #### [place] [address] USAComplete Blood Count Auto Diffon 32-48-1977Rjxu Corpuscular HGB Conc32.8 g/hVSjpnbf76.5-35.6[facility] Physician GroupComment on above:Performed By: #### CBC #### [place] [address] USANRBC%0.1 /100{WBC}Normal0-0.5[facility] Comment on above:Performed By: #### CBC #### [place] [address] USAWhite Blood Count6.4 [CFU]/mLNormal4.1-10.5[facility] Physician GroupComment on above:Performed By: #### CBC #### [facility] [address] [place] [address] USAEosinophils [#/volume] in Blood by Automated countOrdered By: Esteban Bunting on 28-63-4519Ctqnmnvecfp (Bld) [#/Vol]0.6 10*3/uLHigh0.0-0.45 [facility] HospitalComment on above:Performed By: #### CBC #### [facility] [address] [place] [address] USAEosinophils/100 leukocytes in Blood by Automated count Ordered By: Esteban Bunting on 22-52-0405Ygsshmfrsuz/100 WBC (Bld)9.3 %Normal. [facility] HospitalComment on above:Performed By: #### CBC #### [facility] [address] [place] [address] USAErythrocyte distribution width [Ratio] by Automated count Ordered By: Esteban Bunting on 92-10-4177Dzfgxktwmox distribution width (RBC) [Ratio]14.1 %Nzcsuc15.0-14.8[facility] HospitalComment on above: Performed By: #### CBC #### [place] [address] USAErythrocytes [#/volume] in Blood by Automated countOrdered By: Esteban Bunting on 41-29-4178HYC (Bld) [#/Vol]4.34 10*6/uLNormal3.90-5.60 [facility] HospitalComment on above:Performed By: #### CBC #### [facility] [address] [place] [address] USAHematocrit [Volume Fraction] of Blood by Automated count Ordered By: Esteban Bunting on 23-66-0337Ciskqfopon (Bld) [Volume fraction]38.8 % Ngjpgu73.8-50.0[facility] HospitalComment on above:Performed By: #### CBC #### [facility] [address] [place] [address] USAHemoglobin [Mass/volume] in BloodOrdered By: Esteban Bunting on 53-30-9536Cjzggxtsmg (Bld) [Mass/Vol]12.7 g/dLLow13.0-17.0[facility] HospitalComment on above:Performed By: #### CBC #### [facility] [address] [place] [address] USALeukocytes [#/volume] corrected for nucleated erythrocytes in Blood by Automated counOrdered By: Esteban Bunting on 04-06-4043KMD corrected for nucl RBC Auto (Bld) [#/Vol]6.4 10*3/uL4.1-10.5FSamaritan North Health CenterLeukocytes [#/volume] in Blood by Automated countOrdered By: Esteban Bunting on 41-60-4722FKI (Bld) [#/Vol]6.4 10*3/uLNormal4.1-10.5FSamaritan North Health CenterComment on above:Performed By: #### CBC #### [facility] [address] [place] [address] USALymphocytes [#/volume] in Blood by Automated countOrdered By: Esteban Bunting on 13-40-2188Qktbrjenzbt (Bld) [#/Vol]2.7 10*3/uLNormal 1.00-4.8[facility] HospitalComment on above:Performed By: #### CBC #### [facility] [address] [place] [address] USALymphocytes/100 leukocytes in Blood by Automated count Ordered By: Esteban Bunting on 77-25-3910Yuvgpbyvtuc/100 WBC (Bld)42.3 %Normal. [facility] HospitalComment on above:Performed By: #### CBC #### [facility] [address] [place] [address] USAMCH [Entitic mass] by Automated countOrdered By: Esteban Bunting on 01-80-9509GGU (RBC) [Entitic mass]29.3 ilEjbmru12.5-35.2FSamaritan North Health CenterComment on above:Performed By: #### CBC #### [facility] [address]HC Auto (RBC) [Mass/Vol]Ordered By: Esteban Bunting on 88-54-1086FMIJ (RBC) [Mass/Vol]32.8 g/dL32.5-35.6FSamaritan North Health CenterMCV [Entitic volume] by Automated countOrdered By: Esteban Bunting on 27-08-8833MEO (RBC) [Entitic vol]89.4 tSWcheas13.5-101[facility] HospitalComment on above:Performed By: #### CBC #### [facility] [address] [place] [address] USAMonocytes [#/volume] in Blood by Automated countOrdered By: Esteban Bunting on 13-29-5620Jwnncuyde (Bld) [#/Vol]0.6 10*3/uLNormal0.0-0.8 [facility] HospitalComment on above:Performed By: #### CBC #### [facility] [address] [place] [address] USAMonocytes/100 leukocytes in Blood by Automated count Ordered By: Esteban Bunting on 70-87-2153Duxpgsgfr/100 WBC (Bld)9.4 %Normal. [facility] HospitalComment on above:Performed By: #### CBC #### [facility] [address] [place] [address] USANeutrophils [#/volume] in Blood by Automated countOrdered By: Esteban Bunting on 02-99-4309Ziewbnqsheu (Bld) [#/Vol]2.4 10*3/uLNormal 1.8-7.7FSamaritan North Health CenterComment on above:Performed By: #### CBC #### [facility] [address] [place] [address] USANeutrophils/100 leukocytes in Blood by Automated count Ordered By: Esteban Bunting on 83-32-4737Fewxfkdxifx/100 WBC (Bld)38.1 %Normal. [facility] HospitalComment on above:Performed By: #### CBC #### [place] [address] USANucleated erythrocytes [Presence] in Blood by Automated countOrdered By: Esteban Bunting on 49-91-7044Mxdmrbblb RBC Auto Ql (Bld)0.1 /100{WBC}0-0.5FSamaritan North Health CenterPlatelet mean volume [Entitic volume] in Blood by Automated countOrdered By: Esteban Bunting on 05-03-2025 Platelet mean volume (Bld) [Entitic vol]7.8 fLNormal6.6-10.1FSamaritan North Health CenterComment on above:Performed By: #### CBC #### [place] [address] USAPlatelets [#/volume] in Blood by Automated countOrdered By: Esteban Bunting on 88-26-9755Yoxdakxrb (Bld) [#/Vol]206 10*3/gNSqrkge661-989 [facility] HospitalComment on above:Performed By: #### CBC #### [place] [address] USABasophils [#/volume] in Blood by Automated countOrdered By: Esteban Bunting on 42-35-5275Ymkoykrqi (Bld) [#/Vol]0.0 10*3/uLNormal0.0-0.2 [facility] HospitalComment on above:Result Comment: PERFORMED BY: [place] [address] PATHOLOGIST GENERAL ACTIVITIES THERAPIST OLGA BLANTON M.D.Performed By: #### CBC #### [place] [address] USABasophils/100 leukocytes in Blood by Automated count Ordered By: Esteban Bunting on 35-49-2158Sybcskirn/100 WBC (Bld)0.7 %Normal. [facility] HospitalComment on above:Performed By: #### CBC #### [place] [address] USAComplete Blood Count Auto Diffon 66-66-4844Gfnt Corpuscular HGB Conc32.7 g/mUPpwawq80.5-35.6[facility] Physician GroupComment on above:Performed By: #### CBC #### [place] [address] USANRBC%0.1 /100{WBC}Normal0-0.5[facility] Comment on above:Performed By: #### CBC #### [place] [address] USAWhite Blood Count7.2 [CFU]/mLNormal4.1-10.5[facility] Physician GroupComment on above:Performed By: #### CBC #### [place] [address] USAEosinophils [#/volume] in Blood by Automated countOrdered By: Esteban Bunting on 67-54-5026Xatnurtsoef (Bld) [#/Vol]0.3 10*3/uLNormal 0.0-0.45[facility] HospitalComment on above:Performed By: #### CBC #### [facility] [address] [place] [address] USAEosinophils/100 leukocytes in Blood by Automated count Ordered By: Esteban Bunting on 73-04-6150Fweqzysimpo/100 WBC (Bld)3.5 %Normal. [facility] HospitalComment on above:Performed By: #### CBC #### [place] [address] USAErythrocyte distribution width [Ratio] by Automated count Ordered By: Esteban Bunting on 34-42-8880Xgstfyutnuz distribution width (RBC) [Ratio]14.2 %Fgsiva67.0-14.8[facility] HospitalComment on above: Performed By: #### CBC #### [place] [address] USAErythrocytes [#/volume] in Blood by Automated countOrdered By: Esteban Bunting on 62-48-0388XLI (Bld) [#/Vol]3.90 10*6/uLNormal3.90-5.60 [facility] HospitalComment on above:Performed By: #### CBC #### [facility] [address] [place] [address] USAHematocrit [Volume Fraction] of Blood by Automated count Ordered By: Esteban Bunting on 74-21-8822Ehtqtxfkbo (Bld) [Volume fraction]35.7 % Low38.8-50.0[facility] HospitalComment on above:Performed By: #### CBC #### [place] [address] USAHemoglobin [Mass/volume] in BloodOrdered By: Esteban Bunting on 70-20-4926Aozymzodez (Bld) [Mass/Vol]11.6 g/dLLow13.0-17.0[facility] HospitalComment on above:Performed By: #### CBC #### [place] [address] USALeukocytes [#/volume] corrected for nucleated erythrocytes in Blood by Automated counOrdered By: Esteban Bunting on 72-66-8221JWP corrected for nucl RBC Auto (Bld) [#/Vol]7.2 10*3/uL4.1-10.5FSamaritan North Health CenterLeukocytes [#/volume] in Blood by Automated countOrdered By: Esteban Bunting on 99-25-8428JXK (Bld) [#/Vol]7.2 10*3/uLNormal4.1-10.5FSamaritan North Health CenterComment on above:Performed By: #### CBC #### [place] [address] USALymphocytes [#/volume] in Blood by Automated countOrdered By: Esteban Bunting on 26-11-7957Ohkidzauioa (Bld) [#/Vol]1.5 10*3/uLNormal 1.00-4.8[facility] HospitalComment on above:Performed By: #### CBC #### [place] [address] USALymphocytes/100 leukocytes in Blood by Automated count Ordered By: Esteban Bunting on 50-59-7906Prfdafqroca/100 WBC (Bld)20.4 %Normal. [facility] HospitalComment on above:Performed By: #### CBC #### [facility] [address]H [Entitic mass] by Automated countOrdered By: Esteban Bunting on 75-84-0798LQK (RBC) [Entitic mass]29.8 nrBcyitv22.5-35.2FSamaritan North Health CenterComment on above:Performed By: #### CBC #### [facility] [address] Auto (RBC) [Mass/Vol]Ordered By: Esteban Bunting on 96-70-6253CZAA (RBC) [Mass/Vol]32.7 g/dL32.5-35.6FLake County Memorial Hospital - WestV [Entitic volume] by Automated countOrdered By: Esteban Bunting on 11-10-2077FXB (RBC) [Entitic vol]91.4 vRGrnfzh00.5-101[facility] HospitalComment on above:Performed By: #### CBC #### [place] [address] USAMonocytes [#/volume] in Blood by Automated countOrdered By: Esteban Bunting on 42-28-3240Gxykzsqah (Bld) [#/Vol]0.8 10*3/uLNormal0.0-0.8 [facility] HospitalComment on above:Performed By: #### CBC #### [facility] [address] [place] [address] USAMonocytes/100 leukocytes in Blood by Automated count Ordered By: Esteban Bunting on 71-69-8452Gnntariiz/100 WBC (Bld)10.7 %Normal. [facility] HospitalComment on above:Performed By: #### CBC #### [place] [address] USANeutrophils [#/volume] in Blood by Automated countOrdered By: Esteban Bunting on 61-23-9283Clydvttmsby (Bld) [#/Vol]4.7 10*3/uLNormal 1.8-7.7FSamaritan North Health CenterComment on above:Performed By: #### CBC #### [facility] [address] [place] [id number] USANeutrophils/100 leukocytes in Blood by Automated count Ordered By: Esteban Bunting on 41-19-1397Qnpupgwjies/100 WBC (Bld)64.7 %Normal. [facility] HospitalComment on above:Performed By: #### CBC #### [facility] [address] [place] [address] USANucleated erythrocytes [Presence] in Blood by Automated countOrdered By: Esteban Bunting on 78-59-4887Vqfulvgdv RBC Auto Ql (Bld)0.1 /100{WBC}0-0.5FSamaritan North Health CenterPlatelet mean volume [Entitic volume] in Blood by Automated countOrdered By: Esteban Bunting on 03-17-2025 Platelet mean volume (Bld) [Entitic vol]7.9 fLNormal6.6-10.1FSamaritan North Health CenterComment on above:Performed By: #### CBC #### [place] [id number] USAPlatelets [#/volume] in Blood by Automated countOrdered By: Esteban Bunting on 94-39-4276Gdsmvgiwr (Bld) [#/Vol]209 10*3/zAVlywpn883-925 [facility] HospitalComment on above:Performed By: #### CBC #### [facility] [address] [place] [id number] USABasic Metab w/rfx MGon 33-97-2461Cmmcm gap [Moles/Vol]12 mmol/LNormal9-16[facility] HospitalComment on above:Performed By: #### CDP, BMPX #### [facility] [address] [place] [address] Business Systems Architect: Arturo Mac DOCalcium [Mass/Vol]9.2 mg/dLNormal8.6-10.4 [facility] HospitalComment on above:Performed By: #### MANNY, BMPX #### [facility] [address] [facility] [place] [address] Business Systems Architect: Arturo Mac DOChloride [Moles/Vol]103 mmol/OIdoqvu90-784 [facility] HospitalComment on above:Performed By: #### CDP, BMPX #### [facility] [address] [facility] [place] [address] Business Systems Architect: Arturo Mac DOCO2 [Moles/Vol]25 mmol/RPsjyog01-49TnlupWvumedicine Barnesville HospitalComment on above:Performed By: #### MANNY, BMPX #### [facility] [address] [facility] [place] [address] Business Systems Architect: Arturo Mac DOCreatinine [Mass/Vol]2.1 mg/dLHigh0.7-1.2 [facility] HospitalComascension providence hospital on above:Performed By: #### MANNY, BMPX #### [facility] [address] [facility] [place] [address] Business Systems Architect: Arturo Mac DOGFR/1.73 sq M.predicted among non-blacks MDRD (S/P/Bld) [Vol rate/Area]30 mL/min/{1.73_m2}Low>60[facility] Comment on above:Result Comment: These results are not intended for use in patients <18 years of age. eGFR results are calculated without a race factor using the 2020 CKD-EPI equation. Careful clinical correlation is recommended, particularly when comparing to results calculated using previous equations. The CKD-EPI equation is less accurate in patients with extremes of muscle mass, extra-renal metabolism of creatine, excessive creatine ingestion, or following therapy that affects renal tubular secretion.Performed By: #### CDP, BMPX #### [facility] [address] [facility] [place] [address] Business Systems Architect: Arturo Mac DOGlucose [Mass/Vol]111 mg/xQTyfw81-22KvfkoOur Lady of Mercy HospitalComment on above:Performed By: #### MANNY, BMPX #### [facility] [address] [facility] [place] [address] Business Systems Architect: Arturo Mac DOPotassium [Moles/Vol]4.3 mmol/LNormal3.7-5.3 [facility] HospitalComascension providence hospital on above:Performed By: #### MANNY, BMPX #### [facility] [address] [facility] [place] [address] Business Systems Architect: Arturo Mac DOSodium [Moles/Vol]140 mmol/DFbjtsy402-229 [facility] HospitalComascension providence hospital on above:Performed By: #### MANNY, BMPX #### [facility] [address] [facility] [place] [address] Business Systems Architect: Arturo Mac DOUrea nitrogen [Mass/Vol]33 mg/dLHigh8-23[facility] HospitalComascension providence hospital on above:Performed By: #### MANNY, BMPX #### [facility] [address] [place] [address] Business Systems Architect: Arturo Mac DOBasic Metabolic Panel w/ Reflex to MGon 38-53-6417Ljhlu gap [Moles/Vol]12 mmol/L9 - 16 mmol/LBon [facility] Calcium [Mass/Vol]9.2 mg/dL8.6 - 10.4 mg/dLBon Secours [facility] HealthChloride [Moles/Vol]103 mmol/L98 - 107 mmol/LBon Secours [facility] Clinic Ment[facility] HospitalCO2 [Moles/Vol]25 mmol/L20 - 31 mmol/LBon [facility]ours [facility] HospitalCreatinine [Mass/Vol]2.1 mg/dLHigh 0.7 - 1.2 mg/dLBon Secours [facility] Clinic Mentor HospitalEst, Glom Filt Wjfh50Eqj- PINFBon Secours [facility] Hospitaly HealthComment on above: These results are not intended for use in patients <18 years of age. eGFR results are calculated without a race factor using the 2020 CKD-EPI equation. Careful clinical correlation is recommended, particularly when comparing to results calculated using previous equations. The CKD-EPI equation is less accurate in patients with extremes of muscle mass, extra-renal metabolism of creatine, excessive creatine ingestion, or following therapy that affects renal tubular secretion. Glucose [Mass/Vol]111 mg/fNExig93 - 99 mg/dLBon [facility] Interpretation and review of laboratory resultsAbnormalBon [facility] Potassium [Moles/Vol]4.3 mmol/L3.7 - 5.3 mmol/LBon SecSumma HealthSodium [Moles/Vol]140 mmol/L136 - 145 mmol/LBon SecSumma HealthUrea nitrogen [Mass/Vol]33 mg/dLHigh8 - 23 mg/dLBon SecAurora [address]– CudahyCBC auto differentialon 35-84-8783Jeicvtdfz (Bld) [#/Vol]0.05 10*3/uLBon Secours [facility] Methodist HospitalVisualnet [facility] HospitalBasophils/100 WBC (Bld)1 %0 - 2 %Bon SecP[facility] Health Eosinophils (Bld) [#/Vol]0.27 10*3/uLBon Secours [facility] Clinic Mentor HospitalEosinophils/100 WBC (Bld)4 %0 - 4 %[facility] HealthErythrocyte distribution width (RBC) [Ratio]14.0 %11.5 - 14.9 %[facility] Hospitaly HealthHematocrit (Bld) [Volume fraction]36.6 %Low41.0 - 53.0 %Bon SecSt. Anne Hospitaly [facility] City HospitalHemoglobin (Bld) [Mass/Vol]11.3 g/dLLow13.5 - 17.5 g/dLBon SecSumma HealthImmature granulocytes (Bld) [#/Vol]0.03 10*3/uLBon Secours [facility] HospitalImmature granulocytes/100 WBC (Bld)0 %0[facility] Hospitaly HealthInterpretation and review of laboratory resultsAbnormalBon SecSt. Anne Hospitaly HealthLymphocytes/100 WBC (Bld)25 %24 - 44 %[facility] HealthLymphocytes/100 WBC (Bld)1.83 %[facility] HospitalH (RBC) [Entitic mass]29.2 pg26.0 - 34.0 pgRiverside Shore Memorial HospitalHC (RBC) [Mass/Vol]30.9 g/dLLow31.0 - 37.0 g/dLBon [facility] MCV (RBC) [Entitic vol]94.6 fL80.0 - 100.0 fLBon [facility]ours [facility] Monocytes/100 WBC (Bld)11 %3 - 12 %[facility] CenterMonocytes/100 WBC (Bld)0.80 %[facility] Medical CenterNeutrophils/100 WBC (Bld)59 %36 - 66 %[facility] Medical CenterNucleated RBC/100 WBC (Bld) [Ratio]0.0 %0 per 100 WBCBon Secours Memorial Regional Medical CenterPlatelet mean volume (Bld) [Entitic vol]9.5 fL8.0 - 13.5 fL [facility] Medical CenterPlatelets (Bld) [#/Vol]206 10*3/uLBon Secours Memorial Regional Medical CenterRBC (Bld) [#/Vol]3.87 10*6/uLLow4.21 - 5.77 m/[facility] Segmented neutrophils/100 WBC (Bld)4.28 %[facility] Medical CenterWBC other (Bld) [#/Vol]7.3Bon [facility] HospitalCBC with Diffon 84-97-0789Sfr. Basophil0.05 k/uLNormal0.00-0.20[facility] HospitalComment on above:Performed By: #### CDP, BMPX #### [facility] [address] [place] [address] Business Systems Architect: Arturo Mac DOAbs.Imm.Granulocyte0.03 k/uLNormal0.00-0.30 [facility] HospitalComment on above:Performed By: #### CDP, BMPX #### [facility] [address] [place] [address] Business Systems Architect: Arturo Mac DOAbs.Neutrophil (Seg)4.28 k/uLNormal1.50-8.[address] [facility] on above:Performed By: #### CDP, BMPX #### [facility] [place] [address] Business Systems Architect: Arturo Mac DOBasophils/100 WBC (Bld)1 %Normal0-2MUniversity Hospit[address] [facility] on above:Performed By: #### MANNY, BMPX #### [facility] [address] [place] [address] Business Systems Architect: Arturo Mac DOEosinophils (Bld) [#/Vol]0.27 10*3/uLNormal 0.00-0.44[facility] on above:Performed By: #### MANNY, BMPX #### [facility] [address] [place] [address] Business Systems Architect: Arturo Mac DOEosinophils/100 WBC (Bld)4 %Normal0-4[facility] on above:Performed By: #### MANNY, BMPX #### [place] [address] Business Systems Architect: Arturo Mac DOErythrocyte distribution width (RBC) [Ratio] 14.0 %Adhfew75.5-14.9[facility] on above:Performed By: #### MANNY, BMPX #### [facility] [address] [place] [address] Business Systems Architect: Arturo Mac DOHematocrit (Bld) [Volume fraction]36.6 %Low 41.0-53.0[facility] on above:Performed By: #### MANNY, BMPX #### [facility] [place] [address] Business Systems Architect: Arturo Mac DOHemoglobin (Bld) [Mass/Vol]11.3 g/dLLow 13.5-17.5[facility] on above:Performed By: #### CDP, BMPX #### [facility] [address] [place] [address] Business Systems Architect: Arturo Mac DOImmature granulocytes/100 WBC (Bld)0 %Normal0 [facility] HospitalComascension providence hospital on above:Performed By: #### MANNY, BMPX #### [facility] [address] [place] [address] Business Systems Architect: Arturo Mac DOLymphocytes (Bld) [#/Vol]1.83 10*3/uLNormal 1.10-3.70W[facility]umedicine [facility] on above:Performed By: #### MANNY, BMPX #### [facility] [address] [place] [address] Business Systems Architect: Arturo Mac DOLymphocytes/100 WBC (Bld)25 %Gjaqss15-37JlpfhMercy Health St. [facility] on above:Performed By: #### MANNY, BMPX #### [facility] [address] [place] [address] Business Systems Architect: Arturo Mac DOMCH (RBC) [Entitic mass]29.2 pgNormal 26.0-34.0[facility] on above:Performed By: #### CDP, BMPX #### [facility] [address] [place] [address] Business Systems Architect: Arturo Mac DOMCHC (RBC) [Mass/Vol]30.9 g/dLLow31.0-37.0 [facility] on above:Performed By: #### CDP, BMPX #### [facility] [place] [address] Business Systems Architect: Arturo Mac DOMCV (RBC) [Entitic vol]94.6 fLNormal 80.0-100.0[facility] on above:Performed By: #### CDP, BMPX #### [facility] [address] [place] [address] Business Systems Architect: Arturo Mac DOMonocytes (Bld) [#/Vol]0.80 10*3/uLNormal 0.10-1.20[facility] on above:Performed By: #### MANNY, BMPX #### [facility] [address] [place] [address] Business Systems Architect: Arturo Mac DOMonocytes/100 WBC (Bld)11 %Normal3-12[facility] on above:Performed By: #### MANNY, BMPX #### [facility] [address] [place] [address] Business Systems Architect: Arturo Mac DONeutrophil (Seg)59 %Mipcar23-08GohsgMercy Health St. [facility] on above:Performed By: #### MANNY, BMPX #### [facility] [address] [place] [address] Business Systems Architect: Arturo Mac DONRBC Automated0.0 per 100 BFVTpuirz3LyrfjWvumedicine [facility] HospitalCom[facility] on above:Performed By: #### MANNY, BMPX #### [facility] [address] [place] [address]39 Business Systems Architect: Arturo Mac DOPlatelet mean volume (Bld) [Entitic vol]9.5 fLNormal8.0-13.5[facility] on above:Performed By: #### CDP, BMPX #### [facility] [address] [facility] [place] [address] Business Systems Architect: Arturo Mac DOPlatelets (Bld) [#/Vol]206 10*3/uLNormal 150-450[facility]Com[facility] on above:Performed By: #### MANNY, BMPX #### [facility] [address] [facility] [place] [address] Business Systems Architect: Arturo Mac DORBC (Bld) [#/Vol]3.87 10*6/uLLow4.21-5.[address] [facility] on above:Performed By: #### MANNY, BMPX #### [facility] [address] [facility] [place] [address] Business Systems Architect: Arturo Mac DOWBC (Bld) [#/Vol]7.3 10*3/uLNormal3.5-11.0 [facility] on above:Performed By: #### MANNY, BMPX #### [facility] [address] [facility] [place] [address] Business Systems Architect: Arturo Mac DOBasic Metabolic Panelon [id number] gap [Moles/Vol]12 mmol/L9 - 16 mmol/LBon [facility] HealthCalcium [Mass/Vol]9.4 mg/dL8.6 - 10.4 mg/dLBon [facility] HealthChloride [Moles/Vol]102 mmol/L98 - 107 mmol/LBon [facility]ours [facility] Hospitaly HealthCO2 [Moles/Vol]19 mmol/LLow20 - 31 mmol/LBon [facility] HealthCreatinine [Mass/Vol]1.8 mg/dLHigh0.7 - 1.2 mg/dLBon Secours [facility] Hospitaly HealthEst, Glom Filt Gfgf43Mkt- PINFBon SecSumma HealthComascension providence hospital on above: These results are not intended for use in patients <18 years of age. eGFR results are calculated without a race factor using the 2020 CKD-EPI equation. Careful clinical correlation is recommended, particularly when comparing to results calculated using previous equations. The CKD-EPI equation is less accurate in patients with extremes of muscle mass, extra-renal metabolism of creatine, excessive creatine ingestion, or following therapy that affects renal tubular secretion. Glucose [Mass/Vol]124 mg/cMWtxe77 - 99 mg/dLBon [facility] Interpretation and review of laboratory resultsAbnormalBon Sec[facility] Potassium [Moles/Vol]4.7 mmol/L3.7 - 5.3 mmol/LBon [facility] InstituteSodium [Moles/Vol]133 mmol/LKvk466 - 145 mmol/LBon [facility] InstituteUrea nitrogen [Mass/Vol]28 mg/dLHigh8 - 23 mg/dLBon [facility] HospitalBasic Metabolic Profon [id number] gap [Moles/Vol]12 mmol/LNormal9-16 [facility] HospitalComment on above:Performed By: #### BMP #### [facility] [address] [place] [address] Business Systems Architect: Arturo Mac DOCalcium [Mass/Vol]9.4 mg/dLNormal8.6-10.4 [facility]Com[facility] on above:Performed By: #### BMP #### [facility] [place] [address] Business Systems Architect: Arturo Mac DOChloride [Moles/Vol]102 mmol/AYtlleq06-618 [facility]Com[facility] on above:Performed By: #### BMP #### [facility] [address] [place] [address] Business Systems Architect: Arturo Mac DOCO2 [Moles/Vol]19 mmol/WCgw15-98YydgdWvumedicine [facility] HospitalComasc[facility] on above:Performed By: #### BMP #### [facility] [address] [place] [address], [place] [address] Business Systems Architect: Arturo Mac DOCreatinine [Mass/Vol]1.8 mg/dLHigh0.7-1.2 [facility] HospitalComment on above:Performed By: #### BMP #### [facility] [address] [place] [address]. [place] [address] Business Systems Architect: Arturo Mac DOGFR/1.73 sq M.predicted among non-blacks MDRD (S/P/Bld) [Vol rate/Area]36 mL/min/{1.73_m2}Low>60[facility] Comment on above:Result Comment: These results are not intended for use in patients <18 years of age. eGFR results are calculated without a race factor using the 2020 CKD-EPI equation. Careful clinical correlation is recommended, particularly when comparing to results calculated using previous equations. The CKD-EPI equation is less accurate in patients with extremes of muscle mass, extra-renal metabolism of creatine, excessive creatine ingestion, or following therapy that affects renal tubular secretion.Performed By: #### BMP #### [facility] [address] [place] [address]. [place] [address] Business Systems Architect: Arturo Mac DOGlucose [Mass/Vol]124 mg/iUZdpi25-17WlrdfOur Lady of Mercy HospitalComment on above:Performed By: #### BMP #### [facility] [address] [place] [address]. [place] [address] Business Systems Architect: Arturo Mac DOPotassium [Moles/Vol]4.7 mmol/LNormal3.7-5.3 [facility] HospitalComment on above:Performed By: #### BMP #### [facility] [address] [place] [address]. [place] [address] Business Systems Architect: Arturo Mac DOSodium [Moles/Vol]133 mmol/XXgk359-609GdhgoWvumedicine [facility] HospitalComment on above:Performed By: #### BMP #### [facility] [facility] [place] [address] Business Systems Architect: Arturo Mac DOUrea nitrogen [Mass/Vol]28 mg/dLHigh8-23[facility] HospitalCom[facility] on above:Performed By: #### BMP #### [facility] [address] [place] [address] Business Systems Architect: Arturo Mac DOSpecimen Rejectionon [id number] for rejectionUnable to perform testing: Specimen hemolyzed.NormalWvumedicine [facility] HospitalComascension prov[facility] hospital on above:Performed By: #### BMP, MG #### [facility] [address] [place] [address] Business Systems Architect: Arturo Mac DOSource of sample.BLOODNormalWvumedicine [facility] HospitalComasc[facility] prov[facility] hospital on above:Performed By: #### BMP, MG #### [facility] [address] [place] [address] Business Systems Architect: Arturo Mac DOTest orderedBMPNormalWvumedicine [facility] HospitalComasc[facility] hospital on above:Performed By: #### BMP, MG #### [facility] [address] [place] [address] Business Systems Architect: Arturo Mac DOBasic Metab w/rfx MGon [id number] gap [Moles/Vol]11 mmol/LNormal9-16[facility] HospitalCom[facility] on above: Performed By: #### BMP, MG #### [facility] [address] [place] [address] Business Systems Architect: Arturo Mac DOCalcium [Mass/Vol]9.4 mg/dLNormal8.6-10.4 [facility]Com[facility] on above:Performed By: #### BMP, MG #### [facility] [address] [place] [address] Business Systems Architect: Arturo Mac DOChloride [Moles/Vol]103 mmol/LFcaxsz73-851 [facility] HospitalComment on above:Performed By: #### BMP, MG #### [facility] [address] [facility] [place] [address] Business Systems Architect: Arturo Mac DOCO2 [Moles/Vol]25 mmol/VFqkjxa23-71WhdomWvumedicine [facility] HospitalComascension prov[facility] hospital on above:Performed By: #### BMP, MG #### [facility] [address] [place] [address]. [place] [address] Business Systems Architect: Arturo Mac DOCreatinine [Mass/Vol]1.8 mg/dLHigh0.7-1.2 [facility] HospitalCom[facility] on above:Performed By: #### BMP, MG #### [facility] [address] [place] [address]. [place] [address] Business Systems Architect: Arturo Mac DOGFR/1.73 sq M.predicted among non-blacks MDRD (S/P/Bld) [Vol rate/Area]36 mL/min/{1.73_m2}Low>60[facility] Comment on above:Result Comment: These results are not intended for use in patients <18 years of age. eGFR results are calculated without a race factor using the 2020 CKD-EPI equation. Careful clinical correlation is recommended, particularly when comparing to results calculated using previous equations. The CKD-EPI equation is less accurate in patients with extremes of muscle mass, extra-renal metabolism of creatine, excessive creatine ingestion, or following therapy that affects renal tubular secretion.Performed By: #### BMP, MG #### [facility] [facility] [place] [address] Business Systems Architect: Arturo Mac DOGlucose [Mass/Vol]102 mg/qQWcoz57-78HyjznOur Lady of Mercy HospitalComment on above:Performed By: #### BMP, MG #### [facility] [address] [facility] [place] [address] Business Systems Architect: Arturo Mac DOPotassium [Moles/Vol]4.9 mmol/LNormal3.7-5.3 [facility] HospitalCom[facility] on above:Result Comment: Specimen hemolysis has exceeded the interference as defined by Manuela. Value may be falsely increased. Suggest recollection if clinically indicated.Performed By: #### BMP, MG #### [facility] [facility] [place] [address] Business Systems Architect: Arturo Mac DOSodium [Moles/Vol]139 mmol/DZtldzy501-892 [facility] HospitalCom[facility] on above:Performed By: #### BMP, MG #### [facility] [address] [place] [address]. [place] [address] Business Systems Architect: Arturo Mac DOUrea nitrogen [Mass/Vol]34 mg/dLHigh8-23[facility] HospitalCom[facility] on above:Performed By: #### BMP, MG #### [facility] [address] [place] [address]. [place] [address] Business Systems Architect: Arturo Mac DOBasic Metabolic Panel w/ Reflex to MGon [id number] gap [Moles/Vol]11 mmol/L9 - 16 mmol/LBon [facility] Calcium [Mass/Vol]9.4 mg/dL8.6 - 10.4 mg/dLBon [facility] HealthChloride [Moles/Vol]103 mmol/L98 - 107 mmol/LBon [facility] InstituteCO2 [Moles/Vol]25 mmol/L20 - 31 mmol/LBon [facility] HospitalCreatinine [Mass/Vol]1.8 mg/dLHigh 0.7 - 1.2 mg/dLBon [facility] Centerours [facility] Clinic Mentor HospitalEst, Glom Filt Hsdi98Uwg- PINFBon [facility] Health InstituteComment on above: These results are not intended for use in patients <18 years of age. eGFR results are calculated without a race factor using the 2020 CKD-EPI equation. Careful clinical correlation is recommended, particularly when comparing to results calculated using previous equations. The CKD-EPI equation is less accurate in patients with extremes of muscle mass, extra-renal metabolism of creatine, excessive creatine ingestion, or following therapy that affects renal tubular secretion. Glucose [Mass/Vol]102 mg/yYPdzk88 - 99 mg/dLBon [facility] Interpretation and review of laboratory resultsAbnormalBon [facility] Potassium [Moles/Vol]4.9 mmol/L3.7 - 5.3 mmol/LBon [facility] InstituteComment on above:Specimen hemolysis has exceeded the interference as defined by Manuela. Value may be falsely increased. Suggest recollection if clinically indicated. Sodium [Moles/Vol]139 mmol/L136 - 145 mmol/LBon [facility] InstituteUrea nitrogen [Mass/Vol]34 mg/dLHigh8 - 23 mg/dLBon [facility] HospitalBasic Metab w/rfx MGon [id number] gap [Moles/Vol]13 mmol/L Normal9-16[facility] HospitalComment on above:Performed By: #### BMPX, CDP #### [facility] [address] [place] [address] Business Systems Architect: Arturo Mac DOCalcium [Mass/Vol]9.1 mg/dLNormal8.6-10.[address] [facility] on above:Performed By: #### BMPX, CDP #### [facility] [address] [place] [address] Business Systems Architect: Arturo Mac DOChloride [Moles/Vol]102 mmol/ENfgeyl99-[address] [facility] on above:Performed By: #### BMPX, CDP #### [facility] [place] [address] Business Systems Architect: Arturo Mac DOCO2 [Moles/Vol]23 mmol/WShyypc20-91Gbxgf [facility] HospitalComment on above:Performed By: #### BMPX, CDP #### [facility] [address] [facility] [place] [address] Business Systems Architect: Arturo Mac DOCreatinine [Mass/Vol]2.0 mg/dLHigh0.7-1.2 [facility] HospitalComment on above:Performed By: #### BMPX, CDP #### [facility] [facility] [place] [address] Business Systems Architect: Arturo Mac DOGFR/1.73 sq M.predicted among non-blacks MDRD (S/P/Bld) [Vol rate/Area]32 mL/min/{1.73_m2}Low>60[facility] Comment on above:Result Comment: These results are not intended for use in patients <18 years of age. eGFR results are calculated without a race factor using the 2020 CKD-EPI equation. Careful clinical correlation is recommended, particularly when comparing to results calculated using previous equations. The CKD-EPI equation is less accurate in patients with extremes of muscle mass, extra-renal metabolism of creatine, excessive creatine ingestion, or following therapy that affects renal tubular secretion.Performed By: #### BMPX, CDP #### [facility] [address] [facility] [place] [address] Business Systems Architect: Arturo Mac DOGlucose [Mass/Vol]127 mg/sJXyrs78-62ElrjuOur Lady of Mercy HospitalComment on above:Performed By: #### BMPX, CDP #### [facility] [facility] [place] [address] Business Systems Architect: Arturo Mac DOPotassium [Moles/Vol]4.3 mmol/LNormal3.7-5.3 [facility] HospitalCom[facility] on above:Performed By: #### BMPX, CDP #### [facility] [address] [place] [address]. [place] [address] Business Systems Architect: Fanelly, Arturo, DOSodium [Moles/Vol]138 mmol/EJzkmpz210-916 [facility] HospitalComment on above:Performed By: #### BMPX, CDP #### [facility] [address] [facility] [place] [address] Business Systems Architect: Arturo Mac DOUrea nitrogen [Mass/Vol]41 mg/dLHigh8-23[facility] HospitalComment on above:Performed By: #### BMPX, CDP #### [facility] [address] [facility] [place] [address] Business Systems Architect: Arturo Mac DOBasic Metabolic Panel w/ Reflex to MGon [id number] gap [Moles/Vol]13 mmol/L9 - 16 mmol/LBon [facility] Calcium [Mass/Vol]9.1 mg/dL8.6 - 10.4 mg/dLBon [facility] InstituteChloride [Moles/Vol]102 mmol/L98 - 107 mmol/LBon [facility] InstituteCO2 [Moles/Vol]23 mmol/L20 - 31 mmol/LBon [facility] InstituteCreatinine [Mass/Vol]2.0 mg/dLHigh 0.7 - 1.2 mg/dLBon [facility] InstituteEst, Glom Filt Moyk31Keo- PINFBon [facility] InstituteComment on above: These results are not intended for use in patients <18 years of age. eGFR results are calculated without a race factor using the 2020 CKD-EPI equation. Careful clinical correlation is recommended, particularly when comparing to results calculated using previous equations. The CKD-EPI equation is less accurate in patients with extremes of muscle mass, extra-renal metabolism of creatine, excessive creatine ingestion, or following therapy that affects renal tubular secretion. Glucose [Mass/Vol]127 mg/oZJwbi59 - 99 mg/dLBon [facility] Interpretation and review of laboratory resultsAbnormalBon [facility] Potassium [Moles/Vol]4.3 mmol/L3.7 - 5.3 mmol/LBon [facility] Medical CenterVEEDIMS Riverside Methodist HospitalVisualnet East [facility] City HospitalSodium [Moles/Vol]138 mmol/L136 - 145 mmol/LBon [facility] InstituteUrea nitrogen [Mass/Vol]41 mg/dLHigh8 - 23 mg/dLBon [facility] HospitalBon [facility]ours [facility] Ment[facility] HospitalCBC auto differentialon [id number] (Bld) [#/Vol]0.04 10*3/uLBon [facility]ours [facility] Ment[facility] HospitalBasophils/100 WBC (Bld)1 %0 - 2 %Bon [facility] Eosinophils (Bld) [#/Vol]0.39 10*3/uLBon Secours [facility] Clinic Ment[facility] HospitalEosinophils/100 WBC (Bld)5 %High0 - 4 %[facility] HospitalErythrocyte distribution width (RBC) [Ratio]14.1 %11.5 - 14.9 %Bon SecSumma HealthHematocrit (Bld) [Volume fraction]37.2 %Low41.0 - 53.0 %Bon SecSumma HealthHemoglobin (Bld) [Mass/Vol]11.2 g/dLLow13.5 - 17.5 g/dLBon Secours [facility] Clinic Mentor HospitalImmature granulocytes (Bld) [#/Vol]0.08 10*3/uLBon [facility]ours [facility] Ment[facility] HospitalImmature granulocytes/100 WBC (Bld)1 %Jeel4Ntm [facility] InstituteInterpretation and review of laboratory resultsAbnormalBon SecSumma HealthLymphocytes/100 WBC (Bld)29 %24 - 44 %[facility] SecSumma HealthLymphocytes/100 WBC (Bld)2.24 %Bon SecLutheran HospitalH (RBC) [Entitic mass]28.7 pg26.0 - 34.0 pgBon SecLutheran HospitalHC (RBC) [Mass/Vol]30.1 g/dLLow31.0 - 37.0 g/dLBon Secours St. Elizabeth HospitalV (RBC) [Entitic vol]95.4 fL80.0 - 100.0 fLBon SecSumma Health Monocytes/100 WBC (Bld)8 %3 - 12 %[facility] HospitalMonocytes/100 WBC (Bld)0.59 %Bon SecSumma HealthNeutrophils/100 WBC (Bld)56 %36 - 66 %Bon SecSumma HealthNucleated RBC/100 WBC (Bld) [Ratio]0.0 %0 per 100 WBCBon Secours Memorial Regional Medical CenterPlatelet mean volume (Bld) [Entitic vol]9.5 fL8.0 - 13.5 fL [facility] Regional Medical CenterPlatelets (Bld) [#/Vol]231 10*3/uLBon Secours Memorial Regional Medical CenterRBC (Bld) [#/Vol]3.90 10*6/uLLow4.21 - 5.77 m/uLBon [facility]ours [facility] Segmented neutrophils/100 WBC (Bld)4.31 %[facility] Regional Medical CenterWBC other (Bld) [#/Vol]7.7Bon [facility] HospitalCBC with Diffon [id number]. Basophil0.04 k/uLNormal0.00-0.20[facility] HospitalComment on above:Performed By: #### BMPX, CDP #### [facility] [address] [place] [address] Business Systems Architect: Arturo Mac DOAbs.Imm.Granulocyte0.08 k/uLNormal0.00-0.30 [facility]Com[facility] on above:Performed By: #### BMPX, CDP #### [facility] [address] [place] [address] Business Systems Architect: Arturo Mac DOAbs.Neutrophil (Seg)4.31 k/uLNormal1.50-8.10 [facility] HospitalCom[facility] on above:Performed By: #### BMPX, CDP #### [facility] [place] [address] Business Systems Architect: Arturo Mac DOBasophils/100 WBC (Bld)1 %Normal0-2MOur Lady of Mercy HospitalComascension providence hospital on above:Performed By: #### BMPX, CDP #### [facility] [address] [place] [address] Business Systems Architect: Arturo Mac DOEosinophils (Bld) [#/Vol]0.39 10*3/uLNormal 0.00-0.44[facility] on above:Performed By: #### BMPX, CDP #### [facility] [place] [address] Business Systems Architect: Arturo Mac DOEosinophils/100 WBC (Bld)5 %High0-4[facility] on above:Performed By: #### BMPX, CDP #### [facility] [address] [place] [address] Business Systems Architect: Arturo Mac DOErythrocyte distribution width (RBC) [Ratio] 14.1 %Gktkus89.5-14.9[facility] on above:Performed By: #### BMPX, CDP #### [facility] [address] [place] [address] Business Systems Architect: Arturo Mac DOHematocrit (Bld) [Volume fraction]37.2 %Low 41.0-53.0[facility] on above:Performed By: #### BMPX, CDP #### [facility] [address] [place] [address] Business Systems Architect: Arturo Mac DOHemoglobin (Bld) [Mass/Vol]11.2 g/dLLow 13.5-17.5[facility] on above:Performed By: #### BMPX, CDP #### [facility] [address] [place] [address] Business Systems Architect: Arturo Mac DOImmature granulocytes/100 WBC (Bld)1 %High0 [facility] HospitalCom[facility] on above:Performed By: #### BMPX, CDP #### [facility] [address] [place] [address] Business Systems Architect: Arturo Mac DOLymphocytes (Bld) [#/Vol]2.24 10*3/uLNormal 1.10-3.70[facility] HospitalComment on above:Performed By: #### BMPX, CDP #### [facility] [address] [place] [address] Business Systems Architect: Arturo Mac DOLymphocytes/100 WBC (Bld)29 %Urqakh26-10YgpglWvumedicine [facility] HospitalComascension providence hospital on above:Performed By: #### BMPX, CDP #### [facility] [address] [place] [address] Business Systems Architect: Arturo Mac DOMCH (RBC) [Entitic mass]28.7 pgNormal 26.0-34.0[facility] HospitalComment on above:Performed By: #### BMPX, CDP #### [facility] [address] [place] [address] Business Systems Architect: Arturo Mac DOMCHC (RBC) [Mass/Vol]30.1 g/dLLow31.0-37.0 [facility]Com[facility] on above:Performed By: #### BMPX, CDP #### [facility] [address] [place] [address] Business Systems Architect: Arturo Mac DOMCV (RBC) [Entitic vol]95.4 fLNormal 80.0-100.0[facility] HospitalCom[facility] on above:Performed By: #### BMPX, CDP #### [facility] [address] [place] [address] Business Systems Architect: Arturo Mac DOMonocytes (Bld) [#/Vol]0.59 10*3/uLNormal 0.10-1.20[facility]Com[facility] on above:Performed By: #### BMPX, CDP #### [facility] [address] [facility] [place] [address] Business Systems Architect: Arturo Mac DOMonocytes/100 WBC (Bld)8 %Normal3-12[facility] HospitalCom[facility] on above:Performed By: #### BMPX, CDP #### [facility] [facility] [place] [address] Business Systems Architect: Arturo Mac DONeutrophil (Seg)56 %Ubbkag85-63TcchhWvumedicine Barnesville HospitalComascension providence hospital on above:Performed By: #### BMPX, CDP #### [facility]0 [facility] [place] [address] Business Systems Architect: Arturo Mac DONRBC Automated0.0 per 100 ATHHnftvj6SivguWvumedicine Barnesville HospitalComascension providence hospital on above:Performed By: #### BMPX, CDP #### [facility] [address] [place] [address]. [place] [address] Business Systems Architect: Arturo Mac DOPlatelet mean volume (Bld) [Entitic vol]9.5 fLNormal8.0-13.5[facility] on above:Performed By: #### BMPX, CDP #### [facility] [address] [place] [address]. [place] [address] Business Systems Architect: Arturo Mac DOPlatelets (Bld) [#/Vol]231 10*3/uLNormal 150-450[facility] HospitalCom[facility] on above:Performed By: #### BMPX, CDP #### [facility] [facility] [place] [address] Business Systems Architect: Arturo Mac DORBC (Bld) [#/Vol]3.90 10*6/uLLow4.21-5.77 [facility] HospitalComment on above:Performed By: #### BMPX, CDP #### [facility] [address] [facility] [place] [address] Business Systems Architect: Arturo Mac DOWBC (Bld) [#/Vol]7.7 10*3/uLNormal3.5-11.0 [facility] HospitalComment on above:Performed By: #### BMPX, CDP #### [facility] [address] [facility] [place] [address] Business Systems Architect: Arturo Mac DOBasic Metabolic Panelon [id number] gap [Moles/Vol]13 mmol/L9 - 16 mmol/LBon [facility] JungleCents HealthCalcium [Mass/Vol]9.2 mg/dL8.6 - 10.4 mg/dLBon [facility]christ[facility] JungleCents HealthChloride [Moles/Vol]100 mmol/L98 - 107 mmol/LBon [facility] JungleCents [facility] HospitalCO2 [Moles/Vol]25 mmol/L20 - 31 mmol/LBon [facility] CenterVisualnet [facility] [place] [facility] HospitalCreatinine [Mass/Vol]2.0 mg/dLHigh0.7 - 1.2 mg/dLBon [facility] JungleCents HealthEst, Glom Filt Riyy30Alg- PINFBon [facility] Health InstituteComment on above: These results are not intended for use in patients <18 years of age. eGFR results are calculated without a race factor using the 2020 CKD-EPI equation. Careful clinical correlation is recommended, particularly when comparing to results calculated using previous equations. The CKD-EPI equation is less accurate in patients with extremes of muscle mass, extra-renal metabolism of creatine, excessive creatine ingestion, or following therapy that affects renal tubular secretion. Glucose [Mass/Vol]101 mg/bQPbda67 - 99 mg/dLBon [facility] Leads Direct Interpretation and review of laboratory resultsAbnormalBon [facility] Medical CenterMusic Messenger (MM) Potassium [Moles/Vol]4.7 mmol/L3.7 - 5.3 mmol/LBon SecSuperData Research [facility] [place] [facility] HospitalSodium [Moles/Vol]138 mmol/L136 - 145 mmol/LBon [facility] CenterMobile Digital MediaUrea nitrogen [Mass/Vol]44 mg/dLHigh8 - 23 mg/dLBon [facility] InstituteBon [facility] Health InstituteBasic Metabolic Profon [id number] gap [Moles/Vol]13 mmol/LNormal9-16 [facility] HospitalComment on above:Performed By: #### BMP, MG #### [facility] [address] [facility] [place] [address] Business Systems Architect: Arturo Mac DOCalcium [Mass/Vol]9.2 mg/dLNormal8.6-10.4 [facility] HospitalComment on above:Performed By: #### BMP, MG #### [facility] [address] [place] [address] Business Systems Architect: Arturo Mac DOChloride [Moles/Vol]100 mmol/PFzqzeo52-609 [facility] HospitalComment on above:Performed By: #### BMP, MG #### [facility] [address] [facility] [place] [address] Business Systems Architect: Arturo Mac DOCO2 [Moles/Vol]25 mmol/QObpgpi90-55AobcoWvumedicine Barnesville HospitalComment on above:Performed By: #### BMP, MG #### [facility]0 [facility] [place] [address] Business Systems Architect: Arturo Mac DOCreatinine [Mass/Vol]2.0 mg/dLHigh0.7-1.2 [facility] HospitalCom[facility] hospital on above:Performed By: #### DHARA, MG #### [facility]0 [place] [address] Business Systems Architect: Arturo Mac DOGFR/1.73 sq M.predicted among non-blacks MDRD (S/P/Bld) [Vol rate/Area]32 mL/min/{1.73_m2}Low>60[facility] Comment on above:Result Comment: These results are not intended for use in patients <18 years of age. eGFR results are calculated without a race factor using the 2020 CKD-EPI equation. Careful clinical correlation is recommended, particularly when comparing to results calculated using previous equations. The CKD-EPI equation is less accurate in patients with extremes of muscle mass, extra-renal metabolism of creatine, excessive creatine ingestion, or following therapy that affects renal tubular secretion.Performed By: #### BMP, MG #### [facility] [address] [place] [address] Business Systems Architect: Arturo Mac, DOGlucose [Mass/Vol]101 mg/mFZyki99-97FszfrOur Lady of Mercy HospitalComment on above:Performed By: #### BMP, MG #### [facility] [address] [place] [address] Business Systems Architect: Arturo Mac, DOPotassium [Moles/Vol]4.7 mmol/LNormal3.7-5.3 [facility] HospitalCom[facility] on above:Performed By: #### BMP, MG #### [facility] [address] [place] [address] Business Systems Architect: Arturo Mac, DOSodium [Moles/Vol]138 mmol/KXmmffn766-[address] [facility] on above:Performed By: #### BMP, MG #### [place] [address] Business Systems Architect: Arturo Mac DOUrea nitrogen [Mass/Vol]44 mg/dLHigh8-23[facility] HospitalComasc[facility] prov[facility] hospital on above:Performed By: #### BMP, MG #### [facility] [address] [place] [address] Business Systems Architect: Arturo Mac DOBasic Metab w/rfx MGon 23-32-8537Kacjt gap [Moles/Vol]9 mmol/LNormal9-16[facility] HospitalComasc[facility] prov[facility] hospital on above: Performed By: #### BMP, MG #### [facility] [address] [facility] [place] [address] Business Systems Architect: Arturo Mac DOCalcium [Mass/Vol]9.0 mg/dLNormal8.6-10.4 [facility] HospitalComment on above:Performed By: #### BMP, MG #### [facility] [address] [facility] [place] [address] Business Systems Architect: Arturo Mac DOChloride [Moles/Vol]102 mmol/YXnrrku04-294 [facility] HospitalComment on above:Performed By: #### BMP, MG #### [facility]0 [facility] [place] [address] Business Systems Architect: Arturo Mac DOCO2 [Moles/Vol]26 mmol/IVandfv13-52RpqowWvumedicine Barnesville HospitalComment on above:Performed By: #### BMP, MG #### [facility] [address] [facility] [place] [address] Business Systems Architect: Arturo Mac DOCreatinine [Mass/Vol]1.7 mg/dLHigh0.7-1.2 [facility] HospitalCom[facility] prov[facility] hospital on above:Performed By: #### BMP, MG #### [facility] [address] [place] [address]. [place] [address] Business Systems Architect: Arturo Mac DOGFR/1.73 sq M.predicted among non-blacks MDRD (S/P/Bld) [Vol rate/Area]39 mL/min/{1.73_m2}Low>60[facility] Comment on above:Result Comment: These results are not intended for use in patients <18 years of age. eGFR results are calculated without a race factor using the 2020 CKD-EPI equation. Careful clinical correlation is recommended, particularly when comparing to results calculated using previous equations. The CKD-EPI equation is less accurate in patients with extremes of muscle mass, extra-renal metabolism of creatine, excessive creatine ingestion, or following therapy that affects renal tubular secretion.Performed By: #### BMP, MG #### [facility] [address] [place] [address] Business Systems Architect: Arturo Mac DOGlucose [Mass/Vol]104 mg/xKXuam56-54MznxaOur Lady of Mercy HospitalComment on above:Performed By: #### BMP, MG #### [facility] [address] [place] [address] Business Systems Architect: Arturo Mac, DOPotassium [Moles/Vol]3.7 mmol/LNormal3.7-5.3 [facility] HospitalCom[facility] prov[facility] hospital on above:Performed By: #### BMP, MG #### [facility] [address] [place] [address] Business Systems Architect: Arturo Mac, DOSodium [Moles/Vol]137 mmol/ICgowwl053-304 [facility] HospitalComasc[facility] prov[facility] hospital on above:Performed By: #### BMP, MG #### [facility] [address] [place] [address] Business Systems Architect: Arturo Mac DOUrea nitrogen [Mass/Vol]43 mg/dLHigh8-23[facility] HospitalComasc[facility] hospital on above:Performed By: #### BMP, MG #### [facility] [address] [place] [address] Business Systems Architect: Arturo Mac DOBasic Metabolic Panel w/ Reflex to MGon [id number] gap [Moles/Vol]9 mmol/L9 - 16 mmol/LBon [facility] Calcium [Mass/Vol]9.0 mg/dL8.6 - 10.4 mg/dLBon Secours Mercy HealthChloride [Moles/Vol]102 mmol/L98 - 107 mmol/LBon Secours Mercy HealthCO2 [Moles/Vol]26 mmol/L20 - 31 mmol/LBon [facility] HealthCreatinine [Mass/Vol]1.7 mg/dLHigh 0.7 - 1.2 mg/dLBon Secours JungleCents HealthEst, Glom Filt Kzmw97Caq- PINFBon SecSumma HealthComment on above: These results are not intended for use in patients <18 years of age. eGFR results are calculated without a race factor using the 2020 CKD-EPI equation. Careful clinical correlation is recommended, particularly when comparing to results calculated using previous equations. The CKD-EPI equation is less accurate in patients with extremes of muscle mass, extra-renal metabolism of creatine, excessive creatine ingestion, or following therapy that affects renal tubular secretion. Glucose [Mass/Vol]104 mg/cICcyq44 - 99 mg/dLBon [facility]ours AthletePathy HealthPotassium [Moles/Vol]3.7 mmol/L3.7 - 5.3 mmol/LBon Secours Riverside Methodist Hospitaly HealthSodium [Moles/Vol] 137 mmol/L136 - 145 mmol/LBon [facility] HealthUrea nitrogen [Mass/Vol]43 mg/dLHigh8 - 23 mg/dLBon Secours [facility] Methodist HospitalMusic Messenger (MM)CBC auto differentialon 03-01-2025 Basophils (Bld) [#/Vol]0.04 10*3/uLBon Secours Riverside Methodist Hospitaly HealthBasophils/100 WBC (Bld)1 %0 - 2 %[facility] HealthEosinophils (Bld) [#/Vol]0.57 10*3/uLHigh [facility] HealthEosinophils/100 WBC (Bld)7 %High0 - 4 %[facility] Leads DirectErythrocyte distribution width (RBC) [Ratio]13.9 %11.5 - 14.9 %[facility] HealthHematocrit (Bld) [Volume fraction]38.2 %Low41.0 - 53.0 %[facility] HealthHemoglobin (Bld) [Mass/Vol]11.7 g/dLLow13.5 - 17.5 g/dLBon Secours [facility] HospitalImmature granulocytes (Bld) [#/Vol]0.06 10*3/uLBon Secours [facility] Leads DirectImmature granulocytes/100 WBC (Bld)1 %Ivmo9Cbu [facility] Interpretation and review of laboratory resultsAbnormalBon [facility] Lymphocytes/100 WBC (Bld)24 %24 - 44 %[facility] Medical CenterLymphocytes/100 WBC (Bld)2.01 %[facility] HospitalH (RBC) [Entitic mass]28.6 pg26.0 - 34.0 pgRiverside Shore Memorial HospitalHC (RBC) [Mass/Vol]30.6 g/dLLow31.0 - 37.0 g/dL [facility] HospitalV (RBC) [Entitic vol]93.4 fL80.0 - 100.0 fLBon Secours Memorial Regional Medical CenterMonocytes/100 WBC (Bld)14 %High3 - 12 %[facility] Monocytes/100 WBC (Bld)1.12 %[facility] Medical CenterNeutrophils/100 WBC (Bld)53 %36 - 66 %[facility] Medical CenterNucleated RBC/100 WBC (Bld) [Ratio]0.0 %0 per 100 WBCBon Secours Memorial Regional Medical CenterPlatelet mean volume (Bld) [Entitic vol]9.3 fL8.0 - 13.5 fLBon Secours Memorial Regional Medical CenterPlatelets (Bld) [#/Vol]168 10*3/uLBon [facility] Health InstituteRBC (Bld) [#/Vol]4.09 10*6/uLLow4.21 - 5.77 m/uLBon Secours Memorial Regional Medical CenterSegmented neutrophils/100 WBC (Bld)4.46 %[facility] Medical CenterWBC other (Bld) [#/Vol]8.3Bon SecA[address] [facility] Center– CudahyCBC with Diffon [id number]. Basophil0.04 k/uLNormal0.00-0.20[facility] Comment on above:Performed By: #### DHARA MG #### [facility] [address] [place] [address] Business Systems Architect: Arturo Mac DOAbs.Imm.Granulocyte0.06 k/uLNormal0.00-0.30 [facility] HospitalComment on above:Performed By: #### DHARA MG #### [facility] [place] [address] Business Systems Architect: Arturo Mac DOAbs.Neutrophil (Seg)4.46 k/uLNormal1.50-8.[address] [facility] on above:Performed By: #### BMP, MG #### [facility] [address] [place] [address] Business Systems Architect: Arturo Mac DOBasophils/100 WBC (Bld)1 %Normal0-2[facility] HospitalCom[facility] on above:Performed By: #### BMP, MG #### [facility] [address] [place] [address] Business Systems Architect: Arturo Mac DOEosinophils (Bld) [#/Vol]0.57 10*3/uLHigh 0.00-0.44[facility] HospitalComasc[facility] on above:Performed By: #### BMP, MG #### [facility] [address] [place] [address] Business Systems Architect: Arturo Mac DOEosinophils/100 WBC (Bld)7 %High0-4[facility] HospitalCom[facility] on above:Performed By: #### BMP, MG #### [facility] [address] [place] [address] Business Systems Architect: Arturo Mac DOErythrocyte distribution width (RBC) [Ratio] 13.9 %Nyiipr16.5-14.9[facility] on above:Performed By: #### BMP, MG #### [facility] [address] [place] [address] Business Systems Architect: Arturo Mac DOHematocrit (Bld) [Volume fraction]38.2 %Low 41.0-53.0[facility] HospitalCom[facility] on above:Performed By: #### BMP, MG #### [facility] [place] [address] Business Systems Architect: Arturo Mac DOHemoglobin (Bld) [Mass/Vol]11.7 g/dLLow 13.5-17.5[facility] HospitalCom[facility] on above:Performed By: #### BMP, MG #### [facility] [address] [place] [address] Business Systems Architect: Arturo Mac, DOImmature granulocytes/100 WBC (Bld)1 %High0 [facility] HospitalCom[facility] on above:Performed By: #### BMP, MG #### [facility] [address] [place] [address] Business Systems Architect: Arturo Mac, DOLymphocytes (Bld) [#/Vol]2.01 10*3/uLNormal 1.10-3.70[facility] HospitalComasc[facility] on above:Performed By: #### BMP, MG #### [facility] [address] [place] [address] Business Systems Architect: Arturo Mac, DOLymphocytes/100 WBC (Bld)24 %Sdwqhd66-93VmaooWvumedicine Barnesville HospitalComascension providence hospital on above:Performed By: #### BMP, MG #### [facility] [address] [place] [address] Business Systems Architect: Arturo Mac DOMCH (RBC) [Entitic mass]28.6 pgNormal 26.0-34.0[facility] HospitalComasc[facility] hospital on above:Performed By: #### BMP, MG #### [facility] [address] [place] [address] Business Systems Architect: Arturo Mac DOMCHC (RBC) [Mass/Vol]30.6 g/dLLow31.0-37.[address] [facility] on above:Performed By: #### BMP, MG #### [facility] [place] [address] Business Systems Architect: Arturo Mac DOMCV (RBC) [Entitic vol]93.4 fLNormal 80.0-100.0[facility] on above:Performed By: #### BMP, MG #### [facility] [address] [place] [address] Business Systems Architect: Arturo Mac DOMonocytes (Bld) [#/Vol]1.12 10*3/uLNormal 0.10-1.20[facility] on above:Performed By: #### BMP, MG #### [facility] [address] [place] [address] Business Systems Architect: Arturo Mac DOMonocytes/100 WBC (Bld)14 %High3-12[facility] on above:Performed By: #### BMP, MG #### [facility] [address] [place] [address] Business Systems Architect: Arturo Mac DONeutrophil (Seg)53 %Mdrosr29-04BmbpzMercy Health St[address] [facility] on above:Performed By: #### BMP, MG #### [facility] [address] [place] [address] Business Systems Architect: Arturo Mac DONRBC Automated0.0 per [address] [facility] on above:Performed By: #### BMP, MG #### [facility] [address] [place] [address] Business Systems Architect: Arturo Mac DOPlatelet mean volume (Bld) [Entitic vol]9.3 fLNormal8.0-13.5[facility] on above:Performed By: #### BMP, MG #### [facility] [address] [facility] [place] [address] Business Systems Architect: Arturo Mac DOPlatelets (Ferd) [#/Vol]168 10*3/uLNormal 150-450[facility] HospitalComment on above:Performed By: #### BMP, MG #### [facility] [address] [facility] [place] [address] Business Systems Architect: Arturo Mac DORBC (Ferd) [#/Vol]4.09 10*6/uLLow4.21-5.[address] [facility] on above:Performed By: #### BMP, MG #### [facility] [address] [facility] [place] [address] Business Systems Architect: Arturo Mac DOWBC (Julian) [#/Vol]8.3 10*3/uLNormal3.5-11.0 [facility] HospitalCom[facility] on above:Performed By: #### BMP, MG #### [facility] [facility] [place] [address] Business Systems Architect: Arturo Mac DOHepatic Function Panelon [id number] [Mass/Vol]3.2 g/dLLow3.5 - 5.2 g/dLBon SecPrairieville Family Hospital HealthALP [Catalytic activity/Vol]77 U/L40 - 129 U/LBon Secours Riverside Methodist Hospitaly HealthALT [Catalytic activity/Vol]U/LLow10 - 50 U/LBon Secours [facility] Hospitaly HealthAST [Catalytic activity/Vol]23 U/L10 - 50 U/LBon Secours [facility] Hospitaly HealthBilirubin [Mass/Vol]0.6 mg/dL0.0 - 1.2 mg/dLBon Secours [facility] Hospitaly HealthBilirubin.direct [Mass/Vol]0.2 mg/dL 0.0 - 0.3 mg/dLBon Secours [facility] Hospitaly HealthBilirubin.indirect [Mass/Vol]0.4 mg/dL0.0 - 1.0 mg/dLBon [facility] Health InstituteProtein [Mass/Vol]6.4 g/dLLow6.6 - 8.7 g/dL Bon Riverview Health InstituteLiver Profileon [id number] [Mass/Vol]3.2 g/dLLow 3.5-5.2[facility] HospitalComment on above:Performed By: #### BMP, MG #### [facility] [address] [place] [address] Business Systems Architect: Arturo Mac DOAlkaline Phos77 U/SXtcaqv06-967BwwfgWvumedicine [facility]ville HospitalComascension providence hospital on above:Performed By: #### BMP, MG #### [facility] [address] [place] [address] Business Systems Architect: Arturo Mac DOALT [Catalytic activity/Vol]U/BOxf39-81ZrvejWvumedicine Barnesville HospitalComascension providence hospital on above:Performed By: #### BMP, MG #### [facility] [address] [place] [address] Business Systems Architect: Arturo Mca DOAST [Catalytic activity/Vol]23 U/DObndxu48-26 [facility] HospitalComasc[facility] on above:Performed By: #### BMP, MG #### [facility] [address] [place] [address] Business Systems Architect: Arturo Mac DOBilirubin [Mass/Vol]0.6 mg/dLNormal0.0-1.2 [facility] HospitalComasc[facility] on above:Performed By: #### BMP, MG #### [facility] [address] [place] [address] Business Systems Architect: Arturo Mac DOBilirubin, Indirect0.4 mg/dLNormal0.0-1.0 [facility] HospitalComasc[facility] on above:Performed By: #### BMP, MG #### [facility] [address] [facility] [place] [address] Business Systems Architect: Arturo Mac DOBilirubin.indirect [Mass/Vol]0.2 mg/dLNormal 0.0-0.3[facility] Memorial HospitalComment on above:Performed By: #### BMP, MG #### [facility] [address] [facility] [place] [address] Business Systems Architect: Arturo Mac DOProtein [Mass/Vol]6.4 g/dLLow6.6-8.7Mer[facility] Memorial HospitalComment on above:Performed By: #### BMP, MG #### [facility] [address] [facility] [place] [address] Business Systems Architect: Arturo Mac DONo Panel Informationon 03-01-2025 Interpretation and review of laboratory resultsAbnormalBon [facility] CHEST WO CONTRASTon [id number] CHEST WO CONTRAST EXAM: CT CHEST WITHOUT CONTRAST 02/28/2025 09:11:24 AM TECHNIQUE: CT of the chest was performed without the administration of intravenous contrast. Multiplanar reformatted images are provided for review. Automated exposure control, iterative reconstruction, and/or weight based adjustment of the mA/kV was utilized to reduce the radiation dose to as low as reasonably achievable. COMPARISON: None available. CLINICAL HISTORY: Soft tissue gas ? FINDINGS: MEDIASTINUM AND LYMPH NODES: Status post CABG (coronary artery bypass graft). Moderate hiatal hernia. Incompletely characterizedlesion of the pancreatic tail measuring 2.4 cm on series 2 image 124. No soft tissue gas. LUNGS AND PLEURA: No focal consolidation or pulmonary edema. No pleural effusion or pneumothorax. SOFT TISSUES/BONES: No acute abnormality of the bones or soft tissues. UPPER ABDOMEN: Limited images of the upper abdomen demonstrates no acute abnormality. IMPRESSION: 1. No soft tissue gas. 2. 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 Recommend prompt, nonemergent pancreatic MRI. Interpreted by: Destin Barba MD Signed by: Destin Barba MD 02/28/25 Final resultNormalMercy Community Memorial HospitalCT Chest WO contraston . No soft tissue gas. 2. 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 Recommend prompt, nonemergent pancreatic MRI. [facility] CONSOLIDATEDEXAM: CT CHEST WITHOUT CONTRAST 02/28/2025 09:11:24 AM TECHNIQUE: CT of the chest was performed without the administration of intravenous contrast. Multiplanar reformatted images are provided for review. Automated exposure control, iterative reconstruction, and/or weight based adjustment of the mA/kV was utilized to reduce the radiation dose to as low as reasonably achievable. COMPARISON: None available. CLINICAL HISTORY: Soft tissue gas ? FINDINGS: MEDIASTINUM AND LYMPH NODES: Status post CABG (coronary artery bypass graft). Moderate hiatal hernia. Incompletely characterizedlesion of the pancreatic tail measuring 2.4 cm on series 2 image 124. No soft tissue gas. LUNGS AND PLEURA: No focal consolidation or pulmonary edema. No pleural effusion or pneumothorax. SOFT TISSUES/BONES: No acute abnormality of the bones or soft tissues. UPPER ABDOMEN: Limited images of the upper abdomen demonstrates no acute abnormality. [facility] Destin Roy MD - 02/28/2025 EXAM: CT CHEST WITHOUT CONTRAST 02/28/2025 09:11:24 AM TECHNIQUE: CT of the chest was performed without the administration of intravenous contrast. Multiplanar reformatted images are provided for review. Automated exposure control, iterative reconstruction, and/or weight based adjustment of the mA/kV was utilized to reduce the radiation dose to as low as reasonably achievable. COMPARISON: None available. CLINICAL HISTORY: Soft tissue gas ? FINDINGS: MEDIASTINUM AND LYMPH NODES: Status post CABG (coronary artery bypass graft). Moderate hiatal hernia. Incompletely characterizedlesion of the pancreatic tail measuring 2.4 cm on series 2 image 124. No soft tissue gas. LUNGS AND PLEURA: No focal consolidation or pulmonary edema. No pleural effusion or pneumothorax. SOFT TISSUES/BONES: No acute abnormality of the bones or soft tissues. UPPER ABDOMEN: Limited images of the upper abdomen demonstrates no acute abnormality. IMPRESSION: 1. No soft tissue gas. 2. 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 Recommend prompt, nonemergent pancreatic MRI. [facility] CenterRadiology Study observation (narrative)[facility] CenterCT Chest WO contrastOrdered By: Destin Barba on [id number] [facility] Work Phone: Basic Metab w/rfx MGon [id number] gap [Moles/Vol] 11 mmol/LNormal9-16[facility] HospitalComment on above:Performed By: #### BMP, MG #### [facility] [address] [place] [address] Business Systems Architect: Arturo Mac DOCalcium [Mass/Vol]8.6 mg/dLNormal8.6-10.4 [facility] HospitalComment on above:Performed By: #### BMP, MG #### [facility] [address] [place] [address] Business Systems Architect: Arturo Mac DOChloride [Moles/Vol]103 mmol/QJvohgb20-866 [facility] HospitalComment on above:Performed By: #### BMP, MG #### [facility] [place] [address] Business Systems Architect: Arturo Mac DOCO2 [Moles/Vol]25 mmol/IRoknbk85-25QgtxwWvumedicine Barnesville HospitalComment on above:Performed By: #### BMP, MG #### [facility] [address] [place] [address] Business Systems Architect: Arturo Mac DOCreatinine [Mass/Vol]1.8 mg/dLHigh0.7-1.2 [facility] HospitalComascension [facility] hospital on above:Performed By: #### BMP, MG #### [facility] [address] [place] [address] Business Systems Architect: Arturo Mac, DOGFR/1.73 sq M.predicted among non-blacks MDRD (S/P/Bld) [Vol rate/Area]36 mL/min/{1.73_m2}Low>60[facility] Comment on above:Result Comment: These results are not intended for use in patients <18 years of age. eGFR results are calculated without a race factor using the 2020 CKD-EPI equation. Careful clinical correlation is recommended, particularly when comparing to results calculated using previous equations. The CKD-EPI equation is less accurate in patients with extremes of muscle mass, extra-renal metabolism of creatine, excessive creatine ingestion, or following therapy that affects renal tubular secretion.Performed By: #### BMP, MG #### [facility] [place] [address] Business Systems Architect: Arturo Mac DOGlucose [Mass/Vol]158 mg/qFZdnl08-19FjyroOur Lady of Mercy HospitalComment on above:Performed By: #### BMP, MG #### [facility] [address] [place] [address] Business Systems Architect: Arturo Mac, DOPotassium [Moles/Vol]3.7 mmol/LNormal3.7-5.3 [facility] HospitalComment on above:Performed By: #### BMP, MG #### [facility] [address] [place] [address] Business Systems Architect: Arturo Mac, DOSodium [Moles/Vol]139 mmol/REthzdf752-949 [facility] HospitalComascension providence hospital on above:Performed By: #### BMP, MG #### [facility] [address] [place] [address] Business Systems Architect: Arturo Mac DOUrea nitrogen [Mass/Vol]37 mg/dLPrinceton Community Hospital8-23[facility] HospitalComascension providence hospital on above:Performed By: #### BMP, MG #### [facility] [address] [place] [address] Business Systems Architect: Arturo Mac DOBasic Metabolic Panel w/ Reflex to MGon [id number] gap [Moles/Vol]11 mmol/L9 - 16 mmol/LBon [facility] Calcium [Mass/Vol]8.6 mg/dL8.6 - 10.4 mg/dLBon [facility] InstituteChloride [Moles/Vol]103 mmol/L98 - 107 mmol/LBon [facility] InstituteCO2 [Moles/Vol]25 mmol/L20 - 31 mmol/LBon [facility] InstituteCreatinine [Mass/Vol]1.8 mg/dLHigh 0.7 - 1.2 mg/dLBon [facility] InstituteEst, Glom Filt Aehh83Mec- PINFBon [facility] InstituteComment on above: These results are not intended for use in patients <18 years of age. eGFR results are calculated without a race factor using the 2020 CKD-EPI equation. Careful clinical correlation is recommended, particularly when comparing to results calculated using previous equations. The CKD-EPI equation is less accurate in patients with extremes of muscle mass, extra-renal metabolism of creatine, excessive creatine ingestion, or following therapy that affects renal tubular secretion. Glucose [Mass/Vol]158 mg/nYVncy78 - 99 mg/dLBon [facility] Interpretation and review of laboratory resultsAbnormalBon [facility] Potassium [Moles/Vol]3.7 mmol/L3.7 - 5.3 mmol/LBon [facility] InstituteSodium [Moles/Vol]139 mmol/L136 - 145 mmol/LBon [facility] InstituteUrea nitrogen [Mass/Vol]37 mg/dLHigh8 - 23 mg/dLBon [facility] HospitalCBC with Auto Differentialon [id number] (Bld) [#/Vol]0.03 10*3/uL [facility] CenterBasophils/100 WBC (Bld)0 %0 - 2 %[facility] Medical CenterEosinophils (Bld) [#/Vol]0.36 10*3/uLBon Secours [facility] Center Eosinophils/100 WBC (Bld)4 %0 - 4 %[facility] Medical CenterErythrocyte distribution width (RBC) [Ratio]14.1 %11.5 - 14.9 %[facility] Hematocrit (Bld) [Volume fraction]37.6 %Low41.0 - 53.0 %Bon [facility] Hemoglobin (Bld) [Mass/Vol]11.7 g/dLLow13.5 - 17.5 g/dLBon [facility] Immature granulocytes (Bld) [#/Vol]0.04 10*3/uLBon SecSumma HealthImmature granulocytes/100 WBC (Bld)0 %0Bon [facility] InstituteInterpretation and review of laboratory resultsAbnormalBon [facility] InstituteLymphocytes/100 WBC (Bld)16 %Low24 - 44 %Bon SecSumma HealthLymphocytes/100 WBC (Bld)1.46 %Bon [facility] CenterH (RBC) [Entitic mass]29.5 pg26.0 - 34.0 pgBon [facility] North Health CenterHC (RBC) [Mass/Vol]31.1 g/dL31.0 - 37.0 g/dLBon [facility] InstituteMCV (RBC) [Entitic vol]94.7 fL80.0 - 100.0 fLBon [facility] InstituteMonocytes/100 WBC (Bld)8 %3 - 12 %[facility] CenterMonocytes/100 WBC (Bld)0.77 %[facility] CenterNeutrophils/100 WBC (Bld)72 %High36 - 66 %Bon [facility] InstituteNucleated RBC/100 WBC (Bld) [Ratio]0.0 %0 per 100 WBCBon [facility] Health InstitutePlatelet mean volume (Bld) [Entitic vol]9.3 fL8.0 - 13.5 fLBon [facility] InstitutePlatelets (Bld) [#/Vol]153 10*3/uLBon SecPrairieville Family Hospital HealthRBC (Bld) [#/Vol]3.97 10*6/uLLow4.21 - 5.77 m/uLBon [facility] InstituteSegmented neutrophils/100 WBC (Bld)6.68 %Bon [facility] InstituteWBC other (Bld) [#/Vol] 9.3Bon SecMagruder Hospital SecSumma HealthCBC with Diffon 02-27-2025 Abs. Basophil0.03 k/uLNormal0.00-0.20[facility] HospitalComascension providence hospital on above: Performed By: #### BMP, MG #### [facility] [address] [place] [address] Business Systems Architect: Arturo Mac DOAbs.Imm.Granulocyte0.04 k/uLNormal0.00-0.30 [facility] HospitalComascension providence hospital on above:Performed By: #### BMP, MG #### [facility] [address] [place] [address] Business Systems Architect: Arturo Mac DOAbs.Neutrophil (Seg)6.68 k/uLNormal1.50-8.10 [facility] HospitalComascension providence hospital on above:Performed By: #### BMP, MG #### [facility] [address] [place] [address] Business Systems Architect: Arturo Mac DOBasophils/100 WBC (Bld)0 %Normal0-2[facility] systemy [facility] HospitalComascension prov[facility] hospital on above:Performed By: #### DHARA, MG #### [facility] [address] [place] [address] Business Systems Architect: Arturo Mac DOEosinophils (Bld) [#/Vol]0.36 10*3/uLNormal 0.00-0.44[facility] HospitalComascension providence hospital on above:Performed By: #### BMP, MG #### [facility] [address] [place] [address] Business Systems Architect: Arturo Mac DOEosinophils/100 WBC (Bld)4 %Normal0-4[facility] HospitalComascension providence hospital on above:Performed By: #### BMP, MG #### [facility] [address] [place] [address] Business Systems Architect: Arturo Mac DOErythrocyte distribution width (RBC) [Ratio] 14.1 %Ayfbfp54.5-14.9[facility] on above:Performed By: #### BMP, MG #### [facility] [place] [address] Business Systems Architect: Arturo Mac, DOHematocrit (Bld) [Volume fraction]37.6 %Low 41.0-53.0[facility] on above:Performed By: #### BMP, MG #### [facility] [address] [place] [phone] Business Systems Architect: Arturo Mac DOHemoglobin (Bld) [Mass/Vol]11.7 g/dLLow 13.5-17.5[facility] HospitalComascension providence hospital on above:Performed By: #### BMP, MG #### [facility] [address] [place] [address] Business Systems Architect: Arturo Mac DOImmature granulocytes/100 WBC (Bld)0 %Normal[address] [facility] on above:Performed By: #### BMP, MG #### [facility] [address] [place] [address] Business Systems Architect: Arturo Mac DOLymphocytes (Bld) [#/Vol]1.46 10*3/uLNormal 1.10-3.70[facility] on above:Performed By: #### BMP, MG #### [facility] [address] [place] [address] Business Systems Architect: Arturo Mac DOLymphocytes/100 WBC (Bld)16 %Pfk52-50ZskxmMercy Health St[facility] on above:Performed By: #### BMP, MG #### [facility] [address] [place] [address] Business Systems Architect: Arturo Mac DOMCH (RBC) [Entitic mass]29.5 pgNormal 26.0-34.0[facility] HospitalComascension providence hospital on above:Performed By: #### BMP, MG #### [facility] [address] [place] [address] Business Systems Architect: Arturo Mac DOMCHC (RBC) [Mass/Vol]31.1 g/dZWfybue48.0-37.[address] [facility] on above:Performed By: #### BMP, MG #### [facility] [address] [place] [address] Business Systems Architect: Arturo Mac DOMCV (RBC) [Entitic vol]94.7 fLNormal 80.0-100.0[facility] HospitalComascension providence hospital on above:Performed By: #### BMP, MG #### [facility] [address] [place] [address] Business Systems Architect: Arturo Mac DOMonocytes (Bld) [#/Vol]0.77 10*3/uLNormal 0.10-1.20[facility] on above:Performed By: #### BMP, MG #### [facility] [address] [place] [address] Business Systems Architect: Arturo Mac DOMonocytes/100 WBC (Bld)8 %Normal3-12[facility] HospitalComasc[facility] prov[facility] hospital on above:Performed By: #### BMP, MG #### [facility] [address] [place] [address] Business Systems Architect: Arturo Mac DONeutrophil (Seg)72 %Flzo97-43KyaqqWvumedicine Barnesville HospitalComascension providence hospital on above:Performed By: #### BMP, MG #### [facility] [address] [place] [address] Business Systems Architect: Arturo Mac DONRBC Automated0.0 per 100 MBSIbhlmo5HdybuWvumedicine Barnesville HospitalComascension providence hospital on above:Performed By: #### BMP, MG #### [facility] [address] [facility] [place] [address] Business Systems Architect: Arturo Mac DOPlatelet mean volume (Bld) [Entitic vol]9.3 fLNormal8.0-13.5[facility] HospitalComascension providence hospital on above:Performed By: #### BMP, MG #### [facility] [facility] [place] [address] Business Systems Architect: Arturo Mac DOPlatelets (Bld) [#/Vol]153 10*3/uLNormal 150-450[facility] HospitalComascension providence hospital on above:Performed By: #### DHARA, MG #### [facility] [facility] [place] [address] Business Systems Architect: Arturo Mac DORBC (Bld) [#/Vol]3.97 10*6/uLLow4.21-5.[address] [facility] on above:Performed By: #### DHARA, MG #### [facility] [facility] [place] [address] Business Systems Architect: Arturo Mac DOWBC (Bld) [#/Vol]9.3 10*3/uLNormal3.5-11.[address] [facility] on above:Performed By: #### DHARA, MG #### [facility] [address] [place] [address]. [place] [address] Business Systems Architect: Arturo Mac DOUS Kidney limitedon [id number] unremarkable renal ultrasound. No hydronephrosis. Left kidney is not as well seen as the right. [facility]PN [facility] CONSOLIDATEDEXAMINATION: ULTRASOUND OF THE KIDNEYS 02/27/2025 10:20 am COMPARISON: None. HISTORY: ORDERING SYSTEM PROVIDED HISTORY: aniya TECHNOLOGIST PROVIDED HISTORY: aniya FINDINGS: Left kidney is not as well seen as the right. The right kidney measures 10.3 x 5.8 x 5.6 cm. Left kidney measures 10.4 x 5.7 x 5.4 cm. The right kidney is essentially isoechoic to the adjacent liver. No hydronephrosis or intrarenal stones. No focal lesions. [facility] Raimundo Stafford MD - 02/27/2025 EXAMINATION: ULTRASOUND OF THE KIDNEYS 02/27/2025 10:20 am COMPARISON: None. HISTORY: ORDERING SYSTEM PROVIDED HISTORY: aniya TECHNOLOGIST PROVIDED HISTORY: aniya FINDINGS: Left kidney is not as well seen as the right. The right kidney measures 10.3 x 5.8 x 5.6 cm. Left kidney measures 10.4 x 5.7 x 5.4 cm. The right kidney is essentially isoechoic to the adjacent liver. No hydronephrosis or intrarenal stones. No focal lesions. IMPRESSION: Essentially unremarkable renal ultrasound. No hydronephrosis. Left kidney is not as well seen as the right. [facility] CenterRadiology Study observation (narrative)[facility] Kidney limitedOrdered By: Raimundo Ronquillo on [id number] [facility] Medical CenterMusic Messenger (MM) Work Phone: us RENAL LIMITEDon [id number] RENAL LIMITED EXAMINATION: ULTRASOUND OF THE KIDNEYS 02/27/2025 10:20 am COMPARISON: None. HISTORY: ORDERING SYSTEM PROVIDED HISTORY: aniya TECHNOLOGIST PROVIDED HISTORY: aniya FINDINGS: Left kidney is not as well seen as the right. The right kidney measures 10.3 x 5.8 x 5.6 cm. Left kidney measures 10.4 x 5.7 x 5.4 cm. The right kidney is essentially isoechoic to the adjacent liver. No hydronephrosis or intrarenal stones. No focal lesions. IMPRESSION: Essentially unremarkable renal ultrasound. No hydronephrosis. Left kidney is not as well seen as the right. Interpreted by: Raimundo Ronquillo MD Signed by: Raimundo Ronquillo MD 02/27/25 Final resultNormalMercy Community Memorial HospitalBasic Metab w/rfx MGon 02-26-2025 Anion gap [Moles/Vol]13 mmol/LNormal9-16[facility] HospitalComment on above:Performed By: #### MANNY, BMPX #### [facility] [address] [facility] [place] [address] Business Systems Architect: Arturo Mac DOCalcium [Mass/Vol]8.8 mg/dLNormal8.6-10.4 [facility] HospitalComment on above:Performed By: #### MANNY, BMPX #### [facility] [address] [facility] [place] [address] Business Systems Architect: Arturo Mac DOChloride [Moles/Vol]104 mmol/MJpsybe21-041 [facility] HospitalComment on above:Performed By: #### MANNY, BMPX #### [facility] [address] [facility] [place] [address] Business Systems Architect: Arturo Mac DOCO2 [Moles/Vol]25 mmol/DGlduji12-16CzouiWvumedicine Barnesville HospitalComment on above:Performed By: #### MANNY, BMPX #### [facility] [address] [facility] [place] [address] Business Systems Architect: Arturo Mac DOCreatinine [Mass/Vol]2.1 mg/dLHigh0.7-1.2 [facility] HospitalComascension providence hospital on above:Performed By: #### MANNY, BMPX #### [facility] [address] [place] [address] Business Systems Architect: Arturo Mac DOGFR/1.73 sq M.predicted among non-blacks MDRD (S/P/Bld) [Vol rate/Area]30 mL/min/{1.73_m2}Low>60[facility] Comment on above:Result Comment: These results are not intended for use in patients <18 years of age. eGFR results are calculated without a race factor using the 2020 CKD-EPI equation. Careful clinical correlation is recommended, particularly when comparing to results calculated using previous equations. The CKD-EPI equation is less accurate in patients with extremes of muscle mass, extra-renal metabolism of creatine, excessive creatine ingestion, or following therapy that affects renal tubular secretion.Performed By: #### CDP, BMPX #### [facility] [address] [place] [id number] Business Systems Architect: Arturo Mac DOGlucose [Mass/Vol]133 mg/nBBode37-49QbgfrOur Lady of Mercy HospitalComascension providence hospital on above:Performed By: #### MANNY, BMPX #### [facility] [address] [place] [address] Business Systems Architect: Arturo Mac, DOPotassium [Moles/Vol]3.7 mmol/LNormal3.7-5.3 [facility] HospitalComascension providence hospital on above:Performed By: #### MANNY, BMPX #### [facility] [address] [place] [address]. [place] [address] Business Systems Architect: Arturo Mac DOSodium [Moles/Vol]142 mmol/BAuozks440-499 [facility] HospitalComascension providence hospital on above:Performed By: #### MANNY, BMPX #### [address] [address] Business Systems Architect: Arturo Mac DOUrea nitrogen [Mass/Vol]44 mg/dLPrinceton Community Hospital8-23[facility] on above:Performed By: #### MANNY, BMPX #### [facility] [address] [place] [address] Business Systems Architect: Arturo Mac DOBasic Metabolic Panel w/ Reflex to MGon [id number] gap [Moles/Vol]13 mmol/L9 - 16 mmol/LBon [facility] Calcium [Mass/Vol]8.8 mg/dL8.6 - 10.4 mg/dLBon [facility] Health InstituteChloride [Moles/Vol]104 mmol/L98 - 107 mmol/LBon [facility] InstituteCO2 [Moles/Vol]25 mmol/L20 - 31 mmol/LBon [facility] InstituteCreatinine [Mass/Vol]2.1 mg/dLHigh 0.7 - 1.2 mg/dLBon [facility] Health InstituteEst, Glom Filt Cils46Fsa- PINFBon [facility] Health InstituteComment on above: These results are not intended for use in patients <18 years of age. eGFR results are calculated without a race factor using the 2020 CKD-EPI equation. Careful clinical correlation is recommended, particularly when comparing to results calculated using previous equations. The CKD-EPI equation is less accurate in patients with extremes of muscle mass, extra-renal metabolism of creatine, excessive creatine ingestion, or following therapy that affects renal tubular secretion. Glucose [Mass/Vol]133 mg/cEJtkw33 - 99 mg/dLBon [facility] Interpretation and review of laboratory resultsAbnormalBon [facility] Center Potassium [Moles/Vol]3.7 mmol/L3.7 - 5.3 mmol/LBon [facility] InstituteSodium [Moles/Vol]142 mmol/L136 - 145 mmol/LBon [facility] Health InstituteUrea nitrogen [Mass/Vol]44 mg/dLHigh8 - 23 mg/dLBon [facility] HospitalCBC with Diffon [id number]. Basophil0.04 k/uLNormal0.00-0.20[facility] HospitalComascension providence hospital on above:Performed By: #### MANNY, BMPX #### [facility] [address] [facility] [place] [address] Business Systems Architect: Arturo Mac DOAbs.Imm.Granulocyte0.04 k/uLNormal0.00-0.[address] [facility] on above:Performed By: #### MANNY, BMPX #### [facility] [address] [place] [address] Business Systems Architect: Fanelly, Arturo, DOAbs.Neutrophil (Seg)7.12 k/uLNormal1.50-8.[address] [facility] on above:Performed By: #### MANNY, BMPX #### [facility] [place] [address] Business Systems Architect: Arturo Mac DOBasophils/100 WBC (Bld)0 %Normal0-2MOur Lady of Mercy HospitalComascension providence hospital on above:Performed By: #### MANNY, BMPX #### [facility] [address] [place] [address] Business Systems Architect: Arturo Mac DOEosinophils (Bld) [#/Vol]0.23 10*3/uLNormal 0.00-0.44[facility] on above:Performed By: #### MANNY, BMPX #### [facility] [address] [place] [address] Business Systems Architect: Arturo Mac DOEosinophils/100 WBC (Bld)2 %Normal0-4[facility] on above:Performed By: #### MANNY, BMPX #### [facility] [address] [place] [address] Business Systems Architect: Arturo Mac DOErythrocyte distribution width (RBC) [Ratio] 14.3 %Pcxvrg72.5-14.9[facility] on above:Performed By: #### MANNY, BMPX #### [facility] [address] [place] [address] Business Systems Architect: Arturo Mac DOHematocrit (Bld) [Volume fraction]40.6 %Low 41.0-53.0[facility] on above:Performed By: #### MANNY, BMPX #### [facility] [address] [place] [address] Business Systems Architect: Arturo Mac DOHemoglobin (Bld) [Mass/Vol]12.5 g/dLLow 13.5-17.5[facility] on above:Performed By: #### MANNY, BMPX #### [facility] [address] [place] [address] Business Systems Architect: Arturo Mac DOImmature granulocytes/100 WBC (Bld)0 %Normal[address] [facility] on above:Performed By: #### MANNY, BMPX #### [facility] [address] [place] [address] Business Systems Architect: Arturo Mac DOLymphocytes (Bld) [#/Vol]1.36 10*3/uLNormal 1.10-3.70[facility] on above:Performed By: #### MANNY, BMPX #### [facility] [address] [place] [address] Business Systems Architect: Arturo Mac DOLymphocytes/100 WBC (Bld)14 %Vgt76-64QedbmMercy Health St. [facility] on above:Performed By: #### MANNY, BMPX #### [facility] [address] [place] [address] Business Systems Architect: Arturo Mac DOMCH (RBC) [Entitic mass]28.9 pgNormal 26.0-34.0[facility] on above:Performed By: #### MANNY, BMPX #### [facility] [address] [place] [address] Business Systems Architect: Arturo Mac DOMCHC (RBC) [Mass/Vol]30.8 g/dLLow31.0-37.[address] [facility] on above:Performed By: #### MANNY, BMPX #### [facility] [address] [place] [address], [place] [address] Business Systems Architect: Arturo Mac DOMCV (RBC) [Entitic vol]94.0 fLNormal 80.0-100.0[facility] on above:Performed By: #### CDP, BMPX #### [facility] [facility] [place] [address] Business Systems Architect: Arturo Mac DOMonocytes (Bld) [#/Vol]1.03 10*3/uLNormal 0.10-1.20[facility] on above:Performed By: #### CDP, BMPX #### [facility] [address] [place] [address]. [place] [address] Business Systems Architect: Arturo Mac DOMonocytes/100 WBC (Bld)11 %Normal3-12[facility] on above:Performed By: #### CDP, BMPX #### [facility] [address] [place] [address]. [place] [address] Business Systems Architect: Arturo Mac DONeutrophil (Seg)73 %Hdez77-08BdrklMercy Health St. [facility] on above:Performed By: #### MANNY, BMPX #### [facility] [address] [place] [address] Business Systems Architect: Arturo Mac DONRBC Automated0.0 per [address] [facility] on above:Performed By: #### CDP, BMPX #### [facility] [address] [place] [address]. [place] [address] Business Systems Architect: Arturo Mac DOPlatelet mean volume (Bld) [Entitic vol]9.5 fLNormal8.0-13.5[facility] on above:Performed By: #### CDP, BMPX #### [facility] [address] [facility] [place] [address] Business Systems Architect: Arturo Mac DOPlatelets (Bld) [#/Vol]174 10*3/uLNormal 150-450[facility] HospitalComasc[facility] on above:Performed By: #### CDP, BMPX #### [facility] [address] [facility] [place] [address] Business Systems Architect: Arturo Mac DORBC (Bld) [#/Vol]4.32 10*6/uLNormal4.21-5.[address] [facility] on above:Performed By: #### CDP, BMPX #### [facility] [address] [facility] [place] [address] Business Systems Architect: Arturo Mac DOWBC (Bld) [#/Vol]9.8 10*3/uLNormal3.5-11.[address] [facility] on above:Performed By: #### CDP, BMPX #### [facility] [address] [facility] [place] [address] Business Systems Architect: Arturo Mac DOCBC with auto differentialon 02-26-2025 Basophils (Bld) [#/Vol]0.04 10*3/uLBon Secours Mercy HealthBasophils/100 WBC (Bld)0 %0 - 2 %[facility] HealthEosinophils (Bld) [#/Vol]0.23 10*3/uLBon Secours Mercy HealthEosinophils/100 WBC (Bld)2 %0 - 4 %[facility] Erythrocyte distribution width (RBC) [Ratio]14.3 %11.5 - 14.9 %[facility] HealthHematocrit (Bld) [Volume fraction]40.6 %Low41.0 - 53.0 %[facility] HealthHemoglobin (Bld) [Mass/Vol]12.5 g/dLLow13.5 - 17.5 g/dLBon Secours Mercy HealthImmature granulocytes (Bld) [#/Vol]0.04 10*3/uLBon [facility] Immature granulocytes/100 WBC (Bld)0 %0Bon [facility] InstituteInterpretation and review of laboratory resultsAbnormalBon [facility] Health InstituteLymphocytes/100 WBC (Bld)14 %Low24 - 44 %Bon [facility] Health InstituteLymphocytes/100 WBC (Bld)1.36 % [facility] HospitalH (RBC) [Entitic mass]28.9 pg26.0 - 34.0 pgBon [facility] North Health CenterHC (RBC) [Mass/Vol]30.8 g/dLLow31.0 - 37.0 g/dLBon SecLutheran HospitalV (RBC) [Entitic vol]94.0 fL80.0 - 100.0 fLBon Secours [facility] Monocytes/100 WBC (Bld)11 %3 - 12 %[facility] CenterMonocytes/100 WBC (Bld)1.03 %[facility] Medical CenterNeutrophils/100 WBC (Bld)73 %High36 - 66 %[facility] Medical CenterNucleated RBC/100 WBC (Bld) [Ratio]0.0 %0 per 100 WBCBon Secours Memorial Regional Medical CenterPlatelet mean volume (Bld) [Entitic vol]9.5 fL8.0 - 13.5 fL [facility] Medical CenterPlatelets (Bld) [#/Vol]174 10*3/uLBon [facility]view Health InstituteRBC (Bld) [#/Vol]4.32 10*6/uL4.21 - 5.77 m/uLBon [facility]ours [facility] Segmented neutrophils/100 WBC (Bld)7.12 %[facility] Medical CenterWBC other (Bld) [#/Vol]9.8Bon SecA[address] [address]– CudahyComp Met+Bili/rfx MG on 64-63-2306Jzkxalh [Mass/Vol]3.4 g/dLLow3.5-5.2[facility] Comment on above:Performed By: #### PTHNANCI, VD25 #### [facility] [address] [place] [address] Business Systems Architect: Alvarado Prasad MD #### CLAIRE, CPBILX #### [facility] [address] [place] [address] Business Systems Architect: Arturo Mac DOAlkadrien Phos81 U/FSweskd85-334VsmqcMercy Health St. [facility] on above:Performed By: #### PTHNCWillian, VD25 #### [address] [address] Business Systems Architect: Alvarado Prasad MD #### CLAIRE, CPBILX #### [facility] [address] [place] [address] Business Systems Architect: Arturo Mac DOALT [Catalytic activity/Vol]5 U/YXlr35-[address] [facility] on above:Performed By: #### LISA VD25 #### [address] [address] Business Systems Architect: Alvarado Prasad MD #### CLAIRE, CPBILX #### [facility] [address] [place] [address] Business Systems Architect: Arturo Mac DOAnion gap [Moles/Vol]12 mmol/LNormal9-16[facility] on above:Performed By: #### LISA, VD25 #### [address] [address] Business Systems Architect: Alvarado Prasad MD #### CLAIRE, CPBILX #### [facility] [address] [place] [address] Business Systems Architect: Arturo Mac DOAST [Catalytic activity/Vol]26 U/SCtfive89-[address] [facility] on above:Performed By: #### RANDYNCWillian, VD25 #### [address] [place] [address] Business Systems Architect: Alvarado Prasad MD #### CLAIRE, CPBILX #### [facility] [address] [place] [address] Business Systems Architect: Arturo Mac, DOBilirubin [Mass/Vol]0.3 mg/dLNormal0.0-1.2 [facility] HospitalComment on above:Performed By: #### PTHNCA, VD25 #### [facility] [address] [place] [address] Business Systems Architect: Alvarado Prasad MD #### CLAIRE, CPBILX #### [facility] [address] [place] [address] Business Systems Architect: Arturo Mac DOBilirubin, Indirect0.2 mg/dLNormal0.0-1.[address] [facility] on above:Performed By: #### PTHNCA, VD25 #### [address] [address] Business Systems Architect: Alvarado Prasad MD #### CLAIRE, CPBILX #### [facility] [address] [place] [address] Business Systems Architect: Arturo Mac DOBilirubin.indirect [Mass/Vol]0.1 mg/dLNormal 0.0-0.3[facility] systemy [facility] HospitalCom[facility] on above:Performed By: #### PTHNCA, VD25 #### [address] [address] Business Systems Architect: Alvarado Prasad MD #### CLAIRE, CPBILX #### [facility] [address] [place] [address] Business Systems Architect: Arturo Mac DOCalcium [Mass/Vol]8.8 mg/dLNormal8.6-10.[address] [facility] on above:Performed By: #### PTHNCA, VD25 #### [address] [address] Business Systems Architect: Alvarado Prasad MD #### CLAIRE, CPBILX #### [facility] [address] [place] [address] Business Systems Architect: Arturo Mac DOChloride [Moles/Vol]104 mmol/XBuxbfp43-[address] [facility] on above:Performed By: #### PTHNCA, VD25 #### [address] [address] Business Systems Architect: Alvarado Prasad MD #### CLAIRE, CPBILX #### [facility] [address] [place] [address] Business Systems Architect: Arturo Mac DOCO2 [Moles/Vol]25 mmol/PAwkolj65-79YqrqkWvumedicine Barnesville HospitalComascension providence hospital on above:Performed By: #### PTHNCA, VD25 #### [address] [address] Business Systems Architect: Alvarado Prasad MD #### CLAIRE, CPBILX #### [facility] [address] [place] [address] Business Systems Architect: Arturo Mac DOCreatinine [Mass/Vol]2.0 mg/dLHigh0.7-1.[address] [facility] on above:Performed By: #### PTHNCA, VD25 #### [address] [address] Business Systems Architect: Alvarado Prasad MD #### CLAIRE, CPBILX #### [facility] [address] [place] [address] Business Systems Architect: Fanelly, Arturo, DOGFR/1.73 sq M.predicted among non-blacks MDRD (S/P/Bld) [Vol rate/Area]32 mL/min/{1.73_m2}Low>60[facility] Comment on above:Result Comment: These results are not intended for use in patients <18 years of age. eGFR results are calculated without a race factor using the 2020 CKD-EPI equation. Careful clinical correlation is recommended, particularly when comparing to results calculated using previous equations. The CKD-EPI equation is less accurate in patients with extremes of muscle mass, extra-renal metabolism of creatine, excessive creatine ingestion, or following therapy that affects renal tubular secretion.Performed By: #### LISA VD25 #### [address] [address] Business Systems Architect: Alvarado Prasad MD #### CLAIRE, CPBILX #### [facility] [address] [place], [place] [address] Business Systems Architect: Arturo Mac DOGlucose [Mass/Vol]133 mg/gZExmu24-03Vdror51 Ryan StreetComment on above:Performed By: #### LISA VD25 #### [address] [address] Business Systems Architect: Alvarado Prasad MD #### CLAIRE, CPBILX #### [facility] [address] [place] [address] Business Systems Architect: Arturo Mac DOPotassium [Moles/Vol]4.0 mmol/LNormal3.7-5.3 [facility] HospitalComascension providence hospital on above:Performed By: #### LISA, VD25 #### [address] [address] Business Systems Architect: Alvarado Prasad MD #### CLAIRE, CPBILX #### [facility] [address] [place] [address] Business Systems Architect: Arturo Mac DOProtein [Mass/Vol]6.5 g/dLLow6.6-8.7[facility] HospitalComasc[facility] prov[facility] hospital on above:Performed By: #### LISA, VD25 #### [address] [address] Business Systems Architect: Alvarado Prasad MD #### CLAIRE, CPBILX #### [facility] [place] [address] Business Systems Architect: Arturo Mac DOSodium [Moles/Vol]141 mmol/RNxekau015-186 [facility] HospitalComascension providence hospital on above:Performed By: #### LISA VD25 #### [address] [address] Business Systems Architect: Alvarado Prasad MD #### CLAIRE, CPBILX #### [facility] [address] [place] [address] Business Systems Architect: Arturo Mac DOUrea nitrogen [Mass/Vol]43 mg/dLHigh8-23[facility] HospitalComasc[facility] prov[facility] hospital on above:Performed By: #### LISA VD25 #### [address] [address] Business Systems Architect: Alvarado Prasad MD #### CLAIRE, CPBILX #### [facility] [address] [place] [address] Business Systems Architect: Arturo Mac DOComprehensive Metabolic w/ Bili Profile w/ Reflex to MGon 88-43-9401Mtfxfoz [Mass/Vol]3.4 g/dLLow3.5 - 5.2 g/dLBon [facility] Health InstituteALP [Catalytic activity/Vol]81 U/L40 - 129 U/LBon [facility] Health InstituteALT [Catalytic activity/Vol]5 U/LLow10 - 50 U/LBon [facility] Anion gap [Moles/Vol]12 mmol/L9 - 16 mmol/LBon Secours Mercy HealthAST [Catalytic activity/Vol]26 U/L10 - 50 U/LBon Secours Mercy HealthBilirubin [Mass/Vol]0.3 mg/dL0.0 - 1.2 mg/dLBon Secours Mercy HealthBilirubin.direct [Mass/Vol]0.1 mg/dL0.0 - 0.3 mg/dLBon Secours Mercy HealthBilirubin.indirect [Mass/Vol]0.2 mg/dL0.0 - 1.0 mg/dLBon Secours Mercy HealthCalcium [Mass/Vol]8.8 mg/dL8.6 - 10.4 mg/dLBon Secours Mercy HealthChloride [Moles/Vol]104 mmol/L98 - 107 mmol/LBon Secours Mercy HealthCO2 [Moles/Vol]25 mmol/L20 - 31 mmol/LBon Secours Mercy HealthCreatinine [Mass/Vol]2.0 mg/dLHigh0.7 - 1.2 mg/dLBon Secours [facility] Hospitaly HealthEst, Glom Filt Nzji35Qnh- PINFBon Secours Riverside Methodist Hospitaly HealthComment on above: These results are not intended for use in patients <18 years of age. eGFR results are calculated without a race factor using the 2020 CKD-EPI equation. Careful clinical correlation is recommended, particularly when comparing to results calculated using previous equations. The CKD-EPI equation is less accurate in patients with extremes of muscle mass, extra-renal metabolism of creatine, excessive creatine ingestion, or following therapy that affects renal tubular secretion. Glucose [Mass/Vol]133 mg/rQRdcj38 - 99 mg/dLBon Secours Mercy HealthPotassium [Moles/Vol]4.0 mmol/L3.7 - 5.3 mmol/LBon Secours Mercy HealthProtein [Mass/Vol] 6.5 g/dLLow6.6 - 8.7 g/dLBon Secours Mercy HealthSodium [Moles/Vol]141 mmol/L136 - 145 mmol/LBon Secours Mercy HealthUrea nitrogen [Mass/Vol]43 mg/dLHigh8 - 23 mg/dLBon Secours Mercy HealthNo Panel Informationon [id number] and review of laboratory resultsAbnormalBon Secours [facility] Hospitaly HealthBon Secours [facility] Hospitaly HealthPTH, Intacton 04-65-4346Jfqbounjnghqwe and review of laboratory results AbnormalBon [facility] Health InstituteParathyrin.intact [Mass/Vol]137.0 pg/tEYrfv01.9 - 58.6 pg/mLBon [facility] InstituteBon River[facility] Health InstitutePTH, Mlcnqd201.0 pg/aCNktd80.9-58.6Mer[facility] HospitalComment on above:Performed By: #### PTHNCA, VD25 #### [facility] [address] [place] [address] Business Systems Architect: Alvarado Prasad MD #### CLAIRE, CPBILX #### [facility] [address] [place], [place] [id number] Business Systems Architect: Arturo Mac DOPhosphoruson 18-29-0776Rzhvdmvia [Mass/Vol] 2.0 mg/dLLow2.5 - 4.5 mg/dLBon Riverview Health InstitutePhosphorus, Inorg.on 07-50-3172Ninhuamene, Inorg.2.0 mg/dLLow2.5-4.5[facility] HospitalComment on above:Performed By: #### LISA, VD25 #### [facility] [address] [place] [address] Business Systems Architect: Alvarado Prasad MD #### CLAIRE, CPBILX #### [facility] [address] [place] [address] Business Systems Architect: Arturo Mac, DOVitamin D 25 Hydroxyon [id number]- hydroxyvitamin D3 [Mass/Vol]34.7 ng/mL30.0 - 100.0 ng/mLBon [facility] Comment on above: Reference Range: Vitamin D status Range Deficiency <20 ng/mL Mild Deficiency 20-30 ng/mL Sufficiency 30-100 ng/mL Toxicity >100 ng/mL [facility] Regional Medical CenterVitamin D 25 OHon 42-88-0841Cbciqos D 25 OH34.7 ng/mL Zpgqeq64.0-100.0[facility] HospitalComment on above:Result Comment: Reference Range: Vitamin D status Range Deficiency <20 ng/mL Mild Deficiency 20-30 ng/mL Sufficiency 30-100 ng/mL Toxicity >100 ng/mLPerformed By: #### BMP, MG #### [facility] [address] [place] [address] Business Systems Architect: Arturo Mac DOBasic Metab w/rfx MGon 18-51-7464Ayleu gap [Moles/Vol]17 mmol/LHigh9-16[facility] HospitalComment on above:Performed By: #### BMP, MG #### [facility] [address] [place] [address] Business Systems Architect: Arturo Mac DOCalcium [Mass/Vol]9.3 mg/dLNormal8.6-10.4 [facility] HospitalComasc[facility] prov[facility] hospital on above:Performed By: #### BMP, MG #### [facility] [address] [place] [address] Business Systems Architect: Arturo Mac DOChloride [Moles/Vol]102 mmol/WFpkrdg43-[address] [facility] on above:Performed By: #### BMP, MG #### [facility] [address] [place] [address] Business Systems Architect: Arturo Mac DOCO2 [Moles/Vol]25 mmol/VZcxood49-87ItosmWvumedicine Barnesville HospitalComascension providence hospital on above:Performed By: #### BMP, MG #### [facility] [address] [place] [address] Business Systems Architect: Arturo Mac DOCreatinine [Mass/Vol]2.7 mg/dLHigh0.7-1.2 [facility] HospitalComascension providence hospital on above:Performed By: #### BMP, MG #### [facility] [address] [place] [address] Business Systems Architect: Arturo Mac, DOGFR/1.73 sq M.predicted among non-blacks MDRD (S/P/Bld) [Vol rate/Area]22 mL/min/{1.73_m2}Low>60[facility] Comment on above:Result Comment: These results are not intended for use in patients <18 years of age. eGFR results are calculated without a race factor using the 2020 CKD-EPI equation. Careful clinical correlation is recommended, particularly when comparing to results calculated using previous equations. The CKD-EPI equation is less accurate in patients with extremes of muscle mass, extra-renal metabolism of creatine, excessive creatine ingestion, or following therapy that affects renal tubular secretion.Performed By: #### BMP, MG #### [facility] [address] [place] [address] Business Systems Architect: Arturo Mac, DOGlucose [Mass/Vol]127 mg/bFErju75-28RhtvsOur Lady of Mercy HospitalComment on above:Performed By: #### BMP, MG #### [facility] [address] [facility] [place] [address] Business Systems Architect: Arturo Mac DOPotassium [Moles/Vol]3.3 mmol/LLow3.7-5.3 [facility] HospitalComment on above:Performed By: #### BMP, MG #### [facility]0 [facility] [place] [address] Business Systems Architect: Arturo Mac, DOSodium [Moles/Vol]144 mmol/GWrwvtv996-659 [facility] HospitalComment on above:Performed By: #### BMP, MG #### [facility]0 [facility] [place] [address] Business Systems Architect: Arturo Mac, DOUrea nitrogen [Mass/Vol]61 mg/dLHigh8-23[facility] HospitalComment on above:Performed By: #### BMP, MG #### [facility] [address] [place] [address] Business Systems Architect: Arturo Mac DOBasic Metabolic Panelon [id number] gap [Moles/Vol]18 mmol/LHigh9 - 16 mmol/LBon SecSuperData Research HealthCalcium [Mass/Vol] 9.2 mg/dL8.6 - 10.4 mg/dLBon SecSuperData Research HealthChloride [Moles/Vol]101 mmol/L 98 - 107 mmol/LBon [facility] Valley Medical CenterSuperData Research HealthCO2 [Moles/Vol]23 mmol/L20 - 31 mmol/LBon [facility] Medical CenterSuperData Research HealthCreatinine [Mass/Vol]2.8 mg/dLHigh0.7 - 1.2 mg/dLBon [facility] Medical CenterMobile Digital MediaEst, Armani Filt Egxg31Fpb- PINFBon [facility] Medical CenterMusic Messenger (MM) Comment on above: These results are not intended for use in patients <18 years of age. eGFR results are calculated without a race factor using the 2020 CKD-EPI equation. Careful clinical correlation is recommended, particularly when comparing to results calculated using previous equations. The CKD-EPI equation is less accurate in patients with extremes of muscle mass, extra-renal metabolism of creatine, excessive creatine ingestion, or following therapy that affects renal tubular secretion. Glucose [Mass/Vol]122 mg/gNOngo84 - 99 mg/dLBon [facility] FST21 Interpretation and review of laboratory resultsAbnormalBon [facility] FST21 Potassium [Moles/Vol]3.7 mmol/L3.7 - 5.3 mmol/LBon [facility] Medical CenterMobile Digital MediaSodium [Moles/Vol]142 mmol/L136 - 145 mmol/LBon [facility] Medical CenterMobile Digital MediaUrea nitrogen [Mass/Vol]63 mg/dLHigh8 - 23 mg/dLBon [facility] Medical CenterMobile Digital MediaBasic Metabolic Panel w/ Reflex to MGon 86-53-7560Bskrl gap [Moles/Vol]17 mmol/LHigh9 - 16 mmol/LBon SecSuperData Research HealthCalcium [Mass/Vol]9.3 mg/dL8.6 - 10.4 mg/dLBon [facility] Medical CenterSuperData Research HealthChloride [Moles/Vol]102 mmol/L98 - 107 mmol/LBon [facility] Medical CenterSuperData Research HealthCO2 [Moles/Vol]25 mmol/L20 - 31 mmol/LBon [facility] InstituteCreatinine [Mass/Vol] 2.7 mg/dLHigh0.7 - 1.2 mg/dLBon [facility] Health InstituteEst, Glom Filt Nmpa71Krt- PINFBon Riverview Health InstituteComment on above: These results are not intended for use in patients <18 years of age. eGFR results are calculated without a race factor using the 2020 CKD-EPI equation. Careful clinical correlation is recommended, particularly when comparing to results calculated using previous equations. The CKD-EPI equation is less accurate in patients with extremes of muscle mass, extra-renal metabolism of creatine, excessive creatine ingestion, or following therapy that affects renal tubular secretion. Glucose [Mass/Vol]127 mg/rFWlno36 - 99 mg/dLBon [facility] Interpretation and review of laboratory resultsAbnormWarren Memorial Hospital Potassium [Moles/Vol]3.3 mmol/LLow3.7 - 5.3 mmol/LBon [facility] InstituteSodium [Moles/Vol]144 mmol/L136 - 145 mmol/LBon [facility] Health InstituteUrea nitrogen [Mass/Vol]61 mg/dLHigh8 - 23 mg/dLBon [facility] HospitalBasic Metabolic Profon 87-21-0260Zpemo gap [Moles/Vol]18 mmol/LHigh9-16 [facility] HospitalComment on above:Performed By: #### BMP, MG #### [facility] [address] [facility] [place] [address] Business Systems Architect: Arturo Mac DOCalcium [Mass/Vol]9.2 mg/dLNormal8.6-10.4 [facility] HospitalComascension providence hospital on above:Performed By: #### BMP, MG #### [facility] [address] [facility] [place] [address] Business Systems Architect: Arturo Mac DOChloride [Moles/Vol]101 mmol/WHsfgmx06-185 [facility] HospitalComascension providence hospital on above:Performed By: #### BMP, MG #### [facility] [address] [facility] [place] [address] Business Systems Architect: Arturo Mac DOCO2 [Moles/Vol]23 mmol/JKdzqqi71-25UjulxWvumedicine Barnesville HospitalComment on above:Performed By: #### BMP, MG #### [facility] [facility] [place] [address] Business Systems Architect: Arturo Mac DOCreatinine [Mass/Vol]2.8 mg/dLHigh0.7-1.2 [facility] HospitalComment on above:Performed By: #### DHARA, MG #### [facility] [address] [place] [address]. [place] [address] Business Systems Architect: Arturo Mac DOGFR/1.73 sq M.predicted among non-blacks MDRD (S/P/Bld) [Vol rate/Area]21 mL/min/{1.73_m2}Low>60[facility] Comment on above:Result Comment: These results are not intended for use in patients <18 years of age. eGFR results are calculated without a race factor using the 2020 CKD-EPI equation. Careful clinical correlation is recommended, particularly when comparing to results calculated using previous equations. The CKD-EPI equation is less accurate in patients with extremes of muscle mass, extra-renal metabolism of creatine, excessive creatine ingestion, or following therapy that affects renal tubular secretion.Performed By: #### DHARA, MG #### [facility] [address] [facility] [place] [address] Business Systems Architect: Arturo Mac DOGlucose [Mass/Vol]122 mg/oQAvhd02-93RccixOur Lady of Mercy HospitalComment on above:Performed By: #### DHARA, MG #### [facility] [address] [facility] [place] [address] Business Systems Architect: Arturo Mac DOPotassium [Moles/Vol]3.7 mmol/LNormal3.7-5.3 [facility] HospitalComasc[facility] on above:Performed By: #### BMP, MG #### [facility] [address] [place] [address] Business Systems Architect: Arturo Mac, DOSodium [Moles/Vol]142 mmol/ZRxejwh611-[address] [facility] on above:Performed By: #### BMP, MG #### [facility] [address] [place] [address] Business Systems Architect: Arturo Mac, DOUrea nitrogen [Mass/Vol]63 mg/dLHigh8-23[facility] HospitalComasc[facility] providence hospital on above:Performed By: #### BMP, MG #### [facility] [address] [place] [address] Business Systems Architect: Arturo Mac, DOCBC with Auto Differentialon 02-25-2025 Basophils (Bld) [#/Vol]0.05 10*3/uLBon Secours Mercy HealthBasophils/100 WBC (Bld)0 %0 - 2 %[facility] HealthEosinophils (Bld) [#/Vol]0.13 10*3/uLBon Secours Mercy HealthEosinophils/100 WBC (Bld)1 %0 - 4 %[facility] Erythrocyte distribution width (RBC) [Ratio]14.2 %11.5 - 14.9 %[facility] HealthHematocrit (Bld) [Volume fraction]42.2 %41.0 - 53.0 %[facility] HealthHemoglobin (Bld) [Mass/Vol]13.3 g/dLLow13.5 - 17.5 g/dLBon Secours Mercy HealthImmature granulocytes (Bld) [#/Vol]0.03 10*3/uLBon Secours Mercy Health Immature granulocytes/100 WBC (Bld)0 %0[facility] HealthInterpretation and review of laboratory resultsAbnormalBon Secours Mercy HealthLymphocytes/100 WBC (Bld)16 %Low24 - 44 %[facility] HealthLymphocytes/100 WBC (Bld)1.80 % [facility] HospitalH (RBC) [Entitic mass]29.4 pg26.0 - 34.0 pgBon Samaritan North Health CenterHC (RBC) [Mass/Vol]31.5 g/dL31.0 - 37.0 g/dLBon Samaritan North Health CenterV (RBC) [Entitic vol]93.4 fL80.0 - 100.0 fLBon [facility] Monocytes/100 WBC (Bld)8 %3 - 12 %[facility] CenterMonocytes/100 WBC (Bld)0.95 %[facility] Medical CenterNeutrophils/100 WBC (Bld)75 %High36 - 66 %[facility] Medical CenterNucleated RBC/100 WBC (Bld) [Ratio]0.0 %0 per 100 WBCBon Secours Memorial Regional Medical CenterPlatelet mean volume (Bld) [Entitic vol]9.2 fL8.0 - 13.5 fL [facility] Medical CenterPlatelets (Bld) [#/Vol]193 10*3/uLBon [facility] InstituteRBC (Bld) [#/Vol]4.52 10*6/uL4.21 - 5.77 m/[facility] Segmented neutrophils/100 WBC (Bld)8.56 %HighBon Secours Memorial Regional Medical CenterWBC other (Bld) [#/Vol]11.5HighCritical access hospitalCBC with Diffon [id number]. Basophil0.03 k/uLNormal0.00-0.20[facility] Comment on above:Performed By: #### BMP, MG #### [facility] [address] [place], [place] [id number] Business Systems Architect: Arturo Mac DOAbs.Imm.Granulocyte0.07 k/uLNormal0.00-0.30 [facility] HospitalComment on above:Performed By: #### BMP, MG #### [facility] [address] [place], [place] [id number] Business Systems Architect: Arturo Mac DOAbs.Neutrophil (Seg)9.67 k/uLHigh1.50-8.[address] [facility] on above:Performed By: #### BMP, MG #### [facility] [address] [place] [address] Business Systems Architect: Arturo Mac DOBasophils/100 WBC (Bld)0 %Normal0-2MOur Lady of Mercy HospitalComascension providence hospital on above:Performed By: #### BMP, MG #### [facility] [address] [place] [address] Business Systems Architect: Arturo Mac DOEosinophils (Bld) [#/Vol]0.08 10*3/uLNormal 0.00-0.44[facility] on above:Performed By: #### DHARA, MG #### [facility] [address] [place] [address] Business Systems Architect: Arturo Mac DOEosinophils/100 WBC (Bld)1 %Normal0-4[facility] on above:Performed By: #### BMP, MG #### [facility] [address] [place] [address] Business Systems Architect: Arturo Mac DOErythrocyte distribution width (RBC) [Ratio] 14.3 %Zfuqkc07.5-14.9[facility] on above:Performed By: #### BMP, MG #### [facility] [address] [place] [address] Business Systems Architect: Arturo Mac DOHematocrit (Bld) [Volume fraction]42.8 % Rfvecf82.0-53.0[facility] HospitalComascension providence hospital on above:Performed By: #### BMP, MG #### [facility] [address] [place] [address] Business Systems Architect: Arturo Mac, DOHemoglobin (Bld) [Mass/Vol]13.7 g/dLNormal 13.5-17.5[facility] on above:Performed By: #### BMP, MG #### [facility] [address] [place] [address] Business Systems Architect: Arturo Mac, DOImmature granulocytes/100 WBC (Bld)1 %High[address] [facility] on above:Performed By: #### BMP, MG #### [facility] [address] [place] [address] Business Systems Architect: Arturo Mac, DOLymphocytes (Bld) [#/Vol]1.33 10*3/uLNormal 1.10-3.70[facility] on above:Performed By: #### BMP, MG #### [facility] [address] [place] [address] Business Systems Architect: Arturo Mac DOLymphocytes/100 WBC (Bld)11 %Adp15-74QwhrcMercy Health St. [facility] on above:Performed By: #### BMP, MG #### [address] [address] Business Systems Architect: Arturo Mac DOMCH (RBC) [Entitic mass]29.5 pgNormal 26.0-34.0[facility] HospitalComascension providence hospital on above:Performed By: #### BMP, MG #### [facility] [address] [place] [address] Business Systems Architect: Arturo Mac DOMCHC (RBC) [Mass/Vol]32.0 g/eIGsevyw68.0-37.[address] [facility] on above:Performed By: #### BMP, MG #### [facility] [address] [facility] [place] [address] Business Systems Architect: Arturo Mac DOMCV (RBC) [Entitic vol]92.0 fLNormal 80.0-100.0[facility] on above:Performed By: #### BMP, MG #### [facility] [facility] [place] [address] Business Systems Architect: Arturo Mac DOMonocytes (Bld) [#/Vol]1.17 10*3/uLNormal 0.10-1.20[facility] on above:Performed By: #### BMP, MG #### [facility] [address] [place] [address]. [place] [address] Business Systems Architect: Arturo Mac DOMonocytes/100 WBC (Bld)10 %Normal3-12[facility] on above:Performed By: #### BMP, MG #### [facility] [address] [place] [address]. [place] [address] Business Systems Architect: Arturo Mac DONeutrophil (Seg)77 %Zjfp55-73ErzizMercy Health St. [facility] on above:Performed By: #### BMP, MG #### [facility] [address] [place] [address]. [place] [address] Business Systems Architect: Arturo Mac DONRBC Automated0.0 per [address] [facility] on above:Performed By: #### BMP, MG #### [facility] [address] [place] [address]. [place] [address] Business Systems Architect: Arturo Mac DOPlatelet mean volume (Bld) [Entitic vol]9.2 fLNormal8.0-13.5[facility] on above:Performed By: #### BMP, MG #### [facility] [address] [facility] [place] [address] Business Systems Architect: Arturo Mac DOPlatelets (Bld) [#/Vol]219 10*3/uLNormal 150-450[facility] HospitalComascension providence hospital on above:Performed By: #### BMP, MG #### [facility] [address] [place] [address]. [place] [address] Business Systems Architect: Arturo Mac DORBC (Bld) [#/Vol]4.65 10*6/uLNormal4.21-5.[address] [facility] on above:Performed By: #### DHARA, MG #### [facility] [address] [place] [address]. [place] [address] Business Systems Architect: Arturo Mac DOWBC (Bld) [#/Vol]12.4 10*3/uLHigh3.5-11.[address] [facility] on above:Performed By: #### DHARA, MG #### [facility] [address] [place] [address]. [place] [address] Business Systems Architect: Arturo Mac DOAbs. Basophil0.05 k/uLNormal0.00-0.20[facility] on above:Performed By: #### DHARA, MG #### [facility] [address] [place] [address]. [place] [address] Business Systems Architect: Arturo Mac DOAbs.Imm.Granulocyte0.03 k/uLNormal0.00-0.[address] [facility] on above:Performed By: #### DHARA, MG #### [facility] [address] [place] [address]. [place] [address] Business Systems Architect: Arturo Mac DOAbs.Neutrophil (Seg)8.56 k/uLHigh1.50-8.[address] [facility] on above:Performed By: #### BMP, MG #### [facility] [place] [address] Business Systems Architect: Arturo Mac DOBasophils/100 WBC (Bld)0 %Normal0-2MOur Lady of Mercy HospitalComascension providence hospital on above:Performed By: #### BMP, MG #### [facility] [place] [address] Business Systems Architect: Arturo Mac DOEosinophils (Bld) [#/Vol]0.13 10*3/uLNormal 0.00-0.44[facility] HospitalComasc[facility] providence hospital on above:Performed By: #### BMP, MG #### [facility] [address] [place] [address] Business Systems Architect: Arturo Mac DOEosinophils/100 WBC (Bld)1 %Normal0-4[facility] HospitalComasc[facility] providence hospital on above:Performed By: #### BMP, MG #### [facility] [address] [place] [address] Business Systems Architect: Arturo Mac DOErythrocyte distribution width (RBC) [Ratio] 14.2 %Nxbszj12.5-14.9[facility] on above:Performed By: #### BMP, MG #### [facility] [address] [place] [address] Business Systems Architect: Arturo Mac DOHematocrit (Bld) [Volume fraction]42.2 % Vfkwtk19.0-53.0[facility] HospitalComasc[facility] providence hospital on above:Performed By: #### BMP, MG #### [facility] [address] [place] [address] Business Systems Architect: Arturo Mac DOHemoglobin (Bld) [Mass/Vol]13.3 g/dLLow 13.5-17.5[facility] on above:Performed By: #### BMP, MG #### [facility] [address] [place] [address] Business Systems Architect: Arturo Mac DOImmature granulocytes/100 WBC (Bld)0 %Normal[address] [facility] on above:Performed By: #### BMP, MG #### [facility] [address] [place] [address] Business Systems Architect: Arturo Mac DOLymphocytes (Bld) [#/Vol]1.80 10*3/uLNormal 1.10-3.70[facility] on above:Performed By: #### BMP, MG #### [facility] [address] [place] [address] Business Systems Architect: Arturo Mac DOLymphocytes/100 WBC (Bld)16 %Kzq84-87OjdisMercy Health St[address] [facility] on above:Performed By: #### BMP, MG #### [facility] [address] [place] [address] Business Systems Architect: Arturo Mac DOMCH (RBC) [Entitic mass]29.4 pgNormal 26.0-34.0[facility] on above:Performed By: #### BMP, MG #### [facility] [address] [place] [address] Business Systems Architect: Arturo Mac DOMCHC (RBC) [Mass/Vol]31.5 g/vRDjzdhm89.0-37.[address] [facility] on above:Performed By: #### BMP, MG #### [facility] [address] [place] [address] Business Systems Architect: Arturo Mac DOMCV (RBC) [Entitic vol]93.4 fLNormal 80.0-100.0[facility] on above:Performed By: #### BMP, MG #### [facility] [place] [address] Business Systems Architect: Arturo Mac DOMonocytes (Bld) [#/Vol]0.95 10*3/uLNormal 0.10-1.20[facility] on above:Performed By: #### BMP, MG #### [facility] [place] [address] Business Systems Architect: Arturo Mac DOMonocytes/100 WBC (Bld)8 %Normal3-12[facility] on above:Performed By: #### BMP, MG #### [facility] [address] [place] [address] Business Systems Architect: Arturo Mac DONeutrophil (Seg)75 %Ohva33-55FzbicWvumedicine Barnesville HospitalComascension providence hospital on above:Performed By: #### BMP, MG #### [facility] [address] [place] [address] Business Systems Architect: Arturo Mac DONRBC Automated0.0 per 100 YABMbkrte7WvizqWvumedicine Barnesville HospitalComascension providence hospital on above:Performed By: #### BMP, MG #### [facility] [address] [place] [address] Business Systems Architect: Arturo Mac DOPlatelet mean volume (Bld) [Entitic vol]9.2 fLNormal8.0-13.5[facility] on above:Performed By: #### BMP, MG #### [facility] [address] [place] [address] Business Systems Architect: Arturo Mac DOPlatelets (Bld) [#/Vol]193 10*3/uLNormal 150-450[facility] HospitalComasc[facility] hospital on above:Performed By: #### BMP, MG #### [facility] [address] [facility] [place] [address] Business Systems Architect: Arturo Mac DORBC (Bld) [#/Vol]4.52 10*6/uLNormal4.21-5.[address] [facility] on above:Performed By: #### BMP, MG #### [facility] [address] [facility] [place] [address] Business Systems Architect: Arturo Mac DOWBC (Bld) [#/Vol]11.5 10*3/uLHigh3.5-11.[address] [facility] on above:Performed By: #### BMP, MG #### [facility] [address] [facility] [place] [address] Business Systems Architect: Arturo Mac DOCBC with auto differentialon 02-25-2025 Basophils (Bld) [#/Vol]0.03 10*3/uLBon Secours Mercy HealthBasophils/100 WBC (Bld)0 %0 - 2 %[facility] HealthEosinophils (Bld) [#/Vol]0.08 10*3/uLBon Secours Mercy HealthEosinophils/100 WBC (Bld)1 %0 - 4 %[facility] Erythrocyte distribution width (RBC) [Ratio]14.3 %11.5 - 14.9 %[facility] HealthHematocrit (Bld) [Volume fraction]42.8 %41.0 - 53.0 %[facility] HealthHemoglobin (Bld) [Mass/Vol]13.7 g/dL13.5 - 17.5 g/dLBon Secours Mercy East Liverpool City HospitalImmature granulocytes (Bld) [#/Vol]0.07 10*3/uLBon Secours Mercy Health Immature granulocytes/100 WBC (Bld)1 %Oqev3Btu [facility] Interpretation and review of laboratory resultsAbnormalBon Secours [facility] Lymphocytes/100 WBC (Bld)11 %Low24 - 44 %[facility] Medical CenterLymphocytes/100 WBC (Bld)1.33 %[facility] HospitalH (RBC) [Entitic mass]29.5 pg26.0 - 34.0 pgRiverside Shore Memorial HospitalHC (RBC) [Mass/Vol]32.0 g/dL31.0 - 37.0 g/dLBon Samaritan North Health CenterV (RBC) [Entitic vol]92.0 fL80.0 - 100.0 fLBon Secours Memorial Regional Medical CenterMonocytes/100 WBC (Bld)10 %3 - 12 %[facility] Monocytes/100 WBC (Bld)1.17 %[facility] Medical CenterNeutrophils/100 WBC (Bld)77 %High36 - 66 %[facility] Medical CenterNucleated RBC/100 WBC (Bld) [Ratio]0.0 %0 per 100 WBCBon Secours Memorial Regional Medical CenterPlatelet mean volume (Bld) [Entitic vol]9.2 fL8.0 - 13.5 fLBon Secours Memorial Regional Medical CenterPlatelets (Bld) [#/Vol]219 10*3/uLBon [facility] Health InstituteRBC (Bld) [#/Vol]4.65 10*6/uL4.21 - 5.77 m/uLBon Secours Memorial Regional Medical CenterSegmented neutrophils/100 WBC (Bld)9.67 %HighBon Secours Memorial Regional Medical CenterWBC other (Bld) [#/Vol]12.4HighCritical access hospitalCT CERVICAL SPINE WO CONTRASTon [id number] CERVICAL SPINE WO CONTRAST EXAMINATION: CT OF THE CERVICAL SPINE WITHOUT CONTRAST, 02/25/2025 1:13 am TECHNIQUE: CT of the cervical spine was performed without the administration of intravenous contrast. Multiplanar reformatted images are provided for review. Automated exposure control, iterative reconstruction, and/or weight based adjustment of the mA/kV was utilized to reduce the radiation dose to as low as reasonably achievable. COMPARISON: None HISTORY: ORDERING SYSTEM PROVIDED HISTORY fall TECHNOLOGIST PROVIDED HISTORY: Fall Decision Support Exception - unselect if not a suspected or confirmed emergency medical condition->Emergency Medical Condition (MA) Reason for Exam: Fall FINDINGS: BONES/ALIGNMENT: Reversal of the cervical lordosis at the level of C5-C6. Minimal grade 1 anterolisthesis of C3 on C4. Cervical vertebral body heights are maintained. Facets align normally. No visible fracture. DEGENERATIVE CHANGES: Moderate to severe degenerative disc disease at C5-C6, C6-C7, C7-T1. Moderate bilateral left neural foraminal narrowing at C5-C6, C6-C7, C7-T1. SOFT TISSUES: Prevertebral soft tissues are unremarkable. IMPRESSION: 1. No evidence of cervical spine fracture. Minimal grade 1 anterolisthesis of C3 on C4, suspected to be chronic. If clinical concern persists, consider flexion-extension views. 2. Moderate to severe degenerative disc disease at C5-C6, C6-C7, C7-T1. 3. Moderate bilateral left neural foraminal narrowing at C5-C6, C6-C7, C7-T1. Interpreted by: Jonathan Diaz MD Signed by: Jonathan Diaz MD 02/25/25 Final resultNormalMercy Community Memorial HospitalCT Cervical spine WO contraston . No evidence of cervical spine fracture. Minimal grade 1 anterolisthesis of C3 on C4, suspected to be chronic. If clinical concern persists, consider flexion-extension views. 2. Moderate to severe degenerative disc disease at C5-C6, C6-C7, C7-T1. 3. Moderate bilateral left neural foraminal narrowing at C5-C6, C6-C7, C7-T1. [facility] RIS CONSOLIDATEDEXAMINATION: CT OF THE CERVICAL SPINE WITHOUT CONTRAST, 02/25/2025 1:13 am TECHNIQUE: CT of the cervical spine was performed without the administration of intravenous contrast. Multiplanar reformatted images are provided for review. Automated exposure control, iterative reconstruction, and/or weight based adjustment of the mA/kV was utilized to reduce the radiation dose to as low as reasonably achievable. COMPARISON: None HISTORY: ORDERING SYSTEM PROVIDED HISTORY fall TECHNOLOGIST PROVIDED HISTORY: Fall Decision Support Exception - unselect if not a suspected or confirmed emergency medical condition->Emergency Medical Condition (MA) Reason for Exam: Fall FINDINGS: BONES/ALIGNMENT: Reversal of the cervical lordosis at the level of C5-C6. Minimal grade 1 anterolisthesis of C3 on C4. Cervical vertebral body heights are maintained. Facets align normally. No visible fracture. DEGENERATIVE CHANGES: Moderate to severe degenerative disc disease at C5-C6, C6-C7, C7-T1. Moderate bilateral left neural foraminal narrowing at C5-C6, C6-C7, C7-T1. SOFT TISSUES: Prevertebral soft tissues are unremarkable. Jonathan Ramon MD - 02/25/2025 EXAMINATION: CT OF THE CERVICAL SPINE WITHOUT CONTRAST, 02/25/2025 1:13 am TECHNIQUE: CT of the cervical spine was performed without the administration of intravenous contrast. Multiplanar reformatted images are provided for review. Automated exposure control, iterative reconstruction, and/or weight based adjustment of the mA/kV was utilized to reduce the radiation dose to as low as reasonably achievable. COMPARISON: None HISTORY: ORDERING SYSTEM PROVIDED HISTORY fall TECHNOLOGIST PROVIDED HISTORY: Fall Decision Support Exception - unselect if not a suspected or confirmed emergency medical condition->Emergency Medical Condition (MA) Reason for Exam: Fall FINDINGS: BONES/ALIGNMENT: Reversal of the cervical lordosis at the level of C5-C6. Minimal grade 1 anterolisthesis of C3 on C4. Cervical vertebral body heights are maintained. Facets align normally. No visible fracture. DEGENERATIVE CHANGES: Moderate to severe degenerative disc disease at C5-C6, C6-C7, C7-T1. Moderate bilateral left neural foraminal narrowing at C5-C6, C6-C7, C7-T1. SOFT TISSUES: Prevertebral soft tissues are unremarkable. IMPRESSION: 1. No evidence of cervical spine fracture. Minimal grade 1 anterolisthesis of C3 on C4, suspected to be chronic. If clinical concern persists, consider flexion-extension views. 2. Moderate to severe degenerative disc disease at C5-C6, C6-C7, C7-T1. 3. Moderate bilateral left neural foraminal narrowing at C5-C6, C6-C7, C7-T1. Bon [facility] Cervical spine WO contrastOrdered By: Jonathan Diaz on [id number] Work Phone: ct HEAD WO CONTRASTon [id number] HEAD WO CONTRAST EXAMINATION: CT OF THE HEAD WITHOUT CONTRAST 02/25/2025 1:13 am TECHNIQUE: CT of the head was performed without the administration of intravenous contrast. Automated exposure control, iterative reconstruction, and/or weight based adjustment of the mA/kV was utilized to reduce the radiation dose to as low as reasonably achievable. COMPARISON: None HISTORY: ORDERING SYSTEM PROVIDED HISTORY: fall TECHNOLOGIST PROVIDED HISTORY: fall Decision Support Exception - unselect if not a suspected or confirmed emergency medical condition->Emergency Medical Condition (MA) Reason for Exam: fall FINDINGS: BRAIN/VENTRICLES: No masses nor acute intracranial hemorrhage. Intact ortiz/white matter differentiation without findings of acute ischemia. No mass effect nor midline shift. Patent basilar cisterns and foramen magnum. No hydrocephalus. Age-appropriate mild diffuse atrophy. Mild deep and periventricular white matter hypodensities likely due to chronic small vessel ischemia. Bilateral basal ganglia physiologic calcifications. ORBITS: Bilateral lens implants. No acute abnormality. SINUSES: No acute abnormality. SOFT TISSUES/SKULL: No obvious acute soft tissue abnormality. Moderate to severe atherosclerotic calcifications. No acute fracture. IMPRESSION: No acute findings in the head. Interpreted by: hCadd Ocasio MD Signed by: Chadd Ocasio MD 02/25/25 Final resultNormalMercy Community Memorial HospitalCT Head WO contraston [id number] acute findings in the head. [facility] CONSOLIDATEDEXAMINATION: CT OF THE HEAD WITHOUT CONTRAST 02/25/2025 1:13 am TECHNIQUE: CT of the head was performed without the administration of intravenous contrast. Automated exposure control, iterative reconstruction, and/or weight based adjustment of the mA/kV was utilized to reduce the radiation dose to as low as reasonably achievable. COMPARISON: None HISTORY: ORDERING SYSTEM PROVIDED HISTORY: fall TECHNOLOGIST PROVIDED HISTORY: fall Decision Support Exception - unselect if not a suspected or confirmed emergency medical condition->Emergency Medical Condition (MA) Reason for Exam: fall FINDINGS: BRAIN/VENTRICLES: No masses nor acute intracranial hemorrhage. Intact ortiz/white matter differentiation without findings of acute ischemia. No mass effect nor midline shift. Patent basilar cisterns and foramen magnum. No hydrocephalus. Age-appropriate mild diffuse atrophy. Mild deep and periventricular white matter hypodensities likely due to chronic small vessel ischemia. Bilateral basal ganglia physiologic calcifications. ORBITS: Bilateral lens implants. No acute abnormality. SINUSES: No acute abnormality. SOFT TISSUES/SKULL: No obvious acute soft tissue abnormality. Moderate to severe atherosclerotic calcifications. No acute fracture. [facility] Chadd Bell MD - 02/25/2025 EXAMINATION: CT OF THE HEAD WITHOUT CONTRAST 02/25/2025 1:13 am TECHNIQUE: CT of the head was performed without the administration of intravenous contrast. Automated exposure control, iterative reconstruction, and/or weight based adjustment of the mA/kV was utilized to reduce the radiation dose to as low as reasonably achievable. COMPARISON: None HISTORY: ORDERING SYSTEM PROVIDED HISTORY: fall TECHNOLOGIST PROVIDED HISTORY: fall Decision Support Exception - unselect if not a suspected or confirmed emergency medical condition->Emergency Medical Condition (MA) Reason for Exam: fall FINDINGS: BRAIN/VENTRICLES: No masses nor acute intracranial hemorrhage. Intact ortiz/white matter differentiation without findings of acute ischemia. No mass effect nor midline shift. Patent basilar cisterns and foramen magnum. No hydrocephalus. Age-appropriate mild diffuse atrophy. Mild deep and periventricular white matter hypodensities likely due to chronic small vessel ischemia. Bilateral basal ganglia physiologic calcifications. ORBITS: Bilateral lens implants. No acute abnormality. SINUSES: No acute abnormality. SOFT TISSUES/SKULL: No obvious acute soft tissue abnormality. Moderate to severe atherosclerotic calcifications. No acute fracture. IMPRESSION: No acute findings in the head. [facility] AquaHydrateHI Head WO contrastOrdered By: Chadd Ocasio on [id number] Work Phone: Hemoglobin A1Con [id number] glucose Estimated from glycated hemoglobin (Bld) [Mass/Vol]117 mg/dLBon [facility] Comment on above:The ADA and AACC recommend providing the estimated average glucose result to permit better patient understanding of their HBA1c result. HbA1c (Bld) [Mass fraction]5.7 %4.0 - 6.0 %[facility]aul Medical CenterSuperData Research [facility] Medical CenterGlucose [Mass/Vol]117 mg/dLNormalMerNationwide Children's HospitalComment on above:Result Comment: The ADA and AACC recommend providing the estimated average glucose result to permit better patient understanding of their HBA1c result.Performed By: #### BMP, MG #### [facility] [address] [place] [address] Business Systems Architect: Arturo Mac DOHbA1c (Bld) [Mass fraction]5.7 %Normal4.0-6.0 [facility] HospitalComment on above:Performed By: #### BMP, MG #### [facility] [address] [place] [address] Business Systems Architect: Arturo Mac DOLipid Panelon [id number] [Mass/Vol]135 mg/dL0 - 199 mg/dLBon [facility] InstituteComment on above: Cholesterol Guidelines: <200 Desirable 200-240 Borderline >240 Undesirable Cholesterol in HDL [Mass/Vol]53 mg/dL40 - PINF mg/dLBon [facility] Comment on above: HDL Guidelines: <40 Undesirable 40-59 Borderline >59 Desirable Cholesterol in LDL [Mass/Vol]71 mg/dL0 - 100 mg/dLBon [facility] Comment on above: LDL Guidelines: <100 Desirable 100-129 Near to/above Desirable 130-159 Borderline >159 Undesirable Direct (measured) LDL and calculated LDL are not interchangeable tests. Cholesterol.total/Cholesterol in HDL [Mass ratio]2.5 {ratio}Bon [facility] InstituteTriglyceride [Mass/Vol]57 mg/dL0 - 149 mg/dLBon [facility] Comment on above: Triglyceride Guidelines: <150 Desirable 150-199 Borderline 200-499 High >499 Very high Based on AHA Guidelines for fasting triglyceride, April 2012. Lipid Profileon [id number] [Mass/Vol]135 mg/dLNormal0-199[facility] HospitalComascension [facility] hospital on above:Result Comment: Cholesterol Guidelines: <200 Desirable 200-240 Borderline >240 UndesirablePerformed By: #### BMP, MG #### [facility] [address] [place] [address] Business Systems Architect: Arturo Mac DOCholesterol in HDL [Mass/Vol]53 mg/dLNormal >40[facility] HospitalComasc[facility] providence hospital on above:Result Comment: HDL Guidelines: <40 Undesirable 40-59 Borderline >59 DesirablePerformed By: #### BMP, MG #### [facility] [address] [place] [address] Business Systems Architect: Arturo Mac DOCholesterol in LDL [Mass/Vol]71 mg/dLNormal 0-100[facility] on above:Result Comment: LDL Guidelines: <100 Desirable 100-129 Near to/above Desirable 130-159 Borderline >159 Undesirable Direct (measured) LDL and calculated LDL are not interchangeable tests.Performed By: #### BMP, MG #### [facility] [address] [facility] [place] [address] Business Systems Architect: Arturo Mac DOCholesterol.total/Cholesterol in HDL [Mass ratio]2.5 {ratio}NormalWvumedicine Barnesville HospitalComascension providence hospital on above:Performed By: #### BMP, MG #### [facility] [address] [place] [address] Business Systems Architect: Arturo Mac DOTriglyceride [Mass/Vol]57 mg/dLNormal0-149 [facility] HospitalComascension providence hospital on above:Result Comment: Triglyceride Guidelines: <150 Desirable 150-199 Borderline 200-499 High >499 Very high Based on AHA Guidelines for fasting triglyceride, April 2012.Performed By: #### BMP, MG #### [facility] [address] [place] [address] Business Systems Architect: Arturo Mac DOMagnesiumon [id number] [Mass/Vol]2.0 mg/dL1.6 - 2.4 mg/dLBon [facility] InstituteBon [facility] Health InstituteMagnesium [Mass/Vol]2.0 mg/dLNormal1.6-2.4[facility] on above: Performed By: #### BMP, MG #### [facility] [address] [facility] [place] [address] Business Systems Architect: Arturo Mac DOMagnesium [Mass/Vol]2.1 mg/dL1.6 - 2.4 mg/dL Bon [facility] InstituteMagnesium [Mass/Vol]2.1 mg/dLNormal1.6-2.4Mer[facility] Memorial HospitalComment on above:Performed By: #### BMP, MG #### [facility] [employer] [facility] [address] [place] [address] Business Systems Architect: Arturo Mac DOMicroscopic Urinalysison [id number] LM Ql (Urine sed)NoneNoneBon AquaHydrateCasts LM.LPF (Urine sed) [#/Area]0 TO 2AbnormalNone /LPFBon AquaHydrateEpithelial cells LM.HPF (Urine sed) [#/Area]0 TO 2/HPFBon AquaHydrateInterpretation and review of laboratory resultsAbnormalBon [facility] FST21RBC LM.HPF (Urine sed) [#/Area]0 TO 20 TO 2 /HPFBon AquaHydrateWBC LM.HPF (Urine sed) [#/Area] 0 TO 6Nexsotcv6 TO 5 /HPFBon Secours FST21Bon [facility] Medical CenterMobile Digital MediaNo Panel Informationon [id number] AquaHydrate1. Acute impacted subcapital left femoral neck fracture. 2. No acute findings in the left knee. [facility] RIS CONSOLIDATEDEXAMINATION: ONE XRAY VIEW OF THE PELVIS AND TWO XRAY VIEWS LEFT HIP; THREE XRAY VIEWS OF THE LEFT KNEE 02/25/2025 1:29 am COMPARISON: None HISTORY: ORDERING SYSTEM PROVIDED HISTORY: fall TECHNOLOGIST PROVIDED HISTORY: fall Reason for Exam: Fall- slip and fall in bathroom. Left hip pain Additional signs and symptoms: Fall- slip and fall in bathroom. Left hip pain Relevant Medical/Surgical History: Fall- slip and fall in bathroom. Left hip pain; ORDERING SYSTEM PROVIDED HISTORY: fall TECHNOLOGIST PROVIDED HISTORY: fall Reason for Exam: Fall- slip and fall in bathroom. Left leg pain Additional signs and symptoms: Fall- slip and fall in bathroom. Left leg pain Relevant Medical/Surgical History: Fall- slip and fall in bathroom. Left leg pain FINDINGS: PELVIS/LEFT HIP: Acute subcapital left femoral neck fracture with impaction but no significant displacement nor angulation. Joints maintain anatomic alignment. No obvious acute soft tissue abnormality. LEFT KNEE: No definite acute fracture. Joints maintain anatomic alignment. No significant suprapatellar effusion. No obvious acute soft tissue abnormality. Surgical clips in the posteromedial knee. Chadd Rodriguez MD - 02/25/2025 EXAMINATION: ONE XRAY VIEW OF THE PELVIS AND TWO XRAY VIEWS LEFT HIP; THREE XRAY VIEWS OF THE LEFT KNEE 02/25/2025 1:29 am COMPARISON: None HISTORY: ORDERING SYSTEM PROVIDED HISTORY: fall TECHNOLOGIST PROVIDED HISTORY: fall Reason for Exam: Fall- slip and fall in bathroom. Left hip pain Additional signs and symptoms: Fall- slip and fall in bathroom. Left hip pain Relevant Medical/Surgical History: Fall- slip and fall in bathroom. Left hip pain; ORDERING SYSTEM PROVIDED HISTORY: fall TECHNOLOGIST PROVIDED HISTORY: fall Reason for Exam: Fall- slip and fall in bathroom. Left leg pain Additional signs and symptoms: Fall- slip and fall in bathroom. Left leg pain Relevant Medical/Surgical History: Fall- slip and fall in bathroom. Left leg pain FINDINGS: PELVIS/LEFT HIP: Acute subcapital left femoral neck fracture with impaction but no significant displacement nor angulation. Joints maintain anatomic alignment. No obvious acute soft tissue abnormality. LEFT KNEE: No definite acute fracture. Joints maintain anatomic alignment. No significant suprapatellar effusion. No obvious acute soft tissue abnormality. Surgical clips in the posteromedial knee. IMPRESSION: 1. Acute impacted subcapital left femoral neck fracture. 2. No acute findings in the left knee. [facility] Study observation (narrative)[facility] Study observation (narrative)[facility] reflex to [id number] Qn1.91 m[IU]/LBon [facility] w/reflex to [id number] Stim. Horm.1.91 uIU/mLNormal0.27-4.20[facility] Memorial HospitalComment on above: Performed By: #### MG DHARA #### [facility] [address] [place] [address] Business Systems Architect: Arturo Mac DOUA w/Reflex Cultureon [id number], SemiQt,UrNegativeNormalNEGMercy Community Memorial HospitalComascension providence hospital on above:Performed By: #### BMP, MG #### [facility] [address] [place] [address]. [place] [address] Business Systems Architect: Arturo Mac DOBlood, UrineSMALLAbnormalNEGMercy Community Memorial HospitalComascension providence hospital on above:Performed By: #### BMP, MG #### [facility] [address] [place] [address] Business Systems Architect: Arturo Mac DOClarity (U)ClearNormalCLEARMerPeoples Hospital on above:Performed By: #### BMP, MG #### [address] [address] Business Systems Architect: Arturo Mac DOColor (U)YellowNormalYELMercy Community Memorial HospitalComascension providence hospital on above:Performed By: #### BMP, MG #### [address] [address] Business Systems Architect: Arturo Mac DOGlucose Ql (U)NegativeNormalNEGMercy Medina Hospital on above:Performed By: #### BMP, MG #### [facility] [address] [place] [address]. [place] [address] Business Systems Architect: Arturo Mac DOKetones Ql (U)NegativeNormalNEGMercy Community Memorial HospitalComascension providence hospital on above:Performed By: #### BMP, MG #### [facility] [address] [place] [address] Business Systems Architect: Arturo Mac DOLeukocyte esterase Test strip Ql (U)Negative NormalNEGMercy Community Memorial HospitalComascension providence hospital on above:Performed By: #### BMP, MG #### [facility] [address] [place] [address] [place] [address] Business Systems Architect: Arturo Mac DONitrite,UrNegativeNormalNEGMercy Health St. [facility] on above:Performed By: #### BMP, MG #### [facility] [address] [place] [address] Business Systems Architect: Arturo Mac DOPH,Ur5.7Aupwcf2.0-8.0[facility] on above:Performed By: #### BMP, MG #### [facility] [address] [place] [address] Business Systems Architect: Arturo Mac DOProtein Ql (U)1+ mg/dLAbnormalNEGMercy Health St. [facility] on above:Performed By: #### BMP, MG #### [facility] [address] [place] [address] Business Systems Architect: Arturo Mac DOSpec. [place],Ur1.740Pzotpt1.000-1.030[facility] on above:Performed By: #### BMP, MG #### [facility] [address] [place] [address] Business Systems Architect: Arturo Mac DOUrobilinogen,UrNormalNormal0.0-1.0[facility] on above:Performed By: #### BMP, MG #### [facility] [address] [place] [address] Business Systems Architect: Arturo Mac DOUrinalysis with Reflex to Cultureon [id number] Ql (U)NegativeNEGATIVEBon [facility] InstituteClarity (U) ClearClearBon [facility] InstituteColor (U)YellowYellowBon [facility] Glucose Test strip (U) [Mass/Vol]NegativeNEGATIVE mg/dLBon [facility] Hemoglobin Auto test strip Ql (U)SMALLAbnormalNEGATIVEBon [facility] Interpretation and review of laboratory resultsAbnormalBon [facility] Ketones (U) [Mass/Vol]NegativeNEGATIVE mg/dLBon [facility] InstituteLeukocyte esterase Test strip Ql (U)NegativeNEGATIVEBon [facility] InstituteNitrite Ql (U) NegativeNEGATIVEBon [facility] Health InstitutepH (U)5.0 [pH]5.0 - 8.0Bon [facility] Regional Medical CenterProtein (U) [Mass/Vol]1+AbnormalNEGATIVE mg/dLBSouthampton Memorial Hospital Specific gravity (U) [Rel density]1.0161.000 - 1.030[facility] Urobilinogen Qn (U)Normal0.0 - 1.0 EU/dLBon [facility] Memorial HospitalUrinalysis,Microon [id number]evs St. Charles HospitalComment on above:Performed By: #### BMP, MG #### [facility] [address] [place] [address] Business Systems Architect: Arturo Mac DOCasts0 TO 2AbnormalOhioHealth Pickerington Methodist HospitalComascension providence hospital on above:Performed By: #### BMP, MG #### [facility] [place] [address] Business Systems Architect: Arturo Mac DOEpithelial cells LM Ql (Urine sed)0 TO 2 NormalWvumedicine Barnesville HospitalComascension providence hospital on above:Performed By: #### BMP, MG #### [facility] [place] [address] Business Systems Architect: Arturo Mac DOUrine RBC's0 TO 7PjuotjL47KrjzdMercy Health St. [facility] on above:Performed By: #### BMP, MG #### [facility] [address] [place] [address] Business Systems Architect: Arturo Mac DOUrine WBC's0 TO 1LrtjrxkaC36SlciiNationwide Children's HospitalComment on above:Performed By: #### [facility], MG #### [facility] [address] [place] [address] Business Systems Architect: Arturo Mac DOXR CHEST (SINGLE VIEW FRONTAL)on [id number] CHEST (SINGLE VIEW FRONTAL)EXAMINATION: ONE XRAY VIEW OF THE CHEST 02/25/2025 1:29 am COMPARISON: None HISTORY: ORDERING SYSTEM PROVIDED HISTORY: fall TECHNOLOGIST PROVIDED HISTORY: fall Reason for Exam: Fall- slip and fall in bathroom left side pain Additional signs and symptoms: Fall- slip and fall in bathroom left side pain Relevant Medical/Surgical History: Fall- slip and fall in bathroom left side pain FINDINGS: Changes of coronary artery bypass grafting. Overlying heart monitor leads. No space opacities. Diffuse interstitial prominence with indistinct pulmonary vasculature but no definite interlobular septal thickening. No definite findings of pneumothorax or pleural effusion. Normal mediastinal contour. Borderline prominent hilar and cardiac contours. Soft tissue gas in the lateral left chest wall potentially extending into the left axilla. No obvious acute fracture. Joints maintain anatomic alignment. IMPRESSION: 1. Soft tissue gas in the lateral left chest wall and possibly the left axilla could be related to a penetrating injury with no obvious underlying acute bony injury. 2. Pulmonary vascular congestion and borderline cardiomegaly. Interpreted by: Chadd Ocasio MD Signed by: Chadd Ocasio MD 02/25/25 Final resultNormalMerNationwide Children's Hospital1. Soft tissue gas in the lateral left chest wall and possibly the left axilla could be related to a penetrating injury with no obvious underlying acute bony injury. 2. Pulmonary vascular congestion and borderline cardiomegaly. [facility] RIS CONSOLIDATEDEXAMINATION: ONE XRAY VIEW OF THE CHEST 02/25/2025 1:29 am COMPARISON: None HISTORY: ORDERING SYSTEM PROVIDED HISTORY: fall TECHNOLOGIST PROVIDED HISTORY: fall Reason for Exam: Fall- slip and fall in bathroom left side pain Additional signs and symptoms: Fall- slip and fall in bathroom left side pain Relevant Medical/Surgical History: Fall- slip and fall in bathroom left side pain FINDINGS: Changes of coronary artery bypass grafting. Overlying heart monitor leads. No space opacities. Diffuse interstitial prominence with indistinct pulmonary vasculature but no definite interlobular septal thickening. No definite findings of pneumothorax or pleural effusion. Normal mediastinal contour. Borderline prominent hilar and cardiac contours. Soft tissue gas in the lateral left chest wall potentially extending into the left axilla. No obvious acute fracture. Joints maintain anatomic alignment. Chadd Rodriguez MD - 02/25/2025 EXAMINATION: ONE XRAY VIEW OF THE CHEST 02/25/2025 1:29 am COMPARISON: None HISTORY: ORDERING SYSTEM PROVIDED HISTORY: fall TECHNOLOGIST PROVIDED HISTORY: fall Reason for Exam: Fall- slip and fall in bathroom left side pain Additional signs and symptoms: Fall- slip and fall in bathroom left side pain Relevant Medical/Surgical History: Fall- slip and fall in bathroom left side pain FINDINGS: Changes of coronary artery bypass grafting. Overlying heart monitor leads. No space opacities. Diffuse interstitial prominence with indistinct pulmonary vasculature but no definite interlobular septal thickening. No definite findings of pneumothorax or pleural effusion. Normal mediastinal contour. Borderline prominent hilar and cardiac contours. Soft tissue gas in the lateral left chest wall potentially extending into the left axilla. No obvious acute fracture. Joints maintain anatomic alignment. IMPRESSION: 1. Soft tissue gas in the lateral left chest wall and possibly the left axilla could be related to a penetrating injury with no obvious underlying acute bony injury. 2. Pulmonary vascular congestion and borderline cardiomegaly. [facility] Medical CenterBon [facility] InstituteXR HIP 2-3 VW W PELVIS LEFTon [id number] HIP 2-3 VW W PELVIS LEFTEXAMINATION: ONE XRAY VIEW OF THE PELVIS AND TWO XRAY VIEWS LEFT HIP; THREE XRAY VIEWS OF THE LEFT KNEE 02/25/2025 1:29 am COMPARISON: None HISTORY: ORDERING SYSTEM PROVIDED HISTORY: fall TECHNOLOGIST PROVIDED HISTORY: fall Reason for Exam: Fall- slip and fall in bathroom. Left hip pain Additional signs and symptoms: Fall- slip and fall in bathroom. Left hip pain Relevant Medical/Surgical History: Fall- slip and fall in bathroom. Left hip pain; ORDERING SYSTEM PROVIDED HISTORY: fall TECHNOLOGIST PROVIDED HISTORY: fall Reason for Exam: Fall- slip and fall in bathroom. Left leg pain Additional signs and symptoms: Fall- slip and fall in bathroom. Left leg pain Relevant Medical/Surgical History: Fall- slip and fall in bathroom. Left leg pain FINDINGS: PELVIS/LEFT HIP: Acute subcapital left femoral neck fracture with impaction but no significant displacement nor angulation. Joints maintain anatomic alignment. No obvious acute soft tissue abnormality. LEFT KNEE: No definite acute fracture. Joints maintain anatomic alignment. No significant suprapatellar effusion. No obvious acute soft tissue abnormality. Surgical clips in the posteromedial knee. IMPRESSION: 1. Acute impacted subcapital left femoral neck fracture. 2. No acute findings in the left knee. Interpreted by: Chadd Ocasio MD Signed by: Chadd Ocasio MD 02/25/25 Final resultNormMemorial Health SystemXR HIP LEFT (1 VIEW)on [id number] HIP LEFT (1 VIEW)EXAM: 1 VIEW XRAY OF THE LEFT HIP 02/25/2025 01:28:14 PM COMPARISON: None available. CLINICAL HISTORY: Total hip in OR. FINDINGS: BONES AND JOINTS: Status post left hip hemiarthroplasty. No hardware complications. SOFT TISSUES: The soft tissues are unremarkable. IMPRESSION: 1. Status post left hip Hemiarthroplasty with no hardware complications. Interpreted by: Chadd Hatch MD Signed by: Chadd Hatch MD 02/25/25 Final resultNoSouthern Ohio Medical CenterXR Hip - left Single viewon . Status post left hip Hemiarthroplasty with no hardware complications. [facility] CONSOLIDATEDEXAM: 1 VIEW XRAY OF THE LEFT HIP 02/25/2025 01:28:14 PM COMPARISON: None available. CLINICAL HISTORY: Total hip in OR. FINDINGS: BONES AND JOINTS: Status post left hip hemiarthroplasty. No hardware complications. SOFT TISSUES: The soft tissues are unremarkable. [facility] Chadd Wray MD - 02/25/2025 EXAM: 1 VIEW XRAY OF THE LEFT HIP 02/25/2025 01:28:14 PM COMPARISON: None available. CLINICAL HISTORY: Total hip in OR. FINDINGS: BONES AND JOINTS: Status post left hip hemiarthroplasty. No hardware complications. SOFT TISSUES: The soft tissues are unremarkable. IMPRESSION: 1. Status post left hip Hemiarthroplasty with no hardware complications. [facility] Medical CenterRadiology Study observation (narrative)[facility] CenterXR Hip - left Single viewOrdered By: Chadd Hatch on [id number] FST21 Work Phone: XR KNEE LEFT (3 VIEWS)on [id number] KNEE LEFT (3 VIEWS)EXAMINATION: ONE XRAY VIEW OF THE PELVIS AND TWO XRAY VIEWS LEFT HIP; THREE XRAY VIEWS OF THE LEFT KNEE 02/25/2025 1:29 am COMPARISON: None HISTORY: ORDERING SYSTEM PROVIDED HISTORY: fall TECHNOLOGIST PROVIDED HISTORY: fall Reason for Exam: Fall- slip and fall in bathroom. Left hip pain Additional signs and symptoms: Fall- slip and fall in bathroom. Left hip pain Relevant Medical/Surgical History: Fall- slip and fall in bathroom. Left hip pain; ORDERING SYSTEM PROVIDED HISTORY: fall TECHNOLOGIST PROVIDED HISTORY: fall Reason for Exam: Fall- slip and fall in bathroom. Left leg pain Additional signs and symptoms: Fall- slip and fall in bathroom. Left leg pain Relevant Medical/Surgical History: Fall- slip and fall in bathroom. Left leg pain FINDINGS: PELVIS/LEFT HIP: Acute subcapital left femoral neck fracture with impaction but no significant displacement nor angulation. Joints maintain anatomic alignment. No obvious acute soft tissue abnormality. LEFT KNEE: No definite acute fracture. Joints maintain anatomic alignment. No significant suprapatellar effusion. No obvious acute soft tissue abnormality. Surgical clips in the posteromedial knee. IMPRESSION: 1. Acute impacted subcapital left femoral neck fracture. 2. No acute findings in the left knee. Interpreted by: Chadd Ocasio MD Signed by: Chadd Ocasio MD 02/25/25 Final resultNormalMercy Community Memorial HospitalXR Knee - left 3 Viewson 02-25-2025 Radiology Study observation (narrative)[facility] CenterCBC (NO DIFF)on 57-72-0682Yuzzifsgxuz distribution width (RBC) [Ratio]14.0 %Hnmfvr84.5-15 [facility] HospitalComment on above:Performed By: #### CBC #### [facility] ([address] [place] [address] VIRHematocrit (Bld) [Volume fraction]42.4 %Dfrxuz81-04 [facility] HospitalComment on above:Performed By: #### CBC #### [facility] ([facility]) [address] [place] [address] [place] [address] VIRHemoglobin (Bld) [Mass/Vol]13.9 g/pWInirqc14-42AopVmgyioMethodist Southlake HospitalComment on above:Performed By: #### CBC #### [facility] ([facility]) [address] [place] [address] [place] [address] VIRMCH (RBC) [Entitic mass]29.8 rrFwarbb77-64BdyKlkxxtMethodist Southlake HospitalComment on above:Performed By: #### CBC #### [facility] ([facility]) [address] [place] [address] [place] [address] VIRMCHC (RBC) [Mass/Vol]32.8 g/kMGhzbil89-45SfpFjjwzoMethodist Southlake HospitalComment on above:Performed By: #### CBC #### [facility] ([address] [place] [address] VIRMCV (RBC) [Entitic vol]91 gQFjbtuh69-196IbiPtaiaeOhio State East HospitalComment on above:Performed By: #### CBC #### [facility] ([facility]) [address] [place] [address] [place] [address] VIRPlatelet mean volume (Bld) [Entitic vol]8.1 fLNormal7-12 [facility] HospitalComment on above:Performed By: #### CBC #### [facility] ([address] [place] [address] VIRPlatelets (Bld) [#/Vol]244 10*3/sJWnmtrc791-039FtcMvswju [facility] HospitalComment on above:Performed By: #### CBC #### [facility] ([address] [place] [address] VIRRBC COUNT4.67 X10E12/LNormal4.1-5.7ProMethodist Southlake HospitalComment on above:Performed By: #### CBC #### [facility] ([address] [place] [address] VIRWBC (Bld) [#/Vol]8.5 10*3/uLNormal4-11ProMethodist Southlake HospitalComment on above:Performed By: #### CBC #### [facility] ([address] [place] [address] VIRELECTROLYTE PANELon 36-11-7685Cvdov gap [Moles/Vol]8 mmol/L Normal5-15ProMethodist Southlake HospitalComment on above:Performed By: #### ELEC #### [facility] ([address] [place] [address] VIRChloride [Moles/Vol]102 mmol/YJcalmi06-820RvmTuiolpMethodist Southlake HospitalComment on above:Performed By: #### ELEC #### [facility] ([address] [place] [address] VIRCO2 [Moles/Vol]25 mmol/TUifxat29-29ZggVionwk [facility] HospitalComment on above:Performed By: #### ELEC #### [facility] ([address] [place] [address] VIRPotassium [Moles/Vol]3.9 mmol/LNormal3.5-5.0ProMethodist Southlake HospitalComment on above:Performed By: #### ELEC #### [facility] ([address] [place] [address] VIRSodium [Moles/Vol]135 mmol/TJsdijo509-934LwmDqmuwi [facility] HospitalComment on above:Performed By: #### ELEC #### [facility] ([address] [place] [address] VIRLIPID PROFILEon 77-85-0738Wmwhgnbwqsd [Mass/Vol]150 mg/dL Wdjocm863-929YaeUobkokMethodist Southlake HospitalComment on above:Performed By: #### LIPR #### [facility] ([facility]) [address] [place] [address] VIRCholesterol in HDL [Mass/Vol]61 mg/dLNormal>39ProMethodist Southlake HospitalComment on above:Result Comment: HDL <40 mg/dL - High Risk HDL > or = 40mg/dL- Desirable HDL >60 mg/dL - Negative RiskPerformed By: #### LIPR #### [facility] ([facility]) [address] [place] [address] VIRCholesterol in LDL [Mass/Vol]63 mg/dLNormal<130ProMethodist Southlake HospitalComment on above:Result Comment: LDL <100 mg/dL - Desirable LDL >160 mg/dL - High RiskPerformed By: #### LIPR #### [facility] ([facility]) [address] [place] [address] VIRCHOLESTEROL:HDL2.2Vhppsj5.0-5.0[facility] Comment on above:Performed By: #### LIPR #### [facility] ([facility]) [address] [place] [address] VIRTriglyceride [Mass/Vol]130 mg/nPIiborp31-119VeaLrqrwl [facility] HospitalComment on above:Performed By: #### LIPR #### [facility] ([facility]) [address] [place] [address] VIRVERY LOW ROARKSILPPM92 mg/dLNormal0-30ProMethodist Southlake HospitalComment on above:Performed By: #### LIPR #### [facility] ([facility]) [address] [place] [address] VIRTSHon 52-53-8644WEW2.16 uIU/mLNormal0.49-4.67ProMethodist Southlake HospitalComment on above:Performed By: #### TSH #### [facility] ([facility]) [address] [facility] [address] VIRVITAMIN D 25 HYDROXYon 35-83-6885JFAFJIA D 25 HYD TOT39.0 ng/qYMtjath02.0-100.0ProMethodist Southlake HospitalComment on above:Order Comment: Vitamin D status 25 [place] Vitamin D Deficiency <20 ng/mL Insufficiency 20-29 ng/mL Sufficiency 30-100 ng/mL Toxicity >100 ng/mL NOTE: A pediatric reference range has not been established by the rn procedure of this kit. The [place] [employer] recommends a Vitamin D level of = or >20ng/mL in infants and children.Performed By: #### VITD #### [facility] ([facility]) [address] [place] [address] VIRCBC AND AUTO DIFFon 78-09-2089DXJXMOHH BASOPHIL0.1 X10E9/L Normal0.0-0.2POhioHealth Doctors HospitalComment on above:Performed By: #### CBCA, THYR, 3051-0 #### [facility] ([id number]) [address] [place], [place] [address]CVJJXYFX NEUTROPHIL4.9 X10E9/LNormal1.5-6.6ProMethodist Southlake HospitalComment on above:Performed By: #### CBCA, THYR, 3051-0 #### [facility] ([id number]) [address], [address] [place], [place] [address]Gztleldat/100 WBC (Bld)1.3 %NormalProMethodist Southlake Hospital Comment on above:Performed By: #### CBCA, THYR, 3051-0 #### [facility] ([id number]) [address] [place], [place] [address]Cjcjaxxfavr (Bld) [#/Vol]0.3 10*3/uLNormal0.0-0.4[facility] HospitalComment on above:Performed By: #### CBCA, THYR, 0 #### [facility] ([id number]) [address] [place] [address]Bcztfotbqyj/100 WBC (Bld)3.5 %NormalProMethodist Southlake Hospital Comment on above:Performed By: #### CBCA, THYR, 0 #### [facility] ([id number]) [address], [facility] [address] [place], [place] [address]Oocvxcdscvj distribution width (RBC) [Ratio]13.5 %Normal 11.5-15.0[facility] HospitalComment on above:Performed By: #### CBCWillian, THYR, 0 #### [facility] ([id number]) [address] [place], [place] [address]Ifojegnbwk (Bld) [Volume fraction]41.0 %Kqxmrg41-77RoiYzfyptMethodist Southlake HospitalComment on above:Performed By: #### CBCA, THYR, 0 #### [facility] ([id number]) [address] [address] [place] [address]Tinlsocfqw (Bld) [Mass/Vol]13.3 g/yIHglzss48.0-17.0[facility] HospitalComment on above:Performed By: #### CBCA, THYR, 0 #### [facility] ([id number]) [address] [address] [place], [place] [address]Hzajzphtfnx (Bld) [#/Vol]2.6 10*3/uLNormal1.0-3.5POhioHealth Doctors HospitalComment on above:Performed By: #### CBCA, THYR, 0 #### [facility] ([id number]) [address] [place], [place] [address]Rgqowftzbyj/100 WBC (Bld)30.3 %NormalOhio State East Hospital Comment on above:Performed By: #### CBCA, THYR, 305-0 #### [facility] ([id number]) [address], [address] [place], [place] [address]GVJ (RBC) [Entitic mass]29.5 trZankix49-82RtbNryhuwOhio State East HospitalComment on above:Performed By: #### CBCA, THYR, 305-0 #### [facility] ([id number]) [address] [place], [place] [address]IASH (RBC) [Mass/Vol]32.3 g/mSFuwqfe41-39FnbLprgdzMethodist Southlake HospitalComment on above:Performed By: #### CBCA, THYR, 305-0 #### [facility] ([id number]) [address] [place], [place] [address]LCQ (RBC) [Entitic vol]91 sLIclxrb30-279EicFasnyw [facility] HospitalComment on above:Performed By: #### CBCA, THYR, 305-0 #### [facility] ([id number]) [address], [address] [place], [place] [address]Uboyghgpu (Bld) [#/Vol]0.8 10*3/uLNormal0-0.9[facility] HospitalComment on above:Performed By: #### CBCA, THYR, 305-0 #### [facility] ([id number]) [address], [address] [place], [place] [address]Bhbyyzunz/100 WBC (Bld)9.4 %NormalOhio State East Hospital Comment on above:Performed By: #### CBCA, THYR, 305-0 #### [facility] ([id number]) [address], [address] [place], [place] [address]Mdvvmrcmvjy/100 WBC (Bld)55.5 %NormalOhio State East Hospital Comment on above:Performed By: #### CBCWlilian, THYR, 3050-0 #### [facility] ([id number]) [address] [place] [address]Ccsuqtin mean volume (Bld) [Entitic vol]8.0 fLNormal7-12 [facility] HospitalComment on above:Performed By: #### CBCA, THYR, 3050-0 #### [facility] ([id number]) [address] [place] [address]Olftahtnb (Bld) [#/Vol]231 10*3/iTLaefkc672-234WevArxqts [facility] HospitalComment on above:Performed By: #### CBCWillian, THYR, 3050-0 #### [facility] ([id number]) [address] [place] [address]NGD COUNT4.49 X10E12/LNormal4.10-5.70[facility] Comment on above:Performed By: #### CBCA, THYR, 3050-0 #### [facility] ([id number]) [address], [address] [place], [place] [address]DAW (Bld) [#/Vol]8.8 10*3/uLNormal4.0-11.0[facility] HospitalComment on above:Performed By: #### CBCA, THYR, 305-0 #### [facility] ([id number]) [address], [address] [place] [address]RWSR T3on 39-47-4191Aszp T3 [Mass/Vol]2.89 pg/mLNormal2.50-3.90 [facility] HospitalComment on above:Performed By: #### CBCA, THYR, 3050-0 #### [facility] ([id number]) [address], [address] [place], [place] [address]USQYEVW PROFILEon 56-45-1921Ifju T4 [Mass/Vol]1.02 ng/dLNormal 0.61-1.60ProMethodist Southlake HospitalComment on above:Performed By: #### CBCA, THYR, 305-0 #### [facility] ([id number]) [address] [facility], [address] [place], [place] [address]SPW3.50 uIU/mLNormal0.49-4.67ProMethodist Southlake HospitalComment on above:Performed By: #### CBCA, THYR, 305-0 #### [facility] ([id number]) [address] [facility] [place], [place] [address]Azwuow Visiton 22-50-6104Cpgygb-up [id number] Leanna Nguyễn 1940 [facility] Provider Department Center 05/30/2024 AYSE VIVAR KADEEM Benitez Family History Problem Relation Age of Onset Coronary artery disease Brother Heart attack Brother Heart failure Brother Other Brother Family Status - Relation Status Age at Brother Level of Service:20791 [place] OFFICE/OUTPATIENT ESTABLISHED [facility] 30 [facility] HospitalOffice Visiton 59-87-9168Ebsxst-up visit [id number] Leanna Nguyễn 1940 [facility] Provider Department Center 06/24/2023 AYSE VIVAR KADEEM Benitez Family History Problem Relation Age of Onset Coronary artery disease Brother Heart attack Brother Heart failure Brother Other Brother Family Status - Relation Status Age at Brother Level of Service:41727 [place] OFFICE/OUTPATIENT ESTABLISHED LOW [facility] 20 [facility] HospitalCNOVon 15-13-7009GALTAtzgpt Visit ([facility]) LEANNA NGUYỄN ([id number]) 1940 M Date Time Provider Department 03/23/23 2:00 PM JODI BANERJEE During your visit today, we recorded the following information about you: Pulse Blood pressure 51/minute 151/68 Jodi Banerjee, DO 03/23/2023 2:41 PM Signed [facility] [place] Follow-up visit March 23, 2023 HPI: Overall Mr. Nguyễn, who is accompanied by his brother and [...] encounter he has moved and low lives [facility]. He states he does not [...] mainly his brother. He has seen by developmental therapist in 01/2023 with suggestion that he get a hearing aide but he refuses. After his last encounter he has followed up with cardiology concerning his heart rate that was auscultated on last encounter. They checked his heart rhythm and thought it was appropriate. This was as via physician in [place]. They deny other changes to his health and/or medications except for the above since our last encounter. PAST MEDICAL HISTORY Diagnosis Date Arthritis Carotid stenosis Coronary artery disease Coronary atherosclerosis of unspecified type of vessel, brevig mission or graft 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 Dyslipidemia Hypertension Hypertension Hypothyroid Lumbar disc disease Unspecified hypothyroidism Hypothyroidism PAST SURGICAL HISTORY Procedure Laterality Date PAST SURGICAL HISTORY OF CABG times 6 left internal thoracic artery to the zux-jg-lrbvdy left anterior descending artery, reverse saphenous vein [...] tablet by mouth onc (more content not included)...NormalMiddletown HospitalPNon 49-77-2337IFMLSqvpnjoem (NEUAV4) LEANNA NGUYỄN ([id number]) 1940 M Date Time Provider Department 03/23/23 JODI BANERJEE NEUAV4 During your visit today, we recorded the following information about you: Terri Garcia 03/23/2023 3:31 PM Signed 03/23/2023 After visit Summary faxed to Dr Jeffers with confirmation received. PSS forgot to have pt complete release of information forms. This nurse has placed 2 copies in US mail for pt to complete and take to facility to release information to our office. POA was advised via voice message to send a LiveTop msg if he had any further question. Terri Garcia Assistant Professor Of Criminal Justice Allergies As of Date: 03/23/2023 Noted Allergy Reaction LIPITOR (ATORVASTATIN CALCIUM) 03/28/2014 4 - Hives Date Reviewed: 03/23/2023 Reviewed by: Terri Garcia - Fully Assessed Prescriptions as of 03/23/2023 [...] testing [Z01.818] 05/27/2011 Coronary artery disease involving brevig mission heart *05/27/2011 Post-operative pain [G89.18] 05/28/2011 Stress hyperglycemia [R73.9] 05/28/2011 06/01/2011 Mechanically assisted ventilation [Z99.11] 05/28/2011 05/29/2011 Hypotension [I95.9] 05/28/2011 05/30/2011 Hypothyroid [E03.9] 05/28/2011 Hyperlipidemia [E78.5] 05/28/2011 SUMMARY [V999.95] 05/30/2011 Hypertension [I10] 05/30/2011 S/P CABG (coronary artery bypass graft), PARRA t*02/20/2020 Encounter Status:Closed by TERRI GARCAI on 03/23/23[facility] CHEST WO CONon 40-88-1080HF CHEST WO CONEXAMINATION: CT CHEST WO CON HISTORY: Cell-mediated immune reaction ; [...] Electronically authenticated by: LEATHA GAVIRIA Date: 2022-10-27 10:00[facility] CampusLIPID PROFILEon 50-62-1104WSBO-HDL RATIO NORMSEE [facility] HospitalComasc[facility] on above:Result Comment: 3.3 - 4.4 LOW RISK 4.4 - 7.1 AVERAGE RISK 7.1 - 11.0 MODERATE RISK >11.0 HIGH RISKPerformed By: #### LIPID, CMP ####[facility] [address] [place] [address]Dr. Yilan ChangCholesterol [Mass/Vol]149 mg/dLNormal<=200[facility] Comment on above:Performed By: #### LIPID, CMP ####[facility] [address] [place] [address]Dr. Yilan ChangCholesterol in HDL [Mass/Vol]83 mg/dLCritically rivd42-93Zai [facility] HealthComment on above:Performed By: #### LIPID, CMP ####[facility] [address] [place], [place] [address]Dr. Yilan ChangCholesterol in LDL [Mass/Vol]58.6 mg/dLTrinity Health System East CampusComment on above:Performed By: #### LIPID, CMP ####[facility] [address] [place] [address]Dr. Yilan ChangCholesterol.total/Cholesterol in HDL [Mass ratio]1.8 {ratio}NormalGalion Community HospitalComment on above:Performed By: #### LIPID, CMP ####[facility] [address] [place] [address]Dr. Yilan ChangHDL NORMAL> or = 60 mg/dl - LOW CARDIOVASCULAR RISK <40 mg/dl - HIGH CARDIOVASCULAR RISKTrinity Health System East CampusComascension providence hospital on above:Performed By: #### LIPID, CMP ####[facility] [address] [place] [address]Dr. Yilan ChangLDL CALC NORMALSEE [facility] HospitalComment on above: Result Comment: <100 mg/dl OPTIMAL 100 - 129 mg/dl NEAR OR ABOVE OPTIMAL 130 - 159 mg/dl BORDERLINE HIGH 160 - 189 mg/dl HIGH >190 mg/dl VERY HIGHPerformed By: #### LIPID, CMP ####[facility] [address] [place] [address]Dr. Yilan ChangTriglyceride [Mass/Vol]37 mg/dLNormal<=150The [facility] HealthComment on above:Performed By: #### LIPID, CMP ####[facility] [address] [place] [address]Dr. Yilan ChangVLDL CALC7.4 mg/dLNormalThe Premier HealthComment on above:Performed By: #### LIPID, CMP ####[facility] [address] [place], [place] [address]Dr. Yilan ChangPROF 14(COMP METB)on 98-68-4270Cmsebdo [Mass/Vol]3.8 g/dLNormal 3.4-5.0The [facility] HealthComment on above:Performed By: #### LIPID, CMP ####[facility] [address] [place], [place] [address]Dr. Yilan ChangAlbumin/Globulin [Mass ratio]1.0 {ratio}NormalThe [facility] Comment on above:Performed By: #### LIPID, CMP ####[facility] [address] [place] [address]Dr. Yilan ChangALP [Catalytic activity/Vol]98 U/CHsiyzk40-611Byw [facility] HealthComment on above:Performed By: #### LIPID, CMP ####[facility] [address] [place] [address]Dr. Yilan ChangALT [Catalytic activity/Vol]25 U/L Ycabyg87-87Zmc [facility] HealthComment on above:Performed By: #### LIPID, CMP ####[facility] [address] [place] [address]Dr. Yilan ChangAnion gap [Moles/Vol]15.5 mmol/LNormalThe Premier HealthComment on above:Performed By: #### LIPID, CMP ####[facility] [address] [place] [address]Dr. Yilan ChangAST [Catalytic activity/Vol]21 U/L Xosyta70-26Qkm [facility] HealthComment on above:Performed By: #### LIPID, CMP ####[facility] [address] [place] [address]Dr. Yilan ChangBilirubin [Mass/Vol]0.5 mg/dLNormal0.2-1.0The [facility] Comment on above:Performed By: #### LIPID, CMP ####[facility] [address] [place] [address]Dr. Yilan ChangCalcium [Mass/Vol]9.5 mg/dLNormal8.5-10.1The [facility] HealthComment on above:Performed By: #### LIPID, CMP ####[facility] [address] [place], [place] [address]Dr. Yilan ChangChloride [Moles/Vol]107 mmol/LNormal 98-107The [facility] HealthComment on above:Performed By: #### LIPID, CMP ####[facility] [address] [place], [place] [address]Dr. Yilan ChangCO2 [Moles/Vol]23.0 mmol/PUvxdts34.0-32.0The [facility] HealthComment on above:Performed By: #### LIPID, CMP ####[facility] [address]uc[address] [place], [place] [address]Dr. Yilan ChangCreatinine [Mass/Vol]1.75 mg/dLCritically high0.70-1.30The [facility] HealthComment on above:Performed By: #### LIPID, CMP ####[facility] [address]ynqkrk[address] [place], [place] [address]Dr. Yilan ChangEGFR-AF QUUKAVUK77 mL/min/1.83j3Oyqnagjzri low>=60The Premier HealthComment on above:Performed By: #### LIPID, CMP ####[facility] [address] [place], [place] [address]Dr. Yilan ChangEGFR- NON AF YOZRQRZK16 mL/min/1.07m3Aajxivrjxi low>=60The Premier HealthComment on above:Performed By: #### LIPID, CMP ####[facility] [address] [place] [address]Dr. Yilan ChangGlobulin (S) [Mass/Vol]3.7 g/dL NormalThe Premier HealthComment on above:Performed By: #### LIPID, CMP ####[facility] [address] [place], [place] [address]Dr. Yilan ChangGlucose [Mass/Vol]83 mg/bDNvbshh20-345Rro [facility] HealthComment on above:Performed By: #### LIPID, CMP ####[facility] [address] [place], [place] [address]Dr. Yilan ChangPotassium [Moles/Vol]4.5 mmol/L Normal3.5-5.1The Premier HealthComment on above:Performed By: #### LIPID, CMP ####[facility] [address] [place], [place] [address]Dr. Yilan ChangProtein [Mass/Vol]7.5 g/dLNormal6.4-8.2The [facility] HealthComment on above:Performed By: #### LIPID, CMP ####[facility] [address] [place], [place] [address]Dr. Yilan ChangSodium [Moles/Vol]141 mmol/L Goxxhn423-757Miv [facility] HealthComment on above:Performed By: #### LIPID, CMP ####[facility] [address] [place], [place] [address]Dr. Yilan ChangUrea nitrogen [Mass/Vol]46.0 mg/dLCritically high7.0-18.0The [facility] HealthComment on above:Performed By: #### LIPID, CMP ####[facility] [address] [place], [place] [address]Dr. Yilan ChangUrea nitrogen/Creatinine [Mass ratio]26.3 mg/mgNormalThe Premier HealthComment on above:Performed By: #### LIPID, CMP ####[facility] [address]wff[address] [place], [place] [address]Dr. Yilan Chang25(OH)D3 SerPl-mCncon 08-27-2022 25-hydroxyvitamin D3 [Mass/Vol]28.6 ng/mLLow31.0-80.0[facility]on HospitalComment on above:Order Comment: Specimen Type: BLOOD SPECIMEN Ordering Facility: [facility] Address: [address] [place] [id number] Comment: Classification of 25 [place] Vitamin D status: Deficiency/Insufficiency: < or = 30 ng/ml. Sufficiency/Optimal Levels: 31-80 ng/mL Toxicity: > 100 ng/mL. Test performed by chemiluminescent immunoassay.Performed By: #### 1989-3 #### [facility] CLIA [id number] [id number] [place], [place] [id number] [facility] CENTERCNOVon 51-11-7319LGNKOcfltd Visit (NEUAV4) LEANNA NGUYỄN Torey ([id number]) 1940 M Date Time Provider Department 08/27/22 1:00 PM JODI BANERJEEAV4 During your visit today, we recorded the following information about you: Pulse Blood pressure 69/minute 156/70 Jodi Banerjee DO 08/27/2022 2:35 PM Addendum [facility] [place] New Patient Consultation August 27, 2022 HPI: Mr. 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 marketing manager at the facility he is at [...] Coronary atherosclerosis of unspecified type of vessel, brevig mission or graft 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 Dyslipidemia Hypertension Hypertension Hypothyroid Lumbar disc disease Unspecified hypothyroidism Hypothyroidism PAST SURGICAL HISTORY Procedure Laterality Date PAST SURGICAL HISTORY OF CABG times 6 left internal thoracic artery to the riq-um-rmjkyr left anterior descending artery, reverse saphenous vein [...] taking: Reported on 08/07 (more content not included)...[facility] HospitalRebull[facility] community hospitaln and Treponema pallidum IgG and IgM [Interp]on 08-27-2022 SYPHILIS INTERPRETATIONCannot exclude recent Treponemal infection if specimen collected within 7-10 days after appearance of suspect lesions or 2-3 weeks after an exposure. Clinical correlation is required.[facility] CenterComment on above:Order Comment: Specimen Type: BLOOD SPECIMEN Ordering Facility: [facility] Address: [address] [place] [id number] By: #### [id number] #### [facility] CLIA [id number] [address] [facility] [place] [address] [place] pallidum IgG+IgM IA Ql (S)Non-ReactiveNormalNonreactiveFriona HospitalComment on above:Order Comment: Specimen Type: BLOOD SPECIMEN Ordering Facility: [facility] Address: [address] [place], [place] [id number] By: #### [id number] #### [facility] CLIA [id number] [address] [facility] [address] [id number] [place], [place] [address] 07-[facility]-2022 Creatinine [Mass/Vol]2.09 mg/dLCritically high0.70-1.30[facility] Comment on above:Performed By: #### CREA #### [facility] [address] [place] [address] Dr. Aissatou MaynardGFR-AF BLHMSRAU09 mL/min/1.84y4Mgneuecoxf low>=60The [facility] HealthComment on above:Performed By: #### CREA #### [facility] [address] [place] [address] Dr. Aissatou MaynardGFR-NON AF FPNBHVXM95 mL/min/1.97a8Gtdwjmbujl low>=60The [facility] HealthComment on above:Performed By: #### CREA #### [facility] [address] [place] [address] Dr. Aissatou VásquezMRI BRAIN WO CONon [id number] BRAIN WO CONEXAMINATION: MRI BRAIN WO CON, 07/11/2022 1:23 PM [...] prior MRI study. Electronically authenticated by: LEATHA TAYLORLEONARD Date: 2022-07-11 15:11NoAultman Orrville HospitalCULTURE BLOODon [id number] examination of blood, cultureCulture Observations: Pediatric bottle positive; Called BCID: Enterobacterales to Linda Flores RN Isolate 1 [employer]oe[employer] agglomerans Growth of ORGANISM 1 [employer]omer[employer] ANTIBIOTIC M.I.C RX STATUS Amoxicillin/Clavulanic Acid S P Cefepime S P Ceftriaxone S P Cefuroxime I P Ciprofloxacin S P Gentamicin S P Levofloxacin S P Meropenem S P Tetracycline S P Tobramycin S PNormalThe [facility] HealthComment on above:Performed By: #### BLDCX2 ####[facility] [address] [address]Dr. Aissatou Campbell AUTO DIFFon [id number] #0.0 103/ulNormal0.0-0.1The [facility] HealthComment on above:Performed By: #### LIVER, BMP, HSTROPN #### [facility] [address] [address] [address] Aissatou VásquezBasophils/100 WBC (Bld)0.3 %Normal0.2-2.0The [facility] Comment on above:Performed By: #### LIVER, BMP, HSTROPN #### [facility] [address] [address] [address] Aissatou Bragg #0.0 103/ulNormal0.0-0.7The [facility] HealthComment on above: Performed By: #### LIVER BMP, HSTROPN #### [facility] [address] [address] [address] Reyez ChangEosinophils/100 WBC (Bld)0.6 %Critically low0.9-7.0The [facility] HealthComment on above:Performed By: #### LIVER, BMP, HSTROPN #### [facility] [address] [place] [address] Dr. Aissatou Maynardrythrocyte distribution width (RBC) [Ratio]13.7 %Anyvuf91.0-15.0 The [facility]ment on above:Performed By: #### LIVER, BMP, HSTROPN #### [facility] [address] [place] [address] Dr. Aissatou VásquezHematocrit (Bld) [Volume fraction]34.2 %Critically low42.0-54.0 The [facility] HealthComment on above:Performed By: #### LIVER, BMP, HSTROPN #### [facility] [address] [place] [address] Dr. Aissatou VásquezHemoglobin (Bld) [Mass/Vol]10.7 g/dLCritically low14.0-18.0The [facility]ment on above:Performed By: #### LIVER, BMP, HSTROPN #### [facility] [address] [place] [address] Dr. Aissatou Brooks #0.02 10e3/ulNormal0.00-0.03The [facility] on above:Performed By: #### LIVER, BMP, HSTROPN #### [facility] [address] [place] [address] Dr. Aissatou Brooks %0.3 %Normal0.0-0.5The [facility] on above: Performed By: #### LIVER, BMP, HSTROPN #### [facility] [address] [place] [address] Dr. Aissatou Gonzalez #1.7 103/ulNormal1.2-3.8The [facility] HealthComment on above:Performed By: #### LIVER, BMP, HSTROPN #### [facility] [address] [place] [address] Dr. Aissatou Millermphocytes/100 WBC (Bld)25.6 %Lhfwmm35.5-60.0The [facility] HealthComment on above:Performed By: #### LIVER, BMP, HSTROPN #### [facility] [address] [place] [address] Dr. Aissatou Penaloza DIFF REQNONormalThe Premier HealthComment on above: Performed By: #### LIVER, BMP, HSTROPN #### [facility] [address] [place] [address] Dr. Aissatou Wilson (RBC) [Entitic mass]29.6 wvEecufa28.9-34.0The [facility] HospitalComment on above:Performed By: #### LIVER, BMP, HSTROPN #### [facility] [address] [place] [address] Dr. Aissatou VásquezHEALTH SYSTEM (RBC) [Mass/Vol]31.3 g/gPBjvtki53.9-35.2The [facility] HospitalComment on above:Performed By: #### LIVER, BMP, HSTROPN #### [facility] [address] [place] [address] Dr. Aissatou Wilson (RBC) [Entitic vol]94.5 fLCritically high80.0-94.0The [facility] HealthComment on above:Performed By: #### LIVER, BMP, HSTROPN #### [facility] [address] [place] [address] Dr. Aissatou Olivo #0.7 103/ulNormal0.3-0.8The [facility] HealthComment on above:Performed By: #### LIVER, BMP, HSTROPN #### [facility] [address] [place] [address] Dr. Aissatou Ibrahimocytes/100 WBC (Bld)11.2 %Normal1.7-12.0[facility] Comment on above:Performed By: #### LIVER, BMP, HSTROPN #### [facility] [address] [place] [address] Dr. Aissatou Donaldson #4.0 103/ulNormal1.4-6.5The [facility] HealthComment on above:Performed By: #### LIVER, BMP, HSTROPN #### [facility] [address] [place] [address] Dr. Aissatou Robbinsutrophils/100 WBC (Bld)62.0 %Galvrw31.0-75.0The [facility] on above:Performed By: #### LIVER, BMP, HSTROPN #### [facility] [address] [place] [address] Dr. Aissatou Saenzlet mean volume (Bld) [Entitic vol]10.4 fLNormal9.5-13.5The [facility] HealthComment on above:Performed By: #### LIVER, BMP, HSTROPN #### [facility] [address] [place] [address] Dr. Aissatuo VásquezPLT134 103/ulCritically aqb299-997Pwr [facility] HealthComment on above:Performed By: #### LIVER, BMP, HSTROPN #### [facility] [address] [place] [address] Dr. Aissatou VásquezRBC3.62 106/ulCritically low4.70-6.10The [facility] on above:Performed By: #### LIVER, BMP, HSTROPN #### [facility] [address] [place] [address] Dr. Aissatou VásquezWBC6.5 103/ulNormal4.0-11.0The [facility] on above: Performed By: #### LIVER, BMP, HSTROPN #### [facility] [address] [place] [address] Dr. Aissatou Segura [id number] [Catalytic activity/Vol]149 U/XGmvfbp08-565Xhz [facility] on above:Performed By: #### LIVER, BMP, HSTROPN #### [facility] [address] [place] [address] Dr. Aissatou VásquezMAGNESIUMbailey [id number] [Mass/Vol]1.7 mg/dLCritically low 1.8-2.4The [facility] Hospitalment on above:Performed By: #### LIVER, BMP, HSTROPN #### [facility] [address] [place] [address] Dr. iAssatou AmadoUSon 71-67-7228Tbxzmmths [Mass/Vol]3.6 mg/dLNormal2.6-4.7 The [facility] HealthComment on above:Performed By: #### LIVER, BMP, HSTROPN #### [facility] [address] [address] [address] Aissatou VásquezPROF 14(COMP METB)on [id number] [Mass/Vol]2.8 g/dL Critically low3.4-5.0The [facility] HealthComment on above:Performed By: #### LIVER, BMP, HSTROPN #### [facility] [address] [place] [address] Dr. Aissatou VásquezAlbumin/Globulin [Mass ratio]0.9 {ratio}NormalThe [facility] HealthComment on above:Performed By: #### LIVER, BMP, HSTROPN #### [facility] [address] [place] [address] Dr. Aissatou Massey [Catalytic activity/Vol]86 U/GVtvmqt72-703Xhs [facility] HealthComment on above:Performed By: #### LIVER, BMP, HSTROPN #### [facility] [address] [place] [address] Dr. Aissatou Borges [Catalytic activity/Vol]50 U/CKukrrk87-43Xqq [facility] HealthComment on above:Performed By: #### LIVER, BMP, HSTROPN #### [facility] [address] [place] [address] Dr. Aissatou Vasquez gap [Moles/Vol]11.6 mmol/LNormalThe [facility] Comment on above:Performed By: #### LIVER, BMP, HSTROPN #### [facility] [address] [place] [address] Dr. Aissatou Lucio [Catalytic activity/Vol]41 U/LCritically gmzy18-09Zpx [facility] HealthComment on above:Performed By: #### LIVER, BMP, HSTROPN #### [facility] [address] [place] [address] Dr. Aissatou VásquezBilirubin [Mass/Vol]0.4 mg/dLNormal0.2-1.0[facility] Comment on above:Performed By: #### LIVER, BMP, HSTROPN #### [facility] [address] [place] [address] Dr. Aissatou VásquezCalcium [Mass/Vol]8.7 mg/dLNormal8.5-10.1The [facility] Comment on above:Performed By: #### LIVER, BMP, HSTROPN #### [facility] [address] [place] [address] Dr. Aissatou VásquezChloride [Moles/Vol]106 mmol/HCaawlf65-748Qbl [facility] Comment on above:Performed By: #### LIVER, BMP, HSTROPN #### [facility] [address] [place] [address] Dr. Aissatou VásquezCO2 [Moles/Vol]27.0 mmol/NApokwv67.0-32.0The [facility] Comment on above:Performed By: #### LIVER, BMP, HSTROPN #### [facility] [address] [place] [address] Dr. Aissatou VásquezCreatinine [Mass/Vol]1.99 mg/dLCritically high0.70-1.30The [facility] HealthComment on above:Performed By: #### LIVER, BMP, HSTROPN #### [facility] [address] [place] [address] Dr. Reyez ChangEGFR-AF FXVNPBPL55 mL/min/1.84l2Epwnosktem low>=60The [facility] HealthComment on above:Performed By: #### LIVER, BMP, HSTROPN #### [facility] [address] [place] [address] Dr. Reyez ChangEGFR-NON AF MQNPCMOL77 mL/min/1.51t7Wbdqzqhykk low>=60The [facility] HealthComment on above:Performed By: #### LIVER, BMP, HSTROPN #### [facility] [address] [address] [address] Aissatou VásquezGlobulin (S) [Mass/Vol]3.1 g/dLNoAultman Orrville HospitalComment on above:Performed By: #### LIVER, BMP, HSTROPN #### [facility] [address] [address] [address] Aissatou VásquezGlucose [Mass/Vol]93 mg/eDGpsoqk99-901Zfq [facility] Comment on above:Performed By: #### LIVER, BMP, HSTROPN #### [facility] [address] [address] [address] Aissatou VásquezPotassium [Moles/Vol]4.6 mmol/LNormal3.5-5.1The [facility] Comment on above:Performed By: #### LIVER, BMP, HSTROPN #### [facility] [address] [place] [address] Dr. Aissatou VásquezProtein [Mass/Vol]5.9 g/dLCritically low6.4-8.2[facility] HospitalComment on above:Performed By: #### LIVER, BMP, HSTROPN #### [facility] [address] [place] [address] Dr. Aissatou VásquezSodium [Moles/Vol]140 mmol/XIxahnm441-038Bfb [facility] Comment on above:Performed By: #### LIVER, BMP, HSTROPN #### [facility] [address] [place] [address] Dr. Aissatou VásquezUrea nitrogen [Mass/Vol]50.0 mg/dLCritically high7.0-18.0The [facility] HealthComment on above:Performed By: #### LIVER, BMP, HSTROPN #### [facility] [address] [place] [address] Dr. Aissatou Gregorio nitrogen/Creatinine [Mass ratio]25.1 mg/mgNoAultman Orrville HospitalComment on above:Performed By: #### LIVER, BMP, HSTROPN #### [facility] [address] [place] [address] Dr. Aissatou SaldañaIMEon [id number] Coag (PPP) [Relative time]1.05 {INR} NormalGalion Community HospitalComment on above:Performed By: #### CREA #### [facility] [address] [place] [address] Dr. Aissatou Rodríguez GUIDELINESSEE BELOWTrinity Health System East CampusComment on above:Result Comment: DESIRED INR: 2.0 - 3.0 CONDITIONS NOT LISTED BELOW 2.5 - 3.5 FOR PROSTHETIC HEART VALVE REPLACEMENT 2.5 - 3.5 RECURRENT THROMBOSIS Performed By: #### CREA #### [facility] [address] [place] [address] Dr. Aissatou VásquezPT Coag (PPP) [Time]11.3 sNormal9.0-11.6ThTriHealth [facility] Comment on above:Performed By: #### CREA #### [facility] [address] [place] [address] Dr. Aissatou Campbell AUTO DIFFon [id number] #0.0 103/ulNormal0.0-0.1[facility] HospitalComment on above:Performed By: #### LIVER, BMP, HSTROPN #### [facility] [address] [place] [address] Dr. Aissatou VásquezBasophils/100 WBC (Bld)0.3 %Normal0.2-2.0[facility] Comment on above:Performed By: #### LIVER, BMP, HSTROPN #### [facility] [address] [place] [address] Dr. Aissatou Bragg #0.0 103/ulNormal0.0-0.7The [facility]Comment on above: Performed By: #### LIVER, BMP, HSTROPN #### [facility] [address] [place] [address] Dr. Aissatou Maynardosinophils/100 WBC (Bld)0.3 %Critically low0.9-7.0The [facility]Comment on above:Performed By: #### LIVER, BMP, HSTROPN #### [facility] [address] [place] [address] Dr. Aissatou Maynardrythrocyte distribution width (RBC) [Ratio]13.8 %Hlzxjd89.0-15.0 [facility] on above:Performed By: #### LIVER, BMP, HSTROPN #### [facility] [address] [place] [address] Dr. Aissatou VásquezHematocrit (Bld) [Volume fraction]31.7 %Critically low42.0-54.0 The [facility] HealthComment on above:Performed By: #### LIVER, BMP, HSTROPN #### [facility] [address] [place] [address] Dr. Aissatou VásquezHemoglobin (Bld) [Mass/Vol]10.2 g/dLCritically low14.0-18.0The [facility] HealthComment on above:Performed By: #### LIVER, BMP, HSTROPN #### [facility] [address] [place] [address] Dr. Aissatou Brooks #0.02 10e3/ulNormal0.00-0.03The [facility] on above:Performed By: #### LIVER, BMP, HSTROPN #### [facility] [address] [place] [address] Dr. Aissatou Brooks %0.3 %Normal0.0-0.5The [facility] on above: Performed By: #### LIVER, BMP, HSTROPN #### [facility] [address] [place] [address] Dr. Aissatou Gonzalez #1.5 103/ulNormal1.2-3.8The [facility] HealthComment on above:Performed By: #### LIVER, BMP, HSTROPN #### [facility] [address] [place] [address] Dr. Aissatou Millermphocytes/100 WBC (Bld)20.3 %Critically low20.5-60.0The [facility] Hospitalment on above:Performed By: #### LIVER, BMP, HSTROPN #### [facility] [address] [place] [address] Dr. Aissatou DickensUAL DIFF REQNONormalThe [facility] HealthComment on above: Performed By: #### LIVER, BMP, HSTROPN #### [facility] [address] [place] [address] Dr. Aissatou Wilson (RBC) [Entitic mass]30.3 ddHqincu25.9-34.0The [facility] HospitalComment on above:Performed By: #### LIVER, BMP, HSTROPN #### [facility] [address] [place] [address] Dr. Aissatou VásquezHEALTH SYSTEM (RBC) [Mass/Vol]32.2 g/xWUhmrdu93.9-35.2The [facility] HospitalComment on above:Performed By: #### LIVER, BMP, HSTROPN #### [facility] [address] [place] [address] Dr. Aissatou Wilson (RBC) [Entitic vol]94.1 fLCritically high80.0-94.0The [facility] HealthComment on above:Performed By: #### LIVER, BMP, HSTROPN #### [facility] [address] [place] [address] Dr. Aissatou Olivo #0.7 103/ulNormal0.3-0.8The [facility] HealthComment on above:Performed By: #### LIVER, BMP, HSTROPN #### [facility] [address] [place] [address] Dr. Aissatou Ibrahimocytes/100 WBC (Bld)9.9 %Normal1.7-12.0[facility] Comment on above:Performed By: #### LIVER, BMP, HSTROPN #### [facility] [address] [place] [address] Dr. Aissatou Donaldson #4.9 103/ulNormal1.4-6.5The [facility] HealthComment on above:Performed By: #### LIVER, BMP, HSTROPN #### [facility] [address] [place], [place] [id number] Dr. Aissatou Robbinsutrophils/100 WBC (Bld)68.9 %Fefrdk75.0-75.0The [facility] Hospitalment on above:Performed By: #### LIVER, BMP, HSTROPN #### [facility] [address] [place] [address] Dr. Aissatou Saenzlet mean volume (Bld) [Entitic vol]10.7 fLNormal9.5-13.5The [facility] HealthComment on above:Performed By: #### LIVER, BMP, HSTROPN #### [facility] [address] [place] [address] Dr. Aissatou VásquezPLT141 103/ulCritically swn085-874Lfb [facility] on above:Performed By: #### LIVER, BMP, HSTROPN #### [facility] [address] [place] [address] Dr. Aissatou VásquezRBC3.37 106/ulCritically low4.70-6.10The [facility]Com[facility] on above:Performed By: #### LIVER, BMP, HSTROPN #### [facility] [address] [place] [address] Dr. Aissatou VásquezWBC7.1 103/ulNormal4.0-11.0The [facility] on above: Performed By: #### LIVER, BMP, HSTROPN #### [facility] [address] [place] [address] Dr. Aissatou Segura [id number] [Catalytic activity/Vol]331 U/LCritically high 39-308The [facility] on above:Performed By: #### LIVER, BMP, HSTROPN #### [facility] [address] [place] [address] Dr. Aissatou VásquezCT ABD/PELVIS WO CONon [id number] ABD/PELVIS WO CONEXAMINATION: CT ABD/PELVIS WO CON, 07/03/2022, 7:00 AM [...] Electronically authenticated by: STEPHEN ROUSE Date: 2022-07-03 11:06NormMarietta Memorial HospitalCULTURE BLOODon [id number] examination of blood, cultureCulture Observations: NO GROWTH AT 5 DAYS.NormalGalion Community HospitalComment on above:Performed By: #### BLDCX2 ####[facility] [address] [address]Dr. Aissatou VásquezMicroscopic examination of blood, cultureCulture Observations: NO GROWTH AT 5 DAYS.NormalGalion Community HospitalComment on above:Performed By: #### BLDCX1 ####[facility] [address] [id number]. Aissatou LaureanoGNESIUMon 61-56-8963Ostzdqgbt [Mass/Vol]1.8 mg/dLNormal 1.8-2.4The [facility] HealthComment on above:Performed By: #### LIVER, BMP, HSTROPN #### [facility] [address] [address] [address] Aissatou VásquezPHOSPHORUSon 26-97-1740Leyezwwpd [Mass/Vol]4.0 mg/dLNormal2.6-4.7 The [facility] HealthComment on above:Performed By: #### LIVER, BMP, HSTROPN #### [facility] [address] [place] [address] Dr. Aissatou VásquezPOINT OF CARE GLUCOSEon 91-06-7452Xhvdury [Mass/Vol]77 mg/dL Wchxie90-141Jfc [facility] HealthComment on above:Performed By: #### CREA #### [facility] [address] [place] [address] Dr. Aissatou VásquezPROF 14(COMP METB)on 10-98-4541Ayusbxo [Mass/Vol]2.6 g/dL Critically low3.4-5.0The [facility] HealthComment on above:Performed By: #### LIVER, BMP, HSTROPN #### [facility] [address] [place] [address] Dr. Aissatou VásquezAlbumin/Globulin [Mass ratio]0.9 {ratio}NormalThe [facility] HealthComment on above:Performed By: #### LIVER, BMP, HSTROPN #### [facility] [address] [place] [address] Dr. Aissatou Massey [Catalytic activity/Vol]81 U/DIlnwtt25-800Egr [facility] HealthComment on above:Performed By: #### LIVER, BMP, HSTROPN #### [facility] [address] [place] [address] Dr. Aissatou Borges [Catalytic activity/Vol]46 U/AAolbtk35-25Tlc [facility] HealthComment on above:Performed By: #### LIVER, BMP, HSTROPN #### [facility] [address] [place] [address] Dr. Aissatou Vasquez gap [Moles/Vol]11.9 mmol/LNormalThe [facility] on above:Performed By: #### LIVER, BMP, HSTROPN #### [facility] [address] [place] [address] Dr. Aissatou VásquezAST [Catalytic activity/Vol]45 U/LCritically zaer60-18Eob [facility] HealthComment on above:Performed By: #### LIVER, BMP, HSTROPN #### [facility] [address] [address] [address] Aissatou VásquezBilirubin [Mass/Vol]0.2 mg/dLNormal0.2-1.0The [facility] Comment on above:Performed By: #### LIVER, BMP, HSTROPN #### [facility] [address] [place] [address] Dr. Aissatou VásquezCalcium [Mass/Vol]8.5 mg/dLNormal8.5-10.1The [facility] Comment on above:Performed By: #### LIVER, BMP, HSTROPN #### [facility] [address] [place] [address] Dr. Aissatou VásquezChloride [Moles/Vol]108 mmol/LCritically ljmh76-692Zrt [facility] HealthComment on above:Performed By: #### LIVER, BMP, HSTROPN #### [facility] [address] [place] [address] Dr. Aissatou VásquezCO2 [Moles/Vol]25.9 mmol/FUdszhu72.0-32.0The [facility] Comment on above:Performed By: #### LIVER, BMP, HSTROPN #### [facility] [address] [place] [address] Dr. Aissatou VásquezCreatinine [Mass/Vol]2.34 mg/dLCritically high0.70-1.30The [facility] HealthComment on above:Performed By: #### LIVER, BMP, HSTROPN #### [facility] [address] [place] [address] Dr. Aissatou MaynardGFR-AF GVICFSPX46 mL/min/1.40t1Zkklqztkdk low>=60The [facility] HealthComment on above:Performed By: #### LIVER, BMP, HSTROPN #### [facility] [address] [place] [address] Dr. Aissatou MaynardGFR-NON AF YJWMPVDB98 mL/min/1.90n3Mdocvpwqcp low>=60The [facility] HealthComment on above:Performed By: #### LIVER, BMP, HSTROPN #### [facility] [address] [address] [address] Aissatou VásquezGlobulin (S) [Mass/Vol]3.0 g/dLNoAultman Orrville HospitalComment on above:Performed By: #### LIVER, BMP, HSTROPN #### [facility] [address] [address] [address] Aissatou VásquezGlucose [Mass/Vol]93 mg/wILgvlmx20-207HakGalion Community Hospital Comment on above:Performed By: #### LIVER, BMP, HSTROPN #### [facility] [address] [place] [address] Dr. Aissatou VásquezPotassium [Moles/Vol]4.8 mmol/LNormal3.5-5.1The [facility] Comment on above:Performed By: #### LIVER, BMP, HSTROPN #### [facility] [address] [address] [address] Aissatou VásquezProtein [Mass/Vol]5.6 g/dLCritically low6.4-8.2The [facility] HealthComment on above:Performed By: #### LIVER, BMP, HSTROPN #### [facility] [address] [place] [address] Dr. Aissatou VásquezSodium [Moles/Vol]141 mmol/QHkweqs437-044Qbj [facility] Comment on above:Performed By: #### LIVER, BMP, HSTROPN #### [facility] [address] [place] [address] Dr. Aissatou VásquezUrea nitrogen [Mass/Vol]61.0 mg/dLCritically high7.0-18.0The [facility] HealthComment on above:Performed By: #### LIVER, BMP, HSTROPN #### [facility] [address] [place] [address] Dr. Aissatou VásquezUrea nitrogen/Creatinine [Mass ratio]26.1 mg/mgNoRegional Medical Center HospitalComment on above:Performed By: #### LIVER, BMP, HSTROPN #### [facility] [address] [address] [address] Aissatou VásquezPROTIMEon [id number] Coag (PPP) [Relative time]1.12 {INR} NormalThe [facility] on above:Performed By: #### CREA #### [facility] [address] [place] [address] Dr. Aissatou Rodríguez GUIDELINESSEE BELOWTrinity Health System East CampusComment on above:Result Comment: DESIRED INR: 2.0 - 3.0 CONDITIONS NOT LISTED BELOW 2.5 - 3.5 FOR PROSTHETIC HEART VALVE REPLACEMENT 2.5 - 3.5 RECURRENT THROMBOSIS Performed By: #### CREA #### [facility] [address] [place] [address] Dr. Aissatou VásquezPT Coag (PPP) [Time]12.0 sCritically high9.0-11.6ThTriHealth Bethesda Butler HospitalComment on above:Performed By: #### CREA #### [facility] [address] [place] [address] Dr. Aissatou Campbell AUTO DIFFon [id number] #0.0 103/ulNormal0.0-0.1[facility] on above:Performed By: #### CBC ####[facility] [address] [place], [place] [address]Dr.Yilan VásquezBasophils/100 WBC (Bld)0.1 %Critically low0.2-2.0The [facility] HealthComment on above: Performed By: #### CBC ####[facility] [address] [place] [address] ChangEO #0.0 103/ulNormal0.0-0.7ThBlanchard Valley Health System Bluffton Hospitalment on above:Performed By: #### CBC ####[facility] [address] [place] [address] ChangEosinophils/100 WBC (Bld)0.0 %Critically low0.9-7.0The [facility] HealthComment on above: Performed By: #### CBC ####[facility] [address] [place], [place] [address]Dr.Aissatou ChangErythrocyte distribution width (RBC) [Ratio]13.4 %Mpgpia66.0-15.0The [facility] HealthComment on above:Performed By: #### CBC ####[facility] [address] [place], [place] [address]Dr.Aissatou ChangHematocrit (Bld) [Volume fraction]39.9 %Critically low 42.0-54.0The [facility] HealthComment on above:Performed By: #### CBC ####[facility] [address] [place], [place] [address]Dr. Aissatou ChangHemoglobin (Bld) [Mass/Vol]12.8 g/dLCritically low14.0-18.0The Premier HealthComment on above:Performed By: #### CBC ####[facility] [address]fq[address] [place], [place] [address]Dr.Aissatou VásquezIG #0.05 10e3/ulCritically high0.00-0.03The Premier HealthComment on above:Performed By: #### CBC ####[facility] [address]ef[address] [place], [place] [address]Dr.Aissatou ChangIG %0.4 %Normal0.0-0.5The Premier HealthComment on above: Performed By: #### CBC ####[facility] C[address]mrbdw[address] [place], [place] [address]Dr.Aissatou ChangLYMPH #0.8 103/ulCritically low1.2-3.8 The Premier HealthComment on above:Performed By: #### CBC ####[facility] Rizyyhwtld[address] [place], [place] [address]Dr.Aissatou Vásquez Lymphocytes/100 WBC (Bld)7.2 %Critically low20.5-60.0The [facility] Comment on above:Performed By: #### CBC ####[facility] Zfbnsowakl[address] [place], [place] [address]Dr.Aissatou VásquezMANUAL DIFF REQNONormalThe Premier HealthComment on above:Performed By: #### CBC ####[facility] Nwwyrhsazu[address] [place], [place] [address]Dr.Aissatou VásquezH (RBC) [Entitic mass]30.0 xhLdtaei95.9-34.0The [facility] HospitalComment on above: Performed By: #### CBC ####[facility] Ovswihadzi[address] [place], [place] [address]Dr.Aissatou VásquezHC (RBC) [Mass/Vol]32.1 g/dLNormal 29.9-35.2The Premier HealthComment on above:Performed By: #### CBC ####[facility] Otgktnempx[address] [place], [place] [address]Dr. Aissatou VásquezV (RBC) [Entitic vol]93.7 dANpjehw45.0-94.0The [facility] Comment on above:Performed By: #### CBC ####[facility] Hwpiclrzsw[address] [place], [place] [address]Dr.Aissatou VásquezMONO #0.8 103/ulNormal0.3-0.8 The Premier HealthComment on above:Performed By: #### CBC ####[facility] Z[address]oegiffn[address] [place], [place] [address]Dr.Aissatou Vásquez Monocytes/100 WBC (Bld)6.8 %Normal1.7-12.0The Premier HealthComment on above: Performed By: #### CBC ####[facility] Pjadfpuhbt[address] [place], [place] [address]Dr.Aissatou VásquezNEUT #9.8 103/ulCritically high1.4-6.5 The Premier HealthComment on above:Performed By: #### CBC ####[facility] Cveyyuxnem[address] [place], [place] [address]Dr.Aissatou Vásquez Neutrophils/100 WBC (Bld)85.5 %Critically high43.0-75.0The [facility] Comment on above:Performed By: #### CBC ####[facility] [address] [place] [address]Dr.Aissatou VásquezPlatelet mean volume (Bld) [Entitic vol]10.8 fLNormal9.5-13.5The Premier HealthComment on above: Performed By: #### CBC ####[facility] [address] [address]Dr.Aissatou WrvtzESM635 103/htSuiovc348-514Pgp Premier HealthComment on above:Performed By: #### CBC ####[facility] [address] [address]Dr.Aissatou ChangRBC4.26 106/ul Critically low4.70-6.10The Premier HealthComment on above:Performed By: #### CBC ####[facility] [address] [address]Dr. Aissatou KfafyEON77.4 103/ulCritically high4.0-11.0The Premier HealthComment on above:Performed By: #### CBC ####[facility] [address] [address]Dr.Aissatou VásquezCKSTEFANIEon 25-93-6994AY.MB [Mass/Vol]80.91 ng/mLCritically high<=3.60The Premier HealthComment on above:Performed By: #### LIVER, BMP, HSTROPN #### [facility] [address] [address] [address] Aissatou Segura 56-31-6909DX [Catalytic activity/Vol]915 U/LCritically high 39-308The Premier HealthComment on above:Performed By: #### LIVER, BMP, HSTROPN #### [facility] [address] [address] [address] Aissatou Schmid M/2D COMPLETEon [id number] M/2D COMPLETE Patient: LEANNA NGUYỄN Exam Date: 07/02/2022 : 1940 Gender:M Ordering : SHAIKH Delphine RODRIGUEZ . Admission #: [id number] Family : DR PIPE JEFFERS . Order #: [id number] CLICK HERE TO VIEW EXAM ECHOCARDIOGRAM REPORT [...] by: Karla Cameron M.D. on 07/08/2022 at 09:55NormMarietta Memorial HospitalMAGNESIUMon 93-21-1982Zdwvgjmwh [Mass/Vol]1.9 mg/dLNormal1.8-2.4The Premier HealthComment on above:Performed By: #### LIVER, BMP, HSTROPN #### [facility] [address] [place], [place] [address] Dr. Aissatou VásquezMYOGLOBINon 31-54-8500ANS6012 ng/mLCritically dflk12-21NneGalion Community HospitalComment on above:Performed By: #### LIVER, BMP, HSTROPN #### [facility] [address] [address] [address] Aissatou VásquezPHOSPHORUSon 69-03-8157Vloiyluyk [Mass/Vol]6.0 mg/dLCritically high2.6-4.7The Premier HealthComment on above:Performed By: #### LIVER, BMP, HSTROPN #### [facility] [address] [address] [address] Aissatou VásquezPOINT OF CARE GLUCOSEon 92-09-3265Ltqaiam [Mass/Vol]78 mg/dL Hckcfu75-715Frt Premier HealthComment on above:Performed By: #### CREA #### [facility] [address] [address] [address] Aissatou VásquezGlucose [Mass/Vol]104 mg/sPPpliiv19-351DkpGalion Community Hospital Comment on above:Performed By: #### POCGLUC ####[facility] [address] [address]Dr. Aissatou VásquezGlucose [Mass/Vol]83 mg/dL Izfkwk34-011Sts Premier HealthComment on above:Performed By: #### LIVER, BMP, HSTROPN #### [facility] [address] [address] [address] Aissatou VásquezGlucose [Mass/Vol]100 mg/cEUtfqum39-259BdyGalion Community Hospital Comment on above:Performed By: #### CREA #### [facility] [address] [address] [address] Aissatou VásquezGlucose [Mass/Vol]73 mg/dLCritically lba07-035Att Premier HealthComment on above:Performed By: #### POCGLUC ####[facility] [address] [address]Dr. Aissatou VásquezPROF 14(COMP METB)on 13-72-7539Tgjynuy [Mass/Vol]3.3 g/dLCritically low3.4-5.0The Premier HealthComment on above:Performed By: #### LIVER, BMP, HSTROPN #### [facility] [address] [place] [address] Dr. Aissatou VásquezAlbumin/Globulin [Mass ratio]1.0 {ratio}NormalThe Premier HealthComment on above:Performed By: #### LIVER, BMP, HSTROPN #### [facility] [address] [place] [address] Dr. Aissatou ChappellP [Catalytic activity/Vol]114 U/TWnbppe53-920Dhj Premier HealthComment on above:Performed By: #### LIVER, BMP, HSTROPN #### [facility] [address] [place] [address] Dr. Aissatou ChappellT [Catalytic activity/Vol]48 U/FZphpdf69-25Dcf [facility] Hospitalment on above:Performed By: #### LIVER, BMP, HSTROPN #### [facility] [address] [place] [address] Dr. Aissatou VásquezAnion gap [Moles/Vol]17.3 mmol/LNormalThe [facility] Comment on above:Performed By: #### LIVER, BMP, HSTROPN #### [facility] [address] [place] [address] Dr. Aissatou VásquezAST [Catalytic activity/Vol]68 U/LCritically nehn67-16Unx [facility]Com[facility] on above:Performed By: #### LIVER, BMP, HSTROPN #### [facility] [address] [place] [address] Dr. Aissatou VásquezBilirubin [Mass/Vol]0.5 mg/dLNormal0.2-1.0The [facility] Comment on above:Performed By: #### LIVER, BMP, HSTROPN #### [facility] [address] [place] [address] Dr. Aissatou VásquezCalcium [Mass/Vol]8.9 mg/dLNormal8.5-10.1The [facility] Comment on above:Performed By: #### LIVER, BMP, HSTROPN #### [facility] [address] [place] [address] Dr. Aissatou VásquezChloride [Moles/Vol]109 mmol/LCritically rtbo07-542Aoq Lesli HospitalComment on above:Performed By: #### LIVER, BMP, HSTROPN #### [facility] [address] [place] [address] Dr. Aissatou VásquezCO2 [Moles/Vol]22.8 mmol/SDfdmha81.0-32.0The [facility] Comment on above:Performed By: #### LIVER, BMP, HSTROPN #### [facility] [address] [place] [address] Dr. Aissatou VásquezCreatinine [Mass/Vol]1.89 mg/dLCritically high0.70-1.30The Premier HealthComment on above:Performed By: #### LIVER, BMP, HSTROPN #### [facility] [address] [place] [address] Dr. Aissatou MaynardGFR-AF IOJZUFKX97 mL/min/1.46e6Anvcwwxhao low>=60The Premier HealthComment on above:Result Comment: Previously reported as: (blank) On 07/02/2022 05:50 By [id number] By: #### LIVER, BMP, HSTROPN #### [facility] [address] [place] [address] Dr. Aissatou MaynardGFR-NON AF NVDPJTXE54 mL/min/1.98n9Fnplzvshjs low>=60The Premier HealthComment on above:Result Comment: Previously reported as: (blank) On 07/02/2022 05:50 By [id number] By: #### LIVER, BMP, HSTROPN #### [facility] [address] [place] [address] Dr. Aissatou VásquezGlobulin (S) [Mass/Vol]3.4 g/dLNormalThe Premier HealthComment on above:Performed By: #### LIVER, BMP, HSTROPN #### [facility] [address] [place] [address] Dr. Aissatou VásquezGlucose [Mass/Vol]86 mg/aGFxrgnk94-606YztGalion Community Hospital Comment on above:Performed By: #### LIVER, BMP, HSTROPN #### [facility] [address] [place] [address] Dr. Aissatou VásquezPotassium [Moles/Vol]5.1 mmol/LNormal3.5-5.1[facility] Comment on above:Performed By: #### LIVER, BMP, HSTROPN #### [facility] [address] [place] [address] Dr. Aissatou VásquezProtein [Mass/Vol]6.7 g/dLNormal6.4-8.2The [facility] Comment on above:Performed By: #### LIVER, BMP, HSTROPN #### [facility] [address] [place] [address] Dr. Aissatou VásquezSodium [Moles/Vol]144 mmol/VUxiakh118-859Jfc [facility] Comment on above:Performed By: #### LIVER, BMP, HSTROPN #### [facility] [address] [place] [address] Dr. Aissatou VásquezUrea nitrogen [Mass/Vol]55.0 mg/dLCritically high7.0-18.0Gal[facility] Community HospitalComment on above:Performed By: #### LIVER, BMP, HSTROPN #### [facility] [address] [place] [address] Dr. Aissatou Gregorio nitrogen/Creatinine [Mass ratio]29.1 mg/mgNoAultman Orrville HospitalComment on above:Performed By: #### LIVER, BMP, HSTROPN #### [facility] [address] [place] [address] Dr. Aissatou VásquezPROTIMEon [id number] Coag (PPP) [Relative time]1.13 {INR} NormalGalion Community HospitalComment on above:Performed By: #### LIVER, BMP, HSTROPN #### [facility] [address] [place] [address] Dr. Aissatou Rodríguez GUIDELINESSEE BELOWTrinity Health System East CampusComment on above:Result Comment: DESIRED INR: 2.0 - 3.0 CONDITIONS NOT LISTED BELOW 2.5 - 3.5 FOR PROSTHETIC HEART VALVE REPLACEMENT 2.5 - 3.5 RECURRENT THROMBOSIS Performed By: #### LIVER, BMP, HSTROPN #### [facility] [address] [place] [address] Dr. Aissatou Hitchcockg (PPP) [Time]12.1 sCritically high9.0-11.6The [facility] on above:Performed By: #### LIVER, BMP, HSTROPN #### [facility] [address] [place] [address] Dr. Aissatou Diaz CULTURE ID PANELon 07-01-2022. baumanniiNot detectedNormal NOT DETECTEDThe [facility] on above:Performed By: #### CREA #### [facility] [address] [place] [address] Dr. Aissatou Guzmán fragilisNot detectedNormalNOT DETECTEDThe [facility] on above:Performed By: #### CREA #### [facility] [address] [place] [address] Dr. Aissatou Horner CONTROLSPASSGenesis HospitalComascension providence hospital on above: Performed By: #### CREA #### [facility] [address] [place] [address] Dr. Aissatou HornerBTHDSUAD CULTURE BOTTLE INFORMATIONTrinity Health System East CampusComascension providence hospital on above:Performed By: #### CREA #### [facility] [address] [place] [address] Dr. Aissatou HornerEpkvsFDXFWE8VKMJIASXLZYGC RESISTANCE GENESTrinity Health System East Campus Comment on above:Performed By: #### CREA #### [facility] [address] [place] [address] Dr. Aissatou HornerHD2SEE [facility] HospitalComascension prov[facility] hospital on above: Result Comment: Note: Antimicrobial resitance can occur via multiple mechanisms. A Not Detected result for the [employer] antomicrobial resistance gene assays does not indicate antimicrobial susceptibility. Subculturing is required for species identification and susceptibility testing of isolates.Performed By: #### CREA #### [facility] [address] [place] [address] Dr. Aissatou HornerGsxvlDDNCMD4MadilsexNmctcaHim [facility] HospitalComment on above: Performed By: #### CREA #### [facility] [address] [address] [address] Aissatou HornerNnewbRSBQSU4OzxdxbgnAjguxvAhx [facility] HospitalComment on above: Performed By: #### CREA #### [facility] [address] [address] [address] Aissatou HornerNzpinJRQTLA7PHMSQVjgfjoRrbTrinity Health System East CampusComment on above:Performed By: #### CREA #### [facility] [address] [address] [address] Aissatou Lawson Set:Set 2NormalGalion Community HospitalComment on above: Performed By: #### CREA #### [facility] [address] [address] [address] Aissatou Lawson:PediatricTrinity Health System East CampusComment on above: Performed By: #### CREA #### [facility] [address] [address] [address] Aissatou Allen. neoformans/gattiiNot detectedNormalNOT DETECTEDThe [facility] HealthComasc[facility] hospital on above:Performed By: #### CREA #### [facility] [address] [address] [address] Aissatou Norris albicansNot detectedNormalNOT DETECTEDThe [facility] HealthComascension providence hospital on above:Performed By: #### CREA #### [facility] [address] [address] [address] Aissatou Norris aurisNot detectedNormalNOT DETECTEDThe [facility] Comment on above:Performed By: #### CREA #### [facility] [address] [address] [address] Aissatou Norris glabrataNot detectedNormalNOT DETECTEDThe Premier HealthComment on above:Performed By: #### CREA #### [facility] [address] [address] [address] Aissatou Norris KruseiNot detectedNormalNOT DETECTEDThe [facility] Comment on above:Performed By: #### CREA #### [facility] [address] [address] [address] Aissatou Norris ParapsilosisNot detectedNormalNOT DETECTEDThe [facility] HealthComascension providence hospital on above:Performed By: #### CREA #### [facility] [address] [address] [address] Aissatou Norris TropicalisNot detectedNormalNOT DETECTEDThe Premier HealthComment on above:Performed By: #### CREA #### [facility] [address] [address] [address] Aissatou VásquezCTX-M Resistant GeneNot detectedNormalNOT DETECTEDThe [facility] HealthComascension providence hospital on above:Performed By: #### CREA #### [facility] [address] [address] [address] Aissatou Maynard. Cloacae complexNot detectedNormalNOT DETECTEDThe [facility] HealthComascension providence hospital on above:Performed By: #### CREA #### [facility] [address] [address] [address] Aissatou Maynard. faecalisNot detectedNormalNOT DETECTEDThe [facility] Comment on above:Performed By: #### CREA #### [facility] [address] [address] [address] Aissatou Maynard. faeciumNot detectedNormalNOT DETECTEDThe [facility] Comment on above:Performed By: #### CREA #### [facility] [address] [address] [address] Aissatou MaynardnterobacteriaceaeDetectedCritically abnormalNOT DETECTEDThe [facility] HealthComasc[facility] hospital on above:Performed By: #### CREA #### [facility] [address] [address] [address] Aissatou Ellischerichia coliNot detectedNormalNOT DETECTEDThe [facility] HealthComascension providence hospital on above:Performed By: #### CREA #### [facility] [address] [address] [address] Aissatou King. influenzaeNot detectedNormalNOT DETECTEDThe [facility] Comment on above:Performed By: #### CREA #### [facility] [address] [address] [address] Aissatou Padilla Resistant GeneNot detectedNormalNOT DETECTEDThe Premier HealthComment on above:Performed By: #### CREA #### [facility] [address] [place] [address] Dr. Aissatou Peres. oxytocaNot detectedNormalNOT DETECTEDThe [facility] Comment on above:Performed By: #### CREA #### [facility] [address] [address] [address] Aissatou Peres. pneumoniaeNot detectedNormalNOT DETECTEDThe [facility] Comment on above:Performed By: #### CREA #### [facility] [address] [place] [address] Dr. Aissatou Rajput aerogenesNot detectedNormalNOT DETECTEDThe Premier HealthComment on above:Performed By: #### CREA #### [facility] [address] [place] [address] Dr. Aissatou AnnaC Resistant GeneNot detectedNormalNOT DETECTEDThe [facility] HealthComment on above:Performed By: #### CREA #### [facility] [address] [place] [address] Dr. Aissatou Zeng. monocytogenesNot detectedNormalNOT DETECTEDThe [facility] HealthComasc[facility] hospital on above:Performed By: #### CREA #### [facility] [address] [place] [address] Dr. Aissatou VásquezMcr-1 Resistant GeneNot ApplicableNormalNOT DETECTEDThe Premier HealthComment on above:Performed By: #### CREA #### [facility] [address] [place] [address] Dr. Aissatou Garsia/CNot ApplicableNormalNOT DETECTEDGalion Community Hospital Comment on above:Performed By: #### CREA #### [facility] [address] [place] [address] Dr. Aissatou Garsia/C MREJNot ApplicableNormalNOT DETECTEDThe [facility] Comment on above:Performed By: #### CREA #### [facility] [address] [address] [address] Aissatou Mitchell. meningitidisNot detectedNormalNOT DETECTEDThe Premier HealthComment on above:Performed By: #### CREA #### [facility] [address] [address] [address] Aissatou Caban Resistant GeneNot detectedNormalNOT DETECTEDThe Premier HealthComment on above:Performed By: #### CREA #### [facility] [address] [address] [address] Aissatou VásquezFozkpTum-75-epakSwo detectedNormalNOT DETECTEDThe [facility] Comment on above:Performed By: #### CREA #### [facility] [address] [address] [address] Aissatou VásquezProteusNot detectedNormalNOT DETECTEDThe [facility] HealthComasc[facility] hospital on above:Performed By: #### CREA #### [facility] [address] [address] [address] Aissatou Mesa. aeruginosaNot detectedNormalNOT DETECTEDThe [facility] HealthComasc[facility] hospital on above:Performed By: #### CREA #### [facility] [address] [address] [address] Aissatou Chan. maltophiliaNot detectedNormalNOT DETECTEDThe [facility] Comment on above:Performed By: #### CREA #### [facility] [address] [address] [address] Aissatou VásquezSalmonellaNot detectedNormalNOT DETECTEDThe [facility] Comment on above:Performed By: #### CREA #### [facility] [address] [address] [address] Aissatou Singhatia marcescensNot detectedNormalNOT DETECTEDThe Premier HealthComment on above:Performed By: #### CREA #### [facility] [address] [address] [address] Aissatou Pollard:IVNormalThe Premier HealthComment on above:Performed By: #### CREA #### [facility] [address] [address] [address] Aissatou Palomo. aureusNot detectedNormalNOT DETECTEDThe [facility] Comment on above:Performed By: #### CREA #### [facility] [address] [place] [address] Dr. Aissatou Palomo. epidermidisNot detectedNormalNOT DETECTEDThe [facility] HealthComment on above:Performed By: #### CREA #### [facility] [address] [address] [address] Aissatou Palomo. lugdunensisNot detectedNormalNOT DETECTEDThe [facility] HealthComment on above:Performed By: #### CREA #### [facility] [address] [place] [address] Dr. Aissatou NicoleococcusNot detectedNormalNOT DETECTEDGalion Community Hospital Comment on above:Performed By: #### CREA #### [facility] [address] [place] [address] Dr. Aissatou Hernandez. agalactiaeNot detectedNormalNOT DETECTEDThe Premier HealthComment on above:Performed By: #### CREA #### [facility] [address] [place] [address] Dr. Aissatou Hernandez. pneumoniaeNot detectedNormalNOT DETECTEDThe [facility] HealthCom[facility] hospital on above:Performed By: #### CREA #### [facility] [address] [place] [address] Dr. Aissatou Land pyogenesNot detectedNormalNOT DETECTEDThe Premier HealthComment on above:Performed By: #### CREA #### [facility] [address] [place] [address] Dr. Aissatou HernandeztococcusNot detectedNormalNOT DETECTEDThe [facility] Comment on above:Performed By: #### CREA #### [facility] [address] [place] [address] Dr. Aissatou Corrigan/Uri Resist. GeneNot ApplicableNormalNOT DETECTEDThe [facility] HealthCom[facility] on above:Performed By: #### CREA #### [facility] [address] [place] [address] Dr. Aissatou Nunes Resistant GeneNot detectedNormalNOT DETECTEDGalion Community HospitalComment on above:Performed By: #### CAMMY #### [facility] [address] [place] [address] Dr. Aissatou Campbell W MANUAL DIFFon [id number] LYMPH #NormalMccullough-Hyde Memorial Hospital HospitalComment on above:Performed By: #### RIZWAN ####[facility] [address] [place], [place] [address]Dr. Yilan ChangATYPICAL LYMPH %NormalThe [facility]tsville HospitalComment on above:Performed By: #### RIZWAN ####[facility] [address] [place], [place] [address]Dr. Yilan ChangBAND #0.4 103/ulCritically high0.0-0.3The Premier HealthComment on above:Performed By: #### RIZWAN ####[facility] [address] [place], [place] [address]Dr. Yilan ChangBAND %3 %Normal0-5The [facility] Comment on above:Performed By: #### CBCRITCHIE ####[facility] [address] [place], [place] [address]Dr. Yilan ChangBASOM #0.00 103/ulNormal 0.00-0.10The Premier HealthComment on above:Performed By: #### CBCRITCHIE ####[facility] [address] [place], [place] [address]Dr. Aissatou ChangBASOM %0.0 %Critically low0.2-2.0[facility] HospitalComment on above:Performed By: #### CBCMAN ####[facility] [address] [place], [place] [address]Dr. Yilan ChangBLAST #NormalGalion Community Hospital Comment on above:Performed By: #### CBCRITCHIE ####[facility] [address] [place], [place] [address]Dr. Yilan ChangBLAST %NormalMccullough-Hyde Memorial Hospital HospitalComment on above:Performed By: #### CBCRITCHIE ####[facility] [address] [address]Dr. Sheylan ChangCORRECTED WBC Normal4.0-11.0The Premier HealthComment on above:Performed By: #### CBCMAN ####[facility] [address] [place], [place] [address]Dr. Yilan ChangEOS #0.12 103/ulNormal0.00-0.70The [facility] HealthComment on above: Performed By: #### CBCRITCHIE ####[facility] [address]pe[address]tc[address] [place], [place] [address]Dr. Yilan ChangEOS%1.0 %Normal0.9-7.0The Premier HealthComment on above:Performed By: #### CBCRITCHIE ####[facility] [address] [place], [place] [address]Dr. Sheylan DcpkkHOG08.0 % Crltsz97.0-54.0The Premier HealthComment on above:Performed By: #### CBCRITCHIE ####[facility] [address]zdqr[address] [place], [place] [address]Dr. Aissatou AumwkGHP95.6 g/vuWxbjcy94.0-18.0The [facility] HealthComasc[facility] prov[facility] hospital on above: Performed By: #### CBCRITHCIE ####[facility] Lzwlynkatw[address] [place], [place] [address]Dr. Sheylan ChangLYMPHM #0.62 103/ulCritically low 1.20-3.80The [facility] HealthComascension [facility] hospital on above:Performed By: #### CBCRITCHIE ####[facility] [address] [place], [place] [address]Dr. Aissatou ChangLYMPHM%5.0 %Critically low20.5-60.0The [facility] HealthComasc[facility] hospital on above:Performed By: #### CBCMAN ####[facility] [address] [place], [place] [address]Dr. Sheylan QwlhkMGB14.9 giTynvpc41.9-34.0The [facility] HealthComment on above:Performed By: #### CBCMAN ####[facility] Gry[address] [place], [place] [address]Dr. Aissatou VásquezMCHC31.7 g/dl Crjist79.9-35.2The [facility] HospitalComment on above:Performed By: #### CBCMAN ####[facility] [address] [address]Dr. Aissatou VásquezMCV94.1 fLCritically high80.0-94.0The [facility]bertsville HospitalComment on above:Performed By: #### CBCMAN ####[facility] [address] [address]Dr. Yilan ChangMETAMYELOCYTE #NormalThe Sybertsville HospitalComment on above:Performed By: #### CBCMAN ####[facility] [address] [address]Dr. Yilan ChangMETAMYELOCYTE %NormalThe [facility]bertsville HospitalComment on above:Performed By: #### CBCMAN ####[facility] Zcdsyoyvmg[address] [place], [place] [address]Dr. Aissatou ChangMONOM#0.62 103/ulNormal0.30-0.80The Premier HealthComment on above:Performed By: #### CBCMAN ####[facility] Dvk[address] [place], [place] [address]Dr. Yisarah ChangMONOM%5.0 %Normal1.7-12.0The Premier HealthComment on above:Performed By: #### CBCMAN ####[facility] [address] [address]Dr. Aissatou OslewFIR06.4 fL Normal9.5-13.5The [facility]tsville HospitalComment on above:Performed By: #### CBCMAN ####[facility] [address] [place], [place] [address]Dr. Yilan ChangMYELOCYTE #NormalThe [facility]tsville HospitalComment on above:Performed By: #### CBCMAN ####[facility] Ukknbon[address] [place], [place] [address]Dr. Yilan ChangMYELOCYTE %NormalThe [facility]tsville HospitalComment on above: Performed By: #### CBCMAN ####[facility] [address] [address]Dr. Aissatou ChangNRBCNormalThTriHealth Bethesda Butler HospitalComment on above:Performed By: #### RIZWAN ####[facility] X[address] [place], [place] [address]Dr. Aissatou SviefONI367 103/hxGecjxg277-659UmiGalion Community HospitalComment on above:Performed By: #### RIZWAN ####[facility] [address] [address]Dr. Aissatou VásquezRBC 4.89 106/ulNormal4.70-6.10The [facility] HealthComment on above:Performed By: #### RIZWAN ####[facility] Gx[address]tez[address] [place], [place] [address]Dr. Aissatou AtcjgZDF57.4 %Oyscfn30.0-15.0[facility] Community HospitalComment on above:Performed By: #### RIZWAN ####[facility] N[address]cv[address] [place], [place] [address]Dr. Aissatou Bauer #10.66 103/ulCritically high 1.40-6.50The [facility] HealthComment on above:Performed By: #### RIZWAN ####[facility] Cql[address]biu[address] [place], [place] [address]Dr. Aissatou Bauer %86.0 %Critically high43.0-75.0[facility] Community HospitalComment on above:Performed By: #### RIZWAN ####[facility] Romrrry[address] [place], [place] [address]Dr. Aissatou YsrzlBED33.4 103/ulCritically high4.0-11.0 The Premier HealthComment on above:Performed By: #### RIZWAN ####[facility] [address]iw[address] [place], [place] [address]Dr. Aissatou VásquezCPKon 08-51-9854RZ [Catalytic activity/Vol]1646 U/LCritically tzpb92-739UavGalion Community HospitalComment on above:Performed By: #### LIVER, BMP, HSTROPN #### [facility] [address] [address] [address] Aissatou Ellison CSPINE WO CONon 12-72-7032U[facility] WO CONEXAMINATION: CT CSPINE WO CON HISTORY: The patient [...] Electronically authenticated by: KOKO ROMANO Date: 2022-07-01 19:22[facility] STROKE HEAD WOon [id number] STROKE HEAD WONONCONTRAST CT SCAN OF THE HEAD CT STROKE [...] help better delineate. Electronically authenticated by: BERNADETTE CHIOMA Date: 2022-07-01 17:37NormMarietta Memorial HospitalCULTURE BLOODon 26-12-9415Rozcgrguggw examination of blood, cultureCulture Observations: NO GROWTH AT 5 DAYS.NormalThe Premier HealthComment on above:Performed By: #### BLDCX1 ####[facility] [address] [place], [place] [address]VmDr. Aissatou VásquezCovid-19 PCR ([facility])on 45-52-5717UDIH-CoV-2 (COVID-19) RNA HALLE+probe Ql (Unsp spec)Not detectedNormalNOT DETECTEDThe [facility] Comment on above:Result Comment: When diagnostic testing is negative, the [...] for this test is supported by the Academic Registrar of Health and Human Service's declaration that circumstances exist to justify the emergency use of in vitro diagnostics for the detection and/or diagnosis of the virus that causes COVID-19. This EUA will remain in effect for the duration of the COVID-19 declaration justifying emergency of IVDs, unless it is terminated or revoked by the FDA (after which the test may no longer be used).Performed By: #### LIVER, BMP, HSTROPN #### [facility] [address] [place], [place] [address] Dr. Aissatou VásquezDRUG SCREEN RAPID (URINE)on 83-37-1871PPVKeimygfkUsxjxnEGZEDAXD [facility] Community HospitalComment on above:Performed By: #### CREA #### [facility] [address] [place] [address] Dr. Aissatou VásquezBARNegativeNormalNEGATIVEGalion Community HospitalComment on above: Performed By: #### CREA #### [facility] [address] [place] [address] Dr. Aissatou VásquezBUPNegativeNormalNEGATIVEGalion Community HospitalComment on above: Performed By: #### CREA #### [facility] [address] [place] [address] Dr. Aissatou VásquezBZONegativeNormalNEGATIVEGalion Community HospitalComment on above: Performed By: #### CREA #### [facility] [address] [place] [address] Dr. Aissatou VásquezCOCNegativermalNEGATIVEGalion Community HospitalComment on above: Performed By: #### CREA #### [facility] [address] [place] [address] Dr. Aissatou VieiraCleveland Clinic Fairview HospitalComment on above: Result Comment: AMP (Amphetamine): 500ng/mL, BAR (Barbituates): 200 ng/mL, BZO (Benzodiazepines): 150 ng/mL, BUP (Buprenorphine): 10 ng/mL, MARYJANE (Cocaine): 150 ng/mL, mAMP (Methamphetamine): 500 ng/mL, MTD (Methadone): 200 ng/mL, OPI (Opiates): 100 ng/mL, OXY (Oxycodone): 100 ng/mL, PCP (Phencyclidine): 25 ng/mL, PPX (Propoxyphene): 300 ng/mL, THC (Cannabinoids): 50 ng/mL, TCA (Trycyclic Antidepressants): 300 ng/mLPerformed By: #### CREA #### [facility] [address] [place] [address] Dr. Aissatou VásquezDRUG CUT HEADERDRUG CLASS TEST SYSTEM CUT-OFF CONCENTRATIONS ARE FOLLOWS:NormalThe [facility] HealthComment on above:Performed By: #### CREA #### [facility] [address] [address] [address] Aissatou VásquezmAMPNegativeNormalNEGATIVEGalion Community HospitalComment on above: Performed By: #### CREA #### [facility] [address] [address] [address] Aissatou VásquezMTDNegativeNormalNEGATIVEGalion Community HospitalComment on above: Performed By: #### CREA #### [facility] [address] [address] [address] Aissatou VásquezOPINegativeNormalNEGATIVEGalion Community HospitalComment on above: Performed By: #### CREA #### [facility] [address] [place] [address] Dr. Aissatou VásquezOXYNegativeNormalNEGATIVEGalion Community HospitalComascension [facility] on above: Performed By: #### CREA #### [facility] [address] [place] [address] Dr. Aissatou VásquezPCPNegativeNormalNEGATIVEGalion Community HospitalComascension providence hospital on above: Performed By: #### CREA #### [facility] [address] [place] [address] Dr. Aissatou VásquezPPXNegativeNormalNEGATIVEGalion Community HospitalComascension providence hospital on above: Performed By: #### CREA #### [facility] [address] [place] [address] Dr. Aissatou VásquezTCANegativeNormalNEGATIVEGalion Community HospitalComascension providence hospital on above: Performed By: #### CREA #### [facility] [address] [place] [address] Dr. Aissatou VásquezTHCNegativeNormalNEGATIVEGalion Community HospitalComascension providence hospital on above: Performed By: #### CREA #### [facility] [address] [place] [address] Dr. Reyez ChangEJacinta URINE PROFILEon 11-85-0768Emkxythzq Ql (U)NegativeNormal NEGATIVEGalion Community HospitalComment on above:Performed By: #### CREA #### [facility] [address] [address] [address] Aissatou VásquezClarity (U)CLEARNormalCLEARGalion Community HospitalComment on above: Performed By: #### CREA #### [facility] [address] [address] [address] Aissatou Limlor (U)YELLOWNormalYELLOWGalion Community HospitalComment on above: Performed By: #### CREA #### [facility] [address] [address] [address] Aissatou Lamar micrscopic examination will be performed if indicated. NormalThe [facility] HealthComment on above:Performed By: #### CREA #### [facility] [address] [place] [address] Dr. Aissatou VásquezGlucose Ql (U)NegativeNormalNEGATIVEGalion Community HospitalComment on above:Performed By: #### CREA #### [facility] [address] [place] [address] Dr. Aissatou VásquezHemoglobin Ql (U)MODERATEAbnormalNEGSumma Health Wadsworth - [facility] Comment on above:Performed By: #### CREA #### [facility] [address] [address] [address] Aissatou VásquezKetones Ql (U)15 mg/dlAbnoalNEGSumma Health Wadsworth - [facility] Comment on above:Performed By: #### CREA #### [facility] [address] [address] [address] Aissatou VásquezLEUKOCYTESNegativeNormalNEGSumma Health Wadsworth - Rittman Medical CenterComment on above:Performed By: #### CREA #### [facility] [address] [address] [address] Aissatou VásquezNitrite Ql (U)NegativeNormalNEGATIVEGalion Community HospitalComment on above:Performed By: #### CREA #### [facility] [address] [address] [address] Aissatou VásquezpH (U)5.0 [pH]Normal5-9[facility] Community HospitalComment on above: Performed By: #### CREA #### [facility] [address] [place] [address] Dr. Aissatou VásquezSPEC GRAVITY1.434Tgkilc0.005-<=1.025The [facility] HealthComment on above:Performed By: #### CREA #### [facility] [address] [place] [address] Dr. Aissatou Peng PROTEINTRACENormalNEGATIVE/ TRACEThe [facility] HealthComment on above:Performed By: #### CREA #### [facility] [address] [place] [address] Dr. Aissatou Flores MICRO INDINDICATEDNormalThe [facility] HealthComment on above: Performed By: #### CREA #### [facility] [address] [place] [address] Dr. Aissatou Maldonadoinogen Qn (U)0.2 {Ilene'U}/dLNormal0.2 - 1.0The [facility] on above:Performed By: #### CREA #### [facility] [address] [place] [address] Dr. Aissatou Poe PROFILEon 07-81-2783Uqhetdu [Mass/Vol]3.7 g/dLNormal3.4-5.0 [facility] on above:Performed By: #### LIVER, BMP, HSTROPN #### [facility] [address] [place] [address] Dr. Aissatou VásquezAlbumin/Globulin [Mass ratio]0.9 {ratio}NormalThe [facility] on above:Performed By: #### LIVER, BMP, HSTROPN #### [facility] [address] [place] [address] Dr. Aissatou ChappellP [Catalytic activity/Vol]143 U/LCritically mpyu71-347Zyg [facility] on above:Performed By: #### LIVER, BMP, HSTROPN #### [facility] [address] [place] [address] Dr. Aissatou Borges [Catalytic activity/Vol]56 U/ZQxqkex25-70Blj Lesli HospitalComment on above:Performed By: #### LIVER, BMP, HSTROPN #### [facility] [address] [address] [address] Aissatou VásquezAST [Catalytic activity/Vol]87 U/LCritically nlpd22-52Bec [facility] HealthComment on above:Performed By: #### LIVER, BMP, HSTROPN #### [facility] [address] [address] [address] Aissatou ReevesI, CONJUGATED0.2 mg/dLNormal0.0-0.2The [facility] Comment on above:Performed By: #### LIVER, BMP, HSTROPN #### [facility] [address] [place] [address] Dr. Aissatou Reevesirubin [Mass/Vol]0.6 mg/dLNormal0.2-1.0[facility] Comment on above:Performed By: #### LIVER, BMP, HSTROPN #### [facility] [address] [address] [address] Aissatou VásquezGlobulin (S) [Mass/Vol]3.9 g/dLNormalThe [facility] HealthComment on above:Performed By: #### LIVER, BMP, HSTROPN #### [facility] [address] [place] [address] Dr. Aissatou VásquezProtein [Mass/Vol]7.6 g/dLNormal6.4-8.2[facility] Comment on above:Performed By: #### LIVER, BMP, HSTROPN #### [facility] [address] [place] [address] Dr. Aissatou VásquezMYOGLOBINon 02-43-0792KGP9340 ng/mLCritically fems95-16Tqu [facility] HealthComment on above:Performed By: #### LIVER, BMP, HSTROPN #### [facility] [address] [place] [address] Dr. Aissatou VásquezPROF CHEM 8 (BAS METB)on 47-89-0589Egcun gap [Moles/Vol]18.5 mmol/LNormalThe [facility] HealthComment on above:Performed By: #### LIVER, BMP, HSTROPN #### [facility] [address] [address] [address] Aissatou VásquezCalcium [Mass/Vol]9.8 mg/dLNormal8.5-10.1[facility] Comment on above:Performed By: #### LIVER, BMP, HSTROPN #### [facility] [address] [place] [address] Dr. Aissatou VásquezChloride [Moles/Vol]104 mmol/YEmiggz81-713Nbr [facility] Comment on above:Performed By: #### LIVER, BMP, HSTROPN #### [facility] [address] [place] [address] Dr. Aissatou VásquezCO2 [Moles/Vol]24.3 mmol/SYoecpf15.0-32.0[facility] Comment on above:Performed By: #### LIVER, BMP, HSTROPN #### [facility] [address] [place] [address] Dr. Aissatou VásquezCreatinine [Mass/Vol]1.74 mg/dLCritically high0.70-1.30The [facility] HealthComment on above:Performed By: #### LIVER, BMP, HSTROPN #### [facility] [address] [place] [address] Dr. Reyez ChangEGFR-AF DTRPJYFW92 mL/min/1.94b1Rvumhwpgcy low>=60The [facility] HealthComment on above:Performed By: #### LIVER, BMP, HSTROPN #### [facility] [address] [place] [address] Dr. Reyez ChangEGFR-NON AF BVHBRFGO89 mL/min/1.00c5Jxlmvvlkpd low>=60The [facility] HealthComment on above:Performed By: #### LIVER, BMP, HSTROPN #### [facility] [address] [place] [address] Dr. Aissatou VásquezGlucose [Mass/Vol]115 mg/dLCritically frmg61-475Bps [facility] HealthComment on above:Performed By: #### LIVER, BMP, HSTROPN #### [facility] [address] [address] [address] Aissatou VásquezPotassium [Moles/Vol]4.8 mmol/LNormal3.5-5.1The [facility] Comment on above:Performed By: #### LIVER, BMP, HSTROPN #### [facility] [address] [address] [address] Aissatou VásquezSodium [Moles/Vol]142 mmol/UExiibr449-099Due [facility] Comment on above:Performed By: #### LIVER, BMP, HSTROPN #### [facility] [address] [address] [address] Aissatou VásquezUrea nitrogen [Mass/Vol]54.0 mg/dLCritically high7.0-18.0[facility] HospitalComment on above:Performed By: #### LIVER, BMP, HSTROPN #### [facility] [address] [address] [address] Aissatou Gregorio nitrogen/Creatinine [Mass ratio]31.0 mg/mgNormalThe [facility] HealthComment on above:Performed By: #### LIVER, BMP, HSTROPN #### [facility] [address] [address] [address] Aissatou Peguero, HIGH SENSITIVITYon 17-17-5931KJOFHG341.3 pg/mL Critically high4.0-76.1The [facility] HealthComment on above:Result Comment: CUT-OFF POINTS HAVE BEEN ESTABLISHED BASED ON THE FOURTH UNIVERSAL DEFINITIONS OF MYOCARDIAL INFARCTION. THE UPPER REFERENCE LIMIT (URL) OF TROPONIN, DEFINED THE 99TH PERCENTILE OF cTnI DISTRIBUTION IN A REFERENCE POPULATION, HAS BEEN CONFIRMED THE DECISION THRESHOLD FOR RI DIAGNOSIS.Performed By: #### HSTROPN ####[facility] [address] [address]Dr. Aissatou VásquezHSTROP132.4 pg/mLCritically high4.0-76.1[facility] HospitalComment on above:Result Comment: CUT-OFF POINTS HAVE BEEN ESTABLISHED BASED ON THE FOURTH UNIVERSAL DEFINITIONS OF MYOCARDIAL INFARCTION. THE UPPER REFERENCE LIMIT (URL) OF TROPONIN, DEFINED THE 99TH PERCENTILE OF cTnI DISTRIBUTION IN A REFERENCE POPULATION, HAS BEEN CONFIRMED THE DECISION THRESHOLD FOR RI DIAGNOSIS.Performed By: #### LIVER, BMP, HSTROPN #### [facility] [address] [place] [address] Dr. Aissatou York 60-71-3626IML8.840 uIU/mLCritically high0.358-3.740The [facility] HealthComment on above:Performed By: #### LIVER, BMP, HSTROPN #### [facility] [address] [place] [address] Dr. Aissatou MORALESon 36-72-2532BNXJVNLKJWTU SEENNormalNONE SEENGalion Community HospitalComascension providence hospital on above:Performed By: #### CREA #### [facility] [address] [place] [address] Dr. Aissatou Angel identified Cx Nom (U)NOT INDICATEDNoAultman Orrville HospitalComment on above:Performed By: #### CREA #### [facility] [address] [place] [address] Dr. Aissatou Herndon SEENNormalNONE SEENGalion Community HospitalComascension providence hospital on above:Performed By: #### CREA #### [facility] [address] [place] [address] Dr. Aissatou Ma LM Nom (Urine sed)NONE SEENNormalNONE SEENGalion Community HospitalComascension providence hospital on above:Performed By: #### CREA #### [facility] [address] [place] [address] Dr. Aissatou Keiththelial cells LM Ql (Urine sed)RARENormalNONE SEEN /RAREGalion Community HospitalComascension providence hospital on above:Performed By: #### CREA #### [facility] [address] [place] [address] Dr. Aissatou SernaACEAbnormalNONE SEENGalion Community HospitalComment on above:Performed By: #### CREA #### [facility] [address] [place] [address] Dr. Aissatou FreireQlyhgDGQ4-9Mpvpflle2-1Vwb [facility] Hospitalment on above:Performed By: #### CREA #### [facility] [address] [place] [address] Dr. Aissatou VásquezWBC2-5AbnormalNONE SEENThe [facility] on above: Performed By: #### CREA #### [facility] [address] [place] [address] Dr. Aissatou VásquezXR CHEST 1 Von [id number] CHEST 1 VONE-VIEW CHEST RADIOGRAPH, 07/01/2022 5:31 PM EST COMPARISON: [...] Electronically authenticated by: Jhony TOTH Date: 2022-07-01 18:01NoAultman Orrville HospitalAMMONIAon 09-28-7854Csrraoh (P) [Mass/Vol]ug/dLCritically low 11-32The [facility] HealthComment on above:Performed By: #### LIVER, BMP, HSTROPN #### [facility] [address] [place] [address] Dr. Aissatou Barahona 77-73-3077Ymzykpommdd peptide B (Bld) [Mass/Vol]672.0 pg/mL Normal<=1,800.0The [facility] on above:Performed By: #### TSH, CMP, FT3, BNP, T4, LIPID #### [facility] [address] [place] [address] Dr. Aissatou SungC AUTO DIFFon 30-96-5287YFEX #0.0 103/ulNormal0.0-0.1The [facility] on above:Performed By: #### CREA #### [facility] [address] [place] [address] Dr. Aissatou VásquezBasophils/100 WBC (Bld)0.6 %Normal0.2-2.0The [facility] Comment on above:Performed By: #### CREA #### [facility] [address] [place] [address] Dr. Aissatou Bragg #0.0 103/ulNormal0.0-0.7The [facility] HealthComment on above: Performed By: #### CREA #### [facility] [address] [place] [address] Dr. Aissatou Maynardosinophils/100 WBC (Bld)0.6 %Critically low0.9-7.0The [facility] HealthComment on above:Performed By: #### CREA #### [facility] [address] [place] [address] Dr. Aissatou Maynardrythrocyte distribution width (RBC) [Ratio]13.7 %Flfzar89.0-15.0 The Premier HealthComment on above:Performed By: #### CREA #### [facility] [address] [place] [address] Dr. Aissatou VásquezHematocrit (Bld) [Volume fraction]40.7 %Critically low42.0-54.0 The [facility] HealthComment on above:Performed By: #### CREA #### [facility] [address] [place] [address] Dr. Aissatou VásquezHemoglobin (Bld) [Mass/Vol]12.8 g/dLCritically low14.0-18.0The [facility] HealthComment on above:Performed By: #### CREA #### [facility] [address] [place] [address] Dr. Aissatou Brooks #0.01 10e3/ulNormal0.00-0.03The [facility] HealthComment on above:Performed By: #### CREA #### [facility] [address] [place] [address] Dr. Aissatou Brooks %0.2 %Normal0.0-0.5The [facility] HealthComment on above: Performed By: #### CREA #### [facility] [address] [address] [address] Aissatou Gonzalez #1.7 103/ulNormal1.2-3.8The [facility] HealthComment on above:Performed By: #### CREA #### [facility] [address] [place] [address] Dr. Aissatou Millermphocytes/100 WBC (Bld)27.5 %Tgltxn88.5-60.0The [facility] HealthComment on above:Performed By: #### CREA #### [facility] [address] [place] [address] Dr. Aissatou Penaloza DIFF REQNONormalThe Premier HealthComment on above: Performed By: #### CREA #### [facility] [address] [place] [address] Dr. Aissatou Wilson (RBC) [Entitic mass]30.3 iwOcbfge34.9-34.0The [facility] HealthComment on above:Performed By: #### CREA #### [facility] [address] [place] [address] Dr. Aissatou Wilson (RBC) [Mass/Vol]31.4 g/dFIehwka10.9-35.2The [facility] HealthComment on above:Performed By: #### CREA #### [facility] [address] [place] [address] Dr. Aissatou Wilson (RBC) [Entitic vol]96.2 fLCritically high80.0-94.0The [facility] HealthComment on above:Performed By: #### CREA #### [facility] [address] [place] [address] Dr. Aissatou Olivo #0.6 103/ulNormal0.3-0.8The [facility] HealthComment on above:Performed By: #### CREA #### [facility] [address] [place] [address] Dr. Aissatou Ibrahimocytes/100 WBC (Bld)9.9 %Normal1.7-12.0The [facility] Comment on above:Performed By: #### CREA #### [facility] [address] [address] [address] Aissatou Donaldson #3.8 103/ulNormal1.4-6.5The [facility] HealthComment on above:Performed By: #### CREA #### [facility] [address] [place] [address] Dr. Aissatou Robbinsutrophils/100 WBC (Bld)61.2 %Fcxkzf17.0-75.0The [facility] HealthComment on above:Performed By: #### CREA #### [facility] [address] [place] [address] Dr. Aissatou VásquezPlatelet mean volume (Bld) [Entitic vol]9.3 fLCritically low 9.5-13.5The [facility] HealthComment on above:Performed By: #### CREA #### [facility] [address] [place] [address] Dr. Aissatou VásquezPLT218 103/klQviqtk534-112Evg [facility] HealthComment on above: Performed By: #### CREA #### [facility] [address] [place] [address] Dr. Aissatou VásquezRBC4.23 106/ulCritically low4.70-6.10The [facility] HealthComment on above:Performed By: #### CREA #### [facility] [address] [place] [address] Dr. Aissatou VásquezWBC6.3 103/ulNormal4.0-11.0The [facility] HealthComment on above: Performed By: #### CREA #### [facility] [address] [place] [address] Dr. Aissatou VásquezFREE T3on 82-59-6013DOYR T31.80 pg/mlLCritically low2.18-3.98The [facility] HealthComment on above:Performed By: #### TSH, CMP, FT3, BNP, T4, LIPID #### [facility] [address] [place] [address] Dr. Aissatou VásquezGLYCOHEMOGLOBIN A1Con 35-36-4708APD RECOMMENDATIONSEE BELOWNormal The [facility] HealthComascension [facility] hospital on above:Result Comment: ADA RECOMMENDED LIMIT 4.0 - 6.0 ADA THERAPEUTIC TARGET < 7.0 ACTION SUGGESTED > 7.0Performed By: #### LIVER, BMP, HSTROPN #### [facility] [address] [address] [address] Aissatou VásquezGlucose [Mass/Vol]117 mg/dLNoAultman Orrville HospitalComascension providence hospital on above:Performed By: #### LIVER, BMP, HSTROPN #### [facility] [address] [address] [address] Aissatou VásquezHbA1c (Bld) [Mass fraction]5.7 %Normal4.5-6.2The [facility] on above:Performed By: #### LIVER, BMP, HSTROPN #### [facility] [address] [address] [address] Aissatou Woodard 22-90-0315Qvuq [Mass/Vol]76.0 ug/zVGaqdat98.0-175.0The [facility] on above:Performed By: #### PSASC, VITAD, IRON, B12FOL ####[facility] [address] [address]DrBud VásquezLIPID PROFILEon 28-15-0254EXRR-HDL RATIO NORMSEE BELOWNormMarietta Memorial HospitalComascension providence hospital on above:Result Comment: 3.3 - 4.4 LOW RISK 4.4 - 7.1 AVERAGE RISK 7.1 - 11.0 MODERATE RISK >11.0 HIGH RISKPerformed By: #### TSH, CMP, FT3, BNP, T4, LIPID ####[facility] [address] [address]DrBud VásquezCholesterol [Mass/Vol]133 mg/dLNormal<=200 [facility] on above:Performed By: #### TSH, CMP, FT3, BNP, T4, LIPID ####[facility] [address] [place] [address]DrBud VásquezCholesterol in HDL [Mass/Vol]79 mg/dLCritically wsnt24-53MclGuernsey Memorial Hospital on above:Performed By: #### TSH, CMP, FT3, BNP, T4, LIPID ####[facility] Wf[address] [place], [place] [address]Dr. Yilan ChangCholesterol in LDL [Mass/Vol]43.6 mg/dLTrinity Health System East CampusComment on above:Performed By: #### TSH, CMP, FT3, BNP, T4, LIPID ####[facility] Cyuuuz[address] [place], [place] [address]Dr. Yilan ChangCholesterol.total/Cholesterol in HDL [Mass ratio]1.7 {ratio}NormalGuernsey Memorial Hospital on above:Performed By: #### TSH, CMP, FT3, BNP, T4, LIPID ####[facility] Ir[address]qx[address] [place], [place] [address]Dr. Yilan ChangHDL NORMAL> or = 60 mg/dl - LOW CARDIOVASCULAR RISK <40 mg/dl - HIGH CARDIOVASCULAR RISKChillicothe VA Medical Center on above: Performed By: #### TSH, CMP, FT3, BNP, T4, LIPID ####[facility] Punwwlwv[address] [place], [place] [address]Dr. Yilan ChangLDL CALC NORMALSEE BELOWTrinity Health System East CampusComascension providence hospital on above:Result Comment: <100 mg/dl OPTIMAL 100 - 129 mg/dl NEAR OR ABOVE OPTIMAL 130 - 159 mg/dl BORDERLINE HIGH 160 - 189 mg/dl HIGH >190 mg/dl VERY HIGHPerformed By: #### TSH, CMP, FT3, BNP, T4, LIPID ####[facility] Emqreftxbu[address] [place], [place] [address]Dr. Yilan ChangTriglyceride [Mass/Vol]52 mg/dLNormal<=150[facility] on above:Performed By: #### TSH, CMP, FT3, BNP, T4, LIPID ####[facility] Z[address] [place], [place] [address]Dr. Yilan ChangVLDL CALC10.4 mg/dLTrinity Health System East CampusComment on above: Performed By: #### TSH, CMP, FT3, BNP, T4, LIPID ####[facility] [address] [place] [address]Dr. Aissatou VásquezPROF 14(COMP METB)on 28-11-3250Xirgdjz [Mass/Vol]4.0 g/dLNormal3.4-5.0The [facility] Comment on above:Performed By: #### TSH, CMP, FT3, BNP, T4, LIPID ####[facility] Hb[address]ysst[address] [place] [address]Dr. Aissatou Vásquez Albumin/Globulin [Mass ratio]1.1 {ratio}NormalThe [facility] HealthComment on above:Performed By: #### TSH, CMP, FT3, BNP, T4, LIPID ####[facility] [address]wnx[address] [place] [address]Dr. Aissatou ChangALP [Catalytic activity/Vol]137 U/LCritically puxh62-897Nsf [facility] HealthComment on above: Performed By: #### TSH, CMP, FT3, BNP, T4, LIPID ####[facility] K[address] [place], [place] [address]Dr. Aissatou ChangALT [Catalytic activity/Vol]18 U/ZAsvzse72-61Vnd [facility] HealthComment on above:Performed By: #### TSH, CMP, FT3, BNP, T4, LIPID ####[facility] [address] [place] [address]Dr. Aissatou VásquezAnion gap [Moles/Vol]11.1 mmol/L NormalThe [facility] HealthComment on above:Performed By: #### TSH, CMP, FT3, BNP, T4, LIPID ####[facility] [address] [place] [address]Dr. Aissatou ChangAST [Catalytic activity/Vol]9 U/LCritically pxz10-20Daz [facility] HealthComment on above:Performed By: #### TSH, CMP, FT3, BNP, T4, LIPID ####[facility] Psqsu[address] [place], [place] [address]Dr. Aissatou ChangBilirubin [Mass/Vol]0.3 mg/dLNormal0.2-1.0The [facility] Hospitalment on above:Performed By: #### TSH, CMP, FT3, BNP, T4, LIPID ####[facility] [address]tarf[address] [place] [address]Dr. Yilan ChangCalcium [Mass/Vol]9.4 mg/dLNormal8.5-10.1The [facility] on above:Performed By: #### TSH, CMP, FT3, BNP, T4, LIPID ####[facility] [address] [place] [address]Dr. Yilan ChangChloride [Moles/Vol]102 mmol/ZYjeoeu42-714Eqx [facility] on above:Performed By: #### TSH, CMP, FT3, BNP, T4, LIPID ####[facility] X[address]omr[address] [place] [address]Dr. Yilan ChangCO2 [Moles/Vol]29.7 mmol/L Eptpey13.0-32.0The [facility] on above:Performed By: #### TSH, CMP, FT3, BNP, T4, LIPID ####[facility] [address] [place] [address]Dr. Yilan ChangCreatinine [Mass/Vol]1.62 mg/dLCritically high0.70-1.30The [facility] on above:Performed By: #### TSH, CMP, FT3, BNP, T4, LIPID ####[facility] [address] [place], [place] [address]Dr. Yilan ChangEGFR-AF KXJBQFJY13 mL/min/1.68t8Vmccbhusds low>=60The [facility] on above:Performed By: #### TSH, CMP, FT3, BNP, T4, LIPID ####[facility] Qesgquirow[address] [place], [place] [address]Dr. Yilan ChangEGFR-NON AF VVHRAOOA39 mL/min/1.99r2Hbxisvoaxn low>=60 The [facility] on above:Performed By: #### TSH, CMP, FT3, BNP, T4, LIPID ####[facility] [address]we[address] [place] [address]Dr. Yilan ChangGlobulin (S) [Mass/Vol]3.8 g/dLNoAultman Orrville Hospital Comment on above:Performed By: #### TSH, CMP, FT3, BNP, T4, LIPID ####[facility] [address] [place] [address]Dr. Yilan Vásquez Glucose [Mass/Vol]86 mg/xCSjdime83-928Hyi [facility] HealthComment on above: Performed By: #### TSH, CMP, FT3, BNP, T4, LIPID ####[facility] Amik[address]poju[address] [place], [place] [address]Dr. Yilan ChangPotassium [Moles/Vol]4.8 mmol/LNormal3.5-5.1The [facility] HealthComment on above: Performed By: #### TSH, CMP, FT3, BNP, T4, LIPID ####[facility] Qj[address]zt[address] [place], [place] [address]Dr. Yilan ChangProtein [Mass/Vol]7.8 g/dLNormal6.4-8.2The [facility] HealthComment on above:Performed By: #### TSH, CMP, FT3, BNP, T4, LIPID ####[facility] Mxbsv[address] [place], [place] [address]Dr. Yilan ChangSodium [Moles/Vol]138 mmol/L Mbfzxv452-923Xju [facility] HealthComment on above:Performed By: #### TSH, CMP, FT3, BNP, T4, LIPID ####[facility] Il[address] [place], [place] [address]Dr. Yilan ChangUrea nitrogen [Mass/Vol]41.0 mg/dL Critically high7.0-18.0The [facility] HealthComasc[facility] prov[facility] hospital on above:Performed By: #### TSH, CMP, FT3, BNP, T4, LIPID ####[facility] Vxu[address]jdax[address] [place], [place] [address]Dr. Yilan ChangUrea nitrogen/Creatinine [Mass ratio] 25.3 mg/mgNoAultman Orrville HospitalComment on above:Performed By: #### TSH, CMP, FT3, BNP, T4, LIPID ####[facility] [address] [place] [address]Dr. Aissatou VásquezT4on 97-46-0907U3 [Mass/Vol]9.70 ug/dL Normal4.50-12.10The [facility] HealthComment on above:Performed By: #### TSH, CMP, FT3, BNP, T4, LIPID #### [facility] [address] [address] [address] Aissatou [place] 94-77-5143RVQ2.525 uIU/mLNormal0.358-3.740Gal[facility] Community HospitalComment on above:Performed By: #### TSH, CMP, FT3, BNP, T4, LIPID ####[facility] [address] [place] [address]Dr. Aissatou UriarteT B12 AND FOLATEon 00-28-2321Qgdoojebb (Vitamin B12) [Mass/Vol] 1004.0 pg/mLCritically xiqv051.0-986.0Gal[facility] Community HospitalComment on above: Performed By: #### PSASC, VITAD, IRON, B12FOL ####[facility] [address] [place] [address]Dr. Aissatou VásquezFOLATE6.10 ng/mLCritically low8.60-58.90The [facility] HealthComment on above:Performed By: #### PSASC, VITAD, IRON, B12FOL ####[facility] [address]ksp[address] [place] [address]Dr. Aissatou VásquezVITAMIN D 25 OHon 89-46-5719NIM D 25-OH 31.8 ng/mLNormalGalion Community HospitalComment on above:Performed By: #### PSASC, VITAD, IRON, B12FOL ####[facility] [address] [place] [address]Dr. Aissatou VásquezVIT D RANGESSEE BELOWNormMarietta Memorial HospitalComment on above:Result Comment: <20 ng/mL Vit D deficient 20 - <30 ng/mL Vit D insufficient 30 - 100 ng/mL Vit D sufficient >100 ng/mL Potential ToxicityPerformed By: #### PSASC, VITAD, IRON, B12FOL ####[facility] [address] [place], [place] [address]Kc. Aissatou VásquezCoding Summary.on 50-75-9842Xqiuao Summary.CODING DATE: 01/23/2017 FINAL [facility] STATUS: Home (Routine DC) PAYOR: Medicare [...] By: Gloria Blackburn Date Saved: 01/23/2017 10:07 amNormalWestern [facility] Hospital Creatinineon 55-17-4737Ezfvpgpxjv1.0 mg/dLNormal0.5-1.3FBethesda North HospitalComment on above:Performed By: #### [id number], [id number] ####[facility] [address] [place], [place] [address]dLLUfi 79-76-3589zMMS (black)mL/min/{1.73_m2}Normal>=59[facility] HospitalComment on above: Order Comment: Order added by Discern Expert.Result Comment: eGFR is race adjusted. AA=.Performed By: #### [id number], [id number] ####[facility] [address] [place], [place] [address]mVEQ (non-black) mL/min/{1.73_m2}Normal>=59[facility] HospitalComment on above:Order Comment: Order added by Discern Expert.Result Comment: Chronic kidney disease could be indicated at eGFR's of less than 60 mL/min/1.73m2. Kidney failure is indicated at less than 15 mL/min/1.73m2.Performed By: #### [id number], [id number] ####[facility] [address] [place] [address] Vital Signs Date TimeVital SignValuePerforming CijyhhlnfCfmgmvgn95-25-0530 12:06-0400Body mtnrbi892.4 cmLydia Burris MD Work Phone: [facility] HospitalTofsxauiwk60-34-1091 12:06-0400Body mass index (BMI) [Ratio]24.67 kg/m2Lydia Burris MD Work Phone: [facility] HospitalJyscyziolm64-88-5961 12:06-0400Body rwbaln85.82 kgLydia Burris MD Work Phone: [facility] HospitalSinxcvqdyk57-32-2554 08:30-0400Body temperature 98.1 [degF]Juan Ramon Lucero MD Work Phone: [facility] reBounces [facility] HospitalVisualnet Uqfvjd71-15-6510 08:30-0400Diastolic blood mm[Hg]Juan Ramon Lucero MD Work Phone: [facility] reBounces [facility] HospitalVisualnet Lniovs12-80-8004 08:30-0400Heart rate63 /minJuan Ramon Lucero MD Work Phone: [facility] reBounces [facility] HospitalMusic Messenger (MM)Fhvvql39-99-7356 08:30-0400 Respiratory rate16 /minJuan Ramon Lucero MD Work Phone: [facility] CenterVEEDIMS [facility] HospitalMusic Messenger (MM)Jsrvvf65-23-7545 08:30-2216FgP5% (BldA) [Mass fraction]100 %Juan Ramon Lucero MD Work Phone: [facility] reBounces [facility] HospitalMusic Messenger (MM)Owlcgb41-27-8137 08:30-0400Systolic blood bxyjkzyp021 mm[Hg]Juan Ramon Lucero MD Work Phone: [facility] reBounces [facility] HospitalMusic Messenger (MM)Yfvskq32-09-9160 13:26-0400Body .4 cmJuan Ramon Lucero MD Work Phone: [facility] reBounces [facility] HospitalMusic Messenger (MM)Abbmou42-26-5893 18:15-0400Body mass index (BMI) [Ratio]28.22 kg/z4WipnhzcJuan Ramon Lucero MD Work Phone: [facility] CenterVEEDIMS [facility] Ppeptx21-46-5127 18:15-0400Body szxjto78 kgJuan Ramon Lucero MD Work Phone: [facility]08-26-2025 06:04-0400Body joewpncbocg62.8 [degF]Felix Arguello MD Work Phone: [facility] CenterVEEDIMS [facility] HospitalKywhws76-38-9724 06:04-0400Diastolic blood vevpzwnm94 mm[Hg]Felix Arguello MD Work Phone: [facility] CenterVEEDIM[facility] HospitalUgrejw91-69-3194 06:04-0400Heart rate58 /minFelix Arguello MD Work Phone: [facility] CenterVEEDIMS [facility] HospitalCytywd89-41-2393 06:04-0400 Respiratory rate16 /minFelix Arguello MD Work Phone: [facility]08-26-2025 06:04-9303QoA5% (BldA) [Mass fraction]97 %Felix Arguello MD Work Phone: [facility] CenterVEEDIMS [facility] HospitalKjpwvq60-72-5772 06:04-0400Systolic blood laxffczz508 mm[Hg]Felix Arguello MD Work Phone: [facility]08-26-2025 05:24-0400Body mass index (BMI) [Ratio]28.21 kg/w9CkjdvduFelix Arguello MD Work Phone: [facility] CenterVEEDIMS [facility] HospitalZhiyle40-29-5955 05:24-0400Body myeeqg28 kgFelix Arguello MD Work Phone: [facility] CenterVEEDIMS [facility] HospitalWupczs51-25-0747 00:44-0400Body jxckis707.4 cmFelix Arguello MD Work Phone: [facility] CenterVEEDIMS [facility] HospitalVisualnet Tcmbpa10-62-1961 16:05-0500Body mass index (BMI) [Ratio]24.59 kg/m2Lydia Burris MD Work Phone: [place] [address]Mgsyzzuagp09-02-5744 16:05-0500Body vybamq36.55 kgLydia Burris MD Work Phone: [facility] HospitalByfdpjtgsh54-82-4137 16:05-0500Diastolic blood iximvxgr81 mm[Hg]Lydia Burris MD Work Phone: [facility] HospitalBwolxxpwke33-80-9408 16:05-0500Systolic blood zzpzfplo846 mm[Hg]Lydia Burris MD Work Phone: [facility] HospitalXrcwmatzjx27-74-6687 15:53-0500Body .4 cmChadd Gonzalez MD Work Phone: [facility]12-04-2024 15:53-0500Body mass index (BMI) [Ratio]24.14 kg/v1GqscqzuChadd Gonzalez MD Work Phone: [facility]12-04-2024 15:53-0500Body .01 kgChadd Gonzalez MD Work Phone: [facility]12-04-2024 15:53-0500Diastolic blood mm[Hg]Chadd Gonzalez MD Work Phone: [facility]12-04-2024 15:53-0500Heart rate 72 /minChadd Gonzalez MD Work Phone: [facility]12-04-2024 15:53-0500Systolic blood zpukielb554 mm[Hg]Chadd Gonzalze MD Work Phone: [facility]09-18-2023 13:55-0400Diastolic blood olwarrlf18 mm[Hg]Jodi Banerjee DO Work Phone: [facility]09-18-2023 13:55-0400Heart rate51 /min Jodi Banerjee DO Work Phone: [facility]09-18-2023 13:55-0400Systolic blood osduhbyt448 mm[Hg]Jodi Banerjee DO Work Phone: [facility]02-22-2023 13:12-0500Diastolic blood wedlbcdu43 mm[Hg]Jodi Banerjee DO Work Phone: [facility]02-22-2023 13:12-0500Heart rate69 /min Jodi Banerjee DO Work Phone: [facility]02-22-2023 13:12-0500Systolic blood dipjwitf700 mm[Hg]Jodi Banerjee DO Work Phone: [facility] Encounters Encounter DateEncounter TypeCare ProviderFacilityStart: 05-03-2025 End: 76-54-9178qtrxanfkoxUQI ST[facility]FF-[facility] Centertart: 05-03-2025 End: 17-96-8236Kwjlfoks ReferredDaveronica Spears Chin [facility] Work Phone: Start: 05-02-2025 End: 88-78-5923Apiimabernice Burris MD Work Phone: [facility]oms NEUROLOGYStart: 05-02-2025 End: 34-64-2978Ipuqjdbernice Burris MD Work Phone: [facility] NEUROLOGYStart: 05-02-2025 End: 09-87-3656Ctdzsl outpatient visit 25 minutesLydia Burris MD Work Phone: [facility] NeurologyComment on above: Cognitive decline (Primary Dx); Parkinson's disease without dyskinesia or fluctuating manifestations (HCC); Polyneuropathy; Agitation; 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)Start: 05-02-2025 End: 57-99-6884bcpjtlpfuoQYNW D BEJNot AvailableStart: 03-17-2025 End: 65-51-5115ocfvzcprhqHyoduz R [facility] Work Phone: Start: 03-17-2025 End: 59-55-8189Gzpfurc encounter procedureDaveronica Neely [facility] Work Phone: Start: 02-28-2025 End: 28-00-5409Htzextgisi and management of inpatientJuan Ramon Lucero MD Work Phone: stcz Acute RehabComment on above:S/P hip hemiarthroplasty (Primary Dx); Left displaced femoral neck fracture (HCC); Hip fracture, left, sequelaStart: 02-25-2025 End: 87-39-3933Qionnfhgvc and management of inpatientMohamed Willian Arguello MD Work Phone: stcz Med SurgComment on above:Fall, initial encounter (Primary Dx); Closed fracture of femur, unspecified fracture morphology, unspecified laterality, unspecified portion of femur, initial encounter (HCC); Abnormal chest x-ray; ANIYA (acute kidney injury)Start: 09-13-2024 End: 07-43-4068fageqeluazTHTX D BEJNot AvailableStart: 09-13-2024 End: 62-06-6867Jvxuwa outpatient visit 15 minutesLydia Burris MD Work Phone: [facility]oms [facility] NEUR BComment on above:Cognitive decline (Primary Dx); Parkinson's disease without dyskinesia or fluctuating manifestations (CMS/HCC); PolyneuropathyStart: 07-22-2024 End: 62-43-9735yexrisjyvgMUCGVYJ UK Healthcaretart: 07-19-2024 End: 97-07-6580mzcomukmamCEWY Oli BURRISNot AvailableStart: 07-19-2024 End: 55-34-5735Andgyn outpatient new 60 minutesLydia Burris MD Work Phone: noms [facility] NEUR BComment on above:Cognitive decline (Primary Dx); Parkinson's disease without dyskinesia or fluctuating manifestations (CMS/HCC); PolyneuropathyStart: 07-19-2024 End: 65-16-2463Obpcsq Val Burris MD Work Phone: noms NEUROLOGYStart: 07-19-2024 End: 95-17-2138Zcrcsabernice Burris MD Work Phone: [facility]oms NEUROLOGYStart: 06-16-2024 End: 17-65-8650Tbavdcbhl encounterSoniya Shay LPNPNéstor Physicians Genito- Urinary SurgeonsStart: 06-08-2024 End: 46-04-7431Xqaoez outpatient new 45 minutesChadd Gonzalez MD Work Phone: [facility] Genito-Urinary SurgeonsComment on above:Functional urinary incontinence (Primary Dx); Other specified disorders of kidney and ureter; Urinary incontinence, unspecified typeStart: 06-08-2024 End: 16-62-4773Xojgzybwo encounterChadd Gonzalez MD Work Phone: [facility] Genito-Urinary SurgeonsStart: 05-30-2024 End: 27-01-0373mdnqovwcldPXYPQVGreen Cross Hospital Start: 06-24-2023 End: 99-33-4231rruazvaukgVZUXHBAdena Regional Medical Center Start: 03-23-2023 End: 52-18-1748dhudkjkwlzQVCORVDZAVP M VINCENTFacility:[facility] Start: 03-23-2023 End: 40-22-8020Qdcuxzo encounter procedureChristopher Louisa Adameent DO Work Phone: NeurologyComment on above:Altered mental status, unspecified altered mental status type (Primary Dx); Memory lossStart: 98-93-7671Emixlzmkv encounterChristopher Louisa Adameent DO Work Phone: NeurologyStart: 10-27-2022 End: 21-87-6277emgsxtglivIR PIPE JEFFERS .Facility:J8Ytbjv: 09-24-2022 End: 75-58-6988mehtwqeyifCE PIPE JEFFERS .Facility:K4Iqpvx: 08-27-2022 End: 91-89-3887ouywoeaujkMSIFPVC M HOYFacility:[facility] Hospitaltart: 08-27-2022 End: 92-57-4670Izstdqh encounter procedureChristopher Louisa Vincent DO Work Phone: NeurologyComment on above:Altered mental status, unspecified altered mental status type (Primary Dx); Vitamin D deficiency, unspecifiedStart: 07-11-2022 End: 59-99-4449echbjlitpuFF PIPE HOY .Facility:I9Tzoya: 07-08-2022 End: 41-21-3224fjgcyzxxuqHL PIPE HOY .Facility:H0Evxno: 07-06-2022 End: 63-68-1388fhybczefqnKI PIPE HOY .Facility:Y7Ikaez: 07-01-2022 End: 82-84-6482Bslwdjifxw and management of inpatientDR PIPE HOY .Facility:H1 Start: 06-25-2022 End: 16-30-1084mnaefiradxNJ PIPE HOY .Facility:U8Aajji: 06-05-2022 End: 20-55-1319rmyqabiydjXV PIPE HOY .Facility:C2Ewsbs: 06-25-2017 End: 43-01-4569BjgkckjecvKCCSSWU PHYSICIANFacility:UTMCStart: 01-22-2017 End: 43-55-7790EnovrxfpqnNBWBAX JANGFacility:FTMCStart: 33-05-3592Ivsskty encounter statusChristopher [facility] Work Phone: [facility] Work Phone: Procedures DateProcedureProcedure DetailPerforming ClinicianStart: 78-75-3782HFLOU METABOLIC PANEL W/ REFLEX TO MG FOR LOW Elian Betancourt MD Work Phone: Start: 83-98-9172Tghxd count complete auto&auto difrntl wbcSanjaelyn Betancourt MD Work Phone: Start: 32-90-8430Zusxh metabolic panel calcium total Juan Ramon Lucero MD Work Phone: Start: 21-56-8890ZDKUA METABOLIC PANEL W/ REFLEX TO MG FOR LOW KAkinfemi Torey Arzola MD Work Phone: Start: 83-45-1417XJAAF METABOLIC PANEL W/ REFLEX TO MG FOR LOW Elian Betancourt MD Work Phone: Start: 64-31-1680Khyqj count complete auto&auto difrntl wbcMike Betancourt MD Work Phone: Start: 61-02-1394Wwjgz metabolic panel calcium total Saul Charmaine Crouch MD Work Phone: Start: 53-97-2011QRSWP METABOLIC PANEL W/ REFLEX TO MG FOR LOW KScourtney Betancourt MD Work Phone: Start: 99-22-4367Htvdl count complete auto&auto difrntl wbcMike Betancourt MD Work Phone: Start: 63-89-8142Qisayon function panelScourtney Betancourt MD Work Phone: Start: 35-04-3733SI WOUND CARE/OSTOMY NURSE CLAUDIA AND TREATMarylee Lucero MD Work Phone: Start: 21-95-9963Aapkwe and language therapy regime Mike Betancourt MD Work Phone: Start: 92-84-3632Je thorax w/o contrast materialDavioli Downing MD Work Phone: start: 45-71-0159Mw retroperitoneal real time w/image limitedAna Downing MD Work Phone: start: 16-63-0772JWHAH METABOLIC PANEL W/ REFLEX TO MG FOR LOW KDavid A Aneudy XIONG Work Phone: start: 87-10-3058Mgoac count complete auto&auto difrntl wbcDatamika Downing MD Work Phone: start: 56-01-3268Bzgkt of parathormoneNaveed De XIONG Work Phone: Start: 47-62-8677IDONTIWSSQLRZ METABOLIC W/ BILI PROFILE W/ REFLEX TO MGNaveed De XIONG Work Phone: Start: 36-73-2470FOACO METABOLIC PANEL W/ REFLEX TO MG FOR LOW KDavid A Aneudy XIONG Work Phone: start: 46-68-4088Ybupp count complete auto&auto difrntl wbcDavid Willian Downing MD Work Phone: start: 55-34-0408Qltwwdlegb microscopic onlyRoxanne Edward MD Work Phone: Start: 75-39-7422Pxfvx dip stick/tablet rgnt auto w/o microscopyDasatinderd Willian Downing MD Work Phone: start: 56-59-0625Cwvyx hip unilateral with pelvis 1 viewDavid Willian Downing MD Work Phone: start: 02-25-2025 End: 18-90-9416Rklwpddvnhornuhr hip partialDavid Willian Downing MD Work Phone: start: 31-89-8619NKTLP METABOLIC PANEL W/ REFLEX TO MG FOR LOW KDavid Willian Downing MD Work Phone: start: 61-86-4898Hcbqjuwvta glycosylated h0tAfafew L Cheo [employer] - COLLECT ON DELIVERY CLERK Work Phone: Start: 27-97-7546Gxmgr panelMonica L Andreahoconnie POLICE CAPTAIN [employer]CIN[employer] - COLLECT ON DELIVERY CLERK Work Phone: Start: 96-25-0897Sxggekklrgos pulse oximetryMonica L Cheo [employer] - COLLECT ON DELIVERY CLERK Work Phone: Start: 58-03-7244Xlzca count complete auto&auto difrntl wbcMoshannon Arguello MD Work Phone: Start: 02-25-2025 End: 55-15-2083Tfygidqcuq examination knee 3 viewsMoshannon Arguello MD Work Phone: Start: 36-77-6485Fzhtbhjtqv exam chest single view Felix Arguello MD Work Phone: Start: 07-67-9594Rt cervical spine w/o contrast materialMoshannon Arguello MD Work Phone: Start: 91-07-3950Bo head/brain w/o contrast material Felix Arguello MD Work Phone: Start: 86-25-8148Wbkua metabolic panel calcium total Felix Arguello MD Work Phone: Start: 30-52-1182VVD screeningDR PIPE JEFFERS .Comment on above:Performed By: #### PSASC, VITAD, IRON, B12FOL ####[facility] [address] [place], [place] [address]GcBud Reyez ChangStart: 67-13-5192Nkvnmym of coronary artery bypass graftingS/P CABG (coronary artery bypass graft), PARRA to the LAD, SVG to D1, SVG to OM1, SVG to OM 2, inverted Y grafted PLV and posterior descending artery.Jodi Banerjee DO Work Phone: Plan of Treatment DateCare ActivityDetailAuthorStart: 09-05-2025 End: 74-60-4072Clcstaz encounter yiacrxohf44/03/2026 11:15 AM EST Office Visit [facility] [address] [facility] [address] [place] [address] Lydia Burris MD [address] [id number] [facility] Start: 06-06-2025 End: 55-64-6046Hgracqj encounter lwktwxgur54/02/2025 1:30 PM EST Office Visit JAMES [facility] [address] [facility] [address] [place] [address] Lydia Burris MD [address] [address] [facility] Start: 05-02-2025 End: 36-06-7619Zcjtkpn encounter bqjplykkh43/28/2025 12:00 PM EDT Office Visit JAMES [facility] [address] [facility] [address] [place] [address] Lydia Burris MD [address] [address] Mavis [facility]ides [facility] NeurologyComment on above:ArrivedStart: 03-28-2025 End: 81-12-9547Xpkqefs encounter kdvtfgkmo72/23/2025 2:15 PM EDT Office Visit [facility] [address] [place] [phone] Lydia Burris MD [address] [address] [facility] NEUR BStart: [id number]-19 Vaccine ( season)COVID-19 Vaccine ( season)[facility]: 02-32-0369Iktjfa Wellness Visit (Medicare)Annual Wellness Visit (Medicare)[facility]: 74-74-7017Tvubisacg vaccinationFlu vaccine (#1)[facility]: 09-[facility]2024 End: 38-62-7405Mpwakoq encounter jwqkauctw79/04/2025 1:45 PM EST Office Visit [facility] [address] [facility] [place] [phone] Lydia Burris MD [address] [facility] [address] [address] [facility] [facility] NE[facility] BStart: 44-62-8699Bicxdi Wellness Visit (Medicare Advantage)Annual Wellness Visit (Medicare Advantage)[facility] End: 49-88-3388KM RetroperitoneumUltrasound retroperitoneal complete Imaging Routine Urinary incontinence, unspecified type Expected: 06/08/2024, Expires: 06/08/2025[facility] Work Phone: Comment on above:Expected: 06/08/2024, Expires: 06/08/2025Start: 57-53-2946XIKLL-19 Vaccine ( season)COVID-19 Vaccine ( season)[facility]: 12-73-7220Vwwkqjizh vaccinationInfluenza VaccineProMartin Memorial Hospitaltart: 18-62-1158Jwevgxocx vaccinationInfluenza Vaccine (#1)[facility]: 08-27-2022 End: 55-34-540839619779-wrchrtjhdnyugr D3 [Mass/volume] in Serum or PlasmaRegency Hospital Company Work Phone: Comment on above:Expected: 08/27/2022, Expires: 10/27/2022Start: 08-27-2022 End: 78-12-0407LNEDWTRV TOTAL W/REFLEXRegency Hospital Company Work Phone: Comment on above:Expected: 08/27/2022, Expires: 10/27/2022Start: 55-42-3663CKJZFWW DIRECTIVE DISCUSSIONADVANCE DIRECTIVE DISCUSSIONKettering Health Springfieldtart: 46-56-9862RZCEUAHEQM ASSESSMENTDEPRESSION ASSESSMENTKettering Health Springfieldtart: 19-82-5377Emgihrmyz vaccinationINFLUENZA (#1) [facility]: 44-02-1489SANIUPUR SCREENDIABETES SCREENBlanchard Valley Health [facility] Start: 88-68-4853Qsyphnlo ScreeningDiabetes ScreeningKettering Health Springfieldtart: 84-04-7424Pllxsyveelg Syncytial Virus (RSV) or age 60 yrs+ (1 - 1-dose 75+ series)Respiratory Syncytial Virus (RSV) or age 60 yrs+ (1 - 1-dose 75+ series)[facility] InstituteStart: 84-50-8130Voonexdrq B surface antibody levelLDL CHOLESTEROLKettering Health Springfieldtart: 57-47-8046Pfnb Risk ScreeningFall Risk ScreeningMartin General Hospitaltart: 23-84-1662Uuarzezbaijn Vaccine: 65+ (1 - PCV)Pneumococcal Vaccine: 65+ (1 - PCV)[facility]: 53-82-9218BHSZVPGHHJUW: 65+ (1 - PCV)PNEUMOCOCCAL: 65+ (1 - PCV)[facility]: 67-89-2542Prlxlvvckrphym of varicella zoster vaccineZoster (Shingles) Vaccine (1 of 2)[facility] Hospitalt[facility]: 76-24-2037Qteppola vaccine (1 of 2)Shingles vaccine (1 of 2)[facility] CenterStart: 04-79-2437GMMWQTBN VACCINE (1 of 2)SHINGRIX VACCINE (1 of 2)[facility] Start: 62-07-3325VBiZ,Tdap and Td Vaccines (1 - Tdap)DTaP,Tdap and Td Vaccines (1 - Tdap)[facility]: 78-32-1505DGmM/Tdap/Td vaccine (1 - Tdap)DTaP/Tdap/Td vaccine (1 - Tdap)[facility]: 1959 Urine microalbumin profileKettering Health Springfieldtart: 78-38-1492Rmhldszdxx Screen Depression ScreenHospital Corporation of America: 06-45-5434Nertfmyzvp Screening Depression ScreeningMartin General Hospitaltart: 29-72-4976Nlvjdmc Screening Tobacco ScreeningMartin General Hospitaltart: 37-31-6627YRJKP-19 VACCINE (#1) COVID-19 VACCINE (#1)[facility] End: 70-84-5477Rzhvtvou identified in Urine by CultureUrine Culture Microbiology Routine Urinary incontinence, unspecified type 1 Occurrences starting 10/2023 until 06/08/2025[facility] CenterComment [facility] above:1 Occurrences starting 06/08/2024 until 06/08/2025 End: 19-08-9710Qklvb metabolic 2000 panel - Serum or PlasmaBasic Metabolic Panel Lab Routine Every MWF at 6:30AM (BMT lab orders) for 3 Weeks starting 03/06/20 until 03/24/2025, 1 [facility] on above:Every MWF at 6:30AM (BMT lab orders) for 3 Weeks starting 03/06/2025 until 03/24/2025, 1 completed End: 80-58-7253Fdkwi Metabolic Panel w/ Reflex to MGBasic Metabolic Panel w/ Reflex to MG Lab Routine Weekly for 4 Occurrences starting 03/01/2025 until 03/22/2025, 3 [facility] HealthPers[facility] on above:Weekly for 4 Occurrences starting 03/01/2025 until 03/22/2025, 3 completed End: 36-72-4891CTB W Auto Differential panel - BloodCBC auto differential Lab Routine Weekly for 4 Occurrences starting 03/01/2025 until 03/22/2025, 3 c ompletedB AquaHydratePershing Memorial Hospital on above:Weekly for 4 Occurrences starting 03/01/2025 until 03/22/2025, 3 completedIntermittent pulse oximetry Pulse Oximetry Spot Check Respiratory Care Routine As Needed until discontinued starting 02/28/2025 [facility]HydratePers[facility] Hospital on above:As Needed until discontinued starting 02/28/2025Nasal Cannula oxygenNasal Cannula oxygen Respiratory Care Routine As Needed until discontinued starting 02/28/2025 [facility]ydratePers[facility] Hospital on above:As Needed until discontinued starting 02/28/2025Oxygen therapy [Minimum Data Set]Initiate Oxygen Therapy Protocol Respiratory Care Routine Daily until discontinued starting 02/25/2025 [facility]ydratePers[facility] Hospital on above:Daily until discontinued starting 02/25/2025Oxygen therapy [Minimum Data Set]Initiate Oxygen Therapy Protocol Respiratory Care Routine As Needed until discontinued starting 02/25/2025 [employer] Comment on above:As Needed until discontinued starting 02/25/2025Oxygen therapy [Minimum Data Set]Initiate Oxygen Therapy Protocol Respiratory Care Routine Daily until discontinued starting 02/28/2025 [employer] Work Phone: Comxqtq on above:Daily until discontinued starting 02/28/2025 End: 79-44-1325VJQOIDKX REJECTIONHonorhealth Scottsdale [facility] AquaHydratePershing Memorial Hospital on above:Once for 1 Occurrences starting 03/13/2025 until 03/13/2025 End: 63-81-0161Rlpneo and language therapy regimeSLP eval and treat ULTRA SOUND TECHNICIAN Routine One Time for 1 Occurrences starting 02/28/2025 until 02/28/2025 [facility]ydratePers[facility] on above:One Time for 1 Occurrences starting 02/28/2025 until 02/28/2025Spirometry panelIncentive spirometry Respiratory Care Routine Every 2hr while awake until discontinued starting 02/25/2025 [employer] Comment on above:Every 2hr while awake until discontinued starting 02/25/2025 Spirometry panelBon Riverview Health InstituteComment on above:Daily until discontinued starting 02/28/2025Every 2hr while awake until discontinued starting 02/28/2025[facility] Immunizations Immunization DateImmunizationNotesCare ChvgswgwCfstausg84-84-4115xfdojxism virus vaccine, unspecified formulationChristopher Chriss DO Work Phone: [facility] Payers DatePayer CategoryPayerPolicy [id number] 2025Self-pay 2024Medicare (Managed Care)[id number] 2024Medicare [place] MEDICARE [id number] [id number] [id number] [id number] Health Insurance [id number] 2004Medicare [id number] [id number] 1960 [id number] [id number] [id number] 2.16.840.1.614144.3.57[id number] 2.16.840.1.483695.3.57[id number] 2..840.1.758609.3.579.[id number] 2..840.1.608573.3.57[id number] 2..840.1.935600.3.57[id number] 2.840.1.412655.3.57[id number] 2.840.1.950697.3.57[id number] 2.840.1.841056.3.579.[id number] 2..840.1.867356.3.57[id number] 2.840.1.172896.3.57[id number] 2..840.1.548534.3.579.[id number] 2.16.840.1.593333.3.57[id number] 2.16.840.1.472660.3.57[id number] 2.16840.1.020496.3.[id number] 2.16.840.1.781[id number] 2.16.840.1.965639.3.579.2.531 Social History DateTypeDetailFacilityStart: 08-27-2022 End: 51-21-5365Dnykwpo smoking status NHISEx-smokerBlanchard Valley Health System [facility] HospitalHistory of tobacco useCurrent smokerBlanchard Valley Health System [facility] Valley HospitalHistory of tobacco useCigarette Smoker [facility]: 08-27-2022 End: 81-65-3510Svgonejsuz smoked current (pack per day) - Dyhacuxp0Ssmeahgbq ClinicStart: 36-95-7558Zxnstfl use and exposureFormer smokeless tobacco user [facility] End: 90-57-1333Giyzvoa of tobacco useUser of smokeless tobaccoBlanchard Valley Health System [facility] Start: 08-27-2022 End: 58-53-8734Ipherkl intakeCurrent drinker of alcohol (finding)[facility]: 02-85-7313Jjkzgsy Commentquit 40 yrs agoK[facility]tering Health Springfieldtart: 52-03-1912Xmsagvs CommentHe drinks 4 glasses of red wine weeklyBlanchard Valley Health System [facility] Start: 69-79-9206Cfb Assigned At BirthNot on fileKettering Health Springfieldtart: 03-23-2023 End: 43-62-7473Njdbiyd use panelKettering Health Springfieldtart: 41-87-6639Jdipkyec Score (1-100), lower number is lower mlsq50Yfsezolkv[address] [place], [place] [address]tart: 03-05-2023 End: 50-36-5930Cyycdfi use and exposureSmokeless tobacco non-userN[facility]S Healthcare Start: 83-42-9147Vmwaitilb beverage intakeLifetime non-drinker (finding)[facility] HealthcareTobacco smoking status NHISTobacco smoking consumption unknown [facility] SystemStart: 25-65-1985Ubw assigned at birthB[facility] SystemStart: 02-08-2015 End: 91-88-3957SruXxjh (finding)[facility] SystemStart: 76-58-6035Peebyeb smoking status NHISNever smoked tobaccoBon Secours Mercy HealthIn the past 12 months, was there a time when you were not able to pay the mortgage or rent on time?NoBon [employer](I/We) worried whether (my/our) food would run out before (I/we) got money to buy more.Never trueBon [employer] NEGATED: Highlighted rowStart: NINFHistory of tobacco usePassive smokerNOMS Healthcare Medical Equipment Procedure CodeEquipment CodeEquipment Original TextEquipment IdentifierDates Component Uplr Byz40vs Hip Co Chrom Molybdenum Ally Mod - [id number] ()[id number] FDAStart: 43-66-8569Gosf Fem L125mm Kid66lp Hip Ti Pps Std Offset Julieta Pressfit - [id number] ()[id number], [id number] FDAStart: 08-94-8721Ordkct Fem Nk L-6mm Tapr Hip Co Chrom Molybdenum Ally Endo - [id number] ()[id number], [id number] FDAStart: 02-25-2025 Clinical Notes 05-28-2011 to 05-02-2025 Note Date & TqbfNretYxqgmvnf72-90-3997 History of Present illness Narrative* Lydia Burris MD - 05/02/2025 12:00 PM EDTAssociated Problem(s): Cognitive decline (Continue current regimen.) Long discussion in office regarding amyloid. May proceed with eval/tx when pf/family willing. (Memory care could be contemplated at any time.) * Lydia Burris MD - 05/02/2025 12:00 PM EDTAssociated Problem(s): Parkinson disease (HCC) (Continue current regimen.) (Note that protein in stomach will decrease absorption (therefore, give at least 45 min before or 2h after food). * Lydia Burris MD - 05/02/2025 12:00 PM EDTAssociated Problem(s): Polyneuropathy Continue B-complex. Minimally high B12 is NOT problematic. * Lydia Burris MD - 05/02/2025 12:00 PM EDTAssociated Problem(s): 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) * Lydia Burris MD - 05/02/2025 12:00 PM EDTAssociated Problem(s): Agitation Could restart sertraline 50 if/when desired. * Lydia Burris MD - 05/02/2025 12:00 PM EDT Images from the original note were not included. Outpatient Progress Note Patient: Leanna Nguyễn Dept: Neurology : 1940 Appt Date: 05/02/2025 Prev Appt: Visit date not found Chief Complaint Patient presents with Parkinson's Disease Appointment Note -- Incr memory issues. Assessment and Plan - Assessment & Plan Cognitive decline (Continue current regimen.) Long discussion in office regarding amyloid. May proceed with eval/tx when pf/family willing. (Memory care could be contemplated at any time.) Parkinson's disease without dyskinesia or fluctuating manifestations (HCC) (Continue current regimen.) (Note that protein in stomach will decrease absorption (therefore, give at least 45 min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 include coronary artery disease status post CABG, CHF, hypothyroidism, hypertension, hyperlipidemia, pulmonary fibrosis, chronic kidney disease, Parkinson disease, dementia, patient presented to [facility] after a fall, he had left hip pain, found to have acute subcapital left femoral neck fracture, patient underwent left hip hemiarthroplasty on 02/25 While in hospital, patient had worsening creatinine, was evaluated by table worker, treated with IVfluids, torsemide was kept on hold, patient, creatinine improved to his baseline, Patient required Shell's catheter placement which was later removed Transferred to [facility] acute rehab unit for further management Past Medical History: History reviewed. No pertinent past medical history. Past Surgical History: Past Surgical History: Procedure Laterality Date HIP SURGERY Left 02/25/2025 HIP HEMIARTHROPLASTY performed by Ana Downing MD at [facility] OR Medications Prior to Admission: Prior to Admission medications Medication Sig Start Date End Date Taking? Authorizing Provider amLODIPine (NORVASC) 2.5 MG tablet Take 1 tablet by mouth daily uRth Howe MD aspirin 81 MG chewable tablet Take 1 tablet by mouth daily Ruth Howe MD carbidopa-levodopa (SINEMET) 10-100 MG per tablet Take 1 tablet by mouth 3 times daily Ruth Howe MD cephALEXin (KEFLEX) 500 MG capsule Take 1 capsule by mouth 2 times daily Ruth Howe MD folic acid (FOLVITE) 400 MCG tablet Take 1 tablet by mouth daily Ruth Howe MD levothyroxine (SYNTHROID) 100 MCG tablet Take 1 tablet by mouth Daily Ruth Howe MD liothyronine (CYTOMEL) 5 MCG tablet Take 1 tablet by mouth daily Ruth Howe MD memantine (NAMENDA) 10 MG tablet Take 1 tablet by mouth 2 times daily Ruth Howe MD Multiple Vitamins-Minerals (THERAPEUTIC MULTIVITAMIN-MINERALS) tablet Take 1 tablet by mouth daily Ruth Howe MD potassium chloride (KLOR-CON) 20 MEQ packet Take 10 mEq by mouth daily Ruth Howe MD sennosides-docusate sodium (SENOKOT-S) 8.6-50 MG tablet Take 1 tablet by mouth daily Ruth Howe MD sertraline (ZOLOFT) 25 MG tablet Take 1 tablet by mouth daily Ruth Howe MD tolterodine (DETROL) 1 MG tablet Take 1 tablet by mouth 2 times daily Ruth Howe MD torsemide (DEMADEX) 10 MG tablet Take 1 tablet by mouth daily Ruth Howe MD vitamin B-12 (CYANOCOBALAMIN) 500 MCG tablet Take 1 tablet by mouth daily Ruth Howe MD vitamin D 50 MCG (2000 UT) CAPS capsule Take 1 capsule by mouth daily ProviderRuth MD Allergies: Patient has no known allergies. Social History: Tobacco: reports that he has never smoked. He has never been exposed to tobacco smoke. He has neverused smokeless tobacco. Alcohol: has no history on file for alcohol use. Drug Use: reports no history of drug use. Family History: No family history on file. Review of Systems: Positive and Negative as described in HPI. CONSTITUTIONAL: negative for fevers, chills, sweats, fatigue, weight loss HEENT: negative for vision, hearing changes, runny nose, throat pain RESPIRATORY: negative for shortness of breath, cough, congestion, wheezing. CARDIOVASCULAR: negative for chest pain, palpitations. GASTROINTESTINAL: negative for nausea, vomiting, diarrhea, constipation, change in bowel habits, abdominal pain GENITOURINARY: negative for difficulty of urination, burning with urination, frequency INTEGUMENT: negative for rash, skin lesions, easy bruising HEMATOLOGIC/LYMPHATIC: negative for swelling/edema ALLERGIC/IMMUNOLOGIC: negative for urticaria , itching ENDOCRINE: negative increase in drinking, increase in urination, hot or cold intolerance MUSCULOSKELETAL: Pain, left hip NEUROLOGICAL: negative for headaches, dizziness, lightheadedness, numbness, pain, tingling extremities BEHAVIOR/PSYCH: Physical Exam: BP 128/61 Pulse 71 Temp 98.6 F (37 C) (Oral) Resp 18 Ht 1.854 m (6' 0.99 ) Wt 97 kg (213lb 13.5 oz) SpO2 99% BMI 28.22 kg/m Temp (24hrs), Av.4 F (36.9 C), Min:98.1 F (36.7 C), Max:98.6 F (37 C) No results for input(s): POCGLU in the last 72 hours. No intake or output data in the 24 hours ending 03/15/25 6998 General Appearance: alert, well appearing, and in no acute distress, wheelchair-bound Mental status: oriented to person, place, and time with normal affect Head: normocephalic, atraumatic. Eye: no icterus, redness, pupils equal and reactive, extraocular eye movements intact, conjunctiva clear Ear: normal external ear, no discharge, hearing intact Nose: no drainage noted Mouth: mucous membranes moist Neck: supple, no carotid bruits, thyroid not palpable Lungs: Bilateral equal air entry, clear to ausculation, no wheezing, rales or rhonchi, normal effort Cardiovascular: normal rate, regular rhythm, no murmur, gallop, rub. Abdomen: Soft, nontender, nondistended, normal bowel sounds, no hepatomegaly or splenomegaly Neurologic: There are no new focal motor or sensory deficits, normal muscle tone and bulk, no abnormal sensation, normal speech, cranial nerves II through XII grossly intact Skin: No gross lesions, rashes, bruising or bleeding on exposed skin area Extremities: Postsurgical changes present left hip, mild edema in left leg Psych: Investigations: Laboratory Testing: Recent Results (from the past 24 hours) Basic Metabolic Panel w/ Reflex to MG Collection Time: 03/15/25 7:33 AM Result Value Ref Range Sodium 140 136 - 145 mmol/L Potassium 4.3 3.7 - 5.3 mmol/L Chloride 103 98 - 107 mmol/L CO2 25 20 - 31 mmol/L Anion Gap 12 9 - 16 mmol/L Glucose 111 (H) 74 - 99 mg/dL BUN 33 (H) 8 - 23 mg/dL Creatinine 2.1 (H) 0.7 - 1.2 mg/dL Est, Glom Filt Rate 30 (L) >60 mL/min/1.73m2 Calcium 9.2 8.6 - 10.4 mg/dL CBC auto differential Collection Time: 03/15/25 7:33 AM Result Value Ref Range WBC 7.3 3.5 - 11.0 k/uL RBC 3.87 (L) 4.21 - 5.77 m/uL Hemoglobin 11.3 (L) 13.5 - 17.5 g/dL Hematocrit 36.6 (L) 41.0 - 53.0 % MCV 94.6 80.0 - 100.0 fL MCH 29.2 26.0 - 34.0 pg MCHC 30.9 (L) 31.0 - 37.0 g/dL RDW 14.0 11.5 - 14.9 % Platelets 206 150 - 450 k/uL MPV 9.5 8.0 - 13.5 fL NRBC Automated 0.0 0 per 100 WBC Neutrophils % 59 36 - 66 % Lymphocytes % 25 24 - 44 % Monocytes % 11 3 - 12 % Eosinophils % 4 0 - 4 % Basophils % 1 0 - 2 % Immature Granulocytes % 0 0 % Neutrophils Absolute 4.28 1.50 - 8.10 k/uL Lymphocytes Absolute 1.83 1.10 - 3.70 k/uL Monocytes Absolute 0.80 0.10 - 1.20 k/uL Eosinophils Absolute 0.27 0.00 - 0.44 k/uL Basophils Absolute 0.05 0.00 - 0.20 k/uL Immature Granulocytes Absolute 0.03 0.00 - 0.30 k/uL Consultations: IP CONSULT TO DIETITIAN IP CONSULT TO SOCIAL WORK IP CONSULT TO INTERNAL MEDICINE IP CONSULT TO NEPHROLOGY Assessment : Primary Problem Hip fracture, left, sequela Active Hospital Problems Diagnosis Date Noted S/P hip hemiarthroplasty [Z96.649] 03/01/2025 Closed fracture of left hip (HCC) [S72.002A] 03/01/2025 Hip fracture, left, sequela [S72.002S] 02/28/2025 Plan: Left hip fracture status post left hip hemiarthroplasty, on 02/25 Coronary artery disease status post CABG, on aspirin, not on statin, patient could not tell me whether he is allergic to statin or not, review of previous office visit notes, Lipitor is not mentionedin his home medication list, will discuss with close family, regarding previous documented statin allergies, patient, recently evaluated by loading unit operator, last LDL was 71 CHF, compensated Parkinson disease, follows closely with neurology as outpatient Dementia on Namenda Hypothyroidism on Synthroid and liothyronine , TSH tested recently is okay Chronic kidney disease, creatinine inproved to 1.8 , diuretics kept on hold, patient evaluated by table worker starting patient on heparin 5000 every 8 for DVT prophylaxis Underwent CT of chest, 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 Non-anion gap acidosis\\\\\\\ will add sodium bicarb. No chest pain shortness of breath 03/15 Blood pressure getting stabilized Creatinine slightly worse 2.1 today, nephro on board no chest pain shortness of breath * Sully Roman OT - 03/15/2025 4:26 PM EDT [facility] Acute Rehabilitation Occupational Therapy Daily Treatment Note Date: 03/15/25 Patient Name: Leanna Nguyễn Room: 2619/2619-01 Account: [id number] : 1940 (84 y.o.) Gender: male Diagnosis: left femoral neck fracture following fall. L hip Hemiarthroplasty , parkinson's. Additional Pertinent Hx: Leanna Nguyễn is a 84 y.o. right-handed male admitted to the [facility] Acute [facility] unit on 02/28/2025. He was originally admitted to [facility] on 02/25/2025 for left femoral neck fracture following fall. 84-year-old male with a history of Parkinson's, CHF, coronary artery disease, CABG, hyperlipidemia, hypertension, altered mental status, syncope and collapse, pulmonary fibrosis, CKD and dementia presenting with hip pain after fall. Patient is disoriented at baseline. Cardiology 02/26-aspirin resumed, torsemide held in setting of hypokalemia. Internal medicine-left femoral neck fracture status post left hip hemiarthroplasty 02/25 lives in assisted living Ortho-displaced femoral neck fracture status post left hip hemiarthroplasty on 02/25 Nephrology- patientnoted to have ANIAY on CKD postoperative, UA and renal ultrasound unremarkable. Improved with gentle rehydration. Palliative care brother has power of civil attorney no , no children parents are deceasedStevnanette is the only sibling and next of kin reports that his daughter Kimberly is secondary, brother feels he can make his own decision, currently full code Treatment Diagnosis: impaired self care status d/t L hip hemiarthroplasty Past Medical History: has no past medical history on file. Past Surgical History: has a past surgical history that includes hip surgery (Left, 02/25/2025). Restrictions Restrictions/Precautions Restrictions/Precautions: Bed Alarm, Weight Bearing, Fall Risk, Surgical Protocols (WBAT LLE, posterior hip precautions) Activity Level: Up as Tolerated, Up with Assist Required Braces or Orthoses?: No Implants Present? : Metal implants (L blanka arthroplasty) Position Activity Restriction Hip Precautions: Posterior hip precautions, No hip flexion > 90 degrees, No sudden or extreme motions, No hip internal rotation, No hip external rotation, No ADduction Other Position/Activity Restrictions: Procedure: HIP HEMIARTHROPLASTY (Left: Hip) 02.25.[address] Downing-posterior precautions. Pt has history of parkinson's. Lower Extremity Weight Bearing Restrictions Left Lower Extremity Weight Bearing: Weight Bearing As Tolerated Subjective Subjective Subjective: i'm glad you're here. Pain: pt with no signs of pain in am during standing, transfers, this pm: pt crying with LLE movement. OT let nsg know to see if pt is due for pain meds. Objective Cognition Cognition Arousal/Alertness: Inconsistent responses to stimuli (am, alert, pm was sleeping and took extra time to become partially alert.) Following Commands: Follows one step commands with increased time;Follows one step commands with repetition;Inconsistently follows commands (fair follow command in am, poor in pm) Attention Span: Difficulty dividing attention;Difficulty attending to directions;Attends with cues to redirect Memory: Decreased short term memory;Decreased recall of recent events;Decreased recall of precautions;Impaired Safety Judgement: Decreased awareness of need for assistance;Decreased awareness of need for safety Problem Solving: Assistance required to generate solutions;Assistance required to identify errors made;Assistance required to correct errors made;Assistance required to implement solutions;Decreased awareness of errors Insights: Decreased awareness of deficits Initiation: Requires cues for all Sequencing: Requires cues for all Cognition Comment: pt alert and participating, attempting to follow commands in am. in pm: pt was sleeping seated in w/c, attempted to assist pt back to bed but pt states he wants to stay up. 10 minutes after OT introduced idea of attending activity for Trivia, pt became alert and brought up wanting to attend. Activities of Daily Living Feeding Assistance Level: Independent Skilled Clinical Factors: observed pt feeding self banana off his tray- was able to open banana by himself. Lower Extremity Bathing Assistance Level: Dependent Skilled Clinical Factors: pt dependent for LB bathing standing with RW with BUE support and max A x2 for stand balance and to have TA to wash ronit, bottom. pt washed his thighs to knees with set up,was assisted to wash distal BLE and lotion was applied to dry skin B feet. Lower Extremity Dressing Equipment Provided: Reachers Assistance Level: Dependent Skilled Clinical Factors: mod A with reachers to don pullups and pants over feet. pt then able to grasp with hands and pull onto his legs. TA x 2 to stand with RW and don pants over hips. Putting On/Taking Off Footwear Assistance Level: Dependent Skilled Clinical Factors: assisted to don B teds. attempted to use sock aide (TA to load sock) but sock pulled off foot too soon so still needed TA. Toileting Assistance Level: Dependent Skilled Clinical Factors: TA x 2 to stand with RW for ronit, bottom hygiene post BM on toilet and for pants over hips. Toilet Transfers Technique: Stand pivot Equipment: Grab bars Skilled Clinical Factors: SPT W/c to toilet to w/c with TA x 2 with RW. Mobility Roll Left Assistance Level: Dependent;Requires x 2 assistance Supine to Sit Assistance Level: Requires x 2 assistance;Dependent Skilled Clinical Factors: Ax2 trunk. A x 1 LE Sit to Stand Assistance Level: Dependent;Requires x 2 assistance Stand to Sit Assistance Level: Dependent;Requires x 2 assistance Bed To/From Chair Technique: Stand pivot Assistance Level: Dependent;Requires x 2 assistance Skilled Clinical Factors: RW Stand Pivot Assistance Level: Dependent;Requires x 2 assistance Skilled Clinical Factors: RW Functional Mobility Device: Wheelchair Activity: To/From bathroom Assistance Level: Dependent OT Exercises Static Standing Balance Exercises: TA x 2 stand with RW, despite pt attempting to move feet (followed cues) to obtain more upright stance, pt with severe posterior lean and needed max A to bring hipsforward to promote more upright posture during all stand, transfers during OT today. Dynamic Standing Balance Exercises: concha 2-4 min x 5 stands, pivots this am with RW and TA x 2 Postural Correction Exercises: pm TA x 2 to reposition pt to back of w/c. pt not following directions even after he regained alertness (was sleeping upon OT arrival) Assessment Assessment Activity Tolerance: Treatment limited secondary to decreased cognition;Patient limited by pain;Patient limited by endurance Patient Education Education Education Given To: Patient Education Provided: Mobility Training;Transfer Training;ADL Function Education Provided Comments: due to decreased cognition: ed by completing transfers , standing during adls and given step by step directions re stance, hand placement. Education Method: Demonstration;Verbal Barriers to Learning: Cognition Education Outcome: Demonstrated understanding Safety Devices Type of devices: Call light within reach;Left in chair;All fall risk precautions in place;Patient at risk for falls;Chair alarm in place (pm: left in w/c in dayroom with activity in progress and SOFTWARE DEVELOPMENT ENGINEER.) Family education Completed :family (brother, niece and nephew) attended training in PT set up on 03-10. Goals Patient Goals Patient goals : pt Short Term Goals Time Frame for Short Term Goals: 1 week Short Term Goal 1: indep feeding and grooming Short Term Goal 2: Pt will complete UB ADLs with set up A and Good cognition Short Term Goal 3: max x 1 toileting- LE bathe bottom and pants over hips assist stand with BUE support on lynette stedy or least restrictive device. Short Term Goal 4: concha 4-5 min static stand with BUE support with mod A of 1. Short Term Goal 5: Pt will participate in 30+ minutes of therapeutic exercises/functional activities to increase safety and independence with self care and mobility Additional Goals?: Yes Short Term Goal 6: concha 10 reps shld, elbow AROM with mod resistance on R and min on L for BUE strengthening for use during mobility for adls. Short Term Goal 7: able to tolerate safely performing adl transfers with max A x 2 and RW 50 % of the time during therapy. Group Home Goals Time Frame for Group Home Goals : by discharge Group Home Goal 1: mod x 1 LE bathe and dress (with cues, assist provided due to pt poor memory withL hip precautions. ) Test Technician Goal 2: mod x 1 toileting and adl transfers Group Home Goal 3: concha 6-7 min stand, transfer, amb with BUE support on RW and mod A. Group Home Goal 4: concha 15 reps shld, elbow AROM with mod resistance on R and min on L for BUE strengthening for use during mobility for adls. Group Home Goal 5: increase MMT B elbow to 4+/5, L shld to 4-/5 and R shld to 4/5 to demo improved BUE strengthening for use during mobility for adls. Plan Occupational Therapy Plan Times Per Week: 900 min of PT/OT/ST Times Per Day: Twice a day Current Treatment Recommendations: Strengthening, Balance training, Functional mobility training, Endurance training, Pain management, Safety education & training, Patient/Caregiver education & training, Equipment evaluation, education, & procurement, Positioning, Self-Care / ADL, Co-Treatment, Cognitive/Perceptual training, Wheelchair mobility training 03/15/25 1323 03/15/25 1324 OT Individual Minutes Time In 0838 1247 Time Out 0955 1311 Minutes 77 24 OT Individual Minutes OT Individual Minutes Time In: 1247 Time Out: 1311 Minutes: 24 * Ella Arzola MD - 03/15/2025 2:59 PM EDT NEPHROLOGY PROGRESS NOTE Patient : Leanna Nguyễn; 84 y.o. Location: 2619/2619-01 Attending: Juan Ramon Lucero MD Admit Date: 02/28/2025 Hospital Day: 15 Reason for consultation: Management of acute kidney injury superimposed on chronic kidney disease stage IIIb. Requesting physician: Juan Ramon Lucero MD. Interval history: Patient was seen and examined today and does not have any acute complaints. He specifically denies shortness of breath, chest pain or acute urinary symptoms. History of Present Illness: This is a 84 y.o. male Patient with past medical history of atherosclerotic coronary artery disease status post CABG, history of hyperlipidemia, essential hypertension, hypothyroidism, Parkinson's disease dementia with baseline disorientation former smoker, history of pulmonary fibrosis mild bilateral cardiac carotid artery disease, CKD stage III. Patient presented to [facility] on 02/25/2025 with complaints of left hip pain after he recently sustained a fall, patient denies dizziness nausea vomiting chest pain X-ray showed displaced femoral neck fracture of left hip, patient underwent left hip hemiarthroplasty on 02/25/2025 Patient serum creatinine on admission 1 on 02/25/2025 noted with 2.8 mg/dL and therefore nephrology was consulted, during the hospital stay kidney function improved to 1.8 mg/dL on 02/27/2025, patient was discharged to acute rehab. Nephrology was consulted to follow for ANIYA on CKD. Patient seen and examined at acute rehab no acute events patient is tired and exhausted after the physical therapy laying comfortably not in acute distress Current Medications: torsemide (DEMADEX) tablet 10 mg, Every Other Day amLODIPine (NORVASC) tablet 5 mg, Daily sodium bicarbonate tablet 650 mg, BID oxyCODONE HCl (OXY-IR) immediate release tablet 10 mg, 2 times per day And oxyCODONE HCl (OXY-IR) immediate release tablet 10 mg, Q4H PRN aspirin EC tablet 81 mg, Daily methocarbamol (ROBAXIN) tablet 500 mg, 4x Daily miconazole (MICOTIN) 2 % powder, BID heparin (porcine) injection 5,000 Units, 3 times per day polyethylene glycol (GLYCOLAX) packet 17 g, Daily senna (SENOKOT) tablet 17.2 mg, Daily PRN bisacodyl (DULCOLAX) suppository 10 mg, Daily PRN acetaminophen (TYLENOL) tablet 650 mg, Q6H PRN carbidopa-levodopa (SINEMET) 25-100 MG per tablet 1 tablet, TID levothyroxine (SYNTHROID) tablet 100 mcg, Daily liothyronine (CYTOMEL) tablet 5 mcg, Daily melatonin tablet 3 mg, Nightly PRN memantine (NAMENDA) tablet 10 mg, BID ondansetron (ZOFRAN-ODT) disintegrating tablet 4 mg, Q8H PRN sertraline (ZOLOFT) tablet 25 mg, Daily Objective: CURRENT TEMPERATURE: Temp: 98.6 F (37 C) MAXIMUM TEMPERATURE OVER 24HRS: Temp (24hrs), Av.4 F (36.9 C), Min:98.1 F (36.7 C), Max:98.6 F (37 C) CURRENT RESPIRATORY RATE: Respirations: 18 CURRENT PULSE: Pulse: 71 CURRENT BLOOD PRESSURE: BP: 128/61 24HR BLOOD PRESSURE RANGE: Systolic (24hrs), Av , Min:123 , Max:128 ; Diastolic (24hrs), Av, Min:61, Max:61 24HR INTAKE/OUTPUT: No intake or output data in the 24 hours ending 03/15/25 1459 Physical Exam: GENERAL APPEARANCE: Comfortable not in acute distress HEAD: normocephalic and atraumatic. NOSE: No nasal discharge. NECK: Supple; no jugular venous distention CARDIAC: Normal S1 and S2. No S3, S4 or murmurs. Rhythm is regular. LUNGS: Clear to auscultation without rales, rhonchi, wheezing or diminished breath sounds. ABDOMEN: Soft with normal bowel sounds. EXTREMITIES: No edema. Peripheral pulses intact. NEURO: awake, alert and oriented; no focal neurologic deficits. Labs: CBC: Recent Labs 03/15/25 0733 WBC 7.3 RBC 3.87* HGB 11.3* HCT 36.6* MCV 94.6 MCH 29.2 MCHC 30.9* RDW 14.0 PLT 206 MPV 9.5 BMP: Recent Labs 03/13/25 1353 03/15/25 0733 NA 133* 140 K 4.7 4.3 CL 102 103 CO2 19* 25 BUN 28* 33* CREATININE 1.8* 2.1* GLUCOSE 124* 111* CALCIUM 9.4 9.2 Assessment/plan: 1. Acute kidney injury superimposed on chronic kidney disease stage IIIb - consistent with prerenalazotemia. Creatinine is trending up with re-initiation of diuretics. He is not in pulmonary edema at this time. Avoid nephrotoxic agents. Strict urine output documentation. Basic metabolic profile Thursday, Thursday and Thursday. 2. Systemic hypertension - blood pressure control is adequate. Prognosis is guarded. * Lenore Vivas, ULTRA SOUND TECHNICIAN - 03/15/2025 1:46 PM EDT Speech Language Pathology [facility] Cognitive Treatment Note Date: 03/15/2025 Patient s Name: Leanna Nguyễn Diagnosis: Patient Active Problem List Diagnosis Code Left displaced femoral neck fracture ([facility]) S72.002A Fall W19.XXXA ANIYA (acute kidney injury) N17.9 Parkinson's disease ([facility]) G20.A1 Coronary artery disease involving [place] coronary artery of [place] heart without angina pectoris I25.10 Hip fracture, left, sequela S72.002S S/P hip hemiarthroplasty Z96.649 Closed fracture of left hip ([facility]) S72.002A Pain Rating: Pt. Denies pain. Cognitive Treatment Treatment time: ULTRA SOUND TECHNICIAN Individual Minutes Time In: 1315 Time Out: 1345 Minutes: 30 Subjective: [x] Alert [x] Cooperative [] Confused [] Agitated [] Lethargic Objective/Assessment: Attention: Pt. Sustained attention to trivia activity in common area during part of session today. Pt. Returned back to room following conclusion of game, TV muted/door shut to reduce external distractions. Pt. Occasionally responding to stimuli off-topic and required occasional redirection to structured tasks. Recall: Short-term recall of 3 pictured units, 8-minute delay: 2/3 increased to 3/3 with mod verbal/visual cues. Problem Solving/Reasoning: Inconsistencies in sentences: 4/10 increased to 10/10 with mod-max verbal/visual cues and repetition of stimuli. Other: Pt. In WC with chair alarm in use. Call light left within reach. Plan: [x] Continue ST services [] Discharge from ST: Discharge recommendations: [x] Further therapy recommended at discharge. [] No therapy recommended at discharge. Treatment completed by: Lenore Vivas M.S. [facility]-ULTRA SOUND TECHNICIAN * Juan Ramon Lucero MD - 03/15/2025 1:12 PM EDT Physical Medicine & Rehabilitation Progress Note Subjective: Patient is an 84-year-old male with left hip fracture s/p hemiarthroplasty. No acute events overnight. Patient seen and examined resting in his room. In good mood today. Has no complaints at this time. ROS: Denies fevers, chills, sweats. No chest pain, palpitations, lightheadedness. Denies coughing, wheezing or shortness of breath. Denies abdominal pain, nausea, diarrhea or constipation. No new areas of joint pain. Denies new areas of numbness or weakness. Denies new anxiety or depression issues. No new skin problems. Rehabilitation: PT: Bed mobility Rolling to Left: 2 Person assistance, Substantial/Maximal assistance Rolling to Right: Partial/Moderate assistance (Pt directable w/verbal & tactile cueing. Pillow placed between LEs.) Supine to Sit: Substantial/Maximal assistance (Less painful verbalization (mild groaning only), andresponding to cues to scoot toward EOB. To Pt's R.) Sit to Supine: 2 Person assistance, Substantial/Maximal assistance (BLEs and assist to reposition trunk; Pt started screaming w/movement. Entering on L side of bed.) Scootin Person assistance, Minimal assistance Bed Mobility Comments: Patient up in WC prior to and post session. Chair alarm in place. Transfers Sit to Stand: Substantial/Maximal assistance Stand to Sit: Substantial/Maximal assistance Bed to Chair: Substantial/Maximal assistance (Cues for safety w/moderate response. Flexed at knees & hips, Parkinsonian gait.) Stand Pivot Transfers: Substantial/Maximal assistance, 2 Person Assistance Comment: RW. Ambulation WB Status: WBAT L LE Ambulation Surface: Level tile Device: Rolling Walker Other Apparatus: Wheelchair follow Assistance: Substantial/Maximal assistance Quality of Gait: Small steps, flexed posture, NBOS. G awareness of obstacles; manuevers appropriately. Parkisonian gait w/frequent stops & starts; declined all offers of seated rest until end. Gait Deviations: Decreased step length, Decreased step height, Decreased head and trunk rotation Distance: 100 ft Comments: Patient does well with Big and Loud cues for gait training. More Ambulation?: No Ambulation 2 Surface - 2: uneven, outdoors, ramp Device 2: Rolling Walker Other Apparatus 2: Wheelchair follow Assistance 2: Substantial/Maximal assistance Quality of Gait 2: NBOS, step-to & Parkinsonian gait. Fatigued quickly. Gait Deviations: Decreased step length, Decreased step height, Slow Wendy, Decreased head and trunk rotation Distance: 80' Comments: Denies need to rest or stop/sit. OT: Feeding: Setup Grooming: Supervision Grooming Skilled Clinical Factors: brush teeth, wash face seated in w/c up to sink. UE Bathing: Supervision UE Bathing Skilled Clinical Factors: seated in w/c up to sink. LE Bathing: Dependent/Total LE Bathing Skilled Clinical Factors: TA x 2 to stand with RW and wash ronit, bottom. seated- pt ableto wash thighs with set up, TA distally. ed pt how far he is allowed to bend to wash LE. pt had difficulty understanding and following this so OT had him hand her the washcloth to provide assist to wash distal LE to keep L hip precautions. UE Dressing: Minimal assistance UE Dressing Skilled Clinical Factors: t shirt. assist needed to pull down shirt in back- did not respond to cues. LE Dressing: Dependent/Total LE Dressing Skilled Clinical Factors: TA don pants over feet, TA x 2 to don pullups, pants over hips stand with lynette stedy. Putting On/Taking Off Footwear: Dependent/Total Putting On/Taking Off Footwear Skilled Clinical Factors: TA don teds and slipper socks. Toileting: Dependent/Total Toileting Skilled Clinical Factors: TA x 2 stand with RW. Toilet Transfers Equipment Used: Grab bars Toilet Transfer: 2 Person assistance, Dependent/Total Toilet Transfers Comments: max x 2 stand pivot transfer with RW w/c to toilet with grab bars, TA x 2 stand for toileting with RW, then TA x 2 stand with lynette stedy for transfer off toilet to w/c, then BSC obtained for over the toilet, due to pt max fatigued with mobility and higher surface will be helpful. plan communicated to [facility] lynette mauricio Willian marin 2. SPEECH: Cognitive Treatment Treatment time: ULTRA SOUND TECHNICIAN Individual Minutes Time In: 902 Time Out: 929 Minutes: 27 Short session d/t extended OT session Subjective: [x] Alert [x] Cooperative [] Confused [] Agitated [] Lethargic Objective/Assessment: Attention: Pt. Easily distracted. Environment modified to reduce external distractions (door shut, television muted). Pt. Required frequent repetition of stimuli/task instructions t/o session. Pt. Occasionally responding to stimuli off-topic. Orientation: Pt. Oriented to reason, name of hospital, month, year, and CLAUDIO independently. Pt. Disoriented to time of day and type of place. Recall: Pt. Recalled 1/3 units immediately, 0/3 following short delay. Problem Solving/Reasoning: Pt. Provided 2 meanings of given word c 90%. Pt. Named 10 items in category (fruits) c 80%, 90% c cues. MAX cues to stay on topic. Other: Pt. Requested to be taken to PT gym to watch other patients until his PT appointment at [address]. ST left pt. In gym c chair alarm on. Plan: [x] Continue ST services [] Discharge from ST: Discharge recommendations: [x] Further therapy recommended at discharge. [] No therapy recommended at discharge. Objective: BP 128/61 Pulse 71 Temp 98.6 F (37 C) (Oral) Resp 18 Ht 1.854 m (6' 0.99 ) Wt 97 kg (213 lb 13.5 oz) SpO2 99% BMI 28.22 kg/m GEN: well developed, well nourished, NAD HEENT: NCAT, EOMI, mucous membranes pink and moist CV: RRR, no murmurs, rubs or gallops PULM: Respirations WNL and unlabored ABD: soft, ND, NT NEURO: Alert, oriented to person, location, year. Sensation intact to light touch in the bilateral lower limbs. Cranial nerve exam normal and symmetrical MSK: Strength at least antigravity and symmetrical bilateral upper extremities, 5/5 with bilateral ankle dorsiflexion and plantarflexion. SKIN: warm dry and intact with good turgor PSYCH: appropriately interactive. Affect WNL. Diagnostics: CBC: Recent Labs 03/15/25 0733 WBC 7.3 RBC 3.87* HGB 11.3* HCT 36.6* MCV 94.6 RDW 14.0 PLT 206 BMP: Recent Labs 03/13/25 1353 03/15/25 0733 NA 133* 140 K 4.7 4.3 CL 102 103 CO2 19* 25 BUN 28* 33* CREATININE 1.8* 2.1* GLUCOSE 124* 111* BNP: No results for input(s): BNP in the last 72 hours. PT/INR: No results for input(s): PROTIME , INR in the last 72 hours. APTT: No results for input(s): APTT in the last 72 hours. CARDIAC ENZYMES: No results for input(s): CKMB , CKMBINDEX , TROPONINT in the last 72 hours. Invalid input(s): CKTOTAL;3 troponins FASTING LIPID PANEL: Lab Results Component Value Date CHOL 135 02/25/2025 HDL 53 02/25/2025 TRIG 57 02/25/2025 LIVER PROFILE: No results for input(s): AST , ALT , BILIDIR , BILITOT , ALKPHOS in the last 72 hours. Invalid input(s): ALB Current Medications: Current Facility-Administered Medications: torsemide (DEMADEX) tablet 10 mg, 10 mg, Oral, Every Other Day amLODIPine (NORVASC) tablet 5 mg, 5 mg, Oral, Daily sodium bicarbonate tablet 650 mg, 650 mg, Oral, BID oxyCODONE HCl (OXY-IR) immediate release tablet 10 mg, 10 mg, Oral, 2 times per day AND oxyCODONE HCl (OXY-IR) immediate release tablet 10 mg, 10 mg, Oral, Q4H PRN aspirin EC tablet 81 mg, 81 mg, Oral, Daily methocarbamol (ROBAXIN) tablet 500 mg, 500 mg, Oral, 4x Daily miconazole (MICOTIN) 2 % powder, , Topical, BID heparin (porcine) injection 5,000 Units, 5,000 Units, SubCUTAneous, 3 times per day polyethylene glycol (GLYCOLAX) packet 17 g, 17 g, Oral, Daily senna (SENOKOT) tablet 17.2 mg, 2 tablet, Oral, Daily PRN bisacodyl (DULCOLAX) suppository 10 mg, 10 mg, Rectal, Daily PRN acetaminophen (TYLENOL) tablet 650 mg, 650 mg, Oral, Q6H PRN OR [DISCONTINUED] acetaminophen (TYLENOL) suppository 650 mg, 650 mg, Rectal, Q6H PRN carbidopa-levodopa (SINEMET) 25-100 MG per tablet 1 tablet, 1 tablet, Oral, TID levothyroxine (SYNTHROID) tablet 100 mcg, 100 mcg, Oral, Daily liothyronine (CYTOMEL) tablet 5 mcg, 5 mcg, Oral, Daily melatonin tablet 3 mg, 3 mg, Oral, Nightly PRN memantine (NAMENDA) tablet 10 mg, 10 mg, Oral, BID ondansetron (ZOFRAN-ODT) disintegrating tablet 4 mg, 4 mg, Oral, Q8H PRN OR [DISCONTINUED] ondansetron (ZOFRAN) injection 4 mg, 4 mg, IntraVENous, Q6H PRN sertraline (ZOLOFT) tablet 25 mg, 25 mg, Oral, Daily Reviewed notes from internal medicine, OT, ST. Impression/Plan: Impaired ADLs, gait, and mobility due to: Left femoral neck fracture secondary to fall s/p left hip hemiarthroplasty: surgery 02/[address] Downing. PT/OT for gait, mobility, strengthening, endurance, ADLs, and self care - 900 minute plan. Pain control with PRN Tylenol, PRN Oxycodone - scheduled doses BID before therapies on 03/09. Okay to remove roosevelt on 03/11 if incision looks okay, per Dr. Downing. Muscle spasms: Robaxin 500 mg 4 times daily started 03/05. Improved. Non-anion anion gap acidosis: Internal medicine added sodium bicarb. Continue to monitor periodic labs. Hyponatremia: Sodium 133 on 03/13. Continue to monitor Parkinson's Disease: on sinemet Dementia: on Namenda. Questionable change in neurological status: Drowsiness with slurred speech on 03/13, likely related to opioid pain medication. Patient was sleepy but with repeated prompting patient was able to participate in neurological exam; CN exam normal and symmetrical, motor testing symmetrical without focal deficit, able to answer orientation questions at baseline, exhibiting fluent speech. Will continue to monitor. Venous stasis dermatitis: Complains of pain with compression stockings, no signs or symptoms of infection/cellulitis. Continue to monitor. Essential hypertension: Resumed on home amlodipine dose per internal medicine. Blood pressure elevated, amlodipine increased to 5 g by internal medicine 03/14. Hyperlipidemia: lipid panel reviewed by Cardiology in acute care, monitoring off of cholesterol medications for now. Coronary artery disease: CABG in 2010. On Aspirin CHF: Torsemide held in setting of hypokalemia, not continued at discharge from acute care - nephrology discontinued 03/07 after restarting it. Compensated. Pulmonary fibrosis ANIYA on CKD stage IIIb: Baseline Cr ~2.1. Creatinine 1.8 on 03/10. Nephrology following - discontinuedtorsemide. Renal function stable. Continue to monitor with periodic labs. Hypothyroidism: on synthroid, on liothyronine. TSH 1.91 02/25. Depression: on Zoloft Possible pancreatic cysts: Identified on chest CT, consider outpatient evaluation for MRCP on nonemergent basis. Bowel Management: Miralax daily, senokot prn, dulcolax prn. DVT Prophylaxis: SCD's while in bed, RIDDHI's during the day, and ASA 81 mg BID per Ortho protocol Internal Medicine for medical management Follow up: PCP 1-2 weeks, Orthopedic Surgery - Dr. Downing Discharge disposition: Plan for discharge to [facility], pending authorization. * Saul Crouch MD - 03/14/2025 1:55 PM EDT NEPHROLOGY PROGRESS NOTE Patient : Leanna Nguyễn; 84 y.o. Location: 2619/2619-01 Attending: Juan Ramon Lucero MD Admit Date: 02/28/2025 Hospital Day: 14 Reason for Consult: ANIYA on CKD Chief Complaint: Fall History Obtained From: family member , electronic medical record Subjective Patient seen and examined, no new complains Sitting in recliner, sleeping. Labs 03/13/2025 scr stable 1.8 mg/dl BP stable History of Present Illness: This is a 84 y.o. male Patient with past medical history of atherosclerotic coronary artery diseasestatus post CABG, history of hyperlipidemia, essential hypertension, hypothyroidism, Parkinson's disease dementia with baseline disorientation former smoker, history of pulmonary fibrosis mild bilateral cardiac carotid artery disease, CKD stage III. Patient presented to [facility] on 02/25/2025 with complaints of left hip pain after he recently sustained a fall, patient denies dizziness nausea vomiting chest pain X-ray showed displaced femoral neck fracture of left hip, patient underwent left hip hemiarthroplasty on 02/25/2025 Patient serum creatinine on admission 1 on 02/25/2025 noted with 2.8 mg/dL and therefore nephrology was consulted, during the hospital stay kidney function improved to 1.8 mg/dL on 02/27/2025, patient was discharged to acute rehab. Nephrology was consulted to follow for ANIYA on CKD. Patient seen and examined at acute rehab no acute events patient is tired and exhausted after the physical therapy laying comfortably not in acute distress Past Medical History: History reviewed. No pertinent past medical history. Past Surgical History: Procedure Laterality Date HIP SURGERY Left 02/25/2025 HIP HEMIARTHROPLASTY performed by Ana Downing MD at [facility] Current Medications: sodium bicarbonate tablet 650 mg, BID amLODIPine (NORVASC) tablet 2.5 mg, Daily oxyCODONE HCl (OXY-IR) immediate release tablet 10 mg, 2 times per day And oxyCODONE HCl (OXY-IR) immediate release tablet 10 mg, Q4H PRN aspirin EC tablet 81 mg, Daily methocarbamol (ROBAXIN) tablet 500 mg, 4x Daily miconazole (MICOTIN) 2 % powder, BID heparin (porcine) injection 5,000 Units, 3 times per day polyethylene glycol (GLYCOLAX) packet 17 g, Daily senna (SENOKOT) tablet 17.2 mg, Daily PRN bisacodyl (DULCOLAX) suppository 10 mg, Daily PRN acetaminophen (TYLENOL) tablet 650 mg, Q6H PRN carbidopa-levodopa (SINEMET) 25-100 MG per tablet 1 tablet, TID levothyroxine (SYNTHROID) tablet 100 mcg, Daily liothyronine (CYTOMEL) tablet 5 mcg, Daily melatonin tablet 3 mg, Nightly PRN memantine (NAMENDA) tablet 10 mg, BID ondansetron (ZOFRAN-ODT) disintegrating tablet 4 mg, Q8H PRN sertraline (ZOLOFT) tablet 25 mg, Daily Allergies: Patient has no known allergies. Social History: Social History Socioeconomic History Marital status: Unknown Spouse name: Not on file Number of children: Not on file Years of education: Not on file Highest education level: Not on file Occupational History Not on file Tobacco Use Smoking status: Never Passive exposure: Never Smokeless tobacco: Never Substance and Sexual Activity Alcohol use: Not on file Drug use: Never Sexual activity: Not on file Other Topics Concern Not on file Social History Narrative Not on file Social Drivers of Health Financial Resource Strain: Not on file Food Insecurity: No Food Insecurity (02/28/2025) Hunger Vital Sign Worried About Running Out of Food in the Last Year: Never true Ran Out of Food in the Last Year: Never true Transportation Needs: No Transportation Needs (02/28/2025) PRAPARE - Transportation Lack of Transportation (Medical): No Lack of Transportation (Non-Medical): No Physical Activity: Not on file Stress: Not on file Social Connections: Not on file Intimate Partner Violence: Unknown (08/27/2023) Received from [facility] Safety & Environment Fear of Current or Ex-Partner: Not on file Emotionally Abused: Not on file Physically Abused: Not on file Sexually Abused: Not on file Physically or Sexually Abused: Not on file Housing Stability: Low Risk (02/28/2025) Housing Stability Vital Sign Unable to Pay for Housing in the Last Year: No Number of Times Moved in the Last Year: 0 Homeless in the Last Year: No Family History: No family history on file. Review of Systems: Patient not responding to verbal stimuli is sleeping Objective: CURRENT TEMPERATURE: Temp: 97.7 F (36.5 C) MAXIMUM TEMPERATURE OVER 24HRS: Temp (24hrs), Av.7 F (36.5 C), Min:97.7 F (36.5 C), Max:97.7 F (36.5 C) CURRENT RESPIRATORY RATE: Respirations: 18 CURRENT PULSE: Pulse: 60 CURRENT BLOOD PRESSURE: BP: (!) 152/65 24HR BLOOD PRESSURE RANGE: Systolic (24hrs), Av , Min:152 , Max:152 ; Diastolic (24hrs), Av, Min:65, Max:65 24HR INTAKE/OUTPUT: No intake or output data in the 24 hours ending 03/14/25 1355 No data found. Physical Exam: GENERAL APPEARANCE: Comfortable not in acute distress HEAD: normocephalic NOSE: No nasal discharge. CARDIAC: Normal S1 and S2. No S3, S4 or murmurs. Rhythm is regular. LUNGS: Clear to auscultation without rales, rhonchi, wheezing or diminished breath sounds. NECK: Neck supple, trachea midline GI-soft nontender nondistended abdomen MUSKULOSKELETAL: Adequately aligned spine. No joint erythema or tenderness. EXTREMITIES: No edema. Peripheral pulses intact. NEURO: Nonfocal Labs: CBC: No results for input(s): WBC , RBC , HGB , HCT , MCV , MCH , MCHC , RDW , PLT , MPV in the last 72 hours. BMP: Recent Labs 03/13/25 1353 NA 133* K 4.7 CL 102 CO2 19* BUN 28* CREATININE 1.8* GLUCOSE 124* CALCIUM 9.4 Phosphorus: No results for input(s): PHOS in the last 72 hours. Radiology: Reviewed as available. Assessment: Patient initially admitted with fall ,displaced femoral neck fracture of left hip, patient underwent left hip hemiarthroplasty on 02/25/2025 Acute kidney injury on CKD most likely secondary to prerenal azotemia serum creatinine peaked to 2.8 mg/dL on 02/25/2025 serum creatinine improved to 1.8 mg/dL most recent serum creatinine is 1.7 mg/dL, which is from 03/01/2020 Baseline serum creatinine is around 2.1 mg/dL noted in 2022 CKD stage IIIb with baseline creatinine of 2.1 mg/dL 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 History of essential hypertension Plan: Kidney function near baseline Continue current treatment, resume torsemide 10 mg Avoid NSAIDs Avoid nephrotoxic agents Strict I's and O's Daily weight BMP Thursday Thank you for the consultation. * Ruben Alba MD - 03/14/2025 1:26 PM EDT IN-PATIENT SERVICE [facility] Internal Medicine Progress note Date: 03/14/2025 Patient name: Leanna Nguyễn Date of admission: 02/28/2025 3:30 PM Account: [id number] Date of : 1940 PCP: Pipe Jeffers MD Room: [address] [place] [address] Code Status: Full Code Physician Requesting Consult: Juan Ramon Lucero MD Reason for Consult: medical management Chief Complaint: Medical management History Obtained From: Patient medical record nursing staff History of Present Illness: Patient, has past medical history multiple medical problem, which include coronary artery disease status post CABG, CHF, hypothyroidism, hypertension, hyperlipidemia, pulmonary fibrosis, chronic kidney disease, Parkinson disease, dementia, patient presented to [facility] after a fall, he had left hip pain, found to have acute subcapital left femoral neck fracture, patient underwent left hip hemiarthroplasty on 02/25 While in hospital, patient had worsening creatinine, was evaluated by table worker, treated with IVfluids, torsemide was kept on hold, patient, creatinine improved to his baseline, Patient required Shell's catheter placement which was later removed Transferred to [facility] rehab unit for further management Past Medical History: History reviewed. No pertinent past medical history. Past Surgical History: Past Surgical History: Procedure Laterality Date HIP SURGERY Left 02/25/2025 HIP HEMIARTHROPLASTY performed by nAa Downing MD at [facility] OR Medications Prior to Admission: Prior to Admission medications Medication Sig Start Date End Date Taking? Authorizing Provider amLODIPine (NORVASC) 2.5 MG tablet Take 1 tablet by mouth daily Ruth Howe MD aspirin 81 MG chewable tablet Take 1 tablet by mouth daily Ruth Howe MD carbidopa-levodopa (SINEMET) 10-100 MG per tablet Take 1 tablet by mouth 3 times daily Ruth Howe MD cephALEXin (KEFLEX) 500 MG capsule Take 1 capsule by mouth 2 times daily Ruth Howe MD folic acid (FOLVITE) 400 MCG tablet Take 1 tablet by mouth daily Ruth Howe MD levothyroxine (SYNTHROID) 100 MCG tablet Take 1 tablet by mouth Daily Ruth Howe MD liothyronine (CYTOMEL) 5 MCG tablet Take 1 tablet by mouth daily Ruth Howe MD memantine (NAMENDA) 10 MG tablet Take 1 tablet by mouth 2 times daily Ruth Howe MD Multiple Vitamins-Minerals (THERAPEUTIC MULTIVITAMIN-MINERALS) tablet Take 1 tablet by mouth daily Ruth Howe MD potassium chloride (KLOR-CON) 20 MEQ packet Take 10 mEq by mouth daily Ruth Howe MD sennosides-docusate sodium (SENOKOT-S) 8.6-50 MG tablet Take 1 tablet by mouth daily Ruth Howe MD sertraline (ZOLOFT) 25 MG tablet Take 1 tablet by mouth daily Ruth Howe MD tolterodine (DETROL) 1 MG tablet Take 1 tablet by mouth 2 times daily Ruth Howe MD torsemide (DEMADEX) 10 MG tablet Take 1 tablet by mouth daily Ruth Howe MD vitamin B-12 (CYANOCOBALAMIN) 500 MCG tablet Take 1 tablet by mouth daily Ruth Howe MD vitamin D 50 MCG (2000 UT) CAPS capsule Take 1 capsule by mouth daily Ruth Howe MD Allergies: Patient has no known allergies. Social History: Tobacco: reports that he has never smoked. He has never been exposed to tobacco smoke. He has neverused smokeless tobacco. Alcohol: has no history on file for alcohol use. Drug Use: reports no history of drug use. Family History: No family history on file. Review of Systems: Positive and Negative as described in HPI. CONSTITUTIONAL: negative for fevers, chills, sweats, fatigue, weight loss HEENT: negative for vision, hearing changes, runny nose, throat pain RESPIRATORY: negative for shortness of breath, cough, congestion, wheezing. CARDIOVASCULAR: negative for chest pain, palpitations. GASTROINTESTINAL: negative for nausea, vomiting, diarrhea, constipation, change in bowel habits, abdominal pain GENITOURINARY: negative for difficulty of urination, burning with urination, frequency INTEGUMENT: negative for rash, skin lesions, easy bruising HEMATOLOGIC/LYMPHATIC: negative for swelling/edema ALLERGIC/IMMUNOLOGIC: negative for urticaria , itching ENDOCRINE: negative increase in drinking, increase in urination, hot or cold intolerance MUSCULOSKELETAL: Pain, left hip NEUROLOGICAL: negative for headaches, dizziness, lightheadedness, numbness, pain, tingling extremities BEHAVIOR/PSYCH: Physical Exam: BP (!) 152/65 Pulse 60 Temp 97.7 F (36.5 C) (Oral) Resp 18 Ht 1.854 m (6' 0.99 ) Wt 97 kg(213 lb 13.5 oz) SpO2 99% BMI 28.22 kg/m Temp (24hrs), Av.7 F (36.5 C), Min:97.7 F (36.5 C), Max:97.7 F (36.5 C) No results for input(s): POCGLU in the last 72 hours. No intake or output data in the 24 hours ending 03/14/25 1326 General Appearance: alert, well appearing, and in no acute distress, wheelchair-bound Mental status: oriented to person, place, and time with normal affect Head: normocephalic, atraumatic. Eye: no icterus, redness, pupils equal and reactive, extraocular eye movements intact, conjunctiva clear Ear: normal external ear, no discharge, hearing intact Nose: no drainage noted Mouth: mucous membranes moist Neck: supple, no carotid bruits, thyroid not palpable Lungs: Bilateral equal air entry, clear to ausculation, no wheezing, rales or rhonchi, normal effort Cardiovascular: normal rate, regular rhythm, no murmur, gallop, rub. Abdomen: Soft, nontender, nondistended, normal bowel sounds, no hepatomegaly or splenomegaly Neurologic: There are no new focal motor or sensory deficits, normal muscle tone and bulk, no abnormal sensation, normal speech, cranial nerves II through XII grossly intact Skin: No gross lesions, rashes, bruising or bleeding on exposed skin area Extremities: Postsurgical changes present left hip, mild edema in left leg Psych: Investigations: Laboratory Testing: Recent Results (from the past 24 hours) Basic Metabolic Panel Collection Time: 03/13/25 1:53 PM Result Value Ref Range Sodium 133 (L) 136 - 145 mmol/L Potassium 4.7 3.7 - 5.3 mmol/L Chloride 102 98 - 107 mmol/L CO2 19 (L) 20 - 31 mmol/L Anion Gap 12 9 - 16 mmol/L Glucose 124 (H) 74 - 99 mg/dL BUN 28 (H) 8 - 23 mg/dL Creatinine 1.8 (H) 0.7 - 1.2 mg/dL Est, Glom Filt Rate 36 (L) >60 mL/min/1.73m2 Calcium 9.4 8.6 - 10.4 mg/dL Consultations: IP CONSULT TO DIETITIAN IP CONSULT TO SOCIAL WORK IP CONSULT TO INTERNAL MEDICINE IP CONSULT TO NEPHROLOGY Assessment : Primary Problem Hip fracture, left, sequela Active Hospital Problems Diagnosis Date Noted S/P hip hemiarthroplasty [Z96.649] 03/01/2025 Closed fracture of left hip (HCC) [S72.002A] 03/01/2025 Hip fracture, left, sequela [S72.002S] 02/28/2025 Plan: Left hip fracture status post left hip hemiarthroplasty, on 02/25 Coronary artery disease status post CABG, on aspirin, not on statin, patient could not tell me whether he is allergic to statin or not, review of previous office visit notes, Lipitor is not mentionedin his home medication list, will discuss with close family, regarding previous documented statin allergies, patient, recently evaluated by loading unit operator, last LDL was 71 CHF, compensated Parkinson disease, follows closely with neurology as outpatient Dementia on Namenda Hypothyroidism on Synthroid and liothyronine , TSH tested recently is okay Chronic kidney disease, creatinine inproved to 1.8 , diuretics kept on hold, patient evaluated by table worker starting patient on heparin 5000 every 8 for DVT prophylaxis Underwent CT of chest, 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 Non-anion gap acidosis\\\\\\\ will add sodium bicarb. No chest pain shortness of breath 03/14 Patient seen and examined, doing well. Blood pressure continues to be slightly elevated, increase norvasc to 5mg qd. Continue bicarb tablets, assess if needs ot be continued based on BMP tomorrow. Ruben Alba MD 03/14/2025 1:26 PM Copy sent to Pipe Doe MD Please note that this chart was generated using voice recognition [employer] dictation software. Although every effort was made to ensure the accuracy of this automated physical education professor, some errors in physical education professor may have occurred. * Juan Ramon Lucero MD - 03/14/2025 9:51 AM EDT Physical Medicine & Rehabilitation Progress Note Subjective: Patient is an 84-year-old male with left hip fracture s/p hemiarthroplasty. No acute events overnight. Patient seen and examined resting in his room. Reports he is doing okay.Pain seems to be improved with scheduling pain medications. Did okay with therapy today. Non anion gap acidosis - IM added sodium bicarb. ROS: Denies fevers, chills, sweats. No chest pain, palpitations, lightheadedness. Denies coughing, wheezing or shortness of breath. Denies abdominal pain, nausea, diarrhea or constipation. No new areas of joint pain. Denies new areas of numbness or weakness. Denies new anxiety or depression issues. No new skin problems. Rehabilitation: PT: Bed mobility Rolling to Left: 2 Person assistance, Substantial/Maximal assistance Rolling to Right: Partial/Moderate assistance (Pt directable w/verbal & tactile cueing. Pillow placed between LEs.) Supine to Sit: Substantial/Maximal assistance (Less painful verbalization (mild groaning only), andresponding to cues to scoot toward EOB. To Pt's R.) Sit to Supine: 2 Person assistance, Substantial/Maximal assistance (BLEs and assist to reposition trunk; Pt started screaming w/movement. Entering on L side of bed.) Scootin Person assistance, Minimal assistance Bed Mobility Comments: Patient up in WC prior to and post session. Chair alarm in place. Transfers Sit to Stand: 2 Person Assistance, Substantial/Maximal assistance (Max x2 from w/c. G response to cues for hand position. Mod x1 from elevated bed.) Stand to Sit: 2 Person Assistance, Partial/Moderate assistance (Continuous cues to keep moving w/frequent stops/starts.) Bed to Chair: Substantial/Maximal assistance (Cues for safety w/moderate response. Flexed at knees & hips, Parkinsonian gait.) Stand Pivot Transfers: Substantial/Maximal assistance (Cues for safety w/moderate response. Flexed at knees & hips, Parkinsonian gait. W/C to recliner.) Comment: RW. Ambulation WB Status: WBAT L LE Ambulation Surface: Level tile Device: Rolling Walker Other Apparatus: Wheelchair follow Assistance: Substantial/Maximal assistance Quality of Gait: Small steps, flexed posture, NBOS. G awareness of obstacles; manuevers appropriately. Parkisonian gait w/frequent stops & starts; declined all offers of seated rest until end. Gait Deviations: Decreased step length, Decreased step height, Decreased head and trunk rotation Distance: 180 ft Comments: Pt states he has less pain while standing/walking than in bed. [id number] providing w/c follow. More Ambulation?: No Ambulation 2 Surface - 2: uneven, outdoors, ramp Device 2: Rolling Walker Other Apparatus 2: Wheelchair follow Assistance 2: Substantial/Maximal assistance Quality of Gait 2: NBOS, step-to & Parkinsonian gait. Fatigued quickly. Gait Deviations: Decreased step length, Decreased step height, Slow Wendy, Decreased head and trunk rotation Distance: 80' Comments: Denies need to rest or stop/sit. OT: Feeding: Setup Grooming: Supervision Grooming Skilled Clinical Factors: brush teeth, wash face seated in w/c up to sink. UE Bathing: Supervision UE Bathing Skilled Clinical Factors: seated in w/c up to sink. LE Bathing: Dependent/Total LE Bathing Skilled Clinical Factors: TA x 2 to stand with RW and wash ronit, bottom. seated- pt ableto wash thighs with set up, TA distally. ed pt how far he is allowed to bend to wash LE. pt had difficulty understanding and following this so OT had him hand her the washcloth to provide assist to wash distal LE to keep L hip precautions. UE Dressing: Minimal assistance UE Dressing Skilled Clinical Factors: t shirt. assist needed to pull down shirt in back- did not respond to cues. LE Dressing: Dependent/Total LE Dressing Skilled Clinical Factors: TA don pants over feet, TA x 2 to don pullups, pants over hips stand with lynette mauricio. Putting On/Taking Off Footwear: Dependent/Total Putting On/Taking Off Footwear Skilled Clinical Factors: TA don teds and slipper socks. Toileting: Dependent/Total Toileting Skilled Clinical Factors: TA x 2 stand with RW. Toilet Transfers Equipment Used: Grab bars Toilet Transfer: 2 Person assistance, Dependent/Total Toilet Transfers Comments: max x 2 stand pivot transfer with RW w/c to toilet with grab bars, TA x 2 stand for toileting with RW, then TA x 2 stand with lynette mauricio for transfer off toilet to w/c, then BSC obtained for over the toilet, due to pt max fatigued with mobility and higher surface will be helpful. plan communicated to [facility] lynette Dorsey x 2. SPEECH: Cognitive Treatment Treatment time: ULTRA SOUND TECHNICIAN Individual Minutes Time In: 902 Time Out: 929 Minutes: 27 Short session d/t extended OT session Subjective: [x] Alert [x] Cooperative [] Confused [] Agitated [] Lethargic Objective/Assessment: Attention: Pt. Easily distracted. Environment modified to reduce external distractions (door shut, television muted). Pt. Required frequent repetition of stimuli/task instructions t/o session. Pt. Occasionally responding to stimuli off-topic. Orientation: Pt. Oriented to reason, name of hospital, month, year, and CLAUDIO independently. Pt. Disoriented to time of day and type of place. Recall: Pt. Recalled 1/3 units immediately, 0/3 following short delay. Problem Solving/Reasoning: Pt. Provided 2 meanings of given word c 90%. Pt. Named 10 items in category (fruits) c 80%, 90% c cues. MAX cues to stay on topic. Other: Pt. Requested to be taken to PT gym to watch other patients until his PT appointment at [address]. ST left pt. In gym c chair alarm on. Plan: [x] Continue ST services [] Discharge from ST: Discharge recommendations: [x] Further therapy recommended at discharge. [] No therapy recommended at discharge. Objective: BP (!) 152/65 Pulse 60 Temp 97.7 F (36.5 C) (Oral) Resp 18 Ht 1.854 m (6' 0.99 ) Wt 97 kg(213 lb 13.5 oz) SpO2 99% BMI 28.22 kg/m GEN: well developed, well nourished, NAD HEENT: NCAT, EOMI, mucous membranes pink and moist CV: RRR, no murmurs, rubs or gallops PULM: Respirations WNL and unlabored ABD: soft, ND, NT NEURO: Alert, oriented to person, location, year. Sensation intact to light touch in the bilateral lower limbs. Cranial nerve exam normal and symmetrical MSK: Strength at least antigravity and symmetrical bilateral upper extremities, 5/5 with bilateral ankle dorsiflexion and plantarflexion. SKIN: warm dry and intact with good turgor PSYCH: appropriately interactive. Affect WNL. Diagnostics: CBC: No results for input(s): WBC , RBC , HGB , HCT , MCV , RDW , PLT in the last 72 hours. BMP: Recent Labs 03/13/25 1353 NA 133* K 4.7 CL 102 CO2 19* BUN 28* CREATININE 1.8* GLUCOSE 124* BNP: No results for input(s): BNP in the last 72 hours. PT/INR: No results for input(s): PROTIME , INR in the last 72 hours. APTT: No results for input(s): APTT in the last 72 hours. CARDIAC ENZYMES: No results for input(s): CKMB , CKMBINDEX , TROPONINT in the last 72 hours. Invalid input(s): CKTOTAL;3 troponins FASTING LIPID PANEL: Lab Results Component Value Date CHOL 135 02/25/2025 HDL 53 02/25/2025 TRIG 57 02/25/2025 LIVER PROFILE: No results for input(s): AST , ALT , BILIDIR , BILITOT , ALKPHOS in the last 72 hours. Invalid input(s): ALB Current Medications: Current Facility-Administered Medications: sodium bicarbonate tablet 650 mg, 650 mg, Oral, BID amLODIPine (NORVASC) tablet 2.5 mg, 2.5 mg, Oral, Daily oxyCODONE HCl (OXY-IR) immediate release tablet 10 mg, 10 mg, Oral, 2 times per day AND oxyCODONE HCl (OXY-IR) immediate release tablet 10 mg, 10 mg, Oral, Q4H PRN aspirin EC tablet 81 mg, 81 mg, Oral, Daily methocarbamol (ROBAXIN) tablet 500 mg, 500 mg, Oral, 4x Daily miconazole (MICOTIN) 2 % powder, , Topical, BID heparin (porcine) injection 5,000 Units, 5,000 Units, SubCUTAneous, 3 times per day polyethylene glycol (GLYCOLAX) packet 17 g, 17 g, Oral, Daily senna (SENOKOT) tablet 17.2 mg, 2 tablet, Oral, Daily PRN bisacodyl (DULCOLAX) suppository 10 mg, 10 mg, Rectal, Daily PRN acetaminophen (TYLENOL) tablet 650 mg, 650 mg, Oral, Q6H PRN OR [DISCONTINUED] acetaminophen (TYLENOL) suppository 650 mg, 650 mg, Rectal, Q6H PRN carbidopa-levodopa (SINEMET) 25-100 MG per tablet 1 tablet, 1 tablet, Oral, TID levothyroxine (SYNTHROID) tablet 100 mcg, 100 mcg, Oral, Daily liothyronine (CYTOMEL) tablet 5 mcg, 5 mcg, Oral, Daily melatonin tablet 3 mg, 3 mg, Oral, Nightly PRN memantine (NAMENDA) tablet 10 mg, 10 mg, Oral, BID ondansetron (ZOFRAN-ODT) disintegrating tablet 4 mg, 4 mg, Oral, Q8H PRN OR [DISCONTINUED] ondansetron (ZOFRAN) injection 4 mg, 4 mg, IntraVENous, Q6H PRN sertraline (ZOLOFT) tablet 25 mg, 25 mg, Oral, Daily Reviewed notes from internal medicine, OT, ST. Impression/Plan: Impaired ADLs, gait, and mobility due to: Left femoral neck fracture secondary to fall s/p left hip hemiarthroplasty: surgery 02/[address] Downing. PT/OT for gait, mobility, strengthening, endurance, ADLs, and self care - 900 minute plan. Pain control with PRN Tylenol, PRN Oxycodone - scheduled doses BID before therapies on 03/09. Okay to remove roosevelt on 03/11 if incision looks okay, per Dr. Downing. Muscle spasms: Robaxin 500 mg 4 times daily started 03/05. Non-anion anion gap acidosis: Internal medicine added sodium bicarb. Continue to monitor periodic labs. Hyponatremia: Sodium 133 on 03/13. Parkinson's Disease: on sinemet Dementia: on Namenda. Questionable change in neurological status: Drowsiness with slurred speech on 03/13, likely related to opioid pain medication. Patient was sleepy but with repeated prompting patient was able to participate in neurological exam; CN exam normal and symmetrical, motor testing symmetrical without focal deficit, able to answer orientation questions at baseline, exhibiting fluent speech. Will continue to monitor. Venous stasis dermatitis: Complains of pain with compression stockings, no signs or symptoms of infection/cellulitis. Continue to monitor. Essential hypertension: Resumed on home amlodipine dose per internal medicine. Hyperlipidemia: lipid panel reviewed by Cardiology in acute care, monitoring off of cholesterol medications for now. Coronary artery disease: CABG in 2010. On Aspirin CHF: Torsemide held in setting of hypokalemia, not continued at discharge from acute care - nephrology discontinued 03/07 after restarting it. Compensated. Pulmonary fibrosis ANIYA on CKD stage IIIb: Baseline Cr ~2.1. Creatinine 1.8 on 03/10. Nephrology following - discontinuedtorsemide. Renal function stable. Continue to monitor with periodic labs. Hypothyroidism: on synthroid, on liothyronine. TSH 1.91 02/25. Depression: on Zoloft Possible pancreatic cysts: Identified on chest CT, consider outpatient evaluation for MRCP on nonemergent basis. Bowel Management: Miralax daily, senokot prn, dulcolax prn. DVT Prophylaxis: SCD's while in bed, RIDDHI's during the day, and ASA 81 mg BID per Ortho protocol Internal Medicine for medical management Follow up: PCP 1-2 weeks, Orthopedic Surgery - Dr. Downing * Roxanne Edward MD - 03/13/2025 4:52 PM EDT IN-PATIENT SERVICE [facility] Internal Medicine Progress note Date: 03/13/2025 Patient name: Leanna Nguyễn Date of admission: 02/28/2025 3:30 PM Account: [id number] Date of : 1940 PCP: Pipe Jeffers MD Room: 2619/2619-01 Code Status: Full Code Physician Requesting Consult: Juan Ramon Lucero MD Reason for Consult: medical management Chief Complaint: Medical management History Obtained From: Patient medical record nursing staff History of Present Illness: Patient, has past medical history multiple medical problem, which include coronary artery disease status post CABG, CHF, hypothyroidism, hypertension, hyperlipidemia, pulmonary fibrosis, chronic kidney disease, Parkinson disease, dementia, patient presented to [facility] after a fall, he had left hip pain, found to have acute subcapital left femoral neck fracture, patient underwent left hip hemiarthroplasty on 02/25 While in hospital, patient had worsening creatinine, was evaluated by table worker, treated with IVfluids, torsemide was kept on hold, patient, creatinine improved to his baseline, Patient required Shell's catheter placement which was later removed Transferred to [facility] rehab unit for further management Past Medical History: History reviewed. No pertinent past medical history. Past Surgical History: Past Surgical History: Procedure Laterality Date HIP SURGERY Left 02/25/2025 HIP HEMIARTHROPLASTY performed by Ana Downing MD at [facility] OR Medications Prior to Admission: Prior to Admission medications Medication Sig Start Date End Date Taking? Authorizing Provider amLODIPine (NORVASC) 2.5 MG tablet Take 1 tablet by mouth daily Ruth Howe MD aspirin 81 MG chewable tablet Take 1 tablet by mouth daily Ruth Howe MD carbidopa-levodopa (SINEMET) 10-100 MG per tablet Take 1 tablet by mouth 3 times daily Ruth Howe MD cephALEXin (KEFLEX) 500 MG capsule Take 1 capsule by mouth 2 times daily Ruth Howe MD folic acid (FOLVITE) 400 MCG tablet Take 1 tablet by mouth daily Ruth Howe MD levothyroxine (SYNTHROID) 100 MCG tablet Take 1 tablet by mouth Daily Ruth Howe MD liothyronine (CYTOMEL) 5 MCG tablet Take 1 tablet by mouth daily Ruth Howe MD memantine (NAMENDA) 10 MG tablet Take 1 tablet by mouth 2 times daily Ruth Howe MD Multiple Vitamins-Minerals (THERAPEUTIC MULTIVITAMIN-MINERALS) tablet Take 1 tablet by mouth daily Ruth Howe MD potassium chloride (KLOR-CON) 20 MEQ packet Take 10 mEq by mouth daily Ruth Howe MD sennosides-docusate sodium (SENOKOT-S) 8.6-50 MG tablet Take 1 tablet by mouth daily Ruth Howe MD sertraline (ZOLOFT) 25 MG tablet Take 1 tablet by mouth daily Ruth Howe MD tolterodine (DETROL) 1 MG tablet Take 1 tablet by mouth 2 times daily Ruth Howe MD torsemide (DEMADEX) 10 MG tablet Take 1 tablet by mouth daily Ruth Howe MD vitamin B-12 (CYANOCOBALAMIN) 500 MCG tablet Take 1 tablet by mouth daily Ruth Howe MD vitamin D 50 MCG (2000 UT) CAPS capsule Take 1 capsule by mouth daily Provider, MD Ruth Allergies: Patient has no known allergies. Social History: Tobacco: reports that he has never smoked. He has never been exposed to tobacco smoke. He has neverused smokeless tobacco. Alcohol: has no history on file for alcohol use. Drug Use: reports no history of drug use. Family History: No family history on file. Review of Systems: Positive and Negative as described in HPI. CONSTITUTIONAL: negative for fevers, chills, sweats, fatigue, weight loss HEENT: negative for vision, hearing changes, runny nose, throat pain RESPIRATORY: negative for shortness of breath, cough, congestion, wheezing. CARDIOVASCULAR: negative for chest pain, palpitations. GASTROINTESTINAL: negative for nausea, vomiting, diarrhea, constipation, change in bowel habits, abdominal pain GENITOURINARY: negative for difficulty of urination, burning with urination, frequency INTEGUMENT: negative for rash, skin lesions, easy bruising HEMATOLOGIC/LYMPHATIC: negative for swelling/edema ALLERGIC/IMMUNOLOGIC: negative for urticaria , itching ENDOCRINE: negative increase in drinking, increase in urination, hot or cold intolerance MUSCULOSKELETAL: Pain, left hip NEUROLOGICAL: negative for headaches, dizziness, lightheadedness, numbness, pain, tingling extremities BEHAVIOR/PSYCH: Physical Exam: BP (!) 146/71 Pulse 64 Temp 97.3 F (36.3 C) (Oral) Resp 16 Ht 1.854 m (6' 0.99 ) Wt 97 kg(213 lb 13.5 oz) SpO2 97% BMI 28.22 kg/m Temp (24hrs), Av.6 F (36.4 C), Min:97.3 F (36.3 C), Max:97.9 F (36.6 C) No results for input(s): POCGLU in the last 72 hours. No intake or output data in the 24 hours ending 03/13/25 1652 General Appearance: alert, well appearing, and in no acute distress, wheelchair-bound Mental status: oriented to person, place, and time with normal affect Head: normocephalic, atraumatic. Eye: no icterus, redness, pupils equal and reactive, extraocular eye movements intact, conjunctiva clear Ear: normal external ear, no discharge, hearing intact Nose: no drainage noted Mouth: mucous membranes moist Neck: supple, no carotid bruits, thyroid not palpable Lungs: Bilateral equal air entry, clear to ausculation, no wheezing, rales or rhonchi, normal effort Cardiovascular: normal rate, regular rhythm, no murmur, gallop, rub. Abdomen: Soft, nontender, nondistended, normal bowel sounds, no hepatomegaly or splenomegaly Neurologic: There are no new focal motor or sensory deficits, normal muscle tone and bulk, no abnormal sensation, normal speech, cranial nerves II through XII grossly intact Skin: No gross lesions, rashes, bruising or bleeding on exposed skin area Extremities: Postsurgical changes present left hip, mild edema in left leg Psych: Investigations: Laboratory Testing: Recent Results (from the past 24 hours) Basic Metabolic Panel Collection Time: 03/13/25 1:53 PM Result Value Ref Range Sodium 133 (L) 136 - 145 mmol/L Potassium 4.7 3.7 - 5.3 mmol/L Chloride 102 98 - 107 mmol/L CO2 19 (L) 20 - 31 mmol/L Anion Gap 12 9 - 16 mmol/L Glucose 124 (H) 74 - 99 mg/dL BUN 28 (H) 8 - 23 mg/dL Creatinine 1.8 (H) 0.7 - 1.2 mg/dL Est, Glom Filt Rate 36 (L) >60 mL/min/1.73m2 Calcium 9.4 8.6 - 10.4 mg/dL Consultations: IP CONSULT TO DIETITIAN IP CONSULT TO SOCIAL WORK IP CONSULT TO INTERNAL MEDICINE IP CONSULT TO NEPHROLOGY Assessment : Primary Problem Hip fracture, left, sequela Active Hospital Problems Diagnosis Date Noted S/P hip hemiarthroplasty [Z96.649] 03/01/2025 Closed fracture of left hip (HCC) [S72.002A] 03/01/2025 Hip fracture, left, sequela [S72.002S] 02/28/2025 Plan: Left hip fracture status post left hip hemiarthroplasty, on 02/25 Coronary artery disease status post CABG, on aspirin, not on statin, patient could not tell me whether he is allergic to statin or not, review of previous office visit notes, Lipitor is not mentionedin his home medication list, will discuss with close family, regarding previous documented statin allergies, patient, recently evaluated by loading unit operator, last LDL was 71 CHF, compensated Parkinson disease, follows closely with neurology as outpatient Dementia on Namenda Hypothyroidism on Synthroid and liothyronine , TSH tested recently is okay Chronic kidney disease, creatinine inproved to 1.8 , diuretics kept on hold, patient evaluated by table worker starting patient on heparin 5000 every 8 for DVT prophylaxis Underwent CT of chest, 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 Non-anion gap acidosis\\\\\\\ will add sodium bicarb. No chest pain shortness of breath Roxanne Edward MD 03/13/2025 4:52 PM Copy sent to Pipe Doe MD Please note that this chart was generated using voice recognition [employer] dictation software. Although every effort was made to ensure the accuracy of this automated physical education professor, some errors in physical education professor may have occurred. * Brianne Rich, SOFTWARE DEVELOPMENT ENGINEER - 03/13/2025 4:41 PM EDT Physical Therapy [facility] Acute Rehabilitation Physical Therapy Treatment Date: 03/13/25 Patient Name: Leanna Nguyễn Room: 2619/2619-01 Account: [id number] : 1940 (84 y.o.) Gender: male Additional Pertinent Hx: HISTORY OF PRESENT ILLNESS: This is an 84-year-old gentleman with history of atherosclerotic CAD s/p CABG, dyslipidemia, essential hypertension, hypothyroidism, Parkinson's disease, dementia with baseline disorientation, former smoker, pulmonary fibrosis, mild bilateral carotid artery disease, chronic kidney disease, chronic lower extremity edema, migraine headache and generalized osteoarthritis presented to the emergency room with complaints of left hip pain after he sustained a mechanical fall. Patient was sitting on the toilet, reached over and fell on the floor. He denies any loss of consciousness, dizziness or lightheadedness. Imaging shows displaced left femoral neck fracture, Dr Downing perform L Hip Hemiarthroplasty on 02/25/25. Pt allowed WBAT L LE for mobility. Response To Previous Treatment: Patient with no complaints from previous session. Family/Caregiver Present: No Referring Practitioner: Dr. Betancourt Referral Date : 02/28/25 Diagnosis: Left femoral neck fracture, S/P Left Hip hemiarthroplasty Follows Commands: Within Functional Limits Treatment Diagnosis: Difficulty walking Past Medical History: has no past medical history on file. Past Surgical History: has a past surgical history that includes hip surgery (Left, 02/25/2025). Restrictions Restrictions/Precautions Restrictions/Precautions: Bed Alarm, Weight Bearing, Fall Risk, Surgical Protocols (WBAT LLE, posterior hip precautions) Activity Level: Up as Tolerated, Up with Assist Required Braces or Orthoses?: No Implants Present? : Metal implants (L blanka arthroplasty) Lower Extremity Weight Bearing Restrictions Left Lower Extremity Weight Bearing: Weight Bearing As Tolerated Position Activity Restriction Hip Precautions: Posterior hip precautions, No hip flexion > 90 degrees, No sudden or extreme motions, No hip internal rotation, No hip external rotation, No ADduction Other Position/Activity Restrictions: Procedure: HIP HEMIARTHROPLASTY (Left: Hip) 02.25.[address] Downing-posterior precautions. Pt has history of parkinson's. Subjective Subjective Subjective: Patient agreeable to AM session but declined PM session. Pain Pre-Pain: 0 Post-Pain: 6 (caballero-valdes) Pain Descriptor: Sore;Aching Pain Interventions: Rest;Repositioning Bed Mobility Bed mobility Bed Mobility Comments: Patient up in WC prior to and post session. Chair alarm in place. Transfers Transfers Sit to Stand: 2 Person Assistance;Substantial/Maximal assistance (Max x2 from w/c. G response to cues for hand position. Mod x1 from elevated bed.) Stand to Sit: 2 Person Assistance;Partial/Moderate assistance (Continuous cues to keep moving w/frequent stops/starts.) Bed to Chair: Substantial/Maximal assistance (Cues for safety w/moderate response. Flexed at knees & hips, Parkinsonian gait.) Stand Pivot Transfers: Substantial/Maximal assistance (Cues for safety w/moderate response. Flexed at knees & hips, Parkinsonian gait. W/C to recliner.) Comment: RW. Mobility Ambulation WB Status: WBAT L LE Ambulation Surface: Level tile Device: Rolling Walker Assistance: Substantial/Maximal assistance Quality of Gait: Small steps, flexed posture, NBOS. G awareness of obstacles; manuevers appropriately. Parkisonian gait w/frequent stops & starts; declined all offers of seated rest until end. Gait Deviations: Decreased step length;Decreased step height;Decreased head and trunk rotation Distance: 180 ft Propulsion 1 Propulsion: Manual Level: Level Tile Method: RLE;LLE Level of Assistance: Minimal assistance Description/ Details: Patient continues to require safety cues during WC propulsion. Cognition barrier. Distance: 100 ft Stairs/Curb Stairs?: No Balance Balance Posture: Poor Sitting - Static: Poor (Posterior lean sitting EOB; requires Mod A initially for balance, but G return to cues to move hands to support and assists w/scooting hips to EOB to get feet on floor.) Standing - Static: Poor (RW; flexed posture.) Standing - Dynamic: Poor;- (RW; flexed posture.) PT Exercises PT Exercises A/AROM Exercises: Seated bilat. LE ex. 15 reps. AROM and Mason band used Functional Mobility Circuit Training: Functional transfers throughout sessions, RW. Exercise Equipment: Mozenda x 15 workload 6 ; seat 13 and arms 11, 800 steps Activity Tolerance Activity Tolerance Activity Tolerance: Treatment limited secondary to decreased cognition;Patient tolerated treatment well Assessment Performance Deficits/Impairments: Decreased functional mobility , Decreased ROM, Decreased strength, Decreased safe awareness, Decreased cognition, Decreased endurance, Decreased vision/visual deficit, Increased pain, Decreased posture History: Hx of Parkinsons, dementia and heart failure. Clinical Presentation: Largely polite. Discharge Recommendations: Home with assist PRN, Home with Home health PT Goals Patient Goals Patient Goals : To work on standing up straight, to go back to [facility] Short Term Goals Time Frame for Short Term Goals: 10 visits Short Term Goal 1: Pt to complete supine<>sit at min A with HOB flat, use of rail- NOT MET Short Term Goal 2: Pt to complete sit to stand transfers with min assist, stand pivot transfers using RW with min assist-NOT MET Short Term Goal 3: Pt to ambulate with RW for 25 feet min assist- NOT MET Short Term Goal 4: Pt to improve standing balance to F+/F to reduce fall risk- NOT MET Short Term Goal 5: Pt to improve left hip strength to 3+/5, and knee strength to 4/5 to facilitate increased independence with gait, transfers-NOT MET Additional Goals?: Yes Short Term Goal 6: Pt to demonstrate posterior hip precautions with mod cueing during transfers andbed mobility-NOT MET Short Term Goal 7: Pt to propel wheelchair for 50 feet using UEs and LEs as able with SBA-NOT MET Short Term Goal 8: Pt to participate in TUG test if able using RW-NOT MET Test Technician Goals Time Frame for Test Technician Goals : By d/c Test Technician Goal 1: Pt to complete bed mobility sup<>sit with SBA using rail prn- NOT MET Test Technician Goal 2: Pt to complete sit to stand, stand pivot and car transfers with RW SBA-NOT MET Test Technician Goal 3: Pt to ambulate with RW for 50 feet or > SBA with cues for safety/posture-NOT MET Test Technician Goal 4: Pt to picking supervisor object from floor using banquet houseperson and UE support on RW with SBA-NOT MET Test Technician Goal 5: Pt to improve balance and safety with ambulation as evidence by ability to complete TUG test in 30 seconds or less using RW-NOT MET Additional Goals?: Yes tong setter goal 6: Pt to complete LE supine and seated ther ex for strengthening with min assist using handout-NOT MET Plan of Care Physical Therapy Plan General Plan: (900 minutes per week of combined PT, OT, ST due to poor tolerance to activity 2* high levels of pain and cognitive deficits) Current Treatment Recommendations: Strengthening, ROM, Balance training, Functional mobility training, Transfer training, Gait training, Stair training, Neuromuscular re-education, Pain management, Home exercise program, Safety education & training, Patient/Caregiver education & training, Equipment evaluation, education, & procurement, Therapeutic activities, Wheelchair mobility training Safety Devices Type of Devices: Gait belt, Left in chair, Patient at risk for falls, All fall risk precautions in place, Chair alarm in place, Call light within reach PT Minutes 03/13/25 1000 03/13/25 1632 PT Individual Minutes Time In 1000 -- Time Out 1100 -- Minutes 60 -- Minute Variance Variance -- 30 Reason -- Refusal Cosigned by Sridhar Simpson PT at 03/13/2025 6:09 PM EDT * Darius Herlinda M - 03/13/2025 1:51 PM EDT Comprehensive Nutrition Assessment Type and Reason for Visit: Reassess Nutrition Recommendations/Plan: Continue current diet. Continue to provide Glucerna x1 daily. Add Magic Cup x1 daily. Malnutrition Assessment: Malnutrition Status: At risk for malnutrition (03/01/25 1338) Context: Acute Illness Findings of the 6 clinical characteristics of malnutrition: Energy Intake: Mild decrease in energy intake Weight Loss: No weight loss Body Fat Loss: (suspect age related loss) Muscle Mass Loss: (suspect age related loss) Fluid Accumulation: Mild (not related to nutritional status) Extremities Contour Stitcher Strength: Not Performed Nutrition Assessment: Pt was observed to have completed 75-100% of lunch today. RN reported that the Pt's intake fluctuates, but is usually 50-75% of most meals. Pt claims to dislike oral nutrition supplements, but the RNstated that he consumes them sometimes. RN suggested adding Magic Cup to the Pt's diet as he has a strong preference for ice cream. Pt denies any current GI issues; however, the RN flowsheet indicates constipation. Nutrition Related Findings: Edema: +1 RLE/LLE. Meds: Synthroid, Glycolax. Labs: Na 133 (03/13), BUN 28 (03/13), Creatinine 1.8 (03/13), Glucose 125 (03/13). Other labs and meds reivewed. BM 03/10; Constipation. Pt is disoriented at baseline. Wound Type: Surgical Incision Current Nutrition Intake & Therapies: Average Meal Intake: 51-75% (Fluctuates) Average Supplements Intake: 26-50% (Fluctuates per RN) ADULT DIET; Regular ADULT ORAL NUTRITION SUPPLEMENT; Lunch; Diabetic Oral Supplement Anthropometric Measures: Height: 185.4 cm (6' 0.99 ) [place] Body Weight (IBW): 184 lbs (84 kg) Admission Body Weight: 97 kg (213 lb 13.5 oz) (02/28) Current Body Weight: 97 kg (213 lb 13.5 oz), 116.2 % IBW. Weight Source: Bed scale Current BMI (kg/m2): 28.2 Usual Body Weight: 95.3 kg (210 lb) (Stated) % Weight Change (Calculated): 1.8 BMI Categories: Overweight (BMI 25.0-29.9) Estimated Daily Nutrient Needs: Energy Requirements Based On: Formula Weight Used for Energy Requirements: Admission Energy (kcal/day): 1696-[address] Jeor using 1.2-1.3 factors. Weight Used for Protein Requirements: Admission Protein (g/day): 97 grams of protein per day based on 1 gram of protein per kg (may vary based on renal function and healing needs). Fluid (ml/day): per physician Nutrition Diagnosis: Inadequate oral intake related to acute injury/trauma as evidenced by intake 51-75% Nutrition Interventions: Food and/or Nutrient Delivery: Continue Current Diet, Modify Oral Nutrition Supplement Nutrition Education/Counseling: Education/Counseling not appropriate Coordination of Nutrition Care: Continue to monitor while inpatient Goals: Goals: Meet at least 75% of estimated needs Type of Goal: Continue current goal Previous Goal Met: Progressing toward Goal(s) Nutrition Monitoring and Evaluation: Food/Nutrient Intake Outcomes: Food and Nutrient Intake, Supplement Intake Physical Signs/Symptoms Outcomes: Biochemical Data, Fluid Status or Edema, Weight, Skin, Constipation Discharge Planning: No discharge needs at this time Herlinda Mccoy Technical Aid Contact: Cosigned by Yael Barrett RD, LD at 03/13/2025 3:01 PM EDT * Saul Crouch MD - 03/13/2025 12:53 PM EDT NEPHROLOGY PROGRESS NOTE Patient : Leanna Nguyễn; 84 y.o. Location: 2619/2619-01 Attending: Juan Ramon Lucero MD Admit Date: 02/28/2025 Hospital Day: 13 Reason for Consult: ANIYA on CKD Chief Complaint: Fall History Obtained From: family member , electronic medical record Subjective Patient seen and examined, no new complains Sitting in recliner, sleeping. Labs 03/13/2025 scr stable 1.8 mg/dl BP stable History of Present Illness: This is a 84 y.o. male Patient with past medical history of atherosclerotic coronary artery diseasestatus post CABG, history of hyperlipidemia, essential hypertension, hypothyroidism, Parkinson's disease dementia with baseline disorientation former smoker, history of pulmonary fibrosis mild bilateral cardiac carotid artery disease, CKD stage III. Patient presented to [facility] 02/25[facility]2025 with complaints of left hip pain after he recently sustained a fall, patient denies dizziness nausea vomiting chest pain X-ray showed displaced femoral neck fracture of left hip, patient underwent left hip hemiarthroplasty on 02/25/2025 Patient serum creatinine on admission 1 on 02/25/2025 noted with 2.8 mg/dL and therefore nephrology was consulted, during the hospital stay kidney function improved to 1.8 mg/dL on 02/27/2025, patient was discharged to acute rehab. Nephrology was consulted to follow for ANIYA on CKD. Patient seen and examined at acute rehab no acute events patient is tired and exhausted after the physical therapy laying comfortably not in acute distress Past Medical History: History reviewed. No pertinent past medical history. Past Surgical History: Procedure Laterality Date HIP SURGERY Left 02/25/2025 HIP HEMIARTHROPLASTY performed by Ana Downing MD at [facility] OR Current Medications: amLODIPine (NORVASC) tablet 2.5 mg, Daily oxyCODONE HCl (OXY-IR) immediate release tablet 10 mg, 2 times per day And oxyCODONE HCl (OXY-IR) immediate release tablet 10 mg, Q4H PRN aspirin EC tablet 81 mg, Daily methocarbamol (ROBAXIN) tablet 500 mg, 4x Daily miconazole (MICOTIN) 2 % powder, BID heparin (porcine) injection 5,000 Units, 3 times per day polyethylene glycol (GLYCOLAX) packet 17 g, Daily senna (SENOKOT) tablet 17.2 mg, Daily PRN bisacodyl (DULCOLAX) suppository 10 mg, Daily PRN acetaminophen (TYLENOL) tablet 650 mg, Q6H PRN carbidopa-levodopa (SINEMET) 25-100 MG per tablet 1 tablet, TID levothyroxine (SYNTHROID) tablet 100 mcg, Daily liothyronine (CYTOMEL) tablet 5 mcg, Daily melatonin tablet 3 mg, Nightly PRN memantine (NAMENDA) tablet 10 mg, BID ondansetron (ZOFRAN-ODT) disintegrating tablet 4 mg, Q8H PRN sertraline (ZOLOFT) tablet 25 mg, Daily Allergies: Patient has no known allergies. Social History: Social History Socioeconomic History Marital status: Unknown Spouse name: Not on file Number of children: Not on file Years of education: Not on file Highest education level: Not on file Occupational History Not on file Tobacco Use Smoking status: Never Passive exposure: Never Smokeless tobacco: Never Substance and Sexual Activity Alcohol use: Not on file Drug use: Never Sexual activity: Not on file Other Topics Concern Not on file Social History Narrative Not on file Social Drivers of Health Financial Resource Strain: Not on file Food Insecurity: No Food Insecurity (02/28/2025) Hunger Vital Sign Worried About Running Out of Food in the Last Year: Never true Ran Out of Food in the Last Year: Never true Transportation Needs: No Transportation Needs (02/28/2025) PRAPARE - Transportation Lack of Transportation (Medical): No Lack of Transportation (Non-Medical): No Physical Activity: Not on file Stress: Not on file Social Connections: Not on file Intimate Partner Violence: Unknown (08/27/2023) Received from [facility] Safety & Environment Fear of Current or Ex-Partner: Not on file Emotionally Abused: Not on file Physically Abused: Not on file Sexually Abused: Not on file Physically or Sexually Abused: Not on file Housing Stability: Low Risk (02/28/2025) Housing Stability Vital Sign Unable to Pay for Housing in the Last Year: No Number of Times Moved in the Last Year: 0 Homeless in the Last Year: No Family History: No family history on file. Review of Systems: Patient not responding to verbal stimuli is sleeping Objective: CURRENT TEMPERATURE: Temp: 97.3 F (36.3 C) MAXIMUM TEMPERATURE OVER 24HRS: Temp (24hrs), Av.6 F (36.4 C), Min:97.3 F (36.3 C), Max:97.9 F (36.6 C) CURRENT RESPIRATORY RATE: Respirations: 15 CURRENT PULSE: Pulse: 64 CURRENT BLOOD PRESSURE: BP: (!) 146/71 24HR BLOOD PRESSURE RANGE: Systolic (24hrs), Av , Min:146 , Max:162 ; Diastolic (24hrs), Av, Min:70, Max:71 24HR INTAKE/OUTPUT: No intake or output data in the 24 hours ending 03/13/25 1254 No data found. Physical Exam: GENERAL APPEARANCE: Comfortable not in acute distress HEAD: normocephalic NOSE: No nasal discharge. CARDIAC: Normal S1 and S2. No S3, S4 or murmurs. Rhythm is regular. LUNGS: Clear to auscultation without rales, rhonchi, wheezing or diminished breath sounds. NECK: Neck supple, trachea midline GI-soft nontender nondistended abdomen MUSKULOSKELETAL: Adequately aligned spine. No joint erythema or tenderness. EXTREMITIES: No edema. Peripheral pulses intact. NEURO: Nonfocal Labs: CBC: No results for input(s): WBC , RBC , HGB , HCT , MCV , MCH , MCHC , RDW , PLT , MPV in the last 72 hours. BMP: No results for input(s): NA , K , CL , CO2 , BUN , CREATININE , GLUCOSE , CALCIUM in the last 72 hours. Phosphorus: No results for input(s): PHOS in the last 72 hours. Radiology: Reviewed as available. 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 * Bela Roe, ULTRA SOUND TECHNICIAN - 03/13/2025 10:35 AM EDT Speech Language Pathology [facility] Cognitive Treatment Note Date: 03/13/2025 Patient s Name: Leanna Nguyễn Diagnosis: Patient Active Problem List Diagnosis Code Left displaced femoral neck fracture (HCC) S72.002A Fall W19.XXXA ANIYA (acute kidney injury) N17.9 Parkinson's disease ([facility]) G20.A1 Coronary artery disease involving [place] coronary artery of [place] heart without angina pectoris I25.10 Hip fracture, left, sequela S72.002S S/P hip hemiarthroplasty Z96.649 Closed fracture of left hip ([facility]) S72.002A Pain Rating: Pt. Denies pain. Cognitive Treatment Treatment time: ULTRA SOUND TECHNICIAN Individual Minutes Time In: 902 Time Out: 929 Minutes: 27 Short session d/t extended OT session Subjective: [x] Alert [x] Cooperative [] Confused [] Agitated [] Lethargic Objective/Assessment: Attention: Pt. Easily distracted. Environment modified to reduce external distractions (door shut, television muted). Pt. Required frequent repetition of stimuli/task instructions t/o session. Pt. Occasionally responding to stimuli off-topic. Orientation: Pt. Oriented to reason, name of hospital, month, year, and CLAUDIO independently. Pt. Disoriented to time of day and type of place. Recall: Pt. Recalled 1/3 units immediately, 0/3 following short delay. Problem Solving/Reasoning: Pt. Provided 2 meanings of given word c 90%. Pt. Named 10 items in category (fruits) c 80%, 90% c cues. MAX cues to stay on topic. Other: Pt. Requested to be taken to PT gym to watch other patients until his PT appointment at [address]. ST left pt. In gym c chair alarm on. Plan: [x] Continue ST services [] Discharge from ST: Discharge recommendations: [x] Further therapy recommended at discharge. [] No therapy recommended at discharge. Treatment completed by: Bela Roe M.A.CCC/ULTRA SOUND TECHNICIAN * Juan Ramon Lucero MD - 03/13/2025 10:02 AM EDT Physical Medicine & Rehabilitation Progress Note Subjective: Patient is an 84-year-old male with left hip fracture s/p hemiarthroplasty. No acute events overnight. Patient seen and examined in his room. He reports he is doing fine. Tolerating therapy. Denies uncontrolled pain at this time. Later in the afternoon, nurse/therapist had concerns about new slurred speech. Nursing did report recently administered pain medication. On exam patient was a bit drowsy but with prompting able to answer orientation questions including name, general location (hospital), and to year while exhibiting fluent speech. While a bit obstinate, he did eventually participate in neurological exam, normal cranial nerves, no focal motor deficits identified. ROS: Denies fevers, chills, sweats. No chest pain, palpitations, lightheadedness. Denies coughing, wheezing or shortness of breath. Denies abdominal pain, nausea, diarrhea or constipation. No new areas of joint pain. Denies new areas of numbness or weakness. Denies new anxiety or depression issues. No new skin problems. Rehabilitation: PT: Bed mobility Rolling to Left: 2 Person assistance, Substantial/Maximal assistance Rolling to Right: Partial/Moderate assistance (Pt directable w/verbal & tactile cueing. Pillow placed between LEs.) Supine to Sit: Substantial/Maximal assistance (Less painful verbalization (mild groaning only), andresponding to cues to scoot toward EOB. To Pt's R.) Sit to Supine: 2 Person assistance, Substantial/Maximal assistance (BLEs and assist to reposition trunk; Pt started screaming w/movement. Entering on L side of bed.) Scootin Person assistance, Minimal assistance Bed Mobility Comments: Not certain about cause of screaming; movement may have been too quick (Pt was in F/G spirits on approach to bed). Dr. Padron assessed on hearing him scream. Transfers Sit to Stand: 2 Person Assistance, Substantial/Maximal assistance (Max x2 from w/c. G response to cues for hand position. Mod x1 from elevated bed.) Stand to Sit: 2 Person Assistance, Partial/Moderate assistance (Continuous cues to keep moving w/frequent stops/starts.) Bed to Chair: Substantial/Maximal assistance (Cues for safety w/moderate response. Flexed at knees & hips, Parkinsonian gait.) Stand Pivot Transfers: Substantial/Maximal assistance (Cues for safety w/moderate response. Flexed at knees & hips, Parkinsonian gait. W/C to recliner.) Comment: RW. Ambulation WB Status: WBAT L LE Ambulation Surface: Level tile Device: Rolling Walker Other Apparatus: Wheelchair follow Assistance: Substantial/Maximal assistance Quality of Gait: Small steps, flexed posture, NBOS. G awareness of obstacles; manuevers appropriately. Parkisonian gait w/frequent stops & starts; declined all offers of seated rest until end. Gait Deviations: Decreased step length, Decreased step height, Decreased head and trunk rotation Distance: 190' Comments: Pt states he has less pain while standing/walking than in bed. [id number] providing w/c follow. More Ambulation?: No Ambulation 2 Surface - 2: uneven, outdoors, ramp Device 2: Rolling Walker Other Apparatus 2: Wheelchair follow Assistance 2: Substantial/Maximal assistance Quality of Gait 2: NBOS, step-to & Parkinsonian gait. Fatigued quickly. Gait Deviations: Decreased step length, Decreased step height, Slow Wendy, Decreased head and trunk rotation Distance: 80' Comments: Denies need to rest or stop/sit. OT: Feeding: Setup Grooming: Supervision Grooming Skilled Clinical Factors: brush teeth, wash face seated in w/c up to sink. UE Bathing: Supervision UE Bathing Skilled Clinical Factors: seated in w/c up to sink. LE Bathing: Dependent/Total LE Bathing Skilled Clinical Factors: TA x 2 to stand with RW and wash ronit, bottom. seated- pt ableto wash thighs with set up, TA distally. ed pt how far he is allowed to bend to wash LE. pt had difficulty understanding and following this so OT had him hand her the washcloth to provide assist to wash distal LE to keep L hip precautions. UE Dressing: Minimal assistance UE Dressing Skilled Clinical Factors: t shirt. assist needed to pull down shirt in back- did not respond to cues. LE Dressing: Dependent/Total LE Dressing Skilled Clinical Factors: TA don pants over feet, TA x 2 to don pullups, pants over hips stand with lynette mauricio. Putting On/Taking Off Footwear: Dependent/Total Putting On/Taking Off Footwear Skilled Clinical Factors: TA don teds and slipper socks. Toileting: Dependent/Total Toileting Skilled Clinical Factors: TA x 2 stand with RW. Toilet Transfers Equipment Used: Grab bars Toilet Transfer: 2 Person assistance, Dependent/Total Toilet Transfers Comments: max x 2 stand pivot transfer with RW w/c to toilet with grab bars, TA x 2 stand for toileting with RW, then TA x 2 stand with lynette mauricio for transfer off toilet to w/c, then BSC obtained for over the toilet, due to pt max fatigued with mobility and higher surface will be helpful. plan communicated to nsg is lynette mauricio A x 2. SPEECH: Cognitive Treatment Treatment time: ULTRA SOUND TECHNICIAN Individual Minutes Time In: 902 Time Out: 929 Minutes: 27 Short session d/t extended OT session Subjective: [x] Alert [x] Cooperative [] Confused [] Agitated [] Lethargic Objective/Assessment: Attention: Pt. Easily distracted. Environment modified to reduce external distractions (door shut, television muted). Pt. Required frequent repetition of stimuli/task instructions t/o session. Pt. Occasionally responding to stimuli off-topic. Orientation: Pt. Oriented to reason, name of hospital, month, year, and CLAUDIO independently. Pt. Disoriented to time of day and type of place. Recall: Pt. Recalled 1/3 units immediately, 0/3 following short delay. Problem Solving/Reasoning: Pt. Provided 2 meanings of given word c 90%. Pt. Named 10 items in category (fruits) c 80%, 90% c cues. MAX cues to stay on topic. Other: Pt. Requested to be taken to PT gym to watch other patients until his PT appointment at [address]. ST left pt. In gym c chair alarm on. Plan: [x] Continue ST services [] Discharge from ST: Discharge recommendations: [x] Further therapy recommended at discharge. [] No therapy recommended at discharge. Objective: BP (!) 146/71 Pulse 64 Temp 97.3 F (36.3 C) (Oral) Resp 15 Ht 1.854 m (6' 0.99 ) Wt 97 kg(213 lb 13.5 oz) SpO2 97% BMI 28.22 kg/m GEN: well developed, well nourished, NAD HEENT: NCAT, EOMI, mucous membranes pink and moist CV: RRR, no murmurs, rubs or gallops PULM: Respirations WNL and unlabored ABD: soft, ND, NT NEURO: Alert, oriented to person, location, year. Sensation intact to light touch in the bilateral lower limbs. Cranial nerve exam normal and symmetrical MSK: Strength at least antigravity and symmetrical bilateral upper extremities, 5/5 with bilateral ankle dorsiflexion and plantarflexion. SKIN: warm dry and intact with good turgor PSYCH: appropriately interactive. Affect WNL. Diagnostics: CBC: No results for input(s): WBC , RBC , HGB , HCT , MCV , RDW , PLT in the last 72 hours. BMP: Recent Labs 03/13/25 1353 NA 133* K 4.7 CL 102 CO2 19* BUN 28* CREATININE 1.8* GLUCOSE 124* BNP: No results for input(s): BNP in the last 72 hours. PT/INR: No results for input(s): PROTIME , INR in the last 72 hours. APTT: No results for input(s): APTT in the last 72 hours. CARDIAC ENZYMES: No results for input(s): CKMB , CKMBINDEX , TROPONINT in the last 72 hours. Invalid input(s): CKTOTAL;3 troponins FASTING LIPID PANEL: Lab Results Component Value Date CHOL 135 02/25/2025 HDL 53 02/25/2025 TRIG 57 02/25/2025 LIVER PROFILE: No results for input(s): AST , ALT , BILIDIR , BILITOT , ALKPHOS in the last 72 hours. Invalid input(s): ALB Current Medications: Current Facility-Administered Medications: amLODIPine (NORVASC) tablet 2.5 mg, 2.5 mg, Oral, Daily oxyCODONE HCl (OXY-IR) immediate release tablet 10 mg, 10 mg, Oral, 2 times per day AND oxyCODONE HCl (OXY-IR) immediate release tablet 10 mg, 10 mg, Oral, Q4H PRN aspirin EC tablet 81 mg, 81 mg, Oral, Daily methocarbamol (ROBAXIN) tablet 500 mg, 500 mg, Oral, 4x Daily miconazole (MICOTIN) 2 % powder, , Topical, BID heparin (porcine) injection 5,000 Units, 5,000 Units, SubCUTAneous, 3 times per day polyethylene glycol (GLYCOLAX) packet 17 g, 17 g, Oral, Daily senna (SENOKOT) tablet 17.2 mg, 2 tablet, Oral, Daily PRN bisacodyl (DULCOLAX) suppository 10 mg, 10 mg, Rectal, Daily PRN acetaminophen (TYLENOL) tablet 650 mg, 650 mg, Oral, Q6H PRN OR [DISCONTINUED] acetaminophen (TYLENOL) suppository 650 mg, 650 mg, Rectal, Q6H PRN carbidopa-levodopa (SINEMET) 25-100 MG per tablet 1 tablet, 1 tablet, Oral, TID levothyroxine (SYNTHROID) tablet 100 mcg, 100 mcg, Oral, Daily liothyronine (CYTOMEL) tablet 5 mcg, 5 mcg, Oral, Daily melatonin tablet 3 mg, 3 mg, Oral, Nightly PRN memantine (NAMENDA) tablet 10 mg, 10 mg, Oral, BID ondansetron (ZOFRAN-ODT) disintegrating tablet 4 mg, 4 mg, Oral, Q8H PRN OR [DISCONTINUED] ondansetron (ZOFRAN) injection 4 mg, 4 mg, IntraVENous, Q6H PRN sertraline (ZOLOFT) tablet 25 mg, 25 mg, Oral, Daily Reviewed notes from internal medicine, OT, ST. Impression/Plan: Impaired ADLs, gait, and mobility due to: Left femoral neck fracture secondary to fall s/p left hip hemiarthroplasty: surgery 02/[address] Downing. PT/OT for gait, mobility, strengthening, endurance, ADLs, and self care - 900 minute plan. Pain control with PRN Tylenol, PRN Oxycodone - scheduled doses BID before therapies on 03/09. Okay to remove roosevelt on 03/11 if incision looks okay, per Dr. Downing. Muscle spasms: Robaxin 500 mg 4 times daily started 03/05. Parkinson's Disease: on sinemet Dementia: on Namenda. Questionable change in neurological status: Drowsiness with slurred speech on 03/13, likely related to opioid pain medication. Patient was sleepy but with repeated prompting patient was able to participate in neurological exam; CN exam normal and symmetrical, motor testing symmetrical without focal deficit, able to answer orientation questions at baseline, exhibiting fluent speech. Will continue to monitor. Venous stasis dermatitis: Complains of pain with compression stockings, no signs or symptoms of infection/cellulitis. Continue to monitor. Essential hypertension: Resumed on home amlodipine dose per internal medicine. Hyperlipidemia: lipid panel reviewed by Cardiology in acute care, monitoring off of cholesterol medications for now. Coronary artery disease: CABG in 2010. On Aspirin CHF: Torsemide held in setting of hypokalemia, not continued at discharge from acute care - nephrology discontinued 03/07 after restarting it. Compensated. Pulmonary fibrosis ANIYA on CKD stage IIIb: Baseline Cr ~2.1. Creatinine 1.8 on 03/10. Nephrology following - discontinuedtorsemide. Renal function stable. Continue to monitor with periodic labs. Hypothyroidism: on synthroid, on liothyronine. TSH 1.91 02/25. Depression: on Zoloft Possible pancreatic cysts: Identified on chest CT, consider outpatient evaluation for MRCP on nonemergent basis. Bowel Management: Miralax daily, senokot prn, dulcolax prn. DVT Prophylaxis: SCD's while in bed, RIDDHI's during the day, and ASA 81 mg BID per Ortho protocol Internal Medicine for medical management Follow up: PCP 1-2 weeks, Orthopedic Surgery - Dr. Downing * Ella Arzola MD - 03/12/2025 10:04 AM EDT NEPHROLOGY PROGRESS NOTE Patient : Leanna Nguyễn; 84 y.o. Location: 2619/2619-01 Attending: Juan Ramon Lucero MD Admit Date: 02/28/2025 Hospital Day: 12 Reason for consultation: Management of acute kidney injury superimposed on chronic kidney disease stage IIIb. Requesting physician: Juan Ramon Lucero MD. Interval history: Patient was seen and examined today. He was having breakfast during this encounter and there was no evidence of aspiration. He denies shortness of breath or chest pain and is nonoliguric. History of Present Illness: This is a 84 y.o. male Patient with past medical history of atherosclerotic coronary artery diseasestatus post CABG, history of hyperlipidemia, essential hypertension, hypothyroidism, Parkinson's disease dementia with baseline disorientation former smoker, history of pulmonary fibrosis mild bilateral cardiac carotid artery disease, CKD stage III. Patient presented to [facility] on 02/25/2025 with complaints of left hip pain after he recently sustained a fall, patient denies dizziness nausea vomiting chest pain X-ray showed displaced femoral neck fracture of left hip, patient underwent left hip hemiarthroplasty on 02/25/2025 Patient serum creatinine on admission 1 on 02/25/2025 noted with 2.8 mg/dL and therefore nephrology was consulted, during the hospital stay kidney function improved to 1.8 mg/dL on 02/27/2025, patient was discharged to acute rehab. Nephrology was consulted to follow for ANIYA on CKD. Patient seen and examined at acute rehab no acute events patient is tired and exhausted after the physical therapy laying comfortably not in acute distress Current Medications: amLODIPine (NORVASC) tablet 2.5 mg, Daily oxyCODONE HCl (OXY-IR) immediate release tablet 10 mg, 2 times per day And oxyCODONE HCl (OXY-IR) immediate release tablet 10 mg, Q4H PRN aspirin EC tablet 81 mg, Daily methocarbamol (ROBAXIN) tablet 500 mg, 4x Daily miconazole (MICOTIN) 2 % powder, BID heparin (porcine) injection 5,000 Units, 3 times per day polyethylene glycol (GLYCOLAX) packet 17 g, Daily senna (SENOKOT) tablet 17.2 mg, Daily PRN bisacodyl (DULCOLAX) suppository 10 mg, Daily PRN acetaminophen (TYLENOL) tablet 650 mg, Q6H PRN carbidopa-levodopa (SINEMET) 25-100 MG per tablet 1 tablet, TID levothyroxine (SYNTHROID) tablet 100 mcg, Daily liothyronine (CYTOMEL) tablet 5 mcg, Daily melatonin tablet 3 mg, Nightly PRN memantine (NAMENDA) tablet 10 mg, BID ondansetron (ZOFRAN-ODT) disintegrating tablet 4 mg, Q8H PRN sertraline (ZOLOFT) tablet 25 mg, Daily Objective: CURRENT TEMPERATURE: Temp: 97.9 F (36.6 C) MAXIMUM TEMPERATURE OVER 24HRS: Temp (24hrs), Av.3 F (36.8 C), Min:97.9 F (36.6 C), Max:98.6 F (37 C) CURRENT RESPIRATORY RATE: Respirations: 18 CURRENT PULSE: Pulse: 54 CURRENT BLOOD PRESSURE: BP: (!) 160/57 24HR BLOOD PRESSURE RANGE: Systolic (24hrs), Av , Min:154 , Max:160 ; Diastolic (24hrs), Av, Min:57, Max:71 24HR INTAKE/OUTPUT: No intake or output data in the 24 hours ending 03/12/25 1004 Physical Exam: GENERAL APPEARANCE: Comfortable not in acute distress HEAD: normocephalic and atraumatic. NECK: Supple with no JVD CARDIAC: Normal S1 and S2. No S3, S4 or murmurs. Rhythm is regular. LUNGS: Clear to auscultation without rales, rhonchi, wheezing or diminished breath sounds. ABDOMEN: Soft with no palpable organomegaly. Normal bowel sounds. MUSKULOSKELETAL: Adequately aligned spine. No joint erythema or tenderness. EXTREMITIES: No edema. Peripheral pulses intact. NEURO: Awake and alert; no focal neurologic deficits. Labs: CBC: No results for input(s): WBC , RBC , HGB , HCT , MCV , MCH , MCHC , RDW , PLT , MPV in the last 72 hours. BMP: Recent Labs 03/10/25 1002 NA 139 K 4.9 CL 103 CO2 25 BUN 34* CREATININE 1.8* GLUCOSE 102* CALCIUM 9.4 Assessment/plan: 1. Acute kidney injury superimposed on chronic kidney disease stage IIIb - consistent with prerenalazotemia. Renal function is stable. Patient is nonoliguric. Plan: Avoid nephrotoxic agents Monitor urine output closely. Basic metabolic profile daily. 2. Systemic hypertension - blood pressure control is slightly suboptimal. Agree with starting amlodipine 2.5 mg p.o. daily. 3. Fall from height with displaced left femoral neck fracture - s/p left hip hemiarthroplasty on 02/25/2025. Pain control is adequate. Prognosis is guarded. * Roxanne Edward MD - 03/12/2025 9:41 AM EDT IN-PATIENT SERVICE [facility] Internal Medicine Progress note Date: 03/12/2025 Patient name: Leanna Nguyễn Date of admission: 02/28/2025 3:30 PM Account: [id number] Date of : 1940 PCP: Pipe Jeffers MD Room: [facility]2619- Code Status: Full Code Physician Requesting Consult: Juan Ramon Lucero MD Reason for Consult: medical management Chief Complaint: Medical management History Obtained From: Patient medical record nursing staff History of Present Illness: Patient, has past medical history multiple medical problem, which include coronary artery disease status post CABG, CHF, hypothyroidism, hypertension, hyperlipidemia, pulmonary fibrosis, chronic kidney disease, Parkinson disease, dementia, patient presented to [facility] after a fall, he had left hip pain, found to have acute subcapital left femoral neck fracture, patient underwent left hip hemiarthroplasty on 02/25 While in hospital, patient had worsening creatinine, was evaluated by table worker, treated with IVfluids, torsemide was kept on hold, patient, creatinine improved to his baseline, Patient required Shell's catheter placement which was later removed Transferred to [facility] rehab unit for further management Past Medical History: History reviewed. No pertinent past medical history. Past Surgical History: Past Surgical History: Procedure Laterality Date HIP SURGERY Left 02/25/2025 HIP HEMIARTHROPLASTY performed by Ana Downing MD at [facility] OR Medications Prior to Admission: Prior to Admission medications Medication Sig Start Date End Date Taking? Authorizing Provider amLODIPine (NORVASC) 2.5 MG tablet Take 1 tablet by mouth daily Ruth Howe MD aspirin 81 MG chewable tablet Take 1 tablet by mouth daily Ruth Howe MD carbidopa-levodopa (SINEMET) 10-100 MG per tablet Take 1 tablet by mouth 3 times daily Ruth Howe MD cephALEXin (KEFLEX) 500 MG capsule Take 1 capsule by mouth 2 times daily Ruth Howe MD folic acid (FOLVITE) 400 MCG tablet Take 1 tablet by mouth daily Ruth Howe MD levothyroxine (SYNTHROID) 100 MCG tablet Take 1 tablet by mouth Daily Ruth Howe MD liothyronine (CYTOMEL) 5 MCG tablet Take 1 tablet by mouth daily Ruth Howe MD memantine (NAMENDA) 10 MG tablet Take 1 tablet by mouth 2 times daily Ruth Howe MD Multiple Vitamins-Minerals (THERAPEUTIC MULTIVITAMIN-MINERALS) tablet Take 1 tablet by mouth daily Ruth Howe MD potassium chloride (KLOR-CON) 20 MEQ packet Take 10 mEq by mouth daily Ruth Howe MD sennosides-docusate sodium (SENOKOT-S) 8.6-50 MG tablet Take 1 tablet by mouth daily Ruth Howe MD sertraline (ZOLOFT) 25 MG tablet Take 1 tablet by mouth daily Ruth Howe MD tolterodine (DETROL) 1 MG tablet Take 1 tablet by mouth 2 times daily Ruth Howe MD torsemide (DEMADEX) 10 MG tablet Take 1 tablet by mouth daily Ruth Howe MD vitamin B-12 (CYANOCOBALAMIN) 500 MCG tablet Take 1 tablet by mouth daily Ruth Howe MD vitamin D 50 MCG (2000 UT) CAPS capsule Take 1 capsule by mouth daily Ruth Howe MD Allergies: Patient has no known allergies. Social History: Tobacco: reports that he has never smoked. He has never been exposed to tobacco smoke. He has neverused smokeless tobacco. Alcohol: has no history on file for alcohol use. Drug Use: reports no history of drug use. Family History: No family history on file. Review of Systems: Positive and Negative as described in HPI. CONSTITUTIONAL: negative for fevers, chills, sweats, fatigue, weight loss HEENT: negative for vision, hearing changes, runny nose, throat pain RESPIRATORY: negative for shortness of breath, cough, congestion, wheezing. CARDIOVASCULAR: negative for chest pain, palpitations. GASTROINTESTINAL: negative for nausea, vomiting, diarrhea, constipation, change in bowel habits, abdominal pain GENITOURINARY: negative for difficulty of urination, burning with urination, frequency INTEGUMENT: negative for rash, skin lesions, easy bruising HEMATOLOGIC/LYMPHATIC: negative for swelling/edema ALLERGIC/IMMUNOLOGIC: negative for urticaria , itching ENDOCRINE: negative increase in drinking, increase in urination, hot or cold intolerance MUSCULOSKELETAL: Pain, left hip NEUROLOGICAL: negative for headaches, dizziness, lightheadedness, numbness, pain, tingling extremities BEHAVIOR/PSYCH: Physical Exam: BP (!) 160/57 Pulse 54 Temp 97.9 F (36.6 C) (Oral) Resp 18 Ht 1.854 m (6' 0.99 ) Wt 97 kg(213 lb 13.5 oz) SpO2 99% BMI 28.22 kg/m Temp (24hrs), Av.3 F (36.8 C), Min:97.9 F (36.6 C), Max:98.6 F (37 C) No results for input(s): POCGLU in the last 72 hours. No intake or output data in the 24 hours ending 03/12/25 0942 General Appearance: alert, well appearing, and in no acute distress, wheelchair-bound Mental status: oriented to person, place, and time with normal affect Head: normocephalic, atraumatic. Eye: no icterus, redness, pupils equal and reactive, extraocular eye movements intact, conjunctiva clear Ear: normal external ear, no discharge, hearing intact Nose: no drainage noted Mouth: mucous membranes moist Neck: supple, no carotid bruits, thyroid not palpable Lungs: Bilateral equal air entry, clear to ausculation, no wheezing, rales or rhonchi, normal effort Cardiovascular: normal rate, regular rhythm, no murmur, gallop, rub. Abdomen: Soft, nontender, nondistended, normal bowel sounds, no hepatomegaly or splenomegaly Neurologic: There are no new focal motor or sensory deficits, normal muscle tone and bulk, no abnormal sensation, normal speech, cranial nerves II through XII grossly intact Skin: No gross lesions, rashes, bruising or bleeding on exposed skin area Extremities: Postsurgical changes present left hip, mild edema in left leg Psych: Investigations: Laboratory Testing: No results found for this or any previous visit (from the past 24 hours). Consultations: IP CONSULT TO DIETITIAN IP CONSULT TO SOCIAL WORK IP CONSULT TO INTERNAL MEDICINE IP CONSULT TO NEPHROLOGY Assessment : Primary Problem Hip fracture, left, sequela Active Hospital Problems Diagnosis Date Noted S/P hip hemiarthroplasty [Z96.649] 03/01/2025 Closed fracture of left hip (HCC) [S72.002A] 03/01/2025 Hip fracture, left, sequela [S72.002S] 02/28/2025 Plan: Left hip fracture status post left hip hemiarthroplasty, on 02/25 Coronary artery disease status post CABG, on aspirin, not on statin, patient could not tell me whether he is allergic to statin or not, review of previous office visit notes, Lipitor is not mentionedin his home medication list, will discuss with close family, regarding previous documented statin allergies, patient, recently evaluated by loading unit operator, last LDL was 71 CHF, compensated Parkinson disease, follows closely with neurology as outpatient Dementia on Namenda Hypothyroidism on Synthroid and liothyronine , TSH tested recently is okay Chronic kidney disease, creatinine inproved to 1.8 , diuretics kept on hold, patient evaluated by table worker starting patient on heparin 5000 every 8 for DVT prophylaxis Underwent CT of chest, concerning for pancreatic cyst, need outpatient evaluation by MRCP on nonemergent basis Patient seen and examined creatinine has improved to 1.8, patient intermittently hypertensive, takes amlodipine 2.5 at home, will resume, No chest pain shortness of breath Roxanne Edward MD 03/12/2025 9:42 AM Copy sent to Pipe Doe MD Please note that this chart was generated using voice recognition [employer] dictation software. Although every effort was made to ensure the accuracy of this automated physical education professor, some errors in physical education professor may have occurred. * Ankush Padron MD - 03/12/2025 9:16 AM EDT Physical Medicine & Rehabilitation Progress Note Subjective: Patient is an 84-year-old male with left hip fracture s/p hemiarthroplasty. Patient is feeling well this AM , slept well . He denies any other acute concerns. Roosevelt were removed yesterday. ROS: Denies fevers, chills, sweats. No chest pain, palpitations, lightheadedness. Denies coughing, wheezing or shortness of breath. Denies abdominal pain, nausea, diarrhea or constipation. No new areas of joint pain. Denies new areas of numbness or weakness. Denies new anxiety or depression issues. No new skin problems. Rehabilitation: PT: Bed Mobility Bed mobility Rolling to Right: Partial/Moderate assistance (Pt directable w/verbal & tactile cueing. Pillow placed between LEs.) Supine to Sit: 2 Person assistance;Substantial/Maximal assistance (Less painful verbalization (mildgroaning only), and responding to cues to scoot toward EOB. To Pt's R.) Sit to Supine: 2 Person assistance;Partial/Moderate assistance (BLEs and assist to reposition trunk; Pt responsive to cues. Entering on L side of bed.) Scootin Person assistance;Minimal assistance Bed Mobility Comments: Large improvement: Pt more cooperative/participating in process & responding to cues. Transfers Transfers Sit to Stand: 2 Person Assistance;Substantial/Maximal assistance (Max x2 from w/c; Pt asked to attempt on his own first w/o success, accepted help after. G response to cues for hand position. Mod x1 from elevated bed.) Stand to Sit: 2 Person Assistance;Partial/Moderate assistance (G response to cues to sit EOB & change body positioning.) Stand Pivot Transfers: 2 Person Assistance;Partial/Moderate assistance (Cues for safety w/moderate response. Flexed at knees & hips, Parkinsonian gait. Also performed w/Max x1.) Comment: RW Mobility Ambulation WB Status: WBAT L LE Ambulation Surface: Level tile Device: Rolling Walker Other Apparatus: Wheelchair follow Assistance: Minimal assistance Quality of Gait: Small steps, flexed posture. G awareness of obstacles; manuevers appropriately. Includes some retro amb. w/cues for approximation to seat. Gait Deviations: Decreased step length;Decreased step height;Decreased head and trunk rotation Distance: 3' & 17' AM, level surface only & no w/c follow; 283' PM including ramp & w/cfollow Comments: Pt states he has less pain while standing/walking than in bed. [id number] providing w/c follow. Ambulation 2 Surface - 2: level tile;ramp Device 2: Rolling Walker Other Apparatus 2: Wheelchair follow Assistance 2: Minimal assistance Quality of Gait 2: NBOS, step-to gait w/ short initial steps but improves to more reciprocal pattern as distance progresses, regresses to short steps w/ transitions, turns, ramp. Cues to prevent repeat of lifting RW to walk over threshold w/ G return. G awareness of obstacles in path & negotiating around them w/o cues. Gait Deviations: Decreased step length;Decreased step height;Slow Wendy;Decreased head and trunk rotation Distance: 283' Comments: Denies need to rest or stop/sit. Balance Balance Posture: Poor Sitting - Static: Poor (Posterior lean sitting EOB; requires Max support initially, then gradually able to sit upright, but requires assist to get feet on floor, cues to move hands to support (does not attempt to perform last 2 independently)) Sitting - Dynamic: Poor;- (EOB) Standing - Static: Poor (RW; posterior lean.) Standing - Dynamic: Poor;- (RW) PT Exercises PT Exercises Functional Mobility Circuit Training: Bed mobility & transfers to doff/don pants for physician assessment of incision & preparation for subsequent therapies. Motor Control/Coordination: Physical therapy activity, including reaching OOBOS, 30 min. Activity Tolerance Activity Tolerance Activity Tolerance: Treatment limited secondary to decreased cognition;Patient tolerated treatment well Assessment Clinical Presentation: Pleasant & largely polite. OT Activities of Daily Living Lower Extremity Dressing Assistance Level: Maximum assistance Skilled Clinical Factors: Pt provided w/ banquet houseperson to greg pants. Req Max A and increased time to thread BLE. w/ min Ax2 to maintain standing balance while assembly instructions writer and RN pulled pants over hips. Pt req max cuing for sequencing of tasks & placement of banquet houseperson. Mobility Bed Mobility Overall Assistance Level: Maximum Assistance Additional Factors: Set-up;Verbal cues;Increased time to complete Supine to Sit Assistance Level: Maximum assistance Skilled Clinical Factors: A provided for BLE and trunk w/ max cuing for hand placement and increased time. CGA static seated balance at EOB w/ increased time and cuing for hand placement Scooting Assistance Level: Maximum assistance Skilled Clinical Factors: Increased time, and cuing for technique and hand placement, Pt attempts to complete Transfers Surface: From bed;Wheelchair Additional Factors: Set-up;Verbal cues;Increased time to complete;Hand placement cues Device: Walker Sit to Stand Assistance Level: Dependent;Requires x 2 assistance Skilled Clinical Factors: Mod A x2 w/ A from ITZ Krueger. max cuing for hand placement and sequencing. increased time tocomplete. Posterior lean noted, Pt able to correct w/ cuing Stand Pivot Assistance Level: Requires x 2 assistance;Dependent Skilled Clinical Factors: completed AM & PM: max A x2 for safety. completed w/ RW & increased time and cuing for sequencing & initiation. small shuffing steps noted w/ A for RW mgmt. OT Exercises Exercise Treatment: AM: Pt completed functional reaching exercise to increase IND w/ ADL tasks & overall strengthening w/ use of graded resistive clothes pins, placing them above head height. PM:Pt completed golf tees placement activity into target to increase IND w/ ADL/IADL and activity tolerance. Pt tolerated well & req increased time to complete activity. Resistive Exercises: Pt completed x20 exercised in all available planes w/ 2# free weight to increased IND w/ ADL/IADLs. Pt tolerated well & req increased RB w/ cuing for proper form. Assessment Assessment Activity Tolerance: Treatment limited secondary to decreased cognition;Patient limited by pain;Patient limited by fatigue;Patient limited by endurance Discharge Recommendations: Continue to assess pending progress Patient Education Education Education Given To: Patient Education Provided: Role of Therapy;Plan of Care;Precautions;Safety;ADL Function;Transfer Training;Energy Conservation Education Method: Demonstration;Verbal Barriers to Learning: Cognition Education Outcome: Continued education needed OT Equipment Recommendations Other: TBD - uncertain if pt can return to assisted living setting- he had walk in shower with seatand grab bars for shower and toilet. he has call alert. Safety Devices Safety Devices in place: Yes Type of devices: All fall risk precautions in place;Call light within reach;Chair alarm in place;Gait belt;Left in chair ST Objective/Assessment: Attention: Pt. Easily distracted. Environment modified to reduce external distractions (door shut, television muted). Pt. Required frequent repetition of stimuli/task instructions t/o session. Pt. Occasionally responding to stimuli off-topic. Orientation: Pt. Oriented to person, place, month, year, and CLAUDIO independently. Pt. Disoriented to time of day (stating good morning as assembly instructions writer exited). Recall: Category inclusion: 4/10 increased to 9/10 with mod-max verbal/visual cues and repetition of stimuli. ST implementing self-repetition to aid in recall. Pt. Unable to recall what he had for lunch, stating veggies and fruit . Unable to elaborate any further. Problem Solving/Reasoning: State category (concrete): 3/7 increased to 6/7 with binary choices/min verbal cues. Add to category (concrete): 5/7 increased to 7/7 with mod-max verbal cues. Other: OT present as ST exited. Plan: [x] Continue ST services [] Discharge from ST: Discharge recommendations: [x] Further therapy recommended at discharge. [] No therapy recommended at discharge. Objective: BP (!) 160/57 Pulse 54 Temp 97.9 F (36.6 C) (Oral) Resp 18 Ht 1.854 m (6' 0.99 ) Wt 97 kg(213 lb 13.5 oz) SpO2 99% BMI 28.22 kg/m GEN: well developed, well nourished, NAD HEENT: NCAT, EOM grossly intact, mucous membranes pink and moist CV: RRR, no murmurs, rubs or gallops PULM: CTAB, no rales or rhonchi. Respirations WNL and unlabored ABD: soft, ND, BS+ and equal NEURO: Alert. Sensation intact to light touch in the bilateral lower limbs. MSK: Strength 5/5 with bilateral ankle dorsiflexion and plantarflexion. SKIN: warm dry and intact with good turgor PSYCH: appropriately interactive. Affect WNL. Diagnostics: CBC: No results for input(s): WBC , RBC , HGB , HCT , MCV , RDW , PLT in the last 72 hours. BMP: Recent Labs 03/10/25 1002 NA 139 K 4.9 CL 103 CO2 25 BUN 34* CREATININE 1.8* GLUCOSE 102* BNP: No results for input(s): BNP in the last 72 hours. PT/INR: No results for input(s): PROTIME , INR in the last 72 hours. APTT: No results for input(s): APTT in the last 72 hours. CARDIAC ENZYMES: No results for input(s): CKMB , CKMBINDEX , TROPONINT in the last 72 hours. Invalid input(s): CKTOTAL;3 troponins FASTING LIPID PANEL: Lab Results Component Value Date CHOL 135 02/25/2025 HDL 53 02/25/2025 TRIG 57 02/25/2025 LIVER PROFILE: No results for input(s): AST , ALT , BILIDIR , BILITOT , ALKPHOS in the last 72 hours. Invalid input(s): ALB Current Medications: Current Facility-Administered Medications: oxyCODONE HCl (OXY-IR) immediate release tablet 10 mg, 10 mg, Oral, 2 times per day AND oxyCODONE HCl (OXY- IR) immediate release tablet 10 mg, 10 mg, Oral, Q4H PRN aspirin EC tablet 81 mg, 81 mg, Oral, Daily methocarbamol (ROBAXIN) tablet 500 mg, 500 mg, Oral, 4x Daily miconazole (MICOTIN) 2 % powder, , Topical, BID heparin (porcine) injection 5,000 Units, 5,000 Units, SubCUTAneous, 3 times per day polyethylene glycol (GLYCOLAX) packet 17 g, 17 g, Oral, Daily senna (SENOKOT) tablet 17.2 mg, 2 tablet, Oral, Daily PRN bisacodyl (DULCOLAX) suppository 10 mg, 10 mg, Rectal, Daily PRN acetaminophen (TYLENOL) tablet 650 mg, 650 mg, Oral, Q6H PRN OR [DISCONTINUED] acetaminophen (TYLENOL) suppository 650 mg, 650 mg, Rectal, Q6H PRN carbidopa-levodopa (SINEMET) 25-100 MG per tablet 1 tablet, 1 tablet, Oral, TID levothyroxine (SYNTHROID) tablet 100 mcg, 100 mcg, Oral, Daily liothyronine (CYTOMEL) tablet 5 mcg, 5 mcg, Oral, Daily melatonin tablet 3 mg, 3 mg, Oral, Nightly PRN memantine (NAMENDA) tablet 10 mg, 10 mg, Oral, BID ondansetron (ZOFRAN-ODT) disintegrating tablet 4 mg, 4 mg, Oral, Q8H PRN OR [DISCONTINUED] ondansetron (ZOFRAN) injection 4 mg, 4 mg, IntraVENous, Q6H PRN sertraline (ZOLOFT) tablet 25 mg, 25 mg, Oral, Daily Reviewed notes from internal medicine, OT, ST. Impression/Plan: Impaired ADLs, gait, and mobility due to: Left femoral neck fracture secondary to fall s/p left hip hemiarthroplasty: surgery 02/[address] Downing. PT/OT for gait, mobility, strengthening, endurance, ADLs, and self care - 900 minute plan. Pain control with PRN Tylenol, PRN Oxycodone - scheduled doses BID before therapies on 03/09. Okay to remove roosevelt on 03/11 if incision looks okay, per Dr. Downing. Muscle spasms: Robaxin 500 mg 4 times daily started 03/05. Parkinson's Disease: on sinemet Dementia: on Namenda. Venous stasis dermatitis: Complains of pain with compression stockings, no signs or symptoms of infection/cellulitis. Continue to monitor. Essential hypertension: Per history, not currently on antihypertensive medications. Blood pressure well-controlled. Continue to monitor. Hyperlipidemia: lipid panel reviewed by Cardiology in acute care, monitoring off of cholesterol medications for now. Coronary artery disease: CABG in 2010. On Aspirin CHF: Torsemide held in setting of hypokalemia, not continued at discharge from acute care - nephrology discontinued 03/07 after restarting it. Compensated. Pulmonary fibrosis ANIYA on CKD stage IIIb: Baseline Cr ~2.1. Creatinine 1.8 on 03/10. Nephrology following - discontinuedtorsemide. Continue to monitor with periodic labs. Hypothyroidism: on synthroid, on liothyronine. TSH 1.91 02/25. Depression: on Zoloft Possible pancreatic cysts: Identified on chest CT, consider outpatient evaluation for MRCP on nonemergent basis. Bowel Management: Miralax daily, senokot prn, dulcolax prn. DVT Prophylaxis: SCD's while in bed, RIDDHI's during the day, and ASA 81 mg BID per Ortho protocol Internal Medicine for medical management Follow up: PCP 1-2 weeks, Orthopedic Surgery - Dr. Downing * Keli Loyola OTA - 03/11/2025 3:56 PM EDT [facility] Acute Rehabilitation Occupational Therapy Daily Treatment Note Date: 03/11/25 Patient Name: Leanna Nguyễn Room: 2619/2619-01 Account: [id number] : 1940 (84 y.o.) Gender: male Diagnosis: left femoral neck fracture following fall. L hip Hemiarthroplasty , parkinson's. Additional Pertinent Hx: Leanna Nguyễn is a 84 y.o. right-handed male admitted to the [facility] on 02/28/2025. He was originally admitted to [facility] on 02/25/2025 for left femoral neck fracture following fall. 84-year-old male with a history of Parkinson's, CHF, coronary artery disease, CABG, hyperlipidemia, hypertension, altered mental status, syncope and collapse, pulmonary fibrosis, CKD and dementia presenting with hip pain after fall. Patient is disoriented at baseline. Cardiology 02/26-aspirin resumed, torsemide held in setting of hypokalemia. Internal medicine-left femoral neck fracture status post left hip hemiarthroplasty 02/25 lives in assisted living Ortho-displaced femoral neck fracture status post left hip hemiarthroplasty on 02/25 Nephrology- patientnoted to have ANIYA on CKD postoperative, UA and renal ultrasound unremarkable. Improved with gentle rehydration. Palliative care brother has power of civil attorney no , no children parents are deceasedStevnanette is the only sibling and next of kin reports that his daughter Kimberly is secondary, brother feels he can make his own decision, currently full code Treatment Diagnosis: impaired self care status d/t L hip hemiarthroplasty Past Medical History: has no past medical history on file. Past Surgical History: has a past surgical history that includes hip surgery (Left, 02/25/2025). Restrictions Restrictions/Precautions Restrictions/Precautions: Bed Alarm, Weight Bearing, Fall Risk, Surgical Protocols Activity Level: Up as Tolerated, Up with Assist Required Braces or Orthoses?: No Implants Present? : Metal implants Position Activity Restriction Hip Precautions: Posterior hip precautions, No hip flexion > 90 degrees, No sudden or extreme motions, No hip internal rotation, No hip external rotation, No ADduction Other Position/Activity Restrictions: Procedure: HIP HEMIARTHROPLASTY (Left: Hip) 02.25.[address] Downing-posterior precautions. Pt has history of parkinson's. Lower Extremity Weight Bearing Restrictions Left Lower Extremity Weight Bearing: Weight Bearing As Tolerated Subjective Subjective Subjective: Pt supine in bed upone arrival. agreeable to tx, slightly confused Pain Assessment Pain Assessment: 0-10 Pain Level: 8 [place] Pain Rating: Hurts whole lot Pain Location: Leg Pain Orientation: Left Objective Cognition Overall Orientation Status: Within Functional Limits Orientation Level: Oriented X4 Cognition Overall Cognitive Status: Exceptions Arousal/Alertness: Appears intact Following Commands: Follows one step commands with increased time;Follows one step commands with repetition Attention Span: Difficulty dividing attention;Difficulty attending to directions;Attends with cues to redirect Memory: Decreased recall of precautions;Decreased recall of recent events Safety Judgement: Decreased awareness of need for assistance;Decreased awareness of need for safety Problem Solving: Assistance required to generate solutions;Assistance required to identify errors made;Assistance required to correct errors made;Assistance required to implement solutions;Decreased awareness of errors Insights: Decreased awareness of deficits Initiation: Requires cues for some Sequencing: Requires cues for some Cognition Comment: Pt req. encouragement to participate in therapy. A provided inconsistent responses to questions at times Activities of Daily Living Lower Extremity Dressing Assistance Level: Maximum assistance Skilled Clinical Factors: Pt provided w/ banquet houseperson to greg pants. Req Max A and increased time to thread BLE. w/ min Ax2 to maintain standing balance while assembly instructions writer and RN pulled pants over hips. Pt req max cuing for sequencing of tasks & placement of banquet houseperson. Mobility Bed Mobility Overall Assistance Level: Maximum Assistance Additional Factors: Set-up;Verbal cues;Increased time to complete Supine to Sit Assistance Level: Maximum assistance Skilled Clinical Factors: A provided for BLE and trunk w/ max cuing for hand placement and increased time. CGA static seated balance at EOB w/ increased time and cuing for hand placement Scooting Assistance Level: Maximum assistance Skilled Clinical Factors: Increased time, and cuing for technique and hand placement, Pt attempts to complete Transfers Surface: From bed;Wheelchair Additional Factors: Set-up;Verbal cues;Increased time to complete;Hand placement cues Device: Walker Sit to Stand Assistance Level: Dependent;Requires x 2 assistance Skilled Clinical Factors: Mod A x2 w/ A from ITZ Krueger. max cuing for hand placement and sequencing. increased time tocomplete. Posterior lean noted, Pt able to correct w/ cuing Stand Pivot Assistance Level: Requires x 2 assistance;Dependent Skilled Clinical Factors: completed AM & PM: max A x2 for safety. completed w/ RW & increased time and cuing for sequencing & initiation. small shuffing steps noted w/ A for RW mgmt. OT Exercises Exercise Treatment: AM: Pt completed functional reaching exercise to increase IND w/ ADL tasks & overall strengthening w/ use of graded resistive clothes pins, placing them above head height. PM:Pt completed golf tees placement activity into target to increase IND w/ ADL/IADL and activity tolerance. Pt tolerated well & req increased time to complete activity. Resistive Exercises: Pt completed x20 exercised in all available planes w/ 2# free weight to increased IND w/ ADL/IADLs. Pt tolerated well & req increased RB w/ cuing for proper form. Assessment Assessment Activity Tolerance: Treatment limited secondary to decreased cognition;Patient limited by pain;Patient limited by fatigue;Patient limited by endurance Discharge Recommendations: Continue to assess pending progress Patient Education Education Education Given To: Patient Education Provided: Role of Therapy;Plan of Care;Precautions;Safety;ADL Function;Transfer Training;Energy Conservation Education Method: Demonstration;Verbal Barriers to Learning: Cognition Education Outcome: Continued education needed OT Equipment Recommendations Other: TBD - uncertain if pt can return to assisted living setting- he had walk in shower with seatand grab bars for shower and toilet. he has call alert. Safety Devices Safety Devices in place: Yes Type of devices: All fall risk precautions in place;Call light within reach;Chair alarm in place;Gait belt;Left in chair Goals Patient Goals Patient goals : pt Short Term Goals Time Frame for Short Term Goals: 1 week Short Term Goal 1: indep feeding and grooming Short Term Goal 2: Pt will complete UB ADLs with set up A and Good cognition Short Term Goal 3: max x 1 toileting- LE bathe bottom and pants over hips assist stand with BUE support on lynette stedy or least restrictive device. Short Term Goal 4: concha 4-5 min static stand with BUE support with mod A of 1. Short Term Goal 5: Pt will participate in 30+ minutes of therapeutic exercises/functional activities to increase safety and independence with self care and mobility Additional Goals?: Yes Short Term Goal 6: concha 10 reps shld, elbow AROM with mod resistance on R and min on L for BUE strengthening for use during mobility for adls. Short Term Goal 7: able to tolerate safely performing adl transfers with max A x 2 and RW 50 % of the time during therapy. Test Technician Goals Time Frame for Group Home Goals : by discharge Group Home Goal 1: mod x 1 LE bathe and dress (with cues, assist provided due to pt poor memory withL hip precautions. ) Test Technician Goal 2: mod x 1 toileting and adl transfers Test Technician Goal 3: concha 6-7 min stand, transfer, amb with BUE support on RW and mod A. Group Home Goal 4: concha 15 reps shld, elbow AROM with mod resistance on R and min on L for BUE strengthening for use during mobility for adls. Group Home Goal 5: increase MMT B elbow to 4+/5, L shld to 4-/5 and R shld to 4/5 to demo improved BUE strengthening for use during mobility for adls. Plan Occupational Therapy Plan Times Per Week: 900 min of PT/OT/ST Times Per Day: Twice a day Current Treatment Recommendations: Strengthening, Balance training, Functional mobility training, Endurance training, Pain management, Safety education & training, Patient/Caregiver education & training, Equipment evaluation, education, & procurement, Positioning, Self-Care / ADL, Co-Treatment, Cognitive/Perceptual training, Wheelchair mobility training OT Individual Minutes 03/11/25 0800 03/11/25 1500 OT Individual Minutes Time In 0801 1316 Time Out 0907 1352 Minutes 66 36 Cosigned by Flori Cruz at 03/12/2025 8:01 AM EDT * Lenore Vivas, ISHMAEL - 03/11/2025 1:27 PM EDT Speech Language Pathology [facility] Cognitive Treatment Note Date: 03/11/2025 Patient s Name: Leanna Nguyễn Diagnosis: Patient Active Problem List Diagnosis Code Left displaced femoral neck fracture ([facility]) S72.002A Fall W19.XXXA ANIYA (acute kidney injury) N17.9 Parkinson's disease ([facility]) G20.A1 Coronary artery disease involving [place] coronary artery of [place] heart without angina pectoris I25.10 Hip fracture, left, sequela S72.002S S/P hip hemiarthroplasty Z96.649 Closed fracture of left hip ([facility]) S72.002A Pain Rating: Pt. Denies pain. Cognitive Treatment Treatment time: ULTRA SOUND TECHNICIAN Individual Minutes Time In: 1247 Time Out: 1316 Minutes: 29 Subjective: [x] Alert [x] Cooperative [] Confused [] Agitated [] Lethargic Objective/Assessment: Attention: Pt. Easily distracted. Environment modified to reduce external distractions (door shut, television muted). Pt. Required frequent repetition of stimuli/task instructions t/o session. Pt. Occasionally responding to stimuli off-topic. Orientation: Pt. Oriented to person, place, month, year, and CLAUDIO independently. Pt. Disoriented to time of day (stating good morning as assembly instructions writer exited). Recall: Category inclusion: 4/10 increased to 9/10 with mod-max verbal/visual cues and repetition of stimuli. ST implementing self-repetition to aid in recall. Pt. Unable to recall what he had for lunch, stating veggies and fruit . Unable to elaborate any further. Problem Solving/Reasoning: State category (concrete): 3/7 increased to 6/7 with binary choices/min verbal cues. Add to category (concrete): 5/7 increased to 7/7 with mod-max verbal cues. Other: OT present as ST exited. Plan: [x] Continue ST services [] Discharge from ST: Discharge recommendations: [x] Further therapy recommended at discharge. [] No therapy recommended at discharge. Treatment completed by: Lenore Vivas M.S. CCC-ULTRA SOUND TECHNICIAN * Roxnane Edward MD - 03/11/2025 10:53 AM EDT IN-PATIENT SERVICE [facility] Internal Medicine Progress note Date: 03/11/2025 Patient name: Leanna Nguyễn Date of admission: 02/28/2025 3:30 PM Account: [id number] Date of : 1940 PCP: Pipe Jeffers MD Room: 2619/2619-01 Code Status: Full Code Physician Requesting Consult: Juan Ramon Lucero MD Reason for Consult: medical management Chief Complaint: Medical management History Obtained From: Patient medical record nursing staff History of Present Illness: Patient, has past medical history multiple medical problem, which include coronary artery disease status post CABG, CHF, hypothyroidism, hypertension, hyperlipidemia, pulmonary fibrosis, chronic kidney disease, Parkinson disease, dementia, patient presented to [facility] after a fall, he had left hip pain, found to have acute subcapital left femoral neck fracture, patient underwent left hip hemiarthroplasty on 02/25 While in hospital, patient had worsening creatinine, was evaluated by table worker, treated with IVfluids, torsemide was kept on hold, patient, creatinine improved to his baseline, Patient required Shell's catheter placement which was later removed Transferred to [facility] rehab unit for further management Past Medical History: History reviewed. No pertinent past medical history. Past Surgical History: Past Surgical History: Procedure Laterality Date HIP SURGERY Left 02/25/2025 HIP HEMIARTHROPLASTY performed by Ana Downing MD at [facility] OR Medications Prior to Admission: Prior to Admission medications Medication Sig Start Date End Date Taking? Authorizing Provider amLODIPine (NORVASC) 2.5 MG tablet Take 1 tablet by mouth daily Ruth Howe MD aspirin 81 MG chewable tablet Take 1 tablet by mouth daily Ruth Howe MD carbidopa-levodopa (SINEMET) 10-100 MG per tablet Take 1 tablet by mouth 3 times daily Ruth Howe MD cephALEXin (KEFLEX) 500 MG capsule Take 1 capsule by mouth 2 times daily Ruth Howe MD folic acid (FOLVITE) 400 MCG tablet Take 1 tablet by mouth daily Ruth Howe MD levothyroxine (SYNTHROID) 100 MCG tablet Take 1 tablet by mouth Daily Rtuh Howe MD liothyronine (CYTOMEL) 5 MCG tablet Take 1 tablet by mouth daily Ruth Howe MD memantine (NAMENDA) 10 MG tablet Take 1 tablet by mouth 2 times daily Ruth Howe MD Multiple Vitamins-Minerals (THERAPEUTIC MULTIVITAMIN-MINERALS) tablet Take 1 tablet by mouth daily Ruth Howe MD potassium chloride (KLOR-CON) 20 MEQ packet Take 10 mEq by mouth daily Ruth Howe MD sennosides-docusate sodium (SENOKOT-S) 8.6-50 MG tablet Take 1 tablet by mouth daily Ruth Howe MD sertraline (ZOLOFT) 25 MG tablet Take 1 tablet by mouth daily Ruth Howe MD tolterodine (DETROL) 1 MG tablet Take 1 tablet by mouth 2 times daily Ruth Howe MD torsemide (DEMADEX) 10 MG tablet Take 1 tablet by mouth daily Ruth Howe MD vitamin B-12 (CYANOCOBALAMIN) 500 MCG tablet Take 1 tablet by mouth daily Ruth Howe MD vitamin D 50 MCG (1999 MT) CAPS capsule Take 1 capsule by mouth daily Provider, MD Ruth Allergies: Patient has no known allergies. Social History: Tobacco: reports that he has never smoked. He has never been exposed to tobacco smoke. He has neverused smokeless tobacco. Alcohol: has no history on file for alcohol use. Drug Use: reports no history of drug use. Family History: No family history on file. Review of Systems: Positive and Negative as described in HPI. CONSTITUTIONAL: negative for fevers, chills, sweats, fatigue, weight loss HEENT: negative for vision, hearing changes, runny nose, throat pain RESPIRATORY: negative for shortness of breath, cough, congestion, wheezing. CARDIOVASCULAR: negative for chest pain, palpitations. GASTROINTESTINAL: negative for nausea, vomiting, diarrhea, constipation, change in bowel habits, abdominal pain GENITOURINARY: negative for difficulty of urination, burning with urination, frequency INTEGUMENT: negative for rash, skin lesions, easy bruising HEMATOLOGIC/LYMPHATIC: negative for swelling/edema ALLERGIC/IMMUNOLOGIC: negative for urticaria , itching ENDOCRINE: negative increase in drinking, increase in urination, hot or cold intolerance MUSCULOSKELETAL: Pain, left hip NEUROLOGICAL: negative for headaches, dizziness, lightheadedness, numbness, pain, tingling extremities BEHAVIOR/PSYCH: Physical Exam: BP (!) 142/64 Pulse 70 Temp 98.4 F (36.9 C) (Oral) Resp 18 Ht 1.854 m (6' 0.99 ) Wt 97 kg(213 lb 13.5 oz) SpO2 94% BMI 28.22 kg/m Temp (24hrs), Av.3 F (36.8 C), Min:98.1 F (36.7 C), Max:98.4 F (36.9 C) No results for input(s): POCGLU in the last 72 hours. No intake or output data in the 24 hours ending 03/11/25 1053 General Appearance: alert, well appearing, and in no acute distress, wheelchair-bound Mental status: oriented to person, place, and time with normal affect Head: normocephalic, atraumatic. Eye: no icterus, redness, pupils equal and reactive, extraocular eye movements intact, conjunctiva clear Ear: normal external ear, no discharge, hearing intact Nose: no drainage noted Mouth: mucous membranes moist Neck: supple, no carotid bruits, thyroid not palpable Lungs: Bilateral equal air entry, clear to ausculation, no wheezing, rales or rhonchi, normal effort Cardiovascular: normal rate, regular rhythm, no murmur, gallop, rub. Abdomen: Soft, nontender, nondistended, normal bowel sounds, no hepatomegaly or splenomegaly Neurologic: There are no new focal motor or sensory deficits, normal muscle tone and bulk, no abnormal sensation, normal speech, cranial nerves II through XII grossly intact Skin: No gross lesions, rashes, bruising or bleeding on exposed skin area Extremities: Postsurgical changes present left hip, mild edema in left leg Psych: Investigations: Laboratory Testing: No results found for this or any previous visit (from the past 24 hours). Consultations: IP CONSULT TO DIETITIAN IP CONSULT TO SOCIAL WORK IP CONSULT TO INTERNAL MEDICINE IP CONSULT TO NEPHROLOGY Assessment : Primary Problem Hip fracture, left, sequela Active Hospital Problems Diagnosis Date Noted S/P hip hemiarthroplasty [Z96.649] 03/01/2025 Closed fracture of left hip (HCC) [S72.002A] 03/01/2025 Hip fracture, left, sequela [S72.002S] 02/28/2025 Plan: Left hip fracture status post left hip hemiarthroplasty, on 02/25 Coronary artery disease status post CABG, on aspirin, not on statin, patient could not tell me whether he is allergic to statin or not, review of previous office visit notes, Lipitor is not mentionedin his home medication list, will discuss with close family, regarding previous documented statin allergies, patient, recently evaluated by loading unit operator, last LDL was 71 CHF, compensated Parkinson disease, follows closely with neurology as outpatient Dementia on Namenda Hypothyroidism on Synthroid and liothyronine , TSH tested recently is okay Chronic kidney disease, creatinine inproved to 1.8 , diuretics kept on hold, patient evaluated by table worker starting patient on heparin 5000 every 8 for DVT prophylaxis Under[address] CT of chest, concerning for pancreatic cyst, need outpatient evaluation by MRCP on nonemergent basis Roxanne Edward MD 03/11/2025 10:53 AM Copy sent to Pipe Doe MD Please note that this chart was generated using voice recognition [employer] dictation software. Although every effort was made to ensure the accuracy of this automated physical education professor, some errors in physical education professor may have occurred. * Ankush Padron MD - 03/11/2025 10:01 AM EDT Physical Medicine & Rehabilitation Progress Note Subjective: Patient is an 84-year-old male with left hip fracture s/p hemiarthroplasty. Patient is feeling well this AM , slept well , pain seem to be well controlled. He denies any otheracute concerns. Incision looks great , roosevelt to be removed today ROS: Denies fevers, chills, sweats. No chest pain, palpitations, lightheadedness. Denies coughing, wheezing or shortness of breath. Denies abdominal pain, nausea, diarrhea or constipation. No new areas of joint pain. Denies new areas of numbness or weakness. Denies new anxiety or depression issues. No new skin problems. Rehabilitation: PT: Bed Mobility Bed mobility Rolling to Right: Substantial/Maximal assistance (partial roll) Supine to Sit: 2 Person assistance;Substantial/Maximal assistance Scooting: Substantial/Maximal assistance Bed Mobility Comments: Bed flat, rails used Transfers Transfers Sit to Stand: 2 Person Assistance;Substantial/Maximal assistance Stand to Sit: 2 Person Assistance;Partial/Moderate assistance Bed to Chair: 2 Person Assistance;Substantial/Maximal assistance Stand Pivot Transfers: 2 Person Assistance;Substantial/Maximal assistance Comment: RW. Most transfers performed while assisting MYNOR Storm at end of his PM OT session w/family. Mobility Ambulation WB Status: WBAT L LE Ambulation Surface: Level tile;Ramp Device: Rolling Walker Other Apparatus: Wheelchair follow Assistance: Minimal assistance Quality of Gait: NBOS, step-to gait w/ short initial steps but improves to more reciprocal pattern as distance progresses, regresses to short steps w/ transitions, turns. Lifts RW to walk over threshold w/ near LOB; educated to let walker roll over same w/o acknowledgement. G awareness of obstaclesin path & negotiating around them w/o cues. Gait Deviations: Slow Wendy;Decreased step height;Decreased head and trunk rotation Distance: 283' (declined all suggestions of seated rest or standing rest breaks. Comments: Pt states he has less pain while standing/walking than in bed. [id number] providing w/c follow. Balance Balance Posture: Poor Sitting - Static: Poor (Posterior lean sitting EOB; requires Max support initially, then gradually able to sit upright, but requires assist to get feet on floor, cues to move hands to support (does not attempt to perform last 2 independently)) Sitting - Dynamic: Poor;- (EOB) Standing - Static: Poor (RW; posterior lean.) Standing - Dynamic: Poor;- (RW) PT Exercises PT Exercises Exercise Treatment: 10 min: Pt eventually agreed to walk in roche to play Dakim, but recognizes, w/cues, need to don pants first; Pt denies that clothing in closet is his ( these don't have my name inthem ) & refuses to wear them. Agreeable to hospital pants. Circulation/Endurance Exercises: Seated UB ergometer, 5 min. each forward and retro. Functional Mobility Circuit Training: Rolling & mobility to partially don pants (~90%); Pt screaming w/pain during movement. Extra time required to allow Pt to calm down. Sit <> stand x2, stand pivot transfers x2, all w/RW. Activity Tolerance Activity Tolerance Activity Tolerance: Treatment limited secondary to decreased cognition;Patient limited by pain;Treatment limited secondary to agitation Assessment Clinical Presentation: Pleasant & largely polite. Education Education Education Given To: Patient;Family Education Provided: Role of Therapy;Plan of Care Education Provided Comments: Educated regarding Pt participation and possible need for different therapy venue to allow longer stay/improved tolerance for therapy due to decreased intensity and longer stay. Acknowledging Pt's efforts to report pain. Education Method: Verbal Barriers to Learning: Cognition Education Outcome: Verbalized understanding;Continued education needed Family education Initiated OT Activities of Daily Living Mobility Bridging Assistance Level: Dependent Skilled Clinical Factors: pt dependent for supine to sit/sit to supine to and from surface of bed with LOWE providing pt with education on participation and pain management with P carry over by pt Roll Left Assistance Level: Dependent Sit to Supine Assistance Level: Dependent Supine to Sit Assistance Level: Dependent Skilled Clinical Factors: depedent with LLE to side of bed. dependent for hips to EOB and roll L trunk follow through. Scooting Assistance Level: Dependent Skilled Clinical Factors: With LOWE using heide pad to advance pt hips forward to EOB. OT Exercises Static Sitting Balance Exercises: Pt sat EOB for > 10 minutewith max A for stability dt posterior lean Assessment Assessment Activity Tolerance: Treatment limited secondary to decreased cognition;Patient limited by pain;Treatment limited secondary to agitation Discharge Recommendations: Continue to assess pending progress Patient Education Education Education Given To: Patient Education Provided: Mobility Training;Transfer Training;Fall Prevention Strategies Education Provided Comments: pt with memory deficits but benefits from repetiton of adl and mobility tasks and is given directions as needed for tasks. during standing, pt with posterior lean, ed pt to lean forward onto UE on RW, pt with limited improvement post cues. Education Method: Demonstration;Verbal Barriers to Learning: Cognition Education Outcome: Continued education needed OT Equipment Recommendations Equipment Needed: (CTA) Other: TBD - uncertain if pt can return to assisted living setting- he had walk in shower with seatand grab bars for shower and toilet. he has call alert. Safety Devices Safety Devices in place: Yes Type of devices: Call light within reach;Bed alarm in place;All fall risk precautions in place Family education Completed ST Objective/Assessment: Attention: Pt. Occasionally responding to stimuli off-topic. Pt. Easily distracted t/o session; environment modified to reduce distractions and increase sustained attention. Frequent redirection backto task required. Recall: Image retention following 10 min delay (fishing)- 90%. Problem Solving/Reasoning: ID problem and determine solution in pictured scenes- 70%, 90% c cues. Describe difference/similarity between 2 objects c 63%, 88% c cues Other: Call light left within reach. Plan: [x] Continue ST services [] Discharge from ST: Discharge recommendations: [x] Further therapy recommended at discharge. [] No therapy recommended at discharge. Objective: BP (!) 142/64 Pulse 70 Temp 98.4 F (36.9 C) (Oral) Resp 18 Ht 1.854 m (6' 0.99 ) Wt 97 kg(213 lb 13.5 oz) SpO2 94% BMI 28.22 kg/m GEN: well developed, well nourished, NAD HEENT: NCAT, EOM grossly intact, mucous membranes pink and moist CV: RRR, no murmurs, rubs or gallops PULM: CTAB, no rales or rhonchi. Respirations WNL and unlabored ABD: soft, ND, BS+ and equal NEURO: Alert. Sensation intact to light touch in the bilateral lower limbs. MSK: Strength 5/5 with bilateral ankle dorsiflexion and plantarflexion. SKIN: warm dry and intact with good turgor PSYCH: appropriately interactive. Affect WNL. Diagnostics: CBC: No results for input(s): WBC , RBC , HGB , HCT , MCV , RDW , PLT in the last 72 hours. BMP: Recent Labs 03/10/25 1002 NA 139 K 4.9 CL 103 CO2 25 BUN 34* CREATININE 1.8* GLUCOSE 102* BNP: No results for input(s): BNP in the last 72 hours. PT/INR: No results for input(s): PROTIME , INR in the last 72 hours. APTT: No results for input(s): APTT in the last 72 hours. CARDIAC ENZYMES: No results for input(s): CKMB , CKMBINDEX , TROPONINT in the last 72 hours. Invalid input(s): CKTOTAL;3 troponins FASTING LIPID PANEL: Lab Results Component Value Date CHOL 135 02/25/2025 HDL 53 02/25/2025 TRIG 57 02/25/2025 LIVER PROFILE: No results for input(s): AST , ALT , BILIDIR , BILITOT , ALKPHOS in the last 72 hours. Invalid input(s): ALB Current Medications: Current Facility-Administered Medications: oxyCODONE HCl (OXY-IR) immediate release tablet 10 mg, 10 mg, Oral, 2 times per day AND oxyCODONE HCl (OXY- IR) immediate release tablet 10 mg, 10 mg, Oral, Q4H PRN aspirin EC tablet 81 mg, 81 mg, Oral, Daily methocarbamol (ROBAXIN) tablet 500 mg, 500 mg, Oral, 4x Daily miconazole (MICOTIN) 2 % powder, , Topical, BID heparin (porcine) injection 5,000 Units, 5,000 Units, SubCUTAneous, 3 times per day polyethylene glycol (GLYCOLAX) packet 17 g, 17 g, Oral, Daily senna (SENOKOT) tablet 17.2 mg, 2 tablet, Oral, Daily PRN bisacodyl (DULCOLAX) suppository 10 mg, 10 mg, Rectal, Daily PRN acetaminophen (TYLENOL) tablet 650 mg, 650 mg, Oral, Q6H PRN OR [DISCONTINUED] acetaminophen (TYLENOL) suppository 650 mg, 650 mg, Rectal, Q6H PRN carbidopa-levodopa (SINEMET) 25-100 MG per tablet 1 tablet, 1 tablet, Oral, TID levothyroxine (SYNTHROID) tablet 100 mcg, 100 mcg, Oral, Daily liothyronine (CYTOMEL) tablet 5 mcg, 5 mcg, Oral, Daily melatonin tablet 3 mg, 3 mg, Oral, Nightly PRN memantine (NAMENDA) tablet 10 mg, 10 mg, Oral, BID ondansetron (ZOFRAN-ODT) disintegrating tablet 4 mg, 4 mg, Oral, Q8H PRN OR [DISCONTINUED] ondansetron (ZOFRAN) injection 4 mg, 4 mg, IntraVENous, Q6H PRN sertraline (ZOLOFT) tablet 25 mg, 25 mg, Oral, Daily Reviewed notes from internal medicine, OT, ST. Impression/Plan: Impaired ADLs, gait, and mobility due to: Left femoral neck fracture secondary to fall s/p left hip hemiarthroplasty: surgery 02/[address] Downing. PT/OT for gait, mobility, strengthening, endurance, ADLs, and self care - 900 minute plan. Pain control with PRN Tylenol, PRN Oxycodone - scheduled doses BID before therapies on 03/09. Okay to remove roosevelt on 03/11 if incision looks okay, per Dr. Downing. Muscle spasms: Robaxin 500 mg 4 times daily started 03/05. Parkinson's Disease: on sinemet Dementia: on Namenda. Venous stasis dermatitis: Complains of pain with compression stockings, no signs or symptoms of infection/cellulitis. Continue to monitor. Essential hypertension: Per history, not currently on antihypertensive medications. Blood pressure well-controlled. Continue to monitor. Hyperlipidemia: lipid panel reviewed by Cardiology in acute care, monitoring off of cholesterol medications for now. Coronary artery disease: CABG in 2010. On Aspirin CHF: Torsemide held in setting of hypokalemia, not continued at discharge from acute care - nephrology discontinued 03/07 after restarting it. Compensated. Pulmonary fibrosis ANIYA on CKD stage IIIb: Baseline Cr ~2.1. Creatinine 1.8 on 03/10. Nephrology following - discontinuedtorsemide. Continue to monitor with periodic labs. Hypothyroidism: on synthroid, on liothyronine. TSH 1.91 02/25. Depression: on Zoloft Possible pancreatic cysts: Identified on chest CT, consider outpatient evaluation for MRCP on nonemergent basis. Bowel Management: Miralax daily, senokot prn, dulcolax prn. DVT Prophylaxis: SCD's while in bed, RIDDHI's during the day, and ASA 81 mg BID per Ortho protocol Internal Medicine for medical management Follow up: PCP 1-2 weeks, Orthopedic Surgery - Dr. Downing * Clint Scales MD - 03/10/2025 4:35 PM EDT IN-PATIENT SERVICE [facility] Internal Medicine Progress note Date: 03/10/2025 Patient name: Leanna Nguyễn Date of admission: 02/28/2025 3:30 PM Account: [id number] Date of : 1940 PCP: Pipe Jeffers MD Room: [facility]92619- Code Status: Full Code Physician Requesting Consult: Juan Ramon Lucero MD Reason for Consult: medical management Chief Complaint: Medical management History Obtained From: Patient medical record nursing staff History of Present Illness: Patient, has past medical history multiple medical problem, which include coronary artery disease status post CABG, CHF, hypothyroidism, hypertension, hyperlipidemia, pulmonary fibrosis, chronic kidney disease, Parkinson disease, dementia, patient presented to [facility] after a fall, he had left hip pain, found to have acute subcapital left femoral neck fracture, patient underwent left hip hemiarthroplasty on 02/25 While in hospital, patient had worsening creatinine, was evaluated by table worker, treated with IVfluids, torsemide was kept on hold, patient, creatinine improved to his baseline, Patient required Shell's catheter placement which was later removed Transferred to [place], acute rehab unit for further management Past Medical History: History reviewed. No pertinent past medical history. Past Surgical History: Past Surgical History: Procedure Laterality Date HIP SURGERY Left 02/25/2025 HIP HEMIARTHROPLASTY performed by Ana Downing MD at [facility] OR Medications Prior to Admission: Prior to Admission medications Medication Sig Start Date End Date Taking? Authorizing Provider amLODIPine (NORVASC) 2.5 MG tablet Take 1 tablet by mouth daily Ruth Howe MD aspirin 81 MG chewable tablet Take 1 tablet by mouth daily Ruth Howe MD carbidopa-levodopa (SINEMET) 10-100 MG per tablet Take 1 tablet by mouth 3 times daily Ruth Howe MD cephALEXin (KEFLEX) 500 MG capsule Take 1 capsule by mouth 2 times daily Ruth Howe MD folic acid (FOLVITE) 400 MCG tablet Take 1 tablet by mouth daily Ruth Howe MD levothyroxine (SYNTHROID) 100 MCG tablet Take 1 tablet by mouth Daily Ruth Howe MD liothyronine (CYTOMEL) 5 MCG tablet Take 1 tablet by mouth daily Ruth Howe MD memantine (NAMENDA) 10 MG tablet Take 1 tablet by mouth 2 times daily Ruth Howe MD Multiple Vitamins-Minerals (THERAPEUTIC MULTIVITAMIN-MINERALS) tablet Take 1 tablet by mouth daily Ruth Howe MD potassium chloride (KLOR-CON) 20 MEQ packet Take 10 mEq by mouth daily Ruth Howe MD sennosides-docusate sodium (SENOKOT-S) 8.6-50 MG tablet Take 1 tablet by mouth daily Ruth Howe MD sertraline (ZOLOFT) 25 MG tablet Take 1 tablet by mouth daily Ruth Howe MD tolterodine (DETROL) 1 MG tablet Take 1 tablet by mouth 2 times daily Ruth Howe MD torsemide (DEMADEX) 10 MG tablet Take 1 tablet by mouth daily Ruth Howe MD vitamin B-12 (CYANOCOBALAMIN) 500 MCG tablet Take 1 tablet by mouth daily Ruth Howe MD vitamin D 50 MCG (1999) CAPS capsule Take 1 capsule by mouth daily ProviderRuth MD Allergies: Patient has no known allergies. Social History: Tobacco: reports that he has never smoked. He has never been exposed to tobacco smoke. He has neverused smokeless tobacco. Alcohol: has no history on file for alcohol use. Drug Use: reports no history of drug use. Family History: No family history on file. Review of Systems: Positive and Negative as described in HPI. CONSTITUTIONAL: negative for fevers, chills, sweats, fatigue, weight loss HEENT: negative for vision, hearing changes, runny nose, throat pain RESPIRATORY: negative for shortness of breath, cough, congestion, wheezing. CARDIOVASCULAR: negative for chest pain, palpitations. GASTROINTESTINAL: negative for nausea, vomiting, diarrhea, constipation, change in bowel habits, abdominal pain GENITOURINARY: negative for difficulty of urination, burning with urination, frequency INTEGUMENT: negative for rash, skin lesions, easy bruising HEMATOLOGIC/LYMPHATIC: negative for swelling/edema ALLERGIC/IMMUNOLOGIC: negative for urticaria , itching ENDOCRINE: negative increase in drinking, increase in urination, hot or cold intolerance MUSCULOSKELETAL: Pain, left hip NEUROLOGICAL: negative for headaches, dizziness, lightheadedness, numbness, pain, tingling extremities BEHAVIOR/PSYCH: Physical Exam: BP (!) 150/66 Pulse 57 Temp 98.1 F (36.7 C) (Oral) Resp 18 Ht 1.854 m (6' 0.99 ) Wt 97 kg(213 lb 13.5 oz) SpO2 100% BMI 28.22 kg/m Temp (24hrs), Av.2 F (36.8 C), Min:98.1 F (36.7 C), Max:98.2 F (36.8 C) No results for input(s): POCGLU in the last 72 hours. No intake or output data in the 24 hours ending 03/10/25 1636 General Appearance: alert, well appearing, and in no acute distress, wheelchair-bound Mental status: oriented to person, place, and time with normal affect Head: normocephalic, atraumatic. Eye: no icterus, redness, pupils equal and reactive, extraocular eye movements intact, conjunctiva clear Ear: normal external ear, no discharge, hearing intact Nose: no drainage noted Mouth: mucous membranes moist Neck: supple, no carotid bruits, thyroid not palpable Lungs: Bilateral equal air entry, clear to ausculation, no wheezing, rales or rhonchi, normal effort Cardiovascular: normal rate, regular rhythm, no murmur, gallop, rub. Abdomen: Soft, nontender, nondistended, normal bowel sounds, no hepatomegaly or splenomegaly Neurologic: There are no new focal motor or sensory deficits, normal muscle tone and bulk, no abnormal sensation, normal speech, cranial nerves II through XII grossly intact Skin: No gross lesions, rashes, bruising or bleeding on exposed skin area Extremities: Postsurgical changes present left hip, mild edema in left leg Psych: Investigations: Laboratory Testing: Recent Results (from the past 24 hours) Basic Metabolic Panel w/ Reflex to MG Collection Time: 03/10/25 10:02 AM Result Value Ref Range Sodium 139 136 - 145 mmol/L Potassium 4.9 3.7 - 5.3 mmol/L Chloride 103 98 - 107 mmol/L CO2 25 20 - 31 mmol/L Anion Gap 11 9 - 16 mmol/L Glucose 102 (H) 74 - 99 mg/dL BUN 34 (H) 8 - 23 mg/dL Creatinine 1.8 (H) 0.7 - 1.2 mg/dL Est, Glom Filt Rate 36 (L) >60 mL/min/1.73m2 Calcium 9.4 8.6 - 10.4 mg/dL Consultations: IP CONSULT TO DIETITIAN IP CONSULT TO SOCIAL WORK IP CONSULT TO INTERNAL MEDICINE IP CONSULT TO NEPHROLOGY Assessment : Primary Problem Hip fracture, left, sequela Active Hospital Problems Diagnosis Date Noted S/P hip hemiarthroplasty [Z96.649] 03/01/2025 Closed fracture of left hip (HCC) [S72.002A] 03/01/2025 Hip fracture, left, sequela [S72.002S] 02/28/2025 Plan: Left hip fracture status post left hip hemiarthroplasty, on 02/25 Coronary artery disease status post CABG, on aspirin, not on statin, patient could not tell me whether he is allergic to statin or not, review of previous office visit notes, Lipitor is not mentionedin his home medication list, will discuss with close family, regarding previous documented statin allergies, patient, recently evaluated by loading unit operator, last LDL was 71 CHF, compensated Parkinson disease, follows closely with neurology as outpatient Dementia on Namenda Hypothyroidism on Synthroid and liothyronine , TSH tested recently is okay Chronic kidney disease, creatinine inproved to 1.8 , diuretics kept on hold, patient evaluated by table worker starting patient on heparin 5000 every 8 for DVT prophylaxis Underwent CT of chest, concerning for pancreatic cyst, need outpatient evaluation by MRCP on nonemergent basis Clint Scales MD 03/10/2025 4:36 PM Copy sent to Pipe Doe MD Please note that this chart was generated using voice recognition [employer] dictation software. Although every effort was made to ensure the accuracy of this automated physical education professor, some errors in physical education professor may have occurred. * Emeterio Littlejohn OTA - 03/10/2025 3:18 PM EDT [facility] Occupational Therapy Daily Treatment Note Date: 03/10/25 Patient Name: Leanna Nguyễn Room: 2619/2619-01 Account: [id number] : 1940 (84 y.o.) Gender: male Diagnosis: left femoral neck fracture following fall. L hip Hemiarthroplasty , parkinson's. Additional Pertinent Hx: Leanna Nguyễn is a 84 y.o. right-handed male admitted to the [facility] on 02/28/2025. He was originally admitted to [facility] on 02/25/2025 for left femoral neck fracture following fall. 84-year-old male with a history of Parkinson's, CHF, coronary artery disease, CABG, hyperlipidemia, hypertension, altered mental status, syncope and collapse, pulmonary fibrosis, CKD and dementia presenting with hip pain after fall. Patient is disoriented at baseline. Cardiology 02/26-aspirin resumed, torsemide held in setting of hypokalemia. Internal medicine-left femoral neck fracture status post left hip hemiarthroplasty 02/25 lives in assisted living Ortho-displaced femoral neck fracture status post left hip hemiarthroplasty on 02/25 Nephrology- patientnoted to have ANIYA on CKD postoperative, UA and renal ultrasound unremarkable. Improved with gentle rehydration. Palliative care brother has power of civil attorney no , no children parents are deceasedStevnanette is the only sibling and next of kin reports that his daughter Kimberly is secondary, brother feels he can make his own decision, currently full code Treatment Diagnosis: impaired self care status d/t L hip hemiarthroplasty Past Medical History: has no past medical history on file. Past Surgical History: has a past surgical history that includes hip surgery (Left, 02/25/2025). Restrictions Restrictions/Precautions Restrictions/Precautions: Bed Alarm, Weight Bearing, Fall Risk, Surgical Protocols (WBAT LLE, posterior hip precautions) Activity Level: Up as Tolerated, Up with Assist Required Braces or Orthoses?: No Implants Present? : Metal implants (L blanka arthroplasty) Position Activity Restriction Hip Precautions: Posterior hip precautions, No hip flexion > 90 degrees, No sudden or extreme motions, No hip internal rotation, No hip external rotation, No ADduction Other Position/Activity Restrictions: Procedure: HIP HEMIARTHROPLASTY (Left: Hip) 02.25.[address] Downing-posterior precautions. Pt has history of parkinson's. Lower Extremity Weight Bearing Restrictions Left Lower Extremity Weight Bearing: Weight Bearing As Tolerated Vitals Subjective Subjective Subjective: Pt supine in bed when LOWE arrived. Objective Cognition Overall Orientation Status: Within Functional Limits Orientation Level: Oriented to person;Disoriented to place;Disoriented to time;Disoriented to situation Cognition Overall Cognitive Status: Exceptions Arousal/Alertness: Appears intact (pt alert throughout am and pm.) Following Commands: Follows one step commands consistently Attention Span: Difficulty dividing attention Memory: Decreased recall of recent events;Decreased recall of precautions;Decreased short term memory Safety Judgement: Decreased awareness of need for assistance;Decreased awareness of need for safety Problem Solving: Assistance required to generate solutions;Assistance required to identify errors made;Assistance required to correct errors made;Assistance required to implement solutions;Decreased awareness of errors Insights: Not aware of deficits Initiation: Requires cues for some Sequencing: Requires cues for some Cognition Comment: good attention to task, sequencing and initiation with grooming, UE bathe and dress in am upon 1st getting up from bed to w/c and with shaving in pm. Activities of Daily Living Mobility Bridging Assistance Level: Dependent Skilled Clinical Factors: pt dependent for supine to sit/sit to supine to and from surface of bed with LOWE providing pt with education on participation and pain management with P carry over by pt Roll Left Assistance Level: Dependent Sit to Supine Assistance Level: Dependent Supine to Sit Assistance Level: Dependent Skilled Clinical Factors: depedent with LLE to side of bed. dependent for hips to EOB and roll L trunk follow through. Scooting Assistance Level: Dependent Skilled Clinical Factors: With LOWE using heide pad to advance pt hips forward to EOB. OT Exercises Static Sitting Balance Exercises: Pt sat EOB for > 10 minutewith max A for stability dt posterior lean Assessment Assessment Activity Tolerance: Treatment limited secondary to decreased cognition;Patient limited by pain;Treatment limited secondary to agitation Discharge Recommendations: Continue to assess pending progress Patient Education Education Education Given To: Patient Education Provided: Mobility Training;Transfer Training;Fall Prevention Strategies Education Provided Comments: pt with memory deficits but benefits from repetiton of adl and mobility tasks and is given directions as needed for tasks. during standing, pt with posterior lean, ed pt to lean forward onto UE on RW, pt with limited improvement post cues. Education Method: Demonstration;Verbal Barriers to Learning: Cognition Education Outcome: Continued education needed OT Equipment Recommendations Equipment Needed: (CTA) Other: TBD - uncertain if pt can return to assisted living setting- he had walk in shower with seatand grab bars for shower and toilet. he has call alert. Safety Devices Safety Devices in place: Yes Type of devices: Call light within reach;Bed alarm in place;All fall risk precautions in place Family education Completed Goals Patient Goals Patient goals : pt Short Term Goals Time Frame for Short Term Goals: 1 week Short Term Goal 1: indep feeding and grooming Short Term Goal 2: Pt will complete UB ADLs with set up A and Good cognition Short Term Goal 3: max x 1 toileting- LE bathe bottom and pants over hips assist stand with BUE support on lynette stedy or least restrictive device. Short Term Goal 4: concha 4-5 min static stand with BUE support with mod A of 1. Short Term Goal 5: Pt will participate in 30+ minutes of therapeutic exercises/functional activities to increase safety and independence with self care and mobility Additional Goals?: Yes Short Term Goal 6: concha 10 reps shld, elbow AROM with mod resistance on R and min on L for BUE strengthening for use during mobility for adls. Short Term Goal 7: able to tolerate safely performing adl transfers with max A x 2 and RW 50 % of the time during therapy. Group Home Goals Time Frame for Group Home Goals : by discharge Group Home Goal 1: mod x 1 LE bathe and dress (with cues, assist provided due to pt poor memory withL hip precautions. ) Group Home Goal 2: mod x 1 toileting and adl transfers Group Home Goal 3: concha 6-7 min stand, transfer, amb with BUE support on RW and mod A. Test Technician Goal 4: concha 15 reps shld, elbow AROM with mod resistance on R and min on L for BUE strengthening for use during mobility for adls. Group Home Goal 5: increase MMT B elbow to 4+/5, L shld to 4-/5 and R shld to 4/5 to demo improved BUE strengthening for use during mobility for adls. Plan Occupational Therapy Plan Times Per Week: 900 min of PT/OT/ST Times Per Day: Twice a day Current Treatment Recommendations: Strengthening, Balance training, Functional mobility training, Endurance training, Pain management, Safety education & training, Patient/Caregiver education & training, Equipment evaluation, education, & procurement, Positioning, Self-Care / ADL, Co-Treatment, Cognitive/Perceptual training, Wheelchair mobility training 03/10/25 0800 03/10/25 0817 OT Individual Minutes Time In 0800 1321 Time Out 0831 1355 Minutes 31 34 Minute Variance Variance 25 -- Reason Refusal -- Cosigned by Jayde Thompson OT at 03/10/2025 4:30 PM EDT * Bela Roe, ISHMAEL - 03/10/2025 11:38 AM EDT Speech Language Pathology [facility] Cognitive Treatment Note Date: 03/10/2025 Patient s Name: Leanna Nguyễn Diagnosis: Patient Active Problem List Diagnosis Code Left displaced femoral neck fracture ([facility]) S72.002A Fall W19.XXXA ANIYA (acute kidney injury) N17.9 Parkinson's disease ([facility]) G20.A1 Coronary artery disease involving [place] coronary artery of [place] heart without angina pectoris I25.10 Hip fracture, left, sequela S72.002S S/P hip hemiarthroplasty Z96.649 Closed fracture of left hip ([facility]) S72.002A Pain Rating: Pt. Denies Cognitive Treatment Treatment time: ULTRA SOUND TECHNICIAN Individual Minutes Time In: 0930 Time Out: 1000 Minutes: 30 Subjective: [x] Alert [x] Cooperative [] Confused [] Agitated [] Lethargic Objective/Assessment: Attention: Pt. Occasionally responding to stimuli off-topic. Pt. Easily distracted t/o session; environment modified to reduce distractions and increase sustained attention. Frequent redirection backto task required. Recall: Image retention following 10 min delay (fishing)- 90%. Problem Solving/Reasoning: ID problem and determine solution in pictured scenes- 70%, 90% c cues. Describe difference/similarity between 2 objects c 63%, 88% c cues Other: Call light left within reach. Plan: [x] Continue ST services [] Discharge from ST: Discharge recommendations: [x] Further therapy recommended at discharge. [] No therapy recommended at discharge. Treatment completed by: Bela Roe M.A.CCC/ULTRA SOUND TECHNICIAN * Ella Arzola MD - 03/10/2025 11:20 AM EDT NEPHROLOGY PROGRESS NOTE Patient : Leanna Nguyễn; 84 y.o. Location: 2619/2619-01 Attending: Juan Ramon Lucero MD Admit Date: 02/28/2025 Hospital Day: 10 Reason for consultation: Management of acute kidney injury superimposed on chronic kidney disease stage IIIb. Requesting physician: Juan Ramon Lucero MD. Interval history: Patient does not have any acute complaints today. He is nonoliguric and is hemodynamically stable. Pain control is adequate. Laboratory study results were reviewed. History of Present Illness: This is a 84 y.o. male Patient with past medical history of atherosclerotic coronary artery diseasestatus post CABG, history of hyperlipidemia, essential hypertension, hypothyroidism, Parkinson's disease dementia with baseline disorientation former smoker, history of pulmonary fibrosis mild bilateral cardiac carotid artery disease, CKD stage III. Patient presented to [facility] on 02/25/2025 with complaints of left hip pain after he recently sustained a fall, patient denies dizziness nausea vomiting chest pain X-ray showed displaced femoral neck fracture of left hip, patient underwent left hip hemiarthroplasty on 02/25/2025 Patient serum creatinine on admission 1 on 02/25/2025 noted with 2.8 mg/dL and therefore nephrology was consulted, during the hospital stay kidney function improved to 1.8 mg/dL on 02/27/2025, patient was discharged to acute rehab. Nephrology was consulted to follow for ANIYA on CKD. Patient seen and examined at acute rehab no acute events patient is tired and exhausted after the physical therapy laying comfortably not in acute distress Current Medications: oxyCODONE HCl (OXY-IR) immediate release tablet 10 mg, 2 times per day And oxyCODONE HCl (OXY-IR) immediate release tablet 10 mg, Q4H PRN aspirin EC tablet 81 mg, Daily methocarbamol (ROBAXIN) tablet 500 mg, 4x Daily miconazole (MICOTIN) 2 % powder, BID heparin (porcine) injection 5,000 Units, 3 times per day polyethylene glycol (GLYCOLAX) packet 17 g, Daily senna (SENOKOT) tablet 17.2 mg, Daily PRN bisacodyl (DULCOLAX) suppository 10 mg, Daily PRN acetaminophen (TYLENOL) tablet 650 mg, Q6H PRN carbidopa-levodopa (SINEMET) 25-100 MG per tablet 1 tablet, TID levothyroxine (SYNTHROID) tablet 100 mcg, Daily liothyronine (CYTOMEL) tablet 5 mcg, Daily melatonin tablet 3 mg, Nightly PRN memantine (NAMENDA) tablet 10 mg, BID ondansetron (ZOFRAN-ODT) disintegrating tablet 4 mg, Q8H PRN sertraline (ZOLOFT) tablet 25 mg, Daily Objective: CURRENT TEMPERATURE: Temp: 98.1 F (36.7 C) MAXIMUM TEMPERATURE OVER 24HRS: Temp (24hrs), Av.2 F (36.8 C), Min:98.1 F (36.7 C), Max:98.2 F (36.8 C) CURRENT RESPIRATORY RATE: Respirations: 18 CURRENT PULSE: Pulse: 57 CURRENT BLOOD PRESSURE: BP: (!) 150/66 24HR BLOOD PRESSURE RANGE: Systolic (24hrs), Av , Min:121 , Max:150 ; Diastolic (24hrs), Av, Min:52, Max:66 24HR INTAKE/OUTPUT: Intake/Output Summary (Last 24 hours) at 03/10/2025 1120 Last data filed at 03/09/2025 1200 Gross per 24 hour Intake 240 ml Output -- Net 240 ml Physical Exam: GENERAL APPEARANCE: Comfortable not in acute distress HEAD: normocephalic and atraumatic. NECK: Supple with no JVD CARDIAC: Normal S1 and S2. No S3, S4 or murmurs. Rhythm is regular. LUNGS: Clear to auscultation without rales, rhonchi, wheezing or diminished breath sounds. ABDOMEN: Soft with no palpable organomegaly. Normal bowel sounds. MUSKULOSKELETAL: Adequately aligned spine. No joint erythema or tenderness. EXTREMITIES: No edema. Peripheral pulses intact. NEURO: Awake and alert; no focal neurologic deficits. Labs: CBC: Recent Labs 03/08/25 0802 WBC 7.7 RBC 3.90* HGB 11.2* HCT 37.2* MCV 95.4 MCH 28.7 MCHC 30.1* RDW 14.1 PLT 231 MPV 9.5 BMP: Recent Labs 03/08/25 0802 03/10/25 1002 NA 138 139 K 4.3 4.9 CL 102 103 CO2 23 25 BUN 41* 34* CREATININE 2.0* 1.8* GLUCOSE 127* 102* CALCIUM 9.1 9.4 Assessment/plan: 1. Acute kidney injury superimposed on chronic kidney disease stage IIIb - consistent with prerenalazotemia. Renal function has improved with serum creatinine down to 1.8 mg/dL today. Plan: Avoid nephrotoxic agents. Monitor urine output closely. Basic metabolic profile daily. 2. Systemic hypertension - blood pressure is adequately controlled. 3. Fall from height with displaced left femoral neck fracture - s/p left hip hemiarthroplasty on 02/25/2025. Pain control is adequate. Prognosis is guarded. * Megan Thompson MD - 03/10/2025 9:16 AM EDT Physical Medicine & Rehabilitation Progress Note Subjective: Patient is an 84-year-old male with left hip fracture s/p hemiarthroplasty. He reports being upset today because he would like to return to his assisted living facility at discharge. Discussed that he is requiring more assistance than they can provide at this time. Family coming to observe therapies this afternoon. He notes some pain in the left hip. He denies any other acute concerns. ROS: Denies fevers, chills, sweats. No chest pain, palpitations, lightheadedness. Denies coughing, wheezing or shortness of breath. Denies abdominal pain, nausea, diarrhea or constipation. No new areas of joint pain. Denies new areas of numbness or weakness. Denies new anxiety or depression issues. No new skin problems. Rehabilitation: PT: Bed mobility Rolling to Left: 2 Person assistance, Substantial/Maximal assistance Rolling to Right: Substantial/Maximal assistance (partial roll) Supine to Sit: 2 Person assistance, Substantial/Maximal assistance Sit to Supine: Substantial/Maximal assistance, 2 Person assistance Scooting: Substantial/Maximal assistance Bed Mobility Comments: Bed flat, rails used Transfers Sit to Stand: 2 Person Assistance, Substantial/Maximal assistance Stand to Sit: 2 Person Assistance, Partial/Moderate assistance Bed to Chair: 2 Person Assistance, Substantial/Maximal assistance Stand Pivot Transfers: 2 Person Assistance, Substantial/Maximal assistance Comment: RW. Most transfers performed while assisting MYNOR Storm at end of his PM OT session w/family. Ambulation WB Status: WBAT L LE Ambulation Surface: Level tile, Ramp Device: Rolling Walker Other Apparatus: Wheelchair follow Assistance: Minimal assistance Quality of Gait: NBOS, step-to gait w/ short initial steps but improves to more reciprocal pattern as distance progresses, regresses to short steps w/ transitions, turns. Lifts RW to walk over threshold w/ near LOB; educated to let walker roll over same w/o acknowledgement. G awareness of obstaclesin path & negotiating around them w/o cues. Gait Deviations: Slow Wendy, Decreased step height, Decreased head and trunk rotation Distance: 283' (declined all suggestions of seated rest or standing rest breaks. Comments: Pt states he has less pain while standing/walking than in bed. [id number] providing w/c follow. More Ambulation?: No OT: Feeding: Setup Grooming: Supervision Grooming Skilled Clinical Factors: brush teeth, wash face seated in w/c up to sink. UE Bathing: Supervision UE Bathing Skilled Clinical Factors: seated in w/c up to sink. LE Bathing: Dependent/Total LE Bathing Skilled Clinical Factors: TA x 2 to stand with RW and wash ronit, bottom. seated- pt ableto wash thighs with set up, TA distally. ed pt how far he is allowed to bend to wash LE. pt had difficulty understanding and following this so OT had him hand her the washcloth to provide assist to wash distal LE to keep L hip precautions. UE Dressing: Minimal assistance UE Dressing Skilled Clinical Factors: t shirt. assist needed to pull down shirt in back- did not respond to cues. LE Dressing: Dependent/Total LE Dressing Skilled Clinical Factors: TA don pants over feet, TA x 2 to don pullups, pants over hips stand with lynette mauricio. Putting On/Taking Off Footwear: Dependent/Total Putting On/Taking Off Footwear Skilled Clinical Factors: TA don teds and slipper socks. Toileting: Dependent/Total Toileting Skilled Clinical Factors: TA x 2 stand with RW. Toilet Transfers Equipment Used: Grab bars Toilet Transfer: 2 Person assistance, Dependent/Total Toilet Transfers Comments: max x 2 stand pivot transfer with RW w/c to toilet with grab bars, TA x 2 stand for toileting with RW, then TA x 2 stand with lynette mauricio for transfer off toilet to w/c, then BSC obtained for over the toilet, due to pt max fatigued with mobility and higher surface will be helpful. plan communicated to nsg is lynette marin 2. SPEECH: Subjective: [x] Alert [x] Cooperative [] Confused [] Agitated [] Lethargic Objective/Assessment: Attention: Pt. Occasionally responding to stimuli off-topic. Pt. Easily distracted t/o session; environment modified to reduce distractions and increase sustained attention. Frequent redirection backto task required. Recall: Image retention following 10 min delay (fishing)- 90%. Problem Solving/Reasoning: ID problem and determine solution in pictured scenes- 70%, 90% c cues. Describe difference/similarity between 2 objects c 63%, 88% c cues Other: Call light left within reach. Objective: BP (!) 150/66 Pulse 57 Temp 98.1 F (36.7 C) (Oral) Resp 18 Ht 1.854 m (6' 0.99 ) Wt 97 kg(213 lb 13.5 oz) SpO2 100% BMI 28.22 kg/m GEN: well developed, well nourished, NAD HEENT: NCAT, EOM grossly intact, mucous membranes pink and moist CV: RRR, no murmurs, rubs or gallops PULM: CTAB, no rales or rhonchi. Respirations WNL and unlabored ABD: soft, ND, BS+ and equal NEURO: Alert. Sensation intact to light touch in the bilateral lower limbs. MSK: Strength 5/5 with bilateral ankle dorsiflexion and plantarflexion. SKIN: warm dry and intact with good turgor PSYCH: appropriately interactive. Affect WNL. Diagnostics: CBC: Recent Labs 03/08/25 0802 WBC 7.7 RBC 3.90* HGB 11.2* HCT 37.2* MCV 95.4 RDW 14.1 PLT 231 BMP: Recent Labs 03/08/25 0802 03/10/25 1002 NA 138 139 K 4.3 4.9 CL 102 103 CO2 23 25 BUN 41* 34* CREATININE 2.0* 1.8* GLUCOSE 127* 102* BNP: No results for input(s): BNP in the last 72 hours. PT/INR: No results for input(s): PROTIME , INR in the last 72 hours. APTT: No results for input(s): APTT in the last 72 hours. CARDIAC ENZYMES: No results for input(s): CKMB , CKMBINDEX , TROPONINT in the last 72 hours. Invalid input(s): CKTOTAL;3 troponins FASTING LIPID PANEL: Lab Results Component Value Date CHOL 135 02/25/2025 HDL 53 02/25/2025 TRIG 57 02/25/2025 LIVER PROFILE: No results for input(s): AST , ALT , BILIDIR , BILITOT , ALKPHOS in the last 72 hours. Invalid input(s): ALB Current Medications: Current Facility-Administered Medications: oxyCODONE HCl (OXY-IR) immediate release tablet 10 mg, 10 mg, Oral, 2 times per day AND oxyCODONE HCl (OXY- IR) immediate release tablet 10 mg, 10 mg, Oral, Q4H PRN aspirin EC tablet 81 mg, 81 mg, Oral, Daily methocarbamol (ROBAXIN) tablet 500 mg, 500 mg, Oral, 4x Daily miconazole (MICOTIN) 2 % powder, , Topical, BID heparin (porcine) injection 5,000 Units, 5,000 Units, SubCUTAneous, 3 times per day polyethylene glycol (GLYCOLAX) packet 17 g, 17 g, Oral, Daily senna (SENOKOT) tablet 17.2 mg, 2 tablet, Oral, Daily PRN bisacodyl (DULCOLAX) suppository 10 mg, 10 mg, Rectal, Daily PRN acetaminophen (TYLENOL) tablet 650 mg, 650 mg, Oral, Q6H PRN OR [DISCONTINUED] acetaminophen (TYLENOL) suppository 650 mg, 650 mg, Rectal, Q6H PRN carbidopa-levodopa (SINEMET) 25-100 MG per tablet 1 tablet, 1 tablet, Oral, TID levothyroxine (SYNTHROID) tablet 100 mcg, 100 mcg, Oral, Daily liothyronine (CYTOMEL) tablet 5 mcg, 5 mcg, Oral, Daily melatonin tablet 3 mg, 3 mg, Oral, Nightly PRN memantine (NAMENDA) tablet 10 mg, 10 mg, Oral, BID ondansetron (ZOFRAN-ODT) disintegrating tablet 4 mg, 4 mg, Oral, Q8H PRN OR [DISCONTINUED] ondansetron (ZOFRAN) injection 4 mg, 4 mg, IntraVENous, Q6H PRN sertraline (ZOLOFT) tablet 25 mg, 25 mg, Oral, Daily Reviewed notes from internal medicine, OT, ST. Impression/Plan: Impaired ADLs, gait, and mobility due to: Left femoral neck fracture secondary to fall s/p left hip hemiarthroplasty: surgery 02/[address] Downing. PT/OT for gait, mobility, strengthening, endurance, ADLs, and self care - 900 minute plan. Pain control with PRN Tylenol, PRN Oxycodone - scheduled doses BID before therapies on 03/09. Okay to remove roosevelt on 03/11 if incision looks okay, per Dr. Downing. Muscle spasms: Robaxin 500 mg 4 times daily started 03/05. Parkinson's Disease: on sinemet Dementia: on Namenda. Venous stasis dermatitis: Complains of pain with compression stockings, no signs or symptoms of infection/cellulitis. Continue to monitor. Essential hypertension: Per history, not currently on antihypertensive medications. Blood pressure well-controlled. Continue to monitor. Hyperlipidemia: lipid panel reviewed by Cardiology in acute care, monitoring off of cholesterol medications for now. Coronary artery disease: CABG in 2010. On Aspirin CHF: Torsemide held in setting of hypokalemia, not continued at discharge from acute care - nephrology discontinued 03/07 after restarting it. Compensated. Pulmonary fibrosis ANIYA on CKD stage IIIb: Baseline Cr ~2.1. Creatinine 1.8 on 03/10. Nephrology following - discontinuedtorsemide. Continue to monitor with periodic labs. Hypothyroidism: on synthroid, on liothyronine. TSH 1.91 02/25. Depression: on Zoloft Possible pancreatic cysts: Identified on chest CT, consider outpatient evaluation for MRCP on nonemergent basis. Bowel Management: Miralax daily, senokot prn, dulcolax prn. DVT Prophylaxis: SCD's while in bed, RIDDHI's during the day, and ASA 81 mg BID per Ortho protocol Internal Medicine for medical management Follow up: PCP 1-2 weeks, Orthopedic Surgery - Dr. Downing * Sumanth Slaughter PTA - 03/09/2025 4:16 PM EDT Physical Therapy [facility] Acute Rehabilitation Physical Therapy Treatment Date: 03/09/25 Patient Name: Leanna Nguyễn Room: 2619/2619-01 Account: [id number] : 1940 (84 y.o.) Gender: male Additional Pertinent Hx: HISTORY OF PRESENT ILLNESS: This is an 84-year-old gentleman with history of atherosclerotic CAD s/p CABG, dyslipidemia, essential hypertension, hypothyroidism, Parkinson's disease, dementia with baseline disorientation, former smoker, pulmonary fibrosis, mild bilateral carotid artery disease, chronic kidney disease, chronic lower extremity edema, migraine headache and generalized osteoarthritis presented to the emergency room with complaints of left hip pain after he sustained a mechanical fall. Patient was sitting on the toilet, reached over and fell on the floor. He denies any loss of consciousness, dizziness or lightheadedness. Imaging shows displaced left femoral neck fracture, Dr Downing perform L Hip Hemiarthroplasty on 02/25/25. Pt allowed WBAT L LE for mobility. Response To Previous Treatment: Patient unable to report, no changes reported from family or staff Family/Caregiver Present: No Referring Practitioner: Dr. Betancourt Referral Date : 02/28/25 Diagnosis: Left femoral neck fracture, S/P Left Hip hemiarthroplasty Follows Commands: Within Functional Limits Treatment Diagnosis: Difficulty walking Past Medical History: has no past medical history on file. Past Surgical History: has a past surgical history that includes hip surgery (Left, 02/25/2025). Restrictions Restrictions/Precautions Restrictions/Precautions: Bed Alarm, Weight Bearing, Fall Risk, Surgical Protocols (WBAT LLE, posterior hip precautions) Activity Level: Up as Tolerated, Up with Assist Required Braces or Orthoses?: No Implants Present? : Metal implants (L blanka arthroplasty) Lower Extremity Weight Bearing Restrictions Left Lower Extremity Weight Bearing: Weight Bearing As Tolerated Position Activity Restriction Hip Precautions: Posterior hip precautions, No hip flexion > 90 degrees, No sudden or extreme motions, No hip internal rotation, No hip external rotation, No ADduction Other Position/Activity Restrictions: Procedure: HIP HEMIARTHROPLASTY (Left: Hip) 02.25.[address] Downing-posterior precautions. Pt has history of parkinson's. Subjective Subjective Subjective: Pt was up in wheelchair on writers arrival in AM. Pt was agreeable and cooperative withall tasks this date both AM and PM. General General Comments: Pt pleasant and cooperative this date with assembly instructions writer despite history of limited cooperation Pain Pre-Pain: 0 (Pt denies) Post-Pain: 0 (Pt denying pain throughout treatment including standing and ambulation. Reports stiffness through LLE but denies pain) Pain Location: Left;Hip Objective Cognition Arousal/Alertness: Appears intact Following Commands: Follows one step commands with repetition Attention Span: Difficulty attending to directions Memory: Decreased recall of recent events;Decreased recall of precautions;Decreased short term memory Safety Judgement: Decreased awareness of need for assistance;Decreased awareness of need for safety Problem Solving: Assistance required to generate solutions;Assistance required to identify errors made;Assistance required to correct errors made;Assistance required to implement solutions;Decreased awareness of errors Insights: Not aware of deficits Initiation: Requires cues for some Sequencing: Requires cues for some Cognition Comment: Good attention to task throughout sessions. Repetition of safety cues throughout Bed Mobility Bed mobility Bed Mobility Comments: EDNA. Pt was up in wheelchair to begin AM session, and was seated in reclinerat start of PM Transfers Transfers Sit to Stand: Substantial/Maximal assistance (Heavy assist to stand. Requires cues to scoot to edgeof chair, proper hand placement, anterior weight shift in standing as pt stands with posterior lean, difficulty to transition hands from armrest to RW) Stand to Sit: Substantial/Maximal assistance (Cueing for safe hand placement and eccentric control.) Comment: Pt completed transfers with Max assist x1 with assembly instructions writer but recommending 2 assist for safetyin future sessions until pt progresses Mobility Ambulation Surface: Level tile Device: Rolling Walker Other Apparatus: Wheelchair follow (2nd assist wheelchair follow) Assistance: Partial/Moderate assistance Quality of Gait: short steps, VERY NBOS, step to gait- but improves to more reciprocal pattern as distance progresses. Final ambulation in PM, L knee seemed to buckle x2, but no LOB Gait Deviations: Slow Wendy;Decreased step length Distance: 30ft, 47ft, and 51ft Stairs/Curb Stairs?: No (pt has level entry, no stairs) Balance Balance Posture: Poor Sitting - Static: Poor Sitting - Dynamic: Poor;- Standing - Static: Poor Standing - Dynamic: Poor;- PT Exercises PT Exercises A/AROM Exercises: Seated bilat. LE ex. 15 reps. AROM and Mason band used Functional Mobility Circuit Training: Repeated sit to stands from w/c x3, with emphasis on correct technique and body mechanics. MaxA but with more assist and involvement from pt.; Additional sit to stands and stand pivot transfers throughout session Exercise Equipment: NuStep x 15 workload 6 ; seat 12 and arms 11, 500 steps Activity Tolerance Activity Tolerance Activity Tolerance: Patient tolerated treatment well Assessment Performance Deficits/Impairments: Decreased functional mobility , Decreased ROM, Decreased strength, Decreased safe awareness, Decreased cognition, Decreased endurance, Decreased vision/visual deficit, Increased pain, Decreased posture History: Hx of Parkinsons, dementia and heart failure. Clinical Presentation: Appears pleasant, politely refused; PM screaming does not appear to be wholly caused by pain. Discharge Recommendations: Home with assist PRN, Home with Home health PT Equipment PT D/C Equipment Equipment Needed: (continue to assess- pt has rolling walker) Education Education Education Given To: Patient Education Provided: Role of Therapy;Precautions;Safety;Mobility Training;Transfer Training;Equipment;Plan of Care;Fall Prevention Strategies Education Method: Demonstration;Verbal Barriers to Learning: Cognition Education Outcome: Continued education needed Goals Patient Goals Patient Goals : To work on standing up straight, to go back to [facility] Short Term Goals Time Frame for Short Term Goals: 10 visits Short Term Goal 1: Pt to complete supine<>sit at min A with HOB flat, use of rail- NOT MET Short Term Goal 2: Pt to complete sit to stand transfers with min assist, stand pivot transfers using RW with min assist-NOT MET Short Term Goal 3: Pt to ambulate with RW for 25 feet min assist- NOT MET Short Term Goal 4: Pt to improve standing balance to F+/F to reduce fall risk- NOT MET Short Term Goal 5: Pt to improve left hip strength to 3+/5, and knee strength to 4/5 to facilitate increased independence with gait, transfers-NOT MET Additional Goals?: Yes Short Term Goal 6: Pt to demonstrate posterior hip precautions with mod cueing during transfers andbed mobility-NOT MET Short Term Goal 7: Pt to propel wheelchair for 50 feet using UEs and LEs as able with SBA-NOT MET Short Term Goal 8: Pt to participate in TUG test if able using RW-NOT MET Test Technician Goals Time Frame for Test Technician Goals : By d/c Group Home Goal 1: Pt to complete bed mobility sup<>sit with SBA using rail prn- NOT MET Group Home Goal 2: Pt to complete sit to stand, stand pivot and car transfers with RW SBA-NOT MET Group Home Goal 3: Pt to ambulate with RW for 50 feet or > SBA with cues for safety/posture-NOT MET Test Technician Goal 4: Pt to picking supervisor object from floor using banquet houseperson and UE support on RW with SBA-NOT MET Group Home Goal 5: Pt to improve balance and safety with ambulation as evidence by ability to complete TUG test in 30 seconds or less using RW-NOT MET Additional Goals?: Yes intermediate goal 6: Pt to complete LE supine and seated ther ex for strengthening with min assist using handout-NOT MET Plan of Care Physical Therapy Plan General Plan: (900 minutes per week of combined PT, OT, ST due to poor tolerance to activity 2* high levels of pain and cognitive deficits) Current Treatment Recommendations: Strengthening, ROM, Balance training, Functional mobility training, Transfer training, Gait training, Stair training, Neuromuscular re-education, Pain management, Home exercise program, Safety education & training, Patient/Caregiver education & training, Equipment evaluation, education, & procurement, Therapeutic activities, Wheelchair mobility training Safety Devices Type of Devices: Gait belt, Left in chair, Nurse notified, Patient at risk for falls, All fall riskprecautions in place, Chair alarm in place 03/09/25 1005 03/09/25 1402 PT Individual Minutes Time In 1005 1402 Time Out 1100 1433 Minutes 55 31 Cosigned by Sridhar Simpson, PT at 03/13/2025 6:05 PM EDT * Sully Roman, OT - 03/09/2025 3:33 PM EDT [facility] Occupational Therapy Daily Treatment Note Date: 03/09/25 Patient Name: Leanna Nguyễn Room: 2619/2619-01 Account: [id number] : 1940 (84 y.o.) Gender: male Diagnosis: left femoral neck fracture following fall. L hip Hemiarthroplasty , parkinson's. Additional Pertinent Hx: Leanna Nguyễn is a 84 y.o. right-handed male admitted to the [facility] unit on 02/28/2025. He was originally admitted to [facility] on 02/25/2025 for left femoral neck fracture following fall. 84-year-old male with a history of Parkinson's, CHF, coronary artery disease, CABG, hyperlipidemia, hypertension, altered mental status, syncope and collapse, pulmonary fibrosis, CKD and dementia presenting with hip pain after fall. Patient is disoriented at baseline. Cardiology 02/26-aspirin resumed, torsemide held in setting of hypokalemia. Internal medicine-left femoral neck fracture status post left hip hemiarthroplasty 02/25 lives in assisted living Ortho-displaced femoral neck fracture status post left hip hemiarthroplasty on 02/25 Nephrology- patientnoted to have ANIYA on CKD postoperative, UA and renal ultrasound unremarkable. Improved with gentle rehydration. Palliative care brother has power of civil attorney no , no children parents are deceasedStmoi is the only sibling and next of kin reports that his daughter Kimberly is secondary, brother feels he can make his own decision, currently full code Treatment Diagnosis: impaired self care status d/t L hip hemiarthroplasty Past Medical History: has no past medical history on file. Past Surgical History: has a past surgical history that includes hip surgery (Left, 02/25/2025). Restrictions Restrictions/Precautions Restrictions/Precautions: Bed Alarm, Weight Bearing, Fall Risk, Surgical Protocols (WBAT LLE, posterior hip precautions) Activity Level: Up as Tolerated, Up with Assist Required Braces or Orthoses?: No Implants Present? : Metal implants (L blanka arthroplasty) Position Activity Restriction Hip Precautions: Posterior hip precautions, No hip flexion > 90 degrees, No sudden or extreme motions, No hip internal rotation, No hip external rotation, No ADduction Other Position/Activity Restrictions: Procedure: HIP HEMIARTHROPLASTY (Left: Hip) 02.25.[address] Downing-posterior precautions. Pt has history of parkinson's. Lower Extremity Weight Bearing Restrictions Left Lower Extremity Weight Bearing: Weight Bearing As Tolerated Subjective Subjective Subjective: you want me to stand up now? pt cooperative this am and pm. pt smiles when offered positive praise for working in therapy. Pain: pt does not verbalize pain today. when offered to return to bed in pm, pt declined stating Ifeel good. up in w/c. This pm, post chart review, this assembly instructions writer called to set up family training with nievelia Devine due to insurance case manager notes state she requested this despite planned d/c to SNF. updated her on pt's current mobility levels in therapy. family training set up with OT and PT tomorrow afternoon and she plans to have her dad (pt's brother) attend. She states family cannot provide assist upond/c and 24 hour care cannot be hired for assisted living. She would like pt to stay longer on ARU due to less therapy available at SNF. This assembly instructions writer referred her to case management. (note sent in chart to insurance case manager, Radha) Objective Cognition Cognition Arousal/Alertness: Appears intact (pt alert throughout am and pm.) Following Commands: Follows one step commands consistently Attention Span: Difficulty dividing attention Memory: Decreased recall of recent events;Decreased recall of precautions;Decreased short term memory Safety Judgement: Decreased awareness of need for assistance;Decreased awareness of need for safety Problem Solving: Assistance required to generate solutions;Assistance required to identify errors made;Assistance required to correct errors made;Assistance required to implement solutions;Decreased awareness of errors Insights: Not aware of deficits Initiation: Requires cues for some Sequencing: Requires cues for some Cognition Comment: good attention to task, sequencing and initiation with grooming, UE bathe and dress in am upon 1st getting up from bed to w/c and with shaving in pm. Activities of Daily Living Grooming/Oral Hygiene Assistance Level: Independent Skilled Clinical Factors: brushed teeth, washed face seated in w/c up to sink. Upper Extremity Bathing Assistance Level: Set-up Lower Extremity Bathing Assistance Level: Dependent Skilled Clinical Factors: pt dependent for LB bathing standing with RW with BUE support and A x 2 for stand balance and to complete wash ronit, bottom. pt washed his thighs to knees with set up, was assisted to wash distal BLE, but LHS was placed in room for future. Upper Extremity Dressing Assistance Level: Supervision Skilled Clinical Factors: pt was handed long sleeved t shirt. pt donned over arms and over head with extra time. pt made an error: t shirt was on backwards. Lower Extremity Dressing Assistance Level: Dependent Skilled Clinical Factors: pt was provided with reachers to don pullups and pants over feet- but still needed max A. TA x 2 to maintain stand balance with BUE on RW and don pants over hips. Putting On/Taking Off Footwear Assistance Level: Dependent Skilled Clinical Factors: TA don teds and slipper socks. Toileting Assistance Level: Dependent Skilled Clinical Factors: TA x 2 to maintain stand balance with BUE on RW and don pants over hips. Mobility Roll Left Assistance Level: Dependent Supine to Sit Assistance Level: Dependent Skilled Clinical Factors: mod A with with LLE to side of bed. dependent (TA x 2) for hips to EOB and roll L trunk follow through. Sit to Stand Assistance Level: Dependent;Requires x 2 assistance Stand to Sit Assistance Level: Dependent;Requires x 2 assistance Bed To/From Chair Technique: Stand pivot Assistance Level: Dependent Skilled Clinical Factors: with use of RW with max- TA x 2, pt with posterior lean. Stand Pivot Assistance Level: Dependent Skilled Clinical Factors: with use of RW with max- TA x 2, pt with posterior lean. Functional Mobility Device: Wheelchair Assistance Level: Dependent Skilled Clinical Factors: assist provided due to narrow space and to allow time to focus on adls. OT Exercises Functional Mobility Circuit Training: am: supine to sit, SPT with RW A x 2 to w/c, stood from w/c for LE dressing. pm: stayed in w/c. both am and pm, left up in w/c with call alarm in place and clip alarm in place. Static Standing Balance Exercises: concha 5 min static stand x 1 and 3 min with max - TA x 2, most of the time, but once achieved max assist of 1. Dynamic Standing Balance Exercises: concha 3 min stand, pivot this am with max-TA x 2 Disease-specific Exercises: pt was given assistance to shave this pm- assist needed mostly due to much overgrowth of hair. 80% of the time pt with good use of razor, unaware when making error- had razor turned backwards so only plastic touching his skin 20 % of the time. if hair was normal length, pt would have needed min A to complete. Assessment Assessment Activity Tolerance: Patient tolerated treatment well Patient Education Education Education Given To: Patient Education Provided: Mobility Training;Transfer Training;Fall Prevention Strategies Education Provided Comments: pt with memory deficits but benefits from repetiton of adl and mobility tasks and is given directions as needed for tasks. during standing, pt with posterior lean, ed pt to lean forward onto UE on RW, pt with limited improvement post cues. Education Method: Demonstration;Verbal Barriers to Learning: Cognition Education Outcome: Continued education needed Safety Devices Type of devices: Call light within reach;Left in chair;Chair alarm in place;Patient at risk for falls;All fall risk precautions in place (both am and pm, left up in w/c with call alarm in place and clip alarm in place.) Family education Pt is requiring A x 2 for transfers, not appropriate to train family at this time. Per chart- limited family support available upon d/c. Per case mgmt note: nieceGarry is interested in family training to gain more awareness of pt's deficits. Family training was set up for tomorrow pm with OT andPT. Offered to change OT time till later but she is pretty sure she can arrive for OT scheduled time at 1:15 pm, followed by PT. Updated OT and PT staff for tomorrow. Goals Patient Goals Patient goals : pt Short Term Goals Time Frame for Short Term Goals: 1 week Short Term Goal 1: indep feeding and grooming Short Term Goal 2: Pt will complete UB ADLs with set up A and Good cognition Short Term Goal 3: max x 1 toileting- LE bathe bottom and pants over hips assist stand with BUE support on lynette stedy or least restrictive device. Short Term Goal 4: concha 4-5 min static stand with BUE support with mod A of 1. Short Term Goal 5: Pt will participate in 30+ minutes of therapeutic exercises/functional activities to increase safety and independence with self care and mobility Additional Goals?: Yes Short Term Goal 6: concha 10 reps shld, elbow AROM with mod resistance on R and min on L for BUE strengthening for use during mobility for adls. Short Term Goal 7: able to tolerate safely performing adl transfers with max A x 2 and RW 50 % of the time during therapy. Test Technician Goals Time Frame for Group Home Goals : by discharge Group Home Goal 1: mod x 1 LE bathe and dress (with cues, assist provided due to pt poor memory withL hip precautions. ) Test Technician Goal 2: mod x 1 toileting and adl transfers Test Technician Goal 3: concha 6-7 min stand, transfer, amb with BUE support on RW and mod A. Group Home Goal 4: concha 15 reps shld, elbow AROM with mod resistance on R and min on L for BUE strengthening for use during mobility for adls. Test Technician Goal 5: increase MMT B elbow to 4+/5, L shld to 4-/5 and R shld to 4/5 to demo improved BUE strengthening for use during mobility for adls. Plan Occupational Therapy Plan Times Per Week: 900 min of PT/OT/ST Times Per Day: Twice a day Current Treatment Recommendations: Strengthening, Balance training, Functional mobility training, Endurance training, Pain management, Safety education & training, Patient/Caregiver education & training, Equipment evaluation, education, & procurement, Positioning, Self-Care / ADL, Co-Treatment, Cognitive/Perceptual training, Wheelchair mobility training 03/09/25 1511 03/09/25 1512 OT Individual Minutes Time In 0830 1434 Time Out 0933 1507 Minutes 63 33 OT Individual Minutes OT Individual Minutes Time In: 1434 Time Out: 1507 Minutes: 33 * Clint Scales MD - 03/09/2025 2:35 PM EDT IN-PATIENT SERVICE [facility] Internal Medicine Progress note Date: 03/09/2025 Patient name: Leanna Nguyễn Date of admission: 02/28/2025 3:30 PM Account: [id number] Date of : 1940 PCP: Pipe Jeffers MD Room: [address] [place] [address]- Code Status: Full Code Physician Requesting Consult: Juan Ramon Lucero MD Reason for Consult: medical management Chief Complaint: Medical management History Obtained From: Patient medical record nursing staff History of Present Illness: Patient, has past medical history multiple medical problem, which include coronary artery disease status post CABG, CHF, hypothyroidism, hypertension, hyperlipidemia, pulmonary fibrosis, chronic kidney disease, Parkinson disease, dementia, patient presented to [facility] after a fall, he had left hip pain, found to have acute subcapital left femoral neck fracture, patient underwent left hip hemiarthroplasty on 02/25 While in hospital, patient had worsening creatinine, was evaluated by table worker, treated with IVfluids, torsemide was kept on hold, patient, creatinine improved to his baseline, Patient required Shell's catheter placement which was later removed Transferred to [facility], acute rehab unit for further management Past Medical History: History reviewed. No pertinent past medical history. Past Surgical History: Past Surgical History: Procedure Laterality Date HIP SURGERY Left 02/25/2025 HIP HEMIARTHROPLASTY performed by Ana Downing MD at [facility] OR Medications Prior to Admission: Prior to Admission medications Medication Sig Start Date End Date Taking? Authorizing Provider amLODIPine (NORVASC) 2.5 MG tablet Take 1 tablet by mouth daily Ruth Howe MD aspirin 81 MG chewable tablet Take 1 tablet by mouth daily Ruth Howe MD carbidopa-levodopa (SINEMET) 10-100 MG per tablet Take 1 tablet by mouth 3 times daily Ruth Howe MD cephALEXin (KEFLEX) 500 MG capsule Take 1 capsule by mouth 2 times daily Ruth Howe MD folic acid (FOLVITE) 400 MCG tablet Take 1 tablet by mouth daily Ruth Howe MD levothyroxine (SYNTHROID) 100 MCG tablet Take 1 tablet by mouth Daily Ruth Howe MD liothyronine (CYTOMEL) 5 MCG tablet Take 1 tablet by mouth daily Ruth Howe MD memantine (NAMENDA) 10 MG tablet Take 1 tablet by mouth 2 times daily Ruth Howe MD Multiple Vitamins-Minerals (THERAPEUTIC MULTIVITAMIN-MINERALS) tablet Take 1 tablet by mouth daily Ruth Howe MD potassium chloride (KLOR-CON) 20 MEQ packet Take 10 mEq by mouth daily Ruth Howe MD sennosides-docusate sodium (SENOKOT-S) 8.6-50 MG tablet Take 1 tablet by mouth daily Ruth Howe MD sertraline (ZOLOFT) 25 MG tablet Take 1 tablet by mouth daily Ruth Howe MD tolterodine (DETROL) 1 MG tablet Take 1 tablet by mouth 2 times daily Ruth Howe MD torsemide (DEMADEX) 10 MG tablet Take 1 tablet by mouth daily Ruth Howe MD vitamin B-12 (CYANOCOBALAMIN) 500 MCG tablet Take 1 tablet by mouth daily Ruth Howe MD vitamin D 50 MCG (1999 UT) CAPS capsule Take 1 capsule by mouth daily ProviderRuth MD Allergies: Patient has no known allergies. Social History: Tobacco: reports that he has never smoked. He has never been exposed to tobacco smoke. He has neverused smokeless tobacco. Alcohol: has no history on file for alcohol use. Drug Use: reports no history of drug use. Family History: No family history on file. Review of Systems: Positive and Negative as described in HPI. CONSTITUTIONAL: negative for fevers, chills, sweats, fatigue, weight loss HEENT: negative for vision, hearing changes, runny nose, throat pain RESPIRATORY: negative for shortness of breath, cough, congestion, wheezing. CARDIOVASCULAR: negative for chest pain, palpitations. GASTROINTESTINAL: negative for nausea, vomiting, diarrhea, constipation, change in bowel habits, abdominal pain GENITOURINARY: negative for difficulty of urination, burning with urination, frequency INTEGUMENT: negative for rash, skin lesions, easy bruising HEMATOLOGIC/LYMPHATIC: negative for swelling/edema ALLERGIC/IMMUNOLOGIC: negative for urticaria , itching ENDOCRINE: negative increase in drinking, increase in urination, hot or cold intolerance MUSCULOSKELETAL: Pain, left hip NEUROLOGICAL: negative for headaches, dizziness, lightheadedness, numbness, pain, tingling extremities BEHAVIOR/PSYCH: Physical Exam: BP (!) 155/67 Pulse 71 Temp 98.2 F (36.8 C) (Oral) Resp 18 Ht 1.854 m (6' 0.99 ) Wt 97 kg(213 lb 13.5 oz) SpO2 99% BMI 28.22 kg/m Temp (24hrs), Av.2 F (36.8 C), Min:98.2 F (36.8 C), Max:98.2 F (36.8 C) No results for input(s): POCGLU in the last 72 hours. Intake/Output Summary (Last 24 hours) at 03/09/2025 1435 Last data filed at 03/09/2025 1200 Gross per 24 hour Intake 480 ml Output -- Net 480 ml General Appearance: alert, well appearing, and in no acute distress, wheelchair-bound Mental status: oriented to person, place, and time with normal affect Head: normocephalic, atraumatic. Eye: no icterus, redness, pupils equal and reactive, extraocular eye movements intact, conjunctiva clear Ear: normal external ear, no discharge, hearing intact Nose: no drainage noted Mouth: mucous membranes moist Neck: supple, no carotid bruits, thyroid not palpable Lungs: Bilateral equal air entry, clear to ausculation, no wheezing, rales or rhonchi, normal effort Cardiovascular: normal rate, regular rhythm, no murmur, gallop, rub. Abdomen: Soft, nontender, nondistended, normal bowel sounds, no hepatomegaly or splenomegaly Neurologic: There are no new focal motor or sensory deficits, normal muscle tone and bulk, no abnormal sensation, normal speech, cranial nerves II through XII grossly intact Skin: No gross lesions, rashes, bruising or bleeding on exposed skin area Extremities: Postsurgical changes present left hip, mild edema in left leg Psych: Investigations: Laboratory Testing: No results found for this or any previous visit (from the past 24 hours). Consultations: IP CONSULT TO DIETITIAN IP CONSULT TO SOCIAL WORK IP CONSULT TO INTERNAL MEDICINE IP CONSULT TO NEPHROLOGY Assessment : Primary Problem Hip fracture, left, sequela Active Hospital Problems Diagnosis Date Noted S/P hip hemiarthroplasty [Z96.649] 03/01/2025 Closed fracture of left hip (HCC) [S72.002A] 03/01/2025 Hip fracture, left, sequela [S72.002S] 02/28/2025 Plan: Left hip fracture status post left hip hemiarthroplasty, on 02/25 Coronary artery disease status post CABG, on aspirin, not on statin, patient could not tell me whether he is allergic to statin or not, review of previous office visit notes, Lipitor is not mentionedin his home medication list, will discuss with close family, regarding previous documented statin allergies, patient, recently evaluated by loading unit operator, last LDL was 71 CHF, compensated Parkinson disease, follows closely with neurology as outpatient Dementia on Namenda Hypothyroidism on Synthroid and liothyronine , TSH tested recently is okay Chronic kidney disease, creatinine increased to 2, diuretics kept on hold, patient evaluated by table worker starting patient on heparin 5000 every 8 for DVT prophylaxis Underwent CT of chest, 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 Although every effort was made to ensure the accuracy of this automated physical education professor, some errors in physical education professor may have occurred. * PerezHari fitzpatrickwoodrow Wright - 03/09/2025 12:53 PM EDT Spiritual Health History and Assessment/Progress Note [facility] (P) Spiritual/Emotional Needs, , , Name: Leanna Nguyễn Age: 84 y.o. Sex: male Language: [place] Congregation: [employer] Hip fracture, left, sequela Date: 03/09/2025 Total Time Calculated: (P) 12 min Spiritual Assessment began in [facility] Referral/Consult From: (P) Rounding Encounter Overview/Reason: (P) Spiritual/Emotional Needs Service Provided For: (P) Patient Patient seated in w/c upon entry, patient is pleasant and enjoy sharing stories. Patient talked about his nephew who is out-of-town right now per patient. Marcella, Belief, Meaning: Patient is connected with a marcella tradition or spiritual practice Family/Friends No family/friends present Importance and Influence: Patient has spiritual/personal beliefs that influence decisions regarding their health Family/Friends No family/friends present Community: Patient feels well-supported. Support system includes: Extended family Family/Friends No family/friends present Assessment and Plan of Care: Patient Interventions include: Facilitated expression of thoughts and feelings and Affirmed coping skills/support systems Family/Friends Interventions include: No family/friends present Patient Plan of Care: Spiritual Care available upon further referral Family/Friends Plan of Care: No family/friends present * Lenore Vivas, ULTRA SOUND TECHNICIAN - 03/09/2025 12:02 PM EDT Speech Language Pathology [facility] Cognitive Treatment Note Date: 03/09/2025 Patient s Name: Leanna Nguyễn Diagnosis: Patient Active Problem List Diagnosis Code Left displaced femoral neck fracture (HCC) S72.002A Fall W19.XXXA ANIYA (acute kidney injury) N17.9 Parkinson's disease (HCC) G20.A1 Coronary artery disease involving [place] coronary artery of [place] heart without angina pectoris I25.10 Hip fracture, left, sequela S72.002S S/P hip hemiarthroplasty Z96.649 Closed fracture of left hip (HCC) S72.002A Pain Rating: Pt. Denies pain when asked at beginning of session. Pt. Reporting hip pain at end of session and requesting tylenol. RN, Luzmaria, notified. Dr. Thompson rounding and notified as well. Cognitive Treatment Treatment time: ULTRA SOUND TECHNICIAN Individual Minutes Time In: 1101 Time Out: 1131 Minutes: 30 Subjective: [x] Alert [x] Cooperative [] Confused [] Agitated [] Lethargic Objective/Assessment: Attention: Pt. Occasionally responding to stimuli off-topic. Pt. Easily distracted t/o session; environment modified to reduce distractions and increase sustained attention. Recall: Directions: /10 increased to 9/10 with mod-max verbal/visual cues/repetition of stimuli/implementation of chunking. Pt. 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 Problem Solving/Reasoning: Stating situational problems: 10 increased to 8/10 with mod-max verbalcues. Other: Pt. In chair with chair alarm in use. Call light left within reach. Plan: [x] Continue ST services [] Discharge from ST: Discharge recommendations: [x] Further therapy recommended at discharge. [] No therapy recommended at discharge. Treatment completed by: Lenore Vivas M.S. [facility]-ULTRA SOUND TECHNICIAN * Megan Thompson MD - 03/09/2025 8:43 AM EDT Physical Medicine & Rehabilitation Progress Note Subjective: Patient is an 84-year-old male with left hip fracture s/p hemiarthroplasty. He reports doing fine today. He notes a little bit of pain in the left hip at the time of evaluation. Discussed scheduling oxycodone before therapies, as he seems to have more pain with movement/activity. He karlie any other acute concerns. ROS: Denies fevers, chills, sweats. No chest pain, palpitations, lightheadedness. Denies coughing, wheezing or shortness of breath. Denies abdominal pain, nausea, diarrhea or constipation. No new areas of joint pain. Denies new areas of numbness or weakness. Denies new anxiety or depression issues. No new skin problems. Rehabilitation: PT: Bed mobility Rolling to Left: 2 Person assistance, Substantial/Maximal assistance Rolling to Right: 2 Person assistance, Substantial/Maximal assistance Supine to Sit: Substantial/Maximal assistance Sit to Supine: Substantial/Maximal assistance, 2 Person assistance Scooting: Substantial/Maximal assistance Bed Mobility Comments: EDNA. Pt was up in wheelchair to begin AM session, and was seated in reclinerat start of PM Transfers Sit to Stand: Substantial/Maximal assistance (Heavy assist to stand. Requires cues to scoot to edgeof chair, proper hand placement, anterior weight shift in standing as pt stands with posterior lean, difficulty to transition hands from armrest to RW) Stand to Sit: Substantial/Maximal assistance (Cueing for safe hand placement and eccentric control.) Bed to Chair: Dependent/Total Stand Pivot Transfers: Dependent/Total Comment: Pt completed transfers with Max assist x1 with assembly instructions writer but recommending 2 assist for safetyin future sessions until pt progresses Ambulation WB Status: WBAT L LE Ambulation Surface: Level tile Device: Rolling Walker Other Apparatus: Wheelchair follow (2nd assist wheelchair follow) Assistance: Partial/Moderate assistance Quality of Gait: short steps, VERY NBOS, step to gait- but improves to more reciprocal pattern as distance progresses. Final ambulation in PM, L knee seemed to buckle x2, but no LOB Gait Deviations: Slow Wendy, Decreased step length Distance: 30ft, 47ft, and 51ft Comments: Not attempted today. More Ambulation?: No OT: Feeding: Setup Grooming: Supervision Grooming Skilled Clinical Factors: brush teeth, wash face seated in w/c up to sink. UE Bathing: Supervision UE Bathing Skilled Clinical Factors: seated in w/c up to sink. LE Bathing: Dependent/Total LE Bathing Skilled Clinical Factors: TA x 2 to stand with RW and wash ronit, bottom. seated- pt ableto wash thighs with set up, TA distally. ed pt how far he is allowed to bend to wash LE. pt had difficulty understanding and following this so OT had him hand her the washcloth to provide assist to wash distal LE to keep L hip precautions. UE Dressing: Minimal assistance UE Dressing Skilled Clinical Factors: t shirt. assist needed to pull down shirt in back- did not respond to cues. LE Dressing: Dependent/Total LE Dressing Skilled Clinical Factors: TA don pants over feet, TA x 2 to don pullups, pants over hips stand with lynette mauricio. Putting On/Taking Off Footwear: Dependent/Total Putting On/Taking Off Footwear Skilled Clinical Factors: TA don teds and slipper socks. Toileting: Dependent/Total Toileting Skilled Clinical Factors: TA x 2 stand with RW. Toilet Transfers Equipment Used: Grab bars Toilet Transfer: 2 Person assistance, Dependent/Total Toilet Transfers Comments: max x 2 stand pivot transfer with RW w/c to toilet with grab bars, TA x 2 stand for toileting with RW, then TA x 2 stand with lynette mauricio for transfer off toilet to w/c, then BSC obtained for over the toilet, due to pt max fatigued with mobility and higher surface will be helpful. plan communicated to nsg is lynette Dorsey x 2. SPEECH: Subjective: [x] Alert [x] Cooperative [] Confused [] Agitated [] Lethargic Objective/Assessment: Attention: Pt. Occasionally responding to stimuli off-topic. Pt. Easily distracted t/o session; environment modified to reduce distractions and increase sustained attention. Recall: Directions: 4/10 increased to 9/10 with mod-max verbal/visual cues/repetition of stimuli/implementation of chunking. Pt. 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 Problem Solving/Reasoning: Stating situational problems: /10 increased to 8/10 with mod-max verbalcues. Other: Pt. In chair with chair alarm in use. Call light left within reach. Objective: BP (!) 121/52 Pulse 59 Temp 98.2 F (36.8 C) (Oral) Resp 18 Ht 1.854 m (6' 0.99 ) Wt 97 kg(213 lb 13.5 oz) SpO2 97% BMI 28.22 kg/m GEN: well developed, well nourished, NAD HEENT: NCAT, EOM grossly intact, mucous membranes pink and moist CV: RRR, no murmurs, rubs or gallops PULM: CTAB, no rales or rhonchi. Respirations WNL and unlabored ABD: soft, ND, BS+ and equal NEURO: Alert. Sensation intact to light touch in the bilateral lower limbs. MSK: Moving bilateral upper limbs with at least antigravity strength. Strength 5/5 with bilateral ankle dorsiflexion and plantarflexion. SKIN: warm dry and intact with good turgor PSYCH: appropriately interactive. Affect WNL. Diagnostics: CBC: Recent Labs 03/08/25 0802 WBC 7.7 RBC 3.90* HGB 11.2* HCT 37.2* MCV 95.4 RDW 14.1 PLT 231 BMP: Recent Labs 03/08/25 0802 NA 138 K 4.3 CL 102 CO2 23 BUN 41* CREATININE 2.0* GLUCOSE 127* BNP: No results for input(s): BNP in the last 72 hours. PT/INR: No results for input(s): PROTIME , INR in the last 72 hours. APTT: No results for input(s): APTT in the last 72 hours. CARDIAC ENZYMES: No results for input(s): CKMB , CKMBINDEX , TROPONINT in the last 72 hours. Invalid input(s): CKTOTAL;3 troponins FASTING LIPID PANEL: Lab Results Component Value Date CHOL 135 02/25/2025 HDL 53 02/25/2025 TRIG 57 02/25/2025 LIVER PROFILE: No results for input(s): AST , ALT , BILIDIR , BILITOT , ALKPHOS in the last 72 hours. Invalid input(s): ALB Current Medications: Current Facility-Administered Medications: oxyCODONE HCl (OXY-IR) immediate release tablet 10 mg, 10 mg, Oral, 2 times per day AND oxyCODONE HCl (OXY- IR) immediate release tablet 10 mg, 10 mg, Oral, Q4H PRN aspirin EC tablet 81 mg, 81 mg, Oral, Daily methocarbamol (ROBAXIN) tablet 500 mg, 500 mg, Oral, 4x Daily miconazole (MICOTIN) 2 % powder, , Topical, BID heparin (porcine) injection 5,000 Units, 5,000 Units, SubCUTAneous, 3 times per day polyethylene glycol (GLYCOLAX) packet 17 g, 17 g, Oral, Daily senna (SENOKOT) tablet 17.2 mg, 2 tablet, Oral, Daily PRN bisacodyl (DULCOLAX) suppository 10 mg, 10 mg, Rectal, Daily PRN acetaminophen (TYLENOL) tablet 650 mg, 650 mg, Oral, Q6H PRN OR [DISCONTINUED] acetaminophen (TYLENOL) suppository 650 mg, 650 mg, Rectal, Q6H PRN carbidopa-levodopa (SINEMET) 25-100 MG per tablet 1 tablet, 1 tablet, Oral, TID levothyroxine (SYNTHROID) tablet 100 mcg, 100 mcg, Oral, Daily liothyronine (CYTOMEL) tablet 5 mcg, 5 mcg, Oral, Daily melatonin tablet 3 mg, 3 mg, Oral, Nightly PRN memantine (NAMENDA) tablet 10 mg, 10 mg, Oral, BID ondansetron (ZOFRAN-ODT) disintegrating tablet 4 mg, 4 mg, Oral, Q8H PRN OR [DISCONTINUED] ondansetron (ZOFRAN) injection 4 mg, 4 mg, IntraVENous, Q6H PRN sertraline (ZOLOFT) tablet 25 mg, 25 mg, Oral, Daily Reviewed notes from internal medicine, PT, OT, ST. Impression/Plan: Impaired ADLs, gait, and mobility due to: Left femoral neck fracture secondary to fall s/p left hip hemiarthroplasty: surgery 02/[address] Downing. PT/OT for gait, mobility, strengthening, endurance, ADLs, and self care - 900 minute plan. Pain control with PRN Tylenol, PRN Oxycodone - scheduled doses BID before therapies on 03/09. Muscle spasms: Robaxin 500 mg 4 times daily started 03/05. Parkinson's Disease: on sinemet Dementia: on Namenda. Venous stasis dermatitis: Complains of pain with compression stockings, no signs or symptoms of infection/cellulitis. Continue to monitor. Essential hypertension: Per history, not currently on antihypertensive medications. Blood pressure well-controlled. Continue to monitor. Hyperlipidemia: lipid panel reviewed by Cardiology in acute care, monitoring off of cholesterol medications for now. Coronary artery disease: CABG in 2010. On Aspirin CHF: Torsemide held in setting of hypokalemia, not continued at discharge from acute care - nephrology discontinued 03/07 after restarting it. Compensated. Pulmonary fibrosis ANIYA on CKD stage IIIb: Baseline Cr ~2.1. Creatinine 2 on 03/06. Nephrology following - discontinued torsemide. Continue to monitor with periodic labs. Hypothyroidism: on synthroid, on liothyronine. TSH 1.91 02/25. Depression: on Zoloft Possible pancreatic cysts: Identified on chest CT, consider outpatient evaluation for MRCP on nonemergent basis. Bowel Management: Miralax daily, senokot prn, dulcolax prn. DVT Prophylaxis: SCD's while in bed, RIDDHI's during the day, and ASA 81 mg BID per Ortho protocol Internal Medicine for medical management Follow up: PCP 1-2 weeks, Orthopedic Surgery - Dr. Downing * Luz Marina Devine RN - 03/08/2025 9:01 PM EDT Patient is currently refusing evening vitals and medications. When assembly instructions writer asked why patient stated they just don't want to . Patient was educated on the importance of monitoring vitals and taking medications as scheduled. Plan of care ongoing. * Francoise Whiteside PTA - 03/08/2025 4:02 PM EDT [facility] Physical Therapy Treatment Date: 03/08/25 Patient Name: Leanna Nguyễn Room: 2619/2619-01 Account: [id number] : 1940 (84 y.o.) Gender: male Additional Pertinent Hx: HISTORY OF PRESENT ILLNESS: This is an 84-year-old gentleman with history of atherosclerotic CAD s/p CABG, dyslipidemia, essential hypertension, hypothyroidism, Parkinson's disease, dementia with baseline disorientation, former smoker, pulmonary fibrosis, mild bilateral carotid artery disease, chronic kidney disease, chronic lower extremity edema, migraine headache and generalized osteoarthritis presented to the emergency room with complaints of left hip pain after he sustained a mechanical fall. Patient was sitting on the toilet, reached over and fell on the floor. He denies any loss of consciousness, dizziness or lightheadedness. Imaging shows displaced left femoral neck fracture, Dr Downing perform L Hip Hemiarthroplasty on 02/25/25. Pt allowed WBAT L LE for mobility. Response To Previous Treatment: Patient unable to report, no changes reported from family or staff Family/Caregiver Present: No Referring Practitioner: Dr. Betancourt Referral Date : 02/28/25 Diagnosis: Left femoral neck fracture, S/P Left Hip hemiarthroplasty Follows Commands: Within Functional Limits Treatment Diagnosis: Difficulty walking Past Medical History: has no past medical history on file. Past Surgical History: has a past surgical history that includes hip surgery (Left, 02/25/2025). Restrictions Restrictions/Precautions Restrictions/Precautions: Bed Alarm, Weight Bearing, Fall Risk, Surgical Protocols (WBAT LLE, posterior hip precautions) Activity Level: Up as Tolerated, Up with Assist Required Braces or Orthoses?: No Implants Present? : Metal implants (L blanka arthroplasty) Lower Extremity Weight Bearing Restrictions Left Lower Extremity Weight Bearing: Weight Bearing As Tolerated Position Activity Restriction Hip Precautions: Posterior hip precautions, No hip flexion > 90 degrees, No sudden or extreme motions, No hip internal rotation, No hip external rotation, No ADduction Other Position/Activity Restrictions: Procedure: HIP HEMIARTHROPLASTY (Left: Hip) 02.25.[address] Downing-posterior precautions. Pt has history of parkinson's. Subjective Subjective Subjective: Pt initially answering questions, eventually states I've had enough of this interrogation and refuses all activity suggestions, including calling niece, perhaps primarily because writerstated need to don pants. Eventually, Pt makes sign of the cross, closes his eyes, turns head away and did not respond to any further questions/statements. PM: Pt agreeable to putting on pants, goingto play bingo; on attempting to pull up pants, note bed clothes and brief are wet, necessitating brief change. While moving, Pt starts to scream in apparent pain, but does not reply to queries about pain, continues screaming. Continued moving Pt to get into w/c in hopes of playing bingo (Pt continues screaming), but session ended/LOWE Emeterio entered before we could get to gym. Informed Emeterio of planto play bingo. General General Comments: ITZ Stephenson notified of refusal; PM, Sachin states he has gotten Pt to EOB with groaning only. Pain Pre-Pain: 10 (based on Pt screaming during movement.) Pain Location: Left;Hip Pain Interventions: Rest;Repositioning Objective Bed Mobility Bed mobility Rolling to Left: 2 Person assistance;Substantial/Maximal assistance Rolling to Right: 2 Person assistance;Substantial/Maximal assistance Supine to Sit: Substantial/Maximal assistance Scooting: Substantial/Maximal assistance Bed Mobility Comments: Bed flat, rails used Transfers Transfers Sit to Stand: 2 Person Assistance;Substantial/Maximal assistance Stand to Sit: 2 Person Assistance;Partial/Moderate assistance Bed to Chair: Dependent/Total Stand Pivot Transfers: Dependent/Total Comment: Lynette Mauricio Mobility Ambulation WB Status: WBAT L LE Ambulation Comments: Not attempted today. 03/08/25 1012 PT Exercises Functional Mobility Circuit Training Rolling & mobility for brief change, to don pants. Balance Balance Posture: Poor Sitting - Static: Poor (R lateral lean; requires tactile redirect for improved hand support.) Sitting - Dynamic: Poor;- (R lateral lean; requires tactile redirect for improved hand support.) Standing - Static: Poor (Lynette Mauricio) Standing - Dynamic: Poor;- (Pt gripping Lynette bar too tightly to fully assess.) Activity Tolerance Activity Tolerance Activity Tolerance: Treatment limited secondary to decreased cognition;Patient limited by pain;Treatment limited secondary to agitation Assessment Performance Deficits/Impairments: Decreased functional mobility , Decreased ROM, Decreased strength, Decreased safe awareness, Decreased cognition, Decreased endurance, Decreased vision/visual deficit, Increased pain, Decreased posture History: Hx of Parkinsons, dementia and heart failure. Clinical Presentation: Appears pleasant, politely refused; PM screaming does not appear to be wholly caused by pain. Discharge Recommendations: Home with assist PRN, Home with Home health PT Goals Short Term Goals Time Frame for Short Term Goals: 10 visits Short Term Goal 1: Pt to complete supine<>sit at min A with HOB flat, use of rail Short Term Goal 2: Pt to complete sit to stand transfers with min assist, stand pivot transfers using RW with min assist Short Term Goal 3: Pt to ambulate with RW for 25 feet min assist Short Term Goal 4: Pt to improve standing balance to F+/F to reduce fall risk Short Term Goal 5: Pt to improve left hip strength to 3+/5, and knee strength to 4/5 to facilitate increased independence with gait, transfers Short Term Goal 6: Pt to demonstrate posterior hip precautions with mod cueing during transfers andbed mobility Short Term Goal 7: Pt to propel wheelchair for 50 feet using UEs and LEs as able with SBA Short Term Goal 8: Pt to participate in TUG test if able using RW Group Home Goals Time Frame for Group Home Goals : By d/c Group Home Goal 1: Pt to complete bed mobility sup<>sit with SBA using rail prn Test Technician Goal 2: Pt to complete sit to stand, stand pivot and car transfers with RW SBA Test Technician Goal 3: Pt to ambulate with RW for 50 feet or > SBA with cues for safety/posture Test Technician Goal 4: Pt to picking supervisor object from floor using banquet houseperson and UE support on RW with SBA Test Technician Goal 5: Pt to improve balance and safety with ambulation as evidence by ability to complete TUG test in 30 seconds or less using RW intermediate goal 6: Pt to complete LE supine and seated ther ex for strengthening with min assist using handout Plan of Care Physical Therapy Plan General Plan: (900 minutes per week of combined PT, OT, ST due to poor tolerance to activity 2* high levels of pain and cognitive deficits) Current Treatment Recommendations: Strengthening, ROM, Balance training, Functional mobility training, Transfer training, Gait training, Stair training, Neuromuscular re-education, Pain management, Home exercise program, Safety education & training, Patient/Caregiver education & training, Equipment evaluation, education, & procurement, Therapeutic activities, Wheelchair mobility training Safety Devices Type of Devices: Gait belt, Bed alarm in place, Left in bed, Left in chair, Nurse notified, Patientat risk for falls, All fall risk precautions in place (Bed AM, w/c PM) PT Minutes 03/08/25 1012 03/08/25 1013 PT Individual Minutes Time In 1009 1245 Time Out 1020 1320 Minutes 11 35 Minute Variance Variance 49 -- Reason Refusal -- Cosigned by Pat Moran, PT at 03/09/2025 7:42 AM EDT * Clint Scales MD - 03/08/2025 2:13 PM EDT IN-PATIENT SERVICE [facility] Internal Medicine Progress note Date: 03/08/2025 Patient name: Leanna Nguyễn Date of admission: 02/28/2025 3:30 PM Account: [id number] Date of : 1940 PCP: Pipe Jeffers MD Room: [address] [place] [address] Code Status: Full Code Physician Requesting Consult: Juan Ramon Lucero MD Reason for Consult: medical management Chief Complaint: Medical management History Obtained From: Patient medical record nursing staff History of Present Illness: Patient, has past medical history multiple medical problem, which include coronary artery disease status post CABG, CHF, hypothyroidism, hypertension, hyperlipidemia, pulmonary fibrosis, chronic kidney disease, Parkinson disease, dementia, patient presented to [facility] after a fall, he had left hip pain, found to have acute subcapital left femoral neck fracture, patient underwent left hip hemiarthroplasty on 02/25 While in hospital, patient had worsening creatinine, was evaluated by table worker, treated with IVfluids, torsemide was kept on hold, patient, creatinine improved to his baseline, Patient required Shell's catheter placement which was later removed Transferred to [facility] rehab unit for further management Past Medical History: History reviewed. No pertinent past medical history. Past Surgical History: Past Surgical History: Procedure Laterality Date HIP SURGERY Left 02/25/2025 HIP HEMIARTHROPLASTY performed by Ana Downing MD at [facility] OR Medications Prior to Admission: Prior to Admission medications Medication Sig Start Date End Date Taking? Authorizing Provider amLODIPine (NORVASC) 2.5 MG tablet Take 1 tablet by mouth daily Ruth Howe MD aspirin 81 MG chewable tablet Take 1 tablet by mouth daily Ruth Howe MD carbidopa-levodopa (SINEMET) 10-100 MG per tablet Take 1 tablet by mouth 3 times daily Ruth Howe MD cephALEXin (KEFLEX) 500 MG capsule Take 1 capsule by mouth 2 times daily Ruth Howe MD folic acid (FOLVITE) 400 MCG tablet Take 1 tablet by mouth daily Ruth Howe MD levothyroxine (SYNTHROID) 100 MCG tablet Take 1 tablet by mouth Daily Ruth Howe MD liothyronine (CYTOMEL) 5 MCG tablet Take 1 tablet by mouth daily Ruth Howe MD memantine (NAMENDA) 10 MG tablet Take 1 tablet by mouth 2 times daily Ruth Howe MD Multiple Vitamins-Minerals (THERAPEUTIC MULTIVITAMIN-MINERALS) tablet Take 1 tablet by mouth daily Ruth Howe MD potassium chloride (KLOR-CON) 20 MEQ packet Take 10 mEq by mouth daily Ruth Howe MD sennosides-docusate sodium (SENOKOT-S) 8.6-50 MG tablet Take 1 tablet by mouth daily Ruth Howe MD sertraline (ZOLOFT) 25 MG tablet Take 1 tablet by mouth daily Ruth Howe MD tolterodine (DETROL) 1 MG tablet Take 1 tablet by mouth 2 times daily Ruth Howe MD torsemide (DEMADEX) 10 MG tablet Take 1 tablet by mouth daily Ruth Howe MD vitamin B-12 (CYANOCOBALAMIN) 500 MCG tablet Take 1 tablet by mouth daily Ruth Howe MD vitamin D 50 MCG (2000 UT) CAPS capsule Take 1 capsule by mouth daily Ruth Howe MD Allergies: Patient has no known allergies. Social History: Tobacco: reports that he has never smoked. He has never been exposed to tobacco smoke. He has neverused smokeless tobacco. Alcohol: has no history on file for alcohol use. Drug Use: reports no history of drug use. Family History: No family history on file. Review of Systems: Positive and Negative as described in HPI. CONSTITUTIONAL: negative for fevers, chills, sweats, fatigue, weight loss HEENT: negative for vision, hearing changes, runny nose, throat pain RESPIRATORY: negative for shortness of breath, cough, congestion, wheezing. CARDIOVASCULAR: negative for chest pain, palpitations. GASTROINTESTINAL: negative for nausea, vomiting, diarrhea, constipation, change in bowel habits, abdominal pain GENITOURINARY: negative for difficulty of urination, burning with urination, frequency INTEGUMENT: negative for rash, skin lesions, easy bruising HEMATOLOGIC/LYMPHATIC: negative for swelling/edema ALLERGIC/IMMUNOLOGIC: negative for urticaria , itching ENDOCRINE: negative increase in drinking, increase in urination, hot or cold intolerance MUSCULOSKELETAL: Pain, left hip NEUROLOGICAL: negative for headaches, dizziness, lightheadedness, numbness, pain, tingling extremities BEHAVIOR/PSYCH: Physical Exam: BP 116/67 Pulse 62 Temp 97.9 F (36.6 C) (Oral) Resp 16 Ht 1.854 m (6' 0.99 ) Wt 97 kg (213 lb 13.5 oz) SpO2 96% BMI 28.22 kg/m Temp (24hrs), Av.9 F (36.6 C), Min:97.8 F (36.6 C), Max:97.9 F (36.6 C) No results for input(s): POCGLU in the last 72 hours. No intake or output data in the 24 hours ending 03/08/25 1413 General Appearance: alert, well appearing, and in no acute distress, wheelchair-bound Mental status: oriented to person, place, and time with normal affect Head: normocephalic, atraumatic. Eye: no icterus, redness, pupils equal and reactive, extraocular eye movements intact, conjunctiva clear Ear: normal external ear, no discharge, hearing intact Nose: no drainage noted Mouth: mucous membranes moist Neck: supple, no carotid bruits, thyroid not palpable Lungs: Bilateral equal air entry, clear to ausculation, no wheezing, rales or rhonchi, normal effort Cardiovascular: normal rate, regular rhythm, no murmur, gallop, rub. Abdomen: Soft, nontender, nondistended, normal bowel sounds, no hepatomegaly or splenomegaly Neurologic: There are no new focal motor or sensory deficits, normal muscle tone and bulk, no abnormal sensation, normal speech, cranial nerves II through XII grossly intact Skin: No gross lesions, rashes, bruising or bleeding on exposed skin area Extremities: Postsurgical changes present left hip, mild edema in left leg Psych: Investigations: Laboratory Testing: Recent Results (from the past 24 hours) Basic Metabolic Panel w/ Reflex to MG Collection Time: 03/08/25 8:02 AM Result Value Ref Range Sodium 138 136 - 145 mmol/L Potassium 4.3 3.7 - 5.3 mmol/L Chloride 102 98 - 107 mmol/L CO2 23 20 - 31 mmol/L Anion Gap 13 9 - 16 mmol/L Glucose 127 (H) 74 - 99 mg/dL BUN 41 (H) 8 - 23 mg/dL Creatinine 2.0 (H) 0.7 - 1.2 mg/dL Est, Glom Filt Rate 32 (L) >60 mL/min/1.73m2 Calcium 9.1 8.6 - 10.4 mg/dL CBC auto differential Collection Time: 03/08/25 8:02 AM Result Value Ref Range WBC 7.7 3.5 - 11.0 k/uL RBC 3.90 (L) 4.21 - 5.77 m/uL Hemoglobin 11.2 (L) 13.5 - 17.5 g/dL Hematocrit 37.2 (L) 41.0 - 53.0 % MCV 95.4 80.0 - 100.0 fL MCH 28.7 26.0 - 34.0 pg MCHC 30.1 (L) 31.0 - 37.0 g/dL RDW 14.1 11.5 - 14.9 % Platelets 231 150 - 450 k/uL MPV 9.5 8.0 - 13.5 fL NRBC Automated 0.0 0 per 100 WBC Neutrophils % 56 36 - 66 % Lymphocytes % 29 24 - 44 % Monocytes % 8 3 - 12 % Eosinophils % 5 (H) 0 - 4 % Basophils % 1 0 - 2 % Immature Granulocytes % 1 (H) 0 % Neutrophils Absolute 4.31 1.50 - 8.10 k/uL Lymphocytes Absolute 2.24 1.10 - 3.70 k/uL Monocytes Absolute 0.59 0.10 - 1.20 k/uL Eosinophils Absolute 0.39 0.00 - 0.44 k/uL Basophils Absolute 0.04 0.00 - 0.20 k/uL Immature Granulocytes Absolute 0.08 0.00 - 0.30 k/uL Consultations: IP CONSULT TO DIETITIAN IP CONSULT TO SOCIAL WORK IP CONSULT TO INTERNAL MEDICINE IP CONSULT TO NEPHROLOGY Assessment : Primary Problem Hip fracture, left, sequela Active Hospital Problems Diagnosis Date Noted S/P hip hemiarthroplasty [Z96.649] 03/01/2025 Closed fracture of left hip (HCC) [S72.002A] 03/01/2025 Hip fracture, left, sequela [S72.002S] 02/28/2025 Plan: Left hip fracture status post left hip hemiarthroplasty, on 02/25 Coronary artery disease status post CABG, on aspirin, not on statin, patient could not tell me whether he is allergic to statin or not, review of previous office visit notes, Lipitor is not mentionedin his home medication list, will discuss with close family, regarding previous documented statin allergies, patient, recently evaluated by loading unit operator, last LDL was 71 CHF, compensated Parkinson disease, follows closely with neurology as outpatient Dementia on Namenda Hypothyroidism on Synthroid and liothyronine , TSH tested recently is okay Chronic kidney disease, creatinine increased to 2, diuretics kept on hold, patient evaluated by table worker starting patient on heparin 5000 every 8 for DVT prophylaxis Underwent CT of chest, concerning for pancreatic cyst, need outpatient evaluation by MRCP on nonemergent basis Clint Scales MD 03/08/2025 2:13 PM Copy sent to Pipe Doe MD Please note that this chart was generated using voice recognition [employer] dictation software. Although every effort was made to ensure the accuracy of this automated physical education professor, some errors in physical education professor may have occurred. * Herlinda Mccoy - 03/08/2025 12:49 PM EDT Comprehensive Nutrition Assessment Type and Reason for Visit: Reassess Nutrition Recommendations/Plan: Continue current diet. Change oral nutrition supplement to Glucerna x1 daily. Malnutrition Assessment: Malnutrition Status: At risk for malnutrition (03/01/25 1338) Context: Acute Illness Findings of the 6 clinical characteristics of malnutrition: Energy Intake: Mild decrease in energy intake Weight Loss: No weight loss Body Fat Loss: (suspect age related loss) Muscle Mass Loss: (suspect age related loss) Fluid Accumulation: Mild (not related to nutritional status) Extremities Contour Stitcher Strength: Not Performed Nutrition Assessment: RN reports Pt's intake to vary by meal; Pt was observed to have consumed ~25% of lunch today. Pt stated that he does not prefer the chocolate Ensure oral nutrition supplement as he is worried that itmay contain too much sugar. Pt was educated on the nutrient contents of his prescribed oral nutrition supplement. Pt is open to trying an alternative oral nutrition supplement. Pt remains confused atbaseline, and believed his lunch to be his breakfast. Nutrition Related Findings: Edema: RLE +1, LLE +1. Meds: Synthroid, Aspirin. BUN: 41 (9/3), Creatinine: 2 (9/3), eGFR: 32 (9/3), Glucose: 127 (9/3). Other labs and meds reviewed. BM: 02/19; Pt refuses meds to facilitate bowel movements. Pt is disoriented at baseline. Wound Type: Surgical Incision Current Nutrition Intake & Therapies: Average Meal Intake: 26-50% (Intake fluctuates with food preferences.) Average Supplements Intake: Unable to assess ADULT DIET; Regular ADULT ORAL NUTRITION SUPPLEMENT; Lunch; Diabetic Oral Supplement Anthropometric Measures: Height: 185.4 cm (6' 0.99 ) [place] Body Weight (IBW): 184 lbs (84 kg) Admission Body Weight: 97 kg (213 lb 13.5 oz) (02/28) Current Body Weight: 97 kg (213 lb 13.5 oz), 116.2 % IBW. Weight Source: Bed scale (02/28) Current BMI (kg/m2): 28.2 Usual Body Weight: 95.3 kg (210 lb) (Stated) % Weight Change (Calculated): 1.8 BMI Categories: Overweight (BMI 25.0-29.9) Estimated Daily Nutrient Needs: Energy Requirements Based On: Formula Weight Used for Energy Requirements: Admission Energy (kcal/day): 9111-[address] Jeor using 1.2-1.3 factors. Weight Used for Protein Requirements: Admission Protein (g/day): 97 grams of protein per day based on 1 gram of protein per kg (may vary based on renal function and healing needs). Fluid (ml/day): per physician Nutrition Diagnosis: Inadequate oral intake related to acute injury/trauma as evidenced by intake 51-75% Nutrition Interventions: Food and/or Nutrient Delivery: Continue Current Diet, Modify Oral Nutrition Supplement Nutrition Education/Counseling: Education/Counseling not appropriate Coordination of Nutrition Care: Continue to monitor while inpatient Goals: Goals: Meet at least 75% of estimated needs Type of Goal: Continue current goal Previous Goal Met: Progressing toward Goal(s) Nutrition Monitoring and Evaluation: Food/Nutrient Intake Outcomes: Food and Nutrient Intake, Supplement Intake Physical Signs/Symptoms Outcomes: Biochemical Data, Fluid Status or Edema, Weight, Skin, Constipation Discharge Planning: No discharge needs at this time Neelam Armenta Intern Contact: Cosigned by Yael Barrett, DAINA, LD at 03/08/2025 6:08 PM EDT * Ella Arzola MD - 03/08/2025 11:20 AM EDT NEPHROLOGY PROGRESS NOTE Patient : Leanna Nguyễn; 84 y.o. Location: 2619/2619-01 Attending: Juan Ramon Lucero MD Admit Date: 02/28/2025 Hospital Day: 8 Reason for consultation: Management of acute kidney injury superimposed on chronic kidney disease stage IIIb. Requesting physician: Juan Ramon Lucero MD. Interval history: Patient was seen and examined today and is comfortable at rest. Pain control is adequate. He is nonoliguric. Laboratory study results were reviewed. History of Present Illness: This is a 84 y.o. male Patient with past medical history of atherosclerotic coronary artery diseasestatus post CABG, history of hyperlipidemia, essential hypertension, hypothyroidism, Parkinson's disease dementia with baseline disorientation former smoker, history of pulmonary fibrosis mild bilateral cardiac carotid artery disease, CKD stage III. Patient presented to [facility] on 02/25/2025 with complaints of left hip pain after he recently sustained a fall, patient denies dizziness nausea vomiting chest pain X-ray showed displaced femoral neck fracture of left hip, patient underwent left hip hemiarthroplasty on 02/25/2025 Patient serum creatinine on admission 1 on 02/25/2025 noted with 2.8 mg/dL and therefore nephrology was consulted, during the hospital stay kidney function improved to 1.8 mg/dL on 02/27/2025, patient was discharged to acute rehab. Nephrology was consulted to follow for ANIYA on CKD. Patient seen and examined at acute rehab no acute events patient is tired and exhausted after the physical therapy laying comfortably not in acute distress Current Medications: aspirin EC tablet 81 mg, Daily methocarbamol (ROBAXIN) tablet 500 mg, 4x Daily miconazole (MICOTIN) 2 % powder, BID heparin (porcine) injection 5,000 Units, 3 times per day polyethylene glycol (GLYCOLAX) packet 17 g, Daily senna (SENOKOT) tablet 17.2 mg, Daily PRN bisacodyl (DULCOLAX) suppository 10 mg, Daily PRN acetaminophen (TYLENOL) tablet 650 mg, Q6H PRN carbidopa-levodopa (SINEMET) 25-100 MG per tablet 1 tablet, TID levothyroxine (SYNTHROID) tablet 100 mcg, Daily liothyronine (CYTOMEL) tablet 5 mcg, Daily melatonin tablet 3 mg, Nightly PRN memantine (NAMENDA) tablet 10 mg, BID ondansetron (ZOFRAN-ODT) disintegrating tablet 4 mg, Q8H PRN oxyCODONE (ROXICODONE) immediate release tablet 5 mg, Q4H PRN Or oxyCODONE HCl (OXY-IR) immediate release tablet 10 mg, Q4H PRN sertraline (ZOLOFT) tablet 25 mg, Daily Objective: CURRENT TEMPERATURE: Temp: 97.9 F (36.6 C) MAXIMUM TEMPERATURE OVER 24HRS: Temp (24hrs), Av.9 F (36.6 C), Min:97.8 F (36.6 C), Max:97.9 F (36.6 C) CURRENT RESPIRATORY RATE: Respirations: 16 CURRENT PULSE: Pulse: 62 CURRENT BLOOD PRESSURE: BP: 116/67 24HR BLOOD PRESSURE RANGE: Systolic (24hrs), Av , Min:116 , Max:133 ; Diastolic (24hrs), Av, Min:60, Max:67 24HR INTAKE/OUTPUT: No intake or output data in the 24 hours ending 03/08/25 1120 Physical Exam: GENERAL APPEARANCE: Comfortable not in acute distress HEAD: normocephalic NOSE: No nasal discharge. CARDIAC: Normal S1 and S2. No S3, S4 or murmurs. Rhythm is regular. LUNGS: Clear to auscultation without rales, rhonchi, wheezing or diminished breath sounds. ABDOMEN: Soft with no palpable organomegaly. Normal bowel sounds. MUSKULOSKELETAL: Adequately aligned spine. No joint erythema or tenderness. EXTREMITIES: No edema. Peripheral pulses intact. NEURO: Awake and alert; no focal neurologic deficits. Labs: CBC: Recent Labs 03/08/25 0802 WBC 7.7 RBC 3.90* HGB 11.2* HCT 37.2* MCV 95.4 MCH 28.7 MCHC 30.1* RDW 14.1 PLT 231 MPV 9.5 BMP: Recent Labs 03/06/25 1607 03/08/25 0802 NA 138 138 K 4.7 4.3 CL 100 102 CO2 25 23 BUN 44* 41* CREATININE 2.0* 2.0* GLUCOSE 101* 127* CALCIUM 9.2 9.1 Assessment/plan: 1. Acute kidney injury superimposed on chronic kidney disease stage IIIb - consistent with prerenalazotemia. Renal function is stable with serum creatinine 2.0 mg/dL today. Will continue to hold diuretics. Plan: Avoid nephrotoxic agents. Monitor urine output closely. Basic metabolic profile daily. 2. Systemic hypertension - blood pressure is adequately controlled. 3. Fall from height with displaced left femoral neck fracture - s/p left hip hemiarthroplasty on 02/25/2025. Pain control is adequate. Prognosis is guarded. * Bela Roe SLP - 03/08/2025 10:32 AM EDT SPEECH LANGUAGE PATHOLOGY Speech Language Pathology [facility] Cognitive Treatment Note Date: 03/08/2025 Patient s Name: Leanna Nguyễn Diagnosis: Patient Active Problem List Diagnosis Code Left displaced femoral neck fracture (HCC) S72.002A Fall W19.XXXA ANIYA (acute kidney injury) N17.9 Parkinson's disease ([facility]) G20.A1 Coronary artery disease involving [place] coronary artery of [place] heart without angina pectoris I25.10 Hip fracture, left, sequela S72.002S S/P hip hemiarthroplasty Z96.649 Closed fracture of left hip (HCC) S72.002A Pain Rating: no c/o pain Pain Location: N/A Non-Pharmaceutical Pain Intervention: N/A Cognitive Treatment Treatment time: ULTRA SOUND TECHNICIAN Individual Minutes Time In: 929 Time Out: 1000 Minutes: 30 Subjective: [x] Alert [x] Cooperative [] Confused [] Agitated [] Lethargic Objective/Assessment: Attention: Pt required intermittent repetition d/t very [place] Orientation: n/a Recall: n/a Problem Solving/Reasoning: Pt. ID problem in picture and provided appropriate solution c 60%, 90% ccues. State item in category beginning c given letter- 90%, 100% c cues. Abstract convergent categorization- 0%, concrete convergent categorization- 84%, 100% c cues and add item to list- 50%, 100% ccues. Other: Pt. Pleasant and interactive t/o. Plan: [x] Continue ST services [] Discharge from ST: Discharge recommendations: [x] Further therapy recommended at discharge. [] No therapy recommended at discharge. Treatment completed by: Bela Roe M.A.CCC/ULTRA SOUND TECHNICIAN * Megan Thompson MD - 03/08/2025 9:03 AM EDT Physical Medicine & Rehabilitation Progress Note Subjective: Patient is an 84-year-old male with left hip fracture s/p hemiarthroplasty. He reports doing fine today. He denies any pain at the time of evaluation. He denies any other acute concerns. He states that he had a bowel movement yesterday, although it is unclear if this is accurate. ROS: Denies fevers, chills, sweats. No chest pain, palpitations, lightheadedness. Denies coughing, wheezing or shortness of breath. Denies abdominal pain, nausea, diarrhea or constipation. No new areas of joint pain. Denies new areas of numbness or weakness. Denies new anxiety or depression issues. No new skin problems. Rehabilitation: PT: Bed mobility Rolling to Left: 2 Person assistance, Substantial/Maximal assistance Rolling to Right: 2 Person assistance, Substantial/Maximal assistance Supine to Sit: Substantial/Maximal assistance Sit to Supine: Substantial/Maximal assistance, 2 Person assistance Scooting: Substantial/Maximal assistance Bed Mobility Comments: Bed flat, rails used Transfers Sit to Stand: 2 Person Assistance, Substantial/Maximal assistance Stand to Sit: 2 Person Assistance, Partial/Moderate assistance Bed to Chair: Dependent/Total Stand Pivot Transfers: Dependent/Total Comment: Lynette Mauricio Ambulation WB Status: WBAT L LE Ambulation Surface: Level tile Device: Rolling Walker Other Apparatus: Wheelchair follow (close WC follow) Assistance: Partial/Moderate assistance Quality of Gait: Improved wt. shifting with therapist cues. Improved posture with tactile cues. Flexed kneed with fatigue. Gait Deviations: Slow Wendy Distance: 57 ft; 86 ft (Seated WC break between.) Comments: Not attempted today. More Ambulation?: No OT: Feeding: Setup Grooming: Supervision Grooming Skilled Clinical Factors: brush teeth, wash face seated in w/c up to sink. UE Bathing: Supervision UE Bathing Skilled Clinical Factors: seated in w/c up to sink. LE Bathing: Dependent/Total LE Bathing Skilled Clinical Factors: TA x 2 to stand with RW and wash ronit, bottom. seated- pt ableto wash thighs with set up, TA distally. ed pt how far he is allowed to bend to wash LE. pt had difficulty understanding and following this so OT had him hand her the washcloth to provide assist to wash distal LE to keep L hip precautions. UE Dressing: Minimal assistance UE Dressing Skilled Clinical Factors: t shirt. assist needed to pull down shirt in back- did not respond to cues. LE Dressing: Dependent/Total LE Dressing Skilled Clinical Factors: TA don pants over feet, TA x 2 to don pullups, pants over hips stand with lynette mauricio. Putting On/Taking Off Footwear: Dependent/Total Putting On/Taking Off Footwear Skilled Clinical Factors: TA don teds and slipper socks. Toileting: Dependent/Total Toileting Skilled Clinical Factors: TA x 2 stand with RW. Toilet Transfers Equipment Used: Grab bars Toilet Transfer: 2 Person assistance, Dependent/Total Toilet Transfers Comments: max x 2 stand pivot transfer with RW w/c to toilet with grab bars, TA x 2 stand for toileting with RW, then TA x 2 stand with lynette mauricio for transfer off toilet to w/c, then BSC obtained for over the toilet, due to pt max fatigued with mobility and higher surface will be helpful. plan communicated to ns is lynette marin 2. SPEECH: Subjective: [x] Alert [x] Cooperative [] Confused [] Agitated [] Lethargic Objective/Assessment: Attention: Pt required intermittent repetition d/t very [place] Orientation: n/a Recall: n/a Problem Solving/Reasoning: Pt. ID problem in picture and provided appropriate solution c 60%, 90% ccues. State item in category beginning c given letter- 90%, 100% c cues. Abstract convergent categorization- 0%, concrete convergent categorization- 84%, 100% c cues and add item to list- 50%, 100% ccues. Other: Pt. Pleasant and interactive t/o. Objective: BP 116/67 Pulse 62 Temp 97.9 F (36.6 C) (Oral) Resp 12 Ht 1.854 m (6' 0.99 ) Wt 97 kg (213 lb 13.5 oz) SpO2 96% BMI 28.22 kg/m GEN: well developed, well nourished, NAD HEENT: NCAT, EOM grossly intact, mucous membranes pink and moist CV: RRR, no murmurs, rubs or gallops PULM: CTAB, no rales or rhonchi. Respirations WNL and unlabored ABD: soft, ND, BS+ and equal NEURO: Alert. Sensation intact to light touch in the bilateral lower limb. MSK: Moving bilateral upper limbs with at least antigravity strength. Strength 5/5 with bilateral ankle dorsiflexion and plantarflexion. EXTREMITIES: No edema BLEs SKIN: warm dry and intact with good turgor PSYCH: appropriately interactive. Affect WNL. Diagnostics: CBC: Recent Labs 03/08/25 0802 WBC 7.7 RBC 3.90* HGB 11.2* HCT 37.2* MCV 95.4 RDW 14.1 PLT 231 BMP: Recent Labs 03/06/25 1607 03/08/25 0802 NA 138 138 K 4.7 4.3 CL 100 102 CO2 25 23 BUN 44* 41* CREATININE 2.0* 2.0* GLUCOSE 101* 127* BNP: No results for input(s): BNP in the last 72 hours. PT/INR: No results for input(s): PROTIME , INR in the last 72 hours. APTT: No results for input(s): APTT in the last 72 hours. CARDIAC ENZYMES: No results for input(s): CKMB , CKMBINDEX , TROPONINT in the last 72 hours. Invalid input(s): CKTOTAL;3 troponins FASTING LIPID PANEL: Lab Results Component Value Date CHOL 135 02/25/2025 HDL 53 02/25/2025 TRIG 57 02/25/2025 LIVER PROFILE: No results for input(s): AST , ALT , BILIDIR , BILITOT , ALKPHOS in the last 72 hours. Invalid input(s): ALB Current Medications: Current Facility-Administered Medications: aspirin EC tablet 81 mg, 81 mg, Oral, Daily methocarbamol (ROBAXIN) tablet 500 mg, 500 mg, Oral, 4x Daily miconazole (MICOTIN) 2 % powder, , Topical, BID heparin (porcine) injection 5,000 Units, 5,000 Units, SubCUTAneous, 3 times per day polyethylene glycol (GLYCOLAX) packet 17 g, 17 g, Oral, Daily senna (SENOKOT) tablet 17.2 mg, 2 tablet, Oral, Daily PRN bisacodyl (DULCOLAX) suppository 10 mg, 10 mg, Rectal, Daily PRN acetaminophen (TYLENOL) tablet 650 mg, 650 mg, Oral, Q6H PRN OR [DISCONTINUED] acetaminophen (TYLENOL) suppository 650 mg, 650 mg, Rectal, Q6H PRN carbidopa-levodopa (SINEMET) 25-100 MG per tablet 1 tablet, 1 tablet, Oral, TID levothyroxine (SYNTHROID) tablet 100 mcg, 100 mcg, Oral, Daily liothyronine (CYTOMEL) tablet 5 mcg, 5 mcg, Oral, Daily melatonin tablet 3 mg, 3 mg, Oral, Nightly PRN memantine (NAMENDA) tablet 10 mg, 10 mg, Oral, BID ondansetron (ZOFRAN-ODT) disintegrating tablet 4 mg, 4 mg, Oral, Q8H PRN OR [DISCONTINUED] ondansetron (ZOFRAN) injection 4 mg, 4 mg, IntraVENous, Q6H PRN oxyCODONE (ROXICODONE) immediate release tablet 5 mg, 5 mg, Oral, Q4H PRN OR oxyCODONE HCl (OXY-IR) immediate release tablet 10 mg, 10 mg, Oral, Q4H PRN sertraline (ZOLOFT) tablet 25 mg, 25 mg, Oral, Daily Reviewed notes from internal medicine, nephrology, PT, OT, ST. Impression/Plan: Impaired ADLs, gait, and mobility due to: Left femoral neck fracture secondary to fall s/p left hip hemiarthroplasty: surgery 02/[address] Downing. PT/OT for gait, mobility, strengthening, endurance, ADLs, and self care - 900 minute plan. Pain control with PRN Tylenol, PRN Oxycodone. Muscle spasms: Robaxin 500 mg 4 times daily started 03/05. Parkinson's Disease: on sinemet Dementia: on Namenda. Venous stasis dermatitis: Complains of pain with compression stockings, no signs or symptoms of infection/cellulitis. Continue to monitor. Essential hypertension: Per history, not currently on antihypertensive medications. Blood pressure well-controlled. Continue to monitor. Hyperlipidemia: lipid panel reviewed by Cardiology in acute care, monitoring off of cholesterol medications for now. Coronary artery disease: CABG in 2010. On Aspirin CHF: Torsemide held in setting of hypokalemia, not continued at discharge from acute care - nephrology discontinued 03/07 after restarting it. Compensated. Pulmonary fibrosis ANIYA on CKD stage IIIb: Baseline Cr ~2.1. Creatinine 2 on 03/06. Nephrology following - discontinued torsemide. Continue to monitor with periodic labs. Hypothyroidism: on synthroid, on liothyronine. TSH 1.91 02/25. Depression: on Zoloft Possible pancreatic cysts: Identified on chest CT, consider outpatient evaluation for MRCP on nonemergent basis. Bowel Management: Miralax daily, senokot prn, dulcolax prn. DVT Prophylaxis: SCD's while in bed, RIDDHI's during the day, and ASA 81 mg BID per Ortho protocol Internal Medicine for medical management Follow up: PCP 1-2 weeks, Orthopedic Surgery - Dr. Downing * Brianne Rich, SOFTWARE DEVELOPMENT ENGINEER - 03/07/2025 4:37 PM EDT Physical Therapy [facility] Acute Rehabilitation Physical Therapy Treatment Date: 03/07/25 Patient Name: Leanna Nguyễn Room: 2619/2619-01 Account: [id number] : 1940 (84 y.o.) Gender: male Additional Pertinent Hx: HISTORY OF PRESENT ILLNESS: This is an 84-year-old gentleman with history of atherosclerotic CAD s/p CABG, dyslipidemia, essential hypertension, hypothyroidism, Parkinson's disease, dementia with baseline disorientation, former smoker, pulmonary fibrosis, mild bilateral carotid artery disease, chronic kidney disease, chronic lower extremity edema, migraine headache and generalized osteoarthritis presented to the emergency room with complaints of left hip pain after he sustained a mechanical fall. Patient was sitting on the toilet, reached over and fell on the floor. He denies any loss of consciousness, dizziness or lightheadedness. Imaging shows displaced left femoral neck fracture, Dr Downing perform L Hip Hemiarthroplasty on 02/25/25. Pt allowed WBAT L LE for mobility. Response To Previous Treatment: Patient with no complaints from previous session. Family/Caregiver Present: No Referring Practitioner: Dr. Betancourt Referral Date : 02/28/25 Diagnosis: Left femoral neck fracture, S/P Left Hip hemiarthroplasty Follows Commands: Within Functional Limits Treatment Diagnosis: Difficulty walking Past Medical History: has no past medical history on file. Past Surgical History: has a past surgical history that includes hip surgery (Left, 02/25/2025). Restrictions Restrictions/Precautions Restrictions/Precautions: Bed Alarm, Weight Bearing, Fall Risk, Surgical Protocols (WBAT LLE, posterior hip precautions) Activity Level: Up as Tolerated, Up with Assist Required Braces or Orthoses?: No Implants Present? : Metal implants (L blanka arthroplasty) Lower Extremity Weight Bearing Restrictions Left Lower Extremity Weight Bearing: Weight Bearing As Tolerated Position Activity Restriction Hip Precautions: Posterior hip precautions, No hip flexion > 90 degrees, No sudden or extreme motions, No hip internal rotation, No hip external rotation, No ADduction Other Position/Activity Restrictions: Procedure: HIP HEMIARTHROPLASTY (Left: Hip) 02.25.[address] Downing-posterior precautions. Pt has history of parkinson's. Subjective Subjective Subjective: Patient agreeable to both AM and PM sessions. Pain Pre-Pain: (Patient tearful with transfers.) Pain Interventions: Nurse notified (Medications given for pain PRN.) Bed Mobility Bed mobility Bed Mobility Comments: Patient up in WC and returned to recliner. Chair alarms in place. Transfers Transfers Sit to Stand: Substantial/Maximal assistance;2 Person Assistance (Mod x2 in // bars) Stand to Sit: Substantial/Maximal assistance;2 Person Assistance Bed to Chair: Dependent/Total (Lynettewillian Mauricio) Stand Pivot Transfers: Substantial/Maximal assistance;2 Person Assistance (To strong side.) Comment: Patient requires slow/ gentle movements with transfers. Mobility Ambulation WB Status: WBAT L LE Ambulation Surface: Level tile Device: Rolling Walker Other Apparatus: Wheelchair follow (close WC follow) Assistance: Partial/Moderate assistance Quality of Gait: Improved wt. shifting with therapist cues. Improved posture with tactile cues. Flexed kneed with fatigue. Gait Deviations: Slow Wendy Distance: 57 ft; 86 ft (Seated WC break between.) More Ambulation?: No Wheelchair Activities Propulsion: Yes Propulsion 1 Propulsion: Manual Level: Level Tile Method: RLE;LLE Level of Assistance: Minimal assistance Description/ Details: Assist for direction and safety. Completed 2 turns. Distance: 108 ft Balance Balance Posture: Fair Sitting - Static: Fair;+ Sitting - Dynamic: Fair;- Standing - Static: Fair;- Standing - Dynamic: Poor;+ PT Exercises PT Exercises PROM Exercises: PROM with orange slider to L knee. A/AROM Exercises: Seated bilat. LE ex. 2x10 reps as tolerated. Patrol Man demonstrated ex. first. Circulation/Endurance Exercises: Seated UBE 5 mins. forward only. Static Sitting Balance Exercises: Mulitple tranfers with education. Completed with RW x 2 reps and with Lynette Mauricio twice. Exercise Equipment: NuStep x 15 workload 6 ; seat 12 and arms 11 Activity Tolerance Activity Tolerance Activity Tolerance: Patient tolerated treatment well Assessment Performance Deficits/Impairments: Decreased functional mobility , Decreased ROM, Decreased strength, Decreased safe awareness, Decreased cognition, Decreased endurance, Decreased vision/visual deficit, Increased pain, Decreased posture History: Hx of Parkinsons, dementia and heart failure. Discharge Recommendations: Home with assist PRN, Home with Home health PT Education Restraints Restraints Initially in Place: No Goals Patient Goals Patient Goals : To work on standing up straight, to go back to [facility] Short Term Goals Time Frame for Short Term Goals: 10 visits Short Term Goal 1: Pt to complete supine<>sit at min A with HOB flat, use of rail Short Term Goal 2: Pt to complete sit to stand transfers with min assist, stand pivot transfers using RW with min assist Short Term Goal 3: Pt to ambulate with RW for 25 feet min assist Short Term Goal 4: Pt to improve standing balance to F+/F to reduce fall risk Short Term Goal 5: Pt to improve left hip strength to 3+/5, and knee strength to 4/5 to facilitate increased independence with gait, transfers Additional Goals?: Yes Short Term Goal 6: Pt to demonstrate posterior hip precautions with mod cueing during transfers andbed mobility Short Term Goal 7: Pt to propel wheelchair for 50 feet using UEs and LEs as able with SBA Short Term Goal 8: Pt to participate in TUG test if able using RW Test Technician Goals Time Frame for Group Home Goals : By d/c Test Technician Goal 1: Pt to complete bed mobility sup<>sit with SBA using rail prn Test Technician Goal 2: Pt to complete sit to stand, stand pivot and car transfers with RW SBA Test Technician Goal 3: Pt to ambulate with RW for 50 feet or > SBA with cues for safety/posture Test Technician Goal 4: Pt to picking supervisor object from floor using banquet houseperson and UE support on RW with SBA Group Home Goal 5: Pt to improve balance and safety with ambulation as evidence by ability to complete TUG test in 30 seconds or less using RW Additional Goals?: Yes tong setter goal 6: Pt to complete LE supine and seated ther ex for strengthening with min assist using handout Plan of Care Physical Therapy Plan General Plan: (900 minutes per week of combined PT, OT, ST due to poor tolerance to activity 2* high levels of pain and cognitive deficits) Current Treatment Recommendations: Strengthening, ROM, Balance training, Functional mobility training, Transfer training, Gait training, Stair training, Neuromuscular re-education, Pain management, Home exercise program, Safety education & training, Patient/Caregiver education & training, Equipment evaluation, education, & procurement, Therapeutic activities, Wheelchair mobility training Safety Devices Type of Devices: All fall risk precautions in place, Call light within reach, Chair alarm in place,Gait belt, Patient at risk for falls, Left in chair, Nurse notified PT Minutes 03/07/25 1000 03/07/25 1255 PT Individual Minutes Time In 1000 1255 Time Out 1105 1330 Minutes 65 35 Cosigned by Sridhar Simpson PT at 03/08/2025 5:49 PM EDT * Emeterio Littlejohn OTA - 03/07/2025 3:13 PM EDT [facility] Acute Rehabilitation Occupational Therapy Daily Treatment Note Date: 03/07/25 Patient Name: Leanna Nguyễn Room: 2619/2619-01 Account: [id number] : 1940 (84 y.o.) Gender: male Diagnosis: left femoral neck fracture following fall. L hip Hemiarthroplasty , parkinson's. Additional Pertinent Hx: Leanna Nguyễn is a 84 y.o. right-handed male admitted to the [facility] unit on 02/28/2025. He was originally admitted to [facility] on 02/25/2025 for left femoral neck fracture following fall. 84-year-old male with a history of Parkinson's, CHF, coronary artery disease, CABG, hyperlipidemia, hypertension, altered mental status, syncope and collapse, pulmonary fibrosis, CKD and dementia presenting with hip pain after fall. Patient is disoriented at baseline. Cardiology 02/26-aspirin resumed, torsemide held in setting of hypokalemia. Internal medicine-left femoral neck fracture status post left hip hemiarthroplasty 02/25 lives in assisted living Ortho-displaced femoral neck fracture status post left hip hemiarthroplasty on 02/25 Nephrology- patientnoted to have ANIYA on CKD postoperative, UA and renal ultrasound unremarkable. Improved with gentle rehydration. Palliative care brother has power of civil attorney no , no children parents are deceasedSteve is the only sibling and next of kin reports that his daughter Kimberly is secondary, brother feels he can make his own decision, currently full code Treatment Diagnosis: impaired self care status d/t L hip hemiarthroplasty Past Medical History: has no past medical history on file. Past Surgical History: has a past surgical history that includes hip surgery (Left, 02/25/2025). Restrictions Restrictions/Precautions Restrictions/Precautions: Bed Alarm, Weight Bearing, Fall Risk, Surgical Protocols (WBAT LLE, posterior hip precautions) Activity Level: Up as Tolerated, Up with Assist Required Braces or Orthoses?: No Implants Present? : Metal implants (L blanka arthroplasty) Position Activity Restriction Hip Precautions: Posterior hip precautions, No hip flexion > 90 degrees, No sudden or extreme motions, No hip internal rotation, No hip external rotation, No ADduction Other Position/Activity Restrictions: Procedure: HIP HEMIARTHROPLASTY (Left: Hip) 02.25.[address] Downing-posterior precautions. Pt has history of parkinson's. Lower Extremity Weight Bearing Restrictions Left Lower Extremity Weight Bearing: Weight Bearing As Tolerated Vitals Subjective Subjective Subjective: Pt supine in bed when LOWE arrived. Objective Cognition Overall Orientation Status: Within Functional Limits Orientation Level: Oriented to person;Disoriented to place;Disoriented to time;Disoriented to situation (Pt reports he is here for his foot) Cognition Overall Cognitive Status: Exceptions Arousal/Alertness: Inconsistent responses to stimuli Following Commands: Follows one step commands with repetition;Inconsistently follows commands Attention Span: Attends with cues to redirect Memory: Decreased recall of recent events;Decreased recall of precautions;Decreased short term memory Safety Judgement: Decreased awareness of need for assistance;Decreased awareness of need for safety Problem Solving: Assistance required to generate solutions;Assistance required to identify errors made;Assistance required to correct errors made;Assistance required to implement solutions;Decreased awareness of errors Insights: Not aware of deficits Initiation: Requires cues for some Sequencing: Requires cues for some Cognition Comment: good attention to task, sequencing and initiation with grooming, UE bathe and dress in am upon 1st getting up from bed to w/c. this pm, pt initiated request for a drink of water. pt did not like HOB being elevated to safely take a drink but agreed to be up briefly then return to HOB lower. when OT starting to check- pt stated he was dry (briefs) and he was accurate. OT startingto don boots but pt communicated his distaste for wearing mediplex boots, with ed he agreed to heels floated on pillow Activities of Daily Living Grooming/Oral Hygiene Assistance Level: Independent Skilled Clinical Factors: brushed teeth, washed face seated in w/c up to sink. Upper Extremity Bathing Assistance Level: Supervision Skilled Clinical Factors: pt completed task seated WC level at the sink Lower Extremity Bathing Assistance Level: Dependent Skilled Clinical Factors: pt dependent for LB bathing standing with RW with LOWE providing pt with assistance for stability with tactile cues for upright standing posture and stability with LOWE performing task for pt with BUE support (animal rehabilitator SBA) Upper Extremity Dressing Assistance Level: Minimal assistance Skilled Clinical Factors: Pt min A for don/doff of shirt with LOWE providing pt with min A for sequencing of task for threading BUE through sleeves of shirt. Lower Extremity Dressing Assistance Level: Dependent Skilled Clinical Factors: pt dependent for LB dressing task with LOWE providing pt with hand over hand assist to guide pt through task for the use of banquet houseperson to doff/don pants for threading BLE through legs of pants pt max A for stand to RW pt dependent for LB clothing management with LOWE providing pt with education on upright standing posture and stability to increase pt I with all aspects of LB dressing task duringADLs. Mobility Bed Mobility Overall Assistance Level: Maximum Assistance Additional Factors: Set-up;Verbal cues;Increased time to complete Roll Left Assistance Level: Dependent Skilled Clinical Factors: pt dependent for asssistance with BLE to side of bed and trunk follow through. Supine to Sit Assistance Level: Dependent Skilled Clinical Factors: Pt dependent for sequencing of supine to sit with LOWE providing pt with hand over hand assist to guide pt through task for BLE/trunk follow through. Scooting Assistance Level: Dependent Skilled Clinical Factors: With LOWE using heide pad to advance pt hips forward to EOB. Transfers Surface: From bed;Wheelchair Additional Factors: Set-up;Verbal cues;Hand placement cues;Increased time to complete Device: Walker Sit to Stand Assistance Level: Maximum assistance Skilled Clinical Factors: pt max A with education on hand placement and the use of correct body mechanics. Stand to Sit Assistance Level: Maximum assistance Skilled Clinical Factors: pt max A with education on hand placement and the use of correct body mechanics. Bed To/From Chair Technique: Stand pivot Assistance Level: Maximum assistance Skilled Clinical Factors: with use of RW with assistance for safety and sequencing of transfers. Functional Mobility Device: Wheelchair Activity: To/From bathroom Assistance Level: Dependent Assessment Assessment Activity Tolerance: Patient tolerated treatment well Discharge Recommendations: Continue to assess pending progress Patient Education Education Education Given To: Patient Education Provided: Role of Therapy;Plan of Care;ADL Function;Safety;Transfer Training Education Provided Comments: pt with memory deficits but benefits from repetion of adl and mobilitytasks and is given directions as needed for tasks. Education Method: Demonstration;Verbal Barriers to Learning: Cognition Education Outcome: Demonstrated understanding OT Equipment Recommendations Equipment Needed: (CTA) Other: TBD - uncertain if pt can return to assisted living setting- he had walk in shower with seatand grab bars for shower and toilet. he has call alert. Safety Devices Safety Devices in place: Yes Type of devices: Chair alarm in place;Call light within reach;All fall risk precautions in place;Nurse notified Family education To be arranged Goals Patient Goals Patient goals : pt Short Term Goals Time Frame for Short Term Goals: 1 week Short Term Goal 1: indep feeding and grooming Short Term Goal 2: Pt will complete UB ADLs with set up A and Good cognition Short Term Goal 3: max x 1 toileting- LE bathe bottom and pants over hips assist stand with BUE support on lynette stedy or least restrictive device. Short Term Goal 4: concha 4-5 min static stand with BUE support with mod A of 1. Short Term Goal 5: Pt will participate in 30+ minutes of therapeutic exercises/functional activities to increase safety and independence with self care and mobility Additional Goals?: Yes Short Term Goal 6: concha 10 reps shld, elbow AROM with mod resistance on R and min on L for BUE strengthening for use during mobility for adls. Short Term Goal 7: able to tolerate safely performing adl transfers with max A x 2 and RW 50 % of the time during therapy. Test Technician Goals Time Frame for Test Technician Goals : by discharge Test Technician Goal 1: mod x 1 LE bathe and dress (with cues, assist provided due to pt poor memory withL hip precautions. ) Group Home Goal 2: mod x 1 toileting and adl transfers Test Technician Goal 3: concha 6-7 min stand, transfer, amb with BUE support on RW and mod A. Test Technician Goal 4: concha 15 reps shld, elbow AROM with mod resistance on R and min on L for BUE strengthening for use during mobility for adls. Group Home Goal 5: increase MMT B elbow to 4+/5, L shld to 4-/5 and R shld to 4/5 to demo improved BUE strengthening for use during mobility for adls. Plan Occupational Therapy Plan Times Per Week: 900 min of PT/OT/ST Times Per Day: Twice a day Current Treatment Recommendations: Strengthening, Balance training, Functional mobility training, Endurance training, Pain management, Safety education & training, Patient/Caregiver education & training, Equipment evaluation, education, & procurement, Positioning, Self-Care / ADL, Co-Treatment, Cognitive/Perceptual training, Wheelchair mobility training 03/07/25 0800 03/07/25 1000 OT Individual Minutes Time In 0800 1400 Time Out 0908 1438 Minutes 68 38 Cosigned by Jane Aldridge OTR/L at 03/08/2025 7:37 AM EDT * Clint Scales MD - 03/07/2025 3:08 PM EDT IN-PATIENT SERVICE [facility] Internal Medicine Progress note Date: 03/07/2025 Patient name: Leanna Nguyễn Date of admission: 02/28/2025 3:30 PM Account: [id number] Date of : 1940 PCP: Pipe Jeffers MD Room: [address] [place] [address] Code Status: Full Code Physician Requesting Consult: Juan Ramon Lucero MD Reason for Consult: medical management Chief Complaint: Medical management History Obtained From: Patient medical record nursing staff History of Present Illness: Patient, has past medical history multiple medical problem, which include coronary artery disease status post CABG, CHF, hypothyroidism, hypertension, hyperlipidemia, pulmonary fibrosis, chronic kidney disease, Parkinson disease, dementia, patient presented to [facility] after a fall, he had left hip pain, found to have acute subcapital left femoral neck fracture, patient underwent left hip hemiarthroplasty on 02/25 While in hospital, patient had worsening creatinine, was evaluated by table worker, treated with IVfluids, torsemide was kept on hold, patient, creatinine improved to his baseline, Patient required Shell's catheter placement which was later removed Transferred to [facility], acute rehab unit for further management Past Medical History: History reviewed. No pertinent past medical history. Past Surgical History: Past Surgical History: Procedure Laterality Date HIP SURGERY Left 02/25/2025 HIP HEMIARTHROPLASTY performed by Ana Downing MD at [facility] OR Medications Prior to Admission: Prior to Admission medications Medication Sig Start Date End Date Taking? Authorizing Provider amLODIPine (NORVASC) 2.5 MG tablet Take 1 tablet by mouth daily Ruth Howe MD aspirin 81 MG chewable tablet Take 1 tablet by mouth daily Ruth Howe MD carbidopa-levodopa (SINEMET) 10-100 MG per tablet Take 1 tablet by mouth 3 times daily Ruth Howe MD cephALEXin (KEFLEX) 500 MG capsule Take 1 capsule by mouth 2 times daily Ruth Howe MD folic acid (FOLVITE) 400 MCG tablet Take 1 tablet by mouth daily Ruth Howe MD levothyroxine (SYNTHROID) 100 MCG tablet Take 1 tablet by mouth Daily Ruth Howe MD liothyronine (CYTOMEL) 5 MCG tablet Take 1 tablet by mouth daily Ruth Howe MD memantine (NAMENDA) 10 MG tablet Take 1 tablet by mouth 2 times daily Ruth oHwe MD Multiple Vitamins-Minerals (THERAPEUTIC MULTIVITAMIN-MINERALS) tablet Take 1 tablet by mouth daily Ruth Howe MD potassium chloride (KLOR-CON) 20 MEQ packet Take 10 mEq by mouth daily Ruth Howe MD sennosides-docusate sodium (SENOKOT-S) 8.6-50 MG tablet Take 1 tablet by mouth daily Ruth Howe MD sertraline (ZOLOFT) 25 MG tablet Take 1 tablet by mouth daily Ruth Howe MD tolterodine (DETROL) 1 MG tablet Take 1 tablet by mouth 2 times daily Ruth Howe MD torsemide (DEMADEX) 10 MG tablet Take 1 tablet by mouth daily Ruth Howe MD vitamin B-12 (CYANOCOBALAMIN) 500 MCG tablet Take 1 tablet by mouth daily Ruth Howe MD vitamin D 50 MCG (1999 UT) CAPS capsule Take 1 capsule by mouth daily ProviderRuth MD Allergies: Patient has no known allergies. Social History: Tobacco: reports that he has never smoked. He has never been exposed to tobacco smoke. He has neverused smokeless tobacco. Alcohol: has no history on file for alcohol use. Drug Use: reports no history of drug use. Family History: No family history on file. Review of Systems: Positive and Negative as described in HPI. CONSTITUTIONAL: negative for fevers, chills, sweats, fatigue, weight loss HEENT: negative for vision, hearing changes, runny nose, throat pain RESPIRATORY: negative for shortness of breath, cough, congestion, wheezing. CARDIOVASCULAR: negative for chest pain, palpitations. GASTROINTESTINAL: negative for nausea, vomiting, diarrhea, constipation, change in bowel habits, abdominal pain GENITOURINARY: negative for difficulty of urination, burning with urination, frequency INTEGUMENT: negative for rash, skin lesions, easy bruising HEMATOLOGIC/LYMPHATIC: negative for swelling/edema ALLERGIC/IMMUNOLOGIC: negative for urticaria , itching ENDOCRINE: negative increase in drinking, increase in urination, hot or cold intolerance MUSCULOSKELETAL: Pain, left hip NEUROLOGICAL: negative for headaches, dizziness, lightheadedness, numbness, pain, tingling extremities BEHAVIOR/PSYCH: Physical Exam: BP 122/64 Pulse 69 Temp 97.7 F (36.5 C) (Oral) Resp 16 Ht 1.854 m (6' 0.99 ) Wt 97 kg (213 lb 13.5 oz) SpO2 95% BMI 28.22 kg/m Temp (24hrs), Av.9 F (36.6 C), Min:97.7 F (36.5 C), Max:98 F (36.7 C) No results for input(s): POCGLU in the last 72 hours. Intake/Output Summary (Last 24 hours) at 03/07/2025 1509 Last data filed at 03/07/2025 0616 Gross per 24 hour Intake 240 ml Output 800 ml Net -560 ml General Appearance: alert, well appearing, and in no acute distress, wheelchair-bound Mental status: oriented to person, place, and time with normal affect Head: normocephalic, atraumatic. Eye: no icterus, redness, pupils equal and reactive, extraocular eye movements intact, conjunctiva clear Ear: normal external ear, no discharge, hearing intact Nose: no drainage noted Mouth: mucous membranes moist Neck: supple, no carotid bruits, thyroid not palpable Lungs: Bilateral equal air entry, clear to ausculation, no wheezing, rales or rhonchi, normal effort Cardiovascular: normal rate, regular rhythm, no murmur, gallop, rub. Abdomen: Soft, nontender, nondistended, normal bowel sounds, no hepatomegaly or splenomegaly Neurologic: There are no new focal motor or sensory deficits, normal muscle tone and bulk, no abnormal sensation, normal speech, cranial nerves II through XII grossly intact Skin: No gross lesions, rashes, bruising or bleeding on exposed skin area Extremities: Postsurgical changes present left hip, mild edema in left leg Psych: Investigations: Laboratory Testing: Recent Results (from the past 24 hours) Basic Metabolic Panel Collection Time: 03/06/25 4:07 PM Result Value Ref Range Sodium 138 136 - 145 mmol/L Potassium 4.7 3.7 - 5.3 mmol/L Chloride 100 98 - 107 mmol/L CO2 25 20 - 31 mmol/L Anion Gap 13 9 - 16 mmol/L Glucose 101 (H) 74 - 99 mg/dL BUN 44 (H) 8 - 23 mg/dL Creatinine 2.0 (H) 0.7 - 1.2 mg/dL Est, Glom Filt Rate 32 (L) >60 mL/min/1.73m2 Calcium 9.2 8.6 - 10.4 mg/dL Consultations: IP CONSULT TO DIETITIAN IP CONSULT TO SOCIAL WORK IP CONSULT TO INTERNAL MEDICINE IP CONSULT TO NEPHROLOGY Assessment : Primary Problem Hip fracture, left, sequela Active Hospital Problems Diagnosis Date Noted S/P hip hemiarthroplasty [Z96.649] 03/01/2025 Closed fracture of left hip (HCC) [S72.002A] 03/01/2025 Hip fracture, left, sequela [S72.002S] 02/28/2025 Plan: Left hip fracture status post left hip hemiarthroplasty, on 02/25 Coronary artery disease status post CABG, on aspirin, not on statin, patient could not tell me whether he is allergic to statin or not, review of previous office visit notes, Lipitor is not mentionedin his home medication list, will discuss with close family, regarding previous documented statin allergies, patient, recently evaluated by loading unit operator, last LDL was 71 CHF, compensated Parkinson disease, follows closely with neurology as outpatient Dementia on Namenda Hypothyroidism on Synthroid and liothyronine , TSH tested recently is okay Chronic kidney disease, stable, was recently evaluated by table worker Starting patient on heparin 5000 every 8 for DVT prophylaxis Underwent CT of chest, 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 Although every effort was made to ensure the accuracy of this automated physical education professor, some errors in physical education professor may have occurred. * Kevin Pappas SLP - 03/07/2025 10:41 AM EDT SPEECH LANGUAGE PATHOLOGY Speech Language Pathology [facility] Cognitive Treatment Note Date: 03/07/2025 Patient s Name: Leanna Nguyễn Diagnosis: Patient Active Problem List Diagnosis Code Left displaced femoral neck fracture (HCC) S72.002A Fall W19.XXXA ANIYA (acute kidney injury) N17.9 Parkinson's disease ([facility]) G20.A1 Coronary artery disease involving [place] coronary artery of [place] heart without angina pectoris I25.10 Hip fracture, left, sequela S72.002S S/P hip hemiarthroplasty Z96.649 Closed fracture of left hip ([facility]) S72.002A Pain Rating: no c/o pain Pain Location: N/A Non-Pharmaceutical Pain Intervention: N/A Cognitive Treatment Treatment time: ULTRA SOUND TECHNICIAN Individual Minutes Time In: 934 Time Out: 958 Minutes: 24 Subjective: [x] Alert [x] Cooperative [] Confused [] Agitated [] Lethargic Objective/Assessment: Attention: Pt required intermittent cues/repetition to recall directions/stimuli in structured tasks. Orientation: x3/4 temporal, 2/2 spatial concepts recalled with min A for use of external supports. Recall: Delayed recall: 3/3 RI (strategy instruction.). Problem Solving/Reasoning: Multiple causes for problems: 33% (I), improved to 67% max A. Other: Pt in recliner with alarm attached at end of session. Plan: [x] Continue ST services [] Discharge from ST: Discharge recommendations: [x] Further therapy recommended at discharge. [] No therapy recommended at discharge. Treatment completed by: Kevin Pappas M.S., [facility]-ULTRA SOUND TECHNICIAN * Megan Thompson MD - 03/07/2025 8:44 AM EDT Physical Medicine & Rehabilitation Progress Note Subjective: Patient is an 84-year-old male with left hip fracture s/p hemiarthroplasty. He reports doing fine today. He notes left hip pain, which is mild in nature. He denies any other acute concerns. ROS: Denies fevers, chills, sweats. No chest pain, palpitations, lightheadedness. Denies coughing, wheezing or shortness of breath. Denies abdominal pain, nausea, diarrhea or constipation. No new areas of joint pain. Denies new areas of numbness or weakness. Denies new anxiety or depression issues. No new skin problems. Rehabilitation: PT: Bed mobility Rolling to Left: Substantial/Maximal assistance, 2 Person assistance Rolling to Right: Minimal assistance Supine to Sit: Substantial/Maximal assistance, 2 Person assistance Sit to Supine: Substantial/Maximal assistance, 2 Person assistance Scooting: Substantial/Maximal assistance, 2 Person assistance Bed Mobility Comments: Patient up in WC and returned to recliner. Chair alarms in place. Transfers Sit to Stand: Substantial/Maximal assistance, 2 Person Assistance (Mod x2 in // bars) Stand to Sit: Substantial/Maximal assistance, 2 Person Assistance Bed to Chair: Dependent/Total (Lynette Mauricio) Stand Pivot Transfers: Substantial/Maximal assistance, 2 Person Assistance (To strong side.) Comment: Patient requires slow/ gentle movements with transfers. Ambulation WB Status: WBAT L LE Ambulation Surface: Level tile Device: Rolling Walker Other Apparatus: Wheelchair follow (close WC follow) Assistance: Partial/Moderate assistance Quality of Gait: Improved wt. shifting with therapist cues. Improved posture with tactile cues. Flexed kneed with fatigue. Gait Deviations: Slow Wendy Distance: 57 ft; 86 ft (Seated WC break between.) Comments: Pt required cues for upright posture, flexed knee correction, and advancing hands first More Ambulation?: No OT: Feeding: Setup Grooming: Supervision Grooming Skilled Clinical Factors: brush teeth, wash face seated in w/c up to sink. UE Bathing: Supervision UE Bathing Skilled Clinical Factors: seated in w/c up to sink. LE Bathing: Dependent/Total LE Bathing Skilled Clinical Factors: TA x 2 to stand with RW and wash ronit, bottom. seated- pt ableto wash thighs with set up, TA distally. ed pt how far he is allowed to bend to wash LE. pt had difficulty understanding and following this so OT had him hand her the washcloth to provide assist to wash distal LE to keep L hip precautions. UE Dressing: Minimal assistance UE Dressing Skilled Clinical Factors: t shirt. assist needed to pull down shirt in back- did not respond to cues. LE Dressing: Dependent/Total LE Dressing Skilled Clinical Factors: TA don pants over feet, TA x 2 to don pullups, pants over hips stand with lynette mauricio. Putting On/Taking Off Footwear: Dependent/Total Putting On/Taking Off Footwear Skilled Clinical Factors: TA don teds and slipper socks. Toileting: Dependent/Total Toileting Skilled Clinical Factors: TA x 2 stand with RW. Toilet Transfers Equipment Used: Grab bars Toilet Transfer: 2 Person assistance, Dependent/Total Toilet Transfers Comments: max x 2 stand pivot transfer with RW w/c to toilet with grab bars, TA x 2 stand for toileting with RW, then TA x 2 stand with lynette mauricio for transfer off toilet to w/c, then BSC obtained for over the toilet, due to pt max fatigued with mobility and higher surface will be helpful. plan communicated to nsg is lynette Dorsey x 2. SPEECH: Subjective: [x] Alert [x] Cooperative [] Confused [] Agitated [] Lethargic Objective/Assessment: Attention: Pt required intermittent cues/repetition to recall directions/stimuli in structured tasks. Orientation: x3/4 temporal, 2/2 spatial concepts recalled with min A for use of external supports. Recall: Delayed recall: 3/3 RI (strategy instruction.). Problem Solving/Reasoning: Multiple causes for problems: 33% (I), improved to 67% max A. Other: Pt in recliner with alarm attached at end of session. Objective: BP 133/60 Pulse 77 Temp 97.8 F (36.6 C) (Oral) Resp 18 Ht 1.854 m (6' 0.99 ) Wt 97 kg (213 lb 13.5 oz) SpO2 96% BMI 28.22 kg/m GEN: well developed, well nourished, NAD HEENT: NCAT, EOM grossly intact, mucous membranes pink and moist CV: RRR, no murmurs, rubs or gallops PULM: CTAB, no rales or rhonchi. Respirations WNL and unlabored ABD: soft, ND, BS+ and equal NEURO: Alert. Sensation intact to light touch. MSK: Strength 5/5 in the bilateral upper limbs. Strength 5/5 with bilateral ankle dorsiflexion and plantarflexion. EXTREMITIES: No edema BLEs SKIN: warm dry and intact with good turgor PSYCH: appropriately interactive. Affect WNL. Diagnostics: CBC: No results for input(s): WBC , RBC , HGB , HCT , MCV , RDW , PLT in the last 72 hours. BMP: Recent Labs 03/06/25 1607 NA 138 K 4.7 CL 100 CO2 25 BUN 44* CREATININE 2.0* GLUCOSE 101* BNP: No results for input(s): BNP in the last 72 hours. PT/INR: No results for input(s): PROTIME , INR in the last 72 hours. APTT: No results for input(s): APTT in the last 72 hours. CARDIAC ENZYMES: No results for input(s): CKMB , CKMBINDEX , TROPONINT in the last 72 hours. Invalid input(s): CKTOTAL;3 troponins FASTING LIPID PANEL: Lab Results Component Value Date CHOL 135 02/25/2025 HDL 53 02/25/2025 TRIG 57 02/25/2025 LIVER PROFILE: No results for input(s): AST , ALT , BILIDIR , BILITOT , ALKPHOS in the last 72 hours. Invalid input(s): ALB Current Medications: Current Facility-Administered Medications: [START ON 03/08/2025] aspirin EC tablet 81 mg, 81 mg, Oral, Daily methocarbamol (ROBAXIN) tablet 500 mg, 500 mg, Oral, 4x Daily miconazole (MICOTIN) 2 % powder, , Topical, BID heparin (porcine) injection 5,000 Units, 5,000 Units, SubCUTAneous, 3 times per day polyethylene glycol (GLYCOLAX) packet 17 g, 17 g, Oral, Daily senna (SENOKOT) tablet 17.2 mg, 2 tablet, Oral, Daily PRN bisacodyl (DULCOLAX) suppository 10 mg, 10 mg, Rectal, Daily PRN acetaminophen (TYLENOL) tablet 650 mg, 650 mg, Oral, Q6H PRN OR [DISCONTINUED] acetaminophen (TYLENOL) suppository 650 mg, 650 mg, Rectal, Q6H PRN carbidopa-levodopa (SINEMET) 25-100 MG per tablet 1 tablet, 1 tablet, Oral, TID levothyroxine (SYNTHROID) tablet 100 mcg, 100 mcg, Oral, Daily liothyronine (CYTOMEL) tablet 5 mcg, 5 mcg, Oral, Daily melatonin tablet 3 mg, 3 mg, Oral, Nightly PRN memantine (NAMENDA) tablet 10 mg, 10 mg, Oral, BID ondansetron (ZOFRAN-ODT) disintegrating tablet 4 mg, 4 mg, Oral, Q8H PRN OR [DISCONTINUED] ondansetron (ZOFRAN) injection 4 mg, 4 mg, IntraVENous, Q6H PRN oxyCODONE (ROXICODONE) immediate release tablet 5 mg, 5 mg, Oral, Q4H PRN OR oxyCODONE HCl (OXY-IR) immediate release tablet 10 mg, 10 mg, Oral, Q4H PRN sertraline (ZOLOFT) tablet 25 mg, 25 mg, Oral, Daily Reviewed notes from internal medicine, PT, OT, ST. Impression/Plan: Impaired ADLs, gait, and mobility due to: Left femoral neck fracture secondary to fall s/p left hip hemiarthroplasty: surgery 02/[address] Downing. PT/OT for gait, mobility, strengthening, endurance, ADLs, and self care - 900 minute plan. Pain control with PRN Tylenol, PRN Oxycodone. Muscle spasms: Robaxin 500 mg 4 times daily started 03/05. Parkinson's Disease: on sinemet Dementia: on Namenda. Venous stasis dermatitis: Complains of pain with compression stockings, no signs or symptoms of infection/cellulitis. Continue to monitor. Essential hypertension: Per history, not currently on antihypertensive medications. Blood pressure well-controlled. Continue to monitor. Hyperlipidemia: lipid panel reviewed by Cardiology in acute care, monitoring off of cholesterol medications for now. Coronary artery disease: CABG in 2010. On Aspirin CHF: Torsemide held in setting of hypokalemia, not continued at discharge from acute care - nephrology discontinued 03/07 after restarting it. Compensated. Pulmonary fibrosis ANIYA on CKD stage IIIb: Baseline Cr ~2.1. Creatinine 2 on 03/06. Nephrology following - discontinued torsemide. Continue to monitor with periodic labs. Hypothyroidism: on synthroid, on liothyronine. TSH 1.91 02/25. Depression: on Zoloft Possible pancreatic cysts: Identified on chest CT, consider outpatient evaluation for MRCP on nonemergent basis. Bowel Management: Miralax daily, senokot prn, dulcolax prn. DVT Prophylaxis: SCD's while in bed, RIDDHI's during the day, and ASA 81 mg BID per Ortho protocol Internal Medicine for medical management Follow up: PCP 1-2 weeks, Orthopedic Surgery - Dr. Downing * Ella Arzola MD - 03/07/2025 7:46 AM EDT NEPHROLOGY PROGRESS NOTE Patient : Leanna Nguyễn; 84 y.o. Location: 2619/2619-01 Attending: Juan Ramon Lucero MD Admit Date: 02/28/2025 Hospital Day: 7 Reason for consultation: Management of acute kidney injury superimposed on chronic kidney disease stage IIIb. Requesting physician: Juan Ramon Lucero MD. Chief Complaint: Fall Interval history: Patient was seen and examined today and he does not have any acute complaints. Heis nonoliguric and cooperative with physical therapy. Serum creatinine was 2.0 mg/dL on 03/06/2025 [up from 1.7 mg/dL on 03/01/2025]. He does not have shortness of breath. History of Present Illness: This is a 84 y.o. male Patient with past medical history of atherosclerotic coronary artery diseasestatus post CABG, history of hyperlipidemia, essential hypertension, hypothyroidism, Parkinson's disease dementia with baseline disorientation former smoker, history of pulmonary fibrosis mild bilateral cardiac carotid artery disease, CKD stage III. Patient presented to [facility] on 02/25[facility]2025 with complaints of left hip pain after he recently sustained a fall, patient denies dizziness nausea vomiting chest pain X-ray showed displaced femoral neck fracture of left hip, patient underwent left hip hemiarthroplasty on 02/25/2025 Patient serum creatinine on admission 1 on 02/25/2025 noted with 2.8 mg/dL and therefore nephrology was consulted, during the hospital stay kidney function improved to 1.8 mg/dL on 02/27/2025, patient was discharged to acute rehab. Nephrology was consulted to follow for ANIYA on CKD. Patient seen and examined at acute rehab no acute events patient is tired and exhausted after the physical therapy laying comfortably not in acute distress Current Medications: methocarbamol (ROBAXIN) tablet 500 mg, 4x Daily miconazole (MICOTIN) 2 % powder, BID torsemide (DEMADEX) tablet 10 mg, Daily heparin (porcine) injection 5,000 Units, 3 times per day polyethylene glycol (GLYCOLAX) packet 17 g, Daily senna (SENOKOT) tablet 17.2 mg, Daily PRN bisacodyl (DULCOLAX) suppository 10 mg, Daily PRN acetaminophen (TYLENOL) tablet 650 mg, Q6H PRN aspirin EC tablet 81 mg, BID carbidopa-levodopa (SINEMET) 25-100 MG per tablet 1 tablet, TID levothyroxine (SYNTHROID) tablet 100 mcg, Daily liothyronine (CYTOMEL) tablet 5 mcg, Daily melatonin tablet 3 mg, Nightly PRN memantine (NAMENDA) tablet 10 mg, BID ondansetron (ZOFRAN-ODT) disintegrating tablet 4 mg, Q8H PRN oxyCODONE (ROXICODONE) immediate release tablet 5 mg, Q4H PRN Or oxyCODONE HCl (OXY-IR) immediate release tablet 10 mg, Q4H PRN sertraline (ZOLOFT) tablet 25 mg, Daily Objective: CURRENT TEMPERATURE: Temp: 97.7 F (36.5 C) MAXIMUM TEMPERATURE OVER 24HRS: Temp (24hrs), Av.8 F (36.6 C), Min:97.7 F (36.5 C), Max:98 F (36.7 C) CURRENT RESPIRATORY RATE: Respirations: 16 CURRENT PULSE: Pulse: 69 CURRENT BLOOD PRESSURE: BP: 122/64 24HR BLOOD PRESSURE RANGE: Systolic (24hrs), Av , Min:122 , Max:147 ; Diastolic (24hrs), Av, Min:60, Max:65 24HR INTAKE/OUTPUT: Intake/Output Summary (Last 24 hours) at 03/07/2025 0746 Last data filed at 03/07/2025 0616 Gross per 24 hour Intake 480 ml Output 800 ml Net -320 ml Physical Exam: GENERAL APPEARANCE: Comfortable not in acute distress HEAD: normocephalic NOSE: No nasal discharge. CARDIAC: Normal S1 and S2. No S3, S4 or murmurs. Rhythm is regular. LUNGS: Clear to auscultation without rales, rhonchi, wheezing or diminished breath sounds. ABDOMEN: Soft with no palpable organomegaly. Normal bowel sounds. MUSKULOSKELETAL: Adequately aligned spine. No joint erythema or tenderness. EXTREMITIES: No edema. Peripheral pulses intact. NEURO: Awake and alert; no focal neurologic deficits. Labs: CBC: No results for input(s): WBC , RBC , HGB , HCT , MCV , MCH , MCHC , RDW , PLT , MPV in the last 72 hours. BMP: Recent Labs 03/06/25 1607 NA 138 K 4.7 CL 100 CO2 25 BUN 44* CREATININE 2.0* GLUCOSE 101* CALCIUM 9.2 Assessment/plan: 1. Acute kidney injury superimposed on chronic kidney disease stage IIIb - consistent with prerenalazotemia. Serum creatinine is trending up again with reinstitution of diuretics. He is not clinically in volume overload. Plan: Hold torsemide. Avoid nephrotoxic agents. Monitor urine output closely. Basic metabolic profile daily. 2. Systemic hypertension - blood pressure is adequately controlled. 3. Fall from height with displaced left femoral neck fracture - s/p left hip hemiarthroplasty on 02/25/2025. Pain control is adequate. Prognosis is guarded. * Brianne Rich PTA - 03/06/2025 4:17 PM EDT Physical Therapy [facility] Physical Therapy Treatment Date: 03/06/25 Patient Name: Leanna Nguyễn Room: 2619/2619-01 Account: [id number] : 1940 (84 y.o.) Gender: male Additional Pertinent Hx: HISTORY OF PRESENT ILLNESS: This is an 84-year-old gentleman with history of atherosclerotic CAD s/p CABG, dyslipidemia, essential hypertension, hypothyroidism, Parkinson's disease, dementia with baseline disorientation, former smoker, pulmonary fibrosis, mild bilateral carotid artery disease, chronic kidney disease, chronic lower extremity edema, migraine headache and generalized osteoarthritis presented to the emergency room with complaints of left hip pain after he sustained a mechanical fall. Patient was sitting on the toilet, reached over and fell on the floor. He denies any loss of consciousness, dizziness or lightheadedness. Imaging shows displaced left femora l neck fracture, Dr Downing perform L Hip Hemiarthroplasty on 02/25/25. Pt allowed WBAT L LE for mobility. Response To Previous Treatment: Patient with no complaints from previous session. Family/Caregiver Present: No Referring Practitioner: Dr. Betancourt Referral Date : 02/28/25 Diagnosis: Left femoral neck fracture, S/P Left Hip hemiarthroplasty Follows Commands: Within Functional Limits Treatment Diagnosis: Difficulty walking Past Medical History: has no past medical history on file. Past Surgical History: has a past surgical history that includes hip surgery (Left, 02/25/2025). Restrictions Restrictions/Precautions Restrictions/Precautions: Bed Alarm, Weight Bearing, Fall Risk, Surgical Protocols (WBAT LLE, posterior hip precautions) Activity Level: Up as Tolerated, Up with Assist Required Braces or Orthoses?: No Implants Present? : Metal implants (L blanka arthroplasty) Lower Extremity Weight Bearing Restrictions Left Lower Extremity Weight Bearing: Weight Bearing As Tolerated Position Activity Restriction Hip Precautions: Posterior hip precautions, No hip flexion > 90 degrees, No sudden or extreme motions, No hip internal rotation, No hip external rotation, No ADduction Other Position/Activity Restrictions: Procedure: HIP HEMIARTHROPLASTY (Left: Hip) 02.25.[address] Downing-posterior precautions. Pt has history of parkinson's. Subjective Subjective Subjective: Patient agreeable to both AM and PM sessions. Pain Pre-Pain: (Patient tearful with transfers.) Pain Interventions: Nurse notified (Medications given for pain PRN.) Bed Mobility Bed mobility Bed Mobility Comments: Patient up in WC and returned to recliner. Chair alarms in place. Transfers Transfers Sit to Stand: Substantial/Maximal assistance;2 Person Assistance (Mod x2 in // bars) Stand to Sit: Substantial/Maximal assistance;2 Person Assistance Bed to Chair: Dependent/Total (Lynette Artsudeep) Comment: Patient requires slow/ gentle movements with transfers. Mobility Ambulation WB Status: WBAT L LE Ambulation Surface: Level tile Device: Parallel Bars Other Apparatus: Wheelchair follow Assistance: Partial/Moderate assistance;2 Person assistance Quality of Gait: Improved wt. shifting with therapist cues. Improved posture with cues. Gait Deviations: Slow Wendy Distance: 8 ft twice (Seated WC break between.) More Ambulation?: No Wheelchair Activities Propulsion: Yes Propulsion 1 Propulsion: Manual Level: Level Tile Method: RLE;LLE Level of Assistance: Minimal assistance Description/ Details: Assist for direction and safety. Completed 2 turns. Distance: 108 ft Balance Balance Posture: Fair Sitting - Static: Fair;+ Sitting - Dynamic: Fair;- Standing - Static: Fair;- Standing - Dynamic: Poor;+ PT Exercises PT Exercises PROM Exercises: PROM with orange slider to L knee. A/AROM Exercises: Seated bilat. LE ex. 2x10 reps as tolerated. Patrol Man demonstrated ex. first. Circulation/Endurance Exercises: Seated UBE 5 mins. forward only. Static Standing Balance Exercises: Sit to stand to RW. Max A. Denied amb. Motor Control/Coordination: Physical therapy activitly x 30 mins in PM. Exercise Equipment: NuStep x 15 workload 6 ; seat 12 and arms 11 Activity Tolerance Activity Tolerance Activity Tolerance: Patient tolerated treatment well Assessment Performance Deficits/Impairments: Decreased functional mobility , Decreased ROM, Decreased strength, Decreased safe awareness, Decreased cognition, Decreased endurance, Decreased vision/visual deficit, Increased pain, Decreased posture History: Hx of Parkinsons, dementia and heart failure. Discharge Recommendations: Home with assist PRN, Home with Home health PT Education Restraints Restraints Initially in Place: No Goals Patient Goals Patient Goals : To work on standing up straight, to go back to [facility] Short Term Goals Time Frame for Short Term Goals: 10 visits Short Term Goal 1: Pt to complete supine<>sit at min A with HOB flat, use of rail Short Term Goal 2: Pt to complete sit to stand transfers with min assist, stand pivot transfers using RW with min assist Short Term Goal 3: Pt to ambulate with RW for 25 feet min assist Short Term Goal 4: Pt to improve standing balance to F+/F to reduce fall risk Short Term Goal 5: Pt to improve left hip strength to 3+/5, and knee strength to 4/5 to facilitate increased independence with gait, transfers Additional Goals?: Yes Short Term Goal 6: Pt to demonstrate posterior hip precautions with mod cueing during transfers andbed mobility Short Term Goal 7: Pt to propel wheelchair for 50 feet using UEs and LEs as able with SBA Short Term Goal 8: Pt to participate in TUG test if able using RW Group Home Goals Time Frame for Group Home Goals : By d/c Test Technician Goal 1: Pt to complete bed mobility sup<>sit with SBA using rail prn Test Technician Goal 2: Pt to complete sit to stand, stand pivot and car transfers with RW SBA Test Technician Goal 3: Pt to ambulate with RW for 50 feet or > SBA with cues for safety/posture Test Technician Goal 4: Pt to picking supervisor object from floor using banquet houseperson and UE support on RW with SBA Group Home Goal 5: Pt to improve balance and safety with ambulation as evidence by ability to complete TUG test in 30 seconds or less using RW Additional Goals?: Yes intermediate goal 6: Pt to complete LE supine and seated ther ex for strengthening with min assist using handout Plan of Care Physical Therapy Plan General Plan: (900 minutes per week of combined PT, OT, ST due to poor tolerance to activity 2* high levels of pain and cognitive deficits) Current Treatment Recommendations: Strengthening, ROM, Balance training, Functional mobility training, Transfer training, Gait training, Stair training, Neuromuscular re-education, Pain management, Home exercise program, Safety education & training, Patient/Caregiver education & training, Equipment evaluation, education, & procurement, Therapeutic activities, Wheelchair mobility training Safety Devices Type of Devices: All fall risk precautions in place, Call light within reach, Chair alarm in place,Gait belt, Patient at risk for falls, Left in chair PT Minutes 03/06/25 0900 03/06/25 1430 PT Individual Minutes Time In 0900 1430 Time Out 1000 1500 Minutes 60 30 Cosigned by Li Littlejohn, PT at 03/11/2025 3:22 PM EDT * Sully Roman, OT - 03/06/2025 3:56 PM EDT [facility] Occupational Therapy Daily Treatment Note Date: 03/06/25 Patient Name: Leanna Nguyễn Room: 2619/2619-01 Account: [id number] : 1940 (84 y.o.) Gender: male Diagnosis: left femoral neck fracture following fall. L hip Hemiarthroplasty , parkinson's. Additional Pertinent Hx: Leanna Nguyễn is a 84 y.o. right-handed male admitted to the [facility] unit on 02/28/2025. He was originally admitted to [facility] on 02/25/2025 for left femoral neck fracture following fall. 84-year-old male with a history of Parkinson's, CHF, coronary artery disease, CABG, hyperlipidemia, hypertension, altered mental status, syncope and collapse, pulmonary fibrosis, CKD and dementia presenting with hip pain after fall. Patient is disoriented at baseline. Cardiology 02/26-aspirin resumed, torsemide held in setting of hypokalemia. Internal medicine-left femoral neck fracture status post left hip hemiarthroplasty 02/25 lives in assisted living Ortho-displaced femoral neck fracture status post left hip hemiarthroplasty on 02/25 Nephrology- patientnoted to have ANIYA on CKD postoperative, UA and renal ultrasound unremarkable. Improved with gentle rehydration. Palliative care brother has power of civil attorney no , no children parents are deceasedStevnanette is the only sibling and next of kin reports that his daughter Kimberly is secondary, brother feels he can make his own decision, currently full code Treatment Diagnosis: impaired self care status d/t L hip hemiarthroplasty Past Medical History: has no past medical history on file. Past Surgical History: has a past surgical history that includes hip surgery (Left, 02/25/2025). Restrictions Restrictions/Precautions Restrictions/Precautions: Bed Alarm, Weight Bearing, Fall Risk, Surgical Protocols (WBAT LLE, posterior hip precautions) Activity Level: Up as Tolerated, Up with Assist Required Braces or Orthoses?: No Implants Present? : Metal implants (L blanka arthroplasty) Position Activity Restriction Hip Precautions: Posterior hip precautions, No hip flexion > 90 degrees, No sudden or extreme motions, No hip internal rotation, No hip external rotation, No ADduction Other Position/Activity Restrictions: Procedure: HIP HEMIARTHROPLASTY (Left: Hip) 02.25.[address] Downing-posterior precautions. Pt has history of parkinson's. Lower Extremity Weight Bearing Restrictions Left Lower Extremity Weight Bearing: Weight Bearing As Tolerated Subjective Subjective Subjective: It was in [place]. pt tells story about work trips and the time he won at the [employer]. Pain: nsg notes pt had recieved pain meds at 6 am. this am, pt with an episode of extreme pain, eyes closed, stopped talking but not crying out loudly like prior 2 days. pm, concha transfer to bed without signs of significant pain. pt declined mediplex boots, but agreed to floating his heels on pillowwhich was completed. bed bladder was use to partiallly roll pt to the L for pressure relief. nsg donned teds post am OT. Objective Cognition Cognition Arousal/Alertness: Inconsistent responses to stimuli (pm session- pt remained alert throughout. am was alert at beginning and end but eyes closed and not speaking much due to pain during 35 min in middle of hour session.) Following Commands: Follows one step commands with repetition;Inconsistently follows commands Attention Span: Attends with cues to redirect Memory: Decreased recall of recent events;Decreased recall of precautions;Decreased short term memory Safety Judgement: Decreased awareness of need for assistance;Decreased awareness of need for safety Problem Solving: Assistance required to generate solutions;Assistance required to identify errors made;Assistance required to correct errors made;Assistance required to implement solutions;Decreased awareness of errors Insights: Not aware of deficits Initiation: Requires cues for some Sequencing: Requires cues for some Cognition Comment: good attention to task, sequencing and initiation with grooming, UE bathe and dress in am upon 1st getting up from bed to w/c. this pm, pt initiated request for a drink of water. pt did not like HOB being elevated to safely take a drink but agreed to be up briefly then return to HOB lower. when OT starting to check- pt stated he was dry (briefs) and he was accurate. OT startingto don boots but pt communicated his distaste for wearing mediplex boots, with ed he agreed to heels floated on pillow Activities of Daily Living Feeding Assistance Level: Independent Skilled Clinical Factors: observed pt feeding self at lunch. pt was able to open ensure bottle by himself with extra time. Grooming/Oral Hygiene Assistance Level: Independent Skilled Clinical Factors: brushed teeth, washed face seated in w/c up to sink. Upper Extremity Bathing Assistance Level: Supervision Skilled Clinical Factors: pt completed task seated WC level at the sink Lower Extremity Bathing Assistance Level: Dependent Skilled Clinical Factors: to wash bottom -TA x 2 to stand using sink for UE support and wash bottomunsuccessful, then TA x 3 with lynette stedy to stand upright to wash bottom and don pants over hips. pt washed his thighs with set up and cue, TA Wash knees distally. Upper Extremity Dressing Assistance Level: Minimal assistance Skilled Clinical Factors: t shirt. pt's 1st attempt to don shirt resulted in pt placing it on top of his head and behind his neck without being in the neck hole or arm holes with pt unsuccessfully moving t shirt. pt was then given A to orient and open t shirt and initiate his arms in thru the waist, then pt completed donning shirt. Lower Extremity Dressing Assistance Level: Dependent Skilled Clinical Factors: pt in pain and not talking and could not be engaged to participate in donpants over feet with equipment. TA pullups and pants over feet, TA x 3 to stand with lynette stedy anddon over hips. Putting On/Taking Off Footwear Assistance Level: Dependent Skilled Clinical Factors: TA don teds and slipper socks. Toileting Assistance Level: Dependent Skilled Clinical Factors: TA x 2 to stand and wipe bottom unsuccessful, then TA x 3 with lynette stedyto stand upright to wash bottom and don pants over hips. pt declined offer for urinal am and pm OT.this pm pt's briefs were dry post donned at 9 am til 2:30 pm. Toilet Transfers Skilled Clinical Factors: pt declined offer in pm. Mobility Roll Left Assistance Level: Dependent;Requires x 2 assistance Sit to Supine Assistance Level: Dependent;Requires x 2 assistance Supine to Sit Assistance Level: Dependent;Requires x 2 assistance Scooting Assistance Level: Dependent;Requires x 2 assistance Skilled Clinical Factors: to advance pt hips forward to EOB. Sit to Stand Assistance Level: Dependent;Requires x 2 assistance Stand to Sit Assistance Level: Dependent;Requires x 2 assistance Stand Pivot Assistance Level: Dependent Skilled Clinical Factors: variable: am: supine to sit, SPT with RW TA x 2 bed to w/c, then attempted stand with sink for support, but unable to come upright with TA x 2, so used TA x 3 with lynette stedy to stand and complete pants on over hips. pm max x 2 lynette stedy transfer w/c to bed. Functional Mobility Device: Wheelchair Activity: To/From bathroom Assistance Level: Dependent OT Exercises A/AROM Exercises: pt demo AROM 100 degrees shld flex BUE when attempting to reach lynette stedy bar x 1 in am and x 1 in pm. from supine, pt was able to lift RLE to move laterally in bed and seated to lift it onto lynette stedy platform. from supine- pt using UE to assist to lift LLE and move 2 inches x 3 laterally in prep for getting up. pt able to lift BLE slightly off the floor when asked in order to move w/c during adls. Functional Mobility Circuit Training: am: supine to sit, SPT with RW TA x 2 bed to w/c, then attempted stand with sink for support, but unable to come upright with TA x 2, so used TA x 3 with lynette stedy to stand and complete pants on over hips. pm max x 2 lynette stedy transfer w/c to bed. pt concha up in w/c (with thick cushion from 9 am till 2:30 pm. during the afternoon, pt was entertained with ARU staff playing bingo with him. Static Sitting Balance Exercises: concha 7 min sitting EOB initially mod A, then SBA with UE support. Dynamic Standing Balance Exercises: concha 3 min, 1 min, 2 min stand, pivot this am with TA x 2 or 3 assist. concha 1 min x 2 this pm biofuels processing technician lynette stedy with max A x 2. Assessment Assessment Activity Tolerance: Patient limited by fatigue;Patient limited by pain;Patient limited by endurance Patient Education Education Education Given To: Patient Education Provided: ADL Function;Mobility Training Education Provided Comments: pt with memory deficits but benefits from repetion of adl and mobilitytasks and is given directions as needed for tasks. Education Method: Demonstration;Verbal Barriers to Learning: Cognition Education Outcome: Demonstrated understanding Safety Devices Type of devices: All fall risk precautions in place;Patient at risk for falls;Left in bed;Bed alarmin place;Call light within reach (in bed in pm, this am- up in w/c with chair alarm on, call light in reach and nsg aware pt up with 1 hour break prior to PT) Family education To be arranged phone number of pt's niece left in pt room as per CM note she is willing to talk to pt on phone to try and increase cooperation. Goals Patient Goals Patient goals : pt Short Term Goals Time Frame for Short Term Goals: 1 week Short Term Goal 1: indep feeding and grooming Short Term Goal 2: Pt will complete UB ADLs with set up A and Good cognition Short Term Goal 3: max x 1 toileting- LE bathe bottom and pants over hips assist stand with BUE support on lynette stedy or least restrictive device. Short Term Goal 4: concha 4-5 min static stand with BUE support with mod A of 1. Short Term Goal 5: Pt will participate in 30+ minutes of therapeutic exercises/functional activities to increase safety and independence with self care and mobility Additional Goals?: Yes Short Term Goal 6: concha 10 reps shld, elbow AROM with mod resistance on R and min on L for BUE strengthening for use during mobility for adls. Short Term Goal 7: able to tolerate safely performing adl transfers with max A x 2 and RW 50 % of the time during therapy. Group Home Goals Time Frame for Group Home Goals : by discharge Test Technician Goal 1: mod x 1 LE bathe and dress (with cues, assist provided due to pt poor memory withL hip precautions. ) Group Home Goal 2: mod x 1 toileting and adl transfers Test Technician Goal 3: concha 6-7 min stand, transfer, amb with BUE support on RW and mod A. Group Home Goal 4: concha 15 reps shld, elbow AROM with mod resistance on R and min on L for BUE strengthening for use during mobility for adls. Group Home Goal 5: increase MMT B elbow to 4+/5, L shld to 4-/5 and R shld to 4/5 to demo improved BUE strengthening for use during mobility for adls. Plan Occupational Therapy Plan Times Per Week: 900 min of PT/OT/ST Times Per Day: Twice a day Current Treatment Recommendations: Strengthening, Balance training, Functional mobility training, Endurance training, Pain management, Safety education & training, Patient/Caregiver education & training, Equipment evaluation, education, & procurement, Positioning, Self-Care / ADL, Co-Treatment, Cognitive/Perceptual training, Wheelchair mobility training 03/06/25 1509 03/06/25 1522 OT Individual Minutes Time In 0800 1435 Time Out 0902 1503 Minutes 62 28 OT Individual Minutes OT Individual Minutes Time In: 1435 Time Out: 1503 Minutes: 28 * Saul Crouch MD - 03/06/2025 2:27 PM EDT NEPHROLOGY PROGRESS NOTE Patient : Leanna Nguyễn; 84 y.o. Location: [facility]9/2619[facility]01 Attending: Juan Ramon Lucero MD Admit Date: 02/28/2025 Hospital Day: 6 Reason for Consult: ANIYA on CKD Chief Complaint: Fall History Obtained From: family member , electronic medical record Subjective Patient seen and examined, no new complains Sitting in recliner Labs 03/01/2025 scr stable 1.7 mg/dl BP stable History of Present Illness: This is a 84 y.o. male Patient with past medical history of atherosclerotic coronary artery diseasestatus post CABG, history of hyperlipidemia, essential hypertension, hypothyroidism, Parkinson's disease dementia with baseline disorientation former smoker, history of pulmonary fibrosis mild bilateral cardiac carotid artery disease, CKD stage III. Patient presented to [facility] on 02/25/2025 with complaints of left hip pain after he recently sustained a fall, patient denies dizziness nausea vomiting chest pain X-ray showed displaced femoral neck fracture of left hip, patient underwent left hip hemiarthroplasty on 02/25/2025 Patient serum creatinine on admission 1 on 02/25/2025 noted with 2.8 mg/dL and therefore nephrology was consulted, during the hospital stay kidney function improved to 1.8 mg/dL on 02/27/2025, patient was discharged to acute rehab. Nephrology was consulted to follow for ANIYA on CKD. Patient seen and examined at acute rehab no acute events patient is tired and exhausted after the physical therapy laying comfortably not in acute distress Past Medical History: History reviewed. No pertinent past medical history. Past Surgical History: Procedure Laterality Date HIP SURGERY Left 02/25/2025 HIP HEMIARTHROPLASTY performed by Ana Downing MD at [facility] OR Current Medications: methocarbamol (ROBAXIN) tablet 500 mg, 4x Daily miconazole (MICOTIN) 2 % powder, BID torsemide (DEMADEX) tablet 10 mg, Daily heparin (porcine) injection 5,000 Units, 3 times per day polyethylene glycol (GLYCOLAX) packet 17 g, Daily senna (SENOKOT) tablet 17.2 mg, Daily PRN bisacodyl (DULCOLAX) suppository 10 mg, Daily PRN acetaminophen (TYLENOL) tablet 650 mg, Q6H PRN aspirin EC tablet 81 mg, BID carbidopa-levodopa (SINEMET) 25-100 MG per tablet 1 tablet, TID levothyroxine (SYNTHROID) tablet 100 mcg, Daily liothyronine (CYTOMEL) tablet 5 mcg, Daily melatonin tablet 3 mg, Nightly PRN memantine (NAMENDA) tablet 10 mg, BID ondansetron (ZOFRAN-ODT) disintegrating tablet 4 mg, Q8H PRN oxyCODONE (ROXICODONE) immediate release tablet 5 mg, Q4H PRN Or oxyCODONE HCl (OXY-IR) immediate release tablet 10 mg, Q4H PRN sertraline (ZOLOFT) tablet 25 mg, Daily Allergies: Patient has no known allergies. Social History: Social History Socioeconomic History Marital status: Unknown Spouse name: Not on file Number of children: Not on file Years of education: Not on file Highest education level: Not on file Occupational History Not on file Tobacco Use Smoking status: Never Passive exposure: Never Smokeless tobacco: Never Substance and Sexual Activity Alcohol use: Not on file Drug use: Never Sexual activity: Not on file Other Topics Concern Not on file Social History Narrative Not on file Social Drivers of Health Financial Resource Strain: Not on file Food Insecurity: No Food Insecurity (02/28/2025) Hunger Vital Sign Worried About Running Out of Food in the Last Year: Never true Ran Out of Food in the Last Year: Never true Transportation Needs: No Transportation Needs (02/28/2025) PRAPARE - Transportation Lack of Transportation (Medical): No Lack of Transportation (Non-Medical): No Physical Activity: Not on file Stress: Not on file Social Connections: Not on file Intimate Partner Violence: Unknown (08/27/2023) Received from [facility] [place] Safety & Environment Fear of Current or Ex-Partner: Not on file Emotionally Abused: Not on file Physically Abused: Not on file Sexually Abused: Not on file Physically or Sexually Abused: Not on file Housing Stability: Low Risk (02/28/2025) Housing Stability Vital Sign Unable to Pay for Housing in the Last Year: No Number of Times Moved in the Last Year: 0 Homeless in the Last Year: No Family History: No family history on file. Review of Systems: Patient not responding to verbal stimuli is sleeping Objective: CURRENT TEMPERATURE: Temp: 97.7 F (36.5 C) MAXIMUM TEMPERATURE OVER 24HRS: Temp (24hrs), Av F (36.7 C), Min:97.7 F (36.5 C), Max:98.2 F (36.8 C) CURRENT RESPIRATORY RATE: Respirations: 16 CURRENT PULSE: Pulse: 60 CURRENT BLOOD PRESSURE: BP: 135/60 24HR BLOOD PRESSURE RANGE: Systolic (24hrs), Av , Min:120 , Max:135 ; Diastolic (24hrs), Av, Min:46, Max:60 24HR INTAKE/OUTPUT: No intake or output data in the 24 hours ending 03/06/25 1427 No data found. Physical Exam: GENERAL APPEARANCE: Comfortable not in acute distress HEAD: normocephalic NOSE: No nasal discharge. CARDIAC: Normal S1 and S2. No S3, S4 or murmurs. Rhythm is regular. LUNGS: Clear to auscultation without rales, rhonchi, wheezing or diminished breath sounds. NECK: Neck supple, trachea midline GI-soft nontender nondistended abdomen MUSKULOSKELETAL: Adequately aligned spine. No joint erythema or tenderness. EXTREMITIES: No edema. Peripheral pulses intact. NEURO: Nonfocal Labs: CBC: No results for input(s): WBC , RBC , HGB , HCT , MCV , MCH , MCHC , RDW , PLT , MPV in the last 72 hours. BMP: No results for input(s): NA , K , CL , CO2 , BUN , CREATININE , GLUCOSE , CALCIUM in the last 72 hours. Phosphorus: No results for input(s): PHOS in the last 72 hours. Radiology: Reviewed as available. Assessment: Patient initially admitted with fall ,displaced femoral neck fracture of left hip, patient underwent left hip hemiarthroplasty on 02/25/2025 Acute kidney injury on CKD most likely secondary to prerenal azotemia serum creatinine peaked to 2.8 mg/dL on 02/25/2025 serum creatinine improved to 1.8 mg/dL most recent serum creatinine is 1.7 mg/dL, which is from 03/01/2020 Baseline serum creatinine is around 2.1 mg/dL noted in 2022 CKD stage IIIb with baseline creatinine of 2.1 mg/dL 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 History of essential hypertension Plan: Kidney function near baseline resume torsemide 10 mg daily Continue current treatment Avoid NSAIDs Avoid nephrotoxic agents Strict I's and O's Daily weight BMP Thursday Thank you for the consultation. * Kevin Pappas, [facility] - 03/06/2025 12:32 PM EDT SPEECH LANGUAGE PATHOLOGY Speech Language Pathology [facility] Cognitive Treatment Note Date: 03/06/2025 Patient s Name: Leanna Nguyễn Diagnosis: Patient Active Problem List Diagnosis Code Left displaced femoral neck fracture (HCC) S72.002A Fall W19.XXXA ANIYA (acute kidney injury) N17.9 Parkinson's disease (HCC) G20.A1 Coronary artery disease involving [place] coronary artery of [place] heart without angina pectoris I25.10 Hip fracture, left, sequela S72.002S S/P hip hemiarthroplasty Z96.649 Closed fracture of left hip (HCC) S72.002A Pain Rating: no c/o pain Pain Location: N/A Non-Pharmaceutical Pain Intervention: N/A Cognitive Treatment Treatment time: ULTRA SOUND TECHNICIAN Individual Minutes Time In: 1110 Time Out: 1136 Minutes: 26 Subjective: [x] Alert [x] Cooperative [] Confused [] Agitated [] Lethargic Objective/Assessment: Attention: Pt required frequent repetition to recall directions/stimuli in structured tasks. ST modified environment to reduce distraction. Orientation: x3/4 temporal, 2/2 spatial concepts recalled with min A for use of external supports. Recall: Delayed recall: 0/3 RI (strategy instruction), improved to 2/3 max A. Organization: Naming by category/initial letter: 50% RI improved to 80% max A. Problem Solving/Reasoning: Recall by attribute: 45% (I) improved to 70% max A. Other: Pt in wheelchair with alarm attached at end of session. Plan: [x] Continue ST services [] Discharge from ST: Discharge recommendations: [x] Further therapy recommended at discharge. [] No therapy recommended at discharge. Treatment completed by: Kevin Pappas M.S., [facility]-ULTRA SOUND TECHNICIAN * Clint Scales MD - 03/06/2025 12:10 PM EDT IN-PATIENT SERVICE [facility] Internal Medicine Progress note Date: 03/06/2025 Patient name: Leanna Nguyễn Date of admission: 02/28/2025 3:30 PM Account: [id number] Date of : 1940 PCP: Pipe Jeffers MD Room: [address] [place] [address] Code Status: Full Code Physician Requesting Consult: Juan Ramon Lucero MD Reason for Consult: medical management Chief Complaint: Medical management History Obtained From: Patient medical record nursing staff History of Present Illness: Patient, has past medical history multiple medical problem, which include coronary artery disease status post CABG, CHF, hypothyroidism, hypertension, hyperlipidemia, pulmonary fibrosis, chronic kidney disease, Parkinson disease, dementia, patient presented to [facility] after a fall, he had left hip pain, found to have acute subcapital left femoral neck fracture, patient underwent left hip hemiarthroplasty on 02/25 While in hospital, patient had worsening creatinine, was evaluated by table worker, treated with IVfluids, torsemide was kept on hold, patient, creatinine improved to his baseline, Patient required Shell's catheter placement which was later removed Transferred to [facility] rehab unit for further management Past Medical History: History reviewed. No pertinent past medical history. Past Surgical History: Past Surgical History: Procedure Laterality Date HIP SURGERY Left 02/25/2025 HIP HEMIARTHROPLASTY performed by Ana Downing MD at [facility] OR Medications Prior to Admission: Prior to Admission medications Medication Sig Start Date End Date Taking? Authorizing Provider amLODIPine (NORVASC) 2.5 MG tablet Take 1 tablet by mouth daily Ruth Howe MD aspirin 81 MG chewable tablet Take 1 tablet by mouth daily Ruth Howe MD carbidopa-levodopa (SINEMET) 10-100 MG per tablet Take 1 tablet by mouth 3 times daily Ruth Howe MD cephALEXin (KEFLEX) 500 MG capsule Take 1 capsule by mouth 2 times daily Ruth Howe MD folic acid (FOLVITE) 400 MCG tablet Take 1 tablet by mouth daily Ruth Howe MD levothyroxine (SYNTHROID) 100 MCG tablet Take 1 tablet by mouth Daily Ruth Howe MD liothyronine (CYTOMEL) 5 MCG tablet Take 1 tablet by mouth daily Ruth Howe MD memantine (NAMENDA) 10 MG tablet Take 1 tablet by mouth 2 times daily Ruth Howe MD Multiple Vitamins-Minerals (THERAPEUTIC MULTIVITAMIN-MINERALS) tablet Take 1 tablet by mouth daily Ruth Howe MD potassium chloride (KLOR-CON) 20 MEQ packet Take 10 mEq by mouth daily Ruth Howe MD sennosides-docusate sodium (SENOKOT-S) 8.6-50 MG tablet Take 1 tablet by mouth daily Ruth Howe MD sertraline (ZOLOFT) 25 MG tablet Take 1 tablet by mouth daily Ruth Howe MD tolterodine (DETROL) 1 MG tablet Take 1 tablet by mouth 2 times daily Ruth Howe MD torsemide (DEMADEX) 10 MG tablet Take 1 tablet by mouth daily Ruth Howe MD vitamin B-12 (CYANOCOBALAMIN) 500 MCG tablet Take 1 tablet by mouth daily Ruth oHwe MD vitamin D 50 MCG (1999 UT) CAPS capsule Take 1 capsule by mouth daily Ruth Howe MD Allergies: Patient has no known allergies. Social History: Tobacco: reports that he has never smoked. He has never been exposed to tobacco smoke. He has neverused smokeless tobacco. Alcohol: has no history on file for alcohol use. Drug Use: reports no history of drug use. Family History: No family history on file. Review of Systems: Positive and Negative as described in HPI. CONSTITUTIONAL: negative for fevers, chills, sweats, fatigue, weight loss HEENT: negative for vision, hearing changes, runny nose, throat pain RESPIRATORY: negative for shortness of breath, cough, congestion, wheezing. CARDIOVASCULAR: negative for chest pain, palpitations. GASTROINTESTINAL: negative for nausea, vomiting, diarrhea, constipation, change in bowel habits, abdominal pain GENITOURINARY: negative for difficulty of urination, burning with urination, frequency INTEGUMENT: negative for rash, skin lesions, easy bruising HEMATOLOGIC/LYMPHATIC: negative for swelling/edema ALLERGIC/IMMUNOLOGIC: negative for urticaria , itching ENDOCRINE: negative increase in drinking, increase in urination, hot or cold intolerance MUSCULOSKELETAL: Pain, left hip NEUROLOGICAL: negative for headaches, dizziness, lightheadedness, numbness, pain, tingling extremities BEHAVIOR/PSYCH: Physical Exam: BP 135/60 Pulse 60 Temp 97.7 F (36.5 C) (Oral) Resp 16 Ht 1.854 m (6' 0.99 ) Wt 97 kg (213 lb 13.5 oz) SpO2 98% BMI 28.22 kg/m Temp (24hrs), Av F (36.7 C), Min:97.7 F (36.5 C), Max:98.2 F (36.8 C) No results for input(s): POCGLU in the last 72 hours. No intake or output data in the 24 hours ending 03/06/25 1210 General Appearance: alert, well appearing, and in no acute distress, wheelchair-bound Mental status: oriented to person, place, and time with normal affect Head: normocephalic, atraumatic. Eye: no icterus, redness, pupils equal and reactive, extraocular eye movements intact, conjunctiva clear Ear: normal external ear, no discharge, hearing intact Nose: no drainage noted Mouth: mucous membranes moist Neck: supple, no carotid bruits, thyroid not palpable Lungs: Bilateral equal air entry, clear to ausculation, no wheezing, rales or rhonchi, normal effort Cardiovascular: normal rate, regular rhythm, no murmur, gallop, rub. Abdomen: Soft, nontender, nondistended, normal bowel sounds, no hepatomegaly or splenomegaly Neurologic: There are no new focal motor or sensory deficits, normal muscle tone and bulk, no abnormal sensation, normal speech, cranial nerves II through XII grossly intact Skin: No gross lesions, rashes, bruising or bleeding on exposed skin area Extremities: Postsurgical changes present left hip, mild edema in left leg Psych: Investigations: Laboratory Testing: No results found for this or any previous visit (from the past 24 hours). Consultations: IP CONSULT TO DIETITIAN IP CONSULT TO SOCIAL WORK IP CONSULT TO INTERNAL MEDICINE IP CONSULT TO NEPHROLOGY Assessment : Primary Problem Hip fracture, left, sequela Active Hospital Problems Diagnosis Date Noted S/P hip hemiarthroplasty [Z96.649] 03/01/2025 Closed fracture of left hip (HCC) [S72.002A] 03/01/2025 Hip fracture, left, sequela [S72.002S] 02/28/2025 Plan: Left hip fracture status post left hip hemiarthroplasty, on 02/25 Coronary artery disease status post CABG, on aspirin, not on statin, patient could not tell me whether he is allergic to statin or not, review of previous office visit notes, Lipitor is not mentionedin his home medication list, will discuss with close family, regarding previous documented statin allergies, patient, recently evaluated by loading unit operator, last LDL was 71 CHF, compensated Parkinson disease, follows closely with neurology as outpatient Dementia on Namenda Hypothyroidism on Synthroid and liothyronine , TSH tested recently is okay Chronic kidney disease, stable, was recently evaluated by table worker Starting patient on heparin 5000 every 8 for DVT prophylaxis Underwent CT of chest, 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 Patient having significant pain with compression stockings. Will try off compression stockings and SCDs overnight. Clint Scales MD 03/06/2025 12:10 PM Copy sent to Pipe Doe MD Please note that this chart was generated using voice recognition [employer] dictation software. Although every effort was made to ensure the accuracy of this automated physical education professor, some errors in physical education professor may have occurred. * Juan Ramon Lucero MD - 03/06/2025 9:13 AM EDT Physical Medicine & Rehabilitation Progress Note Subjective: The patient is a 84 y.o. year old with ADL and Mobility deficits secondary to left hip fracture No acute events overnight. Patient seen examined working in therapy gym. Reports he is doing well. Endorses some left hip pain improved with pain medications. He feels he is tolerating therapy and making some progress. No new concerns at this time. ROS: Denies fevers, chills, sweats. No chest pain, palpitations, lightheadedness. Denies coughing, wheezing or shortness of breath. Denies abdominal pain, nausea, diarrhea or constipation. No new areas of joint pain. Denies new areas of numbness or weakness. Denies new anxiety or depression issues. No new skin problems. Rehabilitation: PT: Bed mobility Rolling to Left: Substantial/Maximal assistance, 2 Person assistance Rolling to Right: Minimal assistance Supine to Sit: Substantial/Maximal assistance, 2 Person assistance Sit to Supine: Substantial/Maximal assistance, 2 Person assistance Scooting: Substantial/Maximal assistance, 2 Person assistance Bed Mobility Comments: Patient up in WC and returned to recliner. Chair alarms in place. Transfers Sit to Stand: Substantial/Maximal assistance, 2 Person Assistance Stand to Sit: Substantial/Maximal assistance, 2 Person Assistance Bed to Chair: Dependent/Total (Lynette Mauricio) Comment: Patient requires slow/ gentle movements with transfers. Ambulation WB Status: WBAT L LE Ambulation Surface: Level tile Device: Parallel Bars Other Apparatus: Wheelchair follow Quality of Gait: Stooped posture, knee flexion in stance phase, difficulty with weight acceptance to LLE, short step length bilateral Gait Deviations: Decreased step length, Decreased step height, Shuffles, Slow Wendy Distance: 5 feet x 2 Comments: Pt required cues for upright posture, flexed knee correction, and advancing hands first More Ambulation?: No (Patient declined amb. this date.) OT: Feeding: Setup Grooming: Supervision Grooming Skilled Clinical Factors: brush teeth, wash face seated in w/c up to sink. UE Bathing: Supervision UE Bathing Skilled Clinical Factors: seated in w/c up to sink. LE Bathing: Dependent/Total LE Bathing Skilled Clinical Factors: TA x 2 to stand with RW and wash ronit, bottom. seated- pt ableto wash thighs with set up, TA distally. ed pt how far he is allowed to bend to wash LE. pt had difficulty understanding and following this so OT had him hand her the washcloth to provide assist to wash distal LE to keep L hip precautions. UE Dressing: Minimal assistance UE Dressing Skilled Clinical Factors: t shirt. assist needed to pull down shirt in back- did not respond to cues. LE Dressing: Dependent/Total LE Dressing Skilled Clinical Factors: TA don pants over feet, TA x 2 to don pullups, pants over hips stand with lynette mauricio. Putting On/Taking Off Footwear: Dependent/Total Putting On/Taking Off Footwear Skilled Clinical Factors: TA don teds and slipper socks. Toileting: Dependent/Total Toileting Skilled Clinical Factors: TA x 2 stand with RW. Toilet Transfers Equipment Used: Grab bars Toilet Transfer: 2 Person assistance, Dependent/Total Toilet Transfers Comments: max x 2 stand pivot transfer with RW w/c to toilet with grab bars, TA x 2 stand for toileting with RW, then TA x 2 stand with lynette mauricio for transfer off toilet to w/c, then BSC obtained for over the toilet, due to pt max fatigued with mobility and higher surface will be helpful. plan communicated to [facility] lynette Dorsey x 2. SPEECH: Cognitive Treatment Treatment time: ULTRA SOUND TECHNICIAN Individual Minutes Time In: 1105 Time Out: 1130 Minutes: 25 *pt with Pt in gym upon arrival to room Subjective: [x] Alert [x] Cooperative [] Confused [] Agitated [] Lethargic Objective/Assessment: Attention: Pt. Required frequent repetition of stimuli/repeated directions. Recall: Not directly targeted. Problem Solving/Reasoning: sequential thought, pt attempted to sequence 4 steps (4 picture cards) 0% accuracy independently. When provided with first step of sequence, pt improved to 25% accuracy. Max cues to sustain attention to task provided throughout. Other: Pt. In recliner with chair alarm in use. Call light left within reach. Pt recalled call light button when prompted at end of session. Plan: [x] Continue ST services [] Discharge from ST: Discharge recommendations: [x] Further therapy recommended at discharge. [] No therapy recommended at discharge. Objective: BP 135/60 Pulse 60 Temp 97.7 F (36.5 C) (Oral) Resp 16 Ht 1.854 m (6' 0.99 ) Wt 97 kg (213 lb 13.5 oz) SpO2 98% BMI 28.22 kg/m GEN: well developed, well nourished, NAD HEENT: NCAT, PERRL, EOMI, mucous membranes pink and moist CV: RRR, no murmurs, rubs or gallops PULM: Respirations WNL and unlabored ABD: soft, non-tender, non-distended. No peritoneal signs. NEURO: Awake, oriented to person, place (hospital). Fluent speech. Appropriately interactive. Baseline dementia. MSK: Functional ROM impaired. Strength 5/5 throughout both arms. Strength 5/5 distal lower extremity; able to straight leg raise on right, deferred on left. EXTREMITIES: No calf tenderness to palpation bilaterally. No edema BLEs SKIN: warm dry and intact with good turgor PSYCH: appropriately interactive. Affect WNL. Diagnostics: CBC: No results for input(s): WBC , RBC , HGB , HCT , MCV , RDW , PLT in the last 72 hours. BMP: No results for input(s): NA , K , CL , CO2 , PHOS , BUN , CREATININE , GLUCOSE in the last72 hours. Invalid input(s): CA BNP: No results for input(s): BNP in the last 72 hours. PT/INR: No results for input(s): PROTIME , INR in the last 72 hours. APTT: No results for input(s): APTT in the last 72 hours. CARDIAC ENZYMES: No results for input(s): CKMB , CKMBINDEX , TROPONINT in the last 72 hours. Invalid input(s): CKTOTAL;3 troponins FASTING LIPID PANEL: Lab Results Component Value Date CHOL 135 02/25/2025 HDL 53 02/25/2025 TRIG 57 02/25/2025 LIVER PROFILE: No results for input(s): AST , ALT , BILIDIR , BILITOT , ALKPHOS in the last 72 hours. Invalid input(s): ALB Current Medications: Current Facility-Administered Medications: methocarbamol (ROBAXIN) tablet 500 mg, 500 mg, Oral, 4x Daily miconazole (MICOTIN) 2 % powder, , Topical, BID torsemide (DEMADEX) tablet 10 mg, 10 mg, Oral, Daily heparin (porcine) injection 5,000 Units, 5,000 Units, SubCUTAneous, 3 times per day polyethylene glycol (GLYCOLAX) packet 17 g, 17 g, Oral, Daily senna (SENOKOT) tablet 17.2 mg, 2 tablet, Oral, Daily PRN bisacodyl (DULCOLAX) suppository 10 mg, 10 mg, Rectal, Daily PRN acetaminophen (TYLENOL) tablet 650 mg, 650 mg, Oral, Q6H PRN OR [DISCONTINUED] acetaminophen (TYLENOL) suppository 650 mg, 650 mg, Rectal, Q6H PRN aspirin EC tablet 81 mg, 81 mg, Oral, BID carbidopa-levodopa (SINEMET) 25-100 MG per tablet 1 tablet, 1 tablet, Oral, TID levothyroxine (SYNTHROID) tablet 100 mcg, 100 mcg, Oral, Daily liothyronine (CYTOMEL) tablet 5 mcg, 5 mcg, Oral, Daily melatonin tablet 3 mg, 3 mg, Oral, Nightly PRN memantine (NAMENDA) tablet 10 mg, 10 mg, Oral, BID ondansetron (ZOFRAN-ODT) disintegrating tablet 4 mg, 4 mg, Oral, Q8H PRN OR [DISCONTINUED] ondansetron (ZOFRAN) injection 4 mg, 4 mg, IntraVENous, Q6H PRN oxyCODONE (ROXICODONE) immediate release tablet 5 mg, 5 mg, Oral, Q4H PRN OR oxyCODONE HCl (OXY-IR) immediate release tablet 10 mg, 10 mg, Oral, Q4H PRN sertraline (ZOLOFT) tablet 25 mg, 25 mg, Oral, Daily Impression/Plan: Impaired ADLs, gait, and mobility due to: Left femoral neck fracture secondary to fall s/p left hip hemiarthroplasty: surgery 02/[address] Downing. PT/OT for gait, mobility, strengthening, endurance, ADLs, and self care - 900 minute plan. Pain control with PRN Tylenol, PRN Oxycodone. Muscle spasms: Start Robaxin 500 mg 4 times daily 03/05. Parkinson's Disease: on sinemet Dementia: on Namenda. Venous stasis dermatitis: Complains of pain with compression stockings, no signs or symptoms of infection/cellulitis. Continue to monitor. Essential hypertension: Per history, not currently on antihypertensive medications. Blood pressure well-controlled. Continue to monitor. Hyperlipidemia: lipid panel reviewed by Cardiology in acute care, monitoring off of cholesterol medications for now. Coronary artery disease: CABG in 2010. On Aspirin CHF: Torsemide held in setting of hypokalemia, not continued at discharge from acute care. Compensated. Pulmonary fibrosis ANIYA on CKD stage IIIb: baseline Cr ~2.1, improved to 1.7. Nephrology consulted. Continue to monitorwith periodic labs. Hypothyroidism: on synthroid, on liothyronine. TSH 1.91 02/25. Depression: on Zoloft Possible pancreatic cysts: Identified on chest CT, consider outpatient evaluation for MRCP on nonemergent basis. Bowel Management: Miralax daily, senokot prn, dulcolax prn. DVT Prophylaxis: SCD's while in bed, RIDDHI's during the day, and ASA 81 mg BID per Ortho protocol Internal Medicine for medical management Follow up: PCP 1-2 weeks, Orthopedic Surgery This note is created with the assistance of a speech recognition program. While intending to generate a document that actually reflects the content of the visit, the document can still have some errors including those of syntax and sound a like substitutions which may escape proof reading. In such instances, actual meaning can be extrapolated by contextual diversion. * Sully Roman OT - 03/05/2025 5:05 PM EDT [facility] Acute Rehabilitation Occupational Therapy Daily Treatment Note Date: 03/05/25 Patient Name: Leanna Nguyễn Room: 2619/2619-01 Account: [id number] : 1940 (84 y.o.) Gender: male Diagnosis: left femoral neck fracture following fall. L hip Hemiarthroplasty , parkinson's. Additional Pertinent Hx: Leanna Nguyễn is a 84 y.o. right-handed male admitted to the [facility] unit on 02/28/2025. He was originally admitted to [facility] on 02/25/2025 for left femoral neck fracture following fall. 84-year-old male with a history of Parkinson's, CHF, coronary artery disease, CABG, hyperlipidemia, hypertension, altered mental status, syncope and collapse, pulmonary fibrosis, CKD and dementia presenting with hip pain after fall. Patient is disoriented at baseline. Cardiology 02/26-aspirin resumed, torsemide held in setting of hypokalemia. Internal medicine-left femoral neck fracture status post left hip hemiarthroplasty 02/25 lives in assisted living Ortho-displaced femoral neck fracture status post left hip hemiarthroplasty on 02/25 Nephrology- patientnoted to have ANIYA on CKD postoperative, UA and renal ultrasound unremarkable. Improved with gentle rehydration. Palliative care brother has power of civil attorney no , no children parents are deceasedSteve is the only sibling and next of kin reports that his daughter Kimberly is secondary, brother feels he can make his own decision, currently full code Treatment Diagnosis: impaired self care status d/t L hip hemiarthroplasty Past Medical History: has no past medical history on file. Past Surgical History: has a past surgical history that includes hip surgery (Left, 02/25/2025). Restrictions Restrictions/Precautions Restrictions/Precautions: Bed Alarm, Weight Bearing, Fall Risk, Surgical Protocols (WBAT LLE, posterior hip precautions) Activity Level: Up as Tolerated, Up with Assist Required Braces or Orthoses?: No Implants Present? : Metal implants (L blanka arthroplasty) Position Activity Restriction Hip Precautions: Posterior hip precautions, No hip flexion > 90 degrees, No sudden or extreme motions, No hip internal rotation, No hip external rotation, No ADduction Other Position/Activity Restrictions: Procedure: HIP HEMIARTHROPLASTY (Left: Hip) 02.25.[address] Downing-posterior precautions. Pt has history of parkinson's. Lower Extremity Weight Bearing Restrictions Left Lower Extremity Weight Bearing: Weight Bearing As Tolerated Subjective Subjective Subjective: I go to this side. re exiting bed on his L. almost 2:30. pt accurately states when asked to read clock. (2:25 pm) Pain: nsg states pt had just received pain meds prior to OT this am. pt concha supine to sit and SPT to w/c well, partially concha SPT to BSC, then pt with severe pain L hip while seated on BSC. pt crying,shaking, eyes closed, not following commands or redirectible. pt was assisted to return to bed and ice pack for L hip was obtained and applied. hip precautions were followed throughout mobility: pillow was placed between knees to prevent adduction LLE during sit to supine and when rolling to R. heels were placed in mediplex boots when pt assisted into bed am and pm. this pm: bed bladder was set up to roll slightly to pt's R for pressure relief. Objective Cognition Cognition Arousal/Alertness: Inconsistent responses to stimuli (when in severe pain, pt closes eyes and does not follow directions well. at end of pm session, pt falling asleep while in w/c and was assisted toreturn to bed.) Following Commands: Follows one step commands with repetition (until severe pain or falling asleep-then does not follow commands) Memory: Decreased recall of recent events;Decreased recall of precautions;Decreased short term memory Safety Judgement: Decreased awareness of need for assistance;Decreased awareness of need for safety Problem Solving: Assistance required to generate solutions;Assistance required to identify errors made;Assistance required to correct errors made;Assistance required to implement solutions;Decreased awareness of errors Insights: Not aware of deficits Initiation: Requires cues for some Sequencing: Requires cues for some Cognition Comment: I go to this side. re exiting bed on his L. almost 2:30. pt accurately states when asked to read clock. (2:25 pm) pt demo good attention to task during extended time playing [employer] with [employer]. OT observed at end of session, pt accurate with placing chips and tracking 2 cards. when reading back his card positions from [employer] , initially correct then states wrong letter, the n states # only, leaving off letter. this am, pt initially cooperative and pleasant. upon entering bathroom and attempting transfer to BSC pt became surley and argumentative with OT and ARU tech. then pt in severe pain and not speaking. this pm, pt cordial initially then was falling asleep while still up in w/c pt notes he had BM in briefs. (when checked they were clean) but pt was assisted to sit on BSC over toilet and was able to release much gas. Activities of Daily Living Feeding Assistance Level: Set-up Skilled Clinical Factors: per RN. Grooming/Oral Hygiene Assistance Level: Supervision Skilled Clinical Factors: brushing teeth seated in w/c up to sink. Lower Extremity Bathing Assistance Level: Dependent Skilled Clinical Factors: to wash bottom - needed to be completed while sidelying in bed as pt unable to tolerate standing after toileting due to pain. Lower Extremity Dressing Assistance Level: Dependent Skilled Clinical Factors: TA don briefs while supine due to pt unable to tolerate during standing after severe pain while seated on BSC. Toileting Assistance Level: Dependent;Requires x 2 assistance Skilled Clinical Factors: max x 2 to doff pants to sit onto BSC, then attemptedTA x 2 with lynette stedy to don pants but pt unable to tolerate, completed from bed. Toilet Transfers Equipment: Beside commode Assistance Level: Dependent;Requires x 2 assistance Skilled Clinical Factors: SPT from w/c onto toilet completed 1st part of transfer well, then began crying in pain and not following directions and had to be physcially assisted to complete the turn and sit on BSC over toilet. TA x 2 with lynette stedy off toilet due to pain. Mobility Roll Left Assistance Level: Dependent;Requires x 2 assistance Skilled Clinical Factors: initially max A of 1 then: TA x 2 when pt in severe pain. Roll Right Assistance Level: Dependent;Requires x 2 assistance Skilled Clinical Factors: pillow was placed between knees to prevent adduction LLE. TA x 2 when pt in severe pain. Bed To/From Chair Assistance Level: Dependent Skilled Clinical Factors: see comment below Stand Pivot Assistance Level: Dependent Skilled Clinical Factors: variable: SPT with RW mod A x 2 bed to w/c, then max x 2 from w/c to BSC over toilet with RW, then TA x 2 lynette stedy transfer BSC to bed. Functional Mobility Device: Wheelchair Activity: To/From bathroom;To/From therapy gym Assistance Level: Dependent OT Exercises Functional Mobility Circuit Training: am: supine to sit, SPT with RW mod A x 2 bed to w/c, then joie 2 from w/c to BSC over toilet with RW, then TA x 2 lynette stedy transfer BSC to bed. pm TA x 3 sarastedy transfer w/c to bed as pt had fallen asleep sitting in w/c. Static Sitting Balance Exercises: concha 6 min sitting EOB initially mod A, then SBA with UE support. good sitting balance on toilet until pain, then with head down. pt concha up in w/c for at least 2 hours this pm. (pt was entertained with [employer] playing binThe Highway Girl with him. ) Disease-specific Exercises: attempted UE bathe and dress in pm after pt up to sink and completed grooming, but pt began falling asleep while in w/c and was assisted to return to bed. Assessment Assessment Activity Tolerance: Patient tolerated treatment well;Patient limited by fatigue;Patient limited by pain;Patient limited by endurance;Treatment limited secondary to decreased cognition Safety Devices Type of devices: All fall risk precautions in place;Patient at risk for falls;Left in bed;Bed alarmin place;Call light within reach Family education Per chart- it appears there is limited family support after checking case management notes for further info re pt, found this: Per Garry, staff can call her anytime to speak with patient to help encourage the pain meds. Will communicate this to other therapists. Goals Patient Goals Patient goals : pt Short Term Goals Time Frame for Short Term Goals: 1 week Short Term Goal 1: indep feeding and grooming Short Term Goal 2: Pt will complete UB ADLs with set up A and Good cognition Short Term Goal 3: max x 1 toileting- LE bathe bottom and pants over hips assist stand with BUE support on lynette stedy or least restrictive device. Short Term Goal 4: concha 4-5 min static stand with BUE support with mod A of 1. Short Term Goal 5: Pt will participate in 30+ minutes of therapeutic exercises/functional activities to increase safety and independence with self care and mobility Additional Goals?: Yes Short Term Goal 6: concha 10 reps shld, elbow AROM with mod resistance on R and min on L for BUE strengthening for use during mobility for adls. Short Term Goal 7: able to tolerate safely performing adl transfers with max A x 2 and RW 50 % of the time during therapy. Group Home Goals Time Frame for Group Home Goals : by discharge Group Home Goal 1: mod x 1 LE bathe and dress (with cues, assist provided due to pt poor memory withL hip precautions. ) Test Technician Goal 2: mod x 1 toileting and adl transfers Group Home Goal 3: concha 6-7 min stand, transfer, amb with BUE support on RW and mod A. Test Technician Goal 4: concha 15 reps shld, elbow AROM with mod resistance on R and min on L for BUE strengthening for use during mobility for adls. Group Home Goal 5: increase MMT B elbow to 4+/5, L shld to 4-/5 and R shld to 4/5 to demo improved BUE strengthening for use during mobility for adls. Plan Occupational Therapy Plan Times Per Week: 900 min of PT/OT/ST Times Per Day: Twice a day Current Treatment Recommendations: Strengthening, Balance training, Functional mobility training, Endurance training, Pain management, Safety education & training, Patient/Caregiver education & training, Equipment evaluation, education, & procurement, Positioning, Self-Care / ADL, Co-Treatment, Cognitive/Perceptual training, Wheelchair mobility training 03/05/25 1629 03/05/25 1631 OT Individual Minutes Time In 0800 1419 Time Out 0901 1454 Minutes 61 35 OT Individual Minutes OT Individual Minutes Time In: 1419 Time Out: 1454 Minutes: 35 * Brianne Rich, SOFTWARE DEVELOPMENT ENGINEER - 03/05/2025 4:08 PM EDT Physical Therapy [facility] Acute Rehabilitation Physical Therapy Treatment Date: 03/05/25 Patient Name: Leanna Nguyễn Room: 2619/2619-01 Account: [id number] : 1940 (84 y.o.) Gender: male Additional Pertinent Hx: HISTORY OF PRESENT ILLNESS: This is an 84-year-old gentleman with history of atherosclerotic CAD s/p CABG, dyslipidemia, essential hypertension, hypothyroidism, Parkinson's disease, dementia with baseline disorientation, former smoker, pulmonary fibrosis, mild bilateral carotid artery disease, chronic kidney disease, chronic lower extremity edema, migraine headache and generalized osteoarthritis presented to the emergency room with complaints of left hip pain after he sustained a mechanical fall. Patient was sitting on the toilet, reached over and fell on the floor. He denies any loss of consciousness, dizziness or lightheadedness. Imaging shows displaced left femoral neck fracture, Dr Downing perform L Hip Hemiarthroplasty on 02/25/25. Pt allowed WBAT L LE for mobility. Response To Previous Treatment: Patient with no complaints from previous session. Family/Caregiver Present: No Referring Practitioner: Dr. Betancourt Referral Date : 02/28/25 Diagnosis: Left femoral neck fracture, S/P Left Hip hemiarthroplasty Follows Commands: Within Functional Limits Treatment Diagnosis: Difficulty walking Past Medical History: has no past medical history on file. Past Surgical History: has a past surgical history that includes hip surgery (Left, 02/25/2025). Restrictions Restrictions/Precautions Restrictions/Precautions: Bed Alarm, Weight Bearing, Fall Risk, Surgical Protocols (WBAT LLE, posterior hip precautions) Activity Level: Up as Tolerated, Up with Assist Required Braces or Orthoses?: No Implants Present? : Metal implants (L blanka arthroplasty) Lower Extremity Weight Bearing Restrictions Left Lower Extremity Weight Bearing: Weight Bearing As Tolerated Position Activity Restriction Hip Precautions: Posterior hip precautions, No hip flexion > 90 degrees, No sudden or extreme motions, No hip internal rotation, No hip external rotation, No ADduction Other Position/Activity Restrictions: Procedure: HIP HEMIARTHROPLASTY (Left: Hip) 02.25.[address] Downing-posterior precautions. Pt has history of parkinson's. Subjective Subjective Subjective: Patient agreeable to both AM and PM sessions. Pain Pre-Pain: (Patient tearful with transfers.) Bed Mobility Bed mobility Bed Mobility Comments: Patient up in WC and returned to recliner. Chair alarms in place. Transfers Transfers Sit to Stand: Substantial/Maximal assistance;2 Person Assistance Stand to Sit: Substantial/Maximal assistance;2 Person Assistance Bed to Chair: Dependent/Total (Lynette Mauricio) Comment: Patient requires slow/ gentle movements with transfers. Mobility Ambulation More Ambulation?: No (Patient declined amb. this .) PT Exercises PT Exercises PROM Exercises: PROM with orange slider to L knee. Static Standing Balance Exercises: Sit to stand to RW. Max A. Denied amb. Motor Control/Coordination: Physical therapy activitly x 30 mins in PM. Exercise Equipment: NuStep x 15 workload 6 ; seat 12 and arms 11 Activity Tolerance Activity Tolerance Activity Tolerance: Patient tolerated treatment well Assessment Performance Deficits/Impairments: Decreased functional mobility , Decreased ROM, Decreased strength, Decreased safe awareness, Decreased cognition, Decreased endurance, Decreased vision/visual deficit, Increased pain, Decreased posture History: Hx of Parkinsons, dementia and heart failure. Discharge Recommendations: Home with assist PRN, Home with Home health PT Education Restraints Restraints Initially in Place: No Goals Patient Goals Patient Goals : To work on standing up straight, to go back to [facility] Short Term Goals Time Frame for Short Term Goals: 10 visits Short Term Goal 1: Pt to complete supine<>sit at min A with HOB flat, use of rail Short Term Goal 2: Pt to complete sit to stand transfers with min assist, stand pivot transfers using RW with min assist Short Term Goal 3: Pt to ambulate with RW for 25 feet min assist Short Term Goal 4: Pt to improve standing balance to F+/F to reduce fall risk Short Term Goal 5: Pt to improve left hip strength to 3+/5, and knee strength to 4/5 to facilitate increased independence with gait, transfers Additional Goals?: Yes Short Term Goal 6: Pt to demonstrate posterior hip precautions with mod cueing during transfers andbed mobility Short Term Goal 7: Pt to propel wheelchair for 50 feet using UEs and LEs as able with SBA Short Term Goal 8: Pt to participate in TUG test if able using RW Group Home Goals Time Frame for Group Home Goals : By d/c Test Technician Goal 1: Pt to complete bed mobility sup<>sit with SBA using rail prn Test Technician Goal 2: Pt to complete sit to stand, stand pivot and car transfers with RW SBA Test Technician Goal 3: Pt to ambulate with RW for 50 feet or > SBA with cues for safety/posture Test Technician Goal 4: Pt to picking supervisor object from floor using banquet houseperson and UE support on RW with SBA Group Home Goal 5: Pt to improve balance and safety with ambulation as evidence by ability to complete TUG test in 30 seconds or less using RW Additional Goals?: Yes tong setter goal 6: Pt to complete LE supine and seated ther ex for strengthening with min assist using handout Plan of Care Physical Therapy Plan General Plan: (208 minutes per week of combined PT, OT, ST due to poor tolerance to activity 2* high levels of pain and cognitive deficits) Current Treatment Recommendations: Strengthening, ROM, Balance training, Functional mobility training, Transfer training, Gait training, Stair training, Neuromuscular re-education, Pain management, Home exercise program, Safety education & training, Patient/Caregiver education & training, Equipment evaluation, education, & procurement, Therapeutic activities, Wheelchair mobility training Safety Devices Type of Devices: All fall risk precautions in place, Call light within reach, Chair alarm in place,Gait belt, Patient at risk for falls, Left in chair PT Minutes 03/05/25 1007 03/05/25 1250 PT Individual Minutes Time In 1007 1250 Time Out 1105 1320 Minutes 58 30 Cosigned by Li Littlejohn, PT at 03/11/2025 3:21 PM EDT * Ruben Alba MD - 03/05/2025 3:35 PM EDT IN-PATIENT SERVICE [facility] Internal Medicine Progress note Date: 03/05/2025 Patient name: Leanna Nguyễn Date of admission: 02/28/2025 3:30 PM Account: [id number] Date of : 1940 PCP: Pipe Jeffers MD Room: 2619/2619-01 Code Status: Full Code Physician Requesting Consult: Juan Ramon Lucero MD Reason for Consult: medical management Chief Complaint: Medical management History Obtained From: Patient medical record nursing staff History of Present Illness: Patient, has past medical history multiple medical problem, which include coronary artery disease status post CABG, CHF, hypothyroidism, hypertension, hyperlipidemia, pulmonary fibrosis, chronic kidney disease, Parkinson disease, dementia, patient presented to [facility] after a fall, he had left hip pain, found to have acute subcapital left femoral neck fracture, patient underwent left hip hemiarthroplasty on 02/25 While in hospital, patient had worsening creatinine, was evaluated by table worker, treated with IVfluids, torsemide was kept on hold, patient, creatinine improved to his baseline, Patient required Shell's catheter placement which was later removed Transferred to [facility] rehab unit for further management Past Medical History: History reviewed. No pertinent past medical history. Past Surgical History: Past Surgical History: Procedure Laterality Date HIP SURGERY Left 02/25/2025 HIP HEMIARTHROPLASTY performed by Ana Downing MD at [facility] OR Medications Prior to Admission: Prior to Admission medications Medication Sig Start Date End Date Taking? Authorizing Provider amLODIPine (NORVASC) 2.5 MG tablet Take 1 tablet by mouth daily Ruth Howe MD aspirin 81 MG chewable tablet Take 1 tablet by mouth daily Ruth Howe MD carbidopa-levodopa (SINEMET) 10-100 MG per tablet Take 1 tablet by mouth 3 times daily Ruth Howe MD cephALEXin (KEFLEX) 500 MG capsule Take 1 capsule by mouth 2 times daily Ruth Howe MD folic acid (FOLVITE) 400 MCG tablet Take 1 tablet by mouth daily Ruth Howe MD levothyroxine (SYNTHROID) 100 MCG tablet Take 1 tablet by mouth Daily Ruth Howe MD liothyronine (CYTOMEL) 5 MCG tablet Take 1 tablet by mouth daily Ruth Howe MD memantine (NAMENDA) 10 MG tablet Take 1 tablet by mouth 2 times daily Ruth Howe MD Multiple Vitamins-Minerals (THERAPEUTIC MULTIVITAMIN-MINERALS) tablet Take 1 tablet by mouth daily Ruth Howe MD potassium chloride (KLOR-CON) 20 MEQ packet Take 10 mEq by mouth daily Ruth Howe MD sennosides-docusate sodium (SENOKOT-S) 8.6-50 MG tablet Take 1 tablet by mouth daily Ruth Howe MD sertraline (ZOLOFT) 25 MG tablet Take 1 tablet by mouth daily Ruth Howe MD tolterodine (DETROL) 1 MG tablet Take 1 tablet by mouth 2 times daily Ruth Howe MD torsemide (DEMADEX) 10 MG tablet Take 1 tablet by mouth daily Ruth Howe MD vitamin B-12 (CYANOCOBALAMIN) 500 MCG tablet Take 1 tablet by mouth daily Ruth Howe MD vitamin D 50 MCG (1999) CAPS capsule Take 1 capsule by mouth daily Ruth Howe MD Allergies: Patient has no known allergies. Social History: Tobacco: reports that he has never smoked. He has never been exposed to tobacco smoke. He has neverused smokeless tobacco. Alcohol: has no history on file for alcohol use. Drug Use: reports no history of drug use. Family History: No family history on file. Review of Systems: Positive and Negative as described in HPI. CONSTITUTIONAL: negative for fevers, chills, sweats, fatigue, weight loss HEENT: negative for vision, hearing changes, runny nose, throat pain RESPIRATORY: negative for shortness of breath, cough, congestion, wheezing. CARDIOVASCULAR: negative for chest pain, palpitations. GASTROINTESTINAL: negative for nausea, vomiting, diarrhea, constipation, change in bowel habits, abdominal pain GENITOURINARY: negative for difficulty of urination, burning with urination, frequency INTEGUMENT: negative for rash, skin lesions, easy bruising HEMATOLOGIC/LYMPHATIC: negative for swelling/edema ALLERGIC/IMMUNOLOGIC: negative for urticaria , itching ENDOCRINE: negative increase in drinking, increase in urination, hot or cold intolerance MUSCULOSKELETAL: Pain, left hip NEUROLOGICAL: negative for headaches, dizziness, lightheadedness, numbness, pain, tingling extremities BEHAVIOR/PSYCH: Physical Exam: BP 128/61 Pulse 64 Temp 98.7 F (37.1 C) (Oral) Resp 18 Ht 1.854 m (6' 0.99 ) Wt 97 kg (213 lb 13.5 oz) SpO2 98% BMI 28.22 kg/m Temp (24hrs), Av.2 F (36.8 C), Min:97.7 F (36.5 C), Max:98.7 F (37.1 C) No results for input(s): POCGLU in the last 72 hours. Intake/Output Summary (Last 24 hours) at 03/05/2025 1535 Last data filed at 03/04/2025 2148 Gross per 24 hour Intake -- Output 840 ml Net -840 ml General Appearance: alert, well appearing, and in no acute distress, wheelchair-bound Mental status: oriented to person, place, and time with normal affect Head: normocephalic, atraumatic. Eye: no icterus, redness, pupils equal and reactive, extraocular eye movements intact, conjunctiva clear Ear: normal external ear, no discharge, hearing intact Nose: no drainage noted Mouth: mucous membranes moist Neck: supple, no carotid bruits, thyroid not palpable Lungs: Bilateral equal air entry, clear to ausculation, no wheezing, rales or rhonchi, normal effort Cardiovascular: normal rate, regular rhythm, no murmur, gallop, rub. Abdomen: Soft, nontender, nondistended, normal bowel sounds, no hepatomegaly or splenomegaly Neurologic: There are no new focal motor or sensory deficits, normal muscle tone and bulk, no abnormal sensation, normal speech, cranial nerves II through XII grossly intact Skin: No gross lesions, rashes, bruising or bleeding on exposed skin area Extremities: Postsurgical changes present left hip, mild edema in left leg Psych: Investigations: Laboratory Testing: No results found for this or any previous visit (from the past 24 hours). Consultations: IP CONSULT TO DIETITIAN IP CONSULT TO SOCIAL WORK IP CONSULT TO INTERNAL MEDICINE IP CONSULT TO NEPHROLOGY Assessment : Primary Problem Hip fracture, left, sequela Active Hospital Problems Diagnosis Date Noted S/P hip hemiarthroplasty [Z96.649] 03/01/2025 Closed fracture of left hip (HCC) [S72.002A] 03/01/2025 Hip fracture, left, sequela [S72.002S] 02/28/2025 Plan: Left hip fracture status post left hip hemiarthroplasty, on 02/25 Coronary artery disease status post CABG, on aspirin, not on statin, patient could not tell me whether he is allergic to statin or not, review of previous office visit notes, Lipitor is not mentionedin his home medication list, will discuss with close family, regarding previous documented statin allergies, patient, recently evaluated by loading unit operator, last LDL was 71 CHF, compensated Parkinson disease, follows closely with neurology as outpatient Dementia on Namenda Hypothyroidism on Synthroid and liothyronine , TSH tested recently is okay Chronic kidney disease, stable, was recently evaluated by table worker Starting patient on heparin 5000 every 8 for DVT prophylaxis Underwent CT of chest, concerning for pancreatic cyst, need outpatient evaluation by MRCP on nonemergent basis 03/05 Patient seen and examined at bedside No acute complaints, no acute events Patient has been trying to work with therapy but is in significant pain RN noted that the venous stasis dermatitis on his right lower extremity looks to be worsening however pulses are still present. Patient having significant pain with compression stockings. Will try off compression stockings and SCDs overnight. Ruben Alba MD 03/05/2025 3:35 PM Copy sent to Pipe Doe MD Please note that this chart was generated using voice recognition [employer] dictation software. Although every effort was made to ensure the accuracy of this automated physical education professor, some errors in physical education professor may have occurred. * Saul Crouch MD - 03/05/2025 1:50 PM EDT Attempted to the see the Patient, but he is in rehab. * Alvaro Burrell SLP - 03/05/2025 11:22 AM EDT Speech Language Pathology [facility] Cognitive Treatment Note Date: 03/05/2025 Patient s Name: Leanna Nguyễn Diagnosis: Patient Active Problem List Diagnosis Code Left displaced femoral neck fracture (HCC) S72.002A Fall W19.XXXA ANIYA (acute kidney injury) N17.9 Parkinson's disease ([facility]) G20.A1 Coronary artery disease involving [place] coronary artery of [place] heart without angina pectoris I25.10 Hip fracture, left, sequela S72.002S S/P hip hemiarthroplasty Z96.649 Closed fracture of left hip ([facility]) S72.002A Pain Ratin/10, Pt. Groaning out in pain throughouit session, indicating that his back pain Cognitive Treatment Treatment time: ULTRA SOUND TECHNICIAN Individual Minutes Time In: 1105 Time Out: 1130 Minutes: 25 *pt with Pt in gym upon arrival to room Subjective: [x] Alert [x] Cooperative [] Confused [] Agitated [] Lethargic Objective/Assessment: Attention: Pt. Required frequent repetition of stimuli/repeated directions. Recall: Not directly targeted. Problem Solving/Reasoning: sequential thought, pt attempted to sequence 4 steps (4 picture cards) 0% accuracy independently. When provided with first step of sequence, pt improved to 25% accuracy. Max cues to sustain attention to task provided throughout. Other: Pt. In recliner with chair alarm in use. Call light left within reach. Pt recalled call light button when prompted at end of session. Plan: [x] Continue ST services [] Discharge from ST: Discharge recommendations: [x] Further therapy recommended at discharge. [] No therapy recommended at discharge. Treatment completed by: Alvaro Burrell M.A., CCC-ULTRA SOUND TECHNICIAN * Juan Ramon Lucero MD - 03/05/2025 9:10 AM EDT Physical Medicine & Rehabilitation Progress Note Subjective: The patient is a 84 y.o. year old with ADL and Mobility deficits secondary to left hip fracture No acute events overnight. Nursing reported patient having increased tone, spasms to his left thighcausing pain and limiting therapy tolerance. Will start Robaxin today. He has no further complaintsat this time. ROS: Denies fevers, chills, sweats. No chest pain, palpitations, lightheadedness. Denies coughing, wheezing or shortness of breath. Denies abdominal pain, nausea, diarrhea or constipation. No new areas of joint pain. Denies new areas of numbness or weakness. Denies new anxiety or depression issues. No new skin problems. Rehabilitation: PT: Bed mobility Rolling to Left: Substantial/Maximal assistance, 2 Person assistance Rolling to Right: Minimal assistance Supine to Sit: Substantial/Maximal assistance, 2 Person assistance Sit to Supine: Substantial/Maximal assistance, 2 Person assistance Scooting: Substantial/Maximal assistance, 2 Person assistance Bed Mobility Comments: Patient up in WC and returned to recliner. Transfers Sit to Stand: Substantial/Maximal assistance, 2 Person Assistance Stand to Sit: Substantial/Maximal assistance, 2 Person Assistance Bed to Chair: Dependent/Total (Lynette Luly) Comment: Pt demonstrates forward flexed posture in lynette mauricio with downward gaze, hips weight shifted to right on paddles Ambulation WB Status: WBAT L LE Ambulation Surface: Level tile Device: Parallel Bars Other Apparatus: Wheelchair follow Quality of Gait: Stooped posture, knee flexion in stance phase, difficulty with weight acceptance to LLE, short step length bilateral Gait Deviations: Decreased step length, Decreased step height, Shuffles, Slow Wendy Distance: 5 feet x 2 Comments: Pt required cues for upright posture, flexed knee correction, and advancing hands first More Ambulation?: No (Patient declined amb. this date.) OT: Feeding: Setup Grooming: Supervision Grooming Skilled Clinical Factors: brush teeth, wash face seated in w/c up to sink. UE Bathing: Supervision UE Bathing Skilled Clinical Factors: seated in w/c up to sink. LE Bathing: Dependent/Total LE Bathing Skilled Clinical Factors: TA x 2 to stand with RW and wash ronit, bottom. seated- pt ableto wash thighs with set up, TA distally. ed pt how far he is allowed to bend to wash LE. pt had difficulty understanding and following this so OT had him hand her the washcloth to provide assist to wash distal LE to keep L hip precautions. UE Dressing: Minimal assistance UE Dressing Skilled Clinical Factors: t shirt. assist needed to pull down shirt in back- did not respond to cues. LE Dressing: Dependent/Total LE Dressing Skilled Clinical Factors: TA don pants over feet, TA x 2 to don pullups, pants over hips stand with lynette mauricio. Putting On/Taking Off Footwear: Dependent/Total Putting On/Taking Off Footwear Skilled Clinical Factors: TA don teds and slipper socks. Toileting: Dependent/Total Toileting Skilled Clinical Factors: TA x 2 stand with RW. Toilet Transfers Equipment Used: Grab bars Toilet Transfer: 2 Person assistance, Dependent/Total Toilet Transfers Comments: max x 2 stand pivot transfer with RW w/c to toilet with grab bars, TA x 2 stand for toileting with RW, then TA x 2 stand with lynette mauricio for transfer off toilet to w/c, then BSC obtained for over the toilet, due to pt max fatigued with mobility and higher surface will be helpful. plan communicated to nsg is lynette marin 2. SPEECH: Cognitive Treatment Treatment time: ULTRA SOUND TECHNICIAN Individual Minutes Time In: 1025 Time Out: 1102 Subjective: [x] Drowsy [x] Variable participation (yelling loudly into hallway with agitation earlier, high pain earlier today) [x] Confused [x] Easily frustrated/agitated at times [] Lethargic Objective/Assessment: Attention: Pt required frequent repetition to recall directions/stimuli in structured tasks. ST modified environment to reduce distraction. Orientation: x2/4 temporal. Recall: Pt is reluctant to admit memory deficits stating what do you want to know now about my past, why do you need to know my age, agitated at times. Delayed recall 1/5 indep. Can't recall: having earlier meal (stating he is waiting on breakfast tray when it came already). 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 Organization: N/A Problem Solving/Reasoning: Pt is yelling as loud as he can into hallway when confused/in pain earlier this date. Later during session his cell phone rings and despite ULTRA SOUND TECHNICIAN helping answer the pt shows confusion and does not greet individual on phone until a few minutes pass, showing reduced safety and relying heavily on staff to meet needs. Asked 4 reasons to utilize call light & pt can state 1/4 indep (e.g., if fell down, if need help-can't state specific) showing significant deficits. Pt starts saying how he calls family when asking reasons a patient should hit call light, showing he is not understanding despite repeating stimuli. Pt states he would not hit call light if he was in pain or if was hungry, showing reduced safety.Pt states that wouldn't happen, that wouldn't help anything when discussing hitting call light toget pain medication when in pain, showing poor safety and confusion. Pt closing eyes at times so reduced alertness and confusion may impact accuracy. Pt needs stimuli repeated so reduced comprehension or increased confusion may impact pt's ability to understand tasks. Other: No family present. Doctor arrived at end of ST session. Mostly giving ULTRA SOUND TECHNICIAN 1 word answers, reduced participation at times and easily frustrated. Extra time spend building rapport which slightlyreduced agitation. ULTRA SOUND TECHNICIAN needing to repeat stimuli in an attempt to increase participation but may bed/t reduced comprehension. 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 Plan: [x] Continue ST services [] Discharge from ST: Discharge recommendations: [x] Further therapy recommended at discharge. [] No therapy recommended at discharge. Objective: BP (!) 125/53 Pulse 64 Temp 97.7 F (36.5 C) (Oral) Resp 18 Ht 1.854 m (6' 0.99 ) Wt 97 kg(213 lb 13.5 oz) SpO2 97% BMI 28.22 kg/m GEN: well developed, well nourished, NAD HEENT: NCAT, PERRL, EOMI, mucous membranes pink and moist CV: RRR, no murmurs, rubs or gallops PULM: Respirations WNL and unlabored ABD: soft, non-tender, non-distended. No peritoneal signs. NEURO: Awake, oriented to person. Fluent speech. Appropriately interactive. Baseline dementia. MSK: Functional ROM impaired. Strength 5/5 throughout both arms. Strength 5/5 distal lower extremity; able to straight leg raise on right, deferred on left. EXTREMITIES: No calf tenderness to palpation bilaterally. No edema BLEs SKIN: warm dry and intact with good turgor PSYCH: appropriately interactive. Affect WNL. Diagnostics: CBC: No results for input(s): WBC , RBC , HGB , HCT , MCV , RDW , PLT in the last 72 hours. BMP: No results for input(s): NA , K , CL , CO2 , PHOS , BUN , CREATININE , GLUCOSE in the last72 hours. Invalid input(s): CA BNP: No results for input(s): BNP in the last 72 hours. PT/INR: No results for input(s): PROTIME , INR in the last 72 hours. APTT: No results for input(s): APTT in the last 72 hours. CARDIAC ENZYMES: No results for input(s): CKMB , CKMBINDEX , TROPONINT in the last 72 hours. Invalid input(s): CKTOTAL;3 troponins FASTING LIPID PANEL: Lab Results Component Value Date CHOL 135 02/25/2025 HDL 53 02/25/2025 TRIG 57 02/25/2025 LIVER PROFILE: No results for input(s): AST , ALT , BILIDIR , BILITOT , ALKPHOS in the last 72 hours. Invalid input(s): ALB Current Medications: Current Facility-Administered Medications: methocarbamol (ROBAXIN) tablet 500 mg, 500 mg, Oral, 4x Daily miconazole (MICOTIN) 2 % powder, , Topical, BID torsemide (DEMADEX) tablet 10 mg, 10 mg, Oral, Daily heparin (porcine) injection 5,000 Units, 5,000 Units, SubCUTAneous, 3 times per day polyethylene glycol (GLYCOLAX) packet 17 g, 17 g, Oral, Daily senna (SENOKOT) tablet 17.2 mg, 2 tablet, Oral, Daily PRN bisacodyl (DULCOLAX) suppository 10 mg, 10 mg, Rectal, Daily PRN acetaminophen (TYLENOL) tablet 650 mg, 650 mg, Oral, Q6H PRN OR [DISCONTINUED] acetaminophen (TYLENOL) suppository 650 mg, 650 mg, Rectal, Q6H PRN aspirin EC tablet 81 mg, 81 mg, Oral, BID carbidopa-levodopa (SINEMET) 25-100 MG per tablet 1 tablet, 1 tablet, Oral, TID levothyroxine (SYNTHROID) tablet 100 mcg, 100 mcg, Oral, Daily liothyronine (CYTOMEL) tablet 5 mcg, 5 mcg, Oral, Daily melatonin tablet 3 mg, 3 mg, Oral, Nightly PRN memantine (NAMENDA) tablet 10 mg, 10 mg, Oral, BID ondansetron (ZOFRAN-ODT) disintegrating tablet 4 mg, 4 mg, Oral, Q8H PRN OR [DISCONTINUED] ondansetron (ZOFRAN) injection 4 mg, 4 mg, IntraVENous, Q6H PRN oxyCODONE (ROXICODONE) immediate release tablet 5 mg, 5 mg, Oral, Q4H PRN OR oxyCODONE HCl (OXY-IR) immediate release tablet 10 mg, 10 mg, Oral, Q4H PRN sertraline (ZOLOFT) tablet 25 mg, 25 mg, Oral, Daily Impression/Plan: Impaired ADLs, gait, and mobility due to: Left femoral neck fracture secondary to fall s/p left hip hemiarthroplasty: surgery 02/[address] Downing. PT/OT for gait, mobility, strengthening, endurance, ADLs, and self care - 900 minute plan. Pain control with PRN Tylenol, PRN Oxycodone. Muscle spasms: Start Robaxin 500 mg 4 times daily 03/05. Parkinson's Disease: on sinemet Dementia: on Namenda. Essential hypertension: Per history, not currently on antihypertensive medications. Blood pressure well-controlled. Continue to monitor. Hyperlipidemia: lipid panel reviewed by Cardiology in acute care, monitoring off of cholesterol medications for now. Coronary artery disease: CABG in 2010. On Aspirin CHF: Torsemide held in setting of hypokalemia, not continued at discharge from acute care. Compensated. Pulmonary fibrosis ANIYA on CKD stage IIIb: baseline Cr ~2.1, improved to 1.7. Nephrology consulted. Continue to monitorwith periodic labs. Hypothyroidism: on synthroid, on liothyronine. TSH 1.91 02/25. Depression: on Zoloft Possible pancreatic cysts: Identified on chest CT, consider outpatient evaluation for MRCP on nonemergent basis. Bowel Management: Miralax daily, senokot prn, dulcolax prn. DVT Prophylaxis: SCD's while in bed, RIDDHI's during the day, and ASA 81 mg BID per Ortho protocol Internal Medicine for medical management Follow up: PCP 1-2 weeks, Orthopedic Surgery This note is created with the assistance of a speech recognition program. While intending to generate a document that actually reflects the content of the visit, the document can still have some errors including those of syntax and sound a like substitutions which may escape proof reading. In such instances, actual meaning can be extrapolated by contextual diversion. * Sully Roman, OT - 03/04/2025 4:11 PM EDT [facility] Occupational Therapy Daily Treatment Note Date: 03/04/25 Patient Name: Leanna Nguyễn Room: 2619/2619-01 Account: [id number] : 1940 (84 y.o.) Gender: male Diagnosis: left femoral neck fracture following fall. L hip Hemiarthroplasty , parkinson's. Additional Pertinent Hx: Leanna Nguyễn is a 84 y.o. right-handed male admitted to the [facility] unit on 02/28/2025. He was originally admitted to [facility] on 02/25/2025 for left femoral neck fracture following fall. 84-year-old male with a history of Parkinson's, CHF, coronary artery disease, CABG, hyperlipidemia, hypertension, altered mental status, syncope and collapse, pulmonary fibrosis, CKD and dementia presenting with hip pain after fall. Patient is disoriented at baseline. Cardiology 02/26-aspirin resumed, torsemide held in setting of hypokalemia. Internal medicine-left femoral neck fracture status post left hip hemiarthroplasty 02/25 lives in assisted living Ortho-displaced femoral neck fracture status post left hip hemiarthroplasty on 02/25 Nephrology- patientnoted to have ANIYA on CKD postoperative, UA and renal ultrasound unremarkable. Improved with gentle rehydration. Palliative care brother has power of civil attorney no , no children parents are deceasedStevnanette is the only sibling and next of kin reports that his daughter Kimberly is secondary, brother feels he can make his own decision, currently full code Treatment Diagnosis: impaired self care status d/t L hip hemiarthroplasty Past Medical History: has no past medical history on file. Past Surgical History: has a past surgical history that includes hip surgery (Left, 02/25/2025). Restrictions Restrictions/Precautions Restrictions/Precautions: Bed Alarm, Weight Bearing, Fall Risk, Surgical Protocols (WBAT LLE, posterior hip precautions) Activity Level: Up as Tolerated, Up with Assist Required Braces or Orthoses?: No Implants Present? : Metal implants (L blanka arthroplasty) Position Activity Restriction Hip Precautions: Posterior hip precautions, No hip flexion > 90 degrees, No sudden or extreme motions, No hip internal rotation, No hip external rotation, No ADduction Other Position/Activity Restrictions: Procedure: HIP HEMIARTHROPLASTY (Left: Hip) 02.25.[address] Downing-posterior precautions. Pt has history of parkinson's. Lower Extremity Weight Bearing Restrictions Left Lower Extremity Weight Bearing: Weight Bearing As Tolerated Subjective Subjective Subjective: Thank - you. pt states in am when OT adjusts volume on tv for him. Why are you doingthis to me? pt states in pm when OT requesting pt sit EOB or get up to w/c. Pain: high LLE, nsg providing pain meds. pt crying this am when OT washed even his R foot, continued during washing L foot, dry, don teds, shorts over feet and slipper socks then progressed to loudercrying when pt assisted supine to sit. nsg consulted with attempt to provide assist x 3 for lynette mauricio transfer to w/c and pt resisting and crying. Nsg agreed for pt to return to supine. pt then refused am PT, pm PT and pm OT. Objective Cognition Cognition Arousal/Alertness: Delayed responses to stimuli;Inconsistent responses to stimuli (pt sleepy at times) Following Commands: Does not follow commands (unsure how much due to cognition vs choice.) Memory: Decreased recall of recent events;Decreased recall of precautions;Decreased short term memory Safety Judgement: Decreased awareness of need for assistance;Decreased awareness of need for safety Problem Solving: Assistance required to generate solutions;Assistance required to identify errors made;Assistance required to correct errors made;Assistance required to implement solutions;Decreased awareness of errors Insights: Not aware of deficits Initiation: Requires cues for all Sequencing: Requires cues for all Cognition Comment: Why are you doing this to me? pt states in pm when OT requesting pt sit EOB orget up to w/c. ed pt re benefits of mobility and purpose of being on rehab unit- pt showed no signsof understanding. pt states he was up today- indicating w/c. demo decreased memory as this was not accurate, pt was in bed all day due to multiple refusals. Activities of Daily Living Feeding Assistance Level: Supervision Skilled Clinical Factors: observed pt's hamburger had bites taken out of it. pt holding fork in R hand at rest when not attempting to eat and needed assist to place fork back on the table. Lower Extremity Bathing Assistance Level: Dependent Skilled Clinical Factors: pt was assisted to wash BLE knees distally and cream was applied. pt began crying even when R foot was touched. Lower Extremity Dressing Assistance Level: Dependent Skilled Clinical Factors: TA don shorts over feet and felt puller hips from supine. Putting On/Taking Off Footwear Assistance Level: Dependent Skilled Clinical Factors: TA don teds and slipper socks. Mobility Roll Left Assistance Level: Maximum assistance Skilled Clinical Factors: attempted to roll to L but pt crying and so switched sides due to possible pain with roll onto L hip. Roll Right Assistance Level: Dependent Skilled Clinical Factors: pillow was placed between knees to prevent adduction LLE. TA x 1 vs max x2. Sit to Supine Assistance Level: Dependent;Requires x 2 assistance Supine to Sit Assistance Level: Dependent;Requires x 2 assistance Scooting Assistance Level: Dependent;Requires x 2 assistance Skilled Clinical Factors: to advance pt hips forward to EOB. OT Exercises Functional Mobility Circuit Training: pt crying this am when OT washed even his R foot, continued during washing L foot, dry, don teds, shorts over feet and slipper socks then progressed to louder crying when pt assisted supine to sit. nsg consulted with attempt to provide assist x 3 for lynette stedytransfer to w/c and pt resisting and crying. Nsg agreed for pt to return to supine. pt then refusedam PT, pm PT and pm OT. pm: had 2nd person ready to assist pt to sit EOB, pt stating no . bed bladder was used to pivot pt to roll slightly to the L to reduce pressure on his bottom. B heels were floated. this am: as pt was returned to supine, uGift boots were donned. Static Sitting Balance Exercises: concha 11 min sitting EOB- required mod- max of 1 entire time due tolean to R despite RUE on handrail. B feet were on the floor. Assessment Assessment Activity Tolerance: Treatment limited secondary to decreased cognition;Patient limited by fatigue;Patient limited by pain;Patient limited by endurance Patient Education Education Education Given To: Patient Education Provided: ADL Function;Mobility Training Education Provided Comments: Why are you doing this to me? pt states in pm when OT requesting pt sit EOB or get up to w/c. ed pt re benefits of mobility and purpose of being on rehab unit- pt showed no signs of understanding. Education Method: Demonstration;Verbal Barriers to Learning: Cognition Education Outcome: Unable to demonstrate understanding;Continued education needed Safety Devices Type of devices: All fall risk precautions in place;Patient at risk for falls;Left in bed;Bed alarmin place;Call light within reach Goals Patient Goals Patient goals : pt Short Term Goals Time Frame for Short Term Goals: 1 week Short Term Goal 1: indep feeding and grooming Short Term Goal 2: Pt will complete UB ADLs with set up A and Good cognition Short Term Goal 3: max x 1 toileting- LE bathe bottom and pants over hips assist stand with BUE support on lynette stedy or least restrictive device. Short Term Goal 4: concha 4-5 min static stand with BUE support with mod A of 1. Short Term Goal 5: Pt will participate in 30+ minutes of therapeutic exercises/functional activities to increase safety and independence with self care and mobility Additional Goals?: Yes Short Term Goal 6: concha 10 reps shld, elbow AROM with mod resistance on R and min on L for BUE strengthening for use during mobility for adls. Short Term Goal 7: able to tolerate safely performing adl transfers with max A x 2 and RW 50 % of the time during therapy. Test Technician Goals Time Frame for Test Technician Goals : by discharge Test Technician Goal 1: mod x 1 LE bathe and dress (with cues, assist provided due to pt poor memory withL hip precautions. ) Test Technician Goal 2: mod x 1 toileting and adl transfers Test Technician Goal 3: concha 6-7 min stand, transfer, amb with BUE support on RW and mod A. Group Home Goal 4: concha 15 reps shld, elbow AROM with mod resistance on R and min on L for BUE strengthening for use during mobility for adls. Group Home Goal 5: increase MMT B elbow to 4+/5, L shld to 4-/5 and R shld to 4/5 to demo improved BUE strengthening for use during mobility for adls. Plan Occupational Therapy Plan Times Per Week: 900 min of PT/OT/ST Times Per Day: Twice a day Current Treatment Recommendations: Strengthening, Balance training, Functional mobility training, Endurance training, Pain management, Safety education & training, Patient/Caregiver education & training, Equipment evaluation, education, & procurement, Positioning, Self-Care / ADL, Co-Treatment, Cognitive/Perceptual training, Wheelchair mobility training 03/04/25 1428 03/04/25 1548 OT Individual Minutes Time In 0800 1320 Time Out 0853 1339 Minutes 53 19 OT Individual Minutes OT Individual Minutes Time In: 1320 Time Out: 1339 Minutes: 19 * Brianne Rich, SOFTWARE DEVELOPMENT ENGINEER - 03/04/2025 1:09 PM EDT Images from the original note were not included. Physical Therapy Physical Therapy Cancel Note DATE: 03/04/2025 NAME: Leanna Nguyễn : 1940 Patient not seen this date for Physical Therapy due to: Patient Declined: Patient declined AM and PM sessions due to increased pain. I am having a bad morning. Patient demonstrates increased confusion this date. 03/04/25 0900 03/04/25 1245 Minute Variance Variance 60 30 Reason Refusal Refusal Cosigned by Li Littlejohn, PT at 03/05/2025 3:49 PM EDT * Ale Pan MD - 03/04/2025 12:21 PM EDT IN-PATIENT SERVICE [facility] Internal Medicine CONSULTATION / HISTORY AND PHYSICAL EXAMINATION Date: 03/04/2025 Patient name: Leanna Nguyễn Date of admission: 02/28/2025 3:30 PM Account: [id number] Date of : 1940 PCP: Pipe Jeffers MD Room: 2619/2619-01 Code Status: Full Code Physician Requesting Consult: Juan Ramon Lucero MD Reason for Consult: medical management Chief Complaint: Medical management History Obtained From: Patient medical record nursing staff History of Present Illness: Patient, has past medical history multiple medical problem, which include coronary artery disease status post CABG, CHF, hypothyroidism, hypertension, hyperlipidemia, pulmonary fibrosis, chronic kidney disease, Parkinson disease, dementia, patient presented to [facility] after a fall, he had left hip pain, found to have acute subcapital left femoral neck fracture, patient underwent left hip hemiarthroplasty on 02/25 While in hospital, patient had worsening creatinine, was evaluated by table worker, treated with IVfluids, torsemide was kept on hold, patient, creatinine improved to his baseline, Patient required Shell's catheter placement which was later removed Transferred to [facility], acute rehab unit for further management Past Medical History: History reviewed. No pertinent past medical history. Past Surgical History: Past Surgical History: Procedure Laterality Date HIP SURGERY Left 02/25/2025 HIP HEMIARTHROPLASTY performed by Ana Downing MD at [facility] OR Medications Prior to Admission: Prior to Admission medications Medication Sig Start Date End Date Taking? Authorizing Provider amLODIPine (NORVASC) 2.5 MG tablet Take 1 tablet by mouth daily Ruth Howe MD aspirin 81 MG chewable tablet Take 1 tablet by mouth daily Ruth Howe MD carbidopa-levodopa (SINEMET) 10-100 MG per tablet Take 1 tablet by mouth 3 times daily Ruth Howe MD cephALEXin (KEFLEX) 500 MG capsule Take 1 capsule by mouth 2 times daily Ruth Howe MD folic acid (FOLVITE) 400 MCG tablet Take 1 tablet by mouth daily Ruth Howe MD levothyroxine (SYNTHROID) 100 MCG tablet Take 1 tablet by mouth Daily Ruth Howe MD liothyronine (CYTOMEL) 5 MCG tablet Take 1 tablet by mouth daily Ruth Howe MD memantine (NAMENDA) 10 MG tablet Take 1 tablet by mouth 2 times daily Ruth Howe MD Multiple Vitamins-Minerals (THERAPEUTIC MULTIVITAMIN-MINERALS) tablet Take 1 tablet by mouth daily Ruth Howe MD potassium chloride (KLOR-CON) 20 MEQ packet Take 10 mEq by mouth daily Ruth Howe MD sennosides-docusate sodium (SENOKOT-S) 8.6-50 MG tablet Take 1 tablet by mouth daily Ruth Howe MD sertraline (ZOLOFT) 25 MG tablet Take 1 tablet by mouth daily Ruth Howe MD tolterodine (DETROL) 1 MG tablet Take 1 tablet by mouth 2 times daily Ruth Howe MD torsemide (DEMADEX) 10 MG tablet Take 1 tablet by mouth daily Ruth Howe MD vitamin B-12 (CYANOCOBALAMIN) 500 MCG tablet Take 1 tablet by mouth daily Ruth Howe MD vitamin D 50 MCG (1999 UT) CAPS capsule Take 1 capsule by mouth daily Ruth Howe MD Allergies: Patient has no known allergies. Social History: Tobacco: reports that he has never smoked. He has never been exposed to tobacco smoke. He has neverused smokeless tobacco. Alcohol: has no history on file for alcohol use. Drug Use: reports no history of drug use. Family History: No family history on file. Review of Systems: Positive and Negative as described in HPI. CONSTITUTIONAL: negative for fevers, chills, sweats, fatigue, weight loss HEENT: negative for vision, hearing changes, runny nose, throat pain RESPIRATORY: negative for shortness of breath, cough, congestion, wheezing. CARDIOVASCULAR: negative for chest pain, palpitations. GASTROINTESTINAL: negative for nausea, vomiting, diarrhea, constipation, change in bowel habits, abdominal pain GENITOURINARY: negative for difficulty of urination, burning with urination, frequency INTEGUMENT: negative for rash, skin lesions, easy bruising HEMATOLOGIC/LYMPHATIC: negative for swelling/edema ALLERGIC/IMMUNOLOGIC: negative for urticaria , itching ENDOCRINE: negative increase in drinking, increase in urination, hot or cold intolerance MUSCULOSKELETAL: Pain, left hip NEUROLOGICAL: negative for headaches, dizziness, lightheadedness, numbness, pain, tingling extremities BEHAVIOR/PSYCH: Physical Exam: BP (!) 140/59 Pulse 62 Temp 98.6 F (37 C) (Oral) Resp 16 Ht 1.854 m (6' 0.99 ) Wt 97 kg (213 lb 13.5 oz) SpO2 100% BMI 28.22 kg/m Temp (24hrs), Av.4 F (36.9 C), Min:98.1 F (36.7 C), Max:98.6 F (37 C) No results for input(s): POCGLU in the last 72 hours. Intake/Output Summary (Last 24 hours) at 03/04/2025 1221 Last data filed at 03/04/2025 0600 Gross per 24 hour Intake -- Output 500 ml Net -500 ml General Appearance: alert, well appearing, and in no acute distress, wheelchair-bound Mental status: oriented to person, place, and time with normal affect Head: normocephalic, atraumatic. Eye: no icterus, redness, pupils equal and reactive, extraocular eye movements intact, conjunctiva clear Ear: normal external ear, no discharge, hearing intact Nose: no drainage noted Mouth: mucous membranes moist Neck: supple, no carotid bruits, thyroid not palpable Lungs: Bilateral equal air entry, clear to ausculation, no wheezing, rales or rhonchi, normal effort Cardiovascular: normal rate, regular rhythm, no murmur, gallop, rub. Abdomen: Soft, nontender, nondistended, normal bowel sounds, no hepatomegaly or splenomegaly Neurologic: There are no new focal motor or sensory deficits, normal muscle tone and bulk, no abnormal sensation, normal speech, cranial nerves II through XII grossly intact Skin: No gross lesions, rashes, bruising or bleeding on exposed skin area Extremities: Postsurgical changes present left hip, mild edema in left leg Psych: Investigations: Laboratory Testing: No results found for this or any previous visit (from the past 24 hours). Consultations: IP CONSULT TO DIETITIAN IP CONSULT TO SOCIAL WORK IP CONSULT TO INTERNAL MEDICINE IP CONSULT TO NEPHROLOGY Assessment : Primary Problem Hip fracture, left, sequela Active Hospital Problems Diagnosis Date Noted S/P hip hemiarthroplasty [Z96.649] 03/01/2025 Closed fracture of left hip (HCC) [S72.002A] 03/01/2025 Hip fracture, left, sequela [S72.002S] 02/28/2025 Plan: Left hip fracture status post left hip hemiarthroplasty, on 02/25 Coronary artery disease status post CABG, on aspirin, not on statin, patient could not tell me whether he is allergic to statin or not, review of previous office visit notes, Lipitor is not mentionedin his home medication list, will discuss with close family, regarding previous documented statin allergies, patient, recently evaluated by loading unit operator, last LDL was 71 CHF, compensated Parkinson disease, follows closely with neurology as outpatient Dementia on Namenda Hypothyroidism on Synthroid and liothyronine , TSH tested recently is okay Chronic kidney disease, stable, was recently evaluated by table worker Starting patient on heparin 5000 every 8 for DVT prophylaxis Underwent CT of chest, concerning for pancreatic cyst, need outpatient evaluation by MRCP on nonemergent basis Ale Pan MD 03/04/2025 12:21 PM Copy sent to Pipe Doe MD Please note that this chart was generated using voice recognition [employer] dictation software. Although every effort was made to ensure the accuracy of this automated physical education professor, some errors in physical education professor may have occurred. * Lu Cavanaugh, ISHMAEL - 03/04/2025 10:51 AM EDT SPEECH LANGUAGE PATHOLOGY Speech Language Pathology [facility] Cognitive Treatment Note Date: 03/04/2025 Patient s Name: Leanna Nguyễn Diagnosis: Patient Active Problem List Diagnosis Code Left displaced femoral neck fracture (HCC) S72.002A Fall W19.XXXA ANIYA (acute kidney injury) N17.9 Parkinson's disease ([facility]) G20.A1 Coronary artery disease involving [place] coronary artery of [place] heart without angina pectoris I25.10 Hip fracture, left, sequela S72.002S S/P hip hemiarthroplasty Z96.649 Closed fracture of left hip ([facility]) S72.002A Pain Rating: no c/o pain Pain Location: N/A Non-Pharmaceutical Pain Intervention: N/A Had very high pain earlier, RN Sachin aware and keeping ahead with giving pain medication this date. Cognitive Treatment Treatment time: ULTRA SOUND TECHNICIAN Individual Minutes Time In: 1025 Time Out: 1102 Subjective: [x] Drowsy [x] Variable participation (yelling loudly into hallway with agitation earlier, high pain earlier today) [x] Confused [x] Easily frustrated/agitated at times [] Lethargic Objective/Assessment: Attention: Pt required frequent repetition to recall directions/stimuli in structured tasks. ST modified environment to reduce distraction. Orientation: x2/4 temporal. Recall: Pt is reluctant to admit memory deficits stating what do you want to know now about my past, why do you need to know my age, agitated at times. Delayed recall 1/5 indep. Can't recall: having earlier meal (stating he is waiting on breakfast tray when it came already). 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 Organization: N/A Problem Solving/Reasoning: Pt is yelling as loud as he can into hallway when confused/in pain earlier this date. Later during session his cell phone rings and despite ULTRA SOUND TECHNICIAN helping answer the pt shows confusion and does not greet individual on phone until a few minutes pass, showing reduced safety and relying heavily on staff to meet needs. Asked 4 reasons to utilize call light & pt can state 1/4 indep (e.g., if fell down, if need help-can't state specific) showing significant deficits. Pt starts saying how he calls family when asking reasons a patient should hit call light, showing he is not understanding despite repeating stimuli. Pt states he would not hit call light if he was in pain or if was hungry, showing reduced safety.Pt states that wouldn't happen, that wouldn't help anything when discussing hitting call light toget pain medication when in pain, showing poor safety and confusion. Pt closing eyes at times so reduced alertness and confusion may impact accuracy. Pt needs stimuli repeated so reduced comprehension or increased confusion may impact pt's ability to understand tasks. Other: No family present. Doctor arrived at end of ST session. Mostly giving ULTRA SOUND TECHNICIAN 1 word answers, reduced participation at times and easily frustrated. Extra time spend building rapport which slightlyreduced agitation. ULTRA SOUND TECHNICIAN needing to repeat stimuli in an attempt to increase participation but may bed/t reduced comprehension. 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 Plan: [x] Continue ST services [] Discharge from ST: Discharge recommendations: [x] Further therapy recommended at discharge. [] No therapy recommended at discharge. Lu Cavanaugh M.A., [facility]-ULTRA SOUND TECHNICIAN * Juan Ramon Lucero MD - 03/04/2025 9:29 AM EDT Physical Medicine & Rehabilitation Progress Note Subjective: The patient is a 84 y.o. year old with ADL and Mobility deficits secondary to left hip fracture No acute events overnight. Patient seen and examined in his room. Reports he is okay. States he hada rough morning due to hip pain. Reminded patient of available pain medications and discussed staying ahead of pain. Will discuss with nursing more frequent pain monitoring. ROS: Denies fevers, chills, sweats. No chest pain, palpitations, lightheadedness. Denies coughing, wheezing or shortness of breath. Denies abdominal pain, nausea, diarrhea or constipation. No new areas of joint pain. Denies new areas of numbness or weakness. Denies new anxiety or depression issues. No new skin problems. Rehabilitation: PT: Bed mobility Rolling to Left: Substantial/Maximal assistance, 2 Person assistance Rolling to Right: Minimal assistance Supine to Sit: Substantial/Maximal assistance, 2 Person assistance Sit to Supine: Substantial/Maximal assistance, 2 Person assistance Scooting: Substantial/Maximal assistance, 2 Person assistance Bed Mobility Comments: Patient up in WC and returned to recliner. Transfers Sit to Stand: Substantial/Maximal assistance, 2 Person Assistance Stand to Sit: Substantial/Maximal assistance, 2 Person Assistance Bed to Chair: Dependent/Total (Lynette Mauricio) Comment: Pt demonstrates forward flexed posture in lynette mauricio with downward gaze, hips weight shifted to right on paddles Ambulation WB Status: WBAT L LE Ambulation Surface: Level tile Device: Parallel Bars Other Apparatus: Wheelchair follow Quality of Gait: Stooped posture, knee flexion in stance phase, difficulty with weight acceptance to LLE, short step length bilateral Gait Deviations: Decreased step length, Decreased step height, Shuffles, Slow Wendy Distance: 5 feet x 2 Comments: Pt required cues for upright posture, flexed knee correction, and advancing hands first More Ambulation?: No (Patient declined amb. this date.) OT: Feeding: Setup Grooming: Supervision Grooming Skilled Clinical Factors: brush teeth, wash face seated in w/c up to sink. UE Bathing: Supervision UE Bathing Skilled Clinical Factors: seated in w/c up to sink. LE Bathing: Dependent/Total LE Bathing Skilled Clinical Factors: TA x 2 to stand with RW and wash ronit, bottom. seated- pt ableto wash thighs with set up, TA distally. ed pt how far he is allowed to bend to wash LE. pt had difficulty understanding and following this so OT had him hand her the washcloth to provide assist to wash distal LE to keep L hip precautions. UE Dressing: Minimal assistance UE Dressing Skilled Clinical Factors: t shirt. assist needed to pull down shirt in back- did not respond to cues. LE Dressing: Dependent/Total LE Dressing Skilled Clinical Factors: TA don pants over feet, TA x 2 to don pullups, pants over hips stand with lynette mauricio. Putting On/Taking Off Footwear: Dependent/Total Putting On/Taking Off Footwear Skilled Clinical Factors: TA don teds and slipper socks. Toileting: Dependent/Total Toileting Skilled Clinical Factors: TA x 2 stand with RW. Toilet Transfers Equipment Used: Grab bars Toilet Transfer: 2 Person assistance, Dependent/Total Toilet Transfers Comments: max x 2 stand pivot transfer with RW w/c to toilet with grab bars, TA x 2 stand for toileting with RW, then TA x 2 stand with lynette mauricio for transfer off toilet to w/c, then BSC obtained for over the toilet, due to pt max fatigued with mobility and higher surface will be helpful. plan communicated to ns is lynette marin 2. SPEECH: Cognitive Treatment Treatment time: ULTRA SOUND TECHNICIAN Individual Minutes Time In: 1025 Time Out: 1102 Subjective: [x] Drowsy [x] Variable participation (yelling loudly into hallway with agitation earlier, high pain earlier today) [x] Confused [x] Easily frustrated/agitated at times [] Lethargic Objective/Assessment: Attention: Pt required frequent repetition to recall directions/stimuli in structured tasks. ST modified environment to reduce distraction. Orientation: x2/4 temporal. Recall: Pt is reluctant to admit memory deficits stating what do you want to know now about my past, why do you need to know my age, agitated at times. Delayed recall 1/5 indep. Can't recall: having earlier meal (stating he is waiting on breakfast tray when it came already). 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 Organization: N/A Problem Solving/Reasoning: Pt is yelling as loud as he can into hallway when confused/in pain earlier this date. Later during session his cell phone rings and despite ULTRA SOUND TECHNICIAN helping answer the pt shows confusion and does not greet individual on phone until a few minutes pass, showing reduced safety and relying heavily on staff to meet needs. Asked 4 reasons to utilize call light & pt can state 1/4 indep (e.g., if fell down, if need help-can't state specific) showing significant deficits. Pt starts saying how he calls family when asking reasons a patient should hit call light, showing he is not understanding despite repeating stimuli. Pt states he would not hit call light if he was in pain or if was hungry, showing reduced safety.Pt states that wouldn't happen, that wouldn't help anything when discussing hitting call light toget pain medication when in pain, showing poor safety and confusion. Pt closing eyes at times so reduced alertness and confusion may impact accuracy. Pt needs stimuli repeated so reduced comprehension or increased confusion may impact pt's ability to understand tasks. Other: No family present. Doctor arrived at end of ST session. Mostly giving ULTRA SOUND TECHNICIAN 1 word answers, reduced participation at times and easily frustrated. Extra time spend building rapport which slightlyreduced agitation. ULTRA SOUND TECHNICIAN needing to repeat stimuli in an attempt to increase participation but may bed/t reduced comprehension. 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 Plan: [x] Continue ST services [] Discharge from ST: Discharge recommendations: [x] Further therapy recommended at discharge. [] No therapy recommended at discharge. Objective: BP (!) 140/59 Pulse 62 Temp 98.6 F (37 C) (Oral) Resp 16 Ht 1.854 m (6' 0.99 ) Wt 97 kg (213 lb 13.5 oz) SpO2 100% BMI 28.22 kg/m GEN: well developed, well nourished, NAD HEENT: NCAT, PERRL, EOMI, mucous membranes pink and moist CV: RRR, no murmurs, rubs or gallops PULM: Respirations WNL and unlabored ABD: soft, non-tender, non-distended. No peritoneal signs. NEURO: Awake, oriented to person. Fluent speech. Appropriately interactive. Baseline dementia. MSK: Functional ROM impaired. Strength 5/5 throughout both arms. Strength 5/5 distal lower extremity; able to straight leg raise on right, deferred on left. EXTREMITIES: No calf tenderness to palpation bilaterally. No edema BLEs SKIN: warm dry and intact with good turgor PSYCH: appropriately interactive. Affect WNL. Diagnostics: CBC: No results for input(s): WBC , RBC , HGB , HCT , MCV , RDW , PLT in the last 72 hours. BMP: No results for input(s): NA , K , CL , CO2 , PHOS , BUN , CREATININE , GLUCOSE in the last72 hours. Invalid input(s): CA BNP: No results for input(s): BNP in the last 72 hours. PT/INR: No results for input(s): PROTIME , INR in the last 72 hours. APTT: No results for input(s): APTT in the last 72 hours. CARDIAC ENZYMES: No results for input(s): CKMB , CKMBINDEX , TROPONINT in the last 72 hours. Invalid input(s): CKTOTAL;3 troponins FASTING LIPID PANEL: Lab Results Component Value Date CHOL 135 02/25/2025 HDL 53 02/25/2025 TRIG 57 02/25/2025 LIVER PROFILE: No results for input(s): AST , ALT , BILIDIR , BILITOT , ALKPHOS in the last 72 hours. Invalid input(s): ALB Current Medications: Current Facility-Administered Medications: miconazole (MICOTIN) 2 % powder, , Topical, BID torsemide (DEMADEX) tablet 10 mg, 10 mg, Oral, Daily heparin (porcine) injection 5,000 Units, 5,000 Units, SubCUTAneous, 3 times per day polyethylene glycol (GLYCOLAX) packet 17 g, 17 g, Oral, Daily senna (SENOKOT) tablet 17.2 mg, 2 tablet, Oral, Daily PRN bisacodyl (DULCOLAX) suppository 10 mg, 10 mg, Rectal, Daily PRN acetaminophen (TYLENOL) tablet 650 mg, 650 mg, Oral, Q6H PRN OR [DISCONTINUED] acetaminophen (TYLENOL) suppository 650 mg, 650 mg, Rectal, Q6H PRN aspirin EC tablet 81 mg, 81 mg, Oral, BID carbidopa-levodopa (SINEMET) 25-100 MG per tablet 1 tablet, 1 tablet, Oral, TID levothyroxine (SYNTHROID) tablet 100 mcg, 100 mcg, Oral, Daily liothyronine (CYTOMEL) tablet 5 mcg, 5 mcg, Oral, Daily melatonin tablet 3 mg, 3 mg, Oral, Nightly PRN memantine (NAMENDA) tablet 10 mg, 10 mg, Oral, BID ondansetron (ZOFRAN-ODT) disintegrating tablet 4 mg, 4 mg, Oral, Q8H PRN OR [DISCONTINUED] ondansetron (ZOFRAN) injection 4 mg, 4 mg, IntraVENous, Q6H PRN oxyCODONE (ROXICODONE) immediate release tablet 5 mg, 5 mg, Oral, Q4H PRN OR oxyCODONE HCl (OXY-IR) immediate release tablet 10 mg, 10 mg, Oral, Q4H PRN sertraline (ZOLOFT) tablet 25 mg, 25 mg, Oral, Daily Impression/Plan: Impaired ADLs, gait, and mobility due to: Left femoral neck fracture secondary to fall s/p left hip hemiarthroplasty: surgery 02/[address] Downing. PT/OT for gait, mobility, strengthening, endurance, ADLs, and self care - 900 minute plan. Pain control with PRN Tylenol, PRN Oxycodone. Parkinson's Disease: on sinemet Dementia: on Namenda. Essential hypertension: Per history, not currently on antihypertensive medications. Blood pressure well-controlled. Continue to monitor. Hyperlipidemia: lipid panel reviewed by Cardiology in acute care, monitoring off of cholesterol medications for now. Coronary artery disease: CABG in 2010. On Aspirin CHF: Torsemide held in setting of hypokalemia, not continued at discharge from acute care. Compensated. Pulmonary fibrosis ANIYA on CKD stage IIIb: baseline Cr ~2.1, improved to 1.7. Nephrology consulted. Continue to monitorwith periodic labs. Hypothyroidism: on synthroid, on liothyronine. TSH 1.91 02/25. Depression: on Zoloft Possible pancreatic cysts: Identified on chest CT, consider outpatient evaluation for MRCP on nonemergent basis. Bowel Management: Miralax daily, senokot prn, dulcolax prn. DVT Prophylaxis: SCD's while in bed, RIDDHI's during the day, and ASA 81 mg BID per Ortho protocol Internal Medicine for medical management Follow up: PCP 1-2 weeks, Orthopedic Surgery This note is created with the assistance of a speech recognition program. While intending to generate a document that actually reflects the content of the visit, the document can still have some errors including those of syntax and sound a like substitutions which may escape proof reading. In such instances, actual meaning can be extrapolated by contextual diversion. * Brianne Rich, SOFTWARE DEVELOPMENT ENGINEER - 03/03/2025 4:53 PM EDT Physical Therapy [facility] Acute Rehabilitation Physical Therapy Treatment Date: 03/03/25 Patient Name: Leanna Nguyễn Room: 2619/2619-01 Account: [id number] : 1940 (84 y.o.) Gender: male Additional Pertinent Hx: HISTORY OF PRESENT ILLNESS: This is an 84-year-old gentleman with history of atherosclerotic CAD s/p CABG, dyslipidemia, essential hypertension, hypothyroidism, Parkinson's disease, dementia with baseline disorientation, former smoker, pulmonary fibrosis, mild bilateral carotid artery disease, chronic kidney disease, chronic lower extremity edema, migraine headache and generalized osteoarthritis presented to the emergency room with complaints of left hip pain after he sustained a mechanical fall. Patient was sitting on the toilet, reached over and fell on the floor. He denies any loss of consciousness, dizziness or lightheadedness. Imaging shows displaced left femoral neck fracture, Dr Downing perform L Hip Hemiarthroplasty on 02/25/25. Pt allowed WBAT L LE for mobility. Response To Previous Treatment: Patient with no complaints from previous session. Family/Caregiver Present: No Referring Practitioner: Dr. Betancourt Referral Date : 02/28/25 Diagnosis: Left femoral neck fracture, S/P Left Hip hemiarthroplasty Follows Commands: Within Functional Limits Treatment Diagnosis: Difficulty walking Past Medical History: has no past medical history on file. Past Surgical History: has a past surgical history that includes hip surgery (Left, 02/25/2025). Restrictions Restrictions/Precautions Restrictions/Precautions: Bed Alarm, Weight Bearing, Fall Risk, Surgical Protocols (WBAT LLE, posterior hip precautions) Activity Level: Up as Tolerated, Up with Assist Required Braces or Orthoses?: No Implants Present? : Metal implants (L blanka arthroplasty) Lower Extremity Weight Bearing Restrictions Left Lower Extremity Weight Bearing: Weight Bearing As Tolerated Position Activity Restriction Hip Precautions: Posterior hip precautions, No hip flexion > 90 degrees, No sudden or extreme motions, No hip internal rotation, No hip external rotation, No ADduction Other Position/Activity Restrictions: Procedure: HIP HEMIARTHROPLASTY (Left: Hip) 02.25.[address] Downing-posterior precautions. Pt has history of parkinson's. Subjective Subjective Subjective: Patient agreeable to both AM and PM sessions. Bed Mobility Bed mobility Bed Mobility Comments: Patient up in WC and returned to recliner. Transfers Transfers Sit to Stand: Substantial/Maximal assistance;2 Person Assistance Stand to Sit: Substantial/Maximal assistance;2 Person Assistance Bed to Chair: Dependent/Total (Lynette Mauricio) Mobility Ambulation More Ambulation?: No (Patient declined amb. this date.) PT Exercises PT Exercises PROM Exercises: PROM with orange slider to L knee. A/AROM Exercises: Seated bilat. LE ex. 2x10 reps as tolerated. Used a 4 platform to rest LE's on due to WC to high. Circulation/Endurance Exercises: Seated UBE 5 mins. forward only. Static Standing Balance Exercises: Sit to stand to RW. Max A. Denied amb. Exercise Equipment: NuStep x 15 workload 6 ; seat 12 and arms 11 Activity Tolerance Activity Tolerance Activity Tolerance: Patient tolerated treatment well Assessment Performance Deficits/Impairments: Decreased functional mobility , Decreased ROM, Decreased strength, Decreased safe awareness, Decreased cognition, Decreased endurance, Decreased vision/visual deficit, Increased pain, Decreased posture History: Hx of Parkinsons, dementia and heart failure. Discharge Recommendations: Home with assist PRN, Home with Home health PT Education Restraints Restraints Initially in Place: No Goals Patient Goals Patient Goals : To work on standing up straight, to go back to [facility] Short Term Goals Time Frame for Short Term Goals: 10 visits Short Term Goal 1: Pt to complete supine<>sit at min A with HOB flat, use of rail Short Term Goal 2: Pt to complete sit to stand transfers with min assist, stand pivot transfers using RW with min assist Short Term Goal 3: Pt to ambulate with RW for 25 feet min assist Short Term Goal 4: Pt to improve standing balance to F+/F to reduce fall risk Short Term Goal 5: Pt to improve left hip strength to 3+/5, and knee strength to 4/5 to facilitate increased independence with gait, transfers Additional Goals?: Yes Short Term Goal 6: Pt to demonstrate posterior hip precautions with mod cueing during transfers andbed mobility Short Term Goal 7: Pt to propel wheelchair for 50 feet using UEs and LEs as able with SBA Short Term Goal 8: Pt to participate in TUG test if able using RW Group Home Goals Time Frame for Group Home Goals : By d/c Test Technician Goal 1: Pt to complete bed mobility sup<>sit with SBA using rail prn Group Home Goal 2: Pt to complete sit to stand, stand pivot and car transfers with RW SBA Test Technician Goal 3: Pt to ambulate with RW for 50 feet or > SBA with cues for safety/posture Group Home Goal 4: Pt to picking supervisor object from floor using banquet houseperson and UE support on RW with SBA Test Technician Goal 5: Pt to improve balance and safety with ambulation as evidence by ability to complete TUG test in 30 seconds or less using RW Additional Goals?: Yes tong setter goal 6: Pt to complete LE supine and seated ther ex for strengthening with min assist using handout Plan of Care Physical Therapy Plan General Plan: (900 minutes per week of combined PT, OT, ST due to poor tolerance to activity 2* high levels of pain and cognitive deficits) Current Treatment Recommendations: Strengthening, ROM, Balance training, Functional mobility training, Transfer training, Gait training, Stair training, Neuromuscular re-education, Pain management, Home exercise program, Safety education & training, Patient/Caregiver education & training, Equipment evaluation, education, & procurement, Therapeutic activities, Wheelchair mobility training Safety Devices Type of Devices: All fall risk precautions in place, Call light within reach, Chair alarm in place,Gait belt, Patient at risk for falls, Left in chair PT Minutes 03/03/25 0915 03/03/25 1255 PT Individual Minutes Time In 0915 1255 Time Out 1015 1330 Minutes 60 35 Cosigned by Sridhar Simpson PT at 03/08/2025 5:48 PM EDT * Kevin Pappas, [facility] - 03/03/2025 2:56 PM EDT SPEECH LANGUAGE PATHOLOGY Speech Language Pathology [facility] Cognitive Treatment Note Date: 03/03/2025 Patient s Name: Leanna Nguyễn Diagnosis: Patient Active Problem List Diagnosis Code Left displaced femoral neck fracture (HCC) S72.002A Fall W19.XXXA ANIYA (acute kidney injury) N17.9 Parkinson's disease (HCC) G20.A1 Coronary artery disease involving [place] coronary artery of [place] heart without angina pectoris I25.10 Hip fracture, left, sequela S72.002S S/P hip hemiarthroplasty Z96.649 Closed fracture of left hip (HCC) S72.002A Pain Rating: no c/o pain Pain Location: N/A Non-Pharmaceutical Pain Intervention: N/A Cognitive Treatment Treatment time: ULTRA SOUND TECHNICIAN Individual Minutes Time In: 1104 Time Out: 1130 Minutes: 26 Subjective: [x] Alert [x] Cooperative [] Confused [] Agitated [] Lethargic Objective/Assessment: Attention: Pt required frequent repetition to recall directions/stimuli in structured tasks. ST modified environment to reduce distraction. Orientation: x2/4 temporal, 2/2 spatial concepts recalled with min A for use of external supports. Recall: Delayed recall: 0/3 RI (strategy instruction), improved to 1/3 max A. Organization: Category label/add item: Pt required max A to complete with 50% accuracy. Unable to complete any items successfully (I). Problem Solving/Reasoning: Object compare/contrast: 25% (I), improved to 45% min A/repeated directions, 75% max A. Other: Pt in wheelchair with alarm attached at end of session. Plan: [x] Continue ST services [] Discharge from ST: Discharge recommendations: [x] Further therapy recommended at discharge. [] No therapy recommended at discharge. Treatment completed by: Kevin Pappas M.S., [facility]-ULTRA SOUND TECHNICIAN * Saul Crouch MD - 03/03/2025 2:40 PM EDT NEPHROLOGY PROGRESS NOTE Patient : Leanna Nguyễn; 84 y.o. Location: 2619/2619-01 Attending: Juan Ramon Lucero MD Admit Date: 02/28/2025 Hospital Day: 3 Reason for Consult: ANIYA on CKD Chief Complaint: Fall History Obtained From: family member , electronic medical record Subjective Patient seen and examined, no new complains Sitting in recliner Labs scr stable 1.7 mg/dl BP stable History of Present Illness: This is a 84 y.o. male Patient with past medical history of atherosclerotic coronary artery diseasestatus post CABG, history of hyperlipidemia, essential hypertension, hypothyroidism, Parkinson's disease dementia with baseline disorientation former smoker, history of pulmonary fibrosis mild bilateral cardiac carotid artery disease, CKD stage III. Patient presented [facility]25[facility]2025 with complaints of left hip pain after he recently sustained a fall, patient denies dizziness nausea vomiting chest pain X-ray showed displaced femoral neck fracture of left hip, patient underwent left hip hemiarthroplasty on 02/25/2025 Patient serum creatinine on admission 1 on 02/25/2025 noted with 2.8 mg/dL and therefore nephrology was consulted, during the hospital stay kidney function improved to 1.8 mg/dL on 02/27/2025, patient was discharged to acute rehab. Nephrology was consulted to follow for ANIYA on CKD. Patient seen and examined at acute rehab no acute events patient is tired and exhausted after the physical therapy laying comfortably not in acute distress Past Medical History: History reviewed. No pertinent past medical history. Past Surgical History: Procedure Laterality Date HIP SURGERY Left 02/25/2025 HIP HEMIARTHROPLASTY performed by Ana Downing MD at [facility] OR Current Medications: miconazole (MICOTIN) 2 % powder, BID heparin (porcine) injection 5,000 Units, 3 times per day polyethylene glycol (GLYCOLAX) packet 17 g, Daily senna (SENOKOT) tablet 17.2 mg, Daily PRN bisacodyl (DULCOLAX) suppository 10 mg, Daily PRN acetaminophen (TYLENOL) tablet 650 mg, Q6H PRN aspirin EC tablet 81 mg, BID carbidopa-levodopa (SINEMET) 25-100 MG per tablet 1 tablet, TID levothyroxine (SYNTHROID) tablet 100 mcg, Daily liothyronine (CYTOMEL) tablet 5 mcg, Daily melatonin tablet 3 mg, Nightly PRN memantine (NAMENDA) tablet 10 mg, BID ondansetron (ZOFRAN-ODT) disintegrating tablet 4 mg, Q8H PRN oxyCODONE (ROXICODONE) immediate release tablet 5 mg, Q4H PRN Or oxyCODONE HCl (OXY-IR) immediate release tablet 10 mg, Q4H PRN sertraline (ZOLOFT) tablet 25 mg, Daily Allergies: Patient has no known allergies. Social History: Social History Socioeconomic History Marital status: Unknown Spouse name: Not on file Number of children: Not on file Years of education: Not on file Highest education level: Not on file Occupational History Not on file Tobacco Use Smoking status: Never Passive exposure: Never Smokeless tobacco: Never Substance and Sexual Activity Alcohol use: Not on file Drug use: Never Sexual activity: Not on file Other Topics Concern Not on file Social History Narrative Not on file Social Drivers of Health Financial Resource Strain: Not on file Food Insecurity: No Food Insecurity (02/28/2025) Hunger Vital Sign Worried About Running Out of Food in the Last Year: Never true Ran Out of Food in the Last Year: Never true Transportation Needs: No Transportation Needs (02/28/2025) PRAPARE - Transportation Lack of Transportation (Medical): No Lack of Transportation (Non-Medical): No Physical Activity: Not on file Stress: Not on file Social Connections: Not on file Intimate Partner Violence: Unknown (08/27/2023) Received from [facility] Safety & Environment Fear of Current or Ex-Partner: Not on file Emotionally Abused: Not on file Physically Abused: Not on file Sexually Abused: Not on file Physically or Sexually Abused: Not on file Housing Stability: Low Risk (02/28/2025) Housing Stability Vital Sign Unable to Pay for Housing in the Last Year: No Number of Times Moved in the Last Year: 0 Homeless in the Last Year: No Family History: No family history on file. Review of Systems: Patient not responding to verbal stimuli is sleeping Objective: CURRENT TEMPERATURE: Temp: 97.9 F (36.6 C) MAXIMUM TEMPERATURE OVER 24HRS: Temp (24hrs), Av.1 F (36.7 C), Min:97.9 F (36.6 C), Max:98.2 F (36.8 C) CURRENT RESPIRATORY RATE: Respirations: 16 CURRENT PULSE: Pulse: 66 CURRENT BLOOD PRESSURE: BP: 127/61 24HR BLOOD PRESSURE RANGE: Systolic (24hrs), Av , Min:126 , Max:127 ; Diastolic (24hrs), Av, Min:61, Max:71 24HR INTAKE/OUTPUT: No intake or output data in the 24 hours ending 03/03/25 1440 Patient Vitals for the past 96 hrs (Last 3 readings): Weight 02/28/25 1815 97 kg (213 lb 13.5 oz) 02/28/25 1545 97 kg (213 lb 13.5 oz) Physical Exam: GENERAL APPEARANCE: Comfortable not in acute distress HEAD: normocephalic NOSE: No nasal discharge. CARDIAC: Normal S1 and S2. No S3, S4 or murmurs. Rhythm is regular. LUNGS: Clear to auscultation without rales, rhonchi, wheezing or diminished breath sounds. NECK: Neck supple, trachea midline GI-soft nontender nondistended abdomen MUSKULOSKELETAL: Adequately aligned spine. No joint erythema or tenderness. EXTREMITIES: No edema. Peripheral pulses intact. NEURO: Nonfocal Labs: CBC: Recent Labs 03/01/25 0709 WBC 8.3 RBC 4.09* HGB 11.7* HCT 38.2* MCV 93.4 MCH 28.6 MCHC 30.6* RDW 13.9 PLT 168 MPV 9.3 BMP: Recent Labs 03/01/25 0709 NA 137 K 3.7 CL 102 CO2 26 BUN 43* CREATININE 1.7* GLUCOSE 104* CALCIUM 9.0 Phosphorus: No results for input(s): PHOS in the last 72 hours. Radiology: Reviewed as available. Assessment: Patient initially admitted with fall ,displaced femoral neck fracture of left hip, patient underwent left hip hemiarthroplasty on 02/25/2025 Acute kidney injury on CKD most likely secondary to prerenal azotemia serum creatinine peaked to 2.8 mg/dL on 02/25/2025 serum creatinine improved to 1.8 mg/dL most recent serum creatinine is 1.7 mg/dL. 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 * Juan Ramon Lucero MD - 03/03/2025 1:44 PM EDT Physical Medicine & Rehabilitation Progress Note Subjective: The patient is a 84 y.o. year old with ADL and Mobility deficits secondary to left hip fracture No acute events overnight. Patient seen examined resting in his room. Patient is in a much better and more agreeable mood today. He reports he is doing well today. States he slept well last night. Hedoes endorse some left hip pain but feels it is improved with pain medications. ROS: Denies fevers, chills, sweats. No chest pain, palpitations, lightheadedness. Denies coughing, wheezing or shortness of breath. Denies abdominal pain, nausea, diarrhea or constipation. No new areas of joint pain. Denies new areas of numbness or weakness. Denies new anxiety or depression issues. No new skin problems. Rehabilitation: PT: Bed mobility Rolling to Left: Substantial/Maximal assistance, 2 Person assistance Rolling to Right: Minimal assistance Supine to Sit: Substantial/Maximal assistance, 2 Person assistance Sit to Supine: Substantial/Maximal assistance, 2 Person assistance Scooting: Substantial/Maximal assistance, 2 Person assistance Bed Mobility Comments: max time req, cuing with poor return, use of bed pad req to progress hips forward Transfers Sit to Stand: Substantial/Maximal assistance, 2 Person Assistance Stand to Sit: Substantial/Maximal assistance, 2 Person Assistance Bed to Chair: Dependent/Total (lynette mauricio) Comment: Pt demonstrates forward flexed posture in lynette mauricio with downward gaze, hips weight shifted to right on paddles Ambulation WB Status: WBAT L LE Ambulation Surface: Level tile Device: Parallel Bars Other Apparatus: Wheelchair follow Quality of Gait: Stooped posture, knee flexion in stance phase, difficulty with weight acceptance to LLE, short step length bilateral Gait Deviations: Decreased step length, Decreased step height, Shuffles, Slow Wendy Distance: 5 feet x 2 Comments: Pt required cues for upright posture, flexed knee correction, and advancing hands first OT: Feeding: Setup Grooming: Supervision Grooming Skilled Clinical Factors: brush teeth, wash face seated in w/c up to sink. UE Bathing: Supervision UE Bathing Skilled Clinical Factors: seated in w/c up to sink. LE Bathing: Dependent/Total LE Bathing Skilled Clinical Factors: TA x 2 to stand with RW and wash ronit, bottom. seated- pt ableto wash thighs with set up, TA distally. ed pt how far he is allowed to bend to wash LE. pt had difficulty understanding and following this so OT had him hand her the washcloth to provide assist to wash distal LE to keep L hip precautions. UE Dressing: Minimal assistance UE Dressing Skilled Clinical Factors: t shirt. assist needed to pull down shirt in back- did not respond to cues. LE Dressing: Dependent/Total LE Dressing Skilled Clinical Factors: TA don pants over feet, TA x 2 to don pullups, pants over hips stand with lynette mauricio. Putting On/Taking Off Footwear: Dependent/Total Putting On/Taking Off Footwear Skilled Clinical Factors: TA don teds and slipper socks. Toileting: Dependent/Total Toileting Skilled Clinical Factors: TA x 2 stand with RW. Toilet Transfers Equipment Used: Grab bars Toilet Transfer: 2 Person assistance, Dependent/Total Toilet Transfers Comments: max x 2 stand pivot transfer with RW w/c to toilet with grab bars, TA x 2 stand for toileting with RW, then TA x 2 stand with lynette mauricio for transfer off toilet to w/c, then BSC obtained for over the toilet, due to pt max fatigued with mobility and higher surface will be helpful. plan communicated to nsg is lynette marin 2. SPEECH: Cognitive Treatment Treatment time: ULTRA SOUND TECHNICIAN Individual Minutes Time In: 1315 Time Out: 1345 Minutes: 30 Subjective: [x] Alert [x] Cooperative [] Confused [] Agitated [] Lethargic Objective/Assessment: Attention: Pt. Very externally distracted. Attempted to minimize distractions (pt. Often looking out into hallway/distracted by noise at the nurses station) however pt. Would not allow ST to shut door. Pt. Required frequent repetition of stimuli/repeated directions. Recall: Not directly targeted. Pt. Did recall telling ST joke yesterday 03/01. Problem Solving/Reasoning: ID problem in pictures: 08/14 increased to 03/14 given MAX cues. Other: Pt. In recliner with chair alarm in use. Call light left within reach. Plan: [x] Continue ST services [] Discharge from ST: Discharge recommendations: [x] Further therapy recommended at discharge. [] No therapy recommended at discharge. Objective: BP 127/61 Pulse 66 Temp 97.9 F (36.6 C) (Oral) Resp 16 Ht 1.854 m (6' 0.99 ) Wt 97 kg (213 lb 13.5 oz) SpO2 99% BMI 28.22 kg/m GEN: well developed, well nourished, NAD HEENT: NCAT, PERRL, EOMI, mucous membranes pink and moist CV: RRR, no murmurs, rubs or gallops PULM: Respirations WNL and unlabored ABD: soft, non-tender, non-distended. No peritoneal signs. NEURO: Awake, oriented to person, location, general situation. Fluent speech. Appropriately interactive. Baseline dementia. MSK: Functional ROM impaired. Strength 5/5 throughout both arms. Strength 5/5 distal lower extremity; able to straight leg raise on right, deferred on left. EXTREMITIES: No calf tenderness to palpation bilaterally. No edema BLEs SKIN: warm dry and intact with good turgor PSYCH: appropriately interactive. Affect WNL. Diagnostics: CBC: Recent Labs 03/01/25 0709 WBC 8.3 RBC 4.09* HGB 11.7* HCT 38.2* MCV 93.4 RDW 13.9 PLT 168 BMP: Recent Labs 03/01/25 0709 NA 137 K 3.7 CL 102 CO2 26 BUN 43* CREATININE 1.7* GLUCOSE 104* BNP: No results for input(s): BNP in the last 72 hours. PT/INR: No results for input(s): PROTIME , INR in the last 72 hours. APTT: No results for input(s): APTT in the last 72 hours. CARDIAC ENZYMES: No results for input(s): CKMB , CKMBINDEX , TROPONINT in the last 72 hours. Invalid input(s): CKTOTAL;3 troponins FASTING LIPID PANEL: Lab Results Component Value Date CHOL 135 02/25/2025 HDL 53 02/25/2025 TRIG 57 02/25/2025 LIVER PROFILE: Recent Labs 03/01/25 0709 AST 23 ALT <5* BILIDIR 0.2 BILITOT 0.6 ALKPHOS 77 Current Medications: Current Facility-Administered Medications: miconazole (MICOTIN) 2 % powder, , Topical, BID heparin (porcine) injection 5,000 Units, 5,000 Units, SubCUTAneous, 3 times per day polyethylene glycol (GLYCOLAX) packet 17 g, 17 g, Oral, Daily senna (SENOKOT) tablet 17.2 mg, 2 tablet, Oral, Daily PRN bisacodyl (DULCOLAX) suppository 10 mg, 10 mg, Rectal, Daily PRN acetaminophen (TYLENOL) tablet 650 mg, 650 mg, Oral, Q6H PRN OR [DISCONTINUED] acetaminophen (TYLENOL) suppository 650 mg, 650 mg, Rectal, Q6H PRN aspirin EC tablet 81 mg, 81 mg, Oral, BID carbidopa-levodopa (SINEMET) 25-100 MG per tablet 1 tablet, 1 tablet, Oral, TID levothyroxine (SYNTHROID) tablet 100 mcg, 100 mcg, Oral, Daily liothyronine (CYTOMEL) tablet 5 mcg, 5 mcg, Oral, Daily melatonin tablet 3 mg, 3 mg, Oral, Nightly PRN memantine (NAMENDA) tablet 10 mg, 10 mg, Oral, BID ondansetron (ZOFRAN-ODT) disintegrating tablet 4 mg, 4 mg, Oral, Q8H PRN OR [DISCONTINUED] ondansetron (ZOFRAN) injection 4 mg, 4 mg, IntraVENous, Q6H PRN oxyCODONE (ROXICODONE) immediate release tablet 5 mg, 5 mg, Oral, Q4H PRN OR oxyCODONE HCl (OXY-IR) immediate release tablet 10 mg, 10 mg, Oral, Q4H PRN sertraline (ZOLOFT) tablet 25 mg, 25 mg, Oral, Daily Impression/Plan: Impaired ADLs, gait, and mobility due to: Left femoral neck fracture secondary to fall s/p left hip hemiarthroplasty: surgery 02/[address] Downing. PT/OT for gait, mobility, strengthening, endurance, ADLs, and self care - 900 minute plan. Pain control with PRN Tylenol, PRN Oxycodone. Parkinson's Disease: on sinemet Dementia: on Namenda. Essential hypertension: Per history, not currently on antihypertensive medications. Blood pressure well-controlled. Continue to monitor. Hyperlipidemia: lipid panel reviewed by Cardiology in acute care, monitoring off of cholesterol medications for now. Coronary artery disease: CABG in 2010. On Aspirin CHF: Torsemide held in setting of hypokalemia, not continued at discharge from acute care. Compensated. Pulmonary fibrosis ANIYA on CKD stage IIIb: baseline Cr ~2.1, improved to 1.7. Nephrology consulted. Continue to monitorwith periodic labs. Hypothyroidism: on synthroid, on liothyronine. TSH 1.91 02/25. Depression: on Zoloft Possible pancreatic cysts: Identified on chest CT, consider outpatient evaluation for MRCP on nonemergent basis. Bowel Management: Miralax daily, senokot prn, dulcolax prn. DVT Prophylaxis: SCD's while in bed, RIDDHI's during the day, and ASA 81 mg BID per Ortho protocol Internal Medicine for medical management Follow up: PCP 1-2 weeks, Orthopedic Surgery This note is created with the assistance of a speech recognition program. While intending to generate a document that actually reflects the content of the visit, the document can still have some errors including those of syntax and sound a like substitutions which may escape proof reading. In such instances, actual meaning can be extrapolated by contextual diversion. * Clint Scales MD - 03/03/2025 1:12 PM EDT IN-PATIENT SERVICE [facility] Internal Medicine CONSULTATION / HISTORY AND PHYSICAL EXAMINATION Date: 03/03/2025 Patient name: Leanna Nguyễn Date of admission: 02/28/2025 3:30 PM Account: [id number] Date of : 1940 PCP: Pipe Jeffers MD Room: 2619/2619-01 Code Status: Full Code Physician Requesting Consult: Juan Ramon Lucero MD Reason for Consult: medical management Chief Complaint: Medical management History Obtained From: Patient medical record nursing staff History of Present Illness: Patient, has past medical history multiple medical problem, which include coronary artery disease status post CABG, CHF, hypothyroidism, hypertension, hyperlipidemia, pulmonary fibrosis, chronic kidney disease, Parkinson disease, dementia, patient presented to [facility] after a fall, he had left hip pain, found to have acute subcapital left femoral neck fracture, patient underwent left hip hemiarthroplasty on 02/25 While in hospital, patient had worsening creatinine, was evaluated by table worker, treated with IVfluids, torsemide was kept on hold, patient, creatinine improved to his baseline, Patient required Shell's catheter placement which was later removed Transferred to [facility] rehab unit for further management Past Medical History: History reviewed. No pertinent past medical history. Past Surgical History: Past Surgical History: Procedure Laterality Date HIP SURGERY Left 02/25/2025 HIP HEMIARTHROPLASTY performed by Aan Downing MD at [facility] OR Medications Prior to Admission: Prior to Admission medications Medication Sig Start Date End Date Taking? Authorizing Provider amLODIPine (NORVASC) 2.5 MG tablet Take 1 tablet by mouth daily Ruth Howe MD aspirin 81 MG chewable tablet Take 1 tablet by mouth daily Ruth Howe MD carbidopa-levodopa (SINEMET) 10-100 MG per tablet Take 1 tablet by mouth 3 times daily Ruth Howe MD cephALEXin (KEFLEX) 500 MG capsule Take 1 capsule by mouth 2 times daily Ruth Howe MD folic acid (FOLVITE) 400 MCG tablet Take 1 tablet by mouth daily Ruth Howe MD levothyroxine (SYNTHROID) 100 MCG tablet Take 1 tablet by mouth Daily Ruth Howe MD liothyronine (CYTOMEL) 5 MCG tablet Take 1 tablet by mouth daily Ruth Howe MD memantine (NAMENDA) 10 MG tablet Take 1 tablet by mouth 2 times daily Ruth Howe MD Multiple Vitamins-Minerals (THERAPEUTIC MULTIVITAMIN-MINERALS) tablet Take 1 tablet by mouth daily Ruth Howe MD potassium chloride (KLOR-CON) 20 MEQ packet Take 10 mEq by mouth daily Ruth Howe MD sennosides-docusate sodium (SENOKOT-S) 8.6-50 MG tablet Take 1 tablet by mouth daily Ruth Howe MD sertraline (ZOLOFT) 25 MG tablet Take 1 tablet by mouth daily Ruth Howe MD tolterodine (DETROL) 1 MG tablet Take 1 tablet by mouth 2 times daily Ruth Howe MD torsemide (DEMADEX) 10 MG tablet Take 1 tablet by mouth daily Ruth Howe MD vitamin B-12 (CYANOCOBALAMIN) 500 MCG tablet Take 1 tablet by mouth daily Ruth Howe MD vitamin D 50 MCG (1999 UT) CAPS capsule Take 1 capsule by mouth daily Ruth Howe MD Allergies: Patient has no known allergies. Social History: Tobacco: reports that he has never smoked. He has never been exposed to tobacco smoke. He has neverused smokeless tobacco. Alcohol: has no history on file for alcohol use. Drug Use: reports no history of drug use. Family History: No family history on file. Review of Systems: Positive and Negative as described in HPI. CONSTITUTIONAL: negative for fevers, chills, sweats, fatigue, weight loss HEENT: negative for vision, hearing changes, runny nose, throat pain RESPIRATORY: negative for shortness of breath, cough, congestion, wheezing. CARDIOVASCULAR: negative for chest pain, palpitations. GASTROINTESTINAL: negative for nausea, vomiting, diarrhea, constipation, change in bowel habits, abdominal pain GENITOURINARY: negative for difficulty of urination, burning with urination, frequency INTEGUMENT: negative for rash, skin lesions, easy bruising HEMATOLOGIC/LYMPHATIC: negative for swelling/edema ALLERGIC/IMMUNOLOGIC: negative for urticaria , itching ENDOCRINE: negative increase in drinking, increase in urination, hot or cold intolerance MUSCULOSKELETAL: Pain, left hip NEUROLOGICAL: negative for headaches, dizziness, lightheadedness, numbness, pain, tingling extremities BEHAVIOR/PSYCH: Physical Exam: BP 127/61 Pulse 66 Temp 97.9 F (36.6 C) (Oral) Resp 16 Ht 1.854 m (6' 0.99 ) Wt 97 kg (213 lb 13.5 oz) SpO2 99% BMI 28.22 kg/m Temp (24hrs), Av.1 F (36.7 C), Min:97.9 F (36.6 C), Max:98.2 F (36.8 C) No results for input(s): POCGLU in the last 72 hours. No intake or output data in the 24 hours ending 03/03/25 1312 General Appearance: alert, well appearing, and in no acute distress, wheelchair-bound Mental status: oriented to person, place, and time with normal affect Head: normocephalic, atraumatic. Eye: no icterus, redness, pupils equal and reactive, extraocular eye movements intact, conjunctiva clear Ear: normal external ear, no discharge, hearing intact Nose: no drainage noted Mouth: mucous membranes moist Neck: supple, no carotid bruits, thyroid not palpable Lungs: Bilateral equal air entry, clear to ausculation, no wheezing, rales or rhonchi, normal effort Cardiovascular: normal rate, regular rhythm, no murmur, gallop, rub. Abdomen: Soft, nontender, nondistended, normal bowel sounds, no hepatomegaly or splenomegaly Neurologic: There are no new focal motor or sensory deficits, normal muscle tone and bulk, no abnormal sensation, normal speech, cranial nerves II through XII grossly intact Skin: No gross lesions, rashes, bruising or bleeding on exposed skin area Extremities: Postsurgical changes present left hip, mild edema in left leg Psych: Investigations: Laboratory Testing: No results found for this or any previous visit (from the past 24 hours). Consultations: IP CONSULT TO DIETITIAN IP CONSULT TO SOCIAL WORK IP CONSULT TO INTERNAL MEDICINE IP CONSULT TO NEPHROLOGY Assessment : Primary Problem Hip fracture, left, sequela Active Hospital Problems Diagnosis Date Noted S/P hip hemiarthroplasty [Z96.649] 03/01/2025 Closed fracture of left hip (HCC) [S72.002A] 03/01/2025 Hip fracture, left, sequela [S72.002S] 02/28/2025 Plan: Left hip fracture status post left hip hemiarthroplasty, on 02/25 Coronary artery disease status post CABG, on aspirin, not on statin, patient could not tell me whether he is allergic to statin or not, review of previous office visit notes, Lipitor is not mentionedin his home medication list, will discuss with close family, regarding previous documented statin allergies, patient, recently evaluated by loading unit operator, last LDL was 71 CHF, compensated Parkinson disease, follows closely with neurology as outpatient Dementia on Namenda Hypothyroidism on Synthroid and liothyronine , TSH tested recently is okay Chronic kidney disease, stable, was recently evaluated by table worker Starting patient on heparin 5000 every 8 for DVT prophylaxis Underwent CT of chest, 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 Although every effort was made to ensure the accuracy of this automated physical education professor, some errors in physical education professor may have occurred. * Abi Wu OTA - 03/02/2025 3:21 PM EDT [facility] Acute Rehabilitation Occupational Therapy Daily Treatment Note Date: 03/02/25 Patient Name: Leanna Nguyễn Room: 2619/2619-01 Account: [id number] : 1940 (84 y.o.) Gender: male Diagnosis: left femoral neck fracture following fall. L hip Hemiarthroplasty , parkinson's. Additional Pertinent Hx: Leanna Nguyễn is a 84 y.o. right-handed male admitted to the [facility] unit on 02/28/2025. He was originally admitted to [facility] on 02/25/2025 for left femoral neck fracture following fall. 84-year-old male with a history of Parkinson's, CHF, coronary artery disease, CABG, hyperlipidemia, hypertension, altered mental status, syncope and collapse, pulmonary fibrosis, CKD and dementia presenting with hip pain after fall. Patient is disoriented at baseline. Cardiology 02/26-aspirin resumed, torsemide held in setting of hypokalemia. Internal medicine-left femoral neck fracture status post left hip hemiarthroplasty 02/25 lives in assisted living Ortho-displaced femoral neck fracture status post left hip hemiarthroplasty on 02/25 Nephrology- patientnoted to have ANIYA on CKD postoperative, UA and renal ultrasound unremarkable. Improved with gentle rehydration. Palliative care brother has power of civil attorney no , no children parents are deceasedSteve is the only sibling and next of kin reports that his daughter Kimberly is secondary, brother feels he can make his own decision, currently full code Treatment Diagnosis: impaired self care status d/t L hip hemiarthroplasty Past Medical History: has no past medical history on file. Past Surgical History: has a past surgical history that includes hip surgery (Left, 02/25/2025). Restrictions Restrictions/Precautions Restrictions/Precautions: Bed Alarm, Weight Bearing, Fall Risk, Surgical Protocols (WBAT LLE, posterior hip precautions) Activity Level: Up as Tolerated, Up with Assist Required Braces or Orthoses?: No Implants Present? : Metal implants (L blanka arthroplasty) Position Activity Restriction Hip Precautions: Posterior hip precautions, No hip flexion > 90 degrees, No sudden or extreme motions, No hip internal rotation, No hip external rotation, No ADduction Other Position/Activity Restrictions: Procedure: HIP HEMIARTHROPLASTY (Left: Hip) 02.25.[address] Downing-posterior precautions. Pt has history of parkinson's. Lower Extremity Weight Bearing Restrictions Left Lower Extremity Weight Bearing: Weight Bearing As Tolerated Subjective Subjective Subjective: AM: Patient declined - Pt lying in bed upon assembly instructions writer arrival. Does not open eyes when prompted. Patrol Man offers OT with pt stating No, not today. I'm sick Patrol Man provides education on OT role and POC, asks if pt has any pain. Pt stiffens body and grunts in irritation. Continues to grunt in irritation when assembly instructions writer asks any other questions without opening eyes. Will check back this afternoon. PM: Pt up in chair, states: What do you want me to do , is agreeable to simple exercses this afternoon. Pain Assessment Pain Assessment: 0-10 (denies canales) Objective Cognition Overall Orientation Status: Within Functional Limits Cognition Overall Cognitive Status: Exceptions Arousal/Alertness: Appears intact Following Commands: Follows one step commands with repetition;Follows one step commands with increased time Attention Span: Attends with cues to redirect Memory: Decreased recall of recent events;Decreased recall of precautions;Decreased short term memory Safety Judgement: Decreased awareness of need for assistance;Decreased awareness of need for safety Problem Solving: Assistance required to generate solutions;Assistance required to identify errors made;Assistance required to correct errors made;Assistance required to implement solutions;Decreased awareness of errors Insights: Not aware of deficits Initiation: Requires cues for some Sequencing: Requires cues for some Activities of Daily Living Pt declines all ADLs this date. RN notified. Mobility Pt up in chair at beginning and end of afternoon session this date. OT Exercises Exercise Treatment: Pt up in chair this afternoon after refusing and agitation this AM. Wriuter facilitated pt in BIUE exercises for increased overall strength and to support safety and I with fiunctional transfers. Pt completes in all available planes of motion, X20 reps each. Reqiures visiual demo for all, RB taken between. Tolerates well with no c/o pain or discomfort. Assessment Assessment Activity Tolerance: Treatment limited secondary to agitation;Treatment limited secondary to decreased cognition Discharge Recommendations: Continue to assess pending progress Patient Education Education Education Given To: Patient Education Provided: Role of Therapy;Plan of Care;Home Exercise Program Education Method: Verbal;Demonstration Barriers to Learning: Cognition Education Outcome: Verbalized understanding;Continued education needed Safety Devices Safety Devices in place: Yes Type of devices: Left in chair;Call light within reach;Chair alarm in place Family education To be arranged Goals Patient Goals Patient goals : pt Short Term Goals Time Frame for Short Term Goals: 1 week Short Term Goal 1: indep feeding and grooming Short Term Goal 2: Pt will complete UB ADLs with set up A and Good cognition Short Term Goal 3: max x 1 toileting- LE bathe bottom and pants over hips assist stand with BUE support on lynette stedy or least restrictive device. Short Term Goal 4: concha 4-5 min static stand with BUE support with mod A of 1. Short Term Goal 5: Pt will participate in 30+ minutes of therapeutic exercises/functional activities to increase safety and independence with self care and mobility Additional Goals?: Yes Short Term Goal 6: concha 10 reps shld, elbow AROM with mod resistance on R and min on L for BUE strengthening for use during mobility for adls. Short Term Goal 7: able to tolerate safely performing adl transfers with max A x 2 and RW 50 % of the time during therapy. Group Home Goals Time Frame for Test Technician Goals : by discharge Test Technician Goal 1: mod x 1 LE bathe and dress (with cues, assist provided due to pt poor memory withL hip precautions. ) Group Home Goal 2: mod x 1 toileting and adl transfers Group Home Goal 3: concha 6-7 min stand, transfer, amb with BUE support on RW and mod A. Group Home Goal 4: concha 15 reps shld, elbow AROM with mod resistance on R and min on L for BUE strengthening for use during mobility for adls. Test Technician Goal 5: increase MMT B elbow to 4+/5, L shld to 4-/5 and R shld to 4/5 to demo improved BUE strengthening for use during mobility for adls. Plan Occupational Therapy Plan Times Per Week: 900 min of PT/OT/ST Times Per Day: Twice a day Current Treatment Recommendations: Strengthening, Balance training, Functional mobility training, Endurance training, Pain management, Safety education & training, Patient/Caregiver education & training, Equipment evaluation, education, & procurement, Positioning, Self-Care / ADL, Co-Treatment, Cognitive/Perceptual training, Wheelchair mobility training 03/02/25 1421 OT Individual Minutes Time In 1421 Time Out 1444 Minutes 23 Minute Variance Variance 67 Reason Refusal (pain and agitation) Variance identified in accordance with Occupational Therapy individualized plan of care for therapyminutes. Patient missing 67 minutes today, 03/02/25, due to refusal. Patient Education Required? Yes, patient educated on IRF level of care and participation in accordance with individualized plan of care, discussed barriers to participation and compensatory strategies to allow for increased participation to meet goals Nursing Notification Required? No, patient's therapy minute variance unrelated to medical condition. PM&R Physician Notification Required? No, this is patient's first therapy minute variance within given treatment week. Cosigned by Nasima Ponce OT at 03/03/2025 3:24 PM EDT * Saul Crouch MD - 03/02/2025 3:16 PM EDT NEPHROLOGY PROGRESS NOTE Patient : Leanna Nguyễn; 84 y.o. Location: 2619/2619-01 Attending: Juan Ramon Lucero MD Admit Date: 02/28/2025 Hospital Day: 2 Reason for Consult: ANIYA on CKD Chief Complaint: Fall History Obtained From: family member , electronic medical record Subjective Patient seen and examined, no new complains Sitting in recliner Labs tomorrow. No lbas today BP stable History of Present Illness: This is a 84 y.o. male Patient with past medical history of atherosclerotic coronary artery diseasestatus post CABG, history of hyperlipidemia, essential hypertension, hypothyroidism, Parkinson's disease dementia with baseline disorientation former smoker, history of pulmonary fibrosis mild bilateral cardiac carotid artery disease, CKD stage III. Patient presented to [facility] on 02/25/2025 with complaints of left hip pain after he recently sustained a fall, patient denies dizziness nausea vomiting chest pain X-ray showed displaced femoral neck fracture of left hip, patient underwent left hip hemiarthroplasty on 02/25/2025 Patient serum creatinine on admission 1 on 02/25/2025 noted with 2.8 mg/dL and therefore nephrology was consulted, during the hospital stay kidney function improved to 1.8 mg/dL on 02/27/2025, patient was discharged to acute rehab. Nephrology was consulted to follow for ANIYA on CKD. Patient seen and examined at acute rehab no acute events patient is tired and exhausted after the physical therapy laying comfortably not in acute distress Past Medical History: History reviewed. No pertinent past medical history. Past Surgical History: Procedure Laterality Date HIP SURGERY Left 02/25/2025 HIP HEMIARTHROPLASTY performed by Ana Downing MD at [facility] OR Current Medications: heparin (porcine) injection 5,000 Units, 3 times per day polyethylene glycol (GLYCOLAX) packet 17 g, Daily senna (SENOKOT) tablet 17.2 mg, Daily PRN bisacodyl (DULCOLAX) suppository 10 mg, Daily PRN acetaminophen (TYLENOL) tablet 650 mg, Q6H PRN aspirin EC tablet 81 mg, BID carbidopa-levodopa (SINEMET) 25-100 MG per tablet 1 tablet, TID levothyroxine (SYNTHROID) tablet 100 mcg, Daily liothyronine (CYTOMEL) tablet 5 mcg, Daily melatonin tablet 3 mg, Nightly PRN memantine (NAMENDA) tablet 10 mg, BID ondansetron (ZOFRAN-ODT) disintegrating tablet 4 mg, Q8H PRN oxyCODONE (ROXICODONE) immediate release tablet 5 mg, Q4H PRN Or oxyCODONE HCl (OXY-IR) immediate release tablet 10 mg, Q4H PRN sertraline (ZOLOFT) tablet 25 mg, Daily Allergies: Patient has no known allergies. Social History: Social History Socioeconomic History Marital status: Unknown Spouse name: Not on file Number of children: Not on file Years of education: Not on file Highest education level: Not on file Occupational History Not on file Tobacco Use Smoking status: Never Passive exposure: Never Smokeless tobacco: Never Substance and Sexual Activity Alcohol use: Not on file Drug use: Never Sexual activity: Not on file Other Topics Concern Not on file Social History Narrative Not on file Social Drivers of Health Financial Resource Strain: Not on file Food Insecurity: No Food Insecurity (02/28/2025) Hunger Vital Sign Worried About Running Out of Food in the Last Year: Never true Ran Out of Food in the Last Year: Never true Transportation Needs: No Transportation Needs (02/28/2025) PRAPARE - Transportation Lack of Transportation (Medical): No Lack of Transportation (Non-Medical): No Physical Activity: Not on file Stress: Not on file Social Connections: Not on file Intimate Partner Violence: Unknown (08/27/2023) Received from [facility] [place] Safety & Environment Fear of Current or Ex-Partner: Not on file Emotionally Abused: Not on file Physically Abused: Not on file Sexually Abused: Not on file Physically or Sexually Abused: Not on file Housing Stability: Low Risk (02/28/2025) Housing Stability Vital Sign Unable to Pay for Housing in the Last Year: No Number of Times Moved in the Last Year: 0 Homeless in the Last Year: No Family History: No family history on file. Review of Systems: Patient not responding to verbal stimuli is sleeping Objective: CURRENT TEMPERATURE: Temp: 97.9 F (36.6 C) MAXIMUM TEMPERATURE OVER 24HRS: Temp (24hrs), Av.9 F (36.6 C), Min:97.9 F (36.6 C), Max:97.9 F (36.6 C) CURRENT RESPIRATORY RATE: Respirations: 18 CURRENT PULSE: Pulse: (refuses) CURRENT BLOOD PRESSURE: BP: (refuses) 24HR BLOOD PRESSURE RANGE: Systolic (24hrs), Av , Min:112 , Max:112 ; Diastolic (24hrs), Av, Min:54, Max:54 24HR INTAKE/OUTPUT: No intake or output data in the 24 hours ending 03/02/25 1516 Patient Vitals for the past 96 hrs (Last 3 readings): Weight 02/28/25 1815 97 kg (213 lb 13.5 oz) 08/26/25 1545 97 kg (213 lb 13.5 oz) Physical Exam: GENERAL APPEARANCE: Comfortable not in acute distress HEAD: normocephalic NOSE: No nasal discharge. CARDIAC: Normal S1 and S2. No S3, S4 or murmurs. Rhythm is regular. LUNGS: Clear to auscultation without rales, rhonchi, wheezing or diminished breath sounds. NECK: Neck supple, trachea midline GI-soft nontender nondistended abdomen MUSKULOSKELETAL: Adequately aligned spine. No joint erythema or tenderness. EXTREMITIES: No edema. Peripheral pulses intact. NEURO: Nonfocal Labs: CBC: Recent Labs 03/01/25 0709 WBC 8.3 RBC 4.09* HGB 11.7* HCT 38.2* MCV 93.4 MCH 28.6 MCHC 30.6* RDW 13.9 PLT 168 MPV 9.3 BMP: Recent Labs 03/01/25 0709 NA 137 K 3.7 CL 102 CO2 26 BUN 43* CREATININE 1.7* GLUCOSE 104* CALCIUM 9.0 Phosphorus: No results for input(s): PHOS in the last 72 hours. Radiology: Reviewed as available. Assessment: Patient initially admitted with fall ,displaced femoral neck fracture of left hip, patient underwent left hip hemiarthroplasty on 02/25/2025 Acute kidney injury on CKD most likely secondary to prerenal azotemia serum creatinine peaked to 2.8 mg/dL on 02/25/2025 serum creatinine improved to 1.8 mg/dL most recent serum creatinine is 1.7 mg/dL. Baseline serum creatinine is around 2.1 mg/dL noted in 2022 CKD stage IIIb with baseline creatinine of 2.1 mg/dL 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 History of essential hypertension Plan: Kidney function near baseline Torsemide on hold due to episode of acute kidney injury, patient is well compensated no signs of fluid retention, continue to monitor volume status and resume torsemide if patient develops fluid retention Continue current treatment Avoid NSAIDs Avoid nephrotoxic agents Strict I's and O's Daily weight Kidney function was stable and near baseline will follow on as-needed basis Thank you for the consultation. * Lenore Vivas ULTRA SOUND TECHNICIAN - 03/02/2025 2:29 PM EDT Speech Language Pathology [facility] Cognitive Treatment Note Date: 03/02/2025 Patient s Name: Leanna Nguyễn Diagnosis: Patient Active Problem List Diagnosis Code Left displaced femoral neck fracture ([facility]) S72.002A Fall W19.XXXA ANIYA (acute kidney injury) N17.9 Parkinson's disease ([facility]) G20.A1 Coronary artery disease involving [place] coronary artery of [place] heart without angina pectoris I25.10 Hip fracture, left, sequela S72.002S S/P hip hemiarthroplasty Z96.649 Closed fracture of left hip ([facility]) S72.002A Pain Rating: Pt. Groaning out in pain but would not state pain location/give pain rating. Cognitive Treatment Treatment time: ULTRA SOUND TECHNICIAN Individual Minutes Time In: 1315 Time Out: 1345 Minutes: 30 Subjective: [x] Alert [x] Cooperative [] Confused [] Agitated [] Lethargic Objective/Assessment: Attention: Pt. Very externally distracted. Attempted to minimize distractions (pt. Often looking out into hallway/distracted by noise at the nurses station) however pt. Would not allow ST to shut door. Pt. Required frequent repetition of stimuli/repeated directions. Recall: Not directly targeted. Pt. Did recall telling ST joke yesterday 03/01. Problem Solving/Reasoning: ID problem in pictures: 08/14 increased to 03/14 given MAX cues. Other: Pt. In recliner with chair alarm in use. Call light left within reach. Plan: [x] Continue ST services [] Discharge from ST: Discharge recommendations: [x] Further therapy recommended at discharge. [] No therapy recommended at discharge. Treatment completed by: Lenore Vivas M.S. [facility]-ULTRA SOUND TECHNICIAN * Babita Martinez PTA - 03/02/2025 2:01 PM EDT Physical Therapy [facility] Physical Therapy Treatment Date: 03/02/25 Patient Name: Leanna Nguyễn Room: 2619/2619-01 Account: [id number] : 1940 (84 y.o.) Gender: male Additional Pertinent Hx: HISTORY OF PRESENT ILLNESS: This is an 84-year-old gentleman with history of atherosclerotic CAD s/p CABG, dyslipidemia, essential hypertension, hypothyroidism, Parkinson's disease, dementia with baseline disorientation, former smoker, pulmonary fibrosis, mild bilateral carotid artery disease, chronic kidney disease, chronic lower extremity edema, migraine headache and generalized osteoarthritis presented to the emergency room with complaints of left hip pain after he sustained a mechanical fall. Patient was sitting on the toilet, reached over and fell on the floor. He denies any loss of consciousness, dizziness or lightheadedness. Imaging shows displaced left femoral neck fracture, Dr Downing perform L Hip Hemiarthroplasty on 02/25/25. Pt allowed WBAT L LE for mobility. Response To Previous Treatment: Patient with no complaints from previous session. Family/Caregiver Present: No Referring Practitioner: Dr. Betancourt Referral Date : 02/28/25 Diagnosis: Left femoral neck fracture, S/P Left Hip hemiarthroplasty Follows Commands: Within Functional Limits Treatment Diagnosis: Difficulty walking Past Medical History: has no past medical history on file. Past Surgical History: has a past surgical history that includes hip surgery (Left, 02/25/2025). Restrictions Restrictions/Precautions Restrictions/Precautions: Bed Alarm, Weight Bearing, Fall Risk, Surgical Protocols (WBAT LLE, posterior hip precautions) Required Braces or Orthoses?: No Implants Present? : Metal implants (L blanka arthroplasty) Lower Extremity Weight Bearing Restrictions Left Lower Extremity Weight Bearing: Weight Bearing As Tolerated Position Activity Restriction Hip Precautions: Posterior hip precautions, No hip flexion > 90 degrees, No sudden or extreme motions, No hip internal rotation, No hip external rotation, No ADduction Other Position/Activity Restrictions: Procedure: HIP HEMIARTHROPLASTY (Left: Hip) 02.25.[address] Downing-posterior precautions. Pt has history of parkinson's. Subjective Subjective Subjective: AM: Pt lying in bed upon arrival. Pt plesant and agreeable to therapy initially. Pt stating he had no pain when asked. Patrol Man started to don compression stocking on R LE. Pt starts to scream out in pain. When assembly instructions writer asked pt what was wrong, pt yelled have you ever had your hip replaced?! Patrol Man stated pt had L hip replacement and assembly instructions writer was donning R compression stocking to whic pt yelled everything hurts ! Pt continues to scream out in pain while assembly instructions writer jamey donning B compression stockings. RN came into room to offer pain medication to assembly instructions writer. Pt stating its not going to help, just get me a coffin and refuses to take medications. Patrol Man tries to encourage pt to get outof bed and pt proceeded to close his eyes and no longer verbally respond to assembly instructions writer. Patrol Man ended tx. PM: Patrol Man eneters room and pt is lying in bed. Pt agreeable to therapy. Patrol Man and aide assisted pt to sitting EOB, pt screaming out throughout transfer. Patrol Man donned pts pants once sitting EOB while pt calmed down. When assembly instructions writer placed lynette stedy in front of pt, pt started to scream again. Jeremy aide assisted pt in transfer with lynette stedy. Pt screaming throughout entire transfer into recliner. Pt left in recliner with maxi sling placed behind pt. Speech therapy arrived and care was transferred to speech therapist. Pain Pre-Pain: (does not give number however screams out in pain and crying throughout) Bed Mobility Bed mobility Supine to Sit: Substantial/Maximal assistance;2 Person assistance Scooting: Substantial/Maximal assistance;2 Person assistance Bed Mobility Comments: max time req, cuing with poor return, use of bed pad req to progress hips forward Transfers Transfers Sit to Stand: Substantial/Maximal assistance;2 Person Assistance Stand to Sit: Substantial/Maximal assistance;2 Person Assistance Bed to Chair: Dependent/Total (lynette stedy) PT Exercises Exercises completed: Exercise 1: bed mobility x1 in PM Exercise 2: seated EOB ~5 minutes Max A x1- posterior lean Exercise 3: STS x1 from bed with lynette stedy with Max A x2 Exercise 4: STS x1 from paddles of SS with Max A x3 Exercise 5: standing tolerance ~30 sec x2 Activity Tolerance Activity Tolerance Activity Tolerance: Treatment limited secondary to decreased cognition;Patient limited by pain;Patient limited by endurance;Treatment limited secondary to agitation Assessment Performance Deficits/Impairments: Decreased functional mobility , Decreased ROM, Decreased strength, Decreased safe awareness, Decreased cognition, Decreased endurance, Decreased vision/visual deficit, Increased pain, Decreased posture History: Hx of Parkinsons, dementia and heart failure. Discharge Recommendations: Home with assist PRN, Home with Home health PT Equipment PT D/C Equipment Equipment Needed: (continue to assess- pt has rolling walker) Education Restraints Restraints Initially in Place: No Goals Patient Goals Patient Goals : To work on standing up straight, to go back to [facility] Short Term Goals Time Frame for Short Term Goals: 10 visits Short Term Goal 1: Pt to complete supine<>sit at min A with HOB flat, use of rail Short Term Goal 2: Pt to complete sit to stand transfers with min assist, stand pivot transfers using RW with min assist Short Term Goal 3: Pt to ambulate with RW for 25 feet min assist Short Term Goal 4: Pt to improve standing balance to F+/F to reduce fall risk Short Term Goal 5: Pt to improve left hip strength to 3+/5, and knee strength to 4/5 to facilitate increased independence with gait, transfers Additional Goals?: Yes Short Term Goal 6: Pt to demonstrate posterior hip precautions with mod cueing during transfers andbed mobility Short Term Goal 7: Pt to propel wheelchair for 50 feet using UEs and LEs as able with SBA Short Term Goal 8: Pt to participate in TUG test if able using RW Test Technician Goals Time Frame for Group Home Goals : By d/c Group Home Goal 1: Pt to complete bed mobility sup<>sit with SBA using rail prn Group Home Goal 2: Pt to complete sit to stand, stand pivot and car transfers with RW SBA Group Home Goal 3: Pt to ambulate with RW for 50 feet or > SBA with cues for safety/posture Group Home Goal 4: Pt to picking supervisor object from floor using banquet houseperson and UE support on RW with SBA Test Technician Goal 5: Pt to improve balance and safety with ambulation as evidence by ability to complete TUG test in 30 seconds or less using RW intermediate goal 6: Pt to complete LE supine and seated ther ex for strengthening with min assist using handout Plan of Care Physical Therapy Plan General Plan: (900 minutes per week of combined PT, OT, ST due to poor tolerance to activity 2* high levels of pain and cognitive deficits) Current Treatment Recommendations: Strengthening, ROM, Balance training, Functional mobility training, Transfer training, Gait training, Stair training, Neuromuscular re-education, Pain management, Home exercise program, Safety education & training, Patient/Caregiver education & training, Equipment evaluation, education, & procurement, Therapeutic activities, Wheelchair mobility training Safety Devices Type of Devices: Left in chair, Call light within reach, Chair alarm in place, Gait belt, Patient at risk for falls, All fall risk precautions in place PT Minutes 03/02/25 1300 03/02/25 1400 Time Code Minutes Timed Code Treatment Minutes -- 0 Minutes PT Individual Minutes Time In 1248 0801 Time Out 1316 0824 Minutes 28 23 Minute Variance Variance -- 62 Reason -- Refusal (refusal d/t pts high level of pain and refusing to engage with assembly instructions writer) Cosigned by Pat Moran, PT at 03/02/2025 2:51 PM EDT * Nasima Ponce OT - 03/02/2025 2:01 PM EDT Occupational Therapy Plan Of Care: Due to impaired functional endurance and/or medical issues, the patient is to be seenfor a combined total of at least a 900 minutes over 7 days of Physical, Occupational and/or Speech Therapy. 03/02/25 1400 Occupational Therapy Plan Times Per Week 900 min of PT/OT/ST * Pat Moran PT - 03/02/2025 1:54 PM EDT Physical Therapy [facility] Date: 03/02/25 Patient Name: Leanna Nguyễn Room: 2619/2619-01 Account: [id number] : 1940 (84 y.o.) Gender: male Patient Height Height: 185.4 cm (6' 0.99 ) Patient Weight 97 kg (213 lb 13.5 oz) Plan Of Care: Due to impaired activity tolerance and/or medical issues, the patient is to be seen for a combined total of at least a 900 minutes over 7 days of Physical, Occupational and/or Speech Therapy rehab 03/02/25 1300 Physical Therapy Plan General Plan Other (See Comment) (900 minutes per week of combined PT, OT, ST due to poor tolerance to activity 2* high levels of pain and cognitive deficits) * Lenore Vivas, ULTRA SOUND TECHNICIAN - 03/02/2025 11:10 AM EDT Speech Language Pathology [facility] Cognitive Treatment Note Date: 03/02/2025 Patient s Name: Leanna Nguyễn Diagnosis: Patient Active Problem List Diagnosis Code Left displaced femoral neck fracture ([facility]) S72.002A Fall W19.XXXA ANIYA (acute kidney injury) N17.9 Parkinson's disease ([facility]) G20.A1 Coronary artery disease involving [place] coronary artery of [place] heart without angina pectoris I25.10 Hip fracture, left, sequela S72.002S S/P hip hemiarthroplasty Z96.649 Closed fracture of left hip ([facility]) S72.002A Pain Rating: Pt. Groaning out in pain but would not state pain location/give pain rating. Cognitive Treatment Treatment time: ULTRA SOUND TECHNICIAN Individual Minutes Time In: 1028 Time Out: 1040 Minutes: 12 Subjective: [x] Alert [] Cooperative [] Confused [x] Agitated [] Lethargic Objective/Assessment: RN present upon arrival but left shortly after. Patrol Man introduced self/role and stated that I worked with him yesterday. Pt. Stated how was it? . Patrol Man updated pt. Re: performance on yesterday's tasks. Attempted picture problem solving task with pt. Keeping eyes closed and stating I can't open my eyes . Attempted situational problem solving task with pt. Giving no response. Pt. Groaning out inpain t/o session, offered repositioning with pt. Declining. Pt. Began refusing to answering questions and session was discontinued at that point. Extensive verbal education provided re: rationale fortherapy/tx plan with pt. Giving no verbal response. Plan: [x] Continue ST services [] Discharge from ST: Discharge recommendations: [] Further therapy recommended at discharge. [] No therapy recommended at discharge. Treatment completed by: Lenore Vivas M.S. [facility]-ULTRA SOUND TECHNICIAN * Juan Ramon Lucero MD - 03/02/2025 9:14 AM EDT Physical Medicine & Rehabilitation Progress Note Subjective: The patient is a 84 y.o. year old with ADL and Mobility deficits secondary to left hip fracture Patient reportedly had some agitation overnight, concern for sundowning. This morning he was groaning and crying out in pain, refusing medications, refusing vitals check, refusing to work with therapy. On evaluation would not verbalize or indicate location of pain or offer rating. Eventually patient was able to confirm that his left hip was hurting him, though would not offer rating. After explaining to patient the importance of taking his medications, he was eventually agreeable. Patient did agree that his ultimate goal is to get back home, had lengthy discussion with patient that the goal of acute rehab ROS: Denies fevers, chills, sweats. No chest pain, palpitations, lightheadedness. Denies coughing, wheezing or shortness of breath. Denies abdominal pain, nausea, diarrhea or constipation. No new areas of joint pain. Denies new areas of numbness or weakness. Denies new anxiety or depression issues. No new skin problems. Rehabilitation: PT: Bed mobility Rolling to Left: Substantial/Maximal assistance, 2 Person assistance Rolling to Right: Minimal assistance Supine to Sit: 2 Person assistance, Substantial/Maximal assistance Sit to Supine: Substantial/Maximal assistance, 2 Person assistance Scooting: Dependent/Total, 2 Person assistance (to EOB) Bed Mobility Comments: max time req, cuing with poor return, use of bed pad req to progress hips forward Transfers Sit to Stand: Substantial/Maximal assistance, 2 Person Assistance Stand to Sit: Substantial/Maximal assistance, 2 Person Assistance Bed to Chair: Dependent/Total (omar stedy) Comment: Pt demonstrates forward flexed posture in lynettewillian hernandezdy with downward gaze, hips weight shifted to right on paddles Ambulation WB Status: WBAT L LE Ambulation Surface: Level tile Device: Parallel Bars Other Apparatus: Wheelchair follow Quality of Gait: Stooped posture, knee flexion in stance phase, difficulty with weight acceptance to LLE, short step length bilateral Gait Deviations: Decreased step length, Decreased step height, Shuffles, Slow Wendy Distance: 5 feet x 2 Comments: Pt required cues for upright posture, flexed knee correction, and advancing hands first OT: Feeding: Setup Grooming: Supervision Grooming Skilled Clinical Factors: brush teeth, wash face seated in w/c up to sink. UE Bathing: Supervision UE Bathing Skilled Clinical Factors: seated in w/c up to sink. LE Bathing: Dependent/Total LE Bathing Skilled Clinical Factors: TA x 2 to stand with RW and wash ronit, bottom. seated- pt ableto wash thighs with set up, TA distally. ed pt how far he is allowed to bend to wash LE. pt had difficulty understanding and following this so OT had him hand her the washcloth to provide assist to wash distal LE to keep L hip precautions. UE Dressing: Minimal assistance UE Dressing Skilled Clinical Factors: t shirt. assist needed to pull down shirt in back- did not respond to cues. LE Dressing: Dependent/Total LE Dressing Skilled Clinical Factors: TA don pants over feet, TA x 2 to don pullups, pants over hips stand with lynette mauricio. Putting On/Taking Off Footwear: Dependent/Total Putting On/Taking Off Footwear Skilled Clinical Factors: TA don teds and slipper socks. Toileting: Dependent/Total Toileting Skilled Clinical Factors: TA x 2 stand with RW. Toilet Transfers Equipment Used: Grab bars Toilet Transfer: 2 Person assistance, Dependent/Total Toilet Transfers Comments: max x 2 stand pivot transfer with RW w/c to toilet with grab bars, TA x 2 stand for toileting with RW, then TA x 2 stand with lynette mauricio for transfer off toilet to w/c, then BSC obtained for over the toilet, due to pt max fatigued with mobility and higher surface will be helpful. plan communicated to nsg is lynette Dorsey x 2. SPEECH: Cognitive Treatment Treatment time: ULTRA SOUND TECHNICIAN Individual Minutes Time In: 1028 Time Out: 1040 Minutes: 12 Subjective: [x] Alert [] Cooperative [] Confused [x] Agitated [] Lethargic Objective/Assessment: RN present upon arrival but left shortly after. Patrol Man introduced self/role and stated that I worked with him yesterday. Pt. Stated how was it? . Patrol Man updated pt. Re: performance on yesterday's tasks. Attempted picture problem solving task with pt. Keeping eyes closed and stating I can't open my eyes . Attempted situational problem solving task with pt. Giving no response. Pt. Groaning out inpain t/o session, offered repositioning with pt. Declining. Pt. Began refusing to answering questions and session was discontinued at that point. Extensive verbal education provided re: rationale fortherapy/tx plan with pt. Giving no verbal response. Plan: [x] Continue ST services [] Discharge from ST: Discharge recommendations: [] Further therapy recommended at discharge. [] No therapy recommended at discharge. Objective: BP (!) 112/54 Pulse 71 Temp 97.9 F (36.6 C) (Oral) Resp 18 Ht 1.854 m (6' 0.99 ) Wt 97 kg(213 lb 13.5 oz) SpO2 98% BMI 28.22 kg/m GEN: well developed, well nourished, NAD HEENT: NCAT, PERRL, EOMI, mucous membranes pink and moist CV: RRR, no murmurs, rubs or gallops PULM: Respirations WNL and unlabored ABD: soft, non-tender, non-distended. No peritoneal signs. NEURO: Awake, intermittently answering questions. Sensation intact to light touch. MSK: Functional ROM impaired. Strength 5/5 throughout both arms. Strength 5/5 distal lower extremity; able to straight leg raise on right, deferred on left. EXTREMITIES: No calf tenderness to palpation bilaterally. No edema BLEs SKIN: warm dry and intact with good turgor PSYCH: appropriately interactive. Affect WNL. Diagnostics: CBC: Recent Labs 03/01/25 0709 WBC 8.3 RBC 4.09* HGB 11.7* HCT 38.2* MCV 93.4 RDW 13.9 PLT 168 BMP: Recent Labs 03/01/25 0709 NA 137 K 3.7 CL 102 CO2 26 BUN 43* CREATININE 1.7* GLUCOSE 104* BNP: No results for input(s): BNP in the last 72 hours. PT/INR: No results for input(s): PROTIME , INR in the last 72 hours. APTT: No results for input(s): APTT in the last 72 hours. CARDIAC ENZYMES: No results for input(s): CKMB , CKMBINDEX , TROPONINT in the last 72 hours. Invalid input(s): CKTOTAL;3 troponins FASTING LIPID PANEL: Lab Results Component Value Date CHOL 135 02/25/2025 HDL 53 02/25/2025 TRIG 57 02/25/2025 LIVER PROFILE: Recent Labs 03/01/25 0709 AST 23 ALT <5* BILIDIR 0.2 BILITOT 0.6 ALKPHOS 77 Current Medications: Current Facility-Administered Medications: heparin (porcine) injection 5,000 Units, 5,000 Units, SubCUTAneous, 3 times per day polyethylene glycol (GLYCOLAX) packet 17 g, 17 g, Oral, Daily senna (SENOKOT) tablet 17.2 mg, 2 tablet, Oral, Daily PRN bisacodyl (DULCOLAX) suppository 10 mg, 10 mg, Rectal, Daily PRN acetaminophen (TYLENOL) tablet 650 mg, 650 mg, Oral, Q6H PRN OR [DISCONTINUED] acetaminophen (TYLENOL) suppository 650 mg, 650 mg, Rectal, Q6H PRN aspirin EC tablet 81 mg, 81 mg, Oral, BID carbidopa-levodopa (SINEMET) 25-100 MG per tablet 1 tablet, 1 tablet, Oral, TID levothyroxine (SYNTHROID) tablet 100 mcg, 100 mcg, Oral, Daily liothyronine (CYTOMEL) tablet 5 mcg, 5 mcg, Oral, Daily melatonin tablet 3 mg, 3 mg, Oral, Nightly PRN memantine (NAMENDA) tablet 10 mg, 10 mg, Oral, BID ondansetron (ZOFRAN-ODT) disintegrating tablet 4 mg, 4 mg, Oral, Q8H PRN OR [DISCONTINUED] ondansetron (ZOFRAN) injection 4 mg, 4 mg, IntraVENous, Q6H PRN oxyCODONE (ROXICODONE) immediate release tablet 5 mg, 5 mg, Oral, Q4H PRN OR oxyCODONE HCl (OXY-IR) immediate release tablet 10 mg, 10 mg, Oral, Q4H PRN sertraline (ZOLOFT) tablet 25 mg, 25 mg, Oral, Daily Impression/Plan: Impaired ADLs, gait, and mobility due to: Left femoral neck fracture secondary to fall s/p left hip hemiarthroplasty: surgery 02/[address] Downing. PT/OT for gait, mobility, strengthening, endurance, ADLs, and self care - 900 minute plan. Pain control with PRN Tylenol, PRN Oxycodone. Parkinson's Disease: on sinemet Dementia: on Namenda. Hypertension: well controlled since Norvasc was discontinued. Hyperlipidemia: lipid panel reviewed by Cardiology in acute care, monitoring off of cholesterol medications. Coronary artery disease: CABG in 2010. On Aspirin CHF: Torsemide held in setting of hypokalemia, not continued at discharge from acute care. Compensated. Pulmonary fibrosis ANIYA on CKD stage IIIb: baseline Cr ~2.1, improved to 1.7. Nephrology consulted. Continue to monitorwith periodic labs. Hypothyroidism: on synthroid, on liothyronine. TSH 1.91 02/25. Depression: on Zoloft Bowel Management: Miralax daily, senokot prn, dulcolax prn. DVT Prophylaxis: SCD's while in bed, RIDDHI's during the day, and ASA 81 mg BID per Ortho protocol Internal Medicine for medical management Follow up: PCP 1-2 weeks, Orthopedic Surgery This note is created with the assistance of a speech recognition program. While intending to generate a document that actually reflects the content of the visit, the document can still have some errors including those of syntax and sound a like substitutions which may escape proof reading. In such instances, actual meaning can be extrapolated by contextual diversion. * Marylu Escamilla RN - 03/02/2025 9:03 AM EDT Pt crying out in pain when attempting to do any type of movement. Pt refuses pain medications and all medications. Pt confused and short with staff. * Marylu Escamilla RN - 03/02/2025 8:07 AM EDT Pt refuses vital signs, became agitated when attempting to take BP and said leave me alone when I'm eating breakfast. Refusing any care and medications at this time. * Sully Roman OT - 03/01/2025 3:59 PM EDT [facility] Acute Rehabilitation Occupational Therapy Evaluation Date: 03/01/25 Patient Name: Leanna Nguyễn Room: 2619/2619-01 Account: [id number] : 1940 (84 y.o.) Gender: male Diagnosis: left femoral neck fracture following fall. L hip Hemiarthroplasty , parkinson's. Additional Pertinent Hx: Leanna Nguyễn is a 84 y.o. right-handed male admitted to the [facility] unit on 02/28/2025. He was originally admitted to [facility] on 02/25/2025 for left femoral neck fracture following fall. 84-year-old male with a history of Parkinson's, CHF, coronary artery disease, CABG, hyperlipidemia, hypertension, altered mental status, syncope and collapse, pulmonary fibrosis, CKD and dementia presenting with hip pain after fall. Patient is disoriented at baseline. Cardiology 02/26-aspirin resumed, torsemide held in setting of hypokalemia. Internal medicine-left femoral neck fracture status post left hip hemiarthroplasty 02/25 lives in assisted living Ortho-displaced femoral neck fracture status post left hip hemiarthroplasty on 02/25 Nephrology- patientnoted to have ANIYA on CKD postoperative, UA and renal ultrasound unremarkable. Improved with gentle rehydration. Palliative care brother has power of civil attorney no , no children parents are deceasedStevnanette is the only sibling and next of kin reports that his daughter Kimberly is secondary, brother feels he can make his own decision, currently full code Treatment Diagnosis: impaired self care status d/t L hip hemiarthroplasty Past Medical History: has no past medical history on file. Past Surgical History: has a past surgical history that includes hip surgery (Left, 02/25/2025). Restrictions Lower Extremity Weight Bearing Restrictions Left Lower Extremity Weight Bearing: Weight Bearing As Tolerated Restrictions/Precautions: Bed Alarm, Weight Bearing, Fall Risk, Surgical Protocols (WBAT LLE, posterior hip precautions) Required Braces or Orthoses?: No Implants Present? : Metal implants (L blanka arthroplasty) Position Activity Restriction Hip Precautions: Posterior hip precautions, No hip flexion > 90 degrees, No sudden or extreme motions, No hip internal rotation, No hip external rotation, No ADduction Other Position/Activity Restrictions: Procedure: HIP HEMIARTHROPLASTY (Left: Hip) 02.25.[address] Downing-posterior precautions. Pt has history of parkinson's. Subjective Subjective: I have to be. pt answers to ? Are you ok? pt did not complain of pain or agree he is having pain when asked but during mobility facial expressions demo discomfort. Comments: riddhi matta and Uri mediplex boots were obtained for use when in bed. Social/Functional History Social/Functional History Lives With: Alone (assisted living apartment) Type of Home: Assisted living ([place]) Home Layout: One level Home Access: Level entry Bathroom Shower/Tub: Walk-in shower, Shower chair without back Bathroom Toilet: Standard Bathroom Equipment: Grab bars in shower, Shower chair, Grab bars around toilet Bathroom Accessibility: Walker accessible Home Equipment: Walker - Rolling, Alert button Has the patient had two or more falls in the past year or any fall with injury in the past year?: Yes (fell while seated on toilet and reaching for a towel) Receives Help From: Other (Comment) (assisted living staff) Prior Level of Assist for ADLs: Independent Prior Level of Assist for Homemaking: Needs assistance Homemaking Responsibilities: No Prior Level of Assist for Ambulation: Independent household ambulator, with or without device (without AD) Prior Level of Assist for Transfers: Independent Patient's Juice Standardizer Info: Krunal Sky Occupation: Retired Leisure & Hobbies: Pt reports that he participates in all activities offered Additional Comments: sleeps in flat bed, exits to the right Objective Vision Vision: Within Functional Limits (pt does not wear glasses) Hearing Hearing: Impaired Hearing Exceptions: Hard of hearing/hearing concerns Cognition Orientation Level: (when asked where he is injured, he points to his foot. able to state month and year accruately and spell his last name. able to state he is here for rehab and this is [facility].) Cognition Overall Cognitive Status: Exceptions Arousal/Alertness: Appears intact Following Commands: Follows one step commands with repetition, Follows one step commands with increased time Attention Span: Attends with cues to redirect Memory: Decreased recall of recent events, Decreased recall of precautions, Decreased short term memory Safety Judgement: Decreased awareness of need for assistance, Decreased awareness of need for safety Problem Solving: Assistance required to generate solutions, Assistance required to identify errors made, Assistance required to correct errors made, Assistance required to implement solutions, Decreased awareness of errors Insights: Not aware of deficits Initiation: Requires cues for some Sequencing: Requires cues for some Cognition Comment: ed pt how far he is allowed to bend to wash LE. pt had difficulty understanding and following this so OT had him hand her the washcloth to provide assist to wash distal LE to keep L hip precautions. pt did not understan medial precautions and wanted to show OT he could reach lower. he did not understand ed so distraction- refocus technique was used. pt attempted to read clock but was not accurate. at 9:10, he states It is around 10:00. 05/20 BIMS. initially pt initiated tooth brushing appropriately with placing toothpaste on brush then demo poor problem solving/ awarenesswhen brushing teeth, needed max cues to rinse mouth then did not lean forward to spit into sink butreleased it on his clothes and showed no awareness of error. pt perseverates during washing ie. washed face thru set of motions x 3 until interrupted, then 4 min later when told to wash chest and arms- he began washing face again. demo poor memory of having already washed face. Activities of Daily Living Feeding: Setup Grooming: Supervision Grooming Skilled Clinical Factors: brush teeth, wash face seated in w/c up to sink. UE Bathing: Supervision UE Bathing Skilled Clinical Factors: seated in w/c up to sink. LE Bathing: Dependent/Total LE Bathing Skilled Clinical Factors: TA x 2 to stand with RW and wash ronit, bottom. seated- pt ableto wash thighs with set up, TA distally. ed pt how far he is allowed to bend to wash LE. pt had difficulty understanding and following this so OT had him hand her the washcloth to provide assist to wash distal LE to keep L hip precautions. UE Dressing: Minimal assistance UE Dressing Skilled Clinical Factors: t shirt. assist needed to pull down shirt in back- did not respond to cues. LE Dressing: Dependent/Total LE Dressing Skilled Clinical Factors: TA don pants over feet, TA x 2 to don pullups, pants over hips stand with lynette mauricio. Putting On/Taking Off Footwear: Dependent/Total Putting On/Taking Off Footwear Skilled Clinical Factors: TA don teds and slipper socks. Toileting: Dependent/Total Toileting Skilled Clinical Factors: TA x 2 stand with RW. OT scores Eating Assistance Needed: Setup or clean-up assistance CARE Score: 5 Discharge Goal: Independent Oral Hygiene Assistance Needed: Supervision or touching assistance CARE Score: 4 Discharge Goal: Independent Toileting Hygiene Assistance needed: Dependent CARE Score: 1 Discharge Goal: Partial/moderate assistance Shower/Bathe Self Assistance Needed: Dependent CARE Score: 1 Discharge Goal: Partial/moderate assistance Upper Body Dressing Assistance Needed: Partial/moderate assistance CARE Score: 3 Discharge Goal: Set-up or clean-up assistance Lower Body Dressing Assistance Needed: Dependent CARE Score: 1 Discharge Goal: Partial/moderate assistance Putting On/Taking Off Footwear Assistance Needed: Dependent CARE Score: 1 Discharge Goal: Partial/moderate assistance Toilet Transfer Assistance needed: Dependent CARE Score: 1 Discharge Goal: Partial/moderate assistance Occupational therapy includes sexuality, sexual activity, and relationship roles into activities ofdaily living. The following questions were included in the prior level of function section of the Occupational therapy evaluation to address intimacy and relationship roles: Is it important is it for you to participate in intimacy? No Are you distressed or concerned about your future intimacy/ relationship roles with your partner? N/A Are you comfortable discussing your intimacy concerns with your partner? N/A Would you like to address intimacy and relationship roles in your plan of care? No UE Function Left Hand Strength - Contour Stitcher (lbs) Handle Setting 3: 50, 48- avg 49 lbs Right Hand Strength - Contour Stitcher (lbs) Handle Setting 3: 53, 57, avg 55. Gross Assessment AROM: Generally decreased, functional (LUE A and P 110 and R 120.) PROM: Generally decreased, functional (MMT B elbows 4/5, R shld 4-/5, L 3+/5.) Strength: Generally decreased, functional Coordination: Generally decreased, functional Tone: Normal Sensation: Intact (per pt report B hands and BLE intact sensation) Fine Motor Skills/Coordination Hand Dominance Hand Dominance: Right Fine Motor Skills Left 9 Hole Peg Test Time (secs): 46.03 Right 9 Hole Peg Test Time (secs): 47.9 Mobility Time: concha 1-3 minutes x Balance Balance Sitting Balance: Supervision (seated on toilet (before BSC was added) good static sit balance.) Standing Balance: Dependent/Total Standing Balance Time: concha 1-3 minutes x Activity: TA - max x 2 static stand with RW with BUE support- concha 3 min x 2. other stands were withsara stedy and varied from mod of 2 to max of 2. Comment: forward head and trunk posture Transfers Transfers Stand Pivot Transfers: Dependent/Total, 2 Person assistance (with RW- made it safely from w/c to toilet but then pt too fatigued to continue, so lynette stedy was used for the following 2 transfers- to w/c then to recliner.) Sit to stand: Dependent/Total, 2 Person assistance Stand to sit: Maximum assistance, 2 Person assistance Toilet Transfers Equipment Used: Grab bars Toilet Transfer: 2 Person assistance, Dependent/Total Toilet Transfers Comments: max x 2 stand pivot transfer with RW w/c to toilet with grab bars, TA x 2 stand for toileting with RW, then TA x 2 stand with lynette stedy for transfer off toilet to w/c, then BSC obtained for over the toilet, due to pt max fatigued with mobility and higher surface will be helpful. plan communicated to [facility] [place] lynette mauricio A x 2. OT Exercises Functional Mobility Circuit Training: max x 2 stand pivot transfer with RW w/c to toilet with grab bars, TA x 2 stand for toileting with RW, then TA x 2 stand with lynette stedy for transfer off toilet to w/c, and lynette stedy A x 2 transfer w/c to recliner. Disease-specific Exercises: pt was able to lift RLE to place on lynette stedy platform without assist when he understood the task but needs assist to lift LLE. Functional mobility Functional Mobility Functional - Mobility Device: Wheelchair Assist Level: Dependent/Total Assessment Activity Tolerance Activity Tolerance: Patient limited by fatigue, Patient limited by pain Assessment Performance deficits / Impairments: Decreased functional mobility , Decreased ADL status, Decreasedstrength, Decreased endurance, Decreased cognition, Decreased balance, Decreased posture, Decreasedsafe awareness Treatment Diagnosis: impaired self care status d/t L hip hemiarthroplasty Prognosis: Good Decision Making: Medium Complexity History: left femoral neck fracture following fall. L hip Hemiarthroplasty 02-25, parkinson's. Exam: 8 performance deficits Assistance / Modification: mod Patient Education Education Education Given To: Patient Education Provided: Role of Therapy, Precautions, Safety, Mobility Training, Transfer Training, Equipment, ADL Function Education Provided Comments: ed pt re role of OT, use of lynette stedy for adl transfers. ed pt how far he is allowed to bend to wash LE. pt had difficulty understanding and following this so OT had himhand her the washcloth to provide assist to wash distal LE to keep L hip precautions. Education Method: Demonstration, Verbal Barriers to Learning: Cognition Education Outcome: Continued education needed OT Equipment Recommendations Other: TBD - uncertain if pt can return to assisted living setting- he had walk in shower with seatand grab bars for shower and toilet. he has call alert. Safety Devices Type of Devices: Left in chair, Call light within reach, Chair alarm in place, Gait belt, Patient at risk for falls, All fall risk precautions in place (pt in recliner with B feet elevated and call light at his side and pressure alarm on seat and ST, Bela at his side.) Restraints Restraints Initially in Place: No Goals Patient Goals Patient goals : pt Short Term Goals Time Frame for Short Term Goals: 1 week Short Term Goal 1: indep feeding and grooming Short Term Goal 2: Pt will complete UB ADLs with set up A and Good cognition Short Term Goal 3: max x 1 toileting- LE bathe bottom and pants over hips assist stand with BUE support on lynette stedy or least restrictive device. Short Term Goal 4: concha 4-5 min static stand with BUE support with mod A of 1. Short Term Goal 5: Pt will participate in 30+ minutes of therapeutic exercises/functional activities to increase safety and independence with self care and mobility Short Term Goal 6: concha 10 reps shld, elbow AROM with mod resistance on R and min on L for BUE strengthening for use during mobility for adls. Short Term Goal 7: able to tolerate safely performing adl transfers with max A x 2 and RW 50 % of the time during therapy. Test Technician Goals Time Frame for Group Home Goals : by discharge Group Home Goal 1: mod x 1 LE bathe and dress (with cues, assist provided due to pt poor memory withL hip precautions. ) Test Technician Goal 2: mod x 1 toileting and adl transfers Group Home Goal 3: concha 6-7 min stand, transfer, amb with BUE support on RW and mod A. Test Technician Goal 4: concha 15 reps shld, elbow AROM with mod resistance on R and min on L for BUE strengthening for use during mobility for adls. Test Technician Goal 5: increase MMT B elbow to 4+/5, L shld to 4-/5 and R shld to 4/5 to demo improved BUE strengthening for use during mobility for adls. Plan Occupational Therapy Plan Times Per Week: 5-7 Times Per Day: Twice a day Current Treatment Recommendations: Strengthening, Balance training, Functional mobility training, Endurance training, Pain management, Safety education & training, Patient/Caregiver education & training, Equipment evaluation, education, & procurement, Positioning, Self-Care / ADL, Co-Treatment, Cognitive/Perceptual training, Wheelchair mobility training 03/01/25 1042 OT Individual Minutes Time In 904 Time Out 1029 Minutes 84 Minute Variance Variance 6 (borrow from speech) OT Individual Minutes OT Individual Minutes Time In: 904 Time Out: 1029 Minutes: 84 * Babita Martinez, SOFTWARE DEVELOPMENT ENGINEER - 03/01/2025 3:43 PM EDT Physical Therapy [facility] Acute Rehabilitation Physical Therapy Treatment Date: 03/01/25 Patient Name: Leanna Nguyễn Room: 2619/2619-01 Account: [id number] : 1940 (84 y.o.) Gender: male Additional Pertinent Hx: HISTORY OF PRESENT ILLNESS: This is an 84-year-old gentleman with history of atherosclerotic CAD s/p CABG, dyslipidemia, essential hypertension, hypothyroidism, Parkinson's disease, dementia with baseline disorientation, former smoker, pulmonary fibrosis, mild bilateral carotid artery disease, chronic kidney disease, chronic lower extremity edema, migraine headache and generalized osteoarthritis presented to the emergency room with complaints of left hip pain after he sustained a mechanical fall. Patient was sitting on the toilet, reached over and fell on the floor. He denies any loss of consciousness, dizziness or lightheadedness. Imaging shows displaced left femoral neck fracture, Dr Downing perform L Hip Hemiarthroplasty on 02/25/25. Pt allowed WBAT L LE for mobility. Response To Previous Treatment: Patient with no complaints from previous session. Family/Caregiver Present: No Referring Practitioner: Dr. Betancourt Referral Date : 02/28/25 Diagnosis: Left femoral neck fracture, S/P Left Hip hemiarthroplasty Follows Commands: Within Functional Limits Treatment Diagnosis: Difficulty walking Past Medical History: has no past medical history on file. Past Surgical History: has a past surgical history that includes hip surgery (Left, 02/25/2025). Restrictions Restrictions/Precautions Restrictions/Precautions: Bed Alarm, Weight Bearing, Fall Risk, Surgical Protocols (WBAT LLE, posterior hip precautions) Required Braces or Orthoses?: No Implants Present? : Metal implants (L blanka arthroplasty) Lower Extremity Weight Bearing Restrictions Left Lower Extremity Weight Bearing: Weight Bearing As Tolerated Position Activity Restriction Hip Precautions: Posterior hip precautions, No hip flexion > 90 degrees, No sudden or extreme motions, No hip internal rotation, No hip external rotation, No ADduction Other Position/Activity Restrictions: Procedure: HIP HEMIARTHROPLASTY (Left: Hip) 02.25.[address] Downing-posterior precautions. Pt has history of parkinson's. Subjective Subjective Subjective: Pt in relciner upon arrival in PM; agreeable to therapy Pain Pre-Pain: (pt does not rate however crying throughout tx d/t pain) Bed Mobility Bed mobility Sit to Supine: Substantial/Maximal assistance;2 Person assistance Transfers Transfers Sit to Stand: Substantial/Maximal assistance;2 Person Assistance Stand to Sit: Substantial/Maximal assistance;2 Person Assistance Bed to Chair: Dependent/Total (omar mauricio) PT Exercises Exercises completed: Exercise 1: completed multiple stand with SS from recliner, WC and paddles of SS. All transfers completed required Max x2 Exercise 2: standing tolerance with SS ~30 sec Exercise 3: standing while resting on paddles of SS ~8 minutes Exercise 4: bed mobility x1 Activity Tolerance Activity Tolerance Activity Tolerance: Treatment limited secondary to decreased cognition;Patient limited by pain;Patient limited by endurance Assessment Performance Deficits/Impairments: Decreased functional mobility , Decreased ROM, Decreased strength, Decreased safe awareness, Decreased cognition, Decreased endurance, Decreased vision/visual deficit, Increased pain, Decreased posture History: Hx of Parkinsons, dementia and heart failure. Discharge Recommendations: Home with assist PRN, Home with Home health PT Equipment PT D/C Equipment Equipment Needed: (continue to assess- pt has rolling walker) Education Restraints Restraints Initially in Place: No Goals Patient Goals Patient Goals : To work on standing up straight, to go back to [facility] Short Term Goals Time Frame for Short Term Goals: 10 visits Short Term Goal 1: Pt to complete supine<>sit at min A with HOB flat, use of rail Short Term Goal 2: Pt to complete sit to stand transfers with min assist, stand pivot transfers using RW with min assist Short Term Goal 3: Pt to ambulate with RW for 25 feet min assist Short Term Goal 4: Pt to improve standing balance to F+/F to reduce fall risk Short Term Goal 5: Pt to improve left hip strength to 3+/5, and knee strength to 4/5 to facilitate increased independence with gait, transfers Additional Goals?: Yes Short Term Goal 6: Pt to demonstrate posterior hip precautions with mod cueing during transfers andbed mobility Short Term Goal 7: Pt to propel wheelchair for 50 feet using UEs and LEs as able with SBA Short Term Goal 8: Pt to participate in TUG test if able using RW Group Home Goals Time Frame for Group Home Goals : By d/c Group Home Goal 1: Pt to complete bed mobility sup<>sit with SBA using rail prn Group Home Goal 2: Pt to complete sit to stand, stand pivot and car transfers with RW SBA Test Technician Goal 3: Pt to ambulate with RW for 50 feet or > SBA with cues for safety/posture Test Technician Goal 4: Pt to picking supervisor object from floor using banquet houseperson and UE support on RW with SBA Group Home Goal 5: Pt to improve balance and safety with ambulation as evidence by ability to complete TUG test in 30 seconds or less using RW tong setter goal 6: Pt to complete LE supine and seated ther ex for strengthening with min assist using handout Plan of Care Physical Therapy Plan General Plan: 60-120 minutes of therapy at least 5 out of 7 days a week Current Treatment Recommendations: Strengthening, ROM, Balance training, Functional mobility training, Transfer training, Gait training, Stair training, Neuromuscular re-education, Pain management, Home exercise program, Safety education & training, Patient/Caregiver education & training, Equipment evaluation, education, & procurement, Therapeutic activities, Wheelchair mobility training Safety Devices Type of Devices: Left in chair, Call light within reach, Chair alarm in place, Gait belt, Patient at risk for falls, All fall risk precautions in place (pt in recliner with B feet elevated and call light at his side and pressure alarm on seat and Bela SERRATO at his side.) PT Minutes 03/01/25 1526 PT Individual Minutes Time In 1320 Time Out 1413 Minutes 53 Cosigned by Pat Moran, PT at 03/02/2025 7:55 AM EDT * Lenore Vivas, ULTRA SOUND TECHNICIAN - 03/01/2025 3:24 PM EDT Speech Language Pathology [facility] Cognitive Treatment Note Date: 03/01/2025 Patient s Name: Leanna Nguyễn Diagnosis: Patient Active Problem List Diagnosis Code Left displaced femoral neck fracture (HCC) S72.002A Fall W19.XXXA ANIYA (acute kidney injury) N17.9 Parkinson's disease (HCC) G20.A1 Coronary artery disease involving [place] coronary artery of [place] heart without angina pectoris I25.10 Hip fracture, left, sequela S72.002S S/P hip hemiarthroplasty Z96.649 Closed fracture of left hip (HCC) S72.002A Pain Ratin/10, left hip, offered repositioning however pt. Declined. Cognitive Treatment Treatment time: ULTRA SOUND TECHNICIAN Individual Minutes Time In: 1453 Time Out: 1520 Minutes: 27 Subjective: [x] Alert [x] Cooperative [] Confused [] Agitated [] Lethargic Objective/Assessment: Attention: Pt. Kept eyes closed for duration of session, however was fully participative. Pt. Required frequent repetition of stimuli t/o session. Recall: Immediate recall of 3 pictured items: 2/3 increased to 3/3 with mod verbal cues. 3-minute delay: 3/3 independently. Additional 7-minute delay: 2/3 increased to 3/3 with mod verbal cues. Problem Solving/Reasoning: Missing equipment: 3/10 increased to 10/10 with mod- max verbal cues. Pt.Demo significant problem solving deficits re: home safety. Other: Pt. Requesting nurse at end of session; assembly instructions writer notified pt. Nurse. Bed alarm in use and calllight left within reach. Plan: [x] Continue services [] Discharge from : Discharge recommendations: [x] Further therapy recommended at discharge. [] No therapy recommended at discharge. Treatment completed by: Lenore Vivas M.S. [facility]-ULTRA SOUND TECHNICIAN * Bela Roe SLP - 03/01/2025 11:10 AM EDT Facility/Department: [facility] Initial Speech/Language/Cognitive Assessment NAME: Leanna Nguyễn : 1940 ADMISSION DATE: 02/28/2025 ADMITTING DIAGNOSIS: has Left displaced femoral neck fracture (HCC); Fall; ANIYA (acute kidney injury); Parkinson's disease (HCC); Coronary artery disease involving [place] coronary artery of [place] heart without angina pectoris; Hip fracture, left, sequela; S/P hip hemiarthroplasty; and Closed fracture of left hip (HCC) on their problem list. Date of Eval: 03/01/2025 Evaluating Therapist: ISHMAEL Brito Diagnosis/Impressions Speech Therapy Diagnosis Assessment Summary: Pt. demonstrated functional speech and language skills with moderate to severely impaired cognition. Per [facility], pt. has dementia but lives alone in assisted living. Family was not present at the time of assessment to confirm baseline LOF. ST warranted to bring cognition to a functional level for safe home d/c. RECENT RESULTS CT OF HEAD/MRI: Results for orders placed during the hospital encounter of 02/25/25 CT HEAD WO CONTRAST Narrative EXAMINATION: CT OF THE HEAD WITHOUT CONTRAST 02/25/2025 1:13 am TECHNIQUE: CT of the head was performed without the administration of intravenous contrast. Automated exposure control, iterative reconstruction, and/or weight based adjustment of the mA/kV was utilized to reduce the radiation dose to as low as reasonably achievable. COMPARISON: None HISTORY: ORDERING SYSTEM PROVIDED HISTORY: fall TECHNOLOGIST PROVIDED HISTORY: fall Decision Support Exception - unselect if not a suspected or confirmed emergency medical condition->Emergency Medical Condition (MA) Reason for Exam: fall FINDINGS: BRAIN/VENTRICLES: No masses nor acute intracranial hemorrhage. Intact ortiz/white matter differentiation without findings of acute ischemia. No mass effect nor midline shift. Patent basilar cisterns and foramen magnum. No hydrocephalus. Age-appropriate mild diffuse atrophy. Mild deep and periventricular white matter hypodensities likely due to chronic small vessel ischemia. Bilateral basal ganglia physiologic calcifications. ORBITS: Bilateral lens implants. No acute abnormality. SINUSES: No acute abnormality. SOFT TISSUES/SKULL: No obvious acute soft tissue abnormality. Moderate to severe atherosclerotic calcifications. No acute fracture. Impression No acute findings in the head. Pain: Patient does not c/o pain General Behavior/Cognition: Alert;Cooperative;Confused Respiratory Status: Room air O2 Device: None (Room air) Vision/Hearing Vision: Within Functional Limits Hearing: Impaired Hearing Exceptions: Hard of hearing/hearing concerns Recommendations: Requires ULTRA SOUND TECHNICIAN Intervention: Yes Goals: Short Term Goals Goal 1: Increase functional problem solving and reasoning for ADL tasks to 70% Goal 2: Increase recall for 3-5 units of information to 60%. Patient/family involved in developing goals and treatment plan: family not present Subjective: Primary Complaint: Per PM&R H&P: Leanna Nguyễn is a 84 y.o. right-handed male admitted to the [facility] on 02/28/2025. He was originally admitted to [facility] on 02/25/2025 for left femoral neck fracture following fall. 84-year-old male with a history of Parkinson's, CHF, coronary artery disease, CABG, hyperlipidemia,hypertension, altered mental status, syncope and collapse, pulmonary fibrosis, CKD and dementia presenting with hip pain after fall. Patient is disoriented at baseline. Cardiology 02/26-aspirin resumed, torsemide held in setting of hypokalemia. Internal medicine-left femoral neck fracture status post left hip hemiarthroplasty 02/25 lives in assisted living Ortho-displaced femoral neck fracture status post left hip hemiarthroplasty on 02/25 Nephrology- patient noted to have ANIYA on CKD postoperative, UA and renal ultrasound unremarkable. Improved with gentle rehydration. Palliative care brother has power of civil attorney no , no children parents are Krunal is the only sibling and next of kin reports that his daughter Kimberly is secondary, brother feels he can make his own decision, currently full code He is currently requiring assistance for self-care activities and mobility prompting this admission. Previous level of function and limitations: h/o dementia but lives alone at [place] at baseline Patient assessed for rehabilitation services?: Yes Social Functional Social/Functional History Lives With: Alone (assisted living apartment) Type of Home: Assisted living ([place]) Home Layout: One level Home Access: Level entry Bathroom Shower/Tub: Walk-in shower, Shower chair without back Bathroom Toilet: Standard Bathroom Equipment: Grab bars in shower, Shower chair, Grab bars around toilet Bathroom Accessibility: Walker accessible Home Equipment: Walker - Rolling, Alert button Has the patient had two or more falls in the past year or any fall with injury in the past year?: Yes (fell while seated on toilet and reaching for a towel) Receives Help From: Other (Comment) (assisted living staff) Prior Level of Assist for ADLs: Independent Prior Level of Assist for Homemaking: Needs assistance Homemaking Responsibilities: No Prior Level of Assist for Ambulation: Independent household ambulator, with or without device (without AD) Prior Level of Assist for Transfers: Independent Leisure & Hobbies: Pt reports that he participates in all activities offered Additional Comments: sleeps in flat bed, exits to the right Objective: Oral Motor: Within Functional Limits Motor Speech Apraxic Characteristics: None Dysarthric Characteristics: None Intelligibility: No impairment Overall Impairment Severity: None Auditory Comprehension Comprehension: Impaired Complex Questions: Moderate Conversation: Moderate Expression Primary Mode of Expression: Verbal Verbal Expression: Within Functional Limits Cognition: Orientation: Oriented x4 Attention: Impaired Sustained Attention: Mild Memory: Impaired Short-term Memory: Moderate Working Memory: Severe Problem Solving: Impaired Simple Functional Tasks: Severe (multiprocess reasoning 1/4, 2/4 c cues.) Abstract Reasoning: Impaired Convergent Thinking: Severe (1/3 convergent categorization) Divergent Thinking: Mild (12 items in 60 seconds) Safety/Judgment: Impaired Insight: Severe Flexibility of Thought: Severe Education: Education Topic: Results/ recommendations of diagnostic testing;Role of ULTRA SOUND TECHNICIAN Education Method: Verbal Patient Education Response: Needs reinforcement;Verbalizes understanding Therapy Time: Individual Concurrent Group Co-treatment Time In 1035 Time Out 1056 Minutes 21 * Pat Moran, PT - 03/01/2025 9:40 AM EDT Physical Therapy [facility] Acute Rehabilitation Physical Therapy Evaluation Date: 03/01/25 Patient Name: Leanna Nguyễn Room: 2619/2619-01 Account: [id number] : 1940 (84 y.o.) Gender: male Additional Pertinent Hx: HISTORY OF PRESENT ILLNESS: This is an 84-year-old gentleman with history of atherosclerotic CAD s/p CABG, dyslipidemia, essential hypertension, hypothyroidism, Parkinson's disease, dementia with baseline disorientation, former smoker, pulmonary fibrosis, mild bilateral carotid artery disease, chronic kidney disease, chronic lower extremity edema, migraine headache and generalized osteoarthritis presented to the emergency room with complaints of left hip pain after he sustained a mechanical fall. Patient was sitting on the toilet, reached over and fell on the floor. He denies any loss of consciousness, dizziness or lightheadedness. Imaging shows displaced left femoral neck fracture, Dr Downing perform L Hip Hemiarthroplasty on 02/25/25. Pt allowed WBAT L LE for mobility. Response To Previous Treatment: Not applicable Referring Practitioner: Dr. Betancourt Referral Date : 02/28/25 Diagnosis: Left femoral neck fracture, S/P Left Hip hemiarthroplasty Follows Commands: Within Functional Limits Treatment Diagnosis: Difficulty walking Past Medical History: has no past medical history on file. Past Surgical History: has a past surgical history that includes hip surgery (Left, 02/25/2025). Restrictions Restrictions/Precautions Restrictions/Precautions: Bed Alarm, Weight Bearing, Fall Risk, Surgical Protocols (WBAT LLE, posterior hip precautions) Required Braces or Orthoses?: No Implants Present? : Metal implants (L blanka arthroplasty) Lower Extremity Weight Bearing Restrictions Left Lower Extremity Weight Bearing: Weight Bearing As Tolerated Position Activity Restriction Hip Precautions: Posterior hip precautions, No hip flexion > 90 degrees, No sudden or extreme motions, No hip internal rotation, No hip external rotation, No ADduction Other Position/Activity Restrictions: Procedure: HIP HEMIARTHROPLASTY (Left: Hip) 02.25.[address] Downing-posterior precautions. Pt has history of parkinson's. Vitals Vitals O2 Device: None (Room air) Subjective Subjective Subjective: Pt pleasant and agreeable to PT. C/o pain with movement and states right after surgery? while completing supine to sit Pain Pre-Pain: 0 Post-Pain: 8 Pain Location: Left, Leg Pain Interventions: Rest, Repositioning Social/Functional History Social/Functional History Lives With: Alone (assisted living apartment) Type of Home: Assisted living ([place]) Home Layout: One level Home Access: Level entry Bathroom Shower/Tub: Walk-in shower, Shower chair without back Bathroom Toilet: Standard Bathroom Equipment: Grab bars in shower, Shower chair, Grab bars around toilet Bathroom Accessibility: Walker accessible Home Equipment: Walker - Rolling, Alert button Has the patient had two or more falls in the past year or any fall with injury in the past year?: Yes (fell while seated on toilet and reaching for a towel) Receives Help From: Other (Comment) (assisted living staff) Prior Level of Assist for ADLs: Independent Prior Level of Assist for Homemaking: Needs assistance Homemaking Responsibilities: No Prior Level of Assist for Ambulation: Independent household ambulator, with or without device (without AD) Prior Level of Assist for Transfers: Independent Leisure & Hobbies: Pt reports that he participates in all activities offered Additional Comments: sleeps in flat bed, exits to the right Objective Observation/Palpation Posture: Fair Observation: Forward head, rounded shoulder-stooped posture, Slight edema noted L LE > R LE Vision Vision: Within Functional Limits Hearing Hearing: Impaired Hearing Exceptions: Hard of hearing/hearing concerns Gross Assessment Sensation: Intact Sensation Overall Sensation Status: WFL Cognition Orientation Overall Orientation Status: Within Functional Limits Orientation Level: Oriented to person, Disoriented to place, Disoriented to time, Disoriented to situation (Pt reports he is here for his foot) Cognition Overall Cognitive Status: Exceptions Arousal/Alertness: Appears intact Following Commands: Follows one step commands with repetition, Follows one step commands with increased time Attention Span: Appears intact Safety Judgement: Decreased awareness of need for assistance, Decreased awareness of need for safety Problem Solving: Assistance required to generate solutions, Assistance required to identify errors made Insights: Decreased awareness of deficits Initiation: Requires cues for some Sequencing: Requires cues for some LE Function AROM RLE (degrees) RLE AROM: WFL Strength RLE Comment: 4-/5 at Hip, knee and ankle 4/5 PROM LLE (degrees) LLE General PROM: Impaired Left Hip ROM due to recent surgery, Knee flexion at least 85 degress while seated EOB, Ankle WFL. AROM LLE (degrees) LLE General AROM: impaired due to weakness Strength LLE Comment: Hip flexion 2/5, abd 2-/5, knee ext 2+/5, ankle 3+/5 Mobility Bed Mobility Bed mobility Rolling to Left: Substantial/Maximal assistance, 2 Person assistance Rolling to Right: Minimal assistance Supine to Sit: 2 Person assistance, Substantial/Maximal assistance Sit to Supine: Unable to assess (did not take place) Scooting: Dependent/Total, 2 Person assistance (to EOB) Bed Mobility Comments: max time req, cuing with poor return, use of bed pad req to progress hips forward Transfers Transfers Sit to Stand: Substantial/Maximal assistance, 2 Person Assistance (Pt was able to complete 2nd sit to biofuels processing technician parallel bars with mod assist x 1, all other transfers were max assist x 2) Stand to Sit: Substantial/Maximal assistance, 2 Person Assistance (Pt requires assist to weight shift hips to left to sit safely on surface) Bed to Chair: Dependent/Total (lynette stedy) Comment: Pt demonstrates forward flexed posture in lynette stedy with downward gaze, hips weight shifted to right on paddles Ambulation Ambulation WB Status: WBAT L LE Ambulation Surface: Level tile Device: Parallel Bars Other Apparatus: Wheelchair follow Quality of Gait: Stooped posture, knee flexion in stance phase, difficulty with weight acceptance to LLE, short step length bilateral Gait Deviations: Decreased step length, Decreased step height, Shuffles, Slow Wendy Distance: 5 feet x 2 Comments: Pt required cues for upright posture, flexed knee correction, and advancing hands first Stairs/Curb Stairs?: No (pt has level entry, no stairs) Balance Balance Posture: Fair Sitting - Static: Fair, + Sitting - Dynamic: Fair, - Standing - Static: Fair, - (with lynette stedy) Standing - Dynamic: Poor, + (with lynette stedy) PT Exercises Activity Tolerance Activity Tolerance Activity Tolerance: Treatment limited secondary to decreased cognition, Patient limited by pain, Patient limited by endurance Assessment Assessment Assessment: Presents with decreased ROM/strength L LE, decreased endurance and balance after fall and L Hemiarthroplasty. Pt pleasant and motivated to particiapte in therapy and improve function. At baseline pt was independent for all of his mobility and self care at assisted living. At present pt requires assistance of 2 people for all functional mobility and slefcare. With skilled therapy services, pt has potential to improve his mobility/independnece prior to returning back to assisted living facility Performance Deficits/Impairments: Decreased functional mobility , Decreased ROM, Decreased strength, Decreased safe awareness, Decreased cognition, Decreased endurance, Decreased vision/visual deficit, Increased pain, Decreased posture Treatment Diagnosis: Difficulty walking Therapy Prognosis: Good Decision Making: Medium Complexity History: Hx of Parkinsons, dementia and heart failure. Discharge Recommendations: Home with assist PRN, Home with Home health PT Equipment PT D/C Equipment Equipment Needed: (continue to assess- pt has rolling walker) Education Education Education Given To: Patient Education Provided: Role of Therapy, Precautions, Safety, Mobility Training, Transfer Training, Equipment Education Method: Demonstration, Verbal Education Outcome: Continued education needed Restraints Restraints Initially in Place: No Goals Patient Goals Patient Goals : To work on standing up straight, to go back to [facility] Short Term Goals Time Frame for Short Term Goals: 10 visits Short Term Goal 1: Pt to complete supine<>sit at min A with HOB flat, use of rail Short Term Goal 2: Pt to complete sit to stand transfers with min assist, stand pivot transfers using RW with min assist Short Term Goal 3: Pt to ambulate with RW for 25 feet min assist Short Term Goal 4: Pt to improve standing balance to F+/F to reduce fall risk Short Term Goal 5: Pt to improve left hip strength to 3+/5, and knee strength to 4/5 to facilitate increased independence with gait, transfers Additional Goals?: Yes Short Term Goal 6: Pt to demonstrate posterior hip precautions with mod cueing during transfers andbed mobility Short Term Goal 7: Pt to propel wheelchair for 50 feet using UEs and LEs as able with SBA Short Term Goal 8: Pt to participate in TUG test if able using RW Group Home Goals Time Frame for Test Technician Goals : By d/c Test Technician Goal 1: Pt to complete bed mobility sup<>sit with SBA using rail prn Group Home Goal 2: Pt to complete sit to stand, stand pivot and car transfers with RW SBA Test Technician Goal 3: Pt to ambulate with RW for 50 feet or > SBA with cues for safety/posture Group Home Goal 4: Pt to picking supervisor object from floor using banquet houseperson and UE support on RW with SBA Test Technician Goal 5: Pt to improve balance and safety with ambulation as evidence by ability to complete TUG test in 30 seconds or less using RW intermediate goal 6: Pt to complete LE supine and seated ther ex for strengthening with min assist using handout Plan of Care Physical Therapy Plan General Plan: 60-120 minutes of therapy at least 5 out of 7 days a week (5-7 times/week) Current Treatment Recommendations: Strengthening, ROM, Balance training, Functional mobility training, Transfer training, Gait training, Stair training, Neuromuscular re-education, Pain management, Home exercise program, Safety education & training, Patient/Caregiver education & training, Equipment evaluation, education, & procurement, Therapeutic activities, Wheelchair mobility training Safety Devices Type of Devices: Left in chair, Call light within reach, Chair alarm in place, Gait belt, Patient at risk for falls (care transferred to [place], OT) PT Minutes Time Code Minutes Timed Code Treatment Minutes: 47 Minutes PT Individual Minutes Time In: 0758 Time Out: 0900 Minutes: 62 * Cailin Johnson RN - 03/01/2025 7:14 AM EDT Images from the original note were not included. ACUTE INPATIENT REHABILITATION ADMISSION [facility] Patient Name: Leanna Nguyễn Ethnicity: Not , /a or Bruneian Origin Race: White Date of Admit: 02/28/2025 Time of Arrival: 1545 Patient admitted to the Acute Inpatient Rehabilitation Unit via Bed Patient oriented to room, unit and fall prevention safety measures. Education provided on the rehabilitation routine and therapy schedules. Drug / Medication Regimen Review Admitting medication orders compared with acute stay medications; home medication list reviewed with patient/family. Medication Issues Identified ? No Medication Issues Identified Attending Physical Medicine & Rehabilitation (PM&R) Admitting Order Review Admission orders reviewed with Acute Inpatient Rehabilitation Attending PM&R Physician: Admission orders reviewed with Acute Inpatient Rehabilitation Attending PM&R Physician: Dr. Juan Ramon Lucero Skin Assessment Skin assessment performed by two nurses: all active alterations in skin integrity, wounds, lines, drains and airways assessed, measured, recorded and reconciled. Refer to LDA avatar and LDA flowsheetfor additional information. Nurse 1 Completing Skin Assessment Ddh rn Nurse 2 Completing Skin Assessment Kl risk management internship consulted for pressure injuries or complex wounds identified? Yes Admission Weight Patient's Weight Upon Admission Documented in Flowsheet? Yes Bowel and Bladder Functional Assessment Prior History of Bladder Problems: no problems with bladder Prior History of Bowel Problems: No Prior History of Bowel Problems Last Bowel Movement 02/28/2025 Pain Assessment Over the past 5 days, how much of the time has pain made it hard for you to sleep at night? Frequently Over the past 5 days, how often have you limited your participation in rehabilitation therapy sessions due to pain? Frequently Over the past 5 days, how often have you limited your day-to-day activities (excluding rehabilitation therapy session)? Rarely or not at all Special Treatments, Procedures, and Programs Check all of the following treatments, procedures, and programs that apply on admission. Cancer Treatments Chemotherapy No Chemotherapy Treatments Radiation No Respiratory Therapies Oxygen Therapy No Oxygen Therapy Treatment Suctioning No Suctioning Treatments Tracheostomy Care No Invasive Mechanical Ventilator (Ventilator or Respirator) No Non-Invasive Mechanical Ventilator No Non-Invasive Mechanical Ventilation Other IV Medications No IV Medications Ordered Transfusions No Dialysis No Dialysis Treatment IV Access No IV Access In Place COVID Vaccination Status Immunization reconciliation completed via admission navigator Completed Is patient's COVID-19 vaccination up to date? Yes Click Here for [facility] Definition of Up to Date *Please Note: COVID vaccinations are not available for inpatient administration through inpatient pharmacy. If patient would like to receive vaccination, provide education that vaccine may be available for administration upon discharge through an outpatient pharmacy of their choice or primary care pierce cedeno. Patient education completed? Not Applicable - Patient is Up to Date with COVID vaccine Patient Health Questionnaire-9 (PHQ-2 to 9) Over the last 2 weeks, how often have you been bothered by any of the following problems? 1. Little Interest or pleasure in doing things? Never or 1 Day - Score 0 2. Feeling down, depressed or hopeless? Never or 1 Day - Score 0 3. Trouble falling or staying asleep, or sleeping too much? Never or 1 Day - Score 0 4. Feeling tired or having little energy? Never or 1 Day - Score 0 5. Poor appetite or overeating? Never or 1 Day - Score 0 6. Feeling bad about yourself-or that you are a failure or have let yourself or your family down? Never or 1 Day - Score 0 7. Trouble concentrating on things, such as reading the newspaper or watching television? Never or 1 Day - Score 0 8. Moving or speaking so slowly that other people could have noticed? Or the opposite-being so fidgety or restless that you have been moving around a lot more than usual? Never or 1 Day - Score 0 9. Thoughts that you would be better off or of hurting yourself in some way? Never or 1 Day - Score 0 Total Score: 0 PM&R Physician Notification Completed? Yes, Notification Completed - Score is 15 or greater Social Isolation How often do you feel lonely or isolated from those around you? Never Access To Transportation In the past six months to a year, has lack of transportation kept you from medical appointments or from getting your medications? No In the past six months to a year, has lack of transportation kept you from non- medical meetings, appointments, work, or from getting things that you need? No The responses to access to transportation remain applicable for the duration of the Acute InpatientRehabilitation encounter unless otherwise specified. Admission folder with the following documents provided to patient/responsible republican: 1. [facility] Acute Rehabilitation [facility] Individualized Disclosure Statement 2. Data Collection Information Summary for Patients in Inpatient Rehabilitation Facilities 3. Privacy Act Statement - Health Care Records Care plan was created with patient/responsible republican input and goals were agreed upon. Please refer to the admission navigator for further information. Charting/questions completed by Anjana Riggs RN. Smart Phrase Template Revision: 10/10/2024 documented in this encounterBon [facility] Discharge instructions* Discharge Instr - Activity* Mele Alvarado RN - 03/16/2025 12:14 PM EDT 2 assist with lynette perez * Discharge Instr - Diet* Mele Alvarado RN - 03/16/2025 12:14 PM EDT Good nutrition is important when healing from an illness, injury, or surgery. Follow any nutrition recommendations given to you during your hospital stay. If you were given an oral nutrition supplement while in the hospital, continue to take this supplement at home. You can take it with meals, in-between meals, and/or before bedtime. These supplements can be purchased at most local grocery stores, pharmacies, and chain [email or web address]-stores. If you have any questions about your diet or nutrition, call the hospital and ask for the dietitian. General diet. No restrictions * Discharge Instr - MARYJANE* Juan Ramon Lucero MD - 03/12/2025 9:57 PM EDT Continuity of Care Form Patient Name: Leanna Nguyễn : 1940 Admit date: 02/28/2025 Discharge date: 03/16/25 Code Status Order: Full Code Advance Directives: Admitting Physician: Juan Ramon Lucero MD PCP: Pipe Jeffers MD Discharging Nurse: Mele MOBLEY Discharging Hospital Unit/Room#: 2619/2619-01 Discharging Unit Emergency Contact: Extended Emergency Contact Information Primary Emergency Contact: GARRY ARGUETA Relation: Niece/Nephew Secondary Emergency Contact: Krunal Nguyễn Mobile Relation: Brother/Sister Nipping Machine Operator needed? No Past Surgical History: Past Surgical History: Procedure Laterality Date HIP SURGERY Left 02/25/2025 HIP HEMIARTHROPLASTY performed by Ana Downing MD at [facility] OR Immunization History: There is no immunization history on file for this patient. Active Problems: Patient Active Problem List Diagnosis Code Left displaced femoral neck fracture ([facility]) S72.002A Fall W19.XXXA ANIYA (acute kidney injury) N17.9 Parkinson's disease ([facility]) G20.A1 Coronary artery disease involving [place] coronary artery of [place] heart without angina pectoris I25.10 Hip fracture, left, sequela S72.002S S/P hip hemiarthroplasty Z96.649 Closed fracture of left hip ([facility]) S72.002A Isolation/Infection: Isolation No Isolation Patient Infection Status None to display Nurse Assessment: Last Vital Signs: BP (!) 162/70 Pulse 55 Temp 97.9 F (36.6 C) Resp 15 Ht 1.854 m (6' 0.99 ) Wt 97 kg (213 lb 13.5 oz) SpO2 98% BMI 28.22 kg/m Last documented pain score (0-10 scale): Pain Level: 0 Last Weight: Wt Readings from Last 1 Encounters: 02/28/25 97 kg (213 lb 13.5 oz) Mental Status: oriented, alert, and memory loss at times IV Access: - None Nursing Mobility/ADLs: Walking Assisted Transfer Assisted Bathing Assisted Dressing Assisted Toileting Assisted Feeding Independent Brick Or Block Maker Independent Med Delivery whole Wound Care Documentation and Therapy: Incision 02/25/25 Hip Left;Lateral (Active) Dressing Status Dry;Intact;Other (Comment);Old drainage noted 03/12/25 0730 Incision Cleansed Not Cleansed 03/11/251999 Dressing/Treatment Other (comment) 03/03/25 08 Closure Adhesive bandage 03/09/252126 Incision Assessment Other (Comment) 03/09/252126 Drainage Amount None (dry) 03/03/25 0800 Odor None 03/09/252126 Ronit-incision Assessment Blanchable erythema 03/03/25 0800 Number of days: 15 Elimination: Continence: Bowel: Yes Bladder: Yes Urinary Catheter: None Colostomy/Ileostomy/Ileal Conduit: No Date of Last BM: 03/16/25 No intake or output data in the 24 hours ending 03/12/252156 No intake/output data recorded. Safety Concerns: At Risk for Falls Impairments/Disabilities: None Nutrition Therapy: Current Nutrition Therapy: - Oral Diet: General Routes of Feeding: Oral Liquids: Thin Liquids Daily Fluid Restriction: no Last Modified Barium Swallow with Video (Video Swallowing Test): not done Treatments at the Time of Hospital Discharge: Respiratory Treatments: NA Oxygen Therapy: is not on home oxygen therapy. Ventilator: - No ventilator support Rehab Therapies: Physical Therapy, Occupational Therapy, and Speech/Language Therapy Weight Bearing Status/Restrictions: No weight bearing restrictions Other Medical Equipment (for information only, NOT a DME order): NA Other Treatments: NA Patient's personal belongings (please select all that are sent with patient): None RN SIGNATURE: CASE MANAGEMENT/SOCIAL WORK SECTION Inpatient Status Date: 02/28/25 Readmission Risk Assessment Score: [facility] RISK OF UNPLANNED READMISSION 2.0 13.1 Total Score Discharging to Facility/ Agency Name: .[facility] Address: [address] [place] [address] Vegetable Preparer/Building Attendant signature: PHYSICIAN SECTION Prognosis: Fair Condition at Discharge: Stable Rehab Potential (if transferring to Rehab): Fair Recommended Labs or Other Treatments After Discharge: Physical and occupational therapy for ongoingfunctional deficits related to left hip fracture s/p hemiarthroplasty. Physician Certification: I certify the above information and transfer of Leanna Nguyễn is necessaryfor the continuing treatment of the diagnosis listed and that he requires Retirement Facility for more than 30 days. Update Admission H&P: No change in H&P PHYSICIAN SIGNATURE: documented in this encounterBon [facility] History of Present illness Narrative* Alison Velez RN - 02/28/2025 2:59 PM EDT Report called to ARU. IV removed, catheter intact. Discharge instructions given. Denies any questions at this time. * Saul Crouch MD - 02/28/2025 12:44 PM EDT Nephrology Progress Note Subjective/ 84 y.o. year old male who we are seeing in consultation for acute kidney injury, displaced left femoral neck fracture left hip status post left hip hemiarthroplasty 02/25/2025 Patient seen and examined, denies any new complaints no nausea vomiting no chest pain shortness of breath Eating lunch Blood pressure stable Labs reviewed serum creatinine improving from 2.8 mg/dL to 1.8 mg/dL Patient does not have a Shell urine output recorded as 1200 mL of urine external catheter Brief history Patient with past medical history of atherosclerotic coronary artery disease status post CABG, history of hyperlipidemia, essential hypertension, hypothyroidism, Parkinson's disease dementia with baseline disorientation former smoker, history of pulmonary fibrosis mild bilateral cardiac carotid artery disease, CKD stage III. Patient presented to the hospital with complaints of left hip pain afterhe recently sustained a fall, patient denies dizziness nausea vomiting chest pain X-ray showed displaced femoral neck fracture of left hip, patient underwent left hip hemiarthroplasty on 02/25/2025 Home medications reviewed, on amlodipine, torsemide Objective/ Vitals: 02/27/25199902/28/25 0001 02/28/25 0524 02/28/25 0604 BP: (!) 150/73 (!) 131/58 (!) 156/62 Pulse: 74 72 58 Resp: 18 16 16 Temp: 98.1 F (36.7 C) 98.1 F (36.7 C) 98.8 F (37.1 C) TempSrc: Oral Oral Oral SpO2: 98% 95% 97% Weight: 97 kg (213 lb 13.5 oz) Height: 24HR INTAKE/OUTPUT: Intake/Output Summary (Last 24 hours) at 02/28/2025 1245 Last data filed at 02/28/2025 0604 Gross per 24 hour Intake 360 ml Output 1200 ml Net -840 ml Patient Vitals for the past 96 hrs (Last 3 readings): Weight 02/28/25 0524 97 kg (213 lb 13.5 oz) 02/25/25 0044 90.7 kg (200 lb) Constitutional: Alert, awake, no apparent distress Cardiovascular: S1, S2 without m/r/g Respiratory: CTA B without w/r/r Abdomen: +bs, soft, nt Ext: Trace LE edema Data/ Recent Labs 02/26/25 0839 02/27/25 0915 WBC 9.8 9.3 HGB 12.5* 11.7* HCT 40.6* 37.6* MCV 94.0 94.7 PLT 174 153 Recent Labs 02/26/25 0839 02/26/25 1549 02/27/25 0915 NA 142 141 139 K 3.7 4.0 3.7 CL 104 104 103 CO2 GLUCOSE 133* 133* 158* PHOS -- 2.0* -- BUN 44* 43* 37* CREATININE 2.1* 2.0* 1.8* LABGLOM 30* 32* 36* Assessment/ Acute kidney injury on CKD, most likely secondary to prerenal azotemia improving with IV fluids andhydration use of torsemide, UA of 1+ protein 0 to RBCs serum creatinine peaked to 2.8 mg/dL serum creatinine improving CKD stage IIIb with baseline serum creatinine of 2.1 mg/dL noted in 2022, 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, SCR IMPROVED TO 1.8 Essential hypertension blood pressure well-controlled Plan/ 1-DC IV 2-strict I's and O's 3-avoid nephrotoxic agents Continue to hold torsemide No objections on discharge to rehab Saul Crouch MD * Cagle, Pinky, POLICE CAPTAIN PRECINCT - SORT LINE - 02/28/2025 10:34 AM EDT Images from the original note were not included. Cardiology Progress Note Jeremiah Lomas MD, Julianna Heller MD, JACK Anaya MD, Shira Cardenas MD, Windy Covington MD, Estella Hatch MD, Alex Sidhu MD, [facility] Date: 02/28/2025 Patient name: Leanna Nguyễn Date of admission: 02/25/2025 12:40 AM Date of : 1940 PCP: Pipe Jeffers MD Subjective: Patient status post hemiarthroplasty Pod 3. Patient feeling well, states he worked with therapy this AM. No acute events overnight, remained hemodynamically stable, denies chest pain, dyspnea, orthopnea or palpitations. Scheduled Meds: sodium chloride flush 5-40 mL IntraVENous 2 times per day levothyroxine 100 mcg Oral Daily liothyronine 5 mcg Oral Daily memantine 10 mg Oral BID sertraline 25 mg Oral Daily carbidopa-levodopa 1 tablet Oral TID sodium chloride flush 5-40 mL IntraVENous 2 times per day aspirin 81 mg Oral BID Continuous Infusions: sodium chloride 100 mL/hr at 02/25/25 1204 sodium chloride 35 mL/hr at 02/27/25 1627 sodium chloride Labs: CBC: Recent Labs 02/26/25 0839 02/27/25 0915 WBC 9.8 9.3 HGB 12.5* 11.7* PLT 174 153 BMP: Recent Labs 02/26/25 0839 02/26/25 1549 02/27/25 0915 NA 142 141 139 K 3.7 4.0 3.7 CL 104 104 103 CO2 BUN 44* 43* 37* CREATININE 2.1* 2.0* 1.8* GLUCOSE 133* 133* 158* Hepatic: Recent Labs 02/26/25 1549 AST 26 ALT 5* BILITOT 0.3 ALKPHOS 81 Troponin: No results for input(s): TROPONINI in the last 72 hours. BNP: No results for input(s): BNP in the last 72 hours. Lipids: No results for input(s): CHOL , HDL in the last 72 hours. Invalid input(s): LDLCALCU INR: No results for input(s): INR in the last 72 hours. Objective: Vitals: BP (!) 156/62 Pulse 58 Temp 98.8 F (37.1 C) (Oral) Resp 16 Ht 1.854 m (6' 1 ) Wt 97 kg (213 lb 13.5 oz) SpO2 97% BMI 28.21 kg/m General appearance: awake, alert, in no apparent respiratory distress HEENT: Head: Normocephalic, no lesions, without obvious abnormality Neck: no JVD Lungs: clear to auscultation bilaterally, no basilar rales, no wheezing Heart: regular rate and rhythm, S1, S2 normal, no murmur, click, rub or gallop Abdomen: soft, non-tender; bowel sounds normal Extremities: No LE edema Neurologic: Mental status: Alert, oriented. Motor and sensory not done. Cardiac testing: EKG: Sinus bradycardia 57 bpm. AV block. Nonspecific T wave changes. Previous cardiac testing: Echo: Echocardiogram 07/02/2022 at [facility] Left ventricular systolic function normal with EF 55 to 60%. Diastolic function is indeterminate. Right ventricle is normal in size and systolic function. Biatrial enlargement. Mild to moderate tricuspid regurgitation. RVSP 54 mmHg, consistent with moderate pulmonary hypertension. IVC is dilated. Nuclear Stress Test: No results found for this or any previous visit. Cath: No results found for this or any previous visit. Impression: #hemiarthroplasty postop #CAD status post CABG #HLD #Hypertension #ANIYA #Hypothyroidism #Parkinson's Plan: Continue aspirin Lipid panel reviewed total cholesterol 135, LDL 71. Continue to monitor off cholesterol medication. Blood pressure well-controlled since Norvasc has been discontinued. Continue to monitor blood pressure. Given Parkinson's would allow mild permissive hypertension given elevated risk for orthostatic hypotension in this patient population. Continue to hold torsemide 10 mg given hypokalemia. Can consider Aldactone 12.5 mg daily if okay with nephrology No objection to discharge from a cardiology standpoint. Cardiology to sign off at this time, kindlycall with questions. TITUS Josue CNP [facility] [place] Cosigned by Charmaine Anaya MD at 02/28/2025 11:35 AM EDT * Mike Betancourt MD - 02/28/2025 9:49 AM EDT Physical Medicine & Rehabilitation Progress Note CC: Left femoral neck fracture status post left hip hemiarthroplasty 02/25 complicated with Parkinson's Nephrology-ANIYA on CKD likely prerenal, CKD stage IIIb baseline 2.1 creatinine, taper IV fluids holdtorsemide, avoid nephrotoxic agents Subjective: No complaints. Feels well. Pain controlled at rest. Last BM documented 02/25 ROS: Denies fevers, chills, sweats. No chest pain, palpitations, lightheadedness. Denies coughing, wheezing or shortness of breath. Denies abdominal pain, nausea, diarrhea or constipation. No new areas of joint pain. Denies new areas of numbness or weakness. Denies new anxiety or depression issues. No new skin problems. Rehabilitation: PT: Bed mobility Rolling to Right: Substantial/Maximal assistance (To R side) Supine to Sit: Substantial/Maximal assistance (To right side of bed c bed rail) Sit to Supine: Substantial/Maximal assistance, 2 Person assistance (Trunk and (B) LE assist.) Scooting: Dependent/Total (To EOB) Bed Mobility Comments: Increased time needed due to pain in his L LE durign mobility Transfers Sit to Stand: Substantial/Maximal assistance, 2 Person Assistance (does better pulling from walker vs pushing from bed, height of bed elevated) Stand to Sit: Substantial/Maximal assistance, 2 Person Assistance Bed to Chair: Substantial/Maximal assistance, 2 Person Assistance (RW) Comment: Rolling walker used for stability Ambulation WB Status: WBAT L LE Ambulation Surface: Level tile Device: Rolling Walker Assistance: Partial/Moderate assistance, 2 Person assistance Quality of Gait: Stooped posture, assist to guide walker, Parkinson like gait pattern Gait Deviations: Decreased step length, Decreased step height, Shuffles, Slow Wendy Distance: 4 ft forward/back, 4 ft toward HOB Comments: Recommend Nursing staff use omar mauricio with 2 person assist for trasnfers at this time OT: Feeding: Modified independent Feeding Skilled Clinical Factors: drinking out of cup while seated in recliner Grooming: Supervision, Based on clinical judgement UE Bathing: Stand by assistance, Based on clinical judgement LE Bathing: Maximum assistance, Based on clinical judgement UE Dressing: Stand by assistance, Based on clinical judgement LE Dressing: Dependent/Total, Based on clinical judgement Putting On/Taking Off Footwear: Dependent/Total, Based on clinical judgement Toileting: Dependent/Total (external cath placed this date) Additional Comments: ADL scores based on clinical reasoning unless otherwise noted. Pt demonstrateslimitations in pain, balance, and cognition impacting independence and safety in ADLs SPEECH: Objective: BP (!) 156/62 Pulse 58 Temp 98.8 F (37.1 C) (Oral) Resp 16 Ht 1.854 m (6' 1 ) Wt 97 kg (213 lb 13.5 oz) SpO2 97% BMI 28.21 kg/m GEN: well developed, well nourished, NAD HEENT: NCAT, PERRL, EOMI, mucous membranes pink and moist CV: RRR, no murmurs, rubs or gallops PULM: CTAB, no rales or rhonchi. Respirations WNL and unlabored ABD: soft, NT, ND, BS+ and equal NEURO: A&O x3. Currently knew year president and location follows commands and names objects sensation intact to light touch. MSK: Functional ROM upper and left lower extremity and distal right lower extremity unable to straight leg raise on right. Strength 5/5 upper and distal lower extremity able to straight leg raise on left unable to on right EXTREMITIES: No calf tenderness to palpation bilaterally. No edema BLEs SKIN: warm dry and intact with good turgor PSYCH: appropriately interactive. Affect WNL. Diagnostics: CBC: Recent Labs 02/26/25 0839 02/27/25 0915 WBC 9.8 9.3 RBC 4.32 3.97* HGB 12.5* 11.7* HCT 40.6* 37.6* MCV 94.0 94.7 RDW 14.3 14.1 PLT 174 153 BMP: Recent Labs 02/26/25 0839 02/26/25 1549 02/27/25 0915 NA 142 141 139 K 3.7 4.0 3.7 CL 104 104 103 CO2 PHOS -- 2.0* -- BUN 44* 43* 37* CREATININE 2.1* 2.0* 1.8* GLUCOSE 133* 133* 158* BNP: No results for input(s): BNP in the last 72 hours. PT/INR: No results for input(s): PROTIME , INR in the last 72 hours. APTT: No results for input(s): APTT in the last 72 hours. CARDIAC ENZYMES: No results for input(s): CKMB , CKMBINDEX , TROPONINT in the last 72 hours. Invalid input(s): CKTOTAL;3 troponins FASTING LIPID PANEL: Lab Results Component Value Date CHOL 135 02/25/2025 HDL 53 02/25/2025 TRIG 57 02/25/2025 LIVER PROFILE: Recent Labs 02/26/25 1549 AST 26 ALT 5* BILIDIR 0.1 BILITOT 0.3 ALKPHOS 81 Current Medications: Scheduled Meds: sodium chloride flush 5-40 mL IntraVENous 2 times per day levothyroxine 100 mcg Oral Daily liothyronine 5 mcg Oral Daily memantine 10 mg Oral BID sertraline 25 mg Oral Daily carbidopa-levodopa 1 tablet Oral TID sodium chloride flush 5-40 mL IntraVENous 2 times per day aspirin 81 mg Oral BID Continuous Infusions: sodium chloride 100 mL/hr at 02/25/25 1204 sodium chloride 35 mL/hr at 02/27/25 1627 sodium chloride PRN Meds:.sodium chloride flush, sodium chloride, ondansetron OR ondansetron, melatonin, acetaminophen OR acetaminophen, morphine, sodium chloride flush, sodium chloride, oxyCODONE OR oxyCODONE Impression: Fall with left femoral neck fracture status post left hip hemiarthroplasty 02/25 Parkinson-Sinemet CHF Coronary artery disease-aspirin CABG Hypertension/hyperlipidemia Pulmonary fibrosis CKD-creatinine 1.8-on IV fluid-nephrology follow Underlying dementia possibly secondary Parkinson's-Namenda Depression-Zoloft Hypothyroid-Synthroid/Cytomel Pain-morphine, Roxicodone Recommendations: Diagnosis: Left total hip hemiarthroplasty status post left femoral neck fracture complicated by Parkinson's and dementia Therapy: Has PT/OT needs able to take 4 feet forwards and backwards with two- person mod assist, maxassist otherwise, max assist ADLs-however patient was independent prior, and is weightbearing as tolerated, will ask speech to evaluate cognition Medical Necessity: As above Support: Lives alone in assisted living Rehab Recommendation: Would benefit from acute inpatient rehabilitation when medically ready In my opinion the patient will require acute inpatient rehabilitation and meets criteria for [facility] level care once medically stable per primary and consulting services. Anticipate he/she will be able to tolerate 3 hours of therapy per day or 900 minutes per week in rehabilitation. The patient requires multidisciplinary rehabilitation treatment including medical management by a PM&R physician, 24 hour rehabilitation nursing, Physical/Occupational therapy, +/- speech therapy, rehabilitation social work, and nutrition services. Patient and family also require education in post-hospital precautions and home exercise routine, adaptive techniques and deficit compensation strategies, strengthening and conditioning, equipment prescription and instructions in use. Provision of services in a lessintensive environment risks significant complications and more limited functional outcomes. DVT Prophylaxis: Aspirin twice daily per orthopedic This note is created with the assistance of a speech recognition program. While intending to generate a document that actually reflects the content of the visit, the document can still have some errors including those of syntax and sound a like substitutions which may escape proof reading. In such instances, actual meaning can be extrapolated by contextual diversion. * Ana Downing MD - 02/28/2025 7:31 AM EDT Surgical Progress Note POD: Patient doing fairly well Vitals: 02/28/25 0604 BP: (!) 156/62 Pulse: 58 Resp: 16 Temp: 98.8 F (37.1 C) SpO2: 97% Temp (24hrs), Av.6 F (37 C), Min:98.1 F (36.7 C), Max:98.9 F (37.2 C) Pain Control good No unusual nausea Exam: no change Lungs: No respiratory distress Labs reviewed: Labs: WBC/Hgb/Hct/Plts: 9.3/11.7/37.6/153 (02/27 915) BUN/Cr/glu/ALT/AST/amyl/lip: 37/1.8/--/--/--/--/-- (02/27 915) Na/K/Cl/CO2: 139/3.7/103/25 (02/27 915) I/O last 3 completed shifts: In: - Out: 1849 [Urine:1849] Assessment: Patient Active Problem List Diagnosis Left displaced femoral neck fracture (HCC) Fall ANIYA (acute kidney injury) Parkinson's disease (HCC) Coronary artery disease involving [place] coronary artery of [place] heart without angina pectoris Plan: See my orders Await discharge planning Ana Downing MD MD 02/28/2025 7:31 AM * Saul Crouch MD - 02/27/2025 3:28 PM EDT Nephrology Progress Note Subjective/ 84 y.o. year old male who we are seeing in consultation for acute kidney injury, displaced left femoral neck fracture left hip status post left hip hemiarthroplasty 02/25/2025 Patient seen and examined, denies any new complaints no nausea vomiting no chest pain shortness of breath Blood pressure stable Labs reviewed serum creatinine improving from 2.8 mg/dL to 1.9 mg/dL Patient does not have a Shell urine output recorded as 650 mL of urine external catheter Brief history Patient with past medical history of atherosclerotic coronary artery disease status post CABG, history of hyperlipidemia, essential hypertension, hypothyroidism, Parkinson's disease dementia with baseline disorientation former smoker, history of pulmonary fibrosis mild bilateral cardiac carotid artery disease, CKD stage III. Patient presented to the hospital with complaints of left hip pain afterhe recently sustained a fall, patient denies dizziness nausea vomiting chest pain X-ray showed displaced femoral neck fracture of left hip, patient underwent left hip hemiarthroplasty on 02/25/2025 Home medications reviewed, on amlodipine, torsemide Objective/ Vitals: 02/27/25 0400 02/27/25 0630 02/27/25 0815 02/27/25 1126 BP: (!) 140/63 139/74 (!) 129/56 Pulse: 60 72 67 Resp: 16 18 18 16 Temp: 98.9 F (37.2 C) 98.8 F (37.1 C) 98.9 F (37.2 C) TempSrc: Oral Oral Oral SpO2: 96% 97% 96% Weight: Height: 24HR INTAKE/OUTPUT: Intake/Output Summary (Last 24 hours) at 02/27/2025 1530 Last data filed at 02/27/2025 0413 Gross per 24 hour Intake -- Output 650 ml Net -650 ml Patient Vitals for the past 96 hrs (Last 3 readings): Weight 02/25/25 0044 90.7 kg (200 lb) Constitutional: Alert, awake, no apparent distress Cardiovascular: S1, S2 without m/r/g Respiratory: CTA B without w/r/r Abdomen: +bs, soft, nt Ext: Trace LE edema Data/ Recent Labs 02/25/25 0722 02/26/25 0839 02/27/25 0915 WBC 12.4* 9.8 9.3 HGB 13.7 12.5* 11.7* HCT 42.8 40.6* 37.6* MCV 92.0 94.0 94.7 PLT 219 174 153 Recent Labs 02/25/25 0054 02/25/25 0722 02/26/25 0839 02/26/25 1549 02/27/25 0915 NA 142 144 142 141 139 K 3.7 3.3* 3.7 4.0 3.7 CL 101 102 104 104 103 CO2 GLUCOSE 122* 127* 133* 133* 158* PHOS -- -- -- 2.0* -- MG 2.1 2.0 -- -- -- BUN 63* 61* 44* 43* 37* CREATININE 2.8* 2.7* 2.1* 2.0* 1.8* LABGLOM 21* 22* 30* 32* 36* Assessment/ Acute kidney injury on CKD, most likely secondary to prerenal azotemia improving with IV fluids andhydration use of torsemide, UA of 1+ protein 0 to RBCs serum creatinine peaked to 2.8 mg/dL serum creatinine improving CKD stage IIIb with baseline serum creatinine of 2.1 mg/dL noted in 2022, 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 Essential hypertension blood pressure well-controlled Plan/ 1-Taper IV fluids 2-strict I's and O's 3-avoid nephrotoxic agents Continue to hold torsemide Saul Crouch MD * Ana Downing MD - 02/27/2025 2:24 PM EDT Surgical Progress Note POD: 2 Patient doing well Vitals: 02/27/25 1126 BP: (!) 129/56 Pulse: 67 Resp: 16 Temp: 98.9 F (37.2 C) SpO2: 96% Temp (24hrs), Av.4 F (36.9 C), Min:97.6 F (36.4 C), Max:98.9 F (37.2 C) Pain Control fair No unusual nausea Exam: sleeping Lungs: No respiratory distress Labs reviewed: Labs: WBC/Hgb/Hct/Plts: 9.3/11.7/37.6/153 (02/27 915) BUN/Cr/glu/ALT/AST/amyl/lip: 37/1.8/--/--/--/--/-- (02/27 915) Na/K/Cl/CO2: 139/3.7/103/25 (02/27 915) I/O last 3 completed shifts: In: - Out: 1999 [Urine:1999] Assessment: Patient Active Problem List Diagnosis Left displaced femoral neck fracture (HCC) Fall ANIYA (acute kidney injury) Parkinson's disease (HCC) Coronary artery disease involving [place] coronary artery of [place] heart without angina pectoris Plan: See my orders Discharge planning Ana Downing MD MD 02/27/2025 2:25 PM * Davina Ho OTA - 02/27/2025 2:19 PM EDT [facility] INPATIENT OCCUPATIONAL THERAPY PROGRESS NOTE Date: 02/27/2025 Patient Name: Leanna Nguyễn Room: : 1940 (84 y.o.) Gender: male Referring Practitioner: Ana Downing MD Diagnosis: L hip Hemiarthroplasty Discharge Recommendations: Further Occupational Therapy is recommended upon facility discharge. OT Equipment Recommendations Equipment Needed: (CTA) Restrictions/Precautions Restrictions/Precautions Activity Level: Up as Tolerated;Up with Assist Required Braces or Orthoses?: No Implants Present? : Metal implants Lower Extremity Weight Bearing Restrictions Left Lower Extremity Weight Bearing: Weight Bearing As Tolerated Position Activity Restriction Hip Precautions: Posterior hip precautions;No hip flexion > 90 degrees;No sudden or extreme motions;No hip internal rotation;No hip external rotation;No ADduction Other Position/Activity Restrictions: Procedure: HIP HEMIARTHROPLASTY (Left: Hip) 02.25.[address] Downing-posterior precautions. Pt has history of parkinson's. Vitals O2 Device: None (Room air) Subjective Subjective Subjective: Pt agreeable to co-tx with KACY Chen Pain Pre-Pain: 7 Post-Pain: (does not rate at session end) Pain Location: Left;Hip Pain Interventions: Rest;Repositioning Objective Orientation Overall Orientation Status: Within Functional Limits Orientation Level: Oriented to place, Oriented to time, Oriented to person, Disoriented to situation (reporting he's here for his L foot) Cognition Overall Cognitive Status: Exceptions Arousal/Alertness: Appears intact Following Commands: Follows one step commands with repetition, Follows one step commands with increased time Attention Span: Appears intact Safety Judgement: Decreased awareness of need for assistance, Decreased awareness of need for safety Problem Solving: Assistance required to generate solutions, Assistance required to identify errors made Insights: Decreased awareness of deficits Initiation: Requires cues for some Sequencing: Requires cues for some Balance Balance Sitting Balance: Contact guard assistance (CGA/SBA while seated EOB ~ 10 mins) Standing Balance: Minimal assistance (MIN A x2) Standing Balance Time: 1 mins and 2 mins Activity: functional mobility/transfers Comment: with RW, Kal x2 Transfers/Mobility Bed mobility Rolling to Right: Substantial/Maximal assistance (To R side) Supine to Sit: Substantial/Maximal assistance (To right side of bed c bed rail) Sit to Supine: Substantial/Maximal assistance;2 Person assistance (Trunk and (B) LE assist.) Scooting: Dependent/Total (To EOB) Transfers Sit to stand: Maximum assistance;2 Person assistance Stand to sit: Maximum assistance;2 Person assistance Transfer Comments: cues for hand placement and technique, increased time and effort to achieve upright posture. Pt with forward flexed posture. Improved transfer to pull from RW vs pushing up from surface Functional Mobility Functional - Mobility Device: Rolling Walker Activity: Other Assist Level: Minimal assistance Functional Mobility Comments: pt with flexed posture and downward gaze, knees buckling and flexed throughout with max cues to maintain and upright posture with min carryover. pt completes ~4 steps forward/backwards and lateral side steps Patient Education Patient Education Education Given To: Patient Education Provided: Plan of Care, Role of Therapy, Precautions, Mobility Training, Fall Prevention Strategies, Transfer Training Education Provided Comments: OT POC, OT role, d/c planning, precautions Education Method: Demonstration, Verbal Barriers to Learning: None Education Outcome: Verbalized understanding, Demonstrated understanding, Continued education needed Goals Short Term Goals Time Frame for Short Term Goals: by discharge Short Term Goal 1: Pt will complete UB ADLs with set up A and Good safety with use of AE as needed Short Term Goal 2: Pt will complete functional transfers/mobility during self care tasks with Mod Ax1 and Good safety with use of least restrictive device Short Term Goal 3: Pt will tolerate standing 6+ minutes during functional activity of choice with Good safety Short Term Goal 4: Pt will verbalize/demonstrate Good understanding of home safety/fall prevention strategies to increase safety and independence with self care and mobility Short Term Goal 5: Pt will participate in 15+ minutes of therapeutic exercises/functional activities to increase safety and independence with self care and mobility Additional Goals?: Yes Short Term Goal 6: Pt will complete LB ADLs with Mod A and Good safety with use of AE as needed Short Term Goal 7: pt will complete bed mobility with modA with use of adaptive strategies/techniques as needed Occupational Therapy Plan Times Per Week: 5-7 (1-2x/day) Times Per Day: Twice a day Current Treatment Recommendations: Strengthening, Balance training, Functional mobility training, Endurance training, Pain management, Safety education & training, Patient/Caregiver education & training, Equipment evaluation, education, & procurement, Positioning, Self-Care / ADL, Co-Treatment Assessment Activity Tolerance Activity Tolerance: Patient Tolerated treatment well, Patient limited by pain Activity Tolerance Comments: fatigue noted after minimal physical activity Assessment Performance deficits / Impairments: Decreased functional mobility , Decreased ADL status, Decreasedstrength, Decreased endurance Assessment: Presents with strength L LE, decreased endurance and balance after fall and L Hemiarthroplasty. Pt pleasant and motivated to particiapte in therapy and improve function. At baseline pt isindependent for all of his mobility and self care at assisted living. Currently, pt requires assistance for all functional mobility and self care. Pt has potential to tolerate 3 hours of therapy in IPR setting to improve his mobility/independnece prior to returning back to assisted living facility. Treatment Diagnosis: impaired self care status d/t L hip hemiarthroplasty Prognosis: Good Decision Making: Medium Complexity Discharge Recommendations: Patient would benefit from continued therapy after discharge OT Equipment Recommendations Equipment Needed: (CTA) Safety Devices Type of Devices: Bed alarm in place, Call light within reach, Left in bed [facility] Daily Activities Inpatient [facility] Daily Activity - Inpatient How much help is needed for putting on and taking off regular lower body clothing?: Total How much help is needed for bathing (which includes washing, rinsing, drying)?: A Lot How much help is needed for toileting (which includes using toilet, bedpan, or urinal)?: Total How much help is needed for putting on and taking off regular upper body clothing?: A Little How much help is needed for taking care of personal grooming?: A Little How much help for eating meals?: None [facility] Inpatient Daily Activity Raw Score: 14 [facility] Inpatient ADL T-Scale Score : 33.39 ADL Inpatient CMS 0-100% Score: 59.67 ADL Inpatient CMS G-Code Modifier : CK OT Minutes OT Individual Minutes Time In: 1029 Time Out: 1059 Minutes: 30 Cosigned by Jane Aldridge OTR/L at 02/27/2025 3:50 PM EDT * Charmaine Anaya MD - 02/27/2025 11:39 AM EDT Images from the original note were not included. Cardiology Progress Note Jeremiah Lomas MD, Julianna Heller MD, JACK Anaya MD, Shira Cardenas MD, Windy Covington MD, Estella Hatch MD, Alex Sidhu MD, [facility] Date: 02/27/2025 Patient name: Leanna Nguyễn Date of admission: 02/25/2025 12:40 AM Date of : 1940 PCP: Pipe Jeffers MD Subjective: Patient status post hemiarthroplasty and states that his pain is a lot better. Patient feeling welland ready to work with physical therapy and outpatient therapy There were no acute events overnight, remained hemodynamically stable, denies chest pain, dyspnea, orthopnea or palpitations. Scheduled Meds: sodium chloride flush 5-40 mL IntraVENous 2 times per day levothyroxine 100 mcg Oral Daily liothyronine 5 mcg Oral Daily memantine 10 mg Oral BID sertraline 25 mg Oral Daily carbidopa-levodopa 1 tablet Oral TID sodium chloride flush 5-40 mL IntraVENous 2 times per day aspirin 81 mg Oral BID Continuous Infusions: sodium chloride 100 mL/hr at 02/25/25 1204 sodium chloride 75 mL/hr at 02/26/252013 sodium chloride Labs: CBC: Recent Labs 02/25/25 0722 02/26/25 0839 02/27/25 0915 WBC 12.4* 9.8 9.3 HGB 13.7 12.5* 11.7* PLT 219 174 153 BMP: Recent Labs 02/26/25 0839 02/26/25 1549 02/27/25 0915 NA 142 141 139 K 3.7 4.0 3.7 CL 104 104 103 CO2 BUN 44* 43* 37* CREATININE 2.1* 2.0* 1.8* GLUCOSE 133* 133* 158* Hepatic: Recent Labs 02/26/25 1549 AST 26 ALT 5* BILITOT 0.3 ALKPHOS 81 Troponin: No results for input(s): TROPONINI in the last 72 hours. BNP: No results for input(s): BNP in the last 72 hours. Lipids: Recent Labs 02/25/25 0722 CHOL 135 HDL 53 INR: No results for input(s): INR in the last 72 hours. Objective: Vitals: BP (!) 129/56 Pulse 67 Temp 98.9 F (37.2 C) (Oral) Resp 16 Ht 1.854 m (6' 1 ) Wt 90.7 kg (200 lb) SpO2 96% BMI 26.39 kg/m General appearance: awake, alert, in no apparent respiratory distress HEENT: Head: Normocephalic, no lesions, without obvious abnormality Neck: no JVD Lungs: clear to auscultation bilaterally, no basilar rales, no wheezing Heart: regular rate and rhythm, S1, S2 normal, no murmur, click, rub or gallop Abdomen: soft, non-tender; bowel sounds normal Extremities: No LE edema Neurologic: Mental status: Alert, oriented. Motor and sensory not done. Cardiac testing: EKG: Sinus bradycardia 57 bpm. AV block. Nonspecific T wave changes. Previous cardiac testing: Echo: Echocardiogram 07/02/2022 at [facility] Left ventricular systolic function normal with EF 55 to 60%. Diastolic function is indeterminate. Right ventricle is normal in size and systolic function. Biatrial enlargement. Mild to moderate tricuspid regurgitation. RVSP 54 mmHg, consistent with moderate pulmonary hypertension. IVC is dilated. Nuclear Stress Test: No results found for this or any previous visit. Cath: No results found for this or any previous visit. Impression: #hemiarthroplasty postop #CAD status post CABG #HLD #Hypertension #ANIYA #Hypothyroidism #Parkinson's Plan: Aspirin resumed. Lipid panel reviewed total cholesterol 135, LDL 71. Continue to monitor off cholesterol medication. Blood pressure well-controlled since Norvasc has been discontinued. Continue to monitor blood pressure. Given Parkinson's would allow mild permissive hypertension given elevated risk for orthostatic hypotension in this patient population. Continue to hold torsemide 10 mg given hypokalemia. Can consider Aldactone 12.5 mg daily if okay with nephrology Charmaine Anaya MD, FACP, [facility], FACC, [facility] Interventional Cardiology and Structural Heart Disease [facility] [place] * Malinda Leiva - 02/27/2025 9:31 AM EDT 02/27/25 0929 Encounter Summary Encounter Overview/Reason Palliative Care Service Provided For Patient Support System Unknown Last Encounter 02/27/25 Complexity of Encounter Low Begin Time 0830 End Time 0831 Total Time Calculated 1 min Palliative Care Type Palliative Care, Initial/Spiritual Assessment Assessment/Intervention/Outcome Assessment Unable to assess;Calm Outcome Refused/Declined (Patient polite but not receptive to conversation.) * Ruben Alba MD - 02/27/2025 8:06 AM EDT [facility] IN-PATIENT SERVICE [facility] Progress note Date: 02/27/2025 Patient name: Leanna Nguyễn Date of admission: 02/25/2025 12:40 AM Account: [id number] Date of : 1940 PCP: Pipe Jeffers MD Room: Code Status: Full Code Chief Complaint: Chief Complaint Patient presents with Hip Pain Left side following fall History Obtained From: patient History of Present Illness: The patient is a 84 y.o. Non- of /a male who presents with Hip Pain (Left side following fall) and he is admitted to the hospital for the management of Leanna Nguyễn is a 84 y.o. Non- of /a male with a history of CHF, CAD, CABG, hyperlipidemia, hypertension, altered mental status, syncope and collapse, pulmonary fibrosis, CKD, and dementia who presents with hip pain and is admitted to the hospital for the management of Hip fracture requiring operative repair, right, closed, initial encounter (HCC). According to patient, he was sitting on the toilet, reached over, and fell on the floor. The patient denied dizziness, vertigo, light headedness, vision changes, dysarthria, or dysphagia. He endorsesno weakness on one side or the other. Upon presentation to the ER the patient was disoriented which is his baseline. Lung sounds were clear to auscultation, heart sounds were S1-S2, and no signs of fall were noted, no abrasions, no contusions. 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 The patient's family wants palliative care consulted; the patient is a DNR CCA per his family The patient was mildly hypertensive upon arrival to the ER. His BUN was 63 and creatinine was 2.8. History of CKD noted. White blood cell count was 11.5, imaging was concerning for acute impacted subcapital left femoral neck fracture and soft tissue gas in the lateral chest wall . Both ER and internal medicine found no crepitus, and the pain did not complain of pain or tenderness to the area. Orthopedics consulted in the ER. PT. OT. Consult palliative care. Confirm patient CODE STATUS. NPO.Hold anticoagulation for now. Restart patient home medications once verified. Consider nephrology consult. Consider cardiology consult for possible surgery clearance. Past Medical History: No past medical history on file. Past Surgical History: Past Surgical History: Procedure Laterality Date HIP SURGERY Left 02/25/2025 HIP HEMIARTHROPLASTY performed by Ana Downing MD at [facility] OR Medications Prior to Admission: Prior to Admission medications Medication Sig Start Date End Date Taking? Authorizing Provider amLODIPine (NORVASC) 2.5 MG tablet Take 1 tablet by mouth daily Yes Ruth Howe MD aspirin 81 MG chewable tablet Take 1 tablet by mouth daily Yes Ruth Howe MD carbidopa-levodopa (SINEMET) 10-100 MG per tablet Take 1 tablet by mouth 3 times daily Yes Ruth Howe MD cephALEXin (KEFLEX) 500 MG capsule Take 1 capsule by mouth 2 times daily Yes Ruth Howe MD folic acid (FOLVITE) 400 MCG tablet Take 1 tablet by mouth daily Yes Ruth Howe MD levothyroxine (SYNTHROID) 100 MCG tablet Take 1 tablet by mouth Daily Yes Ruth Howe MD liothyronine (CYTOMEL) 5 MCG tablet Take 1 tablet by mouth daily Yes Ruth Howe MD memantine (NAMENDA) 10 MG tablet Take 1 tablet by mouth 2 times daily Yes Ruth Howe MD Multiple Vitamins-Minerals (THERAPEUTIC MULTIVITAMIN-MINERALS) tablet Take 1 tablet by mouth daily Yes Ruth Howe MD potassium chloride (KLOR-CON) 20 MEQ packet Take 10 mEq by mouth daily Yes Ruth Howe MD sennosides-docusate sodium (SENOKOT-S) 8.6-50 MG tablet Take 1 tablet by mouth daily Yes Ruth Howe MD sertraline (ZOLOFT) 25 MG tablet Take 1 tablet by mouth daily Yes Ruth Howe MD tolterodine (DETROL) 1 MG tablet Take 1 tablet by mouth 2 times daily Yes Ruth Howe MD torsemide (DEMADEX) 10 MG tablet Take 1 tablet by mouth daily Yes Ruth Howe MD vitamin B-12 (CYANOCOBALAMIN) 500 MCG tablet Take 1 tablet by mouth daily Yes Ruth Howe MD vitamin D 50 MCG (2000 UT) CAPS capsule Take 1 capsule by mouth daily Yes Ruth Howe MD Allergies: Patient has no known allergies. Social History: Tobacco: has no history on file for tobacco use. Alcohol: has no history on file for alcohol use. Drug Use: has no history on file for drug use. Family History: No family history on file. Review of Systems: Positive and Negative as described in HPI. CONSTITUTIONAL: negative for fevers, chills, sweats, fatigue, weight loss HEENT: negative for vision, hearing changes, runny nose, throat pain RESPIRATORY: negative for shortness of breath, cough, congestion, wheezing. CARDIOVASCULAR: negative for chest pain, palpitations. GASTROINTESTINAL: negative for nausea, vomiting, diarrhea, constipation, change in bowel habits, abdominal pain GENITOURINARY: negative for difficulty of urination, burning with urination, frequency INTEGUMENT: negative for rash, skin lesions, easy bruising HEMATOLOGIC/LYMPHATIC: negative for swelling/edema ALLERGIC/IMMUNOLOGIC: negative for urticaria , itching ENDOCRINE: negative increase in drinking, increase in urination, hot or cold intolerance MUSCULOSKELETAL: negative joint pains, muscle aches, swelling of joints NEUROLOGICAL: negative for headaches, dizziness, lightheadedness, numbness, pain, tingling extremities BEHAVIOR/PSYCH: negative for depression, anxiety Physical Exam: BP (!) 140/63 Pulse 60 Temp 98.9 F (37.2 C) (Oral) Resp 18 Ht 1.854 m (6' 1 ) Wt 90.7 kg (200 lb) SpO2 96% BMI 26.39 kg/m Temp (24hrs), Av.1 F (36.7 C), Min:97.6 F (36.4 C), Max:98.9 F (37.2 C) No results for input(s): POCGLU in the last 72 hours. Intake/Output Summary (Last 24 hours) at 02/27/2025 08 Last data filed at 02/27/2025 0413 Gross per 24 hour Intake -- Output 650 ml Net -650 ml General Appearance: alert, well appearing, and in no acute distress Mental status: Oriented times 2 head: normocephalic, atraumatic. Eye: no icterus, redness, pupils equal and reactive, extraocular eye movements intact, conjunctiva clear Ear: normal external ear, no discharge, hearing intact Nose: no drainage noted Mouth: mucous membranes moist Neck: supple, no carotid bruits, thyroid not palpable Lungs: Bilateral equal air entry, clear to ausculation, no wheezing, rales or rhonchi, normal effort Cardiovascular: normal rate, regular rhythm, no murmur, gallop, rub. Abdomen: Soft, nontender, nondistended, normal bowel sounds, no hepatomegaly or splenomegaly Neurologic: There are no new focal motor or sensory deficits, normal muscle tone and bulk, no abnormal sensation, normal speech, cranial nerves II through XII grossly intact Skin: No gross lesions, rashes, bruising or bleeding on exposed skin area Extremities: peripheral pulses palpable, no pedal edema or calf pain with palpation Psych: normal affect Investigations: Laboratory Testing: Recent Results (from the past 24 hours) Basic Metabolic Panel w/ Reflex to MG Collection Time: 02/26/25 8:39 AM Result Value Ref Range Sodium 142 136 - 145 mmol/L Potassium 3.7 3.7 - 5.3 mmol/L Chloride 104 98 - 107 mmol/L CO2 25 20 - 31 mmol/L Anion Gap 13 9 - 16 mmol/L Glucose 133 (H) 74 - 99 mg/dL BUN 44 (H) 8 - 23 mg/dL Creatinine 2.1 (H) 0.7 - 1.2 mg/dL Est, Glom Filt Rate 30 (L) >60 mL/min/1.73m2 Calcium 8.8 8.6 - 10.4 mg/dL CBC with auto differential Collection Time: 02/26/25 8:39 AM Result Value Ref Range WBC 9.8 3.5 - 11.0 k/uL RBC 4.32 4.21 - 5.77 m/uL Hemoglobin 12.5 (L) 13.5 - 17.5 g/dL Hematocrit 40.6 (L) 41.0 - 53.0 % MCV 94.0 80.0 - 100.0 fL MCH 28.9 26.0 - 34.0 pg MCHC 30.8 (L) 31.0 - 37.0 g/dL RDW 14.3 11.5 - 14.9 % Platelets 174 150 - 450 k/uL MPV 9.5 8.0 - 13.5 fL NRBC Automated 0.0 0 per 100 WBC Neutrophils % 73 (H) 36 - 66 % Lymphocytes % 14 (L) 24 - 44 % Monocytes % 11 3 - 12 % Eosinophils % 2 0 - 4 % Basophils % 0 0 - 2 % Immature Granulocytes % 0 0 % Neutrophils Absolute 7.12 1.50 - 8.10 k/uL Lymphocytes Absolute 1.36 1.10 - 3.70 k/uL Monocytes Absolute 1.03 0.10 - 1.20 k/uL Eosinophils Absolute 0.23 0.00 - 0.44 k/uL Basophils Absolute 0.04 0.00 - 0.20 k/uL Immature Granulocytes Absolute 0.04 0.00 - 0.30 k/uL Comprehensive Metabolic w/ Bili Profile w/ Reflex to MG Collection Time: 02/26/25 3:49 PM Result Value Ref Range Sodium 141 136 - 145 mmol/L Potassium 4.0 3.7 - 5.3 mmol/L Chloride 104 98 - 107 mmol/L CO2 25 20 - 31 mmol/L Anion Gap 12 9 - 16 mmol/L Glucose 133 (H) 74 - 99 mg/dL BUN 43 (H) 8 - 23 mg/dL Creatinine 2.0 (H) 0.7 - 1.2 mg/dL Est, Glom Filt Rate 32 (L) >60 mL/min/1.73m2 Calcium 8.8 8.6 - 10.4 mg/dL Total Protein 6.5 (L) 6.6 - 8.7 g/dL Albumin 3.4 (L) 3.5 - 5.2 g/dL Total Bilirubin 0.3 0.0 - 1.2 mg/dL Bilirubin, Direct 0.1 0.0 - 0.3 mg/dL Bilirubin, Indirect 0.2 0.0 - 1.0 mg/dL Alkaline Phosphatase 81 40 - 129 U/L ALT 5 (L) 10 - 50 U/L AST 26 10 - 50 U/L PTH, Intact Collection Time: 02/26/25 3:49 PM Result Value Ref Range Pth Intact 137.0 (H) 17.9 - 58.6 pg/mL Phosphorus Collection Time: 02/26/25 3:49 PM Result Value Ref Range Phosphorus 2.0 (L) 2.5 - 4.5 mg/dL Vitamin D 25 Hydroxy Collection Time: 02/26/25 3:49 PM Result Value Ref Range Vit D, 25-Hydroxy 34.7 30.0 - 100.0 ng/mL Imaging/Diagnostics: Assessment : Primary Problem Hip fracture requiring operative repair, right, closed, initial encounter ([facility]) Active Hospital Problems Diagnosis Date Noted ANIYA (acute kidney injury) [N17.9] 02/26/2025 Parkinson's disease ([facility]) [G20.A1] 02/26/2025 Coronary artery disease involving [place] coronary artery of [place] heart without angina pectoris [I25.10] 02/26/2025 Left displaced femoral neck fracture ([facility]) [S72.002A] 02/25/2025 Fall [W19.XXXA] 02/25/2025 Plan: Patient status Admit as inpatient in the [place] Patient is 84-year-old male multiple comorbidities including history of CAD status post CABG 2010, history of Parkinson's, CKD stage III, hypertension, hyperlipidemia presented to the ER with fall, as per patient it was a mechanical fall patient got up to the bathroom and slipped with a towel on the floor, Sustained left femoral neck fracture, s/p left hip hemiarthroplasty 02/25 Patient denies any dizziness lightheadedness denies hitting his head , lives in assisted living, oriented x 2 not oriented to year, patient states that he cannot go to the grocery store. Card withoutany chest pain or shortness of breath, not sure what medication he is taking, ANIYA, improving, nephrology has been consulted, UA unremarkable, continue gentle hydration, renal ultrasound pending X-ray of the chest showed soft tissue gas in left lateral chest wall possible axilla, CT of the chest pending Leukocytosis reactive?-Resolved DVT prophylaxis Hypothyroidism GERD TSH Parkinson's on senna 02/27 Patient seen and examined at bedside. No acute complaints. He is doing well. ANIYA continues to improve, renal US reviewed and is unremarkable, nephrology on board. Patient additionally under evaluation for possible rehab, PMNR on board. Continue current management. Dispo pending PMNR evaluation, planning in progress Consultations: IP CONSULT TO ORTHOPEDIC SURGERY IP CONSULT TO PALLIATIVE CARE IP CONSULT TO NEPHROLOGY IP CONSULT TO CARDIOLOGY IP CONSULT TO SOCIAL WORK IP CONSULT TO PHYSICAL MEDICINE REHAB Patient is admitted as inpatient status because of co-morbidities listed above, severity of signs and symptoms as outlined, requirement for current medical therapies and most importantly because of direct risk to patient if care not provided in a hospital setting. Ruben Alba MD 02/27/2025 8:06 AM Copy sent to Pipe Doe MD Please note that this chart was generated using voice recognition [employer] dictation software. Although every effort was made to ensure the accuracy of this automated physical education professor, some errors in physical education professor may have occurred. * Gina Raymundo RN - 02/26/2025 11:25 PM EDT Patient refused to be turned while laying in bed and ambulating. Patrol Man educated patient on the importance of being turned and ambulating. * Jane Escobar OT - 02/26/2025 1:39 PM EDT [facility] Occupational Therapy Evaluation Date: 02/26/25 Patient Name: Leanna Nguyễn Room: Account: [id number] : 1940 (84 y.o.) Gender: male Discharge Recommendations: The patient would benefit from an intensive level of therapy after discharge from the facility. They should be able to tolerate 3-hours of Combined OT/PT/ST over 5 days/week or at least 900 minutes of Combined Therapy over 7 days. OT Equipment Recommendations Equipment Needed: (CTA) Referring Practitioner: Ana Downing MD Diagnosis: L hip Hemiarthroplasty Treatment Diagnosis: impaired self care status d/t L hip hemiarthroplasty Past Medical History: has no past medical history on file. Past Surgical History: has a past surgical history that includes hip surgery (Left, 02/25/2025). Restrictions Restrictions/Precautions Restrictions/Precautions: Bed Alarm, Weight Bearing, Fall Risk, Surgical Protocols (WBAT LLE, posterior hip precautions) Activity Level: Up as Tolerated, Up with Assist Required Braces or Orthoses?: No Implants Present? : Metal implants (left hip hemiarthroplasty) Lower Extremity Weight Bearing Restrictions Left Lower Extremity Weight Bearing: Weight Bearing As Tolerated Position Activity Restriction Hip Precautions: Posterior hip precautions Other Position/Activity Restrictions: Procedure: HIP HEMIARTHROPLASTY (Left: Hip) 02.25.[address] Downing-posterior precautions. Pt has history of parkinson's. Vitals Vitals O2 Device: None (Room air) Subjective Subjective: Are you Pt pleasant and agreeable to OT/PT eval Comments: ok per RN Isidro for OT/PT eval Pain Pre-Pain: 6 Post-Pain: 4 Pain Location: Left, Hip, Foot Pain Interventions: Rest, Repositioning Social/Functional History Social/Functional History Lives With: Alone Type of Home: Assisted living ([facility]) Home Layout: One level Home Access: Level entry Bathroom Shower/Tub: Walk-in shower, Shower chair without back Bathroom Toilet: Standard Bathroom Equipment: Grab bars in shower, Shower chair, Grab bars around toilet Bathroom Accessibility: Walker accessible Home Equipment: Walker - Rolling Has the patient had two or more falls in the past year or any fall with injury in the past year?: Yes (fell while seated on toilet and reaching for a towel) Receives Help From: Other (Comment) (assisted living staff) Prior Level of Assist for ADLs: Independent Prior Level of Assist for Homemaking: Needs assistance Homemaking Responsibilities: No Prior Level of Assist for Ambulation: Independent household ambulator, with or without device Prior Level of Assist for Transfers: Independent Additional Comments: sleeps in flat bed Objective ADL Feeding: Modified independent Feeding Skilled Clinical Factors: drinking out of cup while seated in recliner Grooming: Supervision, Based on clinical judgement UE Bathing: Stand by assistance, Based on clinical judgement LE Bathing: Maximum assistance, Based on clinical judgement UE Dressing: Stand by assistance, Based on clinical judgement LE Dressing: Dependent/Total, Based on clinical judgement Putting On/Taking Off Footwear: Dependent/Total, Based on clinical judgement Toileting: Dependent/Total (external cath placed this date) Additional Comments: ADL scores based on clinical reasoning unless otherwise noted. Pt demonstrateslimitations in pain, balance, and cognition impacting independence and safety in ADLs Hand Dominance Hand Dominance: Right Orientation Overall Orientation Status: Impaired Orientation Level: Oriented to place, Oriented to time, Oriented to person, Disoriented to situation (reporting he's here for his L foot) Cognition Overall Cognitive Status: Exceptions Arousal/Alertness: Appears intact Following Commands: Follows one step commands with repetition, Follows one step commands with increased time Attention Span: Appears intact Safety Judgement: Decreased awareness of need for assistance, Decreased awareness of need for safety Problem Solving: Assistance required to generate solutions, Assistance required to identify errors made Insights: Decreased awareness of deficits Initiation: Requires cues for some Sequencing: Requires cues for some Sensation Overall Sensation Status: Impaired (pt reports tingling in L foot) Vision Vision: Within Functional Limits Hearing Hearing: Impaired Hearing Exceptions: Hard of hearing/hearing concerns UE Function LUE AROM (degrees) LUE AROM : WFL Left Hand AROM (degrees) Left Hand AROM: WFL Tone LUE LUE Tone: Normotonic LUE Strength L Hand General: 4/5 RUE AROM (degrees) RUE AROM : WFL Right Hand AROM (degrees) Right Hand AROM: WFL Tone RUE RUE Tone: Normotonic RUE Strength R Hand General: 4/5 Fine Motor Skills/Coordination Coordination Movements Are Fluid And Coordinated: Yes Bed Mobility Bed mobility Supine to Sit: 2 Person assistance, Partial/Moderate assistance (Assist needed for L LE progressionas well as trunk progression for supine<>ist. Pt utized bed rail on right side to assist coming out of bed towards right side.) Sit to Supine: Unable to assess (Pt left in recliner chair with B LE elevated.) Bed Mobility Comments: Increased time needed due to pain in his L LE durign mobility Balance Balance Sitting Balance: Stand by assistance Standing Balance: Minimal assistance (x2) Standing Balance Time: ~2min Activity: functional mobility Comment: with RWKal x2 Transfers Transfers Sit to stand: 2 Person assistance, Moderate assistance Stand to sit: 2 Person assistance, Moderate assistance Transfer Comments: cues for hand placement and technique, increased time and effort to achieve upright posture. Pt with forward flexed posture that his niece is reporting his baseline from the parkinsons Functional Mobility Functional - Mobility Device: Rolling Walker Activity: Other (bed > bedside chair) Assist Level: Maximum assistance (x2) Functional Mobility Comments: pt with flexed posture and downward gaze, knees buckling and flexed throughout with max cues to maintain and upright posture with min carryover. Taking minimal side steps to get to bedside chair Assessment Assessment Performance deficits / Impairments: Decreased functional mobility , Decreased ADL status, Decreasedstrength, Decreased endurance Assessment: Presents with strength L LE, decreased endurance and balance after fall and L Hemiarthroplasty. Pt pleasant and motivated to particiapte in therapy and improve function. At baseline pt isindependent for all of his mobility and self care at assisted living. Currently, pt requires assistance for all functional mobility and self care. Pt has potential to tolerate 3 hours of therapy in IPR setting to improve his mobility/independnece prior to returning back to assisted living facility. Treatment Diagnosis: impaired self care status d/t L hip hemiarthroplasty Prognosis: Good Decision Making: Medium Complexity Discharge Recommendations: Patient would benefit from continued therapy after discharge, Patient able to tolerate 3 hours of therapy per day Activity Tolerance Activity Tolerance: Patient Tolerated treatment well, Patient limited by pain Activity Tolerance Comments: fatigue noted after minimal physical activity Safety Devices Type of Devices: All fall risk precautions in place, Call light within reach, Chair alarm in place,Gait belt, Left in chair Patient Education Patient Education Education Given To: Patient, Family Education Provided: Plan of Care, Role of Therapy, Transfer Training, ADL Adaptive Strategies, FallPrevention Strategies, Mobility Training Education Provided Comments: OT POC, OT role, d/c planning, precautions Education Method: Demonstration, Verbal Barriers to Learning: None Education Outcome: Verbalized understanding, Demonstrated understanding, Continued education needed Functional Outcome Measures AM-PAC Daily Activity - Inpatient How much help is needed for putting on and taking off regular lower body clothing?: Total How much help is needed for bathing (which includes washing, rinsing, drying)?: A Lot How much help is needed for toileting (which includes using toilet, bedpan, or urinal)?: Total How much help is needed for putting on and taking off regular upper body clothing?: A Little How much help is needed for taking care of personal grooming?: A Little How much help for eating meals?: None AM-PAC Inpatient Daily Activity Raw Score: 14 AM-PAC Inpatient ADL T-Scale Score : 33.39 ADL Inpatient CMS 0-100% Score: 59.67 ADL Inpatient CMS G-Code Modifier : CK Goals Short Term Goals Time Frame for Short Term Goals: by discharge Short Term Goal 1: Pt will complete UB ADLs with set up A and Good safety with use of AE as needed Short Term Goal 2: Pt will complete functional transfers/mobility during self care tasks with Mod Ax1 and Good safety with use of least restrictive device Short Term Goal 3: Pt will tolerate standing 6+ minutes during functional activity of choice with Good safety Short Term Goal 4: Pt will verbalize/demonstrate Good understanding of home safety/fall prevention strategies to increase safety and independence with self care and mobility Short Term Goal 5: Pt will participate in 15+ minutes of therapeutic exercises/functional activities to increase safety and independence with self care and mobility Additional Goals?: Yes Short Term Goal 6: Pt will complete LB ADLs with Mod A and Good safety with use of AE as needed Short Term Goal 7: pt will complete bed mobility with modA with use of adaptive strategies/techniques as needed Plan Occupational Therapy Plan Times Per Week: 5-7 (2x per day) Times Per Day: Twice a day Current Treatment Recommendations: Strengthening, Balance training, Functional mobility training, Endurance training, Pain management, Safety education & training, Patient/Caregiver education & training, Equipment evaluation, education, & procurement, Positioning, Self-Care / ADL, Co-Treatment OT Individual Minutes OT Individual Minutes Time In: 0954 Time Out: 1048 Minutes: 54 Time Code Minutes Timed Code Treatment Minutes: 40 Minutes * Sridhar Simpson, PT - 02/26/2025 12:10 PM EDT Physical Therapy [facility] Physical Therapy Evaluation Date: 02/26/25 Patient Name: Leanna Nguyễn Room: Account: [id number] : 1940 (84 y.o.) Gender: male Discharge Recommendations: Discharge Recommendations: Patient able to tolerate 3 hours of therapy per day, Therapy recommendedat discharge PT D/C Equipment Equipment Needed: (Pt has rolling walker) Past Medical History: has no past medical history on file. Past Surgical History: has a past surgical history that includes hip surgery (Left, 02/25/2025). Subjective Subjective Subjective: OK per RN for PT/OT to see pt, pt eager to get moving, and wanting to ist up in a chair. Garry -pt's Niece angie stacy during therapy session. Reports ultimate goal for pt is to return to assisted living, but realizes pt needs skilled therapy first. Garry reports, pt is very active and motivated, and thinks SNF will not provide as much therapy as he needs. Wants to see if pt qualifies for ARU. DC shoe lay out planner Vianca notified. General Patient assessed for rehabilitation services?: Yes Additional Pertinent Hx: HISTORY OF PRESENT ILLNESS: This is an 84-year-old gentleman with history of atherosclerotic CAD s/p CABG, dyslipidemia, essential hypertension, hypothyroidism, Parkinson's disease, dementia with baseline disorientation, former smoker, pulmonary fibrosis, mild bilateral carotid artery disease, chronic kidney disease, chronic lower extremity edema, migraine headache and generalized osteoarthritis presented to the emergency room with complaints of left hip pain after he sustained a mechanical fall. Patient was sitting on the toilet, reached over and fell on the floor. He denies any loss of consciousness, dizziness or lightheadedness. Imaging shows displaced left femoral neck fracture, Dr Downing perform L Hip Hemiarthroplasty on 02/25/25. Pt allowed WBAT L LE for mobility. Family/Caregiver Present: (Pt's brother and Niece came to visit during therapy.) Referral Date : 02/25/25 Diagnosis: Left femoral neck fracture, S/P Left Hip hemiarthroplasty Follows Commands: Within Functional Limits Pain Pre-Pain: 6 Post-Pain: 4 Pain Location: Left, Hip, Foot Pain Interventions: Rest, Repositioning Social/Functional History Social/Functional History Lives With: Alone Type of Home: Assisted living ([facility] [place]) Home Layout: One level Home Access: Level entry Bathroom Shower/Tub: Walk-in shower, Shower chair without back Bathroom Toilet: Standard Bathroom Equipment: Grab bars in shower, Shower chair, Grab bars around toilet Bathroom Accessibility: Walker accessible Home Equipment: Walker - Rolling Has the patient had two or more falls in the past year or any fall with injury in the past year?: Yes (fell while seated on toilet and reaching for a towel) Receives Help From: Other (Comment) (assisted living staff) Prior Level of Assist for ADLs: Independent Prior Level of Assist for Homemaking: Needs assistance Homemaking Responsibilities: No Prior Level of Assist for Ambulation: Independent household ambulator, with or without device Prior Level of Assist for Transfers: Independent Additional Comments: sleeps in flat bed Restrictions Restrictions/Precautions Restrictions/Precautions: Bed Alarm, Weight Bearing, Fall Risk, Surgical Protocols (WBAT LLE, posterior hip precautions) Activity Level: Up as Tolerated, Up with Assist Required Braces or Orthoses?: No Implants Present? : Metal implants (left hip hemiarthroplasty) Lower Extremity Weight Bearing Restrictions Left Lower Extremity Weight Bearing: Weight Bearing As Tolerated Position Activity Restriction Hip Precautions: Posterior hip precautions, No hip flexion > 90 degrees, No sudden or extreme motions, No hip internal rotation, No hip external rotation, No ADduction Other Position/Activity Restrictions: Procedure: HIP HEMIARTHROPLASTY (Left: Hip) 02.25.[address] Downing-posterior precautions. Pt has history of parkinson's. Objective Transfers Transfers Sit to Stand: 2 Person Assistance, Partial/Moderate assistance Stand to Sit: 2 Person Assistance, Partial/Moderate assistance (assist required for eccentric lowering) Bed to Chair: Substantial/Maximal assistance, 2 Person Assistance (RW) Comment: Rolling walker used for stability Ambulation Ambulation WB Status: WBAT L LE Ambulation Surface: Level tile Device: Rolling Walker Assistance: 2 Person assistance, Substantial/Maximal assistance Quality of Gait: Pt with stooped psoture, cues to stand stright and to extend B Hips/knees. Pt required min ax 2 for static balance . Pt takes tiny steps to trun wiht RW bed to recliner, with B knees/hips flexed, making him unsteady during stepping. Gait Deviations: Decreased step length, Decreased step height, Slow Wendy Distance: 4 to 5 tiny steps Comments: Recommend Nursing staff use omar mauricio with 2 person assist for trasnfers at this time Stairs-NA Bed Mobility Bed mobility Supine to Sit: 2 Person assistance, Partial/Moderate assistance (Assist needed for L LE progressionas well as trunk progression for supine<>ist. Pt utized bed rail on right side to assist coming out of bed towards right side.) Sit to Supine: Unable to assess (Pt left in recliner chair with B LE elevated.) Bed Mobility Comments: Increased time needed due to pain in his L LE durign mobility Balance Balance Posture: Fair Sitting - Static: Fair, + Sitting - Dynamic: Fair, - Standing - Static: Fair, - (RW) Standing - Dynamic: Poor, + (RW) LE Function AROM RLE (degrees) RLE AROM: WFL Strength RLE Comment: 4-/5 at Hip, knee and ankle 4/5 PROM LLE (degrees) LLE General PROM: Impaired Left Hip ROM due to recent surgery, Knee fleion atleast 85 degress whileseated EOB, Ankle WFL. Strength LLE Comment: Hip NT due to recent surgery, Knee extension 2+/5, knee flexion 2+/5 UE Function See OT eval. PT Exercises Exercise Treatment: Ankle pumps, gentle Hip Abduction, Hip/knee flexion in supine (assisted). Pt stood with RW in front of recliner-min A x2 with RW, and perform 5 reps L LE swinging it forward and back. Observation/Palpation Posture: Fair Observation: Forward head, rounded shoulder-stooped posture, Slight edema noted NB LE, L LE > R LE Vitals Vitals O2 Device: None (Room air) Orientation Overall Orientation Status: Impaired Orientation Level: Oriented to place, Oriented to time, Oriented to person, Disoriented to situation (reporting he's here for his L foot) Cognition Overall Cognitive Status: Exceptions Arousal/Alertness: Appears intact Following Commands: Follows one step commands with repetition, Follows one step commands with increased time Attention Span: Appears intact Safety Judgement: Decreased awareness of need for assistance, Decreased awareness of need for safety Problem Solving: Assistance required to generate solutions, Assistance required to identify errors made Insights: Decreased awareness of deficits Initiation: Requires cues for some Sequencing: Requires cues for some Vision Vision: Within Functional Limits Hearing Hearing: Impaired Hearing Exceptions: Hard of hearing/hearing concerns Sensation Overall Sensation Status: Impaired (pt reports tingling in L foot) Assessment Assessment Assessment: Presents wit hdecreased ROM/strength L LE, decreased endurance and balance after fall and L Hemiarthroplasty. Pt pleasant and motivated to particiapte in therapy and improve function. At baseline pt independent for all of his mobility and self care at assisted living. At present pt requires assistance for all functional mobility and slefcare. Pt has potential to tolerated 3 hours of therapy in IPR setting to improve his mobility/independnece prior to returning back to assisted living facility. Performance Deficits/Impairments: Decreased functional mobility , Decreased ROM, Decreased strength, Decreased safe awareness, Decreased cognition, Decreased endurance, Decreased vision/visual deficit, Increased pain, Decreased posture Treatment Diagnosis: Difficulty walking Therapy Prognosis: Good Decision Making: Medium Complexity History: Hx of Parkinsons, demantia and heart failure. Discharge Recommendations: Patient able to tolerate 3 hours of therapy per day, Therapy recommendedat discharge Conditions Requiring Skilled Therapeutic Intervention Assessment: Presents wit hdecreased ROM/strength L LE, decreased endurance and balance after fall and L Hemiarthroplasty. Pt pleasant and motivated to particiapte in therapy and improve function. At baseline pt independent for all of his mobility and self care at assisted living. At present pt requires assistance for all functional mobility and slefcare. Pt has potential to tolerated 3 hours of therapy in IPR setting to improve his mobility/independnece prior to returning back to assisted living facility. Treatment Diagnosis: Difficulty walking Therapy Prognosis: Good Decision Making: Medium Complexity History: Hx of Parkinsons, demantia and heart failure. Discharge Recommendations: Patient able to tolerate 3 hours of therapy per day, Therapy recommendedat discharge Activity Tolerance Activity Tolerance: Patient limited by fatigue, Patient limited by pain, Patient limited by endurance Patient Education Patient Education Education Given To: Patient, Family (Brother and niece) Education Provided: Role of Therapy, Precautions, Transfer Training, Mobility Training, Fall Prevention Strategies Education Provided Comments: Posterior Hip precautions-will need to review each session at this time, safe transfers with rolling walker Education Method: Demonstration, Verbal, Teach Back Barriers to Learning: Cognition Education Outcome: Continued education needed, Verbalized understanding Functional Outcome Measures AM-PAC Basic Mobility - Inpatient How much help is needed turning from your back to your side while in a flat bed without using bedrails?: Total How much help is needed moving from lying on your back to sitting on the side of a flat bed withoutusing bedrails?: Total How much help is needed moving to and from a bed to a chair?: Total How much help is needed standing up from a chair using your arms?: Total How much help is needed walking in hospital room?: Total How much help is needed climbing 3-5 steps with a railing?: Total AM-[facility] Inpatient Mobility Raw Score : 6 AM-[facility] Inpatient T-Scale Score : 23.55 Mobility Inpatient CMS 0-100% Score: 100 Mobility Inpatient CMS G-Code Modifier : CN Goals Patient Goals Patient Goals : Be hema to move better. Short Term Goals Time Frame for Short Term Goals: 5 to 7 visits Short Term Goal 1: Supine>sit at mod A with HOB control and us eof be drail Short Term Goal 2: Sit>supine max A Short Term Goal 3: Sit<>stand from bed/chair at mod/max ax 1 Short Term Goal 4: Transfers with RW mod A x 2 Short Term Goal 5: Pt to ambulate with RW distance of 20 to 30 ft x2, min/mod A , chair to follow for safety. Short Term Goal 6: Pt to tolerate 10 to 15 reps of L SUE ROM/strengthening ex's to improve strengthand mobility for independence. Plan Physical Therapy Plan General Plan: Other (See Comment) (BID M -F, 1 to 2X/day on week -ends.) Specific Instructions for Next Treatment: co-tx with LOWE/OTR Current Treatment Recommendations: Strengthening, ROM, Balance training, Functional mobility training, Transfer training, Gait training, Stair training, Neuromuscular re-education, Pain management, Home exercise program, Safety education & training, Patient/Caregiver education & training, Equipment evaluation, education, & procurement, Positioning, Therapeutic activities Safety Devices Type of Devices: Left in chair, Gait belt, Call light within reach, Bed alarm in place, All fall risk precautions in place, Patient at risk for falls, Nurse notified PT Individual Minutes Time In: 953 Time Out: 1048 Minutes: 54 Time Code Minutes Timed Code Treatment Minutes: 40 Minutes Co-treatment with OT warranted secondary to decreased safety and independence requiring 2 skilled therapy professionals to address individual discipline's goals. PT addressing transfer/mobility training. * Ana Downing MD - 02/26/2025 11:13 AM EDT Surgical Progress Note POD: 1 Patient doing well Vitals: 02/26/25 0358 BP: (!) 120/50 Pulse: 66 Resp: 17 Temp: 97.8 F (36.6 C) SpO2: 92% Temp (24hrs), Av.8 F (36.6 C), Min:97.7 F (36.5 C), Max:97.9 F (36.6 C) Pain Control good No unusual nausea Exam: up in chair Lungs: No respiratory distress Labs reviewed: Labs: WBC/Hgb/Hct/Plts: 9.8/12.5/40.6/174 (02/26 839) BUN/Cr/glu/ALT/AST/amyl/lip: 44/2.1/--/--/--/--/-- (02/26 839) Na/K/Cl/CO2: 142/3.7/104/25 (02/26 839) I/O last 3 completed shifts: In: 650 [I.V.:650] Out: 1550 [Urine:1350; Blood:200] Assessment: Patient Active Problem List Diagnosis Left displaced femoral neck fracture (HCC) Fall Plan: See my orders Discharge planning Ana Downing MD MD 02/26/2025 11:13 AM * Shira Cardenas MD - 02/26/2025 9:46 AM EDT Images from the original note were not included. Cardiology Progress Note Jeremiah Lomas MD, Julianna Heller MD, JACK Anaya MD, Shira Cardenas MD, Windy Covington MD, Estella Hatch MD, Alex Sidhu MD, [facility] Date: 02/26/2025 Patient name: Leanna Nguyễn Date of admission: 02/25/2025 12:40 AM Date of : 1940 PCP: Pipe Jeffers MD Reason for Consult: Preoperative assessment Subjective: Patient status post hemiarthroplasty yesterday. No acute events. Patient feeling well. Patient ready to work with physical therapy and outpatient therapy Family at bedside. There were no acute events overnight, remained hemodynamically stable, denies chest pain, dyspnea, orthopnea or palpitations. Scheduled Meds: sodium chloride flush 5-40 mL IntraVENous 2 times per day levothyroxine 100 mcg Oral Daily liothyronine 5 mcg Oral Daily memantine 10 mg Oral BID sertraline 25 mg Oral Daily carbidopa-levodopa 1 tablet Oral TID sodium chloride flush 5-40 mL IntraVENous 2 times per day aspirin 81 mg Oral BID Continuous Infusions: sodium chloride 100 mL/hr at 02/25/25 1204 sodium chloride 75 mL/hr at 02/25/25 1603 sodium chloride Labs: CBC: Recent Labs 02/25/25 0248 02/25/25 0722 WBC 11.5* 12.4* HGB 13.3* 13.7 PLT 193 219 BMP: Recent Labs 02/25/25 0054 02/25/25 0722 NA 142 144 K 3.7 3.3* CL 101 102 CO2 23 25 BUN 63* 61* CREATININE 2.8* 2.7* GLUCOSE 122* 127* Hepatic: No results for input(s): AST , ALT , BILITOT , ALKPHOS in the last 72 hours. Invalid input(s): ALB Troponin: No results for input(s): TROPONINI in the last 72 hours. BNP: No results for input(s): BNP in the last 72 hours. Lipids: Recent Labs 02/25/25 0722 CHOL 135 HDL 53 INR: No results for input(s): INR in the last 72 hours. Objective: Vitals: BP (!) 120/50 Pulse 66 Temp 97.8 F (36.6 C) (Oral) Resp 17 Ht 1.854 m (6' 1 ) Wt 90.7 kg (200 lb) SpO2 92% BMI 26.39 kg/m General appearance: awake, alert, in no apparent respiratory distress HEENT: Head: Normocephalic, no lesions, without obvious abnormality Neck: no JVD Lungs: clear to auscultation bilaterally, no basilar rales, no wheezing Heart: regular rate and rhythm, S1, S2 normal, no murmur, click, rub or gallop Abdomen: soft, non-tender; bowel sounds normal Extremities: No LE edema Neurologic: Mental status: Alert, oriented. Motor and sensory not done. Cardiac testing: EKG: Sinus bradycardia 57 bpm. AV block. Nonspecific T wave changes. Previous cardiac testing: Echo: Echocardiogram 07/02/2022 at [facility] Left ventricular systolic function normal with EF 55 to 60%. Diastolic function is indeterminate. Right ventricle is normal in size and systolic function. Biatrial enlargement. Mild to moderate tricuspid regurgitation. RVSP 54 mmHg, consistent with moderate pulmonary hypertension. IVC is dilated. Nuclear Stress Test: No results found for this or any previous visit. Cath: No results found for this or any previous visit. Impression: #Preoperative risk assessment. Patient is now postop day 1. #CAD status post CABG #HLD #Hypertension #ANIYA #Hypothyroidism #Parkinson's Patient Active Problem List: Left displaced femoral neck fracture (HCC) Fall Plan: Aspirin resumed. Lipid panel reviewed total cholesterol 135, LDL 71. Continue to monitor off cholesterol medication. Blood pressure well-controlled since Norvasc has been discontinued. Continue to monitor blood pressure. Given Parkinson's would allow mild permissive hypertension given elevated risk for orthostatic hypotension in patient population. Replace potassium to maintain level above 4 magnesium 0 level above 2 Continue to hold torsemide 10 mg given hypokalemia. Can consider Aldactone 12.5 mg daily if okay with nephrology. Discussed with patient and family at bedside. Shira Cardenas MD Interventional Cardiology [facility] [place] * Ruben Alba MD - 02/26/2025 7:54 AM EDT [facility] IN-PATIENT SERVICE [facility] Progress note Date: 02/26/2025 Patient name: Leanna Nguyễn Date of admission: 02/25/2025 12:40 AM Account: [id number] Date of : 1940 PCP: Pipe Jeffers MD Room: Code Status: Full Code Chief Complaint: Chief Complaint Patient presents with Hip Pain Left side following fall History Obtained From: patient History of Present Illness: The patient is a 84 y.o. Non- of /a male who presents with Hip Pain (Left side following fall) and he is admitted to the hospital for the management of Leanna Nguyễn is a 84 y.o. Non- of /a male with a history of CHF, CAD, CABG, hyperlipidemia, hypertension, altered mental status, syncope and collapse, pulmonary fibrosis, CKD, and dementia who presents with hip pain and is admitted to the hospital for the management of Hip fracture requiring operative repair, right, closed, initial encounter (HCC). According to patient, he was sitting on the toilet, reached over, and fell on the floor. The patient denied dizziness, vertigo, light headedness, vision changes, dysarthria, or dysphagia. He endorsesno weakness on one side or the other. Upon presentation to the ER the patient was disoriented which is his baseline. Lung sounds were clear to auscultation, heart sounds were S1-S2, and no signs of fall were noted, no abrasions, no contusions. 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 The patient's family wants palliative care consulted; the patient is a DNR CCA per his family The patient was mildly hypertensive upon arrival to the ER. His BUN was 63 and creatinine was 2.8. History of CKD noted. White blood cell count was 11.5, imaging was concerning for acute impacted subcapital left femoral neck fracture and soft tissue gas in the lateral chest wall . Both ER and internal medicine found no crepitus, and the pain did not complain of pain or tenderness to the area. Orthopedics consulted in the ER. PT. OT. Consult palliative care. Confirm patient CODE STATUS. NPO.Hold anticoagulation for now. Restart patient home medications once verified. Consider nephrology consult. Consider cardiology consult for possible surgery clearance. Past Medical History: No past medical history on file. Past Surgical History: Past Surgical History: Procedure Laterality Date HIP SURGERY Left 02/25/2025 HIP HEMIARTHROPLASTY performed by Ana Downing MD at [facility] OR Medications Prior to Admission: Prior to Admission medications Medication Sig Start Date End Date Taking? Authorizing Provider amLODIPine (NORVASC) 2.5 MG tablet Take 1 tablet by mouth daily Yes ProviderRuth MD aspirin 81 MG chewable tablet Take 1 tablet by mouth daily Yes ProviderRuth MD carbidopa-levodopa (SINEMET) 10-100 MG per tablet Take 1 tablet by mouth 3 times daily Yes Ruth Howe MD cephALEXin (KEFLEX) 500 MG capsule Take 1 capsule by mouth 2 times daily Yes ProviderRuth MD folic acid (FOLVITE) 400 MCG tablet Take 1 tablet by mouth daily Yes ProviderRuth MD levothyroxine (SYNTHROID) 100 MCG tablet Take 1 tablet by mouth Daily Yes ProviderRuth MD liothyronine (CYTOMEL) 5 MCG tablet Take 1 tablet by mouth daily Yes ProviderRuth MD memantine (NAMENDA) 10 MG tablet Take 1 tablet by mouth 2 times daily Yes ProviderRuth MD Multiple Vitamins-Minerals (THERAPEUTIC MULTIVITAMIN-MINERALS) tablet Take 1 tablet by mouth daily Yes Ruth Howe MD potassium chloride (KLOR-CON) 20 MEQ packet Take 10 mEq by mouth daily Yes ProviderRuth MD sennosides-docusate sodium (SENOKOT-S) 8.6-50 MG tablet Take 1 tablet by mouth daily Yes ProviderRuth MD sertraline (ZOLOFT) 25 MG tablet Take 1 tablet by mouth daily Yes ProviderRuth MD tolterodine (DETROL) 1 MG tablet Take 1 tablet by mouth 2 times daily Yes ProviderRuth MD torsemide (DEMADEX) 10 MG tablet Take 1 tablet by mouth daily Yes ProviderRuth MD vitamin B-12 (CYANOCOBALAMIN) 500 MCG tablet Take 1 tablet by mouth daily Yes ProviderRuth MD vitamin D 50 MCG (2000 UT) CAPS capsule Take 1 capsule by mouth daily Yes Provider, MD Ruth Allergies: Patient has no known allergies. Social History: Tobacco: has no history on file for tobacco use. Alcohol: has no history on file for alcohol use. Drug Use: has no history on file for drug use. Family History: No family history on file. Review of Systems: Positive and Negative as described in HPI. CONSTITUTIONAL: negative for fevers, chills, sweats, fatigue, weight loss HEENT: negative for vision, hearing changes, runny nose, throat pain RESPIRATORY: negative for shortness of breath, cough, congestion, wheezing. CARDIOVASCULAR: negative for chest pain, palpitations. GASTROINTESTINAL: negative for nausea, vomiting, diarrhea, constipation, change in bowel habits, abdominal pain GENITOURINARY: negative for difficulty of urination, burning with urination, frequency INTEGUMENT: negative for rash, skin lesions, easy bruising HEMATOLOGIC/LYMPHATIC: negative for swelling/edema ALLERGIC/IMMUNOLOGIC: negative for urticaria , itching ENDOCRINE: negative increase in drinking, increase in urination, hot or cold intolerance MUSCULOSKELETAL: negative joint pains, muscle aches, swelling of joints NEUROLOGICAL: negative for headaches, dizziness, lightheadedness, numbness, pain, tingling extremities BEHAVIOR/PSYCH: negative for depression, anxiety Physical Exam: BP (!) 120/50 Pulse 66 Temp 97.8 F (36.6 C) (Oral) Resp 17 Ht 1.854 m (6' 1 ) Wt 90.7 kg(200 lb) SpO2 92% BMI 26.39 kg/m Temp (24hrs), Av.8 F (36.6 C), Min:97.7 F (36.5 C), Max:97.9 F (36.6 C) No results for input(s): POCGLU in the last 72 hours. Intake/Output Summary (Last 24 hours) at 02/26/2025 0750 Last data filed at 02/26/2025 0605 Gross per 24 hour Intake 650 ml Output 1550 ml Net -900 ml General Appearance: alert, well appearing, and in no acute distress Mental status: Oriented times 2 head: normocephalic, atraumatic. Eye: no icterus, redness, pupils equal and reactive, extraocular eye movements intact, conjunctiva clear Ear: normal external ear, no discharge, hearing intact Nose: no drainage noted Mouth: mucous membranes moist Neck: supple, no carotid bruits, thyroid not palpable Lungs: Bilateral equal air entry, clear to ausculation, no wheezing, rales or rhonchi, normal effort Cardiovascular: normal rate, regular rhythm, no murmur, gallop, rub. Abdomen: Soft, nontender, nondistended, normal bowel sounds, no hepatomegaly or splenomegaly Neurologic: There are no new focal motor or sensory deficits, normal muscle tone and bulk, no abnormal sensation, normal speech, cranial nerves II through XII grossly intact Skin: No gross lesions, rashes, bruising or bleeding on exposed skin area Extremities: peripheral pulses palpable, no pedal edema or calf pain with palpation Psych: normal affect Investigations: Laboratory Testing: Recent Results (from the past 24 hours) Urinalysis with Reflex to Culture Collection Time: 02/25/25 3:45 PM Specimen: Urine Result Value Ref Range Color, UA Yellow Yellow Turbidity UA Clear Clear Glucose, Ur NEGATIVE NEGATIVE mg/dL Bilirubin, Urine NEGATIVE NEGATIVE Ketones, Urine NEGATIVE NEGATIVE mg/dL Specific [place], UA 1.016 1.000 - 1.030 Urine Hgb SMALL (A) NEGATIVE pH, Urine 5.0 5.0 - 8.0 Protein, UA 1+ (A) NEGATIVE mg/dL Urobilinogen, Urine Normal 0.0 - 1.0 EU/dL Nitrite, Urine NEGATIVE NEGATIVE Leukocyte Esterase, Urine NEGATIVE NEGATIVE Microscopic Urinalysis Collection Time: 02/25/25 3:45 PM Result Value Ref Range WBC, UA 0 TO 2 (A) 0 TO 5 /HPF RBC, UA 0 TO 2 0 TO 2 /HPF Casts UA 0 TO 2 (A) None /LPF Epithelial Cells, UA 0 TO 2 /HPF Bacteria, UA None None Imaging/Diagnostics: Assessment : Primary Problem Hip fracture requiring operative repair, right, closed, initial encounter ([facility]) Active Hospital Problems Diagnosis Date Noted Left displaced femoral neck fracture ([facility]) [S72.002A] 02/25/2025 Fall [W19.XXXA] 02/25/2025 Plan: Patient status Admit as inpatient in the Progressive Unit/Step down Patient is 84-year-old male multiple comorbidities including history of CAD status post CABG 2010, history of Parkinson's, CKD stage III, hypertension, hyperlipidemia presented to the ER with fall, as per patient it was a mechanical fall patient got up to the bathroom and slipped with a towel on the floor, Sustained left femoral neck fracture, s/p left hip hemiarthroplasty 02/25 Patient denies any dizziness lightheadedness denies hitting his head , lives in assisted living, oriented x 2 not oriented to year, patient states that he cannot go to the grocery store. Card withoutany chest pain or shortness of breath, not sure what medication he is taking, ANIYA, improving, nephrology has been consulted, UA unremarkable, continue gentle hydration, renal ultrasound pending X-ray of the chest showed soft tissue gas in left lateral chest wall possible axilla, CT of the chest pending Leukocytosis reactive?-Resolved DVT prophylaxis Hypothyroidism GERD TSH Parkinson's on senna Consultations: IP CONSULT TO ORTHOPEDIC SURGERY IP CONSULT TO PALLIATIVE CARE IP CONSULT TO NEPHROLOGY IP CONSULT TO CARDIOLOGY IP CONSULT TO SOCIAL WORK Patient is admitted as inpatient status because of co-morbidities listed above, severity of signs and symptoms as outlined, requirement for current medical therapies and most importantly because of direct risk to patient if care not provided in a hospital setting. Ruben Alba MD 02/26/2025 7:54 AM Copy sent to Pipe Doe MD Please note that this chart was generated using voice recognition [employer] dictation software. Although every effort was made to ensure the accuracy of this automated physical education professor, some errors in physical education professor may have occurred. * Pinky Vargas RN - 02/25/2025 9:14 PM EDT Patient was able to sit at the side of the bed and stand; took one step and felt wobbly. Safely putpatient back in bed and patient resting comfortably. * Pinky Vargas RN - 02/25/2025 8:22 PM EDT [facility] called for update on patient and to ask if we needed anything. They are supposed to fax over med list. Update given all questions answered. * Pat Moran, PT - 02/25/2025 11:03 AM EDT Images from the original note were not included. Physical Therapy Physical Therapy Cancel Note DATE: 02/25/2025 NAME: Leanna Nguyễn : 1940 Patient not seen this date for Physical Therapy due to: Patient is not appropriate for PT evaluation/treatment at this time d/t pt awaiting hemiarthroplasty left hip due to femoral neck fracture. PT to continue to follow after surgery * Jane Escobar OT - 02/25/2025 10:58 AM EDT [facility] OCCUPATIONAL THERAPY MISSED TREATMENT NOTE INPATIENT Date: 02/25/25 Patient Name: Leanna Nguyễn Room: : 1940 (84 y.o.) Gender: male REASON FOR MISSED TREATMENT: Patient unable to participate - Pt with L femur fx after fall at facility. Per ortho, plan is for hemiarthroplasty L hip. Will continue to follow and eval as appropriate. 1007 * Theresa Grider APRN - COLLECT ON DELIVERY CLERK - 02/25/2025 6:10 AM EDT Images from the original note were not included. [facility] Internal Medicine Zheng Mariscal MD; Clint Scales MD; Ana Garcia MD; Roxanne Edward MD; Brenda Rudd MD [facility] Internal Medicine IN-PATIENT SERVICE [facility] Date: 02/25/2025 Patientname: Leanna Nguyễn Date of admission: 02/25/2025 12:40 AM Account: [id number] Date of : 1940 PCP: Pipe Jeffers MD Room: Code Status: Full Code Chief Complaint: Chief Complaint Patient presents with Hip Pain Left side following fall History of Present Illness: Leanna Nguyễn is a 84 y.o. Non- of /a male with a history of CHF, CAD, CABG, hyperlipidemia, hypertension, altered mental status, syncope and collapse, pulmonary fibrosis, CKD, and dementia who presents with hip pain and is admitted to the hospital for the management of Hip fracture requiring operative repair, right, closed, initial encounter (HCC). According to patient, he was sitting on the toilet, reached over, and fell on the floor. The patient denied dizziness, vertigo, light headedness, vision changes, dysarthria, or dysphagia. He endorsesno weakness on one side or the other. Upon presentation to the ER the patient was disoriented which is his baseline. Lung sounds were clear to auscultation, heart sounds were S1-S2, and no signs of fall were noted, no abrasions, no contusions. 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 The patient's family wants palliative care consulted; the patient is a DNR CCA per his family The patient was mildly hypertensive upon arrival to the ER. His BUN was 63 and creatinine was 2.8. History of CKD noted. White blood cell count was 11.5, imaging was concerning for acute impacted subcapital left femoral neck fracture and soft tissue gas in the lateral chest wall . Both ER and internal medicine found no crepitus, and the pain did not complain of pain or tenderness to the area. Orthopedics consulted in the ER. PT. OT. Consult palliative care. Confirm patient CODE STATUS. NPO.Hold anticoagulation for now. Restart patient home medications once verified. Consider nephrology consult. Consider cardiology consult for possible surgery clearance. Past Medical History: No past medical history on file. Past Surgical History: No past surgical history on file. Medications Prior to Admission: Prior to Admission medications Not on File Allergies: Patient has no known allergies. Social History: Tobacco: has no history on file for tobacco use. Alcohol: has no history on file for alcohol use. Drug Use: has no history on file for drug use. Family History: No family history on file. Investigations: Laboratory Testing: Recent Results (from the past 24 hours) Magnesium Collection Time: 02/25/25 12:54 AM Result Value Ref Range Magnesium 2.1 1.6 - 2.4 mg/dL Basic Metabolic Panel Collection Time: 02/25/25 12:54 AM Result Value Ref Range Sodium 142 136 - 145 mmol/L Potassium 3.7 3.7 - 5.3 mmol/L Chloride 101 98 - 107 mmol/L CO2 23 20 - 31 mmol/L Anion Gap 18 (H) 9 - 16 mmol/L Glucose 122 (H) 74 - 99 mg/dL BUN 63 (H) 8 - 23 mg/dL Creatinine 2.8 (H) 0.7 - 1.2 mg/dL Est, Glom Filt Rate 21 (L) >60 mL/min/1.73m2 Calcium 9.2 8.6 - 10.4 mg/dL CBC with Auto Differential Collection Time: 02/25/25 2:48 AM Result Value Ref Range WBC 11.5 (H) 3.5 - 11.0 k/uL RBC 4.52 4.21 - 5.77 m/uL Hemoglobin 13.3 (L) 13.5 - 17.5 g/dL Hematocrit 42.2 41.0 - 53.0 % MCV 93.4 80.0 - 100.0 fL MCH 29.4 26.0 - 34.0 pg MCHC 31.5 31.0 - 37.0 g/dL RDW 14.2 11.5 - 14.9 % Platelets 193 150 - 450 k/uL MPV 9.2 8.0 - 13.5 fL NRBC Automated 0.0 0 per 100 WBC Neutrophils % 75 (H) 36 - 66 % Lymphocytes % 16 (L) 24 - 44 % Monocytes % 8 3 - 12 % Eosinophils % 1 0 - 4 % Basophils % 0 0 - 2 % Immature Granulocytes % 0 0 % Neutrophils Absolute 8.56 (H) 1.50 - 8.10 k/uL Lymphocytes Absolute 1.80 1.10 - 3.70 k/uL Monocytes Absolute 0.95 0.10 - 1.20 k/uL Eosinophils Absolute 0.13 0.00 - 0.44 k/uL Basophils Absolute 0.05 0.00 - 0.20 k/uL Immature Granulocytes Absolute 0.03 0.00 - 0.30 k/uL Imaging/Diagnostics: CT CERVICAL SPINE WO CONTRAST Result Date: 02/25/2025 1. No evidence of cervical spine fracture. Minimal grade 1 anterolisthesis of C3 on C4, suspected to be chronic. If clinical concern persists, consider flexion- extension views. 2. Moderate to severe degenerative disc disease at C5-C6, C6- C7, C7-T1. 3. Moderate bilateral left neural foraminal narrowing at C5-C6, C6- C7, C7-T1. XR CHEST (SINGLE VIEW FRONTAL) Result Date: 02/25/2025 1. Soft tissue gas in the lateral left chest wall and possibly the left axilla could be related to a penetrating injury with no obvious underlying acute bony injury. 2. Pulmonary vascular congestion and borderline cardiomegaly. XR KNEE LEFT (3 VIEWS) Result Date: 02/25/2025 1. Acute impacted subcapital left femoral neck fracture. 2. No acute findings in the left knee. XR HIP 2-3 VW W PELVIS LEFT Result Date: 02/25/2025 1. Acute impacted subcapital left femoral neck fracture. 2. No acute findings in the left knee. CT HEAD WO CONTRAST Result Date: 02/25/2025 No acute findings in the head. Plan: Patient status inpatient in the Med/Surge TITUS Medina NP 02/25/2025 6:11 AM Please note that this chart was generated using voice recognition [employer] dictation software. Although every effort was made to ensure the accuracy of this automated physical education professor, some errors in physical education [place] [address]. * Maira Guthrie RN - 02/25/2025 5:39 AM EDT Patrol Man spoke with Arlet from [facility]. Patrol Man asked to have pt's medication list faxed to [phone]. She repeated fax number back to assembly instructions writer and stated she would fax it prem. TH documented in this encounterBon [facility] Hospital Discharge instructions* Discharge Instr - Activity* Alison Velez RN - 02/28/2025 2:15 PM EDT As tolerated * Discharge Instr - Diet* Alison Velez RN - 02/28/2025 2:15 PM EDT Good nutrition is important when healing from an illness, injury, or surgery. Follow any nutrition recommendations given to you during your hospital stay. If you were given an oral nutrition supplement while in the hospital, continue to take this supplement at home. You can take it with meals, in-between meals, and/or before bedtime. These supplements can be purchased at most local grocery stores, pharmacies, and [employer]. If you have any questions about your diet or nutrition, call the hospital and ask for the dietitian. Regular * Discharge Instr - MARYJANE* Alison Velez RN - 02/28/2025 11:47 AM EDT Continuity of Care Form Patient Name: Leanna Nguyễn : 1940 Admit date: 02/25/2025 Discharge date: 02/28/25 Code Status Order: Full Code Advance Directives: Admitting Physician: Zheng Mariscal MD PCP: Pipe Jeffers MD Discharging Nurse: RAVI Discharging Hospital Unit/Room#: 2058/2058-01 Discharging Unit Emergency Contact: Extended Emergency Contact Information Primary Emergency Contact: GARRY ARGUETA Relation: Niece/Nephew Secondary Emergency Contact: Krunal Nguyễn Mobile Relation: Brother/Sister Nipping Machine Operator needed? No Past Surgical History: Past Surgical History: Procedure Laterality Date HIP SURGERY Left 02/25/2025 HIP HEMIARTHROPLASTY performed by Ana Downing MD at [facility] OR Immunization History: There is no immunization history on file for this patient. Active Problems: Patient Active Problem List Diagnosis Code Left displaced femoral neck fracture (HCC) S72.002A Fall W19.XXXA ANIYA (acute kidney injury) N17.9 Parkinson's disease (HCC) G20.A1 Coronary artery disease involving [place] coronary artery of [place] heart without angina pectoris I25.10 Isolation/Infection: Isolation No Isolation Patient Infection Status None to display Nurse Assessment: Last Vital Signs: BP (!) 156/62 Pulse 58 Temp 98.8 F (37.1 C) (Oral) Resp 16 Ht 1.854 m (6'1 ) Wt 97 kg (213 lb 13.5 oz) SpO2 97% BMI 28.21 kg/m Last documented pain score (0-10 scale): Pain Level: 6 Last Weight: Wt Readings from Last 1 Encounters: 02/28/25 97 kg (213 lb 13.5 oz) Mental Status: alert and confused at times IV Access: - None Nursing Mobility/ADLs: Walking Dependent Transfer Dependent Bathing Dependent Dressing Dependent Toileting Dependent Feeding Assisted Brick Or Block Maker Dependent Med Delivery whole Wound Care Documentation and Therapy: Incision 02/25/25 Hip Left;Lateral (Active) Dressing Status Clean;Dry;Intact 02/28/25 0800 Incision Cleansed Not Cleansed 02/28/25 0800 Dressing/Treatment Other (comment) 02/28/25 0800 Incision Assessment Other (Comment) 02/28/25 0800 Drainage Amount None (dry) 02/28/25 0800 Odor None 02/28/25 0800 Ronit-incision Assessment Blanchable erythema 02/28/25 0800 Number of days: 2 Elimination: Continence: Bowel: No Bladder: No Urinary Catheter: None Colostomy/Ileostomy/Ileal Conduit: No Date of Last BM: 02/28/25 Intake/Output Summary (Last 24 hours) at 02/28/2025 1146 Last data filed at 02/28/2025 0604 Gross per 24 hour Intake 360 ml Output 1200 ml Net -840 ml I/O last 3 completed shifts: In: 360 [P.O.:360] Out: 1850 [Urine:1850] Safety Concerns: History of Falls (last 30 days) and At Risk for Falls Impairments/Disabilities: None Nutrition Therapy: Current Nutrition Therapy: - Oral Diet: General Routes of Feeding: Oral Liquids: No Restrictions Daily Fluid Restriction: no Last Modified Barium Swallow with Video (Video Swallowing Test): not done Treatments at the Time of Hospital Discharge: Respiratory Treatments: n/a Oxygen Therapy: is not on home oxygen therapy. Ventilator: - No ventilator support Rehab Therapies: Physical Therapy and Occupational Therapy Weight Bearing Status/Restrictions: Other Medical Equipment (for information only, NOT a DME order): Other Treatments: Patient's personal belongings (please select all that are sent with patient): None RN SIGNATURE: RAVI CASE MANAGEMENT/SOCIAL WORK SECTION Inpatient Status Date: 02/25/25 Readmission Risk Assessment Score: [facility] RISK OF UNPLANNED READMISSION 2.0 12.5 Total Score Discharging to Facility/ Agency Name: [facility] [address] [place] [address] Address: Phone: Fax: Dialysis Facility (if applicable) Name: Address: Dialysis Schedule: Phone: Fax: Vegetable Preparer/Building Attendant signature: PHYSICIAN SECTION Prognosis: {Prognosis:3151403000} Condition at Discharge: { Patient Condition:001366172} Rehab Potential (if transferring to Rehab): {Prognosis:0516719106} Recommended Labs or Other Treatments After Discharge: Physician Certification: I certify the above information and transfer of Leanna Nguyễn is necessaryfor the continuing treatment of the diagnosis listed and that he requires {Admit to Appropriate Level of Care:93182} for {GREATER/LESS:946743735} 30 days. Update Admission H&P: {CHP DME Changes in HandP:616589165} PHYSICIAN SIGNATURE: {Esignature:009069778} * Attachments The following attachments cannot be sent through Care Everywhere. * Acute Kidney Injury ([place]) * Fall Prevention ([place]) documented in this encounterBon [facility] Hospital course Narrative* Ruben Alba MD - 02/28/2025 1:15 PM EDT Images from the original note were not included. [facility] Internal Medicine Zheng Mariscal MD; Clint Scales MD, Roxanne Edward MD,Dr. Luc Rudd MD. ; Ana Garcia MD., Ruben Alba MD. [facility] Internal Medicine IN-PATIENT SERVICE [facility] Discharge Summary Patient ID: Leanna Nguyễn : 1940 ACCOUNT: [id number] Patient's PCP: Pipe Jeffers MD Admit Date: 02/25/2025 Discharge Date: 02/28/2025 Length of Stay: 3 Code Status: Full Code Admitting Physician: Zheng Mariscal MD Discharge Physician: Ruben Alba MD Active Discharge Diagnoses: Hospital Problem Lists: Principal Problem (Resolved): Hip fracture requiring operative repair, right, closed, initial encounter ([facility]) Active Problems: Left displaced femoral neck fracture (HCC) Fall ANIYA (acute kidney injury) Parkinson's disease ([facility]) Coronary artery disease involving [place] coronary artery of [place] heart without angina pectoris Admission Condition: Serious Discharged Condition: Stable Hospital Stay: Hospital Course: Leanna Nguyễn is a 84 y.o. male who was admitted for the management of Hip fracture requiring operative repair, right, closed, initial encounter ([facility]) , presented to ER with Hip Pain(Left side following fall) 84-year-old male with PMHx CHF, CAD s/p CABG, HLD, HTN, pulmonary fibrosis, CKD, and mild Parkinson's dementia presented with left hip pain after mechanical fall, slipping on towel. Left hip x-ray showed acute impacted subcapital left femoral neck fracture. Ortho was consulted in the ER, took patient for left hip hemiarthroplasty on 02/25. Postop he was noted to have ANIYA on CKD, nephrology was consulted, UA and renal ultrasound unremarkable, improved with gentle hydration. PMNR was consulted forevaluation for acute rehab, deemed patient a good candidate. Patient is doing well today he has no complaints and is being discharged in stable condition. 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 Intake/Output Summary (Last 24 hours) at 02/28/2025 1321 Last data filed at 02/28/2025 0604 Gross per 24 hour Intake 360 ml Output 1200 ml Net -840 ml Labs: Hematology: Recent Labs 02/26/25 0839 02/27/25 0915 WBC 9.8 9.3 RBC 4.32 3.97* HGB 12.5* 11.7* HCT 40.6* 37.6* MCV 94.0 94.7 MCH 28.9 29.5 MCHC 30.8* 31.1 RDW 14.3 14.1 PLT 174 153 MPV 9.5 9.3 Chemistry: Recent Labs 02/26/25 0839 02/26/25 1549 02/27/25 0915 NA 142 141 139 K 3.7 4.0 3.7 CL 104 104 103 CO2 GLUCOSE 133* 133* 158* BUN 44* 43* 37* CREATININE 2.1* 2.0* 1.8* ANIONGAP 13 12 11 LABGLOM 30* 32* 36* CALCIUM 8.8 8.8 8.6 PHOS -- 2.0* -- Recent Labs 02/26/25 1549 AST 26 ALT 5* ALKPHOS 81 BILITOT 0.3 BILIDIR 0.1 ABG:No results found for: POCPH , PHART , PH , POCPCO2 , DIN4WAZ , PCO2 , POCPO2 , PO2ART , PO2 , POCHCO3 , FDV8TMR , HCO3 , NBEA , PBEA , BEART , BE , THGBART , THB , NOM7DJE , UQAC4GFP , X6YXGFPK , O2SAT , FIO2 No results found for: SPECIAL No results found for: CULTURE Radiology: CT CHEST WO CONTRAST Result Date: 02/28/2025 1. No soft tissue gas. 2. 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 Recommend prompt, nonemergent pancreatic MRI. US RENAL LIMITED Result Date: 02/27/2025 Essentially unremarkable renal ultrasound. No hydronephrosis. Left kidney is not as well seen as the right. CT CERVICAL SPINE WO CONTRAST Result Date: 02/25/2025 1. No evidence of cervical spine fracture. Minimal grade 1 anterolisthesis of C3 on C4, suspected to be chronic. If clinical concern persists, consider flexion- extension views. 2. Moderate to severe degenerative disc disease at C5-C6, C6- C7, C7-T1. 3. Moderate bilateral left neural foraminal narrowing at C5-C6, C6- C7, C7-T1. XR HIP LEFT (1 VIEW) Result Date: 02/25/2025 1. Status post left hip Hemiarthroplasty with no hardware complications. XR CHEST (SINGLE VIEW FRONTAL) Result Date: 02/25/2025 1. Soft tissue gas in the lateral left chest wall and possibly the left axilla could be related to a penetrating injury with no obvious underlying acute bony injury. 2. Pulmonary vascular congestion and borderline cardiomegaly. XR KNEE LEFT (3 VIEWS) Result Date: 02/25/2025 1. Acute impacted subcapital left femoral neck fracture. 2. No acute findings in the left knee. XR HIP 2-3 VW W PELVIS LEFT Result Date: 02/25/2025 1. Acute impacted subcapital left femoral neck fracture. 2. No acute findings in the left knee. CT HEAD WO CONTRAST Result Date: 02/25/2025 No acute findings in the head. Consultations: Consults: Final Specialist Recommendations/Findings: IP CONSULT TO ORTHOPEDIC SURGERY IP CONSULT TO PALLIATIVE CARE IP CONSULT TO NEPHROLOGY IP CONSULT TO CARDIOLOGY IP CONSULT TO SOCIAL WORK IP CONSULT TO PHYSICAL MEDICINE REHAB IP CONSULT TO DIETITIAN IP CONSULT TO SOCIAL WORK IP CONSULT TO INTERNAL MEDICINE IP CONSULT TO NEPHROLOGY The patient was seen and examined on day of discharge and this discharge summary is in conjunction with any daily progress note from day of discharge. Discharge plan: Disposition: Discharge/Readmit Physician [facility] [address] [facility] [address] Requiring Further Evaluation/Follow Up POST HOSPITALIZATION/Incidental Findings: Diet: regular diet Activity: As tolerated Instructions to Patient: -Continue to work with PT/OT Discharge Medications: Medication List ASK your doctor about these medications amLODIPine 2.5 MG tablet Commonly known as: NORVASC aspirin 81 MG chewable tablet carbidopa-levodopa 10-100 MG per tablet Commonly known as: SINEMET cephALEXin 500 MG capsule Commonly known as: KEFLEX folic acid 400 MCG tablet Commonly known as: FOLVITE levothyroxine 100 MCG tablet Commonly known as: SYNTHROID liothyronine 5 MCG tablet Commonly known as: CYTOMEL memantine 10 MG tablet Commonly known as: NAMENDA potassium chloride 20 MEQ packet Commonly known as: KLOR-CON sennosides-docusate sodium 8.6-50 MG tablet Commonly known as: SENOKOT-S sertraline 25 MG tablet Commonly known as: ZOLOFT therapeutic multivitamin-minerals tablet tolterodine 1 MG tablet Commonly known as: DETROL torsemide 10 MG tablet Commonly known as: DEMADEX vitamin B-12 500 MCG tablet Commonly known as: CYANOCOBALAMIN vitamin D 50 MCG (2000 UT) Caps capsule Commonly known as: CHOLECALCIFEROL No discharge procedures on file. Time Spent on discharge is 31 mins in patient examination, evaluation, counseling as well as medication reconciliation, prescriptions for required medications, discharge plan and follow up. Electronically signed by Ruben Alba MD 02/28/2025 1:21 PM Thank you Pipe Doe MD for the opportunity to be involved in this patient's care. Please note that this chart was generated using voice recognition [employer] dictation software. Although every effort was made to ensure the accuracy of this automated physical education professor, some errors in physical education professor may have occurred. documented in this encounterBon [facility] History of Present illness Narrative* Lydia Burris MD - 09/13/2024 3:15 PM EDTAssociated Problem(s): Cognitive decline (Continue current regimen.) * Lydia Burris MD - 09/13/2024 3:15 PM EDTAssociated Problem(s): Parkinson disease (CMS/HCC) Incr Sinemet to tid. Note that protein in stomach will decrease absorption (therefore, give at least 45 min before or 2 h after food). * Lydia Burris MD - 09/13/2024 3:15 PM EDTAssociated Problem(s): Polyneuropathy Continue B-complex. Minimally high B12 is NOT problematic. * Lydia Burris MD - 09/13/2024 3:15 PM EDT Images from the original note were not included. Outpatient Progress Note Patient: Leanna Nguyễn Dept: Neurology : 1940 Appt Date: 09/13/2024 Prev Appt: 07/19/2024 Chief Complaint Patient presents with cognitive decline Appointment Note -- 8 wk f/u (MRI, EEG [place] 09/06) Assessment and Plan - Assessment & [...] in about 6 months (around 03/16/2025), or COLLECT ON DELIVERY CLERK. Lab Frequency Next Occurrence History of Present [...] (09/2024, Lesli/Randal) - gen slow Labs - [id number]/35H/521H/_ Surgery Failed Dx PD Tx Sinemet 25/100 bid AEs Hx Somewhat improved. Onset Semeiology Imaging Testing Surgery Failed Physical Exam - General appearance, mentation, extraocular movements, facial strength and movement, hearing, upper and lower extremity strength and tone, sensation to gross testing, coordination, and gait are normalor at baseline unless noted below. HEENT - [...] cross the exam room in a straight line... NOT magnetic . Vestib - ___, unchanged: [...] capsule 1 capsule 1 (one) time each dayat the same time. No facility-administered encounter medications on file as of 09/13/2024. Lydia Burris M.D. [facility] Neurology ? [address] ? [place], [place] [address] ? ? fax Neurology ? Clinical Neurophysiology ? Epilepsy ? Sleep Disorders ? Clinical Informatics documented in this encounterLakeland Regional [id number] History of Present illness Narrative* Lydia Burris MD - 07/19/2024 4:00 PM ESTAssociated Problem(s): Cognitive decline Add memantine 10 -> bid. Then donepezil 10, titrate to 15 then 20 if tolerated (i.e. no GI issues), may split doses to bid to improve tolerance, remain at highest tolerated dose. MR brain, eval for disproportion of ventricles vs atrophy. Compare vs 2020 study. *Transfer images to [facility].* EEG 1 hour ([place]). * Lydia Burris MD - 07/19/2024 4:00 PM ESTAssociated Problem(s): Parkinson disease ([facility]) Add Sinemet 25/100 po qam x 1 wee, then bid (1st AM & 3-4 PM). Must take on empty stomach (45 min before meal or 2 h after.) * Lydia Burris MD - 07/19/2024 4:00 PM ESTAssociated Problem(s): Polyneuropathy Neuropathy panel. * Lydia Burris MD - 07/19/2024 4:00 PM EST Images from the original note were not included. Outpatient Progress Note Patient: Leanna Nguyễn Dept: Neurology : 1940 Appt Date: 07/19/2024 [...] encounter. Follow-Up - Follow up 6-8 w MD. Lab Frequency Next Occurrence History of Present [...] to gross testing, coordination, and gait are normalor at baseline unless noted below. HEENT - [...] orig: Somewhat unsteady, knees slightly bent, does notcross the exam room in a straight line [...] file as of 07/19/2024. Lydia Burris M.D. [facility] Neu[facility] ? [address] ? [place], [place] [address] ? ? fax Neurology ? Clinical Neurophysiology ? Epilepsy ? Sleep Disorders ? Clinical Informatics documented in this encounterLakeland Regional [id number] Miscellaneous Notes* Telephone Encounter - Soniya Shay LPN - 06/16/2024 3:07 PM EST Received the ordered urine culture results and US report from Noris Pinon RN from [facility] where the Pt. Resides. Culture results were very dark and hard to read. This nurse contacted the facility to see if there was any way to email a copy of this to see if it was easier to read. She stated she would try to email it to this nurse. Email was given. Awaiting the results. * Telephone Encounter - Soniya Shay LPN - 06/16/2024 3:07 PM EST Received emailed culture results. Culture results and US report sent to Dr Edmund MD. Received new orders for Pt. For ATB. New order was called into Noris Bolaños RN. New order for ATB per Dr Edmund MD: If sensitive to Amoxicillin/Ampicillin 500 mg PO BID x 7 days. Order faxed to [facility] at [phone] as well. Nothing further at this time. documented in this encounterAdena [facility]12-[facility] Telephone encounter Note* Telephone Encounter - Soniya Shay LPN - 06/16/2024 3:07 PM EST Received the ordered urine culture results and US report from Noris Pinon RN from [facility] where the Pt. Resides. Culture results were very dark and hard to read. This nurse contacted the facility to see if there was any way to email a copy of this to see if it was easier to read. She stated she would try to email it to this nurse. Email was given. Awaiting the results. [facility] Telephone encounter Note* Telephone Encounter - Soniya Shay LPN - 06/16/2024 3:07 PM EST Received emailed culture results. Culture results and US report sent to Dr Edmund MD. Received new orders for Pt. For ATB. New order was called into Noris Bolaños RN. New order for ATB per Dr Edmund MD: If sensitive to Amoxicillin/Ampicillin 500 mg PO BID x 7 days. Order faxed to [facility] at [phone] as well. Nothing further at this time. [facility]12-04-20[facility] Miscellaneous Notes* Telephone Encounter - Chadd Gonzalez MD - 06/08/2024 4:[address] [facility] bladder solution. [place]. Diagnosis urinary incontinence documented in this encounterAdena [facility] Center12-04-2024 Telephone encounter Note* Telephone Encounter - Chadd Gonzalez MD - 06/08/2024 4:[address] [facility] bladder solution. [place]. Diagnosis urinary incontinence [facility]12-04-[facility] History of Present illness Narrative* Chadd Gonzalez MD - 06/08/2024 3:30 PM EST Images from the original note were not included. [address] [place] [address] A [facility] [id number] Patient: Leanna Nguyễn Date of : 1940 Encounter Date: 06/08/2024 [...] , EXTPOCUBAC , EXTPOCUTREP , EXTPOCUPH , EXTPOCUL EE in the last 72 hours. Last BUN [...] past medical history, past social history, past surgicalhistory and problem list. Past Medical History: Diagnosis Date Abdominal hernia without obstruction and without gangrene Altered mental status, unspecified Chronic migraine without aura Essential hypertension Generalized muscle weakness Hallucinations, unspecified Hyperlipidemia Hypothyroidism Pulmonary fibrosis ([facility]) Unspecified thoracic, thoracolumbar and lumbosacral intervertebral disc [...] mouth in the morning and 1 tablet (2mg total) before bedtime. No current facility-administered medications [...] denies change in appetite, weight loss or gain,malaise (depression), chills, fever, or diaphoresis (sweating). Eyes: Patient denies vision changes or diplopia (double vision). Ears, Nose, Nose and Throat: Hearing Loss Respiratory: Patient denies dyspnea (shortness of breath), cough, hemotypsis (blood in sputum), andwheezing. Cardiovascular: Patient denies chest pain, palpitations, and [...] ureter - [facility] [place] Urinary incontinence, unspecified type - [facility] - [place], [place] - Ultrasound retroperitoneal complete; Future - Urine [...] without great benefit. Plan: Renal bladder ultrasound. [facility] bladder solution. Digital rectal exam at the time of cystoscopy. Follow-up: Urine culture was ordered for his nursing care facility. Patient should have a renal bladder ultrasound through [facility]. Setup OR. Chadd Gonzalez MD I, Chadd [...] you for your understanding. documented in this encounterAdena Pike Medical Center11-25-2024 NoteUT Cardiology - [facility] Subjective Leanna Nguyễn is a 83 y.o. year old male [...] (premature atrial contraction) Coronary artery disease involving [place] coronary artery of [place] heart without angina pectoris Hx of CABG [...] shortness of breath. He lives in a assisted. His blood pressure is elevated today. Review [...] Disp: , Rfl: lev (more content not included)...[facility]12-20-2023 NoteUT Cardiology - [facility] Subjective Leanna Nguyễn is a 82 y.o. year old male patient being seen for 6 mo follow up CAD, hypertension, chronic diastolic heart failure, and carotid artery stenosis. Had routine labs in Mar 2023. Doing well from cardiac standpoint. No recurrent syncope. Patient Active Problem List Diagnosis Chronic diastolic heart failure (CMS/HCC) PAC (premature atrial contraction) Coronary artery disease involving [place] coronary artery of [place] heart without angina pectoris Hx of CABG [...] Disp: , Rfl: multivitamin (more content not included)...[facility] 03-23-2023 NoteHNO ID: [id number] Author: Jodi Banerjee, DO Service: ? Author Type: Physician Type: Progress Notes Filed: 03/23/2023 2:41 PM Note Text: [facility] [facility] [place] Follow-up visit March 23, 2023 HPI: Overall Mr. Nguyễn, who is accompanied by his brother and [...] encounter he has moved and low lives [facility]. He states he does not [...] mainly his brother. He has seen by developmental therapist in 01/2023 with suggestion that he get a hearing aide but he refuses. After his last encounter he has followed up with cardiology concerning his heart rate that was auscultated on last encounter. They checked his heart rhythm and thought it was appropriate. This was as via physician in [place]. They deny other changes to his health and/or medications except for the above since our last encounter. PAST MEDICAL HISTORY Diagnosis Date Arthritis Carotid stenosis Coronary artery disease Coronary atherosclerosis of unspecified type of vessel, brevig mission or graft 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 Dyslipidemia Hypertension Hypertension Hypothyroid Lumbar disc disease Unspecified hypothyroidism Hypothyroidism PAST SURGICAL HISTORY Procedure Laterality Date PAST SURGICAL HISTORY OF CABG times 6 left internal thoracic artery to the ozz-kk-pfuuqh left anterior descending artery, reverse saphenous vein [...] tablet Take 5 (more content not included)... [facility]09-18-2023 Miscellaneous Notes* Telephone Encounter - Terri Garcia - 03/23/2023 3:27 PM EDT 03/23/2023 After visit Summary faxed to Dr Jeffers with confirmation received. PSS forgot to have pt complete release of information forms. This nurse has placed 2 copies in US mail for pt to complete and take to facility to release information to our office. POA was advised via voice message to send a LiveTop msg if he had any further question. Terri Ricklucía Assistant Professor Of Criminal Justice documented in this [facility]Bl[facility] Inst[facility]* Patient Instructions* Jodi Banerjee DO - 03/23/2023 2:40 PM EDT Please sign records release for last blood test results. documented in this encounterBl[facility] of Present illness Narrative* Jodi Banerjee DO - 03/23/2023 1:46 PM EDT [facility] [place] Follow-up visit March 23, 2023 HPI: Overall Mr. Nguyễn, who is accompanied by his brother and [...] his phone, checking messages, etc... He does notfeel he has this issue. He may not answer his phone if he is doing something. He tends to flip questions back on the person asking them. Since our last encounter he has moved and low lives [facility]. He states he does not like it as he has limited input with family. His brother will come and take him out to dinner or to family events. Some of his other relatives do not come around that much. The activities they have atthe facility he may take part in some things such as Bingo. They do no let him push the others in wheelchairs but he likes to help. He can play cards with some of the other residents. He himself doesnot feel he is forgetful. He does not feel he repeats himself, his brother states he does. He states he stays busy in some of the activities they have for him, in prayer, and some exercises.He states he is now out of therapy. He can watch traffic and others going by. His meals are provided to him and he states he eats regularly. He states he does not like the food.He has a refrigerator he can keep some things in. His protein intake. He feels he is sleeping well.He does not think he snores, gasps for [...] There has been an issue with one ofthe resident's coming to his place and he locks the door. At times they may get in each other's faces if she did not want to do what he wants to when he wants to. They were called by management tianathis. He will argue much of the time with his brother with many things often thrown back at the person suggesting them, mainly his brother. He has seen by developmental therapist in 01/2023 with suggestion that he get a hearing aide but he refuses. After his last encounter he has followed up with cardiology concerning his heart rate that was auscultated on last encounter. They checked his heart rhythm and thought it was appropriate. This was dannya physician in [place]. They deny other changes to his health and/or medications except for the above since our last encounter. PAST MEDICAL HISTORY Diagnosis Date Arthritis Carotid stenosis Coronary artery disease Coronary atherosclerosis of unspecified type of vessel, brevig mission or graft 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 Dyslipidemia Hypertension Hypertension Hypothyroid Lumbar disc disease Unspecified hypothyroidism Hypothyroidism PAST SURGICAL HISTORY Procedure Laterality Date PAST SURGICAL HISTORY OF CABG times 6 left internal thoracic artery to the qsn-ns-dsnwpf left anterior descending artery, reverse saphenous vein [...] intact bilaterally to light touch V1-3, hearing intactbilaterally, shoulder shrug is symmetric Motor exam shows 5/5 strength symmetric through the upper and lower extremities in all groups tested Sensory intact to light touch in all extremities. Deep tendon reflexes are symmetric at the biceps, brachioradialis, triceps, patella, and Achilles bilaterally Azar's responses are both flexion. Coordination: No dysmetria [...] the treatments for such both medication and non- medication approaches. Thisdiscussion included the medications currently available for memory and that these medications do not improve memory but rather are meant to help slow the progression of memory loss over time. After di scussion he/they elects to hold on medication for this issue at this time. Discussed option for medication such as depkote (divalproex) to help in mood- they will discuss and let me know if he electsto start this. 4. Further discussed that he have hearing evaluation noted poor hearing noted in office. 5. Reviewed blood test results from 08/27/2022 including for syphilis (negative) and vitamin D level(low at 28.6). 6. Suggested supplementation of vitamin D further and that he discuss further with his family practice/primary team. 7. There are noted plans for further change in living situation with change in floor where he is atcurrently is upcoming. 8. Request last blood test results. Thank you for allowing me to see this patient if there are any question or concerns please feel free to contact me at my clinic. Sincerely, Jodi Ennis I spent 38 minutes in the visit, with more than 50% of the total uvkh-yr-qakn time of the visit in counseling / coordination of care. documented in this encounterBl[facility] NoteHNO ID: [id number] Author: Jodi Banerjee DO Service: ? Author Type: Physician Type: Progress Notes Filed: 08/27/2022 2:35 PM Note Text: [facility] [place] New Patient Consultation August 27, 2022 HPI: Mr. 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 marketing manager at the facility he is at [...] Coronary atherosclerosis of unspecified type of vessel, brevig mission or graft 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 Dyslipidemia Hypertension Hypertension Hypothyroid Lumbar disc disease Unspecified hypothyroidism Hypothyroidism PAST SURGICAL HISTORY Procedure Laterality Date PAST SURGICAL HISTORY OF CABG times 6 left internal thoracic artery to the pmg-bw-qfohrh left anterior descending artery, reverse saphenous vein [...] status: Former Packs/day: 1.0 (more content not included)...[facility] 08-27-2022 History of Present illness Narrative* Jodi Banerjee, - 08/27/2022 1:12 PM EST [facility] [place] New Patient Consultation August 27, 2022 HPI: Mr. Nguyễn, who is accompanied by his brother and niece, presents today secondary to issues ofmental status changes. He states that he himself [...] can have issues with being able to usehis phone, checking messages, etc... He may not [...] rate and he was on the flood forseveral hours before they came over. They found [...] showering on his own even though [facility] they take him down, but he has only showered once on his own while there. They have been working with social media marketing manager at the facility he is at but questioning level of care heneeds. They are not aware of any memory [...] Coronary atherosclerosis of unspecified type of vessel, brevig mission or graft 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 Dyslipidemia Hypertension Hypertension Hypothyroid Lumbar disc disease Unspecified hypothyroidism Hypothyroidism PAST SURGICAL HISTORY Procedure Laterality Date PAST SURGICAL HISTORY OF CABG times 6 left internal thoracic artery to the ktx-ro-iaygjv left anterior descending artery, reverse saphenous vein [...] loss of feeling, dizziness, seizure, blackout, paresthesia, facialparesthesia, facial weakness, difficulty in speech, slurring of [...] intact bilaterally to light touch V1-3, hearing intactbilaterally, shoulder shrug is symmetric Motor exam shows 5/5 strength symmetric through the upper and lower extremities in all groups tested Sensory intact to light touch and temperature in all extremities. Vibratory sensation is decreased at the first toes bilaterally. Deep tendon reflexes are symmetric at the biceps, brachioradialis, triceps, patella, and Achilles bilaterally Azar's responses are both flexion. Coordination: No dysmetria on finger to nose. No tremors noted. No drift seen Gait narrow base with small sharp steps on left. MMSE= 22/30 missed one for day of the week, date, town, one for naming, one for repetition, one forsentence writing, and two in delayed recall. +hard or hearing+ Labs/studies: MRI brain report 07/11/2022 noting 1. No intracranial hemorrhage, mass, or acute findings to accountfor patient's symptoms. 2. Age consistent atrophy and [...] previous/interval progress notes, messages, recent imaging, and laboratoryresults. 2. Discussed his placement that is upcoming and recommend memory [facility] in assisted living when looking at placement. 3. Encouraged physical activity and exercise as regular exercise has been shown to help most when it comes to memory loss. Also encouraged daily activities to stimulate thought such as puzzles, games, word, searches, hobbies, etc... 4. Discussed memory and the treatments for such both medication and non- medication approaches. Thisdiscussion included the medications currently available for memory and that these medications do not improve memory but rather are meant to help slow the progression of memory loss over time. After di scussion he/they elects to hold on medication at this time. 5. Discussed that he have hearing evaluation noted poor hearing noted in office. 6. Noting on ausculation that he is having early/ectopic beats in his heart rate (every third beat)recommend follow-up with cardiology. 7. Blood test for syphilis and recheck vitamin D. Thank you for allowing me to see this patient if there are any question or concerns please feel free to contact me at my clinic. Sincerely, Jodi Ennis I spent 85 minutes in the visit, with more than 50% of the total veja-mn-gcpf time of the visit in counseling / coordination of care. documented in this encounterBlanch[facility] of Past illness Narrative* ProblemNoted DateResolved DateStress isxeudsmskwjd77/23/2011 06/01/2011 Overview: RHI gtt per ICU protocol Mechanically assisted [id number] Overview: Extubated 05/29/11 no increased work of breathing Ryrekmbumdl99 Overview: Levo off this morning, hemodynamically stable. documented as of this encounter (statuses as of 08/27/2022) [facility] History of Past illness Narrative* ProblemNoted Date Diagnosed DateResolved DateStress [id number] Overview: RHI gtt per ICU protocol Mechanically assisted [id number] Overview: Extubated 05/29/11 no increased work of breathing Otzbqmtwdyu68 Overview: Levo off this morning, hemodynamically stable. documented as of this encounter (statuses as of 03/24/2023) [facility] of Past illness Narrative* ProblemNoted Date Diagnosed DateResolved DateStress [id number] Overview: RHI gtt per ICU protocol Mechanically assisted xanxegzjgld58 Overview: Extubated 05/29/11 no increased work of breathing Wuxzisdhdgz58 Overview: Levo off this morning, hemodynamically stable. documented as of this encounter (statuses as of 03/24/2023) [facility] Diagnosis Altered mental status, unspecified altered mental status type- Primary Vitamin D deficiency, unspecified [facility] Diagnosis Altered mental status, unspecified altered mental status type- Primary Memory loss [facility]* Diagnosis Cognitive decline- Primary Parkinson's disease [...] idiopathic peripheral neuropathy documented in this encounter [facility]* Diagnosis Hip fracture requiring operative repair, right, closed, initial encounter (HCC)- Primary Fall, initial encounter Closed fracture of femur, unspecified fracture morphology, unspecified laterality, unspecified portion of femur, initial encounter (HCC) Abnormal chest x-ray Other nonspecific abnormal finding of lung field ANIYA (acute kidney injury) Acute kidney failure, unspecified Left displaced femoral neck fracture (HCC) Closed fracture of unspecified part of neck of femur Fall Unspecified fall ANIYA (acute kidney injury) Acute kidney failure, unspecified Parkinson's disease (HCC) Paralysis agitans Coronary artery disease involving brevig mission coronary artery of brevig mission heart without angina pectoris documented in this encounter [facility] note* Diagnosis Hip fracture, left, sequela- Primary S/P hip hemiarthroplasty Left displaced femoral neck fracture (HCC) Closed fracture of unspecified part of neck of femur Hip fracture, left, sequela S/P hip hemiarthroplasty Closed fracture of left hip (HCC) Closed fracture of unspecified part of neck of femur documented in this encounter [facility] noteNo assessment information available [facility] Work Phone: Evaluation note* Diagnosis Cognitive decline- Primary Parkinson's disease without dyskinesia or fluctuating manifestations (HCC) Polyneuropathy Unspecified hereditary and idiopathic peripheral neuropathy Cognitive decline- Primary Parkinson's disease without dyskinesia or fluctuating manifestations (HCC) Polyneuropathy Unspecified hereditary and idiopathic peripheral neuropathy Cognitive decline- Primary Parkinson's disease without dyskinesia or fluctuating manifestations (HCC) Polyneuropathy Unspecified hereditary and idiopathic peripheral neuropathy Agitation Other and unspecified special symptom or syndrome, not elsewhere classified 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) documented in this encounter [facility] HealthcareInstructionsNot on filedocumented in this encounterProMedica Health SystemInstructionsNot on filedocumented in this encounterProMedica Health SystemInstructionsNot on filedocumented in this encounterProDecatur Morgan Hospital Health SystemReason for referral (narrative)No reason for referral information availableMarietta [facility] Work Phone: Reason for visit Narrative* Auth/CertSpecialty Diagnoses / ProceduresReferred By ContactReferred To Contact Juan Ramon Lucero MD [address], [address] [place] [address] Phone: tel: fax: [facility] [address] [place] [address] Referral IDStatusReasonStart DateExpiration DateVisits RequestedVisits [id number] [facility] Summary Purpose Family History No Family History Records FoundNo Family History Records FoundNo Family History Records FoundNo Family History Records FoundNo Family History Records FoundNo Family History Records FoundNo Family History Records FoundNo Family History Records FoundNo Family History Records FoundNo Family History Records Found Advance Directives No Advanced Directives Records FoundDocuments on File TypeDate RecordedPatient RepresentativeExplanationAdvance Directive(s)08/27/2022 1:25 PMDate ActivatedDate InactivatedComments02/25/2025 4:13 AMNameRelationship Healthcare Agent RelationshipCommunicationSteve BodnarBrother/SisterPrimary Decision Maker* Date ActivatedDate InactivatedComments02/28/2025 3:44 PMDate ActivatedDate InactivatedComments02/25/2025 4:13 AM02/28/2025 3:30 PMNameRelationshipHealthcare Agent RelationshipCommunicationSteve BodnarBrother/SisterPrimary Decision Maker * Advance Directive Response Recorded Date/ Time Advance Directives No March 10:36am Chief Complaint and Reason for Visit Chief Complaint Admit Date i1March 17, 2025 7:44am Additional Source Comments (unrecognized sect ion and content) No Status Records FoundNo Status Records FoundNo Status Records FoundNo Status Records FoundNo Status Records FoundNo Status Records FoundNo Status Records FoundNo Status Records FoundNo Status Records FoundNo Status Records Found INFORMATION SOURCE (unrecogn ized section and content) DATE CREATED AUTHOR 12/29/2017 [facility] DATE CREATED AUTHOR AUTHOR'S ORGANIZ ATION 12/30/2017 [facility] DATE CREATED AUTHOR AUTHOR'S ORGANIZ ATION 08/28/2022 [facility] DATE CREATED AUTHOR AUTHOR'S ORGANIZ ATION 12/12/2022 [facility] DATE CREATED AUTHOR AUTHOR'S ORGANIZ ATION 03/25/2023 [facility] DATE CREATED AUTHOR AUTHOR'S ORGANIZ ATION 06/02/2024 [facility] DATE CREATED AUTHOR AUTHOR'S ORGANIZ ATION 12/21/2024 [facility] DATE CREATED AUTHOR AUTHOR'S ORGANIZ ATION 03/18/2025 [facility] DATE CREATED AUTHOR AUTHOR'S ORGANIZ ATION 05/03/2025 [facility] DATE CREATED AUTHOR AUTHOR'S ORGANIZ ATION 05/10/2025 [facility] Source Comments (unrecognize d section and content) In the event this informatio n is protected by the Federal Confidentiality of Alcohol and Drug Abuse Patient Records regulations: The Federal rules restrict any use of the information to criminally investigate or prosecute any alcohol or drug abuse patient.[facility] HospitalIn the event this information is protected by the Federal Confidentiality of Alcohol and Drug Abuse Patient Records regulations: The Federal rules restrict any use of the information to criminally investigate or prosecute any alcohol or drug abuse patient.[facility] HospitalIn the event this information is protected by the Federal Confidentiality of Alcohol and Drug Abuse Patient Records regulations: The Federal rules restrict any use of the information to criminally investigate or prosecute any alcohol or drug abuse patient.[facility] Reason for Visit (unrecogniz ed section and content) ReasonCommentsNew PatientReasonCommentsFollow UpReasonCommentsMemory LossReason CommentsUrinary IncontinenceSpecialtyDiagnoses / ProceduresReferred By Contact Referred To ContactUrology Diagnoses Other specified disorders of kidney and ureter Urinary incontinence, unspecified type Pipe Jeffers MD [address] [place] [address] Phone: tel:[phone] fax: [facility] [address] [place] [address] [address] [facility] [place] [address] Phone: tel: fax: Referral IDStatusReasonStart DateExpiration DateVisits RequestedVisits [id number] Review Specialty Services Required [id number] declineReasonCommentsHip PainLeft side following fallSpecialtyDiagnoses / ProceduresReferred By ContactReferred To Contact Diagnoses Abnormal chest x-ray ANIYA (acute kidney injury) Fall, initial encounter Hip fracture requiring operative repair, right, closed, initial encounter (HCC) Closed fracture of femur, unspecified fracture morphology, unspecified laterality, unspecified portion of femur, initial encounter ([facility]) Zheng Mariscal MD [address] [place] [address] Phone: tel: fax: [facility] [address] [place] [address] Referral IDStatusReasonStart DateExpiration DateVisits RequestedVisits [id number]'s Disease Care Teams (unrecognized sec tion and content) Team MemberRelationshipSpecialtyStart DateEnd Date Pipe Jeffers MD [address] [place] [address] PCP - Ivsmybm32/14/11 [address] [place] [address] Primary Staff PhysicianCardiology09/21/18Team MemberRelationshipSpecialtyStart DateEnd Pipe Jeffers MD [address] [place] [address] PCP - Uyctrru78/14/11 [address] [place] [address] Primary Staff PhysicianCardiology09/21/18Team MemberRelationshipSpecialtyStart DateEnd Pipe Jeffers MD [address] [place] [phone] PCP - Nybntyr21/14/11 [address] [place] [address] Primary Staff PhysicianCardiology09/21/18Team MemberRelationshipSpecialtyStart [place] [address] [place] [address] PCP - GeneralFamily Medicine02/25/25Team MemberRelationshipSpecialtyStart [place] [address] [place] [address] PCP - GeneralFamily Medicine02/25/25 Team Status: Inactive Member Role Status Dates Esteban R Bunting , DO Attending Provider Active Start: March 17, 2025 End: March 17, 2025Team MemberRelationshipSpecialtyStart DateEnd Date Pipe Jeffers MD PCP - [facility]10/05/24 Team Status: Inactive Member Role/Relationship Status Dates Esteban Neely DO Attending Provider Active Start: March 17, 2025 End: March 17, 2025NON STAFFPrcarolinaeast medical centerry Care ProviderActiveStart: March 17, 2025 End: March 17, 2025 Team Status: Inactive Member Role/Relationship Status Dates Esteban Neely DO Attending Provider Active Start: May 03, 2025 End: May 03, 2025Team MemberRelationshipSpecialtyStart DateEnd Date Pipe Jeffers MD PCP - [facility]10/05/24 Scheduled Active and Recently Administ ered Medications (unrecognized section and content) Medication Order02/26//// aspirin EC tablet 81 mg 81 mg, Oral, 2 times daily, First dose on 02/25/25 at 2100, Until Discontinued, Do not crush or break., Post-op * 0856 (Given - Provider: Jamshid Marroquin RN) * 2014 (Given - Provider: Gina Raymundo, ITZ) * 0820 (Given - Provider: Alba Gabriel) * 2216 (Given - Provider: Juan Ramon Pete, ITZ) * 0741 (Given - Provider: Alison Velez RN) * 2100 (Due) carbidopa-levodopa (SINEMET) 25-100 MG per tablet 1 tablet 1 tablet, Oral, 3 TIMES DAILY, First dose on 02/25/25 at 1000, Until Discontinued * 0857 (Given - Provider: Jamshid Marroquin RN) * 1448 (Given - Provider: Jamshid Marroquin RN) * 2014 (Given - Provider: Gina Raymundo, ITZ) * 0821 (Given - Provider: Alba Gabriel) * 1342 (Given - Provider: Alba Gabriel) * 221 (Given - Provider: Juan Ramon Pete RN) * 0742 (Given - Provider: Alison Velez RN) * 1417 (Given - Provider: Alison Velez RN) * 2100 (Due) ceFAZolin (ANCEF) 2000 mg in sterile water 20 mL IV syringe (COMPLETED) 2,000 mg, IntraVENous, EVERY 8 HOURS, 2 doses, First dose on 02/25/25 at 2000, Last dose on 02/26/25 at 0400, Antimicrobial Indications: Surgical Prophylaxis, Administer over 5 mins., Post-op * 0528 (Given - Provider: Pinky Vargas RN) levothyroxine (SYNTHROID) tablet 100 mcg 100 mcg, Oral, DAILY, First dose on 02/25/25 at 1000, Until Discontinued, Tube feeding (TF) interaction, obtain physician order to manage, recommend holding TF for 30 minutes before and after dose. * 0528 (Given - Provider: Pinky Vargas RN) * 0600 (Given - Provider: Gina Raymundo RN) * 0526 (Given - Provider: Juan Ramon Pete, ITZ) liothyronine (CYTOMEL) tablet 5 mcg 5 mcg, Oral, DAILY, First dose on 02/25/25 at 1000, Until Discontinued * 0857 (Given - Provider: Jamshid Marroquin RN) * 0821 (Given - Provider: Alba Gabriel) * 0742 (Given - Provider: Alison Velez RN) memantine (NAMENDA) tablet 10 mg 10 mg, Oral, 2 TIMES DAILY, First dose on 02/25/25 at 1000, Until Discontinued * 0857 (Given - Provider: Jamshid Marroquin RN) * 2015 (Given - Provider: Gina Raymundo RN) * 0820 (Given - Provider: Alba Gabriel) * 2216 (Given - Provider: Juan Ramon Pete, ITZ) * 0741 (Given - Provider: Alison Velez, RN) * 2100 (Due) sertraline (ZOLOFT) tablet 25 mg 25 mg, Oral, DAILY, First dose on 02/25/25 at 1000, Until Discontinued * 0857 (Given - Provider: Jamshid Marroquin RN) * 0820 (Given - Provider: Alba Gabriel) * 0741 (Given - Provider: Alison Velez RN) sodium chloride flush 0.9 % injection 5-40 mL 5-40 mL, IntraVENous, EVERY 12 HOURS SCHEDULED (2 times per day), First dose on 02/25/25 at 0900, Until Discontinued, For Line Patency: Peripheral IV = 5 mL; Midline or Central Line = 10 mL/lumen.If following IV push medication, administer flush at same rate as the IV push. Flush volume is determined by type of infusion therapy being given. For non-viscous solutions use: Peripheral IV = 5 mL Midline or Central Line = 10 mL/lumen For viscous solutions (i.e. blood components, parenteral nutrition, contrast media, or after obtaining blood sample) use: Peripheral IV = 10 mL Midline or CentralLine = 20 mL/lumen * 1051 (Not Given - Provider: Jamshid Marroquin RN - Reason: IV Fluid Infusing) * 2014 (Not Given - Provider: Gina Raymundo RN - Reason: IV Fluid Infusing) * 821 (Not Given - Provider: Alba Gabriel - Reason: IV Fluid Infusing) * 2218 (Not Given - Provider: Juan Ramon Pete RN - Reason: Other) * 07 (Not Given - Provider: Alison Velez RN - Reason: IV Fluid Infusing) * 2100 (Due) sodium chloride flush 0.9 % injection 5-40 mL 5-40 mL, IntraVENous, EVERY 12 HOURS SCHEDULED (2 times per day), First dose on 02/25/25 at 2100, Until Discontinued, For Line Patency: Peripheral IV = 5 mL; Midline or Central Line = 10 mL/lumen.If following IV push medication, administer flush at same rate as the IV push. Flush volume is determined by type of infusion therapy being given. For non-viscous solutions use: Peripheral IV = 5 mL Midline or Central Line = 10 mL/lumen For viscous solutions (i.e. blood components, parenteral nutrition, contrast media, or after obtaining blood sample) use: Peripheral IV = 10 mL Midline or CentralLine = 20 mL/lumen, Post-op * 0857 (Given - Provider: Jamshid Marroquin RN) * 2013 (Given - Provider: Gina Raymundo RN) * 08 (Given - Provider: Alba Gabriel) * 2218 (Given - Provider: Juan Ramon Pete RN) * 0747 (Not Given - Provider: Alison Velez RN - Reason: IV Fluid Infusing) * 2100 (Due) Medication Order02/26//// 0.9 % sodium chloride infusion IntraVENous, at 35 mL/hr, CONTINUOUS, Starting on 02/25/25 at 1115 * 2013 (New Bag - Provider: Gina Raymundo RN) * 162 (Rate/Dose Change - Provider: Alba Gabriel) Medication Order02/26/// 0.9 % sodium chloride infusion IntraVENous, at 5-250 mL/hr, PRN, if patient receiving piggyback infusions and maintenance fluids are not ordered OR KVO fluids to protect IV site / prevent frequent line interruptions/ long duration, Starting on 02/25/25 at 0413, For piggyback infusion, administer at same rate as piggyback for a total of 25 mL. Enter 25 mL into dose field and piggyback rate into rate field of order. If piggyback is infusing at a rate less than 100 mL/hr, enter 25 mL into dose field and 100 mL/hr into rate field of order. For KVO fluids, enter rate of 20 mL/hr or less into rate field of order. 0.9 % sodium chloride infusion IntraVENous, at 5-250 mL/hr, PRN, if patient receiving piggyback infusions and maintenance fluids are not ordered, Starting on 02/25/25 at 1451, For piggyback infusion, administer at same rate as piggyback for a total of 25 mL. Enter 25 mL into dose field and piggyback rate into rate field of order. If piggyback is infusing at a rate less than 100 mL/hr, enter 25 mL into dose field and 100 mL/hr into rate field of order., Post-op acetaminophen (TYLENOL) suppository 650 mg(Linked Group 1) 650 mg, Rectal, EVERY 6 HOURS PRN, Starting on 02/25/25 at 0413, Until Discontinued, Pain Mild (1-3) OR per patient request for pain score (4-10), Fever, For temp greater than 100.4 F (38 C), Administer if oral route cannot be used. * 0820 (See Alternative - Provider: Alba Gabriel) * 0533 (See Alternative - Provider: Juan Ramon Pete RN) acetaminophen (TYLENOL) tablet 650 mg(Linked Group 1) 650 mg, Oral, EVERY 6 HOURS PRN, Starting on 02/25/25 at 0413, Until Discontinued, Pain Mild (1-3) OR per patient request for pain score (4-10), Fever, For temp greater than 100.4 F (38 C), Maximum dose of acetaminophen is 4000 mg from all sources in 24 hours. * 0820 (Given - Provider: Alba Gabriel) * 0533 (Given - Provider: Juan Ramon Pete, ITZ) melatonin tablet 3 mg 3 mg, Oral, NIGHTLY PRN, Starting on 02/25/25 at 0413, Until Discontinued, Sleep morphine injection 2 mg 2 mg, IntraVENous, EVERY 4 HOURS PRN, Starting on 02/25/25 at 0925, Until Discontinued, Pain Moderate (4-6) OR per patient request for pain score (7-10), If oral and IV narcotics ordered, use oralfirst and only use IV if oral is ineffective or cannot take oral. Do Not give oral and IV within 1 hour of each other unless specifically ordered. ondansetron (ZOFRAN) injection 4 mg(Linked Group 2) 4 mg, IntraVENous, EVERY 6 HOURS PRN, Starting on 02/25/25 at 0413, Until Discontinued, Nausea, Vomiting, Administer if oral route cannot be used. ondansetron (ZOFRAN-ODT) disintegrating tablet 4 mg(Linked Group 2) 4 mg, Oral, EVERY 8 HOURS PRN, Starting on 02/25/25 at 0413, Until Discontinued, Nausea, Vomiting oxyCODONE (ROXICODONE) immediate release tablet 5 mg(Linked Group 3) 5 mg, Oral, EVERY 4 HOURS PRN, Starting on 02/25/25 at 1451, Until Discontinued, Pain Moderate (4-6) OR per patient request for pain score (7-10), Post-op * 1448 (Given - Provider: Jamshid Marroquin, ITZ) * 0600 (Given - Provider: Gina Raymundo, ITZ) * 1120 (See Alternative - Provider: Alba Gabriel) * 0741 (See Alternative - Provider: Alison Velez, RN) * 1210 (See Alternative - Provider: Alison Velez, ITZ) oxyCODONE HCl (OXY-IR) immediate release tablet 10 mg(Linked Group 3) 10 mg, Oral, EVERY 4 HOURS PRN, Starting on 02/25/25 at 1451, Until Discontinued, Pain Severe (7-10), Post-op * 1448 (See Alternative - Provider: Jamshid Marroquin, ITZ) * 0600 (See Alternative - Provider: Gina Raymundo RN) * 1120 (Given - Provider: Alba Gabriel) * 0741 (Given - Provider: Alison Velez, RN) * 1210 (Given - Provider: Alison Velez, RN) sodium chloride flush 0.9 % injection 10 mL 10 mL, IntraVENous, PRN, Starting on 02/25/25 at 0413, Until Discontinued, Line Care, After every IV line use sodium chloride flush 0.9 % injection 5-40 mL 5-40 mL, IntraVENous, PRN, Starting on 02/25/25 at 1451, Until Discontinued, Line Care, After every IV line use, For Line Patency: Peripheral IV = 5 mL; Midline or Central Line = 10 mL/lumen. If following IV push medication, administer flush at same rate as the IV push. Flush volume is determined by type of infusion therapy being given. For non-viscous solutions use: Peripheral IV = 5 mL Midline or Central Line = 10 mL/lumen For viscous solutions (i.e. blood components, parenteral nutrition,contrast media, or after obtaining blood sample) use: Peripheral IV = 10 mL Midline or Central Line= 20 mL/lumen, Post-op Order Group 1: acetaminophen (TYLENOL) tablet 650 mgJump to med 650 mg, Oral, EVERY 6 HOURS PRN, Starting on 02/25/25 at 0413, Until Discontinued, Pain Mild (1-3) OR per patient request for pain score (4-10), Fever, For temp greater than 100.4 F (38 C), Maximum dose of acetaminophen is 4000 mg from all sources in 24 hours. Or acetaminophen (TYLENOL) suppository 650 mgJump to med 650 mg, Rectal, EVERY 6 HOURS PRN, Starting on 02/25/25 at 0413, Until Discontinued, Pain Mild (1-3) OR per patient request for pain score (4-10), Fever, For temp greater than 100.4 F (38 C), Administer if oral route cannot be used. Group 2: ondansetron (ZOFRAN-ODT) disintegrating tablet 4 mgJump to med 4 mg, Oral, EVERY 8 HOURS PRN, Starting on 02/25/25 at 0413, Until Discontinued, Nausea, Vomiting Or ondansetron (ZOFRAN) injection 4 mgJump to med 4 mg, IntraVENous, EVERY 6 HOURS PRN, Starting on 02/25/25 at 0413, Until Discontinued, Nausea, Vomiting, Administer if oral route cannot be used. Group 3: oxyCODONE (ROXICODONE) immediate release tablet 5 mgJump to med 5 mg, Oral, EVERY 4 HOURS PRN, Starting on 02/25/25 at 1451, Until Discontinued, Pain Moderate (4-6) OR per patient request for pain score (7-10), Post-op Or oxyCODONE HCl (OXY-IR) immediate release tablet 10 mgJump to med 10 mg, Oral, EVERY 4 HOURS PRN, Starting on 02/25/25 at 1451, Until Discontinued, Pain Severe (7-10), Post-op Medication Order//05/2025 amLODIPine (NORVASC) tablet 2.5 mg (CANCELED) 2.5 mg, Oral, DAILY, First dose on Thu03/12/25 at 1000, Until Discontinued * 0917 (Given - Provider: Sachin Barba RN) amLODIPine (NORVASC) tablet 5 mg 5 mg, Oral, DAILY, First dose (after last modification) on Thu03/15/25 at 0900, Until Discontinued * 1202 (Given - Provider: Loni Reese LPN) * 0831 (Given - Provider: Mele Alvarado RN) aspirin EC tablet 81 mg 81 mg, Oral, DAILY, First dose (after last modification) on Thu03/08/25 at 0900, Until Discontinued,Do not crush or break., Post-op * 0917 (Given - Provider: Sachin Barba RN) * 1202 (Given - Provider: Loni Reese LPN) * 0831 (Given - Provider: Mele Alvarado RN) carbidopa-levodopa (SINEMET) 25-100 MG per tablet 1 tablet 1 tablet, Oral, 3 TIMES DAILY, First dose (after last modification) on Thu02/28/25 at 2100, Until Discontinued * 0918 (Given - Provider: Sachin Barba RN) * 1330 (Given - Provider: Sachin Barba RN) * 2052 (Given - Provider: Kayli Payne LPN) * 1203 (Given - Provider: Loni Reese LPN) * 143 (Given - Provider: Sachin Barba RN) * 2120 (Given - Provider: Juan Ramon Rubio, RN) * 0833 (Given - Provider: Mele Alvarado, RN) * 1400 (Due) * 2100 (Due) heparin (porcine) injection 5,000 Units 5,000 Units, SubCUTAneous, EVERY 8 HOURS SCHEDULED (3 times per day), First dose on Thu03/01/25 at 1515, Until Discontinued * 0514 (Given - Provider: Kayli Payne LPN) * 1329 (Given - Provider: Sachin Barba RN) * 2051 (Given - Provider: Kayli Payne LPN) * 0532 (Given - Provider: Kayli Payne RN) * 143 (Given - Provider: Sachin Barba RN) * 2120 (Given - Provider: Juan Ramon Rubio, RN) * 0626 (Given - Provider: Juan Ramon Rubio RN) * 1400 (Due) * 2200 (Due) levothyroxine (SYNTHROID) tablet 100 mcg 100 mcg, Oral, DAILY, First dose (after last modification) on Thu03/01/25 at 0700, Until Discontinued, Tube feeding (TF) interaction, obtain physician order to manage, recommend holding TF for 30 minutes before and after dose. * 0514 (Given - Provider: Kayli Payne LPN) * 0532 (Given - Provider: Kayli Payne RN) * 0625 (Given - Provider: Juan Ramon Rubio, RN) liothyronine (CYTOMEL) tablet 5 mcg 5 mcg, Oral, DAILY, First dose (after last modification) on Thu03/01/25 at 0900, Until Discontinued * 0918 (Given - Provider: Sachin Barba RN) * 1204 (Given - Provider: Loni Reese LPN) * 0833 (Given - Provider: Mele Alvarado, ITZ) memantine (NAMENDA) tablet 10 mg 10 mg, Oral, 2 TIMES DAILY, First dose (after last modification) on Thu02/28/25 at 2100, Until Discontinued * 0917 (Given - Provider: Sachin Barba RN) * 2053 (Given - Provider: Kayli Payne LPN) * 1203 (Given - Provider: Loni Reese LPN) * 2121 (Given - Provider: Juan Ramon Rubio RN) * 0833 (Given - Provider: Mele Alvarado RN) * 2100 (Due) methocarbamol (ROBAXIN) tablet 500 mg 500 mg, Oral, 4 TIMES DAILY, First dose on Thu03/05/25 at 1300, Until Discontinued * 0917 (Given - Provider: Sachin Barba RN) * 1235 (Given - Provider: Sachin Barba RN) * 1649 (Given - Provider: Sachin Barba RN) * 2052 (Given - Provider: Kayli Payne LPN) * 1201 (Given - Provider: Loni Reese LPN) * 1434 (Not Given - Provider: Sachin Barba RN - Reason: Other) * 1736 (Not Given - Provider: Sachin Barba RN - Reason: Other) * 212 (Given - Provider: Juan Ramon Rubio RN) * 0831 (Given - Provider: Mele Alvarado RN) * 1225 (Given - Provider: Mele Alvarado RN) * 1700 (Due) * 2100 (Due) miconazole (MICOTIN) 2 % powder Topical, 2 TIMES DAILY, First dose on Thu03/03/25 at 0900, Apply to groin . * 0918 (Given - Provider: Sachin Barba RN) * 2055 (Given - Provider: Kayli Payne LPN) * 1204 (Given - Provider: Loni Reese LPN) * 2225 (Not Given - Provider: Juan Ramon Rubio RN - Reason: Patient/family refused) * 0831 (Not Given - Provider: Mele Alvarado RN - Reason: Patient/family refused) * 2100 (Due) oxyCODONE HCl (OXY-IR) immediate release tablet 10 mg(Linked Group 1) 10 mg, Oral, USER SPECIFIED (2 times per day), First dose on Thu03/09/25 at 1200, Until Discontinued * 0917 (Given - Provider: Sachin Barba RN) * 1329 (Given - Provider: Sachin Barba RN) * 0804 (Not Given - Provider: Sachin Barba RN - Reason: Other) * 1103 (Given - Provider: Sachin Barba RN) * 0626 (Given - Provider: Juan Ramon Rubio RN) * 1144 (Not Given - Provider: Mele Alvarado, ITZ - Reason: Patient/family refused) polyethylene glycol (GLYCOLAX) packet 17 g 17 g, Oral, DAILY, First dose on Thu02/28/25 at 1600, Until Discontinued * 0919 (Given - Provider: Sachin Barba RN) * 1202 (Given - Provider: Loni Reese LPN) * 0830 (Not Given - Provider: Mele Alvarado, ITZ - Reason: Patient/family refused) sertraline (ZOLOFT) tablet 25 mg 25 mg, Oral, DAILY, First dose (after last modification) on Thu03/01/25 at 0900, Until Discontinued * 0917 (Given - Provider: Sachin Barba RN) * 1201 (Given - Provider: Loni Reese LPN) * 0831 (Given - Provider: Mele Alvarado RN) sodium bicarbonate tablet 650 mg (CANCELED) 650 mg, Oral, 2 TIMES DAILY, First dose on Thu03/13/25 at 2100, Until Discontinued * 0917 (Given - Provider: Sachin Barba RN) * 205 (Given - Provider: Kayli Payne LPN) * 1201 (Given - Provider: Loni Reese LPN) torsemide (DEMADEX) tablet 10 mg (CANCELED) 10 mg, Oral, EVERY OTHER DAY, First dose on Thu03/14/25 at 1415, Until Discontinued * 1649 (Given - Provider: Sachin Barba RN) Medication Order//05/2025 acetaminophen (TYLENOL) tablet 650 mg(Linked Group 2) 650 mg, Oral, EVERY 6 HOURS PRN, Starting on Thu02/28/25 at 1544, Until Discontinued, Pain Mild (1-3) OR per patient request for pain score (4-10), Fever, For temp greater than 100.4 F (38 C), Maximum dose of acetaminophen is 4000 mg from all sources in 24 hours. * 1235 (Given - Provider: Sachin Barba RN) bisacodyl (DULCOLAX) suppository 10 mg 10 mg, Rectal, DAILY PRN, Starting on Thu02/28/25 at 1544, Until Discontinued, Constipation, TO BE GIVEN AFTER THERAPY COMPLETED FOR THE DAY melatonin tablet 3 mg 3 mg, Oral, NIGHTLY PRN, Starting on Thu02/28/25 at 1544, Until Discontinued, Sleep * 2051 (Given - Provider: Kayli Payne LPN) ondansetron (ZOFRAN-ODT) disintegrating tablet 4 mg(Linked Group 3) 4 mg, Oral, EVERY 8 HOURS PRN, Starting on Thu02/28/25 at 1544, Until Discontinued, Nausea, Vomiting oxyCODONE HCl (OXY-IR) immediate release tablet 10 mg(Linked Group 1) 10 mg, Oral, EVERY 4 HOURS PRN, Starting on Thu03/09/25 at 1128, Until Discontinued, Pain Moderate (4-6) OR per patient request for pain score (7-10), Pain Severe (7-10), Do not give within 4 hours ofscheduled doses at 730 and 1200 senna (SENOKOT) tablet 17.2 mg 17.2 mg (2 tablet), Oral, DAILY PRN, Starting on Thu02/28/25 at 1544, Until Discontinued, Constipation, First line therapy for constipation * 1432 (Given - Provider: Sachin Barba RN) Order Group 1: oxyCODONE HCl (OXY-IR) immediate release tablet 10 mgJump to med 10 mg, Oral, USER SPECIFIED (2 times per day), First dose on Thu03/09/25 at 1200, Until Discontinued And oxyCODONE HCl (OXY-IR) immediate release tablet 10 mgJump to med 10 mg, Oral, EVERY 4 HOURS PRN, Starting on Thu03/09/25 at 1128, Until Discontinued, Pain Moderate (4-6) OR per patient request for pain score (7-10), Pain Severe (7-10), Do not give within 4 hours ofscheduled doses at 730 and 1200 Group 2: acetaminophen (TYLENOL) tablet 650 mgJump to med 650 mg, Oral, EVERY 6 HOURS PRN, Starting on Thu02/28/25 at 1544, Until Discontinued, Pain Mild (1-3) OR per patient request for pain score (4-10), Fever, For temp greater than 100.4 F (38 C), Maximum dose of acetaminophen is 4000 mg from all sources in 24 hours. Or acetaminophen (TYLENOL) suppository 650 mg (CANCELED) 650 mg, Rectal, EVERY 6 HOURS PRN, Starting on Thu02/28/25 at 1544, Until Thu02/28/25 at 1552, PainMild (1-3) OR per patient request for pain score (4-10), Fever, For temp greater than 100.4 F (38 C), Administer if oral route cannot be used. Group 3: ondansetron (ZOFRAN-ODT) disintegrating tablet 4 mgJump to med 4 mg, Oral, EVERY 8 HOURS PRN, Starting on Thu02/28/25 at 1544, Until Discontinued, Nausea, Vomiting Or ondansetron (ZOFRAN) injection 4 mg (CANCELED) 4 mg, IntraVENous, EVERY 6 HOURS PRN, Starting on Thu02/28/25 at 1544, Until Thu02/28/25 at 1552, Nausea, Vomiting, Administer if oral route cannot be used. Ordered Prescriptions (unrec ognized section and content) PrescriptionSigDispense QuantityRefillsLast FilledStart DateEnd Date amLODIPine (NORVASC) 5 MG tablet Take 1 tablet by mouth daily 30 tablet oxyCODONE HCl (OXY-IR) 10 MG immediate release tablet Indications:S/P hip hemiarthroplasty,Left displaced femoral neck fracture (HCC), Hip fracture, left, sequelaTake 1 tablet by mouth in the morning and at bedtime for 7 days. Max Daily Amount: 20 mg 14 tablet carbidopa-levodopa (SINEMET) 25-100 MG per tablet Take 1 tablet by mouth 3 times daily03/16/2025 methocarbamol (ROBAXIN) 500 MG tablet Take 1 tablet by mouth 4 times daily03/16/2025 melatonin 3 MG TABS tablet Take 1 tablet by mouth nightly as needed (sleep)03/16/2025 polyethylene glycol (GLYCOLAX) 17 g packet Take 1 packet by mouth daily as needed for [id number]/11/2025 miconazole (MICOTIN) 2 % powder Apply topically 2 times daily. Apply to groin.03/16/2025 acetaminophen (TYLENOL) 325 MG tablet Take 2 tablets by mouth every 6 hours as needed for Pain03/16/2025 Goals (unrecognized section and content) Goals may be documented in a n alternate section FOR RECORDS PERTAINING TO PATIENTS WHO ARE [...] BE BASED ON THE PRIMARY CLINICAL RECORDS. [facility]. provides no warranty or guarantee of the accuracy or completeness of information in this document.
== END 2025-05-25 13:02 | disposition home or self-care (01) ==
LOC: CARD 13:05
PROVIDERS: PCP Family Medicine; Visit Provider Internal Medicine Interventional Cardiology
DX: I25.10 Atherosclerotic heart disease of native coronary artery without angina pectoris (principal); I50.32 Chronic diastolic (congestive) heart failure
CPT/HCPCS: 93306

== ENCOUNTER 2025-06-09 15:53 | Emergency (ER) | payer OTHER, SELFPAY ==
[2025-06-09 15:56] VITALS: BP 157/75; PULSE 68; TEMP 36.6; O2SAT 99
[2025-06-09 16:05] VITALS: BP 157/75; O2SAT 97
[2025-06-09 16:06] VITALS: O2SAT 98
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
[2025-06-09 16:47] VITALS: BP 142/66
--- NOTE | 2025-06-09 16:52 | PC.NURSE ---
bruising around left eye and bruise to left side forehead and left facial cheek. pt is able to open eyes and no swelling to eye lids. pt denies vision changes and is alert and appropriate.
--- OUTSIDE RECORDS SUMMARY | 2025-06-09 16:56 | XMS_ITS | CCD ---
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 Name Role Phone PHYSICIAN, DEFAULT Unavailable Unavailable PHYSICIAN, DEFAULT Unavailable Unavailable EVELIA, SUNJUK Unavailable Unavailable EVELIA, SUNJUK Unavailable Unavailable EVELIA, SUNJUK Unavailable Unavailable Pipe Jeffers~[phone] UNKNOWN Unavailable Unavailable Pipe Jeffers MD Primary Care Provider [phone] [place] Unavailable [phone] PIPE JEFFERS Primary Care Unavailable JODI BANERJEE [...] Unavailable Pipe Jeffers MD Primary Care Provider [phone] [place] Unavailable JODI BANERJEE Attending Unavailab PIPE Griffith Primary Care Unavailable JODI BANERJEE Attending Unavailab PIPE Griffith Primary Care Unavailable AYSE BARNES Attending Unavailable AYSE BARNES Attending Unavailable Unavailable Primary Care Provider Unavailabl e Unavailable Primary Care Provider Unavailabl e PIPE JEFFERS Referring Unavailable Pipe Jeffers MD Primary Care Provider [phone] Esteban Neely DO Attending Provider PIPE JEFFERS Primary Care Unavailable MARCIA, ROXANNE Consulting Unavailable NIC, JUAN RAMON Admitting Unavailable JUAN RAMON LUCERO Attending Unavailable ELIO, ZHNEG S Consulting Unavailable IMAM, SAUL SHAFFER Consulting Unavailabl e PIPE JEFFERS Primary Care Unavailable ELIO, ZHENG S Admitting Unavailable ANA DOWNING Consulting Unavailable MARCIA, ROXANNE Attending Unavailable CARLOS MILLER Consulting Unavailable IMAM, SAUL SHAFFER Consulting Unavailabl e JULIANNA HELLER Consulting Unavailable ALEX AZAR Consulting Unavailable Pipe Jeffers MD Primary Care Provider [phone] LYDIA BURRIS Attending Unavailable LYDIA BURRIS Attending Unavailable LYDIA BURRIS Attending Unavailable NON STAFF Primary Care Provider Unavailabl e Bunting, Esteban R Admitting Unavailable Bunting, Esteban R Attending Unavailable NON STAFF Primary Care Unavailable Bunting, Esteban R Attending Unavailable Bunting, Esteban R Admitting Unavailable Allergies Allergy ClassificationReported Allergen(s)Allergy TypeDate of OnsetReaction(s) Facility (2 sources)atorvastatin; Translations: [Lipitor][facility] (13 sources)atorvastatin; Translations: [ATORVASTATIN CALCIUM]Drug Allergy 19-73-8853[place], [facility] (5 sources)atorvastatin; Translations: [ATORVASTATIN]Drug Wvtpxvp72-30-9748 Hives, Other (See Comments), [facility], [facility] Medications Current Medications MedicationDrug Class(es)DatesSig (Normalized)Sig (Original)acetaminophen 325 mg oral tablet (17 sources)Start: 80-38-9987dxiy 2 tablets by mouth every six hours as needed for painacetaminophen (TYLENOL) 325 MG tablet Take 2 tablets by mouth every 6 hours as needed for Pain 03/16/2025 ActiveStart: 57-60-9953atvj 4000 mg by mouth every twenty-four hours as odmoao619 mg, Oral, EVERY 6 HOURS PRN, Starting [...] oral tablet (16 sources)Dihydropyridine Calcium Channel BlockerStart: 28-20-1603zrgq 1 tablet by mouth once dailyamLODIPine (NORVASC) 5 MG tablet Take 1 tablet by mouth daily 30 tablet 3 03/17/2025 ActiveStart: 03-55-2187mzsr 5 mg by mouth once daily5 mg, Oral, DAILY, First dose (after last modification) on Thu03/15/25 at 0900, Until DiscontinuedStart: 05-30-2024 End: 20-74-8460gmaj 2.5 mg by mouth once daily2.5 mg, [...] 10 mg rectal suppository (1 source)Stimulant LaxativeStart: 98-78-8738cwcl 10 mg rectal route once daily as wymksc26 mg, Rectal, DAILY PRN, Starting on Thu02/28/25 at 1544, Until Discontinued, Constipation, TO BE GIVEN AFTER THERAPY COMPLETED FOR THE DAY carbidopa 25 mg / levodopa 100 mg oral tablet (10 sources)Aromatic Amino Acid Decarboxylation Inhibitor, Aromatic Amino Acid Start: 29-49-6976vywo 1 tablet by mouth three times dailycarbidopa-levodopa (SINEMET) 25-100 MG per tablet Take 1 tablet by mouth 3 times daily 03/16/2025 ActiveStart: 58-83-4944fpgn 1 tablet by mouth three times daily1 tablet, Oral, 3 TIMES DAILY, First dose (after last modification) on Thu02/28/25 at 2100, Until DiscontinuedStart: 26-72-1136osns 1 tablet by mouth in the morning, then take 1 tablet by mouth in the evening, then take 1 tablet by mouth at bedtime carbidopa-levodopa (Sinemet) 25-100 MG tablet Take 1 tablet by mouth in the morning and 1 tablet inthe evening and 1 tablet before bedtime. 09/06/2024 Active End: 22-00-1672egwa 1 tablet by mouth three times dailycarbidopa-levodopa (SINEMET) 10-100 MG per tablet Take 1 tablet by mouth 3 times daily 03/16/2025 Discontinued (Stop Taking at Discharge)cefdinir 300 mg oral capsule (8 sources)Cephalosporin AntibacterialStart: 06-41-2695pwdy 2 capsules by mouth in the morningcefdinir (Omnicef) 300 MG capsule Take 2 capsules by mouth in the morning. 09/10/2022 Activecelecoxib 100 mg oral capsule (10 sources)Nonsteroidal Anti-inflammatory Drug End: 15-91-4060ovil 1 capsule by mouth in the morningcelecoxib (CeleBREX) 100 MG capsule Take 100 mg by mouth in the morning. ActiveComment on above:Take 100 mg by mouth once daily.cephalexin 500 mg oral capsule (2 sources)Cephalosporin Antibacterial End: 15-79-1672staj 1 capsule by mouth twice dailycephALEXin (KEFLEX) 500 MG capsule Take 1 capsule by mouth 2 times daily 03/16/2025 Discontinued (Stop Taking at Discharge)cholecalciferol 0.05 mg oral tablet (18 sources)Vitamin Dtake 1 tablet by mouth in the morningcholecalciferol (Vitamin D-3) 50 MCG (1999 UT) tablet Take 2,000 Units by mouth in the morning. Active End: 42-04-4881qybd 1 capsule by mouth once dailyvitamin D 50 MCG (1999 UT) CAPS capsule Take 1 capsule by mouth daily Suspendeddocusate sodium 50 mg / sennosides, jail 8.6 mg oral tablet (2 sources) End: 44-83-7855ewge 1 tablet by mouth once dailysennosides-docusate sodium (SENOKOT-S) 8.6-50 MG tablet Take 1 tablet by mouth daily 03/16/2025 Disc ontinued (Stop Taking at Discharge)hydroCHLOROthiazide 25 mg oral tablet (3 sources)Thiazide Diuretictake 1 tablet by mouth once dailyhydroCHLOROthiazide (HYDRODIURIL) 25 mg tablet Take 1 tablet (25 mg total) by mouth daily. Active levothyroxine sodium 0.1 mg oral tablet (15 sources)l-ThyroxineStart: 28-67-2238kvytsxglxwthx (Synthroid, Levoxyl) 100 MCG tablet 08/29/2024 ActiveComment on above:Take 1 tablet by mouth once daily. liothyronine sodium 0.005 mg oral tablet (15 sources)l-TriiodothyronineStart: 88-03-1603jbtsnitkfnmk (Cytomel) 5 MCG tablet 09/05/2024 ActiveComment on above:Take 5 mcg by mouth once daily. melatonin 3 mg oral tablet (3 sources)Start: 48-25-0715czpa 1 tablet by mouth once daily as needed for sleepmelatonin 3 MG TABS tablet Take 1 tablet by mouth nightly as needed (sleep) 03/16/2025 ActiveStart: 35-64-0999fuib 3 mg by mouth once daily as needed3 mg, Oral, NIGHTLY PRN, Starting on Thu02/28/25 at 1544, Until Discontinued, Sleep memantine hydrochloride 10 mg oral tablet (9 sources)B-pxdyna-M-aspartate Receptor AntagonistStart: 28-44-6031mmzo 1 tablet by mouth in the morningmemantine (Namenda) 10 MG tablet Take 10 mg by mouth in the morning and 10 mg in the evening. 08/16/2024 Activemethocarbamol 500 mg oral tablet (2 sources)Muscle RelaxantStart: 92-70-0919kpbm 1 tablet by mouth four times dailymethocarbamol (ROBAXIN) 500 MG tablet Take 1 tablet by mouth 4 times daily 03/16/2025 ActiveStart: 67-43-7222rdky 500 mg by mouth four times mg, Oral, 4 TIMES DAILY, First dose on Thu03/05/25 at 1300, Until Discontinued miconazole nitrate 0.02 mg/mg topical powder (2 sources)Azole AntifungalStart: 81-63-2646vkpqhyjgac (MICOTIN) 2 % powder Apply topically 2 times daily. Apply to groin. 03/16/2025 ActiveStart: 56-24-0133wmdin 1 dose topically twice dailyTopical, 2 TIMES DAILY, First dose on Thu03/03/25 at 0900, Apply to groin .Multiple Vitamin (multivitamin) tablet (2 sources)take 1 tablet by mouth once dailyMultiple Vitamin (multivitamin) tablet Take 1 tablet by mouth Daily Activeondansetron 4 mg disintegrating oral tablet (1 source)Serotonin-3 Receptor AntagonistStart: 29-91-4593vpucaxhjjug (ZOFRAN- ODT) disintegrating tablet 4 mg (1 source)Start: 60-88-8512xjeybgzwkom (ZOFRAN-ODT) disintegrating tablet 4 mg oxyCODONE hydrochloride 10 mg oral tablet (3 sources)Opioid AgonistStart: 03-16-2025 End: 72-89-4953dqsr 1 tablet by mouth once daily at bedtimeoxyCODONE HCl (OXY- IR) 10 MG immediate release tablet Indications: S/P hip hemiarthroplasty , Left displaced femoral neck fracture (HCC) , Hip fracture, left, sequela Take 1 tablet by mouth in the morning and at bedtime for 7 days. Max Daily Amount: 20 mg 14 tablet 03/16/2025 03/23/2025 ActiveStart: 00-91-6279yahWKHPPI HCl (OXY-IR) immediate release tablet 10 mgStart: 07-97-6219hawTCJUHO (ROXICODONE) immediate release tablet 5 mgpolyethylene glycol 3350 59821 mg powder for oral solution (2 sources)Osmotic LaxativeStart: 51-16-4143zpda 1 dose by mouth once daily as needed for constipationpolyethylene glycol (GLYCOLAX) 17 g packet Take 1 packet by mouth daily as needed for Constipation 03/16/2025 ActiveStart: 07-96-752835 g, Oral, DAILY, First dose on Tu02/28/25 at 1600, Until Djihpmpwfvoz207 ml potassium chloride 0.1 meq/ml injection (4 sources)Start: 59-51-150264 mEq, IntraVENous, ONCE, 1 dose, On 02/25/25 at 1115, at 100 mL/hr, Potassium chloride doses are limited to a maximum of six consecutive doses before reassessment of laboratory values is needed.Start: 02-25-2025 End: 02-87-410658 mEq, Oral, ONCE, 1 dose, On 02/25/25 at 1030, Do not crush, chew, or suck on tablet. Tablet may also be broken in half and each half swallowed separately. End: 51-60-5201vdlr 10 mEq by mouth once dailypotassium chloride (KLOR-CON) 20 MEQ packet Take 10 mEq by mouth daily 03/16/2025 Discontinued (Stop Taking at Discharge)tolterodine tartrate 1 mg oral tablet (10 sources)Cholinergic Muscarinic AntagonistStart: 09-07-2024 End: 73-77-0399uwzthklzmzz (Detrol) 1 MG tablet 09/07/2024 ActiveStart: 93-25-0592hktg 1 tablet by mouth in the morning, then take 1 tablet by mouth at bedtimetolterodine (DETROL) 2 mg tablet Take 1 tablet (2 mg total) by mouth in the morning and 1 tablet (2mg total) before bedtime. 06/06/2024 Active Completed/Discontinued Medications MedicationDrug Class(es)DatesSig (Normalized)Sig (Original)aspirin 81 mg delayed release oral tablet (16 sources)Platelet Aggregation Inhibitor, Nonsteroidal Anti-inflammatory Drug Start: 02-25-2025 End: 08-98-8268skvh 81 mg by mouth twice daily81 mg, Oral, 2 times daily, First dose (after last modification) on Thu02/28/25 at 2100, Until Discontinued, Do not crush or break., Post-opStart: 26-10-0460jnih 81 mg by mouth once daily81 mg, [...] mg/ml injection (1 source)Opioid AgonistStart: 02-25-2025 End: 45-63-6984kaqm 1 dose by mouth every hour25 mcg, [...] 20 mg oral tablet (3 sources)Loop DiureticStart: 91-64-7518ehlb 1 tablet by mouth once daily furosemide (LASIX) 20 mg tablet Take 1 tablet by mouth once daily for 14 days. 14 tablet 0 02/09/2019 ActiveComment on above:Take 1 tablet by mouth once daily for 14 days.1 ml heparin sodium, porcine 5000 unt/ml prefilled syringe (1 source)Unfractionated Heparin, Anti-coagulantStart: 91-37-1482iuerga 1 dose by subcutaneous injection three times [...] Take 1 tablet by mouth once daily.sennosides, jail 8.6 mg oral tablet (1 source)Start: 02-39-2377awck 1 tablet by mouth once daily as needed for dvmlmvjnzatj88.2 mg (2 tablet), Oral, DAILY PRN, Starting on Thu02/28/25 at 1544, Until Discontinued, Constipation, First line therapy for constipation sertraline 25 mg oral tablet (4 sources)Serotonin Reuptake InhibitorStart: 01-00-4100qzzv 25 mg by mouth once daily25 mg, Oral, DAILY, First dose (after last modification) on Thu03/01/25 at 0900, Until DiscontinuedStart: 56-79-7660qoqj 25 mg by mouth once daily25 mg, Oral, DAILY, First dose on Thu02/25/25 at 1000, Until Discontinuedsodium bicarbonate 650 mg oral tablet (1 source)Start: 03-13-2025 End: 60-50-0599wuwz 650 mg by mouth twice lujso515 mg, Oral, 2 TIMES DAILY, First dose [...] Midline or CentralLine = 20 mL/lumen, Post-opStart: 89-74-4440Bobrl: 02-25-2025 take 20 mL intravenously every hourIntraVENous, [...] or less into rate field of order.Start: 60-73-4198quvpfaggr 20 mg oral tablet (4 sources)Loop DiureticStart: 03-14-2025 End: 89-29-3526lbqn 10 mg by mouth every other day10 mg, Oral, EVERY OTHER DAY, First dose on Thu03/14/25 at 1415, Until DiscontinuedStart: 03-03-2025 End: 33-88-4524kdgc 10 mg by mouth once daily10 mg, Oral, DAILY, First dose on Thu03/03/25 at 1845, Until Discontinued End: 66-62-5195btfv 1 tablet by mouth once dailytorsemide (DEMADEX) 10 MG tablet Take 1 tablet by mouth daily 03/16/2025 Discontinued (Stop Taking at Discharge) vitamin b12 0.5 mg oral tablet (2 sources)Vitamin G63ecsi 1 tablet by mouth once dailyvitamin B-12 (CYANOCOBALAMIN) 500 MCG tablet Take 1 tablet by mouth daily Suspended Problems Active Problems Problem ClassificationProblemDateDocumented DateEpisodic/ChronicAcute and unspecified renal failure (5 sources)Acute renal failure syndrome; Translations: [Acute kidney failure, unspecified]Onset: 309957-40-7238RniqwnraTmwvkpkf (1 source)Presence of intraocular lens; Translations: [PRESENCE OF INTRAOCULAR LENS]Onset: 63-87-0089DmrjzsiIwrnzfy kidney disease (1 source)Chronic kidney disease, stage 4 (severe); Translations: [CKD STAGE 4 SEVERE]Onset: 52-10-8285GmjezaiTxbauid kidney disease (2 sources)Chronic kidney disease; Translations: [Chronic kidney disease, stage 3b]Onset: 69-44-8633Telfzubhpn heart failure; nonhypertensive (3 sources)Unspecified diastolic (congestive) heart failure; Translations: [Chronic diastolic (congestive) heart failure]Onset: 28-56-7726NikynbuTkxtwapg atherosclerosis and other heart disease (9 sources)Coronary arteriosclerosis; Translations: [Atherosclerotic heart disease of [place] coronary artery without angina pectoris]Onset: 05-27-2011 76-98-7305CbejcykXiqwhshe, dementia, and amnestic and other cognitive disorders (4 sources)Primary degenerative dementia of the Alzheimer type, senile onset; Translations: [Alzheimer's disease with late onset]Onset: ChronicDisorders of lipid metabolism (9 sources)Hyperlipidemia; Translations: [Hyperlipidemia, unspecified]Onset: 14-36-7145IiswikkP Codes: Fall (6 sources)Unspecified fall, initial encounter; Translations: [Fall]Onset: 207238-89-6758DgehjegoNytoscysm hypertension (11 sources)Hypertensive disorder; Translations: [Essential (primary) hypertension]Onset: 35-27-1046JpqaehtWvgrrach of lower limb (2 sources)Closed fracture of femur; Translations: [Unspecified fracture of unspecified femur, initial encounter for closed fracture]Onset: 02-25-2025 52-82-3721NoobgjubYnilxoov of neck of femur (hip) (11 sources)Fracture of unspecified part of neck of left femur, initial encounter for closed fracture; Translations: [Closed fracture of unspecified part of neck of femur]Onset: 513930-43-3803XheyhckhVbygipodctrll symptoms and ill-defined conditions (5 sources)Functional urinary incontinence; 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]Onset: 989551-21-1243YtykabpGbuylubgrian with complications and secondary hypertension (3 sources)Hypertensive chronic kidney disease with stage 1 through stage 4 chronic kidney disease, or unspecified chronic kidney disease; Translations: [Hypertensive heart disease with heart failure]Onset: 81-21-2867Tsphruk Immunizations and screening for infectious disease (4 sources)Nonspecific reaction to cell mediated immunity measurement of gamma interferon antigen response without active tuberculosis; Translations: [NONSPC RXN C MED IMMU INF-G ANT RES]Onset: 39-44-2513VsrdmkphDwkkfcrekku deficiencies (3 sources)Vitamin D deficiency; Translations: [Vitamin D deficiency, unspecified]Onset: 13-91-7484QuvdyfuMwccauusr or stenosis of precerebral arteries (2 sources)Occlusion and stenosis of bilateral carotid arteries; Translations: [Occlusion and stenosis of bilateral carotid arteries]Onset: 51-76-6950Ocwjafu Other connective tissue disease (3 sources)History of repair of hip joint; Translations: [Presence of unspecified artificial hip joint]Onset: 544054-90-8300EgfihqkUykoz connective tissue disease (1 source)Presence of unspecified artificial hip joint; Translations: [Presence of unspecified artificial hipjoint]Onset: 48-80-1152YukkyduScuna diseases of kidney and ureters (1 source)Disorder of kidney and/or ureter; Translations: [Other specified disorders of kidney and ureter]06-81-5652ZznyxmiXwrud nervous system disorders (1 source)Metabolic encephalopathy; Translations: [METABOLIC ENCEPHALOPATHY] Onset: 60-80-4352ViipujfBjvmn nervous system disorders (13 sources)Polyneuropathy; Translations: [Polyneuropathy, unspecified]Onset: 836504-81-1358GkeqebgRpfiu nervous system disorders (13 sources)Impaired cognition; Translations: [Other symptoms and signs involving cognitive functions and awareness]Onset: 791856-65-3405Vwcqsxrw Other screening for suspected conditions (not mental disorders or infectious disease) (2 sources)Abnormal findings on diagnostic imaging of other specified body structures; Translations: [Nonspecific (abnormal) findings on radiological and other examination of other intrathoracic organs]Onset: ChronicResidual codes; unclassified (4 sources)Restlessness and agitation; Translations: [Restlessness and agitation]Onset: 512072-61-5999DvzeuoaBicizrei codes; unclassified (2 sources)Altered mental status; Translations: [Altered mental status, unspecified]EpisodicResidual codes; unclassified (1 source)Amnesia; Translations: [Other amnesia]20-28-5652AdkasncqWdvlxkf disorders (5 sources)Hypothyroidism; Translations: [Hypothyroidism, unspecified]Onset: 20-71-8559DkkukplXtfdvuumcjei (16 sources)Parkinson's disease; Translations: [Parkinson's disease without dyskinesia or fluctuating manifestations (CMS/HCC)]Onset: ChronicUnclassified (3 sources)SUMMARYOnset: 55-46-0815Zsybqirbmyfh (1 source)CONTACT W/AND (SUSP) EXPOS COVID-19; Translations: [CONTACT W/AND (SUSP) EXPOS COVID-19]Onset: 07-14-2022 Past or Other Problems Problem ClassificationProblemDateDocumented DateEpisodic/ChronicBacterial infection; unspecified site (2 sources)Bacteremia; Translations: [Other specified bacterial agents as the cause of diseases classified elsewhere]Onset: 17-23-2351VmqmpmwhQkppfsgc atherosclerosis and other heart disease (3 sources)Presence of aortocoronary bypass graft; Translations: [PRESENCE AORTOCORONARY BYPASS GRAFT]Onset: 44-33-3211ZilsxjqcPzlpmtvsuh and other anemia (2 sources)Anemia, unspecified; Translations: [ANEMIA UNSPECIFIED]Onset: 40-58-6389HjfpfhdnMuonmplm mellitus without complication (1 source)Other abnormal glucose; Translations: [OTHER ABNORMAL GLUCOSE]Onset: 19-45-5348MczlpaxlM Codes: Place of occurrence (1 source)Unspecified place in unspecified non-institutional (private) residence as the place of occurrence of the external cause; Translations: [UNS PLAC UNS NON INST RES OCCUR EXT]Onset: 10-82-7141PxjbhsrtFohkt and electrolyte disorders (1 source)Dehydration; Translations: [DEHYDRATION]Onset: 93-70-1440Plgcdcwn Fracture of neck of femur (hip) (3 sources)Closed fracture of hip; Translations: [Fracture of unspecified part of neck of right femur, initialencounter for closed fracture]Onset: 02-25-2025 Resolved: 548822-21-8257ZvszcvejVuvxcrj and fatigue (4 sources)Weakness; Translations: [WEAKNESS]Onset: 22-68-8068FjgnoszbOfsziwraas disorders (1 source)Hormone replacement therapy; Translations: [HORMONE REPLACEMENT THERAPY]Onset: 05-30-1994XwakavzgGprkbqkxvoglx gastroenteritis (1 source)Noninfective gastroenteritis and colitis, unspecified; Translations: [NONINFECTIVE GE AND COLITIS UNS]Onset: 67-87-0677XizdxudgKdzsx aftercare (1 source)FPC (current) use of aspirin; Translations: [INTERMEDIATE CURRENT USE OF ASPIRIN]Onset: 00-25-8066YllxyootEqvaf aftercare (1 source)Other termite helper (current) drug therapy; Translations: [OTH INTERMEDIATE CURRENT DRUG THERAPY]Onset: 61-99-4878IwoilbpgNjhzw connective tissue disease (3 sources)Rhabdomyolysis; Translations: [RHABDOMYOLYSIS]Onset: 07-01-2022 EpisodicOther diseases of kidney and ureters (1 source)Disorder of kidney and ureter, unspecified; Translations: [DISORDER KIDNEY AND URETER UNS]Onset: 44-78-9406LzupfdouYoinf eye disorders (1 source)Cataract extraction status, unspecified eye; Translations: [CATARACT EXTRACTION STATUS UNS EYE]Onset: 84-47-0386BmcrivgbGgdia injuries and conditions due to external causes (1 source)Hypothermia, initial encounter; Translations: [HYPOTHERMIA INITIAL ENCOUNTER]Onset: 87-82-3939EestyollQvouo nervous system disorders (3 sources)Postoperative pain ; Translations: [Other acute postprocedural pain] Onset: 65-43-0425XkowdkasNtnqr screening for suspected conditions (not mental disorders or infectious disease) (5 sources)Cardiovascular stress test abnormal; Translations: [Abnormal result of other cardiovascular function study]Onset: 753195-81-6021Safacmje Residual codes; unclassified (5 sources)Altered mental status, unspecified; Translations: [Altered mental status, unspecified altered mental status type]Onset: 97-21-1170Uaduwgro Screening and history of mental health and substance abuse codes (1 source)Personal history of nicotine dependence; Translations: [PERSONAL HISTORY OF NICOTINE DEPEND]Onset: 27-94-6437Kqjlantk Results Test NameValueInterpretationReference RangeFacilityBasophils [#/volume] in Blood by Automated countOrdered By: Esteban Neely on 14-59-4758Rignwbmcn (Bld) [#/Vol]0.1 10*3/uLNormal0.0-0.2FMercy Health Kings Mills HospitalComment on above:Result Comment: PERFORMED BY: [place] [address] PATHOLOGIST SPLUNK DEVELOPER OLGA BLANTON M.D.Performed By: #### CBC #### [place] [address] USABasophils/100 leukocytes in Blood by Automated count Ordered By: Esteban Neely on 11-71-4839Gpcbtasrg/100 WBC (Bld)0.9 %Normal. [facility] CampusComment on above:Performed By: #### CBC #### [place] [address] USAComplete Blood Count Auto Diffon 27-95-4854Kbks Corpuscular HGB Conc32.8 g/wUBhaoaz33.5-35.6[facility] Physician GroupComment on above:Performed By: #### CBC #### [place] [address] USANRBC%0.1 /100{WBC}Normal0-0.5[facility] Comment on above:Performed By: #### CBC #### [place] [address] USAWhite Blood Count6.4 [CFU]/mLNormal4.1-10.5[facility] Physician GroupComment on above:Performed By: #### CBC #### [facility] [address] [place] [address] USAEosinophils [#/volume] in Blood by Automated countOrdered By: Esteban Bunting on 27-86-9342Pocckybbdjb (Bld) [#/Vol]0.6 10*3/uLHigh0.0-0.45 [facility] CampusComment on above:Performed By: #### CBC #### [facility] [address] [place] [address] USAEosinophils/100 leukocytes in Blood by Automated count Ordered By: Esteban Bunting on 93-89-0764Ckycwxersjh/100 WBC (Bld)9.3 %Normal. [facility] CampusComment on above:Performed By: #### CBC #### [facility] [address] [place] [address] USAErythrocyte distribution width [Ratio] by Automated count Ordered By: Esteban Bunting on 48-82-7086Lpwxuftyeto distribution width (RBC) [Ratio]14.1 %Fmnqss08.0-14.8[facility] CampusComment on above: Performed By: #### CBC #### [place] [address] USAErythrocytes [#/volume] in Blood by Automated countOrdered By: Esteban Bunting on 79-14-3998LFH (Bld) [#/Vol]4.34 10*6/uLNormal3.90-5.60 [facility] CampusComment on above:Performed By: #### CBC #### [facility] [address] [place] [address] USAHematocrit [Volume Fraction] of Blood by Automated count Ordered By: Esteban Bunting on 37-66-8810Zkgqyrevxi (Bld) [Volume fraction]38.8 % Ewbpgj92.8-50.0[facility] CampusComment on above:Performed By: #### CBC #### [facility] [address] [place] [address] USAHemoglobin [Mass/volume] in BloodOrdered By: Esteban Bunting on 48-28-2668Bjgmdgkddg (Bld) [Mass/Vol]12.7 g/dLLow13.0-17.0[facility] CampusComment on above:Performed By: #### CBC #### [facility] [address] [place] [address] USALeukocytes [#/volume] corrected for nucleated erythrocytes in Blood by Automated counOrdered By: Esteban Bunting on 85-21-4573LUH corrected for nucl RBC Auto (Bld) [#/Vol]6.4 10*3/uL4.1-10.5FMercy Health Kings Mills HospitalLeukocytes [#/volume] in Blood by Automated countOrdered By: Esteban Bunting on 76-57-9773TPA (Bld) [#/Vol]6.4 10*3/uLNormal4.1-10.5FMercy Health Kings Mills HospitalComment on above:Performed By: #### CBC #### [facility] [address] [place] [address] USALymphocytes [#/volume] in Blood by Automated countOrdered By: Esteban Bunting on 14-71-0794Jdeinordobc (Bld) [#/Vol]2.7 10*3/uLNormal 1.00-4.8[facility] CampusComment on above:Performed By: #### CBC #### [facility] [address] [place] [address] USALymphocytes/100 leukocytes in Blood by Automated count Ordered By: Esteban Bunting on 67-42-8760Daqgwtkyzkv/100 WBC (Bld)42.3 %Normal. [facility] South CampusComment on above:Performed By: #### CBC #### [facility] [address] [place] [address] USAMCH [Entitic mass] by Automated countOrdered By: Esteban Bunting on 50-29-9309TVF (RBC) [Entitic mass]29.3 hnGwpoxs69.5-35.2FMercy Health Kings Mills HospitalComment on above:Performed By: #### CBC #### [facility] [address]HC Auto (RBC) [Mass/Vol]Ordered By: Esteban Bunting on 01-71-3976JKUS (RBC) [Mass/Vol]32.8 g/dL32.5-35.6FMercy Health Kings Mills HospitalMCV [Entitic volume] by Automated countOrdered By: Esteban Bunting on 65-16-8243BWX (RBC) [Entitic vol]89.4 cUSuocxz16.5-101[facility] CampusComment on above:Performed By: #### CBC #### [facility] [address] [place] [address] USAMonocytes [#/volume] in Blood by Automated countOrdered By: Esteban Bunting on 36-37-7893Tyomfsuzr (Bld) [#/Vol]0.6 10*3/uLNormal0.0-0.8 [facility] CampusComment on above:Performed By: #### CBC #### [facility] [address] [place] [address] USAMonocytes/100 leukocytes in Blood by Automated count Ordered By: Esteban Bunting on 98-88-7873Fzcfytsmq/100 WBC (Bld)9.4 %Normal. [facility] CampusComment on above:Performed By: #### CBC #### [facility] [address] [place] [address] USANeutrophils [#/volume] in Blood by Automated countOrdered By: Esteban Bunting on 39-63-6801Nbsrtkphcyp (Bld) [#/Vol]2.4 10*3/uLNormal 1.8-7.7FMercy Health Kings Mills HospitalComment on above:Performed By: #### CBC #### [facility] [address] [place] [address] USANeutrophils/100 leukocytes in Blood by Automated count Ordered By: Esteban Bunting on 89-14-3077Duuacoypiip/100 WBC (Bld)38.1 %Normal. [facility] CampusComment on above:Performed By: #### CBC #### [place] [address] USANucleated erythrocytes [Presence] in Blood by Automated countOrdered By: Esteban Bunting on 86-14-6294Txjyylntu RBC Auto Ql (Bld)0.1 /100{WBC}0-0.5FMercy Health Kings Mills HospitalPlatelet mean volume [Entitic volume] in Blood by Automated countOrdered By: Esteban Bunting on 05-03-2025 Platelet mean volume (Bld) [Entitic vol]7.8 fLNormal6.6-10.1FMercy Health Kings Mills HospitalComment on above:Performed By: #### CBC #### [place] [address] USAPlatelets [#/volume] in Blood by Automated countOrdered By: Esteban Bunting on 81-73-4251Gxztgzqql (Bld) [#/Vol]206 10*3/bRZmqplf952-819 [facility] CampusComment on above:Performed By: #### CBC #### [place] [address] USABasophils [#/volume] in Blood by Automated countOrdered By: Esteban Bunting on 51-07-1148Vlawguzbo (Bld) [#/Vol]0.0 10*3/uLNormal0.0-0.2 [facility] CampusComment on above:Result Comment: PERFORMED BY: [place] [address] PATHOLOGIST SPLUNK DEVELOPER OLGA BLANTON M.D.Performed By: #### CBC #### [place] [address] USABasophils/100 leukocytes in Blood by Automated count Ordered By: Esteban Bunting on 20-24-8756Pojenzziu/100 WBC (Bld)0.7 %Normal. [facility] CampusComment on above:Performed By: #### CBC #### [place] [address] USAComplete Blood Count Auto Diffon 17-30-5168Sool Corpuscular HGB Conc32.7 g/nTDfouix89.5-35.6[facility] Physician GroupComment on above:Performed By: #### CBC #### [place] [address] USANRBC%0.1 /100{WBC}Normal0-0.5[facility] Comment on above:Performed By: #### CBC #### [place] [address] USAWhite Blood Count7.2 [CFU]/mLNormal4.1-10.5[facility] Physician GroupComment on above:Performed By: #### CBC #### [place] [address] USAEosinophils [#/volume] in Blood by Automated countOrdered By: Esteban Bunting on 64-35-7305Kvacrjgqqax (Bld) [#/Vol]0.3 10*3/uLNormal 0.0-0.45[facility] CampusComment on above:Performed By: #### CBC #### [facility] [address] [place] [address] USAEosinophils/100 leukocytes in Blood by Automated count Ordered By: Esteban Bunting on 02-07-1750Fmdoapobuhd/100 WBC (Bld)3.5 %Normal. [facility] CampusComment on above:Performed By: #### CBC #### [place] [address] USAErythrocyte distribution width [Ratio] by Automated count Ordered By: Esteban Bunting on 64-90-4970Fjtpeaxgjzo distribution width (RBC) [Ratio]14.2 %Qajrze03.0-14.8[facility] CampusComment on above: Performed By: #### CBC #### [place] [address] USAErythrocytes [#/volume] in Blood by Automated countOrdered By: Esteban Bunting on 22-99-9559MZQ (Bld) [#/Vol]3.90 10*6/uLNormal3.90-5.60 [facility] CampusComment on above:Performed By: #### CBC #### [facility] [address] [place] [address] USAHematocrit [Volume Fraction] of Blood by Automated count Ordered By: Esteban Bunting on 21-78-2726Pjtbtxsibj (Bld) [Volume fraction]35.7 % Low38.8-50.0[facility] CampusComment on above:Performed By: #### CBC #### [place] [address] USAHemoglobin [Mass/volume] in BloodOrdered By: Esteban Bunting on 60-72-0292Lesfsumexm (Bld) [Mass/Vol]11.6 g/dLLow13.0-17.0[facility] CampusComment on above:Performed By: #### CBC #### [place] [address] USALeukocytes [#/volume] corrected for nucleated erythrocytes in Blood by Automated counOrdered By: Esteban Bunting on 19-61-2939GMV corrected for nucl RBC Auto (Bld) [#/Vol]7.2 10*3/uL4.1-10.5FMercy Health Kings Mills HospitalLeukocytes [#/volume] in Blood by Automated countOrdered By: Esteban Bunting on 28-59-7653FKL (Bld) [#/Vol]7.2 10*3/uLNormal4.1-10.5FMercy Health Kings Mills HospitalComment on above:Performed By: #### CBC #### [place] [address] USALymphocytes [#/volume] in Blood by Automated countOrdered By: Esteban Bunting on 85-63-7816Cgaeolwcoda (Bld) [#/Vol]1.5 10*3/uLNormal 1.00-4.8[facility] CampusComment on above:Performed By: #### CBC #### [place] [address] USALymphocytes/100 leukocytes in Blood by Automated count Ordered By: Esteban Bunting on 03-38-1663Gxvqselfjnj/100 WBC (Bld)20.4 %Normal. [facility] CampusComment on above:Performed By: #### CBC #### [facility] [address]H [Entitic mass] by Automated countOrdered By: Esteban Bunting on 60-02-7268OXU (RBC) [Entitic mass]29.8 luSjfikg29.5-35.2FMercy Health Kings Mills HospitalComment on above:Performed By: #### CBC #### [facility] [address] Auto (RBC) [Mass/Vol]Ordered By: Esteban Bunting on 19-28-0800FCXO (RBC) [Mass/Vol]32.7 g/dL32.5-35.6FMemorial Health SystemV [Entitic volume] by Automated countOrdered By: Esteban Bunting on 58-51-7063NUW (RBC) [Entitic vol]91.4 sZSditet45.5-101[facility] CampusComment on above:Performed By: #### CBC #### [place] [address] USAMonocytes [#/volume] in Blood by Automated countOrdered By: Esteban Bunting on 31-54-2977Ztkgmelhh (Bld) [#/Vol]0.8 10*3/uLNormal0.0-0.8 [facility] CampusComment on above:Performed By: #### CBC #### [facility] [address] [place] [address] USAMonocytes/100 leukocytes in Blood by Automated count Ordered By: Esteban Bunting on 04-13-4789Jhargpcbs/100 WBC (Bld)10.7 %Normal. [facility] CampusComment on above:Performed By: #### CBC #### [place] [address] USANeutrophils [#/volume] in Blood by Automated countOrdered By: Esteban Bunting on 24-53-1733Uriccsgfebe (Bld) [#/Vol]4.7 10*3/uLNormal 1.8-7.7FMercy Health Kings Mills HospitalComment on above:Performed By: #### CBC #### [facility] [address] [place] [id number] USANeutrophils/100 leukocytes in Blood by Automated count Ordered By: Esteban Bunting on 27-52-4772Vwybqbzuxmb/100 WBC (Bld)64.7 %Normal. [facility] CampusComment on above:Performed By: #### CBC #### [facility] [address] [place] [address] USANucleated erythrocytes [Presence] in Blood by Automated countOrdered By: Esteban Bunting on 27-41-9612Zeaofkbax RBC Auto Ql (Bld)0.1 /100{WBC}0-0.5FMercy Health Kings Mills HospitalPlatelet mean volume [Entitic volume] in Blood by Automated countOrdered By: Esteban Bunting on 03-17-2025 Platelet mean volume (Bld) [Entitic vol]7.9 fLNormal6.6-10.1FMercy Health Kings Mills HospitalComment on above:Performed By: #### CBC #### [place] [id number] USAPlatelets [#/volume] in Blood by Automated countOrdered By: Esteban Bunting on 18-82-1668Oldlftzdg (Bld) [#/Vol]209 10*3/uEFmoohd079-373 [facility] CampusComment on above:Performed By: #### CBC #### [facility] [address] [place] [id number] USABasic Metab w/rfx MGon 11-15-2322Lbkpx gap [Moles/Vol]12 mmol/LNormal9-16[facility] HospitalComment on above:Performed By: #### CDP, BMPX #### [facility] [address] [place] [address] Endless Belt Finisher: Arturo Mac DOCalcium [Mass/Vol]9.2 mg/dLNormal8.6-10.4 [facility] HospitalComment on above:Performed By: #### MANNY, BMPX #### [facility] [address] [facility] [place] [address] Endless Belt Finisher: rAturo Mac DOChloride [Moles/Vol]103 mmol/GBnzolk87-127 [facility] HospitalComment on above:Performed By: #### CDP, BMPX #### [facility] [address] [facility] [place] [address] Endless Belt Finisher: Arturo Mac DOCO2 [Moles/Vol]25 mmol/EWmlnge25-50NsgmrOur Lady Of Mercy HospitalComment on above:Performed By: #### MANNY, BMPX #### [facility] [address] [facility] [place] [address] Endless Belt Finisher: Arturo Mac DOCreatinine [Mass/Vol]2.1 mg/dLHigh0.7-1.2 [facility] HospitalComharbor beach community hospital on above:Performed By: #### MANNY, BMPX #### [facility] [address] [facility] [place] [address] Endless Belt Finisher: Arturo Mac DOGFR/1.73 sq M.predicted among non-blacks MDRD (S/P/Bld) [Vol rate/Area]30 mL/min/{1.73_m2}Low>60[facility] Comment on above:Result Comment: These results [...] tubular secretion.Performed By: #### CDP, BMPX #### [facility] [address] [facility] [place] [address] Endless Belt Finisher: Arturo Mac DOGlucose [Mass/Vol]111 mg/eLTnnv04-12AobvdOhioHealth Marion General HospitalComment on above:Performed By: #### MANNY, BMPX #### [facility] [address] [facility] [place] [address] Endless Belt Finisher: Arturo Mac DOPotassium [Moles/Vol]4.3 mmol/LNormal3.7-5.3 [facility] HospitalComharbor beach community hospital on above:Performed By: #### MANNY, BMPX #### [facility] [address] [facility] [place] [address] Endless Belt Finisher: Arturo Mac DOSodium [Moles/Vol]140 mmol/CCuenuu432-499 [facility] HospitalComharbor beach community hospital on above:Performed By: #### MANNY, BMPX #### [facility] [address] [facility] [place] [address] Endless Belt Finisher: Arturo Mac DOUrea nitrogen [Mass/Vol]33 mg/dLHigh8-23[facility] HospitalComharbor beach community hospital on above:Performed By: #### MANNY, BMPX #### [facility] [address] [place] [address] Endless Belt Finisher: Arturo Mac DOBasic Metabolic Panel w/ Reflex to MGon 45-43-4168Jolon gap [Moles/Vol]12 mmol/L9 - 16 mmol/LBon [facility] Calcium [Mass/Vol]9.2 mg/dL8.6 - 10.4 mg/dLBon Secours [facility] HealthChloride [Moles/Vol]103 mmol/L98 - 107 mmol/LBon Secours [facility] Regional Medical CenterCO2 [Moles/Vol]25 mmol/L20 - 31 mmol/LBon [facility]ours [facility] Regional Medical CenterCreatinine [Mass/Vol]2.1 mg/dLHigh 0.7 - 1.2 mg/dLBon Secours Salem Regional Medical CenterEst, Glom Filt Kxyi33Ule- PINFBon Secours Fulton County Health Centery HealthComment on above: These results are not [...] that affects renal tubular secretion. Glucose [Mass/Vol]111 mg/mWDnzi56 - 99 mg/dLBon [facility] Interpretation and review of laboratory resultsAbnormalBon [facility] Potassium [Moles/Vol]4.3 mmol/L3.7 - 5.3 mmol/LBon SecSt. John of God HospitalSodium [Moles/Vol]140 mmol/L136 - 145 mmol/LBon SecSt. John of God HospitalUrea nitrogen [Mass/Vol]33 mg/dLHigh8 - 23 mg/dLBon SecAscension All Saints Hospital SatelliteCBC auto differentialon 87-51-0616Tifdiidjm (Bld) [#/Vol]0.05 10*3/uLBon Secours Fulton County Health CenterApertio University Hospitals Geneva Medical CenterBasophils/100 WBC (Bld)1 %0 - 2 %Bon [facility]St. [facility] Health Eosinophils (Bld) [#/Vol]0.27 10*3/uLBon Secours Salem Regional Medical CenterEosinophils/100 WBC (Bld)4 %0 - 4 %[facility] HealthErythrocyte distribution width (RBC) [Ratio]14.0 %11.5 - 14.9 %[facility] Centery HealthHematocrit (Bld) [Volume fraction]36.6 %Low41.0 - 53.0 %Bon SecLegacy Healthy University Hospitals Geneva Medical CenterHemoglobin (Bld) [Mass/Vol]11.3 g/dLLow13.5 - 17.5 g/dLBon SecSt. John of God HospitalImmature granulocytes (Bld) [#/Vol]0.03 10*3/uLBon Secours [facility]cy [facility] Medical CenterImmature granulocytes/100 WBC (Bld)0 %0[facility] Centery HealthInterpretation and review of laboratory resultsAbnormalBon SecLegacy Healthy HealthLymphocytes/100 WBC (Bld)25 %24 - 44 %[facility] HealthLymphocytes/100 WBC (Bld)1.83 %[facility] HospitalH (RBC) [Entitic mass]29.2 pg26.0 - 34.0 pgJohnston Memorial HospitalHC (RBC) [Mass/Vol]30.9 g/dLLow31.0 - 37.0 g/dLBon [facility] MCV (RBC) [Entitic vol]94.6 fL80.0 - 100.0 fLCumberland Hospital Monocytes/100 WBC (Bld)11 %3 - 12 %[facility] HospitalMonocytes/100 WBC (Bld)0.80 %[facility]umberland HospitalNeutrophils/100 WBC (Bld)59 %36 - 66 %[facility]umberland HospitalNucleated RBC/100 WBC (Bld) [Ratio]0.0 %0 per 100 WBCCumberland HospitalPlatelet mean volume (Bld) [Entitic vol]9.5 fL8.0 - 13.5 fL [facility] HospitalPlatelets (Bld) [#/Vol]206 10*3/uLCumberland HospitalRBC (Bld) [#/Vol]3.87 10*6/uLLow4.21 - 5.77 m/[facility] Segmented neutrophils/100 WBC (Bld)4.28 %[facility]umberland HospitalWBC other (Bld) [#/Vol]7.3Bon [facility] HealthCBC with Diffon 87-87-3061Ghl. Basophil0.05 k/uLNormal0.00-0.20[facility] HospitalComment on above:Performed By: #### CDP, BMPX #### [facility] [address] [place] [address] Endless Belt Finisher: Arturo Mac DOAbs.Imm.Granulocyte0.03 k/uLNormal0.00-0.30 [facility] HospitalComment on above:Performed By: #### CDP, BMPX #### [facility] [address] [place] [address] Endless Belt Finisher: Arturo Mac DOAbs.Neutrophil (Seg)4.28 k/uLNormal1.50-8.10 [facility] on above:Performed By: #### CDP, BMPX #### [facility] [place] [address] Endless Belt Finisher: Arturo Mac DOBasophils/100 WBC (Bld)1 %Normal0-2[facility] on above:Performed By: #### MANNY, BMPX #### [facility] [address] [place] [address] Endless Belt Finisher: Arturo Mac DOEosinophils (Bld) [#/Vol]0.27 10*3/uLNormal 0.00-0.44[facility] on above:Performed By: #### MANNY, BMPX #### [facility] [address] [place] [address] Endless Belt Finisher: Arturo Mac DOEosinophils/100 WBC (Bld)4 %Normal0-4[facility] on above:Performed By: #### MANNY, BMPX #### [place] [address] Endless Belt Finisher: Arturo Mac DOErythrocyte distribution width (RBC) [Ratio] 14.0 %Yqvwra62.5-14.9[facility] on above:Performed By: #### MANNY, BMPX #### [facility] [address] [place] [address] Endless Belt Finisher: Arturo Mac DOHematocrit (Bld) [Volume fraction]36.6 %Low 41.0-53.0[facility] on above:Performed By: #### MANNY, BMPX #### [facility] [place] [address] Endless Belt Finisher: Arturo Mac DOHemoglobin (Bld) [Mass/Vol]11.3 g/dLLow 13.5-17.5[facility] on above:Performed By: #### CDP, BMPX #### [facility] [address] [place] [address] Endless Belt Finisher: Arturo Mac DOImmature granulocytes/100 WBC (Bld)0 %Normal0 [facility] HospitalComharbor beach community hospital on above:Performed By: #### MANNY, BMPX #### [facility] [address] [place] [address] Endless Belt Finisher: Arturo Mac DOLymphocytes (Bld) [#/Vol]1.83 10*3/uLNormal 1.10-3.70[facility] HospitalComharbor beach community hospital on above:Performed By: #### MANNY, BMPX #### [facility] [address] [place] [address] Endless Belt Finisher: Arturo Mac DOLymphocytes/100 WBC (Bld)25 %Ittvxw93-63MwonmGalion Community Hospital on above:Performed By: #### MANNY, BMPX #### [facility] [address] [place] [address] Endless Belt Finisher: Arturo Mac DOMCH (RBC) [Entitic mass]29.2 pgNormal 26.0-34.0[facility] HospitalComharbor beach community hospital on above:Performed By: #### CDP, BMPX #### [facility] [address] [place] [address] Endless Belt Finisher: Arturo Mac DOMCHC (RBC) [Mass/Vol]30.9 g/dLLow31.0-37.0 [facility] HospitalComharbor beach community hospital on above:Performed By: #### CDP, BMPX #### [facility] [place] [address] Endless Belt Finisher: Arturo Mac DOMCV (RBC) [Entitic vol]94.6 fLNormal 80.0-100.0[facility] HospitalComharbor beach community hospital on above:Performed By: #### CDP, BMPX #### [facility] [address] [place] [address] Endless Belt Finisher: Arturo Mac DOMonocytes (Bld) [#/Vol]0.80 10*3/uLNormal 0.10-1.20[facility] on above:Performed By: #### MANNY, BMPX #### [facility] [address] [place] [address] Endless Belt Finisher: Arturo Mac DOMonocytes/100 WBC (Bld)11 %Normal3-12[facility] on above:Performed By: #### MANNY, BMPX #### [facility] [address] [place] [address] Endless Belt Finisher: Arturo Mac DONeutrophil (Seg)59 %Jqoaxw04-79VqiczGalion Community Hospital on above:Performed By: #### MANNY, BMPX #### [facility] [address] [place] [address] Endless Belt Finisher: Arturo Mac DONRBC Automated0.0 per 100 AFJNoqvoh8ZgxqpOur Lady Of Mercy HospitalComharbor beach community hospital on above:Performed By: #### MANNY, BMPX #### [facility] [address] [place] [address] Endless Belt Finisher: Arturo Mac DOPlatelet mean volume (Bld) [Entitic vol]9.5 fLNormal8.0-13.5[facility] on above:Performed By: #### CDP, BMPX #### [facility] [address] [facility] [place] [address] Endless Belt Finisher: Arturo Mac DOPlatelets (Bld) [#/Vol]206 10*3/uLNormal 150-450[facility] HospitalComharbor beach community hospital on above:Performed By: #### MANNY, BMPX #### [facility] [address] [facility] [place] [address] Endless Belt Finisher: Arturo Mac DORBC (Bld) [#/Vol]3.87 10*6/uLLow4.21-5.77 [facility] on above:Performed By: #### MANNY, BMPX #### [facility] [address] [facility] [place] [address] Endless Belt Finisher: Arturo Mac DOWBC (Bld) [#/Vol]7.3 10*3/uLNormal3.5-11.0 [facility] HospitalComharbor beach community hospital on above:Performed By: #### MANNY, BMPX #### [facility] [address] [facility] [place] [address] Endless Belt Finisher: Arturo Mac DOBasic Metabolic Panelon 18-92-0333Wulfy gap [Moles/Vol]12 mmol/L9 - 16 mmol/LBon [facility] HealthCalcium [Mass/Vol]9.4 mg/dL8.6 - 10.4 mg/dLBon Secours [facility] HealthChloride [Moles/Vol]102 mmol/L98 - 107 mmol/LBon Secours [facility] Health Centery HealthCO2 [Moles/Vol]19 mmol/LLow20 - 31 mmol/LBon Secours [facility] HealthCreatinine [Mass/Vol]1.8 mg/dLHigh0.7 - 1.2 mg/dLBon Secours Fulton County Health Centery HealthEst, Glom Filt Xkif87Gfn- PINFBon SecSt. John of God HospitalComharbor beach community hospital on above: These results are not [...] that affects renal tubular secretion. Glucose [Mass/Vol]124 mg/hCSshc98 - 99 mg/dLBon [facility] Interpretation and review of laboratory resultsAbnormalCumberland Hospital Potassium [Moles/Vol]4.7 mmol/L3.7 - 5.3 mmol/LBon Mount St. Mary HospitalSodium [Moles/Vol]133 mmol/QDqc546 - 145 mmol/LBon [address]. Mary HospitalUrea nitrogen [Mass/Vol]28 mg/dLHigh8 - 23 mg/dLBon [facility] HealthBasic Metabolic Profon 38-29-0201Liykh gap [Moles/Vol]12 mmol/LNormal9-16 [facility] HospitalComment on above:Performed By: #### BMP #### [facility] [address] [place] [address] Endless Belt Finisher: Arturo Mac DOCalcium [Mass/Vol]9.4 mg/dLNormal8.6-10.4 [facility] HospitalComharbor beach community hospital on above:Performed By: #### BMP #### [facility] [place] [address] Endless Belt Finisher: Artruo Mac DOChloride [Moles/Vol]102 mmol/JQfawpb36-414 [facility] HospitalComharbor beach community hospital on above:Performed By: #### BMP #### [facility] [address] [place] [address] Endless Belt Finisher: Arturo Mac DOCO2 [Moles/Vol]19 mmol/ZXya12-20OfypyOur Lady Of Mercy [facility] on above:Performed By: #### BMP #### [facility] [address] [place] [address], [place] [address] Endless Belt Finisher: Arturo Mac DOCreatinine [Mass/Vol]1.8 mg/dLHigh0.7-1.2 [facility] HospitalComment on above:Performed By: #### BMP #### [facility] [address] [place] [address]. [place] [address] Endless Belt Finisher: Arturo Mac DOGFR/1.73 sq M.predicted among non-blacks MDRD (S/P/Bld) [Vol rate/Area]36 mL/min/{1.73_m2}Low>60[facility] Comment on above:Result Comment: These results [...] renal tubular secretion.Performed By: #### BMP #### [facility] [address] [place] [address]. [place] [address] Endless Belt Finisher: Arturo Mac DOGlucose [Mass/Vol]124 mg/uKGwmo21-72JrbcyOhioHealth Marion General HospitalComment on above:Performed By: #### BMP #### [facility] [address] [place] [address]. [place] [address] Endless Belt Finisher: Arturo Mac DOPotassium [Moles/Vol]4.7 mmol/LNormal3.7-5.3 [facility] HospitalComment on above:Performed By: #### BMP #### [facility] [address] [place] [address]. [place] [address] Endless Belt Finisher: Arturo Mac DOSodium [Moles/Vol]133 mmol/CPos087-483RwzdhOur Lady Of Mercy HospitalComment on above:Performed By: #### BMP #### [facility] [place] [address] Endless Belt Finisher: Arturo Mac DOUrea nitrogen [Mass/Vol]28 mg/dLHigh8-23[facility] HospitalComhar[facility] on above:Performed By: #### BMP #### [facility] [address] [place] [address] Endless Belt Finisher: Arturo Mac DOSpecimen Rejectionon [id number] for rejectionUnable to perform testing: Specimen hemolyzed.NormalOur Lady Of Mercy HospitalComharbor beach community hospital on above:Performed By: #### BMP, MG #### [facility] [address] [place] [address] Endless Belt Finisher: Arturo Mac DOSource of sample.BLOODNormalOur Lady Of Mercy HospitalComharbor beach community hospital on above:Performed By: #### BMP, MG #### [facility] [address] [place] [address] Endless Belt Finisher: Arturo Mac DOTest orderedBMPNormalOur Lady Of Mercy HospitalComharbor beach community hospital on above:Performed By: #### BMP, MG #### [facility] [address] [place] [address] Endless Belt Finisher: Arturo Mac DOBasic Metab w/rfx MGon [id number] gap [Moles/Vol]11 mmol/LNormal9-16[facility] HospitalComhar[facility] community hospital on above: Performed By: #### BMP, MG #### [facility] [address] [place] [address] Endless Belt Finisher: Arturo Mac DOCalcium [Mass/Vol]9.4 mg/dLNormal8.6-10.4 [facility] HospitalComhar[facility] on above:Performed By: #### BMP, MG #### [facility] [address] [place] [address] Endless Belt Finisher: Arturo Mac DOChloride [Moles/Vol]103 mmol/JJajevx27-117 [facility] HospitalComment on above:Performed By: #### BMP, MG #### [facility] [address] [facility] [place] [address] Endless Belt Finisher: Artuor Mac DOCO2 [Moles/Vol]25 mmol/JUnkewc65-35AughnOur Lady Of Mercy HospitalComharbor beach community hospital on above:Performed By: #### BMP, MG #### [facility] [address] [place] [address]. [place] [address] Endless Belt Finisher: Arturo Mac DOCreatinine [Mass/Vol]1.8 mg/dLHigh0.7-1.2 [facility] HospitalComhar[facility] community hospital on above:Performed By: #### BMP, MG #### [facility] [address] [place] [address]. [place] [address] Endless Belt Finisher: Arturo Mac DOGFR/1.73 sq M.predicted among non-blacks MDRD (S/P/Bld) [Vol rate/Area]36 mL/min/{1.73_m2}Low>60[facility] Comment on above:Result Comment: These results [...] tubular secretion.Performed By: #### BMP, MG #### [facility] [place] [address] Endless Belt Finisher: Arturo Mac DOGlucose [Mass/Vol]102 mg/nIMjgo03-38BlmsaOhioHealth Marion General HospitalComment on above:Performed By: #### BMP, MG #### [facility] [address] [facility] [place] [address] Endless Belt Finisher: Arturo Mac DOPotassium [Moles/Vol]4.9 mmol/LNormal3.7-5.3 [facility] HospitalComhar[facility] beach community hospital on above:Result Comment: Specimen hemolysis has exceeded the interference as defined by Manuela. Value may be falsely increased. Suggest recollection if clinically indicated.Performed By: #### BMP, MG #### [facility] [place] [address] Endless Belt Finisher: Arturo Mac DOSodium [Moles/Vol]139 mmol/BAlrsgt029-164 [facility] HospitalComhar[facility] hospital on above:Performed By: #### BMP, MG #### [facility] [address] [place] [address]. [place] [address] Endless Belt Finisher: Arturo Mac DOUrea nitrogen [Mass/Vol]34 mg/dLHigh8-23[facility] HospitalComhar[facility] beach community hospital on above:Performed By: #### BMP, MG #### [facility] [address] [place] [address]. [place] [address] Endless Belt Finisher: Arturo Mac DOBasic Metabolic Panel w/ Reflex to MGon [id number] gap [Moles/Vol]11 mmol/L9 - 16 mmol/LBon [facility] Calcium [Mass/Vol]9.4 mg/dL8.6 - 10.4 mg/dLBon [facility] HealthChloride [Moles/Vol]103 mmol/L98 - 107 mmol/LBon [facility] HospitalCO2 [Moles/Vol]25 mmol/L20 - 31 mmol/LBon [facility] Medical CenterCreatinine [Mass/Vol]1.8 mg/dLHigh 0.7 - 1.2 mg/dLBon [facility] Centerours [facility] Medical CenterEst, Glom Filt Kqyi82Qde- PINFBon Mount St. Mary HospitalComment on above: These results are not intended [...] that affects renal tubular secretion. Glucose [Mass/Vol]102 mg/vEXefy01 - 99 mg/dLBon [facility] Interpretation and review of laboratory resultsAbnormalCumberland Hospital Potassium [Moles/Vol]4.9 mmol/L3.7 - 5.3 mmol/LBon [facility] Mary HospitalComment on above:Specimen hemolysis has exceeded the interference as defined by Manuela. Value may be falsely increased. Suggest recollection if clinically indicated. Sodium [Moles/Vol]139 mmol/L136 - 145 mmol/LBon [facility] Mary HospitalUrea nitrogen [Mass/Vol]34 mg/dLHigh8 - 23 mg/dLBon [facility] / Avera HealthBasic Metab w/rfx MGon [id number] gap [Moles/Vol]13 mmol/L Normal9-16[facility] HospitalComment on above:Performed By: #### BMPX, CDP #### [facility] [address] [place] [address] Endless Belt Finisher: Arturo Mac DOCalcium [Mass/Vol]9.1 mg/dLNormal8.6-10.4 [facility] on above:Performed By: #### BMPX, CDP #### [facility] [address] [place] [address] Endless Belt Finisher: Arturo Mac DOChloride [Moles/Vol]102 mmol/VAgbtdn36-886 [facility] on above:Performed By: #### BMPX, CDP #### [facility] [place] [address] Endless Belt Finisher: Arturo Mac DOCO2 [Moles/Vol]23 mmol/YBlupem86-34Gqiis Powell HospitalComment on above:Performed By: #### BMPX, CDP #### [facility] [address] [facility] [place] [address] Endless Belt Finisher: Arturo Mac DOCreatinine [Mass/Vol]2.0 mg/dLHigh0.7-1.2 [facility] HospitalComment on above:Performed By: #### BMPX, CDP #### [facility] [facility] [place] [address] Endless Belt Finisher: Arturo Mac DOGFR/1.73 sq M.predicted among non-blacks MDRD (S/P/Bld) [Vol rate/Area]32 mL/min/{1.73_m2}Low>60[facility] Comment on above:Result Comment: These results [...] tubular secretion.Performed By: #### BMPX, CDP #### [facility] [address] [facility] [place] [address] Endless Belt Finisher: Arturo Mac DOGlucose [Mass/Vol]127 mg/bKGmcl22-38HrcnzOhioHealth Marion General HospitalComment on above:Performed By: #### BMPX, CDP #### [facility] [facility] [place] [address] Endless Belt Finisher: Arturo Mac DOPotassium [Moles/Vol]4.3 mmol/LNormal3.7-5.3 [facility] HospitalComhar[facility] community hospital on above:Performed By: #### BMPX, CDP #### [facility] [address] [place] [address]. [place] [address] Endless Belt Finisher: Fanelly, Arturo, DOSodium [Moles/Vol]138 mmol/GSzbzbv102-326 [facility] HospitalComment on above:Performed By: #### BMPX, CDP #### [facility] [address] [facility] [place] [address] Endless Belt Finisher: Arturo Mac DOUrea nitrogen [Mass/Vol]41 mg/dLHigh8-23[facility] HospitalComment on above:Performed By: #### BMPX, CDP #### [facility] [address] [facility] [place] [address] Endless Belt Finisher: Arturo Mac DOBasic Metabolic Panel w/ Reflex to MGon [id number] gap [Moles/Vol]13 mmol/L9 - 16 mmol/LBon [facility] Calcium [Mass/Vol]9.1 mg/dL8.6 - 10.4 mg/dLBon [facility] HospitalChloride [Moles/Vol]102 mmol/L98 - 107 mmol/LBon [facility] HospitalCO2 [Moles/Vol]23 mmol/L20 - 31 mmol/LBon [facility] HospitalCreatinine [Mass/Vol]2.0 mg/dLHigh 0.7 - 1.2 mg/dLBon [facility] HospitalEst, Glom Filt Coir91Atp- PINFBon [facility] HospitalComment on above: These results are not intended [...] that affects renal tubular secretion. Glucose [Mass/Vol]127 mg/vVIloz05 - 99 mg/dLBon [facility] Interpretation and review of laboratory resultsAbnormalBon [facility] Potassium [Moles/Vol]4.3 mmol/L3.7 - 5.3 mmol/LBon [facility] Medical CenterTransinsight [facility]ult[facility] Health CenterApertio [facility] Geneva Medical CenterSodium [Moles/Vol]138 mmol/L136 - 145 mmol/LBon [facility] Mary HospitalUrea nitrogen [Mass/Vol]41 mg/dLHigh8 - 23 mg/dLBon [facility] Medical CenterBon [facility] Medical CenterCBC auto differentialon [id number] (Bld) [#/Vol]0.04 10*3/uLBon [facility] Medical CenterBasophils/100 WBC (Bld)1 %0 - 2 %Bon [facility]St. [facility] Eosinophils (Bld) [#/Vol]0.39 10*3/uLBon [facility] Medical CenterEosinophils/100 WBC (Bld)5 %High0 - 4 %[facility] Medical CenterErythrocyte distribution width (RBC) [Ratio]14.1 %11.5 - 14.9 %Bon SecSt. John of God HospitalHematocrit (Bld) [Volume fraction]37.2 %Low41.0 - 53.0 %Bon SecSt. John of God HospitalHemoglobin (Bld) [Mass/Vol]11.2 g/dLLow13.5 - 17.5 g/dLBon [facility] Medical CenterImmature granulocytes (Bld) [#/Vol]0.08 10*3/uLBon [facility] Medical CenterImmature granulocytes/100 WBC (Bld)1 %Uucs2Mek [facility] HospitalInterpretation and review of laboratory resultsAbnormalBon SecSt. John of God HospitalLymphocytes/100 WBC (Bld)29 %24 - 44 %[facility] SecSt. John of God HospitalLymphocytes/100 WBC (Bld)2.24 %Bon SecThe Bellevue HospitalH (RBC) [Entitic mass]28.7 pg26.0 - 34.0 pgBon SecThe Bellevue HospitalHC (RBC) [Mass/Vol]30.1 g/dLLow31.0 - 37.0 g/dLBon Secours [facility] Clinic Union HospitalV (RBC) [Entitic vol]95.4 fL80.0 - 100.0 fLBon SecSt. John of [facility] Hospital Monocytes/100 WBC (Bld)8 %3 - 12 %[facility] CenterMonocytes/100 WBC (Bld)0.59 %Bon SecSt. John of God HospitalNeutrophils/100 WBC (Bld)56 %36 - 66 %Bon SecSt. John of God HospitalNucleated RBC/100 WBC (Bld) [Ratio]0.0 %0 per 100 WBCCumberland HospitalPlatelet mean volume (Bld) [Entitic vol]9.5 fL8.0 - 13.5 fL [facility] HospitalPlatelets (Bld) [#/Vol]231 10*3/uLCumberland HospitalRBC (Bld) [#/Vol]3.90 10*6/uLLow4.21 - 5.77 m/uLCumberland Hospital Segmented neutrophils/100 WBC (Bld)4.31 %[facility] HospitalWBC other (Bld) [#/Vol]7.7Bon [facility] / Avera HealthCBC with Diffon [id number]. Basophil0.04 k/uLNormal0.00-0.20[facility] HospitalComment on above:Performed By: #### BMPX, CDP #### [facility] [address] [place] [address] Endless Belt Finisher: Arturo Mac DOAbs.Imm.Granulocyte0.08 k/uLNormal0.00-0.30 [facility] HospitalComhar[facility] beach community hospital on above:Performed By: #### BMPX, CDP #### [facility] [address] [place] [address] Endless Belt Finisher: Arturo Mac DOAbs.Neutrophil (Seg)4.31 k/uLNormal1.50-8.10 [facility] HospitalComhar[facility] beach community hospital on above:Performed By: #### BMPX, CDP #### [facility] [place] [address] Endless Belt Finisher: Arturo Mac DOBasophils/100 WBC (Bld)1 %Normal0-2MOhioHealth Marion General HospitalComharbor beach community hospital on above:Performed By: #### BMPX, CDP #### [facility] [address] [place] [address] Endless Belt Finisher: Arturo Mac DOEosinophils (Bld) [#/Vol]0.39 10*3/uLNormal 0.00-0.44[facility] on above:Performed By: #### BMPX, CDP #### [facility] [place] [address] Endless Belt Finisher: Arturo Mac DOEosinophils/100 WBC (Bld)5 %High0-4[facility] on above:Performed By: #### BMPX, CDP #### [facility] [address] [place] [address] Endless Belt Finisher: Arturo Mac DOErythrocyte distribution width (RBC) [Ratio] 14.1 %Ujnvaf88.5-14.9[facility] on above:Performed By: #### BMPX, CDP #### [facility] [address] [place] [address] Endless Belt Finisher: Arturo Mac DOHematocrit (Bld) [Volume fraction]37.2 %Low 41.0-53.0[facility] on above:Performed By: #### BMPX, CDP #### [facility] [address] [place] [address] Endless Belt Finisher: Arturo Mac DOHemoglobin (Bld) [Mass/Vol]11.2 g/dLLow 13.5-17.5[facility] on above:Performed By: #### BMPX, CDP #### [facility] [address] [place] [address] Endless Belt Finisher: Arturo Mac DOImmature granulocytes/100 WBC (Bld)1 %High0 [facility] HospitalComhar[facility] beach community hospital on above:Performed By: #### BMPX, CDP #### [facility] [address] [place] [address] Endless Belt Finisher: Arturo Mac DOLymphocytes (Bld) [#/Vol]2.24 10*3/uLNormal 1.10-3.70[facility] HospitalComment on above:Performed By: #### BMPX, CDP #### [facility] [address] [place] [address] Endless Belt Finisher: Arturo Mac DOLymphocytes/100 WBC (Bld)29 %Unhtcr04-11RvhwjOur Lady Of Mercy HospitalComharbor beach community hospital on above:Performed By: #### BMPX, CDP #### [facility] [address] [place] [address] Endless Belt Finisher: Arturo Mac DOMCH (RBC) [Entitic mass]28.7 pgNormal 26.0-34.0[facility] HospitalComment on above:Performed By: #### BMPX, CDP #### [facility] [address] [place] [address] Endless Belt Finisher: Arturo Mac DOMCHC (RBC) [Mass/Vol]30.1 g/dLLow31.0-37.0 [facility] HospitalComharbor [facility] community hospital on above:Performed By: #### BMPX, CDP #### [facility] [address] [place] [address] Endless Belt Finisher: Arturo Mac DOMCV (RBC) [Entitic vol]95.4 fLNormal 80.0-100.0[facility] HospitalComharbor beach community hospital on above:Performed By: #### BMPX, CDP #### [facility] [address] [place] [address] Endless Belt Finisher: Arturo Mac DOMonocytes (Bld) [#/Vol]0.59 10*3/uLNormal 0.10-1.20[facility] HospitalComhar[facility] beach community hospital on above:Performed By: #### BMPX, CDP #### [facility] [address] [facility] [place] [address] Endless Belt Finisher: Arturo Mac DOMonocytes/100 WBC (Bld)8 %Normal3-12[facility] HospitalComharbor beach community hospital on above:Performed By: #### BMPX, CDP #### [facility] [facility] [place] [address] Endless Belt Finisher: Arturo Mac DONeutrophil (Seg)56 %Gqcrbh91-80OtjyxOur Lady Of Mercy HospitalComharbor beach community hospital on above:Performed By: #### BMPX, CDP #### [facility] [facility] [place] [address] Endless Belt Finisher: Arturo Mac DONRBC Automated0.0 per 100 QDVApuxga0XmnjrOur Lady Of Mercy HospitalComharbor beach community hospital on above:Performed By: #### BMPX, CDP #### [facility] [address] [place] [address]. [place] [address] Endless Belt Finisher: Arturo Mac DOPlatelet mean volume (Bld) [Entitic vol]9.5 fLNormal8.0-13.5[facility] on above:Performed By: #### BMPX, CDP #### [facility] [address] [place] [address]. [place] [address] Endless Belt Finisher: Arturo Mac DOPlatelets (Bld) [#/Vol]231 10*3/uLNormal 150-450[facility] HospitalComharbor beach community hospital on above:Performed By: #### BMPX, CDP #### [facility] [facility] [place] [address] Endless Belt Finisher: Arturo Mac DORBC (Bld) [#/Vol]3.90 10*6/uLLow4.21-5.77 [facility] HospitalComment on above:Performed By: #### BMPX, CDP #### [facility] [address] [facility] [place] [address] Endless Belt Finisher: Arturo Mac DOWBC (Bld) [#/Vol]7.7 10*3/uLNormal3.5-11.0 [facility] HospitalComment on above:Performed By: #### BMPX, CDP #### [facility] [address] [facility] [place] [address] Endless Belt Finisher: Arturo Mac DOBasic Metabolic Panelon [id number] gap [Moles/Vol]13 mmol/L9 - 16 mmol/LBon [facility] InterResolve HealthCalcium [Mass/Vol]9.2 mg/dL8.6 - 10.4 mg/dLBon [facility]christ[facility] InterResolve HealthChloride [Moles/Vol]100 mmol/L98 - 107 mmol/LBon [facility] InterResolve [facility] Medical CenterCO2 [Moles/Vol]25 mmol/L20 - 31 mmol/LBon [facility] Medical CenterApertio [facility] Medical CenterCreatinine [Mass/Vol]2.0 mg/dLHigh0.7 - 1.2 mg/dLBon [facility] InterResolve HealthEst, Glom Filt Hzlq70Pgl- PINFBon [facility] St[facility] Mary HospitalComment on above: These results are not intended [...] that affects renal tubular secretion. Glucose [Mass/Vol]101 mg/bYNwel27 - 99 mg/dLBon [facility] [employer] Interpretation and review of laboratory resultsAbnormalBon [facility]erman[facility] Medical CenterAgricultural Holdings International Potassium [Moles/Vol]4.7 mmol/L3.7 - 5.3 mmol/LBon SecTianma Medical Group [facility] Medical CenterSodium [Moles/Vol]138 mmol/L136 - 145 mmol/LBon [facility] Health Medical CenterDwollaUrea nitrogen [Mass/Vol]44 mg/dLHigh8 - 23 mg/dLBon [facility] HospitalBon [facility] HospitalBasic Metabolic Profon [id number] gap [Moles/Vol]13 mmol/LNormal9-16 [facility] HospitalComment on above:Performed By: #### BMP, MG #### [facility] [address] [facility] [place] [address] Endless Belt Finisher: Arturo Mac DOCalcium [Mass/Vol]9.2 mg/dLNormal8.6-10.4 [facility] HospitalComment on above:Performed By: #### BMP, MG #### [facility] [address] [place] [address] Endless Belt Finisher: Arturo Mac DOChloride [Moles/Vol]100 mmol/RVbzgjt53-530 [facility] HospitalComment on above:Performed By: #### BMP, MG #### [facility] [address] [facility] [place] [address] Endless Belt Finisher: Arturo Mac DOCO2 [Moles/Vol]25 mmol/FQkidlq04-70FsoygOur Lady Of Mercy HospitalComment on above:Performed By: #### BMP, MG #### [facility] [facility] [place] [address] Endless Belt Finisher: Arturo Mac DOCreatinine [Mass/Vol]2.0 mg/dLHigh0.7-1.2 [facility] HospitalComharbor beach community hospital on above:Performed By: #### DHARA, MG #### [facility] [place] [address] Endless Belt Finisher: Arturo Mac DOGFR/1.73 sq M.predicted among non-blacks MDRD (S/P/Bld) [Vol rate/Area]32 mL/min/{1.73_m2}Low>60[facility] Comment on above:Result Comment: These results [...] tubular secretion.Performed By: #### BMP, MG #### [facility] [address] [place] [address] Endless Belt Finisher: Arturo Mac, DOGlucose [Mass/Vol]101 mg/pVLljg35-41UhzvmOhioHealth Marion General HospitalComment on above:Performed By: #### BMP, MG #### [facility] [address] [place] [address] Endless Belt Finisher: Arturo Mac, DOPotassium [Moles/Vol]4.7 mmol/LNormal3.7-5.3 [facility] HospitalComharbor beach community hospital on above:Performed By: #### BMP, MG #### [facility] [address] [place] [address] Endless Belt Finisher: Arturo Mac, DOSodium [Moles/Vol]138 mmol/KTddgvz414-713 [facility] on above:Performed By: #### BMP, MG #### [place], [place] [id number] Endless Belt Finisher: Arturo Mac DOUrea nitrogen [Mass/Vol]44 mg/dLHigh8-23[facility] HospitalComharbor beach community hospital on above:Performed By: #### BMP, MG #### [facility] [address] [place] [address] Endless Belt Finisher: Arturo Mac DOBasic Metab w/rfx MGon [id number] gap [Moles/Vol]9 mmol/LNormal9-16[facility] HospitalComhar[facility] on above: Performed By: #### BMP, MG #### [facility] [address] [facility] [place] [address] Endless Belt Finisher: Arturo Mac DOCalcium [Mass/Vol]9.0 mg/dLNormal8.6-10.4 [facility] HospitalComment on above:Performed By: #### BMP, MG #### [facility] [address] [facility] [place] [address] Endless Belt Finisher: Arturo Mac DOChloride [Moles/Vol]102 mmol/MBcavnv57-373 [facility] HospitalComment on above:Performed By: #### BMP, MG #### [facility] [facility] [place] [address] Endless Belt Finisher: Arturo Mac DOCO2 [Moles/Vol]26 mmol/AFswxfe55-64EuwusOur Lady Of Mercy HospitalComment on above:Performed By: #### BMP, MG #### [facility] [address] [facility] [place] [address] Endless Belt Finisher: Arturo Mac DOCreatinine [Mass/Vol]1.7 mg/dLHigh0.7-1.2 [facility] HospitalComhar[facility] hospital on above:Performed By: #### BMP, MG #### [facility] [address] [place] [address]. [place] [address] Endless Belt Finisher: Arturo Mac DOGFR/1.73 sq M.predicted among non-blacks MDRD (S/P/Bld) [Vol rate/Area]39 mL/min/{1.73_m2}Low>60[facility] Comment on above:Result Comment: These results [...] tubular secretion.Performed By: #### BMP, MG #### [facility] [address] [place] [address] Endless Belt Finisher: Arturo Mac DOGlucose [Mass/Vol]104 mg/gRSyhr51-58BeycdOhioHealth Marion General HospitalComment on above:Performed By: #### BMP, MG #### [facility] [address] [place] [address] Endless Belt Finisher: Arturo Mac, DOPotassium [Moles/Vol]3.7 mmol/LNormal3.7-5.3 [facility] HospitalComhar[facility] community hospital on above:Performed By: #### BMP, MG #### [facility] [address] [place] [address] Endless Belt Finisher: Arturo Mac, DOSodium [Moles/Vol]137 mmol/NHcqclz260-481 [facility] HospitalComhar[facility] community hospital on above:Performed By: #### BMP, MG #### [facility] [address] [place] [address] Endless Belt Finisher: Arturo Mac DOUrea nitrogen [Mass/Vol]43 mg/dLHigh8-23[facility] HospitalComharbor beach community hospital on above:Performed By: #### BMP, MG #### [facility] [address] [place] [address] Endless Belt Finisher: Arturo Mac DOBasic Metabolic Panel w/ Reflex to MGon [id number] gap [Moles/Vol]9 mmol/L9 - 16 mmol/LBon [facility]ours [facility] Calcium [Mass/Vol]9.0 mg/dL8.6 - 10.4 mg/dLBon Secours Mercy HealthChloride [Moles/Vol]102 mmol/L98 - 107 mmol/LBon Secours Mercy HealthCO2 [Moles/Vol]26 mmol/L20 - 31 mmol/LBon Secours [facility] HealthCreatinine [Mass/Vol]1.7 mg/dLHigh 0.7 - 1.2 mg/dLBon Secours InterResolve HealthEst, Glom Filt Vich95Yrm- PINFBon SecSt. John of God HospitalComment on above: These results are not intended [...] that affects renal tubular secretion. Glucose [Mass/Vol]104 mg/lYGezp43 - 99 mg/dLBon Secours Kutenday HealthPotassium [Moles/Vol]3.7 mmol/L3.7 - 5.3 mmol/LBon Secours [facility]ult[facility] County Health Centery HealthSodium [Moles/Vol] 137 mmol/L136 - 145 mmol/LBon Secours [facility] HealthUrea nitrogen [Mass/Vol]43 mg/dLHigh8 - 23 mg/dLBon Secours Fulton County Health CenterAgricultural Holdings InternationalCBC auto differentialon 03-01-2025 Basophils (Bld) [#/Vol]0.04 10*3/uLBon Secours Fulton County Health Centery HealthBasophils/100 WBC (Bld)1 %0 - 2 %[facility] HealthEosinophils (Bld) [#/Vol]0.57 10*3/uLHigh [facility] HealthEosinophils/100 WBC (Bld)7 %High0 - 4 %[facility] Powermat TechnologiesErythrocyte distribution width (RBC) [Ratio]13.9 %11.5 - 14.9 %[facility] HealthHematocrit (Bld) [Volume fraction]38.2 %Low41.0 - 53.0 %[facility] HealthHemoglobin (Bld) [Mass/Vol]11.7 g/dLLow13.5 - 17.5 g/dLBon Secours [facility] Medical CenterImmature granulocytes (Bld) [#/Vol]0.06 10*3/uLBon Secours Mercy Powermat TechnologiesImmature granulocytes/100 WBC (Bld)1 %Lxva9Gbw [facility] Interpretation and review of laboratory resultsAbnormalBon Secchristianacare Mercy Health Lymphocytes/100 WBC (Bld)24 %24 - 44 %Cumberland HospitalLymphocytes/100 WBC (Bld)2.01 %[facility] HospitalH (RBC) [Entitic mass]28.6 pg26.0 - 34.0 pgJohnston Memorial HospitalHC (RBC) [Mass/Vol]30.6 g/dLLow31.0 - 37.0 g/dL [facility] Memorial HospitalV (RBC) [Entitic vol]93.4 fL80.0 - 100.0 fLCumberland HospitalMonocytes/100 WBC (Bld)14 %High3 - 12 %[facility] Monocytes/100 WBC (Bld)1.12 %[facility] HospitalNeutrophils/100 WBC (Bld)53 %36 - 66 %[facility] HospitalNucleated RBC/100 WBC (Bld) [Ratio]0.0 %0 per 100 WBCCumberland HospitalPlatelet mean volume (Bld) [Entitic vol]9.3 fL8.0 - 13.5 fLCumberland HospitalPlatelets (Bld) [#/Vol]168 10*3/uLBon Mount St. Mary HospitalRBC (Bld) [#/Vol]4.09 10*6/uLLow4.21 - 5.77 m/uLCumberland HospitalSegmented neutrophils/100 WBC (Bld)4.46 %[facility] HospitalWBC other (Bld) [#/Vol]8.3Bon SecAscension All Saints Hospital SatelliteCBC with Diffon [id number]. Basophil0.04 k/uLNormal0.00-0.20[facility] Comment on above:Performed By: #### DHARA MG #### [facility] [address] [place] [address] Endless Belt Finisher: Arturo Mac DOAbs.Imm.Granulocyte0.06 k/uLNormal0.00-0.30 [facility] HospitalComment on above:Performed By: #### DHARA MG #### [facility] [place] [address] Endless Belt Finisher: Arturo Mac DOAbs.Neutrophil (Seg)4.46 k/uLNormal1.50-8.10 [facility] on above:Performed By: #### BMP, MG #### [facility] [address] [place] [address] Endless Belt Finisher: Arturo Mac DOBasophils/100 WBC (Bld)1 %Normal0-2[facility] HospitalComharbor beach community hospital on above:Performed By: #### BMP, MG #### [facility] [address] [place] [address] Endless Belt Finisher: Arturo aMc DOEosinophils (Bld) [#/Vol]0.57 10*3/uLHigh 0.00-0.44[facility] HospitalComharbor beach community hospital on above:Performed By: #### BMP, MG #### [facility] [address] [place] [address] Endless Belt Finisher: Arturo Mac DOEosinophils/100 WBC (Bld)7 %High0-4[facility] HospitalComharbor beach community hospital on above:Performed By: #### BMP, MG #### [facility] [address] [place] [address] Endless Belt Finisher: Arturo Mac DOErythrocyte distribution width (RBC) [Ratio] 13.9 %Upwatu62.5-14.9[facility] on above:Performed By: #### BMP, MG #### [facility] [address] [place] [address] Endless Belt Finisher: Arturo Mac DOHematocrit (Bld) [Volume fraction]38.2 %Low 41.0-53.0[facility] HospitalComharbor beach community hospital on above:Performed By: #### BMP, MG #### [facility] [place] [address] Endless Belt Finisher: Arturo Mac DOHemoglobin (Bld) [Mass/Vol]11.7 g/dLLow 13.5-17.5[facility] HospitalComharbor beach community hospital on above:Performed By: #### BMP, MG #### [facility] [address] [place] [address] Endless Belt Finisher: Arturo Mac, DOImmature granulocytes/100 WBC (Bld)1 %High0 [facility] HospitalComharbor beach community hospital on above:Performed By: #### BMP, MG #### [facility] [address] [place] [address] Endless Belt Finisher: Arturo Mac, DOLymphocytes (Bld) [#/Vol]2.01 10*3/uLNormal 1.10-3.70[facility] HospitalComhar[facility] beach community hospital on above:Performed By: #### BMP, MG #### [facility] [address] [place] [address] Endless Belt Finisher: Arturo Mac, DOLymphocytes/100 WBC (Bld)24 %Mhgpak37-42LygcgOur Lady Of Mercy HospitalComharbor beach community hospital on above:Performed By: #### BMP, MG #### [facility] [address] [place] [phone] Endless Belt Finisher: Arturo Mac DOMCH (RBC) [Entitic mass]28.6 pgNormal 26.0-34.0[facility] HospitalComharbor beach community hospital on above:Performed By: #### BMP, MG #### [facility] [address] [place] [address] Endless Belt Finisher: Arturo Mac DOMCHC (RBC) [Mass/Vol]30.6 g/dLLow31.0-37.0 [facility] on above:Performed By: #### BMP, MG #### [facility] [place] [address] Endless Belt Finisher: Arturo Mac DOMCV (RBC) [Entitic vol]93.4 fLNormal 80.0-100.0[facility] on above:Performed By: #### BMP, MG #### [facility] [address] [place] [address] Endless Belt Finisher: Arturo Mac DOMonocytes (Bld) [#/Vol]1.12 10*3/uLNormal 0.10-1.20[facility] on above:Performed By: #### BMP, MG #### [facility] [address] [place] [address] Endless Belt Finisher: Arturo Mac DOMonocytes/100 WBC (Bld)14 %High3-12[facility] on above:Performed By: #### BMP, MG #### [facility] [address] [place] [address] Endless Belt Finisher: Arturo Mac DONeutrophil (Seg)53 %Tigxoi23-57OzjqgGalion Community Hospital on above:Performed By: #### BMP, MG #### [facility] [address] [place] [address] Endless Belt Finisher: Arturo Mac DONRBC Automated0.0 per 100 MDHXcrqav4OueqvGalion Community Hospital on above:Performed By: #### BMP, MG #### [facility] [address] [place] [address] Endless Belt Finisher: Arturo Mac DOPlatelet mean volume (Bld) [Entitic vol]9.3 fLNormal8.0-13.5[facility] on above:Performed By: #### BMP, MG #### [facility] [address] [facility] [place] [address] Endless Belt Finisher: Arturo Mac DOPlatelets (Ferd) [#/Vol]168 10*3/uLNormal 150-450Our [facility] HospitalComment on above:Performed By: #### BMP, MG #### [facility] [address] [facility] [place] [address] Endless Belt Finisher: Arturo Mac DORBC (Ferd) [#/Vol]4.09 10*6/uLLow4.21-5.77 [facility] on above:Performed By: #### BMP, MG #### [facility] [address] [facility] [place] [address] Endless Belt Finisher: Arturo Mac DOWBC (Julian) [#/Vol]8.3 10*3/uLNormal3.5-11.0 [facility] HospitalComhar[facility] beach community hospital on above:Performed By: #### BMP, MG #### [facility] [facility] [place] [address] Endless Belt Finisher: Arturo Mac DOHepatic Function Panelon [id number] [Mass/Vol]3.2 g/dLLow3.5 - 5.2 g/dLBon SecSt. Tammany Parish Hospital HealthALP [Catalytic activity/Vol]77 U/L40 - 129 U/LBon Secours Fulton County Health Centery HealthALT [Catalytic activity/Vol]U/LLow10 - 50 U/LBon Secours [facility]ult[facility] Health Centery HealthAST [Catalytic activity/Vol]23 U/L10 - 50 U/LBon Secours [facility] Centery HealthBilirubin [Mass/Vol]0.6 mg/dL0.0 - 1.2 mg/dLBon Secours [facility]ult[facility] County Health Centery HealthBilirubin.direct [Mass/Vol]0.2 mg/dL 0.0 - 0.3 mg/dLBon Secours Fult[facility] County Health Centery HealthBilirubin.indirect [Mass/Vol]0.4 mg/dL0.0 - 1.0 mg/dLBon [facility] Mary HospitalProtein [Mass/Vol]6.4 g/dLLow6.6 - 8.7 g/dL Bon [facility] Mary HospitalLiver Profileon [id number] [Mass/Vol]3.2 g/dLLow 3.5-5.2[facility] HospitalComment on above:Performed By: #### BMP, MG #### [facility] [address] [place] [address] Endless Belt Finisher: Arturo Mac DOAlkaline Phos77 U/HYkhzib87-086VgodfOur Lady Of Mercy HospitalComharbor beach community hospital on above:Performed By: #### BMP, MG #### [facility] [address] [place] [address] Endless Belt Finisher: Arturo Mac DOALT [Catalytic activity/Vol]U/FIwl83-86YuyxsOur Lady Of Mercy HospitalComharbor beach community hospital on above:Performed By: #### BMP, MG #### [facility] [address] [place] [address] Endless Belt Finisher: Arturo Mac DOAST [Catalytic activity/Vol]23 U/VPppmir17-04 [facility] HospitalComharbor beach community hospital on above:Performed By: #### BMP, MG #### [facility] [address] [place] [address] Endless Belt Finisher: Arturo Mac DOBilirubin [Mass/Vol]0.6 mg/dLNormal0.0-1.2 [facility] HospitalComhar[facility] community hospital on above:Performed By: #### BMP, MG #### [facility] [address] [place] [address] Endless Belt Finisher: Arturo Mac DOBilirubin, Indirect0.4 mg/dLNormal0.0-1.0 [facility] HospitalComhar[facility] beach community hospital on above:Performed By: #### BMP, MG #### [facility] [address] [facility] [place] [address] Endless Belt Finisher: Arturo Mac DOBilirubin.indirect [Mass/Vol]0.2 mg/dLNormal 0.0-0.3[facility] HospitalComment on above:Performed By: #### BMP, MG #### [facility] [address] [facility] [place] [address] Endless Belt Finisher: Arturo Mac DOProtein [Mass/Vol]6.4 g/dLLow6.6-8.7Mer[facility] Valley HospitalComment on above:Performed By: #### BMP, MG #### [facility] [address] [facility] [place] [address] Endless Belt Finisher: Arturo Mac DONo Panel Informationon 03-01-2025 Interpretation and review of laboratory resultsAbnormalBon [facility] CHEST WO CONTRASTon [id number] CHEST WO CONTRAST EXAM: CT CHEST WITHOUT [...] by: Destin Barba MD 02/28/25 Final resultNormalMercy Miami Valley HospitalCT Chest WO contraston . No soft tissue gas. 2. 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 Recommend prompt, nonemergent pancreatic MRI. [facility] CONSOLIDATEDEXAM: CT CHEST WITHOUT CONTRAST 02/28/2025 09:11:24 [...] the upper abdomen demonstrates no acute abnormality. [facility] Destin Roy MD - 02/28/2025 EXAM: CT [...] 2.4 cm. Recommend prompt, nonemergent pancreatic MRI. [facility] HospitalRadiology Study observation (narrative)[facility] HospitalCT Chest WO contrastOrdered By: Destin Barba on [id number] [facility] Work Phone: Basic Metab w/rfx MGon [id number] gap [Moles/Vol] 11 mmol/LNormal9-16[facility] HospitalComment on above:Performed By: #### BMP, MG #### [facility] [address] [place] [address] Endless Belt Finisher: Arturo Mac DOCalcium [Mass/Vol]8.6 mg/dLNormal8.6-10.4 [facility] HospitalComment on above:Performed By: #### BMP, MG #### [facility] [address] [place] [address] Endless Belt Finisher: Arturo Mac DOChloride [Moles/Vol]103 mmol/OTrylru66-382 [facility] HospitalComment on above:Performed By: #### BMP, MG #### [facility] [place] [address] Endless Belt Finisher: Arturo Mac DOCO2 [Moles/Vol]25 mmol/RTftljn88-15QlfznOur Lady Of Mercy HospitalComment on above:Performed By: #### BMP, MG #### [facility] [address] [place] [address] Endless Belt Finisher: Arturo Mac DOCreatinine [Mass/Vol]1.8 mg/dLHigh0.7-1.2 [facility] HospitalComharbor beach community hospital on above:Performed By: #### BMP, MG #### [facility] [address] [place] [address] Endless Belt Finisher: Arturo Mac, DOGFR/1.73 sq M.predicted among non-blacks MDRD (S/P/Bld) [Vol rate/Area]36 mL/min/{1.73_m2}Low>60[facility] Comment on above:Result Comment: These results [...] tubular secretion.Performed By: #### BMP, MG #### [facility] [place] [address] Endless Belt Finisher: Arturo Mac DOGlucose [Mass/Vol]158 mg/iBEiik14-77NcjdtOhioHealth Marion General HospitalComment on above:Performed By: #### BMP, MG #### [facility] [address] [place] [address] Endless Belt Finisher: Arturo Mac, DOPotassium [Moles/Vol]3.7 mmol/LNormal3.7-5.3 [facility] HospitalComment on above:Performed By: #### BMP, MG #### [facility] [address] [place] [address] Endless Belt Finisher: Arturo Mac, DOSodium [Moles/Vol]139 mmol/TSgmcsq154-767 [facility] HospitalComharbor beach community hospital on above:Performed By: #### BMP, MG #### [facility] [address] [place] [address] Endless Belt Finisher: Arturo Mac DOUrea nitrogen [Mass/Vol]37 mg/dLPleasant Valley Hospital8-23[facility] HospitalComharbor beach community hospital on above:Performed By: #### BMP, MG #### [facility] [address] [place] [address] Endless Belt Finisher: Arturo Mac DOBasic Metabolic Panel w/ Reflex to MGon [id number] gap [Moles/Vol]11 mmol/L9 - 16 mmol/LBon [facility] Calcium [Mass/Vol]8.6 mg/dL8.6 - 10.4 mg/dLBon [facility] Mary HospitalChloride [Moles/Vol]103 mmol/L98 - 107 mmol/LBon [facility] Mary HospitalCO2 [Moles/Vol]25 mmol/L20 - 31 mmol/LBon [facility] HospitalCreatinine [Mass/Vol]1.8 mg/dLHigh 0.7 - 1.2 mg/dLBon [facility] HospitalEst, Glom Filt Bdhm47Kda- PINFBon [facility] Mary HospitalComment on above: These results are not intended [...] that affects renal tubular secretion. Glucose [Mass/Vol]158 mg/mNEqmo35 - 99 mg/dLBon [facility] Interpretation and review of laboratory resultsAbnormalCumberland Hospital Potassium [Moles/Vol]3.7 mmol/L3.7 - 5.3 mmol/LBon [facility] Mary HospitalSodium [Moles/Vol]139 mmol/L136 - 145 mmol/LBon [facility] Mary HospitalUrea nitrogen [Mass/Vol]37 mg/dLHigh8 - 23 mg/dLBon [facility] HealthCBC with Auto Differentialon [id number] (Bld) [#/Vol]0.03 10*3/uL [facility] HospitalBasophils/100 WBC (Bld)0 %0 - 2 %[facility] HospitalEosinophils (Bld) [#/Vol]0.36 10*3/uLCumberland Hospital Eosinophils/100 WBC (Bld)4 %0 - 4 %[facility] HospitalErythrocyte distribution width (RBC) [Ratio]14.1 %11.5 - 14.9 %[facility] Hematocrit (Bld) [Volume fraction]37.6 %Low41.0 - 53.0 %Bon [facility] Hemoglobin (Bld) [Mass/Vol]11.7 g/dLLow13.5 - 17.5 g/dLBon [facility] Immature granulocytes (Bld) [#/Vol]0.04 10*3/uLBon SecSt. John of God HospitalImmature granulocytes/100 WBC (Bld)0 %0Bon [facility] HospitalInterpretation and review of laboratory resultsAbnormalBon [facility]. Mary HospitalLymphocytes/100 WBC (Bld)16 %Low24 - 44 %Bon SecSt. John of God HospitalLymphocytes/100 WBC (Bld)1.46 %Bon Marion HospitalH (RBC) [Entitic mass]29.5 pg26.0 - 34.0 pgBon Marion HospitalHC (RBC) [Mass/Vol]31.1 g/dL31.0 - 37.0 g/dLBon [facility] Mary HospitalMCV (RBC) [Entitic vol]94.7 fL80.0 - 100.[address] Mary HospitalMonocytes/100 WBC (Bld)8 %3 - 12 %[facility] HospitalMonocytes/100 WBC (Bld)0.77 %[facility] HospitalNeutrophils/100 WBC (Bld)72 %High36 - 66 %Bon [facility] HospitalNucleated RBC/100 WBC (Bld) [Ratio]0.0 %0 per [address] Mary HospitalPlatelet mean volume (Bld) [Entitic vol]9.3 fL8.0 - 13.[address] Mary HospitalPlatelets (Bld) [#/Vol]153 10*3/uLBon SecSt. Tammany Parish Hospital HealthRBC (Bld) [#/Vol]3.97 10*6/uLLow4.21 - 5.77 m/uLBon [facility] Mary HospitalSegmented neutrophils/100 WBC (Bld)6.68 %Bon [facility] Mary HospitalWBC other (Bld) [#/Vol] 9.3Bon SecUniversity [address] [facility] SecSt. John of God HospitalCBC with Diffon 02-27-2025 Abs. Basophil0.03 k/uLNormal0.00-0.20[facility] HospitalComharbor beach community hospital on above: Performed By: #### BMP, MG #### [facility] [address] [place] [address] Endless Belt Finisher: Arturo Mac DOAbs.Imm.Granulocyte0.04 k/uLNormal0.00-0.30 [facility] HospitalComharbor beach community hospital on above:Performed By: #### BMP, MG #### [facility] [address] [place] [address] Endless Belt Finisher: Arturo Mac DOAbs.Neutrophil (Seg)6.68 k/uLNormal1.50-8.10 [facility] HospitalComharbor beach community hospital on above:Performed By: #### BMP, MG #### [facility] [address] [place] [address] Endless Belt Finisher: Arturo Mac DOBasophils/100 WBC (Bld)0 %Normal0-2Mmercy hospitaly Miami Valley HospitalComharbor beach community hospital on above:Performed By: #### DHARA, MG #### [facility] [address] [place] [address] Endless Belt Finisher: Arturo Mac DOEosinophils (Bld) [#/Vol]0.36 10*3/uLNormal 0.00-0.44[facility] HospitalComharbor beach community hospital on above:Performed By: #### BMP, MG #### [facility] [address] [place] [address] Endless Belt Finisher: Arturo Mac DOEosinophils/100 WBC (Bld)4 %Normal0-4[facility] HospitalComharbor beach community hospital on above:Performed By: #### BMP, MG #### [facility] [facility] [address] [place] [address] Endless Belt Finisher: Arturo Mac DOErythrocyte distribution width (RBC) [Ratio] 14.1 %Amuxas67.5-14.9[facility] on above:Performed By: #### BMP, MG #### [facility] [place] [address] Endless Belt Finisher: Arturo Mac, DOHematocrit (Bld) [Volume fraction]37.6 %Low 41.0-53.0[facility] on above:Performed By: #### BMP, MG #### [facility] [address] [place] [address] Endless Belt Finisher: Arturo Mac DOHemoglobin (Bld) [Mass/Vol]11.7 g/dLLow 13.5-17.5[facility] HospitalCom[facility] on above:Performed By: #### BMP, MG #### [facility] [address] [place] [address] Endless Belt Finisher: Arturo Mac DOImmature granulocytes/100 WBC (Bld)0 %Normal0 [facility] on above:Performed By: #### BMP, MG #### [facility] [address] [place] [address] Endless Belt Finisher: Arturo Mac DOLymphocytes (Bld) [#/Vol]1.46 10*3/uLNormal 1.10-3.70[facility] on above:Performed By: #### BMP, MG #### [facility] [address] [place] [address] Endless Belt Finisher: Arturo Mac DOLymphocytes/100 WBC (Bld)16 %Red31-50LtfhwGalion Community Hospital on above:Performed By: #### BMP, MG #### [facility] [address] [place] [address] Endless Belt Finisher: Arturo Mac DOMCH (RBC) [Entitic mass]29.5 pgNormal 26.0-34.0[facility]Com[facility] on above:Performed By: #### BMP, MG #### [facility] [address] [place] [address] Endless Belt Finisher: Arturo Mac DOMCHC (RBC) [Mass/Vol]31.1 g/pILclcab54.0-37.0 [facility] on above:Performed By: #### BMP, MG #### [facility] [address] [place] [address] Endless Belt Finisher: Arturo Mac DOMCV (RBC) [Entitic vol]94.7 fLNormal 80.0-100.0[facility] HospitalCom[facility] on above:Performed By: #### BMP, MG #### [facility] [address] [place] [address] Endless Belt Finisher: Arturo Mac DOMonocytes (Bld) [#/Vol]0.77 10*3/uLNormal 0.10-1.20[facility] on above:Performed By: #### BMP, MG #### [facility] [address] [place] [address] Endless Belt Finisher: Arturo Mac DOMonocytes/100 WBC (Bld)8 %Normal3-12[facility] HospitalCom[facility] on above:Performed By: #### BMP, MG #### [facility] [address] [place] [address] Endless Belt Finisher: Arturo Mac DONeutrophil (Seg)72 %Iisu71-37NnduoOur Lady Of Mercy HospitalComharbor beach community hospital on above:Performed By: #### BMP, MG #### [facility] [address] [place] [address] Endless Belt Finisher: Arturo Mac DONRBC Automated0.0 per 100 IMHEbvgyh1YcybyOur Lady Of Mercy HospitalComharbor beach community hospital on above:Performed By: #### BMP, MG #### [facility] [address] [facility] [place] [address] Endless Belt Finisher: Arturo Mac DOPlatelet mean volume (Bld) [Entitic vol]9.3 fLNormal8.0-13.5[facility] HospitalComhar[facility] on above:Performed By: #### BMP, MG #### [facility] [facility] [place] [address] Endless Belt Finisher: Arturo Mac DOPlatelets (Bld) [#/Vol]153 10*3/uLNormal 150-450[facility] HospitalComhar[facility] hospital on above:Performed By: #### DHARA, MG #### [facility] [facility] [place] [address] Endless Belt Finisher: Arturo Mac DORBC (Bld) [#/Vol]3.97 10*6/uLLow4.21-5.77 [facility] on above:Performed By: #### DHARA, MG #### [facility] [facility] [place] [address] Endless Belt Finisher: Arturo Mac DOWBC (Bld) [#/Vol]9.3 10*3/uLNormal3.5-11.0 [facility] on above:Performed By: #### DHARA, MG #### [facility] [address] [place] [address]. [place] [address] Endless Belt Finisher: Arturo Mac DOUS Kidney limitedon [id number] unremarkable renal ultrasound. No hydronephrosis. Left kidney [...] hydronephrosis or intrarenal stones. No focal lesions. RUST Raimundo Stafford MD - 02/27/2025 EXAMINATION: ULTRASOUND [...] not as well seen as the right. [facility] HospitalRad[facility] Study observation (narrative)[facility] Kidney limitedOrdered By: Raimundo Ronquillo on [id number] [facility] Permanente Medical CenterAgricultural Holdings International Work Phone: us RENAL LIMITEDon [id number] RENAL LIMITED EXAMINATION: ULTRASOUND OF THE KIDNEYS [...] by: Raimundo Ronquillo MD 02/27/25 Final resultNormalMercy Miami Valley HospitalBasic Metab w/rfx MGon 02-26-2025 Anion gap [Moles/Vol]13 mmol/LNormal9-16[facility] HospitalComment on above:Performed By: #### MANNY, BMPX #### [facility] [address] [facility] [place] [address] Endless Belt Finisher: Arturo Mac DOCalcium [Mass/Vol]8.8 mg/dLNormal8.6-10.4 [facility] HospitalComment on above:Performed By: #### MANNY, BMPX #### [facility] [address] [facility] [place] [address] Endless Belt Finisher: Arturo Mac DOChloride [Moles/Vol]104 mmol/KQrqcwe76-047 [facility] HospitalComment on above:Performed By: #### MANNY, BMPX #### [facility] [address] [facility] [place] [address] Endless Belt Finisher: Arturo Mac DOCO2 [Moles/Vol]25 mmol/EUvxuif55-61FfhzsOur Lady Of Mercy HospitalComment on above:Performed By: #### MANNY, BMPX #### [facility] [address] [facility] [place] [address] Endless Belt Finisher: Arturo Mac DOCreatinine [Mass/Vol]2.1 mg/dLHigh0.7-1.2 [facility] HospitalComhar[facility] hospital on above:Performed By: #### MANNY, BMPX #### [facility] [address] [place] [address] Endless Belt Finisher: Arturo Mac DOGFR/1.73 sq M.predicted among non-blacks MDRD (S/P/Bld) [Vol rate/Area]30 mL/min/{1.73_m2}Low>60[facility] Comment on above:Result Comment: These results [...] tubular secretion.Performed By: #### CDP, BMPX #### [facility] [address] [place] [address] Endless Belt Finisher: Arturo Mac DOGlucose [Mass/Vol]133 mg/uIHtga00-08IgvpkOhioHealth Marion General HospitalComharbor beach community hospital on above:Performed By: #### MANNY, BMPX #### [facility] [address] [place] [address] Endless Belt Finisher: Arturo Mac, DOPotassium [Moles/Vol]3.7 mmol/LNormal3.7-5.3 [facility] HospitalComhar[facility] hospital on above:Performed By: #### MANNY, BMPX #### [facility] [address] [place] [address]. [place] [address] Endless Belt Finisher: Arturo Mac DOSodium [Moles/Vol]142 mmol/VFfvrdp095-314 [facility] HospitalComhar[facility] hospital on above:Performed By: #### MANNY, BMPX #### [address] [address] Endless Belt Finisher: Arturo Mac DOUrea nitrogen [Mass/Vol]44 mg/dLPleasant Valley Hospital8-23[facility] on above:Performed By: #### MANNY, BMPX #### [facility] [address] [place] [address] Endless Belt Finisher: Arturo Mac DOBasic Metabolic Panel w/ Reflex to MGon [id number] gap [Moles/Vol]13 mmol/L9 - 16 mmol/LBon [facility] Calcium [Mass/Vol]8.8 mg/dL8.6 - 10.4 mg/dLBon Mount St. Mary HospitalChloride [Moles/Vol]104 mmol/L98 - 107 mmol/LBon [address] Mary HospitalCO2 [Moles/Vol]25 mmol/L20 - 31 mmol/LBon [facility]. Mary HospitalCreatinine [Mass/Vol]2.1 mg/dLHigh 0.7 - 1.2 mg/dLBon Mount [facility]. Mary HospitalEst, Glom Filt Nxhm18Yqq- PINFBon Mount St. Mary HospitalComment on above: These results are not intended [...] that affects renal tubular secretion. Glucose [Mass/Vol]133 mg/jQLyvk70 - 99 mg/dLBon [facility] Interpretation and review of laboratory resultsAbnormalCumberland Hospital Potassium [Moles/Vol]3.7 mmol/L3.7 - 5.3 mmol/LBon Mount [facility]. Mary HospitalSodium [Moles/Vol]142 mmol/L136 - 145 mmol/LBon [address] [facility]. Mary HospitalUrea nitrogen [Mass/Vol]44 mg/dLHigh8 - 23 mg/dLBon [facility]vera HealthCBC with Diffon [id number]. Basophil0.04 k/uLNormal0.00-0.20[facility] HospitalComhar[facility] beach community hospital on above:Performed By: #### MANNY, BMPX #### [facility] [address] [facility] [place] [address] Endless Belt Finisher: Arturo Mac DOAbs.Imm.Granulocyte0.04 k/uLNormal0.00-0.30 [facility] on above:Performed By: #### MANNY, BMPX #### [facility] [address] [place] [address] Endless Belt Finisher: Fanelly, Arturo, DOAbs.Neutrophil (Seg)7.12 k/uLNormal1.50-8.10 [facility] on above:Performed By: #### MANNY, BMPX #### [facility] [place] [address] Endless Belt Finisher: Arturo Mac DOBasophils/100 WBC (Bld)0 %Normal0-2MOhioHealth Marion General HospitalComharbor beach community hospital on above:Performed By: #### MANNY, BMPX #### [facility] [address] [place] [address] Endless Belt Finisher: Arturo Mac DOEosinophils (Bld) [#/Vol]0.23 10*3/uLNormal 0.00-0.44[facility] on above:Performed By: #### MANNY, BMPX #### [facility] [address] [place] [address] Endless Belt Finisher: Arturo Mac DOEosinophils/100 WBC (Bld)2 %Normal0-4[facility] on above:Performed By: #### MANNY, BMPX #### [facility] [address] [place] [address] Endless Belt Finisher: Arturo Mac DOErythrocyte distribution width (RBC) [Ratio] 14.3 %Szysrm54.5-14.9[facility] on above:Performed By: #### MANNY, BMPX #### [facility] [address] [place] [address] Endless Belt Finisher: Arturo Mac DOHematocrit (Bld) [Volume fraction]40.6 %Low 41.0-53.0[facility] on above:Performed By: #### MANNY, BMPX #### [facility] [address] [place] [address] Endless Belt Finisher: Arturo Mac DOHemoglobin (Bld) [Mass/Vol]12.5 g/dLLow 13.5-17.5[facility] on above:Performed By: #### MANNY, BMPX #### [facility] [address] [place] [address] Endless Belt Finisher: Arturo Mac DOImmature granulocytes/100 WBC (Bld)0 %Normal0 [facility] on above:Performed By: #### MANNY, BMPX #### [facility] [address] [place] [address] Endless Belt Finisher: Arturo Mac DOLymphocytes (Bld) [#/Vol]1.36 10*3/uLNormal 1.10-3.70[facility] on above:Performed By: #### MANNY, BMPX #### [facility] [address] [place] [address] Endless Belt Finisher: Arturo Mac DOLymphocytes/100 WBC (Bld)14 %Hpu87-38HxudiGalion Community Hospital on above:Performed By: #### MANNY, BMPX #### [facility] [address] [place] [address] Endless Belt Finisher: Arturo Mac DOMCH (RBC) [Entitic mass]28.9 pgNormal 26.0-34.0[facility] on above:Performed By: #### MANNY, BMPX #### [facility] [address] [place] [address] Endless Belt Finisher: Arturo Mac DOMCHC (RBC) [Mass/Vol]30.8 g/dLLow31.0-37.0 [facility] on above:Performed By: #### MANNY, BMPX #### [facility] [address] [place] [address], [place] [address] Endless Belt Finisher: Arturo Mac DOMCV (RBC) [Entitic vol]94.0 fLNormal 80.0-100.0[facility] on above:Performed By: #### CDP, BMPX #### [facility] [facility] [place] [address] Endless Belt Finisher: Arturo Mac DOMonocytes (Bld) [#/Vol]1.03 10*3/uLNormal 0.10-1.20[facility] on above:Performed By: #### CDP, BMPX #### [facility] [address] [place] [address]. [place] [address] Endless Belt Finisher: Arturo Mac DOMonocytes/100 WBC (Bld)11 %Normal3-12[facility] on above:Performed By: #### CDP, BMPX #### [facility] [address] [place] [address]. [place] [address] Endless Belt Finisher: Arturo Mac DONeutrophil (Seg)73 %Hdvx92-10VbgazGalion Community Hospital on above:Performed By: #### MANNY, BMPX #### [facility] [address] [place] [address] Endless Belt Finisher: Arturo Mac DONRBC Automated0.0 per 100 LHOOxbtuk3BmrgcGalion Community Hospital on above:Performed By: #### CDP, BMPX #### [facility] [address] [place] [address]. [place] [address] Endless Belt Finisher: Arturo Mac DOPlatelet mean volume (Bld) [Entitic vol]9.5 fLNormal8.0-13.5[facility] on above:Performed By: #### CDP, BMPX #### [facility] [address] [facility] [place] [address] Endless Belt Finisher: Arturo Mac DOPlatelets (Bld) [#/Vol]174 10*3/uLNormal 150-450[facility] HospitalComharbor beach community hospital on above:Performed By: #### CDP, BMPX #### [facility] [address] [facility] [place] [address] Endless Belt Finisher: Arturo Mac DORBC (Bld) [#/Vol]4.32 10*6/uLNormal4.21-5.77 [facility] on above:Performed By: #### CDP, BMPX #### [facility] [address] [facility] [place] [address] Endless Belt Finisher: Arturo Mac DOWBC (Bld) [#/Vol]9.8 10*3/uLNormal3.5-11.0 [facility] on above:Performed By: #### CDP, BMPX #### [facility] [address] [facility] [place] [address] Endless Belt Finisher: Arturo Mac DOCBC with auto differentialon 02-26-2025 [...] [facility] HealthImmature granulocytes (Bld) [#/Vol]0.04 10*3/uLBon [facility] Immature granulocytes/100 WBC (Bld)0 %0Bon [facility] HospitalInterpretation and review of laboratory resultsAbnormalBon Mount St. Mary HospitalLymphocytes/100 WBC (Bld)14 %Low24 - 44 %Bon [facility] Mary HospitalLymphocytes/100 WBC (Bld)1.36 % [facility] HospitalH (RBC) [Entitic mass]28.9 pg26.0 - 34.0 pgBon Marion HospitalHC (RBC) [Mass/Vol]30.8 g/dLLow31.0 - 37.0 g/dLBon SecThe Bellevue HospitalV (RBC) [Entitic vol]94.0 fL80.0 - 100.0 fLCumberland Hospital Monocytes/100 WBC (Bld)11 %3 - 12 %[facility] HospitalMonocytes/100 WBC (Bld)1.03 %[facility] HospitalNeutrophils/100 WBC (Bld)73 %High36 - 66 %[facility] HospitalNucleated RBC/100 WBC (Bld) [Ratio]0.0 %0 per 100 WBCCumberland HospitalPlatelet mean volume (Bld) [Entitic vol]9.5 fL8.0 - 13.5 fL [facility] HospitalPlatelets (Bld) [#/Vol]174 10*3/uLBon Mount St. Mary HospitalRBC (Bld) [#/Vol]4.32 10*6/uL4.21 - 5.77 m/uLCumberland Hospital Segmented neutrophils/100 WBC (Bld)7.12 %Cumberland HospitalWBC other (Bld) [#/Vol]9.8Bon SecAscension All Saints Hospital SatelliteComp Met+Bili/rfx MG on 76-94-9814Gojadqc [Mass/Vol]3.4 g/dLLow3.5-5.2[facility] Comment on above:Performed By: #### PTHNANCI, VD25 #### [facility] [address] [place] [address] Endless Belt Finisher: Alvarado Prasad MD #### CLAIRE, CPBILX #### [facility] [address] [place] [address] Endless Belt Finisher: Arturo Mac DOAlkadrien Phos81 U/UEsiapn88-150HviayGalion Community Hospital on above:Performed By: #### PTHNCWillian, VD25 #### [address] [address] Endless Belt Finisher: Alvarado Prasad MD #### CLAIRE, CPBILX #### [facility] [address] [place] [address] Endless Belt Finisher: Arturo Mac DOALT [Catalytic activity/Vol]5 U/WYal65-37 [facility] on above:Performed By: #### LISA VD25 #### [address] [address] Endless Belt Finisher: Alvarado Prasad MD #### CLAIRE, CPBILX #### [facility] [address] [place] [address] Endless Belt Finisher: Arturo Mac DOAnion gap [Moles/Vol]12 mmol/LNormal9-16[facility] on above:Performed By: #### LISA, VD25 #### [address] [address] Endless Belt Finisher: Alvarado Prasad MD #### CLAIRE, CPBILX #### [facility] [address] [place] [address] Endless Belt Finisher: Arturo Mac DOAST [Catalytic activity/Vol]26 U/KUxsfmk43-47 [facility] on above:Performed By: #### RANDYNCWillian, VD25 #### [address] [place] [address] Endless Belt Finisher: Alvarado Prasad MD #### CLAIRE, CPBILX #### [facility] [address] [place] [address] Endless Belt Finisher: Arturo Mac, DOBilirubin [Mass/Vol]0.3 mg/dLNormal0.0-1.2 [facility] HospitalComment on above:Performed By: #### PTHNCA, VD25 #### [facility] [address] [place] [address] Endless Belt Finisher: Alvarado Prasad MD #### CLAIRE, CPBILX #### [facility] [address] [place] [address] Endless Belt Finisher: Arturo Mac DOBilirubin, Indirect0.2 mg/dLNormal0.0-1.0 [facility] on above:Performed By: #### PTHNCA, VD25 #### [address] [address] Endless Belt Finisher: Alvarado Prasad MD #### CLAIRE, CPBILX #### [facility] [address] [place] [address] Endless Belt Finisher: Arturo Mac DOBilirubin.indirect [Mass/Vol]0.1 mg/dLNormal 0.0-0.3Mmercy hospitaly Miami Valley HospitalComharbor beach community hospital on above:Performed By: #### PTHNCA, VD25 #### [address] [address] Endless Belt Finisher: Alvarado Prasad MD #### CLAIRE, CPBILX #### [facility] [address] [place] [address] Endless Belt Finisher: Arturo Mac DOCalcium [Mass/Vol]8.8 mg/dLNormal8.6-10.4 [facility] on above:Performed By: #### PTHNCA, VD25 #### [address] [address] Endless Belt Finisher: Alvarado Prasad MD #### CLAIRE, CPBILX #### [facility] [address] [place] [address] Endless Belt Finisher: Arturo Mac DOChloride [Moles/Vol]104 mmol/HAkpxms52-074 [facility] on above:Performed By: #### PTHNCA, VD25 #### [address] [address] Endless Belt Finisher: Alvarado Prasad MD #### CLAIRE, CPBILX #### [facility] [address] [place] [address] Endless Belt Finisher: Arturo Mac DOCO2 [Moles/Vol]25 mmol/LBjuvkz07-74FbaqfOur Lady Of Mercy HospitalComharbor beach community hospital on above:Performed By: #### PTHNCA, VD25 #### [address] [address] Endless Belt Finisher: Alvarado Prasad MD #### CLAIRE, CPBILX #### [facility] [address] [place] [address] Endless Belt Finisher: Arturo Mac DOCreatinine [Mass/Vol]2.0 mg/dLHigh0.7-1.2 [facility] on above:Performed By: #### PTHNCA, VD25 #### [address] [address] Endless Belt Finisher: Alvarado Prasad MD #### CLAIRE, CPBILX #### [facility] [address] [place] [address] Endless Belt Finisher: Fanelly, Arturo, DOGFR/1.73 sq M.predicted among non-blacks MDRD (S/P/Bld) [Vol rate/Area]32 mL/min/{1.73_m2}Low>60[facility] Comment on above:Result Comment: These results [...] tubular secretion.Performed By: #### LISA VD25 #### [address] [address] Endless Belt Finisher: Alvarado Prasad MD #### CLAIRE, CPBILX #### [facility] [address] [place], [place] [address] Endless Belt Finisher: Arturo Mac DOGlucose [Mass/Vol]133 mg/mHUpnk74-75Etsoc69 Ramirez StreetComment on above:Performed By: #### LISA VD25 #### [address] [address] Endless Belt Finisher: Alvarado Prasad MD #### CLAIRE, CPBILX #### [facility] [address] [place] [address] Endless Belt Finisher: Arturo Mac DOPotassium [Moles/Vol]4.0 mmol/LNormal3.7-5.3 [facility] HospitalComhar[facility] hospital on above:Performed By: #### LISA, VD25 #### [address] [address] Endless Belt Finisher: Alvarado Prasad MD #### CLAIRE, CPBILX #### [facility] [address] [place] [address] Endless Belt Finisher: Arturo Mac DOProtein [Mass/Vol]6.5 g/dLLow6.6-8.7[facility] HospitalComhar[facility] hospital on above:Performed By: #### LISA, VD25 #### [address] [address] Endless Belt Finisher: Alvarado Prasad MD #### CLAIRE, CPBILX #### [facility] [place] [address] Endless Belt Finisher: Arturo Mac DOSodium [Moles/Vol]141 mmol/UPccaxt505-043 [facility] HospitalComharbor [facility] hospital on above:Performed By: #### LISA VD25 #### [address] [address] Endless Belt Finisher: Alvarado Prasad MD #### CLAIRE, CPBILX #### [facility] [address] [place] [address] Endless Belt Finisher: Arturo Mac DOUrea nitrogen [Mass/Vol]43 mg/dLHigh8-23[facility] HospitalComharbor [facility] community hospital on above:Performed By: #### LISA VD25 #### [address] [address] Endless Belt Finisher: Alvarado Prasad MD #### CLAIRE, CPBILX #### [facility] [address] [place] [address] Endless Belt Finisher: Arturo Mac DOComprehensive Metabolic w/ Bili Profile w/ Reflex to MGon [id number] [Mass/Vol]3.4 g/dLLow3.5 - 5.2 g/dLBon [facility] [facility] HospitalALP [Catalytic activity/Vol]81 U/L40 - 129 U/LBon [facility] HospitalALT [Catalytic activity/Vol]5 U/LLow10 - 50 U/LBon [facility] Anion gap [Moles/Vol]12 mmol/L9 - 16 mmol/LBon [...] HealthCreatinine [Mass/Vol]2.0 mg/dLHigh0.7 - 1.2 mg/dLBon Sec[facility]ult[facility] Centery HealthEst, Glom Filt Orzg82Nzg- PINFBon Secours [facility] Health Centery HealthComment on above: These results are not [...] that affects renal tubular secretion. Glucose [Mass/Vol]133 mg/dJMrtq67 - 99 mg/dLBon Secours Mercy HealthPotassium [Moles/Vol]4.0 mmol/L3.7 - 5.3 mmol/LBon Secours Mercy HealthProtein [Mass/Vol] 6.5 g/dLLow6.6 - 8.7 g/dLBon Secours Mercy HealthSodium [Moles/Vol]141 mmol/L136 - 145 mmol/LBon Secours Mercy HealthUrea nitrogen [Mass/Vol]43 mg/dLHigh8 - 23 mg/dLBon Secours Mercy HealthNo Panel Informationon 08-30-4246Kciyzybdpsvdoz and review of laboratory resultsAbnormalBon [facility] Centery HealthBon [facility] Centery HealthPTH, [place] [id number] and review of laboratory results AbnormalBon [facility] HospitalParathyrin.intact [Mass/Vol]137.0 pg/bXLdnf88.9 - 58.6 pg/mLBon [facility] HospitalBon [facility] HospitalPTH, Vtnqvf193.0 pg/gLRjew29.9-58.6[facility] HospitalComment on above:Performed By: #### PTHNCA, VD25 #### [facility] [address] [place] [address] Endless Belt Finisher: Alvarado Prasad MD #### CLAIRE, CPBILX #### [facility] [address] [place], [place] [id number] Endless Belt Finisher: Arturo Mac DOPhosphoruson [id number] [Mass/Vol] 2.0 mg/dLLow2.5 - 4.5 mg/dLBon [facility] Mary HospitalPhosphorus, Inorg.on 64-50-5851Tgmhituvti, Inorg.2.0 mg/dLLow2.5-4.5Our [facility] Of Mercy HospitalComment on above:Performed By: #### LISA, VD25 #### [facility] [address] [place] [address] Endless Belt Finisher: Alvarado Prasad MD #### CLAIRE, CPBILX #### [facility] [address] [place] [address] Endless Belt Finisher: Arturo Mac, DOVitamin D 25 Hydroxyon [id number]- hydroxyvitamin D3 [Mass/Vol]34.7 ng/mL30.0 - 100.0 ng/mLCumberland Hospital Comment on above: Reference Range: Vitamin D status Range Deficiency <20 ng/mL Mild Deficiency 20-30 ng/mL Sufficiency 30-100 ng/mL Toxicity >100 ng/mL Cumberland HospitalVitamin D 25 OHon 07-74-1107Jgyfwki D 25 OH34.7 ng/mL Bfeilr10.0-100.0Our [facility] Mercy HospitalComment on above:Result Comment: Reference Range: Vitamin D status Range Deficiency <20 ng/mL Mild Deficiency 20-30 ng/mL Sufficiency 30-100 ng/mL Toxicity >100 ng/mLPerformed By: #### BMP, MG #### [facility] [address] [place] [address] Endless Belt Finisher: Arturo Mac DOBasic Metab w/rfx MGon 11-97-8789Jytqr gap [Moles/Vol]17 mmol/LHigh9-16[facility] Mercy HospitalComment on above:Performed By: #### BMP, MG #### [facility] [address] [place] [address] Endless Belt Finisher: Arturo Mac DOCalcium [Mass/Vol]9.3 mg/dLNormal8.6-10.4 [facility] HospitalComharbor beach community hospital on above:Performed By: #### BMP, MG #### [facility] [address] [place] [address] Endless Belt Finisher: Arturo Mac DOChloride [Moles/Vol]102 mmol/DIycqjv63-069 [facility] on above:Performed By: #### BMP, MG #### [facility] [address] [place] [address] Endless Belt Finisher: Arturo Mac DOCO2 [Moles/Vol]25 mmol/VNotfds51-50MynbbOur Lady Of Mercy HospitalComharbor beach community hospital on above:Performed By: #### BMP, MG #### [facility] [address] [place] [address] Endless Belt Finisher: Arturo Mac DOCreatinine [Mass/Vol]2.7 mg/dLHigh0.7-1.2 [facility] HospitalComharbor beach community hospital on above:Performed By: #### BMP, MG #### [facility] [address] [place] [address] Endless Belt Finisher: Arturo Mac, DOGFR/1.73 sq M.predicted among non-blacks MDRD (S/P/Bld) [Vol rate/Area]22 mL/min/{1.73_m2}Low>60[facility] Comment on above:Result Comment: These results [...] tubular secretion.Performed By: #### BMP, MG #### [facility] [address] [place] [address] Endless Belt Finisher: Arturo Mac, DOGlucose [Mass/Vol]127 mg/uEGfoz41-29IpbmfOhioHealth Marion General HospitalComment on above:Performed By: #### BMP, MG #### [facility] [address] [facility] [place] [address] Endless Belt Finisher: Arturo Mac DOPotassium [Moles/Vol]3.3 mmol/LLow3.7-5.3 [facility] HospitalComment on above:Performed By: #### BMP, MG #### [facility] [facility] [place] [address] Endless Belt Finisher: Arturo Mac, DOSodium [Moles/Vol]144 mmol/YCdhsef370-576 [facility] HospitalComment on above:Performed By: #### BMP, MG #### [facility] [facility] [place] [address] Endless Belt Finisher: Arturo Mac, DOUrea nitrogen [Mass/Vol]61 mg/dLHigh8-23Our [facility] Mercy HospitalComment on above:Performed By: #### BMP, MG #### [facility] [address] [place] [address] Endless Belt Finisher: Arturo Mac DOBasic Metabolic Panelon 33-54-4963Wggor gap [Moles/Vol]18 mmol/LHigh9 - 16 mmol/LBon SecTianma Medical Group HealthCalcium [Mass/Vol] 9.2 mg/dL8.6 - 10.4 mg/dLBon SecTianma Medical Group HealthChloride [Moles/Vol]101 mmol/L 98 - 107 mmol/LBon [facility] Medical CenterTianma Medical Group HealthCO2 [Moles/Vol]23 mmol/L20 - 31 mmol/LBon [facility] Medical CenterTianma Medical Group HealthCreatinine [Mass/Vol]2.8 mg/dLHigh0.7 - 1.2 mg/dLBon [facility] Medical CenterDwollaEst, Armani Filt Ifyv66Jdn- PINFBon Kaiser Permanente Medical CenterAgricultural Holdings International Comment on above: These results are not [...] that affects renal tubular secretion. Glucose [Mass/Vol]122 mg/aMEoad71 - 99 mg/dLBon [facility] [employer] Interpretation and review of laboratory resultsAbnormalBon [facility] [employer] Potassium [Moles/Vol]3.7 mmol/L3.7 - 5.3 mmol/LBon [facility] Medical CenterDwollaSodium [Moles/Vol]142 mmol/L136 - 145 mmol/LBon [facility] Medical CenterDwollaUrea nitrogen [Mass/Vol]63 mg/dLHigh8 - 23 mg/dLBon [facility] Medical CenterDwollaBasic Metabolic Panel w/ Reflex to MGon 42-04-9711Jntsn gap [Moles/Vol]17 mmol/LHigh9 - 16 mmol/LBon SecTianma Medical Group HealthCalcium [Mass/Vol]9.3 mg/dL8.6 - 10.4 mg/dLBon [facility] Medical CenterTianma Medical Group HealthChloride [Moles/Vol]102 mmol/L98 - 107 mmol/LBon [facility] Medical CenterTianma Medical Group HealthCO2 [Moles/Vol]25 mmol/L20 - 31 mmol/LBon [facility] HospitalCreatinine [Mass/Vol] 2.7 mg/dLHigh0.7 - 1.2 mg/dLBon [facility] HospitalEst, Glom Filt Qxwq97Krm- PINFBon [facility] HospitalComment on above: These results are not intended [...] that affects renal tubular secretion. Glucose [Mass/Vol]127 mg/wRCsiz14 - 99 mg/dLBon [facility] Interpretation and review of laboratory resultsAbnormSouthside Regional Medical Center Potassium [Moles/Vol]3.3 mmol/LLow3.7 - 5.3 mmol/LBon [facility] HospitalSodium [Moles/Vol]144 mmol/L136 - 145 mmol/LBon [facility] HospitalUrea nitrogen [Mass/Vol]61 mg/dLHigh8 - 23 mg/dLBon [facility] HealthBasic Metabolic Profon 00-55-5354Ddjum gap [Moles/Vol]18 mmol/LHigh9-16 [facility] HospitalComment on above:Performed By: #### BMP, MG #### [facility] [address] [facility] [place] [address] Endless Belt Finisher: Arturo Mac DOCalcium [Mass/Vol]9.2 mg/dLNormal8.6-10.4 [facility] HospitalComharbor beach community hospital on above:Performed By: #### BMP, MG #### [facility] [address] [facility] [place] [address] Endless Belt Finisher: Arturo Mac DOChloride [Moles/Vol]101 mmol/SZasmbw29-448 [facility] HospitalComharbor beach community hospital on above:Performed By: #### BMP, MG #### [facility] [address] [facility] [place] [address] Endless Belt Finisher: Arturo Mac DOCO2 [Moles/Vol]23 mmol/TUstbrx48-12EbacwOur Lady Of Mercy HospitalComment on above:Performed By: #### BMP, MG #### [facility] [facility] [place] [address] Endless Belt Finisher: Arturo Mac DOCreatinine [Mass/Vol]2.8 mg/dLHigh0.7-1.2 [facility] HospitalComment on above:Performed By: #### DHARA, MG #### [facility] [address] [place] [address]. [place] [address] Endless Belt Finisher: Arturo Mac DOGFR/1.73 sq M.predicted among non-blacks MDRD (S/P/Bld) [Vol rate/Area]21 mL/min/{1.73_m2}Low>60[facility] Comment on above:Result Comment: These results [...] tubular secretion.Performed By: #### DHARA, MG #### [facility] [address] [facility] [place] [address] Endless Belt Finisher: Arturo Mac DOGlucose [Mass/Vol]122 mg/oOBlnh70-45YztrgOhioHealth Marion General HospitalComment on above:Performed By: #### DHARA, MG #### [facility] [address] [facility] [place] [address] Endless Belt Finisher: Arturo Mac DOPotassium [Moles/Vol]3.7 mmol/LNormal3.7-5.3 [facility] HospitalComharbor beach community hospital on above:Performed By: #### BMP, MG #### [facility] [address] [place] [address] Endless Belt Finisher: Arturo Mac, DOSodium [Moles/Vol]142 mmol/RSitihj020-440 [facility] on above:Performed By: #### BMP, MG #### [facility] [address] [place] [address] Endless Belt Finisher: Arturo Mac, DOUrea nitrogen [Mass/Vol]63 mg/dLHigh8-23[facility] HospitalComharbor beach community hospital on above:Performed By: #### BMP, MG #### [facility] [address] [place] [address] Endless Belt Finisher: Arturo Mac, DOCBC with Auto Differentialon 02-25-2025 [...] %[facility] HealthLymphocytes/100 WBC (Bld)1.80 % [facility] HospitalH (RBC) [Entitic mass]29.4 pg26.0 - 34.0 pgBon Marion HospitalHC (RBC) [Mass/Vol]31.5 g/dL31.0 - 37.0 g/dLBon Marion HospitalV (RBC) [Entitic vol]93.4 fL80.0 - 100.[address] [facility] Monocytes/100 WBC (Bld)8 %3 - 12 %[facility] HospitalMonocytes/100 WBC (Bld)0.95 %[facility] HospitalNeutrophils/100 WBC (Bld)75 %High36 - 66 %[facility] HospitalNucleated RBC/100 WBC (Bld) [Ratio]0.0 %0 per 100 WBCCumberland HospitalPlatelet mean volume (Bld) [Entitic vol]9.2 fL8.0 - 13.5 fL Cumberland HospitalPlatelets (Bld) [#/Vol]193 10*3/uLBon [facility] St[facility] HospitalRBC (Bld) [#/Vol]4.52 10*6/uL4.21 - 5.77 m/[facility] Segmented neutrophils/100 WBC (Bld)8.56 %HighCumberland HospitalWBC other (Bld) [#/Vol]11.5HighDickenson Community HospitalCBC with Diffon 90-34-9312Ocu. Basophil0.03 k/uLNormal0.00-0.20[facility] Comment on above:Performed By: #### BMP, MG #### [facility] [address] [place], [place] [phone] Endless Belt Finisher: Arturo Mac DOAbs.Imm.Granulocyte0.07 k/uLNormal0.00-0.30 [facility] HospitalComment on above:Performed By: #### BMP, MG #### [facility] [address] [place], [place] [phone] Endless Belt Finisher: Arturo Mac DOAbs.Neutrophil (Seg)9.67 k/uLHigh1.50-8.10 [facility] on above:Performed By: #### BMP, MG #### [facility] [address] [place] [address] Endless Belt Finisher: Arturo Mac DOBasophils/100 WBC (Bld)0 %Normal0-2MOhioHealth Marion General HospitalComharbor beach community hospital on above:Performed By: #### BMP, MG #### [facility] [address] [place] [address] Endless Belt Finisher: Arturo Mac DOEosinophils (Bld) [#/Vol]0.08 10*3/uLNormal 0.00-0.44[facility] on above:Performed By: #### DHARA, MG #### [facility] [address] [place] [address] Endless Belt Finisher: Arturo Mac DOEosinophils/100 WBC (Bld)1 %Normal0-4[facility] on above:Performed By: #### BMP, MG #### [facility] [address] [place] [address] Endless Belt Finisher: Arturo Mac DOErythrocyte distribution width (RBC) [Ratio] 14.3 %Fyegfn51.5-14.9[facility] on above:Performed By: #### BMP, MG #### [facility] [address] [place] [address] Endless Belt Finisher: Arturo Mac DOHematocrit (Bld) [Volume fraction]42.8 % Zycham89.0-53.0[facility] HospitalComharbor beach community hospital on above:Performed By: #### BMP, MG #### [facility] [address] [place] [address] Endless Belt Finisher: Arturo Mca, DOHemoglobin (Bld) [Mass/Vol]13.7 g/dLNormal 13.5-17.5[facility] on above:Performed By: #### BMP, MG #### [facility] [address] [place] [address] Endless Belt Finisher: Arturo Mac, DOImmature granulocytes/100 WBC (Bld)1 %High0 [facility] on above:Performed By: #### BMP, MG #### [facility] [address] [place] [address] Endless Belt Finisher: Arturo Mac, DOLymphocytes (Bld) [#/Vol]1.33 10*3/uLNormal 1.10-3.70[facility] on above:Performed By: #### BMP, MG #### [facility] [address] [place] [address] Endless Belt Finisher: Arturo Mac DOLymphocytes/100 WBC (Bld)11 %Kbw16-95KdiwtGalion Community Hospital on above:Performed By: #### BMP, MG #### [address] [address] Endless Belt Finisher: Arturo Mac DOMCH (RBC) [Entitic mass]29.5 pgNormal 26.0-34.0[facility] Mer[facility] HospitalComharbor beach community hospital on above:Performed By: #### BMP, MG #### [facility] [address] [place] [address] Endless Belt Finisher: Arturo Mac DOMCHC (RBC) [Mass/Vol]32.0 g/hUOupnjh59.0-37.0 [facility] on above:Performed By: #### BMP, MG #### [facility] [address] [facility] [place] [address] Endless Belt Finisher: Arturo Mac DOMCV (RBC) [Entitic vol]92.0 fLNormal 80.0-100.0[facility] on above:Performed By: #### BMP, MG #### [facility] [facility] [place] [address] Endless Belt Finisher: Arturo Mac DOMonocytes (Bld) [#/Vol]1.17 10*3/uLNormal 0.10-1.20[facility] on above:Performed By: #### BMP, MG #### [facility] [address] [place] [address]. [place] [address] Endless Belt Finisher: Arturo Mac DOMonocytes/100 WBC (Bld)10 %Normal3-12[facility] on above:Performed By: #### BMP, MG #### [facility] [address] [place] [address]. [place] [address] Endless Belt Finisher: Arturo Mac DONeutrophil (Seg)77 %Mvai57-85SsrsaGalion Community Hospital on above:Performed By: #### BMP, MG #### [facility] [address] [place] [address]. [place] [address] Endless Belt Finisher: Arturo aMc DONRBC Automated0.0 per 100 WACYivdln5XexpkGalion Community Hospital on above:Performed By: #### BMP, MG #### [facility] [address] [place] [address]. [place] [address] Endless Belt Finisher: Arturo Mac DOPlatelet mean volume (Bld) [Entitic vol]9.2 fLNormal8.0-13.5[facility] on above:Performed By: #### BMP, MG #### [facility] [address] [facility] [place] [address] Endless Belt Finisher: Arturo Mac DOPlatelets (Bld) [#/Vol]219 10*3/uLNormal 150-450[facility] HospitalComharbor beach community hospital on above:Performed By: #### BMP, MG #### [facility] [address] [place] [address]. [place] [address] Endless Belt Finisher: Arturo Mac DORBC (Bld) [#/Vol]4.65 10*6/uLNormal4.21-5.77 [facility] on above:Performed By: #### DHARA, MG #### [facility] [address] [place] [address]. [place] [address] Endless Belt Finisher: Arturo Mac DOWBC (Bld) [#/Vol]12.4 10*3/uLHigh3.5-11.0 [facility] on above:Performed By: #### DHARA, MG #### [facility] [address] [place] [address]. [place] [address] Endless Belt Finisher: Arturo Mac DOAbs. Basophil0.05 k/uLNormal0.00-0.20[facility] on above:Performed By: #### DHARA, MG #### [facility] [address] [place] [address]. [place] [address] Endless Belt Finisher: Arturo Mac DOAbs.Imm.Granulocyte0.03 k/uLNormal0.00-0.30 [facility] on above:Performed By: #### DHARA, MG #### [facility] [address] [place] [address]. [place] [address] Endless Belt Finisher: Arturo Mac DOAbs.Neutrophil (Seg)8.56 k/uLHigh1.50-8.10 [facility] on above:Performed By: #### BMP, MG #### [facility] [place] [address] Endless Belt Finisher: Arturo Mac DOBasophils/100 WBC (Bld)0 %Normal0-2MOhioHealth Marion General HospitalComharbor beach community hospital on above:Performed By: #### BMP, MG #### [facility] [place] [address] Endless Belt Finisher: Arturo Mac DOEosinophils (Bld) [#/Vol]0.13 10*3/uLNormal 0.00-0.44[facility] HospitalComharbor beach community hospital on above:Performed By: #### BMP, MG #### [facility] [address] [place] [address] Endless Belt Finisher: Arturo Mac DOEosinophils/100 WBC (Bld)1 %Normal0-4[facility] HospitalComharbor beach community hospital on above:Performed By: #### BMP, MG #### [facility] [address] [place] [address] Endless Belt Finisher: Arturo Mac DOErythrocyte distribution width (RBC) [Ratio] 14.2 %Riewfh94.5-14.9[facility] on above:Performed By: #### BMP, MG #### [facility] [address] [place] [address] Endless Belt Finisher: Arturo Mac DOHematocrit (Bld) [Volume fraction]42.2 % Wksxsl85.0-53.0[facility] HospitalComharbor beach community hospital on above:Performed By: #### BMP, MG #### [facility] [address] [place] [address] Endless Belt Finisher: Arturo Mac DOHemoglobin (Bld) [Mass/Vol]13.3 g/dLLow 13.5-17.5[facility] on above:Performed By: #### BMP, MG #### [facility] [address] [place] [address] Endless Belt Finisher: Arturo Mac DOImmature granulocytes/100 WBC (Bld)0 %Normal0 [facility] on above:Performed By: #### BMP, MG #### [facility] [address] [place] [address] Endless Belt Finisher: Arturo Mac DOLymphocytes (Bld) [#/Vol]1.80 10*3/uLNormal 1.10-3.70[facility] on above:Performed By: #### BMP, MG #### [facility] [address] [place] [address] Endless Belt Finisher: Arturo Mac DOLymphocytes/100 WBC (Bld)16 %Cpz53-26MquvrGalion Community Hospital on above:Performed By: #### BMP, MG #### [facility] [address] [place] [address] Endless Belt Finisher: Arturo Mac DOMCH (RBC) [Entitic mass]29.4 pgNormal 26.0-34.0[facility] on above:Performed By: #### BMP, MG #### [facility] [address] [place] [address] Endless Belt Finisher: Arturo Mac DOMCHC (RBC) [Mass/Vol]31.5 g/zPZsqkfy45.0-37.0 [facility] on above:Performed By: #### BMP, MG #### [facility] [address] [place] [address] Endless Belt Finisher: Arturo Mac DOMCV (RBC) [Entitic vol]93.4 fLNormal 80.0-100.0[facility] on above:Performed By: #### BMP, MG #### [facility] [place] [address] Endless Belt Finisher: Arturo Mac DOMonocytes (Bld) [#/Vol]0.95 10*3/uLNormal 0.10-1.20[facility] on above:Performed By: #### BMP, MG #### [facility] [place] [address] Endless Belt Finisher: Arturo Mac DOMonocytes/100 WBC (Bld)8 %Normal3-12[facility] on above:Performed By: #### BMP, MG #### [facility] [address] [place] [address] Endless Belt Finisher: Arturo Mac DONeutrophil (Seg)75 %Lkuk96-51RjrllOur Lady Of Mercy HospitalComharbor beach community hospital on above:Performed By: #### BMP, MG #### [facility] [address] [place] [address] Endless Belt Finisher: Arturo Mac DONRBC Automated0.0 per 100 WKNRyyxlo9EexfqOur Lady Of Mercy HospitalComharbor beach community hospital on above:Performed By: #### BMP, MG #### [facility] [address] [place] [address] Endless Belt Finisher: Arturo Mac DOPlatelet mean volume (Bld) [Entitic vol]9.2 fLNormal8.0-13.5[facility] on above:Performed By: #### BMP, MG #### [facility] [address] [place] [address] Endless [employer] Finisher: Arturo Mac DOPlatelets (Bld) [#/Vol]193 10*3/uLNormal 150-450[facility] Mer[facility] HospitalComharbor beach community hospital on above:Performed By: #### BMP, MG #### [facility] [address] [facility]. [place] [address] Endless Belt Finisher: Arturo Mac DORBC (Bld) [#/Vol]4.52 10*6/uLNormal4.21-5.77 [facility] on above:Performed By: #### BMP, MG #### [facility] [address] [place] [address] Endless Belt Finisher: Arturo Mac DOWBC (Bld) [#/Vol]11.5 10*3/uLHigh3.5-11.0 [facility] on above:Performed By: #### BMP, MG #### [facility] [address] [facility] [place] [address] Endless Belt Finisher: Arturo Mac DOCBC with auto differentialon 02-25-2025 [...] [Mass/Vol]13.7 g/dL13.5 - 17.5 g/dLBon Secours Mercy [facility] Geneva Medical CenterImmature granulocytes (Bld) [#/Vol]0.07 10*3/uLBon Secours [facility]cy Health Immature granulocytes/100 WBC (Bld)1 %Hzee0Uuf [facility] Interpretation and review of laboratory resultsAbnormalCumberland Hospital Lymphocytes/100 WBC (Bld)11 %Low24 - 44 %Cumberland HospitalLymphocytes/100 WBC (Bld)1.33 %[facility] HospitalH (RBC) [Entitic mass]29.5 pg26.0 - 34.0 pgJohnston Memorial HospitalHC (RBC) [Mass/Vol]32.0 g/dL31.0 - 37.0 g/dLBon Marion HospitalV (RBC) [Entitic vol]92.0 fL80.0 - 100.0 fLCumberland HospitalMonocytes/100 WBC (Bld)10 %3 - 12 %[facility] Monocytes/100 WBC (Bld)1.17 %[facility]umberland HospitalNeutrophils/100 WBC (Bld)77 %High36 - 66 %[facility]umberland HospitalNucleated RBC/100 WBC (Bld) [Ratio]0.0 %0 per 100 WBCCumberland HospitalPlatelet mean volume (Bld) [Entitic vol]9.2 fL8.0 - 13.5 fLCumberland HospitalPlatelets (Bld) [#/Vol]219 10*3/uLBon [facility] St. Mary HospitalRBC (Bld) [#/Vol]4.65 10*6/uL4.21 - 5.77 m/uLCumberland HospitalSegmented neutrophils/100 WBC (Bld)9.67 %HighCumberland HospitalWBC other (Bld) [#/Vol]12.4HighDickenson Community HospitalCT CERVICAL SPINE WO CONTRASTon 41-18-2370HU CERVICAL SPINE WO CONTRAST EXAMINATION: CT OF [...] by: Jonathan Diaz MD 02/25/25 Final resultNormalMercy Miami Valley HospitalCT Cervical spine WO contraston . No evidence of cervical spine fracture. Minimal grade 1 anterolisthesis of C3 on C4, suspected to be chronic. If clinical concern persists, consider flexion-extension views. 2. Moderate to severe degenerative disc disease at C5-C6, C6-C7, C7-T1. 3. Moderate bilateral left neural foraminal narrowing at C5-C6, C6-C7, C7-T1. RUST RIS CONSOLIDATEDEXAMINATION: CT OF THE CERVICAL SPINE [...] foraminal narrowing at C5-C6, C6-C7, C7-T1. Bon [employer] LimitedNM Cervical spine WO contrastOrdered By: Jonathan Diaz on 19-90-7070Nho [employer] Work Phone: ct HEAD WO CONTRASTon [id number] HEAD WO CONTRAST EXAMINATION: CT OF THE [...] acute findings in the head. Interpreted by: Chadd Ocasio MD Signed by: Chadd Ocasio MD 02/25/25 Final resultNormalMercy Miami Valley HospitalCT Head WO contraston 01-40-2416Yl acute findings in the head. [facility] CONSOLIDATEDEXAMINATION: CT OF THE HEAD WITHOUT CONTRAST [...] to severe atherosclerotic calcifications. No acute fracture. [facility] Chadd Bell MD - 02/25/2025 EXAMINATION: CT [...] IMPRESSION: No acute findings in the head. [facility] [employer] LimitedNM Head WO contrastOrdered By: Chadd Ocasio on 27-40-8173Gof [facility] Work Phone: Hemoglobin A1Con 48-26-2916Okjsttq glucose Estimated from glycated hemoglobin (Bld) [Mass/Vol]117 mg/dLBon [facility] Comment on above:The ADA and AACC recommend providing the estimated average glucose result to permit better patient understanding of their HBA1c result. HbA1c (Bld) [Mass fraction]5.7 %4.0 - 6.0 %[facility] HospitalTianma Medical Group [facility] Hospital [facility] The King's DaughtersGlucose [Mass/Vol]117 mg/dLNormalMerMercy Health Urbana HospitalComment on above:Result Comment: The ADA and AACC recommend providing the estimated average glucose result to permit better patient understanding of their HBA1c result.Performed By: #### BMP, MG #### [facility] [address] [place] [address] Endless Belt Finisher: Arturo Mac DOHbA1c (Bld) [Mass fraction]5.7 %Normal4.0-6.0 [facility] Mer[facility] HospitalComment on above:Performed By: #### BMP, MG #### [facility] [address] [place] [address] Endless Belt Finisher: Arturo Mac DOLipid Panelon 52-71-0131Dtudjcfuwpz [Mass/Vol]135 mg/dL0 - 199 mg/dLBon [facility] Mary HospitalComment on above: Cholesterol Guidelines: <200 Desirable 200-240 Borderline >240 Undesirable Cholesterol in HDL [Mass/Vol]53 mg/dL40 - PINF mg/dLBon [facility] Comment on above: HDL Guidelines: <40 Undesirable 40-59 Borderline >59 Desirable Cholesterol in LDL [Mass/Vol]71 mg/dL0 - 100 mg/dLBon [facility] Comment on above: LDL Guidelines: <100 Desirable 100-129 Near to/above Desirable 130-159 Borderline >159 Undesirable Direct (measured) LDL and calculated LDL are not interchangeable tests. Cholesterol.total/Cholesterol in HDL [Mass ratio]2.5 {ratio}Bon [facility] Mary HospitalTriglyceride [Mass/Vol]57 mg/dL0 - 149 mg/dLBon [facility] Comment on above: Triglyceride Guidelines: <150 Desirable 150-199 Borderline 200-499 High >499 Very high Based on AHA Guidelines for fasting triglyceride, April 2012. Lipid Profileon 24-25-4300Rnpfmkyibqt [Mass/Vol]135 mg/dLNormal0-199[facility] HospitalComharbor beach community hospital on above:Result Comment: Cholesterol Guidelines: <200 Desirable 200-240 Borderline >240 UndesirablePerformed By: #### BMP, MG #### [facility] [address] [place] [address] Endless Belt Finisher: Arturo Mac DOCholesterol in HDL [Mass/Vol]53 mg/dLNormal >40Our [facility] Mercy HospitalComharbor beach community hospital on above:Result Comment: HDL Guidelines: <40 Undesirable 40-59 Borderline >59 DesirablePerformed By: #### BMP, MG #### [facility] [address] [place] [address] Endless Belt Finisher: Arturo Mac DOCholesterol in LDL [Mass/Vol]71 mg/dLNormal 0-100[facility] on above:Result Comment: LDL Guidelines: <100 Desirable 100-129 Near to/above Desirable 130-159 Borderline >159 Undesirable Direct (measured) LDL and calculated LDL are not interchangeable tests.Performed By: #### BMP, MG #### [facility] [address] [facility] [place] [address] Endless Belt Finisher: Arturo Mac DOCholesterol.total/Cholesterol in HDL [Mass ratio]2.5 {ratio}NormalOur Lady Of Mercy HospitalComharbor beach community hospital on above:Performed By: #### BMP, MG #### [facility] [address] [place] [address] Endless Belt Finisher: Arturo Mac DOTriglyceride [Mass/Vol]57 mg/dLNormal0-149 [facility] HospitalComharbor beach community hospital on above:Result Comment: Triglyceride Guidelines: <150 Desirable 150-199 Borderline 200-499 High >499 Very high Based on AHA Guidelines for fasting triglyceride, April 2012.Performed By: #### BMP, MG #### [facility] [address] [place] [address] Endless Belt Finisher: Arturo Mac DOMagnesiumon 38-30-7669Lqqfletfo [Mass/Vol]2.0 mg/dL1.6 - 2.4 mg/dLBon [facility] Mary HospitalBon [facility] Mary HospitalMagnesium [Mass/Vol]2.0 mg/dLNormal1.6-2.4[facility] on above: Performed By: #### BMP, MG #### [facility] [address] [facility] [place] [address] Endless Belt Finisher: Arturo Mac DOMagnesium [Mass/Vol]2.1 mg/dL1.6 - 2.4 mg/dL Bon [facility] Mary HospitalMagnesium [Mass/Vol]2.1 mg/dLNormal1.6-2.4[facility] HospitalComment on above:Performed By: #### BMP, MG #### [facility] [employer] [facility] [address] [place] [address] Endless Belt Finisher: Arturo Mac DOMicroscopic Urinalysison 42-42-5241Efsspawt LM Ql (Urine sed)NoneNoneBon [employer] Manufacturing LimitedCasts LM.LPF (Urine sed) [#/Area]0 TO 2AbnormalNone /LPFBon [employer] Manufacturing LimitedEpithelial cells LM.HPF (Urine sed) [#/Area]0 TO 2/HPFBon [employer] LimitedInterpretation and review of laboratory resultsAbnormalBon [facility] [employer]ing[employer] TechnologyRBC LM.HPF (Urine sed) [#/Area]0 TO 20 TO 2 /HPFBon [employer] LimitedWBC LM.HPF (Urine sed) [#/Area] 0 TO 1Zlbtnonp0 TO 5 /HPFBon Secours [place] PingCo TechnologyBon Valleywise Health Medical CenterDwollaNo Panel Informationon 97-62-1324Fnt [employer]1. Acute impacted subcapital left femoral neck fracture. 2. No acute findings in the left knee. RUST RIS CONSOLIDATEDEXAMINATION: ONE XRAY VIEW OF THE [...] No acute findings in the left knee. [facility] Hospitaliology Study observation (narrative)[facility] Hospitaliology Study observation (narrative)[facility] reflex to [id number] Qn1.91 m[IU]/LBon [facility] w/reflex to [id number] Stim. Horm.1.91 uIU/mLNormal0.27-4.20[facility] HospitalComment on above: Performed By: #### MG DHARA #### [facility] Lab [address] [place] [address] Endless Belt Finisher: Arturo Mac DOUA w/Reflex Cultureon 50-90-8921Mvlqrsrca, SemiQt,UrNegativeNormalNEGMercy Miami Valley HospitalComharbor beach community hospital on above:Performed By: #### BMP, MG #### [facility] Lab [address] [place] [address]. [place] [address] Endless Belt Finisher: Arturo Mac DOBlood, UrineSMALLAbnormalNEGMercy [facility] HospitalComharbor beach community hospital on above:Performed By: #### BMP, MG #### [facility] Lab [address] [place] [address] Endless Belt Finisher: Arturo Mac DOClarity (U)ClearNormalCLEARMerAkron Children's Hospital on above:Performed By: #### BMP, MG #### [address] [address] Endless Belt Finisher: Arturo Mac DOColor (U)YellowNormalYELMercy Miami Valley HospitalComharbor beach community hospital on above:Performed By: #### BMP, MG #### [address] [address] Endless Belt Finisher: Arturo Mac DOGlucose Ql (U)NegativeNormalNEGMercy Memorial Health [facility] on above:Performed By: #### BMP, MG #### [facility] [address] [place] [address]. [place] [address] Endless Belt Finisher: Arturo Mac DOKetones Ql (U)NegativeNormalNEGMercy [facility] HospitalComharbor beach community hospital on above:Performed By: #### BMP, MG #### [facility] [address] [place] [address] Endless Belt Finisher: Arturo Mac DOLeukocyte esterase Test strip Ql (U)Negative NormalNEGMercy [facility] HospitalComharbor beach community hospital on above:Performed By: #### BMP, MG #### [facility] Lab [address] [place] [address] [place] [address] Endless Belt Finisher: Arturo Mac DONitrite,UrNegativeNormalNEGGalion Community Hospital on above:Performed By: #### BMP, MG #### [facility] [address] [place] [address] Endless Belt Finisher: Arturo Mac DOPH,Ur5.1Ipditi9.0-8.0[facility] on above:Performed By: #### BMP, MG #### [facility] [address] [place] [address] Endless Belt Finisher: Arturo Mac DOProtein Ql (U)1+ mg/dLAbnormalNEGGalion Community Hospital on above:Performed By: #### BMP, MG #### [facility] [address] [place] [address] Endless Belt Finisher: Arturo Mac DOSpec. Rancocas,Ur1.409Dpwgjp7.000-1.030[facility] on above:Performed By: #### BMP, MG #### [facility] [address] [place] [address] Endless Belt Finisher: Arturo Mac DOUrobilinogen,UrNormalNormal0.0-1.0[facility] on above:Performed By: #### BMP, MG #### [facility] [address] [place] [address] Endless Belt Finisher: Arturo Mac DOUrinalysis with Reflex to Cultureon 19-21-2157Hrnexrklm Ql (U)NegativeNEGATIVEBon [facility] Mary HospitalClarity (U) ClearClearBon [facility] Mary HospitalColor (U)YellowYellowBon [facility] Glucose Test strip (U) [Mass/Vol]NegativeNEGATIVE mg/dLBon [facility] Hemoglobin Auto test strip Ql (U)SMALLAbnormalNEGATIVECumberland Hospital Interpretation and review of laboratory resultsAbnormalCumberland Hospital Ketones (U) [Mass/Vol]NegativeNEGATIVE mg/dLBon [facility] Mary HospitalLeukocyte esterase Test strip Ql (U)NegativeNEGATIVEBon [facility] Mary HospitalNitrite Ql (U) NegativeNEGATIVEBon [facility] Mary HospitalpH (U)5.0 [pH]5.0 - 8.0Cumberland HospitalProtein (U) [Mass/Vol]1+AbnormalNEGATIVE mg/dLBTwin County Regional Healthcare Specific gravity (U) [Rel density]1.0161.000 - 1.030[facility] Urobilinogen Qn (U)Normal0.0 - 1.0 EU/dLBon [facility] / Avera HealthUrinalysis,Microon 51-31-5966OxfofzydMyqrKijttaJTVXAynvp St. Charles HospitalComment on above:Performed By: #### BMP, MG #### [facility] Lab [address] [place] [address] Endless Belt Finisher: Arturo Mac DOCasts0 TO 2AbnormalBarnesville HospitalComharbor beach community hospital on above:Performed By: #### BMP, MG #### [facility] [place] [address] Endless Belt Finisher: Arturo Mac DOEpithelial cells LM Ql (Urine sed)0 TO 2 NormalOur Lady Of Mercy HospitalComharbor beach community hospital on above:Performed By: #### BMP, MG #### [facility] [place] [address] Endless Belt Finisher: Arturo Mac DOUrine RBC's0 TO 5PjglvxJ69OfjefGalion Community Hospital on above:Performed By: #### BMP, MG #### [facility] Lab [address] [place] [address] Endless Belt Finisher: Arturo Mac DOUrine WBC's0 TO 0SzaheynoT62RbswoMercy Health Urbana HospitalComment on above:Performed By: #### [facility], [place] #### [facility] Lab [address] [place] [address] Endless Belt Finisher: Arturo Mac DOXR CHEST (SINGLE VIEW FRONTAL)on 04-37-1143KD CHEST (SINGLE VIEW FRONTAL)EXAMINATION: ONE XRAY VIEW [...] Signed by: Chadd Ocasio MD 02/25/25 Final resultNormalMerMercy Health Urbana Hospital1. Soft tissue gas in the lateral [...] 2. Pulmonary vascular congestion and borderline cardiomegaly. Cumberland HospitalBon [facility] Mary HospitalXR HIP 2-3 VW W PELVIS LEFTon 82-94-2192XE HIP 2-3 VW W PELVIS LEFTEXAMINATION: ONE [...] Signed by: Chadd Ocasio MD 02/25/25 Final resultNormBlanchard Valley Health SystemXR HIP LEFT (1 VIEW)on 55-21-7575UI HIP LEFT (1 VIEW)EXAM: 1 VIEW XRAY [...] Signed by: Chadd [place] MD 02/25/25 Final resultNoBucyrus Community HospitalXR Hip - left Single viewon . Status post left hip Hemiarthroplasty with no hardware complications. [facility] CONSOLIDATEDEXAM: 1 VIEW XRAY OF THE LEFT HIP 02/25/2025 01:28:14 PM COMPARISON: None available. CLINICAL HISTORY: Total hip in OR. FINDINGS: BONES AND JOINTS: Status post left hip hemiarthroplasty. No hardware complications. SOFT TISSUES: The soft tissues are unremarkable. [facility] Chadd Wray MD - 02/25/2025 EXAM: 1 VIEW XRAY OF THE LEFT HIP 02/25/2025 01:28:14 PM COMPARISON: None available. CLINICAL HISTORY: Total hip in OR. FINDINGS: BONES AND JOINTS: Status post left hip hemiarthroplasty. No hardware complications. SOFT TISSUES: The soft tissues are unremarkable. IMPRESSION: 1. Status post left hip Hemiarthroplasty with no hardware complications. [facility] HospitalRadiology Study observation (narrative)[facility]umberland HospitalXR Hip - left Single viewOrdered By: Chadd [place] on 76-82-5146Dlo [facility] [employer] Work Phone: XR KNEE LEFT (3 VIEWS)on 58-19-8311EV KNEE LEFT (3 VIEWS)EXAMINATION: ONE XRAY VIEW [...] by: Chadd Ocasio MD 02/25/25 Final resultNormalMercy Miami Valley HospitalXR Knee - left 3 Viewson 02-25-2025 Radiology Study observation (narrative)Cumberland HospitalCBC (NO DIFF)on 61-04-9468Cbmdjegzxly distribution width (RBC) [Ratio]14.0 %Punzdd33.5-15 [facility]huja Medical CenterComment on above:Performed By: #### CBC #### [facility] ([address] [place] [address] VIRHematocrit (Bld) [Volume fraction]42.4 %Himtdl17-02 [facility]ja Medical CenterComment on above:Performed By: #### CBC #### [facility] ([facility]) [address] [place] [address] [place] [address] VIRHemoglobin (Bld) [Mass/Vol]13.9 g/rCDankzx91-08IomZfgstcAdventhealth Central TexasComment on above:Performed By: #### CBC #### [facility] ([facility]) [address] [place] [address] [place] [address] VIRMCH (RBC) [Entitic mass]29.8 tmPtpalv86-89WzzMbtysfAdventhealth Central TexasComment on above:Performed By: #### CBC #### [facility] ([facility]) [address] [place] [address] [place] [address] VIRMCHC (RBC) [Mass/Vol]32.8 g/eLUhggpj02-37UnpVbtvbbAdventhealth Central TexasComment on above:Performed By: #### CBC #### [facility] ([address] [place] [address] VIRMCV (RBC) [Entitic vol]91 pCJltcgi54-096VctUsoapaUniversity Hospitals Ahuja Medical CenterComment on above:Performed By: #### CBC #### [facility] ([facility]) [address] [place] [address] [place] [address] VIRPlatelet mean volume (Bld) [Entitic vol]8.1 fLNormal7-12 [facility]ja Medical CenterComment on above:Performed By: #### CBC #### [facility] ([address] [place] [address] VIRPlatelets (Bld) [#/Vol]244 10*3/lAOkpnjk169-649VmqNlpaje [facility]remont HospitalComment on above:Performed By: #### CBC #### [facility] ([address] [place] [address] VIRRBC COUNT4.67 X10E12/LNormal4.1-5.7ProAdventhealth Central TexasComment on above:Performed By: #### CBC #### [facility] ([address] [place] [address] VIRWBC (Bld) [#/Vol]8.5 10*3/uLNormal4-11ProAdventhealth Central TexasComment on above:Performed By: #### CBC #### [facility] ([address] [place] [address] VIRELECTROLYTE PANELon 30-18-5148Fasjf gap [Moles/Vol]8 mmol/L Normal5-15ProAdventhealth Central TexasComment on above:Performed By: #### ELEC #### [facility] ([address] [place] [address] VIRChloride [Moles/Vol]102 mmol/UDmjbuw11-397CajSsutlwAdventhealth Central TexasComment on above:Performed By: #### ELEC #### [facility] ([address] [place] [address] VIRCO2 [Moles/Vol]25 mmol/YFjqbzw37-19SyoCswocc [facility]ont HospitalComment on above:Performed By: #### ELEC #### [facility] ([address] [place] [address] VIRPotassium [Moles/Vol]3.9 mmol/LNormal3.5-5.0ProAdventhealth Central TexasComment on above:Performed By: #### ELEC #### [facility] ([address] [place] [address] VIRSodium [Moles/Vol]135 mmol/IZztepl215-400OrkAumezm [facility]ont HospitalComment on above:Performed By: #### ELEC #### [facility] ([address] [place] [address] VIRLIPID PROFILEon 24-61-7348Grjqivipiaq [Mass/Vol]150 mg/dL Dbhbaq703-769BciSqxmyxAdventhealth Central TexasComment on above:Performed By: #### LIPR #### [facility] ([facility]) [address] [place] [address] VIRCholesterol in HDL [Mass/Vol]61 mg/dLNormal>39ProAdventhealth Central TexasComment on above:Result Comment: HDL <40 mg/dL - High Risk HDL > or = 40mg/dL- Desirable HDL >60 mg/dL - Negative RiskPerformed By: #### LIPR #### [facility] ([facility]) [address] [place] [address] VIRCholesterol in LDL [Mass/Vol]63 mg/dLNormal<130ProAdventhealth Central TexasComment on above:Result Comment: LDL <100 mg/dL - Desirable LDL >160 mg/dL - High RiskPerformed By: #### LIPR #### [facility] ([facility]) [address] [place] [address] VIRCHOLESTEROL:HDL2.5Bweuns7.0-5.0[facility] Comment on above:Performed By: #### LIPR #### [facility] ([facility]) [address] [place] [address] VIRTriglyceride [Mass/Vol]130 mg/bZZzbshv56-541HpbWejwhc [facility]remont HospitalComment on above:Performed By: #### LIPR #### [facility] ([facility]) [address] [place] [address] VIRVERY LOW TQGMRHSGMDV65 mg/dLNormal0-30ProAdventhealth Central TexasComment on above:Performed By: #### LIPR #### [facility] ([facility]) [address] [place] [address] VIRTSHon 31-84-9198KRN0.16 uIU/mLNormal0.49-4.67ProAdventhealth Central TexasComment on above:Performed By: #### TSH #### [facility] ([facility]) [address] [facility] [place] [address] VIRVITAMIN D 25 HYDROXYon 01-29-1856XFWTHRJ D 25 HYD TOT39.0 ng/hBSlmpsx48.0-100.0ProAdventhealth Central TexasComment on above:Order Comment: Vitamin D status 25 [place] Vitamin D Deficiency <20 ng/mL Insufficiency 20-29 ng/mL Sufficiency 30-100 ng/mL Toxicity >100 ng/mL NOTE: A pediatric reference range has not been established by the roll inspector of this kit. The [place] [employer] recommends a Vitamin D level of = or >20ng/mL in infants and children.Performed By: #### VITD #### [facility] ([facility]) [address] [place] [address] VIRCBC AND AUTO DIFFon 13-48-7577RBPRLPGR BASOPHIL0.1 X10E9/L Normal0.0-0.2PShelby Memorial HospitalComment on above:Performed By: #### CBCA, THYR, 3051-0 #### [facility] ([id number]) [address] [place], [place] [address]BWKJMIFJ NEUTROPHIL4.9 X10E9/LNormal1.5-6.6ProAdventhealth Central TexasComment on above:Performed By: #### CBCA, THYR, 3051-0 #### [facility] ([id number]) [address] [place], [place] [address]Hpwgvcjcu/100 WBC (Bld)1.3 %NormalProAdventhealth Central Texas Comment on above:Performed By: #### CBCA, THYR, 3051-0 #### [facility] ([id number]) [address] [place], [place] [address]Izimmdnqdeh (Bld) [#/Vol]0.3 10*3/uLNormal0.0-0.4[facility]huja Medical CenterComment on above:Performed By: #### CBCA, THYR, 0 #### [facility] ([id number]) [address] [place] [address]Vykwcapwvci/100 WBC (Bld)3.5 %NormalProAdventhealth Central Texas Comment on above:Performed By: #### CBCA, THYR, 0 #### [facility] ([id number]) [address] [facility] [address] [place], [place] [address]Dpqsdnabxab distribution width (RBC) [Ratio]13.5 %Normal 11.5-15.0[facility] Ahuja Medical CenterComment on above:Performed By: #### CBCWillian, THYR, 0 #### [facility] [facility] ([id number]) [address], [address] [place], [place] [address]Vgnrzhnkpf (Bld) [Volume fraction]41.0 %Kppkjq82-06JjdNfactqAdventhealth Central TexasComment on above:Performed By: #### CBCA, THYR, 0 #### [facility] ([id number]) [address] [address] [place] [address]Wtsvclkcaa (Bld) [Mass/Vol]13.3 g/wUOqluux26.0-17.0[facility] Ahuja Medical CenterComment on above:Performed By: #### CBCA, THYR, 0 #### [facility] ([id number]) [address] [address] [place], [place] [address]Ugnynpzbddi (Bld) [#/Vol]2.6 10*3/uLNormal1.0-3.5PShelby Memorial HospitalComment on above:Performed By: #### CBCA, THYR, 0 #### [facility] ([id number]) [address], [address] [place], [place] [address]Otsvdnccybb/100 WBC (Bld)30.3 %NormalUniversity Hospitals Ahuja Medical Center Comment on above:Performed By: #### CBCA, THYR, 305-0 #### [facility] ([id number]) [address], [address] [place], [place] [address]HCO (RBC) [Entitic mass]29.5 hwVpabdq06-37JxiFpvlzmUniversity Hospitals Ahuja Medical CenterComment on above:Performed By: #### CBCA, THYR, 305-0 #### [facility] ([id number]) [address] [place], [place] [address]LEUI (RBC) [Mass/Vol]32.3 g/oXUvkiky11-72RqzFustgmAdventhealth Central TexasComment on above:Performed By: #### CBCA, THYR, 305-0 #### [facility] ([id number]) [address] [place], [place] [address]JXS (RBC) [Entitic vol]91 iEBdwkwo06-735HdtMsmxva [facility]remont HospitalComment on above:Performed By: #### CBCA, THYR, 305-0 #### [facility] ([id number]) [address], [address] [place], [place] [address]Mponwsxfv (Bld) [#/Vol]0.8 10*3/uLNormal0-0.9[facility] Ahuja Medical CenterComment on above:Performed By: #### CBCA, THYR, 305-0 #### [facility] ([id number]) [address], [address] [place], [place] [address]Pbuyxwizl/100 WBC (Bld)9.4 %NormalUniversity Hospitals Ahuja Medical Center Comment on above:Performed By: #### CBCA, THYR, 305-0 #### [facility] ([id number]) [address], [address] [place], [place] [address]Dbquacsmqgt/100 WBC (Bld)55.5 %NormalUniversity Hospitals Ahuja Medical Center Comment on above:Performed By: #### CBCWillian, THYR, 3050-0 #### [facility] ([id number]) [address] [place] [address]Zqkcjpne mean volume (Bld) [Entitic vol]8.0 fLNormal7-12 [facility]huja Medical CenterComment on above:Performed By: #### CBCA, THYR, 3050-0 #### [facility] ([id number]) [address] [place] [address]Karwbdpro (Bld) [#/Vol]231 10*3/cYXkumjf486-916NenGgdxgi [facility] HospitalComment on above:Performed By: #### CBCWillian, THYR, 3050-0 #### [facility] ([id number]) [address] [place] [address]MOR COUNT4.49 X10E12/LNormal4.10-5.70[facility] Comment on above:Performed By: #### CBCA, THYR, 3050-0 #### [facility] ([id number]) [address], [address] [place], [place] [address]MSQ (Bld) [#/Vol]8.8 10*3/uLNormal4.0-11.0[facility] Ahuja Medical CenterComment on above:Performed By: #### CBCA, THYR, 305-0 #### [facility] ([id number]) [address], [address] [place] [address]FYCZ T3on 58-97-4778Htga T3 [Mass/Vol]2.89 pg/mLNormal2.50-3.90 [facility]huja Medical CenterComment on above:Performed By: #### CBCA, THYR, 3050-0 #### [facility] ([id number]) [address], [address] [place], [place] [address]ELUOMSU PROFILEon 41-41-4342Jelf T4 [Mass/Vol]1.02 ng/dLNormal 0.61-1.60ProAdventhealth Central TexasComment on above:Performed By: #### CBCA, THYR, 305-0 #### [facility] ([id number]) [address] [facility], [address] [place], [place] [address]WGD3.50 uIU/mLNormal0.49-4.67ProAdventhealth Central TexasComment on above:Performed By: #### CBCA, THYR, 305-0 #### [facility] ([id number]) [address] [facility] [place], [place] [address]Vspsoc Visiton 34-16-8522Nzdvah-up [id number] Leanna Nguyễn 1940 [facility] Provider Department Center 05/30/2024 AYSE VIVAR KADEEM Benitez Family History Problem Relation Age of Onset Coronary artery disease Brother Heart attack Brother Heart failure Brother Other Brother Family Status - Relation Status Age at Brother Level of Service:64337 [place] OFFICE/OUTPATIENT ESTABLISHED [facility] 30 [facility] CenterOffice Visiton 99-14-8214Yovabg-up visit [id number] Leanna Nguyễn 1940 [facility] Provider Department Center 06/24/2023 AYSE VIVAR KADEEM Benitez Family History Problem Relation Age of Onset Coronary artery disease Brother Heart attack Brother Heart failure Brother Other Brother Family Status - Relation Status Age at Brother Level of Service:69853 NC OFFICE/OUTPATIENT ESTABLISHED LOW [facility] 20 [facility] Medical CenterCNOVon [id number] Visit ([facility]) LEANNA NGUYỄN ([id number]) 1940 M Date Time Provider Department 03/23/23 2:00 PM JODI BANERJEE During your visit today, we recorded the following information about you: Pulse Blood pressure 51/minute 151/68 Jodi Banerjee, DO 03/23/2023 2:41 PM Signed [facility] Follow-up visit March 23, 2023 HPI: Overall [...] encounter he has moved and low lives [facility]. He states he does not [...] mainly his brother. He has seen by document review attorney in 01/2023 with suggestion that he get [...] Coronary atherosclerosis of unspecified type of vessel, ak chin or graft 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 Dyslipidemia Hypertension Hypertension Hypothyroid Lumbar disc disease Unspecified hypothyroidism Hypothyroidism PAST SURGICAL HISTORY Procedure Laterality Date PAST SURGICAL HISTORY OF CABG times 6 left internal thoracic artery to the fho-an-wvtptd left anterior descending artery, reverse saphenous vein [...] tablet by mouth onc (more content not included)...NormalUniversity Hospitals Geneva Medical CenterPNon [id number] (NEUAV4) LEANNA NGUYỄN ([id number]) 1940 M Date Time Provider Department 03/23/23 [...] advised via voice message to send a [employer] msg if he had any further question. Terri Garcia Associate Dentist Allergies As of Date: 03/23/2023 Noted Allergy [...] testing [Z01.818] 05/27/2011 Coronary artery disease involving ak chin heart *05/27/2011 Post-operative pain [G89.18] 05/28/2011 Stress hyperglycemia [R73.9] 05/28/2011 06/01/2011 Mechanically assisted ventilation [Z99.11] 05/28/2011 05/29/2011 Hypotension [I95.9] 05/28/2011 05/30/2011 Hypothyroid [E03.9] 05/28/2011 Hyperlipidemia [E78.5] 05/28/2011 SUMMARY [V999.95] 05/30/2011 Hypertension [I10] 05/30/2011 S/P CABG (coronary artery bypass graft), PARRA t*02/20/2020 Encounter Status:Closed by TERRI GARCIA on 03/23/23[facility] CHEST WO CONon [id number] CHEST WO CONEXAMINATION: CT CHEST WO CON [...] Electronically authenticated by: LEATHA GAVIRIA Date: 2022-10-27 10:00[facility], AvonLIPID PROFILEon 48-34-4097SLAD-HDL RATIO NORMSEE [facility] HospitalComhar[facility] on above:Result Comment: 3.3 - 4.4 LOW RISK 4.4 - 7.1 AVERAGE RISK 7.1 - 11.0 MODERATE RISK >11.0 HIGH RISKPerformed By: #### LIPID, CMP ####[facility] [address] [place] [address]Dr. Yilan ChangCholesterol [Mass/Vol]149 mg/dLNormal<=200[facility] Comment on above:Performed By: #### LIPID, CMP ####[facility] [address] [place] [address]Dr. Yilan ChangCholesterol in HDL [Mass/Vol]83 mg/dLCritically jrst52-60Dlu [facility] HospitalComment on above:Performed By: #### LIPID, CMP ####[facility] [address] [place], [place] [address]Dr. Yilan ChangCholesterol in LDL [Mass/Vol]58.6 mg/dLSelect Medical Cleveland Clinic Rehabilitation Hospital, AvonComment on above:Performed By: #### LIPID, CMP ####[facility] [address] [place] [address]Dr. Yilan ChangCholesterol.total/Cholesterol in HDL [Mass ratio]1.8 {ratio}NormalMercy Health West HospitalComment on above:Performed By: #### LIPID, CMP ####[facility] [address] [place] [address]Dr. Yilan ChangHDL NORMAL> or = 60 mg/dl - LOW CARDIOVASCULAR RISK <40 mg/dl - HIGH CARDIOVASCULAR RISKSelect [facility], AvonComharbor beach community hospital on above:Performed By: #### LIPID, CMP ####[facility] [address] [place] [address]Dr. Yilan ChangLDL CALC NORMALSEE [facility] HospitalComment on above: Result Comment: <100 mg/dl OPTIMAL 100 - 129 mg/dl NEAR OR ABOVE OPTIMAL 130 - 159 mg/dl BORDERLINE HIGH 160 - 189 mg/dl HIGH >190 mg/dl VERY HIGHPerformed By: #### LIPID, CMP ####[facility] [address] [place] [address]Dr. Yilan ChangTriglyceride [Mass/Vol]37 mg/dLNormal<=150The [facility] HospitalComment on above:Performed By: #### LIPID, CMP ####[facility] [address] [place] [address]Dr. Yilan ChangVLDL CALC7.4 mg/dLNormalThe [facility] HospitalComment on above:Performed By: #### LIPID, CMP ####[facility] [address] [place], [place] [address]Dr. Yilan ChangPROF 14(COMP METB)on 84-05-0805Dwvqnyf [Mass/Vol]3.8 g/dLNormal 3.4-5.0The [facility] HospitalComment on above:Performed By: #### LIPID, CMP ####[facility] Swfpfolizc[address] [place], [place] [address]Dr. Yilan ChangAlbumin/Globulin [Mass ratio]1.0 {ratio}NormalThe [facility] Comment on above:Performed By: #### LIPID, CMP ####[facility] [address] [place] [address]Dr. Yilan ChangALP [Catalytic activity/Vol]98 U/PNlpiar51-411Gyt [facility] HospitalComment on above:Performed By: #### LIPID, CMP ####[facility] [address] [place] [address]Dr. Yilan ChangALT [Catalytic activity/Vol]25 U/L Bayxqz16-53Pat [facility] HospitalComment on above:Performed By: #### LIPID, CMP ####[facility] [address]jxtmmr[address] [place] [address]Dr. Yilan ChangAnion gap [Moles/Vol]15.5 mmol/LNormalThe [facility] HospitalComment on above:Performed By: #### LIPID, CMP ####[facility] [address] [place] [address]Dr. Yilan ChangAST [Catalytic activity/Vol]21 U/L Ynhmtw63-08Vdb [facility] HospitalComment on above:Performed By: #### LIPID, CMP ####[facility] [address] [place] [address]Dr. Yilan ChangBilirubin [Mass/Vol]0.5 mg/dLNormal0.2-1.0The [facility] Comment on above:Performed By: #### LIPID, CMP ####[facility] [address] [place] [address]Dr. Yilan ChangCalcium [Mass/Vol]9.5 mg/dLNormal8.5-10.1The [facility] HospitalComment on above:Performed By: #### LIPID, CMP ####[facility] [address] [place], [place] [address]Dr. Yilan ChangChloride [Moles/Vol]107 mmol/LNormal 98-107The [facility] HospitalComment on above:Performed By: #### LIPID, CMP ####[facility] [address]ybqg[address] [place], [place] [address]Dr. Yilan ChangCO2 [Moles/Vol]23.0 mmol/GUifnsn54.0-32.0The [facility] HospitalComment on above:Performed By: #### LIPID, CMP ####[facility] [address]kwlriyxb[address] [place], [place] [address]Dr. Yilan ChangCreatinine [Mass/Vol]1.75 mg/dLCritically high0.70-1.30The [facility] HospitalComment on above:Performed By: #### LIPID, CMP ####[facility] Hoxglgbwpe[address] [place], [place] [address]Dr. Yilan ChangEGFR-AF JRZHMMIP81 mL/min/1.23j2Drqcmyqbnb low>=60The [facility] HospitalComment on above:Performed By: #### LIPID, CMP ####[facility] [address]feodaotm[address] [place], [place] [address]Dr. Yilan ChangEGFR- NON AF APYJEOGA81 mL/min/1.17p5Rjxcrkuazc low>=60The [facility] HospitalComment on above:Performed By: #### LIPID, CMP ####[facility] [address] [place] [address]Dr. Yilan ChangGlobulin (S) [Mass/Vol]3.7 g/dL NormalThe [facility] HospitalComment on above:Performed By: #### LIPID, CMP ####[facility] Qifoyhryue[address] [place], [place] [address]Dr. Yilan ChangGlucose [Mass/Vol]83 mg/xHTddhfw97-694Smq [facility] HospitalComment on above:Performed By: #### LIPID, CMP ####[facility] Tbdizisolt[address] [place], [place] [address]Dr. Yilan ChangPotassium [Moles/Vol]4.5 mmol/L Normal3.5-5.1The [facility] HospitalComment on above:Performed By: #### LIPID, CMP ####[facility] Bplkqavxqn[address] [place], [place] [address]Dr. Yilan ChangProtein [Mass/Vol]7.5 g/dLNormal6.4-8.2The [facility] HospitalComment on above:Performed By: #### LIPID, CMP ####[facility] M[address]ctrwgmg[address] [place], [place] [address]Dr. Yilan ChangSodium [Moles/Vol]141 mmol/L Fplqct041-240Ufk [facility] HospitalComment on above:Performed By: #### LIPID, CMP ####[facility] [address]ecdcf[address] [place], [place] [address]Dr. Yilan ChangUrea nitrogen [Mass/Vol]46.0 mg/dLCritically high7.0-18.0The [facility] HospitalComment on above:Performed By: #### LIPID, CMP ####[facility] [address]rcwylw[address] [place], [place] [address]Dr. Yilan ChangUrea nitrogen/Creatinine [Mass ratio]26.3 mg/mgNormalThe [facility] HospitalComment on above:Performed By: #### LIPID, CMP ####[facility] [address]vbpqkf[address] [place], [place] [address]Dr. Yilan Chang25(OH)D3 SerPl-mCncon 08-27-2022 25-hydroxyvitamin D3 [Mass/Vol]28.6 ng/mLLow31.0-80.0Avon HospitalComment on above:Order Comment: Specimen Type: BLOOD SPECIMEN Order[facility] Facility: [facility] Address: [address] [place] [id number] Comment: Classification of 25 [place] Vitamin D status: Deficiency/Insufficiency: < or = 30 ng/ml. Sufficiency/Optimal Levels: 31-80 ng/mL Toxicity: > 100 ng/mL. Test performed by chemiluminescent immunoassay.Performed By: #### 1989-3 #### [facility] CLIA [id number] [address] [facility] [id number] [place], [place] [address] [facility] MEDICAL CENTERCNOVon 35-79-3693CXPZKxbuqs Visit (NEUAV4) LEANNA NGUYỄN Torey ([id number]) 1940 M Date Time Provider Department 08/27/22 1:00 PM JODI BANERJEEAV4 During your visit today, we recorded the following information about you: Pulse Blood pressure 69/minute 156/70 Jodi Banerjee DO 08/27/2022 2:35 PM Addendum [facility] [place] New Patient Consultation August 27, 2022 HPI: [...] 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 [...] Coronary atherosclerosis of unspecified type of vessel, ak chin or graft 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 Dyslipidemia Hypertension Hypertension Hypothyroid Lumbar disc disease Unspecified hypothyroidism Hypothyroidism PAST SURGICAL HISTORY Procedure Laterality Date PAST SURGICAL HISTORY OF CABG times 6 left internal thoracic artery to the buc-iq-ywrdll left anterior descending artery, reverse saphenous vein [...] taking: Reported on 08/07 (more content not included)...[facility] HospitalRehu hu kam memorial hospitaln and Treponema pallidum IgG and IgM [Interp]on 08-27-2022 SYPHILIS INTERPRETATIONCannot exclude recent Treponemal infection if specimen collected within 7-10 days after appearance of suspect lesions or 2-3 weeks after an exposure. Clinical correlation is required.Mary Breckinridge HospitalComment on above:Order Comment: Specimen Type: BLOOD SPECIMEN [facility] Address: [address] [place] [address]Xtgkmhacr By: #### 14457-4 #### [facility] CLIA [id number] [address] [facility] [place] [address] [place]. pallidum IgG+IgM IA Ql (S)Non-ReactiveNormalNonreactiveKenton HospitalComment on above:Order Comment: Specimen Type: BLOOD SPECIMEN [facility]ing Facility[facility] Address: [address] [place], [place] [address]Performed By: #### 41175-0 #### [facility] CLIA [id number] [address] [facility] [id number] [place], [place] [address] 07-11-2022 Creatinine [Mass/Vol]2.09 mg/dLCritically high0.70-1.30The [facility] Comment on above:Performed By: #### CREA #### [facility] [address] [place] [address] Dr. Aissatou MaynardGFR-AF BUKIHUIU87 mL/min/1.23p7Wyhgcxrumq low>=60The [facility] HospitalComment on above:Performed By: #### CREA #### [facility] [address] [place] [address] Dr. Aissatou MaynardGFR-NON AF EJRGJZSD63 mL/min/1.87d9Vnscbfiucq low>=60The [facility] HospitalComment on above:Performed By: #### CREA #### [facility] [address] [place] [address] Dr. Aissatou VásquezMRI BRAIN WO CONon 90-51-9730CWZ BRAIN WO CONEXAMINATION: MRI BRAIN WO CON, [...] Electronically authenticated by: LEATHA TAYLORLEONARD Date: 2022-07-11 15:11NoOhio Valley Surgical HospitalCULTURE BLOODon 68-40-5379Lrfxryqezcg examination of blood, cultureCulture Observations: Pediatric bottle positive; Called BCID: Enterobacterales to Linda Flores RN Isolate 1 Pantoea agglomerans Growth of ORGANISM 1 [employer]oe[employer] agglomerans ANTIBIOTIC M.I.C RX STATUS Amoxicillin/Clavulanic Acid S P Cefepime S P Ceftriaxone S P Cefuroxime I P Ciprofloxacin S P Gentamicin S P Levofloxacin S P Meropenem S P Tetracycline S P Tobramycin S PNormalThe [facility] HospitalComment on above:Performed By: #### BLDCX2 ####[facility] [address] [place] [address]Dr. Aissatou Campbell AUTO DIFFon 25-49-6810XTWL #0.0 103/ulNormal0.0-0.1The [facility] HospitalComment on above:Performed By: #### LIVER, BMP, HSTROPN #### [facility] [address] [address] [address] Aissatou VásquezBasophils/100 WBC (Bld)0.3 %Normal0.2-2.0The [facility] Comment on above:Performed By: #### LIVER, BMP, HSTROPN #### [facility] [address] [address] [address] Aissatou Bragg #0.0 103/ulNormal0.0-0.7The [facility] HospitalComment on above: Performed By: #### LIVER BMP, HSTROPN #### [facility] [address] [address] [address] Reyez ChangEosinophils/100 WBC (Bld)0.6 %Critically low0.9-7.0The [facility] HospitalComment on above:Performed By: #### LIVER, BMP, HSTROPN #### [facility] [address] [place] [address] Dr. Aissatou Maynardrythrocyte distribution width (RBC) [Ratio]13.7 %Efgonf66.0-15.0 The [facility]an Hospitalment on above:Performed By: #### LIVER, BMP, HSTROPN #### [facility] [address] [place] [address] Dr. Aissatou VásquezHematocrit (Bld) [Volume fraction]34.2 %Critically low42.0-54.0 The [facility] HospitalComment on above:Performed By: #### LIVER, BMP, HSTROPN #### [facility] [address] [place] [address] Dr. Aissatou VásquezHemoglobin (Bld) [Mass/Vol]10.7 g/dLCritically low14.0-18.0The [facility] Hospitalment on above:Performed By: #### LIVER, BMP, HSTROPN #### [facility] [address] [place] [address] Dr. Aissatou Brooks #0.02 10e3/ulNormal0.00-0.03The [facility] on above:Performed By: #### LIVER, BMP, HSTROPN #### [facility] [address] [place] [address] Dr. Aissatou Brooks %0.3 %Normal0.0-0.5The [facility] HospitalComharbor beach community hospital on above: Performed By: #### LIVER, BMP, HSTROPN #### [facility] [address] [place] [address] Dr. Aissatou Gonzalez #1.7 103/ulNormal1.2-3.8The [facility] HospitalComment on above:Performed By: #### LIVER, BMP, HSTROPN #### [facility] [address] [place] [address] Dr. Aissatou Millermphocytes/100 WBC (Bld)25.6 %Ssitzy97.5-60.0The [facility] HospitalComment on above:Performed By: #### LIVER, BMP, HSTROPN #### [facility] [address] [place] [address] Dr. Aissatou Penaloza DIFF REQNONormalThe [facility] HospitalComment on above: Performed By: #### LIVER, BMP, HSTROPN #### [facility] [address] [place] [address] Dr. Aissatou Wilson (RBC) [Entitic mass]29.6 nxVjbuog42.9-34.0The [facility] HospitalComment on above:Performed By: #### LIVER, BMP, HSTROPN #### [facility] [address] [place] [address] Dr. Aissatou VásquezDOCTORS' [facility] (RBC) [Mass/Vol]31.3 g/lZLodzec82.9-35.2The [facility] HospitalComment on above:Performed By: #### LIVER, BMP, HSTROPN #### [facility] [address] [place] [address] Dr. Aissatou Wilson (RBC) [Entitic vol]94.5 fLCritically high80.0-94.0The [facility] HospitalComment on above:Performed By: #### LIVER, BMP, HSTROPN #### [facility] [address] [place] [address] Dr. Aissatou Olivo #0.7 103/ulNormal0.3-0.8The [facility] HospitalComment on above:Performed By: #### LIVER, BMP, HSTROPN #### [facility] [address] [place] [address] Dr. Aissatou Ibrahimocytes/100 WBC (Bld)11.2 %Normal1.7-12.0The [facility] Comment on above:Performed By: #### LIVER, BMP, HSTROPN #### [facility] [address] [place] [address] Dr. Aissatou Donaldson #4.0 103/ulNormal1.4-6.5The [facility] HospitalComment on above:Performed By: #### LIVER, BMP, HSTROPN #### [facility] [address] [place] [address] Dr. Aissatou Robbinsutrophils/100 WBC (Bld)62.0 %Pdpshf20.0-75.0The [facility] on above:Performed By: #### LIVER, BMP, HSTROPN #### [facility] [address] [place] [address] Dr. Aissatou Saenzlet mean volume (Bld) [Entitic vol]10.4 fLNormal9.5-13.5The [facility] HospitalComment on above:Performed By: #### LIVER, BMP, HSTROPN #### [facility] [address] [place] [address] Dr. Aissatou VásquezPLT134 103/ulCritically amt727-823Tbs [facility] HospitalComment on above:Performed By: #### LIVER, BMP, HSTROPN #### [facility] [address] [place] [address] Dr. Aissatou VásquezRBC3.62 106/ulCritically low4.70-6.10The [facility] on above:Performed By: #### LIVER, BMP, HSTROPN #### [facility] [address] [place] [address] Dr. Aissatou VásquezWBC6.5 103/ulNormal4.0-11.0The [facility] on above: Performed By: #### LIVER, BMP, HSTROPN #### [facility] [address] [place] [address] Dr. Aissatou Segura 77-33-5358HH [Catalytic activity/Vol]149 U/SAizjam21-506Fck [facility] on above:Performed By: #### LIVER, BMP, HSTROPN #### [facility] [address] [place] [address] Dr. Aissatou VásquezMAGNESIUMbailey 22-14-4641Rkqlvwvod [Mass/Vol]1.7 mg/dLCritically low 1.8-2.4The [facility] Hospitalment on above:Performed By: #### LIVER, BMP, HSTROPN #### [facility] [address] [place] [address] Dr. Aissatou AmadoUSon 36-21-7053Rbsrluhac [Mass/Vol]3.6 mg/dLNormal2.6-4.7 The [facility] HospitalComment on above:Performed By: #### LIVER, BMP, HSTROPN #### [facility] [address] [address] [address] Aissatou VásquezPROF 14(COMP METB)on 13-59-9559Kznruwy [Mass/Vol]2.8 g/dL Critically low3.4-5.0The [facility] HospitalComment on above:Performed By: #### LIVER, BMP, HSTROPN #### [facility] [address] [place] [address] Dr. Aissatou VásquezAlbumin/Globulin [Mass ratio]0.9 {ratio}NormalThe [facility] HospitalComment on above:Performed By: #### LIVER, BMP, HSTROPN #### [facility] [address] [place] [address] Dr. Aissatou Massey [Catalytic activity/Vol]86 U/NJjzxum08-136Pmy [facility] HospitalComment on above:Performed By: #### LIVER, BMP, HSTROPN #### [facility] [address] [place] [address] Dr. Aissatou Borges [Catalytic activity/Vol]50 U/WYaaydc68-91Isp [facility] HospitalComment on above:Performed By: #### LIVER, BMP, HSTROPN #### [facility] [address] [place] [address] Dr. Aissatou Vasquez gap [Moles/Vol]11.6 mmol/LNormalThe [facility] Comment on above:Performed By: #### LIVER, BMP, HSTROPN #### [facility] [address] [place] [address] Dr. Aissatou Lucio [Catalytic activity/Vol]41 U/LCritically vvih01-38Kzx Lutheran HospitalComment on above:Performed By: #### LIVER, BMP, HSTROPN #### [facility] [address] [place] [address] Dr. Aissatou VásquezBilirubin [Mass/Vol]0.4 mg/dLNormal0.2-1.0[facility] Comment on above:Performed By: #### LIVER, BMP, HSTROPN #### [facility] [address] [place] [address] Dr. Aissatou VásquezCalcium [Mass/Vol]8.7 mg/dLNormal8.5-10.1[facility] Comment on above:Performed By: #### LIVER, BMP, HSTROPN #### [facility] [address] [place] [address] Dr. Aissatou VásquezChloride [Moles/Vol]106 mmol/OYmgzkb24-803Gux [facility] Comment on above:Performed By: #### LIVER, BMP, HSTROPN #### [facility] [address] [place] [address] Dr. Aissatou VásquezCO2 [Moles/Vol]27.0 mmol/AFjleyg57.0-32.0The [facility] Comment on above:Performed By: #### LIVER, BMP, HSTROPN #### [facility] [address] [place] [address] Dr. Aissatou VásquezCreatinine [Mass/Vol]1.99 mg/dLCritically high0.70-1.30The Luther[facility] HospitalComment on above:Performed By: #### LIVER, BMP, HSTROPN #### [facility] [address] [place] [address] Dr. Reyez ChangEGFR-AF DXDDMYNZ00 mL/min/1.23h6Rrqkspyvqk low>=60The Lutheran HospitalComment on above:Performed By: #### LIVER, BMP, HSTROPN #### [facility] [address] [place] [address] Dr. Reyez ChangEGFR-NON AF HTHSWOCG56 mL/min/1.98s8Qemkauqcyp low>=60The [facility] HospitalComment on above:Performed By: #### LIVER, BMP, HSTROPN #### [facility] [address] [address] [address] Aissatou VásquezGlobulin (S) [Mass/Vol]3.1 g/dLNoOhio Valley Surgical HospitalComment on above:Performed By: #### LIVER, BMP, HSTROPN #### [facility] [address] [address] [address] Aissatou VásquezGlucose [Mass/Vol]93 mg/nTCqxpda07-951Xym [facility] Comment on above:Performed By: #### LIVER, BMP, HSTROPN #### [facility] [address] [address] [address] Aissatou VásquezPotassium [Moles/Vol]4.6 mmol/LNormal3.5-5.1[facility] Comment on above:Performed By: #### LIVER, BMP, HSTROPN #### [facility] [address] [place] [address] Dr. Aissatou VásquezProtein [Mass/Vol]5.9 g/dLCritically low6.4-8.2[facility] HospitalComment on above:Performed By: #### LIVER, BMP, HSTROPN #### [facility] [address] [place] [address] Dr. Aissatou VásquezSodium [Moles/Vol]140 mmol/MDmwjfj873-362Spm [facility] Comment on above:Performed By: #### LIVER, BMP, HSTROPN #### [facility] [address] [place] [address] Dr. Aissatou VásquezUrea nitrogen [Mass/Vol]50.0 mg/dLCritically high7.0-18.0The Luther[facility] HospitalComment on above:Performed By: #### LIVER, BMP, HSTROPN #### [facility] [address] [place] [address] Dr. Aissatou Gregorio nitrogen/Creatinine [Mass ratio]25.1 mg/mgNoOhio Valley Surgical HospitalComment on above:Performed By: #### LIVER, BMP, HSTROPN #### [facility] [address] [place] [address] Dr. Aissatou SaldañaIMEon 41-79-7987OBI Coag (PPP) [Relative time]1.05 {INR} NormalMercy Health West HospitalComment on above:Performed By: #### CREA #### [facility] [address] [place] [address] Dr. Aissatou Rodríguez GUIDELINESSEE BELOWSelect Medical Cleveland Clinic Rehabilitation Hospital, AvonComment on above:Result Comment: DESIRED INR: 2.0 - 3.0 CONDITIONS NOT LISTED BELOW 2.5 - 3.5 FOR PROSTHETIC HEART VALVE REPLACEMENT 2.5 - 3.5 RECURRENT THROMBOSIS Performed By: #### CREA #### [facility] [address] [place] [address] Dr. Aissatou VásquezPT Coag (PPP) [Time]11.3 sNormal9.0-11.6ThThe [facility] Comment on above:Performed By: #### CREA #### [facility] [address] [place] [address] Dr. Aissatou Campbell AUTO DIFFon [id number] #0.0 103/ulNormal0.0-0.1[facility] HospitalComment on above:Performed By: #### LIVER, BMP, HSTROPN #### [facility] [address] [place] [address] Dr. Aissatou VásquezBasophils/100 WBC (Bld)0.3 %Normal0.2-2.0[facility] Comment on above:Performed By: #### LIVER, BMP, HSTROPN #### [facility] [address] [place] [address] Dr. Aissatou Bragg #0.0 103/ulNormal0.0-0.7The Luther[facility] HospitalComment on above: Performed By: #### LIVER, BMP, HSTROPN #### [facility] [address] [place] [address] Dr. Aissatou Maynardosinophils/100 WBC (Bld)0.3 %Critically low0.9-7.0The Luther[facility] HospitalComment on above:Performed By: #### LIVER, BMP, HSTROPN #### [facility] [address] [place] [address] Dr. Aissatou Maynardrythrocyte distribution width (RBC) [Ratio]13.8 %Zpzquo56.0-15.0 The [facility] HospitalComharbor beach community hospital on above:Performed By: #### LIVER, BMP, HSTROPN #### [facility] [address] [place] [address] Dr. Aissatou VásquezHematocrit (Bld) [Volume fraction]31.7 %Critically low42.0-54.0 The Luther[facility] HospitalComment on above:Performed By: #### LIVER, BMP, HSTROPN #### [facility] [address] [place] [address] Dr. Aissatou VásquezHemoglobin (Bld) [Mass/Vol]10.2 g/dLCritically low14.0-18.0The Lutheran HospitalComment on above:Performed By: #### LIVER, BMP, HSTROPN #### [facility] [address] [place] [address] Dr. Aissatou Brooks #0.02 10e3/ulNormal0.00-0.03The [facility] on above:Performed By: #### LIVER, BMP, HSTROPN #### [facility] [address] [place] [address] Dr. Aissatou Brooks %0.3 %Normal0.0-0.5The [facility] on above: Performed By: #### LIVER, BMP, HSTROPN #### [facility] [address] [place] [address] Dr. Aissatou Gonzalez #1.5 103/ulNormal1.2-3.8The Lutheran HospitalComment on above:Performed By: #### LIVER, BMP, HSTROPN #### [facility] [address] [place] [address] Dr. Aissatou Millermphocytes/100 WBC (Bld)20.3 %Critically low20.5-60.0The Lutheran Hospitalment on above:Performed By: #### LIVER, BMP, HSTROPN #### [facility] [address] [place] [address] Dr. Aissatou DickensUAL DIFF REQNONormalThe Lutheran HospitalComment on above: Performed By: #### LIVER, BMP, HSTROPN #### [facility] [address] [place] [address] Dr. Aissatou Wilson (RBC) [Entitic mass]30.3 joEkmqoq96.9-34.0The [facility] HospitalComment on above:Performed By: #### LIVER, BMP, HSTROPN #### [facility] [address] [place] [address] Dr. [facility]ou VásquezDOCTORS' [facility] (RBC) [Mass/Vol]32.2 g/eDLxsjig10.9-35.2The [facility] HospitalComment on above:Performed By: #### LIVER, BMP, HSTROPN #### [facility] [address] [place] [address] Dr. Aissatou Wilson (RBC) [Entitic vol]94.1 fLCritically high80.0-94.0The Luther[facility] HospitalComment on above:Performed By: #### LIVER, BMP, HSTROPN #### [facility] [address] [place] [address] Dr. Aissatou Olivo #0.7 103/ulNormal0.3-0.8The Luther[facility] HospitalComment on above:Performed By: #### LIVER, BMP, HSTROPN #### [facility] [address] [place] [address] Dr. Aissatou Ibrahimocytes/100 WBC (Bld)9.9 %Normal1.7-12.0The [facility] Comment on above:Performed By: #### LIVER, BMP, HSTROPN #### [facility] [address] [place] [address] Dr. Aissatou Donaldson #4.9 103/ulNormal1.4-6.5The Luther[facility] HospitalComment on above:Performed By: #### LIVER, BMP, HSTROPN #### [facility] [address] [place], [place] [id number] Dr. Aissatou Robbinsutrophils/100 WBC (Bld)68.9 %Nsnirq64.0-75.0The [facility] Hospitalment on above:Performed By: #### LIVER, BMP, HSTROPN #### [facility] [address] [place] [address] Dr. Aissatou Saenzlet mean volume (Bld) [Entitic vol]10.7 fLNormal9.5-13.5The [facility] HospitalComment on above:Performed By: #### LIVER, BMP, HSTROPN #### [facility] [address] [place] [address] Dr. Aissatou VásquezPLT141 103/ulCritically ozw566-008Vtf [facility] on above:Performed By: #### LIVER, BMP, HSTROPN #### [facility] [address] [place] [address] Dr. Aissatou VásquezRBC3.37 106/ulCritically low4.70-6.10The [facility] HospitalComharbor beach community hospital on above:Performed By: #### LIVER, BMP, HSTROPN #### [facility] [address] [place] [address] Dr. Aissatou VásquezWBC7.1 103/ulNormal4.0-11.0The [facility] on above: Performed By: #### LIVER, BMP, HSTROPN #### [facility] [address] [place] [address] Dr. Aissatou Segura 47-99-6643NU [Catalytic activity/Vol]331 U/LCritically high 39-308The [facility] on above:Performed By: #### LIVER, BMP, HSTROPN #### [facility] [address] [place] [address] Dr. Aissatou VásquezCT ABD/PELVIS WO CONon 88-52-7930JH ABD/PELVIS WO CONEXAMINATION: CT ABD/PELVIS WO CON, [...] Electronically authenticated by: STEPHEN ROUSE Date: 2022-07-03 11:06NormPremier HealthCULTURE BLOODon 96-09-2079Gbxzhdyaxtm examination of blood, cultureCulture Observations: NO GROWTH AT 5 DAYS.NormalMercy Health West HospitalComment on above:Performed By: #### BLDCX2 ####[facility] [address] [address]Dr. Aissatou VásquezMicroscopic examination of blood, cultureCulture Observations: NO GROWTH AT 5 DAYS.NormalMercy Health West HospitalComment on above:Performed By: #### BLDCX1 ####[facility] [address] [id number]. Aissatou LaureanoGNESIUMon 99-94-9343Fjkwiabjc [Mass/Vol]1.8 mg/dLNormal 1.8-2.4The [facility] HospitalComment on above:Performed By: #### LIVER, BMP, HSTROPN #### [facility] [address] [address] [address] Aissatou VásquezPHOSPHORUSon 61-47-9264Uyvwfiiak [Mass/Vol]4.0 mg/dLNormal2.6-4.7 The [facility] HospitalComment on above:Performed By: #### LIVER, BMP, HSTROPN #### [facility] [address] [place] [address] Dr. Aissatou VásquezPOINT OF CARE GLUCOSEon 58-10-0914Mncemsj [Mass/Vol]77 mg/dL Hkyyby13-579Wxk Luther[facility] HospitalComment on above:Performed By: #### CREA #### [facility] [address] [place] [address] Dr. Aissatou VásquezPROF 14(COMP METB)on 20-15-7104Eyrbfbp [Mass/Vol]2.6 g/dL Critically low3.4-5.0The [facility] HospitalComment on above:Performed By: #### LIVER, BMP, HSTROPN #### [facility] [address] [place] [address] Dr. Aissatou VásquezAlbumin/Globulin [Mass ratio]0.9 {ratio}NormalThe Lutheran HospitalComment on above:Performed By: #### LIVER, BMP, HSTROPN #### [facility] [address] [place] [address] Dr. Aissatou Massey [Catalytic activity/Vol]81 U/OBgofce95-108Ebz [facility] HospitalComment on above:Performed By: #### LIVER, BMP, HSTROPN #### [facility] [address] [place] [address] Dr. Aissatou Borges [Catalytic activity/Vol]46 U/CCkbmgn60-19Rlv [facility] HospitalComment on above:Performed By: #### LIVER, BMP, HSTROPN #### [facility] [address] [place] [address] Dr. Aissatou Vasquez gap [Moles/Vol]11.9 mmol/LNormalThe [facility] on above:Performed By: #### LIVER, BMP, HSTROPN #### [facility] [address] [place] [address] Dr. Aissatou VásquezAST [Catalytic activity/Vol]45 U/LCritically chbr63-58Xig [facility] HospitalComment on above:Performed By: #### LIVER, BMP, HSTROPN #### [facility] [address] [address] [address] Aissatou VásquezBilirubin [Mass/Vol]0.2 mg/dLNormal0.2-1.0The [facility] Comment on above:Performed By: #### LIVER, BMP, HSTROPN #### [facility] [address] [place] [address] Dr. Aissatou VásquezCalcium [Mass/Vol]8.5 mg/dLNormal8.5-10.1The [facility] Comment on above:Performed By: #### LIVER, BMP, HSTROPN #### [facility] [address] [place] [address] Dr. Aissatou VásquezChloride [Moles/Vol]108 mmol/LCritically gdlz70-779Jcy [facility] HospitalComment on above:Performed By: #### LIVER, BMP, HSTROPN #### [facility] [address] [place] [address] Dr. Aissatou VásquezCO2 [Moles/Vol]25.9 mmol/BVcjzez64.0-32.0The [facility] Comment on above:Performed By: #### LIVER, BMP, HSTROPN #### [facility] [address] [place] [address] Dr. Aissatou VásquezCreatinine [Mass/Vol]2.34 mg/dLCritically high0.70-1.30The [facility] HospitalComment on above:Performed By: #### LIVER, BMP, HSTROPN #### [facility] [address] [place] [address] Dr. Aissatou MaynardGFR-AF PHIMPGDO39 mL/min/1.21p5Wcxmlwvteq low>=60The [facility] HospitalComment on above:Performed By: #### LIVER, BMP, HSTROPN #### [facility] [address] [place] [address] Dr. Aissatou MaynardGFR-NON AF NPNPFZAC36 mL/min/1.57l2Foakclplyr low>=60The [facility] HospitalComment on above:Performed By: #### LIVER, BMP, HSTROPN #### [facility] [address] [address] [address] Aissatou VásquezGlobulin (S) [Mass/Vol]3.0 g/dLNoOhio Valley Surgical HospitalComment on above:Performed By: #### LIVER, BMP, HSTROPN #### [facility] [address] [address] [address] Aissatou VásquezGlucose [Mass/Vol]93 mg/vAZiptgb73-136UufMercy Health West Hospital Comment on above:Performed By: #### LIVER, BMP, HSTROPN #### [facility] [address] [place] [address] Dr. Aissatou VásquezPotassium [Moles/Vol]4.8 mmol/LNormal3.5-5.1The [facility] Comment on above:Performed By: #### LIVER, BMP, HSTROPN #### [facility] [address] [address] [address] Aissatou VásquezProtein [Mass/Vol]5.6 g/dLCritically low6.4-8.2The [facility] HospitalComment on above:Performed By: #### LIVER, BMP, HSTROPN #### [facility] [address] [place] [address] Dr. Aissatou VásquezSodium [Moles/Vol]141 mmol/BRhzhng812-214Yjd [facility] Comment on above:Performed By: #### LIVER, BMP, HSTROPN #### [facility] [address] [place] [address] Dr. Aissatou VásquezUrea nitrogen [Mass/Vol]61.0 mg/dLCritically high7.0-18.0The [facility] HospitalComment on above:Performed By: #### LIVER, BMP, HSTROPN #### [facility] [address] [place] [address] Dr. Aissatou VásquezUrea nitrogen/Creatinine [Mass ratio]26.1 mg/mgNoMercy Health HospitalComment on above:Performed By: #### LIVER, BMP, HSTROPN #### [facility] [address] [address] [address] Aissatou VásquezPROTIMEon 38-55-8628CQP Coag (PPP) [Relative time]1.12 {INR} NormalThe [facility] on above:Performed By: #### CREA #### [facility] [address] [place] [address] Dr. Aissatou Rodríguez GUIDELINESSEE BELOWSelect Medical Cleveland Clinic Rehabilitation Hospital, AvonComment on above:Result Comment: DESIRED INR: 2.0 - 3.0 CONDITIONS NOT LISTED BELOW 2.5 - 3.5 FOR PROSTHETIC HEART VALVE REPLACEMENT 2.5 - 3.5 RECURRENT THROMBOSIS Performed By: #### CREA #### [facility] [address] [place] [address] Dr. Aissatou VásquezPT Coag (PPP) [Time]12.0 sCritically high9.0-11.6ThThe Jewish HospitalComment on above:Performed By: #### CREA #### [facility] [address] [place] [address] Dr. Aissatou Campbell AUTO DIFFon 53-49-9166WQYN #0.0 103/ulNormal0.0-0.1[facility] on above:Performed By: #### CBC ####[facility] [address] [place], [place] [address]Dr.Yilan VásquezBasophils/100 WBC (Bld)0.1 %Critically low0.2-2.0The [facility] HospitalComment on above: Performed By: #### CBC ####[facility] [address] [place] [address] ChangEO #0.0 103/ulNormal0.0-0.7ThBrown Memorial Hospitalment on above:Performed By: #### CBC ####[facility] [address] [place] [address] ChangEosinophils/100 WBC (Bld)0.0 %Critically low0.9-7.0The [facility] HospitalComment on above: Performed By: #### CBC ####[facility] [address] [place], [place] [address]Dr.Aissatou ChangErythrocyte distribution width (RBC) [Ratio]13.4 %Tshhgt35.0-15.0The [facility] HospitalComment on above:Performed By: #### CBC ####[facility] Xsc[address] [place], [place] [address]Dr.Aissatou ChangHematocrit (Bld) [Volume fraction]39.9 %Critically low 42.0-54.0The [facility] HospitalComment on above:Performed By: #### CBC ####[facility] [address] [place], [place] [address]Dr. Aissatou ChangHemoglobin (Bld) [Mass/Vol]12.8 g/dLCritically low14.0-18.0The [facility] HospitalComment on above:Performed By: #### CBC ####[facility] [address] [place], [place] [address]Dr.Aissatou VásquezIG #0.05 10e3/ulCritically high0.00-0.03The [facility] HospitalComment on above:Performed By: #### CBC ####[facility] Ty[address] [place], [place] [address]Dr.Aissatou ChangIG %0.4 %Normal0.0-0.5The [facility] HospitalComment on above: Performed By: #### CBC ####[facility] [address]wcs[address] [place], [place] [address]Dr.Aissatou ChangLYMPH #0.8 103/ulCritically low1.2-3.8 The [facility] HospitalComment on above:Performed By: #### CBC ####[facility] [address] [place], [place] [address]Dr.Aissatou Vásquez Lymphocytes/100 WBC (Bld)7.2 %Critically low20.5-60.0The [facility] Comment on above:Performed By: #### CBC ####[facility] [address] [place], [place] [address]Dr.Aissatou VásquezMANUAL DIFF REQNONormalThe [facility] HospitalComment on above:Performed By: #### CBC ####[facility] Hzndixktvy[address] [place], [place] [address]Dr.Aissatou VásquezH (RBC) [Entitic mass]30.0 trBjersj24.9-34.0The [facility] HospitalComment on above: Performed By: #### CBC ####[facility] [address]yltcjj[address] [place], [place] [address]Dr.Aissatou VásquezHC (RBC) [Mass/Vol]32.1 g/dLNormal 29.9-35.2The [facility] HospitalComment on above:Performed By: #### CBC ####[facility] [address] [place], [place] [address]Dr. Aissatou VásquezV (RBC) [Entitic vol]93.7 vWOjzjxt14.0-94.0The [facility] Comment on above:Performed By: #### CBC ####[facility] [address] [place], [place] [address]Dr.Aissatou VásquezMONO #0.8 103/ulNormal0.3-0.8 The [facility] HospitalComment on above:Performed By: #### CBC ####[facility] [address]inp[address] [place], [place] [address]Dr.Aissatou Vásquez Monocytes/100 WBC (Bld)6.8 %Normal1.7-12.0The [facility] HospitalComment on above: Performed By: #### CBC ####[facility] [address] [place], [place] [address]Dr.Aissatou VásquezNEUT #9.8 103/ulCritically high1.4-6.5 The [facility] HospitalComment on above:Performed By: #### CBC ####[facility] [address]rec[address]zo[address] [place], [place] [address]Dr.Aissatou Vásquez Neutrophils/100 WBC (Bld)85.5 %Critically high43.0-75.0The [facility] Comment on above:Performed By: #### CBC ####[facility] [address] [address]Dr.Aissatou VásquezPlatelet mean volume (Bld) [Entitic vol]10.8 fLNormal9.5-13.5The [facility] HospitalComment on above: Performed By: #### CBC ####[facility] [address] [address]Dr.Aissatou MnjmjUPD716 103/huBetszp761-009Gfz [facility] HospitalComment on above:Performed By: #### CBC ####[facility] [address] [address]Dr.Aissatou ChangRBC4.26 106/ul Critically low4.70-6.10The [facility] HospitalComment on above:Performed By: #### CBC ####[facility] [address] [address]Dr. Aissatou MaxisUPS58.4 103/ulCritically high4.0-11.0The [facility] HospitalComment on above:Performed By: #### CBC ####[facility] [address] [address]Dr.Aissatou VásquezCKSTEFANIEon 48-73-2760XS.MB [Mass/Vol]80.91 ng/mLCritically high<=3.60The [facility] HospitalComment on above:Performed By: #### LIVER, BMP, HSTROPN #### [facility] [address] [address] [address] Aissatou Segura 69-02-6159AD [Catalytic activity/Vol]915 U/LCritically high 39-308The [facility] HospitalComment on above:Performed By: #### LIVER, BMP, HSTROPN #### [facility] [address] [address] [address] Aissatou Schmid M/2D COMPLETEon [id number] M/2D COMPLETE Patient: LEANNA NGUYỄN Exam Date: 07/02/2022 : 1940 Gender:M Ordering : SHAIKH Delphine RODRIGUEZ . Admission #: [id number] Family : DR PIPE JEFFERS . Order #: [id number] CLICK HERE TO VIEW EXAM ECHOCARDIOGRAM REPORT [...] by: Karla Cameron M.D. on 07/08/2022 at 09:55NormPremier HealthMAGNESIUMon 48-28-4796Exyafqgao [Mass/Vol]1.9 mg/dLNormal1.8-2.4The [facility] HospitalComment on above:Performed By: #### LIVER, BMP, HSTROPN #### [facility] [address] [place], [place] [address] Dr. Aissatou VásquezMYOGLOBINon 01-20-8656NYW6754 ng/mLCritically ityf59-05XfrMercy Health West HospitalComment on above:Performed By: #### LIVER, BMP, HSTROPN #### [facility] [address] [address] [address] Aissatou VásquezPHOSPHORUSon 16-22-7273Bdsdsbehp [Mass/Vol]6.0 mg/dLCritically high2.6-4.7The [facility] HospitalComment on above:Performed By: #### LIVER, BMP, HSTROPN #### [facility] [address] [address] [address] Aissatou VásquezPOINT OF CARE GLUCOSEon 91-97-9675Psuhkcm [Mass/Vol]78 mg/dL Wafira28-370Pmc [facility] HospitalComment on above:Performed By: #### CREA #### [facility] [address] [address] [address] Aissatou VásquezGlucose [Mass/Vol]104 mg/fKFlggwl71-817GkrMercy Health West Hospital Comment on above:Performed By: #### POCGLUC ####[facility] [address] [address]Dr. Aissatou VásquezGlucose [Mass/Vol]83 mg/dL Pqlahx19-720Jzu [facility] HospitalComment on above:Performed By: #### LIVER, BMP, HSTROPN #### [facility] [address] [address] [address] Aissatou VásquezGlucose [Mass/Vol]100 mg/hULqthwb94-149AyjMercy Health West Hospital Comment on above:Performed By: #### CREA #### [facility] [address] [address] [address] Aissatou VásquezGlucose [Mass/Vol]73 mg/dLCritically xgh67-763Obx [facility] HospitalComment on above:Performed By: #### POCGLUC ####[facility] [address] [address]Dr. Aissatou VásquezPROF 14(COMP METB)on 00-70-6646Sqtyxld [Mass/Vol]3.3 g/dLCritically low3.4-5.0The [facility] HospitalComment on above:Performed By: #### LIVER, BMP, HSTROPN #### [facility] [address] [place] [address] Dr. Aissatou VásquezAlbumin/Globulin [Mass ratio]1.0 {ratio}NormalThe [facility] HospitalComment on above:Performed By: #### LIVER, BMP, HSTROPN #### [facility] [address] [place] [address] Dr. Aissatou ChappellP [Catalytic activity/Vol]114 U/DQjyfpr34-648Rce [facility] HospitalComment on above:Performed By: #### LIVER, BMP, HSTROPN #### [facility] [address] [place] [address] Dr. Aissatou ChappellT [Catalytic activity/Vol]48 U/ROflzte73-91Pwk [facility] Hospitalment on above:Performed By: #### LIVER, BMP, HSTROPN #### [facility] [address] [place] [address] Dr. Aissatou VásquezAnion gap [Moles/Vol]17.3 mmol/LNormalThe [facility] Comment on above:Performed By: #### LIVER, BMP, HSTROPN #### [facility] [address] [place] [address] Dr. Aissatou VásquezAST [Catalytic activity/Vol]68 U/LCritically dxxv12-72Yrb [facility] HospitalComharbor beach community hospital on above:Performed By: #### LIVER, BMP, HSTROPN #### [facility] [address] [place] [address] Dr. Aissatou VásquezBilirubin [Mass/Vol]0.5 mg/dLNormal0.2-1.0The [facility] Comment on above:Performed By: #### LIVER, BMP, HSTROPN #### [facility] [address] [place] [address] Dr. Aissatou VásquezCalcium [Mass/Vol]8.9 mg/dLNormal8.5-10.1The [facility] Comment on above:Performed By: #### LIVER, BMP, HSTROPN #### [facility] [address] [place] [address] Dr. Aissatou VásquezChloride [Moles/Vol]109 mmol/LCritically oejw13-786Pxn Lesli HospitalComment on above:Performed By: #### LIVER, BMP, HSTROPN #### [facility] [address] [place] [address] Dr. Aissatou VásquezCO2 [Moles/Vol]22.8 mmol/CSelopb45.0-32.0[facility] Comment on above:Performed By: #### LIVER, BMP, HSTROPN #### [facility] [address] [place] [address] Dr. Aissatou VásquezCreatinine [Mass/Vol]1.89 mg/dLCritically high0.70-1.30The Lutheran HospitalComment on above:Performed By: #### LIVER, BMP, HSTROPN #### [facility] [address] [place] [address] Dr. Aissatou MaynardGFR-AF CFMZGYET63 mL/min/1.17e1Turruvxkuy low>=60The Lutheran HospitalComment on above:Result Comment: Previously reported as: (blank) On 07/02/2022 05:50 By [id number] By: #### LIVER, BMP, HSTROPN #### [facility] [address] [place] [address] Dr. Aissatou MaynardGFR-NON AF UTGGAOUS87 mL/min/1.15h3Gzdeszysek low>=60The [facility] HospitalComment on above:Result Comment: Previously reported as: (blank) On 07/02/2022 05:50 By [id number] By: #### LIVER, BMP, HSTROPN #### [facility] [address] [place] [address] Dr. Aissatou VásquezGlobulin (S) [Mass/Vol]3.4 g/dLNormalThe [facility]an HospitalComment on above:Performed By: #### LIVER, BMP, HSTROPN #### [facility] [address] [place] [address] Dr. Aissatou áVsquezGlucose [Mass/Vol]86 mg/tXHrqkdl23-035DouMercy Health West Hospital Comment on above:Performed By: #### LIVER, BMP, HSTROPN #### [facility] [address] [place] [address] Dr. Aissatou VásquezPotassium [Moles/Vol]5.1 mmol/LNormal3.5-5.1[facility] Comment on above:Performed By: #### LIVER, BMP, HSTROPN #### [facility] [address] [place] [address] Dr. Aissatou VásquezProtein [Mass/Vol]6.7 g/dLNormal6.4-8.2[facility] Comment on above:Performed By: #### LIVER, BMP, HSTROPN #### [facility] [address] [place] [address] Dr. Aissatou VásquezSodium [Moles/Vol]144 mmol/ELklzmr902-677Nkl [facility] Comment on above:Performed By: #### LIVER, BMP, HSTROPN #### [facility] [address] [place] [address] Dr. Aissatou VásquezUrea nitrogen [Mass/Vol]55.0 mg/dLCritically high7.0-18.0Mer[facility] HospitalComment on above:Performed By: #### LIVER, BMP, HSTROPN #### [facility] [address] [place] [address] Dr. Aissatou Gregorio nitrogen/Creatinine [Mass ratio]29.1 mg/mgNoOhio Valley Surgical HospitalComment on above:Performed By: #### LIVER, BMP, HSTROPN #### [facility] [address] [place] [address] Dr. Aissatou VásquezPROTIMEon 01-55-9491LKO Coag (PPP) [Relative time]1.13 {INR} NormalMercy Health West HospitalComment on above:Performed By: #### LIVER, BMP, HSTROPN #### [facility] [address] [place] [address] Dr. Aissatou Rodríguez GUIDELINESSEE BELOWSelect Medical Cleveland Clinic Rehabilitation Hospital, AvonComment on above:Result Comment: DESIRED INR: 2.0 - 3.0 CONDITIONS NOT LISTED BELOW 2.5 - 3.5 FOR PROSTHETIC HEART VALVE REPLACEMENT 2.5 - 3.5 RECURRENT THROMBOSIS Performed By: #### LIVER, BMP, HSTROPN #### [facility] [address] [place] [address] Dr. Aissatou Hitchcockg (PPP) [Time]12.1 sCritically high9.0-11.6The [facility] on above:Performed By: #### LIVER, BMP, HSTROPN #### [facility] [address] [place] [address] Dr. Aissatou Diaz CULTURE ID PANELon 07-01-2022. baumanniiNot detectedNormal NOT DETECTEDThe [facility] on above:Performed By: #### CREA #### [facility] [address] [place] [address] Dr. Aissatou Guzmán fragilisNot detectedNormalNOT DETECTEDThe [facility] on above:Performed By: #### CREA #### [facility] [address] [place] [address] Dr. Aissatou Horner CONTROLSPASSCleveland Clinic Union HospitalComharbor beach community hospital on above: Performed By: #### CREA #### [facility] [address] [place] [address] Dr. Aissatou HornerBTHDSUAD CULTURE BOTTLE INFORMATIONSelect Medical [facility] Rehabilitation Hospital, AvonComharbor beach community hospital on above:Performed By: #### CREA #### [facility] [address] [place] [address] Dr. Aissatou HornerLtlbyBKRHSZ0PFGKUMMICYAML RESISTANCE GENESSelect Medical [facility], [place] Comment on above:Performed By: #### CREA #### [facility] [address] [place] [address] Dr. Aissatou HornerHD2SEE [facility] HospitalComharbor beach community hospital on above: Result Comment: Note: Antimicrobial resitance can occur via multiple mechanisms. A Not Detected result for the [employer] antomicrobial resistance gene assays does not indicate antimicrobial susceptibility. Subculturing is required for species identification and susceptibility testing of isolates.Performed By: #### CREA #### [facility] [address] [place] [address] Dr. Aissatou HornerNjspcONDGQT3DwgyewfhUpwwyqAne Lesli HospitalComment on above: Performed By: #### CREA #### [facility] [address] [address] [address] Aissatou HornerUcbkaRDAQRO7PtmpptvwZdmbmwJtk Bellevue HospitalComment on above: Performed By: #### CREA #### [facility] [address] [address] [address] Aissatou HornerIgvqhWFZIWX1SCPBZKwcdivRiqSelect Medical Cleveland Clinic Rehabilitation Hospital, AvonComment on above:Performed By: #### CREA #### [facility] [address] [address] [address] Aissatou Lawson Set:Set 2NormalMercy Health West HospitalComment on above: Performed By: #### CREA #### [facility] [address] [address] [address] Aissatou Lawson:PediatricSelect Medical Cleveland Clinic Rehabilitation Hospital, AvonComment on above: Performed By: #### CREA #### [facility] [address] [address] [address] Aissatou Allen. neoformans/gattiiNot detectedNormalNOT DETECTEDThe [facility] HospitalComharbor beach community hospital on above:Performed By: #### CREA #### [facility] [address] [address] [address] Aissatou Norris albicansNot detectedNormalNOT DETECTEDThe [facility] HospitalComharbor beach community hospital on above:Performed By: #### CREA #### [facility] [address] [address] [address] Aissatou Norris aurisNot detectedNormalNOT DETECTEDThe [facility] Comment on above:Performed By: #### CREA #### [facility] [address] [address] [address] Aissatou Norris glabrataNot detectedNormalNOT DETECTEDThe [facility] HospitalComment on above:Performed By: #### CREA #### [facility] [address] [address] [address] Aissatou Norris KruseiNot detectedNormalNOT DETECTEDThe [facility] Comment on above:Performed By: #### CREA #### [facility] [address] [address] [address] Aissatou Norris ParapsilosisNot detectedNormalNOT DETECTEDThe [facility] HospitalComharbor beach community hospital on above:Performed By: #### CREA #### [facility] [address] [address] [address] Aissatou Norris TropicalisNot detectedNormalNOT DETECTEDThe [facility] HospitalComment on above:Performed By: #### CREA #### [facility] [address] [address] [address] Aissatou VásquezCTX-M Resistant GeneNot detectedNormalNOT DETECTEDThe [facility] HospitalComharbor beach community hospital on above:Performed By: #### CREA #### [facility] [address] [address] [address] Aissatou Maynard. Cloacae complexNot detectedNormalNOT DETECTEDThe [facility] HospitalComharbor beach community hospital on above:Performed By: #### CREA #### [facility] [address] [address] [address] Aissatou Maynard. faecalisNot detectedNormalNOT DETECTEDThe [facility] Comment on above:Performed By: #### CREA #### [facility] [address] [address] [address] Aissatou Maynard. faeciumNot detectedNormalNOT DETECTEDThe [facility] Comment on above:Performed By: #### CREA #### [facility] [address] [address] [address] Aissatou MaynardnterobacteriaceaeDetectedCritically abnormalNOT DETECTEDThe [facility] HospitalComharbor beach community hospital on above:Performed By: #### CREA #### [facility] [address] [address] [address] Aissatou Ellischerichia coliNot detectedNormalNOT DETECTEDThe [facility] HospitalComharbor beach community hospital on above:Performed By: #### CREA #### [facility] [address] [address] [address] Aissatou King. influenzaeNot detectedNormalNOT DETECTEDThe [facility] Comment on above:Performed By: #### CREA #### [facility] [address] [address] [address] Aissatou Padilla Resistant GeneNot detectedNormalNOT DETECTEDThe [facility] HospitalComment on above:Performed By: #### CREA #### [facility] [address] [place] [address] Dr. Aissatou Peres. oxytocaNot detectedNormalNOT DETECTEDThe [facility] Comment on above:Performed By: #### CREA #### [facility] [address] [address] [address] Aissatou Peres. pneumoniaeNot detectedNormalNOT DETECTEDThe [facility] Comment on above:Performed By: #### CREA #### [facility] [address] [place] [address] Dr. Aissatou Rajput aerogenesNot detectedNormalNOT DETECTEDThe [facility] HospitalComment on above:Performed By: #### CREA #### [facility] [address] [place] [address] Dr. Aissatou AnnaC Resistant GeneNot detectedNormalNOT DETECTEDThe [facility] HospitalComment on above:Performed By: #### CREA #### [facility] [address] [place] [address] Dr. Aissatou Zeng. monocytogenesNot detectedNormalNOT DETECTEDThe [facility] HospitalComharbor beach community hospital on above:Performed By: #### CREA #### [facility] [address] [place] [address] Dr. Aissatou VásquezMcr-1 Resistant GeneNot ApplicableNormalNOT DETECTEDThe [facility] HospitalComment on above:Performed By: #### CREA #### [facility] [address] [place] [address] Dr. Aissatou Garsia/CNot ApplicableNormalNOT DETECTEDMercy Health West Hospital Comment on above:Performed By: #### CREA #### [facility] [address] [place] [address] Dr. Aissatou Garsia/C MREJNot ApplicableNormalNOT DETECTEDThe [facility] Comment on above:Performed By: #### CREA #### [facility] [address] [address] [address] Aissatou Mitchell. meningitidisNot detectedNormalNOT DETECTEDThe [facility] HospitalComment on above:Performed By: #### CREA #### [facility] [address] [address] [address] Aissatou Caban Resistant GeneNot detectedNormalNOT DETECTEDThe [facility] HospitalComment on above:Performed By: #### CREA #### [facility] [address] [address] [address] Aissatou VásquezBekenIiv-44-gvwrRpp detectedNormalNOT DETECTEDThe [facility] Comment on above:Performed By: #### CREA #### [facility] [address] [address] [address] Aissatou VásquezProteusNot detectedNormalNOT DETECTEDThe [facility] HospitalComharbor beach community hospital on above:Performed By: #### CREA #### [facility] [address] [address] [address] Aissatou Mesa. aeruginosaNot detectedNormalNOT DETECTEDThe [facility] HospitalComharbor beach community hospital on above:Performed By: #### CREA #### [facility] [address] [address] [address] Aissatou Chan. maltophiliaNot detectedNormalNOT DETECTEDThe [facility] Comment on above:Performed By: #### CREA #### [facility] [address] [address] [address] Aissatou VásquezSalmonellaNot detectedNormalNOT DETECTEDThe [facility] Comment on above:Performed By: #### CREA #### [facility] [address] [address] [address] Aissatou Singhatia marcescensNot detectedNormalNOT DETECTEDThe [facility] HospitalComment on above:Performed By: #### CREA #### [facility] [address] [address] [address] Aissatou Pollard:IVNormalThe [facility] HospitalComment on above:Performed By: #### CREA #### [facility] [address] [address] [address] Aissatou Palomo. aureusNot detectedNormalNOT DETECTEDThe [facility] Comment on above:Performed By: #### CREA #### [facility] [address] [place] [address] Dr. Aissatou Palomo. epidermidisNot detectedNormalNOT DETECTEDThe [facility] HospitalComment on above:Performed By: #### CREA #### [facility] [address] [address] [address] Aissatou Palomo. lugdunensisNot detectedNormalNOT DETECTEDThe [facility] HospitalComment on above:Performed By: #### CREA #### [facility] [address] [place] [address] Dr. Aissatou NicoleococcusNot detectedNormalNOT DETECTEDMercy Health West Hospital Comment on above:Performed By: #### CREA #### [facility] [address] [place] [address] Dr. Aissatou Hernandez. agalactiaeNot detectedNormalNOT DETECTEDThe [facility] HospitalComment on above:Performed By: #### CREA #### [facility] [address] [place] [address] Dr. Aissatou Hernandez. pneumoniaeNot detectedNormalNOT DETECTEDThe [facility] HospitalComharbor beach community hospital on above:Performed By: #### CREA #### [facility] [address] [place] [address] Dr. Aissatou Land pyogenesNot detectedNormalNOT DETECTEDThe [facility] HospitalComment on above:Performed By: #### CREA #### [facility] [address] [place] [address] Dr. Aissatou HernandeztococcusNot detectedNormalNOT DETECTEDThe [facility] Comment on above:Performed By: #### CREA #### [facility] [address] [place] [address] Dr. Aissatou Corrigan/Uri Resist. GeneNot ApplicableNormalNOT DETECTEDThe [facility] HospitalComharbor beach community hospital on above:Performed By: #### CREA #### [facility] [address] [place] [address] Dr. Aissatou Nunes Resistant GeneNot detectedNormalNOT DETECTEDMercy Health West HospitalComment on above:Performed By: #### CAMMY #### [facility] [address] [place] [address] Dr. Aissatou Campbell W MANUAL DIFFon [id number] LYMPH #NormalAdams County Regional Medical Center HospitalComment on above:Performed By: #### RIZWAN ####[facility] [address] [place], [place] [address]Dr. Yilan ChangATYPICAL LYMPH %NormalThe San Ysidro HospitalComment on above:Performed By: #### RIZWAN ####[facility] Ps[address] [place], [place] [address]Dr. Yilan ChangBAND #0.4 103/ulCritically high0.0-0.3The [facility] HospitalComment on above:Performed By: #### RIZWAN ####[facility] [address] [place], [place] [address]Dr. Yilan ChangBAND %3 %Normal0-5The [facility] Comment on above:Performed By: #### CBCRITCHIE ####[facility] [address] [place], [place] [address]Dr. Yilan ChangBASOM #0.00 103/ulNormal 0.00-0.10The [facility] HospitalComment on above:Performed By: #### CBCRITCHIE ####[facility] Cfectaz[address] [place], [place] [address]Dr. Aissatou ChangBASOM %0.0 %Critically low0.2-2.0[facility] HospitalComment on above:Performed By: #### CBCMAN ####[facility] [address] [place], [place] [address]Dr. Yilan ChangBLAST #NormalMercy Health West Hospital Comment on above:Performed By: #### CBCRITCHIE ####[facility] K[address]qbiigwp[address] [place], [place] [address]Dr. Yilan ChangBLAST %NormalAdams County Regional Medical Center HospitalComment on above:Performed By: #### CBCRITCHIE ####[facility] [address] [address]Dr. Sheylan ChangCORRECTED WBC Normal4.0-11.0The [facility] HospitalComment on above:Performed By: #### CBCMAN ####[facility] [address] [place], [place] [address]Dr. Yilan ChangEOS #0.12 103/ulNormal0.00-0.70The [facility] HospitalComment on above: Performed By: #### CBCRITCHIE ####[facility] S[address]fkinl[address] [place], [place] [address]Dr. Yilan ChangEOS%1.0 %Normal0.9-7.0The [facility] HospitalComment on above:Performed By: #### CBCRITCHIE ####[facility] Tsypezqxfj[address] [place], [place] [address]Dr. Sheylan BgsejIKH36.0 % Lchjyq67.0-54.0The [facility] HospitalComment on above:Performed By: #### CBCRITCHIE ####[facility] Tvdnjhicsi[address] [place], [place] [address]Dr. Aissatou EyrgdNXV12.6 g/qpIxisol67.0-18.0The [facility] HospitalComharbor beach community hospital on above: Performed By: #### CBCRITCHIE ####[facility] [address]ew[address]jnfap[address] [place], [place] [address]Dr. Sheylan ChangLYMPHM #0.62 103/ulCritically low 1.20-3.80The [facility] HospitalComharbor beach community hospital on above:Performed By: #### CBCRITCHIE ####[facility] Kwdixrcezm[address] [place], [place] [address]Dr. Aissatou ChangLYMPHM%5.0 %Critically low20.5-60.0The [facility] HospitalComharbor beach community hospital on above:Performed By: #### CBCMAN ####[facility] [address]tzrskx[address] [place], [place] [address]Dr. Sheylan GjfloWVE26.9 gmFxnfng38.9-34.0The [facility] HospitalComment on above:Performed By: #### CBCMAN ####[facility] Riniukarbg[address] [place], [place] [address]Dr. Aissatou VásquezMCHC31.7 g/dl Rsoltl19.9-35.2The [facility] HospitalComment on above:Performed By: #### CBCMAN ####[facility] [address] [address]Dr. Aissatou VásquezMCV94.1 fLCritically high80.0-94.0The [facility] HospitalComment on above:Performed By: #### CBCMAN ####[facility] [address] [address]Dr. Yilan ChangMETAMYELOCYTE #NormalThe [facility]ro HospitalComment on above:Performed By: #### CBCMAN ####[facility] [address] [address]Dr. Yilan ChangMETAMYELOCYTE %NormalThe [facility] HospitalComment on above:Performed By: #### CBCMAN ####[facility] Es[address]qjosoz[address] [place], [place] [address]Dr. Aissatou ChangMONOM#0.62 103/ulNormal0.30-0.80The [facility] HospitalComment on above:Performed By: #### CBCMAN ####[facility] B[address] [place], [place] [address]Dr. Yisarah ChangMONOM%5.0 %Normal1.7-12.0The [facility] HospitalComment on above:Performed By: #### CBCMAN ####[facility] [address] [address]Dr. Aissatou HtjpjIDG29.4 fL Normal9.5-13.5The [facility] HospitalComment on above:Performed By: #### CBCMAN ####[facility] [address] [place], [place] [address]Dr. Yilan ChangMYELOCYTE #NormalThe [facility] HospitalComment on above:Performed By: #### CBCMAN ####[facility] [address]cvjxx[address] [place], [place] [address]Dr. Yilan ChangMYELOCYTE %NormalThe [facility] HospitalComment on above: Performed By: #### CBCMAN ####[facility] [address] [address]Dr. Aissatou ChangNRBCNormalThThe Jewish HospitalComment on above:Performed By: #### RIZWAN ####[facility] [address]cp[address]jv[address] [place], [place] [address]Dr. Aissatou JntuhDRF290 103/zfJuubni728-628IraMercy Health West HospitalComment on above:Performed By: #### RIZWAN ####[facility] [address] [address]Dr. Aissatou VásquezRBC 4.89 106/ulNormal4.70-6.10The [facility] HospitalComment on above:Performed By: #### RIZWAN ####[facility] Smxqyybcxq[address] [place], [place] [address]Dr. Aissatou MeaikFHS73.4 %Pbnelv18.0-15.0[facility] HospitalComment on above:Performed By: #### RIZWAN ####[facility] [address]oxlycii[address] [place], [place] [address]Dr. Aissatou Bauer #10.66 103/ulCritically high 1.40-6.50The [facility] HospitalComment on above:Performed By: #### RIZWAN ####[facility] Ackokpnbim[address] [place], [place] [address]Dr. Aissatou Bauer %86.0 %Critically high43.0-75.0[facility] HospitalComment on above:Performed By: #### RIZWAN ####[facility] Yjcafwkuqn[address] [place], [place] [address]Dr. Aissatou HbphfSOR44.4 103/ulCritically high4.0-11.0 The [facility] HospitalComment on above:Performed By: #### IRZWAN ####[facility] [address]cs[address] [place], [place] [address]Dr. Aissatou VásquezCPKon [id number] [Catalytic activity/Vol]1646 U/LCritically dtji06-059ZfyMercy Health West HospitalComment on above:Performed By: #### LIVER, BMP, HSTROPN #### [facility] [address] [address] [address] Aissatou Ellison CSPINE WO CONon [id number] [facility] WO CONEXAMINATION: CT CSPINE WO CON HISTORY: [...] Electronically authenticated by: KOKO ROMANO Date: 2022-07-01 19:22[facility] STROKE HEAD WOon [id number] STROKE HEAD WONONCONTRAST CT SCAN OF THE [...] Electronically authenticated by: BERNADETTE CHIOMA Date: 2022-07-01 17:37NormPremier HealthCULTURE BLOODon 58-00-2840Awrbstsgvmz examination of blood, cultureCulture Observations: NO GROWTH AT 5 DAYS.NormalThe [facility] HospitalComment on above:Performed By: #### [id number] ####[facility] [address] [place], [place] [address]UxDr. Aissatou VásquezCovid-19 PCR ([facility])on 29-24-2628AB[facility]-CoV-2 (COVID-19) RNA HALLE+probe Ql (Unsp spec)Not detectedNormalNOT DETECTEDThe [facility] Comment on above:Result Comment: When diagnostic testing [...] for this test is supported by the [place] of Health and Human Service's declaration that [...] used).Performed By: #### LIVER, BMP, HSTROPN #### [facility] [address] [place], [place] [address] Dr. Aissatou VásquezDRUG SCREEN RAPID (URINE)on [id number]G [facility] HospitalComment on above:Performed By: #### CREA #### [facility] [address] [place] [address] Dr. Aissatou VásquezBARNegativeNormalNEGATIVEMercy Health West HospitalComment on above: Performed By: #### CREA #### [facility] [address] [place] [address] Dr. Aissatou VásquezBUPNegativeNormalNEGATIVEMercy Health West HospitalComment on above: Performed By: #### CREA #### [facility] [address] [place] [address] Dr. Aisstaou VásquezBZONegativeNormalNEGATIVEMercy Health West HospitalComment on above: Performed By: #### CREA #### [facility] [address] [place] [address] Dr. Aissatou VásquezCOCNegativermalNEGATIVEMercy Health West HospitalComment on above: Performed By: #### CREA #### [facility] [address] [place] [address] Dr. Aissatou VieiraWayne HospitalComment on above: Result Comment: AMP (Amphetamine): 500ng/mL, BAR (Barbituates): 200 ng/mL, BZO (Benzodiazepines): 150 ng/mL, BUP (Buprenorphine): 10 ng/mL, MARYJANE (Cocaine): 150 ng/mL, mAMP (Methamphetamine): 500 ng/mL, MTD (Methadone): 200 ng/mL, OPI (Opiates): 100 ng/mL, OXY (Oxycodone): 100 ng/mL, PCP (Phencyclidine): 25 ng/mL, PPX (Propoxyphene): 300 ng/mL, THC (Cannabinoids): 50 ng/mL, TCA (Trycyclic Antidepressants): 300 ng/mLPerformed By: #### CREA #### [facility] [address] [place] [address] Dr. Aissatou VásquezDRUG CUT HEADERDRUG CLASS TEST SYSTEM CUT-OFF CONCENTRATIONS ARE FOLLOWS:NormalThe [facility] HospitalComment on above:Performed By: #### CREA #### [facility] [address] [address] [address] Aissatou VásquezmAMPNegativeNormalNEGATIVEMercy Health West HospitalComment on above: Performed By: #### CREA #### [facility] [address] [address] [address] Aissatou VásquezMTDNegativeNormalNEGATIVEMercy Health West HospitalComment on above: Performed By: #### CREA #### [facility] [address] [address] [address] Aissatou VásquezOPINegativeNormalNEGATIVEMercy Health West HospitalComment on above: Performed By: #### CREA #### [facility] [address] [place] [address] Dr. Aissatou VásquezOXYNegativeNormalNEGATIVEMercy Health West HospitalComharbor beach community hospital on above: Performed By: #### CREA #### [facility] [address] [place] [address] Dr. Aissatou VásquezPCPNegativeNormalNEGATIVEMercy Health West HospitalComharbor beach community hospital on above: Performed By: #### CREA #### [facility] [address] [place] [address] Dr. Aissatou VásquezPPXNegativeNormalNEGATIVEMercy Health West HospitalComharbor beach community hospital on above: Performed By: #### CREA #### [facility] [address] [place] [address] Dr. Aissatou VásquezTCANegativeNormalNEGATIVEMercy Health West HospitalComharbor beach community hospital on above: Performed By: #### CREA #### [facility] [address] [place] [address] Dr. Aissatou VásquezTHCNegativeNormalNEGATIVEMercy Health West HospitalComharbor beach community hospital on above: Performed By: #### CREA #### [facility] [address] [place] [address] Dr. Reyez ChangEJacinta URINE PROFILEon 26-74-7059Cwjqlrboj Ql (U)NegativeNormal NEGATIVEMercy Health West HospitalComment on above:Performed By: #### CREA #### [facility] [address] [address] [address] Aissatou VásquezClarity (U)CLEARNormalCLEARMercy Health West HospitalComment on above: Performed By: #### CREA #### [facility] [address] [address] [address] Aissatou Limlor (U)YELLOWNormalYELLOWMercy Health West HospitalComment on above: Performed By: #### CREA #### [facility] [address] [address] [address] Aissatou Lamar micrscopic examination will be performed if indicated. NormalThe Lutheran HospitalComment on above:Performed By: #### CREA #### [facility] [address] [place] [address] Dr. Aissatou VásquezGlucose Ql (U)NegativeNormalNEGATIVEMercy Health West HospitalComment on above:Performed By: #### CREA #### [facility] [address] [place] [address] Dr. Aissatou VásquezHemoglobin Ql (U)MODERATEAbnormalNEGUniversity Hospitals Samaritan Medical Center Comment on above:Performed By: #### CREA #### [facility] [address] [address] [address] Aissatou VásquezKetones Ql (U)15 mg/dlAbnoalNEGUniversity Hospitals Samaritan Medical Center Comment on above:Performed By: #### CREA #### [facility] [address] [address] [address] Aissatou VásquezLEUKOCYTESNegativeNormalNEGUniversity Hospitals Samaritan Medical CenterComment on above:Performed By: #### CREA #### [facility] [address] [address] [address] Aissatou VásquezNitrite Ql (U)NegativeNormalNEGATIVEMercy Health West HospitalComment on above:Performed By: #### CREA #### [facility] [address] [address] [address] Aissatou VásquezpH (U)5.0 [pH]Normal5-9Mer[facility] Health West HospitalComment on above: Performed By: #### CREA #### [facility] [address] [place] [address] Dr. Aissatou VásquezSPEC GRAVITY1.311Nikelw1.005-<=1.025The [facility] HospitalComment on above:Performed By: #### CREA #### [facility] [address] [place] [address] Dr. Aissatou Peng PROTEINTRACENormalNEGATIVE/ TRACEThe [facility]an HospitalComment on above:Performed By: #### CREA #### [facility] [address] [place] [address] Dr. Aissatou Flores MICRO INDINDICATEDNormalThe Lutheran HospitalComment on above: Performed By: #### CREA #### [facility] [address] [place] [address] Dr. Aissatou Maldonadoinogen Qn (U)0.2 {Ilene'U}/dLNormal0.2 - 1.0The [facility] on above:Performed By: #### CREA #### [facility] [address] [place] [address] Dr. Aissatou Poe PROFILEon 00-56-0199Zasydjg [Mass/Vol]3.7 g/dLNormal3.4-5.0 The [facility] on above:Performed By: #### LIVER, BMP, HSTROPN #### [facility] [address] [place] [address] Dr. Aissatou VásquezAlbumin/Globulin [Mass ratio]0.9 {ratio}NormalThe [facility] on above:Performed By: #### LIVER, BMP, HSTROPN #### [facility] [address] [place] [address] Dr. Aissatou ChappellP [Catalytic activity/Vol]143 U/LCritically jdna39-649Hqk [facility] on above:Performed By: #### LIVER, BMP, HSTROPN #### [facility] [address] [place] [address] Dr. Aissatou Borges [Catalytic activity/Vol]56 U/LOkjgky61-50Zmr Lesli HospitalComment on above:Performed By: #### LIVER, BMP, HSTROPN #### [facility] [address] [address] [address] Aissatou VásquezAST [Catalytic activity/Vol]87 U/LCritically scen61-07Kyq [facility] HospitalComment on above:Performed By: #### LIVER, BMP, HSTROPN #### [facility] [address] [address] [address] Aissatou ReevesI, CONJUGATED0.2 mg/dLNormal0.0-0.2The [facility] Comment on above:Performed By: #### LIVER, BMP, HSTROPN #### [facility] [address] [place] [address] Dr. Aissatou Reevesirubin [Mass/Vol]0.6 mg/dLNormal0.2-1.0[facility] Comment on above:Performed By: #### LIVER, BMP, HSTROPN #### [facility] [address] [address] [address] Aissatou VásquezGlobulin (S) [Mass/Vol]3.9 g/dLNormalThe [facility] HospitalComment on above:Performed By: #### LIVER, BMP, HSTROPN #### [facility] [address] [place] [address] Dr. Aissatou VásquezProtein [Mass/Vol]7.6 g/dLNormal6.4-8.2[facility] Comment on above:Performed By: #### LIVER, BMP, HSTROPN #### [facility] [address] [place] [address] Dr. Aissatou VásquezMYOGLOBINon 88-08-0527JCB7913 ng/mLCritically tjmk44-21Lcj [facility] HospitalComment on above:Performed By: #### LIVER, BMP, HSTROPN #### [facility] [address] [place] [address] Dr. Aissatou VásquezPROF CHEM 8 (BAS METB)on 99-95-8188Oltwl gap [Moles/Vol]18.5 mmol/LNormalThe [facility] HospitalComment on above:Performed By: #### LIVER, BMP, HSTROPN #### [facility] [address] [address] [address] Aissatou VásquezCalcium [Mass/Vol]9.8 mg/dLNormal8.5-10.1[facility] Comment on above:Performed By: #### LIVER, BMP, HSTROPN #### [facility] [address] [place] [address] Dr. Aissatou VásquezChloride [Moles/Vol]104 mmol/OBzmdos57-222Gax [facility] Comment on above:Performed By: #### LIVER, BMP, HSTROPN #### [facility] [address] [place] [address] Dr. Aissatou VásquezCO2 [Moles/Vol]24.3 mmol/BGrurfb00.0-32.0[facility] Comment on above:Performed By: #### LIVER, BMP, HSTROPN #### [facility] [address] [place] [address] Dr. Aissatou VásquezCreatinine [Mass/Vol]1.74 mg/dLCritically high0.70-1.30The [facility] HospitalComment on above:Performed By: #### LIVER, BMP, HSTROPN #### [facility] [address] [place] [address] Dr. Reyez ChangEGFR-AF OWYGAGTO96 mL/min/1.78r6Bbcctfeaae low>=60The [facility] HospitalComment on above:Performed By: #### LIVER, BMP, HSTROPN #### [facility] [address] [place] [address] Dr. Reyez ChangEGFR-NON AF GVOFMGQX10 mL/min/1.94s3Wjdxgaegld low>=60The [facility] HospitalComment on above:Performed By: #### LIVER, BMP, HSTROPN #### [facility] [address] [place] [address] Dr. Aissatou VásquezGlucose [Mass/Vol]115 mg/dLCritically gzbg83-253Wxt [facility] HospitalComment on above:Performed By: #### LIVER, BMP, HSTROPN #### [facility] [address] [address] [address] Aissatou VásquezPotassium [Moles/Vol]4.8 mmol/LNormal3.5-5.1The [facility] Comment on above:Performed By: #### LIVER, BMP, HSTROPN #### [facility] [address] [address] [address] Aissatou VásquezSodium [Moles/Vol]142 mmol/LWkhtsk701-354Hhm [facility] Comment on above:Performed By: #### LIVER, BMP, HSTROPN #### [facility] [address] [address] [address] Aissatou VásquezUrea nitrogen [Mass/Vol]54.0 mg/dLCritically high7.0-18.0[facility] HospitalComment on above:Performed By: #### LIVER, BMP, HSTROPN #### [facility] [address] [address] [address] Aissatou Gregorio nitrogen/Creatinine [Mass ratio]31.0 mg/mgNormalThe [facility] HospitalComment on above:Performed By: #### LIVER, BMP, HSTROPN #### [facility] [address] [address] [address] Aissatou Peguero, HIGH SENSITIVITYon 61-52-7941GJLUZT198.3 pg/mL Critically high4.0-76.1The [facility] HospitalComment on above:Result Comment: CUT-OFF POINTS HAVE BEEN ESTABLISHED BASED ON THE FOURTH UNIVERSAL DEFINITIONS OF MYOCARDIAL INFARCTION. THE UPPER REFERENCE LIMIT (URL) OF TROPONIN, DEFINED THE 99TH PERCENTILE OF cTnI DISTRIBUTION IN A REFERENCE POPULATION, HAS BEEN CONFIRMED THE DECISION THRESHOLD FOR CO DIAGNOSIS.Performed By: #### HSTROPN ####[facility] [address] [address]. Aissatou VásquezHSTROP132.4 pg/mLCritically high4.0-76.1[facility] HospitalComment on above:Result Comment: CUT-OFF POINTS HAVE BEEN ESTABLISHED BASED ON THE FOURTH UNIVERSAL DEFINITIONS OF MYOCARDIAL INFARCTION. THE UPPER REFERENCE LIMIT (URL) OF TROPONIN, DEFINED THE 99TH PERCENTILE OF cTnI DISTRIBUTION IN A REFERENCE POPULATION, HAS BEEN CONFIRMED THE DECISION THRESHOLD FOR CO DIAGNOSIS.Performed By: #### LIVER, BMP, HSTROPN #### [facility] [address] [place] [address] Dr. Aissatou York 31-21-5853GHC4.840 uIU/mLCritically high0.358-3.740The [facility] HospitalComment on above:Performed By: #### LIVER, BMP, HSTROPN #### [facility] [address] [place] [address] Dr. Aissatou MORALESon 20-64-3181HEVYANCAWBZD SEENNormalNONE SEENMercy Health West HospitalComharbor beach community hospital on above:Performed By: #### CREA #### [facility] [address] [place] [address] Dr. Aissatou Angel identified Cx Nom (U)NOT INDICATEDNoOhio Valley Surgical HospitalComment on above:Performed By: #### CREA #### [facility] [address] [place] [address] Dr. Aissatou Herndon SEENNormalNONE SEENMercy Health West HospitalComharbor beach community hospital on above:Performed By: #### CREA #### [facility] [address] [place] [address] Dr. Aissatou Ma LM Nom (Urine sed)NONE SEENNormalNONE SEENMercy Health West HospitalComharbor beach community hospital on above:Performed By: #### CREA #### [facility] [address] [place] [address] Dr. Aissatou Keiththelial cells LM Ql (Urine sed)RARENormalNONE SEEN /RAREMercy Health West HospitalComharbor beach community hospital on above:Performed By: #### CREA #### [facility] [address] [place] [address] Dr. Aissatou SernaACEAbnormalNONE SEENMercy Health West HospitalComment on above:Performed By: #### CREA #### [facility] [address] [place] [address] Dr. Aissatou FreireOuogbQTA7-9Jonvzhfp5-8Mqc [facility] Hospitalment on above:Performed By: #### CREA #### [facility] [address] [place] [address] Dr. Aissatou VásquezWBC2-5AbnormalNONE SEENThe [facility] on above: Performed By: #### CREA #### [facility] [address] [place] [address] Dr. Aissatou VásquezXR CHEST 1 Von 20-34-2664ZI CHEST 1 VONE-VIEW CHEST RADIOGRAPH, 07/01/2022 5:31 [...] Electronically authenticated by: Jhony TOTH Date: 2022-07-01 18:01NoOhio Valley Surgical HospitalAMMONIAon 72-72-7948Sbwywkr (P) [Mass/Vol]ug/dLCritically low 11-32The [facility] HospitalComment on above:Performed By: #### LIVER, BMP, HSTROPN #### [facility] [address] [place] [address] Dr. Aissatou Barahona 30-14-1196Gqihbwpjwiz peptide B (Bld) [Mass/Vol]672.0 pg/mL Normal<=1,800.0The [facility] on above:Performed By: #### TSH, CMP, FT3, BNP, T4, LIPID #### [facility] [address] [place] [address] Dr. Aissatou SungC AUTO DIFFon 71-45-9313PSCG #0.0 103/ulNormal0.0-0.1The [facility] on above:Performed By: #### CREA #### [facility] [address] [place] [address] Dr. Aissatou VásquezBasophils/100 WBC (Bld)0.6 %Normal0.2-2.0The [facility] Comment on above:Performed By: #### CREA #### [facility] [address] [place] [address] Dr. Aissatou Bragg #0.0 103/ulNormal0.0-0.7The [facility] HospitalComment on above: Performed By: #### CREA #### [facility] [address] [place] [address] Dr. Aissatou Maynardosinophils/100 WBC (Bld)0.6 %Critically low0.9-7.0The [facility] HospitalComment on above:Performed By: #### CREA #### [facility] [address] [place] [address] Dr. Aissatou Maynardrythrocyte distribution width (RBC) [Ratio]13.7 %Wlfxsu56.0-15.0 The [facility] HospitalComment on above:Performed By: #### CREA #### [facility] [address] [place] [address] Dr. Aissatou VásquezHematocrit (Bld) [Volume fraction]40.7 %Critically low42.0-54.0 The [facility] HospitalComment on above:Performed By: #### CREA #### [facility] [address] [place] [address] Dr. Aissatou VásquezHemoglobin (Bld) [Mass/Vol]12.8 g/dLCritically low14.0-18.0The [facility] HospitalComment on above:Performed By: #### CREA #### [facility] [address] [place] [address] Dr. Aissatou Brooks #0.01 10e3/ulNormal0.00-0.03The [facility] HospitalComment on above:Performed By: #### CREA #### [facility] [address] [place] [address] Dr. Aissatou Brooks %0.2 %Normal0.0-0.5The [facility] HospitalComment on above: Performed By: #### CREA #### [facility] [address] [address] [address] Aissatou Gonzalez #1.7 103/ulNormal1.2-3.8The [facility] HospitalComment on above:Performed By: #### CREA #### [facility] [address] [place] [address] Dr. Aissatou Millermphocytes/100 WBC (Bld)27.5 %Mxegng52.5-60.0The [facility] HospitalComment on above:Performed By: #### CREA #### [facility] [address] [place] [address] Dr. Aissatou Penaloza DIFF REQNONormalThe [facility] HospitalComment on above: Performed By: #### CREA #### [facility] [address] [place] [address] Dr. Aissatou Wilson (RBC) [Entitic mass]30.3 kyQqouex43.9-34.0The [facility] HospitalComment on above:Performed By: #### CREA #### [facility] [address] [place] [address] Dr. Aissatou Wilson (RBC) [Mass/Vol]31.4 g/aWKmocid33.9-35.2The [facility] HospitalComment on above:Performed By: #### CREA #### [facility] [address] [place] [address] Dr. Aissatou Wilson (RBC) [Entitic vol]96.2 fLCritically high80.0-94.0The [facility] HospitalComment on above:Performed By: #### CREA #### [facility] [address] [place] [address] Dr. Aissatou Olivo #0.6 103/ulNormal0.3-0.8The [facility] HospitalComment on above:Performed By: #### CREA #### [facility] [address] [place] [address] Dr. Aissatou Ibrahimocytes/100 WBC (Bld)9.9 %Normal1.7-12.0The [facility] Comment on above:Performed By: #### CREA #### [facility] [address] [address] [address] Aissatou Donaldson #3.8 103/ulNormal1.4-6.5The [facility] HospitalComment on above:Performed By: #### CREA #### [facility] [address] [place] [address] Dr. Aissatou Robbinsutrophils/100 WBC (Bld)61.2 %Leksre04.0-75.0The [facility] HospitalComment on above:Performed By: #### CREA #### [facility] [address] [place] [address] Dr. Aissatou VásquezPlatelet mean volume (Bld) [Entitic vol]9.3 fLCritically low 9.5-13.5The [facility] HospitalComment on above:Performed By: #### CREA #### [facility] [address] [place] [address] Dr. Aissatou VásquezPLT218 103/jjJeuxby929-436Suo [facility] HospitalComment on above: Performed By: #### CREA #### [facility] [address] [place] [address] Dr. Aissatou VásquezRBC4.23 106/ulCritically low4.70-6.10The [facility] HospitalComment on above:Performed By: #### CREA #### [facility] [address] [place] [address] Dr. Aissatou VásquezWBC6.3 103/ulNormal4.0-11.0The [facility] HospitalComment on above: Performed By: #### CREA #### [facility] [address] [place] [address] Dr. Aissatou VásquezFREE T3on 23-60-8302CIGS T31.80 pg/mlLCritically low2.18-3.98The [facility] HospitalComment on above:Performed By: #### TSH, CMP, FT3, BNP, T4, LIPID #### [facility] [address] [place] [address] Dr. Aissatou VásquezGLYCOHEMOGLOBIN A1Con 47-85-1007UOK RECOMMENDATIONSEE BELOWNormal The [facility] HospitalComharbor beach community hospital on above:Result Comment: ADA RECOMMENDED LIMIT 4.0 - 6.0 ADA THERAPEUTIC TARGET < 7.0 ACTION SUGGESTED > 7.0Performed By: #### LIVER, BMP, HSTROPN #### [facility] [address] [address] [address] Aissatou VásquezGlucose [Mass/Vol]117 mg/dLNoOhio Valley Surgical HospitalComharbor beach community hospital on above:Performed By: #### LIVER, BMP, HSTROPN #### [facility] [address] [address] [address] Aissatou VásquezHbA1c (Bld) [Mass fraction]5.7 %Normal4.5-6.2The [facility] on above:Performed By: #### LIVER, BMP, HSTROPN #### [facility] [address] [address] [address] Aissatou Woodard 47-27-1673Dmmb [Mass/Vol]76.0 ug/oULefjfv79.0-175.0The [facility] on above:Performed By: #### PSASC, VITAD, IRON, B12FOL ####[facility] [address] [address]DrBud VásquezLIPID PROFILEon 34-14-3361HGOD-HDL RATIO NORMSEE BELOWNormPremier HealthComharbor beach community hospital on above:Result Comment: 3.3 - 4.4 LOW RISK 4.4 - 7.1 AVERAGE RISK 7.1 - 11.0 MODERATE RISK >11.0 HIGH RISKPerformed By: #### TSH, CMP, FT3, BNP, T4, LIPID ####[facility] [address] [address]DrBud VásquezCholesterol [Mass/Vol]133 mg/dLNormal<=200 The [facility] on above:Performed By: #### TSH, CMP, FT3, BNP, T4, LIPID ####[facility] [address] [address]DrBud VásquezCholesterol in HDL [Mass/Vol]79 mg/dLCritically qagr85-52UceMercy Health [facility]sburg Hospital on above:Performed By: #### TSH, CMP, FT3, BNP, T4, LIPID ####[facility] [address] [place], [place] [address]Dr. Yilan ChangCholesterol in LDL [Mass/Vol]43.6 mg/dLSelect Medical Cleveland Clinic Rehabilitation Hospital, AvonComment on above:Performed By: #### TSH, CMP, FT3, BNP, T4, LIPID ####[facility] [address] [place], [place] [address]Dr. Yilan ChangCholesterol.total/Cholesterol in HDL [Mass ratio]1.7 {ratio}NormalMercy Health Perrysburg Hospital on above:Performed By: #### TSH, CMP, FT3, BNP, T4, LIPID ####[facility] [address] [place], [place] [address]Dr. Yilan ChangHDL NORMAL> or = 60 mg/dl - LOW CARDIOVASCULAR RISK <40 mg/dl - HIGH CARDIOVASCULAR RISKOhio Valley Hospital on above: Performed By: #### TSH, CMP, FT3, BNP, T4, LIPID ####[facility] [address] [place], [place] [address]Dr. Yilan ChangLDL CALC NORMALSEE BELOWSelect Medical Cleveland Clinic Rehabilitation Hospital, AvonComharbor beach community hospital on above:Result Comment: <100 mg/dl OPTIMAL 100 - 129 mg/dl NEAR OR ABOVE OPTIMAL 130 - 159 mg/dl BORDERLINE HIGH 160 - 189 mg/dl HIGH >190 mg/dl VERY HIGHPerformed By: #### TSH, CMP, FT3, BNP, T4, LIPID ####[facility] [address] [place], [place] [address]Dr. Yilan ChangTriglyceride [Mass/Vol]52 mg/dLNormal<=150[facility] on above:Performed By: #### TSH, CMP, FT3, BNP, T4, LIPID ####[facility] [address] [place], [place] [address]Dr. Yilan ChangVLDL CALC10.4 mg/dLSelect Medical Cleveland Clinic Rehabilitation Hospital, AvonComment on above: Performed By: #### TSH, CMP, FT3, BNP, T4, LIPID ####[facility] [address] [address]Dr. Aissatou VásquezPROF 14(COMP METB)on 87-25-9169Pefjekz [Mass/Vol]4.0 g/dLNormal3.4-5.0The [facility] Comment on above:Performed By: #### TSH, CMP, FT3, BNP, T4, LIPID ####[facility] [address] [address]Dr. Aissatou Vásquez Albumin/Globulin [Mass ratio]1.1 {ratio}NormalThe [facility] HospitalComment on above:Performed By: #### TSH, CMP, FT3, BNP, T4, LIPID ####[facility] [address] [address]Dr. Aissatou ChangALP [Catalytic activity/Vol]137 U/LCritically kdin10-832Gbr [facility] HospitalComment on above: Performed By: #### TSH, CMP, FT3, BNP, T4, LIPID ####[facility] [address] [place], [place] [address]Dr. Aissatou ChangALT [Catalytic activity/Vol]18 U/ALubkbl51-46Kgl [facility] HospitalComment on above:Performed By: #### TSH, CMP, FT3, BNP, T4, LIPID ####[facility] [address] [address]Dr. Aissatou VásquezAnion gap [Moles/Vol]11.1 mmol/L NormalThe [facility] HospitalComment on above:Performed By: #### TSH, CMP, FT3, BNP, T4, LIPID ####[facility] [address] [address]Dr. Aissatou ChangAST [Catalytic activity/Vol]9 U/LCritically aox65-90Wqq [facility] HospitalComment on above:Performed By: #### TSH, CMP, FT3, BNP, T4, LIPID ####[facility] [address] [place], [place] [address]Dr. Aissatou ChangBilirubin [Mass/Vol]0.3 mg/dLNormal0.2-1.0The [facility] Hospitalment on above:Performed By: #### TSH, CMP, FT3, BNP, T4, LIPID ####[facility] [address] [address]Dr. Yilan ChangCalcium [Mass/Vol]9.4 mg/dLNormal8.5-10.1The [facility] on above:Performed By: #### TSH, CMP, FT3, BNP, T4, LIPID ####[facility] [address] [address]Dr. Yilan ChangChloride [Moles/Vol]102 mmol/XDihiht31-271Fyi [facility] on above:Performed By: #### TSH, CMP, FT3, BNP, T4, LIPID ####[facility] [address] [address]Dr. Yilan ChangCO2 [Moles/Vol]29.7 mmol/L Dtaxfo08.0-32.0The [facility] on above:Performed By: #### TSH, CMP, FT3, BNP, T4, LIPID ####[facility] [address] [address]Dr. Yilan ChangCreatinine [Mass/Vol]1.62 mg/dLCritically high0.70-1.30The [facility] on above:Performed By: #### TSH, CMP, FT3, BNP, T4, LIPID ####[facility] [address] [place], [place] [address]Dr. Yilan ChangEGFR-AF DZZHRPES44 mL/min/1.25d6Egndywniyy low>=60The [facility] on above:Performed By: #### TSH, CMP, FT3, BNP, T4, LIPID ####[facility] [address] [place], [place] [address]Dr. Yilan ChangEGFR-NON AF RWYEONJT75 mL/min/1.86f0Gvpmioagqv low>=60 The [facility] on above:Performed By: #### TSH, CMP, FT3, BNP, T4, LIPID ####[facility] [address] [address]Dr. Yilan ChangGlobulin (S) [Mass/Vol]3.8 g/dLNoOhio Valley Surgical Hospital Comment on above:Performed By: #### TSH, CMP, FT3, BNP, T4, LIPID ####[facility] [address] [address]Dr. Yilan Vásquez Glucose [Mass/Vol]86 mg/bQBfdlgj00-338Bab [facility] HospitalComment on above: Performed By: #### TSH, CMP, FT3, BNP, T4, LIPID ####[facility] [address] [place], [place] [address]Dr. Yilan ChangPotassium [Moles/Vol]4.8 mmol/LNormal3.5-5.1The [facility] HospitalComment on above: Performed By: #### TSH, CMP, FT3, BNP, T4, LIPID ####[facility] [address] [place], [place] [address]Dr. Yilan ChangProtein [Mass/Vol]7.8 g/dLNormal6.4-8.2The [facility] HospitalComment on above:Performed By: #### TSH, CMP, FT3, BNP, T4, LIPID ####[facility] [address] [place], [place] [address]Dr. Yilan ChangSodium [Moles/Vol]138 mmol/L Eynxgx688-368Jkw [facility] HospitalComment on above:Performed By: #### TSH, CMP, FT3, BNP, T4, LIPID ####[facility] [address] [place], [place] [address]Dr. Yilan ChangUrea nitrogen [Mass/Vol]41.0 mg/dL Critically high7.0-18.0The [facility] HospitalComharbor beach community hospital on above:Performed By: #### TSH, CMP, FT3, BNP, T4, LIPID ####[facility] [address] [place] [address]Dr. Yilan ChangUrea nitrogen/Creatinine [Mass ratio] 25.3 mg/mgNoOhio Valley Surgical HospitalComment on above:Performed By: #### TSH, CMP, FT3, BNP, T4, LIPID ####[facility] [address] [address]Dr. Aissatou VásquezT4on 80-83-6254H8 [Mass/Vol]9.70 ug/dL Normal4.50-12.10The Lutheran HospitalComment on above:Performed By: #### TSH, CMP, FT3, BNP, T4, LIPID #### [facility] [address] [address] [address] Aissatou [place] 14-52-0192WVV7.525 uIU/mLNormal0.358-3.740[facility] Health West HospitalComment on above:Performed By: #### TSH, CMP, FT3, BNP, T4, LIPID ####[facility] [address] [address]Dr. Aissatou UriarteT B12 AND FOLATEon 24-15-9603Samhxaajz (Vitamin B12) [Mass/Vol] 1004.0 pg/mLCritically rqxf731.0-986.0Mer[facility] Health West HospitalComment on above: Performed By: #### PSASC, VITAD, IRON, B12FOL ####[facility] [address] [address]Dr. Aissatou VásquezFOLATE6.10 ng/mLCritically low8.60-58.90The Lutheran HospitalComment on above:Performed By: #### PSASC, VITAD, IRON, B12FOL ####[facility] [address] [address]Dr. Aissatou VásquezVITAMIN D 25 OHon 79-75-6388WXF D 25-OH 31.8 ng/mLNormalMercy Health West HospitalComment on above:Performed By: #### PSASC, VITAD, IRON, B12FOL ####[facility] [address] [address]Dr. Aissatou VásquezVIT D RANGESSEE BELOWNormPremier HealthComment on above:Result Comment: <20 ng/mL Vit D deficient 20 - <30 ng/mL Vit D insufficient 30 - 100 ng/mL Vit D sufficient >100 ng/mL Potential ToxicityPerformed By: #### PSASC, VITAD, IRON, B12FOL ####[facility] [address] [place], [place] [address]Zy. Aissatou VásquezCoding Summary.on 42-55-6267Ccfanr Summary.CODING DATE: 01/23/2017 FINAL [facility] [place] [facility] STATUS: Home (Routine DC) PAYOR: Medicare [...] By: Gloria Blackburn Date Saved: 01/23/2017 10:07 amNormalK[facility] Creatinineon 78-50-9739Prcwemsvbl3.0 mg/dLNormal0.5-1.3FProMedica Defiance Regional HospitalComment on above:Performed By: #### [id number], [id number] ####[facility] [address] [place], [place] [address]aEEVai 04-81-0149qRIE (black)mL/min/{1.73_m2}Normal>=59[facility] Health SpringfieldComment on above: Order Comment: Order added by Discern Expert.Result Comment: eGFR is race adjusted. AA=.Performed By: #### [id number], [id number] ####[facility] [address] [place], [place] [address]pXCY (non-black) mL/min/{1.73_m2}Normal>=59[facility] SpringfieldComment on above:Order Comment: Order added by Discern Expert.Result Comment: Chronic kidney disease could be indicated at eGFR's of less than 60 mL/min/1.73m2. Kidney failure is indicated at less than 15 mL/min/1.73m2.Performed By: #### [id number], [id number] ####[facility] [address] [place] [address] Vital Signs Date TimeVital SignValuePerforming NlfgbqrdoMgndmife51-75-6341 12:06-0400Body lybclt443.4 cmLydia Burris MD Work Phone: [facility] HospitalVwuvlegyti24-14-9066 12:06-0400Body mass index (BMI) [Ratio]24.67 kg/m2Lydia Burris MD Work Phone: [facility] HospitalDfzijypowu93-64-2671 12:06-0400Body jctzoi42.82 kgLydia Burris MD Work Phone: [facility] HospitalJfqqjabayp55-45-9409 08:30-0400Body temperature 98.1 [degF]Juan Ramon Lucero MD Work Phone: [facility] [employer] [place] [facility] CenterApertio Ycmqsv32-04-0579 08:30-0400Diastolic blood vnjsvkqi22 mm[Hg]Juan Ramon Lucero MD Work Phone: [facility] [employer] [place] [facility] CenterA[facility] Eelsvv64-96-2541 08:30-0400Heart rate63 /minJuan Ramon Lucero MD Work Phone: [place] [employer] [place] [facility] CenterAgricultural Holdings InternationalDwdnoq93-44-9205 08:30-0400 Respiratory rate16 /minJuan Ramon Lucero MD Work Phone: [facility] CenterTransinsight [facility] CenterAgricultural Holdings InternationalMvlsam93-28-0854 08:30-9897EhP9% (BldA) [Mass fraction]100 %Juan Ramon Lucero MD Work Phone: [place] [employer] [place] [facility] CenterAgricultural Holdings InternationalMvkjri30-29-0180 08:30-0400Systolic blood zglavmlc304 mm[Hg]Juan Ramon Lucero MD Work Phone: [facility] [employer] [place] [facility] CenterAgricultural Holdings InternationalIqardu42-03-0017 13:26-0400Body vtodfk362.4 cmJuan Ramon Lucero MD Work Phone: [place] [employer] [place] [facility] CenterAgricultural Holdings InternationalHfabtl34-14-3836 18:15-0400Body mass index (BMI) [Ratio]28.22 kg/d9IhqzbhsJuan Ramon Lucero MD Work Phone: [facility] CenterTransinsight [facility] Bppuye19-16-8212 18:15-0400Body ubnonu26 kgJuan Ramon Lucero MD Work Phone: [facility]08-26-2025 06:04-0400Body nlyknjgzhfq05.8 [degF]Felix Arguello MD Work Phone: [facility] CenterTransinsight [facility] CenterOnfaxd40-06-6353 06:04-0400Diastolic blood mm[Hg]Felix Arguello MD Work Phone: [facility] CenterPherer80-25-9217 06:04-0400Heart rate58 /minFelix Arguello MD Work Phone: [facility] HospitalTrans[facility] CenterUqskfw26-83-1500 06:04-0400 Respiratory rate16 /minFelix Arguello MD Work Phone: [facility]08-26-2025 06:04-5389RoJ6% (BldA) [Mass fraction]97 %Felix Arguello MD Work Phone: [facility] HospitalTransinsight [facility] CenterYychzb82-73-0185 06:04-0400Systolic blood upcknkpm797 mm[Hg]Felix Arguello MD Work Phone: [facility]08-26-2025 05:24-0400Body mass index (BMI) [Ratio]28.21 kg/j9IkskyzgFelix Arguello MD Work Phone: [facility] CenterTransinsight [facility] CenterQooeth51-79-9706 05:24-0400Body sifftn52 kgFelix Arguello MD Work Phone: [facility] HospitalTrans[facility] CenterZyclpo79-60-1288 00:44-0400Body uwyetv380.4 cmFelix Arguello MD Work Phone: [facility] CenterTransinsight [facility] CenterApertio Zqrnvn10-05-3596 16:05-0500Body mass index (BMI) [Ratio]24.59 kg/m2Lydia Burris MD Work Phone: [address] [address]Yekniqdqwz48-74-3324 16:05-0500Body rtuyui30.55 kgLydia Burris MD Work Phone: [facility] HospitalWsqczythzy73-74-6824 16:05-0500Diastolic blood vyrxihkw93 mm[Hg]Lydia Burris MD Work Phone: [facility] HospitalFfaadhljna76-14-0578 16:05-0500Systolic blood zoptharf297 mm[Hg]Lydia Burris MD Work Phone: [facility] HospitalKgtjgzdcdt66-23-0893 15:53-0500Body cojnrd459.4 cmChadd Gonzalez MD Work Phone: [facility]12-04-2024 15:53-0500Body mass index (BMI) [Ratio]24.14 kg/j4GjryqaqChadd Gonzalez MD Work Phone: [facility]12-04-2024 15:53-0500Body ezbscs76.01 kgChadd Gonzalez MD Work Phone: [facility]12-04-2024 15:53-0500Diastolic blood ptyuzsqt52 mm[Hg]Chadd Gonzalez MD Work Phone: [facility]12-04-2024 15:53-0500Heart rate 72 /minChadd Gonzalez MD Work Phone: [facility]12-04-2024 15:53-0500Systolic blood nqeaxijq664 mm[Hg]Chadd Gonzalez MD Work Phone: [facility]09-18-2023 13:55-0400Diastolic blood iqhdaprj06 mm[Hg]Jodi Banerjee DO Work Phone: [facility]09-18-2023 13:55-0400Heart rate51 /min Jodi Banerjee DO Work Phone: [facility]09-18-2023 13:55-0400Systolic blood mfscxhau964 mm[Hg]Jodi Banerjee DO Work Phone: [facility]02-22-2023 13:12-0500Diastolic blood cfbkvvuf91 mm[Hg]Jodi Banerjee DO Work Phone: [facility]02-22-2023 13:12-0500Heart rate69 /min Jodi Banerjee DO Work Phone: [facility]02-22-2023 13:12-0500Systolic blood cfjrhfli076 mm[Hg]Jodi Banerjee DO Work Phone: [facility] Encounters Encounter DateEncounter TypeCare ProviderFacilityStart: 05-03-2025 End: 02-56-5456wamuqzxkjkQMX [facility]art: 05-03-2025 End: 23-60-8705Pxpwieec ReferredDaveronica Spears [facility] Work Phone: Start: 05-02-2025 End: 64-69-0086Cpovawbernice Burris MD Work Phone: noms NEUROLOGYStart: 05-02-2025 End: 54-59-8472Oxxfjdbernice Burris MD Work Phone: noms NEUROLOGYStart: 05-02-2025 End: 89-60-6438Ahezps outpatient visit 25 minutesLydia Burris MD Work Phone: noms [facility] NeurologyComment on above: Cognitive decline (Primary Dx); Parkinson's disease without dyskinesia or fluctuating manifestations (HCC); Polyneuropathy; Agitation; 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)Start: 05-02-2025 End: 22-72-5213uwvvkcwdtpOKXW D BEJNot AvailableStart: 03-17-2025 End: 37-61-8723ptsmuvrflpXzgiqa R [facility] Work Phone: Start: 03-17-2025 End: 73-55-9356Pklgvmd encounter procedureDaveronica Neely [facility] Work Phone: Start: 02-28-2025 End: 18-69-2816Xguacuopnq and management of inpatientJuan Ramon Lucero MD Work Phone: stcz Acute RehabComment on above:S/P hip hemiarthroplasty (Primary Dx); Left displaced femoral neck fracture (HCC); Hip fracture, left, sequelaStart: 02-25-2025 End: 61-94-6781Ucbcaimpev and management of inpatientMohamed Willian Arguello MD Work Phone: stcz Med SurgComment on above:Fall, initial encounter (Primary Dx); Closed fracture of femur, unspecified fracture morphology, unspecified laterality, unspecified portion of femur, initial encounter (HCC); Abnormal chest x-ray; ANIYA (acute kidney injury)Start: 09-13-2024 End: 93-45-6627yxthfnjnmfFEIJ D BEJNot AvailableStart: 09-13-2024 End: 40-98-9759Rnfczk outpatient visit 15 minutesLydia Burris MD Work Phone: noms [facility] NEUR BComment on above:Cognitive decline (Primary Dx); Parkinson's disease without dyskinesia or fluctuating manifestations (CMS/HCC); PolyneuropathyStart: 07-22-2024 End: 44-94-8583pkqntgsdhnLARONSQ [facility] Centertart: 07-19-2024 End: 90-49-7798dkqouvdudiFLSV Oli BURRISNot AvailableStart: 07-19-2024 End: 70-48-0315Rsopgo outpatient new 60 minutesLydia Burris MD Work Phone: noms [facility] NEUR BComment on above:Cognitive decline (Primary Dx); Parkinson's disease without dyskinesia or fluctuating manifestations (CMS/HCC); PolyneuropathyStart: 07-19-2024 End: 02-89-5320Fyaknf Val Burris MD Work Phone: noms NEUROLOGYStart: 07-19-2024 End: 09-24-8379Stmbzxbernice Burris MD Work Phone: noms NEUROLOGYStart: 06-16-2024 End: 67-87-1144Ctsxrchbk encounterSoniya Shay LPNPNéstor Physicians Genito- Urinary SurgeonsStart: 06-08-2024 End: 81-15-5729Sgntni outpatient new 45 minutesChadd Gonzalez MD Work Phone: [facility] Genito-Urinary SurgeonsComment on above:Functional urinary incontinence (Primary Dx); Other specified disorders of kidney and ureter; Urinary incontinence, unspecified typeStart: 06-08-2024 End: 49-14-5599Jkqzcyosk encounterChadd Gonzalez MD Work Phone: [facility] Genito-Urinary SurgeonsStart: 05-30-2024 End: 66-78-9559lvdgyxiowwJCOQDSBarberton Citizens Hospital Start: 06-24-2023 End: 32-82-2094xahozfqzpoPTHCVCHighland District Hospital Start: 03-23-2023 End: 56-03-3923xdyssmuijySLPMTQOYOOL M VINCENTFacility:[facility] Start: 03-23-2023 End: 69-27-6562Mtrpxne encounter procedureChristopher Louisa Adameent DO Work Phone: NeurologyComment on above:Altered mental status, unspecified altered mental status type (Primary Dx); Memory lossStart: 55-91-3728Rzwbyygmo encounterChristopher Louisa Adameent DO Work Phone: NeurologyStart: 10-27-2022 End: 37-09-4749anlzmkbhwxQI PIPE JEFFERS .Facility:Y3Qidlr: 09-24-2022 End: 87-12-7509rgnwbnspfxUW PIPE JEFFERS .Facility:O2Tdqcg: 08-27-2022 End: 47-76-7022qhtdfvqxbkYUHQHDV M HOYFacility:[facility] Hospitaltart: 08-27-2022 End: 37-24-4880Dkmfhyp encounter procedureChristopher Louisa Vincent DO Work Phone: NeurologyComment on above:Altered mental status, unspecified altered mental status type (Primary Dx); Vitamin D deficiency, unspecifiedStart: 07-11-2022 End: 78-17-2592awgfgzwsxhSH PIPE HOY .Facility:S3Nbtqr: 07-08-2022 End: 93-80-6545vdgrjgsuogQH PIPE HOY .Facility:V4Amvvm: 07-06-2022 End: 50-76-7912rjaefsgobfTH PIPE HOY .Facility:S7Xpihr: 07-01-2022 End: 94-90-5408Gcyihbaseb and management of inpatientDR PIPE HOY .Facility:H1 Start: 06-25-2022 End: 73-82-5804bdpvrlcghuMD PIPE HOY .Facility:H0Hqwcm: 06-05-2022 End: 43-44-2018ynxqwxfefeZE PIPE HOY .Facility:R1Zobao: 06-25-2017 End: 90-09-4635JhfcobcesiPBUXGEK PHYSICIANFacility:UTMCStart: 01-22-2017 End: 40-56-5441XvqeutkharKSNSQH JANGFacility:FTMCStart: 15-85-1277Nixufhk encounter statusChristopher [facility] Work Phone: [facility] Work Phone: Procedures DateProcedureProcedure DetailPerforming ClinicianStart: 69-46-6419OCIUD METABOLIC PANEL W/ REFLEX TO MG FOR LOW Elian Betancourt MD Work Phone: Start: 30-87-9527Gwrdk count complete auto&auto difrntl wbcSanjaelyn Betancourt MD Work Phone: Start: 24-81-7723Cfssn metabolic panel calcium total Juan Ramon Lucero MD Work Phone: Start: 12-87-2952MOMKJ METABOLIC PANEL W/ REFLEX TO MG FOR LOW KAkinfemi Torey Arzola MD Work Phone: Start: 72-38-7904RGLZF METABOLIC PANEL W/ REFLEX TO MG FOR LOW Elian Betancourt MD Work Phone: Start: 19-73-9144Ehvbd count complete auto&auto difrntl wbcMike Betancourt MD Work Phone: Start: 22-91-8581Zisqc metabolic panel calcium total Saul Charmaine Crouch MD Work Phone: Start: 43-35-6645WTAMS METABOLIC PANEL W/ REFLEX TO MG FOR LOW KScourtney Betancourt MD Work Phone: Start: 12-89-4519Jwwko count complete auto&auto difrntl wbcMike Betancourt MD Work Phone: Start: 35-27-9593Pkniomy function panelScourtney Betancourt MD Work Phone: Start: 90-45-9196GN WOUND CARE/OSTOMY NURSE CLAUDIA AND TREATMarylee Lucero MD Work Phone: Start: 49-40-6583Idpeyg and language therapy regime Mike Betancourt MD Work Phone: Start: 52-48-1983Zc thorax w/o contrast materialDavioli Downing MD Work Phone: start: 63-62-6921Co retroperitoneal real time w/image limitedAna Downing MD Work Phone: start: 62-91-3342VWEYO METABOLIC PANEL W/ REFLEX TO MG FOR LOW KDavid A Aneudy XIONG Work Phone: start: 60-94-0837Btqjf count complete auto&auto difrntl wbcDatamika Downing MD Work Phone: start: 44-78-6036Gjpsj of parathormoneNaveed De XIONG Work Phone: Start: 04-23-4734GXSYFXTFNJDUL METABOLIC W/ BILI PROFILE W/ REFLEX TO MGNaveed De XIONG Work Phone: Start: 51-90-6673DNQZC METABOLIC PANEL W/ REFLEX TO MG FOR LOW KDavid A Aneudy XIONG Work Phone: start: 45-18-9628Mcnqq count complete auto&auto difrntl wbcDavid Willian Downing MD Work Phone: start: 09-27-0591Wmohyiogpa microscopic onlyRoxanne Edward MD Work Phone: Start: 83-69-0982Xmmai dip stick/tablet rgnt auto w/o microscopyDasatinderd Willian Downing MD Work Phone: start: 47-68-8270Gurav hip unilateral with pelvis 1 viewDavid Willian Downing MD Work Phone: start: 02-25-2025 End: 43-98-3241Qmqrkqedyivyxmuy hip partialDavid Willian Downing MD Work Phone: start: 72-24-1191AFBOT METABOLIC PANEL W/ REFLEX TO MG FOR LOW KDavid Willian Downing MD Work Phone: start: 93-00-3194Ufnsivmovw glycosylated w5sRefzjd L Cheo NET APPLICATION SUPPORT SPECIALIST - INDUSTRIAL ELECTRICAL ENGINEER Work Phone: Start: 95-07-5867Lnmee panelMonica L Andreahoconnie NET APPLICATION SUPPORT SPECIALIST - INDUSTRIAL ELECTRICAL ENGINEER Work Phone: Start: 06-39-2116Rxqqzpjvrupp pulse oximetryMonica L Cheo NET APPLICATION SUPPORT SPECIALIST - INDUSTRIAL ELECTRICAL ENGINEER Work Phone: Start: 05-82-4012Nvghj count complete auto&auto difrntl wbcMoshannon Arguello MD Work Phone: Start: 02-25-2025 End: 82-56-4940Wphqecuale examination knee 3 viewsMoshannon Arguello MD Work Phone: Start: 72-28-4281Liuxmilvnb exam chest single view Felix Arguello MD Work Phone: Start: 73-86-8708Nc cervical spine w/o contrast materialMoshannon Arguello MD Work Phone: Start: 32-80-2204Jd head/brain w/o contrast material Felix Arguello MD Work Phone: Start: 18-18-8018Fwwgy metabolic panel calcium total Felix Arguello MD Work Phone: Start: 01-54-0917PNN screeningDR PIPE JEFFERS .Comment on above:Performed By: #### PSASC, VITAD, IRON, B12FOL ####[facility] [address] [place], [place] [address]PfBud Reyez ChangStart: 69-26-6011Eayxcqs of coronary artery bypass graftingS/P CABG (coronary artery bypass graft), PARRA to the LAD, SVG to D1, SVG to OM1, SVG to OM 2, inverted Y grafted PLV and posterior descending artery.Jodi Banerjee DO Work Phone: Plan of Treatment DateCare ActivityDetailAuthorStart: 09-05-2025 End: 71-86-4777Igidmnu encounter yvmcvgkun83/03/2026 11:15 AM EST Office Visit JAMES [facility] [address] [facility] [address] [place] [address] Lydia Burris MD [address] [id number] J[facility] Start: 06-06-2025 End: 81-95-0505Itmglew encounter zttaxzyyb11/02/2025 1:30 PM EST Office Visit JAMES [facility] [address] [facility] [address] [place] [address] Lydia Burris MD [address] [address] J[facility] Start: 05-02-2025 End: 20-22-6886Veirhtp encounter nnqtuffit96/28/2025 12:00 PM EDT Office Visit JAMES Salomon [facility] [address] [facility] [address] [place] [address] Lydia Burris MD [address] [address] Mavis [facility] NeurologyComment on above:ArrivedStart: 03-28-2025 End: 80-93-8598Yfjwkwb encounter brdegbkol52/23/2025 2:15 PM EDT Office Visit [facility] B [address] [place] [phone] Lydia Burris MD [address] [address] [facility] NE[facility] BStart: 55-85-8957NSBRZ-19 Vaccine ( season)COVID-19 Vaccine ( season)[facility]Start: 47-68-1203Efoqow Wellness Visit (Medicare)Annual Wellness Visit (Medicare)[facility] [place] [facility] Systemart: 30-62-4163Neicjtwjj vaccinationFlu vaccine (#1)[facility] HospitalStart: 09-06-2024 End: 58-62-5675Gypwlhs encounter oufszzkxm68/04/2025 1:45 PM EST Office Visit [facility] [address] [facility] [place] [phone] Lydia Burris MD [address] [facility] [address] [address] [facility] NE[facility] BStart: 65-05-3355Rzxqse Wellness Visit (Medicare Advantage)Annual Wellness Visit (Medicare Advantage)[facility] [place] [facility] Systemart: 06-08-2024 End: 23-98-6251HE RetroperitoneumUltrasound retroperitoneal complete Imaging Routine Urinary incontinence, unspecified type Expected: 06/08/2024, Expires: 06/08/2025[facility] Work Phone: Comment on above:Expected: 06/08/2024, Expires: 06/08/2025Start: 71-23-2469XIHNJ-19 Vaccine ( season)COVID-19 Vaccine ( season)[facility]art: 00-33-2071Ohnqggbkg vaccinationInfluenza VaccineProOhio Valley Surgical Hospitaltart: 86-90-6746Bvtvzbvcc vaccinationInfluenza Vaccine (#1)[facility] Centertart: 08-27-2022 End: 97-31-321219955585-wyxngvhmkdsmfo D3 [Mass/volume] in Serum or PlasmaC[facility] Clinic [facility] Work Phone: Comment on above:Expected: 08/27/2022, Expires: 10/27/2022Start: 08-27-2022 End: 16-61-9307SDOMTAJJ TOTAL W/REFLEXCleveland Clinic Akron General Work Phone: Comment on above:Expected: 08/27/2022, Expires: 10/27/2022Start: 68-32-1616YMXYMSU DIRECTIVE DISCUSSIONADVANCE DIRECTIVE DISCUSSIONMetroHealth Parma Medical Centertart: 94-20-0598QPWNMRSYTT ASSESSMENTDEPRESSION ASSESSMENTMetroHealth Par[facility] Medical Centertart: 08-89-5895Fhlabudvh vaccinationINFLUENZA (#1) [facility] Centertart: 50-86-7678HMWUNXWK SCREENDIABETES SCREENZanesville City Hospital Start: 35-85-4624Azlhudjr ScreeningDiabetes ScreeningMetroHealth Parma Medical Centertart: 10-48-3055Fbiidkdvwuv Syncytial Virus (RSV) or age 60 yrs+ (1 - 1-dose 75+ series)Respiratory Syncytial Virus (RSV) or age 60 yrs+ (1 - 1-dose 75+ series)[facility] HospitalStart: 39-71-9973Ckoxweidf B surface antibody levelLDL CHOLESTEROLMetroHealth Parma Medical Centertart: 86-40-2841Jdkc Risk ScreeningFall Risk ScreeningNovant Health Clemmons Medical Centertart: 49-43-8654Ntwpzojoxvvf Vaccine: 65+ (1 - PCV)Pneumococcal Vaccine: 65+ (1 - PCV)[facility] Centertart: 48-04-1475UQLWWYYYRXBG: 65+ (1 - PCV)PNEUMOCOCCAL: 65+ (1 - PCV)[facility] Centertart: 94-78-2324Fntteafkwrjkeo of varicella zoster vaccineZoster (Shingles) Vaccine (1 of 2)[facility] Centertart: 06-04-5918Trryirwb vaccine (1 of 2)Shingles vaccine (1 of 2)[facility] HospitalStart: 58-52-1936BPQLBXHK VACCINE (1 of 2)SHINGRIX VACCINE (1 of 2)[facility] Start: 74-46-8100XHoJ,Tdap and Td Vaccines (1 - Tdap)DTaP,Tdap and Td Vaccines (1 - Tdap)[facility] Centertart: 73-38-0481OKbT/Tdap/Td vaccine (1 - Tdap)DTaP/Tdap/Td vaccine (1 - Tdap)[facility] Hospitalart: 1959 Urine microalbumin profileMetroHealth Parma Medical Centertart: 16-75-3231Nqqhirxbsf Screen Depression ScreenMary [facility] Healthcare: 38-57-5818Tbdzgxfxum Screening Depression ScreeningNovant Health Clemmons Medical Centertart: 77-93-6778Qumljlx Screening Tobacco ScreeningNovant Health Clemmons Medical Centertart: 95-59-8190VJLYN-19 VACCINE (#1) COVID-19 VACCINE (#1)[facility] End: 85-45-0254Xefnhktz identified in Urine by CultureUrine Culture Microbiology Routine Urinary incontinence, unspecified type 1 Occurrences starting 10/2023 until 06/08/2025[facility] CenterComment on above:1 Occurrences starting 06/08/2024 until 06/08/2025 End: 86-10-2653Uytll metabolic 2000 panel - Serum or PlasmaBasic Metabolic Panel Lab Routine Every MWF at 6:30AM (BMT lab orders) for 3 Weeks starting 03/06/20 until 03/24/2025, 1 [facility] on above:Every MWF at 6:30AM (BMT lab orders) for 3 Weeks starting 03/06/2025 until 03/24/2025, 1 completed End: 72-62-8537Uyftq Metabolic Panel w/ Reflex to MGBasic Metabolic Panel w/ Reflex to MG Lab Routine Weekly for 4 Occurrences starting 03/01/2025 until 03/22/2025, 3 [facility] on above:Weekly for 4 Occurrences starting 03/01/2025 until 03/22/2025, 3 completed End: 83-32-3914NLW W Auto Differential panel - BloodCBC auto differential Lab Routine Weekly for 4 Occurrences starting 03/01/2025 until 03/22/2025, 3 c ompletedB [facility] [employer] [facility] on above:Weekly for 4 Occurrences starting 03/01/2025 until 03/22/2025, 3 completedIntermittent pulse oximetry Pulse Oximetry Spot Check Respiratory Care Routine As Needed until discontinued starting 02/28/2025 [facility] on above:As Needed until discontinued starting 02/28/2025Nasal Cannula oxygenNasal Cannula oxygen Respiratory Care Routine As Needed until discontinued starting 02/28/2025 [facility] on above:As Needed until discontinued starting 02/28/2025Oxygen therapy [Minimum Data Set]Initiate Oxygen Therapy Protocol Respiratory Care Routine Daily until discontinued starting 02/25/2025 [facility] on above:Daily until discontinued starting 02/25/2025Oxygen therapy [Minimum Data Set]Initiate Oxygen Therapy Protocol Respiratory Care Routine As Needed until discontinued starting 02/25/2025 [employer] Comment on above:As Needed until discontinued starting 02/25/2025Oxygen therapy [Minimum Data Set]Initiate Oxygen Therapy Protocol Respiratory Care Routine Daily until discontinued starting 02/28/2025 [employer] Work Phone: Comkklb on above:Daily until discontinued starting 02/28/2025 End: 20-33-9959LIZZCBIR REJECTIONCarondelet St. [facility] [employer] [facility] on above:Once for 1 Occurrences starting 03/13/2025 until 03/13/2025 End: 71-37-5698Jzzisd and language therapy regimeSLP eval and treat BUSINESS MANAGEMENT INTERN Routine One Time for 1 Occurrences starting 02/28/2025 until 02/28/2025 [facility] on above:One Time for 1 Occurrences starting 02/28/2025 until 02/28/2025Spirometry panelIncentive spirometry Respiratory Care Routine Every 2hr while awake until discontinued starting 02/25/2025 [employer] Comment on above:Every 2hr while awake until discontinued starting 02/25/[address] [facility] HospitalComment on above:Daily until discontinued starting 02/28/2025Every 2hr while awake until discontinued starting 02/28/2025[facility] Immunizations Immunization DateImmunizationNotesCare TxxxtrciAobpjhhr41-53-8595jwirufakb virus vaccine, unspecified formulationChristopher Chriss DO Work Phone: [facility] Payers DatePayer CategoryPayerPolicy [id number] 2025Self-pay 2024Medicare (Managed Care)[id number] 2024Medicare [employer] MEDICARE [id number] [id number] [id number] [id number] Health Insurance [id number] 2004Medicare [id number] [id number] 1960 [id number] [id number] [id number] 2.16.840.1.440166.3.57[id number] 2.16.840.1.307361.3.57[id number] 2..840.1.785137.3.57[id number] 2..840.1.548678.3.57[id number] 2..840.1.037271.3.57[id number] 2.840.1.479183.3.57[id number] 2.840.1.961663.3.57[id number] 2.840.1.953758.3.579.[id number] 2..840.1.382743.3.57[id number] 2.840.1.031873.3.57[id number] 2..840.1.892588.3.57[id number] 2.16.840.1.668853.3.57[id number] 2.16.840.1.413487.3.579.[id number] 2.16840.1.612290.3.[id number] 2.16.840.1.4[id number] 2.16.840.1.481293.3.579.2.531 Social History DateTypeDetailFacilityStart: 08-27-2022 End: 27-31-2218Awgfxaw smoking status NHISEx-smokerZanesville City HospitalHistory of tobacco useCurrent smokerZanesville City HospitalHistory of tobacco useCigarette Smoker [facility] Centertart: 08-27-2022 End: 27-06-5120Vfuqzrsfdc smoked current (pack per day) - Ltaotvol1Ubfrysgvh ClinicStart: 72-10-6297Rvqodbr use and exposureFormer smokeless tobacco user [facility] End: 35-83-2408Axuxahp of tobacco useUser of smokeless tobaccoZanesville City Hospital Start: 08-27-2022 End: 39-90-6236Iqeoeuy intakeCurrent drinker of alcohol (finding)[facility] Centertart: 90-49-3234Utljtgz Commentquit 40 yrs agoMet[facility]Health [facility] Medical Centertart: 72-32-6355Vhjtrad CommentHe drinks 4 glasses of red wine weeklyZanesville City Hospital Start: 85-91-8762Yek Assigned At BirthNot on fileMetroHealth Parma Medical Centertart: 03-23-2023 End: 57-06-7237Ofmiusp use panelMetroHealth Parma Medical Centertart: 68-64-8193Qvvqwntm Score (1-100), lower number is lower cjst57Sfmkwss[address] [place], [place] [address]tart: 03-05-2023 End: 01-19-2356Owbobne use and exposureSmokeless tobacco non-userNOMS Healthcare Start: 32-32-1408Ssohdqmfa beverage intakeLifetime non-drinker (finding)NOMS HealthcareTobacco smoking status NHISTobacco smoking consumption unknown [facility] SystemStart: 21-09-7187Kib assigned at birthSt. Christopher's Hospital for Children SystemStart: 02-08-2015 End: 47-08-3911ZvmIali (finding)[facility] SystemStart: 40-02-1279Ejgutko smoking status NHISNever smoked tobaccoBon Secours Mercy HealthIn the past 12 months, was there a time when you were not able to pay the mortgage or rent on time?NoBon [employer](I/We) worried whether (my/our) food would run out before (I/we) got money to buy more.Never trueBon [employer] NEGATED: Highlighted rowStart: NINFHistory of tobacco usePassive smokerNOMS Healthcare Medical Equipment Procedure CodeEquipment CodeEquipment Original TextEquipment IdentifierDates Component Uplr [id number] Hip Co Chrom Molybdenum Ally Mod - [id number] ()[id number], [id number] FDAStart: 33-00-6055Freq Fem L125mm Njp49rd Hip Ti Pps Std Offset Julieta Press[employer] - [id number] ()[id number], [id number] FDAStart: 57-00-6743Busvwk Fem Nk L-6mm Tapr Hip Co Chrom Molybdenum Ally Endo - [id number] ()[id number], [id number] FDAStart: 02-25-2025 Clinical Notes 05-28-2011 to 05-02-2025 Note Date & TspgQmegIdrgfmtb57-81-7822 History of Present illness Narrative* Lydia Burris [...] (09/2024, Lesli/Randal) - gen slow Labs - G88=6002/35H/521H/_ Surgery Failed Dx PD Tx Sinemet 25/100 [...] ? [address] ? [place], [place] [address] ? ? fax Neurology ? Clinical Neurophysiology ? Epilepsy ? Sleep Disorders ? Clinical Informatics documented in this encounterFreeman Neosho HospitalJeyaqoocqp10-30-0674 History of Present illness Narrative* Mele Alvarado RN - 03/16/2025 1:53 PM EDT Patient was picked up by [facility]. No complications noted. * Sully Roman, OT - 03/16/2025 1:21 PM EDT [facility] Acute Rehabilitation Occupational Therapy Daily Treatment Note Date: 03/16/25 Patient Name: Leanna Nguyễn Room: 2619/2619-01 Account: [id number] : 1940 (84 y.o.) Gender: male Diagnosis: left femoral neck fracture following fall. L hip Hemiarthroplasty , parkinson's. Additional Pertinent Hx: Leanna Nguyễn is a 84 y.o. right-handed male admitted to the [facility] on 02/28/2025. He was originally admitted to [facility] on 02/25/2025 for left femoral neck fracture [...] rehydration. Palliative care brother has power of commonwealth attorney no , no children parents are [...] 50 % of the time during therapy./met Long-Term Goals Time Frame for Long-Term Goals : by discharge -11 goals 1-3 not met, goals 4 and 5 met. Long-Term Goal 1: mod x 1 LE bathe and dress (with cues, assist provided due to pt poor memory withL hip precautions. ) Cutter Operator Helper Goal 2: mod x 1 toileting and adl transfers Cutter Operator Helper Goal 3: concha 6-7 min stand, transfer, amb with BUE support on RW and mod A. Cutter Operator Helper Goal 4: concha 15 reps shld, elbow AROM with mod resistance on R and min on L for BUE strengthening for use during mobility for adls. Long-Term Goal 5: increase MMT B elbow to [...] disease, CKD stage III. [facility] with complaints of left hip [...] Prognosis is guarded. Okay for discharge to [facility] from renal standpoint. Follow-upwith nephrology in 4 weeks. * Mele Alvarado RN - 03/16/2025 12:49 PM EDT RN called report to Charlene RN at [facility]. All questions answered. Patient will be picked up at 1300. * Mele Alvarado RN - 03/16/2025 12:32 PM EDT Images from the original note were not included. ACUTE INPATIENT REHABILITATION DISCHARGE [facility] Patient Name: Leanna Nguyễn Patient discharged [...] for patient transfer into vehicle: SUBSTANTIAL/MAXIMAL ASSISTANCE: [place] does MORE THAN HALF the effort. [place] lifts or holds trunk or limbs and [...] Morrison - 03/16/2025 12:24 PM EDT No [facility] confirmed Radha Mcneil ARU 03/16/25 12:12pm kbg * Lenore Vivas, BUSINESS MANAGEMENT INTERN - 03/16/2025 10:41 AM EDT Speech Language Pathology [facility] Cognitive Treatment Note Date: 03/16/2025 Patient s Name: Leanna Nguyễn Diagnosis: Patient Active Problem List Diagnosis Code Left displaced femoral neck fracture (HCC) S72.002A Fall W19.XXXA ANIYA (acute kidney injury) N17.9 Parkinson's disease ([facility]) G20.A1 Coronary artery disease involving ak chin coronary artery of ak chin heart without angina pectoris I25.10 Hip fracture, left, sequela S72.002S S/P hip hemiarthroplasty Z96.649 Closed fracture of left hip (HCC) S72.002A Pain Rating: Pt. Denies pain. Cognitive Treatment Treatment time: BUSINESS MANAGEMENT INTERN Individual Minutes Time In: 09 Time Out: [...] discharge. Treatment completed by: Lenore Vivas M.S. [facility]-BUSINESS MANAGEMENT INTERN * Mele Alvarado RN - 03/16/2025 9:17 AM EDT Patient is refusing compression stockings. Patient educated on the importance of using the. Patientis upset that he can't take them off and put them on by himself since they hurt his legs. * Roxanne Edward MD - 03/15/2025 5:37 PM EDT IN-PATIENT SERVICE [facility] Internal Medicine Progress note Date: 03/15/2025 Patient name: Leanna Nguyễn Date of admission: 02/28/2025 3:30 PM Account: [id number] Date of : 1940 PCP: Pipe Jeffers MD [facility]9/2619-01 Code Status: Full Code Physician Requesting Consult: Juan Ramon Lucero MD Reason for Consult: medical management Chief Complaint: Medical management History Obtained From: Patient medical record nursing staff History of Present Illness: Patient, has past medical history multiple medical problem, which include coronary artery disease status post CABG, CHF, hypothyroidism, hypertension, hyperlipidemia, pulmonary fibrosis, chronic kidney disease, Parkinson disease, dementia, patient presented to [facility] after a fall, he had left hip pain, found to have acute subcapital left femoral neck fracture, patient underwent left hip hemiarthroplasty on 02/25 While in hospital, patient had worsening creatinine, was evaluated by apiarist, treated with IVfluids, torsemide was kept on hold, patient, creatinine improved to his baseline, Patient required Shell's catheter placement which was later removed Transferred to [facility] acute rehab unit for further management Past Medical History: History reviewed. No pertinent past medical history. Past Surgical History: Past Surgical History: Procedure Laterality Date HIP SURGERY Left 02/25/2025 HIP HEMIARTHROPLASTY performed by Ana Downing MD at [facility] OR Medications Prior to Admission: Prior to Admission medications Medication Sig Start Date End Date Taking? Authorizing Provider amLODIPine (NORVASC) 2.5 MG tablet Take 1 tablet by mouth daily Ruth Hoew MD aspirin 81 MG chewable tablet Take [...] Take 1 tablet by mouth Daily Ruth Hwoe MD liothyronine (CYTOMEL) 5 MCG tablet Take [...] data in the 24 hours ending 03/15/25 5048 General Appearance: alert, well appearing, and in [...] documented statin allergies, patient, recently evaluated by glaze supervisor, last LDL was 71 CHF, compensated Parkinson disease, follows closely with neurology as outpatient Dementia on Namenda Hypothyroidism on Synthroid and liothyronine , TSH tested recently is okay Chronic kidney disease, creatinine inproved to 1.8 , diuretics kept on hold, patient evaluated by apiarist starting patient on heparin 5000 every 8 [...] Roman OT - 03/15/2025 4:26 PM EDT [facility] Acute Rehabilitation Occupational Therapy Daily Treatment Note Date: 03/15/25 Patient Name: Leanna Nguyễn Room: 2619/2619-01 Account: [id number] : 1940 (84 y.o.) Gender: male Diagnosis: left femoral neck fracture following fall. L hip Hemiarthroplasty , parkinson's. Additional Pertinent Hx: Leanna Nguyễn is a 84 y.o. right-handed male admitted to the [facility] on 02/28/2025. He was originally admitted to [facility] on 02/25/2025 for left femoral neck fracture [...] rehydration. Palliative care brother has power of commonwealth attorney no , no children parents are [...] in dayroom with activity in progress and TAX REVENUE OFFICER.) Family education Completed :family (brother, niece and [...] 50 % of the time during therapy. Cutter Operator Helper Goals Time Frame for Long-Term Goals : by discharge Long-Term Goal 1: mod x 1 LE bathe and dress (with cues, assist provided due to pt poor memory withL hip precautions. ) Long-Term Goal 2: mod x 1 toileting and adl transfers Long-Term Goal 3: concha 6-7 min stand, transfer, amb with BUE support on RW and mod A. Long-Term Goal 4: concha 15 reps shld, elbow AROM with mod resistance on R and min on L for BUE strengthening for use during mobility for adls. Long-Term Goal 5: increase MMT B elbow to [...] disease, CKD stage III. Patient presented [facility] on 02[facility]/2025 with complaints of left hip [...] adequate. Prognosis is guarded. * Lenore Vivas, BUSINESS MANAGEMENT INTERN - 03/15/2025 1:46 PM EDT Speech Language Pathology [facility] Cognitive Treatment Note Date: 03/15/2025 Patient s Name: Leanna Nguyễn Diagnosis: Patient Active Problem List Diagnosis Code Left displaced femoral neck fracture ([facility]) S72.002A Fall W19.XXXA ANIYA (acute kidney injury) N17.9 Parkinson's disease ([facility]) G20.A1 Coronary artery disease involving ak chin coronary artery of ak chin heart without angina pectoris I25.10 Hip fracture, left, sequela S72.002S S/P hip hemiarthroplasty Z96.649 Closed fracture of left hip ([facility]) S72.002A Pain Rating: Pt. Denies pain. Cognitive Treatment Treatment time: BUSINESS MANAGEMENT INTERN Individual Minutes Time In: 1315 Time Out: [...] discharge. Treatment completed by: Lenore Vivas M.S. [facility]-BUSINESS MANAGEMENT INTERN * Juan Ramon Lucero MD - 03/15/2025 [...] surface will be helpful. plan communicated to [facility] lynette mauricio Willian marin 2. SPEECH: Cognitive Treatment Treatment time: BUSINESS MANAGEMENT INTERN Individual Minutes Time In: 902 Time Out: [...] Downing Discharge disposition: Plan for discharge to [facility], pending authorization. * Saul Crouch MD [...] disease, CKD stage III. Patient presented to [facility] on 02/25/2025 with complaints of left hip [...] HEMIARTHROPLASTY performed by Ana Downing MD at [facility] OR Current Medications: sodium bicarbonate tablet [...] Partner Violence: Unknown (08/27/2023) Received from [facility] Safety & Environment Fear of Current or [...] - 03/14/2025 1:26 PM EDT IN-PATIENT SERVICE [facility] Progress note Date: 03/14/2025 Patient name: Leanna Nguyễn Date of admission: 02/28/2025 3:30 PM Account: [id number] Date of : 1940 PCP: Pipe Jeffers MD Room: [address] [place] [address] Code Status: Full Code Physician Requesting Consult: Juan Ramon Lucero MD Reason for Consult: medical management Chief Complaint: Medical management History Obtained From: Patient medical record nursing staff History of Present Illness: Patient, has past medical history multiple medical problem, which include coronary artery disease status post CABG, CHF, hypothyroidism, hypertension, hyperlipidemia, pulmonary fibrosis, chronic kidney disease, Parkinson disease, dementia, patient presented to [facility] after a fall, he had left hip pain, found to have acute subcapital left femoral neck fracture, patient underwent left hip hemiarthroplasty on 02/25 While in hospital, patient had worsening creatinine, was evaluated by apiarist, treated with IVfluids, torsemide was kept on hold, patient, creatinine improved to his baseline, Patient required Shell's catheter placement which was later removed Transferred to [facility] rehab unit for further management Past Medical History: History reviewed. No pertinent past medical history. Past Surgical History: Past Surgical History: Procedure Laterality Date HIP SURGERY Left 02/25/2025 HIP HEMIARTHROPLASTY performed by Ana Downing MD at [facility] OR Medications Prior to Admission: Prior to Admission medications Medication Sig Start Date End Date Taking? Authorizing Provider amLODIPine (NORVASC) 2.5 MG tablet Take 1 tablet by mouth daily Ruth Howe MD aspirin 81 MG chewable tablet Take 1 tablet by mouth daily Ruth Howe MD carbidopa-levodopa (SINEMET) 10-100 MG per tablet Take 1 tablet by mouth 3 times daily Ruth Hoew MD cephALEXin (KEFLEX) 500 MG capsule Take [...] documented statin allergies, patient, recently evaluated by glaze supervisor, last LDL was 71 CHF, compensated Parkinson disease, follows closely with neurology as outpatient Dementia on Namenda Hypothyroidism on Synthroid and liothyronine , TSH tested recently is okay Chronic kidney disease, creatinine inproved to 1.8 , diuretics kept on hold, patient evaluated by apiarist starting patient on heparin 5000 every 8 [...] this chart was generated using voice recognition [employer] dictation software. Although every effort was made to ensure the accuracy of this automated confectionery maker, some errors in confectionery maker may have occurred. * Juan Ramon Lucero [...] less pain while standing/walking than in bed. [id number] providing w/c follow. More Ambulation?: No Ambulation [...] surface will be helpful. plan communicated to [facility] lynette Dorsey x 2. SPEECH: Cognitive Treatment Treatment time: BUSINESS MANAGEMENT INTERN Individual Minutes Time In: 902 Time Out: [...] - 03/13/2025 4:52 PM EDT IN-PATIENT SERVICE [facility] Progress note Date: 03/13/2025 Patient name: Leanna Nguyễn Date of admission: 02/28/2025 3:30 PM Account: [id number] Date of : 1940 PCP: Pipe Jeffers [...] disease, Parkinson disease, dementia, patient presented to [facility] after a fall, he had left hip pain, found to have acute subcapital left femoral neck fracture, patient underwent left hip hemiarthroplasty on 02/25 While in hospital, patient had worsening creatinine, was evaluated by apiarist, treated with IVfluids, torsemide was kept on hold, patient, creatinine improved to his baseline, Patient required Shell's catheter placement which was later removed Transferred to [facility] rehab unit for further management Past Medical History: History reviewed. No pertinent past medical history. Past Surgical History: Past Surgical History: Procedure Laterality Date HIP SURGERY Left 02/25/2025 HIP HEMIARTHROPLASTY performed by Ana Downing MD at [facility] OR Medications Prior to Admission: Prior [...] documented statin allergies, patient, recently evaluated by glaze supervisor, last LDL was 71 CHF, compensated Parkinson disease, follows closely with neurology as outpatient Dementia on Namenda Hypothyroidism on Synthroid and liothyronine , TSH tested recently is okay Chronic kidney disease, creatinine inproved to 1.8 , diuretics kept on hold, patient evaluated by apiarist starting patient on heparin 5000 every 8 [...] this chart was generated using voice recognition [employer] dictation software. Although every effort was made to ensure the accuracy of this automated confectionery maker, some errors in confectionery maker may have occurred. * Brianne Rich, TAX REVENUE OFFICER - 03/13/2025 4:41 PM EDT Physical Therapy [facility] Acute Rehabilitation Physical Therapy Treatment Date: 03/13/25 Patient Name: Leanna Nguyễn Room: 2619/2619-01 Account: [id number] : 1940 (84 y.o.) Gender: male Additional [...] bilat. LE ex. 15 reps. AROM and [place] band used Functional Mobility Circuit Training: Functional transfers throughout sessions, RW. Exercise Equipment: [employer] x 15 workload 6 ; seat 13 [...] standing up straight, to go back to LONG TERM Short Term Goals Time Frame for Short [...] TUG test if able using RW-NOT MET Long-Term Goals Time Frame for Long-Term Goals : By d/c Cutter Operator Helper Goal 1: Pt to complete bed mobility sup<>sit with SBA using rail prn- NOT MET Cutter Operator Helper Goal 2: Pt to complete sit to stand, stand pivot and car transfers with RW SBA-NOT MET Long-Term Goal 3: Pt to ambulate with RW for 50 feet or > SBA with cues for safety/posture-NOT MET Long-Term Goal 4: Pt to picking crew supervisor object from floor using technical solutions consultant and UE support on RW with SBA-NOT MET Cutter Operator Helper Goal 5: Pt to improve balance and safety with ambulation as evidence by ability to complete TUG test in 30 seconds or less using RW-NOT MET Additional Goals?: Yes roasterman goal 6: Pt to complete LE supine [...] Mild (not related to nutritional status) Extremities Event Planner Strength: Not Performed Nutrition Assessment: Pt was [...] Measures: Height: 185.4 cm (6' 0.99 ) [place] Body Weight (IBW): 184 lbs (84 kg) [...] Used for Energy Requirements: Admission Energy (kcal/day): 7874-[address] Jeor using 1.2-1.3 factors. Weight Used [...] discharge needs at this time Herlinda Mccoy Open Claims Representative Contact: Cosigned by Yael Barrett RD, LD [...] disease, CKD stage III. Patient presented to [facility] on 02/25/2025 with complaints of left hip [...] HEMIARTHROPLASTY performed by Ana Downing MD at [facility] OR Current Medications: amLODIPine (NORVASC) tablet [...] Partner Violence: Unknown (08/27/2023) Received from [facility] & Environment Fear of Current or [...] you for the consultation. * Bela Roe, BUSINESS MANAGEMENT INTERN - 03/13/2025 10:35 AM EDT Speech Language Pathology [facility] Cognitive Treatment Note Date: 03/13/2025 Patient s Name: Leanna Nguyễn Diagnosis: Patient Active Problem List Diagnosis Code Left displaced femoral neck fracture (HCC) S72.002A Fall W19.XXXA ANIYA (acute kidney injury) N17.9 Parkinson's disease ([facility]) G20.A1 Coronary artery disease involving ak chin coronary artery of ak chin heart without angina pectoris I25.10 Hip fracture, left, sequela S72.002S S/P hip hemiarthroplasty Z96.649 Closed fracture of left hip ([facility]) S72.002A Pain Rating: Pt. Denies pain. Cognitive Treatment Treatment time: BUSINESS MANAGEMENT INTERN Individual Minutes Time In: 902 Time Out: [...] at discharge. Treatment completed by: Bela Roe M.A.CCC/BUSINESS MANAGEMENT INTERN * Juan Ramon Lucero MD - 03/13/2025 [...] less pain while standing/walking than in bed. [id number] providing w/c follow. More Ambulation?: No Ambulation [...] x 2. SPEECH: Cognitive Treatment Treatment time: BUSINESS MANAGEMENT INTERN Individual Minutes Time In: 902 Time Out: [...] disease, CKD stage III. Patient presented to [facility] on 02/25/2025 with complaints of left hip [...] - 03/12/2025 9:41 AM EDT IN-PATIENT SERVICE [facility] Progress note Date: 03/12/2025 Patient name: Leanna Nguyễn Date of admission: 02/28/2025 3:30 PM Account: [id number] Date of : 1940 PCP: Pipe Jeffers MD Room: [facility]2619- Code Status: Full Code Physician Requesting Consult: Juan Ramon Lucero MD Reason for Consult: medical management Chief Complaint: Medical management History Obtained From: Patient medical record nursing staff History of Present Illness: Patient, has past medical history multiple medical problem, which include coronary artery disease status post CABG, CHF, hypothyroidism, hypertension, hyperlipidemia, pulmonary fibrosis, chronic kidney disease, Parkinson disease, dementia, patient presented to [facility] after a fall, he had left hip pain, found to have acute subcapital left femoral neck fracture, patient underwent left hip hemiarthroplasty on 02/25 While in hospital, patient had worsening creatinine, was evaluated by apiarist, treated with IVfluids, torsemide was kept on hold, patient, creatinine improved to his baseline, Patient required Shell's catheter placement which was later removed Transferred to [facility] rehab unit for further management Past Medical History: History reviewed. No pertinent past medical history. Past Surgical History: Past Surgical History: Procedure Laterality Date HIP SURGERY Left 02/25/2025 HIP HEMIARTHROPLASTY performed by Ana Downing MD at [facility] OR Medications Prior to Admission: Prior [...] documented statin allergies, patient, recently evaluated by glaze supervisor, last LDL was 71 CHF, compensated Parkinson disease, follows closely with neurology as outpatient Dementia on Namenda Hypothyroidism on Synthroid and liothyronine , TSH tested recently is okay Chronic kidney disease, creatinine inproved to 1.8 , diuretics kept on hold, patient evaluated by apiarist starting patient on heparin 5000 every 8 [...] this chart was generated using voice recognition [employer] dictation software. Although every effort was made to ensure the accuracy of this automated confectionery maker, some errors in confectionery maker may have occurred. * Ankush Padron MD [...] less pain while standing/walking than in bed. [id number] providing w/c follow. Ambulation 2 Surface - [...] assistance Skilled Clinical Factors: Pt provided w/ technical solutions consultant to greg pants. Req Max A and increased time to thread BLE. w/ min Ax2 to maintain standing balance while automatic typewriter inspector and RN pulled pants over hips. Pt req max cuing for sequencing of tasks & placement of technical solutions consultant. Mobility Bed Mobility Overall Assistance Level: Maximum [...] time of day (stating good morning as automatic typewriter inspector exited). Recall: Category inclusion: 4/10 increased to [...] [facility] OTA - 03/11/2025 3:56 PM EDT [facility] Occupational Therapy Daily Treatment Note Date: 03/11/25 Patient Name: Leanna Nguyễn Room: 2619/2619-01 Account: [id number] : 1940 (84 y.o.) Gender: male Diagnosis: left femoral neck fracture following fall. L hip Hemiarthroplasty , parkinson's. Additional Pertinent Hx: Leanna Nguyễn is a 84 y.o. right-handed male admitted to the [facility] on 02/28/2025. He was originally admitted to [facility] on 02/25/2025 for left femoral neck fracture [...] rehydration. Palliative care brother has power of commonwealth attorney no , no children parents are [...] assistance Skilled Clinical Factors: Pt provided w/ technical solutions consultant to greg pants. Req Max A and increased time to thread BLE. w/ min Ax2 to maintain standing balance while automatic typewriter inspector and RN pulled pants over hips. Pt req max cuing for sequencing of tasks & placement of technical solutions consultant. Mobility Bed Mobility Overall Assistance Level: Maximum [...] 50 % of the time during therapy. Cutter Operator Helper Goals Time Frame for Long-Term Goals : by discharge Cutter Operator Helper Goal 1: mod x 1 LE bathe and dress (with cues, assist provided due to pt poor memory withL hip precautions. ) Long-Term Goal 2: mod x 1 toileting and adl transfers Long-Term Goal 3: concha 6-7 min stand, transfer, amb with BUE support on RW and mod A. Cutter Operator Helper Goal 4: concha 15 reps shld, elbow AROM with mod resistance on R and min on L for BUE strengthening for use during mobility for adls. Long-Term Goal 5: increase MMT B elbow to [...] Diagnosis Code Left displaced femoral neck fracture ([facility]) S72.002A Fall W19.XXXA ANIYA (acute kidney injury) N17.9 Parkinson's disease ([facility]) G20.A1 Coronary artery disease involving ak chin coronary artery of ak chin heart without angina pectoris I25.10 Hip fracture, left, sequela S72.002S S/P hip hemiarthroplasty Z96.649 Closed fracture of left hip ([facility]) S72.002A Pain Rating: Pt. Denies pain. Cognitive Treatment Treatment time: BUSINESS MANAGEMENT INTERN Individual Minutes Time In: 1247 Time Out: [...] time of day (stating good morning as automatic typewriter inspector exited). Recall: Category inclusion: 4/10 increased to [...] discharge. Treatment completed by: Lenore Vivas M.S. CCC-BUSINESS MANAGEMENT INTERN * Roxanne Edward MD - 03/11/2025 10:53 AM EDT IN-PATIENT SERVICE [facility] Progress note Date: 03/11/2025 Patient name: Leanna Nguyễn Date of admission: 02/28/2025 3:30 PM Account: [id number] Date of : 1940 PCP: Pipe Jeffers [...] disease, Parkinson disease, dementia, patient presented to [facility] after a fall, he had left hip pain, found to have acute subcapital left femoral neck fracture, patient underwent left hip hemiarthroplasty on 02/25 While in hospital, patient had worsening creatinine, was evaluated by apiarist, treated with IVfluids, torsemide was kept on hold, patient, creatinine improved to his baseline, Patient required Shell's catheter placement which was later removed Transferred to [facility] rehab unit for further management Past Medical History: History reviewed. No pertinent past medical history. Past Surgical History: Past Surgical History: Procedure Laterality Date HIP SURGERY Left 02/25/2025 HIP HEMIARTHROPLASTY performed by Ana Downing MD at [facility] OR Medications Prior to Admission: Prior [...] Howe MD vitamin D 50 MCG (1999 [place]) CAPS capsule Take 1 capsule by mouth [...] documented statin allergies, patient, recently evaluated by glaze supervisor, last LDL was 71 CHF, compensated Parkinson disease, follows closely with neurology as outpatient Dementia on Namenda Hypothyroidism on Synthroid and liothyronine , TSH tested recently is okay Chronic kidney disease, creatinine inproved to 1.8 , diuretics kept on hold, patient evaluated by apiarist starting patient on heparin 5000 every 8 [address] DVT prophylaxis [address] CT of chest, concerning for pancreatic cyst, need outpatient evaluation by MRCP on nonemergent basis Roxanne Edward MD 03/11/2025 10:53 AM Copy sent to Pipe Doe MD Please note that this chart was generated using voice recognition Zola dictation software. Although every effort was made to ensure the accuracy of this automated confectionery maker, some errors in confectionery maker may have occurred. * Ankush Padron MD [...] less pain while standing/walking than in bed. [id number] providing w/c follow. Balance Balance Posture: Poor [...] agreed to walk in roche to play [employer], but recognizes, w/cues, need to don pants [...] 03/07 after restarting it. Compensated. Pulmonary fibrosis AINYA on CKD stage IIIb: Baseline Cr ~2.1. [...] - 03/10/2025 4:35 PM EDT IN-PATIENT SERVICE [facility] Progress note Date: 03/10/2025 Patient name: Leanna Nguyễn Date of admission: 02/28/2025 3:30 PM Account: [id number] Date of : 1940 PCP: Pipe Jeffers MD Room: [facility]92619- Code Status: Full Code Physician Requesting Consult: Juan Ramon Lucero MD Reason for Consult: medical management Chief Complaint: Medical management History Obtained From: Patient medical record nursing staff History of Present Illness: Patient, has past medical history multiple medical problem, which include coronary artery disease status post CABG, CHF, hypothyroidism, hypertension, hyperlipidemia, pulmonary fibrosis, chronic kidney disease, Parkinson disease, dementia, patient presented to [facility] after a fall, he had left hip pain, found to have acute subcapital left femoral neck fracture, patient underwent left hip hemiarthroplasty on 02/25 While in hospital, patient had worsening creatinine, was evaluated by apiarist, treated with IVfluids, torsemide was kept on hold, patient, creatinine improved to his baseline, Patient required Shell's catheter placement which was later removed Transferred to [place], acute rehab unit for further management Past Medical History: History reviewed. No pertinent past medical history. Past Surgical History: Past Surgical History: Procedure Laterality Date HIP SURGERY Left 02/25/2025 HIP HEMIARTHROPLASTY performed by Ana Downing MD at [facility] OR Medications Prior to Admission: Prior [...] documented statin allergies, patient, recently evaluated by glaze supervisor, last LDL was 71 CHF, compensated Parkinson disease, follows closely with neurology as outpatient Dementia on Namenda Hypothyroidism on Synthroid and liothyronine , TSH tested recently is okay Chronic kidney disease, creatinine inproved to 1.8 , diuretics kept on hold, patient evaluated by apiarist starting patient on heparin 5000 every 8 for DVT prophylaxis Underwent CT of chest, concerning for pancreatic cyst, need outpatient evaluation by MRCP on nonemergent basis Clint Scales MD 03/10/2025 4:36 PM Copy sent to Pipe Doe MD Please note that this chart was generated using voice recognition [employer] dictation software. Although every effort was made to ensure the accuracy of this automated confectionery maker, some errors in confectionery maker may have occurred. * Emeterio Littlejohn OTA - 03/10/2025 3:18 PM EDT [facility] Occupational Therapy Daily Treatment Note Date: 03/10/25 Patient Name: Leanna Nguyễn Room: 2619/2619-01 Account: [id number] : 1940 (84 y.o.) Gender: male Diagnosis: left femoral neck fracture following fall. L hip Hemiarthroplasty , parkinson's. Additional Pertinent Hx: Leanna Nguyễn is a 84 y.o. right-handed male admitted to the [facility] on 02/28/2025. He was originally admitted to [facility] on 02/25/2025 for left femoral neck fracture [...] rehydration. Palliative care brother has power of commonwealth attorney no , no children parents are [...] 50 % of the time during therapy. Long-Term Goals Time Frame for Cutter Operator Helper Goals : by discharge Cutter Operator Helper Goal 1: mod x 1 LE bathe and dress (with cues, assist provided due to pt poor memory withL hip precautions. ) Long-Term Goal 2: mod x 1 toileting and adl transfers Cutter Operator Helper Goal 3: concha 6-7 min stand, transfer, amb with BUE support on RW and mod A. Cutter Operator Helper Goal 4: concha 15 reps shld, elbow AROM with mod resistance on R and min on L for BUE strengthening for use during mobility for adls. Long-Term Goal 5: increase MMT B elbow to [...] Diagnosis Code Left displaced femoral neck fracture ([facility]) S72.002A Fall W19.XXXA ANIYA (acute kidney injury) N17.9 Parkinson's disease ([facility]) G20.A1 Coronary artery disease involving ak chin coronary artery of ak chin heart without angina pectoris I25.10 Hip fracture, left, sequela S72.002S S/P hip hemiarthroplasty Z96.649 Closed fracture of left hip ([facility]) S72.002A Pain Rating: Pt. Denies Cognitive Treatment Treatment time: BUSINESS MANAGEMENT INTERN Individual Minutes Time In: 0930 Time Out: [...] at discharge. Treatment completed by: Bela Roe M.A.CCC/BUSINESS MANAGEMENT INTERN * Ella Arzola MD - 03/10/2025 11:20 [...] disease, CKD stage III. Patient presented to [facility] on 02/25/2025 with complaints of left hip [...] less pain while standing/walking than in bed. [id number] providing w/c follow. More Ambulation?: No OT: [...] - 03/09/2025 4:16 PM EDT Physical Therapy [facility] Physical Therapy Treatment Date: 03/09/25 Patient Name: Leanna Nguyễn Room: 2619/2619-01 Account: [id number] : 1940 (84 y.o.) Gender: male Additional [...] Pt pleasant and cooperative this date with automatic typewriter inspector despite history of limited cooperation Pain Pre-Pain: [...] Bed Mobility Bed mobility Bed Mobility Comments: DENA. Pt was up in wheelchair to begin [...] completed transfers with Max assist x1 with automatic typewriter inspector but recommending 2 assist for safetyin future [...] bilat. LE ex. 15 reps. AROM and [place] band used Functional Mobility Circuit Training: Repeated [...] standing up straight, to go back to LONG TERM Short Term Goals Time Frame for Short [...] TUG test if able using RW-NOT MET Long-Term Goals Time Frame for Long-Term Goals : By d/c Cutter Operator Helper Goal 1: Pt to complete bed mobility sup<>sit with SBA using rail prn- NOT MET Long-Term Goal 2: Pt to complete sit to stand, stand pivot and car transfers with RW SBA-NOT MET Cutter Operator Helper Goal 3: Pt to ambulate with RW for 50 feet or > SBA with cues for safety/posture-NOT MET Cutter Operator Helper Goal 4: Pt to picking crew supervisor object from floor using technical solutions consultant and UE support on RW with SBA-NOT MET Long-Term Goal 5: Pt to improve balance and safety with ambulation as evidence by ability to complete TUG test in 30 seconds or less using RW-NOT MET Additional Goals?: Yes roasterman goal 6: Pt to complete LE supine [...] Roman, OT - 03/09/2025 3:33 PM EDT [facility] Occupational Therapy Daily Treatment Note Date: 03/09/25 Patient Name: Leanna Nguyễn Room: 2619/2619-01 Account: [id number] : 1940 (84 y.o.) Gender: male Diagnosis: left femoral neck fracture following fall. L hip Hemiarthroplasty , parkinson's. Additional Pertinent Hx: Leanna Nguyễn is a 84 y.o. right-handed male admitted to the [facility] on 02/28/2025. He was originally admitted to [facility] on 02/25/2025 for left femoral neck fracture [...] rehydration. Palliative care brother has power of commonwealth attorney no , no children parents are [...] w/c. This pm, post chart review, this automatic typewriter inspector called to set up family training with nievelia Devine due to rn case management notes state she requested this despite planned [...] to less therapy available at SNF. This automatic typewriter inspector referred her to case management. (note sent in chart to rn case management, Radha) Objective Cognition Cognition Arousal/Alertness: Appears intact [...] 50 % of the time during therapy. Cutter Operator Helper Goals Time Frame for Cutter Operator Helper Goals : by discharge Cutter Operator Helper Goal 1: mod x 1 LE bathe and dress (with cues, assist provided due to pt poor memory withL hip precautions. ) Long-Term Goal 2: mod x 1 toileting and adl transfers Long-Term Goal 3: concha 6-7 min stand, transfer, amb with BUE support on RW and mod A. Cutter Operator Helper Goal 4: concha 15 reps shld, elbow AROM with mod resistance on R and min on L for BUE strengthening for use during mobility for adls. Cutter Operator Helper Goal 5: increase MMT B elbow to [...] - 03/09/2025 2:35 PM EDT IN-PATIENT SERVICE [facility] Progress note Date: 03/09/2025 Patient name: Leanna Nguyễn Date of admission: 02/28/2025 3:30 PM Account: [id number] Date of : 1940 PCP: Pipe Jeffers MD Room: [address] [place] [address]- Code Status: Full Code Physician Requesting Consult: Juan Ramon Lucero MD Reason for Consult: medical management Chief Complaint: Medical management History Obtained From: Patient medical record nursing staff History of Present Illness: Patient, has past medical history multiple medical problem, which include coronary artery disease status post CABG, CHF, hypothyroidism, hypertension, hyperlipidemia, pulmonary fibrosis, chronic kidney disease, Parkinson disease, dementia, patient presented to [facility] after a fall, he had left hip pain, found to have acute subcapital left femoral neck fracture, patient underwent left hip hemiarthroplasty on 02/25 While in hospital, patient had worsening creatinine, was evaluated by apiarist, treated with IVfluids, torsemide was kept on hold, patient, creatinine improved to his baseline, Patient required Shell's catheter placement which was later removed Transferred to [place] [facility], acute rehab unit for further management Past Medical History: History reviewed. No pertinent past medical history. Past Surgical History: Past Surgical History: Procedure Laterality Date HIP SURGERY Left 02/25/2025 HIP HEMIARTHROPLASTY performed by Ana Downing MD at [facility] OR Medications Prior to Admission: Prior [...] documented statin allergies, patient, recently evaluated by glaze supervisor, last LDL was 71 CHF, compensated Parkinson disease, follows closely with neurology as outpatient Dementia on Namenda Hypothyroidism on Synthroid and liothyronine , TSH tested recently is okay Chronic kidney disease, creatinine increased to 2, diuretics kept on hold, patient evaluated by apiarist starting patient on heparin 5000 every 8 for DVT prophylaxis Underwent CT of chest, concerning for pancreatic cyst, need outpatient evaluation by MRCP on nonemergent basis Clint Scales MD 03/09/2025 2:35 PM Copy sent to Pipe Doe MD Please note that this chart was generated using voice recognition [employer] dictation software. Although every effort was made to ensure the accuracy of this automated confectionery maker, some errors in confectionery maker may have occurred. * PerezHari fitzpatrickwoodrow Wright - 03/09/2025 12:53 PM EDT Spiritual Health History and Assessment/Progress Note [facility] (P) Spiritual/Emotional Needs, , , Name: Leanna Nguyễn Age: 84 y.o. Sex: male Language: Latvian Gnosticist: Nondenominational Hip fracture, left, sequela Date: 03/09/2025 Total Time Calculated: (P) 12 min Spiritual Assessment began in [facility] Referral/Consult From: (P) Rounding [...] Care: No family/friends present * Lenore Vivas, BUSINESS MANAGEMENT INTERN - 03/09/2025 12:02 PM EDT Speech Language Pathology [facility] Cognitive Treatment Note Date: 03/09/2025 Patient s Name: Leanna Nguyễn Diagnosis: Patient Active Problem List Diagnosis Code Left displaced femoral neck fracture ([facility]) S72.002A Fall W19.XXXA ANIYA (acute kidney injury) N17.9 Parkinson's disease ([facility]) G20.A1 Coronary artery disease involving ak chin coronary artery of ak chin heart without angina pectoris I25.10 Hip fracture, left, sequela S72.002S S/P hip hemiarthroplasty Z96.649 Closed fracture of left hip ([facility]CC) S72.002A Pain Rating: Pt. Denies pain when asked at beginning of session. Pt. Reporting hip pain at end of session and requesting tylenol. RN, Luzmaria, notified. Dr. Thompson rounding and notified as well. Cognitive Treatment Treatment time: BUSINESS MANAGEMENT INTERN Individual Minutes Time In: 1101 Time Out: [...] discharge. Treatment completed by: Lenore Vivas M.S. [facility]-BUSINESS MANAGEMENT INTERN * Megan Thompson MD - 03/09/2025 8:43 [...] completed transfers with Max assist x1 with automatic typewriter inspector but recommending 2 assist for safetyin future [...] currently refusing evening vitals and medications. When automatic typewriter inspector asked why patient stated they just don't want to . Patient was educated on the importance of monitoring vitals and taking medications as scheduled. Plan of care ongoing. * Francoise Whiteside PTA - 03/08/2025 4:02 PM EDT [facility] Physical Therapy Treatment Date: 03/08/25 Patient Name: Leanna Nguyễn Room: 2619/2619-01 Account: [id number] : 1940 (84 y.o.) Gender: male Additional [...] in TUG test if able using RW Cutter Operator Helper Goals Time Frame for Cutter Operator Helper Goals : By d/c Cutter Operator Helper Goal 1: Pt to complete bed mobility sup<>sit with SBA using rail prn Long-Term Goal 2: Pt to complete sit to stand, stand pivot and car transfers with RW SBA Long-Term Goal 3: Pt to ambulate with RW for 50 feet or > SBA with cues for safety/posture Cutter Operator Helper Goal 4: Pt to picking crew supervisor object from floor using technical solutions consultant and UE support on RW with SBA Long-Term Goal 5: Pt to improve balance and safety with ambulation as evidence by ability to complete TUG test in 30 seconds or less using RW FPC goal 6: Pt to complete LE supine [...] - 03/08/2025 2:13 PM EDT IN-PATIENT SERVICE [facility] Progress note Date: 03/08/2025 Patient name: Leanna Nguyễn Date of admission: 02/28/2025 3:30 PM Account: [id number] Date of : 1940 PCP: Pipe Jeffers MD Room: [address] [place] [address] Code Status: Full Code Physician Requesting Consult: Juan Ramon Lucero MD Reason for Consult: medical management Chief Complaint: Medical management History Obtained From: Patient medical record nursing staff History of Present Illness: Patient, has past medical history multiple medical problem, which include coronary artery disease status post CABG, CHF, hypothyroidism, hypertension, hyperlipidemia, pulmonary fibrosis, chronic kidney disease, Parkinson disease, dementia, patient presented to [facility] after a fall, he had left hip pain, found to have acute subcapital left femoral neck fracture, patient underwent left hip hemiarthroplasty on 02/25 While in hospital, patient had worsening creatinine, was evaluated by apiarist, treated with IVfluids, torsemide was kept on hold, patient, creatinine improved to his baseline, Patient required Shell's catheter placement which was later removed Transferred to [facility] rehab unit for further management Past Medical History: History reviewed. No pertinent past medical history. Past Surgical History: Past Surgical History: Procedure Laterality Date HIP SURGERY Left 02/25/2025 HIP HEMIARTHROPLASTY performed by Ana Downing MD at [facility] OR Medications Prior to Admission: Prior [...] documented statin allergies, patient, recently evaluated by glaze supervisor, last LDL was 71 CHF, compensated Parkinson disease, follows closely with neurology as outpatient Dementia on Namenda Hypothyroidism on Synthroid and liothyronine , TSH tested recently is okay Chronic kidney disease, creatinine increased to 2, diuretics kept on hold, patient evaluated by apiarist starting patient on heparin 5000 every 8 for DVT prophylaxis Underwent CT of chest, concerning for pancreatic cyst, need outpatient evaluation by MRCP on nonemergent basis Clint Scales MD 03/08/2025 2:13 PM Copy sent to Pipe Doe MD Please note that this chart was generated using voice recognition [employer] dictation software. Although every effort was made to ensure the accuracy of this automated confectionery maker, some errors in confectionery maker may have occurred. * Herlinda Mccoy - [...] Mild (not related to nutritional status) Extremities Event Planner Strength: Not Performed Nutrition Assessment: RN reports [...] Measures: Height: 185.4 cm (6' 0.99 ) [place] Body Weight (IBW): 184 lbs (84 kg) [...] Used for Energy Requirements: Admission Energy (kcal/day): 0173-[address] Jeor using 1.2-1.3 factors. Weight Used [...] disease, CKD stage III. Patient presented to [facility] on 02/25/2025 with complaints of left hip [...] ANIYA (acute kidney injury) N17.9 Parkinson's disease ([facility]) G20.A1 Coronary artery disease involving ak chin coronary artery of ak chin heart without angina pectoris I25.10 Hip fracture, left, sequela S72.002S S/P hip hemiarthroplasty Z96.649 Closed fracture of left hip (HCC) S72.002A Pain Rating: no c/o pain Pain Location: N/A Non-Pharmaceutical Pain Intervention: N/A Cognitive Treatment Treatment time: BUSINESS MANAGEMENT INTERN Individual Minutes Time In: 929 Time Out: 1000 Minutes: 30 Subjective: [x] Alert [x] Cooperative [] Confused [] Agitated [] Lethargic Objective/Assessment: Attention: Pt required intermittent repetition d/t very [place] Orientation: n/a Recall: n/a Problem Solving/Reasoning: Pt. [...] at discharge. Treatment completed by: Bela Roe M.A.CCC/BUSINESS MANAGEMENT INTERN * Megan Thompson MD - 03/08/2025 9:03 [...] Attention: Pt required intermittent repetition d/t very [place] Orientation: n/a Recall: n/a Problem Solving/Reasoning: Pt. [...] Surgery - Dr. Downing * Brianne Rich, TAX REVENUE OFFICER - 03/07/2025 4:37 PM EDT Physical Therapy [facility] Physical Therapy Treatment Date: 03/07/25 Patient Name: Leanna Nguyễn Room: 2619/2619-01 Account: [id number] : 1940 (84 y.o.) Gender: male Additional [...] bilat. LE ex. 2x10 reps as tolerated. Public Service Administrator demonstrated ex. first. Circulation/Endurance Exercises: Seated UBE [...] in TUG test if able using RW Cutter Operator Helper Goals Time Frame for Cutter Operator Helper Goals : By d/c Long-Term Goal 1: Pt to complete bed mobility sup<>sit with SBA using rail prn Cutter Operator Helper Goal 2: Pt to complete sit to stand, stand pivot and car transfers with RW SBA Long-Term Goal 3: Pt to ambulate with RW for 50 feet or > SBA with cues for safety/posture Long-Term Goal 4: Pt to picking crew supervisor object from floor using technical solutions consultant and UE support on RW with SBA Cutter Operator Helper Goal 5: Pt to improve balance and safety with ambulation as evidence by ability to complete TUG test in 30 seconds or less using RW Additional Goals?: Yes FPC goal 6: Pt to complete LE supine [...] Littlejohn OTA - 03/07/2025 3:13 PM EDT [facility] Occupational Therapy Daily Treatment Note Date: 03/07/25 Patient Name: Leanna Nguyễn Room: 2619/2619-01 Account: [id number] : 1940 (84 y.o.) Gender: male Diagnosis: left femoral neck fracture following fall. L hip Hemiarthroplasty , parkinson's. Additional Pertinent Hx: Leanna Nguyễn is a 84 y.o. right-handed male admitted to the [facility] on 02/28/2025. He was originally admitted to [facility] on 02/25/2025 for left femoral neck fracture [...] rehydration. Palliative care brother has power of commonwealth attorney no , no children parents are [...] performing task for pt with BUE support (rehabilitation attendant SBA) Upper Extremity Dressing Assistance Level: Minimal [...] pt through task for the use of technical solutions consultant to doff/don pants for threading BLE through [...] 50 % of the time during therapy. Cutter Operator Helper Goals Time Frame for Cutter Operator Helper Goals : by discharge Long-Term Goal 1: mod x 1 LE bathe and dress (with cues, assist provided due to pt poor memory withL hip precautions. ) Long-Term Goal 2: mod x 1 toileting and adl transfers Cutter Operator Helper Goal 3: concha 6-7 min stand, transfer, amb with BUE support on RW and mod A. Cutter Operator Helper Goal 4: concha 15 reps shld, elbow AROM with mod resistance on R and min on L for BUE strengthening for use during mobility for adls. Long-Term Goal 5: increase MMT B elbow to [...] - 03/07/2025 3:08 PM EDT IN-PATIENT SERVICE [facility] Progress note Date: 03/07/2025 Patient name: Leanna Nguyễn Date of admission: 02/28/2025 3:30 PM Account: [id number] Date of : 1940 PCP: Pipe Jeffers MD Room: [address] [place] [address] Code Status: Full Code Physician Requesting Consult: Juan Ramon Lucero MD Reason for Consult: medical management Chief Complaint: Medical management History Obtained From: Patient medical record nursing staff History of Present Illness: Patient, has past medical history multiple medical problem, which include coronary artery disease status post CABG, CHF, hypothyroidism, hypertension, hyperlipidemia, pulmonary fibrosis, chronic kidney disease, Parkinson disease, dementia, patient presented to [facility] after a fall, he had left hip pain, found to have acute subcapital left femoral neck fracture, patient underwent left hip hemiarthroplasty on 02/25 While in hospital, patient had worsening creatinine, was evaluated by apiarist, treated with IVfluids, torsemide was kept on hold, patient, creatinine improved to his baseline, Patient required Shell's catheter placement which was later removed Transferred to [place], acute rehab unit for further management Past Medical History: History reviewed. No pertinent past medical history. Past Surgical History: Past Surgical History: Procedure Laterality Date HIP SURGERY Left 02/25/2025 HIP HEMIARTHROPLASTY performed by Ana Downing MD at [facility] OR Medications Prior to Admission: Prior [...] documented statin allergies, patient, recently evaluated by glaze supervisor, last LDL was 71 CHF, compensated Parkinson disease, follows closely with neurology as outpatient Dementia on Namenda Hypothyroidism on Synthroid and liothyronine , TSH tested recently is okay Chronic kidney disease, stable, was recently evaluated by apiarist Starting patient on heparin 5000 every 8 for DVT prophylaxis Underwent CT of chest, 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 Although every effort was made to ensure the accuracy of this automated confectionery maker, some errors in confectionery maker may have occurred. * Kevin Pappas SLP - 03/07/2025 10:41 AM EDT SPEECH LANGUAGE PATHOLOGY Speech Language Pathology [facility] Cognitive Treatment Note Date: 03/07/2025 Patient s Name: Leanna Nguyễn Diagnosis: Patient Active Problem List Diagnosis Code Left displaced femoral neck fracture (HCC) S72.002A Fall W19.XXXA ANIYA (acute kidney injury) N17.9 Parkinson's disease ([facility]) G20.A1 Coronary artery disease involving ak chin coronary artery of ak chin heart without angina pectoris I25.10 Hip fracture, left, sequela S72.002S S/P hip hemiarthroplasty Z96.649 Closed fracture of left hip ([facility]) S72.002A Pain Rating: no c/o pain Pain Location: N/A Non-Pharmaceutical Pain Intervention: N/A Cognitive Treatment Treatment time: BUSINESS MANAGEMENT INTERN Individual Minutes Time In: 934 Time Out: 958 Minutes: 24 Subjective: [x] Alert [x] Cooperative [] Confused [] Agitated [] Lethargic Objective/Assessment: Attention: Pt required intermittent cues/repetition to recall directions/stimuli in structured tasks. Orientation: x3/4 temporal, 2/2 spatial concepts recalled with min A for use of external supports. Recall: Delayed recall: 3/3 CO (strategy instruction.). Problem Solving/Reasoning: Multiple causes for problems: 33% (I), improved to 67% max A. Other: Pt in recliner with alarm attached at end of session. Plan: [x] Continue ST services [] Discharge from ST: Discharge recommendations: [x] Further therapy recommended at discharge. [] No therapy recommended at discharge. Treatment completed by: Kevin Pappas M.S., [facility]-BUSINESS MANAGEMENT INTERN * Megan Thompson MD - 03/07/2025 8:44 [...] of external supports. Recall: Delayed recall: 3/3 CO (strategy instruction.). Problem Solving/Reasoning: Multiple causes for [...] disease, CKD stage III. Patient presented to [facility] on 02/25/2025 with complaints of left hip [...] - 03/06/2025 4:17 PM EDT Physical Therapy [facility] Physical Therapy Treatment Date: 03/06/25 Patient Name: Leanna Nguyễn Room: 2619/2619-01 Account: [id number] : 1940 (84 y.o.) Gender: male Additional [...] session. Family/Caregiver Present: No Referring Practitioner: Dr. eBtancourt Referral Date : 02/28/25 Diagnosis: Left femoral [...] bilat. LE ex. 2x10 reps as tolerated. Public Service Administrator demonstrated ex. first. Circulation/Endurance Exercises: Seated UBE [...] standing up straight, to go back to LONG TERM Short Term Goals Time Frame for Short [...] in TUG test if able using RW Long-Term Goals Time Frame for Long-Term Goals : By d/c Cutter Operator Helper Goal 1: Pt to complete bed mobility sup<>sit with SBA using rail prn Long-Term Goal 2: Pt to complete sit to stand, stand pivot and car transfers with RW SBA Long-Term Goal 3: Pt to ambulate with RW for 50 feet or > SBA with cues for safety/posture Long-Term Goal 4: Pt to picking crew supervisor object from floor using technical solutions consultant and UE support on RW with SBA Long-Term Goal 5: Pt to improve balance and safety with ambulation as evidence by ability to complete TUG test in 30 seconds or less using RW Additional Goals?: Yes FPC goal 6: Pt to complete LE supine [...] Roman, OT - 03/06/2025 3:56 PM EDT [facility] Occupational Therapy Daily Treatment Note Date: 03/06/25 Patient Name: Leanna Nguyễn Room: 2619/2619-01 Account: [id number] : 1940 (84 y.o.) Gender: male Diagnosis: left femoral neck fracture following fall. L hip Hemiarthroplasty , parkinson's. Additional Pertinent Hx: Leanna Nguyễn is a 84 y.o. right-handed male admitted to the [facility] on 02/28/2025. He was originally admitted to [facility] on 02/25/2025 for left femoral neck fracture [...] rehydration. Palliative care brother has power of commonwealth attorney no , no children parents are [...] Tolerated Subjective Subjective Subjective: It was in [place]. pt tells story about work trips and the time he won at the [employer]. Pain: nsg notes pt had recieved pain [...] concha 1 min x 2 this pm imaging account manager lynette stedy with max A x 2. [...] 50 % of the time during therapy. Long-Term Goals Time Frame for Long-Term Goals : by discharge Cutter Operator Helper Goal 1: mod x 1 LE bathe and dress (with cues, assist provided due to pt poor memory withL hip precautions. ) Long-Term Goal 2: mod x 1 toileting and adl transfers Long-Term Goal 3: concha 6-7 min stand, transfer, amb with BUE support on RW and mod A. Long-Term Goal 4: concha 15 reps shld, elbow AROM with mod resistance on R and min on L for BUE strengthening for use during mobility for adls. Cutter Operator Helper Goal 5: increase MMT B elbow to [...] Patient : Leanna Nguyễn; 84 y.o. Location: [facility]9/2619-01 Attending: Juan Ramon Lucero MD Admit Date: [...] disease, CKD stage III. Patient presented to [facility] on 02/25/2025 with complaints of left hip [...] HEMIARTHROPLASTY performed by Ana Downing MD at [facility] OR Current Medications: methocarbamol (ROBAXIN) tablet [...] Partner Violence: Unknown (08/27/2023) Received from [facility] [place] [facility] Fear of [...] disease (HCC) G20.A1 Coronary artery disease involving ak chin coronary artery of ak chin heart without angina pectoris I25.10 Hip fracture, left, sequela S72.002S S/P hip hemiarthroplasty Z96.649 Closed fracture of left hip (HCC) S72.002A Pain Rating: no c/o pain Pain Location: N/A Non-Pharmaceutical Pain Intervention: N/A Cognitive Treatment Treatment time: BUSINESS MANAGEMENT INTERN Individual Minutes Time In: 1110 Time Out: 1136 Minutes: 26 Subjective: [x] Alert [x] Cooperative [] Confused [] Agitated [] Lethargic Objective/Assessment: Attention: Pt required frequent repetition to recall directions/stimuli in structured tasks. ST modified environment to reduce distraction. Orientation: x3/4 temporal, 2/2 spatial concepts recalled with min A for use of external supports. Recall: Delayed recall: 0/3 CO (strategy instruction), improved to 2/3 max A. Organization: Naming by category/initial letter: 50% CO improved to 80% max A. Problem Solving/Reasoning: Recall by attribute: 45% (I) improved to 70% max A. Other: Pt in wheelchair with alarm attached at end of session. Plan: [x] Continue ST services [] Discharge from ST: Discharge recommendations: [x] Further therapy recommended at discharge. [] No therapy recommended at discharge. Treatment completed by: Kevin Pappas M.S., [facility]-BUSINESS MANAGEMENT INTERN * Clint Scales MD - 03/06/2025 12:10 PM EDT IN-PATIENT SERVICE [facility] Progress note Date: 03/06/2025 Patient name: Leanna Nguyễn Date of admission: 02/28/2025 3:30 PM Account: [id number] Date of : 1940 PCP: Pipe Jeffers MD Room: [address] [place] [address] Code Status: Full Code Physician Requesting Consult: Juan Ramon Lucero MD Reason for Consult: medical management Chief Complaint: Medical management History Obtained From: Patient medical record nursing staff History of Present Illness: Patient, has past medical history multiple medical problem, which include coronary artery disease status post CABG, CHF, hypothyroidism, hypertension, hyperlipidemia, pulmonary fibrosis, chronic kidney disease, Parkinson disease, dementia, patient presented to [facility] after a fall, he had left hip pain, found to have acute subcapital left femoral neck fracture, patient underwent left hip hemiarthroplasty on 02/25 While in hospital, patient had worsening creatinine, was evaluated by apiarist, treated with IVfluids, torsemide was kept on hold, patient, creatinine improved to his baseline, Patient required Shell's catheter placement which was later removed Transferred to [facility] rehab unit for further management Past Medical History: History reviewed. No pertinent past medical history. Past Surgical History: Past Surgical History: Procedure Laterality Date HIP SURGERY Left 02/25/2025 HIP HEMIARTHROPLASTY performed by Ana Downing MD at [facility] OR Medications Prior to Admission: Prior [...] documented statin allergies, patient, recently evaluated by glaze supervisor, last LDL was 71 CHF, compensated Parkinson disease, follows closely with neurology as outpatient Dementia on Namenda Hypothyroidism on Synthroid and liothyronine , TSH tested recently is okay Chronic kidney disease, stable, was recently evaluated by apiarist Starting patient on heparin 5000 every 8 [...] this chart was generated using voice recognition [employer] dictation software. Although every effort was made to ensure the accuracy of this automated confectionery maker, some errors in confectionery maker may have occurred. * Juan Ramon Lucero [...] surface will be helpful. plan communicated to [facility] lynette Dorsey x 2. SPEECH: Cognitive Treatment Treatment time: BUSINESS MANAGEMENT INTERN Individual Minutes Time In: 1105 Time Out: [...] Roman OT - 03/05/2025 5:05 PM EDT [facility] Occupational Therapy Daily Treatment Note Date: 03/05/25 Patient Name: Leanna Nguyễn Room: 2619/2619-01 Account: [id number] : 1940 (84 y.o.) Gender: male Diagnosis: left femoral neck fracture following fall. L hip Hemiarthroplasty , parkinson's. Additional Pertinent Hx: Leanna Nguyễn is a 84 y.o. right-handed male admitted to the [facility] on 02/28/2025. He was originally admitted to [facility] on 02/25/2025 for left femoral neck fracture [...] rehydration. Palliative care brother has power of commonwealth attorney no , no children parents are [...] attention to task during extended time playing [employer] with [employer]. OT observed at end of session, pt accurate with placing chips and tracking 2 cards. when reading back his card positions from [employer] , initially correct then states wrong letter, [...] hours this pm. (pt was entertained with [employer] playing [employer]asure[employer] with him. ) Disease-specific Exercises: attempted UE [...] 50 % of the time during therapy. Cutter Operator Helper Goals Time Frame for Long-Term Goals : by discharge Cutter Operator Helper Goal 1: mod x 1 LE bathe and dress (with cues, assist provided due to pt poor memory withL hip precautions. ) Long-Term Goal 2: mod x 1 toileting and adl transfers Cutter Operator Helper Goal 3: concha 6-7 min stand, transfer, amb with BUE support on RW and mod A. Cutter Operator Helper Goal 4: concha 15 reps shld, elbow AROM with mod resistance on R and min on L for BUE strengthening for use during mobility for adls. Long-Term Goal 5: increase MMT B elbow to [...] Out: 1454 Minutes: 35 * Brianne Rich, TAX REVENUE OFFICER - 03/05/2025 4:08 PM EDT Physical Therapy [facility] Physical Therapy Treatment Date: 03/05/25 Patient Name: Leanna Nguyễn Room: 2619/2619-01 Account: [id number] : 1940 (84 y.o.) Gender: male Additional [...] in TUG test if able using RW Long-Term Goals Time Frame for Long-Term Goals : By d/c Long-Term Goal 1: Pt to complete bed mobility sup<>sit with SBA using rail prn Cutter Operator Helper Goal 2: Pt to complete sit to stand, stand pivot and car transfers with RW SBA Cutter Operator Helper Goal 3: Pt to ambulate with RW for 50 feet or > SBA with cues for safety/posture Cutter Operator Helper Goal 4: Pt to picking crew supervisor object from floor using technical solutions consultant and UE support on RW with SBA Cutter Operator Helper Goal 5: Pt to improve balance and safety with ambulation as evidence by ability to complete TUG test in 30 seconds or less using RW Additional Goals?: Yes FPC goal 6: Pt to complete LE supine and seated ther ex for strengthening with min assist using handout Plan of Care Physical Therapy Plan General Plan: (320 minutes per week of combined PT, OT, [...] - 03/05/2025 3:35 PM EDT IN-PATIENT SERVICE [facility] Progress note Date: 03/05/2025 Patient name: Leanna Nguyễn Date of admission: 02/28/2025 3:30 PM Account: [id number] Date of : 1940 PCP: Pipe Jeffers [...] disease, Parkinson disease, dementia, patient presented to [facility] after a fall, he had left hip pain, found to have acute subcapital left femoral neck fracture, patient underwent left hip hemiarthroplasty on 02/25 While in hospital, patient had worsening creatinine, was evaluated by apiarist, treated with IVfluids, torsemide was kept on hold, patient, creatinine improved to his baseline, Patient required Shell's catheter placement which was later removed Transferred to [facility] rehab unit for further management Past Medical History: History reviewed. No pertinent past medical history. Past Surgical History: Past Surgical History: Procedure Laterality Date HIP SURGERY Left 02/25/2025 HIP HEMIARTHROPLASTY performed by Ana Downing MD at [facility] OR Medications Prior to Admission: Prior [...] tablet by mouth daily Ruth oHwe MD potassium chloride (KLOR-CON) 20 MEQ packet [...] documented statin allergies, patient, recently evaluated by glaze supervisor, last LDL was 71 CHF, compensated Parkinson disease, follows closely with neurology as outpatient Dementia on Namenda Hypothyroidism on Synthroid and liothyronine , TSH tested recently is okay Chronic kidney disease, stable, was recently evaluated by apiarist Starting patient on heparin 5000 every 8 [...] MD 03/05/2025 3:35 PM Copy sent to Ppie Doe MD Please note that this chart was generated using voice recognition [employer] dictation software. Although every effort was made to ensure the accuracy of this automated confectionery maker, some errors in confectionery maker may have occurred. * Saul Crouch MD [...] ANIYA (acute kidney injury) N17.9 Parkinson's disease ([facility]) G20.A1 Coronary artery disease involving ak chin coronary artery of ak chin heart without angina pectoris I25.10 Hip fracture, left, sequela S72.002S S/P hip hemiarthroplasty Z96.649 Closed fracture of left hip ([facility]) S72.002A Pain Ratin/10, Pt. Groaning out in pain throughouit session, indicating that his back pain Cognitive Treatment Treatment time: BUSINESS MANAGEMENT INTERN Individual Minutes Time In: 1105 Time Out: [...] discharge. Treatment completed by: Alvaro Burrell M.A., CCC-BUSINESS MANAGEMENT INTERN * Juan Ramon Lucero MD - 03/05/2025 [...] marin 2. SPEECH: Cognitive Treatment Treatment time: BUSINESS MANAGEMENT INTERN Individual Minutes Time In: 1025 Time Out: [...] store), later [employer] game today, going to [employer] event 1x (states like this per nursing). Organization: N/A Problem Solving/Reasoning: Pt is yelling as loud as he can into hallway when confused/in pain earlier this date. Later during session his cell phone rings and despite BUSINESS MANAGEMENT INTERN helping answer the pt shows confusion and [...] at end of ST session. Mostly giving BUSINESS MANAGEMENT INTERN 1 word answers, reduced participation at times and easily frustrated. Extra time spend building rapport which slightlyreduced agitation. BUSINESS MANAGEMENT INTERN needing to repeat stimuli in an attempt [...] Roman, OT - 03/04/2025 4:11 PM EDT [facility] Occupational Therapy Daily Treatment Note Date: 03/04/25 Patient Name: Leanna Nguyễn Room: 2619/2619-01 Account: [id number] : 1940 (84 y.o.) Gender: male Diagnosis: left femoral neck fracture following fall. L hip Hemiarthroplasty , parkinson's. Additional Pertinent Hx: Leanna Nguyễn is a 84 y.o. right-handed male admitted to the [facility] on 02/28/2025. He was originally admitted to [facility] on 02/25/2025 for left femoral neck fracture [...] rehydration. Palliative care brother has power of commonwealth attorney no , no children parents are [...] Factors: TA don shorts over feet and sheeting puller hips from supine. Putting On/Taking Off [...] am: as pt was returned to supine, [email or web address] boots were donned. Static Sitting Balance Exercises: [...] 50 % of the time during therapy. Long-Term Goals Time Frame for Cutter Operator Helper Goals : by discharge Long-Term Goal 1: mod x 1 LE bathe and dress (with cues, assist provided due to pt poor memory withL hip precautions. ) Long-Term Goal 2: mod x 1 toileting and adl transfers Long-Term Goal 3: concha 6-7 min stand, transfer, amb with BUE support on RW and mod A. Cutter Operator Helper Goal 4: concha 15 reps shld, elbow AROM with mod resistance on R and min on L for BUE strengthening for use during mobility for adls. Cutter Operator Helper Goal 5: increase MMT B elbow to [...] Out: 1339 Minutes: 19 * Brianne Rich, TAX REVENUE OFFICER - 03/04/2025 1:09 PM EDT Images from [...] - 03/04/2025 12:21 PM EDT IN-PATIENT SERVICE [facility] CONSULTATION / HISTORY AND PHYSICAL EXAMINATION Date: 03/04/2025 Patient name: Leanna Nguyễn Date of admission: 02/28/2025 3:30 PM Account: [id number] Date of : 1940 PCP: Pipe Jeffers [...] disease, Parkinson disease, dementia, patient presented to [facility] after a fall, he had left hip pain, found to have acute subcapital left femoral neck fracture, patient underwent left hip hemiarthroplasty on 02/25 While in hospital, patient had worsening creatinine, was evaluated by apiarist, treated with IVfluids, torsemide was kept on hold, patient, creatinine improved to his baseline, Patient required Shell's catheter placement which was later removed Transferred to [place], acute rehab unit for further management Past Medical History: History reviewed. No pertinent past medical history. Past Surgical History: Past Surgical History: Procedure Laterality Date HIP SURGERY Left 02/25/2025 HIP HEMIARTHROPLASTY performed by Ana Downing MD at [facility] OR Medications Prior to Admission: Prior [...] tablet Take 1 tablet by mouth daily Rtuh Howe MD potassium chloride (KLOR-CON) 20 MEQ [...] documented statin allergies, patient, recently evaluated by glaze supervisor, last LDL was 71 CHF, compensated Parkinson disease, follows closely with neurology as outpatient Dementia on Namenda Hypothyroidism on Synthroid and liothyronine , TSH tested recently is okay Chronic kidney disease, stable, was recently evaluated by apiarist Starting patient on heparin 5000 every 8 for DVT prophylaxis Under[address] CT of chest, 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 Although every effort was made to ensure the accuracy of this automated confectionery maker, some errors in confectionery maker may have occurred. * Lu Cavanaugh, ISHMAEL - 03/04/2025 10:51 AM EDT SPEECH LANGUAGE PATHOLOGY Speech Language Pathology [facility] Cognitive Treatment Note Date: 03/04/2025 Patient s Name: Leanna Nguyễn Diagnosis: Patient Active Problem List Diagnosis Code Left displaced femoral neck fracture (HCC) S72.002A Fall W19.XXXA ANIYA (acute kidney injury) N17.9 Parkinson's disease ([facility]) G20.A1 Coronary artery disease involving ak chin coronary artery of ak chin heart without angina pectoris I25.10 Hip fracture, left, sequela S72.002S S/P hip hemiarthroplasty Z96.649 Closed fracture of left hip ([facility]) S72.002A Pain Rating: no c/o pain Pain Location: N/A Non-Pharmaceutical Pain Intervention: N/A Had very high pain earlier, RN Sachin aware and keeping ahead with giving pain medication this date. Cognitive Treatment Treatment time: BUSINESS MANAGEMENT INTERN Individual Minutes Time In: 1025 Time Out: [...] store), later [employer] game today, going to [employer] event 1x (states like this per nursing). Organization: N/A Problem Solving/Reasoning: Pt is yelling as loud as he can into hallway when confused/in pain earlier this date. Later during session his cell phone rings and despite BUSINESS MANAGEMENT INTERN helping answer the pt shows confusion and [...] at end of ST session. Mostly giving BUSINESS MANAGEMENT INTERN 1 word answers, reduced participation at times and easily frustrated. Extra time spend building rapport which slightlyreduced agitation. BUSINESS MANAGEMENT INTERN needing to repeat stimuli in an attempt to increase participation but may bed/t reduced comprehension. 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 Plan: [x] Continue ST services [] Discharge from ST: Discharge recommendations: [x] Further therapy recommended at discharge. [] No therapy recommended at discharge. Lu Cavanaugh M.A., [facility]-BUSINESS MANAGEMENT INTERN * Juan Ramon Lucero MD - 03/04/2025 [...] marin 2. SPEECH: Cognitive Treatment Treatment time: BUSINESS MANAGEMENT INTERN Individual Minutes Time In: 1025 Time Out: [...] store), later [employer] game today, going to [employer] event 1x (states like this per nursing). Organization: N/A Problem Solving/Reasoning: Pt is yelling as loud as he can into hallway when confused/in pain earlier this date. Later during session his cell phone rings and despite BUSINESS MANAGEMENT INTERN helping answer the pt shows confusion and [...] at end of ST session. Mostly giving BUSINESS MANAGEMENT INTERN 1 word answers, reduced participation at times and easily frustrated. Extra time spend building rapport which slightlyreduced agitation. BUSINESS MANAGEMENT INTERN needing to repeat stimuli in an attempt [...] extrapolated by contextual diversion. * Brianne Rich, TAX REVENUE OFFICER - 03/03/2025 4:53 PM EDT Physical Therapy [facility] Acute Rehabilitation Physical Therapy Treatment Date: 03/03/25 Patient Name: Leanna Nguyễn Room: 2619/2619-01 Account: [id number] : 1940 (84 y.o.) Gender: male Additional [...] in TUG test if able using RW Long-Term Goals Time Frame for Long-Term Goals : By d/c Long-Term Goal 1: Pt to complete bed mobility sup<>sit with SBA using rail prn Long-Term Goal 2: Pt to complete sit to stand, stand pivot and car transfers with RW SBA Cutter Operator Helper Goal 3: Pt to ambulate with RW for 50 feet or > SBA with cues for safety/posture Cutter Operator Helper Goal 4: Pt to picking crew supervisor object from floor using technical solutions consultant and UE support on RW with SBA Long-Term Goal 5: Pt to improve balance and safety with ambulation as evidence by ability to complete TUG test in 30 seconds or less using RW Additional Goals?: Yes roasterman goal 6: Pt to complete LE supine [...] disease (HCC) G20.A1 Coronary artery disease involving ak chin coronary artery of ak chin heart without angina pectoris I25.10 Hip fracture, left, sequela S72.002S S/P hip hemiarthroplasty Z96.649 Closed fracture of left hip (HCC) S72.002A Pain Rating: no c/o pain Pain Location: N/A Non-Pharmaceutical Pain Intervention: N/A Cognitive Treatment Treatment time: BUSINESS MANAGEMENT INTERN Individual Minutes Time In: 1104 Time Out: 1130 Minutes: 26 Subjective: [x] Alert [x] Cooperative [] Confused [] Agitated [] Lethargic Objective/Assessment: Attention: Pt required frequent repetition to recall directions/stimuli in structured tasks. ST modified environment to reduce distraction. Orientation: x2/4 temporal, 2/2 spatial concepts recalled with min A for use of external supports. Recall: Delayed recall: 0/3 CO (strategy instruction), improved to 1/3 max A. [...] discharge. Treatment completed by: Kevin Pappas M.S., [facility]-BUSINESS MANAGEMENT INTERN * Saul Crouch MD - 03/03/2025 2:40 [...] disease, CKD stage III. Patient presented to [facility] on 02/25/2025 with complaints of left hip [...] HEMIARTHROPLASTY performed by Ana Downing MD at [facility] OR Current Medications: miconazole (MICOTIN) 2 [...] Partner Violence: Unknown (08/27/2023) Received from [facility] Safety & Environment Fear of Current or [...] pullups, pants over hips stand with lynette amuricio. Putting On/Taking Off Footwear: Dependent/Total Putting On/Taking [...] marin 2. SPEECH: Cognitive Treatment Treatment time: BUSINESS MANAGEMENT INTERN Individual Minutes Time In: 1315 Time Out: [...] - 03/03/2025 1:12 PM EDT IN-PATIENT SERVICE [facility] Internal Medicine CONSULTATION / HISTORY AND PHYSICAL EXAMINATION Date: 03/03/2025 Patient name: Leanna Nguyễn Date of admission: 02/28/2025 3:30 PM Account: [id number] Date of : 1940 PCP: Pipe Jeffers [...] disease, Parkinson disease, dementia, patient presented to [facility] after a fall, he had left hip pain, found to have acute subcapital left femoral neck fracture, patient underwent left hip hemiarthroplasty on 02/25 While in hospital, patient had worsening creatinine, was evaluated by apiarist, treated with IVfluids, torsemide was kept on hold, patient, creatinine improved to his baseline, Patient required Shell's catheter placement which was later removed Transferred to [facility] rehab unit for further management Past Medical History: History reviewed. No pertinent past medical history. Past Surgical History: Past Surgical History: Procedure Laterality Date HIP SURGERY Left 02/25/2025 HIP HEMIARTHROPLASTY performed by Ana Downing MD at [facility] OR Medications Prior to Admission: Prior [...] documented statin allergies, patient, recently evaluated by glaze supervisor, last LDL was 71 CHF, compensated Parkinson disease, follows closely with neurology as outpatient Dementia on Namenda Hypothyroidism on Synthroid and liothyronine , TSH tested recently is okay Chronic kidney disease, stable, was recently evaluated by apiarist Starting patient on heparin 5000 every 8 for DVT prophylaxis Underwent CT of chest, 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 Although every effort was made to ensure the accuracy of this automated confectionery maker, some errors in confectionery maker may have occurred. * Abi Wu OTA - 03/02/2025 3:21 PM EDT [facility] Acute Rehabilitation Occupational Therapy Daily Treatment Note Date: 03/02/25 Patient Name: Leanna Nguyễn Room: 2619/2619-01 Account: [id number] : 1940 (84 y.o.) Gender: male Diagnosis: left femoral neck fracture following fall. L hip Hemiarthroplasty , parkinson's. Additional Pertinent Hx: Leanna Nguyễn is a 84 y.o. right-handed male admitted to the [facility] on 02/28/2025. He was originally admitted to [facility] on 02/25/2025 for left femoral neck fracture [...] rehydration. Palliative care brother has power of commonwealth attorney no , no children parents are [...] declined - Pt lying in bed upon automatic typewriter inspector arrival. Does not open eyes when prompted. Public Service Administrator offers OT with pt stating No, not today. I'm sick Public Service Administrator provides education on OT role and POC, asks if pt has any pain. Pt stiffens body and grunts in irritation. Continues to grunt in irritation when automatic typewriter inspector asks any other questions without opening eyes. [...] 50 % of the time during therapy. Long-Term Goals Time Frame for Cutter Operator Helper Goals : by discharge Long-Term Goal 1: mod x 1 LE bathe and dress (with cues, assist provided due to pt poor memory withL hip precautions. ) Long-Term Goal 2: mod x 1 toileting and adl transfers Cutter Operator Helper Goal 3: concha 6-7 min stand, transfer, amb with BUE support on RW and mod A. Cutter Operator Helper Goal 4: concha 15 reps shld, elbow AROM with mod resistance on R and min on L for BUE strengthening for use during mobility for adls. Long-Term Goal 5: increase MMT B elbow to [...] disease, CKD stage III. Patient presented to [facility] on 02/25/2025 with complaints of left hip [...] HEMIARTHROPLASTY performed by Ana Downing MD at [facility] OR Current Medications: heparin (porcine) injection [...] Partner Violence: Unknown (08/27/2023) Received from [facility] [place] Safety & Environment Fear of [...] you for the consultation. * Lenore Vivas BUSINESS MANAGEMENT INTERN - 03/02/2025 2:29 PM EDT Speech Language Pathology [facility]UTE REHAB Cognitive Treatment Note Date: 03/02/2025 Patient s Name: Leanna Nguyễn Diagnosis: Patient Active Problem List Diagnosis Code Left displaced femoral neck fracture ([facility]) S72.002A Fall W19.XXXA ANIYA (acute kidney injury) N17.9 Parkinson's disease ([facility]) G20.A1 Coronary artery disease involving ak chin coronary artery of ak chin heart without angina pectoris I25.10 Hip fracture, left, sequela S72.002S S/P hip hemiarthroplasty Z96.649 Closed fracture of left hip ([facility]) S72.002A Pain Rating: Pt. Groaning out in pain but would not state pain location/give pain rating. Cognitive Treatment Treatment time: BUSINESS MANAGEMENT INTERN Individual Minutes Time In: 1315 Time Out: [...] discharge. Treatment completed by: Lenore Vivas M.S. [facility]-BUSINESS MANAGEMENT INTERN * Babita Martinez PTA - 03/02/2025 2:01 PM EDT Physical Therapy [facility] Acute Rehabilitation Physical Therapy Treatment Date: 03/02/25 Patient Name: Leanna Nguyễn Room: 2619/2619-01 Account: [id number] : 1940 (84 y.o.) Gender: male Additional [...] stating he had no pain when asked. Public Service Administrator started to don compression stocking on R LE. Pt starts to scream out in pain. When automatic typewriter inspector asked pt what was wrong, pt yelled have you ever had your hip replaced?! Public Service Administrator stated pt had L hip replacement and automatic typewriter inspector was donning R compression stocking to whic pt yelled everything hurts ! Pt continues to scream out in pain while automatic typewriter inspector jamey donning B compression stockings. RN came into room to offer pain medication to automatic typewriter inspector. Pt stating its not going to help, just get me a coffin and refuses to take medications. Public Service Administrator tries to encourage pt to get outof bed and pt proceeded to close his eyes and no longer verbally respond to automatic typewriter inspector. Public Service Administrator ended tx. PM: Public Service Administrator eneters room and pt is lying in bed. Pt agreeable to therapy. Public Service Administrator and aide assisted pt to sitting EOB, pt screaming out throughout transfer. Public Service Administrator donned pts pants once sitting EOB while pt calmed down. When automatic typewriter inspector placed lynette stedy in front of pt, [...] in TUG test if able using RW Long-Term Goals Time Frame for Long-Term Goals : By d/c Long-Term Goal 1: Pt to complete bed mobility sup<>sit with SBA using rail prn Long-Term Goal 2: Pt to complete sit to stand, stand pivot and car transfers with RW SBA Cutter Operator Helper Goal 3: Pt to ambulate with RW for 50 feet or > SBA with cues for safety/posture Long-Term Goal 4: Pt to picking crew supervisor object from floor using technical solutions consultant and UE support on RW with SBA Long-Term Goal 5: Pt to improve balance and safety with ambulation as evidence by ability to complete TUG test in 30 seconds or less using RW roasterman goal 6: Pt to complete LE supine [...] of pain and refusing to engage with automatic typewriter inspector) Cosigned by Pat Moran, PT at 03/02/2025 [...] - 03/02/2025 1:54 PM EDT Physical Therapy [facility] Date: 03/02/25 Patient Name: Leanna Nguyễn Room: 2619/2619-01 Account: [id number] : 1940 (84 y.o.) Gender: male Patient [...] pain and cognitive deficits) * Lenore Vivas, BUSINESS MANAGEMENT INTERN - 03/02/2025 11:10 AM EDT Speech Language Pathology [facility] Cognitive Treatment Note Date: 03/02/2025 Patient s Name: Leanna Nguyễn Diagnosis: Patient Active Problem List Diagnosis Code Left displaced femoral neck fracture ([facility]) S72.002A Fall W19.XXXA ANIYA (acute kidney injury) N17.9 Parkinson's disease ([facility]) G20.A1 Coronary artery disease involving ak chin coronary artery of ak chin heart without angina pectoris I25.10 Hip fracture, left, sequela S72.002S S/P hip hemiarthroplasty Z96.649 Closed fracture of left hip ([facility]) S72.002A Pain Rating: Pt. Groaning out in pain but would not state pain location/give pain rating. Cognitive Treatment Treatment time: BUSINESS MANAGEMENT INTERN Individual Minutes Time In: 1028 Time Out: 1040 Minutes: 12 Subjective: [x] Alert [] Cooperative [] Confused [x] Agitated [] Lethargic Objective/Assessment: RN present upon arrival but left shortly after. Public Service Administrator introduced self/role and stated that I worked with him yesterday. Pt. Stated how was it? . Public Service Administrator updated pt. Re: performance on yesterday's tasks. [...] discharge. Treatment completed by: Lenore Vivas M.S. [facility]-BUSINESS MANAGEMENT INTERN * Juan Ramon Lucero MD - 03/02/2025 [...] x 2. SPEECH: Cognitive Treatment Treatment time: BUSINESS MANAGEMENT INTERN Individual Minutes Time In: 1028 Time Out: 1040 Minutes: 12 Subjective: [x] Alert [] Cooperative [] Confused [x] Agitated [] Lethargic Objective/Assessment: RN present upon arrival but left shortly after. Public Service Administrator introduced self/role and stated that I worked with him yesterday. Pt. Stated how was it? . Public Service Administrator updated pt. Re: performance on yesterday's tasks. [...] Roman OT - 03/01/2025 3:59 PM EDT [facility] Occupational Therapy Evaluation Date: 03/01/25 Patient Name: Leanna Nguyễn Room: 2619/2619-01 Account: [id number] : 1940 (84 y.o.) Gender: male Diagnosis: left femoral neck fracture following fall. L hip Hemiarthroplasty , parkinson's. Additional Pertinent Hx: Leanna Nguyễn is a 84 y.o. right-handed male admitted to the [facility] on 02/28/2025. He was originally admitted to [facility] on 02/25/2025 for left femoral neck fracture [...] rehydration. Palliative care brother has power of commonwealth attorney no , no children parents are [...] living apartment) Type of Home: Assisted living ([place]) Home Layout: One level Home Access: Level [...] Level of Assist for Transfers: Independent Patient's Door To Door Lead Generation Info: Krunal Sky Occupation: Retired Le[employer] & [...] is here for rehab and this is [facility] Cognition Overall Cognitive Status: Exceptions Arousal/Alertness: Appears [...] No UE Function Left Hand Strength - Event Planner (lbs) Handle Setting 3: 50, 48- avg 49 lbs Right Hand Strength - Event Planner (lbs) Handle Setting 3: 53, 57, avg [...] surface will be helpful. plan communicated to [facility] lynette mauricio A x 2. OT [...] 50 % of the time during therapy. Long-Term Goals Time Frame for Cutter Operator Helper Goals : by discharge Cutter Operator Helper Goal 1: mod x 1 LE bathe and dress (with cues, assist provided due to pt poor memory withL hip precautions. ) Cutter Operator Helper Goal 2: mod x 1 toileting and adl transfers Cutter Operator Helper Goal 3: concha 6-7 min stand, transfer, amb with BUE support on RW and mod A. Cutter Operator Helper Goal 4: concha 15 reps shld, elbow AROM with mod resistance on R and min on L for BUE strengthening for use during mobility for adls. Long-Term Goal 5: increase MMT B elbow to [...] Out: 1029 Minutes: 84 * Babita Martinez, TAX REVENUE OFFICER - 03/01/2025 3:43 PM EDT Physical Therapy [facility] Physical Therapy Treatment Date: 03/01/25 Patient Name: Leanna Nguyễn Room: 2619/2619-01 Account: [id number] : 1940 (84 y.o.) Gender: male Additional [...] standing up straight, to go back to LONG TERM Short Term Goals Time Frame for Short [...] in TUG test if able using RW Long-Term Goals Time Frame for Long-Term Goals : By d/c Long-Term Goal 1: Pt to complete bed mobility sup<>sit with SBA using rail prn Long-Term Goal 2: Pt to complete sit to stand, stand pivot and car transfers with RW SBA Long-Term Goal 3: Pt to ambulate with RW for 50 feet or > SBA with cues for safety/posture Cutter Operator Helper Goal 4: Pt to picking crew supervisor object from floor using technical solutions consultant and UE support on RW with SBA Cutter Operator Helper Goal 5: Pt to improve balance and safety with ambulation as evidence by ability to complete TUG test in 30 seconds or less using RW roasterman goal 6: Pt to complete LE supine [...] 03/02/2025 7:55 AM EDT * Lenore Vivas, BUSINESS MANAGEMENT INTERN - 03/01/2025 3:24 PM EDT Speech Language Pathology [facility] Cognitive Treatment Note Date: 03/01/2025 Patient s Name: Leanna Nguyễn Diagnosis: Patient Active Problem List Diagnosis Code Left displaced femoral neck fracture (HCC) S72.002A Fall W19.XXXA ANIYA (acute kidney injury) N17.9 Parkinson's disease (HCC) G20.A1 Coronary artery disease involving ak chin coronary artery of ak chin heart without angina pectoris I25.10 Hip fracture, left, sequela S72.002S S/P hip hemiarthroplasty Z96.649 Closed fracture of left hip (HCC) S72.002A Pain Ratin/10, left hip, offered repositioning however pt. Declined. Cognitive Treatment Treatment time: BUSINESS MANAGEMENT INTERN Individual Minutes Time In: 1453 Time Out: [...] Pt. Requesting nurse at end of session; automatic typewriter inspector notified pt. Nurse. Bed alarm in use and calllight left within reach. Plan: [x] Continue services [] Discharge from : Discharge recommendations: [x] Further therapy recommended at discharge. [] No therapy recommended at discharge. Treatment completed by: Lenore Vivas M.S. [facility]-BUSINESS MANAGEMENT INTERN * Bela Roe SLP - 03/01/2025 11:10 AM EDT Facility/Department: [facility] AC[facility] REHAB Initial Speech/Language/Cognitive Assessment NAME: Leanna Nguyễn : 1940 ADMISSION DATE: 02/28/2025 ADMITTING DIAGNOSIS: has Left displaced femoral neck fracture (HCC); Fall; ANIYA (acute kidney injury); Parkinson's disease (HCC); Coronary artery disease involving ak chin coronary artery of ak chin heart without angina pectoris; Hip fracture, left, sequela; S/P hip hemiarthroplasty; and Closed fracture of left hip (HCC) on their problem list. Date of Eval: 03/01/2025 Evaluating Therapist: ISHMAEL Brito Diagnosis/Impressions Speech Therapy Diagnosis Assessment Summary: Pt. demonstrated functional speech and language skills with moderate to severely impaired cognition. Per [facility], pt. has dementia but lives alone [...] Exceptions: Hard of hearing/hearing concerns Recommendations: Requires BUSINESS MANAGEMENT INTERN Intervention: Yes Goals: Short Term Goals Goal 1: Increase functional problem solving and reasoning for ADL tasks to 70% Goal 2: Increase recall for 3-5 units of information to 60%. Patient/family involved in developing goals and treatment plan: family not present Subjective: Primary Complaint: Per PM&R H&P: Leanna Nguyễn is a 84 y.o. right-handed male admitted to the [facility] on 02/28/2025. He was originally admitted to [facility] on 02/25/2025 for left femoral neck fracture [...] rehydration. Palliative care brother has power of commonwealth attorney no , no children parents are Krunal is the only sibling and next of kin reports that his daughter Kimberly is secondary, brother feels he can make his own decision, currently full code He is currently requiring assistance for self-care activities and mobility prompting this admission. Previous level of function and limitations: h/o dementia but lives alone at [place] at baseline Patient assessed for rehabilitation services?: Yes Social Functional Social/Functional History Lives With: Alone (assisted living apartment) Type of Home: Assisted living ([place]) Home Layout: One level Home Access: Level [...] Topic: Results/ recommendations of diagnostic testing;Role of BUSINESS MANAGEMENT INTERN Education Method: Verbal Patient Education Response: Needs reinforcement;Verbalizes understanding Therapy Time: Individual Concurrent Group Co-treatment Time In 1035 Time Out 1056 Minutes 21 * Pat Moran, PT - 03/01/2025 9:40 AM EDT Physical Therapy [facility] Physical Therapy Evaluation Date: 03/01/25 Patient Name: Leanna Nguyễn Room: 2619/2619-01 Account: [id number] : 1940 (84 y.o.) Gender: male Additional [...] living apartment) Type of Home: Assisted living ([place]) Home Layout: One level Home Access: Level [...] was able to complete 2nd sit to imaging account manager parallel bars with mod assist x 1, [...] standing up straight, to go back to LONG TERM Short Term Goals Time Frame for Short [...] in TUG test if able using RW Long-Term Goals Time Frame for Cutter Operator Helper Goals : By d/c Cutter Operator Helper Goal 1: Pt to complete bed mobility sup<>sit with SBA using rail prn Long-Term Goal 2: Pt to complete sit to stand, stand pivot and car transfers with RW SBA Cutter Operator Helper Goal 3: Pt to ambulate with RW for 50 feet or > SBA with cues for safety/posture Long-Term Goal 4: Pt to picking crew supervisor object from floor using technical solutions consultant and UE support on RW with SBA Cutter Operator Helper Goal 5: Pt to improve balance and safety with ambulation as evidence by ability to complete TUG test in 30 seconds or less using RW roasterman goal 6: Pt to complete LE supine [...] at risk for falls (care transferred to [place], OT) PT Minutes Time Code Minutes Timed Code Treatment Minutes: 47 Minutes PT Individual Minutes Time In: 0758 Time Out: 0900 Minutes: 62 * Cailin Johnson RN - 03/01/2025 7:14 AM EDT Images from the original note were not included. ACUTE INPATIENT REHABILITATION ADMISSION [facility] Patient Name: Leanna Nguyễn Ethnicity: Not , /a or Mohawk Origin Race: White Date of Admit: 02/28/2025 [...] rn Nurse 2 Completing Skin Assessment Kl promotions intern consulted for pressure injuries or complex wounds [...] up to date? Yes Click Here for [facility] Definition of Up to Date *Please Note: [...] following documents provided to patient/responsible republican: 1. [facility] Individualized Disclosure Statement 2. Data Collection Information Summary for Patients in Inpatient Rehabilitation Facilities 3. Privacy Act Statement - Health Care Records Care plan was created with patient/responsible republican input and goals were agreed upon. Please refer to the admission navigator for further information. Charting/questions completed by Anjana Riggs RN. Smart Phrase Template Revision: 10/10/2024 documented [facility] [address] [facility]Bon [facility] Dis[facility] instructions* Discharge Instr - Activity* [...] most local grocery stores, pharmacies, and chain [employer]stores. If you have any questions about your [...] Emergency Contact: Krunal Nguyễn Mobile Relation: Brother/Sister Shopper Insights Manager needed? No Past Surgical History: Past Surgical History: Procedure Laterality Date HIP SURGERY Left 02/25/2025 HIP HEMIARTHROPLASTY performed by Ana Downing MD at [facility] OR Immunization History: There is no immunization history on file for this patient. Active Problems: Patient Active Problem List Diagnosis Code Left displaced femoral neck fracture ([facility]) S72.002A Fall W19.XXXA ANIYA (acute kidney injury) N17.9 Parkinson's disease ([facility]) G20.A1 Coronary artery disease involving ak chin coronary artery of ak chin heart without angina pectoris I25.10 Hip fracture, left, sequela S72.002S S/P hip hemiarthroplasty Z96.649 Closed fracture of left hip ([facility]) S72.002A Isolation/Infection: Isolation No Isolation Patient Infection [...] Assisted Dressing Assisted Toileting Assisted Feeding Independent Supervisor Component Assembler Independent Med Delivery whole Wound Care Documentation [...] Status Date: 02/28/25 Readmission Risk Assessment Score: [facility] RISK OF UNPLANNED READMISSION 2.0 13.1 Total Score Discharging to Facility/ Agency Name: .[facility] Address: [address] [place] [address] Diesel Engine Inspector/Head Still Operator signature: PHYSICIAN SECTION Prognosis: Fair Condition at Discharge: Stable Rehab Potential (if transferring to Rehab): Fair Recommended Labs or Other Treatments After Discharge: Physical and occupational therapy for ongoingfunctional deficits related to left hip fracture s/p hemiarthroplasty. Physician Certification: I certify the above information and transfer of Leanna Nguyễn is necessaryfor the continuing treatment of the diagnosis listed and that he requires Long-Term Facility for more than 30 days. Update Admission H&P: No change in H&P PHYSICIAN SIGNATURE: documented in this encounterBon [facility] History of Present illness Narrative* Alison Velez [...] rehab Saul Crouch MD * Cagle, Pinky, NET APPLICATION SUPPORT SPECIALIST - RN TRAUMA - 02/28/2025 10:34 AM EDT Images from the original note were not included. Cardiology Progress Note Jeremiah Lomas MD, Julianna Heller MD, JACK Anaya MD, Shira Cardenas MD, Windy Covington MD, Estella Hatch MD, Alex Sidhu MD, [facility] Date: 02/28/2025 Patient name: Leanna [...] Previous cardiac testing: Echo: Echocardiogram 07/02/2022 at [facility] Left ventricular systolic function normal with EF [...] time, kindlycall with questions. TITUS Josue CNP [facility] [place] Cosigned by Charmaine Anaya MD at 02/28/2025 [...] acute inpatient rehabilitation and meets criteria for [facility] level care once medically stable per primary [...] Parkinson's disease (HCC) Coronary artery disease involving ak chin coronary artery of ak chin heart without angina pectoris Plan: See my [...] Parkinson's disease (HCC) Coronary artery disease involving ak chin coronary artery of ak chin heart without angina pectoris Plan: See my orders Discharge planning Ana Downing MD MD 02/27/2025 2:25 PM * Davina Ho OTA - 02/27/2025 2:19 PM EDT [facility] INPATIENT OCCUPATIONAL THERAPY PROGRESS NOTE Date: 02/27/2025 [...] Call light within reach, Left in bed [facility] Daily Activities Inpatient [facility] Daily Activity - Inpatient How much [...] How much help for eating meals?: None [facility] Inpatient Daily Activity Raw Score: 14 [facility] Inpatient ADL T-Scale Score : 33.39 [...] MD, Estella Hatch MD, Alex Sidhu MD, [facility] Date: 02/27/2025 Patient name: Leanna [...] Previous cardiac testing: Echo: Echocardiogram 07/02/2022 at [facility] Left ventricular systolic function normal with EF [...] okay with nephrology Charmaine Anaya MD, FACP, [facility], FACC, [facility] Interventional Cardiology and Structural Heart Disease [facility] [place] * Malinda Leiva - 02/27/2025 9:31 AM [...] Alba MD - 02/27/2025 8:06 AM EDT [facility] IN-PATIENT SERVICE [facility] Progress note Date: 02/27/2025 Patient name: Leanna Nguyễn Date of admission: 02/25/2025 12:40 AM Account: [id number] Date of : 1940 PCP: Pipe Jeffers [...] heart failure and is current with his glaze supervisor and neurologist. The patient's family wants palliative [...] HEMIARTHROPLASTY performed by Ana Downing MD at [facility] OR Medications Prior to Admission: Prior [...] requiring operative repair, right, closed, initial encounter ([facility]) Active Hospital Problems Diagnosis Date Noted ANIYA (acute kidney injury) [N17.9] 02/26/2025 Parkinson's disease ([facility]) [G20.A1] 02/26/2025 Coronary artery disease involving ak chin coronary artery of ak chin heart without angina pectoris [I25.10] 02/26/2025 Left displaced femoral neck fracture ([facility]) [S72.002A] 02/25/2025 Fall [W19.XXXA] 02/25/2025 Plan: Patient status Admit as inpatient in the [place] Patient is 84-year-old male multiple comorbidities including [...] this chart was generated using voice recognition [employer] dictation software. Although every effort was made to ensure the accuracy of this automated confectionery maker, some errors in confectionery maker may have occurred. * Gina Raymundo RN - 02/26/2025 11:25 PM EDT Patient refused to be turned while laying in bed and ambulating. Public Service Administrator educated patient on the importance of being turned and ambulating. * Jane Escobar OT - 02/26/2025 1:39 PM EDT [facility] Occupational Therapy Evaluation Date: 02/26/25 Patient Name: Leanna Nguyễn Room: Account: [id number] : 1940 (84 y.o.) Gender: male Discharge [...] With: Alone Type of Home: Assisted living ([place]) Home Layout: One level Home Access: Level [...] - 02/26/2025 12:10 PM EDT Physical Therapy [facility] Physical Therapy Evaluation Date: 02/26/25 Patient Name: Leanna Nguyễn Room: Account: [id number] : 1940 (84 y.o.) Gender: male Discharge [...] see if pt qualifies for ARU. DC data processing systems project planner Vianca notified. General Patient assessed for [...] With: Alone Type of Home: Assisted living ([place]) Home Layout: One level Home Access: Level [...] climbing 3-5 steps with a railing?: Total [facility] Inpatient Mobility Raw Score : 6 [facility] Inpatient T-Scale Score : 23.55 Mobility [...] MD, Estella Hatch MD, Alex Sidhu MD, [facility] Date: 02/26/2025 Patient name: Leanna [...] Previous cardiac testing: Echo: Echocardiogram 07/02/2022 at [facility] Left ventricular systolic function normal with EF [...] at bedside. Shira Cardenas MD Interventional Cardiology [facility] [place] * Ruben Alba MD - 02/26/2025 7:54 AM EDT [facility] IN-PATIENT SERVICE [facility] Progress note Date: 02/26/2025 Patient name: Leanna Nguyễn Date of admission: 02/25/2025 12:40 AM Account: [id number] Date of : 1940 PCP: Pipe Jeffers [...] heart failure and is current with his glaze supervisor and neurologist. The patient's family wants palliative [...] HEMIARTHROPLASTY performed by Ana Downing MD at [facility] OR Medications Prior to Admission: Prior [...] Intake/Output Summary (Last 24 hours) at 02/26/2025 0752 Last data filed at 02/26/2025 0605 Gross [...] NEGATIVE Ketones, Urine NEGATIVE NEGATIVE mg/dL Specific [place], UA 1.016 1.000 - 1.030 Urine Hgb [...] requiring operative repair, right, closed, initial encounter ([facility]) Active Hospital Problems Diagnosis Date Noted Left displaced femoral neck fracture ([facility]) [S72.002A] 02/25/2025 Fall [W19.XXXA] 02/25/2025 Plan: Patient [...] this chart was generated using voice recognition Zola dictation software. Although every effort was made to ensure the accuracy of this automated confectionery maker, some errors in confectionery maker may have occurred. * Pinky Vargas RN - 02/25/2025 9:14 PM EDT Patient was able to sit at the side of the bed and stand; took one step and felt wobbly. Safely putpatient back in bed and patient resting comfortably. * Pinky Vargas RN - 02/25/2025 8:22 PM EDT [place] [facility] called for update on patient [...] Escobar OT - 02/25/2025 10:58 AM EDT [facility] OCCUPATIONAL THERAPY MISSED TREATMENT NOTE INPATIENT Date: 02/25/25 Patient Name: Leanna Nguyễn Room: : 1940 (84 y.o.) Gender: male REASON FOR MISSED TREATMENT: Patient unable to participate - Pt with L femur fx after fall at facility. Per ortho, plan is for hemiarthroplasty L hip. Will continue to follow and eval as appropriate. 1007 * Theresa Grider APRN - INDUSTRIAL ELECTRICAL ENGINEER - 02/25/2025 6:10 AM EDT Images from the original note were not included. [facility] Internal Medicine Zheng Mariscal MD; Clint Scales MD; Ana Garcia MD; Roxanne Edward MD; Brenda Rudd MD [facility] Internal Medicine IN-PATIENT SERVICE [facility] Date: 02/25/2025 Patientname: Leanna Nguyễn Date of admission: 02/25/2025 12:40 AM Account: [id number] Date of : 1940 PCP: Pipe Jeffers [...] heart failure and is current with his glaze supervisor and neurologist. The patient's family wants palliative [...] this chart was generated using voice recognition Zola dictation software. Although every effort was made to ensure the accuracy of this automated confectionery maker, some errors in confectionery [place] [address]. * Maira Guthrie RN - 02/25/2025 5:39 AM EDT Public Service Administrator spoke with Arlet from [facility]. Public Service Administrator asked to have pt's medication list faxed to [phone]. She repeated fax number back to automatic typewriter inspector and stated she would fax it prem. TH documented in this encounterBon [facility] Hospital Discharge instructions* Discharge Instr - Activity* [...] at most local grocery stores, pharmacies, and [employer]. If you have any questions about your [...] Emergency Contact: Krunal Nguyễn Mobile Relation: Brother/Sister Shopper Insights Manager needed? No Past Surgical History: Past Surgical History: Procedure Laterality Date HIP SURGERY Left 02/25/2025 HIP HEMIARTHROPLASTY performed by Ana Downing MD at [facility] OR Immunization History: There is no immunization history on file for this patient. Active Problems: Patient Active Problem List Diagnosis Code Left displaced femoral neck fracture (HCC) S72.002A Fall W19.XXXA ANIYA (acute kidney injury) N17.9 Parkinson's disease (HCC) G20.A1 Coronary artery disease involving ak chin coronary artery of ak chin heart without angina pectoris I25.10 Isolation/Infection: Isolation [...] Dependent Dressing Dependent Toileting Dependent Feeding Assisted Supervisor Component Assembler Dependent Med Delivery whole Wound Care Documentation [...] Status Date: 02/25/25 Readmission Risk Assessment Score: [facility] RISK OF UNPLANNED READMISSION 2.0 12.5 Total Score Discharging to Facility/ Agency Name: [facility] Acute [facility] [address] [place] [address] Address: Phone: Fax: Dialysis Facility (if applicable) Name: Address: Dialysis Schedule: Phone: Fax: Diesel Engine Inspector/Head Still Operator signature: PHYSICIAN SECTION Prognosis: {Prognosis:3951535231} Condition at Discharge: { Patient Condition:541342774} Rehab Potential (if transferring to Rehab): {Prognosis:1197300439} Recommended Labs or Other Treatments After Discharge: Physician Certification: I certify the above information and transfer of Leanna Nguyễn is necessaryfor the continuing treatment of the diagnosis listed and that he requires {Admit to Appropriate Level of Care:37438} for {GREATER/LESS:100635949} 30 days. Update Admission H&P: {CHP DME Changes in HandP:775568848} PHYSICIAN SIGNATURE: {Esignature:055406974} * Attachments The following attachments cannot be sent through Care Everywhere. * Acute Kidney Injury (Latvian) * Fall Prevention (Latvian) documented in this encounterBon [facility] Hospital course Narrative* Ruben Alba MD - 02/28/2025 1:15 PM EDT Images from the original note were not included. [facility] Internal Medicine Zheng Mariscal MD; Clint Scales MD, Roxanne Edward MD,Dr. Luc Rudd MD. ; Ana Garcia MD., Ruben Alba MD. [facility] Internal Medicine IN-PATIENT SERVICE [facility] Discharge Summary Patient ID: Leanna Nguyễn : 1940 ACCOUNT: [id number] Patient's PCP: Pipe Jeffers MD Admit Date: 02/25/2025 Discharge Date: 02/28/2025 Length of Stay: 3 Code Status: Full Code Admitting Physician: Zheng Mariscal MD Discharge Physician: Ruben Alba MD Active Discharge Diagnoses: Hospital Problem Lists: Principal Problem (Resolved): Hip fracture requiring operative repair, right, closed, initial encounter ([facility]) Active Problems: Left displaced femoral neck fracture (HCC) Fall ANIYA (acute kidney injury) Parkinson's disease ([facility]) Coronary artery disease involving ak chin coronary artery of ak chin heart without angina pectoris Admission Condition: Serious Discharged Condition: Stable Hospital Stay: Hospital Course: Leanna Nguyễn is a 84 y.o. male who was admitted for the management of Hip fracture requiring operative repair, right, closed, initial encounter ([facility]) , presented to ER with Hip Pain(Left [...] edema no calf tenderness,, Skin no rash VP PLATFORMS no focal neurological deficits Significant therapeutic interventions: [...] , PHART , PH , POCPCO2 , LRD3FUV , PCO2 , POCPO2 , PO2ART , PO2 , POCHCO3 , EAJ0YXO , HCO3 , NBEA , PBEA , BEART , BE , THGBART , THB , FIB4PUT , QPMU5UPO , S2BJPMOJ , O2SAT , FIO2 No results found [...] Discharge plan: Disposition: Discharge/Readmit Physician [facility] [address] [facility] [address] Requiring Further Evaluation/Follow Up POST HOSPITALIZATION/Incidental Findings: [...] this chart was generated using voice recognition [employer] dictation software. Although every effort was made to ensure the accuracy of this automated confectionery maker, some errors in confectionery maker may have occurred. documented in this encounterBon [facility]03-[facility] History of Present illness Narrative* Lydia Burris [...] in about 6 months (around 03/16/2025), or INDUSTRIAL ELECTRICAL ENGINEER. Lab Frequency Next Occurrence History of Present [...] (09/2024, Lesli/Randal) - gen slow Labs - A02=6698/35H/521H/_ Surgery Failed Dx PD Tx Sinemet 25/100 [...] file as of 09/13/2024. Lydia Burris M.D. [facility] Neurology ? [address] ? [place], [place] [address] ? ? fax Neurology ? Clinical Neurophysiology ? Epilepsy ? Sleep Disorders ? Clinical Informatics documented in this encounterFreeman Neosho [id number] History of Present illness Narrative* Lydia Burris [...] Compare vs 2020 study. *Transfer images to [facility].* EEG 1 hour (Abram). * Lydia Burris MD - 07/19/2024 4:00 PM ESTAssociated Problem(s): Parkinson disease ([facility]) Add Sinemet 25/100 po qam x 1 [...] 07/19/2024. Lydia Burris M.D. [facility] ? [address] ? [place], [place] [address] ? ? fax Neurology ? Clinical Neurophysiology ? Epilepsy ? Sleep Disorders ? Clinical Informatics documented in this encounterFreeman Neosho [id number] Miscellaneous Notes* Telephone Encounter - Soniya Shay LPN - 06/16/2024 3:07 PM EST Received the ordered urine culture results and US report from Noris Pinon RN from [facility] where the Pt. Resides. Culture results [...] BID x 7 days. Order faxed to [place] at [phone] as well. Nothing further at this time. [facility] in [facility] Telephone encounter Note* Telephone Encounter - Soniya Shay LPN - 06/16/2024 3:07 PM EST Received the ordered urine culture results and US report from Noris Pinon RN from [facility] where the Pt. Resides. Culture results were very dark and hard to read. This nurse contacted the facility to see if there was any way to email a copy of this to see if it was easier to read. She stated she would try to email it to this nurse. Email was given. Awaiting the results. [facility]12-12-[facility] Telephone encounter Note* Telephone Encounter [...] BID x 7 days. Order faxed to [place] at [phone] as well. Nothing further at this time. [facility]12-04-2024 Miscellaneous Notes* Telephone Encounter - Chadd Gonzalez MD - 06/08/2024 4:28 PM EST [facility] bladder solution. Marcellus. Diagnosis urinary incontinence documented in this encounterKettering [facility]12-04-2024 Telephone encounter Note* Telephone Encounter - Chadd Gonzalez MD - 06/08/2024 4:28 PM EST [facility] bladder solution. Marcellus. Diagnosis urinary incontinence [facility]12-04-2024 History of Present illness Narrative* Chadd Gonzalez MD - 06/08/2024 3:30 PM EST Images from the original note were not included. [address] [place] [address] A [facility] B [facility] [id number] Patient: Leanna Nguyễn Date of : 1940 [...] weakness Hallucinations, unspecified Hyperlipidemia Hypothyroidism Pulmonary fibrosis ([facility]) Unspecified thoracic, thoracolumbar and lumbosacral intervertebral disc [...] - [facility] [place] Urinary incontinence, unspecified type - [facility] [...] without great benefit. Plan: Renal bladder ultrasound. [facility] bladder solution. Digital rectal exam at the [...] you for your understanding. documented in this encounterKettering [facility]11-25-2024 NoteUT Cardiology - [facility] Subjective Leanna Nguyễn is a 83 [...] (premature atrial contraction) Coronary artery disease involving ak chin coronary artery of ak chin heart without angina pectoris Hx of CABG [...] shortness of breath. He lives in a long-term. His blood pressure is elevated today. Review [...] Disp: , Rfl: lev (more content not included)...[facility]12-20-2023 NoteUT Cardiology - [facility] Subjective Leanna Nguyễn is a 82 y.o. year old male patient being seen for 6 mo follow up CAD, hypertension, chronic diastolic heart failure, and carotid artery stenosis. Had routine labs in Mar 2023. Doing well from cardiac standpoint. No recurrent syncope. Patient Active Problem List Diagnosis Chronic diastolic heart failure (CMS/HCC) PAC (premature atrial contraction) Coronary artery disease involving ak chin coronary artery of ak chin heart without angina pectoris Hx of CABG [...] Disp: , Rfl: multivitamin (more content not included)...[facility] 03-23-2023 NoteHNO ID: [id number] Author: Jodi Banerjee, DO Service: ? Author Type: Physician Type: Progress Notes Filed: 03/23/2023 2:41 PM Note Text: [facility] [place] Follow-up visit March 23, 2023 HPI: Overall [...] encounter he has moved and low lives [place] [facility]. He states he does not [...] mainly his brother. He has seen by document review attorney in 01/2023 with suggestion that he get [...] Coronary atherosclerosis of unspecified type of vessel, ak chin or graft 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 Dyslipidemia Hypertension Hypertension Hypothyroid Lumbar disc disease Unspecified hypothyroidism Hypothyroidism PAST SURGICAL HISTORY Procedure Laterality Date PAST SURGICAL HISTORY OF CABG times 6 left internal thoracic artery to the fin-ga-yfhvkz left anterior descending artery, reverse saphenous vein [...] tablet Take 5 (more content not included)... [facility]09-18-2023 Miscellaneous Notes* Telephone Encounter - Terri Garcia [...] advised via voice message to send a [employer] msg if he had any further question. Terri Ricklucía Associate Dentist documented in this encounterZanesville City Hospital09-18-2023 Instructions* Patient Instructions* Jodi Banerjee DO - 03/23/2023 2:40 PM EDT Please sign records release for last blood test results. documented in this encounterZanesville City Hospital09-18-2023 History of Present illness Narrative* Jodi Banerjee DO - 03/23/2023 1:46 PM EDT [facility] [place] Follow-up visit March 23, 2023 HPI: Overall [...] encounter he has moved and low lives [place] [facility]. He states he does not [...] mainly his brother. He has seen by document review attorney in 01/2023 with suggestion that he get a hearing aide but he refuses. After his last encounter he has followed up with cardiology concerning his heart rate that was auscultated on last encounter. They checked his heart rhythm and thought it was appropriate. This was dannya physician in [place]. They deny other changes to his health and/or medications except for the above since our last encounter. PAST MEDICAL HISTORY Diagnosis Date Arthritis Carotid stenosis Coronary artery disease Coronary atherosclerosis of unspecified type of vessel, ak chin or graft 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 Dyslipidemia Hypertension Hypertension Hypothyroid Lumbar disc disease Unspecified hypothyroidism Hypothyroidism PAST SURGICAL HISTORY Procedure Laterality Date PAST SURGICAL HISTORY OF CABG times 6 left internal thoracic artery to the lyq-fd-rgmlog left anterior descending artery, reverse saphenous vein [...] with more than 50% of the total lmrz-ok-xezo time of the visit in counseling / coordination of care. documented in this encounterZanesville City Hospital02-22-2023 NoteHNO ID: [id number] Author: Jodi Banerjee DO Service: ? Author Type: Physician Type: Progress Notes Filed: 08/27/2022 2:35 PM Note Text: [facility] [place] New Patient Consultation August 27, 2022 HPI: [...] 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 [...] Coronary atherosclerosis of unspecified type of vessel, ak chin or graft 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 Dyslipidemia Hypertension Hypertension Hypothyroid Lumbar disc disease Unspecified hypothyroidism Hypothyroidism PAST SURGICAL HISTORY Procedure Laterality Date PAST SURGICAL HISTORY OF CABG times 6 left internal thoracic artery to the gim-rx-ekdxci left anterior descending artery, reverse saphenous vein [...] status: Former Packs/day: 1.0 (more content not included)...[facility] 08-27-2022 History of Present illness Narrative* Jodi Banerjee, - 08/27/2022 1:12 PM EST [facility] [place] New Patient Consultation August 27, 2022 HPI: [...] showering on his own even though at [facility] they take him down, but he has only showered once on his own while there. 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 [...] Coronary atherosclerosis of unspecified type of vessel, ak chin or graft 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 Dyslipidemia Hypertension Hypertension Hypothyroid Lumbar disc disease Unspecified hypothyroidism Hypothyroidism PAST SURGICAL HISTORY Procedure Laterality Date PAST SURGICAL HISTORY OF CABG times 6 left internal thoracic artery to the yhs-cy-dotcip left anterior descending artery, reverse saphenous vein [...] with more than 50% of the total iwac-ma-utgf time of the visit in counseling / coordination of care. [facility] of Past illness Narrative* ProblemNoted DateResolved DateStress iyuimlkilqpfe01/23/2011 06/01/2011 Overview: RHI gtt per ICU protocol Mechanically assisted [id number] Overview: Extubated 05/29/11 no increased work of breathing Fkbievbdrqi29 Overview: Levo off this morning, hemodynamically stable. documented as of this encounter (statuses as of 08/27/2022) [facility] of Past illness Narrative* ProblemNoted Date Diagnosed DateResolved DateStress [id number] Overview: RHI gtt per ICU protocol Mechanically assisted [id number] Overview: Extubated 05/29/11 no increased work of breathing Cqjefegfgzz23 Overview: Levo off this morning, hemodynamically stable. documented as of this encounter (statuses as of 03/24/2023) [facility] History of Past illness Narrative* ProblemNoted Date Diagnosed DateResolved DateStress [id number] Overview: RHI gtt per ICU protocol Mechanically assisted [id number] Overview: Extubated 05/29/11 no increased work of breathing Fkvbrfeosub43 Overview: Levo off this morning, hemodynamically stable. documented as of this encounter (statuses as of 03/24/2023) [facility] Altered mental status, unspecified altered mental status type- Primary Vitamin D deficiency, unspecified [facility] Diagnosis Altered mental status, unspecified altered mental status type- Primary Memory loss [facility] Diagnosis Cognitive decline- Primary Parkinson's disease without dyskinesia or fluctuating manifestations (CMS/HCC) Polyneuropathy Unspecified hereditary and idiopathic peripheral neuropathy documented in this encounter [facility]* Diagnosis Functional urinary incontinence- [...] idiopathic peripheral neuropathy documented in this encounter [facility] Healthcare[facility] note* Diagnosis Hip fracture requiring operative [...] (HCC) Paralysis agitans Coronary artery disease involving ak chin coronary artery of ak chin heart without angina pectoris documented in this encounter [facility] note* Diagnosis Hip fracture, left, sequela- Primary S/P hip hemiarthroplasty Left displaced femoral neck fracture (HCC) Closed fracture of unspecified part of neck of femur Hip fracture, left, sequela S/P hip hemiarthroplasty Closed fracture of left hip (HCC) Closed fracture of unspecified part of neck of femur documented in this encounter [facility] noteNo assessment information available [facility] Work Phone: Evaluation note* Diagnosis Cognitive [...] behavioral disturbance (HCC) documented in this encounter [facility] HealthcareInstructionsNot on filedocumented in this encounterProMedica Health SystemInstructionsNot on filedocumented in this encounterProMedica Health SystemInstructionsNot on filedocumented in this encounterProMountain [facility] Health SystemReason for referral (narrative)No reason for referral information availableThe [facility] Work Phone: Reason for visit Narrative* Auth/CertSpecialty Diagnoses / ProceduresReferred By ContactReferred To Contact Juan Ramon Lucero MD [address], [address] [place] [address] Phone: tel: fax: [facility] [address] [place] [address] Referral IDStatusReasonStart DateExpiration DateVisits RequestedVisits [id number] [facility] Summary Purpose Family History No Family [...] section and content) DATE CREATED AUTHOR 12/29/2017 [facility] DATE CREATED AUTHOR AUTHOR'S ORGANIZ ATION 12/30/2017 [facility] DATE CREATED AUTHOR AUTHOR'S ORGANIZ ATION 08/28/2022 [facility] DATE CREATED AUTHOR AUTHOR'S ORGANIZ ATION 12/12/2022 [facility] DATE CREATED AUTHOR AUTHOR'S ORGANIZ ATION 03/25/2023 [facility] DATE CREATED AUTHOR AUTHOR'S ORGANIZ ATION 06/02/2024 [facility] DATE CREATED AUTHOR AUTHOR'S ORGANIZ ATION 12/21/2024 [facility] DATE CREATED AUTHOR AUTHOR'S ORGANIZ ATION 03/18/2025 [facility] DATE CREATED AUTHOR AUTHOR'S ORGANIZ ATION 05/03/2025 [facility] DATE CREATED AUTHOR AUTHOR'S ORGANIZ ATION 05/10/2025 [facility] Source Comments (unrecognize d section and content) In the event this informatio n is protected by the Federal Confidentiality of Alcohol and Drug Abuse Patient Records regulations: The Federal rules restrict any use of the information to criminally investigate or prosecute any alcohol or drug abuse patient.[facility] the event this information is protected by the Federal Confidentiality of Alcohol and Drug Abuse Patient Records regulations: The Federal rules restrict any use of the information to criminally investigate or prosecute any alcohol or drug abuse patient.[facility] HospitalIn the event this information is protected by the Federal Confidentiality of Alcohol and Drug Abuse Patient Records regulations: The Federal rules restrict any use of the information to criminally investigate or prosecute any alcohol or drug abuse patient.[facility] Reason for Visit (unrecogniz ed section and content) ReasonCommentsNew PatientReasonCommentsFollow UpReasonCommentsMemory LossReason CommentsUrinary IncontinenceSpecialtyDiagnoses / ProceduresReferred By Contact Referred To ContactUrology Diagnoses Other specified disorders of kidney and ureter Urinary incontinence, unspecified type Pipe Jeffers MD [address] [place] [address] Phone: tel:[phone] fax: [facility] [address] [place] [address] [address] [facility] [address] Phone: tel: fax: Referral IDStatusReasonStart DateExpiration DateVisits RequestedVisits [id number] Review Specialty Services Required [id number] declineReasonCommentsHip PainLeft side following fallSpecialtyDiagnoses / ProceduresReferred By ContactReferred To Contact Diagnoses Abnormal chest x-ray ANIYA (acute kidney injury) Fall, initial encounter Hip fracture requiring operative repair, right, closed, initial encounter (HCC) Closed fracture of femur, unspecified fracture morphology, unspecified laterality, unspecified portion of femur, initial encounter ([facility]) Zheng Mariscal MD [address] [place] [address] Phone: tel: fax: [facility] [address] [place] [address] Referral IDStatusReasonStart DateExpiration DateVisits RequestedVisits [id number]'s Disease Care Teams (unrecognized sec tion and content) Team MemberRelationshipSpecialtyStart DateEnd Date Pipe Jeffers MD [address] [place] [address] PCP - Libpofv37/14/11 [facility] [address] [place] [address] Primary Staff PhysicianCardiology09/21/18Team MemberRelationshipSpecialtyStart DateEnd Pipe Jeffers MD [address] [place] [address] PCP - Qqxqgxx03/14/11 [facility] [place] [address] [place] [address] Primary Staff PhysicianCardiology09/21/18Team MemberRelationshipSpecialtyStart DateEnd Pipe Jeffers MD [address] [place] [phone] PCP - Tnjnpte03/14/11 [facility] [place] [address] [place] [address] Primary Staff PhysicianCardiology09/21/18Team MemberRelationshipSpecialtyStart [place] [address] [place] [address] PCP - GeneralFamily Medicine02/25/25Team MemberRelationshipSpecialtyStart [place] [address] [place] [address] PCP - GeneralFamily Medicine02/25/25 Team Status: Inactive Member Role Status Dates Esteban R Bunting , DO Attending Provider Active Start: March 17, 2025 End: March 17, 2025Team MemberRelationshipSpecialtyStart DateEnd Date Pipe Jeffers MD PCP - [facility]10/05/24 Team Status: Inactive Member Role/Relationship Status Dates Esteban Neely DO Attending Provider Active Start: March 17, 2025 End: March 17, 2025NON STAFFPrnovant health [facility] hospitalry Care ProviderActiveStart: March 17, 2025 End: March 17, 2025 Team Status: Inactive Member Role/Relationship Status Dates Esteban Neely DO Attending Provider Active Start: May 03, 2025 End: May 03, 2025Team MemberRelationshipSpecialtyStart DateEnd Date Pipe Jeffers MD PCP - [facility]10/05/24 Scheduled Active and Recently Administ ered Medications [...] RN) * 0742 (Given - Provider: Alison Veelz RN) * 1417 (Given - Provider: Alison [...] Barba RN) * 1649 (Given - Provider: Sahcin Barba RN) * 2052 (Given - Provider: [...] Barba RN) * 205 (Given - Provider: Kalyi Payne LPN) * 1201 (Given - Provider: [...] packet by mouth daily as needed for Jgtgrwdoblsz75/11/2025 miconazole (MICOTIN) 2 % powder Apply topically [...] BE BASED ON THE PRIMARY CLINICAL RECORDS. [facility] [employer] [facility]. provides no warranty or guarantee of the accuracy or completeness of information in this document.
[2025-06-09] MEDS: DIPHTH,PERTUSS(ACELL),TET VAC 0.5 ML SYRINGE IM (17:55)
[2025-06-09 18:09] VITALS: BP 146/88; PULSE 78; O2SAT 95
--- NOTE | 2025-06-09 20:35 | ED.GENADUL1 ---
HPI HPI - General Adult General Chief complaint: Fall Stated complaint: FALL 5 DAYS AGO Time Seen by Provider: 06/09/25 16:14 Source: patient and caregiver Mode of arrival: Wheelchair History of Present Illness HPI narrative: Patient is an 84-year-old male that presents to the emergency department with his niece with complaints of mechanical fall forward off his wheelchair 5 days ago with a head strike. No LOC. He is on aspirin 81 mg. 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 Patient has ecchymosis around his left eye, no tenderness or complaints of pain. No visual changes or mentation changes. Related Data Home Medications ?Medication ?Instructions ?Recorded ?Confirmed aspirin 81 mg tablet,delayed 81 mg PO DAILY 02/05/24 02/21/25 release levothyroxine 100 mcg tablet 100 mcg PO DAILY 02/05/24 02/21/25 liothyronine 5 mcg tablet 5 mcg PO DAILY 02/05/24 02/21/25 B-complex with vitamin C 1 cap PO DAILY 02/21/25 02/21/25 amlodipine 2.5 mg tablet 2.5 mg PO DAILY 02/21/25 02/21/25 bisacodyl 10 mg rectal suppository 10 mg HI DAILY PRN constipation 02/21/25 02/21/25 carbidopa 25 mg-levodopa 100 mg 1 tab PO TID 02/21/25 02/21/25 tablet cholecalciferol (vitamin D3) 50 2,000 unit PO DAILY 02/21/25 02/21/25 mcg (2,000 unit) capsule folic acid 400 mcg tablet 400 mcg PO DAILY 02/21/25 02/21/25 memantine 10 mg tablet 10 mg PO BID 02/21/25 02/21/25 multivitamin 1 tab PO DAILY 02/21/25 02/21/25 polyvinyl alcohol 2 drp ophthalmic (eye) .Q2 PRN dry 02/21/25 02/21/25 eyes sertraline 25 mg tablet 25 mg PO BEDTIME 02/21/25 02/21/25 tolterodine 1 mg tablet 1 mg PO Q12H 02/21/25 02/21/25 donepezil 5 mg tablet 5 mg PO DAILY 02/22/25 02/22/25 Previous Rx's ?Medication ?Instructions ?Recorded acetaminophen 500 mg tablet 500 mg PO Q6H PRN fever or pain #0 02/24/25 (Tylenol Extra Strength) tabs cephalexin 500 mg tablet 500 mg PO BID #20 tabs 02/24/25 potassium chloride 10 mEq 10 meq PO DAILY #30 tabs 02/24/25 tablet,extended release sennosides 8.6 mg-docusate sodium 1 tab PO QD #30 tabs 02/24/25 50 mg tablet (Senna Plus) torsemide 10 mg tablet 10 mg PO QAM #60 tabs 02/24/25 Allergies Allergy/AdvReac Type Severity Reaction Status Date / Time atorvastatin (From Lipitor) Allergy Severe Muscle Pain Verified 02/21/25 18:19 Opioid HPI Opioid Management Most Recent Opioid Data: Last Pain Scale 0 02/24/25, 14:00 Last Pain Intensity 0 02/24/25, 11:47 Last ORT Total Score 0 02/22/25, 00:44 Last ORT Risk Category Low Risk 02/22/25, 00:44 Review of Systems ROS Status of ROS 10 or more systems reviewed and unremarkable except as noted in history and below [facility] Medical History (Updated 06/09/25 @ 17:47 by LUIS Gonzales) Infection of left foot ?L08.9 - Local infection of the skin and subcutaneous tissue, unspecified (ICD-10) Left leg cellulitis ?L03.116 - Cellulitis of left lower limb (ICD-10) Coronary atherosclerosis due to calcified coronary lesion of [place] artery ?I25.10 - Atherosclerotic heart disease of [place] coronary artery without angina pectoris (ICD-10) ?I25.84 - Coronary atherosclerosis due to calcified coronary lesion (ICD-10) Abnormality of gait and mobility ?R26.9 - Unspecified abnormalities of gait and mobility (ICD-10) Overactive bladder ?N32.81 - Overactive bladder (ICD-10) Syncope and collapse ?R55 - Syncope and collapse (ICD-10) Rhabdomyolysis ?M62.82 - Rhabdomyolysis (ICD-10) Hallucination ?R44.3 - Hallucinations, unspecified (ICD-10) Altered mental status ?R41.82 - Altered mental status, unspecified (ICD-10) Muscle weakness (generalized) ?M62.81 - Muscle weakness (generalized) (ICD-10) Hyperlipemia ?E78.5 - Hyperlipidemia, unspecified (ICD-10) Hx of angina pectoris ?Z86.79 - Personal history of other diseases of the circulatory system (ICD-10) Hx of migraine headaches ?Z86.69 - Personal history of other diseases of the nervous system and sense organs (ICD-10) Hx of pulmonary fibrosis ?Z87.09 - Personal history of other diseases of the respiratory system (ICD-10) History of intervertebral disc disorder ?Z87.39 - Personal history of other diseases of the musculoskeletal system and connective tissue (ICD-10) Hx of essential hypertension ?Z86.79 - Personal history of other diseases of the circulatory system (ICD-10) History of hypothyroidism ?Z86.39 - Personal history of other endocrine, nutritional and metabolic disease (ICD-10) Surgical History (Updated 02/22/25 @ 04:04 by Alison Moore) Hx of coronary artery bypass graft ?Z95.1 - Presence of aortocoronary bypass graft (ICD-10) Hx of hernia repair ?Z98.890 - Other specified postprocedural states (ICD-10) ?Z87.19 - Personal history of other diseases of the digestive system (ICD-10) Family History (Updated 02/22/25 @ 01:19 by Alison Moore) Brother Family history of myocardial infarction Family history of stroke Father Family history of myocardial infarction Other Family history of CHF (congestive heart failure) Social History (Updated 02/22/25 @ 01:17 by Alison Moore) Within the past year, how often did you have a drink containing alcohol: never Score interpretation: A score less than 4 is consistent with normal alcohol consumption. Smoking status: Former smoker Non-prescribed substance use: denies use Highest level of school completed/degree received: 12th grade, no diploma Are you now , , , , never or living with a partner: never Little interest or pleasure in doing things: not at all Feeling down, depressed, or hopeless: not at all Feel stressed/tense/nervous/anxious/difficulty sleeping: not at all Do you think of yourself as: straight/heterosexual Gender Identity: male Exam Narrative Exam Narrative: General: No distress, age-appropriate Skin: Warm, dry, no pallor. No rash. Head: Normocephalic, atraumatic. Neck: Supple, non-tender. Eye: Pupils are equal, round and EOMI. No scleral icterus. Lateral periorbital ecchymosis, no swelling, nontender with palpation. Ears, Nose, Mouth, and Throat: No nasal mucosal hypertrophy. Oral mucosa is moist, no posterior oropharynx erythema, uvula is mid-line Cardiovascular: Regular Rate and Rhythm without murmur, gallop or rub. Respiratory: No accessory muscle use or respiratory distress. Lungs are clear to auscultation, no wheezing, rales or rhonchi Chest Wall: no tenderness, midline well-healed surgical scar. Back: No midline thoracic or lumbar vertebral tenderness. Musculoskeletal: Full ROM of all extremities, no calf or popliteal tenderness GI: Abdomen is soft, non-distended, non tender to palpation. No masses appreciated. No rebound, guarding, or rigidity noted. Neurological: A&O x4. No cranial nerve dysfunction observed. No truncal ataxia. Moves all extremities. Sensation intact. Psychiatric: Cooperative and interactive. Normal mood and affect. Constitutional Vital Signs, click to edit/add: Last Vital Signs Temp 97.9 F 06/09/25 15:56 Pulse 78 06/09/25 18:09 Resp 16 06/09/25 18:09 BP 146/88 H 06/09/25 18:09 Pulse Ox 95 06/09/25 18:09 O2 Del Method Room Air 06/09/25 15:56 Documenting provider has reviewed patient's vital signs: yes Course Vital Signs Vital signs: Vital Signs Temperature 97.9 F 06/09/25 15:56 Pulse Rate 68 06/09/25 15:56 Respiratory Rate 18 06/09/25 15:56 Blood Pressure 157/75 H 06/09/25 15:56 Pulse Oximetry 99 06/09/25 15:56 Oxygen Delivery Method Room Air 06/09/25 15:56 Temperature 97.9 F 06/09/25 15:56 Pulse Rate 78 06/09/25 18:09 Respiratory Rate 16 06/09/25 18:09 Blood Pressure 146/88 H 06/09/25 18:09 Pulse Oximetry 95 06/09/25 18:09 Oxygen Delivery Method Room Air 06/09/25 15:56 Medical Decision Making MDM Narrative Medical decision making narrative: The patient is an 84-year-old male who presents following a mechanical fall five days ago with a head strike, resulting in bruising and a subcutaneous hematoma to his forehead. Given his use of aspirin 81 mg and the mechanism of injury, the decision was made to perform a CT scan of the head and cervical spine, which did not reveal any traumatic injuries or intracranial abnormalities. There is left frontal soft tissue swelling with a subcutaneous hematoma, consistent with the reported injury. The patient also has ecchymosis around his left eye and CT Max/Face was considered, but there is no tenderness or swelling around the eye socket, and he denies any visual changes or cognitive alterations. Given the lack of tenderness or swelling around the eye and stable vitals, it is believed that the periorbital ecchymosis is due to hematoma migration from the forehead, rather than an isolated orbital injury. The patient remains alert and oriented, with a [place] Coma Scale (GCS) of 15 throughout his ER course. TDAP was updated given the healing wound on his forehead as he could not tell me if he was up to date or not. Results discussed with patient and his niece (over the phone as she had to leave) and all questions answered. Patient discharged in stable condition with plan for follow up with PCP. Differential Diagnosis Differential Diagnosis: Intracranial hemorrhage, cervical fracture, skull fracture Imaging Data CT scan - head: Attestation: I have reviewed the pertinent imaging results. Radiologist's impression: ITS Impressions Head CT 06/09/25 16:21 IMPRESSION: NO ACUTE INTRACRANIAL ABNORMALITY. CHRONIC SMALL VESSEL AND CENTRAL INVOLUTIONAL CHANGES IDENTIFIED. LEFT FRONTAL SOFT TISSUES SWELLING AND SUBCUTANEOUS HEMATOMA. Impression dictated by: Melchor Pruett M.D. 06/09/2025 5:14 PM Dictation Location: [employer] Electronically authenticated by: [id number] Y Date: 06/09/2025 17:[address] 06/09/25 16:22 IMPRESSION: NO CERVICAL SPINE FRACTURE MULTILEVEL DEGENERATIVE CHANGES. Impression dictated by: Melchor Pruett M.D. 06/09/2025 5:37 PM Dictation Location: [employer] Electronically authenticated by: [id number] Y Date: 06/09/2025 17:37 Discharge Plan Discharge Chief Complaint: Fall Clinical Impression: Traumatic hematoma of forehead, Fall, Abrasion of forehead Patient Disposition: Home, Self-Care Time of Disposition Decision: 17:45 Condition: Good Mode of Transportation: Private Vehicle Prescriptions / Home Meds: No Action amlodipine 2.5 mg tablet 2.5 mg PO DAILY carbidopa-levodopa 25-100 mg tablet 1 tab PO TID folic acid 400 mcg tablet 400 mcg PO DAILY memantine 10 mg tablet 10 mg PO BID multivitamin Tablet 1 tab PO DAILY sertraline 25 mg tablet 25 mg PO BEDTIME tolterodine 1 mg tablet 1 mg PO Q12H B-complex with vitamin C Capsule 1 cap PO DAILY cholecalciferol (vitamin D3) 50 mcg (2,000 unit) capsule 2,000 unit PO DAILY polyvinyl alcohol [Artificial Tears Plus] 2 drp ophthalmic (eye) .Q2 PRN (Reason: dry eyes) bisacodyl 10 mg suppository 10 mg HI DAILY PRN (Reason: constipation) donepezil 5 mg tablet 5 mg PO DAILY sennosides-docusate sodium [Senna Plus] 8.6-50 mg Tablet 1 tab PO QD Qty: 30 1RF torsemide 10 mg tablet 10 mg PO QAM Qty: 60 2RF acetaminophen [Tylenol Extra Strength] 500 mg tablet 500 mg PO Q6H PRN (Reason: fever or pain) Qty: 0 0RF cephalexin 500 mg tablet 500 mg PO BID Qty: 20 0RF potassium chloride 10 mEq tablet extended release 10 meq PO DAILY Qty: 30 0RF aspirin 81 mg tablet,delayed release (DR/EC) 81 mg PO DAILY levothyroxine 100 mcg tablet 100 mcg PO DAILY liothyronine 5 mcg tablet 5 mcg PO DAILY Print Language: Solomon Islander Instructions: Hematoma (ED) Additional Instructions: CT scan of the head and cervical spine completed today. No intracranial hemorrhage. There is a hematoma of the soft tissue of the forehead. Tdap (for Tetanus) was updated given the abrasion sustained during the fall. No cervical spine fracture. Referrals: Marcelo Hopkins MD [Primary Care Provider, Family Practice] - 1 week Discharge Date/Time: 06/09/25 18:15
== END 2025-06-09 18:15 | disposition home or self-care (01) ==
PROVIDERS: Emergency Provider Emergency Medicine; PCP Family Medicine
DX: S00.83XA Contusion of other part of head, initial encounter (principal); S00.81XA Abrasion of other part of head, initial encounter; W05.0XXA Fall from non-moving wheelchair, initial encounter; Z79.82 Long term (current) use of aspirin
CPT/HCPCS: 70450; 72125; 76376; 90471; 90715; 99284